=== PATIENT | female | born 1985 | race Caucasian/White ===

== ENCOUNTER 2021-04-28 21:13 | Emergency (ER) | payer OTHER ==
[2021-04-28 22:24] LABS: Absolute Lymphocytes (CBC) 2.4 K/uL (0.7-4.9); Basophils % 1.1 % (0-1.3); Hematocrit 28.6 % (36.0-45.0); Lymphocytes % 33.2 % (15.3-44.8); MPV 8.3 fL (7.6-11.3)
[2021-04-28 22:39] LABS: ALT/SGPT 20 U/L (12-78); AST/SGOT 17 U/L (15-37); Albumin 4.1 g/dL (3.4-5.0); Alkaline Phosphatase 72 U/L (45-117); BUN Blood Urea Nitrogen 24 mg/dL (7-18); Bicarbonate 30 mmol/L (21-32); Bilirubin Direct < 0.1 mg/dL (0-0.2); Bilirubin Total 0.1 mg/dL (0.2-1.0); Glucose Level 89 mg/dL (74-106); Lipase 98 U/L (73-393); NT PRO-BNP 145 pg/mL (<125); Potassium 3.6 mmol/L (3.5-5.1); Protein, Total 8.1 g/dL (6.4-8.2); Sodium Level 136 mmol/L (136-145)
[2021-04-28] MEDS ORDERED: FUROSEMIDE 40 MG/4 ML VIAL ONE (22:42)
[2021-04-28 23:26] LABS: Blood Morphology Comment NOTED (NOT SEEN); Platelet Estimate ADEQ; White Blood Cell Scan OK (OK)
[2021-04-28 23:27] LABS: Hypochromasia 1+; Polychromasia 1+
--- NOTE | 2021-04-29 01:22 | ER ---
Nurse's Notes [facility] Name: Divina Collazo Age: 35 yrs Sex: Female : 1985 Arrival Date: 04/28/2021 Time: 21:17 Bed 26 Private MD: Diagnosis: Constipation, unspecified;Unspecified cirrhosis of liver;Edema, unspecified Presentation: 04/28 21:35 Chief complaint: Patient states: abd pain/ generalized swelling. Coronavirus screen: df1 Vaccine status: Patient reports receiving the 1st dose of the Covid vaccine. The client denies any previous COVID testing. Ebola Screen: Patient negative for fever greater than or equal to 101.5 degrees Fahrenheit, and additional compatible Ebola Virus Disease symptoms Patient denies exposure to infectious person. Patient denies travel to an Ebola-affected area in the 21 days before illness onset. Initial Sepsis Screen: Does the patient meet any 2 criteria? No. Patient's initial sepsis screen is negative. Does the patient have a suspected source of infection? No. Patient's initial sepsis screen is negative. Risk Assessment: Do you want to hurt yourself or someone else? Patient reports no desire to harm self or others. Onset of symptoms was April 27, 2021. 21:35 Method Of Arrival: Ambulatory df1 21:35 Acuity: GABBY 3 df1 21:43 Note Pt states swelling in abd and BLE since yesterday. Dx with Cirrhosis last Mar df2019. Recently out of assisted and not being treated for this issue. 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 - Social history:: Smoking status: Patient reports the use of cigarette tobacco products, smokes one pack cigarettes per day. Patient uses alcohol, quit last march. street drugs, marijuana, on suboxone since Mar 2021. In recovery of alcohol, marijuana.. - Family history:: not pertinent. - Code Status:: Full code. - Hospitalizations: : No recent hospitalization is reported. Screenin:10 Abuse screen: Denies threats or abuse. Nutritional screening: No deficits noted. cc4 Tuberculosis screening: No symptoms or risk factors identified. Fall Risk None identified. Assessment: 22:10 General: Appears uncomfortable, Behavior is calm, cooperative. Pain: Complains of pain cc4 in abdomen Pain currently is 7 out of 10 on a pain scale. Neuro: No deficits noted. Level of Consciousness is awake, alert, obeys commands, Oriented to person, place, time, situation. 22:10 Respiratory: No deficits noted. Airway is patent Breath sounds are clear bilaterally. cc4 GI: Abdomen is distended, Firm \\T\\ tender. Bowel sounds present X 4 quads. Reports "normal" BM's x 2 yesterday. GI: Reports new onset of abdominal swelling \\T\\ discomfort since yesterday; ascites noted. : No signs and/or symptoms were reported regarding the genitourinary system. EENT: No signs and/or symptoms were reported regarding the EENT system. Derm: No deficits noted. No signs and/or symptoms reported regarding the dermatologic system. Reports Patient reports urinating with no difficulty. Musculoskeletal: Reports Swelling of BLE x 6 months that dissipates when elevating legs; new onset of ascites since yesterday. 22:10 GI: Firm \\T\\ tender; ascites noted. cc4 22:10 General: Reports presently taking suboxone; reports being released from assisted 4 days ago.cc4 22:17 Reassessment: Lasix 40 mg given slow IVP. cc4 22:20 General: PCXR completed per rad. tech.. cc4 23:[address]essment: Returned from CT via stretcher; voices no complaints; up \\T\\ ambulatory to cc4 BR; reports voiding x 3 with no difficulty; reports feeling better and "less tight" across abdomen. 04/29 00:15 Reassessment: Patient appears in no apparent distress at this time. Ambulatory to BR cc4 with no difficulty; reports voiding. Vital Signs: 04/28 21:35 BP 110 / 72; Pulse 94; Resp 18; Temp 98.2; Pulse Ox 100% on R/A; Weight 49.9 kg; Height df1 5 ft. 5 in. (165.10 cm); Pain 8/10; 23:45 BP 90 / 57; Pulse 88; Resp 18; Pulse Ox 99% on R/A; cc4 04/29 01:00 BP 100 / 62; Pulse 70; Resp 18; Pulse Ox 100% on R/A; cc4 02:05 BP 104 / 64; Pulse 91; Resp 20; Temp 98.4(O); Pulse Ox 100% on R/A; cc4 04/28 21:35 Body Mass Index 18.30 (49.90 kg, 165.10 cm) df1 ED Course: 04/28 21:17 Patient arrived in ED. wm 21:37 Triage completed. df1 21:58 Patient has correct armband on for positive identification. Placed in gown. Bed in low wg position. Call light in reach. Side rails up X2. Adult w/ patient. dam attendant on. Pulse ox on. NIBP on. 21:58 Labs ordered per protocol. Drawn by ED staff. cc4 21:58 Inserted saline lock: 20 gauge in right forearm, using aseptic technique. Blood wg collected. 22:00 Agustin Torres MD is Attending Physician. rn 22:15 María Childs, MATILDA is Primary Nurse. cc4 22:16 Basic Metabolic Panel Sent. cc4 22:23 XRAY Chest (1 view) In Process Unspecified. EDMS 22:23 Basic Metabolic Panel Sent. cc4 22:23 XRAY Chest (1 view) Sent. cc4 22:23 BNP Sent. cc4 22:23 Basic Metabolic Panel Sent. cc4 22:23 CBC with Diff Sent. cc4 22:23 Hepatic Function Sent. cc4 22:23 Lipase Sent. cc4 22:52 CT Abd/Pelvis - IV Contrast Only Sent. cc4 23:40 CT Abd/Pelvis - IV Contrast Only In Process Unspecified. EDMS 23:40 CT of abdomen completed per automotive tire technician. cc4 04/29 02:05 PCXR \\T\\ CT of abd completed. cc4 02:05 No provider procedures requiring assistance completed. cc4 02:05 IV discontinued, intact, bleeding controlled, No redness/swelling at site. Pressure cc4 dressing applied. Administered Medications: 02:23 Discontinued: NS 0.9% 500 ml IV at bolus once cc4 04/28 22:17 Drug: Lasix (furosemide) 40 mg Route: IVP; Site: right forearm; cc4 04/29 01:30 Drug: NS 0.9% 500 ml Route: IV; Rate: bolus; Site: right forearm; cc4 02:05 Follow up: IV Intake: 500ml cc4 01:30 Drug: Magnesium Citrate Liquid 300 ml Route: PO; cc4 02:05 Follow up: Urine output 1200 ml; Response: No adverse reaction cc4 Intake: 02:05 IV: 500ml; Total: 500ml. cc4 Output: 02:05 Urine: 1200ml; Total: 1200ml. cc4 Outcome: 01:21 Discharge ordered by . rn 02:05 Discharged to home with significant other. cc4 02:05 Condition: improved 02:05 Discharge instructions given to patient, Instructed on discharge instructions, follow up and referral plans. Demonstrated understanding of instructions, follow-up care. 02:26 Patient left the ED. cc4 Signatures: Dispatcher [employer] EDMS Agustin Torres MD MD rn Marsh, Wendy wm Gamba, Liam, RN wg Cooper, Christie, RN RN cc4 Elise Lozano df1 Corrections: (The following items were deleted from the chart) 00:02 04/28 22:45 BP 90 / 57; Pulse 88bpm; Resp 18bpm; Pulse Ox 99% RA; cc4 cc4
--- NOTE | 2021-04-29 01:22 | EDPHYS ---
Physician Documentation [facility] Name: Divina Collazo Age: 35 yrs Sex: Female : 1985 Arrival Date: 04/28/2021 Time: 21:17 Bed 26 Private MD: ED Physician Agustin Torres HPI: 04/28 23:57 This 35 yrs old Female presents to ER via Ambulatory with complaints of rn Abdominal Swelling, Cirrhosis of the liver. 23:57 Patient reports abdominal swelling and swelling of legs, has cirrhosis of the liver, rn diagnosed 1 year ago, states fluid slowly building up. Denies fever. Denies abdominal pain. No vomiting. No blood in stool. Not currently taking any diuretic. Told to follow-up with GI and she has not.. Onset: The symptoms/episode began/occurred at an unknown time. Severity of symptoms: At their worst the symptoms were moderate in the emergency department the symptoms are unchanged. The patient has experienced a previous episode. The patient has not recently seen a physician. Reports just got out of prison and is seeking care now.. 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 - Social history:: Smoking status: Patient reports the use of cigarette tobacco products, smokes one pack cigarettes per day. Patient uses alcohol, quit last march. street drugs, marijuana, on suboxone since Mar 2021. In recovery of alcohol, marijuana.. - Family history:: not pertinent. - Code Status:: Full code. - Hospitalizations: : No recent hospitalization is reported. ROS: 23:57 Constitutional: Negative for fever, chills, and weight loss, Eyes: Negative for injury, rn pain, redness, and discharge, ENT: Negative for injury, pain, and discharge, Neck: Negative for injury, pain, and swelling, Cardiovascular: Positive for edema bilateral lower extremities. Denies chest pain Respiratory: Negative for shortness of breath, cough, wheezing, and pleuritic chest pain, Abdomen/GI: Negative for abdominal pain/nausea/vomiting/diarrhea. Positive for abdominal swelling : Negative for injury, bleeding, discharge, and swelling, MS/Extremity: 1+ pitting edema bilateral lower extremities with equal circumference Skin: Negative for injury, rash, and discoloration, Neuro: Negative for headache, weakness, numbness, tingling, and seizure. Exam: 23:58 Constitutional: Thin female with protuberant abdomen and in no acute distress rn Head/Face: Normocephalic, atraumatic. Eyes: Periorbital areas with no swelling, redness, or edema. ENT: No stridor Cardiovascular: Regular rate and rhythm. No pulse deficits. Respiratory: Speaking full sentences, unlabored. No increased work of breathing, no retractions or nasal flaring. Abdomen/GI: Soft, positive fluid wave, no peritoneal signs, no masses Skin: Warm, dry with normal turgor. Normal color with no rashes, no lesions, and no evidence of cellulitis. MS/ Extremity: Pulses equal, no cyanosis. Neurovascular intact. Full, normal range of motion. Equal circumference. 1+ pitting edema bilateral lower extremities Neuro: Awake and alert, GCS 15 Vital Signs: 21:35 BP 110 / 72; Pulse 94; Resp 18; Temp 98.2; Pulse Ox 100% on R/A; Weight 49.9 kg; Height df1 5 ft. 5 in. (165.10 cm); Pain 8/10; 23:45 BP 90 / 57; Pulse 88; Resp 18; Pulse Ox 99% on R/A; cc4 04/29 01:00 BP 100 / 62; Pulse 70; Resp 18; Pulse Ox 100% on R/A; cc4 02:05 BP 104 / 64; Pulse 91; Resp 20; Temp 98.4(O); Pulse Ox 100% on R/A; cc4 04/28 21:35 Body Mass Index 18.30 (49.90 kg, 165.10 cm) df1 MDM: 04/28 22:00 Patient medically screened. rn 04/29 01:19 Differential Diagnosis constipation, ascites, cirrhosis, edema. Data reviewed: vital rn signs, nurses notes, lab test result(s), radiologic studies, CT scan, and as a result, I will discharge patient. Counseling: I had a detailed discussion with the patient and/or guardian regarding: the historical points, exam findings, and any diagnostic results supporting the discharge/admit diagnosis, lab results, radiology results, the need for outpatient follow up, to return to the emergency department if symptoms worsen or persist or if there are any questions or concerns that arise at home. Response to treatment: the patient's symptoms have mildly improved after treatment, and as a result, I will discharge patient. Special discussion: Based on the patient's Hx, exam, and Dx evaluation, there is no indication for emergent surgery or inpatient Tx. It is understood by the patient/guardian that if the Sx's persist or worsen they need to return immediately for re-evaluation. I discussed with the patient/guardian in detail that at this point there is no indication for admission to the hospital. It is understood, however, that if the symptoms persist or worsen the patient needs to return immediately for re-evaluation. ED course: CT does not show any ascites. Most of her fluid is on the lower extremities. CT does show marked constipation that could explain abdominal distention without any tenderness. Patient states has gone to the bathroom a few times here now and abdomen seems decompressed. Sleeping comfortably without complaints. Will DC home to continue hydration and laxatives. Return precautions given and understood. 04/28 22:11 Order name: Basic Metabolic Panel rn 04/28 22: Order name: CBC with Diff; Complete Time: 23:52 rn 04/28 22: Order name: Hepatic Function; Complete Time: 23:52 rn 04/28 22:11 Order name: Lipase; Complete Time: 23:52 rn 04/28 22:11 Order name: BNP; Complete Time: 23:52 rn 04/28 22:11 Order name: Basic Metabolic Panel; Complete Time: 23:52 EDMS 04/28 22:11 Order name: IV Saline Lock; Complete Time: 22:23 rn 04/28 22:11 Order name: Labs collected and sent; Complete Time: 22:23 rn 04/28 22: Order name: CT Abd/Pelvis - IV Contrast Only rn 04/28 22:11 Order name: XRAY Chest (1 view) rn 04/28 22:27 Order name: CBC Smear Scan; Complete Time: 23:52 EDMS Administered Medications: 02:23 Discontinued: NS 0.9% 500 ml IV at bolus once cc4 04/28 22:17 Drug: Lasix (furosemide) 40 mg Route: IVP; Site: right forearm; cc4 04/29 01:30 Drug: NS 0.9% 500 ml Route: IV; Rate: bolus; Site: right forearm; cc4 02:05 Follow up: IV Intake: 500ml cc4 01:30 Drug: Magnesium Citrate Liquid 300 ml Route: PO; cc4 02:05 Follow up: Urine output 1200 ml; Response: No adverse reaction cc4 Disposition Summary: 04/29/21 01:21 Discharge Ordered Location: Home rn Problem: new rn Symptoms: have improved rn Condition: Stable rn Diagnosis - Constipation, unspecified rn - Unspecified cirrhosis of liver rn - Edema, unspecified rn Followup: rn - With: Private Physician - When: As needed - Reason: Recheck today's complaints, Re-evaluation by your physician Discharge Instructions: - Discharge Summary Sheet rn - Cirrhosis rn - Constipation, Adult rn - Peripheral Edema rn Forms: - Medication Reconciliation Form rn - Thank You Letter rn - Antibiotic technology development intern - Prescription Opioid Use rn Signatures: Dispatcher [employer] EDAgustin Best MD MD rn Cooper, Christie, RN RN cc4 Elise Lozano df1
[2021-04-29] MEDS ORDERED: NA CHLORIDE 0.9% 500 ML ONE (01:58)
[2021-04-29] MEDS ORDERED: MAGNESIUM CITRATE 300 ML BOT ONE (01:58)
[2021-04-29 02:46] VITALS: O2SAT 100
[2021-04-29 02:47] VITALS: BP 104/64; TEMP 98.4
--- NOTE | 2021-04-29 07:57 | RAD REPORT ---
EXAM DESCRIPTION: RAD - Chest Single View - 04/28/2021 10:23 pm CLINICAL HISTORY: cirrhosis COMPARISON: No comparisons FINDINGS: Lines: None. Lungs: No evidence of edema or pneumonia. Pleural: No significant pleural effusions or pneumothorax. Cardiac: The heart size is within normal limits. Bones: No acute fractures. Scoliosis. Other: IMPRESSION: No acute cardiopulmonary disease.
--- NOTE | 2021-04-29 16:53 | RAD REPORT ---
EXAM DESCRIPTION: CT - Abdomen Pelvis W Contrast - 04/29/2021 6:42 am CLINICAL HISTORY: Abd swelling, cirrhosis COMPARISON: None. TECHNIQUE: CT ABDOMEN PELVIS WITH IV CONTRAST on 04/28/2021 10:11 PM CDT This exam was performed according to our departmental dose-optimization program, which includes autom ated exposure control, adjustment of the mA and/or kV according to patient size and/or use of iterati ve reconstruction technique. FINDINGS: Lower lungs are clear. Abdomen: The liver is normal in appearance. There is no biliary dilatation. Gallbladder is normal in appearance. The pancreas and spleen are normal in appearance. The adrenal glands and kidneys are unre markable. Abdominal aorta is normal in course and caliber without aneurysm. There is no free air. There is no r etroperitoneal adenopathy. Pelvis: There is large amount of stool throughout the colon. Urinary bladder is unremarkable. There i s no free fluid. Uterus is normal in size. Appendix is normal. Skeleton: There are no acute osseous findings. No suspicious bony lesions. IMPRESSION: Constipation. Electronically signed by: Сергей Staples MD 04/28/2021 11:58 PM CDT Due to temporary technical issues with the PACS/Fluency reporting system, reports are being signed by the in house radiologists without review as a courtesy to insure prompt reporting. The interpreting radiologist is fully responsible for the content of the report.
== END 2021-04-29 02:26 | disposition home or self-care (01) ==
LOC: ER 21:13
DX: K59.00 Constipation, unspecified (principal); K74.60 Unspecified cirrhosis of liver; I10 Essential (primary) hypertension; E11.9 Type 2 diabetes mellitus without complications; F17.210 Nicotine dependence, cigarettes, uncomplicated
CPT/HCPCS: 85025; 80048; 36415; 80076; 83690; 83880; 74177; 71045; 96374; 99284; Q9967; J1940; J7040

== ENCOUNTER 2021-10-26 21:02 | Emergency (ER) | payer OTHER ==
--- OUTSIDE RECORDS SUMMARY | 2021-10-26 21:12 | XMS REPORT | Continuity of Care Document ---
:[address] [facility] t Address [address] [place] [address] Care Team Providers Name Role Phone Pcp, Does Not Have A Primary Care Physician Yuri HOPKINS Attending Clinician Unavailable Sandeep PITT, Yuri Attending Clinician Sameera Eisenberg DO Attending Clinician Sameera EISENBERG Attending Clinician Unavailable James PAC, S Attending Clinician DC, S Attending Clinician Unavailable Doctor Unassigned, Name Attending Clinician Unavailable Trevon RUBY Attending Clinician Singer BURKS Attending Clinician Attending Clinician Unavailable BAYLEE COTTON Attending Clinician Unavailable Zeus RUBY Attending Clinician Andrés Sherwood MD Attending Clinician Andrés SHERWOOD Attending Clinician Unavailable Luis Galindo Attending Clinician Luis PAIZ Attending Clinician Unavailable Bhanu CHUN Attending Clinician Unavailable BAYLEE COTTON Admitting Clinician Unavailable Luis PAIZ Admitting Clinician Unavailable Payers Payer Name Policy Type Policy Number Effective Date Expiration Date Benigno sena [facility] [id number] 2020 00:00:00 Problems Condition Condition Condition Status Onset Resolution Last Treating Co mments Source Name Details Category Date Date Treatment Clinician Date ABD PAIN Diagnosis Active 2020-09-13 M emoria 09-13 13:06:00 l ABD PAIN 00:00: Rehan n 00 Active 09/13/2020 [facility] [place] CIRRHOSIS Diagnosis Active 2020-09-14 Memoria 09-13 15:28:00 l 00:00: [place] CIRRHOSIS 00 Active 09/13/2020 [facility] [place] FOOT PAIN Diagnosis Active 2020-01-27 Memoria 01-26 17:42:00 l FOOT 00:00: [place] PAIN 00 Active 01/27/2020 [facility] [place] UNSPECIFIE Diagnosis Active 2020-09-14 Memoria D 15:28:00 l CIRRHOSIS [place] OF LIVER UNSPECIFIE D CIRRHOSIS OF LIVER Active [facility] No known No known Disease Unive rs active active ity of problems problems [facility] History of Past Illness Condition Condition Condition Status Onset Resolution Last Treating Co mments Source Name Details Category Date Date Treatment Clinician Date Contusion Problem 2020-01-29 2020-01-29 Memoria of left 01-26 22:22:21 22:22:21 l foot, 17:00: [place] initial Contusion 00 encounter of left foot, initial encounter 01/27/2020 01/29/2020 [facility] Allergies, Adverse Reactions, Alerts Allergy Allergy Status Severity Reaction(s) Onset Inactive Treating Comm ents Source Name Type Date Date Clinician Propoxyp Propensi Active Hives Univer s hene ty to 8-06 ity of N-Acetam adverse 00:00: [place] inophen reaction 00 Medical s Branch PROPOXYP DRUG Active Hives Univers HENE 8-06 ity of N-ACETAM 00:00: [place] INOPHEN 00 Medical Branch Darvocet Darvocet Active Memori a -N 100 -N 100 l [place] Social History Social Habit Start Date Stop Date Quantity Comments Source Exposure to Yes [facility] SARS-CoV-2 (event) Medica l Branch Social History 2020-09-14 2020-09-14 [facility] 03:06:05 03:06:05 Sex Ass[birth year] At [birth year] [facility] 00:00:00 00:00:00 Medical Branch Smoking Status Start Date Stop Date Source Unknown if ever smoked [facility] Medications Ordered Filled Start Stop Current Ordering Indication Dosage Frequency Signature Comments Components Source Medication Medication Date Date Medication? Clinician (SIG) Name Name naproxen 2020- No 500mg 500 mg, Univ ers (NAPROSYN) 03-18 Oral, ity of tablet 500 08:30: 07:45 ONCE, 1 [place] as mg 00 :00 dose, [facility] 03/18/21 at Branch 0330, Routine naproxen 2020- No 500mg 500 mg, Univ ers (NAPROSYN) 03-18 Oral, ity of tablet 500 08:30: 07:45 ONCE, 1 [place] as mg 00 :00 dose, [facility] 03/18/21 at Branch 0330, Routine ketorolac 2020- No 15mg 15 mg, Unive rs (TORADOL) 03-13 Slow IV ity of injection 21:32: 21:44 Push, [place] 15 mg 00 :00 ONCE, 1 Medical dose, Sat [place] 03/13/21 at 1645, AUSTEN
Fa culty member approving Restricted medication : MAGUIJONN LAMAELIJAH ketorolac 2020- No 15mg 15 mg, Unive rs (TORADOL) 03-13 Slow IV ity of injection 21:32: 21:44 Push, [place] 15 mg 00 :00 ONCE, 1 Medical dose, Sat Branch 03/13/21 at 1645, AUSTEN
Fa culty member approving Restricted medication : MAGUISANDY LAMA ibuprofen Yes [id number] 600mg Take 1 U nivers 600 mg 8-28 tablet by ity of tablet 00:00: mouth [place] 00 every 6 Medical (six) Branch hours as needed for Pain (scale 4-6). ibuprofen Yes [id number] 600mg Take 1 U nivers 600 mg 8-28 tablet by ity of tablet 00:00: mouth [place] 00 every 6 Medical (six) Branch hours as needed for Pain (scale 4-6). ibuprofen 2020-0 Yes [id number] 600mg Take 1 U nivers 600 mg 8-28 tablet by ity of tablet 00:00: mouth [place] 00 every 6 Medical (six) Branch hours as needed for Pain (scale 4-6). ibuprofen 2020-0 Yes [id number] 600mg Take 1 U nivers 600 mg 8-28 tablet by ity of tablet 00:00: mouth [place] 00 every 6 Medical (six) Branch hours as needed for Pain (scale 4-6). ibuprofen Yes [id number] 600mg Take 1 U nivers 600 mg 8-28 tablet by ity of tablet 00:00: mouth [place] 00 every 6 Medical (six) Branch hours as needed for Pain (scale 4-6). ibuprofen Yes [id number] 600mg Take 1 U nivers 600 mg 8-28 tablet by ity of tablet 00:00: mouth [place] 00 every 6 Medical (six) Branch hours as needed for Pain (scale 4-6). ibuprofen Yes [id number] 600mg Take 1 U nivers 600 mg 8-28 tablet by ity of tablet 00:00: mouth [place] 00 every 6 Medical (six) Branch hours as needed for Pain (scale 4-6). iopamidol 2020- No [id number] 100mL 100 mL, Univers (ISOVUE 5- 05-07 Intravenou ity o f 370-500 mL) 09:48: 10:00 s, ONCE, 1 [place] injection 00 :00 dose, Fri Medic al 100 mL 11/20/20 at Branch 0500, Routine iopamidol 2020- No [id number] 100mL 100 mL, Univers (ISOVUE 5-07 05-07 Intravenou ity o f 370-500 mL) 09:48: 10:00 s, ONCE, 1 [place] injection 00 :00 dose, Fri Medic al 100 mL 11/20/20 at Branch 0500, Routine ferrous Yes Acute on 325mg Take 1 Uni vers sulfate 5-07 chronic tablet by ity of (IRON) 325 00:00: anemia mouth 3 [place] mg (65 mg 00 (three) Medical iron) times Branch tablet daily with meals. ferrous Yes [id number] 325mg Take 1 Un frida sulfate 5-07 tablet by ity of (IRON) 325 00:00: mouth [place] mg (65 mg 00 (three) Medical iron) times Branch tablet daily with meals. ferrous 2020-0 Yes [id number] 325mg Take 1 Un frida sulfate 5-07 tablet by ity of (IRON) 325 00:00: mouth [place] mg (65 mg 00 (three) Medical iron) times Branch tablet daily with meals. ferrous Yes [id number] 325mg Take 1 Un frida sulfate 5-07 tablet by ity of (IRON) 325 00:00: mouth [place] mg (65 mg 00 (three) Medical iron) times Branch tablet daily with meals. ferrous Yes [id number] 325mg Take 1 Un frida sulfate 5-07 tablet by ity of (IRON) 325 00:00: mouth [place] mg (65 mg 00 (three) Medical iron) times Branch tablet daily with meals. ferrous Yes [id number] 325mg Take 1 Un frida sulfate 5-07 tablet by ity of (IRON) 325 00:00: mouth [place] mg (65 mg 00 (three) Medical iron) times Branch tablet daily with meals. ferrous Yes [id number] 325mg Take 1 Un fr[place] sulfate 5-07 tablet by ity of (IRON) 325 00:00: mouth [place] mg (65 mg 00 (three) Medical iron) times Branch tablet daily with meals. ferrous Yes [id number] 325mg Take 1 Un frida sulfate 5-07 tablet by ity of (IRON) 325 00:00: mouth [place] mg (65 mg 00 (three) Medical iron) times Branch tablet daily with meals. ferrous Yes [id number] 325mg Take 1 Un frida sulfate 5-07 tablet by ity of (IRON) 325 00:00: mouth [place] mg (65 mg 00 (three) Medical iron) times Branch tablet daily with meals. Chlordiazep 0 No 50 mg, 2 Me moria oxide 3-03 cap, l 22:00: Route: PO, Drug form: CAP, Q24H, Dosing Weight 50, kg, Start date: 09/16/20 16:00:00 UX VISUAL DESIGNER, Duration: 24 hr, Stop date: 09/16/20 16:00:00 UX VISUAL DESIGNER, 0 Chlordiazep 0 No 50 mg, 2 Me moria oxide 3-03 cap, l 22:00: Route: PO, Drug form: CAP, Q24H, Dosing Weight 50, kg, Start date: 09/16/20 16:00:00 UX VISUAL DESIGNER, Duration: 24 hr, Stop date: 09/16/20 16:00:00 UX VISUAL DESIGNER, 0 Chlordiazep 2021-0 No 50 mg, 2 Me moria oxide 3-03 cap, l 22:00: Route: PO, [place] 00 Drug form: CAP, Q24H, Dosing Weight 50, kg, Start date: 09/16/20 16:00:00 UX VISUAL DESIGNER, Duration: 24 hr, Stop date: 09/16/20 16:00:00 UX VISUAL DESIGNER, 0 Chlordiazep 2021-0 No 50 mg, 2 Me moria oxide 3-03 cap, l 03:00: Route: PO, [place] 00 Drug form: CAP, Q12H, Dosing Weight 50, kg, Start date: 09/15/20 21:00:00 UX VISUAL DESIGNER, Duration: 24 hr, Stop date: 09/16/20 9:00:00 UX VISUAL DESIGNER, 0 Chlordiazep 2021-0 No 50 mg, 2 Me moria oxide 3-03 cap, l 03:00: Route: PO, [place] 00 Drug form: CAP, Q12H, Dosing Weight 50, kg, Start date: 09/15/20 21:00:00 UX VISUAL DESIGNER, Duration: 24 hr, Stop date: 09/16/20 9:00:00 UX VISUAL DESIGNER, 0 Chlordiazep 2021-0 No 50 mg, 2 Me moria oxide 3-03 cap, l 03:00: Route: PO, [place] 00 Drug form: CAP, Q12H, Dosing Weight 50, kg, Start date: 09/15/20 21:00:00 UX VISUAL DESIGNER, Duration: 24 hr, Stop date: 09/16/20 9:00:00 UX VISUAL DESIGNER, 0 remove 2020- No Notes: Memoria patch 3-02 Remove old l 15:00: patch [place] before applicatio n of new patch. WASTE: F/P - P Waste Black; E - P Waste Black remove No Notes: Memoria patch 3-02 Remove old l 15:00: patch [place] 00 before applicatio n of new patch. WASTE: F/P - P Waste Black; E - P Waste Black remove 2020- No Notes: Memoria patch 3-02 Remove old l 15:00: patch [place] 00 before applicatio n of new patch. WASTE: F/P - P Waste Black; E - P Waste Black Chlordiazep No 50 mg, 2 Me moria oxide 3-01 cap, l 22:00: Route: PO, [place] 00 Drug form: CAP, Q8H, Dosing Weight 50, kg, Start date: 09/14/20 16:00:00 UX VISUAL DESIGNER, Duration: 24 hr, Stop date: 09/15/20 8:00:00 UX VISUAL DESIGNER, 0 Chlordiazep 0 No 50 mg, 2 Me moria oxide 3-01 cap, l 22:00: Route: PO, Drug form: CAP, Q8H, Dosing Weight 50, kg, Start date: 09/14/20 16:00:00 UX VISUAL DESIGNER, Duration: 24 hr, Stop date: 09/15/20 8:00:00 UX VISUAL DESIGNER, 0 Chlordiazep 0 No 50 mg, 2 Me moria oxide 3-01 cap, l 22:00: Route: PO, Drug form: CAP, Q8H, Dosing Weight 50, kg, Start date: 09/14/20 16:00:00 UX VISUAL DESIGNER, Duration: 24 hr, Stop date: 09/15/20 8:00:00 UX VISUAL DESIGNER, 0 Folic Acid No Notes: Memor ia 3- (Same as: l 15:00: Folvite) multivitami No 1 tab, Theo makayla n 3- Route: PO, l 15:00: Dosing Weight 50, kg, Daily, Start date: 09/14/20 9:00:00 UX VISUAL DESIGNER, Duration: 5 day, Stop date: 09/18/20 9:00:00 UX VISUAL DESIGNER Thiamine No Notes: Memoria 3- (Same As: l 15:00: Vitamin B1) multivitami No Notes: Theo makayla n with 3- (Same l minerals 15:00: as:Thera-M Her berkowitz 00 , Theragran- M) WASTE: F/P - Black; E - Municipal Trash Bin Give with food. Folic Acid No Notes: Memor ia 3- (Same as: l 15:00: Folvite) multivitami No 1 tab, Theo makayla n 3-01 Route: PO, l 15:00: Dosing [place] Weight 50, kg, Daily, Start date: 09/14/20 9:00:00 UX VISUAL DESIGNER, Duration: 5 day, Stop date: 09/18/20 9:00:00 UX VISUAL DESIGNER Thiamine No Notes: Memoria 3-01 (Same As: l 15:00: Vitamin [place] 00 B1) multivitami No Notes: Theo makayla n with 3- (Same l minerals 15:00: as:Thera-Christopher Dudley berkowitz 00 , Theragran- M) WASTE: F/P - Black; E - Municipal Trash Bin Give with food. Folic Acid No Notes: Memor ia 3- (Same as: l 15:00: Folvite) multivitami No 1 tab, Theo makayla n 3- Route: PO, l 15:00: Dosing [place] 00 Weight 50, kg, Daily, Start date: 09/14/20 9:00:00 UX VISUAL DESIGNER, Duration: 5 day, Stop date: 09/18/20 9:00:00 UX VISUAL DESIGNER Thiamine No Notes: Memoria 3- (Same As: l 15:00: Vitamin [place] 00 B1) multivitami No Notes: Theo makayla n with 3- (Same l minerals 15:00: as:Thera-Christopher Dudley berkowitz 00 , Theragran- M) WASTE: F/P - Black; E - Municipal Trash Bin Give with food. Nicotine No Notes: Memoria 3- (Same as: l 14:27: Habitrol) "Remove old patch before applicatio n of new patch" WASTE: F/P - P Waste Black; E - P Waste Black Nicotine No Notes: Memoria 3- (Same as: l 14:27: Habitrol) "Remove old patch before applicatio n of new patch" WASTE: F/P - P Waste Black; E - P Waste Black Nicotine No Notes: Memoria 3- (Same as: l 14:27: Habitrol) "Remove old patch before applicatio n of new patch" WASTE: F/P - P Waste Black; E - P Waste Black Potassium No Notes: Memori a Chloride 3-01 (Same as: l 1.33 MEQ/ML 11:00: Potassium [place] Oral 00 Chloride) Solution Potassium No Notes: Memori a Chloride 3-01 (Same as: l 1.33 MEQ/ML 11:00: Potassium [place] Oral 00 Chloride) Solution Potassium No Notes: Memori a Chloride 3-01 (Same as: l 1.33 MEQ/ML 11:00: Potassium H [place] Oral 00 Chloride) Solution influenza No Notes: Memori a virus 3-01 (Same as: l vaccine, 02:50: Fluzone Rehan n inactivated 16 Quadrivale nt, Fluarix Quadrivale nt) For patients 6 - 35 months of age (0.5 mL IM) For 3 years of age and older (0.5 mL IM) Shake well before use influenza No Notes: Memori a virus 3-01 (Same as: l vaccine, 02:50: Fluzone Rehan n inactivated 16 Quadrivale nt, Fluarix Quadrivale nt) For patients 6 - 35 months of age (0.5 mL IM) For 3 years of age and older (0.5 mL IM) Shake well before use influenza No Notes: Memori a virus 3-01 (Same as: l vaccine, 02:50: Fluzone Rehan n inactivated 16 Quadrivale nt, Fluarix Quadrivale nt) For patients 6 - 35 months of age (0.5 mL IM) For 3 years of age and older (0.5 mL IM) Shake well before use Chlordiazep No 50 mg, 2 Me moria oxide 3-01 cap, l 00:00: Route: PO, Drug form: CAP, Q6H, Dosing Weight 50, kg, Start date: 09/13/20 18:00:00 UX VISUAL DESIGNER, Duration: 24 hr, Stop date: 09/14/20 12:00:00 UX VISUAL DESIGNER, 0 Chlordiazep No 50 mg, 2 Me moria oxide 3-01 cap, l 00:00: Route: PO, Drug form: CAP, Q6H, Dosing Weight 50, kg, Start date: 09/13/20 18:00:00 UX VISUAL DESIGNER, Duration: 24 hr, Stop date: 09/14/20 12:00:00 UX VISUAL DESIGNER, 0 Chlordiazep No 50 mg, 2 Me moria oxide 3 cap, l 00:00: Route: PO, Drug form: CAP, Q6H, Dosing Weight 50, kg, Start date: 09/13/20 18:00:00 UX VISUAL DESIGNER, Duration: 24 hr, Stop date: 09/14/20 12:00:00 UX VISUAL DESIGNER, 0 cefepime No Notes: Memoria 09-13 (Same As: l 22:00: Maxipime) MEDICATION WASTE Product Size: 1000 mg Product Wasted: ___ mg cefepime No Notes: Memoria 09-13 (Same As: l 22:00: Maxipime) MEDICATION WASTE Product Size: 1000 mg Product Wasted: ___ mg cefepime No Notes: Memoria 09-13 (Same As: l 22:00: Maxipime) MEDICATION WASTE Product Size: 1000 mg Product Wasted: ___ mg Lorazepam No Notes: Memori a - (Same as: l 21:44: Ativan) Lorazepam No Notes: Memori a 2- (Same as: l 21:44: Ativan) Lorazepam No Notes: Memori a 2- (Same as: l 21:44: Ativan) Lactated No 1,000 mL, Theo makayla Ringers IV 09-13 Rate: 125 l 1,000 mL 21:32: ml/hr, Infuse over: 8 hr, Route: IV, Dosing Weight 50 kg, Total Volume: 1,000, Start date: 09/13/20 15:32:00 UX VISUAL DESIGNER, 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, Stop date: 10/13/20 15:31:00 CDT, 1.53, m2, 0 Ondansetron No Notes: Theo makayla - (Same as: l 21:32: Zofran) MEDICATION WASTE Product Size: 4 mg Product Wasted: ___ mg Hydromorpho No Notes: Theo makayla ne 2-28 Same as: l 21:32: Dilaudid [place] 00 Lactated No 1,000 mL, Theo makayla Ringers IV 09-13 Rate: 125 l 1,000 mL 21:32: ml/hr, [place] 00 Infuse over: 8 hr, Route: IV, Dosing Weight 50 kg, Total Volume: 1,000, Start date: 09/13/20 15:32:00 UX VISUAL DESIGNER, 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, Stop date: 10/13/20 15:31:00 CDT, 1.53, m2, 0 Ondansetron No Notes: Theo makayla 2-28 (Same as: l 21:32: Zofran) MEDICATION WASTE Product Size: 4 mg Product Wasted: ___ mg Hydromorpho No Notes: Theo makayla ne 2-28 Same as: l 21:32: Dilaudid [place] Lactated No 1,000 mL, Theo makayla Ringers IV 09-13 Rate: 125 l 1,000 mL 21:32: ml/hr, [place] 00 Infuse over: 8 hr, Route: IV, Dosing Weight 50 kg, Total Volume: 1,000, Start date: 09/13/20 15:32:00 UX VISUAL DESIGNER, 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, Stop date: 10/13/20 15:31:00 CDT, 1.53, m2, 0 Ondansetron No Notes: Theo makayla 2-28 (Same as: l 21:32: Zofran) [place] 00 MEDICATION WASTE Product Size: 4 mg Product Wasted: ___ mg Hydromorpho No Notes: Theo makayla ne 2-28 Same as: l 21:32: Dilaudid [place] Ceftriaxone No Notes: Theo makayla 2-28 (Same As: l 21:18: Rocephin). Use with 100 mL NS and infuse over 30 min MEDICATION WASTE Product Size: 1000 mg Product Wasted: ___ mg Ceftriaxone No Notes: Theo makayla 2-28 (Same As: l 21:18: Rocephin). [place] 00 Use with 100 mL NS and infuse over 30 min MEDICATION WASTE Product Size: 1000 mg Product Wasted: ___ mg Ceftriaxone No Notes: Theo makayla 2-28 (Same As: l 21:18: Rocephin). [place] 00 Use with 100 mL NS and infuse over 30 min MEDICATION WASTE Product Size: 1000 mg Product Wasted: ___ mg Saline No Notes: Memoria Flush 0.9% 2-28 (Same as: l 18:46: BD [place] 00 Posiflush) Sodium No 1,000 mL, Memori a Chloride 2-28 1000 l 0.9% 18:46: ml/hr, [place] (Bolus) IV 00 Infuse Over: 1 hr, Route: IV, 1,000, Drug form: INJ, ONCE, Priority: STAT, Dosing Weight 50 kg, Start date: 09/13/20 12:46:00 UX VISUAL DESIGNER, Stop date: 09/13/20 12:46:00 UX VISUAL DESIGNER, 0 Morphine No Notes: Memoria 2-28 (Same l 18:46: as:MORPhin [place] 00 e Sulfate) Ondansetron No Notes: Theo makayla 2-28 (Same as: l 18:46: Zofran) [place] 00 MEDICATION WASTE Product Size: 4 mg Product Wasted: ___ mg Saline No Notes: Memoria Flush 0.9% 2-28 (Same as: l 18:46: BD [place] 00 Posiflush) Sodium No 1,000 mL, Memori a Chloride 2-28 1000 l 0.9% 18:46: ml/hr, [place] (Bolus) IV 00 Infuse Over: 1 hr, Route: IV, 1,000, Drug form: INJ, ONCE, Priority: STAT, Dosing Weight 50 kg, Start date: 09/13/20 12:46:00 UX VISUAL DESIGNER, Stop date: 09/13/20 12:46:00 UX VISUAL DESIGNER, 0 Morphine No Notes: Memoria 2-28 (Same l 18:46: as:MORPhin [place] 00 e Sulfate) Ondansetron No Notes: Theo makayla 2-28 (Same as: l 18:46: Zofran) [place] MEDICATION WASTE Product Size: 4 mg Product Wasted: ___ mg Saline No Notes: Memoria Flush 0.9% 2-28 (Same as: l 18:46: BD [place] 00 Posiflush) Sodium No 1,000 mL, Memori a Chloride 2-28 1000 l 0.9% 18:46: ml/hr, [place] (Bolus) IV 00 Infuse Over: 1 hr, Route: IV, 1,000, Drug form: INJ, ONCE, Priority: STAT, Dosing Weight 50 kg, Start date: 09/13/20 12:46:00 UX VISUAL DESIGNER, Stop date: 09/13/20 12:46:00 UX VISUAL DESIGNER, 0 Morphine No Notes: Memoria 2-28 (Same l 18:46: as:MORPhin [place] 00 e Sulfate) Ondansetron No Notes: Theo makayla 2-28 (Same as: l 18:46: Zofran) [place] MEDICATION WASTE Product Size: 4 mg Product Wasted: ___ mg ondansetron 2019-07 2020- No 4mg 4 mg, [facility] [place] (ZOFRAN-ODT 07-22 Oral, ity of ) 23:22: 23:22 ONCE, 1 [place] disintegrat 00 :00 dose, Fri Med ical ing tablet 05/22/20 at [facility] 4 mg 1730, [place]EN ondansetron 2019-07 Yes Opioid 4mg Take 1 Un frida 4 mg 1-06 withdrawal tablet by ity of disintegrat 00:00: mouth [place] ing tablet 00 every 8 Medica l (eight) Branch hours as needed for Nausea and Vomiting (N/V). ondansetron 2019-07 Yes [id number] 4mg Take 1 Univers 4 mg 1-06 tablet by ity of disintegrat 00:00: mouth [place] ing tablet 00 every 8 Medica l (eight) Branch hours as needed for Nausea and Vomiting (N/V). ondansetron 2019-07 Yes [id number] 4mg Take 1 Univers 4 mg 1-06 tablet by ity of disintegrat 00:00: mouth [place] ing tablet 00 every 8 Medica l (eight) Branch hours as needed for Nausea and Vomiting (N/V). ondansetron 2019-07 Yes [id number] 4mg Take 1 Univers 4 mg 1-06 tablet by ity of disintegrat 00:00: mouth [place] ing tablet 00 every 8 Medica l (eight) Branch hours as needed for Nausea and Vomiting (N/V). ondansetron 2019-07 Yes [id number] 4mg Take 1 Univers 4 mg 1-06 tablet by ity of disintegrat 00:00: mouth [place] ing tablet 00 every 8 Medica l (eight) Branch hours as needed for Nausea and Vomiting (N/V). ondansetron 2019-07 Yes [id number] 4mg Take 1 Univers 4 mg 1-06 tablet by ity of disintegrat 00:00: mouth [place] ing tablet 00 every 8 Medica l (eight) Branch hours as needed for Nausea and Vomiting (N/V). ondansetron 2019-07 Yes [id number] 4mg Take 1 Univers 4 mg 1-06 tablet by ity of disintegrat 00:00: mouth [place] ing tablet 00 every 8 Medica l (eight) Branch hours as needed for Nausea and Vomiting (N/V). ondansetron 2019-07 Yes [id number] 4mg Take 1 Univers 4 mg 1-06 tablet by ity of disintegrat 00:00: mouth [place] ing tablet 00 every 8 Medica l (eight) Branch hours as needed for Nausea and Vomiting (N/V). ondansetron 2019-07 Yes [id number] 4mg Take 1 Univers 4 mg 1-06 tablet by ity of disintegrat 00:00: mouth [place] ing tablet 00 every 8 Medica l (eight) Branch hours as needed for Nausea and Vomiting (N/V). ondansetron 2019-07 Yes [id number] 4mg Take 1 Univers 4 mg 1-06 tablet by ity of disintegrat 00:00: mouth [place] ing tablet 00 every 8 Medica l (eight) Branch hours as needed for Nausea and Vomiting (N/V). traMADoL 0 2020- No 50mg 50 mg, Univer s (ULTRAM) 916 09-16 Oral, ONCE ity of tablet 50 19:15: 18:30 NOW, 1 [place] mg 00 :00 dose, [facility] 04/01/20 at Branch 1415, Routine Motrin 600 2019-0 Yes 600 mg = 1 M emoria mg oral 7-13 tab, PO, l tablet 23:27: Q6H, X 5 [place] 00 day, # 20 tab, 0 Refill(s) Motrin 600 2020-0 Yes 600 mg = 1 M emoria mg oral 7-13 tab, PO, l tablet 23:27: Q6H, X 5 [place] 00 day, # 20 tab, 0 Refill(s) Motrin 600 2020-0 Yes 600 mg = 1 M emoria mg oral 7-13 tab, PO, l tablet 23:27: Q6H, X 5 [place] 00 day, # 20 tab, 0 Refill(s) Motrin 0 No Notes: Memoria 7-13 (Same as: l 22:22: Motrin) [place] 00 "Do Not Crush" Take with food. Motrin No Notes: Memoria 7-13 (Same as: l 22:22: Motrin) [place] 00 "Do Not Crush" Take with food. Motrin No Notes: Memoria 7-13 (Same as: l 22:22: Motrin) [place] 00 "Do Not Crush" Take with food. cefTRIAXone 2019- No 1000mg 1,000 mg, Univers (ROCEPHIN) 12-20 IV ity of 1,000 mg in 22:45: 22:17 [place], [place] NaCl 0.9% 00 :00 ONCE, 1 Medical (NS) 50 mL dose, Sat [facility] ch MINI-BAG 12/21/19 at 1745, 50 mL
Reas on for Anti-Infec tive: Documented Infection< br>Documen afshin Infection Site: Urine
D uration of Therapy: 7 days potassium 2019- 2020- No 10meq 10 mEq, IV Univers chloride 10 12-20 Piggyback, i ty of mEq in 100 22:15: 22:19 ONCE, 1 [place] as mL RTU 00 :00 dose, [facility] Medical 12/21/19 at Branch 1715, 100 mL KCL 2019- No 40meq 40 mEq, Univers (KLOR-CON 12-20 Oral, ity of M20) tablet 22:15: 21:19 ONCE, 1 [place] 40 mEq 00 :00 dose, Sat Medical 12/21/19 at Branch 1715, [place]EN metoclopram 2019- No 10mg 10 mg, Uni vers srikanth HCl 12-20 Slow IV ity of (REGLAN) 21:45: 20:45 Push, [place] injection 00 :00 ONCE, 1 Medical 10 mg dose, Sat Branch 12/21/19 at 1645, AUSTEN ketorolac 2019- No 30mg 30 mg, Unive rs (TORADOL) 12-20 Slow IV ity of injection 21:45: 20:45 Push, [place] 30 mg 00 :00 ONCE, 1 Medical dose, Sat Branch 12/21/19 at 1645, Routine
media law faculty member approving Restricted medication : SHIRIN PAIZ NaCl 0.9% 2020- No 1000mL at 999 Uni vers (NS) bolus 12-20 mL/hr, ity of infusion 20:45: 22:38 1,000 mL, Joes[place] as 1,000 mL 00 :00 IV Medical Infusion, Branch ONCE, 1 dose, 12/21/19 at 1545, AUSTEN cefdinir 2020- No [id number] 300mg Take 1 U nivers 300 mg 12-20 capsule by ity of capsule 00:00: 04:59 mouth 2 [place] 00 :00 (two) Medical times Branch daily for 10 days. albuterol Yes 2{puff} Inhale 2 U nivers (VENTOLIN) 4-13 Puffs ity of 90 00:00: every 4 [place] mcg/actuati 00 (four) Medica l on inhaler hours as Branc h needed for Wheezing or Shortness of Breath. albuterol Yes 2{puff} Inhale 2 U nivers (VENTOLIN) 4-13 Puffs ity of 90 00:00: every 4 [place] mcg/actuati 00 (four) Medica l on inhaler hours as Branc h needed for Wheezing or Shortness of Breath. albuterol Yes 2{puff} Inhale 2 U nivers (VENTOLIN) 4-13 Puffs ity of 90 00:00: every 4 [place] mcg/actuati 00 (four) Medica l on inhaler hours as Branc h needed for Wheezing or Shortness of Breath. albuterol Yes 2{puff} Inhale 2 U nivers (VENTOLIN) 4-13 Puffs ity of 90 00:00: every 4 [place] mcg/actuati 00 (four) Medica l on inhaler hours as Branc h needed for Wheezing or Shortness of Breath. albuterol Yes 2{puff} Inhale 2 U nivers (VENTOLIN) 4-13 Puffs ity of 90 00:00: every 4 [place] mcg/actuati 00 (four) Medica l on inhaler hours as Branc h needed for Wheezing or Shortness of Breath. albuterol Yes 2{puff} Inhale 2 U nivers (VENTOLIN) 4-13 Puffs ity of 90 00:00: every 4 [place] mcg/actuati 00 (four) Medica l on inhaler hours as Branc h needed for Wheezing or Shortness of Breath. albuterol Yes 2{puff} Inhale 2 U nivers (VENTOLIN) 4-13 Puffs ity of 90 00:00: every 4 [place] mcg/actuati 00 (four) Medica l on inhaler hours as Branc h needed for Wheezing or Shortness of Breath. albuterol Yes 2{puff} Inhale 2 U nivers (VENTOLIN) 4-13 Puffs ity of 90 00:00: every 4 [place] mcg/actuati 00 (four) Medica l on inhaler hours as Branc h needed for Wheezing or Shortness of Breath. albuterol Yes 2{puff} Inhale 2 U nivers (VENTOLIN) 4-13 Puffs ity of 90 00:00: every 4 [place] mcg/actuati 00 (four) Medica l on inhaler hours as Branc h needed for Wheezing or Shortness of Breath. albuterol Yes 2{puff} Inhale 2 U nivers (VENTOLIN) 4-13 Puffs ity of 90 00:00: every 4 [place] mcg/actuati 00 (four) Medica l on inhaler hours as Branc h needed for Wheezing or Shortness of Breath. albuterol Yes 2{puff} Inhale 2 U nivers (VENTOLIN) 4-13 Puffs ity of 90 00:00: every 4 [place] mcg/actuati 00 (four) Medica l on inhaler hours as Branc h needed for Wheezing or Shortness of Breath. albuterol 2015-0 Yes 2{puff} Inhale 2 U nivers (VENTOLIN) 4-13 Puffs ity of 90 00:00: every 4 [place] mcg/actuati 00 (four) Medica l on inhaler hours as Branc h needed for Wheezing or Shortness of Breath. albuterol 2015-0 Yes 2{puff} Inhale 2 U nivers (VENTOLIN) 4-13 Puffs ity of 90 00:00: every 4 [place] mcg/actuati 00 (four) Medica l on inhaler hours as Branc h needed for Wheezing or Shortness of Breath. albuterol 2015-0 Yes 2{puff} Inhale 2 U nivers (VENTOLIN) 4-13 Puffs ity of 90 00:00: every 4 [place] mcg/actuati 00 (four) Medica l on inhaler hours as Branc h needed for Wheezing or Shortness of Breath. naproxen 2016-0 Yes 500mg Take 1 Tab Un frida (NAPROSYN) 1-21 by mouth ity o f 500 mg 00:00: as needed [place] tablet 00 for Pain Medical (scale Branch 1-3) (TO MAX OF BID). cyclobenzap 2016-0 Yes 10mg Take 1 Tab Univers rine 1-21 by mouth ity of (FLEXERIL) 00:00: [place] 10 mg 00 for Muscle Medical tablet Spasms (TO Branch MAX OF TID). naproxen 2016-0 Yes 500mg Take 1 Tab Un frida (NAPROSYN) 1-21 by mouth ity o f 500 mg 00:00: as needed [place] tablet 00 for Pain Medical (scale Branch 1-3) (TO MAX OF BID). cyclobenzap 2016-0 Yes 10mg Take 1 Tab Univers rine 1-21 by mouth ity of (FLEXERIL) 00:00: [place] 10 mg 00 for [facility]cle Medical tablet Spasms (TO Branch MAX OF TID). naproxen 2016-0 Yes 500mg Take 1 Tab Un fr[place] (NAPROSYN) 1-21 by mouth ity o f 500 mg 00:00: as needed [place] tablet 00 for Pain Medical (scale Branch 1-3) (TO MAX OF BID). cyclobenzap 2016-0 Yes 10mg Take 1 Tab Univers rine 1-21 by mouth ity of (FLEXERIL) 00:00: [place] 10 mg 00 for [facility]cle Medical tablet Spasms (TO Branch MAX OF TID). naproxen 2016-0 Yes 500mg Take 1 Tab Un fr[place] (NAPROSYN) 1-21 by mouth ity o f 500 mg 00:00: as needed [place] tablet 00 for Pain Medical (scale Branch 1-3) (TO MAX OF BID). cyclobenzap 2016-0 Yes 10mg Take 1 Tab Univers rine 1-21 by mouth ity of (FLEXERIL) 00:00: [place] 10 mg 00 for Muscle Medical tablet Spasms (TO Branch MAX OF TID). naproxen 2016-0 Yes 500mg Take 1 Tab Un fr[place] (NAPROSYN) 1-21 by mouth ity o f 500 mg 00:00: as needed [place] tablet 00 for Pain Medical (scale Branch 1-3) (TO MAX OF BID). cyclobenzap 2016-0 Yes 10mg Take 1 Tab Univers rine 1-21 by mouth ity of (FLEXERIL) 00:00: [place] 10 mg 00 for Muscle Medical tablet Spasms (TO Branch MAX OF TID). naproxen 2016-0 Yes 500mg Take 1 Tab Un fr[place] (NAPROSYN) 1-21 by mouth ity o f 500 mg 00:00: as needed [place] tablet 00 for Pain Medical (scale Branch 1-3) (TO MAX OF BID). cyclobenzap 2016-0 Yes 10mg Take 1 Tab Univers rine 1-21 by mouth ity of (FLEXERIL) 00:00: [place] 10 mg 00 for Muscle Medical tablet Spasms (TO Branch MAX OF TID). naproxen 2016-0 Yes 500mg Take 1 Tab Un fr[place] (NAPROSYN) 1-21 by mouth ity o f 500 mg 00:00: as needed [place] tablet 00 for Pain Medical (scale Branch 1-3) (TO MAX OF BID). cyclobenzap 2016-0 Yes 10mg Take 1 Tab Univers rine 1-21 by mouth ity of (FLEXERIL) 00:00: [place] 10 mg 00 for Muscle Medical tablet Spasms (TO Branch MAX OF TID). naproxen 2016-0 Yes 500mg Take 1 Tab [place] fr[place] (NAPROSYN) 1-21 by mouth ity o f 500 mg 00:00: as needed [place] tablet 00 for Pain Medical (scale Branch 1-3) (TO MAX OF BID). cyclobenzap 2016-0 Yes 10mg Take 1 Tab Univers rine 1-21 by mouth ity of (FLEXERIL) 00:00: [place] 10 mg 00 for [facility]cle Medical tablet Spasms (TO Branch MAX OF TID). naproxen 2016-0 Yes 500mg Take 1 Tab Un fr[place] (NAPROSYN) 1-21 by mouth ity o f 500 mg 00:00: as needed [place] tablet 00 for Pain Medical (scale Branch 1-3) (TO MAX OF BID). cyclobenzap 2016-0 Yes 10mg Take 1 Tab Univers rine 1-21 by mouth ity of (FLEXERIL) 00:00: [place] 10 mg 00 for Muscle Medical tablet Spasms (TO Branch MAX OF TID). naproxen 2016-0 Yes 500mg Take 1 Tab Un fr[place] (NAPROSYN) 1-21 by mouth ity o f 500 mg 00:00: as needed [place] tablet 00 for Pain Medical (scale Branch 1-3) (TO MAX OF BID). cyclobenzap 2016-0 Yes 10mg Take 1 Tab Univers rine 1-21 by mouth ity of (FLEXERIL) 00:00: [place] 10 mg 00 for Muscle Medical tablet Spasms (TO Branch MAX OF TID). naproxen 2016-0 Yes 500mg Take 1 Tab Un fr[place] (NAPROSYN) 1-21 by mouth ity o f 500 mg 00:00: as needed [place] tablet 00 for Pain Medical (scale Branch 1-3) (TO MAX OF BID). cyclobenzap 2016-0 Yes 10mg Take 1 Tab Univers rine 1-21 by mouth ity of (FLEXERIL) 00:00: as [place] 10 mg 00 for Muscle Medical tablet Spasms (TO Branch MAX OF TID). naproxen 2016-0 Yes 500mg Take 1 Tab Un fr[place] (NAPROSYN) 1-21 by mouth ity o f 500 mg 00:00: as needed [place] tablet 00 for Pain Medical (scale Branch 1-3) (TO MAX OF BID). cyclobenzap 2016-0 Yes 10mg Take 1 Tab Univers rine 1-21 by mouth ity of (FLEXERIL) 00:00: as needed [place] 10 mg 00 for Muscle Medical tablet Spasms (TO Branch MAX OF TID). naproxen 2016-0 Yes 500mg Take 1 Tab Un fr[place] (NAPROSYN) 1-21 by mouth ity o f 500 mg 00:00: as needed [place] tablet 00 for Pain Medical (scale Branch 1-3) (TO MAX OF BID). cyclobenzap 2016-0 Yes 10mg Take 1 Tab Univers rine 1-21 by mouth ity of (FLEXERIL) 00:00: as [place] 10 mg 00 for Muscle Medical tablet Spasms (TO Branch MAX OF TID). naproxen 2016-0 Yes 500mg Take 1 Tab Un fr[place] (NAPROSYN) 1-21 by mouth ity o f 500 mg 00:00: as needed [place] tablet 00 for Pain Medical (scale Branch 1-3) (TO MAX OF BID). cyclobenzap 2016-0 Yes 10mg Take 1 Tab Univers rine 1-21 by mouth ity of (FLEXERIL) 00:00: as [place] 10 mg 00 for Muscle Medical tablet Spasms (TO Branch MAX OF TID). Vital Signs Vital Name Observation Time Observation Value Comments Source Systolic blood 2021-08-27 23:36:00 149 mm[Hg] [facility] Diastolic blood 2021-08-27 23:36:00 90 mm[Hg] [facility] Heart rate 2021-08-27 23:36:00 104 /min General acute hospital Body temperature 2021-08-27 23:36:00 36.94 Yas [facility] Respiratory rate 2021-08-27 23:36:00 18 /min [facility] Body height 2021-08-27 23:36:00 165.1 cm [facility] acute hospital Body weight 2021-08-27 23:36:00 56.7 kg [facility] acute hospital BMI 2021-08-27 23:36:00 20.80 kg/m2 [facility] Oxygen saturation in 2021-08-27 23:36:00 96 /min [facility] Pulse oxim[facility] Systolic blood 2021-04-13 02:04:00 133 mm[Hg] Un[facility]ity [facility] Diastolic blood 2021-04-13 02:04:00 89 mm[Hg] Unive rsity of [facility] Heart rate 2021-04-13 02:04:00 83 /min [facility] Body temperature 2021-04-13 02:04:00 36.78 Yas [facility] Respiratory rate 2021-04-13 02:04:00 18 /min [facility] [place] [facility] Body height 2021-04-13 02:04:00 165.1 cm [facility] Body weight 2021-04-13 02:04:00 45.36 kg [facility] BMI 2021-04-13 02:04:00 16.64 kg/m2 [facility] Oxygen saturation in 2021-04-13 02:04:00 99 /min [facility] Pulse oxim[facility] Systolic blood 2021-03-18 08:33:06 164 mm[Hg] [facility]iver [facility]ity [facility] Diastolic blood 2021-03-18 08:33:06 67 mm[Hg] Unive rsity [facility] Heart rate 2021-03-18 08:33:06 88 /min [facility] Respiratory rate 2021-03-18 08:33:06 20 /min [facility] Oxygen saturation in 2021-03-18 08:33:06 97 /min [facility] Pulse oximetry [facility] Body temperature 2021-03-18 05:37:00 36.06 Yas [facility] [place] [facility] Body height 2021-03-18 05:37:00 165.1 cm [facility] Body weight 2021-03-18 05:37:00 52.164 kg [facility] BMI 2021-03-18 05:37:00 19.14 kg/m2 [facility] Systolic blood 2021-03-13 19:22:00 163 mm[Hg] [facility]iver sity of [facility] [place] [facility] Diastolic blood 2021-03-13 19:22:00 95 mm[Hg] Unive rsity of [facility] [place] [facility] Heart rate 2021-03-13 19:22:00 126 /min [facility] Body temperature 2021-03-13 19:22:00 37.33 Yas [facility] Respiratory rate 2021-03-13 19:22:00 18 /min [facility] Body weight 2021-03-13 19:22:00 45.36 kg [facility] [place] [facility] BMI 2021-03-13 19:22:00 16.64 kg/m2 [facility] Oxygen saturation in 2021-03-13 19:22:00 98 /min [facility] [place] [facility] Pulse oximetry Branch Systolic blood 2020-11-20 10:29:00 129 mm[Hg] [facility] Diastolic blood 2020-11-20 10:29:00 79 mm[Hg] Unive rsity of [facility] [place] [facility] Heart rate 2020-11-20 10:29:00 63 /min [facility] Respiratory rate 2020-11-20 10:29:00 13 /min [facility] Oxygen saturation in 2020-11-20 10:29:00 99 /min [facility] [place] [facility] Pulse oximetry Branch Systolic blood 2020-11-20 10:29:00 129 mm[Hg] Univer sity of [facility] [place] [facility] Diastolic blood 2020-11-20 10:29:00 79 mm[Hg] Unive rsity of [facility] Heart rate 2020-11-20 10:29:00 63 /min [facility] [place] [facility] Respiratory rate 2020-11-20 10:29:00 13 /min [facility] [place] [facility] Oxygen saturation in 2020-11-20 10:29:00 99 /min [facility] [place] [facility] Pulse oximetry Branch Body temperature 2020-11-20 08:36:00 37 Yas [facility] [place] [facility] Body weight 2020-11-20 08:36:00 45.36 kg [facility] BMI 2020-11-20 08:36:00 16.64 kg/m2 [facility] Body temperature 2020-11-20 08:36:00 37 Yas [facility] Body weight 2020-11-20 08:36:00 45.36 kg [facility] [place] [facility] BMI 2020-11-20 08:36:00 16.64 kg/m2 [facility] Systolic blood 2020-11-20 10:29:00 129 mm[Hg] Univer sity of [facility] [place] [facility] Diastolic blood 2020-11-20 10:29:00 79 mm[Hg] Unive rsity of [facility] [place] [facility] Heart rate 2020-11-20 10:29:00 63 /min [facility] [place] [facility] Respiratory rate 2020-11-20 10:29:00 13 /min Univ ersity of [facility] Oxygen saturation in 2020-11-20 10:29:00 99 /min [facility] [place] [facility] Pulse oximetry Branch Systolic blood 2020-11-20 10:29:00 129 mm[Hg] Univer [facility]ity [facility] [place] [facility] Diastolic blood 2020-11-20 10:29:00 79 mm[Hg] Unive rsity of [facility] Heart rate 2020-11-20 10:29:00 63 /min [facility] [place] [facility] Respiratory rate 2020-11-20 10:29:00 13 /min Univ ersity of [facility] Oxygen saturation in 2020-11-20 10:29:00 99 /min [facility] [place] [facility] Pulse oximetry Branch Body temperature 2020-11-20 08:36:00 37 Yas [facility] Body weight 2020-11-20 08:36:00 45.36 kg [facility] BMI 2020-11-20 08:36:00 16.64 kg/m2 [facility] Body temperature 2020-11-20 08:36:00 37 Yas [facility] Body weight 2020-11-20 08:36:00 45.36 kg [facility] BMI 2020-11-20 08:36:00 16.64 kg/m2 [facility] Systolic blood 2020-05-22 23:23:00 143 mm[Hg] Univer [facility]ity [facility] Diastolic blood 2020-05-22 23:23:00 93 mm[Hg] Unive rsity of [facility] Heart rate 2020-05-22 23:23:00 95 /min [facility] [place] [facility] Body temperature 2020-05-22 23:23:00 36.67 Yas [facility] Respiratory rate 2020-05-22 23:23:00 18 /min [facility] Oxygen saturation in 2020-05-22 23:23:00 99 /min [facility] Arterial blood by [place] [facility] Pulse oximetry Branch Body height 2020-05-22 23:20:31 165.1 cm [facility] Body weight 2020-05-22 23:20:31 63.504 kg [facility] BMI 2020-05-22 23:20:31 23.30 kg/m2 [facility] Systolic blood 2020-04-07 02:38:00 139 mm[Hg] [facility] [place] [facility] Diastolic blood 2020-04-07 02:38:00 83 mm[Hg] Unive rsity [facility] Heart rate 2020-04-07 02:38:00 69 /min [facility] [place] [facility] Body temperature 2020-04-07 02:38:00 36.72 Yas [facility] Respiratory rate 2020-04-07 02:38:00 16 /min [facility] Body height 2020-04-07 02:38:00 165.1 cm [facility] Body weight 2020-04-07 02:38:00 52.164 kg [facility] [place] [facility] BMI 2020-04-07 02:38:00 19.14 kg/m2 [facility] [place] [facility] Oxygen saturation in 2020-04-07 02:38:00 100 /min [facility] [place] [facility] Pulse oximetry Branch Systolic blood 2020-04-01 17:24:53 153 mm[Hg] Univer [facility]ity [facility] [place] [facility] Diastolic blood 2020-04-01 17:24:53 105 mm[Hg] Unive rsity of [facility] Heart rate 2020-04-01 17:24:53 98 /min [facility] [place] [facility] Body temperature 2020-04-01 17:24:53 37.28 Yas [facility] [place] [facility] Respiratory rate 2020-04-01 17:24:53 17 /min [facility] [place] [facility] Body height 2020-04-01 17:22:00 165.1 cm [facility] [place] [facility] Body weight 2020-04-01 17:22:00 52.164 kg [facility] [place] [facility] BMI 2020-04-01 17:22:00 19.14 kg/m2 [facility] Oxygen saturation in 2020-04-01 17:22:00 100 /min [facility] Pulse oxim[facility] Body temperature 2019-12-21 21:19:45 37.72 Yas [facility] [place] [facility] [place] Systolic blood 2019-12-21 21:00:00 125 mm[Hg] [facility] [place] [facility] [place] Diastolic blood 2019-12-21 21:00:00 74 mm[Hg] [facility]ity [facility] [place] [facility] [place] Heart rate 2019-12-21 21:00:00 91 /min [facility] [place] [facility] Respiratory rate 2019-12-21 21:00:00 19 /min [facility] ersity of [facility] Oxygen saturation in 2019-12-21 21:00:00 99 /min [facility] Pulse oximetry Branch Body height 2019-12-21 19:18:00 165.1 cm [facility] [place] [facility] Body weight 2019-12-21 19:18:00 49.896 kg [facility] BMI 2019-12-21 19:18:00 18.30 kg/m2 [facility] Systolic (mm Hg) 2020-09-15 00:09:00 [facility] [place] Diastolic (mm Hg) 2020-09-15 00:09:00 [facility] [place] Respitory Rate 2020-09-15 00:09:00 [facility] [place] Heart Rate 2020-09-15 00:09:00 [facility] [place] Respitory Rate 2020-09-14 17:56:00 [facility] [place] Heart Rate 2020-09-14 17:56:00 [facility] [place] Systolic (mm Hg) 2020-09-14 17:56:00 Theo [facility] [place] Diastolic (mm Hg) 2020-09-14 17:56:00 [facility] [place] Temperature Oral (F) 2020-09-14 14:00:00 98.4 F [facility] [place] Heart Rate 2020-09-14 14:00:00 [facility] [place] Respitory Rate 2020-09-14 14:00:00 [facility] [place] Systolic (mm Hg) 2020-09-14 14:00:00 Theo [facility] [place] Diastolic (mm Hg) 2020-09-14 14:00:00 [facility] [place] Temperature Oral (F) 2020-09-14 09:40:00 98.3 F [facility] [place] Respitory Rate 2020-09-14 09:40:00 [facility] [place] Heart Rate 2020-09-14 09:40:00 [facility] [place] Systolic (mm Hg) 2020-09-14 09:40:00 [facility] [place] Diastolic (mm Hg) 2020-09-14 09:40:00 [facility] [place] Temperature Oral (F) 2020-09-14 05:30:00 98.6 F [facility] [place] Heart Rate 2020-09-14 05:30:00 [facility] [place] Respitory Rate 2020-09-14 05:30:00 [facility] [place] Systolic (mm Hg) 2020-09-14 05:30:00 Theo [facility] [place] Diastolic (mm Hg) 2020-09-14 05:30:00 [facility] [place] Height 2020-09-14 02:59:00 165.1 cm [facility] [place] Weight 2020-09-14 02:59:00 [facility] [place] BMI Calculated 2020-09-14 02:59:00 [facility] [place] Respitory Rate 2020-09-14 01:40:00 [facility] [place] Temperature Oral (F) 2020-09-14 01:40:00 98.2 F [facility] [place] Heart Rate 2020-09-14 01:40:00 [facility] [place] Systolic (mm Hg) 2020-09-14 01:40:00 Theo [facility] [place] Diastolic (mm Hg) 2020-09-14 01:40:00 [facility] [place] Height 2020-09-13 18:45:00 167.64 cm [facility] [place] BMI Calculated 2020-09-13 18:45:00 [facility] [place] Weight 2020-09-13 18:45:00 [facility] [place] Temperature Oral (F) 2020-01-27 23:51:00 98.8 F [facility] [place] Heart Rate 2020-01-27 23:51:00 [facility] [place] Respitory Rate 2020-01-27 23:51:00 [facility] [place] Systolic (mm Hg) 2020-01-27 23:51:00 Theo [facility] [place] Diastolic (mm Hg) 2020-01-27 23:51:00 [facility] [place] Height 2020-01-27 22:21:00 165.1 cm [facility] [place] BMI Calculated 2020-01-27 22:21:00 [facility] [place] Weight 2020-01-27 22:21:00 [facility] [place] Systolic (mm Hg) 2020-01-27 22:21:00 Theo [facility] [place] Diastolic (mm Hg) 2020-01-27 22:21:00 [facility] [place] Heart Rate 2020-01-27 22:21:00 [facility] [place] Respitory Rate 2020-01-27 22:21:00 [facility] [place] Temperature Oral (F) 2020-01-27 22:21:00 98.8 F [facility] [place] Procedures Procedure Date / Time Performing Clinician Source Performed RAPID STREP SCREEN FOR 2021-08-28 00:25:00 Jeni Hopkins [facility] Medical Branch COVID-19 (ID NOW RAPID 2021-08-28 00:25:00 Jeni Hopkins [facility] TESTING) Medical Branch NOTICE OF PRIVACY 2021-08-27 23:30:31 Doctor Unassigned, [facility] PRACTICES Hannah [facility] CONSENT/REFUSAL FOR 2021-08-27 23:30:05 Doctor Unasselaine, [facility] DIAGNOSIS AND TREATMENT [facility] [place] URINALYSIS 2021-03-18 07:16:00 Jan Jurado [facility] XR RIBS 3 VW RIGHT 2021-03-18 07:03:17 Lela Dc [facility] LIPASE 2021-03-18 05:49:00 Jan Jurado [facility] COMP. METABOLIC PANEL 2021-03-18 05:49:00 Jan Jurado [facility] ([id number]) [facility] CBC WITH DIFF 2021-03-18 05:49:00 Jan Jurado [facility] EMERGENCY SERVICES 2021-03-18 05:01:00 Doctor Maria Esther, [facility] AGREEMENTS AND [facility] [place] AUTHORIZATIONS XR RIBS 3 VW LEFT 2021-03-13 22:51:32 Trevon [facility] XR SHOULDER 2+ VW LEFT 2021-03-13 22:51:32 Trevon [facility] CT HEAD WO CONTRAST 2021-03-13 22:30:20 Trevon [facility] TROPONIN I 2021-03-13 21:40:00 Trevon [facility] COMP. METABOLIC PANEL 2021-03-13 21:40:00 [facility] ([id number] CBC WITH DIFF 2021-03-13 21:40:00 Trevon [facility] XR CHEST 1 VW 2021-03-13 20:07:42 [facility] POCT TEST 2021-03-13 19:28:00 [facility] NOTICE OF PRIVACY 2021-03-13 19:22:19 Doctor Maria Esther, [facility] PRACTICES [facility] [place] CONSENT/REFUSAL FOR 2021-03-13 19:18:31 Doctor Maria Esther, [facility] DIAGNOSIS AND TREATMENT Hannah [facility] CT ANGIOGRAM 2020-11-20 09:48:33 Singer [facility] ABDOMEN/PELVIS Medical Branch CT ANGIOGRAM 2020-11-20 09:48:33 Singer [facility] ABDOMEN/PELVIS Medical Branch POCT TEST 2020-11-20 09:27:00 Morris Leon [facility] POCT TEST 2020-11-20 09:27:00 Morris Leon [facility] BILI UNCONJUGATED/BILI 2020-11-20 08:54:00 Morris Leon [facility] CONJUG [facility] [place] COMP. METABOLIC PANEL 2020-11-20 08:54:00 Morris Leon [facility] ([id number]) Medical Branch CBC WITH DIFF 2020-11-20 08:54:00 Morris Leon o f [facility] PROTHROMBIN TIME / INR 2020-11-20 08:54:00 Morris [facility] BILI UNCONJUGATED/BILI 2020-11-20 08:54:00 Morris Leon [facility] CONJUG [facility] [place] COMP. METABOLIC PANEL 2020-11-20 08:54:00 Morris Leon [facility] ([id number]) Medical Branch CBC WITH DIFF 2020-11-20 08:54:00 Morris Leon o f [facility] PROTHROMBIN TIME / INR 2020-11-20 08:54:00 Morris Leon [facility] POCT GLUCOSE (AUTOMATED) 2020-11-20 08:36:00 Doctor Unasselaine, [facility] [place] POCT GLUCOSE (AUTOMATED) 2020-11-20 08:36:00 Doctor Unassigned, [facility] [place] CONSENT/REFUSAL FOR 2020-04-07 02:26:47 Doctor Unasselaine, [facility] DIAGNOSIS AND TREATMENT [facility] CONSENT/REFUSAL FOR 2020-04-01 17:13:40 Doctor Maria Esther [facility] DIAGNOSIS AND TREATMENT [facility] [place] HEAD WO CONTRAST 2019-12-21 20:38:21 Shirin Paiz [facility] XR CHEST 1 VW COVID 2019-12-21 20:15:00 Shirin Paiz [facility] COVID-19 (ID NOW RAPID 2019-12-21 20:12:00 [facility] POCT TEST 2019-12-21 20:09:00 Shirin Paiz [facility] CBC WITH DIFFERENTIAL 2019-12-21 20:06:00 [facility] 2019-12-21 20:05:00 [facility] MAGNESIUM 2019-12-21 20:05:00 Shirin Paiz [facility] acute hospital TROPONIN I 2019-12-21 20:05:00 Shirin Paiz [facility] acute hospital COMP. METABOLIC PANEL 2019-12-21 20:05:00 [id number] URINALYSIS 2019-12-21 20:05:00 Shirin Paiz [facility] acute hospital LACTIC ACID WHOLE BLOOD 2019-12-21 20:05:00 Shirin Paiz [facility] EKG-12 LEAD 2019-12-21 19:53:02 Shirin Paiz [facility] acute hospital NOTICE OF PRIVACY 2019-12-21 19:12:49 Doctor Unassigned, [facility] PRACTICES Hannah [facility] CONSENT/REFUSAL FOR 2019-12-21 19:12:33 Doctor Unassigned, [facility] DIAGNOSIS AND TREATMENT [facility] Plan of Care Planned Activity Planned Date Details Comments Source Future Scheduled 2021-03-17 INFLUENZA VACCINE Univer sity of Test 00:00:00 (Season Ended) [facility] [code = INFLUENZA Branch VACCINE (Season Ended)] Future Scheduled 2007 Screening for University of Test 00:00:00 malignant neoplasm [place] [facility] of cervix Branch (procedure) [code = 263622350] Future Scheduled 2005 DTaP,Tdap,and Td Univers ity of Test 00:00:00 Vaccines (1 - [facility] Tdap) [code = Branch DTaP,Tdap,and Td Vaccines (1 - Tdap)] Future Scheduled 2004 Hepatitis C University of Test 00:00:00 screening [facility] (procedure) [code Branch = 989817710] Future Scheduled 2002 SARS-CoV-2 University of Test 00:00:00 (COVID-19) Vaccine [facility] (1) [code = Branch SARS-CoV-2 (COVID-19) Vaccine (1)] Future Scheduled 1998 Depression University of Test 00:00:00 screening [facility] (procedure) [code Branch = 701185211] Future Scheduled 1987 VARICELLA VACCINES Unive rsity of Test 00:00:00 (1 of 2 - 2-dose [place] [facility] childhood series) Branch [code = VARICELLA VACCINES (1 of 2 - 2-dose childhood series)] Future Scheduled CT ANGIOGRAM University of Test ABDOMEN/PELVIS [facility] [code = 07455] Branch Future Scheduled IRON PANEL [code = Unive rsity of Test 2365] [facility] Future Scheduled IRON PANEL [code = ONCE for 1 Unive rsity of Test 2365] [facility] 11/20/2020 until 11/20/2020 Encounters Start End Encounter Admission Attending Care Care Encounter Source Date/Time Date/Time Type Type Clinicians Facility Department ID 2021-08-27 2021-08-27 [facility] [id number] Univers 17:38:00 18:54:00 JENI vieira [facility] 2021-08-27 2021-08-27 [facility] [id number] Univers 17:38:00 18:54:00 Jeni BILLY 350.1.13.10 ity of [place] 4.2.7.2.686 [facility] [id number] [address] 2021-04-12 2021-04-12 [facility] [id number] Univers 21:10:00 21:25:00 Adele Billy 350.1.13.10 ity of [place] 4.2.7.2.686 [facility] [id number] [address] 2021-04-12 2021-04-12 Emergency [facility] E[facility] [id number] Univers 21:10:00 21:10:00 ADELE vieira [facility] 2021-03-18 2021-03-18 Emergency [facility] [id number] Univers 00:48:00 03:36:00 Lela Billy [id number] i ty of [place] 4.2.7.2.686 [facility] [id number] [address] 2021-03-18 2021-03-18 Emergency X DC, [facility] ERT [id number] Univers 00:48:00 00:48:00 LELA ity of [facility] 2021-03-18 2021-03-18 Orders Doctor DRE [id number] Univers 00:00:00 00:00:00 Only Unassigned, HENRIK 350.1.13.10 ity of [facility] 4.2.7.2.686 [facility] [id number] [place] [address] Branch 2021-03-13 2021-03-13 [facility] [id number] Univers 14:41:00 21:11:00 Sandy Billy 350.1.13.10 i ty of [place] 4.2.7.2.686 [facility] [id number] [address] 2021-03-13 2021-03-13 Emergency X [facility] ERT [id number] Univers 14:17:00 14:17:00 ity [facility] 2020-11-20 2020-11-20 Emergency [facility] [id number] Univers 05:24:00 05:32:00 Morris Billy 350.1.13.10 i ty of [place] 4.2.7.2.686 [facility] [id number] [address] 2020-11-20 2020-11-20 Emergency X [facility] ERT [id number] Univers 03:34:00 03:34:00 MORRIS vieira [facility] 2020-09-13 2020-09-15 Inpatient [facility] [id number] Memoria 18:41:14 00:52:00 bhanu [place] 01 l [facility] 2020-09-13 2020-09-14 Inpatient E YURY [facility] MED [id number] [facility] 15:07:00 18:52:00 , 2020-05-22 2020-05-22 Emergency Bonnie Schulz [facility] 1.2.840. [id number] Univers 17:02:00 17:28:00 Morris Leon 350.1.13.10 ity of [place] 4.2.7.2.686 [facility] [id number] [address] 2020-05-22 2020-05-22 Emergency X , [facility] ERT [id number] Univers 17:02:00 17:02:00 MORRIS itbruno [facility] 2020-04-06 2020-04-06 Emergency [facility] [id number] Univers 21:43:00 22:22:00 Debra Billy 350.1.13.10 i ty of [place] 4.2.7.2.686 [facility] [id number] [address] 2020-04-06 2020-04-06 Emergency [facility] ERT [id number] Univers 21:43:00 21:43:00 [facility] 2020-04-01 2020-04-01 Emergency [facility] [id number] Univers 12:26:00 13:49:00 Debra Billy 350.1.13.10 i ty of [place] 4.2.7.2.686 [facility] [id number] [address] 2020-04-01 2020-04-01 Emergency X [facility] ERT [id number] Univers 12:14:00 12:14:00 ity [facility] 2020-01-27 2020-01-27 Emergency [facility] [id number] Memoria 21:52:37 23:57:00 bhanu Vides 00 l [facility] 2019-12-21 2019-12-21 Emergency [facility] 1.2.840.114 [id number] Univers 14:21:26 17:40:00 Shirin Billy 350.1.13.10 ity [facility] 4.2.7.[address] [place] [id number] 2019-12-21 2019-12-21 Emergency [facility] [id number] Univers 14:21:26 17:40:00 SHIRIN ity [facility] 2019-12-21 2019-12-21 Orders Doctor ERICKSON 1.2.840.114 [id number] Univers 00:00:00 00:00:00 Only Unassigned, HENRIK 350.1.13.10 ity of [facility] 4.2.7.2.686 Joesph as [id number] [place] [address] Branch 2019-07-01 2019-07-01 Emergency X ADIEL [facility] ERT [id number] Univers 19:23:22 20:10:00 ROBERTO ity [facility] Results Test Description Test Time Test Comments Results Result Comments Source Urinalysis 2021-03-18 07:32:57 Test Item Value Reference Range Interpretation Comme nts APPEARANCE (test code = Hazy Clear A 0936681577) COLOR (test code = 1073683141) Straw Yellow A PH (test code = 2597183357) 4.8-8.0 SP GRAVITY (test code = 1.003-1.030 L 8588822703) GLU U QUAL (test code = Normal Normal 2219222247) BLOOD (test code = 0904434462) 1+ Negative A KETONES (test code = 5770408500) Negative Negative PROTEIN (test code = 2887-8) Negative Negative UROBILIN (test code = 0314184715) Normal Normal BILIRUBIN (test code = Negative Negative 7310843649) NITRITE (test code = 6793696860) Negative Negative LEUK NIMESH (test code = 250/uL Negative A 8868078996) RBC/HPF (test code = 5197402930) See_Comment [Automated message] The system which ge nerated this result transmit afshin reference range: 0 - 3 HP F. The reference range was not used to interpret th is result as normal/abnormal . WBC/HPF (test code = 0344885089) See_Comment [Automated message] The system which ge nerated this result transmit afshin reference range: 0 - 5 HP F. The reference range was not used to interpret th is result as normal/abnormal . BACTERIA (test code = 8258166958) Few Negative A SQ EPITH (test code = 1158990243) HPF Lab Interpretation (test code = Abnormal 56440-3) [facility]57 Test Item Value Reference Range Interpretation Comments APPEARANCE (test code = Hazy Clear A 9412111189) COLOR (test code = Straw Yellow A 1704808337) PH (test code = 4.8-8.0 4028279031) SP GRAVITY (test code = 1.003-1.030 L 0089902966) GLU U QUAL (test code = Normal Normal 7617425098) BLOOD (test code = 1+ Negative A 6397949913) KETONES (test code = Negative Negative 2899848848) PROTEIN (test code = Negative Negative 2887-8) UROBILIN (test code = Normal Normal 0655981700) BILIRUBIN (test code = Negative Negative 7586877165) NITRITE (test code = Negative Negative 6520799362) LEUK NIMESH (test code = 250/uL Negative A 9688405894) RBC/HPF (test code = See_Comment [Autom ated message] 5118608231) The system [employer] generated this result transmitted ref erence range: 0 - 3 HP F. The reference range was not used to int erpret this result as normal/abnormal . WBC/HPF (test code = See_Comment [Autom ated message] 4162230384) The system [employer] generated this result transmitted ref erence range: 0 - 5 HP F. The reference range was not used to int erpret this result as normal/abnormal . BACTERIA (test code = Few Negative A 8883338867) SQ EPITH (test code = HPF 6727078840) Lab Interpretation (test Abnormal code = 98991-3) [facility] with Afxweusathbj1126-76-26 06:30:04 Test Item Value Reference Range Interpretation Comments WBC (test code = See_Comment [Automated 6161-2) message] The sy stem which generated this result transmitted reference range : 4.30 - 11.10 10*3/?L. The reference range was not used to interpret this result as normal/abnormal . RBC (test code = See_Comment [Automated 889-8) message] The sy stem which generated this result transmitted reference range : 3.93 - 5.25 10*6/?L. The reference range was not used to interpret this result as normal/abnormal . HGB (test code = 8.9 g/dL 11.6-15.0 L 718-7) HCT (test code = 31.1 % 35.7-45.2 L 4544-3) MCV (test code = 64.5 fL 80.6-95.5 L 787-2) MCH (test code = 18.5 pg 25.9-32.8 L 785-6) MCHC (test code = 28.6 g/dL 31.6-35.1 L 786-4) RDW-SD (test code = 52.1 fL 39.0-49.9 H 69577-7) RDW-CV (test code = 23.9 % 12.0-15.5 H 788-0) PLT (test code = See_Comment [Automated 777-3) message] The sy stem which generated this result transmitted reference range : 166 - 358 10*3/ ?L. The reference r yvonne was not used to interpret this result as normal/abnormal . MPV (test code = 9.6 fL 9.5-12.9 16913-1) NRBC/100 WBC (test See_Comment [Automat ed code = 0558343431) message] The system which generated this result transmitted reference range : 0.0 - 10.0 /100 WBCs. The refer ence range was not u sed to interpret th is result as normal/abnormal . NRBC x10^3 (test code <0.01 See_Comment [Auto mated = 3998504615) message] The s ystem which generated this result transmitted reference range : 10*3/?L. The reference range was not used to interpret this result as normal/abnormal . GRAN MAT (NEUT) % 63.0 % (test code = 770-8) IMM GRAN % (test code 0.30 % = 3142083139) LYMPH % (test code = 25.8 % 736-9) MONO % (test code = 8.0 % 5905-5) EOS % (test code = 1.9 % 713-8) BASO % (test code = 1.0 % 706-2) GRAN MAT x10^3(ANC) 3.63 10*3/uL 1.88-7.09 (test code = 8661614522) IMM GRAN x10^3 (test <0.03 0.00-0.06 code = 3330730400) LYMPH x10^3 (test code 1.49 10*3/uL 1.32-3.29 = 731-0) MONO x10^3 (test code 0.46 10*3/uL 0.33-0.92 = 742-7) EOS x10^3 (test code = 0.11 10*3/uL 0.03-0.39 711-2) BASO x10^3 (test code 0.06 10*3/uL 0.01-0.07 = 704-7) Lab Interpretation Abnormal (test code = 61614-0) [facility] with Auwkjnpsusun2868-97-18 06:30:04 Test Item Value Reference Range Interpretation Comments WBC (test code = See_Comment [Automated 6690-2) message] The sy stem which generated this result transmitted reference range : 4.30 - 11.10 10*3/?L. The reference range was not used to interpret this result as normal/abnormal . RBC (test code = See_Comment [Automated 789-8) message] The sy stem which generated this result transmitted reference range : 3.93 - 5.25 10*6/?L. The reference range was not used to interpret this result as normal/abnormal . HGB (test code = 8.9 g/dL 11.6-15.0 L 718-7) HCT (test code = 31.1 % 35.7-45.2 L 4544-3) MCV (test code = 64.5 fL 80.6-95.5 L 787-2) MCH (test code = 18.5 pg 25.9-32.8 L 785-6) MCHC (test code = 28.6 g/dL 31.6-35.1 L 786-4) RDW-SD (test code = 52.1 fL 39.0-49.9 H 88942-3) RDW-CV (test code = 23.9 % 12.0-15.5 H 788-0) PLT (test code = See_Comment [Automated 777-3) message] The sy stem which generated this result transmitted reference range : 166 - 358 10*3/ ?L. The reference r yvonne was not used to interpret this result as normal/abnormal . MPV (test code = 9.6 fL 9.5-12.9 31178-6) NRBC/100 WBC (test See_Comment [Automat ed code = 0085547527) message] The system which generated this result transmitted reference range : 0.0 - 10.0 /100 WBCs. The refer ence range was not u sed to interpret th is result as normal/abnormal . NRBC x10^3 (test code <0.01 See_Comment [Auto mated = 5557585742) message] The s ystem which generated this result transmitted reference range : 10*3/?L. The reference range was not used to interpret this result as normal/abnormal . GRAN MAT (NEUT) % 63.0 % (test code = 770-8) IMM GRAN % (test code 0.30 % = 1312855398) LYMPH % (test code = 25.8 % 736-9) MONO % (test code = 8.0 % 5905-5) EOS % (test code = 1.9 % 713-8) BASO % (test code = 1.0 % 706-2) GRAN MAT x10^3(ANC) 3.63 10*3/uL 1.88-7.09 (test code = 0931113904) IMM GRAN x10^3 (test <0.03 0.00-0.06 code = 4320315520) LYMPH x10^3 (test code 1.49 10*3/uL 1.32-3.29 = 731-0) MONO x10^3 (test code 0.46 10*3/uL 0.33-0.92 = 742-7) EOS x10^3 (test code = 0.11 10*3/uL 0.03-0.39 711-2) BASO x10^3 (test code 0.06 10*3/uL 0.01-0.07 = 704-7) Lab Interpretation Abnormal (test code = 98934-4) [facility] Byzml1191-92-56 06:16:00 Test Item Value Reference Range Interpretation Comments NA (test code = 135 mmol/L 135-145 2457814014) K (test code = 3.7 mmol/L 3.5-5.0 6184390643) CL (test code = 99 mmol/L 98-108 2016270929) CO2 TOTAL (test code = 25 mmol/L 23-31 2295052133) AGAP (test code = 2-16 7685570735) BUN (test code = 8 mg/dL 7-23 2990602533) GLUCOSE (test code = 128 mg/dL 70-110 H 3984073761) CREATININE (test code = 0.70 mg/dL 0.50-1.04 6890866741) TOTAL BILI (test code = 0.7 mg/dL 0.1-1.5 7991230840) CALCIUM (test code = 10.0 mg/dL 8.6-10.6 0089553994) T PROTEIN (test code = 9.0 g/dL 6.3-8.2 H 9975755169) ALBUMIN (test code = 5.1 g/dL 3.5-5.0 H 7672540860) ALK PHOS (test code = 62 U/L 34-122 5144197359) ALTv (test code = 13 U/L 5-35 2-6) AST(SGOT) (test code = 33 U/L 13-40 7504741178) eGFR (test code = mL/min/1.73m2 1173563365) SONIA (test code = SONIA) Association of Glomerular Filtration Rate (GFR) and Staging of Kidney Disease* + --+ --+ ------+| GFR (mL/min/1.73 m2) ?| With Kidney Damage ?| ?Without Kidney Damage+ --------+ --------+ +| ?>90 ?| ?Stage one ?| ? Normal ?+ ---+ ---+ -------+| ?60-89 ?| ?Stage two ?| ? Decreased GFR ? + --+ --+ ------+| ?30-59 ?| ?Stage three ?| ? Stage three ? + --+ --+ ------+| ?15-29 ?| ?Stage four ? | ? Stage four ?+ ---+ ---+ -------+| ?<15 (or dialysis) ? ?| ?Stage five ? | ? Stage five ?+ ---+ ---+ -------+ *Each stage assumes the associated GFR level has been in effect for at least three months. ?Stages 1 to 5, with or without kidney disease, indicate chronic kidney disease. Notes: Determination of stages one and two (with eGFR >59mL/min/1.73 m2) requires estimation of kidney damage for at least three months as defined by structural or functional abnormalities of the kidney, manifested by either:Pathological abnormalities or Markers of kidney damage (including abnormalities in the composition of the blood or urine or abnormalities in imaging tests). Lab Interpretation Abnormal (test code = 14134-2) [facility] [id number] 06:16:00 Test Item Value Reference Range Interpretation Comments NA (test code = 135 mmol/L 135-145 8067116272) K (test code = 3.7 mmol/L 3.5-5.0 5481508280) CL (test code = 99 mmol/L 98-108 0124356276) CO2 TOTAL (test code = 25 mmol/L 23-31 1688855498) AGAP (test code = 2-16 8175103615) BUN (test code = 8 mg/dL 7-23 7097823536) GLUCOSE (test code = 128 mg/dL 70-110 H 6165442765) CREATININE (test code = 0.70 mg/dL 0.50-1.04 8133671210) TOTAL BILI (test code = 0.7 mg/dL 0.1-1.0 9011967294) CALCIUM (test code = 10.0 mg/dL 8.6-10.6 6576677712) T PROTEIN (test code = 9.0 g/dL 6.3-8.2 H 4727015093) ALBUMIN (test code = 5.1 g/dL 3.5-5.0 H 3692900601) ALK PHOS (test code = 62 U/L 34-122 8579135160) ALTv (test code = 13 U/L 5-35 2-6) AST(SGOT) (test code = 33 U/L 13-40 9406593329) eGFR (test code = mL/min/1.73m2 0056955274) SONIA (test code = SONIA) Association of Glomerular Filtration Rate (GFR) and Staging of Kidney Disease* + --+ --+ ------+| GFR (mL/min/1.73 m2) ?| With Kidney Damage ?| ?Without Kidney Damage+ --------+ --------+ +| ?>90 ?| ?Stage one ?| ? Normal ?+ ---+ ---+ -------+| ?60-89 ?| ?Stage two ?| ? Decreased GFR ? + --+ --+ ------+| ?30-59 ?| ?Stage three ?| ? Stage three ? + --+ --+ ------+| ?15-29 ?| ?Stage four ? | ? Stage four ?+ ---+ ---+ -------+| ?<15 (or dialysis) ? ?| ?Stage five ? | ? Stage five ?+ ---+ ---+ -------+ *Each stage assumes the associated GFR level has been in effect for at least three months. ?Stages 1 to 5, with or without kidney disease, indicate chronic kidney disease. Notes: Determination of stages one and two (with eGFR >59mL/min/1.73 m2) requires estimation of kidney damage for at least three months as defined by structural or functional abnormalities of the kidney, manifested by either:Pathological abnormalities or Markers of kidney damage (including abnormalities in the composition of the blood or urine or abnormalities in imaging tests). Lab Interpretation Abnormal (test code = 41155-0) [facility], [id number] 06:15:40 Test Item Value Reference Range Interpretation Comments LIPASE (test code = 0807511765) 73 U/L 0-220 Lab Interpretation (test code = Normal 36222-2) [facility], [id number] 06:15:40 Test Item Value Reference Range Interpretation Comments LIPASE (test code = 1496051664) 73 U/L 0-220 Lab Interpretation (test code = Normal 89363-5) [facility] CenterXR RIBS 3 VW [id number] 00:10:59 Impression: 1. ?Radiographically unremarkable ?left rib series. RL: 2822 AFC: [id number] EXAMINATION: ?Rib series 03/13/2021 7:10 PM Ordering physician: SANDY DREW CLINICAL HISTORY: ? chest pain ? COMPARISON EXAM(S): ?None Technique: AP and oblique images of the left-sided ribs. Findings: Images of the left-sided ribs show no evidence of acute displaced ribfracture. No pneumothorax is noted. ?The visualized hemithorax isunremarkable. [facility], Radiant Results Inft User - 03/13/2021 7:12 PM CDT EXAMINATION: Rib series03/13/2021 7:10 PMOrdering physician: SANDY DREW CLINICAL HISTORY: chest pain COMPARISON EXAM(S): NoneTechnique:AP and oblique images of the left-sided ribs.Findings:Images of the left-sided ribs show no evidence of acute displaced ribfracture. No pneumothorax is noted. The visualized hemithorax isunremarkable.IMPRESSIONImpression:1. Radiographically unremarkable left rib series.RL: 2822AFC: [id number] signed by Mervin Kumari MD at 03/13/2021 7:10 PMUnTitus Regional Medical CenterXR RIBS 3 VW [id number] 00:10:59Impression: 1. ?Radiographically unremarkable ?left rib series. RL: 2822 AFC: 38886 EXAMINATION: ?Rib series 03/13/2021 7:10 PM Ordering physician: SANDY DREW CLINICAL HISTORY: ? chest pain ? COMPARISON EXAM(S): ?None Technique: AP and oblique images of the left-sided ribs. Findings: Images of the left-sided ribs show no evidence of acute displaced ribfracture. No pneumothorax is noted. ?The visualized hemithorax isunremarkable. [facility], Radiant Results Inft User - 03/13/2021 7:12 PM CDT EXAMINATION: Rib series03/13/2021 7:10 PMOrdering physician: SANDY DREW CLINICAL HISTORY: chest pain COMPARISON EXAM(S): NoneTechnique:AP and oblique images of the left-sided ribs.Findings:Images of the left-sided ribs show no evidence of acute displaced ribfracture. No pneumothorax is noted. The visualized hemithorax isunremarkable.IMPRESSIONImpression:1. Radiographically unremarkable left rib series.RL: 2822AFC: [id number] signed by Mervin Kumari MD at 03/13/2021 7:10 PMUnTitus Regional Medical CenterXR SHOULDER 2+ VW [id number] 00:10:08Impression: 1. ?Radiographically unremarkable left shoulder. RL: 2822 AFC: [id number] EXAMINATION: ?SHOULDER left COMPLETE MIN 3 VIEWS 03/13/2021 7:09 PM Ordering physician: SANDY DREW CLINICAL HISTORY: ?shoulder pain COMPARISON EXAM(S): ?None Technique: Internal, external rotation, and trans- scapular Y views of the leftshoulder. Findings: No acute fractures, subluxations, bony masses, or radiographic soft tissueabnormality. ?The visualizedportions of the left hemithorax areunremarkable. [facility], Radiant Results Inft - 03/13/2021 7:11 PM CDT EXAMINATION: SHOULDER left COMPLETE MIN 3 VIEWS03/13/2021 7:09 PMOrdering physician: SANDY DREW CLINICAL HISTORY: shoulder painCOMPARISON EXAM(S): NoneTechnique:Internal, external rotation, and trans-scapular Y views of the leftshoulder.Findings:No acute fractures, subluxations, bony masses, or radiographic soft tissueabnormality. The visualized portions of the left hemithorax areunremarkable.IMPRESSIONImpression:1. Radiographically unremarkable left shoulder. RL: 2822AFC: [id number] signed by Mervin Kumari MD at 03/13/2021 7:10 PMUnTitus Regional Medical CenterXR SHOULDER 2+ VW [id number] 00:10:08Impression: 1. ?Radiographically unremarkable left shoulder. RL: 2822 AFC: [id number] EXAMINATION: ?SHOULDER left COMPLETE MIN 3 VIEWS 03/13/2021 7:09 PM Ordering physician: SANDY DREW CLINICAL HISTORY: ?shoulder pain COMPARISON EXAM(S): ?None Technique: Internal, external rotation, and trans- scapular Y views of the leftshoulder. Findings: No acute fractures, subluxations, bony masses, or radiographic soft tissueabnormality. ?The visualizedportions of the left hemithorax areunremarkable. [facility], Radiant Results Inft User - 03/13/2021 7:11 PM CDT EXAMINATION: SHOULDER left COMPLETE MIN 3 VIEWS03/13/2021 7:09 PMOrdering physician: SANDY DREW CLINICAL HISTORY: shoulder painCOMPARISON EXAM(S): NoneTechnique:Internal, external rotation, and trans-scapular Y views of the leftshoulder.Findings:No acute fractures, subluxations, bony masses, or radiographic soft tissueabnormality. The visualized portions of the left hemithorax areunremarkable.IMPRESSIONImpression:1. Radiographically unremarkable left shoulder. RL: 2822AFC: [id number] signed by Mervin Kumari MD at 03/13/2021 7:10 PMUnTitus Regional Medical CenterCT HEAD WO [id number] 22:41:[address] headCT HEAD WO CONTRAST HISTORY: Female 35 years Head trauma, coagulopathy (Age 19-64y) COMPARISON: CT head dated 12/21/2019 TECHNIQUE: Routine CT head without contrast FINDINGS: The ventricles and cerebral sulci are normal in caliber and configuration.No hydrocephalus, midline shift or pathological extra-axial fluidcollection is present. The basal cisterns are unremarkable. No acute intracranial hemorrhage or mass effect is present. The everett-whitematter differentiation is preserved. No parenchymal attenuation abnormalityis present. The calvarium and skull base are unremarkable. The mastoi d air cells andvisualized paranasal air sinuses are clear. [facility], Radiant Results Inft User - 03/13/2021 5:[address] HEAD WO CONTRASTHISTORY: Female 35 years Head trauma, coagulopathy (Age 19-64y) COMPARISON: CT head dated 12/21/2019TECHNIQUE: Routine CT head without contrastFINDINGS:The ventricles and cerebral sulci are normal in caliber and configuration.No hydrocephalus, midline shift or pathological extra- axial fluidcollection is present. The basal cisterns are unremarkable.No acute intracranial hemorrhage or mass effect is present. The everett-whitematter differentiation is preserved. No parenchymal attenuation abnormalityis present.The calvarium and skull base are unremarkable. The mastoid air cells andvisualized paranasal air sinuses are clear.IMPRESSIONNormal CT headUnTitus Regional Medical CenterCT HEAD WO [id number] 22:41:[address] headCT HEAD WO CONTRAST HISTORY: Female 35 years Head trauma, coagulopathy (Age 19-64y) COMPARISON: CT head dated 12/21/[address] head without contrast FINDINGS: The ventricles and cerebral sulci are normal in caliber and configuration.No hydrocephalus, midline shift or pathological extra-axial fluidcollection is present. The basal cisterns are unremarkable. No acute intracranial hemorrhage or mass effect is present. The everett-whitematter differentiation is preserved. No parenchymal attenuation abnormalityis present. The calvarium and skull base are unremarkable. The mastoid air cells andvisualized paranasal air sinuses are clear. [facility], Radiant Results Inft User - 03/13/2021 5:[address] HEAD WO CONTRASTHISTORY: Female 35 years Head trauma, coagulopathy (Age 19-64y) COMPARISON: CT head dated 12/21/2019TECHNIQUE: Routine CT head without contrastFINDINGS:The ventricles and cerebral sulci are normal in caliber and configuration.No hydrocephalus, midline shift or pathological extra-axial fluidcollection is present. The basal cisterns are unremarkable.No acute intracranial hemorrhage or mass effect is present. The everett-whitematter differentiation is preserved. No parenchymal attenuation abnormalityis present.The calvarium and skull base are unremarkable. The mastoid air cells andvisualized paranasal air sinuses are clear.IMPRESSIONNormal CT headUnT[facility] CenterTROPONIN [id number] 22:16:22 Test Item Value Reference Interpretation Comments Range TROPONIN I (test 0.002 ng/mL See_Comment [Automated code = 7799583399) message] The system which generated this result transmitted reference range : <=0.034. The reference range was not used to interpret this result as normal/abnormal . SONIA (test code = Reference (Normal) SONIA) Range (defined by the 99th percentile reference limit): <= 0.034 ng/mL Note: Cardiac troponin begins to rise 3-4 hours after the onset of ischemia. Repeat in 4-6 hours if the sample was drawn within 3-4 hours of the onset of the symptom and found normal. Diagnosis of myocardial injury is made with acute changes in cTn concentrations with at least one serial sample above the 99th percentile upper reference limit (URL), taken together with the patient's clinical presentation. Biotin has been reported to cause a negative bias, interpret results relative to patient's use of biotin. Lab Interpretation Normal (test code = 74415-8) [facility] [id number] 22:16:22 Test Item Value Reference Range Interpretation Comments TROPONIN I (test code = 0.002 ng/mL See_Comment [Au tomated 4120175431) message] The sy stem which generated this result transmitted reference range : <=0.034. The reference range was not used to interpret this result as normal/abnormal . SONIA (test code = SONIA) Lab Interpretation Normal (test code = 16051-0) [facility]. METABOLIC PANEL ([id number])2021-03-13 22:05:22 Test Item Value Reference Range Interpretation Comments NA (test code = 136 mmol/L 135-145 1188770082) K (test code = 3.7 mmol/L 3.5-5.0 7020752006) CL (test code = 99 mmol/L 98-108 0540983696) CO2 TOTAL (test code = 27 mmol/L 23-31 8954624382) AGAP (test code = 2-16 8028920815) BUN (test code = 12 mg/dL 7-23 0201946860) GLUCOSE (test code = 115 mg/dL 70-110 H 2148115787) CREATININE (test code = 0.76 mg/dL 0.50-1.04 4407955686) TOTAL BILI (test code = 1.2 mg/dL 0.1-1.1 H 6699439005) CALCIUM (test code = 10.2 mg/dL 8.6-10.6 2583782104) T PROTEIN (test code = 9.4 g/dL 6.3-8.2 H 1945343655) ALBUMIN (test code = 5.1 g/dL 3.5-5.0 H 2809731679) ALK PHOS (test code = 82 U/L 34-122 4421489416) ALTv (test code = 14 U/L 5-35 1742-6) AST(SGOT) (test code = 31 U/L 13-40 0887310893) eGFR (test code = mL/min/1.73m2 5278645222) SONIA (test code = SONIA) Association of Glomerular Filtration Rate (GFR) and Staging of Kidney Disease* + --+ --+ ------+| GFR (mL/min/1.73 m2) ?| With Kidney Damage ?| ?Without Kidney Damage+ --------+ --------+ +| ?>90 ?| ?Stage one ?| ? Normal ?+ ---+ ---+ -------+| ?60-89 ?| ?Stage two ?| ? Decreased GFR ? + --+ --+ ------+| ?30-59 ?| ?Stage three ?| ? Stage three ? + --+ --+ ------+| ?15-29 ?| ?Stage four ? | ? Stage four ?+ ---+ ---+ -------+| ?<15 (or dialysis) ? ?| ?Stage five ? | ? Stage five ?+ ---+ ---+ -------+ *Each stage assumes the associated GFR level has been in effect for at least three months. ?Stages 1 to 5, with or without kidney disease, indicate chronic kidney disease. Notes: Determination of stages one and two (with eGFR >59mL/min/1.73 m2) requires estimation of kidney damage for at least three months as defined by structural or functional abnormalities of the kidney, manifested by either:Pathological abnormalities or Markers of kidney damage (including abnormalities in the composition of the blood or urine or abnormalities in imaging tests). Lab Interpretation Abnormal (test code = 93589-8) [facility]. METABOLIC PANEL ([id number])2021-03-13 22:05:22 Test Item Value Reference Range Interpretation Comments NA (test code = 9824424009) 136 mmol/L 135-145 K (test code = 0921096651) 3.7 mmol/L 3.5-5.0 CL (test code = 3694295757) 99 mmol/L 98-108 CO2 TOTAL (test code = 2809741454) 27 mmol/L 23-31 AGAP (test code = 1443259026) 2-16 BUN (test code = 0846239112) 12 mg/dL 7-23 GLUCOSE (test code = 2758575516) 115 mg/dL 70-110 H CREATININE (test code = 0.76 mg/dL 0.50-1.04 3146369072) TOTAL BILI (test code = 1.2 mg/dL 0.1-1.1 H 6657504127) CALCIUM (test code = 5204594935) 10.2 mg/dL 8.6-10.6 T PROTEIN (test code = 3838569631) 9.4 g/dL 6.3-8.2 H ALBUMIN (test code = 1016771527) 5.1 g/dL 3.5-5.0 H ALK PHOS (test code = 2437293606) 82 U/L 34-122 ALTv (test code = 1742-6) 14 U/L 5-35 AST(SGOT) (test code = 2967093664) 31 U/L 13-40 eGFR (test code = 3887744065) mL/min/1.73m2 SONIA (test code = SONIA) Lab Interpretation (test code = Abnormal 85212-4) [facility] WITH [id number] 21:59:25 Test Item Value Reference Range Interpretation Comments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 09:48:0057[facility]annCHEM OLNSG2011-35-14 09:48:000.4[facility] HermannCHEM RBGQI7914-40-64 09:48:55544Ujycqfwr HermannCHEM ZYPXC9304-15-35 09:48:002.2[facility] HermannCHEM BBRMH9210-87-21 09:48:003.4[facility] BiywbqjPSFYPTYEWT6358-45-65 09:48:0056.4 [facility] JsakfjxQOTPEAGLES9022-69-81 09:48:0032.0[facility] HermannHEMATOLOGY 2020-09-14 09:48:007.6[facility] ErphkwoGNEPAULNDV5069-73-87 09:48:003.2[facility] OmrxyuiTXFJAUKECF7763-47-88 09:48:000.8[facility] FkqcpwmICSCSTYIMH5533-90-72 09:48:002.3[facility] EfxxhcyOAZJOYEWSS6948-26-46 09:48:001.3[facility] [place] FSZLURJGKM7948-49-45 09:48:000.3[facility] NyigwafPLJLTDTXGE2106-08-27 09:48:000.1 [facility] NcqkautVFREXLFDCN0260-69-20 09:48:003+ *NA*(09/14/20 3:48 AM)[facility] IsukszoVVGPMFQGLD6562-81-84 09:48:004.1[facility] KaisqyxLJSOYJNOMB8360-75-34 09:48:003.58[facility] PbiffyiRFIQRITNLN5107-22-81 09:48:007.1[facility] [place] IXMRDTHRKJ8106-88-74 09:48:0022.5[facility] BighxtmFFVNBNSOCT5572-23-75 09:48:00 62.8[facility] EekngwtBICTOYKUBS0113-78-02 09:48:00 Test Item Value Reference Range Interpretation Comments MCH (test code = MCH) 19.8 pg 27.0-31.0 [facility] NtnidriUTEDJYEOJI5402-69-49 09:48:0031.5[facility] HermannHEMATOLOGY 2020-09-14 09:48:0023.2[facility] MxcevyxKPBSPWMVVQ9708-85-63 09:48:71920Hjaksuln CtnbuixLJMDEDQMAO0080-73-68 09:48:008.4[facility] HermannANEMIA JLQBI9195-10-19 22:56:0012[facility] HermannANEMIA XUCFD7703-41-07 22:56:97129Nzqrorzs [place] ANEMIA CDIMT2130-05-91 22:56:004[facility] HermannCHEM QGNAM2178-87-68 22:56:001.2 [facility] UetvkpkEJZROSPCLO7803-64-42 22:56:00Not Detected (09/13/20 4:56 PM) [facility]annANEMIA YBVCL2180-47-50 22:56:0012[facility] HermannANEMIA STUDY 2020-09-13 22:56:59613Jegcqhmd HermannANEMIA ZMYPB7118-95-85 22:56:004[facility]annCHEM VAXGD0066-51-57 22:56:001.2[facility] GqleggcUVBAQQCTWZ8521-81-20 22:56:00Not Detected (09/13/20 4:56 PM)[facility] HermannANEMIA FMITD4114-77-10 22:56:0012[facility] HermannANEMIA XWRIU9017-39-67 22:56:60886Dixppchn [place] ANEMIA EEAUT9979-87-92 22:56:004[facility] HermannCHEM ZNRNV7249-58-78 22:56:001.2 [facility] YwhylaqXYDDHRLRRO3863-31-20 22:56:00Not Detected (09/13/20 4:56 PM) [facility] RZOQD6874-15-21 20:59:00Amber *ABN*(09/13/20 2:59 PM) [facility] VNJQO1105-04-05 20:59:00Marked *ABN*(09/13/20 2:59 PM) [facility] VIHBZ3101-44-44 20:59:00 Test Item Value Reference Range Interpretation Comments UA Spec Grav (test code = UA Spec 1.027 1 Grav) [facility] LGXXG0330-88-99 20:59:00 Test Item Value Reference Range Interpretation Comments UA pH (test code = UA pH) 5.0 1 5.0-8.0 [facility] SDZIM1958-11-18 20:59:00Negative *NA*(09/13/20 2:59 PM) [facility] JPMNL6401-02-37 20:59:00Negative (09/13/20 2:59 PM) [facility] DXLHS8736-95-08 20:59:002.0[facility] BMOEM5669-76-41 20:59:00Positive *ABN*(09/13/20 2:59 PM)[facility] AGJQL1648-28-37 20:59:00Moderate *ABN*(09/13/20 2:59 PM)[facility] HWWAF1563-14-79 20:59:86741Nhxeccfm HermannURINE AND AIOXB5507-90-01 20:59:0018 [facility] CENQY9254-83-52 20:59:0049[facility] AND QLZLS1219-71-00 20:59:00Amber *ABN*(09/13/20 2:59 PM)[facility] SHKND9280-28-79 20:59:00Marked *ABN*(09/13/20 2:59 PM)[facility] HEKPZ3247-74-10 20:59:00 Test Item Value Reference Range Interpretation Comments UA Spec Grav (test code = UA Spec 1.027 1 Grav) [facility] VVKKX7001-68-43 20:59:00 Test Item Value Reference Range Interpretation Comments UA pH (test code = UA pH) 5.0 1 5.0-8.0 [facility] EZWNB6914-61-94 20:59:00Negative *NA*(09/13/20 2:59 PM) [facility] LHXPR1695-74-80 20:59:00Negative (09/13/20 2:59 PM) [facility] ZBKAW0870-58-89 20:59:002.0[facility] UEAXD7211-48-12 20:59:00Positive *ABN*(09/13/20 2:59 PM)[facility] BCNDO9540-28-50 20:59:00Moderate *ABN*(09/13/20 2:59 PM)[facility] BWABQ2300-24-23 20:59:72380Vqjczxxp HermannURINE AND ZBSWV4836-28-60 20:59:0018 [facility] QVTCE4423-07-36 20:59:0049[facility] PSNEZ6185-92-41 20:59:00Amber *ABN*(09/13/20 2:59 PM)[facility] AKJFR5813-25-87 20:59:00Marked *ABN*(09/13/20 2:59 PM)[facility] HRKHL7733-33-71 20:59:00 Test Item Value Reference Range Interpretation Comments UA Spec Grav (test code = UA Spec 1.027 1 Grav) [facility] IGPPL4665-29-90 20:59:00 Test Item Value Reference Range Interpretation Comments UA pH (test code = UA pH) 5.0 1 5.0-8.0 [facility] VFTVW6865-45-45 20:59:00Negative *NA*(09/13/20 2:59 PM) [facility] BBZMW7217-01-99 20:59:00Negative (09/13/20 2:59 PM) [facility] JUJGM6145-86-40 20:59:002.0[facility] LHHZK6687-54-67 20:59:00Positive *ABN*(09/13/20 2:59 PM)[facility] HXQPK3928-58-14 20:59:00Moderate *ABN*(09/13/20 2:59 PM)[facility] RWCAS0414-13-10 20:59:27028Rktpjtua HermannURINE AND MXZVJ4099-76-20 20:59:0018 [facility] JZOWG6706-59-59 20:59:0049[facility] HermannCHEM PANEL 2020-09-13 19:51:0091[facility] HermannCHEM TPRNO2444-95-81 19:51:0014[facility] HermannCHEM FAFHD9878-62-54 19:51:000.68[facility] HermannCHEM BCLQC3914-06-80 19:51:50211Qijbmicm HermannCHEM VMGPF7344-55-27 19:51:004.1[facility]annCHEM QSYVC5492-79-37 19:51:0095[facility]annCHEM METSK1620-25-01 19:51:0032 [facility]annCHEM GQIDC8254-44-04 19:51:008.7[facility] HermannCHEM PANEL 2020-09-13 19:51:007.4[facility] HermannCHEM IDCGB8696-01-24 19:51:003.2[facility]annCHEM HTYGE1559-52-39 19:51:0037[facility]annCHEM FXPNF4212-39-29 19:51:0048[facility]annCHEM DJYAA7482-16-99 19:51:0072[facility]annCHEM XCDEY0318-25-51 19:51:000.4[facility] HermannCHEM ALXEA4183-58-77 19:51:007.1 [facility]annCHEM BKUEE1003-13-96 19:51:00 Test Item Value Reference Range Interpretation Comments B/C Ratio (test code = B/C Ratio) 21 1 6-25 [facility]annCHEM SSOVF0783-84-41 19:51:004.2[facility] HermannCHEM PANEL 2020-09-13 19:51:00 Test Item Value Reference Range Interpretation Comments A/G Ratio (test code = A/G Ratio) 0.8 1 0.7-1.6 [facility]annCHEM LRIQF2145-69-68 19:51:62223Daheigoo HermannCHEM PANEL 2020-09-13 19:51:816072Pcbsxcte HermannCHEM ZAEDD0895-39-61 19:51:0024.0[facility]annCHEM IBUBZ1540-23-41 19:51:002.6[facility] SjekmxdSDGLOZXGBKMNS9444-70-32 19:51:00Negative *NA*(2/28/21 1:51 PM)[facility] AqyalidGIOSWASQDW4162-54-34 19:51:007.5[facility] OtnlfurHWZZVZIDOM5351-21-27 19:51:004.01[facility] [place] VCOMHQRBMG6805-16-30 19:51:007.8[facility] WzpcrvfBEJHOLAXET6744-53-31 19:51:00 24.9[facility] CpktreuUYBHGQFHYZ0718-68-98 19:51:0062.2[facility] HermannHEMATOLOGY 2020-09-13 19:51:00 Test Item Value Reference Range Interpretation Comments MCH (test code = MCH) 19.6 pg 27.0-31.0 [facility] GnoxfhkUOWDORMEBC2776-99-34 19:51:0031.5[facility] HermannHEMATOLOGY 2020-09-13 19:51:0022.6[facility] LfkuqnwSITLGDEOFI6534-64-86 19:51:21920Qsxuvupk FimzmyrVIOCKNPLVX2719-82-07 19:51:008.1[facility] OonwlolICIPYEUGZI9485-50-80 19:51:00See Note (09/13/20 1:51 PM)[facility] BbfcizqDHKGIMAUWH1252-13-43 19:51:00 Normal (09/13/20 1:51 PM)[facility] WrgssimKNWMACYRAK6589-89-23 19:51:0075.9 [facility] LsmgpxdMYJFVXGCTT4860-35-00 19:51:0013.6[facility] HermannHEMATOLOGY 2020-09-13 19:51:007.4[facility] IoldrxcXSEJRHUOCI1060-86-20 19:51:002.6[facility] CxlwaicIBVJZPDOUP6085-53-30 19:51:000.5[facility] BornjyaDOCVKFUYOK0430-43-92 19:51:005.7[facility] KbpnbntUHWJRIELCF7701-29-88 19:51:001.0[facility] [place] ZMMTRNLJFZ9526-78-33 19:51:000.6[facility] LgaelwtFFBAVYWCLI4730-36-24 19:51:000.2 [facility] WonprvoZUBGWNAQVO1216-55-24 19:51:002+ *ABN*(09/13/20 1:51 PM)[facility] DiomsrwBLKIANZLNF9320-04-45 19:51:002+ *ABN*(09/13/20 1:51 PM)[facility] [place] IEPHZTRBPQ6849-07-36 19:51:001+ (09/13/20 1:51 PM)[facility] HermannCHEM PANEL 2020-09-13 19:51:0091[facility] HermannCHEM WOMYO4391-31-38 19:51:0014[facility] HermannCHEM CYTYF7291-49-74 19:51:000.68[facility] HermannCHEM CJELF4588-07-07 19:51:68206Apfryhtf HermannCHEM HGVFI8155-14-74 19:51:004.1[facility] HermannCHEM RLXNZ9433-12-69 19:51:0095[facility]annCHEM YPMWC0922-65-41 19:51:0032 [facility]annCHEM ZQAJG5998-34-48 19:51:008.7[facility] HermannCHEM PANEL 2020-09-13 19:51:007.4[facility] HermannCHEM MVRLX6865-96-99 19:51:003.2[facility] HermannCHEM CODMC1087-96-24 19:51:0037[facility]annCHEM QXQTT2538-50-11 19:51:0048[facility]annCHEM EWXBK0627-54-03 19:51:0072[facility] HermannCHEM SDWOM8811-55-00 19:51:000.4[facility] HermannCHEM NEZYU1040-09-34 19:51:007.1 [facility]annCHEM CQUWH6849-80-64 19:51:00 Test Item Value Reference Range Interpretation Comments B/C Ratio (test code = B/C Ratio) 21 1 6-25 [facility]annCHEM UVSCW8830-12-62 19:51:004.2[facility] HermannCHEM PANEL 2020-09-13 19:51:00 Test Item Value Reference Range Interpretation Comments A/G Ratio (test code = A/G Ratio) 0.8 1 0.7-1.6 [facility]annCHEM OPTXQ8386-40-53 19:51:60590Uzmuhomb HermannCHEM PANEL 2020-09-13 19:51:789203Mzoikqjq HermannCHEM QWJZX4329-75-35 19:51:0024.0[facility] HermannCHEM TUMZF3010-84-60 19:51:002.6[facility] DamphhaNBPDOHYKYOQJG1230-42-40 19:51:00Negative *NA*(09/13/20 1:51 PM)[facility] IidrgelNFIJCYQHEJ7105-06-73 19:51:007.5[facility] WruavioPNWZGDIMUL9480-35-48 19:51:004.01[facility] [place] WVHJKQPEDI1889-62-29 19:51:007.8[facility] EdxbvonBYKQGNXGCL2070-25-49 19:51:00 24.9[facility] FfkunsnXTBNMDCQNZ4923-74-34 19:51:0062.2[facility] HermannHEMATOLOGY 2020-09-13 19:51:00 Test Item Value Reference Range Interpretation Comments MCH (test code = MCH) 19.6 pg 27.0-31.0 [facility] ZetycuiYXXBSLODOF0390-69-37 19:51:0031.5[facility] HermannHEMATOLOGY 2020-09-13 19:51:0022.6[facility] RvmwpivGPPBRPIBJO5727-22-98 19:51:39537Jmqxjlxo ClzdvbyWSBSJLCISM1762-67-92 19:51:008.1[facility] VfsjzjuPYKGLMATWN6775-02-45 19:51:00See Note (09/13/20 1:51 PM)[facility] TczyzrrOCTUSGGKBR2317-08-73 19:51:00 Normal (09/13/20 1:51 PM)[facility] LbgrpkpDTDJYCCPMP2755-36-97 19:51:0075.9 [facility] QjakhnsJPGEBZDVYI6338-59-52 19:51:0013.6[facility] HermannHEMATOLOGY 2020-09-13 19:51:007.4[facility] OkugitqIOHDTVEVKA9909-88-50 19:51:002.emorial SwvimsuKBSCNFSYNB6916-91-49 19:51:000.5[facility] WyjqcrwYGBLOTSLXQ8826-56-48 19:51:005.7[facility] XxmthupIDTZNROFSL3722-07-77 19:51:001.0[facility] [place] CAQOAPNEUU6849-32-65 19:51:000.6[facility] TmctquiRVYIZWYWVN7252-80-10 19:51:000.2 [facility] TbzbdxoVVDUPAJUZO9749-75-95 19:51:002+ *ABN*(09/13/20 1:51 PM)[facility] CyuiujtCKLBMWANUX1916-82-98 19:51:002+ *ABN*(09/13/20 1:51 PM)[facility] [place] LMXAGJPECP7399-03-33 19:51:001+ (09/13/20 1:51 PM)[facility] HermannHEMATOLOGY 2020-09-13 19:51:0062.2[facility] GxwvorvOLORWCREZN6189-77-57 19:51:00 Test Item Value Reference Range Interpretation Comments MCH (test code = MCH) 19.6 pg 27.0-31.0 [facility] LesneczXETQAXYTBC6614-01-24 19:51:0031.5[facility] HermannHEMATOLOGY 2020-09-13 19:51:0022.6[facility] KhklwgdVMZWFXAWLF8168-96-82 19:51:71587Pcjmwytk DimdfkxPIPKXXZUXZ8101-01-72 19:51:008.1[facility] RrfimhqBTKWAQEDOT4381-48-32 19:51:00See Note (09/13/20 1:51 PM)[facility] RrkrzmuHTHOVBJUMJ1402-91-07 19:51:00 Normal (09/13/20 1:51 PM)[facility] MwjlvgwEYFVRDUYUF5600-97-60 19:51:0075.9 [facility] BvhlxriVTUOGIMZJL2943-13-69 19:51:0013.6[facility] HermannHEMATOLOGY 2020-09-13 19:51:007.4[facility] SihicggBGGCFPWBZJ9625-80-06 19:51:002.6[facility] YpinoqqCYUYHRQSFW5451-78-99 19:51:000.5[facility] ElpnrliABKBACFPLC3686-85-73 19:51:005.7[facility] LrwqhbiBLNOFZAJNU5462-36-84 19:51:001.0[facility] [place] ACUPWRCXXG0428-85-07 19:51:000.6[facility] IgjrpfbFTRABNINKC5658-78-66 19:51:000.2 [facility] JaflkbzSWZLLODWIK0484-77-24 19:51:002+ *ABN*(09/13/20 1:51 PM)[facility] CcracimNSCIKXFDQL5754-75-11 19:51:002+ *ABN*(09/13/20 1:51 PM)[facility] [place] KLXTJBYWYT4328-98-38 19:51:001+ (09/13/20 1:51 PM)[facility] HermannCHEM PANEL 2020-09-13 19:51:0091[facility] HermannCHEM SVCVW2766-76-30 19:51:0014[facility] HermannCHEM JPXHF0541-35-90 19:51:000.68[facility]CHE[facility] IGNKM9460-31-42 19:51:37656Jthwciwf HermannCHEM HSBMR9960-27-91 19:51:004.1[facility] YYBAL4073-50-36 19:51:0095[facility] XANPT6258-43-25 19:51:0032 [facility] VGUTV2992-03-90 19:51:008.7[facility]annCHE[facility] PANEL 2020-09-13 19:51:007.4[facility] THUVX5817-45-55 19:51:003.2[facility] LVVDS5656-28-08 19:51:0037[facility]CHE[facility] DUTUU4784-45-58 19:51:0048[facility]annCHE[facility] WBENO5278-66-64 19:51:0072[facility] RFXMW1335-19-28 19:51:000.4[facility] ZBRVH3601-18-88 19:51:007.1 [facility] UKUAJ6713-11-41 19:51:00 Test Item Value Reference Range Interpretation Comments B/C Ratio (test code = B/C Ratio) 21 1 6-25 [facility] [id number] 19:51:004.2[facility] PANEL 2020-09-13 19:51:00 Test Item Value Reference Range Interpretation Comments A/G Ratio (test code = A/G Ratio) 0.8 1 0.7-1.6 [facility] [id number] 19:51:80538Myfnvtgr HermannCHEM PANEL 2020-09-13 19:51:408139Kmvoikvw HermannCHEM SHMMX0086-42-18 19:51:0024.0[facility]CHE[facility] NJTRI5790-73-95 19:51:002.6[facility] CpapgvcUONFNITBJLFPT5814-06-03 19:51:00Negative *NA*(09/13/20 1:51 PM)[facility] FossmvtHFNSNVMZEL4854-73-22 19:51:007.5[facility] JlixzguXRJSCXNEXM2298-15-07 19:51:004.01[facility] WISGFOLVSG1784-94-71 19:51:007.8[facility] ZgwewgbBUYPNAYRJH7186-02-32 19:51:00 24.9[facility] IrvqocbHDEEBSJSCM4785-28-89 21:09:00 Test Item Value Reference Range Interpretation Comments APPEARANCE (test code = Hazy Clear A 5621818997) COLOR (test code = Yellow Yellow 2821346946) PH (test code = 4.8-8.0 0719058170) SP GRAVITY (test code = 1.003-1.030 5584610812) GLU U QUAL (test code = Normal Normal 0279772882) BLOOD (test code = Negative Negative 5942570741) KETONES (test code = Negative Negative 5432280551) PROTEIN (test code = Negative Negative 2887-8) UROBILIN (test code = Normal Normal 1339791139) BILIRUBIN (test code = Negative Negative 5675185845) NITRITE (test code = Positive Negative A 9292132514) LEUK NIMESH (test code = 250/uL Negative A 7585517975) RBC/HPF (test code = See_Comment H [Autom ated message] 6508271123) The system [employer] generated this result transmitted ref erence range: 0 - 3 HP F. The reference range was not used to int erpret this result as normal/abnormal . WBC/HPF (test code = See_Comment H [Autom ated message] 9075179684) The system [employer] generated this result transmitted ref erence range: 0 - 5 HP F. The reference range was not used to int erpret this result as normal/abnormal . BACTERIA (test code = Many Negative A 3232942550) MUCOUS (test code = Marked Negative LPF A 2413288847) SQ EPITH (test code = HPF 5880296099) Lab Interpretation (test Abnormal code = 12372-8) [facility] [id number] 21:04:11 No acute intrathoracic abnormality, specifically no detectable radiographicfindings to suggest COVID-19 pneumonia. Disclaimer: Generally, the findings on chest imaging in COVID-19 are notspecific, and overlap with other infections, including influenza, H1N1,SARS and MERS.According to the Centers forDisease Control (CDC) and recent statement ofthe [employer], viral testing remains the only specificmethod of diagnosis. Confirmation with the viral test is required, even ifradiologic findings are suggestive of COVID-[address] Preliminary Report Dictated by Resident: Gina Gonzáles MD., have reviewed this study and agree with the abovereport.PROCEDURE: CHEST, SINGLE VIEW CLINICAL INDICATION: sob, tachypnea COMPARISON: Chest x-ray dated 02/19/2018. FINDINGS: Lungs: The lungs are hyperinflated but clear No pleural effusion or pneumothorax is seen. The heart is normal in size. No acute bony abnormality. Moderate dextroscoliosis is seen. [facility], Radiant Results Inft User - 12/21/2019 4:05 PM CDTPROCEDURE: CHEST, SINGLE VIEW CLINICAL INDICATION: sob, tachypnea COMPARISON: Chest x-ray dated 02/19/2018.FINDINGS:Lungs: The lungs are hyperinflated but clearNo pleural effusion or pneumothorax is seen. The heart is normal in size.No acute bony abnormality. Moderate dextroscoliosis is seen.IMPRESSIONNo acute intrathoracic abnormality, specifically no detectable radiographicfindings to suggest COVID-19 pneumonia.Disclaimer: Generally, the findings on chest imaging in COVID-19 are notspecific, and overlap with other infections, including influenza, H1N1,SARS and MERS.According to the Centers for Disease Control (CDC) and recent statement ofthe [employer], viral testing remains the only specificmethod of diagnosis. Confirmation with the viral test is required, even ifradiologic findings are suggestive of COVID-[address]Preliminary Report Dictated by Resident: Jud Zuluaga, Gina Morales MD., have reviewed this study and agree with the abovereport.[facility]COMP[facility] ([id number])2019-12-21 20:58:00 Test Item Value Reference Range Interpretation Comments NA (test code = 135 mmol/L 135-145 5303138154) K (test code = 2.9 mmol/L 3.5-5 LL 7226860633) CL (test code = 97 mmol/L 98-108 L 5650581536) CO2 TOTAL (test code = 27 mmol/L 23-31 6882455489) AGAP (test code = 2-16 1185822407) BUN (test code = 7 mg/dL 7-23 8929692041) GLUCOSE (test code = 97 mg/dL 70-110 5278018754) CREATININE (test code = 0.68 mg/dL 0.5-1.04 4341026639) TOTAL BILI (test code = 0.8 mg/dL 0.1-1.6 5007048893) CALCIUM (test code = 9.7 mg/dL 8.6-10.6 2012755968) T PROTEIN (test code = 8.5 g/dL 6.3-8.2 H 9736006737) ALBUMIN (test code = 4.9 g/dL 3.5-5 8068389395) ALK PHOS (test code = 67 U/L 34-122 3513345566) ALTv (test code = 13 U/L 5-35 1742-6) AST(SGOT) (test code = 27 U/L 13-40 0146386838) eGFR Calculation mL/min/1.73m2 (Non-) (test code = 2266469284) eGFR Calculation mL/min/1.73m2 () (test code = 2715422207) SONIA (test code = SONIA) Association of Glomerular Filtration Rate (GFR) and Staging of Kidney Disease* + --+ --+ ------+| GFR (mL/min/1.73 m2) ?| With Kidney Damage ?| ?Without Kidney Damage+ --------+ --------+ +| ?>90 ?| ?Stage one ?| ? Normal ?+ ---+ ---+ -------+| ?60-89 ?| ?Stage two ?| ? Decreased GFR ? + --+ --+ ------+| ?30-59 ?| ?Stage three ?| ? Stage three ? + --+ --+ ------+| ?15-29 ?| ?Stage four ? | ? Stage four ?+ ---+ ---+ -------+| ?<15 (or dialysis) ? ?| ?Stage five ? | ? Stage five ?+ ---+ ---+ -------+ *Each stage assumes the associated GFR level has been in effect for at least three months. ?Stages 1 to 5, with or without kidney disease, indicate chronic kidney disease. Notes: Determination of stages one and two (with eGFR >59mL/min/1.73 m2) requires estimation of kidney damage for at least three months as defined by structural or functional abnormalities of the kidney, manifested by either:Pathological abnormalities or Markers of kidney damage (including abnormalities in the composition of the blood or urine or abnormalities in imaging tests). 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 It is used under Emergency Use Authorization (EUA) by FDA. The limit of detection (LOD) of the assay is 125 Genome Equivalents/mL. A positive result is indicative of the presence of SARS-CoV-2 RNA. ?Clinical correlation with patient history and other diagnostic information is necessary to determine patient infection status. A negative (Not Detected) result does not preclude SARS-CoV-2 infection. In patients with clinical symptoms and other tests that are consistent with SARS-CoV-2 infection, negative results should be treated as presumptive negative and a new specimen should be tested with alternative PCR molecular test. Invalid: Please collect a new specimen for repeat patient testing if clinically indicated. Lab Interpretation Normal (test code = 33118-1) [facility]TR[facility] [id number] 20:52:00 Test Item Value Reference Range Interpretation Comments TROPONIN I (test <0.012 See_Comment [Automated code = 5396511584) message] The system which generated this result transmitted reference range : <=0.034 ng/mL. The reference range was not used to interpr et this result as normal/abnormal . SONIA (test code = Equal or Less than SONIA) 0.034 ng/ml---Normal ?Note: Cardiac troponin begins to rise 3-4 hours after the onset of ischemia. Repeat in 4-6 hours if the sample was drawn within 3-4 hours of the onset of the symptom and found normal. Between 0.035 and 0.120 ng/mL--- Borderline. Questionable myocardial injury or necrosis ? ?Note: Serial measurement may be necessary to confirm or exclude the diagnosis of myocardial injury or necrosis; Clinical correlation (symptoms, EKGs, imaging studies, and others) required; Repeat in 4-6 hours if clinically indicated. ? Equal or Higher than 0.121 ng/mL---Abnormal. Myocardial Injury or Necrosis Likely ? Biotin has been reported to cause a negative bias, interpret results relative to patient's use of biotin. ? Lab Interpretation Normal (test code = 62563-8) [facility] CenterCT [facility] WO [id number] 20:49:05 No acute intracranial findings. Preliminary Report Dictated by Resident: Jud Carballo I, Arely Machuca MD., have reviewed this study and agree with the abovereport.CT HEAD WO CONTRAST HISTORY: fell hit head + loc COMPARISON: None. TECHNIQUE: Noncontrast CT scan of the headwith coronal and sagittalreformats was performed. FINDINGS: The ventricles and cerebral sulci are normal in caliber and configuration.No hydrocephalus, midline shift or pathological extra-axial fluidcollection is present. The basal cisterns are unremarkable. There is no acute intracranial hemorrhage or significant mass effect. Noparenchymal attenuation abnormality. The everett-white matter differentiationis preserved. The mastoid air cells and paranasal air sinuses are clear. The calvariumand central skull base are unremarkable. [facility], Radiant Results Inft User - 12/21/2019 3:50 PM CDTCT HEAD WO CONTRASTHISTORY: fell hit head + loc COMPARISON: None.TECHNIQUE: Noncontrast CT scan of the head with tom nal and sagittalreformats was performed.FINDINGS:The ventricles and cerebral sulci are normal in caliber and configuration.No hydrocephalus, midline shift or pathological extra-axial fluidcollection ispresent. The basal cisterns are unremarkable.There is no acute intracranial hemorrhage or significant mass effect. Noparenchymal attenuation abnormality. The everett-white matter differentiationis preserved.The mastoid air cells and paranasal air sinuses are clear. The calvariumand central skull base areunremarkable.IMPRESSIONNo acute intracranial findings.Preliminary Report Dictated by Resident: Jud Zuluaga, Arely Machuca MD., have reviewed this study and agree with the abovereport.[facility]IUM2020-[facility] 20:41:00 Test Item Value Reference Range Interpretation Comments MAGNESIUM (test code = 3887987195) 1.7 mg/dL 1.7-2.4 Lab Interpretation (test code = Normal 78270-2) [facility] WITH [id number] 20:41:00 Test Item Value Reference Range Interpretation Comments WBC (test code = See_Comment [Automated 6990-2) message] The sy stem which generated this result transmitted reference range : 4.30 - 11.10 10*3/?L. The reference range was not used to interpret this result as normal/abnormal . RBC (test code = See_Comment [Automated 429-8) message] The sy stem which generated this result transmitted reference range : 3.93 - 5.25 10*6/?L. The reference range was not used to interpret this result as normal/abnormal . HGB (test code = 8.0 g/dL 11.6-15 L 718-7) HCT (test code = 28.1 % 35.7-45.2 L 4544-3) MCV (test code = 61.0 fL 80.6-95.5 L 787-2) MCH (test code = 17.4 pg 25.9-32.8 L 785-6) MCHC (test code = 28.5 g/dL 31.6-35.1 L 786-4) RDW-SD (test code = 44.2 fL 39-49.9 06323-3) RDW-CV (test code = 21.4 % 12-15.5 H 788-0) PLT (test code = See_Comment [Automated 777-3) message] The sy stem which generated this result transmitted reference range : 166 - 358 10*3/ ?L. The reference r yvonne was not used to interpret this result as normal/abnormal . MPV (test code = 9.8 fL 9.5-12.9 79532-3) NRBC/100 WBC (test See_Comment [Automat ed code = 6792181941) message] The system which generated this result transmitted reference range : 0.0 - 10.0 /100 WBCs. The refer ence range was not u sed to interpret th is result as normal/abnormal . NRBC x10^3 (test code <0.01 See_Comment [Auto mated = [id number]) message] The s ystem which generated this result transmitted reference range : 10*3/?L. The reference range was not used to interpret this result as normal/abnormal . GRAN MAT (NEUT) % 83.6 % (test code = 770-8) IMM GRAN % (test code 0.70 % = 7222921594) LYMPH % (test code = 9.1 % 736-9) MONO % (test code = 5.9 % 5905-5) EOS % (test code = 0.3 % 713-8) BASO % (test code = 0.4 % 706-2) GRAN MAT x10^3(ANC) 7.88 10*3/uL 1.88-7.09 H (test code = 1964278430) IMM GRAN x10^3 (test 0.07 10*3/uL 0-0.06 H code = 0483122207) LYMPH x10^3 (test code 0.86 10*3/uL 1.32-3.29 L = 731-0) MONO x10^3 (test code 0.56 10*3/uL 0.33-0.92 = 742-7) EOS x10^3 (test code = 0.03 10*3/uL 0.03-0.39 711-2) BASO x10^3 (test code 0.04 10*3/uL 0.01-0.07 = 704-7) Lab Interpretation Abnormal (test code = 31277-7) [facility] CenterLIPASE2020-06-06 20:40:00 Test Item Value Reference Range Interpretation Comments LIPASE (test code = 7521019094) 65 U/L 0-220 Lab Interpretation (test code = Normal 30671-5) [facility] CenterLactic Acid Whole [id number] 20:11:00 Test Item Value Reference Range Interpretation Comments LACTIC ACID (test code = 3.04 mmol/L 0.3-2.6 3719704363) [facility] CenterPOCT [id number] 20:09:00 Test Item Value Reference Range Interpretation Comments POCT PREG (test code = 1605) negative POCT PREG LOT # (test code = 3575) [id number] POCT PREG TEST DATE (test 02/14/2020 code = 3576) Lab Interpretation (test code = Normal 15038-0) [facility]
--- NOTE | 2021-10-26 22:27 | ER ---
Nurse's Notes [facility] Name: Divina Collazo Age: 36 yrs Sex: Female : 1985 Arrival Date: 10/26/2021 Time: 21:05 Bed Waiting Private MD: Diagnosis: ED Course: 10/26 21:05 Patient arrived in ED. ja2 22:26 Patient's name was called from ER lobby. No response. Unable to locate patient. Will bb disposition as left without being seen by a provider. Administered Medications: No medications were administered Outcome: 22:26 Patient left the ED. bb Signatures: Pratima Siegel RN RN bb Melina Chaparro
== END 2021-10-26 22:26 | disposition left against medical advice (07) ==
LOC: ER 21:02
DX: Z02.9 Encounter for administrative examinations, unspecified (principal)

== ENCOUNTER 2022-01-31 21:49 | Inpatient (IN) | payer OTHER ==
[2022-01-31] MEDS ORDERED: NA CHLORIDE 0.9% 1,000 ML ONE (22:20)
[2022-02-01 00:48] LABS: Hematocrit 31.7 % (36.0-45.0); Lymphocytes % 24.2 % (15.3-44.8); MCV 88.3 fL (80-100); MPV 7.9 fL (7.6-11.3); RBC Red Blood Cell Count 3.59 M/uL (3.86-4.86)
[2022-02-01 01:21] LABS: Albumin 1.9 g/dL (3.4-5.0); Bilirubin Total 2.1 mg/dL (0.2-1.0); Protein, Total 6.8 g/dL (6.4-8.2)
[2022-02-01 01:26] LABS: Potassium 2.7 mmol/L (3.5-5.1)
[2022-02-01] MEDS ORDERED: KCL 20 MEQ/100 mL IVPB 100 ML IV ONE (01:45)
[2022-02-01] MEDS ORDERED: NA CHLORIDE 0.9% 100 ML ONE (01:51)
[2022-02-01 02:01] LABS: Anisocytosis 1+; Blood Morphology Comment NOTED (NOT SEEN); Platelet Estimate ADEQ; Polychromasia 1+; White Blood Cell Scan OK (OK)
[2022-02-01 02:02] LABS: Urine Blood Negative (Negative); Urine Glucose Negative (Negative); Urine Protein 1+ (Negative); Urine pH 6.5 (5.0-7.0)
[2022-02-01] MEDS ORDERED: CEFTRIAXONE 1000 MG/VIAL ONE (02:31)
[2022-02-01 02:32] LABS: Urine Bacteria Loaded /HPF (<20); Urine Mucus 2+ /HPF (None Seen)
[2022-02-01] MEDS ORDERED: NA CHLORIDE 0.9% 50 ML ONE (02:32)
[2022-02-01 02:33] LABS: Urine RBC <5 /HPF (None Seen)
--- NOTE | 2022-02-01 02:34 | ER ---
Nurse's Notes [facility] Name: Divina Collazo Age: 36 yrs Sex: Female : 1985 Arrival Date: 01/31/2022 Time: 21:51 Bed 3 Private MD: Diagnosis: UTI/ Urinary tract infection, site not specified;Hypokalemia Presentation: 01/31 22:01 Chief complaint: Discharged from [facility] today, was inpatient for 12 days for alcohol and hb opiate detox, c/o generalized weakness, numbness in legs, and pain all over. Coronavirus screen: At this time, the client does not indicate any symptoms associated with coronavirus-19. Ebola Screen: No symptoms or risks identified at this time. Initial Sepsis Screen: Does the patient meet any 2 criteria? No. Patient's initial sepsis screen is negative. Does the patient have a suspected source of infection? No. Patient's initial sepsis screen is negative. Risk Assessment: Do you want to hurt yourself or someone else? Patient reports no desire to harm self or others. Onset of symptoms was January 31, 2022. 22:01 Method Of Arrival: Wheelchair hb 22:01 Acuity: GABBY 2 hb Triage Assessment: 22:15 General: Appears slender, unkempt, Behavior is calm, cooperative, appropriate for age. tw5 Pain: Complains of pain in "everywhere." Pain currently is 6 out of 10 on a pain scale. 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 - Social history:: Smoking status: Patient reports the use of cigarette tobacco products, smokes two packs cigarettes per day. - Family history:: not pertinent. - Hospitalizations: : Patient was recently seen at. Screenin:17 Abuse screen: Denies threats or abuse. Denies injuries from another. Nutritional tw5 screening: No deficits noted. Tuberculosis screening: No symptoms or risk factors identified. Fall Risk None identified. Assessment: 22:21 General: Reports "I cannot feel my legs, I cannot walk I have no balance. Neuro: Level tw5 of Consciousness is awake, alert, obeys commands, Oriented to person, place, time, situation. Respiratory: Airway is patent Trachea midline Respiratory effort is even, unlabored. : Reports incontinence. Vital Signs: 22:01 BP 88 / 67; Pulse 100; Resp 16; Temp 97.9; Pulse Ox 100% on R/A; Pain 8/10; hb 22:21 BP 112 / 87; Pulse 91; Resp 18; Pulse Ox 100% on R/A; tw5 23:00 BP 109 / 72; Pulse 85; Resp 15; Pulse Ox 100% on R/A; as6 02/01 01:55 BP 127 / 88; Pulse 77; Resp 18; Pulse Ox 100% on R/A; tw5 02:45 BP 101 / 68; Pulse 96; Resp 18 S; Pulse Ox 98% on R/A; as6 ED Course: 01/31 21:51 Patient arrived in ED. bp1 21:59 Agustin Torres MD is Attending Physician. rn 22:05 Triage completed. hb 22:05 Arm band placed on. hb 22:06 Joseph Talavera, RN is Primary Nurse. as6 22:17 Placed in gown. Bed in low position. Call light in reach. Side rails up X 1. Client tw5 placed on continuous cardiac and pulse oximetry monitoring. NIBP monitoring applied. Door closed. Noise minimized. Moved to private room. Warm blanket given. Verbal reassurance given. 22:17 No provider procedures requiring assistance completed. tw5 22:23 Initial lab(s) drawn, by ED staff, sent to lab. Inserted saline lock: 22 gauge in left tw5 wrist, using aseptic technique. Blood collected. inserted by Suly. 22:25 called lab for blood draw. tw5 22:56 XRAY Chest (1 view) In Process Unspecified. EDMS 02/01 00:00 Accessed Powerglide midline 18g 8cm using hospital protocol with good blood return and bb flushes easily pt tolerated well Right upper arm. 00:00 Lab(s) recollected, by me, sent to lab. First set of blood cultures drawn by me. bb 00:15 Second set of blood cultures drawn by me. bb 01:07 CBC with Diff Sent. tw5 01:07 CMP Sent. tw5 01:07 Lipase Sent. tw5 01:34 Blood Culture Adult (2) Sent. 01:55 Urine collected: straight cath specimen, cloudy, Amount Returned: 200mL. 01:55 Urine Microscopic Only Sent. 02:28 Scott Torres MD is Hospitalizing Provider. rn 04:14 Patient admitted, IV remains in place. Administered Medications: 01/31 22:27 Drug: NS 0.9% 1000 ml Route: IV; Rate: 1 bolus; Site: left wrist; tw02/01 04:01 Follow up: Response: No adverse reaction; IV Status: Completed infusion; IV Intake: aa9 1000ml 01:47 Drug: Potassium Chloride 20 mEq Route: IV; Rate: calculated rate; Site: right upper arm; 04:01 Follow up: IV Status: Completed infusion aa 04:01 Drug: Rocephin (cefTRIAXone) 1 grams Route: IV; Rate: calculated rate; Site: right aa9 upper arm; 04:10 Follow up: Response: No adverse reaction; IV Status: Completed infusion; IV Intake: [id number] Medication: 04:14 VIS not applicable for this client. Intake: 04:01 IV: 1000ml; Total: 1000ml. aa9 04:10 IV: 50ml; Total: 1050ml. Outcome: 02:33 Decision to Hospitalize by Provider. rn 04:02 Admitted to Med/surg tw 04:13 Admitted to Med/surg accompanied by nurse, with chart, [facility] 04:13 Condition: stable 04:13 Instructed on the need for admit. 04:14 Patient left the ED. Signatures: Dispatcher [employer] EDMS Pratima Siegel RN RN bb Nieto, Roman, MD MD rn Baxter, Heather, RN RN hb Paniauga, Brittany bp1 Wood, Tiffany Joseph Talavera RN RN as6 Laura Harden RN RN aa9 Corrections: (The following items were deleted from the chart) 01:15 00:00 Accessed Powerglide midline 18g 8cm using hospital protocol with good blood bb return and flushes easily pt tolerated well bb 01:56 01:46 SARS-COV-2 RT PCR+MOL.LAB.BRZ drawn and sent. EDMS
--- NOTE | 2022-02-01 02:34 | EDPHYS ---
Physician Documentation [facility] Name: Divina Collazo Age: 36 yrs Sex: Female : 1985 Arrival Date: 01/31/2022 Time: 21:51 Bed 3 Private MD: ED Physician Agustin Torres HPI: 01/31 22:32 This 36 yrs old Female presents to ER via Wheelchair with complaints of Pain All Over, rn Numbness. 22:32 Pt reports 12 day admission at detox facility for opiates and ETOH. Reports just rn discharged today, came in tonight for "pain all over", and generalized weakness and muscle aches. Reports has cirrhosis of liver. No fever. No chills. No vomiting or diarrhea. Reports supposed to be taking abx for UTI but has not had them filled. Also reports tingling to both legs for atleast 4 months, multiple ER visits and hospitalizations without etiology for tingling in legs. No weakness. No bowel or bladder problems. . Onset: The symptoms/episode began/occurred at an unknown time. Severity of symptoms: At their worst the symptoms were mild in the emergency department the symptoms are unchanged. The patient has experienced similar episodes in the past. The patient has been recently seen by a physician:. 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 - Social history:: Smoking status: Patient reports the use of cigarette tobacco products, smokes two packs cigarettes per day. - Family history:: not pertinent. - Hospitalizations: : Patient was recently seen at. ROS: 22:32 Constitutional: Negative for fever, chills, and weight loss, Eyes: Negative for injury, rn pain, redness, and discharge, Neck: Negative for injury, pain, and swelling, Cardiovascular: Negative for chest pain, palpitations, and edema, Respiratory: Negative for shortness of breath, cough, wheezing, and pleuritic chest pain, Abdomen/GI: Negative for abdominal pain, nausea, vomiting, diarrhea, and constipation, Back: Negative for injury and pain, MS/Extremity: Negative for injury and deformity, Skin: Negative for injury, rash, and discoloration, Neuro: Negative for seizure Exam: 22:32 Constitutional: Thin female, disheveled. Head/Face: Normocephalic, atraumatic. Eyes: rn Pupils equal round and reactive to light, extra-ocular motions intact. Periorbital areas with no swelling, redness, or edema. Cardiovascular: Regular rate and rhythm. No pulse deficits. Respiratory: No increased work of breathing, no retractions or nasal flaring. Abdomen/GI: Soft, non-distended, mild right sided abd tenderness Skin: Warm, dry MS/ Extremity: Pulses equal, no cyanosis. Neurovascular intact. Full, normal range of motion. Equal circumference. Neuro: Awake and alert, GCS 15 22:51 ECG was reviewed by the Attending Physician. rn Vital Signs: 22:01 BP 88 / 67; Pulse 100; Resp 16; Temp 97.9; Pulse Ox 100% on R/A; Pain 8/10; hb 22:21 BP 112 / 87; Pulse 91; Resp 18; Pulse Ox 100% on R/A; tw5 23:00 BP 109 / 72; Pulse 85; Resp 15; Pulse Ox 100% on R/A; as6 02/01 01:55 BP 127 / 88; Pulse 77; Resp 18; Pulse Ox 100% on R/A; tw5 02:45 BP 101 / 68; Pulse 96; Resp 18 S; Pulse Ox 98% on R/A; as6 MDM: 01/31 21:59 Patient medically screened. rn 02/01 02:26 Differential Diagnosis sepsis, UTI, bacteremia, untreated UTI, dehydration, metabolic rn derangement. Data reviewed: vital signs, nurses notes, lab test result(s), and as a result, I will admit patient. Counseling: I had a detailed discussion with the patient and/or guardian regarding: the historical points, exam findings, and any diagnostic results supporting the discharge/admit diagnosis, lab results, the need for further work-up and treatment in the hospital. Response to treatment: the patient's symptoms have mildly improved after treatment, and as a result, I will admit patient. Admission orders: after a detailed discussion of the patient's condition and case, the admit orders are written by me. ED course: Pt with UTI, prescribed abx 1 week ago and still hasn't had them filled, initial BP low, improved with fluids, normal lactate. Will admit to hospitalist service for IV abx and further care. . 01/31 22:09 Order name: CBC with Diff; Complete Time: 02:05 rn 01/31 22:09 Order name: CMP; Complete Time: 04:32 rn 01/31 22:09 Order name: Lipase; Complete Time: 04:32 rn 01/31 22:09 Order name: Urine Microscopic Only; Complete Time: 02:34 rn 01/31 22:09 Order name: SARS-COV-2 RT PCR (Document "Date of Onset" if Symptomatic); Complete Time: rn 03:07 01/31 22:10 Order name: Blood Culture Adult (2) rn 01/31 22:10 Order name: Urine Culture rn 01/31 22:10 Order name: Lactate; Complete Time: 00:49 rn 02/01 00:52 Order name: CBC Smear Scan; Complete Time: 02:05 EDMS 02/01 02:02 Order name: Urine Dipstick-Ancillary; Complete Time: 02:05 EDMS 02/01 02:10 Order name: Urine --Ancillary (enter results); Complete Time: 02:30 wm 02/01 03:06 Order name: Magnesium la 02/01 03:06 Order name: Phosphorus la 02/01 03:07 Order name: PT-INR; Complete Time: 04:32 la1 01/31 22:09 Order name: IV Saline Lock; Complete Time: 22:24 rn 01/31 22:09 Order name: Labs collected and sent; Complete Time: 22:24 rn 01/31 22:09 Order name: Urine Dipstick-Ancillary (obtain specimen); Complete Time: 01:55 rn 01/31 22:09 Order name: XRAY Chest (1 view) rn 01/31 22:09 Order name: EKG; Complete Time: 22:10 rn 01/31 22:09 Order name: EKG - Nurse/Tech; Complete Time: 01:07 rn 02/01 03:35 Order name: Phosphorus; Complete Time: 04:32 EDMS 02/01 03:35 Order name: Magnesium; Complete Time: 04:32 EDMS EC/18 22:51 Rate is 86 beats/min. Rhythm is regular. QRS Wilsey is Normal. CA interval is normal. QRS rn interval is normal. QT interval is normal. No Q waves. T waves are Normal. No ST changes noted. Clinical impression: NSR w/ Non-specific ST/T Changes. Interpreted by me. Reviewed by me. Administered Medications: 22:27 Drug: NS 0.9% 1000 ml Route: IV; Rate: 1 bolus; Site: left wrist; tw5 02/01 04:01 Follow up: Response: No adverse reaction; IV Status: Completed infusion; IV Intake: aa9 1000ml 01:47 Drug: Potassium Chloride 20 mEq Route: IV; Rate: calculated rate; Site: right upper arm;tw5 04:01 Follow up: IV Status: Completed infusion aa9 04:01 Drug: Rocephin (cefTRIAXone) 1 grams Route: IV; Rate: calculated rate; Site: right aa9 upper arm; 04:10 Follow up: Response: No adverse reaction; IV Status: Completed infusion; IV Intake: [id number] Disposition Summary: 02/01/22 02:33 Hospitalization Ordered Hospitalization Status: Observation rn Provider: Scott Torres rn Location: Telemetry/MedSurg (observation) rn Condition: Stable rn Problem: new rn Symptoms: have improved rn Bed/Room Type: Standard rn Room Assignment: 229(02/01/22 03:11) mw Diagnosis - UTI/ Urinary tract infection, site not specified rn - Hypokalemia rn Forms: - Medication Reconciliation Form rn - SBAR form rn Signatures: Dispatcher [employer] [facility] Kenia Kendrick RN RN mw Nieto, Roman, MD MD rn Attema, Lee, GLOVE PRINTER-C GLOVE PRINTER-[facility] [place]1 Carol Rhoades RN RN hb Wood, Tiffany tw5 Laura Harden RN RN aa9 Corrections: (The following items were deleted from the chart) 01:56 01/31 22:10 SARS-COV-2 RT PCR+MOL.LAB.BRZ ordered. [facility] 02/01 03:11 02:33 rn kesha
[2022-02-01 03:20] LABS: Protime INR 1.73
--- NOTE | 2022-02-01 03:29 | P.HP ---
Certification for Inpatient Patient admitted to: Observation With expected LOS: <2 Midnights Patient will require the following post-hospital care: None Practitioner: I am a practitioner with admitting privileges, knowledge of patient current condition, hospital course, and medical plan of care. Services: Services provided to patient in accordance with Admission requirements found in Title 42 Section 412.3 of the Code of Federal Regulations <Basil Sesay - Last Filed: 02/01/22 03:24> Patient History Date of Service: 02/01/22 Reason for admission: UTI, hypokalemia, weakness History of Present Illness: 36-year-old female with history of cirrhosis of the liver secondary to alcohol abuse, hypertension, history of opioid abuse presented to the emergency department for weakness. She was discharged from [facility] on 01/21/2022 with a prescription for Omnicef for UTI and has been at a drug alcohol recovery facility since her discharge. She was discharged from the drug alcohol facility yesterday around 4 PM, she felt extremely weak as if she cannot stand up and therefore presented to the emergency department for evaluation during her stay in the emergency department she was found to have significant hypokalemia as well as persistent urinary tract infection as she had not taken her antibiotics. Her initial blood pressure was low around 88 systolic although improved after IV fluids initial lactate was negative only met 1 out of 4 SIRS criteria with heart rate of 100. She is complaining of paresthesias of the lower extremities which she reports been going on for many months, reports up to 6 separate hospital visits for similar complaints without formal diagnosis. Will admit for further evaluation and management of UTI, weakness, hypokalemia. I have also added magnesium, phosphorus, INR levels. - Past Medical/Surgical History -: Cirrhosis of the liver -: Diet-controlled diabetes -: Hypertension -: history of alcohol/opioid abuse -: Psychosocial/ Personal History: Patient lives at home with her and children - Family History Sister Notes: Depression - Social History Smoking Status: Current every day smoker Counseled patient to stop smoking for: less than 10 minutes Smoking therapy provided: Yes Alcohol use: No CD- Drugs: No Caffeine use: Yes Place of Residence: Home <Basil Sesay - Last Filed: 02/01/22 03:24> Date of Service: 02/01/22 <Scott Torres - Last Filed: 02/01/22 17:18> Review of Systems 10-point ROS is otherwise unremarkable General: Weakness, Malaise <Basil Sesay - Last Filed: 02/01/22 03:24> Physical Examination - Physical Exam General: Alert, In no apparent distress, Oriented x3 HEENT: Atraumatic, PERRLA, Mucous membr. moist/pink, EOMI, Sclerae nonicteric Neck: Supple, 2+ carotid pulse no bruit, No LAD, Without JVD or thyroid abnormality Respiratory: Clear to auscultation bilaterally, Normal air movement Cardiovascular: Regular rate/rhythm, Normal S1 S2 Capillary refill: <2 Seconds Gastrointestinal: Normal bowel sounds, No tenderness Musculoskeletal: No tenderness Integumentary: No rashes Neurological: Normal gait, Normal speech, Normal strength at 5/5 x4 extr, Normal tone, Sensation intact (Reports paresthesias bilateral lower extremities), Normal affect, Other (Patient mildly tremulous) - Studies Laboratory Data (last 24 hrs) 02/01/22 03:06: Phosphorus Cancelled, Magnesium Cancelled 02/01/22 00:00: PT 19.3 H, INR 1.73 01/31/22 23:59: Sodium 138, Potassium 2.7 L*, BUN 3 L, Creatinine 0.47 L, Glucose 112 H, Total Bilirubin 2.1 H, AST 66 H, ALT 23, Alkaline Phosphatase 208 H, Lipase 31 L 01/31/22 23:59: WBC 4.1 L, Hgb 10.8 L, Hct 31.7 L, Plt Count 180 <Basil Sesay - Last Filed: 02/01/22 03:24> - Studies Laboratory Data (last 24 hrs) 02/01/22 03:06: Phosphorus Cancelled, Magnesium Cancelled 02/01/22 00:00: PT 19.3 H, INR 1.73 01/31/22 23:59: Sodium 138, Potassium 2.7 L*, BUN 3 L, Creatinine 0.47 L, Glucose 112 H, Phosphorus 2.2 L, Magnesium 1.8, Total Bilirubin 2.1 H, AST 66 H, ALT 23, Alkaline Phosphatase 208 H, Lipase 31 L 01/31/22 23:59: WBC 4.1 L, Hgb 10.8 L, Hct 31.7 L, Plt Count 180 <Scott Torres Last Filed: 02/01/22 17:18> Assessment and Plan - Plan Assessment: UTI Hypokalemia Weakness Alcoholic cirrhosis of the liver History of alcohol/opioid abuse Tobacco abuse Plan: UTI: Urine culture obtained does not appear to be septic at this time will provide with Rocephin daily. Hypokalemia: Have sent off for magnesium/phosphorus levels as well potassium was replaced in the ER, protocol in place. Weakness: Possibilities electrolyte imbalances, medical debility. PT consult in place, patient reports she has been walking with a walker. Alcoholic cirrhosis of the liver: Labs have improved from previous, patient denies alcohol intake for the last 12 days. Continue to monitor diet labs daily, have sent off for an INR level. History of alcohol/opioid abuse: Counseled on need for continued cessation. Tobacco abuse: Counseled on need for cessation smokes 2 packs/day will provide with NicoDerm patch. DVT PPX: Lovenox Code status: Full Discharge Plan: Home Plan to discharge in: 24 Hours - Advance Directives Does patient have a Living Will: No Does patient have a Durable POA for Healthcare: No - Code Status/Comfort Care Code Status Assessed: Yes (Full code) Critical Care: No Time Spent Managing Pts Care (In Minutes): 70 <Basil Sesay - Last Filed: 02/01/22 03:24> - Plan Plan of care reviewed and agree as noted above. Patient's symptoms likely secondary to UTI, loaded bacteria in urine. Continue rocephin, f/u urine culture given incomplete antibiotic regimen PT consulted - pt reports debility / generalized weakness reports h/o opioid use disorder, has been receiving suboxone 2mg BID, did not get any on discharge from facility, has appointment with suboxone clinic coming up no suboxone available in hospital, will give low dose methadone x1 today to gloria id withdrawal <Scott Torres - Last Filed: 02/01/22 17:18>
[2022-02-01 03:35] LABS: Magnesium 1.8 mg/dL (1.8-2.4); Phosphorus 2.2 mg/dL (2.5-4.9)
[2022-02-01 04:44] VITALS: BMI 16.4
[2022-02-01] MEDS ORDERED: ONDANSETRON 4 MG/2 ML VIAL IV PRN (05:51)
[2022-02-01] MEDS ORDERED: NA CHLORIDE 0.9% 1,000 ML IV SCH (05:51)
--- NOTE | 2022-02-01 08:14 | EKG ---
Test Date: 2022-01-31 Test Time: 22:44:32 [place] Pipe Covering: MEASUREMENT RESULTS: Intervals: Rate: 86 [place]: 120 QRSD: 96 QT: 398 QTc: 476 [place]: P: 79 [place]: 120 QRS: 67 T: 74 INTERPRETIVE STATEMENTS: Normal sinus rhythm Possible Left atrial enlargement Left ventricular hypertrophy with repolarization abnormality Abnormal ECG Compared to ECG 10/28/2021 16:40:46 Left ventricular hypertrophy now present Early repolarization now present Sinus tachycardia no longer present ST (T wave) deviation no longer present Prolonged QT interval no longer present Electronically Signed On 02-01-22 08:12:25 CDT by Brody Yeung
[2022-02-01] MEDS: CEFTRIAXONE 1,000 MG in NA CHLORIDE 0.9% 50 ML IVPB SCH (09:22)
[2022-02-01] MEDS: NICOTINE 21 MG/PAT TD SCH (09:22)
[2022-02-01] MEDS: ENOXAPARIN 40 MG/0.4 ML SQ SCH (09:23)
[2022-02-01] MEDS: ENSURE ENLIVE 237 ML CAN PO SCH ×2 (14:08→20:18)
--- NOTE | 2022-02-01 15:46 | RAD REPORT ---
EXAM DESCRIPTION: RAD - Chest Single View - 01/31/2022 10:54 pm CLINICAL HISTORY: 36 years Female cirrhosis, hypotension TECHNIQUE: One view of the chest. COMPARISON: No prior exams provided for comparison. FINDINGS: There is S-shaped thoracolumbar scoliosis. The lungs are clear without focal consolidation, effusion, or pneumothorax. The cardiomediastinal syed houette and central pulmonary vasculature are normal. IMPRESSION: No acute cardiopulmonary abnormalities. Electronically signed by: Marissa Ortiz MD 01/31/2022 11:13 PM CDT Due to temporary technical issues with the PACS/Fluency reporting system, reports are being signed by the in house radiologists without review as a courtesy to insure prompt reporting. The interpreting radiologist is fully responsible for the content of the report.
[2022-02-01] MEDS ORDERED: METHADONE HCL 10 MG TAB PO ONE (16:00)
[2022-02-02 05:14] LABS: Albumin 1.6 g/dL (3.4-5.0); Magnesium 1.9 mg/dL (1.8-2.4); Phosphorus 2.1 mg/dL (2.5-4.9); Potassium 3.1 mmol/L (3.5-5.1); Protein, Total 5.7 g/dL (6.4-8.2)
[2022-02-02 05:15] LABS: Absolute Lymphocytes (CBC) 1.1 K/uL (0.7-4.9); Hematocrit 27.8 % (36.0-45.0); Lymphocytes % 37.7 % (15.3-44.8); MCV 88.5 fL (80-100); MPV 7.7 fL (7.6-11.3); RBC Red Blood Cell Count 3.14 M/uL (3.86-4.86)
[2022-02-02 05:35] LABS: Anisocytosis 1+; Blood Morphology Comment NOTED (NOT SEEN); Platelet Estimate ADEQ; White Blood Cell Scan OK (OK)
[2022-02-02] MEDS ORDERED: POTASSIUM CL SA 10 MEQ TAB PO ONE (09:00)
[2022-02-02] MEDS ORDERED: POTASSIUM PHOS IN 0.9 % NACL 15 MMOL/250 ML BAG IV ONE (09:00)
[2022-02-02] MEDS: ENSURE ENLIVE 237 ML CAN PO SCH ×3 (09:13→20:24)
[2022-02-02] MEDS: CEFTRIAXONE 1,000 MG in NA CHLORIDE 0.9% 50 ML IVPB SCH (09:14)
[2022-02-02] MEDS: ENOXAPARIN 40 MG/0.4 ML SQ SCH (09:15)
[2022-02-02] MEDS: NICOTINE 21 MG/PAT TD SCH (09:15)
[2022-02-02] MEDS: FOLIC ACID 1 MG TABLET PO SCH (09:15)
[2022-02-02] MEDS: THIAMINE HCL 100 MG TABLET PO SCH (09:15)
[2022-02-02 11:57] VITALS: O2SAT 98
--- NOTE | 2022-02-02 12:16 | P.CNS ---
Date of Consult: 02/02/22 Chief Complaint: UTI, hypokalemia, weakness History of Present Illness: The patient is a 36-year-old female with a past medical history of polysubstance abuse, alcoholic cirrhosis, hypertension, and protein caloric malnutrition who presented to the emergency department secondary to weakness. She was discharged from [facility] on 01/21/2022 with a prescription for Omnicef for a UTI however did not oyster picker her prescription. Urine culture at our facility growing gram-negative rods, blood culture shows no growth. Patient has noted leukopenia, and anemia. Also has elevated totally bilirubin, AST elevation, and low albumin. She has been empirically placed on Rocephin. She has a midline that was placed on the of this month. Allergies propoxyphene [From Darvocet-N] Allergy (Verified 02/01/22 05:35) Nausea/Vomiting Home Medications: ARIPiprazole [Abilify Mycite] 10 mg PO BEDTIME 02/01/22 Folic Acid 1 mg PO DAILY 02/01/22 Furosemide [Lasix*] 20 mg PO DAILY 02/01/22 Lactulose 30 ml PO TID 02/01/22 Mvit-Mins/Folic Acid/Soy Isofl [One-A-Day Menopause Formula Tb] 1 tab PO DAILY 02/01/22 Spironolactone [Aldactone*] 25 mg PO DAILY 02/01/22 Thiamine HCl 100 mg PO DAILY 02/01/22 Trazodone [Desyrel*] 50 mg PO BEDTIME 02/01/22 - Past Medical/Surgical History Diabetic: No -: Cirrhosis of the liver -: Diet-controlled diabetes -: Hypertension -: history of alcohol/opioid abuse -: Psychosocial/ Personal History: Patient lives at home with her and children - Family History Sister Notes: Depression - Social History Smoking Status: Current every day smoker Alcohol use: No CD- Drugs: No Caffeine use: Yes Place of Residence: Homeless Review of Systems 10-point ROS is otherwise unremarkable Physical Examination Temp Pulse Resp BP Pulse Ox 98.2 F 84 16 98/65 100 02/02/22 12:00 02/02/22 12:00 02/02/22 12:00 02/02/22 12:00 02/02/22 12:00 General: Oriented x3 HEENT: Atraumatic, Scleral icterus Respiratory: Clear to auscultation bilaterally, Normal air movement Capillary refill: <2 Seconds Gastrointestinal: Normal bowel sounds, No ascites, No tenderness, No masses Integumentary: No rashes, No breakdown, No significant lesion Conclusions/Impression: Antibiotics: Rocephin: 02/01current Assessment/plan Urinary tract infection Urine culture obtained on 02/01 preliminary results growing gram-negative rods, waiting speciation/susceptibility. Recommend continuing Rocephin at this time, patient has midline placed. Secondary to patient's history of polysubstance abuse, recommend pulling all lines prior to discharge. Alcoholic cirrhosis Continue electrolyte supplementation Leukopenia Continue to monitor Plan of care discussed with Dr. Garner Thank you for consultation
[2022-02-02] MEDS: METHADONE HCL 10 MG TAB PO SCH (14:05)
--- NOTE | 2022-02-02 18:36 | P.PN ---
Date of Service: 02/02/22 Subjective: Feeling better, appetite improving, ambulating better Very fatigued, chronic pain ROS: 10 point ROS as noted above, otherwise negative Physical exam GEN: Alert, oriented, NAD, mild jaundice HEENT: Normal conjunctiva, sclera mild icterus CV: Regular rate and rhythm, no edema Pulm: Nonlabored respirations on room air ABD: Soft, nontender, nondistended Neuro: Normal speech, normal affect, bilateral lower extremity paresthesias Problem List UTI Hypokalemia Weakness Alcoholic cirrhosis of the liver History of alcohol/opioid abuse Tobacco abuse f/u urine culture reportedly had +blood culture, but I do not see result monitor and f/u blood culture methadone 10mg daily for now. patient states has f/u appointment for suboxone; was taking suboxone up until admission seems to be improving overall lfts stable VTE: lovenox code: full Dispo: home, anticipate tomorrow
[2022-02-03 05:08] LABS: Absolute Lymphocytes (CBC) 1.2 K/uL (0.7-4.9); Hematocrit 27.4 % (36.0-45.0); Lymphocytes % 36.2 % (15.3-44.8); MCV 89.2 fL (80-100); MPV 7.6 fL (7.6-11.3); RBC Red Blood Cell Count 3.07 M/uL (3.86-4.86)
[2022-02-03 05:24] LABS: ALT/SGPT 18 U/L (12-78); AST/SGOT 53 U/L (15-37); Albumin 1.4 g/dL (3.4-5.0); Alkaline Phosphatase 159 U/L (45-117); Bicarbonate 28 mmol/L (21-32); Bilirubin Total 1.9 mg/dL (0.2-1.0); Glomerular Filtration Rate 144 ml/min (=/>90); Glucose Level 98 mg/dL (74-106); Magnesium 1.9 mg/dL (1.8-2.4); Phosphorus 2.2 mg/dL (2.5-4.9); Potassium 3.5 mmol/L (3.5-5.1); Protein, Total 5.4 g/dL (6.4-8.2); Sodium Level 137 mmol/L (136-145)
[2022-02-03 05:25] LABS: BUN Blood Urea Nitrogen < 3 mg/dL (7-18)
[2022-02-03] MEDS ORDERED: POTASSIUM CL SA 10 MEQ TAB PO ONE (08:04)
[2022-02-03] MEDS: ENSURE ENLIVE 237 ML CAN PO SCH (09:00)
[2022-02-03] MEDS: FOLIC ACID 1 MG TABLET PO SCH (09:11)
[2022-02-03] MEDS: NICOTINE 21 MG/PAT TD SCH (09:12)
[2022-02-03] MEDS: METHADONE HCL 10 MG TAB PO SCH (09:12)
[2022-02-03] MEDS: CEFTRIAXONE 1,000 MG in NA CHLORIDE 0.9% 50 ML IVPB SCH (09:18)
[2022-02-03] MEDS: ENOXAPARIN 40 MG/0.4 ML SQ SCH (09:18)
[2022-02-03] MEDS: THIAMINE HCL 100 MG TABLET PO SCH (09:18)
--- NOTE | 2022-02-03 11:23 | P.PN ---
Subjective Date of Service: 02/03/22 Chief Complaint: UTI, hypokalemia, weakness Patient seen and examined at bedside, no acute events for past 24 hours. Review of Systems 10-point ROS is otherwise unremarkable Physical Examination - Vital Signs Temperature: 98.1 F Blood Pressure: 103/61 Pulse: 83 Respirations: 16 Pulse Ox (%): 98 - Studies 02/01/22 01:57 Clean Catch Urine Rocky Count - Final >100,000 CFU/ML. 02/01/22 01:57 Clean Catch Urine - Final Escherichia Coli Esbl Gram Neg S[place]iman Microbiology Data (last 24 hrs): 02/01/22 01:57 Clean Catch Urine Rocky Count - Final >100,000 CFU/ML. 02/01/22 01:57 Clean Catch Urine - Final Escherichia Coli Esbl Gram Neg Suleiman Assessment And Plan - Plan Physical Exam: General: Oriented x3 HEENT: Atraumatic, Scleral icterus Respiratory: Clear to auscultation bilaterally, Normal air movement Capillary refill: <2 Seconds Gastrointestinal: Normal bowel sounds, No ascites, No tenderness, No masses Integumentary: No rashes, No breakdown, No significant lesion Conclusions/Impression: Antibiotics: Bactrim: 02/03current Rocephin: Assessment/plan Urinary tract infection Urine culture obtained on 02/01 grew ESBL producing E. coli sensitive to Bactrim. Recommend continuing this for total of 10 days. Secondary to patient's history of polysubstance abuse, recommend pulling all lines prior to discharge. Alcoholic cirrhosis Continue electrolyte supplementation Leukopenia Continue to monitor Plan of care discussed with Dr. Garner Thank you for consultation
[2022-02-03 11:57] VITALS: BP 110/66; TEMP 97.5
--- OUTSIDE RECORDS SUMMARY | 2022-02-03 13:39 | XMS REPORT | Continuity of Care Document ---
:1985 Author Organization [facility] t Address [address] [place] [address] Care Team Providers Name Role Phone Pcp, Does Not Have A Primary Care Physician Christopher Hernandez Attending Clinician Unavailable VASQUEZ Attending Clinician Unavailable Vasquez STAPLES Attending Clinician Doctor Unassigned, Name Attending Clinician Unavailable Bhanu TOWNSEND Attending Clinician Unavailable Sameera Shin Attending Clinician Unavailable Physician, Primary or Family Attending Clinician Unavailkobe Fitzpatrick Attending Clinician Unavailable Gary STAPLES Attending Clinician MANA ESPARZA Attending Clinician Unavailable Tonny ECHEVARRIA Attending Clinician SCOTT Attending Clinician Unavailable Jessica RUBY F Attending Clinician Scott STAPLES Attending Clinician Everardo STAPLES Attending Clinician Yuri Hernandez MD Attending Clinician Yuri HOPKINS Attending Clinician Unavailable Evaristo PITT G Attending Clinician Sameera Eisenberg DO Attending Clinician Sameera EISENBERG Attending Clinician Unavailable James MARIE S Attending Clinician Benigno RAMIREZ Attending Clinician Unavailable Trevon RUBY Attending Clinician Singer BURKS Attending Clinician Attending Clinician Unavailable BAYLEE COTTON Attending Clinician Unavailable Zeus RUBY Attending Clinician Andrés Sherwood MD Attending Clinician Andrés SHERWOOD Attending Clinician Unavailable Luis LOPEZ Attending Clinician Unavailable Bhanu CHUN Attending Clinician Unavailable VASQUEZ Admitting Clinician Unavailable Sameera Shin Admitting Clinician Unavailable Physician, Primary or Family Admitting Clinician Unavailkobe CARDENAS Admitting Clinician Unavailable EVERARDO Admitting Clinician Unavailable Evreardo STAPLES Admitting Clinician Yuri Hernandez MD Admitting Clinician BAYLEE COTTON Admitting Clinician Unavailable Luis LOPEZ Admitting Clinician Unavailable Payers Payer Name Policy Type Policy Number Effective Date Expiration Date S nathen [facility] COMMUNITY PLAN [id number] 2020 STAR 00:00:00 [facility] STAR [id number] 2021 00:00:00 [facility] COMMUNITY PLAN [id number] 2020 STAR 00:00:00 Problems Condition Condition Condition Status Onset Resolution Last Treating Co mments Source Name Details Category Date Date Treatment Clinician Date Alcohol Alcohol Disease Active Overview: Univ ers induced induced 4-17 Formattin ity o f fatty fatty 00:00: g of this [place] liver liver 00 note Medical might be Branch different from the original. 10/29/21: LIVER: The liver measures 20.2 cm in length. The liver appears diffusely echogenic and echodense with coarsened echogenic ity related to severehep atic steatosis . No focal hepatic lesion. Main portal vein measures 1.6cm with diminishe d flow velocity measuring 12.0 cm/s. Otherwise no evidenceo f portal vein thrombosi s. Acute Acute Disease Active Univers pseudo-obs pseudo-obs 4-17 it y of truction truction 00:00: [place] of colon of colon 00 Medica l Branch Alcohol Alcohol Disease Active Univers abuse abuse 4-17 ity of 00:00: [place] [facility] Branch Elevated Elevated Disease Active Unive rs liver liver 4-17 ity of function function 00:00: [place] tests tests 00 [facility] Branch Hyponatrem Hyponatrem Disease Active 2021- U nivers ia ia 4-17 ity of 00:00: [place] [facility] Dietary Dietary Disease Active Univers folate folate 4-17 [place] of deficiency deficiency [place] anemia anemia 00 [facility] Microcytic Microcytic Disease Active 2021- U nivers hypochromi hypochromi 4-17 it y of c anemia c anemia 00:00: [place] [facility] Elevated Elevated Disease Active Unive rs INR INR 4-17 ity of 00:00: [place] [facility] Thrombocyt Thrombocyt Disease Active U nivers openia openia 4-17 [place] of concurrent concurrent 00:[place] with and with and 00 Medica l due to due to Branch alcoholism alcoholism Polysubsta Polysubsta Disease Active U nivers nce abuse nce abuse 4-17 ity of 00:00: [place] [facility] Generalize Generalize Disease Active 2021-0 U nivers d d 4-16 ity of continuous continuous 00:00[place] abdominal abdominal 00 Medi george pain pain Branch Abdominal Abdominal Disease Active Uni vers distension distension 4-15 it y of 00:00: [place] [facility] ABD PAIN Diagnosis Active 2020-09-13 M emoria 2-28 13:06:00 l ABD PAIN 00:00: Rehan n 00 Active 09/13/2020 [facility] [place] CIRRHOSIS Diagnosis Active 2020-09-14 Memoria 2-28 15:28:00 l 00:00: [place] CIRRHOSIS 00 Active 09/13/2020 [facility] [place] FOOT PAIN Diagnosis Active 2020-01-27 Memoria 7 17:42:00 l FOOT 00:00: [place] PAIN 00 Active 01/27/2020 [facility] No known No known Disease Unive rs active active ity of problems problems [facility] UNSPECIFIE Diagnosis Active 2020-09-14 Memoria D 15:28:00 l CIRRHOSIS [place] OF LIVER UNSPECIFIE D CIRRHOSIS OF LIVER Active [facility] [place] History of Past Illness Condition Condition Condition Status Onset Resolution Last Treating Co mments Source Name Details Category Date Date Treatment Clinician Date Contusion Problem 2020-01-29 2020-01-29 Mem[place] of left 01-26 22:22:21 22:22:21 l foot, 17:00: [place] initial Contusion 00 encounter of left foot, initial encounter 01/27/2020 01/29/2020 [facility] Allergies, Adverse Reactions, Alerts Allergy Allergy Status Severity Reaction(s) Onset Inactive Treating Comm ents Source Name Type Date Date Clinician Unable DA Active U [facility] to 01-21 Assess 00:00: 00 propoxyp DA Active U Unknown [facility] hene 01-21 00:00: 00 acetamin DA Active U Unknown [facility] ophen 01-21 00:00: 00 No Known DA Active U [facility] Allergie 12-29 Clear s 00:00: Joshi 00 [facility] Propoxyp Propensi Active Hives Univer s hene ty to 8-06 ity of N-Acetam adverse 00:00: [place] inophen reaction 00 Medical s Branch PROPOXYP DRUG Active Hives Univers HENE 8-06 ity of N-ACETAM 00:00: [place] INOPHEN 00 Medical Branch Darvocet Darvocet Active Memori a -N 100 -N 100 l [place] Social History Social Habit Start Date Stop Date Quantity Comments Source Exposure to 2022-01-11 2022-01-21 Unable to assess Univers ity of SARS-CoV-2 00:00:00 12:00:00 [facility] (event) Branch Tobacco use and 2021-10-31 2021-10-31 Never used Universit y of exposure 00:00:00 00:00:00 [facility] Social History 2020-09-14 2020-09-14 Marisa grace 03:06:05 03:06:05 Sex Ass[birth year] At [birth year] [facility] 00:00:00 00:00:00 Smoking Status Start Date Stop Date Source Tobacco smoking consumption [facility] ealt unknown Current every day smoker 2021-10-31 00:00:00 [facility] [place] [facility] Medications Ordered Filled Start Stop Current Ordering Indication Dosage Frequency Signature Comments Components Source Medication Medication Date Date Medication? Clinician (SIG) Name Name iopamidol 2021- No [id number] 50mL 50 mL, Univers (ISOVUE 01-21 Intravenou ity o f 370-500 mL) 19:16: 19:30 s, ONCE, 1 [place] injection 00 :00 dose, On Medica l 50 mL Mon01/21/22 Branch at 1430, Routine cefTRIAXone 2021- No 1000mg 1,000 mg, Univers (ROCEPHIN) 01-21 IV ity of 1,000 mg in 19:15: 20:20 Piggyback, [place] NaCl 0.9% 00 :00 ONCE, 1 Medical (NS) 50 mL dose, On Branc h MINI-BAG Mon01/21/22 at 1415, Administer over 30 Minutes, 50 mL
R akil for Anti-Infec tive: Documented Infection< br>Documen afshin Infection Site: Urine<br&g t;Duration of Therapy: Other (see Comments) ondansetron 2021- No 4mg 4 mg, Slow Univers (ZOFRAN 01-21 IV Push, ity of (PF)) 18:30: 17:52 ONCE, 1 [place] injection 4 00 :00 dose, On Medi george mg Mon01/21/22 Branch at 1330, [place] cefdinir 2021- Yes [id number] 300mg Take 1 Un frida 300 mg 7-08 capsule by ity of capsule 00:00: mouth 2 [place] 00 (two) Medical times Branch daily. ondansetron 2021-0 Yes [id number] 4mg Take 1 Univers 4 mg 7-08 tablet by ity of disintegrat 00:00: mouth [place] ing tablet 00 every 4 Medica l (four) Branch hours as needed for Nausea and Vomiting (N/V). foLIC acid 2021-0 Yes [id number] 1mg Take 1 Univers 1 mg tablet 4-21 tablet by ity of 00:00: mouth [place] 00 daily. Medical Branch thiamine 2021-0 Yes [id number] 100mg Take 1 U nivers 100 mg 4-21 tablet by ity of tablet 00:00: mouth [place] 00 daily. Medical Branch foLIC acid 2021-0 Yes [id number] 1mg Take 1 Univers 1 mg tablet 4-21 tablet by ity of 00:00: mouth [place] 00 daily. Medical Branch thiamine 2021-0 Yes [id number] 100mg Take 1 U nivers 100 mg 4-21 tablet by ity of tablet 00:00: mouth [place] 00 daily. Medical Branch foLIC acid 2021-0 Yes [id number] 1mg Take 1 Univers 1 mg tablet 4-21 tablet by ity of 00:00: mouth [place] 00 daily. Medical Branch thiamine 2021-0 Yes [id number] 100mg Take 1 U nivers 100 mg 4-21 tablet by ity of tablet 00:00: mouth [place] 00 daily. Medical Branch foLIC acid 2021-0 Yes [id number] 1mg Take 1 Univers 1 mg tablet 4-21 tablet by ity of 00:00: mouth [place] 00 daily. Medical Branch thiamine 2021-0 Yes [id number] 100mg Take 1 U nivers 100 mg 4-21 tablet by ity of tablet 00:00: mouth [place] 00 daily. Medical Branch enoxaparin Yes 40mg 40 mg, Unive rs (LOVENOX) 4-20 Subcutaneo ity of injection 22:00: us, DAILY [place] 40 mg 00 AT 1700, Medical First dose Branch on Mon11/03/21 at 1700, Until Discontinu ed, Routine nicotine 0 Yes 1{patch 1 Patch, Un frida (NICODERM) 4-20 } Topical, ity o f 21 mg/24 hr 13:30: Administer [place] patch 1 00 over 24 Medical Patch Hours, Branch Q24H, First dose on Mon11/03/21 at 0830, Until Discontinu ed, Routine phosphorus 2021-0 2021- No 250mg 1 tablet U nivers (K PHOS 11-03 04-20 (250 mg), ity of NEUTRAL) 13:00: 12:58 Oral, [place] tablet 1 00 :00 ONCE, 1 Medical tablet dose, On Branch Mon11/03/21 at 0800, Routine magnesium 2021-0 2021- No 2g 2 g, IV Univ ers sulfate in 11-03 04-20 Piggyback, it y of water 2 13:00: 13:59 Administer [place] gram/50 mL 00 :00 over 60 Medica l (4 %) Minutes, Branch infusion 2 ONCE, 1 g dose, On Mon11/03/21 at 0800, Routine KCL No 40meq 40 mEq, Univers (KLOR-CON 11-03 Oral, ity of M20) tablet 13:00: 12:58 ONCE, 1 [place] 40 mEq 00 :00 dose, On Medical Wed Branch 11/03/21 at 0800, Routine nicotine 2021- No 1{patch 1 Patch, U nivers (NICODERM) 11-03 } Topical, ity of 14 mg/24 hr 02:15: 12:17 Administer [place] patch 1 00 :52 over 24 Medical Patch Hours, Branch ONCE, 1 dose, On Mon11/02/21 at 2115, Routine varenicline Yes [id number] Take one Univers (CHANTIX 4-20 0.5mg tab ity of STARTING 00:00: by mouth [facility] BOX) 00 once daily Med ical 0.5 mg for 3 Branch (11)- 1 mg days, then (42) tablet one 0.5mg tab twice daily for 4 days, then one 1mg tab twice daily. varenicline Yes [id number] 1mg Take 1 Univers (CHANTIX 4-20 tablet by ity of CONTINUING 00:00: mouth 2 [place] [facility] BOX) 00 (two) Medical 1 mg tablet times Branch daily. varenicline Yes [id number] Take one Univers (CHANTIX 4-20 0.5mg tab ity of STARTING 00:00: by mouth [facility] BOX) 00 once daily Med ical 0.5 mg for 3 Branch (11)- 1 mg days, then (42) tablet one 0.5mg tab twice daily for 4 days, then one 1mg tab twice daily. varenicline Yes [id number] 1mg Take 1 Univers (CHANTIX 4-20 tablet by ity of CONTINUING 00:00: mouth 2 [place] MONTH BOX) 00 (two) Medical 1 mg tablet times Branch daily. varenicline Yes [id number] Take one Univers (CHANTIX 4-20 0.5mg tab ity of STARTING 00:00: by mouth [facility] BOX) 00 once daily Med ical 0.5 mg for 3 Branch (11)- 1 mg days, then (42) tablet one 0.5mg tab twice daily for 4 days, then one 1mg tab twice daily. varenicline Yes [id number] 1mg Take 1 Univers (CHANTIX 4-20 tablet by ity of CONTINUING 00:00: mouth 2 [place] [facility] BOX) 00 (two) Medical 1 mg tablet times Branch daily. varenicline Yes [id number] Take one Univers (CHANTIX 4-20 0.5mg tab ity of STARTING 00:00: by mouth [facility]) 00 once daily Med ical 0.5 mg for 3 Branch (11)- 1 mg days, then (42) tablet one 0.5mg tab twice daily for 4 days, then one 1mg tab twice daily. varenicline Yes [id number] 1mg Take 1 Univers (CHANTIX 4-20 tablet by ity of CONTINUING 00:00: mouth 2 [place] BOX) 00 (two) Medical 1 mg tablet times Branch daily. phosphorus 2021- No 250mg 1 tablet U nivers (K PHOS 11-03-19 (250 mg), ity of NEUTRAL) 00:00: 23:30 Oral, [place] tablet 1 00 :00 ONCE, 1 Medical tablet dose, On Branch Mon11/02/21 at 1900, Routine lactated 2021- No 1000mL at 100 [facility] ers ringers IV 11-02 04-20 mL/hr, ity of infusion 13:15: 13:58 1,000 mL, [place] 1,000 mL 00 :05 Intravenou Medic al s, Branch CONTINUOUS , Starting on Mon11/02/21 at 0815, Until Mon11/03/21 at 0858, Routine Sliding Yes Subcutaneo [facility] ers Scale - us, TID ity of Insulin - 13:00: MEALS+HS, [place] Lispro 00 First dose Medical (HumaLOG) + on Mon Branch Fsbg 11/02/21 at Testing 0800, Until Discontinu ed, Routine glucagon Yes 1mg 1 mg, Univers (GLUCAGEN 11-02 Intramuscu ity of DIAGNOSTIC 12:10: lar, PRN, [place] KIT) 25 Starting Medical injection 1 on Mon Branch mg 11/02/21 at 0710, Until Discontinu ed, AUST[place], Blood Glucose < or = 70 mg/dL and patient is unable to swallow or has mental changes. dextrose 0 Yes 250mL 250 mL, IV Un frida 10% (D10W) 11-02 Infusion, ity of bolus 12:10: PRN - SEE [place] infusion 25 INSTRUCTIO Medic al 250 mL NS, Branch glucose < 70, Starting on 11/02/21 at 0710
De xtrose 10% 250 mL bag contains:& nbsp;10 gm = 100 mL 20 gm = 200 mL 25 gm = 250 mL (whole bag) The maximum rate at which dextrose can be infused without producing glycosuria is 0.5 g/kg/hour. &nbs p;BUD: If wrapper is open bag is good for 30 days at room temperatur e. <b r> NaCl 0.9% 2021- No 1000mL at 150 Uni vers (NS) IV 11-01 04-18 mL/hr, IV ity of infusion 14:45: 13:43 Infusion, [place] 1,000 mL 00 :00 ONCE, 1 Medical dose, On Branch 11/01/21 at 0945, Routine NaCl 0.9% 2021- No 1000mL at 150 Uni vers (NS) IV 10-31 04-18 mL/hr, IV ity of infusion 23:15: 02:47 Infusion, [place] 1,000 mL 00 :00 ONCE, 1 Medical dose, On Branch 10/31/21 at 1815, Routine acetaminoph 2021-0 Yes 650mg 650 mg, Un frida en 10-31 Oral, ity of (TYLENOL) 22:23: Q6HPRN, [place] tablet 650 34 Starting Medic al mg on Sun Branch 10/31/21 at 1723, Until Discontinu ed, Routine, Pain (scale 1-3), Pain (scale 4-6) NaCl 0.9% 2021- No 1000mL at 150 Uni vers (NS) IV 10-31-17 mL/hr, IV ity of infusion 20:30: 19:35 Infusion, [place] 1,000 mL 00 :00 ONCE, 1 Medical dose, On Branch [place] 10/31/21 at 1530, Routine thiamine 2021-0 Yes 100mg 100 mg, Unive rs (VITAMIN 4-17 Oral, ity of B1) tablet 14:00: DAILY, [place] 100 mg 00 First dose Medical on [facility] 10/31/21 at 0900, Until Discontinu ed, Routine polyethylen 2021-0 Yes 17g 17 g, Unive rs e glycol -17 Oral, BID, ity o f 3350 powder 13:00: First dose [place] 17 g 00 on [facility] 10/31/21 at Branch 0800, Until Discontinu ed, Routine phytonadion 0 202- No 5mg 5 mg, Univ ers e (vitamin -31 10-17 Oral, ity of K1) 04:45: 06:26 ONCE, 1 [place] (MEPHYTON) 00 :00 dose, On Medic al tablet 5 mg [facility] 10/30/21 at 2345, Routine oxazepam 0 Yes 15mg 15 mg, Univers (SERAX) -17 Oral, ity of capsule 15 03:46: Q4HPRN, [place] mg 25 Starting Medical on [facility] 10/30/21 at 2246, Until Discontinu ed, Routine, Only while awake for DBP equal to or greater than 100, HR equal to or greater than 100. sennosides- 0 Yes 1{tbl} 1 tablet, Univers docusate -17 Oral, BID, ity o f sodium 03:45: First dose [place] (SENOKOT-S) 00 on [facility] Medica l 8.6-50 mg 10/30/21 at Bran ch per tablet 2245, 1 tablet Until Discontinu ed, Routine multivitami 2021-0 Yes 1{tbl} 1 tablet, Univers n tablet 1 10-31 Oral, ity of tablet 03:45: DAILY, [place] 00 First dose Medical on [facility] 10/30/21 at 2245, Until Discontinu ed, Routine foLIC acid 2021-0 Yes 1mg 1 mg, Univer s (FOLATE) -17 Oral, ity of tablet 1 mg 03:45: DAILY, [place] 00 First dose Medical on [facility] Branch 10/30/21 at 2245, Until Discontinu ed, Routine ondansetron Yes 4mg 4 mg, Slow Univers (ZOFRAN 17 IV Push, ity of (PF)) 03:40: Q6HPRN, [place] injection 4 01 Starting Medi george mg on Sat Branch 10/30/21 at 2240, Until Discontinu ed, Routine, Nausea and Vomiting (N/V) potassium 2021- No 20meq 20 mEq, IV Univers chloride 20 10-30 Piggyback, i ty of mEq/100 mL 13:00: 18:12 Q2H, 2 [place] (KCL) 20 00 :00 doses, Medical mEq/100 mL First dose Bra nch RTU IVPB 20 on [facility] mEq 10/30/21 at 0800, Last dose on 10/30/21 at 1000, 100 mL glycerin/mi No 225mL 225 mL, U nivers neral oil 10-30 Rectal, ity of (AGLO 11:15: 11:30 ONCE, 1 [place] ENEMA) 00 :00 dose, On Medical (COMPOUNDED [facility] ) Enem 225 10/30/21 at mL 0615, Routine oxazepam 2021- No 15mg [Order 1 Univ ers (SERAX) 10-30 Start] ity of capsule 15 10:15: 10:14 Name: [place] mg 00 :00 oxazepam Medical (SERAX) Branch capsule 15 mg Signed Summary: 15 mg, Oral, Q6H TAPER, 4 doses, First dose on 10/30/21 at 0515, Last dose on 10/30/21 at 2315, Routine [Order 1 End] [Order 2 Start] Name: oxazepam (SERAX) capsule 15 mg Signed Summary: 15 mg, Oral, Q8H TAPER, 3 doses, First dose on 10/31/21 at 0715, Last dose on 10/31/21 at 2315, Routine [Order 2 End] [Order 3 Start] Name: oxazepam (SERAX) capsule 15 mg Signed Summary: 15 mg, Oral, Q12H TAPER, 2 doses, First dose on Mon11/01/21 at 1115, Last dose on Mon11/01/21 at 2315, Routine [Order 3 End] oxazepam Yes 15mg 15 mg, Univers (SERAX) 416 Oral, ity of capsule 15 10:06: Q4HPRN, [place] mg 54 Starting Medical on Mon Branch 10/30/21 at 0506, Until Discontinu ed, Routine, Only while awake for DBP equal to or greater than 100, HR equal to or greater than 100. sodium 2021- No 30mmol 30 mmol, Univ ers phosphate 10-3016 IV ity of 30 mmol in 04:44: 09:52 Piggyback, [place] NaCl 0.9% 00 :00 ONCE, 1 Medical (NS) 250 mL dose, On Bran piggyback Mon10/29/21 at 2345, Administer over 4 Hours, 250 mL lactulose Yes 15mL 15 mL, Univer s (CEPHULAC) 16 Oral, TID, ity of solution 15 04:00: First dose [place] mL 00 (after Medical last Branch modificati on) on Mon10/29/21 at 2300, Until Discontinu ed, Routine enoxaparin Yes 40mg 40 mg, Unive rs (LOVENOX) 10-29 Subcutaneo ity of injection 22:00: [place], DAILY, [place] 40 mg 00 First dose Medical on Mon Branch 10/29/21 at 1700, Until Discontinu ed, Routine ketorolac No 30mg 30 mg, Unive rs (TORADOL) 10-29 Intramuscu ity of injection 18:51: 19:58 lar, ONCE, [place] 30 mg 00 :00 1 dose, On Medical Mon10/29/21 at 1400, [place] glycerin/mi 2021- No 225mL 225 mL, U nivers neral oil 10-29 Rectal, ity of (AGLO 18:13: 21:31 ONCE, 1 [place] ENEMA) 00 :00 dose, On Medical (COMPOUNDED Mon Branch ) Enem 225 10/29/21 at mL 1315, Routine bisacodyL No 10mg 10 mg, Unive rs (DULCOLAX) 10-29 Rectal, ity o f suppository 15:09: 15:46 ONCE, 1 [place] 10 mg 00 :00 dose, On Medical Fri Branch 10/29/21 at 1015, Routine foLIC acid Yes 1mg IV Univers (FOLATE) 1 10-29 Piggyback, ity of mg in NaCl 14:00: DAILY, [place] 0.9% (NS) 00 First dose Medi george piggyback on Mon Branch 10/29/21 at 0900, Until Discontinu ed, 50 mL thiamine No 100mg IV Univers (VITAMIN 10-29 Piggyback, ity of B1) 100 mg 14:00: 00:00 DAILY, 1 [place] in NaCl 00 :00 dose, Medical 0.9% (NS) First dose Bran ch piggyback on Mon10/29/21 at 0900, 50 mL potassium No 20meq 20 mEq, IV Univers chloride 20 10-29 Piggyback, i ty of mEq/100 mL 13:42: 15:46 ONCE, 1 [place] (KCL) 20 00 :00 dose, On Medical mEq/100 mL [facility] Branch RTU IVPB 10/29/21 at mEq 0845, 100 mL nicotine Yes 1{patch 1 Patch, Un frida (NICODERM) 10-29 } Topical, ity o f 21 mg/24 hr 10:15: Administer [place] patch 1 00 over 24 Medical Patch Hours, Branch Q24H, First dose on Mon10/29/21 at 0515, Until Discontinu ed, Routine hydrOXYzine No 10mg 10 mg, Uni vers (ATARAX) 10-29 Oral, ity of tablet 10 10:15: 09:30 ONCE, 1 [place] mg 00 :00 dose, On Medical Fri Branch 10/29/21 at 0515, Routine potassium No 20meq 20 mEq, IV Univers chloride 20 10-2915 Piggyback, i ty of mEq/100 mL 09:00: 12:59 Q2H, 2 [place] (KCL) 20 00 :00 doses, Medical mEq/100 mL First dose Bra [facility] RTU IVPB 20 on Mon mEq 10/29/21 at 0400, Last dose on 10/29/21 at 0600, 100 mL ketorolac No 10mg 10 mg, Unive rs (TORADOL) 10-29-15 Oral, ity of tablet 10 08:45: 08:56 ONCE, 1 [place] mg 00 :00 dose, On Medical Fri Branch 10/29/21 at 0345, Routine NaCl 0.9% Yes 1000mL at 150 Univ ers (NS) IV 4-15 mL/hr, IV ity of infusion 08:30: Infusion, [place] 1,000 mL 00 CONTINUOUS Medic al , Starting Branch on Mon10/29/21 at 0330, Until Discontinu ed, Routine magnesium No 4g 4 g, IV [facility] ers sulfate in 10-29 04-16 Piggyback, it y of water 4 08:00: 00:00 ONCE, 1 [place] gram/50 mL 00 :00 dose, On Medic al (8 %) IV Fri Branch Piggyback 4 10/29/21 at g 0300, Routine lactated 2021- No 1000mL at 150 Univ ers ringers IV 10-29 04-15 mL/hr, ity of infusion 07:15: 07:04 1,000 mL, [place] 1,000 mL 00 :50 IV Medical Infusion, Branch CONTINUOUS , Starting on Mon10/29/21 at 0215, Until Mon10/29/21 at 0204, Routine naproxen 2020- No 500mg 500 mg, [facility] ers (NAPROSYN) 03-18 Oral, ity of tablet 500 08:30: 07:45 ONCE, 1 [place] mg 00 :00 dose, [facility] Medical 03/18/21 at Branch 0330, Routine naproxen 2020- No 500mg 500 mg, Univ ers (NAPROSYN) 03-18 Oral, ity of tablet 500 08:30: 07:45 ONCE, 1 [place] mg 00 :00 dose, [facility] Medical 03/18/21 at Branch 0330, Routine ketorolac 2020- No 15mg 15 mg, Unive rs (TORADOL) 03-13 Slow IV ity of injection 21:32: 21:44 Push, [place] 15 mg 00 :00 ONCE, 1 Medical dose, Sat Branch 03/13/21 at 1645, AUSTEN
Fa culty member approving Restricted medication : SANDY DREW ketorolac No 15mg 15 mg, Unive rs (TORADOL) 03-13 Slow IV ity of injection 21:32: 21:44 Push, [place] 15 mg 00 :00 ONCE, 1 Medical dose, Sat Branch 03/13/21 at 1645, AUSTEN
Fa culty member approving Restricted medication : SANDY DREW ibuprofen Yes [id number] 600mg Take 1 U nivers 600 mg 8-28 tablet by ity of tablet 00:00: mouth [place] 00 every 6 Medical (six) Branch hours as needed for Pain (scale 4-6). ibuprofen Yes [id number] 600mg Take 1 U nivers 600 mg 8-28 tablet by ity of tablet 00:00: mouth [place] 00 every 6 Medical (six) Branch hours as needed for Pain (scale 4-6). ibuprofen Yes [id number] 600mg Take 1 U nivers 600 mg 8-28 tablet by ity of tablet 00:00: mouth [place] 00 every 6 Medical (six) Branch hours as needed for Pain (scale 4-6). ibuprofen Yes [id number] 600mg Take 1 U nivers 600 mg 8-28 tablet by ity of tablet 00:00: mouth [place] 00 every 6 Medical (six) Branch hours as needed for Pain (scale 4-6). ibuprofen 0 Yes [id number] 600mg Take 1 U nivers 600 mg 8-28 tablet by ity of tablet 00:00: mouth [place] 00 every 6 Medical (six) Branch hours as needed for Pain (scale 4-6). ibuprofen 0 Yes [id number] 600mg Take 1 U nivers 600 mg 8-28 tablet by ity of tablet 00:00: mouth [place] 00 every 6 Medical (six) Branch hours as needed for Pain (scale 4-6). ibuprofen Yes [id number] 600mg Take 1 U nivers 600 mg 8-28 tablet by ity of tablet 00:00: mouth [place] 00 every 6 Medical (six) Branch hours as needed for Pain (scale 4-6). ibuprofen 2021- No [id number] 600mg Take 1 Univers 600 mg 8-28 04-15 tablet by ity of tablet 00:00: 00:00 mouth [place] 00 :00 every 6 Medical (six) Branch hours as needed for Pain (scale 4-6). iopamidol 2020- No [id number] 100mL 100 mL, Univers (ISOVUE 11-20 05-07 Intravenou ity o f 370-500 mL) 09:48: 10:00 s, ONCE, 1 [place] injection 00 :00 dose, Fri Medic al 100 mL 11/20/20 at Branch 0500, Routine iopamidol 2020- No [id number] 100mL 100 mL, Univers (ISOVUE 5- 05-07 Intravenou ity o f 370-500 mL) 09:48: 10:00 s, ONCE, 1 [place] injection 00 :00 dose, Fri Medic al 100 mL 11/20/20 at Branch 0500, Routine ferrous Yes [id number] 325mg Take 1 Un [place] sulfate 5-07 tablet by ity of (IRON) 325 00:00: mouth 3 [place] mg (65 mg 00 (three) Medical iron) times Branch tablet daily with meals. ferrous Yes [id number] 325mg Take 1 Un [place] sulfate 5-07 tablet by ity of (IRON) 325 00:00: mouth [place] mg (65 mg 00 (three) Medical iron) times Branch tablet daily with meals. ferrous Yes [id number] 325mg Take 1 Un [place] sulfate 5-07 tablet by ity of (IRON) 325 00:00: mouth [place] mg (65 mg 00 (three) Medical iron) times Branch tablet daily with meals. ferrous 0 Yes [id number] 325mg Take 1 Un [place] sulfate 5-07 tablet by ity of (IRON) 325 00:00: mouth [place] mg (65 mg 00 (three) Medical iron) times Branch tablet daily with meals. ferrous Yes [id number] 325mg Take 1 Un [place] sulfate 5-07 tablet by ity of (IRON) 325 00:00: mouth [place] mg (65 mg 00 (three) Medical iron) times Branch tablet daily with meals. ferrous Yes [id number] 325mg Take 1 Un [place] sulfate 5-07 tablet by ity of (IRON) 325 00:00: mouth [place] mg (65 mg 00 (three) Medical iron) times Branch tablet daily with meals. ferrous Yes [id number] 325mg Take 1 Un [place] sulfate 5-07 tablet by ity of (IRON) 325 00:00: mouth [place] mg (65 mg 00 (three) Medical iron) times Branch tablet daily with meals. ferrous Yes [id number] 325mg Take 1 Un [place] sulfate 5-07 tablet by ity of (IRON) 325 00:00: mouth [place] mg (65 mg 00 (three) Medical iron) times Branch tablet daily with meals. ferrous Yes [id number] 325mg Take 1 Un [place] sulfate 5-07 tablet by ity of (IRON) 325 00:00: mouth [place] mg (65 mg 00 (three) Medical iron) times Branch tablet daily with meals. ferrous Yes [id number] 325mg Take 1 Un [place] sulfate 5-07 tablet by ity of (IRON) 325 00:00: mouth [place] mg (65 mg 00 (three) Medical iron) times Branch tablet daily with meals. ferrous Yes Acute on 325mg Take 1 Uni vers sulfate 5-07 chronic tablet by ity of (IRON) 325 00:00: anemia [place] 3 [place] mg (65 mg 00 (three) Medical iron) times Branch tablet daily with meals. ferrous 202- No [id number] 325mg Take 1 U nivers sulfate 5-07 04-20 tablet by ity of (IRON) 325 00:00: 00:00 mouth 3 [place] mg (65 mg 00 :00 (three) Medical iron) times Branch tablet daily with meals. Chlordiazep No 50 mg, 2 Me moria oxide 3-03 cap, l 22:00: Route: PO, [place] 00 Drug form: CAP, Q24H, Dosing Weight 50, kg, Start date: 09/16/20 16:00:00 GPS NAVIGATION INSTALLER, Duration: 24 hr, Stop date: 09/16/20 16:00:00 GPS NAVIGATION INSTALLER, 0 Chlordiazep 2021-0 No 50 mg, 2 Me moria oxide 3-03 cap, l 22:00: Route: PO, Drug form: CAP, Q24H, Dosing Weight 50, kg, Start date: 09/16/20 16:00:00 GPS NAVIGATION INSTALLER, Duration: 24 hr, Stop date: 09/16/20 16:00:00 GPS NAVIGATION INSTALLER, 0 Chlordiazep 2021-0 No 50 mg, 2 Me moria oxide 3-03 cap, l 22:00: Route: PO, Drug form: CAP, Q24H, Dosing Weight 50, kg, Start date: 09/16/20 16:00:00 GPS NAVIGATION INSTALLER, Duration: 24 hr, Stop date: 09/16/20 16:00:00 GPS NAVIGATION INSTALLER, 0 Chlordiazep 2021-0 No 50 mg, 2 Me moria oxide 3-03 cap, l 03:00: Route: PO, Drug form: CAP, Q12H, Dosing Weight 50, kg, Start date: 09/15/20 21:00:00 GPS NAVIGATION INSTALLER, Duration: 24 hr, Stop date: 09/16/20 9:00:00 GPS NAVIGATION INSTALLER, 0 Chlordiazep 2021-0 No 50 mg, 2 Me moria oxide 3-03 cap, l 03:00: Route: PO, Drug form: CAP, Q12H, Dosing Weight 50, kg, Start date: 09/15/20 21:00:00 GPS NAVIGATION INSTALLER, Duration: 24 hr, Stop date: 09/16/20 9:00:00 GPS NAVIGATION INSTALLER, 0 Chlordiazep 2021-0 No 50 mg, 2 Me moria oxide 3-03 cap, l 03:00: Route: PO, Drug form: CAP, Q12H, Dosing Weight 50, kg, Start date: 09/15/20 21:00:00 GPS NAVIGATION INSTALLER, Duration: 24 hr, Stop date: 09/16/20 9:00:00 GPS NAVIGATION INSTALLER, 0 remove 2020-0 No Notes: [facility] patch 3-02 Remove old l 15:00: patch before applicatio n of new patch. WASTE: F/P - P Waste Black; E - P Waste Black remove 2020-0 No Notes: [facility] patch 3-02 Remove old l 15:00: patch before applicatio n of new patch. WASTE: F/P - P Waste Black; E - P Waste Black remove No Notes: [facility] patch 3- Remove old l 15:00: patch [place] 00 before applicatio n of new patch. WASTE: F/P - P Waste Black; E - P Waste Black Chlordiazep No 50 mg, 2 Me moria oxide 3-01 cap, l 22:00: Route: PO, [place] 00 Drug form: CAP, Q8H, Dosing Weight 50, kg, Start date: 09/14/20 16:00:00 GPS NAVIGATION INSTALLER, Duration: 24 hr, Stop date: 09/15/20 8:00:00 GPS NAVIGATION INSTALLER, 0 Chlordiazep No 50 mg, 2 Me moria oxide 3- cap, l 22:00: Route: PO, [place] 00 Drug form: CAP, Q8H, Dosing Weight 50, kg, Start date: 09/14/20 16:00:00 GPS NAVIGATION INSTALLER, Duration: 24 hr, Stop date: 09/15/20 8:00:00 GPS NAVIGATION INSTALLER, 0 Chlordiazep No 50 mg, 2 Me moria oxide 3- cap, l 22:00: Route: PO, Drug form: CAP, Q8H, Dosing Weight 50, kg, Start date: 09/14/20 16:00:00 GPS NAVIGATION INSTALLER, Duration: 24 hr, Stop date: 09/15/20 8:00:00 GPS NAVIGATION INSTALLER, 0 Folic Acid No Notes: Memor ia - (Same as: l 15:00: Folvite) multivitami No 1 tab, Theo makayla n 09-14 Route: PO, l 15:00: Dosing Weight 50, kg, Daily, Start date: 09/14/20 9:00:00 GPS NAVIGATION INSTALLER, Duration: 5 day, Stop date: 09/18/20 9:00:00 GPS NAVIGATION INSTALLER Thiamine No Notes: Memoria 3- (Same As: l 15:00: Vitamin B1) multivitami No Notes: Theo makayla n with 3 (Same l minerals 15:00: as:Thera-M Her berkowitz 00 , Theragran- M) WASTE: F/P - Black; E - Municipal Trash Bin Give with food. Folic Acid No Notes: Memor ia 3-01 (Same as: l 15:00: Folvite) [place] 00 multivitami No 1 tab, Theo makayla n 3- Route: PO, l 15:00: Dosing [place] 00 Weight 50, kg, Daily, Start date: 09/14/20 9:00:00 GPS NAVIGATION INSTALLER, Duration: 5 day, Stop date: 09/18/20 9:00:00 GPS NAVIGATION INSTALLER Thiamine No Notes: Memoria 3-01 (Same As: l 15:00: Vitamin [place] 00 B1) multivitami No Notes: Theo makayla n with 3- (Same l minerals 15:00: as:Speedy berkowitz 00 , Theragran- M) WASTE: F/P - Black; E - Municipal Trash Bin Give with food. Folic Acid No Notes: Memor ia 3-01 (Same as: l 15:00: Folvite) [place] 00 multivitami No 1 tab, Theo makayla n 3- Route: PO, l 15:00: Dosing [place] Weight 50, kg, Daily, Start date: 09/14/20 9:00:00 GPS NAVIGATION INSTALLER, Duration: 5 day, Stop date: 09/18/20 9:00:00 GPS NAVIGATION INSTALLER Thiamine No Notes: Memoria 3- (Same As: [...] Solution influenza No Notes: Memori a virus 3- (Same as: l vaccine, 02:50: Fluzone Rehan n inactivated 16 Quadrivale nt, Fluarix Quadrivale nt) For patients 6 - 35 months of age (0.5 mL IM) For 3 years of age and older (0.5 mL IM) Shake well before use influenza No Notes: Memori a virus 3- (Same as: l vaccine, 02:50: Fluzone Rehan n inactivated 16 Quadrivale nt, Fluarix Quadrivale nt) For patients 6 - 35 months of age (0.5 mL IM) For 3 years of age and older (0.5 mL IM) Shake well before use influenza No Notes: Memori a virus - (Same as: l vaccine, 02:50: Fluzone Rehan n inactivated 16 Quadrivale nt, Fluarix Quadrivale nt) For patients 6 - 35 months of age (0.5 mL IM) For 3 years of age and older (0.5 mL IM) Shake well before use Chlordiazep No 50 mg, 2 Me moria oxide 09-14 cap, l 00:00: Route: PO, Drug form: CAP, Q6H, Dosing Weight 50, kg, Start date: 09/13/20 18:00:00 GPS NAVIGATION INSTALLER, Duration: 24 hr, Stop date: 09/14/20 12:00:00 GPS NAVIGATION INSTALLER, 0 Chlordiazep 2020-0 No 50 mg, 2 Me moria oxide 3-01 cap, l 00:00: Route: PO, [place] 00 Drug form: CAP, Q6H, Dosing Weight 50, kg, Start date: 09/13/20 18:00:00 GPS NAVIGATION INSTALLER, Duration: 24 hr, Stop date: 09/14/20 12:00:00 GPS NAVIGATION INSTALLER, 0 Chlordiazep 2020-0 No 50 mg, 2 Me moria oxide 3-01 cap, l 00:00: Route: PO, Drug form: CAP, Q6H, Dosing Weight 50, kg, Start date: 09/13/20 18:00:00 GPS NAVIGATION INSTALLER, Duration: 24 hr, Stop date: 09/14/20 12:00:00 GPS NAVIGATION INSTALLER, 0 cefepime 2020- No Notes: Memoria 2-28 (Same As: l 22:00: Maxipime) MEDICATION WASTE Product Size: 1000 mg Product Wasted: ___ mg cefepime 2020- No Notes: Memoria 2-28 (Same As: l 22:00: Maxipime) MEDICATION WASTE Product Size: 1000 mg Product Wasted: ___ mg cefepime 2020-0 No Notes: Memoria 2-28 (Same As: l 22:00: Maxipime) MEDICATION WASTE Product Size: 1000 mg Product Wasted: ___ mg Lorazepam 2020- No Notes: Memori a 2-28 (Same as: l 21:44: Ativan) Lorazepam 2020-0 No Notes: Memori a 2-28 (Same as: l 21:44: Ativan) Lorazepam 2020-0 No Notes: Memori a 2-28 (Same as: l 21:44: Ativan) Lactated 2020- No 1,000 mL, Theo makayla Ringers IV 09-13 Rate: 125 l 1,000 mL 21:32: ml/hr, Infuse over: 8 hr, Route: IV, Dosing Weight 50 kg, Total Volume: 1,000, Start date: 09/13/20 15:32:00 GPS NAVIGATION INSTALLER, 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, Stop date: 10/13/20 15:31:00 CDT, 1.53, m2, 0 Ondansetron No Notes: Theo makayla 2-28 (Same as: l 21:32: Zofran) [place] 00 MEDICATION WASTE Product Size: 4 mg Product Wasted: ___ mg Hydromorpho No Notes: Theo makayla ne 2-28 Same as: l 21:32: Dilaudid [place] 00 Lactated No 1,000 mL, Theo makayla Ringers IV 09-13 Rate: 125 l 1,000 mL 21:32: ml/hr, [place] 00 Infuse over: 8 hr, Route: IV, Dosing Weight 50 kg, Total Volume: 1,000, Start date: 09/13/20 15:32:00 GPS NAVIGATION INSTALLER, 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, Stop date: 10/13/20 15:31:00 CDT, 1.53, m2, 0 Ondansetron No Notes: Theo makayla 2-28 (Same as: l 21:32: Zofran) [place] 00 MEDICATION WASTE Product Size: 4 mg Product Wasted: ___ mg Hydromorpho No Notes: Theo makayla ne 2-28 Same as: l 21:32: Dilaudid [place] 00 Lactated No 1,000 mL, Theo makayla Ringers IV 09-13 Rate: 125 l 1,000 mL 21:32: ml/hr, [place] 00 Infuse over: 8 hr, Route: IV, Dosing Weight 50 kg, Total Volume: 1,000, Start date: 09/13/20 15:32:00 GPS NAVIGATION INSTALLER, 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, Stop date: 10/13/20 15:31:00 CDT, 1.53, m2, 0 Ondansetron No Notes: Theo makayla 2-28 (Same as: l 21:32: Zofran) [place] 00 MEDICATION WASTE Product Size: 4 mg Product Wasted: ___ mg Hydromorpho No Notes: Theo makayla ne 2-28 Same as: l 21:32: Dilaudid [place] 00 Ceftriaxone No Notes: Theo makayla 2-28 (Same [...] 0.9% 2-28 (Same as: l 18:46: BD [place] 00 Posiflush) Sodium No 1,000 mL, Memori a Chloride 2-28 1000 l 0.9% 18:46: ml/hr, [place] (Bolus) IV 00 Infuse Over: 1 hr, Route: IV, 1,000, Drug form: INJ, ONCE, Priority: STAT, Dosing Weight 50 kg, Start date: 09/13/20 12:46:00 GPS NAVIGATION INSTALLER, Stop date: 09/13/20 12:46:00 GPS NAVIGATION INSTALLER, 0 Morphine No Notes: Memoria 2-28 (Same l 18:46: as:MORPhin [place] 00 e Sulfate) Ondansetron No Notes: Theo makayla 2-28 (Same as: l 18:46: Zofran) [place] 00 MEDICATION WASTE Product Size: 4 mg Product Wasted: ___ mg Saline No Notes: Memoria Flush 0.9% 2-28 (Same as: l 18:46: BD [place] 00 Posiflush) Sodium No 1,000 mL, Memori a Chloride 2-28 1000 l 0.9% 18:46: ml/hr, [place] (Bolus) IV 00 Infuse Over: 1 hr, Route: IV, 1,000, Drug form: INJ, ONCE, Priority: STAT, Dosing Weight 50 kg, Start date: 09/13/20 12:46:00 GPS NAVIGATION INSTALLER, Stop date: 09/13/20 12:46:00 GPS NAVIGATION INSTALLER, 0 Morphine No Notes: Memoria 2-28 (Same l 18:46: as:MORPhin [place] 00 e Sulfate) Ondansetron No Notes: Theo makayla 2-28 (Same as: l 18:46: Zofran) [place] 00 MEDICATION WASTE Product Size: 4 mg Product Wasted: ___ mg Saline No Notes: Memoria Flush 0.9% 2-28 (Same as: l 18:46: BD [place] 00 Posiflush) Sodium No 1,000 mL, Memori a Chloride 2-28 1000 l 0.9% 18:46: ml/hr, [place] (Bolus) IV 00 Infuse Over: 1 hr, Route: IV, 1,000, Drug form: INJ, ONCE, Priority: STAT, Dosing Weight 50 kg, Start date: 09/13/20 12:46:00 GPS NAVIGATION INSTALLER, Stop date: 09/13/20 12:46:00 GPS NAVIGATION INSTALLER, 0 Morphine No Notes: Memoria 2-28 (Same l 18:46: as:MORPhin [place] 00 e Sulfate) Ondansetron No Notes: Theo makayla 2-28 (Same as: l 18:46: Zofran) [place] 00 MEDICATION WASTE Product Size: 4 mg Product Wasted: ___ mg ondansetron 2019-07- No 4mg 4 mg, [facility] ers (ZOFRAN-ODT 07-22 11- Oral, ity of ) 23:22: 23:22 ONCE, 1 [place] disintegrat 00 :00 dose, Fri Med ical ing tablet 05/22/20 at [facility] 4 mg 1730, [place] ondansetron 2019-07 Yes [id number] 4mg Take 1 Univers 4 mg 1-06 tablet by ity of disintegrat 00:00: mouth [place] ing tablet 00 every 8 Medica l (eight) Branch hours as needed for Nausea and Vomiting (N/V). ondansetron 2019-07 Yes [id number] 4mg Take 1 Univers 4 mg 1-06 tablet by ity of disintegrat 00:00: mouth [place] ing tablet 00 every 8 Medica l (eight) Branch hours as needed for Nausea and Vomiting (N/V). ondansetron 2020- Yes [id number] 4mg Take 1 Univers 4 mg 1-06 tablet by ity of disintegrat 00:00: mouth [place] ing tablet 00 every 8 Medica l (eight) Branch hours as needed for Nausea and Vomiting (N/V). ondansetron 2019- Yes [id number] 4mg Take 1 Univers 4 mg 1-06 tablet by ity of disintegrat 00:00: mouth [place] ing tablet 00 every 8 Medica l (eight) Branch hours as needed for Nausea and Vomiting (N/V). ondansetron 2019- Yes [id number] 4mg Take 1 Univers 4 mg 1-06 tablet by ity of disintegrat 00:00: mouth [place] ing tablet 00 every 8 Medica l (eight) Branch hours as needed for Nausea and Vomiting (N/V). ondansetron 2019- Yes [id number] 4mg Take 1 Univers 4 mg 1-06 tablet by ity of disintegrat 00:00: mouth [place] ing tablet 00 every 8 Medica l (eight) Branch hours as needed for Nausea and Vomiting (N/V). ondansetron 2019- Yes [id number] 4mg Take 1 Univers 4 mg 1-06 tablet by ity of disintegrat 00:00: mouth [place] ing tablet 00 every 8 Medica l (eight) Branch hours as needed for Nausea and Vomiting (N/V). ondansetron 2019- Yes [id number] 4mg Take 1 Univers 4 mg 1-06 tablet by ity of disintegrat 00:00: mouth [place] ing tablet 00 every 8 Medica l (eight) Branch hours as needed for Nausea and Vomiting (N/V). ondansetron 2019- Yes [id number] 4mg Take 1 Univers 4 mg 1-06 tablet by ity of disintegrat 00:00: mouth [place] ing tablet 00 every 8 Medica l (eight) Branch hours as needed for Nausea and Vomiting (N/V). ondansetron 2019- Yes [id number] 4mg Take 1 Univers 4 mg 1-06 tablet by ity of disintegrat 00:00: mouth [place] ing tablet 00 every 8 Medica l (eight) Branch hours as needed for Nausea and Vomiting (N/V). ondansetron 2019-07 Yes [id number] 4mg Take 1 Univers 4 mg 1-06 tablet by ity of disintegrat 00:00: mouth [place] ing tablet 00 every 8 Medica l (eight) Branch hours as needed for Nausea and Vomiting (N/V). ondansetron 2019-07 Yes Opioid 4mg Take 1 Un frida 4 mg 1-06 withdrawal tablet by ity of disintegrat 00:00: mouth [place] ing tablet 00 every 8 Medica l (eight) Branch hours as needed for Nausea and Vomiting (N/V). ondansetron 2019-07- No [id number] 4mg Take 1 Univers 4 mg 1-06 04-20 tablet by ity of disintegrat 00:00: 00:00 [place] tablet 00 :00 every 8 Medica l (eight) Branch hours as needed for Nausea and Vomiting (N/V). traMADoL 2019- No 50mg 50 mg, Univer s (ULTRAM) 04-01 Oral, ONCE ity of tablet 50 19:15: 18:30 NOW, 1 [place] mg 00 :00 dose, [facility] Medical 04/01/20 at Branch 1415, Routine Motrin 600 2019-0 Yes 600 mg = 1 M emoria mg oral 7-13 tab, PO, l tablet 23:27: Q6H, X 5 [place] 00 day, # 20 tab, 0 Refill(s) Motrin 600 2020-0 Yes 600 mg = 1 M emoria mg oral 7-13 tab, PO, l tablet 23:27: Q6H, X 5 [place] 00 day, # 20 tab, 0 Refill(s) Motrin 600 2020-0 Yes 600 mg = 1 M emoria mg oral 7-13 tab, PO, l tablet 23:27: Q6H, X 5 [place] 00 day, # 20 tab, 0 Refill(s) Motrin 2020-0 No Notes: Memoria 7-13 (Same as: l 22:22: Motrin) [place] 00 "Do Not Crush" Take with food. Motrin 2020-0 No Notes: Memoria 7-13 (Same as: l 22:22: Motrin) [place] 00 "Do Not Crush" Take with food. Motrin 2020-0 No Notes: Memoria 7-13 (Same as: l 22:22: Motrin) [place] 00 "Do Not Crush" Take with food. cefTRIAXone 2019- No 1000mg 1,000 mg, Univers (ROCEPHIN) 12-20 IV ity of 1,000 mg in 22:45: 22:17 Piggyback, [place] NaCl 0.9% 00 :00 ONCE, 1 Medical (NS) 50 mL dose, Sat [facility] ch MINI-BAG 12/21/19 at 1745, 50 mL
Reas on for Anti-Infec tive: Documented Infection< br>Documen afshin Infection Site: Urine
D uration of Therapy: 7 days potassium 2019- No 10meq 10 mEq, IV Univers chloride 10 12-20 Piggyback, i ty of mEq in 100 22:15: 22:19 ONCE, 1 [place] as mL RTU 00 :00 dose, Sat Medical 12/21/19 at Branch 1715, 100 mL KCL No 40meq 40 mEq, Univers (KLOR-CON 12-20 Oral, ity of M20) tablet 22:15: 21:19 ONCE, 1 [place] 40 mEq 00 :00 dose, Sat Medical 12/21/19 at Branch 1715, [place] metoclopram No 10mg 10 mg, Uni vers srikanth HCl 12-20 Slow IV ity of (REGLAN) 21:45: 20:45 Push, [place] injection 00 :00 ONCE, 1 Medical 10 mg dose, Sat Branch 12/21/19 at 1645, [place] ketorolac No 30mg 30 mg, Unive rs (TORADOL) 12-20 Slow IV ity of injection 21:45: 20:45 Push, [place] 30 mg 00 :00 ONCE, 1 Medical dose, Sat Branch 12/21/19 at 1645, Routine
education faculty member approving Restricted medication : SHIRIN LOPEZ F NaCl 0.9% 2020- No 1000mL at 999 Uni vers (NS) bolus 12-20 mL/hr, ity of infusion 20:45: 22:38 1,000 mL, [place] as 1,000 mL 00 :00 IV Medical Infusion, Branch ONCE, 1 dose, 12/21/19 at 1545, [place] cefdinir 2020-0 2020- No [id number] 300mg Take 1 U nivers 300 mg [...] for Wheezing or Shortness of Breath. albuterol 0 Yes 2{puff} Inhale 2 U nivers (VENTOLIN) 4-13 Puffs ity of 90 00:00: every 4 [place] mcg/actuati 00 (four) Medica l on inhaler hours as Branc h needed for Wheezing or Shortness of Breath. albuterol 2015- Yes 2{puff} Inhale 2 U nivers (VENTOLIN) 4-13 Puffs ity of 90 00:00: every 4 [place] mcg/actuati 00 (four) Medica l on inhaler hours as Branc h needed for Wheezing or Shortness of Breath. albuterol 0 Yes 2{puff} Inhale 2 U nivers (VENTOLIN) 4-13 Puffs ity of 90 00:00: every 4 [place] mcg/actuati 00 (four) Medica l on inhaler hours as Branc h needed for Wheezing or Shortness of Breath. albuterol 0 Yes 2{puff} Inhale 2 U nivers (VENTOLIN) 4-13 Puffs ity of 90 00:00: every 4 [place] mcg/actuati 00 (four) Medica l on inhaler hours as Branc h needed for Wheezing or Shortness of Breath. albuterol 0 Yes 2{puff} Inhale 2 U nivers (VENTOLIN) [...] for Wheezing or Shortness of Breath. naproxen 2015-0 Yes 500mg Take 1 Tab Un frida (NAPROSYN) 1-21 by mouth ity o f 500 mg 00:00: as needed [place] tablet 00 for Pain Medical (scale Branch 1-3) (TO MAX OF BID). cyclobenzap 2015-0 Yes 10mg Take 1 Tab Univers rine [...] Branch 1-3) (TO MAX OF BID). cyclobenzap Yes 10mg Take 1 Tab Univers rine 1-21 by mouth ity of (FLEXERIL) 00:00: as needed [place] 10 mg 00 for Muscle Medical tablet Spasms (TO Branch MAX OF TID). naproxen Yes 500mg Take 1 Tab Un fr[place] (NAPROSYN) 1-21 by mouth ity o f 500 mg 00:00: as needed [place] tablet 00 for Pain Medical (scale Branch 1-3) (TO MAX OF BID). cyclobenzap Yes 10mg Take 1 Tab Univers rine 1-21 by mouth ity of (FLEXERIL) 00:00: as needed [place] 10 mg 00 for Muscle Medical tablet Spasms (TO Branch MAX OF TID). naproxen 2021- No 500mg Take 1 Tab U nivers (NAPROSYN) 1-21 04-20 by mouth ity of 500 mg 00:00: 00:00 as needed [place] tablet 00 :00 for Pain Medical (scale Branch 1-3) (TO MAX OF BID). cyclobenzap 2021- No 10mg Take 1 Tab Univers rine 1-21 04-20 by mouth ity of (FLEXERIL) 00:00: 00:00 as needed [place] 10 mg 00 :00 for Muscle Medical tablet Spasms (TO Branch MAX OF TID). Vital Signs Vital Name Observation Time Observation Value Comments Source Systolic blood 2022-01-21 20:00:00 105 mm[Hg] Univer sity of pressure [facility] Diastolic blood 2022-01-21 20:00:00 79 mm[Hg] [facility]-21 20:00:00 116 /[facility] Respiratory rate 2022-01-21 20:00:00 16 /min [facility] Oxygen saturation in 2022-01-21 20:00:00 96 /min [facility] Arterial blood by [facility] Pulse oximetry Branch Body temperature 2022-01-21 17:11:22 37.44 Yas [facility] Body weight 2022-01-21 17:05:00 43.999 kg [facility] [place] [facility] BMI 2022-01-21 17:05:00 16.14 kg/m2 [facility] [place] [facility] Systolic blood 2021-11-03 16:35:00 112 mm[Hg] Univer sity of pressure [place] [facility] Diastolic blood 2021-11-03 16:35:00 71 mm[Hg] Unive rsity of pressure [place] [facility] Heart rate 2021-11-03 16:35:00 94 /min [facility] [place] [facility] Body temperature 2021-11-03 16:35:00 36.28 Yas [facility] [place] [facility] Respiratory rate 2021-11-03 16:35:00 16 /min [facility] [place] [facility] Oxygen saturation in 2021-11-03 16:35:00 98 /min University of Arterial blood by [facility] Pulse oximetry Branch Body height 2021-10-31 05:53:00 165.1 cm [facility] [place] [facility] Body weight 2021-10-31 05:50:00 56.473 kg [facility] [place] [facility] BMI 2021-10-31 05:50:00 20.72 kg/m2 [facility] [place] [facility] Heart rate 2021-10-30 21:00:00 116 /min [facility] [place] [facility] Respiratory rate 2021-10-30 21:00:00 21 /min [facility] [place] [facility] Oxygen saturation in 2021-10-30 21:00:00 91 /min University of Arterial blood by [facility] Pulse oximetry Branch Systolic blood 2021-10-30 20:00:00 122 mm[Hg] Univer sity of pressure [place] [facility] Diastolic blood 2021-10-30 20:00:00 68 mm[Hg] Unive rsity of pressure [place] [facility] Body temperature 2021-10-30 17:00:00 35.67 Yas [facility] [place] [facility] Body weight 2021-10-29 05:41:00 56.5 kg [facility] [place] [facility] BMI 2021-10-29 05:41:00 20.73 kg/m2 [facility] [place] [facility] Systolic blood 2021-08-27 23:36:00 149 mm[Hg] Univer sity of pressure [facility] Diastolic blood 2021-08-27 23:36:00 90 mm[Hg] Unive rsity of pressure [place] [facility] Heart rate 2021-08-27 23:36:00 104 /min [facility] [place] [facility] Body temperature 2021-08-27 23:36:00 36.94 Yas [facility] [place] [facility] Respiratory rate 2021-08-27 23:36:00 18 /min [facility] [place] [facility] Body height 2021-08-27 23:36:00 165.1 cm [facility] [place] [facility] Body weight 2021-08-27 23:36:00 56.7 kg [facility] [place] [facility] BMI 2021-08-27 23:36:00 20.80 kg/m2 [facility] [place] [facility] Oxygen saturation in 2021-08-27 23:36:00 96 /min University of Arterial blood by [place] [employer] [facility] Pulse oximetry Branch Systolic blood 2021-04-13 02:04:00 133 mm[Hg] Univer sity of pressure [facility] Diastolic blood 2021-04-13 02:04:00 89 mm[Hg] Unive rsity of pressure [place] [facility] Heart rate 2021-04-13 02:04:00 83 /min [facility] [place] [facility] Body temperature 2021-04-13 02:04:00 36.78 Yas [facility] Respiratory rate 2021-04-13 02:04:00 18 /min [facility] [place] [facility] Body height 2021-04-13 02:04:00 165.1 cm [facility] [place] [facility] Body weight 2021-04-13 02:04:00 45.36 kg [facility] [place] [facility] BMI 2021-04-13 02:04:00 16.64 kg/m2 [facility] [place] [facility] Oxygen saturation in 2021-04-13 02:04:00 99 /min University of Arterial blood by [employer] [facility]orge Pulse oximetry Branch Systolic blood 2021-03-18 08:33:06 164 mm[Hg] Univer sity of pressure [place] [facility] Diastolic blood 2021-03-18 08:33:06 67 mm[Hg] Unive rsity of pressure [place] [facility] Heart rate 2021-03-18 08:33:06 88 /min [facility] [place] [facility] Respiratory rate 2021-03-18 08:33:06 20 /min [facility] [place] [facility] Oxygen saturation in 2021-03-18 08:33:06 97 /min University of Arterial blood by [facility] Pulse oximetry [facility] Body temperature 2021-03-18 05:37:00 36.06 Yas [facility] Body height 2021-03-18 05:37:00 165.1 cm [facility] Body weight 2021-03-18 05:37:00 52.164 kg [facility] BMI 2021-03-18 05:37:00 19.14 kg/m2 [facility] Systolic blood 2021-03-13 19:22:00 163 mm[Hg] [facility] Diastolic blood 2021-03-13 19:22:00 95 mm[Hg] [facility] [facility] Heart rate 2021-03-13 19:22:00 126 /min [facility] Body temperature 2021-03-13 19:22:00 37.33 Yas [facility] Respiratory rate 2021-03-13 19:22:00 18 /min [facility] Body weight 2021-03-13 19:22:00 45.36 kg [facility] BMI 2021-03-13 19:22:00 16.64 kg/m2 [facility] Oxygen saturation in 2021-03-13 19:22:00 98 /min [facility] of Arterial blood by [facility] Pulse oximetry Branch Systolic blood 2020-11-20 10:29:00 129 mm[Hg] Univer sity of [facility] Diastolic blood 2020-11-20 10:29:00 79 mm[Hg] Unive rsity of [facility] Heart rate 2020-11-20 10:29:00 63 /min [facility] Respiratory rate 2020-11-20 10:29:00 13 /min [facility] Oxygen saturation in 2020-11-20 10:29:00 99 /min [facility] Arterial blood by [facility] Pulse oximetry Branch Systolic blood 2020-11-20 10:29:00 129 mm[Hg] Univer [facility]ity [facility] Diastolic blood 2020-11-20 10:29:00 79 mm[Hg] Unive rsity of [facility] Heart rate 2020-11-20 10:29:00 63 /min [facility] Respiratory rate 2020-11-20 10:29:00 13 /min [facility] Oxygen saturation in 2020-11-20 10:29:00 99 /min [facility] Arterial blood by [employer] Pulse oximetry Branch Body temperature 2020-11-20 08:36:00 37 Yas [facility] Body weight 2020-11-20 08:36:00 45.36 kg [facility] BMI 2020-11-20 08:36:00 16.64 kg/m2 [facility] Body temperature 2020-11-20 08:36:00 37 Yas [facility] Body weight 2020-11-20 08:36:00 45.36 kg [facility] BMI 2020-11-20 08:36:00 16.64 kg/m2 [facility] Systolic blood 2020-11-20 10:29:00 129 mm[Hg] Un[facility]ity of [facility] Diastolic blood 2020-11-20 10:29:00 79 mm[Hg] Unive rsity of [facility] Heart rate 2020-11-20 10:29:00 63 /min [facility] Respiratory rate 2020-11-20 10:29:00 13 /min [facility] Oxygen saturation in 2020-11-20 10:29:00 99 /min [facility]terial blood by [employer] Pulse oximetry Branch Systolic blood 2020-11-20 10:29:00 129 mm[Hg] Univer [facility]ity of [facility] Diastolic blood 2020-11-20 10:29:00 79 mm[Hg] Unive rsity of [facility] Heart rate 2020-11-20 10:29:00 63 /min [facility] Respiratory rate 2020-11-20 10:29:00 13 /min [facility] Oxygen saturation in 2020-11-20 10:29:00 99 /min [facility]ial blood by [facility] Pulse oximetry Branch Body temperature 2020-11-20 08:36:00 37 Yas [facility] Body weight 2020-11-20 08:36:00 45.36 kg [facility] BMI 2020-11-20 08:36:00 16.64 kg/m2 [facility] Body temperature 2020-11-20 08:36:00 37 Yas [facility] Body weight 2020-11-20 08:36:00 45.36 kg [facility] BMI 2020-11-20 08:36:00 16.64 kg/m2 [facility] Systolic blood 2020-05-22 23:23:00 143 mm[Hg] Un[facility]ity of [facility] Diastolic blood 2020-05-22 23:23:00 93 mm[Hg] [facility]ity of [facility] [place] Heart rate 2020-05-22 23:23:00 95 /min [facility] [place] [facility] [place] Body temperature 2020-05-22 23:23:00 36.67 Yas [facility] Respiratory rate 2020-05-22 23:23:00 18 /min [facility] Oxygen saturation in 2020-05-22 23:23:00 99 /min [facility] Arterial blood by [facility] Pulse oximetry Branch Body height 2020-05-22 23:20:31 165.1 cm [facility] [place] Body weight 2020-05-22 23:20:31 63.504 kg [facility] BMI 2020-05-22 23:20:31 23.30 kg/m2 [facility] Systolic blood 2020-04-07 02:38:00 139 mm[Hg] Un[facility] of [facility] Diastolic blood 2020-04-07 02:38:00 83 mm[Hg] Unive rsity of [facility] Heart rate 2020-04-07 02:38:00 69 /min [facility] Body temperature 2020-04-07 02:38:00 36.72 Yas [facility] Respiratory rate 2020-04-07 02:38:00 16 /min [facility] Body height 2020-04-07 02:38:00 165.1 cm [facility] Body weight 2020-04-07 02:38:00 52.164 kg [facility] BMI 2020-04-07 02:38:00 19.14 kg/m2 [facility] Oxygen saturation in 2020-04-07 02:38:00 100 /min [facility] Arterial blood by [facility] Pulse oximetry Branch Systolic blood 2020-04-01 17:24:53 153 mm[Hg] Univer [facility]ity of [facility] Diastolic blood 2020-04-01 17:24:53 105 mm[Hg] Unive rsity of [facility] Heart rate 2020-04-01 17:24:53 98 /min [facility] Body temperature 2020-04-01 17:24:53 37.28 Yas [facility] Respiratory rate 2020-04-01 17:24:53 17 /min [facility] Body height 2020-04-01 17:22:00 165.1 cm [facility] Body weight 2020-04-01 17:22:00 52.164 kg [facility] BMI 2020-04-01 17:22:00 19.14 kg/m2 [facility] Oxygen saturation in 2020-04-01 17:22:00 100 /min [facility] Arterial blood by [facility] Pulse oximetry Branch Body temperature 2019-12-21 21:19:45 37.72 Yas [facility] Systolic blood 2019-12-21 21:00:00 125 mm[Hg] Univer [facility]ity of [facility] Diastolic blood 2019-12-21 21:00:00 74 mm[Hg] Unive rsity of [facility] Heart rate 2019-12-21 21:00:00 91 /min [facility] Respiratory rate 2019-12-21 21:00:00 19 /min [facility] Oxygen saturation in 2019-12-21 21:00:00 99 /min [facility]ial blood by [facility] Pulse oximetry Branch Body height 2019-12-21 19:18:00 165.1 cm [facility] Body weight 2019-12-21 19:18:00 49.896 kg [facility] BMI 2019-12-21 19:18:00 18.30 kg/m2 [facility] Systolic (mm Hg) 2020-09-15 00:09:00 Theo [facility] [place] Diastolic (mm Hg) 2020-09-15 00:09:00 Mem [facility] [place] Respitory Rate 2020-09-15 00:09:00 [facility] [place] Heart Rate 2020-09-15 00:09:00 [facility] [place] Respitory Rate 2020-09-14 17:56:00 [facility] [place] Heart Rate 2020-09-14 17:56:00 [facility] [place] Systolic (mm Hg) 2020-09-14 17:56:00 Theo [facility] [place] Diastolic (mm Hg) 2020-09-14 17:56:00 [facility] [place] Temperature Oral (F) 2020-09-14 14:00:00 98.4 F [facility] [place] Heart Rate 2020-09-14 14:00:00 [facility] [place] Respitory Rate 2020-09-14 14:00:00 [facility] [place] Systolic (mm Hg) 2020-09-14 14:00:00 Theo rial [place] Diastolic (mm Hg) 2020-09-14 14:00:00 [facility] [place] Temperature Oral (F) 2020-09-14 09:40:00 98.3 F [facility] [place] Respitory Rate 2020-09-14 09:40:00 [facility] [place] Heart Rate 2020-09-14 09:40:00 [facility] [place] Systolic (mm Hg) 2020-09-14 09:40:00 Theo [facility] [place] Diastolic (mm Hg) 2020-09-14 09:40:00 [facility] [place] Temperature Oral (F) 2020-09-14 05:30:00 98.6 F [facility] [place] Heart Rate 2020-09-14 05:30:00 [facility] [place] Respitory Rate 2020-09-14 05:30:00 [facility] [place] Systolic (mm Hg) 2020-09-14 05:30:00 Theo [facility] [place] Diastolic (mm Hg) 2020-09-14 05:30:00 [facility] [place] Height 2020-09-14 02:59:00 165.1 cm [facility] [place] Weight 2020-09-14 02:59:00 [facility] [place] BMI Calculated 2020-09-14 02:59:00 [facility] [place] Respitory Rate 2020-09-14 01:40:00 [facility] [place] Temperature Oral (F) 2020-09-14 01:40:00 98.2 F [facility] [place] Heart Rate 2020-09-14 01:40:00 [facility] [place] Systolic (mm Hg) 2020-09-14 01:40:00 Theo [facility] [place] Diastolic (mm Hg) 2020-09-14 01:40:00 [facility] [place] Height 2020-09-13 18:45:00 167.64 cm [facility] [place] BMI Calculated 2020-09-13 18:45:00 [facility] [place] Weight 2020-09-13 18:45:00 [facility] [place] Temperature Oral (F) 2020-01-27 23:51:00 98.8 F [facility] [place] Heart Rate 2020-01-27 23:51:00 [facility] [place] Respitory Rate 2020-01-27 23:51:00 [facility] [place] Systolic (mm Hg) 2020-01-27 23:51:00 Theo [facility] [place] Diastolic (mm Hg) 2020-01-27 23:51:00 [facility] [place] Height 2020-01-27 22:21:00 165.1 cm [facility] [place] BMI Calculated 2020-01-27 22:21:00 [facility] [place] Weight 2020-01-27 22:21:00 [facility] [place] Systolic (mm Hg) 2020-01-27 22:21:00 Theo rial [place] Diastolic (mm Hg) 2020-01-27 22:21:00 [facility] [place] Heart Rate 2020-01-27 22:21:00 [facility] [place] Respitory Rate 2020-01-27 22:21:00 [facility] [place] Temperature Oral (F) 2020-01-27 22:21:00 98.8 F [facility] [place] Procedures Procedure Date / Time Performing Clinician Source Performed CT ABDOMEN PELVIS W 2022-01-21 19:20:34 Jenn Ovalle [facility] CONTRAST Medical Branch COMP. METABOLIC PANEL 2022-01-21 18:51:00 Jenn Ovalle [facility] ([id number]) Medical Branch URINALYSIS 2022-01-21 17:53:00 Jenn Ovalle [facility] URINE DRUG (IMMUNOASSAY) 2022-01-21 17:53:00 Jenn Ovalle [facility] nch SCREEN W/O REFLEX AC PANEL 21 + LACTIC ACID 2022-01-21 17:38:00 [facility] 2022-01-21 17:37:00 Jenn Ovalle [facility] ETHANOL 2022-01-21 17:37:00 Jenn Ovalle [facility] CBC WITH DIFF 2022-01-21 17:37:00 Jenn Ovalle [facility] PROTHROMBIN TIME / INR 2022-01-21 17:37:00 Jenn Ovalle [facility] ACTIVATED PARTIAL 2022-01-21 17:37:00 Jenn Ovalle [facility] THRMPLAS HEATHER [facility] COVID-19 (ID NOW RAPID 2022-01-21 17:36:00 Jenn Ovalle [facility] TESTING) [facility] CONSENT/REFUSAL FOR 2022-01-21 17:00:38 Doctor Unassigned, [facility] DIAGNOSIS AND TREATMENT [place] [facility] POCT GLUCOSE (AUTOMATED) 2021-11-03 12:27:00 Stevie Hutchison [facility] PHOSPHORUS 2021-11-03 08:24:00 Guerda Leal [facility] MAGNESIUM 2021-11-03 08:24:00 Elvis [facility] BASIC METABOLIC PANEL 2021-11-03 08:24:00 Guerda Leal [facility] (NA, K, CL, CO2, GLUCOSE, Medica l Branch BUN, CREATININE, CA) POCT GLUCOSE (AUTOMATED) 2021-11-03 01:25:00 Stevie Hutchison [facility] POCT GLUCOSE (AUTOMATED) 2021-11-02 21:49:00 Scott Stevie [facility] POCT GLUCOSE (AUTOMATED) 2021-11-02 17:27:00 Stevie Hutchison [facility] POCT GLUCOSE (AUTOMATED) 2021-11-02 14:10:00 Scott Stevie [facility] XR KUB 2021-11-02 12:54:00 Elvis [facility] PHOSPHORUS 2021-11-02 08:28:00 Elvis [facility] MAGNESIUM 2021-11-02 08:28:00 Elvis [facility] BASIC METABOLIC PANEL 2021-11-02 08:28:00 Elvis [facility] (NA, K, CL, CO2, GLUCOSE, Medica l Branch BUN, CREATININE, CA) CBC WITH DIFF 2021-11-02 08:28:00 Elvis [facility] CBC WITH DIFF 2021-11-01 21:17:00 Elvis [facility] XR KUB 2021-11-01 14:32:00 Elvis [facility] LACTIC ACID WHOLE BLOOD 2021-11-01 14:01:00 [facility] HEPATIC FUNCTION PANEL 2021-11-01 11:21:00 Elvis [facility] ([id number]) (ALB,T.PRO,BILI [facility] T,BU/BC,ALT,AST,ALK PHOS) BASIC METABOLIC PANEL 2021-11-01 11:21:00 Elvis [facility] (NA, K, CL, CO2, GLUCOSE, Medica l Branch BUN, CREATININE, CA) PROTHROMBIN TIME / INR 2021-11-01 11:21:00 Guerda Leal [facility] XR KUB 2021-10-31 17:19:00 Elvis [facility] OSMOLALITY URINE 2021-10-31 16:53:00 Elvis [facility] URINALYSIS 2021-10-31 16:53:00 Elvis [facility] SODIUM, URINE RANDOM 2021-10-31 16:53:00 Elvis [facility] XR KUB 2021-10-31 14:40:00 Elvis [facility] XR KUB 2021-10-31 09:32:00 [facility] RBC 2021-10-31 07:17:00 Naomie [facility] PREPARE PACKED RBC 2021-10-31 07:10:15 [facility] 2021-10-31 06:11[facility] 2021-10-31 06:11:00 [facility] OSMOLALITY, SERUM OR 2021-10-31 06:11:00 [facility] BASIC METABOLIC PANEL 2021-10-31 06:11:00 [facility] (NA, K, CL, CO2, GLUCOSE, Luis Medica l Branch BUN, CREATININE, CA) DIFF CONSULT 2021-10-31 06:11:00 [facility] INTERPRETATION [facility] CBC WITH DIFF 2021-10-31 06:11:00 [facility] PROTHROMBIN TIME / INR 2021-10-31 06:11:00 [facility] RETICULOCYTES AUTOMATED 2021-10-31 06:11:00 [facility] AB[facility]H CONFIRMATION (LAB 2021-10-31 01:49:00 Shirin Lopez [facility] ONLY) Medical [place] HAPTOGLOBIN, SERUM 2021-10-31 01:41:00 [facility] HEPATIC FUNCTION PANEL 2021-10-31 01:41:00 Forrest Amaya [facility] ([id number]) (ALB,T.PRO,BILI Medical Branch T,BU/BC,ALT,AST,ALK PHOS) BASIC METABOLIC PANEL 2021-10-31 01:41:00 Forrest Amaya [facility] (NA, K, CL, CO2, GLUCOSE, Medica l Branch BUN, CREATININE, CA) ETHANOL 2021-10-31 01:41:00 [facility] LACTIC ACID WHOLE BLOOD 2021-10-31 01:40:00 Forrest Amaya [facility] HB ABO GROUPING 2021-10-31 01:24:00 Shirin Lopez [facility] CONSENT/REFUSAL FOR 2021-10-30 23:05:21 Doctor Unassigned, [facility] DIAGNOSIS AND TREATMENT [place] Medical Branch CBC WITHOUT DIFF 2021-10-30 12:38:00 Gopal [facility] PHOSPHORUS 2021-10-30 08:45:00 Gopal [facility] MAGNESIUM 2021-10-30 08:45:00 Sharda [facility] HEPATIC FUNCTION PANEL 2021-10-30 08:45:00 [id number] (ALB,T.PRO,BILI [facility] T,BU/BC,ALT,AST,ALK PHOS) BASIC METABOLIC PANEL 2021-10-30 08:45:00 [facility] (NA, K, CL, CO2, GLUCOSE, Medica l Branch BUN, CREATININE, CA) CBC WITH DIFF 2021-10-30 08:45:00 Sharda [facility] MAGNESIUM 2021-10-30 03:11:00 Gopal [facility] BASIC METABOLIC PANEL 2021-10-30 03:11:00 Herron, [facility] (NA, K, CL, CO2, GLUCOSE, Medica l Branch BUN, CREATININE, CA) LACTIC ACID WHOLE BLOOD 2021-10-30 03:11:00 Gopal [facility] XR KUB 2021-10-29 15:52:09 Sharda [facility] POCT GLUCOSE (AUTOMATED) 2021-10-29 13:28:00 Shankar Hernandez [facility] COVID-19 (ID NOW RAPID 2021-10-29 10:34:00 Callum Esteban [facility] TESTING) Medical Branch LAB ONLY COVID 2021-10-29 10:34:00 Ram[facility]rez [facility] LACTIC ACID WHOLE BLOOD 2021-10-29 10:33:00 Callum Esteban [facility] CT ABDOMEN PELVIS WO 2021-10-29 09:56:05 Callum Esteban [facility] US ABDOMEN LIMITED WITH 2021-10-29 09:25:00 Callum Esteban [facility] DOPPLER [facility] CT ABDOMEN PELVIS W 2021-10-29 08:00:34 Migue Joy [facility] URINE DRUG (IMMUNOASSAY) 2021-10-29 07:24:00 Callum Esteban [facility] SCREEN OSMOLALITY URINE 2021-10-29 07:24:00 [facility] SODI[facility] URINE RANDOM 2021-10-29 07:24:00 [facility] LACTIC ACID WHOLE BLOOD 2021-10-29 06:47:00 Carlito Callum [facility] XR ABDOMEN 1 VW 2021-10-29 06:10:00 Carlito [facility] XR CHEST 1 VW 2021-10-29 06:10:00 Carlito [facility] PHOSPHORUS 2021-10-29 05:47:00 Carlito [facility] LIPASE 2021-10-29 05:47:00 Carlito [facility] MAGNESIUM 2021-10-29 05:47:00 Carlito [facility] FERRITIN SERUM 2021-10-29 05:47:00 Carlito [facility] VITAMIN B12, LEVEL 2021-10-29 05:47:00 Rani Theodore [facility] FOLATE 2021-10-29 05:47:00 Rani [facility] TEST, SERUM 2021-10-29 05:47:00 [facility] PANEL 2021-10-29 05:47:00 Callum Esteban [facility] ([id number]) (ALB,T.PRO,BILI Medical Branch T,BU/BC,ALT,AST,ALK PHOS) BASIC METABOLIC PANEL 2021-10-29 05:47:00 Carlito [facility] (NA, K, CL, CO2, GLUCOSE, Medica l Branch BUN, CREATININE, CA) IRON PANEL 2021-10-29 05:47:00 Carlito [facility] ETHANOL 2021-10-29 05:47:00 aCrlito [facility] CBC WITH DIFF 2021-10-29 05:47:00 Carlito [facility] GLYCOSYLATED HEMOGLOBIN 2021-10-29 05:47:00 Carlito [facility] (A1C) [facility] PROTHROMBIN TIME / INR 2021-10-29 05:47:00 Carlito Callum [facility] ACTIVATED PARTIAL 2021-10-29 05:47:00 Carlito [facility] THRMPLAS HEATHER [facility] HEPATITIS B SURFACE 2021-10-29 05:47:00 Carlito [facility] ANTIBODY [facility] HEPATITIS B SURFACE 2021-10-29 05:47:00 Carlito [facility] ANTIGEN [facility] HCV ANTIBODY 2021-10-29 05:47:00 Carlito [facility] HEPATITIS B CORE ANTIBODY 2021-10-29 05:47:00 Callum Esteban [facility] IGM [facility] HAV ANTIBODY (IGG AND 2021-10-29 05:47:00 Carlito [facility] IGM) Medical Branch HIV 1/2 AG-AB WITH REFLEX 2021-10-29 05:47:00 Callum Esteban [facility] HOSPITAL ADMISSION 2021-10-29 05:01:00 Doctor Maria Esther, [facility] [place] RAPID STREP SCREEN FOR 2021-08-28 00:25:00 Jeni Hopkins [facility] GROUP A Medical Branch COVID-19 (ID NOW RAPID 2021-08-28 00:25:00 Jeni Hopkins [facility] TESTING) Medical Branch NOTICE OF PRIVACY 2021-08-27 23:30:31 Doctor Unassigned, [facility] PRACTICES [place] Medical Branch CONSENT/REFUSAL FOR 2021-08-27 23:30:05 Doctor Maria Esther, [facility] DIAGNOSIS AND TREATMENT [place] [facility] [place] URINALYSIS 2021-03-18 07:16:00 Jan Jurado [facility] XR RIBS 3 VW RIGHT 2021-03-18 07:03:17 Lela Ramirez [facility] Medical Branch LIPASE 2021-03-18 05:49:00 Jan Jurado [facility] COMP. METABOLIC PANEL 2021-03-18 05:49:00 Jan Jurado [facility] ([id number]) [facility] CBC WITH DIFF 2021-03-18 05:49:00 Jan Jurado [facility] EMERGENCY SERVICES 2021-03-18 05:01:00 Doctor Maria Esther [facility] AGREEMENTS AND [place] [facility] AUTHORIZATIONS XR RIBS 3 VW LEFT 2021-03-13 22:51:[address] [facility] XR SHOULDER 2+ VW LEFT 2021-03-13 22:51:32 Trevon [facility] CT HEAD WO CONTRAST 2021-03-13 22:30:[address] [facility] TROPONIN I 2021-03-13 21:40:00 Trevon [facility] COMP. METABOLIC PANEL 2021-03-13 21:40:[address] [facility] ([id number]) [facility] CBC WITH DIFF 2021-03-13 21:40:00 Trevon [facility] XR CHEST 1 VW 2021-03-13 20:07:42 Vasquez Jenn [facility] POCT TEST 2021-03-13 19:28:00 Jenn Ovalle [facility] NOTICE OF PRIVACY 2021-03-13 19:22:19 Doctor Maria Esther [facility] [place] [facility] [place] CONSENT/REFUSAL FOR 2021-03-13 19:18:31 Doctor Maria Esther [facility] DIAGNOSIS AND TREATMENT [place] [facility] CT ANGIOGRAM 2020-11-20 09:48:33 Morris Frank [facility] ABDOMEN/PELVIS Medical Branch CT ANGIOGRAM 2020-11-20 09:48:33 Morris Frank [facility] ABDOMEN/PELVIS Medical Branch POCT TEST 2020-11-20 09:27:00 Morris Frank [facility] POCT TEST 2020-11-20 09:27:00 Morris Frank [facility] BILI UNCONJUGATED/BILI 2020-11-20 08:54:00 Morris [facility] COMP. METABOLIC PANEL 2020-11-20 08:54:00 Morris Frank [facility] ([id number]) Medical Branch CBC WITH DIFF 2020-11-20 08:54:00 Singer [facility] PROTHROMBIN TIME / INR 2020-11-20 08:54:00 Morris Frank [facility] BILI UNCONJUGATED/BILI 2020-11-20 08:54:00 Morris Frank [facility] CONJUG [facility] COMP. METABOLIC PANEL 2020-11-20 08:54:00 Morris Frank [facility] ([id number]) Medical Branch CBC WITH DIFF 2020-11-20 08:54:00 Singer [facility] PROTHROMBIN TIME / INR 2020-11-20 08:54:00 Morris Frank [facility] POCT GLUCOSE (AUTOMATED) 2020-11-20 08:36:00 Doctor Tatyanassigned [facility] [place] POCT GLUCOSE (AUTOMATED) 2020-11-20 08:36:00 Doctor Maria Esther, [facility] [place] CONSENT/REFUSAL FOR 2020-04-07 02:26:47 Doctor Maria Esther [facility] DIAGNOSIS AND TREATMENT [place] [facility] [place] CONSENT/REFUSAL FOR 2020-04-01 17:13:40 Doctor Maria Esther [facility] DIAGNOSIS AND TREATMENT [place] [facility] [place] CT HEAD WO CONTRAST 2019-12-21 20:38:21 Shirin Lopez [facility] XR CHEST 1 VW COVID 2019-12-21 20:15:00 Shirin Lopez [facility] COVID-19 (ID NOW RAPID 2019-12-21 20:12:00 Shirin Lopez [facility] TESTING) [facility] POCT TEST 2019-12-21 20:09:00 Shirin Lopez [facility] CBC WITH DIFFERENTIAL 2019-12-21 20:06:00 [facility] LIP[facility] 2019-12-21 20:05:00 Shirin Lopez [facility] MAGNESIUM 2019-12-21 20:05:00 Shirin Lopez [facility] TROPONIN I 2019-12-21 20:05:00 Shirin Lopez [facility] COMP. METABOLIC PANEL 2019-12-21 20:05:00 Shirin Lopez [facility] ([id number]) [facility] URINALYSIS 2019-12-21 20:05:00 Shirin Lopez [facility] LACTIC ACID WHOLE BLOOD 2019-12-21 20:05:00 Shirin Lopez [facility] EKG-12 LEAD 2019-12-21 19:53:02 Shirin Lopez [facility] NOTICE OF PRIVACY 2019-12-21 19:12:49 Doctor Unassigned, [facility] PRACTICES [place] [facility] CONSENT/REFUSAL FOR 2019-12-21 19:12:33 Doctor Unassigned, [facility] DIAGNOSIS AND TREATMENT [place] [facility] [place] Plan of Care Planned Activity Planned Date Details Comments Source Future Scheduled 2021-03-17 INFLUENZA VACCINE Univer sity of Test 00:00:00 (Season Ended) [facility] [code = INFLUENZA Branch VACCINE (Season Ended)] Future Scheduled 2007 Screening for University of Test 00:00:00 malignant neoplasm [place] [facility] ical of cervix Branch (procedure) [code = 819385359] Future Scheduled 2005 DTaP,Tdap,and Td Univers ity of Test 00:00:00 Vaccines (1 - [facility] Tdap) [code = Branch DTaP,Tdap,and Td Vaccines (1 - Tdap)] Future Scheduled 2004 Hepatitis C University of Test 00:00:00 screening [place] [facility] (procedure) [code Branch = 391068084] Future Scheduled 2002 SARS-CoV-2 University of Test 00:00:00 (COVID-19) Vaccine [place] [facility] (1) [code = Branch SARS-CoV-2 (COVID-19) Vaccine (1)] Future Scheduled 1998 Depression University of Test 00:00:00 screening [place] [facility] (procedure) [code Branch = 748155313] Future Scheduled 1987 VARICELLA VACCINES Unive rsity of Test 00:00:00 (1 of 2 - 2-dose [place] [facility] childhood series) Branch [code = VARICELLA VACCINES (1 of 2 - 2-dose childhood series)] Future Scheduled CT ANGIOGRAM University of Test ABDOMEN/PELVIS [facility] [code = 02895] Branch Future Scheduled IRON PANEL [code = Unive rsity of Test 2365] [facility] Future Scheduled IRON PANEL [code = ONCE for 1 Unive rsity of Test 2365] Occurrences [facility] Branch 11/20/2020 until 11/20/2020 Encounters Start End Encounter Admission Attending Care Care Encounter Source Date/Time Date/Time Type Type Clinicians Facility Department ID 2021-11-19 Outpatient [facility] [id number] [place] 09:02:08 [id number] [facility] 2022-01-21 2022-01-21 Emergency [facility] [id number] [facility] 20:17:00 20:17:00 54 2022-01-21 2022-01-21 Emergency Emergency Stewart Hernandezd [facility] JM [id number] [facility] 20:17:00 20:17:00 54 2022-01-21 2022-01-21 Emergency X VASQUEZ [facility] ERT [id number] Univers 12:08:00 15:31:00 JENN vieira [facility] 2022-01-21 2022-01-21 Emergency Vasquez [facility] [id number] Univers 12:08:00 15:31:00 Jenn BILLY 350.1.13.10 i Leo 4.2.7.2.686 [facility] [id number] [facility] 084 Branch 2022-01-21 2022-01-21 Orders Doctor DRE [id number] [facility] 00:00:00 00:00:00 Only Unassigned, HENRIK 350.1.13.10 ity of [place] [facility] 4.2.7.2.686 [facility] [id number] [facility] 009 Branch 2022-01-07 2022-01-08 Emergency [facility]END [facility] [id number] [place] 19:58:00 10:30:00 Health 2021-12-29 2022-01-05 Inpatient EM Aleida, HCABM INTE.02 [id number] - [facility] 16:01:00 16:58:00 Farhad [id number] [facility] 2021-12-29 2022-01-05 Inpatient EM Aleida, HCABM INTE.02 [id number] [facility] 16:01:00 16:58:00 Farhad 61 [facility] 2022-01-03 2022-01-03 Outpatient Physician, LESLIEMN MLAB [id number] [facility] 19:26:00 19:26:00 No 45 [facility] 2021-12-30 2021-12-30 Outpatient WILLIAM DesaiFitzpatrickALMA LABO [id number] [facility] 09:23:00 09:23:00 Alexis Moore [facility] 2021-12-10 2021-12-10 Telephone CARLOS Vega [facility] [id number] [place] 00:00:00 00:00:00 Loree GARDNER 350.1.13.58 H [facility] 9.2.7.2.686 MEDICAL [id number] [place] [address] 3 2021-11-13 2021-12-08 Inpatient E FELIX ESPARZA MED [address] 12:28:00 19:36:00 HALINA 2021-11-04 2021-11-04 Transition LUKAS [place] 1.2.840.114 [id number] Univers 00:00:00 00:00:00 of Care Nazanin DE [place] 350.1.13.10 [place] [id number] [facility] 403 Branch 2021-10-30 2021-11-03 Inpatient X [facility] [id number] Univers 18:08:00 18:33:00 STEVIE ity of [facility] 2021-10-30 2021-11-03 [facility] Shirin Lopez 1.2.8 40.114 [id number] Univers 18:08:00 18:33:00 Encounter Scott Stevie HENRIK 350.1.13.10 ity of [facility] 4.2.7.2.686 [place] [id number] [facility] 099 Branch 2021-10-30 2021-11-03 Inpatient X [facility] [id number] Univers 18:08:00 18:33:00 STEVIE ity of [facility] 2021-10-29 2021-10-30 [facility] MILADYS Hernandez 1.2.840.114 [id number] Univers 00:16:00 16:45:00 Encounter Shankar Welch HENRIK 350.1.13.10 ity of [facility] 4.2.7.2.686 Joesph as [id number] [facility] 086 Branch 2021-10-29 2021-10-29 Orders Doctor DRE 1.2.840.114 [id number] Univers 00:00:00 00:00:00 Only Unassigned, HENRIK 350.1.13.10 ity of [place] [facility] 4.2.7.2.686 Joesph as [id number] [facility] 009 Branch 2021-08-27 2021-08-27 Emergency X [facility] ERT [id number] Univers 17:38:00 18:54:00 JENI ity of [facility] 2021-08-27 2021-08-27 Emergency [facility] [id number] Univers 17:38:00 18:54:00 Jeni Yuri WENCESLAO 350.1.13.10 ity of [place]2.[place] [id number] [facility] 084 Branch 2021-04-12 2021-04-12 Emergency [facility] 1.2.840.114 [id number] Univers 21:10:00 21:25:00 Adele Billy 350.1.13.10 ity of [place] 4.2.7.2.686 [facility] [id number] [address] 2021-04-12 2021-04-12 Emergency [facility] [id number] Univers 21:10:00 21:10:00 ADELE ity [facility] 2021-03-18 2021-03-18 Emergency [facility] 1.2.351.894 [id number] Univers 00:48:00 03:36:00 Lela Billy 350.1.13.10 i ty of [place] 4.2.7.2.686 [facility] [id number] [address] 2021-03-18 2021-03-18 Emergency X [facility]RT [id number] Univers 00:48:00 00:48:00 [facility] 2021-03-18 2021-03-18 Orders Doctor DRE 1.2.840.114 [id number] Univers 00:00:00 00:00:00 Only Unassigned, HENRIK 350.1.13.10 ity of [place] [facility] 4.2.7.2.686 Joesph [id number] [place] [address] Branch 2021-03-13 2021-03-13 Emergency [facility] 1.2.840.114 [id number] Univers 14:41:00 21:11:00 Sandy Billy 350.1.13.10 i ty of [place] 4.2.7.2.686 [facility] [id number] [address] 2021-03-13 2021-03-13 Emergency X [facility] ERT [id number] Univers 14:17:00 14:17:00 ity [facility] 2020-11-20 2020-11-20 Emergency [facility] [id number] Univers 05:24:00 05:32:00 Morris Billy 350.1.13.10 i ty of [place] 4.2.7.2.686 [facility] [id number] [address] 2020-11-20 2020-11-20 Emergency Edson [facility] [id number] Univers 03:34:00 03:34:00 MORRIS vieira [facility] 2020-09-13 2020-09-15 Inpatient [facility] [id number] Memoria 18:41:14 00:52:00 r [place] 01 l [facility] 2020-09-13 2020-09-14 Inpatient E YURY [facility] MED 7501 [facility] 15:07:00 18:52:00 , ARJUN 2020-05-22 2020-05-22 Emergency Zeus Bonnie [facility] 1.2.840. 114 [id number] Univers 17:02:00 17:28:00 Ever Franksergio Billy 350.1.13.10 ity [facility] 4.2.7.2.686 [facility] [id number] [address] 2020-05-22 2020-05-22 Emergency Edson [facility] [id number] Univers 17:02:00 17:02:00 MORRIS vieira [facility] 2020-04-06 2020-04-06 [facility] [id number] Univers 21:43:00 22:22:00 Debra Billy 350.1.13.10 i ty of [place] 4.2.7.2.686 [facility] [id number] [address] 2020-04-06 2020-04-06 Emergency X [facility] [id number] Univers 21:43:00 21:43:00 DEBRA stellabruno [facility] 2020-04-01 2020-04-01 [facility] [id number] [id number] Univers 12:26:00 13:49:00 Debra Billy 350.1.13.10 i ty of [place] 4.2.7.2.686 [facility] [id number] [address] 2020-04-01 2020-04-01 Emergency X [facility] ERT [id number] Univers 12:14:00 12:14:00 ity of [place] [facility] 2020-01-27 2020-01-27 Emergency [facility] [id number] Memoria 21:52:37 23:57:00 r [place] 00 l [facility] 2019-12-21 2019-12-21 [facility] 1.2.840.114 [id number] Univers 14:21:26 17:40:00 Shirin Smith Minetto 350.1.13.10 ity [facility] 4.2.7.2.686 [facility] [id number] [place] [id number] Branch 2019-12-21 2019-12-21 Emergency [facility] [id number] Univers 14:21:26 17:40:00 [facility] 2019-12-21 2019-12-21 Orders Doctor DRE 1.2.840.114 [id number] Univers 00:00:00 00:00:00 Only Unassigned, HENRIK 350.1.13.10 ity of [facility] 4.2.7.2.686 [facility] [id number] [place] [address] Branch 2019-07-01 2019-07-01 Emergency X [facility] ERT [id number] Univers 19:23:22 20:10:00 ROBERTO [facility] Results Test Description Test Time Test Comments Results Result Comments Source COMP. METABOLIC PANEL (57578) 2022-01-21 19:51:03 Test Item Value Reference Range Interpretation Comme nts NA (test code = 7040778670) 142 mmol/L 135-145 K (test code = 2993524720) 3.5 mmol/L 3.5-5.0 CL (test code = 8371054789) 102 mmol/L 98-108 CO2 TOTAL (test code = 2048179608) 30 mmol/L 23-31 AGAP (test code = 0521293170) 2-16 BUN (test code = 3077103573) <2 7-23 L GLUCOSE (test code = 8201836374) 129 mg/dL 70-110 H CREATININE (test code = 0.38 mg/dL 0.50-1.04 L 3652727633) TOTAL BILI (test code = 2.1 mg/dL 0.1-1.1 H 0947982317) CALCIUM (test code = 1103015512) 7.7 mg/dL 8.6-10.6 L T PROTEIN (test code = 8699574291) 6.4 g/dL 6.3-8.2 ALBUMIN (test code = 2412337191) 2.5 g/dL 3.5-5.0 L ALK PHOS (test code = 4546868963) 249 U/L 34-122 H ALTv (test code = 1742-6) 26 U/L 5-35 AST(SGOT) (test code = 6304632689) 139 U/L 13-40 H eGFR (test code = 8408800289) mL/min/1.73m2 SONIA (test code = SONIA) Association of Glomerular Filtration Rate (GFR) and Staging of Kidney Disease* + +-------- + ------+| GFR (mL/min/1.73 m2) ?| With Kidney Damage ?| ?Without Kidney Damage+ +-- + +| ?>90 ?| ?Stage one ?| ? Normal ?+ +------- + -------+| ?60-89 ?| ?Stage two ?| ? Decreased GFR ? + +-------- + ------+| ?30-59 ?| ?Stage three ?| ? Stage three ? + +-------- + ------+| ?15-29 ?| ?Stage four ? | ? Stage four ?+ +------- + -------+| ?<15 (or dialysis) ? ?| ?Stage five ? | ? Stage five ?+ +------- + -------+ *Each stage assumes the associated GFR [...] or abnormalities in imaging tests). Lab Interpretation (test code = Abnormal 22358-7) [facility] 19:12:43 Test Item Value Reference Range Interpretation Comments ALCOHOL (test code = 361 mg/dL 3765319172) SONIA (test code = SONIA) <10 Ngadfzhb17-502 Toxic>100 Depression of HUMAN RESOURCES BENEFITS COORDINATOR>400 Fatalities Reported [facility] 18:51:43 Test Item Value Reference Range Interpretation Comments LIPASE (test code = 6236352052) 15 U/L 0-220 Lab Interpretation (test code = Normal 51134-7) [facility] WITH [id number] 18:35:16 Test Item Value Reference Range Interpretation Comments [...] as normal/abnormal . HGB (test code = 12.0 g/dL 11.6-15.0 718-7) HCT (test code = 35.6 % 35.7-45.2 L 4544-3) MCV (test code = 86.6 fL 80.6-95.5 787-2) MCH (test code = 29.2 pg 25.9-32.8 785-6) MCHC (test code = 33.7 g/dL 31.6-35.1 786-4) RDW-SD (test code = 54.8 fL 39.0-49.9 H 60723-4) RDW-CV (test code = 17.4 % 12.0-15.5 H 788-0) PLT (test code = See_Comment L [Automated 777-3) message] The sy stem which generated this result transmitted reference range : 166 - 358 10*3/ ?L. The reference r yvonne was not used to interpret this result as normal/abnormal . MPV (test code = 10.1 fL 9.5-12.9 78153-6) IPF % (test code = 2.2 % 1.3-7.7 Platelet count 8995029665) measured by fluorescence method. NRBC/100 WBC (test See_Comment [Automat ed code = 4410891420) message] The system which generated this result transmitted reference range : 0.0 - 10.0 /100 WBCs. The refer ence range was not u sed to interpret th is result as normal/abnormal . NRBC x10^3 (test code <0.01 See_Comment [Auto mated = 8597793305) message] The s ystem which generated this result transmitted reference range : 10*3/?L. The reference range was not used to interpret this result as normal/abnormal . GRAN MAT (NEUT) % 65.9 % (test code = 770-8) IMM GRAN % (test code 0.40 % = 2842673263) LYMPH % (test code = 26.7 % 736-9) MONO % (test code = 6.0 % 5905-5) EOS % (test code = 0.5 % 713-8) BASO % (test code = 0.5 % 706-2) GRAN MAT x10^3(ANC) 3.65 10*3/uL 1.88-7.09 (test code = 1432979247) IMM GRAN x10^3 (test <0.03 0.00-0.06 code = 4171750916) LYMPH x10^3 (test code 1.48 10*3/uL 1.32-3.29 = 731-0) MONO x10^3 (test code 0.33 10*3/uL 0.33-0.92 = 742-7) EOS x10^3 (test code = 0.03 10*3/uL 0.03-0.39 711-2) BASO x10^3 (test code 0.03 10*3/uL 0.01-0.07 = 704-7) Lab Interpretation Abnormal (test code = 23412-4) [facility] THRMPLAS [id number] 18:08:08 Test Item Value Reference Range Interpretation Comments APTT Patient (test See_Comment H [Automat ed code = 3173-2) message] The system which generated this result transmitted reference range : 23 - 38 Seconds . The reference range was not used to interpr et this result as normal/abnormal . SONIA (test code = SONIA) The [facility] patient population mean normal value for aPTT is 30 seconds. Lab Interpretation Abnormal (test code = 07802-6) [facility] TIME / [id number] 18:05:26 Test Item Value Reference Range Interpretation Comments PROTIME PATIENT (test See_Comment H [Auto mated message] code = 5964-2) The system wh ich generated this result transmitted ref erence range: 12.0 - 1 4.7 Seconds. The reference range was not used to int erpret this result as normal/abnormal . INR (test code = 6301-6) Nor mal INR <1.1; Warfarin Therap eutic range 2.0 to 3. 0 or 2.5 to 3.5, dep ending upon the indica tions. Lab Interpretation (test Abnormal code = 45155-4) [facility] PANEL 21 + LACTIC [id number] 17:48:44 Test Item Value Reference Range Interpretation Comments PH (test code = 7.32-7.42 H 6158406158) PCO2 FCO (test code = See_Comment [Auto mated 4575948662) message] The sy stem which generated this result transmitted reference range : 41 - 51 mmHg. The reference range was not used to interpret this result as normal/abnormal . PO2 FCO (test code = See_Comment [Autom ated 9287161567) message] The sy stem which generated this result transmitted reference range : 25 - 40 mmHg. The reference range was not used to interpret this result as normal/abnormal . HCO3 FCO (test code = See_Comment H [Auto mated 6888860600) message] The sy stem which generated this result transmitted reference range : 24 - 28 mEq/L. The reference range was not used to interpret this result as normal/abnormal . AC VBE(BEAKER) (test mEq/L code = 6263161879) THB FCO (test code = 14.1 g/dL 12.0-16.0 6324107587) %O2HB FCO (test code = 60.4 % 52.0-63.0 3069249604) %COHB FCO (test code = 5.0 % 0.0-1.5 H 1548907921) %METHB FCO (test code = 0.3 % 0.4-1.5 L 6863681108) VOL%O2 FCO (test code = 11.9 % 6.0-12.0 5033876048) NA (test code = 139 mmol/L 135-145 2746039572) K+ (test code = 3.0 mmol/L 3.5-5.0 L 7261866949) AC CA IONZ (test code = 4.40 mg/dL 4.50-5.30 L 9035758384) GLUCOSE (test code = 151 mg/dL 70-110 H 8951504167) LACTIC ACID (test code 4.82 mmol/L 0.50-2.20 H = 6712506784) Lab Interpretation Abnormal (test code = 86136-5) [facility] METABOLIC [id number] 08:24:00 Test Item Value Reference Range Interpretation Comments SODIUM (test code = 137 mmol/L 136-145 N NA) POTASSIUM (test code 3.5 mmol/L 3.5-5.1 N = K) CHLORIDE (test code 106.0 mmol/L 98-107 N = CL) CARBON DIOXIDE (test 27.0 mmol/L 21-32 N code = CO2) ANION GAP (test code 7.5 10-20 L = GAP) GLUCOSE (test code = 83 mg/dL 74-106 N GLU) BLOOD UREA NITROGEN < 5 mg/dL 7-18 L (test code = BUN) GLOMERULAR > 60 mL/min See_Comment Estimated GFR b y FILTRATION RATE using Modifi ed MDRD (test code = GFR) formula.Ch ronic kidney disease is defined as eith er kidney damageor GFR <60 mL/min/1.73 m2 for >3 months. [Automated mess age] The system [employer] generated this result transmitted ref erence range: >=60. Th e reference range was not used to int erpret this result as normal/abnormal . CREATININE (test 0.40 mg/dL 0.55-1.02 L Note craig ge in code = CREAT) reference rang e due to change in reagent. BUN/CREATININE RATIO 14.3 10-20 N (test code = BUN/CREA) CALCIUM (test code = 8.2 mg/dL 8.5-10.1 L CA) [id number] 08:24:00 Test Item Value Reference Range Interpretation Comments MAGNESIUM (test code = MAG) 1.8 mg/dL 1.8-2.4 N UR OSMOLALITY [id number] 12:16:00 Test Item Value Reference Range Interpretation Comments UR OSMOLALITY RANDOM (test code = 420 mOsm/kg 48-962 N OSMOU) OSMOLALITY [id number] 12:16:00 Test Item Value Reference Range Interpretation Comments OSMOLALITY SERUM (test code = 271 mOsm/kg 275-295 L OSMO) 1355BASIC METABOLIC [id number] 06:15:00 Test Item Value Reference Range Interpretation Comments SODIUM (test code = 135 mmol/L 136-145 L NA) POTASSIUM (test code 3.8 mmol/L 3.5-5.1 N = K) CHLORIDE (test code 104.0 mmol/L 98-107 N = CL) CARBON DIOXIDE (test 28.0 mmol/L 21-32 N code = CO2) ANION GAP (test code 6.8 10-20 L = GAP) GLUCOSE (test code = 98 mg/dL 74-106 N GLU) BLOOD UREA NITROGEN < 5 mg/dL 7-18 L (test code = BUN) GLOMERULAR > 60 mL/min See_Comment Estimated GFR b y FILTRATION RATE using Modifi ed MDRD (test code = GFR) formula.Ch ronic kidney disease is defined as eith er kidney damageor GFR <60 mL/min/1.73 m2 for >3 months. [Automated mess age] The system [employer] generated this result transmitted ref erence range: >=60. Th e reference range was not used to int erpret this result as normal/abnormal . CREATININE (test 0.40 mg/dL 0.55-1.02 L Note craig ge in code = CREAT) reference rang e due to change in reagent. BUN/CREATININE RATIO 12.8 10-20 N (test code = BUN/CREA) CALCIUM (test code = 7.7 mg/dL 8.5-10.1 L CA) [id number] 06:15:00 Test Item Value Reference Range Interpretation Comments PHOSPHORUS (test code = PHOS) 3.6 mg/dL 2.5-4.9 N [id number] 06:15:00 Test Item Value Reference Range Interpretation Comments MAGNESIUM (test code = MAG) 1.7 mg/dL 1.8-2.4 L OSMOLALITY [id number] 19:46:00 Test Item Value Reference Range Interpretation Comments OSMOLALITY SERUM (test code = 271 MOS/KG 275-295 L OSMO) [id number] OSMOLALITY [id number] 19:40:00 Test Item Value Reference Range Interpretation Comments UR OSMOLALITY RANDOM (test code = 420 MOS/KG 300-1000 N OSMOU) [id number] 14:56:00 Test Item Value Reference Range Interpretation Comments UR NA,RANDOM (test code = SUN) 72 mmol/L 20-110 N UR OSMOLALITY [id number] 14:56:00 Test Item Value Reference Range Interpretation Comments UR OSMOLALITY RANDOM (test code = mOsm/kg 48-962 OSMOU) BASIC METABOLIC [id number] 05:32:00 Test Item Value Reference Range Interpretation Comments SODIUM (test code = 129 mmol/L 136-145 L NA) POTASSIUM (test code 4.2 mmol/L 3.5-5.1 N = K) CHLORIDE (test code 100.0 mmol/L 98-107 N = CL) CARBON DIOXIDE (test 26.0 mmol/L 21-32 N code = CO2) ANION GAP (test code 7.2 10-20 L = GAP) GLUCOSE (test code = 92 mg/dL 74-106 N GLU) BLOOD UREA NITROGEN < 5 mg/dL 7-18 L (test code = BUN) GLOMERULAR > 60 mL/min See_Comment Estimated GFR b y FILTRATION RATE using Modifi ed MDRD (test code = GFR) formula.Ch ronic kidney disease is defined as eith er kidney damageor GFR <60 mL/min/1.73 m2 for >3 months. [Automated mess age] The system [facility] [employer] generated this result transmitted ref erence range: >=60. Th e reference range was not used to int erpret this result as normal/abnormal . CREATININE (test 0.30 mg/dL 0.55-1.02 L Note craig ge in code = CREAT) reference rang e due to change in reagent. BUN/CREATININE RATIO 15.6 10-20 N (test code = BUN/CREA) CALCIUM (test code = 7.4 mg/dL 8.5-10.1 L CA) [id number] 05:32:00 Test Item Value Reference Range Interpretation Comments PHOSPHORUS (test code = PHOS) 2.4 mg/dL 2.5-4.9 L [id number] 05:32:00 Test Item Value Reference Range Interpretation Comments MAGNESIUM (test code = MAG) 1.6 mg/dL 1.8-2.4 L BASIC METABOLIC [id number] 06:14:00 Test Item Value Reference Range Interpretation Comments SODIUM (test code = 128 mmol/L 136-145 L NA) POTASSIUM (test code 4.6 mmol/L 3.5-5.1 N = K) CHLORIDE (test code = 99.0 mmol/L 98-107 N CL) CARBON DIOXIDE (test 25.0 mmol/L 21-32 N code = CO2) ANION GAP (test code 8.6 10-20 L = GAP) GLUCOSE (test code = 83 mg/dL 74-106 N GLU) BLOOD UREA NITROGEN < 5 mg/dL 7-18 L (test code = BUN) GLOMERULAR FILTRATION > 60 mL/min See_Comment Estima afshin GFR by RATE (test code = using Amy fied MDRD GFR) formula.Chronic kidney disease is defined as eith er kidney damageor GFR <60 mL/min/1.73 m2 for >3 months. [Automated mess age] The system [employer] generated this result transmitted ref erence range: >=60. Th e reference range was not used to int erpret this result as normal/abnormal . CREATININE (test code 0.40 mg/dL 0.55-1.02 L Note change in = CREAT) reference range due to change in reagent. BUN/CREATININE RATIO 12.8 10-20 N (test code = BUN/CREA) CALCIUM (test code = 6.9 mg/dL 8.5-10.1 L CA) [id number] 06:14:00 Test Item Value Reference Range Interpretation Comments MAGNESIUM (test code = MAG) 1.3 mg/dL 1.8-2.4 L COMPREHENSIVE METABOLIC [id number] 05:04:00 Test Item Value Reference Range Interpretation Comments SODIUM (test code = 130 mmol/L 136-145 L NA) POTASSIUM (test code 2.5 mmol/L 3.5-5.1 LL Results called to = K) [id number] by JAYSON JANG 12/31/21 0504Cr itical results verifie d and read back by Kelly brady? Y FOR ALL ICU PATIENT EXCLUDI NG HOLD PLEASE CALL [phone] CHLORIDE (test code = 99.0 mmol/L 98-107 N CL) CARBON DIOXIDE (test 26.0 mmol/L 21-32 N code = CO2) ANION GAP (test code 7.5 10-20 L = GAP) GLUCOSE (test code = 98 mg/dL 74-106 N GLU) BLOOD UREA NITROGEN 5 mg/dL 7-18 L (test code = BUN) GLOMERULAR FILTRATION > 60 mL/min See_Comment Estima afshin GFR by RATE (test code = using Amy fied MDRD GFR) formula.Chronic kidney disease is defined as eith er kidney damageor GFR <60 mL/min/1.73 m2 for >3 months. [Automated mess age] The system [employer] generated this result transmitted ref erence range: >=60. Th e reference range was not used to int erpret this result as normal/abnormal . CREATININE (test code 0.80 mg/dL 0.55-1.02 N Note change in = CREAT) reference range due to change in reagent. BUN/CREATININE RATIO 6.2 10-20 L (test code = BUN/CREA) TOTAL PROTEIN (test 5.0 gram/dL 6.4-8.2 L code = PROT) ALBUMIN (test code = 1.6 g/dL 3.4-5.0 L ALB) GLOBULIN (test code = 3.4 gram/dL 2.7-4.2 N GLOB) ALBUMIN/GLOBULIN 0.5 0.75-1.50 L RATIO (test code = A/G) CALCIUM (test code = 7.4 mg/dL 8.5-10.1 L CA) BILIRUBIN TOTAL (test 2.40 mg/dL 0.0-1.0 H code = BILT) SGOT/AST (test code = 46 IUnit/L 15-37 H AST) SGPT/ALT (test code = 12 IUnit/L 12-78 N ALT) ALKALINE PHOSPHATASE 124 IUnit/L 45-117 H Note change in TOTAL (test code = reference range due ALKP) to change in reagent. FE W/TOTAL IRON BINDING CAP.2021-12-31 05:04:00 Test Item Value Reference Range Interpretation Comments SERUM IRON (test code = IRON) 67 ug/dL 50-175 N TOTAL IRON BINDING CAPACITY (test 129 mcg/dL 250-450 L code = TIBC) IRON SATURATION (test code = 51.94 % 13-45 H FESAT) VITAMIN [id number] 05:04:00 Test Item Value Reference Range Interpretation Comments VITAMIN B12 (test code = VITB12) 3896 pg/mL 193-986 H TSH REFLEX TO [id number] 05:04:00 Test Item Value Reference Range Interpretation Comments TSH REFLEX TO FT4 (test code = 1.3 0.4-5.5 N TSHREFLEX) [id number] 05:04:00 Test Item Value Reference Range Interpretation Comments FERRITIN (test code = MARIANNE) 272 ng/mL 8-388 N LACTIC [id number] 04:50:00 Test Item Value Reference Range Interpretation Comments LACTIC ACID (test 2.9 mmol/L 0.4-1.9 HH Results ca lled to code = LACT) [id number] by JAYSON PérezGP 12/31/21 0450Cr itical results verifie d and read back by Kelly rsnathan? Y FOR ALL ICU PATIENT EXCLUDING HOLD PLEASE CALL [phone] CBC W/AUTO [id number] 04:18:00 Test Item Value Reference Range Interpretation Comments WHITE BLOOD CELL (test code = 5.8 K/mm3 4.5-12.5 N WBC) RED BLOOD CELL (test code = 3.55 mill/mm3 3.7-5.2 L RBC) HEMOGLOBIN (test code = HGB) 10.3 gram/dL 11.5-15.5 L HEMATOCRIT (test code = HCT) 31.9 % 36.0-46.0 L MEAN CELL VOLUME (test code = 89.9 fL 80-98 N MCV) MEAN CELL HGB (test code = MCH) 29.0 picogram 27.0-33.0 N MEAN CELL HGB CONCETRATION 32.3 gram/dL 33.0-36.0 L (test code = MCHC) RED CELL DISTRIBUTION WIDTH 16.4 % 11.6-16.2 H (test code = RDW) RED CELL DISTRIBUTION WIDTH SD 53.6 fL 37.0-51.0 H (test code = RDW-SD) PLATELET COUNT (test code = 139 K/mm3 150-450 L PLT) MEAN PLATELET VOLUME (test code 10.1 fL 6.7-11.0 N = MPV) NEUTROPHIL % (test code = NT%) 66.7 % 39.0-69.0 N IMMATURE GRANULOCYTE % (test 0.7 % 0.0-5.0 N code = IG%) LYMPHOCYTE % (test code = LY%) 20.1 % 25.0-55.0 L MONOCYTE % (test code = MO%) 9.7 % 0.0-10.0 N EOSINOPHIL % (test code = EO%) 1.9 % 0.0-5.0 N BASOPHIL % (test code = BA%) 0.9 % 0.0-1.0 N NUCLEATED RBC % (test code = 0.0 % 0-0 N NRBC%) NEUTROPHIL # (test code = NT#) 3.84 K/mm3 1.8-7.7 N IMMATURE GRANULOCYTE # (test 0.04 x10 3/uL 0-0.03 H code = IG#) LYMPHOCYTE # (test code = LY#) 1.16 K/mm3 1.0-5.0 N MONOCYTE # (test code = MO#) 0.56 K/mm3 0-0.8 N EOSINOPHIL # (test code = EO#) 0.11 K/mm3 0.0-0.5 N BASOPHIL # (test code = BA#) 0.05 K/mm3 0.0-0.2 N NUCLEATED RBC # (test code = 0.00 K/mm3 0.0-0.1 N NRBC#) MANUAL DIFF REQUIRED (test code NO = MDIFF) [id number] 21:11:00 Test Item Value Reference Range Interpretation Comments SODIUM (test code = NA) 130 mmol/L 136-145 L BASIC METABOLIC [id number] 14:49:00 Test Item Value Reference Range Interpretation Comments SODIUM (test code = 129 mmol/L 136-145 L RESULT V ERIFIED BY NA) REPEAT ANALYSIS POTASSIUM (test code 2.5 mmol/L 3.5-5.1 LL Results called to = K) [id number] by 11ED [id number] 12/30/21 1447Cr itical results verifie d and read back by Kelly rse? Y FOR ALL ICU PATIENT EXCLUDI NG HOLD PLEASE CALL [phone] CHLORIDE (test code 100.0 mmol/L 98-107 N = CL) CARBON DIOXIDE (test 24.0 mmol/L 21-32 N code = CO2) ANION GAP (test code 7.5 10-20 L = GAP) GLUCOSE (test code = 100 mg/dL 74-106 N GLU) BLOOD UREA NITROGEN 6 mg/dL 7-18 L (test code = BUN) GLOMERULAR 57 mL/min See_Comment Estimated GFR b y FILTRATION RATE using Modifi ed MDRD (test code = GFR) formula. ronic kidney disease is defined as eith er kidney damageor GFR <60 mL/min/1.73 m2 for >3 months. [Automated mess age] The system [employer] generated this result transmitted ref erence range: >=60. Th e reference range was not used to int erpret this result as normal/abnormal . CREATININE (test 1.10 mg/dL 0.55-1.02 H Note craig ge in code = CREAT) reference rang e due to change in reagent. BUN/CREATININE RATIO 5.7 10-20 L (test code = BUN/CREA) CALCIUM (test code = 7.4 mg/dL 8.5-10.1 L CA) COMPREHENSIVE METABOLIC [id number] 08:42:00 Test Item Value Reference Range Interpretation Comments SODIUM (test code = 137 mmol/L 136-145 RESULT V ERIFIED BY NA) REPEAT ANALYSIS POTASSIUM (test code 2.2 mmol/L 3.5-5.1 LL Results called to = K) [id number] by [id number] 12/30/21 0839Critical re sults verified and re ad back by Nurse? JASMIN Gan BY REPEAT ANALYSIS FOR ALL ICU PATIENT EXCLUDI NG HOLD PLEASE CALL * [phone] CHLORIDE (test code = 107.0 mmol/L 98-107 N CL) CARBON DIOXIDE (test 23.0 mmol/L 21-32 N code = CO2) ANION GAP (test code 9.2 10-20 L = GAP) GLUCOSE (test code = 106 mg/dL 74-106 N GLU) BLOOD UREA NITROGEN 10 mg/dL 7-18 N (test code = BUN) GLOMERULAR FILTRATION 47 mL/min See_Comment Estima afshin GFR by RATE (test code = using Amy fied MDRD GFR) formula.Chronic kidney disease is defined as eith er kidney damageor GFR <60 mL/min/1.73 m2 for >3 months. [Automated mess age] The system [employer] generated this result transmit afshin reference range : >=60. The refer ence range was not u sed to interpret th is result as normal/abnormal . CREATININE (test code 1.30 mg/dL 0.55-1.02 H Note change in = CREAT) reference range due to change in reagent. BUN/CREATININE RATIO 7.8 10-20 L (test code = BUN/CREA) TOTAL PROTEIN (test 5.3 gram/dL 6.4-8.2 L code = PROT) ALBUMIN (test code = 1.6 g/dL 3.4-5.0 L ALB) GLOBULIN (test code = 3.7 gram/dL 2.7-4.2 N GLOB) ALBUMIN/GLOBULIN 0.4 0.75-1.50 L RATIO (test code = A/G) CALCIUM (test code = 7.2 mg/dL 8.5-10.1 L CA) BILIRUBIN TOTAL (test 2.70 mg/dL 0.0-1.0 H code = BILT) SGOT/AST (test code = 48 IUnit/L 15-37 H AST) SGPT/ALT (test code = 12 IUnit/L 12-78 N ALT) ALKALINE PHOSPHATASE 118 IUnit/L 45-117 H Note change in TOTAL (test code = reference range due ALKP) to change in reagent. [id number] 08:42:00 Test Item Value Reference Range Interpretation Comments PHOSPHORUS (test code = PHOS) 3.0 mg/dL 2.5-4.9 N [id number] 08:42:00 Test Item Value Reference Range Interpretation Comments MAGNESIUM (test code = MAG) 1.8 mg/dL 1.8-2.4 N CBC W/AUTO [id number] 03:29:00 Test Item Value Reference Range Interpretation Comments WHITE BLOOD CELL (test code = 10.1 K/mm3 4.5-12.5 N WBC) RED BLOOD CELL (test code = 3.54 mill/mm3 3.7-5.2 L RBC) HEMOGLOBIN (test code = HGB) 10.6 gram/dL 11.5-15.5 L HEMATOCRIT (test code = HCT) 31.6 % 36.0-46.0 L MEAN CELL VOLUME (test code = 89.3 fL 80-98 N MCV) MEAN CELL HGB (test code = MCH) 29.9 picogram 27.0-33.0 N MEAN CELL HGB CONCETRATION 33.5 gram/dL 33.0-36.0 N (test code = MCHC) RED CELL DISTRIBUTION WIDTH 16.3 % 11.6-16.2 H (test code = RDW) RED CELL DISTRIBUTION WIDTH SD 53.3 fL 37.0-51.0 H (test code = RDW-SD) PLATELET COUNT (test code = 122 K/mm3 150-450 L PLT) MEAN PLATELET VOLUME (test code 10.0 fL 6.7-11.0 N = MPV) NEUTROPHIL % (test code = NT%) 81.8 % 39.0-69.0 H IMMATURE GRANULOCYTE % (test 0.6 % 0.0-5.0 N code = IG%) LYMPHOCYTE % (test code = LY%) 9.5 % 25.0-55.0 L MONOCYTE % (test code = MO%) 7.5 % 0.0-10.0 N EOSINOPHIL % (test code = EO%) 0.4 % 0.0-5.0 N BASOPHIL % (test code = BA%) 0.2 % 0.0-1.0 N NUCLEATED RBC % (test code = 0.0 % 0-0 N NRBC%) NEUTROPHIL # (test code = NT#) 8.26 K/mm3 1.8-7.7 H IMMATURE GRANULOCYTE # (test 0.06 x10 3/uL 0-0.03 H code = IG#) LYMPHOCYTE # (test code = LY#) 0.96 K/mm3 1.0-5.0 L MONOCYTE # (test code = MO#) 0.76 K/mm3 0-0.8 N EOSINOPHIL # (test code = EO#) 0.04 K/mm3 0.0-0.5 N BASOPHIL # (test code = BA#) 0.02 K/mm3 0.0-0.2 N NUCLEATED RBC # (test code = 0.00 K/mm3 0.0-0.1 N NRBC#) LACTIC [id number] 21:59:00 Test Item Value Reference Range Interpretation Comments LACTIC ACID (test 4.2 mmol/L 0.4-1.9 HH Results ca lled to code = LACT) [id number] by [employer] [place] B.LT 12/29/212158Cr itical results verifie d and read back by Nu rse? Y FOR ALL ICU PATIENT EXCLUDING HOLD PLEASE CALL [phone] BASIC METABOLIC [id number] 21:59:00 Test Item Value Reference Range Interpretation Comments SODIUM (test code = 129 mmol/L 136-145 L NA) POTASSIUM (test code 2.3 mmol/L 3.5-5.1 LL Results called to = K) [id number] by V.LA B.LT 12/29/212158Cr itical results verifie d and read back by Nu rse? Y FOR ALL ICU PATIENT EXCLUDI NG HOLD PLEASE CALL [phone] CHLORIDE (test code = 96.0 mmol/L 98-107 L CL) CARBON DIOXIDE (test 24.0 mmol/L 21-32 N code = CO2) ANION GAP (test code 11.3 10-20 N = GAP) GLUCOSE (test code = 132 mg/dL 74-106 H GLU) BLOOD UREA NITROGEN 13 mg/dL 7-18 N (test code = BUN) GLOMERULAR FILTRATION 25 mL/min See_Comment Estima afshin GFR by RATE (test code = using Amy fied MDRD GFR) formula.Chronic kidney disease is defined as eith er kidney damageor GFR <60 mL/min/1.73 m2 for >3 months. [Automated mess age] The system [employer] generated this result transmitted ref erence range: >=60. Th e reference range was not used to int erpret this result as normal/abnormal . CREATININE (test code 2.20 mg/dL 0.55-1.02 H Note change in = CREAT) reference range due to change in reagent. BUN/CREATININE RATIO 5.9 10-20 L (test code = BUN/CREA) CALCIUM (test code = 6.9 mg/dL 8.5-10.1 L CA) HEPATIC FUNCTION [id number] 21:59:00 Test Item Value Reference Range Interpretation Comments TOTAL PROTEIN (test 5.2 gram/dL 6.4-8.2 L code = PROT) ALBUMIN (test code = 1.7 g/dL 3.4-5.0 L ALB) GLOBULIN (test code = 3.5 gram/dL 2.7-4.2 N GLOB) ALBUMIN/GLOBULIN RATIO 0.5 0.75-1.50 L (test code = A/G) BILIRUBIN TOTAL (test 3.10 mg/dL 0.0-1.0 H code = BILT) BILIRUBIN DIRECT (test 2.60 mg/dL 0.0-0.20 H code = BILD) SGOT/AST (test code = 57 IUnit/L 15-37 H AST) SGPT/ALT (test code = 13 IUnit/L 12-78 N ALT) ALKALINE PHOSPHATASE 119 IUnit/L 45-117 H Note change in TOTAL (test code = reference range due ALKP) to change in reagent. [id number] 21:50:00 Test Item Value Reference Range Interpretation Comments AMMONIA (test code = AMM) 55 umol/L 11-32 H - US ABDOMEN [id number] 18:33:00 [facility] ([facility]Name: PAMELA OBRIEN : 1985 Sex: F Name: PAMELA OBRIEN [facility] : 1985 Age/S: 36 / F [address] [facility] Unit #: [id number] Loc: [place] [address] Phys: Alexis Fitzpatrick DO Acct: [id number] Dis Date: Status: ADM IN PHONE #: [phone] Exam Date: 12/29/2021 1806 FAX #: [phone] Reason: CIRRHOSIS, EVALUATE FOR ASCITES, ORGANOMEGALY EXAMS: CPT CODE: [id number] US ABDOMEN COMPLETE 06542 REASON FOR EXAM: CIRRHOSIS, EVALUATE FOR ASCITES, ORGANOMEGALY EXAM ORDER DATE: 12/29/2021 4:10 PM Attending MJulio C: Alexis Fitzpatrick DO PROCEDURE: - US ABDOMEN COMPLETE Technique: Grayscale and color Doppler images of the abdomen. Comparison study: None FINDINGS: Aorta and IVC: Patent and grossly normal in caliber. Liver: Size: 16.5 cm craniocaudally Parenchyma and contour: Smooth contour. Increased echogenicity. Cysts and/or masses: None. Intrahepatic bile ducts: No intrahepatic biliary ductal dilation Common bile duct: 3.2 mm in diameter. No echogenic filling defects in visualized duct. Gallbladder: Stones/sludge: No intraluminal stones or sludge. Wall: 1.9 mm in thickness. No discontinuity. No polyps. No pericholecystic fluid. No hyperemia. Sonographic Whitmore's sign: Negative Portal vein: Portal vein caliber is within normal limits. Portal vein ispatent with hepatopetal flow. Pancreas: Incompletely visualized. However the visualized portions are grossly within normal limits. Right kidney: parenchyma echogenicity: Normal echogenicity size: 11 x 4.6 x 5.8 cm stones: none cysts/masses: none hydronephrosis: none PAGE 1 Signed Report (CONTINUED) Name: PAMELA OBRIEN [facility] : 1985Age/S: 36 / F [address] [facility] Unit #: [id number] Loc: [place] [address] Phys: Alexis Fitzpatrick DO Acct: [id number] Dis Date: Status: ADM IN PHONE#: [phone] Exam Date: 12/29/2021 180 FAX #: [phone] Reason:CIRRHOSIS, EVALUATE FOR ASCITES, ORGANOMEGALY EXAMS: CPT CODE: [id number] US ABDOMEN COMPLETE 01483 <Continued> Left kidney: parenchyma echogenicity: Normal echogenicity size:11 x 4.9 x 4.6 cm stones: none cysts/masses: none hydronephrosis: none Spleen: size: 9.2 cm cysts/masses: Parenchyma is sonographically unremarkable. Ascites/pleural effusions: None IMPRESSION: Hepatomegalywith hepatic steatosis. No ascites. Location: [facility] at 1833 Reported and signed by: London Madrid M.D. CC: Alexis Fitzpatrick DO Technologist: Celsa Cage Trnscb Date/Time: 12/29/2021 (1832) [id number] Orig Print D/T: S: 12/29/2021 (1835) Probe: PAGE 2Signed ReportPROTHROMBIN [id number] 18:00:00 Test Item Value Reference Range Interpretation Comments PROTHROMBIN TIME 21.1 seconds 9.0-14.0 H PATIENT (test code = PTP) INTERNATIONAL NORMAL 1.9 0.8-1.2 H The the rapeutic range RATIO (test code = for oral INR) anticoagulant t herapy formost indicat ions is an internati onal normalized rati o (INR)of between 2.0 and 3.0. The recommended therapeutic INR range for various cli nical situations is l isted below: Clinical Situat ion INR range Pulmonary embol ism treatment (2.0-3.0)Venou s thrombosis treatmentVenous thrombosis prophylaxis (hi gh risk surgery)Prevent ion of systemic emboli sm from: A cute myocardial infa rction Valvula r heart disease Atrial fibrilla tion Mechanical pros thetic heart valves (2.5-3.5) IS PATIENT ON ANTICOAGULANTS? NURINALYSIS [id number] 17:45:00 Test Item Value Reference Range Interpretation Comments UA COLOR (test code = YELLOW YELLOW COLU) UA APPEARANCE (test Cloudy CLEAR A IS THE S AMPLE code = APPU) FROM ER OR L&D? ER IF THE ANSWER I S NO,PLEASE DOCUMENT TWO RN SIGNATURES HERE - by [id number] 12/29/21 1744 UA GLUCOSE DIPSTICK NEGATIVE mg/dL NEGATIVE (test code = DGLUU) UA BILIRUBIN DIPSTICK NEGATIVE mg/dL NEGATIVE (test code = BILU) UA KETONE DIPSTICK NEGATIVE mg/dL NEGATIVE (test code = KETU) UA SPECIFIC GRAVITY 1.004 1.001-1.035 (test code = SGU) UA BLOOD DIPSTICK 0.06 mg/dL (1+) NEGATIVE A (test code = FLEX) mg/dL UA PH DIPSTICK (test 7.5 5.0-8.0 code = LANETTE) UA PROTEIN DIPSTICK 20 (Trace) mg/dL NEGATIVE A (test code = PROU) UA UROBILINIOGEN Normal mg/dL NEGATIVE DIPSTICK (test code = URO) UA NITRITE DIPSTICK POSITIVE NEGATIVE A (test code = JAMSHID) UA LEUKOCYTE ESTERASE 250 Codey/uL (2+) NEGATIVE A W REFLEX (test code = Codey/uL LEUUR) UA WBC (test code = 21-50 per HPF 0-5 A WBCU) UA RBC (test code = NONE SEEN #/HPF 0-5 RBCU) UA EPITHELIAL CELLS MOD per HPF FEW (test code = EPIU) UA BACTERIA (test MANY #/HPF NONE A code = BACU) UA HYALINE CAST (test >20 #/LPF 0-5 A code = HYALU) UA MUCUS (test code = MANY #/LPF FEW A MUCU) Urine Source? Clean CatchLACTIC [id number] 15:30:00 Test Item Value Reference Range Interpretation Comments LACTIC ACID (test 5.9 mmol/L 0.4-1.9 HH Results ca lled to code = LACT) [id number] by JAYSON PérezLT 12/29/21 1530Cr itical results verifie d and read back by Kelly brady? Y FOR ALL ICU PATIENT EXCLUDING HOLD PLEASE CALL [phone] [id number] 15:18:00 Test Item Value Reference Range Interpretation Comments MAGNESIUM (test code = MAG) 1.0 mg/dL 1.8-2.4 L BASIC METABOLIC [id number] 15:18:00 Test Item Value Reference Range Interpretation Comments SODIUM (test code = 121 mmol/L 136-145 LL Results called to DR THIBODEAUX) JAMEELBABIAKAby V.L AB.LT 12/29/21 1517Cr itical results verifie d and read back by Kelly rse? Y POTASSIUM (test code 1.9 mmol/L 3.5-5.1 LL Results called to = K) AGBABIAKAby V.L AB.LT 12/29/21 1517Cr itical results verifie d and read back by Kelly rse? Y FOR ALL ICU PATIENT EXCLUDI NG HOLD PLEASE CALL [phone] CHLORIDE (test code = 90.0 mmol/L 98-107 L CL) CARBON DIOXIDE (test 23.0 mmol/L 21-32 N code = CO2) ANION GAP (test code 9.9 10-20 L = GAP) GLUCOSE (test code = 107 mg/dL 74-106 H GLU) BLOOD UREA NITROGEN 9 mg/dL 7-18 N (test code = BUN) GLOMERULAR FILTRATION 23 mL/min See_Comment Estima afshin GFR by RATE (test code = using Amy fied MDRD GFR) formula.Chronic kidney disease is defined as eith er kidney damageor GFR <60 mL/min/1.73 m2 for >3 months. [Automated mess age] The system [employer] generated this result transmitted ref erence range: >=60. Th e reference range was not used to int erpret this result as normal/abnormal . CREATININE (test code 2.40 mg/dL 0.55-1.02 H Note change in = CREAT) reference range due to change in reagent. BUN/CREATININE RATIO 3.8 10-20 L (test code = BUN/CREA) CALCIUM (test code = 5.4 mg/dL 8.5-10.1 LL Results called to DR STEFANIE LATIF 12/29/21 1518Cr itical results verifie d and read back by Kelly rsnathan? Y CREATINE KINASE (CK)2021-12-29 15:18:00 Test Item Value Reference Range Interpretation Comments CREATINE KINASE (CK) (test code = 67 IUnit/L 26-208 N CK) [id number] 15:07:00 Test Item Value Reference Range Interpretation Comments PHOSPHORUS (test code = PHOS) 2.5 mg/dL 2.5-4.9 N CBC W/O [id number] 14:26:00 Test Item Value Reference Range Interpretation Comments WHITE BLOOD CELL (test code = 14.8 K/mm3 4.5-12.5 H WBC) RED BLOOD CELL (test code = 3.51 mill/mm3 3.7-5.2 L RBC) HEMOGLOBIN (test code = HGB) 10.5 gram/dL 11.5-15.5 L HEMATOCRIT (test code = HCT) 31.6 % 36.0-46.0 L MEAN CELL VOLUME (test code = 90.0 fL 80-98 N MCV) MEAN CELL HGB (test code = MCH) 29.9 picogram 27.0-33.0 N MEAN CELL HGB CONCETRATION 33.2 gram/dL 33.0-36.0 N (test code = MCHC) RED CELL DISTRIBUTION WIDTH 16.1 % 11.6-16.2 N (test code = RDW) PLATELET COUNT (test code = 138 K/mm3 150-450 L PLT) MEAN PLATELET VOLUME (test code 10.5 fL 6.7-11.0 N = MPV) - CT HEAD/BRAIN W/O [id number] 14:16:00 [facility])Name: PAMELA OBRIEN : 1985 Sex: F Name: PAMELA OBRIEN [facility] : 1985 Age/S: 36 / F [address] [facility] Unit #: [id number] Loc: [place] [address] Phys: Mana Biggs MD Acct: [id number] Dis Date: Status: REG ER PHONE #: [phone] Exam Date: 12/29/2021 1403 FAX #: [phone] Reason: weakness of bilat LE EXAMS: CPT CODE: [id number] CT HEAD/BRAIN W/O CONT 40436 HISTORY: weakness of bilat LE TECHNIQUE: Noncontrast 2.[address] of the head. Examination acquired within [address] dose reduction protocol: Automated exposure control adjustment of mA and/or kV according to patient size or iterative reconstruction dose optimization techniques were used. COMPARISON: None FINDINGS: No lacerations or contusions of the scalp or facial soft tissues. Calvarium and skull base are intact. No acute hemorrhage. No intracranial mass, mass eff ect, or midline shift. No effacement of the sulci or crespo-white matter interface. No cortical atrophy. No signs of white matter small-vessel disease. No hydrocephalus.. No extra-axial fluid collection. Visualized paranasal sinuses are clear. Mastoid air cells and middle ear cavities are clear. Orbital contents are unremarkable. IMPRESSION: Negative CT head. Location: [facility] at 1416 Reported and signed by: Rd Avitia MD CC: Mana Biggs MD Technologist:Annie Beck,RT(R),CT CTDI: DLP: Trnscb Date/Time: 12/29/2021 (1415) t.SDR.[email or web address] Orig Print D/T: S: 12/29/2021 (5230) PAGE 1 Signed Report- XR CHEST 1 [id number] 13:51:00[facility] 1985 Sex: F FAX: Mana Ritter [phone] [place]: B St: REG Name: PAMELA OBRIEN [facility] : 1985 Age/S: 36/F D[facility] Unit #: [id number] Loc: [place], [place] [address] Phys: Mana Biggs MD Acct: [id number] Dis Date: Status: REG ER PHONE #: [phone] Exam Date: 12/29/2021 1344 FAX #: [phone] Reason: weakness EXAMS: CPT CODE: [id number] XR CHEST 1V 78007 REASON FOR EXAM: weakness Exam Order Date: 12/29/2021 1:12 PM Ordering M.Manny: Mana Biggs MD PROCEDURE: - XR CHEST 1 V COMPARISON: None FINDINGS: The lungs are clear. There is no pleural effusion or pneumothorax. Pulmonary vascularity is within nor mal limits. Cardiomediastinal silhouette is normal in size for technique. The mediastinal contours are within normal limits. Levoscoliosis of the spine. The visualized upper abdomen is within normal limits. IMPRESSION: No acute cardiopulmonary process. Severe dextroscoliosis of the thoracic spine. Location: [facility] at 1351 Reported and signed by: Rd Avitia MD CC: Mana Biggs MDTechnologist: LEANNE FAGAN JR RT(R); STUDENT TECHNOLOGIST Trnscrd Date/Time/By: 12/29/2021 (8288) : By: [email or web address] Orig Print D/T: S: 12/29/2021 (4867) PAGE1 Signed ReportPOCT GLUCOSE (AUTOMATED)2021-11-03 12:29:37 Test Item Value Reference Range Interpretation Comments POCT GLU (test code = 7168314280) 189 mg/dL 70-110 H Lab Interpretation (test code = Abnormal 76842-4) [facility] METABOLIC PANEL (NA, K, CL, CO2, GLUCOSE, BUN, CREATININE, CA)2021-11-03 09:21:55 Test Item Value Reference Range Interpretation Comments NA (test code = 128 mmol/L 135-145 L 2619683184) K (test code = 3.1 mmol/L 3.5-5.0 L 3545749712) CL (test code = 99 mmol/L 98-108 7991353827) CO2 TOTAL (test code = 27 mmol/L 23-31 0092308131) AGAP (test code = 2-16 2500814577) BUN (test code = <2 7-23 L 8784620624) GLUCOSE (test code = 108 mg/dL 70-110 4900841120) CREATININE (test code = 0.33 mg/dL 0.50-1.04 L 4719619201) CALCIUM (test code = 7.4 mg/dL 8.6-10.6 L 3274290234) eGFR (test code = mL/min/1.73m2 2788250843) SONIA (test code = SONIA) Association of [...] tests). Lab Interpretation Abnormal (test code = 64840-7) [facility] 09:08:27 Test Item Value Reference Range Interpretation Comments MAGNESIUM (test code = 1565415102) 1.8 mg/dL 1.7-2.4 Lab Interpretation (test code = Normal 33774-3) [facility]2022-[facility]-20 09:08:27 Test Item Value Reference Range Interpretation Comments PHOSPHORUS (test code = 6198104010) 2.2 mg/dL 2.5-5.0 L Lab Interpretation (test code = Abnormal 32396-8) [facility] GLUCOSE (AUTOMATED)2021-11-03 01:27:44 Test Item Value Reference Range Interpretation Comments POCT GLU (test code = 4119658978) 178 mg/dL 70-110 H Lab Interpretation (test code = Abnormal 31009-7) [facility] GLUCOSE (AUTOMATED)2021-11-02 21:50:38 Test Item Value Reference Range Interpretation Comments POCT GLU (test code = 9218042381) 140 mg/dL 70-110 H Lab Interpretation (test code = Abnormal 80188-2) [facility] GLUCOSE (AUTOMATED)2021-11-02 17:41:31 Test Item Value Reference Range Interpretation Comments POCT GLU (test code = 0183529443) 204 mg/dL 70-110 H Lab Interpretation (test code = Abnormal 56402-2) [facility] GLUCOSE (AUTOMATED)2021-11-02 14:10:52 Test Item Value Reference Range Interpretation Comments POCT GLU (test code = 5658092256) 227 mg/dL 70-110 H Lab Interpretation (test code = Abnormal 99024-1) [facility] (NA, K, CL, CO2, GLUCOSE, BUN, CREATININE, CA)2021-11-02 10:06:37 Test Item Value Reference Range Interpretation Comments NA (test code = 129 mmol/L 135-145 L 0729059230) K (test code = 3.3 mmol/L 3.5-5.0 L 7385517431) CL (test code = 99 mmol/L 98-108 6016188465) CO2 TOTAL (test code = 25 mmol/L 23-31 6932396606) AGAP (test code = 2-16 3237354191) BUN (test code = 2 mg/dL 7-23 L 2380032458) GLUCOSE (test code = 61 mg/dL 70-110 L 1392003680) CREATININE (test code = 0.35 mg/dL 0.50-1.04 L 3053478860) CALCIUM (test code = 7.4 mg/dL 8.6-10.6 L 7148209496) eGFR (test code = mL/min/1.73m2 5627364202) SONIA (test code = SONIA) Association of [...] tests). Lab Interpretation Abnormal (test code = 34676-5) [facility] 10:06:37 Test Item Value Reference Range Interpretation Comments MAGNESIUM (test code = 8393107156) 1.9 mg/dL 1.7-2.4 Lab Interpretation (test code = Normal 79317-7) [facility] 10:06:37 Test Item Value Reference Range Interpretation Comments PHOSPHORUS (test code = 3805882962) 2.0 mg/dL 2.5-5.0 L Lab Interpretation (test code = Abnormal 20357-8) [facility] [id number] 09:36:12 Test Item Value Reference Range Interpretation Comments [...] as normal/abnormal . HGB (test code = 8.3 g/dL 11.6-15.0 L 718-7) HCT (test code = 26.1 % 35.7-45.2 L 4544-3) MCV (test code = 95.3 fL 80.6-95.5 787-2) MCH (test code = 30.3 pg 25.9-32.8 785-6) MCHC (test code = 31.8 g/dL 31.6-35.1 786-4) RDW-SD (test code = 91.6 fL 39.0-49.9 H 80117-4) RDW-CV (test code = 28.8 % 12.0-15.5 H 788-0) PLT (test code = See_Comment L [Automated 777-3) message] The sy stem which generated this result transmitted reference range : 166 - 358 10*3/ ?L. The reference r yvonne was not used to interpret this result as normal/abnormal . MPV (test code = 10.3 fL 9.5-12.9 51156-2) NRBC/100 WBC (test See_Comment [Automat ed code = 9737230652) message] The system which generated this result transmitted reference range : 0.0 - 10.0 /100 WBCs. The refer ence range was not u sed to interpret th is result as normal/abnormal . NRBC x10^3 (test code See_Comment [Auto mated = 8904370744) message] The s ystem which generated this result transmitted reference range : 10*3/?L. The reference range was not used to interpret this result as normal/abnormal . GRAN MAT (NEUT) % 69.4 % (test code = 770-8) IMM GRAN % (test code 1.90 % = 7976598536) LYMPH % (test code = 16.3 % 736-9) MONO % (test code = 10.7 % 5905-5) EOS % (test code = 1.0 % 713-8) BASO % (test code = 0.7 % 706-2) GRAN MAT x10^3(ANC) 4.71 10*3/uL 1.88-7.09 (test code = 9375342115) IMM GRAN x10^3 (test 0.13 10*3/uL 0.00-0.06 H code = 4705942958) LYMPH x10^3 (test code 1.11 10*3/uL 1.32-3.29 L = 731-0) MONO x10^3 (test code 0.73 10*3/uL 0.33-0.92 = 742-7) EOS x10^3 (test code = 0.07 10*3/uL 0.03-0.39 711-2) BASO x10^3 (test code 0.05 10*3/uL 0.01-0.07 = 704-7) Lab Interpretation Abnormal (test code = 51516-4) [facility] [id number] 21:25:10 ABSOLUTE LYMPHOCYTOPENIA. NORMOCYTIC, NORMOCHROMIC ANEMIA. THROMBOCYTOPENIA. [facility]ervilleLactic Acid Whole [id number] 14:11:33 Test Item Value Reference Range Interpretation Comments LACTIC ACID (test code = 1.04 mmol/L 0.50-2.20 3288574948) Lab Interpretation (test code = Normal 43382-2) [facility] METABOLIC PANEL (NA, K, CL, CO2, GLUCOSE, BUN, CREATININE, CA)2021-11-01 12:17:25 Test Item Value Reference Range Interpretation Comments NA (test code = 127 mmol/L 135-145 L 6108421086) K (test code = 3.7 mmol/L 3.5-5.0 Slight 1933593908) hemolysis CL (test code = 98 mmol/L 98-108 2581853793) CO2 TOTAL (test code 27 mmol/L 23-31 = 7174507776) AGAP (test code = 2-16 1594638056) BUN (test code = 3 mg/dL 7-23 L Slight 1703046656) hemolysis GLUCOSE (test code = 96 mg/dL 70-110 5898538552) CREATININE (test code 0.33 mg/dL 0.50-1.04 L = 5827774199) CALCIUM (test code = 7.0 mg/dL 8.6-10.6 L 2217081851) eGFR (test code = mL/min/1.73m2 2174411422) SONIA (test code = SONIA) Association of Glomerular Filtration Rate (GFR) and Staging of Kidney Disease* + -----+ --------+ +| GFR (mL/min/1.73 m2) ?| With Kidney Damage ?| ?Without Kidney Damage+ +------- +---- --+| ?>90 ?| ?Stage one ?| ? Normal ?+ ------+ ---------+--------- +| ?60-89 ?| ?Stage two ?| ? Decreased GFR ? + -----+ --------+ +| ?30-59 ?| ?Stage three ?| ? Stage three ? + -----+ --------+ +| ?15-29 ?| ?Stage four ? | ? Stage four ?+ ------+ ---------+--------- +| ?<15 (or dialysis) ? ?| ?Stage five ? | ? Stage five ?+ ------+ ---------+--------- + *Each stage assumes the associated GFR [...] tests). Lab Interpretation Abnormal (test code = 86344-3) [facility]HEPATIC FUNCTION PANEL (91362) (ALB,T.PRO,BILI T,BU/BC,ALT,AST,ALK PHOS)2021-11-01 12:17:25 Test Item Value Reference Range Interpretation Comments TOTAL BILI (test code = 16.5 mg/dL 0.1-1.1 H 0688284727) BILI UNCON (test code = 2.6 mg/dL 0.1-1.1 H 2386767438) BILI CONJ (test code = 3075981942) 11.7 mg/dL 0.0-0.3 H T PROTEIN (test code = 3700099640) 6.0 g/dL 6.3-8.2 L ALBUMIN (test code = 9320209919) 2.5 g/dL 3.5-5.0 L ALK PHOS (test code = 3727640558) 150 U/L 34-122 H ALTv (test code = 1742-6) 36 U/L 5-35 H AST(SGOT) (test code = 6857507910) 155 U/L 13-40 H Lab Interpretation (test code = Abnormal 49707-4) [facility]ervillePROTHROMBIN TIME / [id number] 11:58:21 Test Item Value Reference Range Interpretation Comments PROTIME PATIENT (test See_Comment H [Auto mated message] code = 5964-2) The system [employer] generated this result transmitted ref erence range: 10.1 - 1 2.6 Seconds. The reference range was not used to int erpret this result as normal/abnormal . INR (test code = 6301-6) Nor mal INR <1.1; Warfarin Therap eutic range 2.0 to 3. 0 or 2.5 to 3.5, dep ending upon the indica tions. Lab Interpretation (test Abnormal code = 46002-7) [facility]ervilleHAPTOGLOBIN, [id number] 14:40:08 Test Item Value Reference Range Interpretation Comments HAPTOGLOB (test code = 0616836888) 22 mg/dL 16-200 Lab Interpretation (test code = Normal 57996-9) [facility]ervilleOSMOLALITY, SERUM OR [id number] 10:51:20 Test Item Value Reference Range Interpretation Comments OSMOLALITY (test code = See_Comment L [Au tomated message] 8892-2) The system whic h generated this result transmitted ref erence range: 278 - 30 5 mOsm/kg. The reference range was not used to int erpret this result as normal/abnormal . Lab Interpretation (test Abnormal code = 15374-5) [facility]ervilleRETICULOCYTES [id number] 10:46:03 Test Item Value Reference Range Interpretation Comments RETIC Count Automated 5.59 % 0.51-1.90 H (test code = 3429006359) RETIC Absolute Count See_Comment H [Autom ated message] (test code = 1262368879) The system which generated this result transmitted ref erence range: 0.0230 - 0.0950 10*6/?L. The reference range was not used to int erpret this result as normal/abnormal . IRF % (test code = 32.90 % 2.10-12.60 H 1598209449) RETIC-HE (test code = 39.7 pg 28.1-35.8 H 9147183074) Lab Interpretation (test Abnormal code = 05806-1) [facility]ervillePrepare Packed RBC (in units), 1 Units 2021-10-31 07:10:15 Test Item Value Reference Range Interpretation Comments Cross Match Result Compatible (test code = 4409) ISBT Blood Type Code (test code = 995102) Unit Blood Type (test A Pos code = 4410) Unit Number (test [id number] code = 4411) Blood Expiration Date & Time (test code = 334056) Status Information Issued (test code = 4412) Product Red Blood Cells Identification (test code = 4413) Product Code (test [id number] Performed at [facility] code = 4414) Laboratory Services - [facility] Blood [address] [place] [address]Cbun Free: [phone] A No. [id number] [facility] with Tpnfdnqyqsnl3877-76-46 07:04:47 Test Item Value Reference Range Interpretation Comments WBC (test code = See_Comment [Automated 9290-2) message] The sy stem which generated this [...] as normal/abnormal . HGB (test code = 6.4 g/dL 11.6-15.0 L 718-7) HCT (test code = 20.0 % 35.7-45.2 L 4544-3) MCV (test code = 90.1 fL 80.6-95.5 787-2) MCH (test code = 28.8 pg 25.9-32.8 785-6) MCHC (test code = 32.0 g/dL 31.6-35.1 786-4) RDW-SD (test code = 95.2 fL 39.0-49.9 H 48299-1) RDW-CV (test code = 30.0 % 12.0-15.5 H 788-0) PLT (test code = See_Comment L [Automated 777-3) message] The sy stem which generated this result transmitted reference range : 166 - 358 10*3/ ?L. The reference r yvonne was not used to interpret this result as normal/abnormal . MPV (test code = 10.1 fL 9.5-12.9 93203-2) IPF % (test code = 9.5 % 1.3-7.7 H Platelet count 0644548767) measured by fluorescence method. NRBC/100 WBC (test See_Comment [Automat ed code = 8770121364) message] The system which generated this result transmitted reference range : 0.0 - 10.0 /100 WBCs. The refer ence range was not u sed to interpret th is result as normal/abnormal . NRBC x10^3 (test code See_Comment [Auto mated = 9754053248) message] The s ystem which generated this result transmitted reference range : 10*3/?L. The reference range was not used to interpret this result as normal/abnormal . GRAN MAT (NEUT) % 77.2 % (test code = 770-8) IMM GRAN % (test code 1.00 % = 4614918245) LYMPH % (test code = 11.9 % 736-9) MONO % (test code = 8.5 % 5905-5) EOS % (test code = 1.1 % 713-8) BASO % (test code = 0.3 % 706-2) GRAN MAT x10^3(ANC) 4.81 10*3/uL 1.88-7.09 (test code = 3280027448) IMM GRAN x10^3 (test 0.06 10*3/uL 0.00-0.06 code = 6719674332) LYMPH x10^3 (test code 0.74 10*3/uL 1.32-3.29 L = 731-0) MONO x10^3 (test code 0.53 10*3/uL 0.33-0.92 = 742-7) EOS x10^3 (test code = 0.07 10*3/uL 0.03-0.39 711-2) BASO x10^3 (test code <0.03 0.01-0.07 = 704-7) BASO STIPPLING (test Present A code = 703-9) TARGET CELLS (test 2+ See_Comment A [Automat ed code = 60672-1) message] The system which generated this result transmitted reference range : (none). The reference range was not used to interpret this result as normal/abnormal . GIANT PLATELETS (test Present See_Comment A [Auto mated code = 5908-9) message] The system which generated this result transmitted reference range : (none). The reference range was not used to interpret this result as normal/abnormal . Lab Interpretation Abnormal (test code = 51764-7) [facility] Metabolic Panel (NA, K, CL, CO2, GLUCOSE, BUN, CREATININE, CA)2021-10-31 06:56:25 Test Item Value Reference Range Interpretation Comments NA (test code = 125 mmol/L 135-145 L 3780578103) K (test code = 3.6 mmol/L 3.5-5.0 Slight 5432849417) hemolysis CL (test code = 92 mmol/L 98-108 L 3738809616) CO2 TOTAL (test code 27 mmol/L 23-31 = 2916715219) AGAP (test code = 2-16 8638249329) BUN (test code = 6 mg/dL 7-23 L Slight 8440737333) hemolysis GLUCOSE (test code = 122 mg/dL 70-110 H 7191987183) CREATININE (test code 0.40 mg/dL 0.50-1.04 L = 4495038140) CALCIUM (test code = 7.3 mg/dL 8.6-10.6 L 7831704482) eGFR (test code = mL/min/1.73m2 4837850485) SONIA (test code = SONIA) Association of Glomerular Filtration Rate (GFR) and Staging of Kidney Disease* + -----+ --------+ +| GFR (mL/min/1.73 m2) ?| With Kidney Damage ?| ?Without Kidney Damage+ +------- +---- --+| ?>90 ?| ?Stage one ?| ? Normal ?+ ------+ ---------+--------- +| ?60-89 ?| ?Stage two ?| ? Decreased GFR ? + -----+ --------+ +| ?30-59 ?| ?Stage three ?| ? Stage three ? + -----+ --------+ +| ?15-29 ?| ?Stage four ? | ? Stage four ?+ ------+ ---------+--------- +| ?<15 (or dialysis) ? ?| ?Stage five ? | ? Stage five ?+ ------+ ---------+--------- + *Each stage assumes the associated GFR [...] tests). Lab Interpretation Abnormal (test code = 39390-9) [facility]ervillePhosphorus [id number] 06:56:25 Test Item Value Reference Range Interpretation Comments PHOSPHORUS (test code = 1651815874) 1.3 mg/dL 2.5-5.0 L Lab Interpretation (test code = Abnormal 92908-6) [facility]ervilleMagnesium [id number] 06:56:25 Test Item Value Reference Range Interpretation Comments MAGNESIUM (test code = 8798881667) 2.3 mg/dL 1.7-2.4 Lab Interpretation (test code = Normal 59823-0) [facility]ugervilleProthrombin Time / [id number] 06:36:43 Test Item Value Reference Range Interpretation Comments PROTIME PATIENT (test See_Comment H [Auto mated message] code = 5964-2) The system [employer] generated this result transmitted ref erence range: 10.1 - 1 2.6 Seconds. The reference range was not used to int erpret this result as normal/abnormal . INR (test code = 6301-6) Nor mal INR <1.1; Warfarin Therap eutic range 2.0 to 3. 0 or 2.5 to 3.5, dep ending upon the indica tions. Lab Interpretation (test Abnormal code = 44633-4) [facility]ugervilleETHANOL2022-04-17 03:54:13 Test Item Value Reference Range Interpretation Comments ALCOHOL (test code = <10 mg/dL 2779437531) SONIA (test code = Toxic Greater than or SONIA) equal to 80 mg/dL. NOTE: Whole blood values are approximately 10% to 15% lower than serum and plasma. [facility] P[facility]ugervilleABORH Confirmation (Lab Only)2021-10-31 02:12:40 Test Item Value Reference Range Interpretation Comments ABO & RH (test code A Positive Performe d at [facility] = 20) Laboratory Serv [facility] Blood Bank3 [address] [facility] [address]Plgp Free: [phone] A No. [id number] [facility]ugervilleHEPATIC FUNCTION PANEL (51060) (ALB,T.PRO,BILI T,BU/BC,ALT,AST,ALK PHOS)2021-10-31 02:10:51 Test Item Value Reference Range Interpretation Comments TOTAL BILI (test code = 17.2 mg/dL 0.1-1.1 H 0466937527) BILI UNCON (test code = 2.5 mg/dL 0.1-1.1 H 9333323371) BILI CONJ (test code = 6030430454) 11.9 mg/dL 0.0-0.3 H T PROTEIN (test code = 8821487745) 6.6 g/dL 6.3-8.2 ALBUMIN (test code = 8977224240) 2.9 g/dL 3.5-5.0 L ALK PHOS (test code = 0576420034) 198 U/L 34-122 H ALTv (test code = 1742-6) 42 U/L 5-35 H AST(SGOT) (test code = 7246594919) 226 U/L 13-40 H Lab Interpretation (test code = Abnormal 01966-1) [facility] METABOLIC PANEL (NA, K, CL, CO2, GLUCOSE, BUN, CREATININE, CA)2021-10-31 02:10:50 Test Item Value Reference Range Interpretation Comments NA (test code = 127 mmol/L 135-145 L 2151176954) K (test code = 3.6 mmol/L 3.5-5.0 3152024686) CL (test code = 93 mmol/L 98-108 L 5445649658) CO2 TOTAL (test code = 26 mmol/L 23-31 1578259446) AGAP (test code = 2-16 1667999037) BUN (test code = 6 mg/dL 7-23 L 1044814229) GLUCOSE (test code = 101 mg/dL 70-110 5163349123) CREATININE (test code = 0.36 mg/dL 0.50-1.04 L 9333273303) CALCIUM (test code = 7.5 mg/dL 8.6-10.6 L 9059773032) eGFR (test code = mL/min/1.73m2 1783032631) SONIA (test code = SONIA) Association of [...] tests). Lab Interpretation Abnormal (test code = 74067-3) [facility]ugervilleType and Screen - ONCE [id number] 02:10:36 Test Item Value Reference Range Interpretation Comments ABO & RH (test code A POSITIVE Performe d at [facility] = 20) Laboratory Serv [facility] Blood Bank[address] [place] [address] s [address]Bkiq Free: [phone] A No. [id number] IAT (test code = Negative Performed a t [facility] 1185) [facility] Blood [facility] [place] [address] s [address]Zhkd Free: [phone] A No. [id number] [facility] PflugervilleLactic Acid Whole [id number] 01:51:35 Test Item Value Reference Range Interpretation Comments LACTIC ACID (test code = 2.39 mmol/L 0.50-2.20 H 9692727644) Lab Interpretation (test code = Abnormal 14994-3) [facility] WITHOUT [id number] 13:04:23 Test Item Value Reference Range Interpretation Comments WBC (test code = See_Comment [Automated message] 6690-2) The system [employer] generated this result transmitted ref erence range: 4.30 - 1 1.10 10*3/?L. The reference range was not used to int erpret this result as normal/abnormal . RBC (test code = 789-8) See_Comment L [Au tomated message] The system [employer] generated this result transmitted ref erence range: 3.93 - 5 .25 10*6/?L. The reference range was not used to int erpret this result as normal/abnormal . HGB (test code = 718-7) 7.1 g/dL 11.6-15.0 L HCT (test code = 22.5 % 35.7-45.2 L 4544-3) MCH (test code = 785-6) 28.4 pg 25.9-32.8 MCV (test code = 787-2) 90.0 fL 80.6-95.5 MCHC (test code = 31.6 g/dL 31.6-35.1 786-4) PLT (test code = 777-3) See_Comment L [Au tomated message] The system [employer] generated this result transmitted ref erence range: 166 - 35 8 10*3/?L. The reference range was not used to int erpret this result as normal/abnormal . MPV (test code = 10.2 fL 9.5-12.9 67245-1) RDW-CV (test code = 29.1 % 12.0-15.5 H 788-0) RDW-SD (test code = 93.1 fL 39.0-49.9 H 22414-7) NRBC x10^3 (test code = <0.01 See_Comment [Au tomated message] 3949111447) The system [employer] generated this result transmitted ref erence range: 10*3/?L. The reference range was not used to int erpret this result as normal/abnormal . NRBC/100 WBC (test code See_Comment [Au tomated message] = 7844767823) The system [facility] generated this result transmitted ref erence range: 0.0 - 10 .0 /100 WBCs. The reference range was not used to int erpret this result as normal/abnormal . IPF % (test code = 9.3 % 1.3-7.7 H Platelet count 5110231773) measured by fluorescence me thod. Lab Interpretation Abnormal (test code = 68532-7) [facility] WITH [id number] 09:34:31 Test Item Value Reference Range Interpretation Comments [...] as normal/abnormal . HGB (test code = 6.8 g/dL 11.6-15.0 L 718-7) HCT (test code = 20.6 % 35.7-45.2 L 4544-3) MCV (test code = 86.6 fL 80.6-95.5 787-2) MCH (test code = 28.6 pg 25.9-32.8 785-6) MCHC (test code = 33.0 g/dL 31.6-35.1 786-4) RDW-SD (test code = 86.9 fL 39.0-49.9 H 87146-2) RDW-CV (test code = 28.4 % 12.0-15.5 H 788-0) PLT (test code = See_Comment L [Automated 777-3) message] The sy stem which generated this result transmitted reference range : 166 - 358 10*3/ ?L. The reference r yvonne was not used to interpret this result as normal/abnormal . MPV (test code = 10.2 fL 9.5-12.9 78417-7) IPF % (test code = 6.1 % 1.3-7.7 Platelet count 2705220448) measured by fluorescence method. NRBC/100 WBC (test See_Comment [Automat ed code = 7112304039) message] The system which generated this result transmitted reference range : 0.0 - 10.0 /100 WBCs. The refer ence range was not u sed to interpret th is result as normal/abnormal . NRBC x10^3 (test code See_Comment [Auto mated = 3898946936) message] The s ystem which generated this result transmitted reference range : 10*3/?L. The reference range was not used to interpret this result as normal/abnormal . GRAN MAT (NEUT) % 80.9 % (test code = 770-8) IMM GRAN % (test code 1.00 % = 6178342616) LYMPH % (test code = 9.1 % 736-9) MONO % (test code = 7.8 % 5905-5) EOS % (test code = 0.8 % 713-8) BASO % (test code = 0.4 % 706-2) GRAN MAT x10^3(ANC) 4.07 10*3/uL 1.88-7.09 (test code = 7591591605) IMM GRAN x10^3 (test 0.05 10*3/uL 0.00-0.06 code = 6818550480) LYMPH x10^3 (test code 0.46 10*3/uL 1.32-3.29 L = 731-0) MONO x10^3 (test code 0.39 10*3/uL 0.33-0.92 = 742-7) EOS x10^3 (test code = 0.04 10*3/uL 0.03-0.39 711-2) BASO x10^3 (test code <0.03 0.01-0.07 = 704-7) TARGET CELLS (test 2+ See_Comment A [Automat ed code = 75795-3) message] The system which generated this result transmitted reference range : (none). The reference range was not used to interpret this result as normal/abnormal . Lab Interpretation Abnormal (test code = 46407-5) [facility] METABOLIC PANEL (NA, K, CL, CO2, GLUCOSE, BUN, CREATININE, CA)2021-10-30 09:07:58 Test Item Value Reference Range Interpretation Comments NA (test code = 123 mmol/L 135-145 L 3819194554) K (test code = 3.6 mmol/L 3.5-5.0 2329168623) CL (test code = 88 mmol/L 98-108 L 6312267793) CO2 TOTAL (test code = 29 mmol/L 23-31 9988262850) AGAP (test code = 2-16 2720644157) BUN (test code = 9 mg/dL 7-23 2751639346) GLUCOSE (test code = 84 mg/dL 70-110 6771952430) CREATININE (test code = 0.41 mg/dL 0.50-1.04 L 6169328664) CALCIUM (test code = 7.2 mg/dL 8.6-10.6 L 7862627823) eGFR (test code = mL/min/1.73m2 1786146000) SONIA (test code = SONIA) Association of [...] tests). Lab Interpretation Abnormal (test code = 07902-0) [facility]ervilleMAGNESIUM2022-04-16 09:07:58 Test Item Value Reference Range Interpretation Comments MAGNESIUM (test code = 5240405755) 2.5 mg/dL 1.7-2.4 H Lab Interpretation (test code = Abnormal 41780-3) [facility]ervilleHEPATIC FUNCTION PANEL (75507) (ALB,T.PRO,BILI T,BU/BC,ALT,AST,ALK PHOS)2021-10-30 09:07:58 Test Item Value Reference Range Interpretation Comments TOTAL BILI (test code = 16.0 mg/dL 0.1-1.1 H 9268133938) BILI UNCON (test code = 2.5 mg/dL 0.1-1.1 H 1808783923) BILI CONJ (test code = 6952713054) 11.0 mg/dL 0.0-0.3 H T PROTEIN (test code = 2388872969) 6.3 g/dL 6.3-8.2 ALBUMIN (test code = 3880893936) 2.8 g/dL 3.5-5.0 L ALK PHOS (test code = 6397630115) 189 U/L 34-122 H ALTv (test code = 1742-6) 41 U/L 5-35 H AST(SGOT) (test code = 7811757358) 253 U/L 13-40 H Lab Interpretation (test code = Abnormal 51452-1) [facility]ervillePHOSPHORUS2022-04-16 09:07:58 Test Item Value Reference Range Interpretation Comments PHOSPHORUS (test code = 7777839562) 2.3 mg/dL 2.5-5.0 L Lab Interpretation (test code = Abnormal 46104-5) [facility]ervilleHEPATITIS B CORE ANTIBODY [id number] 08:53:38 Test Item Value Reference Range Interpretation Comments HBCM Negative Semi-Quantitative (test code = 53541-3) SONIA (test code = Biotin has been reported SONIA) to cause a negative bias, interpret results relative to patient's use of biotin. [facility]ugervilleFOLATE2022-04-16 04:53:32 Test Item Value Reference Range Interpretation Comments FOLATE SER (test code = 2706188154) 2.7 ng/mL 3.0-20.0 L Lab Interpretation (test code = Abnormal 58063-1) [facility]ervilleVITAMIN B12, [id number] 04:53:32 Test Item Value Reference Range Interpretation Comments VIT B12 (test code = 941 pg/mL 240-930 H 8184961579) SONIA (test code = SONIA) Biotin has been reported to cause a positive bias, interpret results relative to patient's use of biotin. Lab Interpretation (test Abnormal code = 60698-9) [facility]ervilleBAUN[facility] (NA, K, CL, CO2, GLUCOSE, BUN, CREATININE, CA)2021-10-30 04:03:42 Test Item Value Reference Range Interpretation Comments NA (test code = 121 mmol/L 135-145 L 7166427067) K (test code = 4.0 mmol/L 3.5-5.0 6971398503) CL (test code = 87 mmol/L 98-108 L 4209864968) CO2 TOTAL (test code = 29 mmol/L 23-31 2614741287) AGAP (test code = 2-16 2214878684) BUN (test code = 9 mg/dL 7-23 7744810037) GLUCOSE (test code = 80 mg/dL 70-110 9378451339) CREATININE (test code = 0.46 mg/dL 0.50-1.04 L 9035776017) CALCIUM (test code = 7.1 mg/dL 8.6-10.6 L 8479906435) eGFR (test code = mL/min/1.73m2 1383420475) SONIA (test code = SONIA) Association of [...] tests). Lab Interpretation Abnormal (test code = 46332-8) [facility]ervilleMAGNESIUM2022-04-16 03:59:05 Test Item Value Reference Range Interpretation Comments MAGNESIUM (test code = 9412532553) 2.7 mg/dL 1.7-2.4 H Lab Interpretation (test code = Abnormal 07986-8) [facility]ervilleLactic Acid Whole [id number] 03:15:25 Test Item Value Reference Range Interpretation Comments LACTIC ACID (test code = 2.34 mmol/L 0.50-2.20 H [id number]) Lab Interpretation (test code = Abnormal 30117-8) [facility] (IGG AND IGM)2021-10-30 00:26:38 Test Item Value Reference Range Interpretation Comments HAV Total (test code Positive = [id number]) HAVT Semi-Quantitative (test code = 5545853647) SONIA (test code = SONIA) Indicates past or present infection with HAV or exposure to HAV due to vaccination. [facility] [id number] 23:51:37 Test Item Value Reference Range Interpretation Comments HBsAg Semi-Quantitative (test code = Negative Negative 5195-3) [facility] B SURFACE [id number] 19:39:03 Test Item Value Reference Range Interpretation Comments HBsAB (test code = Negative [id number]) HBsAb mIU/mL Semi-Quantitative (test code = 2322850592) SONIA (test code = Interpretation: SONIA) ?Hepatitis B Surface Antibody ? Negative - Patient is considered to be not immune to infection with HBV. ? ? Positive - Anti-HBs detected at greater than or equal to 12 mIU/mL. ?Patient is considered to be immune to infection with HBV. ? [facility]ervilleHCV [id number] 19:39:03 Test Item Value Reference Range Interpretation Comments HCV Ab (test code = 58810-8) Negative HCV Semi-Quantitative (test code = 73463-2) [facility]FERRITIN [id number] 19:25:56 Test Item Value Reference Range Interpretation Comments FERRITIN (test code = 269.0 ng/mL 6.0-137.0 H 8443342051) SONIA (test code = SONIA) Biotin has been reported to cause a negative bias, interpret results relative to patient's use of biotin. Lab Interpretation (test Abnormal code = 79234-7) [facility]IRON [id number] 19:03:49 Test Item Value Reference Range Interpretation Comments IRON (test code = 7246276639) 132 ug/dL 50-160 TIBC (test code = 1891037008) 196 ug/dL 250-410 L % FE SAT (test code = 6963510171) 67 % 20-50 H Lab Interpretation (test code = Abnormal 55677-0) [facility]ervilleGLYCOSYLATED HEMOGLOBIN (A1C)2021-10-29 15:07:09 Test Item Value Reference Range Interpretation Comments HGB A1C (test code = 4.8 % 4.0-5.7 4548-4) SONIA (test code = SONIA) Reference RangesNormal: <5.7%Prediabetes: 5.7 - 6.4%Diabetes: > 6.5% Lab Interpretation (test Normal code = 04020-6) [facility]POCT GLUCOSE (AUTOMATED)2021-10-29 13:29:07 Test Item Value Reference Range Interpretation Comments POCT GLU (test code = 4771467509) 107 mg/dL 70-110 Lab Interpretation (test code = Normal 51494-2) [facility]LIPASE2022-04-15 11:26:20 Test Item Value Reference Range Interpretation Comments LIPASE (test code = 8329843263) 329 U/L 0-220 H Lab Interpretation (test code = Abnormal 16842-7) [facility]ETHANOL2022-04-15 11:26:20 Test Item Value Reference Range Interpretation Comments ALCOHOL (test code = 164 mg/dL 9129782980) SONIA (test code = Toxic Greater than or SONIA) equal to 80 mg/dL. NOTE: Whole blood values are approximately 10% to 15% lower than serum and plasma. [facility]ervilleLactic Acid Whole [id number] 10:57:10 Test Item Value Reference Range Interpretation Comments LACTIC ACID (test code = 3.96 mmol/L 0.50-2.20 H 0794493468) Lab Interpretation (test code = Abnormal 84589-6) [facility]PREGNANCY TEST, [id number] 10:22:50 Test Item Value Reference Range Interpretation Comments PREG SERUM (test code Negative = 2397346540) SONIA (test code = SONIA) Less than 10 IU/L. ?If low titer or ectopic is suspected, resubmit specimen in 48-72 hours. [facility]HIV 1/2 AG-AB WITH [id number] 08:22:29 Test Item Value Reference Range Interpretation Comments HIV Negative Negative Semi-quantitative (test code = 75697-4) SONIA (test code = Non-reactive for HIV-1 SONIA) antigen and HIV-1/HIV-2 antibodies. ?No laboratory evidence of HIV infection. ?Repeat in 2-4 weeks if acute HIV infection is suspected. [facility] Metabolic Panel (NA, K, CL, CO2, Glucose, BUN, Creatinine, CA)2021-10-29 06:58:24 Test Item Value Reference Range Interpretation Comments NA (test code = 122 mmol/L 135-145 L 9641479788) K (test code = 3.1 mmol/L 3.5-5.0 L 5573402281) CL (test code = 85 mmol/L 98-108 L 9887326711) CO2 TOTAL (test code = 25 mmol/L 23-31 3734622015) AGAP (test code = 2-16 4086825304) BUN (test code = 6 mg/dL 7-23 L 8723436999) GLUCOSE (test code = 110 mg/dL 70-110 1551729464) CREATININE (test code = 0.49 mg/dL 0.50-1.04 L 2232153610) CALCIUM (test code = 7.1 mg/dL 8.6-10.6 L 2419648512) eGFR (test code = mL/min/1.73m2 2976385150) SONIA (test code = SONIA) Association of [...] tests). Lab Interpretation Abnormal (test code = 73450-3) [facility]ervilleMagnesium Cmeer3923-14-64 06:58:24 Test Item Value Reference Range Interpretation Comments MAGNESIUM (test code = 8881219119) 1.5 mg/dL 1.7-2.4 L Lab Interpretation (test code = Abnormal 63055-0) [facility]ervillePhosphorus [id number] 06:58:24 Test Item Value Reference Range Interpretation Comments PHOSPHORUS (test code = 1045092948) 1.1 mg/dL 2.5-5.0 L Lab Interpretation (test code = Abnormal 63373-7) [facility]ervilleHepatic Function Panel (ALB, T.PRO, BILI T, BU/BC, ALT, AST, ALK, PHOS)2021-10-29 06:58:24 Test Item Value Reference Range Interpretation Comments TOTAL BILI (test code = 12.1 mg/dL 0.1-1.1 H 7145511504) BILI UNCON (test code = 2.2 mg/dL 0.1-1.1 H 7129450872) BILI CONJ (test code = 6733523464) 7.5 mg/dL 0.0-0.3 H T PROTEIN (test code = 5390674918) 6.5 g/dL 6.3-8.2 ALBUMIN (test code = 7043140713) 2.9 g/dL 3.5-5.0 L ALK PHOS (test code = 0966247296) 189 U/L 34-122 H ALTv (test code = 1742-6) 40 U/L 5-35 H AST(SGOT) (test code = 7515019329) 279 U/L 13-40 H Lab Interpretation (test code = Abnormal 22738-0) [facility]ervilleLactic Acid Whole Whxwf6195-12-79 06:50:36 Test Item Value Reference Range Interpretation Comments LACTIC ACID (test code = 4.80 mmol/L 0.50-2.20 H 2617763497) Lab Interpretation (test code = Abnormal 46756-7) [facility]ervilleCB with Ekgvxqxaaheu5082-63-47 06:31:20 Test Item Value Reference Range Interpretation Comments [...] as normal/abnormal . HGB (test code = 7.3 g/dL 11.6-15.0 L 718-7) HCT (test code = 23.1 % 35.7-45.2 L 4544-3) MCV (test code = 88.8 fL 80.6-95.5 787-2) MCH (test code = 28.1 pg 25.9-32.8 785-6) MCHC (test code = 31.6 g/dL 31.6-35.1 786-4) RDW-SD (test code = 87.4 fL 39.0-49.9 H 59896-1) RDW-CV (test code = 27.9 % 12.0-15.5 H 788-0) PLT (test code = See_Comment L [Automated 777-3) message] The sy stem which generated this result transmitted reference range : 166 - 358 10*3/ ?L. The reference r yvonne was not used to interpret this result as normal/abnormal . MPV (test code = 9.8 fL 9.5-12.9 11888-9) IPF % (test code = 10.9 % 1.3-7.7 H Platelet count 0457509614) measured by fluorescence method. NRBC/100 WBC (test See_Comment [Automat ed code = 1339295398) message] The system which generated this result transmitted reference range : 0.0 - 10.0 /100 WBCs. The refer ence range was not u sed to interpret th is result as normal/abnormal . NRBC x10^3 (test code See_Comment [Auto mated = 9465504823) message] The s ystem which generated this result transmitted reference range : 10*3/?L. The reference range was not used to interpret this result as normal/abnormal . GRAN MAT (NEUT) % 77.0 % (test code = 770-8) IMM GRAN % (test code 0.90 % = 3319326503) LYMPH % (test code = 14.6 % 736-9) MONO % (test code = 6.9 % 5905-5) EOS % (test code = 0.2 % 713-8) BASO % (test code = 0.4 % 706-2) GRAN MAT x10^3(ANC) 6.60 10*3/uL 1.88-7.09 (test code = 5693927900) IMM GRAN x10^3 (test 0.08 10*3/uL 0.00-0.06 H code = 7175713135) LYMPH x10^3 (test 1.25 10*3/uL 1.32-3.29 L code = 731-0) MONO x10^3 (test code 0.59 10*3/uL 0.33-0.92 = 742-7) EOS x10^3 (test code <0.03 0.03-0.39 L = 711-2) BASO x10^3 (test code 0.03 10*3/uL 0.01-0.07 = 704-7) SIDEROTIC GRAN (test Suggestive of A code = 7795-8) Lab Interpretation Abnormal (test code = 56989-9) [facility]ervilleaPTT2022-04-15 06:06:16 Test Item Value Reference Range Interpretation Comments APTT Patient (test code See_Comment H [Au tomated message] = 3173-2) The system [employer] generated this result transmitted ref erence range: 26 - 36 Seconds. The reference range was not used to int erpret this result as normal/abnormal . Lab Interpretation (test Abnormal code = 57092-6) [facility] P[facility]ugervilleProthrombin Time / [id number] 06:06:16 Test Item Value Reference Range Interpretation Comments PROTIME PATIENT (test See_Comment H [Auto mated message] code = 5964-2) The system [employer] generated this result transmitted ref erence range: 10.1 - 1 2.6 Seconds. The reference range was not used to int erpret this result as normal/abnormal . INR (test code = 6301-6) Nor mal INR <1.1; Warfarin Therap eutic range 2.0 to 3. 0 or 2.5 to 3.5, dep ending upon the indica tions. Lab Interpretation (test Abnormal code = 51162-3) [facility]ervilleUrinalysis2021-09-02 07:32:57 Test Item Value Reference Range Interpretation Comments APPEARANCE (test code = Hazy Clear A 9945104673) COLOR (test code = Straw Yellow A 2388431672) PH (test code = 4.8-8.0 1538009516) SP GRAVITY (test code = 1.003-1.030 L 6374698739) GLU U QUAL (test code = Normal Normal 9879135591) BLOOD (test code = 1+ Negative A 3649950701) KETONES (test code = Negative Negative 8005982531) PROTEIN (test code = Negative Negative 2887-8) UROBILIN (test code = Normal Normal 1276307603) BILIRUBIN (test code = Negative Negative 0502980774) NITRITE (test code = Negative Negative 0767521082) LEUK NIMESH (test code = 250/uL Negative A 4900048938) RBC/HPF (test code = See_Comment [Autom ated message] 6884002344) The system [employer] generated this result transmitted ref erence range: 0 - 3 HP F. The reference range was not used to int erpret this result as normal/abnormal . WBC/HPF (test code = See_Comment [Autom ated message] 5702202557) The system [employer] generated this result transmitted ref erence range: 0 - 5 HP F. The reference range was not used to int erpret this result as normal/abnormal . BACTERIA (test code = Few Negative A 7204166988) SQ EPITH (test code = HPF 4261811933) Lab Interpretation (test Abnormal code = 33171-8) [facility]ervilleUrinalysis2021-09-02 07:32:57 Test Item Value Reference Range Interpretation Comments APPEARANCE (test code = Hazy Clear A 0282059016) COLOR (test code = Straw Yellow A 2139739793) PH (test code = 4.8-8.0 3306398168) SP GRAVITY (test code = 1.003-1.030 L 7099726167) GLU U QUAL (test code = Normal Normal 4386699185) BLOOD (test code = 1+ Negative A 7971124047) KETONES (test code = Negative Negative 4960303589) PROTEIN (test code = Negative Negative 2887-8) UROBILIN (test code = Normal Normal 2122708158) BILIRUBIN (test code = Negative Negative 5441399210) NITRITE (test code = Negative Negative 7239602906) LEUK NIMESH (test code = 250/uL Negative A 0504684144) RBC/HPF (test code = See_Comment [Autom ated message] 2231979143) The system [employer] generated this result transmitted ref erence range: 0 - 3 HP F. The reference range was not used to int erpret this result as normal/abnormal . WBC/HPF (test code = See_Comment [Autom ated message] 9564634334) The system [employer] generated this result transmitted ref erence range: 0 - 5 HP F. The reference range was not used to int erpret this result as normal/abnormal . BACTERIA (test code = Few Negative A 7193512194) SQ EPITH (test code = HPF 9216176049) Lab Interpretation (test Abnormal code = 87950-7) [facility]ervilleCBC with Ejwqwnetknuc8051-20-12 06:30:04 Test Item Value Reference Range Interpretation [...] (test code = 52.1 fL 39.0-49.9 H 39951-8) RDW-CV (test code = 23.9 % 12.0-15.5 H 788-0) PLT (test code = See_Comment [Automated 777-3) message] The sy stem which generated this result transmitted reference range : 166 - 358 10*3/ ?L. The reference r yvonne was not used to interpret this result as normal/abnormal . MPV (test code = 9.6 fL 9.5-12.9 90985-4) NRBC/100 WBC (test See_Comment [Automat ed code = 2784077350) message] The system which generated this result transmitted reference range : 0.0 - 10.0 /100 WBCs. The refer ence range was not u sed to interpret th is result as normal/abnormal . NRBC x10^3 (test code <0.01 See_Comment [Auto mated = 8719635041) message] The s ystem which generated this result transmitted reference range : 10*3/?L. The reference range was not used to interpret this result as normal/abnormal . GRAN MAT (NEUT) % 63.0 % (test code = 770-8) IMM GRAN % (test code 0.30 % = 2573701182) LYMPH % (test code = 25.8 % 736-9) MONO % (test code = 8.0 % 5905-5) EOS % (test code = 1.9 % 713-8) BASO % (test code = 1.0 % 706-2) GRAN MAT x10^3(ANC) 3.63 10*3/uL 1.88-7.09 (test code = 0204007512) IMM GRAN x10^3 (test <0.03 0.00-0.06 code = 8575235654) LYMPH x10^3 (test code 1.49 10*3/uL 1.32-3.29 = 731-0) MONO x10^3 (test code 0.46 10*3/uL 0.33-0.92 = 742-7) EOS x10^3 (test code = 0.11 10*3/uL 0.03-0.39 711-2) BASO x10^3 (test code 0.06 10*3/uL 0.01-0.07 = 704-7) Lab Interpretation Abnormal (test code = 05706-1) [facility] with Lprxvuyornla8842-70-54 06:30:04 Test Item Value Reference Range Interpretation Comments WBC (test code = See_Comment [Automated 8490-2) message] The sy stem which generated this result transmitted reference range : 4.30 - 11.10 10*3/?L. The reference range was not used to interpret this result as normal/abnormal . RBC (test code = See_Comment [Automated 329-8) message] The sy stem which generated this [...] (test code = 52.1 fL 39.0-49.9 H 55746-1) RDW-CV (test code = 23.9 % 12.0-15.5 H 788-0) PLT (test code = See_Comment [Automated 777-3) message] The sy stem which generated this result transmitted reference range : 166 - 358 10*3/ ?L. The reference r yvonne was not used to interpret this result as normal/abnormal . MPV (test code = 9.6 fL 9.5-12.9 71453-6) NRBC/100 WBC (test See_Comment [Automat ed code = 2469185271) message] The system which generated this result transmitted reference range : 0.0 - 10.0 /100 WBCs. The refer ence range was not u sed to interpret th is result as normal/abnormal . NRBC x10^3 (test code <0.01 See_Comment [Auto mated = 1111822089) message] The s ystem which generated this result transmitted reference range : 10*3/?L. The reference range was not used to interpret this result as normal/abnormal . GRAN MAT (NEUT) % 63.0 % (test code = 770-8) IMM GRAN % (test code 0.30 % = 9241520836) LYMPH % (test code = 25.8 % 736-9) MONO % (test code = 8.0 % 5905-5) EOS % (test code = 1.9 % 713-8) BASO % (test code = 1.0 % 706-2) GRAN MAT x10^3(ANC) 3.63 10*3/uL 1.88-7.09 (test code = 2158585894) IMM GRAN x10^3 (test <0.03 0.00-0.06 code = 2441710842) LYMPH x10^3 (test code 1.49 10*3/uL 1.32-3.29 = 731-0) MONO x10^3 (test code 0.46 10*3/uL 0.33-0.92 = 742-7) EOS x10^3 (test code = 0.11 10*3/uL 0.03-0.39 711-2) BASO x10^3 (test code 0.06 10*3/uL 0.01-0.07 = 704-7) Lab Interpretation Abnormal (test code = 44378-8) [facility]ervilleComplete Metabolic Pnzqf9590-52-12 06:16:00 Test Item Value Reference Range Interpretation Comments NA (test code = 135 mmol/L 135-145 3013434307) K (test code = 3.7 mmol/L 3.5-5.0 2589012945) CL (test code = 99 mmol/L 98-108 8835182667) CO2 TOTAL (test code = 25 mmol/L 23-31 3497484674) AGAP (test code = 2-16 1204042574) BUN (test code = 8 mg/dL 7-23 5822030635) GLUCOSE (test code = 128 mg/dL 70-110 H 5135146502) CREATININE (test code = 0.70 mg/dL 0.50-1.04 2811267552) TOTAL BILI (test code = 0.7 mg/dL 0.1-1.9 0064598644) CALCIUM (test code = 10.0 mg/dL 8.6-10.6 9092719028) T PROTEIN (test code = 9.0 g/dL 6.3-8.2 H 7664601197) ALBUMIN (test code = 5.1 g/dL 3.5-5.0 H 6057563051) ALK PHOS (test code = 62 U/L 34-122 8468964751) ALTv (test code = 13 U/L 5-35 1742-6) AST(SGOT) (test code = 33 U/L 13-40 0841935402) eGFR (test code = mL/min/1.73m2 8228079613) SONIA (test code = SONIA) Association of [...] tests). Lab Interpretation Abnormal (test code = 47506-6) [facility]Complete Metabolic Ixygu5684-46-12 06:16:00 Test Item Value Reference Range Interpretation Comments NA (test code = 135 mmol/L 135-145 1973688389) K (test code = 3.7 mmol/L 3.5-5.0 3745939997) CL (test code = 99 mmol/L 98-108 3308918825) CO2 TOTAL (test code = 25 mmol/L 23-31 3361303473) AGAP (test code = 2-16 7046749054) BUN (test code = 8 mg/dL 7-23 2607073449) GLUCOSE (test code = 128 mg/dL 70-110 H 8130456189) CREATININE (test code = 0.70 mg/dL 0.50-1.04 8541887311) TOTAL BILI (test code = 0.7 mg/dL 0.1-1.1 3568343002) CALCIUM (test code = 10.0 mg/dL 8.6-10.6 8901919151) T PROTEIN (test code = 9.0 g/dL 6.3-8.2 H 4314359799) ALBUMIN (test code = 5.1 g/dL 3.5-5.0 H 2638675760) ALK PHOS (test code = 62 U/L 34-122 1575869551) ALTv (test code = 13 U/L 5-35 1742-6) AST(SGOT) (test code = 33 U/L 13-40 2494175418) eGFR (test code = mL/min/1.73m2 7415152824) SONIA (test code = SONIA) Association of [...] tests). Lab Interpretation Abnormal (test code = 33874-9) [facility], Unorz3878-98-74 06:15:40 Test Item Value Reference Range Interpretation Comments LIPASE (test code = 9743525297) 73 U/L 0-220 Lab Interpretation (test code = Normal 80151-0) [facility], Wsyqh5790-01-44 06:15:40 Test Item Value Reference Range Interpretation Comments LIPASE (test code = 2787774688) 73 U/L 0-220 Lab Interpretation (test code = Normal 64250-9) [facility]ervilleXR RIBS 3 VW [id number] 00:10:59 Impression: 1. ?Radiographically unremarkable ?left rib series. RL: 2822 AFC: 33887 EXAMINATION: ?Rib series 03/13/2021 7:10 PM Ordering [...] isunremarkable.IMPRESSIONImpression:1. Radiographically unremarkable left rib series.RL: 2822AFC: [id number] signed by Mervin Kumrai MD at 03/13/2021 7:10 PMUnAspire [facility]al Health HospitalXR RIBS 3 VW ESES4825-60-86 00:10:59Impression: 1. ?Radiographically unremarkable ?left rib series. RL: 2822 AFC: [id number] EXAMINATION: ?Rib series 03/13/2021 7:10 PM Ordering [...] isunremarkable.IMPRESSIONImpression:1. Radiographically unremarkable left rib series.RL: 2822AFC: 57792Lohcerermtkomi signed by Mervin Kumari MD at 03/13/2021 7:10 PMUnAspire Behavioral Health HospitalXR SHOULDER 2+ VW [id number] 00:10:08Impression: 1. ?Radiographically unremarkable left shoulder. RL: 2822 AFC: 87857 EXAMINATION: ?SHOULDER left COMPLETE MIN 3 VIEWS 03/13/2021 7:09 PM Ordering physician: SANDY DREW CLINICAL HISTORY: ?shoulder pain COMPARISON EXAM(S): ?None Technique: Internal, external rotation, and trans- scapular Y views of the leftshoulder. Findings: No acute fractures, subluxations, bony masses, or radiographic soft tissueabnormality. ?The visualizedportions of the left hemithorax areunremarkable. [facility], Radiant Results Inft User - 03/13/2021 7:11 PM CDT EXAMINATION: SHOULDER left COMPLETE MIN 3 VIEWS03/13/2021 7:09 PMOrdering physician: SANDY DREW CLINICAL HISTORY: shoulder painCOMPARISON EXAM(S): NoneTechnique:Internal, external rotation, and trans-scapular Y views of the leftshoulder.Findings:No acute fractures, subluxations, bony masses, or radiographic soft tissueabnormality. The visualized portions of the left hemithorax areunremarkable.IMPRESSIONImpression:1. Radiographically unremarkable left shoulder. RL: 2822AFC: [id number] signed by Mervin Kumari MD at 03/13/2021 7:10 PMUnAspire Behavioral Health HospitalXR SHOULDER 2+ VW [id number] 00:10:08Impression: 1. ?Radiographically unremarkable left shoulder. RL: 2822 AFC: 42220 EXAMINATION: ?SHOULDER left COMPLETE MIN 3 VIEWS [...] areunremarkable.IMPRESSIONImpression:1. Radiographically unremarkable left shoulder. RL: 2822AFC: 58487Kojlaqlfaeiwiz signed by Mervin Kumari MD at 03/13/2021 7:10 PMUnAspire Behavioral Health HospitalCT HEAD WO PFXQBJHA4344-05-55 22:41:[address] headCT HEAD WO CONTRAST [...] andvisualized paranasal air sinuses are clear.IMPRESSIONNormal CT headUnAspire Behavioral Health HospitalCT HEAD WO MKPWCNFK6071-41-07 22:41:[address] headCT HEAD WO CONTRAST [...] andvisualized paranasal air sinuses are clear.IMPRESSIONNormal CT headUnTexas [facility] [id number] 22:16:22 Test Item Value Reference Interpretation Comments Range TROPONIN I (test 0.002 ng/mL See_Comment [Automated code = 5781616793) message] The system which generated this result [...] biotin. Lab Interpretation Normal (test code = 99614-7) [facility] [id number] 22:16:22 Test Item Value Reference Range Interpretation Comments TROPONIN I (test code = 0.002 ng/mL See_Comment [Au tomated 7562979375) message] The sy stem which generated this result transmitted reference range : <=0.034. The reference range was not used to interpret this result as normal/abnormal . SONIA (test code = SONIA) Lab Interpretation Normal (test code = 88185-9) [facility]. METABOLIC PANEL (55736)2021-03-13 22:05:22 Test Item Value Reference Range Interpretation Comments NA (test code = 136 mmol/L 135-145 4465788901) K (test code = 3.7 mmol/L 3.5-5.0 9334990061) CL (test code = 99 mmol/L 98-108 3606547784) CO2 TOTAL (test code = 27 mmol/L 23-31 1521022881) AGAP (test code = 2-16 3242400961) BUN (test code = 12 mg/dL 7-23 4642839322) GLUCOSE (test code = 115 mg/dL 70-110 H 6855649642) CREATININE (test code = 0.76 mg/dL 0.50-1.04 4641727175) TOTAL BILI (test code = 1.2 mg/dL 0.1-1.1 H 0722173312) CALCIUM (test code = 10.2 mg/dL 8.6-10.6 7226749712) T PROTEIN (test code = 9.4 g/dL 6.3-8.2 H 0755834870) ALBUMIN (test code = 5.1 g/dL 3.5-5.0 H 4390092490) ALK PHOS (test code = 82 U/L 34-122 9658219746) ALTv (test code = 14 U/L 5-35 2-6) AST(SGOT) (test code = 31 U/L 13-40 5522465923) eGFR (test code = mL/min/1.73m2 8224320374) SONIA (test code = SONIA) Association of [...] tests). Lab Interpretation Abnormal (test code = 95581-5) [facility]. METABOLIC PANEL (86984)2021-03-13 22:05:22 Test Item Value Reference Range Interpretation Comments NA (test code = 4208707592) 136 mmol/L 135-145 K (test code = 2999151288) 3.7 mmol/L 3.5-5.0 CL (test code = 2728403724) 99 mmol/L 98-108 CO2 TOTAL (test code = 8193679746) 27 mmol/L 23-31 AGAP (test code = 4828296467) 2-16 BUN (test code = 7234368632) 12 mg/dL 7-23 GLUCOSE (test code = 3377723566) 115 mg/dL 70-110 H CREATININE (test code = 0.76 mg/dL 0.50-1.04 8702345312) TOTAL BILI (test code = 1.2 mg/dL 0.1-1.1 H 8021162431) CALCIUM (test code = 0200128848) 10.2 mg/dL 8.6-10.6 T PROTEIN (test code = 2593837645) 9.4 g/dL 6.3-8.2 H ALBUMIN (test code = 2077687259) 5.1 g/dL 3.5-5.0 H ALK PHOS (test code = 0558016885) 82 U/L 34-122 ALTv (test code = 1742-6) 14 U/L 5-35 AST(SGOT) (test code = 4524566534) 31 U/L 13-40 eGFR (test code = 6681640088) mL/min/1.73m2 SONIA (test code = SONIA) Lab Interpretation (test code = Abnormal 44089-6) [facility] WITH [id number] 21:59:25 Test Item Value Reference Range Interpretation Comments WBC (test code = See_Comment [Automated 6490-2) message] The sy stem which generated this [...] (test code = 50.4 fL 39.0-49.9 H 31157-5) RDW-CV (test code = 22.5 % 12.0-15.5 H 788-0) PLT (test code = See_Comment [Automated 777-3) message] The sy stem which generated this result transmitted reference range : 166 - 358 10*3/ ?L. The reference r yvonne was not used to interpret this result as normal/abnormal . MPV (test code = 9.2 fL 9.5-12.9 L 01209-3) NRBC/100 WBC (test See_Comment [Automat ed code = 6378650916) message] The system which generated this result transmitted reference range : 0.0 - 10.0 /100 WBCs. The refer ence range was not u sed to interpret th is result as normal/abnormal . NRBC x10^3 (test code <0.01 See_Comment [Auto mated = 1789540002) message] The s ystem which generated this result transmitted reference range : 10*3/?L. The reference range was not used to interpret this result as normal/abnormal . GRAN MAT (NEUT) % 75.1 % (test code = 770-8) IMM GRAN % (test code 0.30 % = [id number]) LYMPH % (test code = 16.3 % 736-9) MONO % (test code = 7.6 % 5905-5) EOS % (test code = 0.1 % 713-8) BASO % (test code = 0.6 % 706-2) GRAN MAT x10^3(ANC) 7.18 10*3/uL 1.88-7.09 H (test code = [id number]) IMM GRAN x10^3 (test 0.03 10*3/uL 0.00-0.06 code = [id number]) LYMPH x10^3 (test code 1.56 10*3/uL 1.32-3.29 = 731-0) MONO x10^3 (test code 0.73 10*3/uL 0.33-0.92 = 742-7) EOS x10^3 (test code = <0.03 0.03-0.39 L 711-2) BASO x10^3 (test code 0.06 10*3/uL 0.01-0.07 = 704-7) Lab Interpretation Abnormal (test code = 29799-0) [facility] WITH [id number] 21:59:25 Test Item Value Reference Range Interpretation [...] (test code = 50.4 fL 39.0-49.9 H 20377-6) RDW-CV (test code = 22.5 % 12.0-15.5 H 788-0) PLT (test code = See_Comment [Automated 777-3) message] The sy stem which generated this result transmitted reference range : 166 - 358 10*3/ ?L. The reference r yvonne was not used to interpret this result as normal/abnormal . MPV (test code = 9.2 fL 9.5-12.9 L 91476-3) NRBC/100 WBC (test See_Comment [Automat ed code = 4926740679) message] The system which generated this result transmitted reference range : 0.0 - 10.0 /100 WBCs. The refer ence range was not u sed to interpret th is result as normal/abnormal . NRBC x10^3 (test code <0.01 See_Comment [Auto mated = 0307742335) message] The s ystem which generated this result transmitted reference range : 10*3/?L. The reference range was not used to interpret this result as normal/abnormal . GRAN MAT (NEUT) % 75.1 % (test code = 770-8) IMM GRAN % (test code 0.30 % = 7494792712) LYMPH % (test code = 16.3 % 736-9) MONO % (test code = 7.6 % 5905-5) EOS % (test code = 0.1 % 713-8) BASO % (test code = 0.6 % 706-2) GRAN MAT x10^3(ANC) 7.18 10*3/uL 1.88-7.09 H (test code = 0518737765) IMM GRAN x10^3 (test 0.03 10*3/uL 0.00-0.06 code = 4559654405) LYMPH x10^3 (test code 1.56 10*3/uL 1.32-3.29 = 731-0) MONO x10^3 (test code 0.73 10*3/uL 0.33-0.92 = 742-7) EOS x10^3 (test code = <0.03 0.03-0.39 L 711-2) BASO x10^3 (test code 0.06 10*3/uL 0.01-0.07 = 704-7) Lab Interpretation Abnormal (test code = 52991-2) [facility] [id number] 20:47:58 No acute intrathoracic abnormality. Preliminary Report [...] reviewed this study and agree with theabove report.[facility] [id number] 20:47:58 No acute intrathoracic abnormality. Preliminary Report [...] acute intrathoracic abnormality.Preliminary Report Dictated by Resident: Veronica Ellington, Ortega Luther MD., have reviewed this study and agree with theabove report.[facility] [id number] 19:28:00 Test Item Value Reference Range Interpretation Comments POCT PREG (test code = 1605) negative On board controls acceptable with present C Line (test code = 3574) POCT PREG LOT # (test code = 3575) [id number] POCT PREG TEST DATE (test code = 3576) Lab Interpretation (test code = Normal 38841-9) [facility] [id number] 19:28:00 Test Item Value Reference Range Interpretation Comments POCT PREG (test code = 1605) negative On board controls acceptable with present C Line (test code = 3574) POCT PREG LOT # (test code = 3575) [id number] POCT PREG TEST DATE (test code = 3576) Lab Interpretation (test code = Normal 75155-6) [facility]. METABOLIC PANEL ([id number])2020-11-20 09:27:15 Test Item Value Reference Range Interpretation Comments NA (test code = 135 mmol/L 135-145 5921464186) K (test code = 4.0 mmol/L 3.5-5.0 5793986065) CL (test code = 99 mmol/L 98-108 9309749974) CO2 TOTAL (test code 29 mmol/L 23-31 = 5746120640) AGAP (test code = 7 2-16 4617009411) BUN (test code = 9 mg/dL 7-23 7760348596) GLUCOSE (test code = 97 mg/dL 70-110 6395727624) CREATININE (test code 0.53 mg/dL 0.50-1.04 = 5300114710) TOTAL BILI (test code 0.4 mg/dL 0.1-1.1 = 1215501633) CALCIUM (test code = 9.1 mg/dL 8.6-10.6 6406561732) T PROTEIN (test code 7.0 g/dL 6.3-8.2 = 9097813090) ALBUMIN (test code = 4.0 g/dL 3.5-5.0 4245874162) ALK PHOS (test code = 52 U/L 34-122 0496176708) ALTv (test code = 13 U/L 5-35 1742-6) AST(SGOT) (test code 27 U/L 13-40 = 7605811814) eGFR (test code = 132.0 mL/min/1.73m2 5235077907) SONIA (test code = OSNIA) Association of Glomerular Filtration Rate (GFR) and [...] or urine or abnormalities in imaging tests). [facility]. METABOLIC PANEL ([id number])2020-11-20 09:27:15 Test Item Value Reference Range Interpretation Comments NA (test code = 135 mmol/L 135-145 9353052956) K (test code = 4.0 mmol/L 3.5-5.0 7830635743) CL (test code = 99 mmol/L 98-108 5523135382) CO2 TOTAL (test code 29 mmol/L 23-31 = 4870607642) AGAP (test code = 2-16 1308493171) BUN (test code = 9 mg/dL 7-23 9710299918) GLUCOSE (test code = 97 mg/dL 70-110 9717980046) CREATININE (test code 0.53 mg/dL 0.50-1.04 = 6115388318) TOTAL BILI (test code 0.4 mg/dL 0.1-1.1 = 6402667766) CALCIUM (test code = 9.1 mg/dL 8.6-10.6 8144696009) T PROTEIN (test code 7.0 g/dL 6.3-8.2 = 6914006540) ALBUMIN (test code = 4.0 g/dL 3.5-5.0 3165196439) ALK PHOS (test code = 52 U/L 34-122 8615265428) ALTv (test code = 13 U/L 5-35 2-6) AST(SGOT) (test code 27 U/L 13-40 = 6340611654) eGFR (test code = mL/min/1.73m2 5098676081) SONIA (test code = SONIA) Association of [...] or urine or abnormalities in imaging tests). [facility] [id number] 09:27:00 Test Item Value Reference Range Interpretation Comments POCT PREG (test code = 1605) negative On board controls acceptable with C present Line (test code = 3574) Lab Interpretation (test code = Normal 16014-1) [facility] [id number] 09:27:00 Test Item Value Reference Range Interpretation Comments POCT PREG (test code = 1605) negative On board controls acceptable with C present Line (test code = 3574) Lab Interpretation (test code = Normal 28623-9) [facility] UNCONJUGATED/BILI [id number] 09:26:34 Test Item Value Reference Range Interpretation Comments BILI CONJ (test code = 2550679092) 0.0 mg/dL 0.0-0.3 BILI UNCON (test code = 1773390735) 0.2 mg/dL 0.1-1.1 Lab Interpretation (test code = Normal 59078-8) [facility] UNCONJUGATED/BILI [id number] 09:26:34 Test Item Value Reference Range Interpretation Comments BILI CONJ (test code = 9764151747) 0.0 mg/dL 0.0-0.3 BILI UNCON (test code = 2559705976) 0.2 mg/dL 0.1-1.1 Lab Interpretation (test code = Normal 23548-0) [facility] / [id number] 09:18:33 Test Item Value Reference Range Interpretation Comments PROTIME PATIENT (test 12.4 See_Comment [Auto mated message] code = 5964-2) The system [employer] generated this result transmitted ref erence range: 12.0 - 1 4.7 Seconds. The re ference range was not u sed to interpret this result as normal/abnor mal. INR (test code = 6301-6) 1.0 Nor mal INR <1.1; Warfarin Therap eutic range 2.0 to 3. 0 or 2.5 to 3.5, dep ending upon the indica tions. Lab Interpretation (test Normal code = 84125-5) [facility] / [id number] 09:18:33 Test Item Value Reference Range Interpretation Comments PROTIME PATIENT (test See_Comment [Auto mated message] code = 5964-2) The system [employer] generated this result transmitted ref erence range: 12.0 - 1 4.7 Seconds. The re ference range was not u sed to interpret this result as normal/abnor mal. INR (test code = 6301-6) Nor mal INR <1.1; Warfarin Therap eutic range 2.0 to 3. 0 or 2.5 to 3.5, dep ending upon the indica tions. Lab Interpretation (test Normal code = 15184-3) [facility] WITH [id number] 09:03:56 Test Item Value Reference Range Interpretation [...] (test code = 51.1 fL 39.0-49.9 H 97535-6) RDW-CV (test code = 22.0 % 12.0-15.5 H 788-0) PLT (test code = 268 See_Comment [Automated 777-3) message] The sy stem which generated this result transmitted reference range : 166 - 358 10*3/ ?L. The reference r yvnone was not used to interpret this result as normal/abnormal . MPV (test code = 9.4 fL 9.5-12.9 L 22855-7) NRBC/100 WBC (test 0.0 See_Comment [Automat ed code = 8344297226) message] The system which generated this result transmitted reference range : 0.0 - 10.0 /100 WBCs. The refer ence range was not u sed to interpret th is result as normal/abnormal . NRBC x10^3 (test code <0.01 See_Comment [Auto mated = 9270465746) message] The s ystem which generated this result transmitted reference range : 10*3/?L. The reference range was not used to interpret this result as normal/abnormal . GRAN MAT (NEUT) % 65.0 % (test code = 770-8) IMM GRAN % (test code 0.30 % = 5711647381) LYMPH % (test code = 25.5 % 736-9) MONO % (test code = 7.4 % 5905-5) EOS % (test code = 0.9 % 713-8) BASO % (test code = 0.9 % 706-2) GRAN MAT x10^3(ANC) 4.47 10*3/uL 1.88-7.09 (test code = 4237937518) IMM GRAN x10^3 (test <0.03 0.00-0.06 code = 1202854787) LYMPH x10^3 (test code 1.75 10*3/uL 1.32-3.29 = 731-0) MONO x10^3 (test code 0.51 10*3/uL 0.33-0.92 = 742-7) EOS x10^3 (test code = 0.06 10*3/uL 0.03-0.39 711-2) BASO x10^3 (test code 0.06 10*3/uL 0.01-0.07 = 704-7) Lab Interpretation Abnormal (test code = 86285-7) [facility] WITH [id number] 09:03:56 Test Item Value Reference Range Interpretation Comments WBC (test code = See_Comment [Automated 0690-2) message] The sy stem which generated this result transmitted reference range : 4.30 - 11.10 10*3/?L. The reference range was not used to interpret this result as normal/abnormal . RBC (test code = See_Comment L [Automated 289-8) message] The sy stem which generated this [...] (test code = 51.1 fL 39.0-49.9 H 17785-1) RDW-CV (test code = 22.0 % 12.0-15.5 H 788-0) PLT (test code = See_Comment [Automated 777-3) message] The sy stem which generated this result transmitted reference range : 166 - 358 10*3/ ?L. The reference r yvonne was not used to interpret this result as normal/abnormal . MPV (test code = 9.4 fL 9.5-12.9 L 36964-3) NRBC/100 WBC (test See_Comment [Automat ed code = 0674764563) message] The system which generated this result transmitted reference range : 0.0 - 10.0 /100 WBCs. The refer ence range was not u sed to interpret th is result as normal/abnormal . NRBC x10^3 (test code <0.01 See_Comment [Auto mated = 6635622205) message] The s ystem which generated this result transmitted reference range : 10*3/?L. The reference range was not used to interpret this result as normal/abnormal . GRAN MAT (NEUT) % 65.0 % (test code = 770-8) IMM GRAN % (test code 0.30 % = 0347385296) LYMPH % (test code = 25.5 % 736-9) MONO % (test code = 7.4 % 5905-5) EOS % (test code = 0.9 % 713-8) BASO % (test code = 0.9 % 706-2) GRAN MAT x10^3(ANC) 4.47 10*3/uL 1.88-7.09 (test code = 2911155053) IMM GRAN x10^3 (test <0.03 0.00-0.06 code = 7897092464) LYMPH x10^3 (test code 1.75 10*3/uL 1.32-3.29 = 731-0) MONO x10^3 (test code 0.51 10*3/uL 0.33-0.92 = 742-7) EOS x10^3 (test code = 0.06 10*3/uL 0.03-0.39 711-2) BASO x10^3 (test code 0.06 10*3/uL 0.01-0.07 = 704-7) Lab Interpretation Abnormal (test code = 43561-9) [facility] GLUCOSE (AUTOMATED)2020-11-20 08:38:55 Test Item Value Reference Range Interpretation Comments POCT GLU (test code = 4372954848) 104 mg/dL 70-110 Lab Interpretation (test code = Normal 39080-6) [facility] GLUCOSE (AUTOMATED)2020-11-20 08:38:55 Test Item Value Reference Range Interpretation Comments POCT GLU (test code = 8445652948) 104 mg/dL 70-110 Lab Interpretation (test code = Normal 23825-4) [facility] [id number] 21:41:0011[facility] UURAO1857-11-98 21:41:38876Ryfyjamc HermannANEMIA VVXOM5532-63-51 21:41:004[facility]annANEMIA ZIMAS5868-69-17 21:41:0011[facility]AN[facility]IA GBMSK8633-63-22 21:41:72381Ytcokdtg HermannANEMIA IMZLA5871-94-56 21:41:004 [facility] ZFYGG2579-90-22 21:41:0011[facility]AN[facility]IA STUDY 2020-09-14 21:41:86472Kuvqquqr HermannANEMIA KGTSA9032-51-49 21:41:004[facility]annCHEM HPUGT8540-83-34 09:48:79158Qdllyfzg HermannCHEM VNNHD1378-55-70 09:48:0074[facility]annCHEM WZPWL4418-18-23 09:48:0010[facility]annCHE[facility] GPJWL5283-85-93 09:48:000.49[facility]annCHE[facility] SBVGL3491-60-41 09:48:61937 [facility] VMVLP8895-43-63 09:48:003.0[facility]annCHEM PANEL 2020-09-14 09:48:0099[facility]annCHEM NCSVH6714-38-26 09:48:0033[facility]annCHE[facility] UVGDZ4521-35-45 09:48:007.0[facility]annCHE[facility] BUMYE2220-15-64 09:48:008.4[facility]annCHE[facility] CPVRW5672-58-27 09:48:00 Test Item Value Reference Range Interpretation Comments B/C Ratio (test code = B/C Ratio) 20 1 6-25 [facility]ann[facility] LFKYD5205-41-75 09:48:005.8[facility]annCHEM PANEL 2020-09-14 09:48:002.4[facility]annCHE[facility] DXRJU0655-68-32 09:48:003.4[facility]annCHE[facility] KVMMC1061-36-70 09:48:00 Test Item Value Reference Range Interpretation Comments A/G Ratio (test code = A/G Ratio) 0.7 1 0.7-1.6 [facility]ann[facility] TNXJD7861-53-35 09:48:0027[facility]annCHEM PANEL 2020-09-14 09:48:0036[facility]annCHE[facility] WSCVV3943-15-94 09:48:0057[facility]annCHE[facility] MKAWX4154-63-85 09:48:000.4[facility]annCHEM POVJS9572-01-22 09:48:73066Npczhrfb HermannCHEM UAKWI7033-15-02 09:48:002.2[facility]annCHEM FVVAO6356-69-76 09:48:003.4[facility] BbfkwvoTJNTVYJTTL0734-30-29 09:48:0056.4 [facility] NidvhawXTUCKTZTUW8035-65-01 09:48:0032.0[facility]annHEMATOLOGY 2020-09-14 09:48:007.6[facility] RqdyozhNKMNQIENRA8884-83-36 09:48:003.2[facility] EgdubygTIJRRTBGVX9795-40-95 09:48:000.8[facility] PqeugofDCXSENJQQH1476-65-24 09:48:002.3[facility] GtpyewaTRGQRTZLXD9378-61-39 09:48:001.3[facility] [place] LYJUMDZCDI9480-38-55 09:48:000.3[facility] ZsxzkcxMQWMIGSEPI8563-63-62 09:48:000.1 [facility] WrfyqtdVTEPCFTCFQ6451-59-88 09:48:003+ *NA*(09/14/20 3:48 AM)[facility] UpbewggARPWIXJOMN9241-07-93 09:48:004.1[facility] UbcqiorXFKVBUFZZB0843-19-70 09:48:003.58[facility] VadpwkcIAWBZAJNXO0530-27-62 09:48:007.1[facility] PWFFWBGSHJ3259-31-05 09:48:0022.5[facility] SrigmknHPKKZGSDCH6640-97-85 09:48:00 62.8[facility] UuircktCFPUBUIBZT0847-36-44 09:48:00 Test Item Value Reference Range Interpretation Comments MCH (test code = MCH) 19.8 pg 27.0-31.0 [facility] YbcqckfVBCJIQJAGJ3131-79-43 09:48:0031.5[facility]annHEMATOLOGY 2020-09-14 09:48:0023.2[facility] HyjyfjaUASYTBMMJJ2128-82-11 09:48:40297Dqvvivop EftjjduEWQDQYDDBC0347-85-33 09:48:008.4[facility]annCHEM YAJTW4672-51-06 09:48:11664Cfdwqzuq HermannCHEM MKNZI5116-47-52 09:48:0074[facility]annCHEM EBAEN2525-85-85 09:48:0010[facility]annCHEM CLOOB5047-85-09 09:48:000.49 [facility]annCHE[facility] TMRWQ8819-94-51 09:48:21556Eqgkhtsb HermannCHEM PANEL 2020-09-14 09:48:003.0[facility]annCHEM MYDXF9186-22-70 09:48:0099[facility]annCHEM IZQAO3721-27-56 09:48:0033[facility]annCHEM DOBCV5979-70-04 09:48:007.0[facility]annCHEM GORRL0145-28-57 09:48:008.4[facility]annCHEM TAQHR0278-89-23 09:48:00 Test Item Value Reference Range Interpretation Comments B/C Ratio (test code = B/C Ratio) 20 1 6-25 [facility]annCHE[facility] FIZCA9081-23-63 09:48:005.8[facility]annCHEM PANEL 2020-09-14 09:48:002.4[facility]annCHEM LPTAU9484-97-63 09:48:003.4[facility]annCHEM SCOPC2340-74-69 09:48:00 Test Item Value Reference Range Interpretation Comments A/G Ratio (test code = A/G Ratio) 0.7 1 0.7-1.6 [facility]ann[facility] OPRMS4009-83-33 09:48:0027[facility]annCHEM PANEL 2020-09-14 09:48:0036[facility]annCHEM BAFEE1274-29-58 09:48:0057[facility]annCHEM UMFKX3566-11-40 09:48:000.4[facility]annCHEM FYWZS5998-57-58 09:48:77007Lxmiywxl HermannCHEM DCFLC8615-60-21 09:48:002.2[facility]annCHEM WBWKR6950-93-93 09:48:003.4[facility] JrimyncAEWUNIAETS4596-85-43 09:48:0056.4 [facility] ErgiexgPXKTHUEHBH6905-94-46 09:48:0032.0[facility]annHEMATOLOGY 2020-09-14 09:48:007.6[facility] MqljsawOEDJEFXXKP7611-90-66 09:48:003.2[facility] ScejdcqVDEPXBJIWS1807-77-22 09:48:000.8[facility] SsjoklzMDBYGLRLYP2422-64-32 09:48:002.3[facility] XokpnvuHCFTBILUJM5701-81-34 09:48:001.3[facility] OITJUAVHJD3476-92-93 09:48:000.3[facility] MfzhyheSMMLKLOOIL8491-54-59 09:48:000.1 [facility] SupnwxuOFKEKBLTKW5130-87-99 09:48:003+ *NA*(09/14/20 3:48 AM)[facility] HzixkuuWLNMVTAMSZ0308-99-53 09:48:004.1[facility] UbbwwjxOZGLYCVIKP9317-56-35 09:48:003.58[facility] LvkebdhXKNHUDFDDH1892-25-07 09:48:007.1[facility] [place] RQMAYFHXSL1141-54-72 09:48:0022.5[facility] TefqvhgZLZROCZHHQ0262-89-39 09:48:00 62.8[facility] BhopjiyRWQHJTCCWP0687-79-91 09:48:00 Test Item Value Reference Range Interpretation Comments MCH (test code = MCH) 19.8 pg 27.0-31.0 [facility] HbmldquXFQCSSAFGC3362-58-63 09:48:0031.5[facility]annHEMATOLOGY 2020-09-14 09:48:0023.2[facility] DaghnhqOHGXXGPLKZ0650-02-89 09:48:19279Ckvmmfjs GvhnzeuXZIVMBRBGB4277-48-43 09:48:008.4[facility]annCHEM UJNMX1445-25-85 09:48:68765Dzrvvybj [facility]annCHE[facility] RKFJY6277-73-32 09:48:0074[facility]annCHEM KBHKN9588-17-85 09:48:0010[facility]annCHEM OPQZP2043-88-90 09:48:000.49 [facility]annCHE[facility] RMAWF8497-48-17 09:48:71059Gwrbgqzw HermannCHEM PANEL 2020-09-14 09:48:003.0[facility]annCHEM GLSSU5063-42-64 09:48:0099[facility]annCHEM KIVPM2458-13-05 09:48:0033[facility]annCHEM SXJIC2073-57-60 09:48:007.0[facility]annCHEM GDGDE9766-47-47 09:48:008.4[facility]annCHEM BLFOB5895-54-17 09:48:00 Test Item Value Reference Range Interpretation Comments B/C Ratio (test code = B/C Ratio) 20 1 6-25 [facility]annCHE[facility] AKGMQ1184-66-13 09:48:005.8[facility]annCHEM PANEL 2020-09-14 09:48:002.4[facility]annCHEM KBWUZ3365-56-55 09:48:003.4[facility]annCHEM QSSPQ7107-05-47 09:48:00 Test Item Value Reference Range Interpretation Comments A/G Ratio (test code = A/G Ratio) 0.7 1 0.7-1.6 [facility]annCHE[facility] ETOXL0500-04-60 09:48:0027[facility]annCHEM PANEL 2020-09-14 09:48:0036[facility]annCHEM WUISE8232-76-70 09:48:0057[facility]annCHEM IGCSW3355-62-52 09:48:000.4[facility]annCHEM HBFET7737-08-09 09:48:31407Xulbzazj HermannCHEM GJTEG0775-63-27 09:48:002.2[facility]annCHEM IZQSV9696-25-89 09:48:003.4[facility] LzhrnkdFQXSMXQYYP5791-97-39 09:48:0056.4 [facility] PnjiipeNOASFTIPSZ6252-38-66 09:48:0032.0[facility] HermannHEMATOLOGY 2020-09-14 09:48:007.6[facility] BioebpjIBWTKFCJIA1707-51-44 09:48:003.2[facility] AwwmckjTOXPUBMPGV2981-28-21 09:48:000.8[facility] PyogqfqWMSZCLAZOC4834-44-37 09:48:002.3[facility] NmnzdotYBWFINQSEX7041-13-03 09:48:001.3[facility] [place] KRHVXJYNOE6174-91-15 09:48:000.3[facility] PfsumfmWXBRMYKGSR3398-57-18 09:48:000.1 [facility] BdhedxrJRQRKOXIBD0473-14-05 09:48:003+ *NA*(09/14/20 3:48 AM)[facility] KvwomliDLKAYMOUQX0977-87-41 09:48:004.1[facility] JddakrkFKHFSXIIIC4042-13-77 09:48:003.58[facility] ExvxhnlXBHKYCECYR1208-35-72 09:48:007.1[facility] [place] NZPULBUBOV6188-21-37 09:48:0022.5[facility] HntzdgaTSHEHLDBMK8169-78-86 09:48:00 62.8[facility] CevndjbUKXTMZYISQ4784-61-06 09:48:00 Test Item Value Reference Range Interpretation Comments MCH (test code = MCH) 19.8 pg 27.0-31.0 [facility] ZltxpfbGVBQKHSEYJ3556-99-00 09:48:0031.5[facility]annHEMATOLOGY 2020-09-14 09:48:0023.2[facility] WvjtqgySYZGZPEQKW9396-08-22 09:48:17494Brqojbcz BmkgxvoZPEBAPPBIY6309-90-85 09:48:008.4[facility]annANEMIA KHIPS2415-52-97 22:56:0012[facility]annANEMIA TVVAM0518-16-31 22:56:98413Brflrmim [place] ANEMIA XWAAE9404-16-61 22:56:004[facility]annCHEM NQJAR8841-59-60 22:56:001.2 [facility] HqaqyotIAEEUKDJVE8635-15-86 22:56:00Not Detected (09/13/20 4:56 PM) [facility] IQVUJ9277-28-26 22:56:0012[facility]annANEMIA STUDY 2020-09-13 22:56:38422Liyjagiz HermannANEMIA UEEPZ0357-70-85 22:56:004[facility]annCHEM XVNBU6878-17-80 22:56:001.2[facility] MnoyhznVFIYPNCMQN8180-65-84 22:56:00Not Detected (09/13/20 4:56 PM)[facility]annANEMIA AEXTX6069-97-15 22:56:0012[facility]annANEMIA ZOAPR9736-59-94 22:56:04693Fahqpcva [place] ANEMIA QVLKK7032-04-14 22:56:004[facility] HermannCHEM UACAZ9581-19-44 22:56:001.2 [facility] TtsycatROWOIOZTLP7027-84-53 22:56:00Not Detected (09/13/20 4:56 PM) [facility] ZDMSO5562-49-16 20:59:00Amber *ABN*(09/13/20 2:59 PM) [facility] OPALV2790-68-37 20:59:00Marked *ABN*(09/13/20 2:59 PM) [facility] SMYRO1703-02-00 20:59:00 Test Item Value Reference Range Interpretation Comments UA Spec Grav (test code = UA Spec 1.027 1 Grav) [facility] IETKM1209-12-24 20:59:00 Test Item Value Reference Range Interpretation Comments UA pH (test code = UA pH) 5.0 1 5.0-8.0 [facility] CYRUV9427-09-90 20:59:00Negative *NA*(09/13/20 2:59 PM) [facility] DYEQZ0087-02-61 20:59:00Negative (09/13/20 2:59 PM) [facility] TWPUR7206-97-12 20:59:002.0[facility] VKYYI0236-25-16 20:59:00Positive *ABN*(09/13/20 2:59 PM)[facility] FIUDZ0027-21-61 20:59:00Moderate *ABN*(09/13/20 2:59 PM)[facility] OZESX5120-79-95 20:59:73422Dpsifdmn [facility]UR[facility] AND WHHAD0312-77-74 20:59:0018 [facility] LUIDB5167-06-17 20:59:0049[facility] CVZOT3370-65-31 20:59:00Amber *ABN*(09/13/20 2:59 PM)[facility] SOEPU4621-47-15 20:59:00Marked *ABN*(09/13/20 2:59 PM)[facility] [id number] 20:59:00 Test Item Value Reference Range Interpretation Comments UA Spec Grav (test code = UA Spec 1.027 1 Grav) [facility] [id number] 20:59:00 Test Item Value Reference Range Interpretation Comments UA pH (test code = UA pH) 5.0 1 5.0-8.0 [facility] [id number] 20:59:00Negative *NA*(09/13/20 2:59 PM) [facility] ZKMNL3463-05-26 20:59:00Negative (09/13/20 2:59 PM) [facility] [id number] 20:59:002.0[facility] [id number] 20:59:00Positive *ABN*(09/13/20 2:59 PM)[facility] [id number] 20:59:00Moderate *ABN*(09/13/20 2:59 PM)[facility] [id number] 20:59:50450Fgqhjlwn [facility]UR[facility] AND WFCYH4361-73-23 20:59:0018 [facility] [id number] 20:59:0049[facility] [id number] 20:59:0049[facility] [id number] 20:59:00 Teresa *ABN*(09/13/20 2:59 PM)[facility] [id number] 20:59:00 Marked *ABN*(09/13/20 2:59 PM)[facility] [id number] 20:59:00 Test Item Value Reference Range Interpretation Comments UA Spec Grav (test code = UA Spec 1.027 1 Grav) [facility] [id number] 20:59:00 Test Item Value Reference Range Interpretation Comments UA pH (test code = UA pH) 5.0 1 5.0-8.0 [facility] [id number] 20:59:00Negative *NA*(09/13/20 2:59 PM) [facility] [id number] 20:59:00Negative (09/13/20 2:59 PM) [facility] [id number] 20:59:002.0[facility] [id number] 20:59:00Positive *ABN*(09/13/20 2:59 PM)[facility] [id number] 20:59:00Moderate *ABN*(09/13/20 2:59 PM)[facility] KRRWK0314-15-23 20:59:51875Hstyhrzl [facility]annUR[facility] AND [id number] 20:59:0018 [facility]CHE[facility] [id number] 19:51:0091[facility]annCHEM PANEL 2020-09-13 19:51:0014[facility]annCHE[facility] OVFDN1993-15-54 19:51:000.68[facility]CHE[facility] QOJFL9219-28-30 19:51:30427Vhqjaazx HermannCHEM MQDPC1994-13-17 19:51:004.1[facility] LHGIB1524-19-06 19:51:0095[facility] [id number] 19:51:0032[facility]annCHE[facility] LRIJW0997-32-31 19:51:008.7 [facility] [id number] 19:51:007.4[facility]annCHEM PANEL 2020-09-13 19:51:003.2[facility]annCHE[facility] WNQGZ3603-39-01 19:51:0037[facility]annCHE[facility] [id number] 19:51:0048[facility]CHE[facility] ZBLML0174-81-43 19:51:0072[facility]annCHE[facility] JOIBO7673-99-86 19:51:000.4[facility]CHE[facility] DPQUR7483-19-96 19:51:007.1[facility]annCHE[facility] ASIEQ9083-18-43 19:51:00 Test Item Value Reference Range Interpretation Comments B/C Ratio (test code = B/C Ratio) 21 01-08 [facility] [id number] 19:51:004.2[facility]annCHE[facility] PANEL 2020-09-13 19:51:00 Test Item Value Reference Range Interpretation Comments A/G Ratio (test code = A/G Ratio) 0.8 1 0.7-1.6 [facility] [id number] 19:51:61849Ycigdxzz HermannCHEM PANEL 2020-09-13 19:51:410433Iyhuzoco HermannCHEM [id number] 19:51:0024.0[facility]annCHE[facility] RGAWQ8693-40-94 19:51:002.6[facility] HrvqqdkPVZJWDPHSLIDG3079-03-63 19:51:00Negative *NA*(09/13/20 1:51 PM)[facility] SuwybrhEBQGSEUGIP1851-59-18 19:51:007.5[facility] TksilzwZWSPUDPMCZ0518-70-43 19:51:004.01[facility] [place] ALALCXDGCH2296-07-56 19:51:007.8[facility] LpgvisvMWZVUOBEJM0884-37-95 19:51:00 24.9[facility] YznxlypYLDWZPYBCD9937-59-67 19:51:0062.2[facility]annHEMATOLOGY 2020-09-13 19:51:00 Test Item Value Reference Range Interpretation Comments MCH (test code = MCH) 19.6 pg 27.0-31.0 [facility] LmqdewvWCMZTEYUTV6764-56-01 19:51:0031.5[facility]annHEMATOLOGY 2020-09-13 19:51:0022.6[facility] JewbdtyIHZPULFSWM5532-73-98 19:51:89835Nbydjght KddjeahQRCWILJEDW7011-07-24 19:51:008.1[facility] EozduknHYGAHUXKFU2172-54-47 19:51:00See Note (09/13/20 1:51 PM)[facility] OtyznryESIXUCZMOL9243-27-31 19:51:00 Normal (09/13/20 1:51 PM)[facility] TishgchABLYLNCBSL3896-66-05 19:51:0075.9 [facility] KpuskqgYYNEBIYKKJ0290-08-60 19:51:0013.6[facility] HermannHEMATOLOGY 2020-09-13 19:51:007.4[facility] JksxtftFPRATJNGHC9757-00-21 19:51:002.6[facility] PoulgjeCYYQWVBTWT0911-43-66 19:51:000.5[facility] VersflcYZUEIVFVLB5833-30-08 19:51:005.7[facility] IfkvzmbWSOOSAKIXI2805-85-30 19:51:001.0[facility] BCBWVIRMOZ1978-32-23 19:51:000.6[facility] XwkadubVNNQUVCWHK4177-88-72 19:51:000.2 [facility] ZlbvmboJGPXYKJRTM0650-72-94 19:51:002+ *ABN*(09/13/20 1:51 PM)[facility] NhraysjKRWIXFBAFX1277-92-36 19:51:002+ *ABN*(09/13/20 1:51 PM)[facility] RRWBSFJXZG1579-38-40 19:51:001+ (09/13/20 1:51 PM)[facility]annCHEM PANEL 2020-09-13 19:51:0091[facility] HermannCHEM RAJBD7059-23-62 19:51:0014[facility]annCHEM NMVGR9918-07-47 19:51:000.68[facility] HermannCHEM CSSRU3552-80-41 19:51:54277Gofqcskc HermannCHEM QPRKC1631-90-94 19:51:004.1[facility]annCHEM XPYNN9388-61-84 19:51:0095[facility]annCHEM EKXMA8933-44-56 19:51:0032 [facility]annCHE[facility] PATWJ9813-65-57 19:51:008.7[facility]annCHEM PANEL 2020-09-13 19:51:007.4[facility]annCHEM JZRFK1126-26-35 19:51:003.2[facility]annCHEM OSNJO6866-47-24 19:51:0037[facility]annCHEM CQXIL6548-40-49 19:51:0048[facility]annCHEM GOIES0284-20-60 19:51:0072[facility]annCHEM EBNPH7751-03-87 19:51:000.4[facility]annCHEM ZPRVC4069-43-36 19:51:007.1 [facility]annCHEM EQDOA2579-19-33 19:51:00 Test Item Value Reference Range Interpretation Comments B/C Ratio (test code = B/C Ratio) 21 1 6-25 [facility]annCHEM NNYGX3654-46-49 19:51:004.2[facility]annCHEM PANEL 2020-09-13 19:51:00 Test Item Value Reference Range Interpretation Comments A/G Ratio (test code = A/G Ratio) 0.8 1 0.7-1.6 [facility]annCHE[facility] IAKJU8230-72-47 19:51:92224Iqzpmfax HermannCHEM PANEL 2020-09-13 19:51:350578Zfoenbps [facility]annCHEM OXLFB8043-54-31 19:51:0024.0[facility]annCHEM BZDHM8470-56-13 19:51:002.6[facility] QndeulnQJNRLCDIJDJWV5661-85-36 19:51:00Negative *NA*(09/13/20 1:51 PM)[facility] UaznuihWDIVYFYURD9636-36-48 19:51:007.5[facility] KhfhyerIGQDLCFLGY2809-13-19 19:51:004.01[facility] GGCZQQNGUY4072-98-48 19:51:007.8[facility] EfzvcszLPCEFNPNOM2190-19-71 19:51:00 24.9[facility] DxtdycfTPTTJEUNGR6139-44-98 19:51:0062.2[facility]annHEMATOLOGY 2020-09-13 19:51:00 Test Item Value Reference Range Interpretation Comments MCH (test code = MCH) 19.6 pg 27.0-31.0 [facility] IgclyceTAZCKZECNY8342-80-51 19:51:0031.5[facility]annHEMATOLOGY 2020-09-13 19:51:0022.6[facility] YjfegwsDEPPZZPDRT9816-00-58 19:51:81433Ctgwkhbh DrsrnijBBCNXABEJL7089-59-32 19:51:008.1[facility] DqxieftFXOQRPKJWJ7623-07-84 19:51:00See Note (09/13/20 1:51 PM)[facility] YkzxkguJZLWSCGMDV6207-13-09 19:51:00 Normal (09/13/20 1:51 PM)[facility] GhcqmggWPEKZYWVKV3682-91-22 19:51:0075.9 [facility] KtsaiygQWRMEZUXMG5458-21-39 19:51:0013.6[facility]annHEMATOLOGY 2020-09-13 19:51:007.4[facility] DqhlgeqZWZNBXCPXT1781-81-94 19:51:002.6[facility] DtxiffxRYYJIJMUPU7723-91-30 19:51:000.5[facility] WcqgmndNYABLBEMML1284-56-43 19:51:005.7[facility] BkppulpWWYQICETTI6138-98-14 19:51:001.0[facility] [place] RMQRUOSOET7264-12-09 19:51:000.6[facility] SwosisjHHFVTGNPOG3462-68-74 19:51:000.2 [facility] JjfxtptWXHLZQHFZF1853-27-05 19:51:002+ *ABN*(09/13/20 1:51 PM)[facility] AodbligUNYIGANOEI6054-77-29 19:51:002+ *ABN*(09/13/20 1:51 PM)[facility] SPZUTAKZJG8079-55-82 19:51:001+ (09/13/20 1:51 PM)[facility]annCHEM PANEL 2020-09-13 19:51:0091[facility] HermannCHEM BKKWV6458-41-63 19:51:0014[facility] HermannCHEM KFXHL3728-62-09 19:51:000.68[facility]annCHEM RSYWO0836-27-74 19:51:99911Pplwhddr HermannCHEM HEHRZ3715-44-15 19:51:004.1[facility]annCHEM SLNKK0300-62-16 19:51:0095[facility]annCHEM FKMQR4393-55-25 19:51:0032 [facility]annCHE[facility] XYFMA2018-89-41 19:51:008.7[facility]annCHEM PANEL 2020-09-13 19:51:007.4[facility] HermannCHEM BWUTZ4926-79-24 19:51:003.2[facility]annCHEM LVVIS5796-15-62 19:51:0037[facility]annCHEM RWNAP2319-62-76 19:51:0048[facility]annCHEM GCPUW5455-43-86 19:51:0072[facility]annCHEM RRFVW7524-48-20 19:51:000.4[facility] HermannCHEM HQHRK4595-84-47 19:51:007.1 [facility]annCHEM LXONP0212-09-17 19:51:00 Test Item Value Reference Range Interpretation Comments B/C Ratio (test code = B/C Ratio) 21 1 6-25 [facility]annCHEM VVFMZ7779-43-89 19:51:004.2[facility] HermannCHEM PANEL 2020-09-13 19:51:00 Test Item Value Reference Range Interpretation Comments A/G Ratio (test code = A/G Ratio) 0.8 1 0.7-1.6 [facility]annCHEM KJCHW7050-41-48 19:51:51283Lnrvynto HermannCHEM PANEL 2020-09-13 19:51:355560Skibiyot HermannCHEM VSZFT4359-65-63 19:51:0024.0[facility] HermannCHEM WAREI5072-25-98 19:51:002.6[facility] FxfgchcOURCGNKQARZIL8538-33-61 19:51:00Negative *NA*(09/13/20 1:51 PM)[facility] AlkmsapHBVCAJGWFJ4985-76-38 19:51:007.5[facility] ItknyjtZAUTYKBQWP6671-76-20 19:51:004.01[facility] [place] EAIMMGZGRR3644-03-85 19:51:007.8[facility] MwgpxrlBIBCJSJPWE8148-64-89 19:51:00 24.9[facility] UlpzrneKGKWCXFDYL5381-32-42 19:51:0062.2[facility] HermannHEMATOLOGY 2020-09-13 19:51:00 Test Item Value Reference Range Interpretation Comments MCH (test code = MCH) 19.6 pg 27.0-31.0 [facility] JxivumcGMRTIJVPFP0673-92-79 19:51:0031.5[facility] HermannHEMATOLOGY 2020-09-13 19:51:0022.6[facility] ZasmxubYWSPLJKQTM1330-55-31 19:51:06047Bvqunkux UaxygbePRCMJOSFBC5966-87-09 19:51:008.1[facility] ZeolafiUPEGRIPCQF4503-58-69 19:51:00See Note (09/13/20 1:51 PM)[facility] NgdirocCKODXUUNGM6757-04-39 19:51:00 Normal (09/13/20 1:51 PM)[facility] WfmmkwjSSHWFRRVFA5312-99-72 19:51:0075.9 [facility] LoaslwtIHIAMCSRSE6316-90-57 19:51:0013.6[facility] HermannHEMATOLOGY 2020-09-13 19:51:007.4[facility] CcdkwumMWSUYHFGIG2632-91-01 19:51:002.6[facility] CnpbzukXSSVNUXVMS6904-90-04 19:51:000.5[facility] OhomajqCREZJXAEGC1361-07-70 19:51:005.7[facility] QzusndgGCFQFTIHKH0097-04-18 19:51:001.0[facility] GMJEERINYZ0165-86-49 19:51:000.6[facility] TpxlneyGGEBQHJBJC1342-11-74 19:51:000.2 [facility] KlbivwqVQHAIFQJRT4919-59-12 19:51:002+ *ABN*(09/13/20 1:51 PM)[facility] MuhrubbQBKFDUSHRK5543-73-44 19:51:002+ *ABN*(09/13/20 1:51 PM)[facility] EUJAAWHLQQ5828-15-75 19:51:001+ (09/13/20 1:51 PM)[facility] HermannURINALYSIS 2019-12-21 21:09:00 Test Item Value Reference Range Interpretation Comments APPEARANCE (test code = Hazy Clear A 1313822505) COLOR (test code = Yellow Yellow 2222883854) PH (test code = 4.8-8.0 7543901659) SP GRAVITY (test code = 1.003-1.030 5842654441) GLU U QUAL (test code = Normal Normal 5011317332) BLOOD (test code = Negative Negative 3090554658) KETONES (test code = Negative Negative 4658418745) PROTEIN (test code = Negative Negative 2887-8) UROBILIN (test code = Normal Normal 6545692028) BILIRUBIN (test code = Negative Negative 1370477159) NITRITE (test code = Positive Negative A 1527478582) LEUK NIMESH (test code = 250/uL Negative A 9202944982) RBC/HPF (test code = See_Comment H [Autom ated message] 4768589428) The system [employer] generated this result transmitted ref erence range: 0 - 3 HP F. The reference range was not used to int erpret this result as normal/abnormal . WBC/HPF (test code = See_Comment H [Autom ated message] 6386592082) The system [employer] generated this result transmitted ref erence range: 0 - 5 HP F. The reference range was not used to int erpret this result as normal/abnormal . BACTERIA (test code = Many Negative A 2973398421) MUCOUS (test code = Marked Negative LPF A 8260364380) SQ EPITH (test code = HPF 4010965635) Lab Interpretation (test Abnormal code = 49652-4) [facility] VW KZKMT1215-79-92 21:04:11 No acute intrathoracic abnormality, specifically no detectable radiographicfindings to suggest COVID-19 pneumonia. Disclaimer: Generally, the findings on chest imaging in COVID-19 are notspecific, and overlap with other infections, including influenza, H1N1,SARS and MERS.According to the Centers forDisease Control (CDC) and recent statement ofthe [employer], viral testing remains the [...] Disease Control (CDC) and recent statement ofthe [employer], viral testing remains the only specificmethod of diagnosis. Confirmation with the viral test is required, even ifradiologic findings are suggestive of COVID-[address]Preliminary Report Dictated by Resident: Jud Zuluaga, Gina Morales MD., have reviewed this study and agree with the abovereport.[facility]. METABOLIC PANEL (66702)2019-12-21 20:58:00 Test Item Value Reference Range Interpretation Comments NA (test code = 135 mmol/L 135-145 8412099968) K (test code = 2.9 mmol/L 3.5-5 LL 7089433388) CL (test code = 97 mmol/L 98-108 L 7028397519) CO2 TOTAL (test code = 27 mmol/L 23-31 9135459862) AGAP (test code = 2-16 8220167198) BUN (test code = 7 mg/dL 7-23 6863338461) GLUCOSE (test code = 97 mg/dL 70-110 1963428688) CREATININE (test code = 0.68 mg/dL 0.5-1.04 2106734418) TOTAL BILI (test code = 0.8 mg/dL 0.1-1.2 1915757328) CALCIUM (test code = 9.7 mg/dL 8.6-10.6 8078018256) T PROTEIN (test code = 8.5 g/dL 6.3-8.2 H 0205616795) ALBUMIN (test code = 4.9 g/dL 3.5-5 7525139568) ALK PHOS (test code = 67 U/L 34-122 3767193674) ALTv (test code = 13 U/L 5-35 1742-6) AST(SGOT) (test code = 27 U/L 13-40 7707407227) eGFR Calculation mL/min/1.73m2 (Non-) (test code = 9614653003) eGFR Calculation mL/min/1.73m2 () (test code = 9114277660) SONIA (test code = SONIA) Association of [...] tests). Lab Interpretation Abnormal (test code = 34938-1) [facility] (ID NOW RAPID TESTING)2019-12-21 20:55:00 Test Item Value Reference Range Interpretation Comments SARS-CoV-2 Rapid ID NOW Not Detected Not Detected (test code = 66207-4) SONIA (test code = SONIA) ID NOW COVID-19 Assay is an isothermal nucleic acid amplification test intended for the qualitative detection of nucleic acid from SARS-CoV-2 viral RNA in nasopharyngeal ([employer] AND [employer]ODUCTION SUPERVISOR) specimens. It is used under Emergency Use [...] indicated. Lab Interpretation Normal (test code = 90330-7) [facility]ervilleONURMiranda [id number] 20:52:00 Test Item Value Reference Range Interpretation Comments TROPONIN I (test <0.012 See_Comment [Automated code = 1886358230) message] The system which generated this result [...] ? Lab Interpretation Normal (test code = 97206-9) [facility] HEAD WO CMNSCUQE7320-10-45 20:49:05 No acute intracranial findings. Preliminary Report Dictated by Resident: Arely Gonzáles MD., have reviewed this study and [...] acute intracranial findings.Preliminary Report Dictated by Resident: Arely Lawrence MD., have reviewed this study and agree with the abovereport.[facility]NESIUM2020-06-06 20:41:00 Test Item Value Reference Range Interpretation Comments MAGNESIUM (test code = 8859204391) 1.7 mg/dL 1.7-2.4 Lab Interpretation (test code = Normal 68242-1) [facility]CBC WITH [id number] 20:41:00 Test Item Value Reference Range Interpretation [...] RDW-SD (test code = 44.2 fL 39-49.9 43038-0) RDW-CV (test code = 21.4 % 12-15.5 H 788-0) PLT (test code = See_Comment [Automated 777-3) message] The sy stem which generated this result transmitted reference range : 166 - 358 10*3/ ?L. The reference r yvonne was not used to interpret this result as normal/abnormal . MPV (test code = 9.8 fL 9.5-12.9 31664-1) NRBC/100 WBC (test See_Comment [Automat ed code = 8379434399) message] The system which generated this result transmitted reference range : 0.0 - 10.0 /100 WBCs. The refer ence range was not u sed to interpret th is result as normal/abnormal . NRBC x10^3 (test code <0.01 See_Comment [Auto mated = 9267091095) message] The s ystem which generated this result transmitted reference range : 10*3/?L. The reference range was not used to interpret this result as normal/abnormal . GRAN MAT (NEUT) % 83.6 % (test code = 770-8) IMM GRAN % (test code 0.70 % = 3149025158) LYMPH % (test code = 9.1 % 736-9) MONO % (test code = 5.9 % 5905-5) EOS % (test code = 0.3 % 713-8) BASO % (test code = 0.4 % 706-2) GRAN MAT x10^3(ANC) 7.88 10*3/uL 1.88-7.09 H (test code = 8708363932) IMM GRAN x10^3 (test 0.07 10*3/uL 0-0.06 H code = 3588326954) LYMPH x10^3 (test code 0.86 10*3/uL 1.32-3.29 L = 731-0) MONO x10^3 (test code 0.56 10*3/uL 0.33-0.92 = 742-7) EOS x10^3 (test code = 0.03 10*3/uL 0.03-0.39 711-2) BASO x10^3 (test code 0.04 10*3/uL 0.01-0.07 = 704-7) Lab Interpretation Abnormal (test code = 57062-1) [facility]IPASE2020-06-06 20:40:00 Test Item Value Reference Range Interpretation Comments LIPASE (test code = 6794297865) 65 U/L 0-220 Lab Interpretation (test code = Normal 21132-0) [facility]ervilleLactic Acid Whole [id number] 20:11:00 Test Item Value Reference Range Interpretation Comments LACTIC ACID (test code = 3.04 mmol/L 0.3-2.6 0436905988) [facility]ervillePOCT [id number] 20:09:00 Test Item Value Reference Range Interpretation Comments POCT PREG (test code = 1605) negative POCT PREG LOT # (test code = 3575) [id number] POCT PREG TEST DATE (test 02/14/2020 code = 3576) Lab Interpretation (test code = Normal 66613-5) [facility]
[2022-02-03] MEDS ORDERED: SMZ./TMP. 800/160 MG TABLET PO SCH (21:00)
--- NOTE | 2022-02-11 20:30 | P.DS ---
Admission Date: 02/01/22 Discharge Date: 02/03/22 Disposition: ROUTINE DISCHARGE Discharge Condition: GOOD Reason for Admission: UTI, hypokalemia, weakness Brief History of Present Illness: 36-year-old female with history of cirrhosis of the liver secondary to alcohol abuse, hypertension, history of opioid abuse presented to the emergency department for weakness. She was discharged from [facility] on 01/21/2022 with a prescription for Omnicef for UTI and has been at a drug alcohol recovery facility since her discharge. She was discharged from the drug alcohol facility yesterday around 4 PM, she felt extremely weak as if she cannot stand up and therefore presented to the emergency department for evaluation during her stay in the emergency department she was found to have significant hypokalemia as well as persistent urinary tract infection as she had not taken her antibiotics. Her initial blood pressure was low around 88 systolic although improved after IV fluids initial lactate was negative only met 1 out of 4 SIRS criteria with heart rate of 100. She is complaining of paresthesias of the lower extremities which she reports been going on for many months, reports up to 6 separate hospital visits for similar complaints without formal diagnosis. Will admit for further evaluation and management of UTI, weakness, hypokalemia. I have also added magnesium, phosphorus, INR levels. Hospital Course: Problem List UTI Hypokalemia Weakness Alcoholic cirrhosis of the liver History of alcohol/opioid abuse Tobacco abuse Patient was found to have UTI. Urine culture grew ESBL e.coli. Blood cultures remained negative. Her symptoms improved. appetite improved and was feeling better. Remained afebrile and without leukocytosis. Infectious Disease was consulted and recommended 10 day course of Bactrim. accounting advisory services manager set up appointment with her PCP next week. Recommend repeat UA/urine culture Patient stable for discharge home. She states she plans to check herself back into a substance dependence rehab. Physical exam GEN: Alert, oriented, NAD HEENT: Normal conjunctiva, sclera mild icterus CV: Regular rate and rhythm, no edema Pulm: Nonlabored respirations on room air ABD: Soft, nontender, nondistended Neuro: Normal speech, normal affect, bilateral lower extremity paresthesias Vital Signs/Physical Exam: Temp Pulse Resp BP Pulse Ox 97.5 F 83 16 110/66 97 02/03/22 11:56 02/03/22 11:56 02/03/22 11:56 02/03/22 11:56 02/03/22 11:56 Laboratory Data at Discharge: WBC 3.2 K/uL (4.3-10.9) L 02/03/22 04:45 Hgb 9.2 g/dL (12.0-15.0) L 02/03/22 04:45 Hct 27.4 % (36.0-45.0) L 02/03/22 04:45 Plt Count 160 K/uL (152-406) 02/03/22 04:45 PT 19.3 SECONDS (9.5-12.5) H 02/01/22 00:00 INR 1.73 02/01/22 00:00 Sodium 137 mmol/L (136-145) 02/03/22 04:45 Potassium Cancelled 02/03/22 09:00 BUN < 3 mg/dL (7-18) L 02/03/22 04:45 Creatinine 0.28 mg/dL (0.55-1.3) L 02/03/22 04:45 Glucose 98 mg/dL (74-106) 02/03/22 04:45 Phosphorus 2.2 mg/dL (2.5-4.9) L 02/03/22 04:45 Magnesium 1.9 mg/dL (1.8-2.4) 02/03/22 04:45 Total Bilirubin 1.9 mg/dL (0.2-1.0) H 02/03/22 04:45 AST 53 U/L (15-37) H 02/03/22 04:45 ALT 18 U/L (12-78) 02/03/22 04:45 Alkaline Phosphatase 159 U/L (45-117) H 02/03/22 04:45 Lipase 31 U/L (73-393) L 01/31/22 23:59 Home Medications: ARIPiprazole [Abilify Mycite] 10 mg PO BEDTIME 02/01/22 Folic Acid 1 mg PO DAILY 02/01/22 Furosemide [Lasix*] 20 mg PO DAILY 02/01/22 Lactulose 30 ml PO TID 02/01/22 Mvit-Mins/Folic Acid/Soy Isofl [One-A-Day Menopause Formula Tb] 1 tab PO DAILY 02/01/22 Spironolactone [Aldactone*] 25 mg PO DAILY 02/01/22 Thiamine HCl 100 mg PO DAILY 02/01/22 Trazodone [Desyrel*] 50 mg PO BEDTIME 02/01/22 Smz./Tmp. [Bactrim Ds 800 MG/160 MG*] 1 tab PO BID 10 Days #20 tab 02/03/22 New Medications: Smz./Tmp. [Bactrim Ds 800 MG/160 MG*] 1 tab PO BID 10 Days #20 tab Followup: NONE,NONE [Primary Care Provider] - Time spent managing pt's care (in minutes): 45
== END 2022-02-03 14:33 | disposition home or self-care (01) | DRG 690 ==
LOC: ER 21:49 → ERHOLD 02-01 03:16 → 2ND 02-01 03:21 → OBSVTOIN 02-01 15:54
PROVIDERS: ADMIT Hospitalist; ATTEND Hospitalist
DX: N39.0 Urinary tract infection, site not specified (principal); E46 Unspecified protein-calorie malnutrition; Z68.1 Body mass index [BMI] 19.9 or less, adult; E87.6 Hypokalemia; R53.1 Weakness; B96.20 Unspecified Escherichia coli [E. coli] as the cause of diseases classified elsewhere; K70.30 Alcoholic cirrhosis of liver without ascites; F17.210 Nicotine dependence, cigarettes, uncomplicated; F10.21 Alcohol dependence, in remission; F11.11 Opioid abuse, in remission; Z20.822 Contact with and (suspected) exposure to COVID-19
CPT/HCPCS: 36415; 71045; 80053; 81003; 81015; 81025; 83605; 83690; 83735; 84100; 84132; 85025; 85610; 87040; 87077; 87086; 87088; 87186; 93005; 96361; 96365; 96366; 96375; 97116; 97161; 99285; G0378; J1650; J3480; J7030; U0003

== ENCOUNTER 2022-02-11 08:51 | Emergency (ER) | payer OTHER ==
[2022-02-11 10:06] LABS: Absolute Lymphocytes (CBC) 1.4 K/uL (0.7-4.9); Hematocrit 34.5 % (36.0-45.0); Lymphocytes % 16.9 % (15.3-44.8); MCV 92.5 fL (80-100); RBC Red Blood Cell Count 3.72 M/uL (3.86-4.86)
[2022-02-11 10:23] LABS: ALT/SGPT 39 U/L (12-78); AST/SGOT 142 U/L (15-37); Alkaline Phosphatase 206 U/L (45-117); Bicarbonate 27 mmol/L (21-32); Bilirubin Total 2.2 mg/dL (0.2-1.0); Glomerular Filtration Rate 124 ml/min (=/>90); Glucose Level 146 mg/dL (74-106); Lipase 18 U/L (73-393); Magnesium 2.1 mg/dL (1.8-2.4); Phosphorus 2.3 mg/dL (2.5-4.9); Protein, Total 7.2 g/dL (6.4-8.2); Sodium Level 134 mmol/L (136-145)
[2022-02-11 10:25] LABS: BUN Blood Urea Nitrogen < 3 mg/dL (7-18)
[2022-02-11 10:40] LABS: Protime INR 1.66
[2022-02-11 11:55] LABS: Urine Blood Trace-lysed (Negative); Urine Glucose Trace (Negative); Urine Protein 2+ (Negative); Urine Specific Gravity >=1.030 (1.005-1.030)
[2022-02-11] MEDS ORDERED: POTASSIUM 25 MEQ EFFERV TAB ONE (12:13)
[2022-02-11 12:22] LABS: Urine Bacteria Loaded /HPF (<20); Urine RBC 21-50 /HPF (None Seen)
[2022-02-11 12:23] LABS: Urine Trichomonas Present /HPF (None Seen)
[2022-02-11] MEDS ORDERED: NA CHLORIDE 0.9% 1,000 ML ONE (13:03)
[2022-02-11] MEDS ORDERED: CEFTRIAXONE 1000 MG/VIAL ONE (13:03)
[2022-02-11] MEDS ORDERED: NA CHLORIDE 0.9% 250 ML ONE (13:03)
--- NOTE | 2022-02-11 13:04 | ER ---
Nurse's Notes [facility] Name: Divina Collazo Age: 36 yrs Sex: Female : 1985 Arrival Date: 02/11/2022 Time: 08:53 Bed 12 Private MD: Omid Frank Diagnosis: UTI/ Urinary tract infection, site not specified;Alcoholic cirrhosis of liver with ascites Presentation: 02/11 09:28 Chief complaint: Patient states: i was admitted a couple weeks ago for UTI and i wasn;t iw able to get my antibiotics til last night and now i'm throwing up and my feet are very swollen and my abdomen is distended, has hx of cirrhosis , last paracentesis was 4 months ago , swelling started 3 days ago. Coronavirus screen: At this time, the client does not indicate any symptoms associated with coronavirus-19. Ebola Screen: Patient negative for fever greater than or equal to 101.5 degrees Fahrenheit, and additional compatible Ebola Virus Disease symptoms Patient denies exposure to infectious person. Patient denies travel to an Ebola-affected area in the 21 days before illness onset. No symptoms or risks identified at this time. Initial Sepsis Screen: Does the patient meet any 2 criteria? No. Patient's initial sepsis screen is negative. Does the patient have a suspected source of infection? No. Patient's initial sepsis screen is negative. Risk Assessment: Do you want to hurt yourself or someone else? Patient reports no desire to harm self or others. Onset of symptoms was February 08, 2022. 09:28 Method Of Arrival: Ambulatory iw 09:28 Acuity: GABBY 3 iw Historical: - Allergies: 09:30 Darvocet-N 100; iw - Home Meds: 09:30 lisinopril 20 mg Oral tab 1 tab once daily [Active]; Suboxone [Active]; Lactulose Oral iw [Active]; Zoloft Oral [Active]; - PMHx: 09:30 cirrhosis of liver; diabetes mellitus; Enlarged Heart; Hypertensive disorder; iw - PSHx: 09:30 section; iw - Immunization history:: Adult Immunizations Client reports receiving the 2nd dose of the Covid vaccine. - Social history:: Smoking status: Patient reports the use of cigarette tobacco products, Patient uses alcohol, relapsed last night, normally drinks 10 mixed drinks per day . Screenin:11 Abuse screen: Denies threats or abuse. Nutritional screening: No deficits noted. bm7 Tuberculosis screening: No symptoms or risk factors identified. Fall Risk None identified. Assessment: 12:11 Reassessment: Patient and/or family updated on plan of care and expected duration. Pain bm7 level reassessed. Patient is alert, oriented x 3, equal unlabored respirations, skin warm/dry/pink. Vital Signs: 09:28 BP 115 / 79; Pulse 103; Resp 18; Temp 98.4; Pulse Ox 100% on R/A; Weight 45.22 kg; iw Height 5 ft. 5 in. (165.10 cm); 12:11 BP 108 / 65; Pulse 86; Resp 16; Pulse Ox 100% on R/A; Pain 2/10; bm7 13:08 BP 117 / 67; Pulse 78; Resp 16; Pulse Ox 100% on R/A; bm7 14:01 BP 112 / 75; Pulse 76; Resp 16; Pulse Ox 99% on R/A; Pain 2/10; bm7 09:28 Body Mass Index 16.59 (45.22 kg, 165.10 cm) iw ED Course: 08:53 Patient arrived in ED. mr 08:53 Omid Frank MD is Private Physician. mr 09:30 Triage completed. iw 09:32 Oneyda Vergraa FNP is [facility]. jh7 09:32 Arm band placed on. iw 09:33 Marbin Corea MD is Attending Physician. jh7 11:47 Mindy Eric, MATILDA is Primary Nurse. bm7 11:58 Assisted to bathroom. bm7 11:58 Urine collected: clean catch specimen, cloudy. bm7 12:11 No apparent distress. Resting quietly. Awaiting lab results. bm7 12:11 Patient has correct armband on for positive identification. Placed in gown. Bed in low bm7 position. Call light in reach. Side rails up X 1. Client placed on continuous cardiac and pulse oximetry monitoring. NIBP monitoring applied. Warm blanket given. 13:02 Gio Roe MD is Hospitalizing Provider. jh7 14:01 No provider procedures requiring assistance completed. IV discontinued, intact, bm7 bleeding controlled, No redness/swelling at site. Pressure dressing applied. Administered Medications: 12:07 Drug: Potassium Effervescent Tablet 50 mEq Route: PO; bm7 13:07 Follow up: Response: No adverse reaction bm7 13:07 Drug: Rocephin (cefTRIAXone) 1 grams Route: IV; Rate: 1 calculated rate; Site: right bm7 antecubital; 14:03 Follow up: IV Status: Completed infusion bm7 13:07 Drug: NS 0.9% 1000 ml Route: IV; Rate: 1 bolus; Site: right antecubital; bm7 14:02 Follow up: IV Status: Completed infusion; IV Intake: 1000ml bm7 13:24 Drug: Flagyl (metroNIDAZOLE) 500 mg Route: PO; bm7 14:02 Follow up: Response: No adverse reaction bm7 13:24 Drug: Zofran (Ondansetron) 4 mg Route: IVP; Site: right antecubital; bm7 14:02 Follow up: Response: No adverse reaction bm7 Medication: 12:11 VIS not applicable for this client. bm7 Intake: 14:02 IV: 1000ml; Total: 1000ml. bm7 Outcome: 13:03 Decision to Hospitalize by Provider. [facility] 13:49 Discharge ordered by MD. 7 14:01 Discharged to home ambulatory. bm7 14:01 Condition: improved 14:01 Discharge instructions given to patient, Instructed on discharge instructions, Demonstrated understanding of instructions, follow-up care. 14:03 Patient left the ED. 7 Signatures: Emily Arellano Briana Conti, RN MATILDA iw Mindy Eric RN MATILDA 7 Oneyda Vergara, MONKEY KEEPER MONKEY KEEPER [facility] Corrections: (The following items were deleted from the chart) 09:32 09:30 Home Meds: Elavil; [facility] 09:32 09:30 Home Meds: hydroxyzine HCl 25 mg Oral tab 1 tab 3 times per day; [facility]
--- NOTE | 2022-02-11 13:04 | EDPHYS ---
Physician Documentation [facility] Name: Divina Collazo Age: 36 yrs Sex: Female : 1985 Arrival Date: 02/11/2022 Time: 08:53 Bed 12 Private MD: Omid Frank ED Physician Marbin Corea HPI: 02/11 09:35 This 36 yrs old Female presents to ER via Ambulatory with complaints of Feet Swelling, jh7 Abdominal Swelling. 09:35 The patient presents with abdominal distention that is diffuse. Onset: The jh7 symptoms/episode began/occurred 3 day(s) ago. Patient presents to the ER complaining of bilateral ankle swelling and abdominal swelling worsening over the past 3 days. States that she was admitted 2 weeks ago and was diagnosed with a UTI. She reports that she was unable to potato picker her antibiotics until last night. Denies any urinary symptoms at this time. Reports that she just got a letter from her PCP clearing her to start rehab for alcohol abuse. Reports that she relapsed last night and drank 1 twisted tea. Denies any fever.. Historical: - Allergies: 09:30 Darvocet-N 100; iw - Home Meds: 09:30 lisinopril 20 mg Oral tab 1 tab once daily [Active]; Suboxone [Active]; Lactulose Oral iw [Active]; Zoloft Oral [Active]; - PMHx: 09:30 cirrhosis of liver; diabetes mellitus; Enlarged Heart; Hypertensive disorder; iw - PSHx: 09:30 section; iw - Immunization history:: Adult Immunizations Client reports receiving the 2nd dose of the Covid vaccine. - Social history:: Smoking status: Patient reports the use of cigarette tobacco products, Patient uses alcohol, relapsed last night, normally drinks 10 mixed drinks per day . ROS: 09:35 Constitutional: Negative for fever, chills, and weight loss, ENT: Negative for injury, jh7 pain, and discharge, Neck: Negative for injury, pain, and swelling, Respiratory: Negative for shortness of breath, cough, wheezing, and pleuritic chest pain, Back: Negative for injury and pain. 09:35 Neuro: Negative for headache, weakness, numbness, tingling, and seizure. 09:35 Cardiovascular: Positive for edema, Negative for chest pain, orthopnea, palpitations. 09:35 Abdomen/GI: Positive for abdominal distension, Negative for abdominal pain, nausea, vomiting, and diarrhea, black/tarry stool, rectal bleeding. 09:35 Skin: Positive for jaundice. 09:35 All other systems are negative. Exam: 09:35 Constitutional: This is a well developed, well nourished patient who is awake, alert, jh7 and in no acute distress. ENT: Nares patent. No nasal discharge, no septal abnormalities noted. Tympanic membranes are normal and external auditory canals are clear. Oropharynx with no redness, swelling, or masses, exudates, or evidence of obstruction, uvula midline. Mucous membranes moist. Cardiovascular: Regular rate and rhythm with a normal S1 and S2. No gallops, murmurs, or rubs. Normal PMI, no JVD. No pulse deficits. Respiratory: Lungs have equal breath sounds bilaterally, clear to auscultation and percussion. No rales, rhonchi or wheezes noted. No increased work of breathing, no retractions or nasal flaring. Back: No spinal tenderness. No costovertebral tenderness. Full range of motion. Neuro: Awake and alert, GCS 15, oriented to person, place, time, and situation. Motor strength 5/5 in all extremities. Sensory grossly intact. Normal gait. 09:35 Cardiovascular: Edema: ankle edema, that is moderate. 09:35 Abdomen/GI: Inspection: distension, that is severe, in the abdomen diffusely, Palpation: nontender, in the abdomen diffusely. 09:35 Skin: Appearance: Color: jaundiced. Vital Signs: 09:28 BP 115 / 79; Pulse 103; Resp 18; Temp 98.4; Pulse Ox 100% on R/A; Weight 45.22 kg; iw Height 5 ft. 5 in. (165.10 cm); 12:11 BP 108 / 65; Pulse 86; Resp 16; Pulse Ox 100% on R/A; Pain 2/10; bm7 13:08 BP 117 / 67; Pulse 78; Resp 16; Pulse Ox 100% on R/A; bm7 14:01 BP 112 / 75; Pulse 76; Resp 16; Pulse Ox 99% on R/A; Pain 2/10; bm7 09:28 Body Mass Index 16.59 (45.22 kg, 165.10 cm) iw MDM: 09:33 Patient medically screened. jh7 13:10 Differential diagnosis: Hepatitis, Pyelonephritis, urinary tract infection. Data [facility] reviewed: vital signs, nurses notes, lab test result(s), radiologic studies, plain films. Data interpreted: Pulse oximetry: is 100 %. Interpretation: normal. Counseling: I had a detailed discussion with the patient and/or guardian regarding: the historical points, exam findings, and any diagnostic results supporting the discharge/admit diagnosis, the need for further work-up and treatment in the hospital. ED course: Patient was admitted under inpatient status to Dr. Roe. Informed the patient of need for admission and answered all questions.. 13:50 ED course: Consulted with Dr. Bateman. He assessed the patient in the ER and reviewed [facility] the patient's lab work. He stated that the patient was stable for discharge. She should continue her antibiotics that she received last night for the UTI. She needs to follow-up with her PCP for management of her cirrhosis. If her symptoms worsen, or she develops any new concerning symptoms, she may return to the ER for further care.. 02/11 09:42 Order name: CBC with Diff; Complete Time: 11:01 [facility] 02/11 09:42 Order name: CMP; Complete Time: 10:30 [facility] 02/11 09:42 Order name: Lipase; Complete Time: 10:30 [facility] 02/11 09:42 Order name: Urine Microscopic Only; Complete Time: 12:28 [facility] 02/11 09:42 Order name: Magnesium; Complete Time: 10:30 [facility] 02/11 09:42 Order name: Phosphorus; Complete Time: 10:30 [facility] 02/11 09:42 Order name: PT-INR; Complete Time: 10:41 [facility] 02/11 09:42 Order name: ETOH Level; Complete Time: 10:30 [facility] 02/11 11:56 Order name: Urine Dipstick-Ancillary; Complete Time: 12:15 [facility] 02/11 11:57 Order name: Urine --Ancillary (enter results); Complete Time: 12:33 02/11 12:26 Order name: Urine Culture [facility] 02/11 09:42 Order name: IV Saline Lock; Complete Time: 11:57 [facility] 02/11 09:42 Order name: Labs collected and sent; Complete Time: 11:57 [facility] 02/11 09:42 Order name: Urine Dipstick-Ancillary (obtain specimen); Complete Time: 11:58 [facility] Administered Medications: 12:07 Drug: Potassium Effervescent Tablet 50 mEq Route: PO; [facility] 13:07 Follow up: Response: No adverse reaction [facility] 13:07 Drug: Rocephin (cefTRIAXone) 1 grams Route: IV; Rate: 1 calculated rate; Site: right bm7 antecubital; 14:03 Follow up: IV Status: Completed infusion [facility] 13:07 Drug: NS 0.9% 1000 ml Route: IV; Rate: 1 bolus; Site: right antecubital; 7 14:02 Follow up: IV Status: Completed infusion; IV Intake: 1000ml [facility] 13:24 Drug: Flagyl (metroNIDAZOLE) 500 mg Route: PO; [facility] 14:02 Follow up: Response: No adverse reaction [facility] 13:24 Drug: Zofran (Ondansetron) 4 mg Route: IVP; Site: right antecubital; [facility] 14:02 Follow up: Response: No adverse reaction [facility] Disposition Summary: 02/11/22 13:49 Discharge Ordered Location: Home(02/11/22 13:49) [facility] Problem: an ongoing problem(02/11/22 13:49) [facility] Symptoms: are unchanged(02/11/22 13:49) [facility] Condition: Stable(02/11/22 13:49) [facility] Diagnosis - UTI/ Urinary tract infection, site not specified(02/11/22 13:49) [facility] - Alcoholic cirrhosis of liver with ascites(02/11/22 13:49) [facility] Followup: [facility] - With: Private Physician - When: 2 - 3 days - Reason: Continuance of care Discharge Instructions: - Discharge Summary Sheet [facility] - Cirrhosis [facility] - Paracentesis [facility] - Urinary Tract Infection, Adult [facility] Forms: - Medication Reconciliation Form [facility] - Thank You Letter [facility] - Antibiotic Education [facility] Signatures: Dispatcher [employer] Briana Kelley RN RN iw Mindy Eric RN RN 7 Oneyda Vergara, CARTON MAKING MACHINE OPERATOR CARTON MAKING MACHINE OPERATOR [facility] Corrections: (The following items were deleted from the chart) 09:32 09:30 Home Meds: Elavil; [facility] 09:32 09:30 Home Meds: hydroxyzine HCl 25 mg Oral tab 1 tab 3 times per day; iw iw 13:49 13:03 Inpatient Admission [place] [id number] 13:49 13:03 Gio Roe [place] [address] 13:49 13:03 Telemetry/MedSurg (Inpatient) [place] [address] 13:49 13:03 Stable [place] [id number] 13:49 13:03 [place] [id number] 13:49 13:03 are unchanged [place] [address] 13:49 13:03 Standard [place] [id number] 13:49 13:03 [place] [id number] 13:49 13:03 Alcoholic cirrhosis of liver with ascites [place] [address] 13:49 13:03 Alcohol abuse [place] [address] 13:49 13:03 UTI/ Urinary tract infection, site not specified [place] [id number]
[2022-02-11] MEDS ORDERED: ONDANSETRON 4 MG/2 ML VIAL ONE (13:29)
[2022-02-11] MEDS ORDERED: metroNIDAZOLE 500 MG TABLET ONE (13:29)
[2022-02-11 14:09] VITALS: TEMP 98.4
[2022-02-11 14:15] VITALS: BP 112/75; O2SAT 99
== END 2022-02-11 14:03 | disposition home or self-care (01) ==
LOC: ER 08:51
DX: K70.31 Alcoholic cirrhosis of liver with ascites (principal); N39.0 Urinary tract infection, site not specified; I10 Essential (primary) hypertension; E11.9 Type 2 diabetes mellitus without complications; F17.210 Nicotine dependence, cigarettes, uncomplicated; Z88.5 Allergy status to narcotic agent
CPT/HCPCS: 87088; 85025; 87086; 36415; 80320; 83735; 81025; 84100; 85610; 83690; 80053; J7050; J7030; J2405; 81003; 81015; 87077; 87186; 96365; 96375; 99283

== ENCOUNTER 2022-02-24 22:05 | Inpatient (IN) | payer OTHER ==
--- OUTSIDE RECORDS SUMMARY | 2022-02-24 22:13 | XMS REPORT | Continuity of Care Document ---
:1985 Author Organization [facility] t Address [address] [place] [address] Care Team Providers Name Role Phone Pcp, Patient Does Not Have A Primary Care Physician [phone] Molly Deleon MD Attending Clinician Carlitos Hernandez Attending Clinician Unavailable HEBER TOWNSEND Attending Clinician Unavailable Farhad Shin Attending Clinician Unavailable Physician, No Primary or Family Attending Clinician Unavaila Alexis Hoff Attending Clinician Unavailable Loree Vega MD Attending Clinician HALNIA ESPARZA Attending Clinician Unavailable Morris Leon DO Attending Clinician ARJUN COTTON Attending Clinician Unavailable Farhad Shin Admitting Clinician Unavailable Physician, No Primary or Family Admitting Clinician Unavaila NUBIA Bledsoe Admitting Clinician Unavailable ARJUN COTTON Admitting Clinician Unavailable Payers Payer Name Policy Type Policy Number Effective Date Expiration Date Benigno sena [facility], [facility] [id number] 2020 PLAN STAR 00:00:00 [facility], [facility] [id number] 2020 PLAN STAR 00:00:00 [facility] [id number] Universit y of JAILBRAZORIA 00:00:00 [facility] [id number] [address] [address]Wtrejm Problems Condition Condition Condition Status Onset Resolution Last Treating Co mments Source Name Details Category Date Date Treatment Clinician Date Alcohol Alcohol Disease Active Overview: Univ ers induced induced -17 Formattin ity o f fatty fatty 00:00: g of this [place] liver liver 00 note Medical might be [...] 4-17 it y of truction truction 00:00: [place] of colon of colon 00 [facility] Alcohol Alcohol Disease Active Univers abuse abuse 4-17 ity of 00:00: [facility] Elevated Elevated Disease Active Unive rs liver liver 4-17 ity of function function 00:00: [place] tests tests [facility] Hyponatrem Hyponatrem Disease Active U nivers ia ia 4-17 ity of 00:00: [place] [facility] Dietary Dietary Disease Active Univers folate folate 4-17 [place] of deficiency [place] anemia [facility] Microcytic Microcytic Disease Active U nivers hypochromi hypochromi 4-17 it y of c anemia c anemia 00:00: [place] [facility] Elevated Elevated Disease Active Unive rs INR INR 4-17 ity of 00:00: [place] 00 Medical Branch Thrombocyt Thrombocyt Disease Active U autumn openia openia 4-17 [place] of concurrent [place] and with and 00 Medica l due to due to Branch alcoholism alcoholism Polysubsta Polysubsta Disease Recurre Univers nce abuse nce abuse nce 4-17 ity of 00:00: [place] 00 Medical Branch Generalize Generalize Disease Active U nivers d d 4-16 [place]y of continuous continuous [place] abdominal abdominal 00 Medi george pain pain Branch ABD PAIN ABD PAIN Diagnosis Active 2020-09-13 Memoria Active 09-13 13:06:00 l 09/13/2020 00:00: Rehan shields [facility] [place] CIRRHOSIS CIRRHOSIS Diagnosis Active 2020-09-14 Memoria Active 09-13 15:28:00 l 09/13/2020 00:00: Rehan shields [facility] 00 [place] FOOT PAIN FOOT PAIN Diagnosis Active 2020-01-27 Memoria Active 01-26 17:42:00 l 01/27/2020 00:00: Rehan n [facility] 00 [place] UNSPECIFIE Diagnosis Active 2020-09-14 Memoria D UNSPECIFIE 15:28:00 l CIRRHOSIS D [place] OF LIVER CIRRHOSIS OF LIVER Active [facility] History of Past Illness Condition Condition Condition Status Onset Resolution Last Treating Co mments Source Name Details Category Date Date Treatment Clinician Date Contusion Contusion Problem 2020-01-29 2020-01-29 Memoria of left of left 01-26 22:22:21 22:22:21 l foot, foot, 17:00: [place] initial initial 00 encounter encounter 01/27/2020 01/29/[address] [facility] Allergies, Adverse Reactions, Alerts Allergy Allergy Status Severity Reaction(s) Onset Inactive Treating Comm ents Source Name Type Date Date Clinician Unable DA Active U [facility] to 01-21 Assess 00:00: 00 propoxyp DA Active U Unknown [facility] hene 01-21 00:00: 00 acetamin DA Active U Unknown [facility] ophen 01-21 00:00: 00 No Known DA Active U [facility] Allergie 6-15 Clear s 00:00: Joshi 00 [facility] Propoxyp Propensi Active Hives Univer s hene ty to 8-06 ity of N-Acetam adverse 00:00: [place] inophen reaction 00 Medical s Branch Darvocet Darvocet Active Anujori a -N 100 -N 100 l [place] Social History Social Habit Start Date Stop Date Quantity Comments Source History of Smokes tobacco University of tobacco use daily [facility] Exposure to 2022-01-29 2022-02-08 Not sure University SARS-CoV-2 00:00:00 15:20:00 [facility] (event) Branch Tobacco use and 2022-02-08 2022-02-08 Smokeless tobacco Un iversity of exposure 00:00:00 00:00:00 non-user [facility] Social History 2020-09-14 2020-09-14 [facility] 03:06:05 03:06:05 Sex Assigned At [birth year] [facility] 00:00:00 00:00:00 Smoking Status Start Date Stop Date Source Tobacco smoking consumption [facility] ealt unknown Smokes tobacco daily 2022-02-08 00:00:00 [facility] ity of [facility] Medications Ordered Filled Start Stop Current Ordering Indication Dosage Frequency Signature Comments Components Source Medication Medication Date Date Medication? Clinician (SIG) Name Name omeprazole Yes 40mg Take 40 mg U nivers 40 mg 7-26 by mouth ity of capsule 15:44: in the [place] 12 morning. Medical Branch midodrine 5 Yes 5mg Take 5 mg U nivers mg tablet 7-26 by mouth ity of 15:44: in the [place] 12 morning Medical and 5 mg Branch at noon and 5 mg in the evening. lactulose Yes 15mL Take 15 mL Un frida 10 gram/15 7-26 by mouth ity o f mL solution 15:44: [place]. [place] ARIPiprazol Yes 10mg Take 10 mg Univers e (ABILIFY) 7-26 by mouth ity of 10 mg 15:44: in the [place] [facility] 12 morning. Medical Branch traZODone Yes 50mg Take 50 mg Un frida 50 mg 7-26 by mouth ity of tablet 15:44: at [place] [address] bedtime. Medical Branch sulfamethox 2021-0 Yes 1{tbl} Take 1 Un frida azole-trime 7-26 tablet by ity of thoprim 15:44: mouth in [place] 800-160 mg 12 the Medical per tablet morning Branch and 1 tablet in the evening. buprenorphi 2021-[address] 8 mg Univers ne-naloxone 7-26 under the ity of 8-2 mg 15:44: tongue. [place] sublingual Medical film Branch omeprazole 2021-0 Yes 40mg Take 40 mg U nivers 40 mg 7-26 by mouth ity of capsule 15:44: in the [place] [address] morning. Medical Branch midodrine 5 2021-0 Yes 5mg Take 5 mg U nivers mg tablet 7-26 by mouth ity of 15:44: in the [place] [address] morning Medical and 5 mg Branch at noon and 5 mg in the evening. lactulose 2021-0 Yes 15mL Take 15 mL Un frida 10 gram/15 7-26 by mouth ity o f mL solution 15:44: in the [facility] 12 morning. Medical Branch ARIPiprazol 2021-0 Yes 10mg Take 10 mg Univers e (ABILIFY) 7-26 by mouth ity of 10 mg 15:44: in the [place] [address] morning. Medical Branch traZODone 2021-0 Yes 50mg Take 50 mg Un frida 50 mg 7-26 by mouth ity of tablet 15:44: at [place] [address] bedtime. Medical Branch sulfamethox 2021-0 Yes 1{tbl} Take 1 Un frida azole-trime 7-26 tablet by ity of thoprim 15:44: mouth in [place] 800-160 mg 12 the Medical per tablet morning Branch and 1 tablet in the evening. buprenorphi 2021-[address] 8 mg Univers ne-naloxone 7-26 under the ity of 8-2 mg 15:44: tongue. [place] sublingual Medical film Branch omeprazole 2021-0 Yes 40mg Take 40 mg U nivers 40 mg 7-26 by mouth ity of capsule 15:44: in the [place] [address] morning. Medical Branch midodrine 5 2021-0 Yes 5mg Take 5 mg U nivers mg tablet 7-26 by mouth ity of 15:44: in the [place] [address] morning Medical and 5 mg Branch at noon and 5 mg in the evening. lactulose Yes 15mL Take 15 mL Un frida 10 gram/15 7-26 by mouth ity o f mL solution 15:44: [facility]. Medical Branch ARIPiprazol Yes 10mg Take 10 mg Univers e (ABILIFY) 7-26 by mouth ity of 10 mg 15:44: in the [facility] [place] [facility] 12 morning. Medical Branch traZODone 0 Yes 50mg Take 50 mg Un frida 50 mg 7-26 by mouth ity of tablet 15:44: at [place] 12 bedtime. Medical Branch sulfamethox Yes 1{tbl} Take 1 Un frida azole-trime 7-26 tablet by ity of thoprim 15:44: mouth in [place] 800-160 mg 12 the Medical per tablet morning Branch and 1 tablet in the evening. buprenorphi Yes 8mg Place 8 mg Univers ne-naloxone 7-26 under the ity of 8-2 mg 15:44: tongue. [place] sublingual 12 Medical film Branch SERTraline 0 Yes [id number] 50mg Take 1 U nivers (ZOLOFT) 50 7-26 tablet by ity of mg tablet 00:00: [place] 00 the Medical morning. Branch SERTraline Yes [id number] 50mg Take 1 U nivers (ZOLOFT) 50 7-26 tablet by ity of mg tablet 00:00: [place] 00 the Medical morning. Branch SERTraline Yes [id number] 50mg Take 1 U nivers (ZOLOFT) 50 7-26 tablet by ity of mg tablet 00:00: [place] 00 the Medical morning. Branch cefdinir 0 2021- No [id number] 300mg Take 1 U nivers 300 mg 01-21 capsule by ity of capsule 00:00: 00:00 mouth 2 [place] 00 :00 (two) Medical times Branch daily. ondansetron 2021- No [id number] 4mg Take 1 Univers 4 mg 01-21 tablet by ity of disintegrat 00:00: 00:00 [place] tablet 00 :00 every 4 Medica l (four) Branch hours as needed for Nausea and Vomiting (N/V). foLIC acid Yes [id number] 1mg Take 1 Univers 1 mg tablet 4-21 tablet by ity of 00:00: mouth [place] 00 daily. Medical Branch foLIC acid Yes [id number] 1mg Take 1 Univers 1 mg tablet 4-21 tablet by ity of 00:00: mouth [place] 00 [facility]. [facility] foLIC acid Yes [id number] 1mg Take 1 Univers 1 mg tablet 4-21 tablet by ity of 00:00: mouth [place] 00 daily. [facility] thiamine 2021- No [id number] 100mg Take 1 Univers 100 mg -03 02- tablet by ity of tablet 00:00: 00:00 mouth [place] 00 :00 daily. [facility] varenicline 2021- No [id number] Take one Univers (CHANTIX 11-03 0.5mg tab ity o f STARTING 00:00: 00:00 [place] MON[place] BOX) 00 :00 once daily Med ical 0.5 mg for 3 Branch (11)- 1 mg days, then (42) tablet one 0.5mg tab twice daily for 4 days, then one 1mg tab twice daily. varenicline 2021- No [id number] 1mg Take 1 Univers (CHANTIX 11-03 tablet by ity o f CONTINUING 00:00: 00:00 mouth 2 [place] MONTH BOX) 00 :00 (two) Medical 1 mg tablet times Branch daily. iopamidol 2020- No [id number] 100mL 100 mL, Univers (ISOVUE 11-20-07 Intravenou ity o f 370-500 mL) 09:48: [...] Weight 50, kg, Start date: 09/16/20 16:00:00 [employer], Duration: 24 hr, Stop date: 09/16/20 16:00:00 [employer], 0 Chlordiazep 2021-0 No 50 mg, 2 Me moria oxide 3-03 cap, l 22:00: Route: PO, Drug form: CAP, Q24H, Dosing Weight 50, kg, Start date: 09/16/20 16:00:00 [employer], Duration: 24 hr, Stop date: 09/16/20 16:00:00 [employer], 0 Chlordiazep 2021-0 No 50 mg, 2 Me moria oxide 3-03 cap, l 22:00: Route: PO, Drug form: CAP, Q24H, Dosing Weight 50, kg, Start date: 09/16/20 16:00:00 [employer], Duration: 24 hr, Stop date: 09/16/20 16:00:00 [employer], 0 Chlordiazep 2021-0 No 50 mg, 2 Me moria oxide 3-03 cap, l 03:00: Route: PO, Drug form: CAP, Q12H, Dosing Weight 50, kg, Start date: 09/15/20 21:00:00 [employer], Duration: 24 hr, Stop date: 09/16/20 9:00:00 [employer], 0 Chlordiazep 2021-0 No 50 mg, 2 Me moria oxide 3-03 cap, l 03:00: Route: PO, Drug form: CAP, Q12H, Dosing Weight 50, kg, Start date: 09/15/20 21:00:00 [employer], Duration: 24 hr, Stop date: 09/16/20 9:00:00 [employer], 0 Chlordiazep 2021-0 No 50 mg, 2 Me moria oxide 3-03 cap, l 03:00: Route: PO, Drug form: CAP, Q12H, Dosing Weight 50, kg, Start date: 09/15/20 21:00:00 [employer], Duration: 24 hr, Stop date: 09/16/20 9:00:00 [employer], 0 remove 2021-0 No Notes: Memoria patch 3-02 Remove old l 15:00: patch [place] 00 before applicatio n of new patch. WASTE: F/P - P Waste Black; E - P Waste Black remove No Notes: Memoria patch 3-02 Remove old l 15:00: patch [place] 00 before applicatio n of new patch. [...] Weight 50, kg, Start date: 09/14/20 16:00:00 [employer], Duration: 24 hr, Stop date: 09/15/20 8:00:00 [employer], 0 Chlordiazep No 50 mg, 2 Me moria oxide 3- cap, l 22:00: Route: PO, Drug form: CAP, Q8H, Dosing Weight 50, kg, Start date: 09/14/20 16:00:00 [employer], Duration: 24 hr, Stop date: 09/15/20 8:00:00 [employer], 0 Chlordiazep No 50 mg, 2 Me moria oxide 3- cap, l 22:00: Route: PO, Drug form: CAP, Q8H, Dosing Weight 50, kg, Start date: 09/14/20 16:00:00 [employer], Duration: 24 hr, Stop date: 09/15/20 8:00:00 [employer], 0 Folic Acid No Notes: Memor ia 3- (Same as: l 15:00: Folvite) multivitami No 1 tab, Theo makayla n 3- Route: PO, l 15:00: Dosing Weight 50, kg, Daily, Start date: 09/14/20 9:00:00 [employer], Duration: 5 day, Stop date: 09/18/20 9:00:00 [employer] Thiamine 0 No Notes: Memoria 3-01 (Same As: l 15:00: Vitamin [place] 00 B1) multivitami No Notes: Theo makayla n with 3- (Same l minerals 15:00: as:Thera-M berkowtiz 00 , Theragran- M) WASTE: F/P - Black; E - Municipal Trash Bin Give with food. Folic Acid No Notes: Memor ia 3- (Same as: l 15:00: Folvite) [place] multivitami No 1 tab, Theo makayla n 3- Route: PO, l 15:00: Dosing [place] Weight 50, kg, Daily, Start date: 09/14/20 9:00:00 [employer], Duration: 5 day, Stop date: 09/18/20 9:00:00 [employer] Thiamine No Notes: Memoria 3- (Same As: l 15:00: Vitamin [place] 00 B1) multivitami No Notes: Theo makayla n with 3- (Same l minerals 15:00: as:Thera-Christopher Dudley berkowitz , Theragran- ) WASTE: F/P - Black; E - Municipal Trash Bin Give with food. Folic Acid No Notes: Memor ia 3- (Same as: l 15:00: Folvite) [place] 00 multivitami No 1 tab, Theo makayla n 3- Route: PO, l 15:00: Dosing [place] 00 Weight 50, kg, Daily, Start date: 09/14/20 9:00:00 [employer], Duration: 5 day, Stop date: 09/18/20 9:00:00 [employer] Thiamine No Notes: Memoria 3- (Same As: l 15:00: Vitamin [place] 00 B1) multivitami No Notes: Theo makayla n with 3- (Same l minerals 15:00: as:Thera-M berkowitz 00 , Theragran- M) WASTE: F/P - Black; E - Municipal Trash Bin Give with food. Nicotine No Notes: Memoria 3-01 (Same as: l 14:27: Habitrol) [place] 00 "Remove old patch before applicatio n of new patch" WASTE: F/P - P Waste Black; E - P Waste Black Nicotine No Notes: Memoria 3-01 (Same as: l 14:27: Habitrol) [place] 00 "Remove old patch before applicatio n of new patch" WASTE: F/P - P Waste Black; E - P Waste Black Nicotine No Notes: Memoria 3-01 (Same as: l 14:27: Habitrol) [place] 00 "Remove old patch before applicatio n of [...] oxide 3-01 cap, l 00:00: Route: PO, [place] 00 Drug form: CAP, Q6H, Dosing Weight 50, kg, Start date: 09/13/20 18:00:00 [employer], Duration: 24 hr, Stop date: 09/14/20 12:00:00 [employer], 0 Chlordiazep 2020-0 No 50 mg, 2 Me moria oxide 3-01 cap, l 00:00: Route: PO, Drug form: CAP, Q6H, Dosing Weight 50, kg, Start date: 09/13/20 18:00:00 [employer], Duration: 24 hr, Stop date: 09/14/20 12:00:00 [employer], 0 Chlordiazep 2020-0 No 50 mg, 2 Me moria oxide 3-01 cap, l 00:00: Route: PO, Drug form: CAP, Q6H, Dosing Weight 50, kg, Start date: 09/13/20 18:00:00 [employer], Duration: 24 hr, Stop date: 09/14/20 12:00:00 [employer], 0 cefepime 2020-0 No Notes: Memoria - (Same As: l 22:00: Maxipime) MEDICATION WASTE Product Size: 1000 mg Product Wasted: ___ mg cefepime 2020-0 No Notes: Memoria - (Same As: l 22:00: Maxipime) 00 MEDICATION WASTE Product Size: 1000 mg Product Wasted: ___ mg cefepime 2020-0 No Notes: Memoria - (Same As: l 22:00: Maxipime) 00 MEDICATION WASTE Product Size: 1000 mg Product Wasted: ___ mg Lorazepam 2020-0 No Notes: Memori a 2-28 (Same as: l 21:44: Ativan) Lorazepam 2020-0 No Notes: Memori a 2-28 (Same as: l 21:44: Ativan) Lorazepam 2020-0 No Notes: Memori a 2-28 (Same as: l 21:44: Ativan) Lactated No 1,000 mL, Theo makayla Ringers IV 09-13 Rate: 125 l 1,000 mL 21:32: ml/hr, [place] 00 Infuse over: 8 hr, Route: IV, Dosing Weight 50 kg, Total Volume: 1,000, Start date: 09/13/20 15:32:00 [employer], 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, Stop date: 10/13/20 15:31:00 CDT, 1.53, m2, 0 Ondansetron No Notes: Theo makayla 2-28 (Same as: l 21:32: Zofran) [place] MEDICATION WASTE Product Size: 4 mg Product Wasted: ___ mg Hydromorpho No Notes: Theo makayla ne 2-28 Same as: l 21:32: Dilaudid [place] 00 Lactated No 1,000 mL, Theo makayla Ringers IV - Rate: 125 l 1,000 mL 21:32: ml/hr, [place] 00 Infuse over: 8 hr, Route: IV, Dosing Weight 50 kg, Total Volume: 1,000, Start date: 09/13/20 15:32:00 [employer], 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, Stop date: 10/13/20 15:31:00 CDT, 1.53, m2, 0 Ondansetron No Notes: Theo makayla 2-28 (Same as: l 21:32: Zofran) [place] MEDICATION WASTE Product Size: 4 mg Product Wasted: ___ mg Hydromorpho No Notes: Theo makayla ne 2-28 Same as: l 21:32: Dilaudid [place] 00 Lactated No 1,000 mL, Theo makayla Ringers IV - Rate: 125 l 1,000 mL 21:32: ml/hr, [place] 00 Infuse over: 8 hr, Route: IV, Dosing Weight 50 kg, Total Volume: 1,000, Start date: 09/13/20 15:32:00 [employer], 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, Stop date: 10/13/20 15:31:00 CDT, 1.53, m2, 0 Ondansetron No Notes: Theo makayla 2-28 (Same as: l 21:32: Zofran) MEDICATION WASTE Product Size: 4 mg Product Wasted: ___ mg Hydromorpho No Notes: Theo makayal ne 2- Same as: l 21:32: Dilaudid [place] 00 Ceftriaxone No Notes: Theo makayla 2-28 [...] Sodium No 1,000 mL, Memori a Chloride - 1000 l 0.9% 18:46: ml/hr, [place] (Bolus) IV 00 Infuse Over: 1 hr, Route: IV, 1,000, Drug form: INJ, ONCE, Priority: STAT, Dosing Weight 50 kg, Start date: 09/13/20 12:46:00 [employer], Stop date: 09/13/20 12:46:00 [employer], 0 Morphine No Notes: Memoria 2-28 (Same l 18:46: as:MORPhin [place] 00 e Sulfate) Ondansetron No Notes: Theo makayla 2-28 (Same as: l 18:46: Zofran) MEDICATION WASTE Product Size: 4 mg Product Wasted: ___ mg Saline No Notes: Memoria Flush 0.9% 2-28 (Same as: l 18:46: BD [place] 00 Posiflush) Sodium No 1,000 mL, Memori a Chloride 2-28 1000 l 0.9% 18:46: ml/hr, [place] (Bolus) IV 00 Infuse Over: 1 hr, Route: IV, 1,000, Drug form: INJ, ONCE, Priority: STAT, Dosing Weight 50 kg, Start date: 09/13/20 12:46:00 [employer], Stop date: 09/13/20 12:46:00 [employer], 0 Morphine No Notes: Memoria 2-28 (Same l 18:46: as:MORPhin [place] 00 e Sulfate) Ondansetron No Notes: Theo makayla 2-28 (Same as: l 18:46: Zofran) [place] 00 MEDICATION WASTE Product Size: 4 mg Product Wasted: ___ mg Saline No Notes: Memoria Flush 0.9% 2-28 (Same as: l 18:46: BD [place] 00 Posiflush) Sodium No 1,000 mL, Memori a Chloride 2-28 1000 l 0.9% 18:46: ml/hr, [place] (Bolus) IV 00 Infuse Over: 1 hr, Route: IV, 1,000, Drug form: INJ, ONCE, Priority: STAT, Dosing Weight 50 kg, Start date: 09/13/20 12:46:00 [employer], Stop date: 09/13/20 12:46:00 [employer], 0 Morphine No Notes: Memoria 2-28 (Same l 18:46: as:MORPhin [place] 00 e Sulfate) Ondansetron No Notes: Theo makayla 2-28 (Same as: l 18:46: Zofran) [place] 00 MEDICATION WASTE Product Size: 4 mg Product Wasted: ___ mg ondansetron 2019-07 Yes Opioid 4mg Take 1 Un frida 4 mg 1-06 withdrawal tablet by ity of disintegrat 00:00: mouth [place] ing tablet 00 every 8 Medica l (eight) Branch hours as needed for Nausea and Vomiting (N/V). Motrin 600 Yes 600 mg = 1 M emoria mg oral 7-13 tab, PO, l tablet 23:27: Q6H, X 5 [place] 00 day, # 20 tab, 0 Refill(s) Motrin 600 Yes 600 mg = 1 M emoria mg oral 7-13 tab, PO, l tablet 23:27: Q6H, X 5 [place] 00 day, # 20 tab, 0 Refill(s) Motrin 600 Yes 600 mg = 1 M emoria mg oral 7-13 tab, PO, l tablet 23:27: Q6H, X 5 [place] 00 day, # 20 tab, 0 Refill(s) Motrin No Notes: Memoria 7-13 (Same as: l 22:22: Motrin) [place] 00 "Do Not Crush" Take with food. Motrin No Notes: Memoria 7-13 (Same as: l 22:22: Motrin) [place] 00 "Do Not Crush" Take with food. Motrin No Notes: Memoria 7-13 (Same as: l 22:22: Motrin) [place] 00 "Do Not Crush" Take with food. albuterol Yes 2{puff} Inhale 2 U nivers (VENTOLIN) 4-13 Puffs ity of 90 00:00: every 4 [place] mcg/actuati 00 (four) Medica l on inhaler hours as Branc h needed for Wheezing or Shortness of Breath. albuterol 2021- No 2{puff} Inhale 2 Univers (VENTOLIN) 4-13 07-26 Puffs ity of 90 00:00: 00:00 every 4 [place] mcg/actuati 00 :00 (four) Medica l on inhaler hours as Branc h needed for Wheezing or Shortness of Breath. naproxen Yes 500mg Take 1 Tab Un [...] tablet Spasms (TO Branch MAX OF TID). Immunizations Ordered Filled Immunization Date Status Comments Sourc e Immunization Name Name SARS-COV-2 COVID-19 2021-06-04 Completed Unive rsity of PFIZER VACCINE 00:00:00 [facility] SARS-COV-2 COVID-19 2021-06-04 Completed Unive rsity of PFIZER VACCINE 00:00:00 [facility] SARS-COV-2 COVID-19 2021-06-04 Completed Unive rsity of PFIZER VACCINE 00:00:00 [facility] SARS-COV-2 COVID-19 2021-04-30 Completed Unive rsity of PFIZER VACCINE 00:00:00 [facility] SARS-COV-2 COVID-19 2021-04-30 Completed Unive rsity of PFIZER VACCINE 00:00:00 [facility] SARS-COV-2 COVID-19 2021-04-30 Completed Unive rsity of PFIZER VACCINE 00:00:00 [facility] Vital Signs Vital Name Observation Time Observation Value Comments Source Systolic blood 2022-02-08 20:45:00 114 mm[Hg] Univer sity of pressure [facility] Diastolic blood 2022-02-08 20:45:00 71 mm[Hg] Unive rsity of pressure [facility] Heart rate 2022-02-08 20:45:00 115 /min [facility] Body temperature 2022-02-08 20:45:00 37.22 [facility] 2022-02-08 20:45:[address] [facility] Body weight 2022-02-08 20:45:[address] [facility] BMI 2022-02-08 20:45:00 16.46 kg/m2 [facility] Oxygen saturation in 2022-02-08 20:45:00 97 /min [facility] Arterial blood by [facility] Pulse oximetry Branch Systolic blood 2020-11-20 10:29:00 129 mm[Hg] Univer sity of pressure [facility] Diastolic blood 2020-11-20 10:29:00 79 mm[Hg] Unive rsity of pressure [facility] Heart rate 2020-11-20 10:29:00 63 /min [facility] Respiratory rate 2020-11-20 10:29:00 13 /min [facility] Oxygen saturation in 2020-11-20 10:29:00 99 /min [facility] Arterial blood by [facility] Pulse oximetry Branch BMI 2020-11-20 08:36:00 16.64 kg/m2 [facility] Body temperature 2020-11-20 08:36:00 37 Yas [facility] Body weight 2020-11-20 08:36:[address] [facility] Systolic (mm Hg) 2020-09-15 00:09:00 Theo rial [place] Diastolic (mm Hg) 2020-09-15 00:09:00 Mem orial [place] Respitory Rate 2020-09-15 00:09:00 Memori al [place] Heart Rate 2020-09-15 00:09:00 Memorial [place] Respitory Rate 2020-09-14 17:56:00 Memori al [place] Heart Rate 2020-09-14 17:56:00 Memorial [place] Systolic (mm Hg) 2020-09-14 17:56:00 Theo rial [place] Diastolic (mm Hg) 2020-09-14 17:56:00 Mem orial [place] Temperature Oral (F) 2020-09-14 14:00:00 98.4 F Memorial [place] Heart Rate 2020-09-14 14:00:00 Memorial [place] Respitory Rate 2020-09-14 14:00:00 [facility] Systolic (mm Hg) 2020-09-14 14:00:00 [facility] Diastolic (mm Hg) 2020-09-14 14:00:00 [facility] Temperature Oral (F) 2020-09-14 09:40:00 98.3 F [facility] Respitory Rate 2020-09-14 09:40:00 [facility] Heart Rate 2020-09-14 09:40:00 [facility] Systolic (mm Hg) 2020-09-14 09:40:00 [facility] Diastolic (mm Hg) 2020-09-14 09:40:00 [facility] Temperature Oral (F) 2020-09-14 05:30:00 98.6 F [facility] Heart Rate 2020-09-14 05:30:00 [facility] Respitory Rate 2020-09-14 05:30:00 [facility] Systolic (mm Hg) 2020-09-14 05:30:00 [facility] Diastolic (mm Hg) 2020-09-14 05:30:00 [facility] Height 2020-09-14 02:59:00 165.1 cm [facility] Weight 2020-09-14 02:59:00 [facility] BMI Calculated 2020-09-14 02:59:00 [facility] Respitory Rate 2020-09-14 01:40:00 [facility] Temperature Oral (F) 2020-09-14 01:40:00 98.2 F [facility] Heart Rate 2020-09-14 01:40:00 [facility] Systolic (mm Hg) 2020-09-14 01:40:00 [facility] Diastolic (mm Hg) 2020-09-14 01:40:00 [facility] Height 2020-09-13 18:45:00 167.64 cm [facility] BMI Calculated 2020-09-13 18:45:00 [facility] Weight 2020-09-13 18:45:00 [facility] Temperature Oral (F) 2020-01-27 23:51:00 98.8 F [facility] Heart Rate 2020-01-27 23:51:00 [facility] Respitory Rate 2020-01-27 23:51:00 [facility] Systolic (mm Hg) 2020-01-27 23:51:00 [facility] Diastolic (mm Hg) 2020-01-27 23:51:00 [facility] Height 2020-01-27 22:21:00 165.1 cm [facility] BMI Calculated 2020-01-27 22:21:00 [facility] Weight 2020-01-27 22:21:00 [facility] Systolic (mm Hg) 2020-01-27 22:21:00 [facility] Diastolic (mm Hg) 2020-01-27 22:21:00 [facility] Heart Rate 2020-01-27 22:21:00 [facility] Respitory Rate 2020-01-27 22:21:00 [facility] Temperature Oral (F) 2020-01-27 22:21:00 98.8 F [facility] Procedures Procedure Date / Time Performing Clinician Source Performed CT ANGIOGRAM 2020-11-20 09:48:33 Morris Leon [place] f [place] ABDOMEN/PELVIS Medical Branch POCT TEST 2020-11-20 09:27:00 Morris Leon [facility] BILI UNCONJUGATED/BILI 2020-11-20 08:54:00 Morris Leon [facility] COMP. METABOLIC PANEL 2020-11-20 08:54:00 Morris Leon [facility] ([id number]) Medical Branch CBC WITH DIFF 2020-11-20 08:54:00 Morris Leon [place] [facility] PROTHROMBIN TIME / INR 2020-11-20 08:54:00 Morris Leon [facility] POCT GLUCOSE 2020-11-20 08:36:00 Doctor Unassigned, No [facility] (AUTOMATED) Name Medical Branch Plan of Care Planned Activity Planned Date Details Comments Source Future Scheduled 2021-03-17 INFLUENZA VACCINE Univer sity of Test 00:00:00 (Season Ended) [facility] [code = INFLUENZA Branch VACCINE (Season Ended)] Future Scheduled 2007 Screening for University of Test 00:00:00 malignant neoplasm [place] [facility] ical of cervix Branch (procedure) [code = 451893850] Future Scheduled 2005 DTaP,Tdap,and Td Univers ity of Test 00:00:00 Vaccines (1 - [place] [facility] Tdap) [code = Branch DTaP,Tdap,and Td Vaccines (1 - Tdap)] Future Scheduled 2004 Hepatitis C University of Test 00:00:00 screening [place] [facility] (procedure) [code Branch = 756936665] Future Scheduled 2002 SARS-CoV-2 University of Test 00:00:00 (COVID-19) Vaccine [place] [facility] ical (1) [code = Branch SARS-CoV-2 (COVID-19) Vaccine (1)] Future Scheduled 1998 Depression University of Test 00:00:00 screening [place] [facility] (procedure) [code Branch = 503810361] Future Scheduled 1987 VARICELLA VACCINES Unive rsity of Test 00:00:00 (1 of 2 - 2-dose [place] [facility] childhood series) Branch [code = VARICELLA VACCINES (1 of 2 - 2-dose childhood series)] Future Scheduled CT ANGIOGRAM [facility] ABDOMEN/PELVIS [facility] [code = 49242] Branch Future Scheduled IRON PANEL [code = Unive rsity of Test 2365] [facility] Branch Future Scheduled IRON PANEL [code = ONCE for 1 Unive rsity of Test 2365] Occurrences [facility] Branch 11/20/2020 until 11/20/2020 Encounters Start End Encounter Admission Attending Care Care Encounter Source Date/Time Date/Time Type Type Clinicians Facility Department ID 2021-11-19 Outpatient [facility] [id number] [place] 09:02:08 [id number] [facility] 2022-02-15 2022-02-15 Letter [facility] [id number] Univers 00:00:00 00:00:00 (Out) Formerly [facility], [facility] [id number] [facility] [id number] Joesph as TOYA?BLEA [id number] [address] MEDICAL OFFICE [facility] 2022-02-15 2022-02-15 Telephone [facility] [id number] Univers 00:00:00 00:00:00 Formerly [facility], [facility] [id number] ity of [place] 4.2.7.2.686 Joesph as TOYA?BLEA [id number] [address] MEDICAL OFFICE [facility] 2022-02-08 2022-02-08 Office [facility] [id number] Univers 15:30:00 16:30:39 Visit [facility], [facility] [id number] ity of [place] [id number] Joesph as TOYA?BLEA [id number] [address] MEDICAL OFFICE [facility] 2022-01-21 2022-01-21 Emergency Emergency David, Carlitos [facility] JM [id number] [facility] 20:17:00 20:17:00 54 2022-01-21 2022-01-21 Emergency [facility] [id number] [facility] 20:17:00 20:17:00 54 2022-01-07 2022-01-08 Emergency [facility] [id number] [place] 19:58:00 10:30:00 Health 2021-12-29 2022-01-05 Inpatient EM LESLIE ShinBM INTE.02 [id number] [facility] 16:01:00 16:58:00 Farhad [address] [facility] 2021-12-29 2022-01-05 Inpatient EM LESLIE ShinBM INTE.02 [id number] [facility] 16:01:00 16:58:00 Farhad 61 [facility] 2022-01-03 2022-01-03 Outpatient Physician, HCAMN MLAB [id number] [facility] 19:26:00 19:26:00 No 45 [facility] 2021-12-30 2021-12-30 Outpatient WILLIAM Fitzpatrick, LESLIECL LABO [id number] [facility] 09:23:00 09:23:[address] 2021-12-10 2021-12-10 [facility] [id number] [place] 00:00:00 00:00:00 [facility] 350.1.13.58 H [facility] [id number] MEDICAL [id number] [address] 3 2021-11-13 2021-12-08 Inpatient E FELIX ESPARZA MED 7500 MHNW 12:28:00 19:36:00 HALINA 2020-09-13 2020-09-15 Inpatient [facility] access hospital [id number] [facility] 18:41:14 00:52:[address] 2020-09-13 2020-09-14 Inpatient E YURY BL MED 7501 MHBL 15:07:00 18:52:00 , 2020-01-27 2020-01-27 Emergency Critical access hospital [id number] [facility] 21:52:37 23:57:[address] Results Test Description Test Time Test Comments Results Result Comments Source BASIC METABOLIC PANEL 2022-01-05 08:24:00 Test Item Value Reference Range Interpretation Comme nts SODIUM (test code = NA) 137 mmol/L 136-145 N POTASSIUM (test code = K) 3.5 mmol/L 3.5-5.1 N CHLORIDE (test code = CL) 106.0 mmol/L 98-107 N CARBON DIOXIDE (test code = 27.0 mmol/L 21-32 N CO2) ANION GAP (test code = GAP) 7.5 10-20 L GLUCOSE (test code = GLU) 83 mg/dL 74-106 N BLOOD UREA NITROGEN (test < 5 mg/dL 7-18 L code = BUN) GLOMERULAR FILTRATION RATE > 60 mL/min See_Comment E stimated GFR by using (test code = GFR) Modified M DRD formula.Chronic kidney disease is defined as either kidney d amageor GFR <60 mL/min/1.73 m2 for >3 months. [Automa afshin message] The system NextSpace generated this result tra nsmitted reference range : >=60. The reference range was not used to interpret th is result as normal/abnormal . CREATININE (test code = 0.40 mg/dL 0.55-1.02 L No te change in reference CREAT) range due to ch yvonne in reagent. BUN/CREATININE RATIO (test 14.3 10-20 N code = BUN/CREA) CALCIUM (test code = CA) 8.2 mg/dL 8.5-10.1 L [id number] 08:24:00 Test Item Value Reference Range Interpretation Comments MAGNESIUM (test code = MAG) 1.8 mg/dL 1.8-2.4 N UR OSMOLALITY [id number] 12:16:00 Test Item Value Reference Range Interpretation Comments UR OSMOLALITY RANDOM (test code = 420 mOsm/kg 48-962 N OSMOU) OSMOLALITY [id number] 12:16:00 Test Item Value Reference Range Interpretation Comments OSMOLALITY SERUM (test code = 271 mOsm/kg 275-295 L OSMO) 1355BASIC METABOLIC [id number] 06:15:00 Test Item Value Reference Range Interpretation [...] >3 months. [Automated mess age] The system NextSpace generated this result transmitted ref erence range: >=60. Th e reference range was not used to int erpret this result as normal/abnormal . CREATININE (test 0.40 mg/dL 0.55-1.02 L Note craig ge in code = CREAT) reference rang e due to change in reagent. BUN/CREATININE RATIO 12.8 10-20 N (test code = BUN/CREA) CALCIUM (test code = 7.7 mg/dL 8.5-10.1 L CA) [id number] 06:15:00 Test Item Value Reference Range Interpretation Comments PHOSPHORUS (test code = PHOS) 3.6 mg/dL 2.5-4.9 N [id number] 06:15:00 Test Item Value Reference Range Interpretation Comments MAGNESIUM (test code = MAG) 1.7 mg/dL 1.8-2.4 L OSMOLALITY [id number] 19:46:00 Test Item Value Reference Range Interpretation Comments OSMOLALITY SERUM (test code = 271 MOS/KG 275-295 L OSMO) [id number] OSMOLALITY [id number] 19:40:00 Test Item Value Reference Range Interpretation Comments UR OSMOLALITY RANDOM (test code = 420 MOS/KG 300-1000 N OSMOU) [id number] NA,[id number] 14:56:00 Test Item Value Reference Range Interpretation Comments UR NA,RANDOM (test code = SUN) 72 mmol/L 20-110 N UR OSMOLALITY [id number] 14:56:00 Test Item Value Reference Range Interpretation Comments UR OSMOLALITY RANDOM (test code = mOsm/kg 48-962 OSMOU) BASIC METABOLIC [id number] 05:32:00 Test Item Value Reference Range Interpretation [...] ed MDRD (test code = GFR) formula. ron kidney disease is defined as eith er kidney damageor GFR <60 mL/min/1.73 m2 for >3 months. [Automated mess age] The system NextSpace generated this result transmitted ref erence range: >=60. Th e reference range was not used to int erpret this result as normal/abnormal . CREATININE (test 0.30 mg/dL 0.55-1.02 L Note craig ge in code = CREAT) reference rang e due to change in reagent. BUN/CREATININE RATIO 15.6 10-20 N (test code = BUN/CREA) CALCIUM (test code = 7.4 mg/dL 8.5-10.1 L CA) [id number] 05:32:00 Test Item Value Reference Range Interpretation Comments PHOSPHORUS (test code = PHOS) 2.4 mg/dL 2.5-4.9 L [id number] 05:32:00 Test Item Value Reference Range Interpretation Comments MAGNESIUM (test code = MAG) 1.6 mg/dL 1.8-2.4 L BASIC METABOLIC [id number] 06:14:00 Test Item Value Reference Range Interpretation [...] >3 months. [Automated mess age] The system NextSpace generated this result transmitted ref erence range: >=60. Th e reference range was not used to int erpret this result as normal/abnormal . CREATININE (test code 0.40 mg/dL 0.55-1.02 L Note change in = CREAT) reference range due to change in reagent. BUN/CREATININE RATIO 12.8 10-20 N (test code = BUN/CREA) CALCIUM (test code = 6.9 mg/dL 8.5-10.1 L CA) [id number] 06:14:00 Test Item Value Reference Range Interpretation Comments MAGNESIUM (test code = MAG) 1.3 mg/dL 1.8-2.4 L COMPREHENSIVE METABOLIC [id number] 05:04:00 Test Item Value Reference Range Interpretation Comments SODIUM (test code = 130 mmol/L 136-145 L NA) POTASSIUM (test code 2.5 mmol/L 3.5-5.1 LL Results called to = K) [id number] by JAYSON PérezGP 12/31/21 0504Cr itical results verifie d and read back by Kelly brady? Y FOR ALL ICU PATIENT EXCLUDI NG HOLD PLEASE CALL [phone] CHLORIDE (test code = 99.0 mmol/L 98-107 [...] >3 months. [Automated mess age] The system NextSpace generated this result transmitted ref erence range: [...] = 51.94 % 13-45 H FESAT) VITAMIN [id number] 05:04:00 Test Item Value Reference Range Interpretation Comments VITAMIN B12 (test code = VITB12) 3896 pg/mL 193-986 H TSH REFLEX TO [id number] 05:04:00 Test Item Value Reference Range Interpretation Comments TSH REFLEX TO FT4 (test code = 1.3 0.4-5.5 N TSHREFLEX) [id number] 05:04:00 Test Item Value Reference Range Interpretation Comments FERRITIN (test code = MARIANNE) 272 ng/mL 8-388 N LACTIC [id number] 04:50:00 Test Item Value Reference Range Interpretation Comments LACTIC ACID (test 2.9 mmol/L 0.4-1.9 HH Results ca lled to code = LACT) [id number] by JAYSON PérezGP 12/31/21 0450Cr itical results verifie d and read back by Nu rse? Y FOR ALL ICU PATIENT EXCLUDING HOLD PLEASE CALL [phone] CBC W/AUTO [id number] 04:18:00 Test Item Value Reference Range Interpretation [...] DIFF REQUIRED (test code NO = MDIFF) [id number] 21:11:00 Test Item Value Reference Range Interpretation Comments SODIUM (test code = NA) 130 mmol/L 136-145 L BASIC METABOLIC [id number] 14:49:00 Test Item Value Reference Range Interpretation Comments SODIUM (test code = 129 mmol/L 136-145 L RESULT V ERIFIED BY NA) REPEAT ANALYSIS POTASSIUM (test code 2.5 mmol/L 3.5-5.1 LL Results called to = K) [id number] by 11ED Q5539 12/30/21 1447Cr itical results verifie d and read back by Kelly brady? Y FOR ALL ICU PATIENT EXCLUDI NG HOLD PLEASE CALL [phone] CHLORIDE (test code 100.0 mmol/L 98-107 N [...] Modifi ed MDRD (test code = GFR) formula.[facility] kidney disease is defined as eith er kidney damageor GFR <60 mL/min/1.73 m2 for >3 months. [Automated mess age] The system NextSpace generated this result transmitted ref erence range: [...] 7.4 mg/dL 8.5-10.1 L CA) COMPREHENSIVE METABOLIC [id number] 08:42:00 Test Item Value Reference Range Interpretation Comments SODIUM (test code = 137 mmol/L 136-145 RESULT V ERIFIED BY NA) REPEAT ANALYSIS POTASSIUM (test code 2.2 mmol/L 3.5-5.1 LL Results called to = K) [id number] by 2QUZ 5695 12/30/21 0839Critical re sults verified and re ad back by Nurse? YRESULT VERIFIE D BY REPEAT ANALYSIS FOR ALL ICU PATIENT EXCLUDI NG HOLD PLEASE CALL * [phone] CHLORIDE (test code = 107.0 mmol/L 98-107 [...] >3 months. [Automated mess age] The system NextSpace generated this result transmit afshin reference range [...] range due ALKP) to change in reagent. [id number] 08:42:00 Test Item Value Reference Range Interpretation Comments PHOSPHORUS (test code = PHOS) 3.0 mg/dL 2.5-4.9 N [id number] 08:42:00 Test Item Value Reference Range Interpretation Comments MAGNESIUM (test code = MAG) 1.8 mg/dL 1.8-2.4 N CBC W/AUTO [id number] 03:29:00 Test Item Value Reference Range Interpretation [...] = 0.00 K/mm3 0.0-0.1 N NRBC#) LACTIC [id number] 21:59:00 Test Item Value Reference Range Interpretation Comments LACTIC ACID (test 4.2 mmol/L 0.4-1.9 HH Results ca lled to code = LACT) [id number] by VDominiqueLA B. 12/29/212158Cr itical results verifie d and read back by Nu rse? Y FOR ALL ICU PATIENT EXCLUDING HOLD PLEASE CALL [phone] BASIC METABOLIC [id number] 21:59:00 Test Item Value Reference Range Interpretation Comments SODIUM (test code = 129 mmol/L 136-145 L NA) POTASSIUM (test code 2.3 mmol/L 3.5-5.1 LL Results called to = K) [id number] by V.LA B. 12/29/212158Cr itical results verifie d and read back by Nu rse? Y FOR ALL ICU PATIENT EXCLUDI NG HOLD PLEASE CALL [phone] CHLORIDE (test code = 96.0 mmol/L 98-107 [...] >3 months. [Automated mess age] The system NextSpace generated this result transmitted ref erence range: >=60. Th e reference range was not used to int erpret this result as normal/abnormal . CREATININE (test code 2.20 mg/dL 0.55-1.02 H Note change in = CREAT) reference range due to change in reagent. BUN/CREATININE RATIO 5.9 10-20 L (test code = BUN/CREA) CALCIUM (test code = 6.9 mg/dL 8.5-10.1 L CA) HEPATIC FUNCTION [id number] 21:59:00 Test Item Value Reference Range Interpretation [...] range due ALKP) to change in reagent. [id number] 21:50:00 Test Item Value Reference Range Interpretation Comments AMMONIA (test code = AMM) 55 umol/L 11-32 H - US ABDOMEN [id number] 18:33:00 [facility]Name: PAMELA OBRIEN : 1985 Sex: F Name: PAMELA OBRIEN [facility] : 1985 Age/S: 36 / F [address] [facility] Unit #: [id number] Loc: [place] [address] Phys: Alexis Fitzpatrick DO Acct: [id number] Dis Date: Status: ADM IN PHONE #: [phone] Exam Date: 12/29/2021 180 FAX #: [phone] Reason: CIRRHOSIS, EVALUATE FOR ASCITES, ORGANOMEGALY EXAMS: CPT CODE: [id number] US ABDOMEN COMPLETE 60253 REASON FOR EXAM: CIRRHOSIS, EVALUATE FOR ASCITES, ORGANOMEGALY EXAM ORDER DATE: 12/29/2021 4:10 PM Attending MJulio C: Alexis Fitzpatrick DO PROCEDURE: - US ABDOMEN COMPLETE Technique: Grayscale and color Doppler images of the abdomen. Comparison study: None FINDINGS: Aorta and IVC: Patent and grossly normal in caliber. Liver: Size : 16.5 cm craniocaudally Parenchyma and contour: Smooth [...] Negative Portal vein: Portal vein caliber is withinnormal limits. Portal vein is patent with hepatopetal flow. Pancreas: Incompletely visualized. However the visualized portions are grossly within normal limits. Right kidney: parenchyma echogenicity: Normal echogenicity size: 11 x 4.6 x 5.8 cm stones: none cysts/masses: none hydronephrosis: none PAGE 1 Signed Report (CONTINUED) [facility] 1985 Age/S: 36 / F [address] [facility] Unit #: [id number] Loc: [place] [address] Phys: Alexis Fitzpatrick DO Acct: [id number] Dis Date: Status: ADM IN PHONE #: [phone] Exam Date: 12/29/20211805 FAX #: [phone] Reason: CIRRHOSIS, EVALUATE FOR ASCITES, ORGANOMEGALY EXAMS: CPT CODE: [id number] US ABDOMEN COMPLETE 04339 &l t;Continued> Left kidney: parenchyma echogenicity: Normal echogenicity size: 11 x 4.9 x 4.6 cm stones: none cysts/masses: none hydronephrosis: none Spleen: size: 9.2 cm cysts/masses: Parenchyma is sonographically unremarkable. Ascites/pleural effusions: None IMPRESSION: Hepatomegaly with hepatic st eatosis. No ascites. Location: at 1833 Reported and signed by: London Madrid M.D. CC: Alexis Fitzpatrick DO Technologist: Celsa Cage Trnscb Date/Time: 12/29/2021 (1832) [id number] Orig Print D/T: S: 12/29/2021 (1835) Probe: PAGE 2 Signed Re portPROTHROMBIN [id number] 18:00:00 Test Item Value Reference Range Interpretation [...] ion INR range Pulmonary embol ism treatment (2.0-3.0)Venous thrombosis treatmentVenous thrombosis prophylaxis (hi gh risk surgery)Prevent ion of systemic emboli sm from: Acute myocardial infa rction Valvular heart disease Atrial fibrillation Mechanical pros thetic heart valves (2.5-3.5) IS PATIENT ON ANTICOAGULANTS? NURINALYSIS [id number] 17:45:00 Test Item Value Reference Range Interpretation Comments UA COLOR (test code = YELLOW YELLOW COLU) UA APPEARANCE (test Cloudy CLEAR A IS THE S AMPLE code = APPU) FROM ER OR L&D? ER IF THE ANSWER I S NO,PLEASE DOCUMENT TWO RN SIGNATURES HERE - by [id number] 12/29/21 1744 UA GLUCOSE DIPSTICK NEGATIVE mg/dL [...] FEW A MUCU) Urine Source? Clean CatchLACTIC [id number] 15:30:00 Test Item Value Reference Range Interpretation Comments LACTIC ACID (test 5.9 mmol/L 0.4-1.9 HH Results ca lled to code = LACT) [id number] by JAYSON PérezLT 12/29/21 1530Cr itical results verifie d and read back by Nu rse? Y FOR ALL ICU PATIENT EXCLUDING HOLD PLEASE CALL [phone] [id number] 15:18:00 Test Item Value Reference Range Interpretation Comments MAGNESIUM (test code = MAG) 1.0 mg/dL 1.8-2.4 L BASIC METABOLIC [id number] 15:18:00 Test Item Value Reference Range Interpretation Comments SODIUM (test code = 121 mmol/L 136-145 LL Results called to DR THIBODEAUX) AGMERCEDESKAby V.L AB.LT 12/29/21 1517Cr itical results verifie d and read back by Nu rse? Y POTASSIUM (test code 1.9 mmol/L 3.5-5.1 LL Results called to DR = K) AGBABIAKAby V.L AB.LT 12/29/21 1517Cr itical results verifie d and read back by Nu rse? Y FOR ALL ICU PATIENT EXCLUDI NG HOLD PLEASE CALL [phone] CHLORIDE (test code = 90.0 mmol/L 98-107 [...] >3 months. [Automated mess age] The system NextSpace generated this result transmitted ref erence range: [...] 8.5-10.1 LL Results called to DR STEFANIE MATIASLT 12/29/21 1518Cr itical results verifie d and read back by Kelly rsnathan? Y CREATINE KINASE (CK)2021-12-29 15:18:00 Test Item Value Reference Range Interpretation Comments CREATINE KINASE (CK) (test code = 67 IUnit/L 26-208 N CK) [id number] 15:07:00 Test Item Value Reference Range Interpretation Comments PHOSPHORUS (test code = PHOS) 2.5 mg/dL 2.5-4.9 N CBC W/O [id number] 14:26:00 Test Item Value Reference Range Interpretation [...] N = MPV) - CT HEAD/BRAIN W/O [id number] 14:16:00 [facility]Name: PAMELA OBRIEN : 1985 Sex: F Name: PAMELA OBRIEN [facility] : 1985 Age/S: 36 / F [address] [facility] Unit #: [id number] Loc: [place] [address] Phys: Mnaa Biggs MD Acct: [id number] Dis Date: Status: REG ER PHONE #: [phone] Exam Date: 12/29/2021 1403 FAX #: [phone] Reason: weakness of bilat LE EXAMS: CPT CODE: [id number] CT HEAD/BRAIN W/O CONT 30273 HISTORY: weakness of bilat LE TECHNIQUE: Noncontrast 2.[address] of the head. Examination acquired within [address] dose reduction protocol: Automated exposure control adjustment of mA and/or kV according to patient size or iterative reconstruction dose optimization techniques were used. COMPARISON: None FINDINGS: No lacerationsor contusions of the scalp or facial soft tissues. Calvarium and skull base are intact. No acute hemorrhage. No intracranial mass, mass effect, or midline shift. No effacement of the sulci or crespo-white matter interface. No cortical atrophy. No signs of white matter small-vessel disease. No hydrocepha brannon.. No extra-axial fluid collection. Visualized paranasal sinuses are clear. Mastoid air cells andmiddle ear cavities are clear. Orbital contents are unremarkable. IMPRESSION: Negative CT head. Location: [facility] at 1416 Reported and signed by:Rd Avitia MD CC: Mana Biggs MD Technologist:Annie Beck,RT(R),CT CTDI: DLP: Trnscb Date/Time: 12/29/2021 (1415) [email or web address] Orig Print D/T: S: 12/29/2021 (3335) PAGE 1 Signed Report- XR CHEST 1 [id number] 13:51:00 [facility] 1985 Sex: F FAX: Mana Ritter [phone] [place]: St: REG Name: PAMELA OBRIEN [facility] : 1985 Age/S: 36/F [address] [facility] Unit #: [id number] Loc: [place] [address] Phys: Mana Biggs MD Acct: [id number] Dis Date: Status: REG ER PHONE #: [phone] Exam Date: 12/29/2021 1344 FAX #: [phone] Reason: weakness EXAMS: CPT CODE: [id number] XR CHEST 1 V 90850 REASON FOR EXAM: weakness Exam Order Date: 12/29/2021 1:12 PM Ordering M.Manny: Mana Biggs MD PROCEDURE: - XR CHEST 1 V COMPARISON: None FINDINGS: The lungs are clear. There is no pleural effusion or pneumothorax. Pulmonary vascularity is within normal limits. Cardiomediastinal silhouette is normal in size for technique. The mediastinal contours are within normal limits. Levoscoliosis of the spine. The visualized upper abdomen is within normal limits. IMPRESSION: No acute cardiopulmonary process. Severe dextroscoliosis of the thoracic spine. Location: [facility] at 1351 Reported and signed by: Rd Avitia MD CC: Mana Biggs MD Technologist: LEANNE FAGAN JR RT(R); STUDENT TECHNOLOGIST Trnscrd Date/Time/By: 12/29/2021 (9612) : By: [email or web address] Orig Print D/T: S: 12/29/2021 (3522) PAGE 1 Signed ReportCOMP. METABOLIC PANEL (79811)2020-11-20 09:27:15 Test Item Value Reference Range Interpretation Comments NA (test code = 135 mmol/L 135-145 8953096778) K (test code = 4.0 mmol/L 3.5-5.0 2033553469) CL (test code = 99 mmol/L 98-108 8369386420) CO2 TOTAL (test code 29 mmol/L 23-31 = 9239781094) AGAP (test code = 7 2-16 7905765780) BUN (test code = 9 mg/dL 7-23 0520876671) GLUCOSE (test code = 97 mg/dL 70-110 9322203055) CREATININE (test code 0.53 mg/dL 0.50-1.04 = 0244438916) TOTAL BILI (test code 0.4 mg/dL 0.1-1.1 = 0650852616) CALCIUM (test code = 9.1 mg/dL 8.6-10.6 3738596201) T PROTEIN (test code 7.0 g/dL 6.3-8.2 = 2771191213) ALBUMIN (test code = 4.0 g/dL 3.5-5.0 3133466631) ALK PHOS (test code = 52 U/L 34-122 8290672164) ALTv (test code = 13 U/L 5-35 1742-6) AST(SGOT) (test code 27 U/L 13-40 = 9684001927) eGFR (test code = 132.0 mL/min/1.73m2 2134224591) SONIA (test code = SONIA) Association of [...] or urine or abnormalities in imaging tests). [facility] DHHU8679-67-05 09:27:00 Test Item Value Reference Range Interpretation Comments POCT PREG (test code = 1605) negative On board controls acceptable with C present Line (test code = 3574) Lab Interpretation (test code = Normal 57775-6) [facility] CenterBILI UNCONJUGATED/BILI ATXRUX6193-30-83 09:26:34 Test Item Value Reference Range Interpretation Comments BILI CONJ (test code = 2370594748) 0.0 mg/dL 0.0-0.3 BILI UNCON (test code = 8959028251) 0.2 mg/dL 0.1-1.1 Lab Interpretation (test code = Normal 15664-0) [facility] CenterPROTHROMBIN TIME / [id number] 09:18:33 Test Item Value Reference Range Interpretation [...] tions. Lab Interpretation (test Normal code = 34759-8) [facility] WITH JFRM7799-17-85 09:03:56 Test Item Value Reference Range Interpretation Comments WBC (test code = 6.87 See_Comment [Automated 8384-2) message] The sy stem which generated this result transmitted reference range : 4.30 - 11.10 10*3/?L. The reference range was not used to interpret this result as normal/abnormal . RBC (test code = 3.81 See_Comment L [Automated 439-8) message] The sy stem which generated this [...] (test code = 51.1 fL 39.0-49.9 H 72415-5) RDW-CV (test code = 22.0 % 12.0-15.5 H 788-0) PLT (test code = 268 See_Comment [Automated 587-3) message] The sy stem which generated this result transmitted reference range : 166 - 358 10*3/ ?L. The reference r yvonne was not used to interpret this result as normal/abnormal . MPV (test code = 9.4 fL 9.5-12.9 L 22989-9) NRBC/100 WBC (test 0.0 See_Comment [Automat ed code = 3435750642) message] The system which generated this result transmitted reference range : 0.0 - 10.0 /100 WBCs. The refer ence range was not u sed to interpret th is result as normal/abnormal . NRBC x10^3 (test code <0.01 See_Comment [Auto mated = 2943130246) message] The s ystem which generated this result transmitted reference range : 10*3/?L. The reference range was not used to interpret this result as normal/abnormal . GRAN MAT (NEUT) % 65.0 % (test code = 770-8) IMM GRAN % (test code 0.30 % = 8604280486) LYMPH % (test code = 25.5 % 736-9) MONO % (test code = 7.4 % 5905-5) EOS % (test code = 0.9 % 713-8) BASO % (test code = 0.9 % 706-2) GRAN MAT x10^3(ANC) 4.47 10*3/uL 1.88-7.09 (test code = 1899641011) IMM GRAN x10^3 (test <0.03 0.00-0.06 code = 8159191509) LYMPH x10^3 (test code 1.75 10*3/uL 1.32-3.29 = 731-0) MONO x10^3 (test code 0.51 10*3/uL 0.33-0.92 = 742-7) EOS x10^3 (test code = 0.06 10*3/uL 0.03-0.39 711-2) BASO x10^3 (test code 0.06 10*3/uL 0.01-0.07 = 704-7) Lab Interpretation Abnormal (test code = 27313-2) [facility] GLUCOSE (AUTOMATED)2020-11-20 08:38:55 Test Item Value Reference Range Interpretation Comments POCT GLU (test code = 3161283580) 104 mg/dL 70-110 Lab Interpretation (test code = Normal 49072-0) [facility] CenterANEMIA WIMPD1356-25-60 21:41:0011[facility]annANEMIA QIYTI4012-67-18 21:41:02652Fmetezhw HermannANEMIA RUXJT3880-16-74 21:41:004[facility]annANEMIA LIKES1048-95-22 21:41:0011[facility]annANEMIA HOTZE2207-38-31 21:41:73757Kltwkalg HermannANEMIA RWJZU7266-96-97 21:41:004 [facility]ANEMIA WQIEP8739-40-10 21:41:0011[facility]annANEMIA STUDY 2020-09-14 21:41:36126Mgskmjhv HermannANEMIA GPOOD1092-68-96 21:41:004[facility]annCHEM UMXXY4393-50-83 09:48:23831Hzraplkl HermannCHEM AXHPW6031-20-31 09:48:0074[facility]annCHEM BGICT2006-22-30 09:48:0010[facility] HermannCHEM VAQQY2590-32-78 09:48:000.49[facility]annCHEM SVGCG4975-77-17 09:48:30203 [facility]annCHEM JKMMP3086-81-35 09:48:003.0[facility]annCHEM PANEL 2020-09-14 09:48:0099[facility]annCHEM CZPUS0678-55-07 09:48:0033[facility]annCHEM AYLQI8621-16-67 09:48:007.0[facility]annCHEM KZRNU5446-45-18 09:48:008.4[facility]annCHEM LRBQW9995-91-37 09:48:00 Test Item Value Reference Range Interpretation Comments B/C Ratio (test code = B/C Ratio) 20 1 6-25 [facility]annCHEM GRVSO1754-55-13 09:48:005.8[facility]annCHEM PANEL 2020-09-14 09:48:002.4[facility]annCHEM LUQFR2127-25-17 09:48:003.4[facility]annCHEM WDQXB4389-82-96 09:48:00 Test Item Value Reference Range Interpretation Comments A/G Ratio (test code = A/G Ratio) 0.7 1 0.7-1.6 [facility]annCHE[facility] LPLDG6678-45-78 09:48:0027[facility]annCHEM PANEL 2020-09-14 09:48:0036[facility]annCHEM YHTEE5660-10-14 09:48:0057[facility]annCHEM IFQBL2266-33-59 09:48:000.4[facility]annCHEM QKWLP7373-67-95 09:48:70996Bwbitfji HermannCHEM XKWNF6165-92-66 09:48:002.2[facility]annCHEM NPQMC4820-31-74 09:48:003.4[facility] UiwshvzXVPEDXZJGH7658-19-04 09:48:0056.4 [facility] NdfisagHQDZBBZCES1340-51-88 09:48:0032.0[facility] HermannHEMATOLOGY 2020-09-14 09:48:007.6[facility] VumppfvFVQFAWPYOG5763-37-60 09:48:003.2[facility] BsonaorEWMLGDFBIN3677-59-62 09:48:000.8[facility] PckflmiKVTHZWTNAC5512-20-71 09:48:002.3[facility] QpgaxfuYUSGHJNBRY0099-59-79 09:48:001.3[facility] TSHDLLNHLO3810-64-44 09:48:000.3[facility] KoxukyeKKLVORJHXJ9730-99-36 09:48:000.1 [facility] KbnvhogAOZKEXRLXF9270-55-77 09:48:003+ *NA*(09/14/20 3:48 AM)[facility] QtixehtAMKAQUBTOX1724-73-55 09:48:004.1[facility] RjuthatZYAJLPRVOB2461-58-37 09:48:003.58[facility] LwpzmzxVEUMYMDXFO3951-24-94 09:48:007.1[facility] NGDDZGMZNH5428-45-61 09:48:0022.5[facility] RvgpuzlKLTSLGHXYI1015-72-40 09:48:00 62.8[facility] ZyozbtuOQFNPZSLNH6346-68-10 09:48:00 Test Item Value Reference Range Interpretation Comments MCH (test code = MCH) 19.8 pg 27.0-31.0 [facility] HnzawezPOVWRTOFID7139-62-07 09:48:0031.5[facility] HermannHEMATOLOGY 2020-09-14 09:48:0023.2[facility] BvzdiiyNJVNXWUVTT9211-16-61 09:48:96207Stjjcakd JixaheoNHAHSWZTNZ1873-80-68 09:48:008.4[facility] HermannCHEM SSDRR9526-92-14 09:48:04571Hdbtqcwm HermannCHEM DDHEL3506-71-19 09:48:0074[facility]annCHEM JKVZH0566-88-60 09:48:0010[facility]annCHEM QANBB5492-18-18 09:48:000.49 [facility]annCHEM IPLKU8614-68-59 09:48:81610Gwjhukik HermannCHEM PANEL 2020-09-14 09:48:003.0[facility] HermannCHEM LGFHX8593-49-73 09:48:0099[facility]annCHEM SNQSX8984-64-73 09:48:0033[facility] HermannCHEM FSHKI9327-09-80 09:48:007.0[facility]annCHEM YHHEJ1035-52-37 09:48:008.4[facility] HermannCHEM PHPOS2573-37-58 09:48:00 Test Item Value Reference Range Interpretation Comments B/C Ratio (test code = B/C Ratio) 20 1 6-25 [facility]annCHEM WVCJX3794-83-21 09:48:005.8[facility] HermannCHEM PANEL 2020-09-14 09:48:002.4[facility]annCHEM ZXOSC3866-39-78 09:48:003.4[facility]annCHEM QZGSU3995-85-54 09:48:00 Test Item Value Reference Range Interpretation Comments A/G Ratio (test code = A/G Ratio) 0.7 1 0.7-1.6 [facility]annCHEM FRXGU8420-21-93 09:48:0027[facility] HermannCHEM PANEL 2020-09-14 09:48:0036[facility] HermannCHEM FAGIP3048-04-36 09:48:0057[facility]annCHEM LCZWE3463-24-06 09:48:000.4[facility]annCHEM RZNKV3238-19-95 09:48:72763Wwdzvqbf HermannCHEM CUCFU1207-73-98 09:48:002.2[facility]annCHEM PARJI2827-00-36 09:48:003.4[facility] EmzvnxbEYAMKKZCBH7179-01-93 09:48:0056.4 [facility] NnhhdxfRTSLRABQVB8620-20-51 09:48:0032.0[facility] HermannHEMATOLOGY 2020-09-14 09:48:007.6[facility] DdysrqbUYULFHJYXH3007-39-37 09:48:003.2[facility] BhehjyyGKQGVANGWN8739-85-62 09:48:000.8[facility] EhjnurxAWUQFFTUET6714-29-70 09:48:002.3[facility] GokdyzoWZJIISHPBI4938-14-23 09:48:001.3[facility] FCPDLOOYEO0953-54-05 09:48:000.3[facility] PzzdoygCGXCWFCWLN9931-33-44 09:48:000.1 [facility] XnlzwgzJJLYUHHDAV5873-23-59 09:48:003+ *NA*(09/14/20 3:48 AM)[facility] PsbyimzNMVLQOVHAY3532-09-07 09:48:004.1[facility] SxfzcroTUAEBMFQPE2612-45-21 09:48:003.58[facility] FskxdrxFPJYQNUDAL8113-60-56 09:48:007.1[facility] ZYHRMMEIFU8352-27-01 09:48:0022.5[facility] SdlkovzBXJLSKFANK4531-16-45 09:48:00 62.8[facility] AepakqbBRYCWKYGGZ3260-61-93 09:48:00 Test Item Value Reference Range Interpretation Comments MCH (test code = MCH) 19.8 pg 27.0-31.0 [facility] OandrqlXYIYJVQRGF5189-42-04 09:48:0031.5[facility] HermannHEMATOLOGY 2020-09-14 09:48:0023.2[facility] PhemnlvALSQMTLPXO7135-49-57 09:48:38906Bsmowiwl YqvjsowNYIGABWSDE9250-04-50 09:48:008.4[facility] HermannCHEM ERLWP2804-76-08 09:48:38853Sqdxmhvb HermannCHEM CNLKO9842-69-27 09:48:0074[facility]annCHEM LPHRY7983-56-61 09:48:0010[facility]annCHEM JXSDE3285-43-76 09:48:000.49 [facility]annCHEM HZTJD0018-55-26 09:48:15062Hhfksbho HermannCHEM PANEL 2020-09-14 09:48:003.0[facility] HermannCHEM GBJOX5634-40-83 09:48:0099[facility]annCHEM AWJLC3005-06-16 09:48:0033[facility] HermannCHEM KLKNS3377-26-57 09:48:007.0[facility] HermannCHEM QTPCH5580-53-67 09:48:008.4[facility] HermannCHEM FZSVC9190-82-01 09:48:00 Test Item Value Reference Range Interpretation Comments B/C Ratio (test code = B/C Ratio) 20 1 6-25 [facility]annCHEM ZELWR3001-35-82 09:48:005.8[facility] HermannCHEM PANEL 2020-09-14 09:48:002.4[facility] HermannCHEM FYQMF6912-29-75 09:48:003.4[facility] HermannCHEM DVGFE7211-22-47 09:48:00 Test Item Value Reference Range Interpretation Comments A/G Ratio (test code = A/G Ratio) 0.7 1 0.7-1.6 [facility]annCHEM CPTJT8587-29-91 09:48:0027[facility] HermannCHEM PANEL 2020-09-14 09:48:0036[facility] HermannCHEM RXLZA9113-71-29 09:48:0057[facility]annCHEM SBUFF3272-18-26 09:48:000.4[facility] HermannCHEM EPSSM9866-68-99 09:48:88073Efggmtmz HermannCHEM HQCDK1098-17-16 09:48:002.2[facility] HermannCHEM ZXSIE8838-64-44 09:48:003.4[facility] PeewtusYNWHYFLAYT5700-37-97 09:48:0056.4 [facility] TwudqqrHEQVTJWJRO6365-23-95 09:48:0032.0[facility] HermannHEMATOLOGY 2020-09-14 09:48:007.6[facility] AfiuxtoWBPLWJXQWZ3786-66-08 09:48:003.2[facility] HyyxdjnEVZNRSVGVN1264-43-94 09:48:000.8[facility] ClxpzjuHUZTBHXTMX4094-36-35 09:48:002.3[facility] FzyovlmUUEDCNDRFE6537-56-23 09:48:001.3[facility] ENCGHAQWET5937-88-15 09:48:000.3[facility] VqubuwlHZWKSXNRHG2018-00-94 09:48:000.1 [facility] KkmprhkWFVHILOTMA8614-05-31 09:48:003+ *NA*(09/14/20 3:48 AM)[facility] IeinekmYEUPNGSPGQ2167-71-13 09:48:004.1[facility] UmogkbyKYLJVOBTGU9466-79-51 09:48:003.58[facility] SuhxuidTKHOLEBNII9262-84-85 09:48:007.1[facility] JAVSXZWCEG4372-28-57 09:48:0022.5[facility] BbtunhfCONBHRBULS7255-54-65 09:48:00 62.8[facility] QdbwxqhIJFMWLSDUY3001-99-99 09:48:00 Test Item Value Reference Range Interpretation Comments MCH (test code = MCH) 19.8 pg 27.0-31.0 [facility] NqajmghXINSVOQQPX1681-06-88 09:48:0031.5[facility] HermannHEMATOLOGY 2020-09-14 09:48:0023.2[facility] QhzcwwvKHCSKVLSEK8091-35-57 09:48:02507Havexlwr DxfdyauZLQCAFUTYG1737-42-22 09:48:008.4[facility] HermannANEMIA YEHTT8034-75-83 22:56:0012[facility] HermannANEMIA DQXRR6574-53-91 22:56:65583Rqyrtpsq [place] ANEMIA RZRGV0548-01-60 22:56:004[facility] HermannCHEM TQDGS7375-12-21 22:56:001.2 [facility] OyacwrqEMJOLUFLPO8135-72-30 22:56:00Not Detected (09/13/20 4:56 PM) [facility]annANEMIA TXNDM9393-95-19 22:56:0012[facility]annANEMIA STUDY 2020-09-13 22:56:21877Gwthedrn HermannANEMIA ZVAUV8359-70-55 22:56:004[facility] HermannCHEM MERDX0508-96-31 22:56:001.2[facility] WaxfivhEQMPQDTPTK6415-22-02 22:56:00Not Detected (09/13/20 4:56 PM)[facility]annANEMIA JDIUY6474-14-55 22:56:0012[facility]annANEMIA FKUQT3334-41-23 22:56:29534Iuqziqzq [place] ANEMIA WTOMI8666-80-92 22:56:004[facility] HermannCHEM IDMUF5386-46-53 22:56:001.2 [facility] WnxwaswLUJBLYQCFY5878-01-21 22:56:00Not Detected (09/13/20 4:56 PM) [facility] UZCFK7651-96-89 20:59:00Amber *ABN*(09/13/20 2:59 PM) [facility] DIWNG3146-67-54 20:59:00Marked *ABN*(09/13/20 2:59 PM) [facility] XGPZK9061-96-85 20:59:00 Test Item Value Reference Range Interpretation Comments UA Spec Grav (test code = UA Spec 1.027 1 Grav) [facility] JBWHH6998-95-01 20:59:00 Test Item Value Reference Range Interpretation Comments UA pH (test code = UA pH) 5.0 1 5.0-8.0 [facility] RRGOQ3802-64-98 20:59:00Negative *NA*(09/13/20 2:59 PM) [facility] VSXON8360-20-79 20:59:00Negative (09/13/20 2:59 PM) [facility] ODQXC9682-55-24 20:59:002.0[facility] DMUHO4821-67-26 20:59:00Positive *ABN*(09/13/20 2:59 PM)[facility] AIIVO0462-57-52 20:59:00Moderate *ABN*(09/13/20 2:59 PM)[facility] IHOMS8958-00-69 20:59:83519Xjtkssfb [facility]annURINE AND RQNLQ9792-75-72 20:59:0018 [facility] NVMPC9767-83-49 20:59:0049[facility] WMFRH2260-15-07 20:59:00Amber *ABN*(09/13/20 2:59 PM)[facility] UMYCZ1046-65-69 20:59:00Marked *ABN*(09/13/20 2:59 PM)[facility] ZLPES6540-47-70 20:59:00 Test Item Value Reference Range Interpretation Comments UA Spec Grav (test code = UA Spec 1.027 1 Grav) [facility] ABEBT2835-69-56 20:59:00 Test Item Value Reference Range Interpretation Comments UA pH (test code = UA pH) 5.0 1 5.0-8.0 [facility] QRSCA6863-08-40 20:59:00Negative *NA*(09/13/20 2:59 PM) [facility] OJVMY9549-83-99 20:59:00Negative (09/13/20 2:59 PM) [facility] SDLIO3043-95-35 20:59:002.0[facility] SNVOC4797-81-29 20:59:00Positive *ABN*(09/13/20 2:59 PM)[facility] JLQOG6402-96-84 20:59:00Moderate *ABN*(09/13/20 2:59 PM)[facility] ODDAH7315-17-47 20:59:71518Ywplsbkn [facility]UR[facility] AND OIKYC6633-00-00 20:59:0018 [facility] NZSMV0902-61-15 20:59:0049[facility] SUEWO1643-44-22 20:59:0049[facility] TGGLY2506-45-14 20:59:00 Teresa *ABN*(09/13/20 2:59 PM)[facility] ACDMX0926-00-41 20:59:00 Marked *ABN*(09/13/20 2:59 PM)[facility] IDRRY5646-37-02 20:59:00 Test Item Value Reference Range Interpretation Comments UA Spec Grav (test code = UA Spec 1.027 1 Grav) [facility] IMCDZ0863-61-07 20:59:00 Test Item Value Reference Range Interpretation Comments UA pH (test code = UA pH) 5.0 1 5.0-8.0 [facility] QGSTK3762-30-12 20:59:00Negative *NA*(09/13/20 2:59 PM) [facility] ISFSD6933-95-57 20:59:00Negative (09/13/20 2:59 PM) [facility] EIRTG0620-02-90 20:59:002.0[facility] PIJZG0810-16-02 20:59:00Positive *ABN*(09/13/20 2:59 PM)[facility] UDOAQ7478-61-15 20:59:00Moderate *ABN*(09/13/20 2:59 PM)[facility] ZJVKU5093-16-19 20:59:47285Ffqingoz [facility]annUR[facility] AND TDOQJ9268-31-81 20:59:0018 [facility]annCHEM HXFGZ8704-18-35 19:51:0091[facility] HermannCHEM PANEL 2020-09-13 19:51:0014[facility]annCHEM STPFW3571-50-26 19:51:000.68[facility]annCHEM LUNHF4213-86-85 19:51:08982Pnwddmxd HermannCHEM DRFYI4153-20-66 19:51:004.1[facility]annCHEM CPDXR5942-70-75 19:51:0095[facility]annCHEM AQSEG6588-60-67 19:51:0032[facility]annCHEM SLCFD0995-21-54 19:51:008.7 [facility]annCHE[facility] QAPES0402-25-75 19:51:007.4[facility]annCHEM PANEL 2020-09-13 19:51:003.2[facility]annCHEM KNDNL6869-11-27 19:51:0037[facility]annCHEM JTMXE1428-36-72 19:51:0048[facility]annCHEM HBKAW5863-07-14 19:51:0072[facility]annCHEM OVJFJ3806-12-18 19:51:000.4[facility]annCHEM JSCOC0394-03-11 19:51:007.1[facility]annCHEM IJASL4379-19-41 19:51:00 Test Item Value Reference Range Interpretation Comments B/C Ratio (test code = B/C Ratio) 21 01-08 [facility]annCHE[facility] KVWUB0571-67-18 19:51:004.2[facility] HermannCHEM PANEL 2020-09-13 19:51:00 Test Item Value Reference Range Interpretation Comments A/G Ratio (test code = A/G Ratio) 0.8 1 0.7-1.6 [facility]annCHEM YRYRI4185-39-53 19:51:55966Rryzhapv HermannCHEM PANEL 2020-09-13 19:51:108065Fzspqvai HermannCHEM WQZUP0333-22-63 19:51:0024.0[facility]annCHEM CERTQ0087-80-89 19:51:002.6[facility] DvtpuwwUQACUNITWONIU1904-00-29 19:51:00Negative *NA*(09/13/20 1:51 PM)[facility] InwxzecZJWJONIXET4722-45-88 19:51:007.5[facility] UmlgzpxYLMFMXCGYR3634-10-65 19:51:004.01[facility] EEYHPEJSHB7264-59-30 19:51:007.8[facility] HuwupbjRVTQHNXDTL9504-74-66 19:51:00 24.9[facility] BvuhfqhUQTNFEIRHI7084-59-33 19:51:0062.2[facility] HermannHEMATOLOGY 2020-09-13 19:51:00 Test Item Value Reference Range Interpretation Comments MCH (test code = MCH) 19.6 pg 27.0-31.0 [facility] FmsxpdjTFPUBADFVN8235-07-81 19:51:0031.5[facility]annHEMATOLOGY 2020-09-13 19:51:0022.6[facility] RtwlsvnJXKBVQJRCV9917-05-21 19:51:23199Lrvzgwnv ScjvnnoXEIIHGZFYR8491-75-67 19:51:008.1[facility] XfhjupxJSOIFGIXNJ9470-15-82 19:51:00See Note (09/13/20 1:51 PM)[facility] RicigyhJEDJADHKMQ7828-70-25 19:51:00 Normal (09/13/20 1:51 PM)[facility] FolwztjQOXUAYGSJN7467-18-14 19:51:0075.9 [facility] XaoimfjPSPCZQDTHE4216-49-15 19:51:0013.6[facility] HermannHEMATOLOGY 2020-09-13 19:51:007.4[facility] PiyonmzZVVEFCRFBL3882-73-64 19:51:002.6[facility] LhbzzqvBVRQTGUJCF1495-06-36 19:51:000.5[facility] JvzyegbEBXSLVTRPC2468-21-51 19:51:005.7[facility] RkxfgcrWDOOKOBYWJ5100-94-62 19:51:001.0[facility] TWQAOCZIHK9880-92-34 19:51:000.6[facility] GqafwbjEIQABGYEBK1937-05-97 19:51:000.2 [facility] ZhugrkyYDZBFQBGPP8354-79-41 19:51:002+ *ABN*(09/13/20 1:51 PM)[facility] XufcjtxYAOUVHHFXR7347-21-55 19:51:002+ *ABN*(09/13/20 1:51 PM)[facility] LAGLLAIDTG4649-49-61 19:51:001+ (09/13/20 1:51 PM)[facility] HermannCHEM PANEL 2020-09-13 19:51:0091[facility] HermannCHEM WVHEE1753-93-51 19:51:0014[facility]annCHEM PXCZN2831-34-11 19:51:000.68[facility] HermannCHEM KTGMG7302-48-03 19:51:01295Whjitqfx HermannCHEM IBKFY6670-69-80 19:51:004.1[facility] HermannCHEM MOWNK3684-91-53 19:51:0095[facility]annCHEM CBBGZ2629-87-27 19:51:0032 [facility]annCHEM UMTAF8199-62-10 19:51:008.7[facility] HermannCHEM PANEL 2020-09-13 19:51:007.4[facility] HermannCHEM YULND5875-77-29 19:51:003.2[facility] HermannCHEM JHIPY5129-02-84 19:51:0037[facility]annCHEM TCICG9266-27-22 19:51:0048[facility]annCHEM AUFRB7044-77-63 19:51:0072[facility]annCHEM XAFWK7065-70-95 19:51:000.4[facility] HermannCHEM USXVX3264-86-88 19:51:007.1 [facility]annCHEM TKRMR3168-26-58 19:51:00 Test Item Value Reference Range Interpretation Comments B/C Ratio (test code = B/C Ratio) 21 1 6-25 [facility]annCHE[facility] YXEPD3625-48-42 19:51:004.2[facility] HermannCHEM PANEL 2020-09-13 19:51:00 Test Item Value Reference Range Interpretation Comments A/G Ratio (test code = A/G Ratio) 0.8 1 0.7-1.6 [facility] QYQMO8858-52-16 19:51:56288Vxpjmxom HermannCHEM PANEL 2020-09-13 19:51:991439Dbuonuxl HermannCHEM GTUWS5152-93-07 19:51:0024.0[facility] OPSZV1153-76-55 19:51:002.6[facility] ZtdknhmXSJIELTQMLOCX8140-01-13 19:51:00Negative *NA*(09/13/20 1:51 PM)[facility] IjpwhjtBCGGNABXFJ4873-41-30 19:51:007.5[facility] NtfexnsOXZIOLDTJS2470-04-45 19:51:004.01[facility] LXMMWIMFRJ9083-87-11 19:51:007.8[facility] XxbfmjhMPMRETCLFV1800-00-58 19:51:00 24.9[facility] KxzfaryPDAPBMBGYP2839-62-40 19:51:0062.2[facility]annHEMATOLOGY 2020-09-13 19:51:00 Test Item Value Reference Range Interpretation Comments MCH (test code = MCH) 19.6 pg 27.0-31.0 [facility] ZeiwfwuDEPPNDNTGP9637-50-60 19:51:0031.5[facility]annHEMATOLOGY 2020-09-13 19:51:0022.6[facility] CmrtsahGWYNYBGDFP4930-39-17 19:51:29134Qpazrdgl WdqikqeQMEXCXYAQK7401-50-76 19:51:008.1[facility] LlfberfKLLVNYTAHB8073-35-45 19:51:00See Note (09/13/20 1:51 PM)[facility] MfhffxsXEAXRRRGAL6960-25-11 19:51:00 Normal (09/13/20 1:51 PM)[facility] SbznrebOTFUQYCYFT7093-70-32 19:51:0075.9 [facility] UplzuqpRQITCQPCGG6086-62-95 19:51:0013.6[facility]annHEMATOLOGY 2020-09-13 19:51:007.4[facility] YgfeshuRXKQFUHBOS3105-95-03 19:51:002.6[facility] JmjaqwxFQMVUZKQEN4477-19-61 19:51:000.5[facility] QncztgeRYFRDFJXRO8482-06-85 19:51:005.7[facility] UamjywmUBELWDYPCI2108-52-34 19:51:001.0[facility] DMCTSGWEYS3461-38-62 19:51:000.6[facility] HgdqqsbMCXKJMUAWA7329-53-93 19:51:000.2 [facility] HehamlcEABWIBXZPB4833-38-75 19:51:002+ *ABN*(09/13/20 1:51 PM)[facility] DnsspauDNWZOXCJND6041-57-95 19:51:002+ *ABN*(09/13/20 1:51 PM)[facility] FXSKKQRVTM0759-27-81 19:51:001+ (09/13/20 1:51 PM)[facility] PANEL 2020-09-13 19:51:0091[facility] XGUFF0078-11-92 19:51:0014[facility]CHE[facility] RHKUD0388-92-09 19:51:000.68[facility] HLKNW4360-92-05 19:51:87855Sgbtztiw HermannCHEM BRMHI5854-88-34 19:51:004.1[facility] UMVIM6870-08-47 19:51:0095[facility] YMMIK7924-07-36 19:51:0032 [facility] HMDWL6485-64-00 19:51:008.7[facility]annCHE[facility] PANEL 2020-09-13 19:51:007.4[facility]CHE[facility] LVQMI5458-78-04 19:51:003.2[facility] TICGS4161-34-02 19:51:0037[facility]CHE[facility] OQLOY6913-93-00 19:51:0048[facility] KUYUD2766-43-91 19:51:0072[facility] SBCPQ1240-77-94 19:51:000.4[facility]CHE[facility] QDAKE1352-60-66 19:51:007.1 [facility] WYBNR6136-69-13 19:51:00 Test Item Value Reference Range Interpretation Comments B/C Ratio (test code = B/C Ratio) 21 1 6-25 [facility] ZYRYZ4907-47-52 19:51:004.2[facility]CHE[facility] PANEL 2020-09-13 19:51:00 Test Item Value Reference Range Interpretation Comments A/G Ratio (test code = A/G Ratio) 0.8 1 0.7-1.6 [facility] NUVVL6566-89-78 19:51:56527Twhivxyt HermannCHEM PANEL 2020-09-13 19:51:980456Ocikxchz [facility]annCHEM MTQWV7855-07-13 19:51:0024.0[facility]CHE[facility] XZUDF1865-95-93 19:51:002.6[facility] ZxqsxjwOBJYRDDZZWNBX6305-21-87 19:51:00Negative *NA*(09/13/20 1:51 PM)[facility] GxgzqknYYVEMGNIND2312-24-88 19:51:007.5[facility] FjsheceFKULYPUIAC9877-04-27 19:51:004.01[facility] YTAFXVYSZT6069-28-44 19:51:007.8[facility] SimxstlTQKTINJMBO4195-18-90 19:51:00 24.9[facility] FyzakesWFPYVPUUOJ8539-12-80 19:51:0062.2[facility]annHEMATOLOGY 2020-09-13 19:51:00 Test Item Value Reference Range Interpretation Comments MCH (test code = MCH) 19.6 pg 27.0-31.0 [facility] MrojxmeOYLWTVIFZH5511-15-32 19:51:0031.5[facility]annHEMATOLOGY 2020-09-13 19:51:0022.6[facility] PojicsyYJKQPLLHYD7060-41-44 19:51:81945Lxqmpfqg KylwamxQOWGSNVSCS9941-60-22 19:51:008.1[facility] LbnmrewEAGMQFKVXX4922-79-57 19:51:00See Note (09/13/20 1:51 PM)[facility] QdkzppfFRBDFAIBJD0863-77-28 19:51:00 Normal (09/13/20 1:51 PM)[facility] OigrdzhPUVPIVXQCF8040-53-13 19:51:0075.9 [facility] TepqsmrNEZDNCXUJT4980-33-95 19:51:0013.6[facility]annHEMATOLOGY 2020-09-13 19:51:007.4[facility] OwqwyxgJJTVETDHYY7124-99-48 19:51:002.6[facility] DrrobmoKQQZLWQYLA5850-21-05 19:51:000.5[facility] GyobhfzRNLHGNOCPO0100-77-77 19:51:005.7[facility] NoeildgBYZZHRPPKM7059-65-20 19:51:001.0[facility] MLAYDACXHY3556-89-96 19:51:000.6[facility] NktescbDYGUEBVPLD3236-22-48 19:51:000.2 [facility] UwdmhwdRYPCRPWFNE3191-91-67 19:51:002+ *ABN*(09/13/20 1:51 PM)[facility] PglnksyMVMJPNUXWC1922-69-35 19:51:002+ *ABN*(09/13/20 1:51 PM)[facility] XBVJTCRWXP9517-32-29 19:51:001+ (09/13/20 1:51 PM)[facility]
[2022-02-24 23:26] LABS: Hematocrit 32.6 % (36.0-45.0); Lymphocytes % 9.8 % (15.3-44.8); MCV 91.6 fL (80-100); MPV 8.5 fL (7.6-11.3); RBC Red Blood Cell Count 3.56 M/uL (3.86-4.86)
[2022-02-24 23:33] LABS: Protime INR 2.32
[2022-02-24 23:42] LABS: BUN Blood Urea Nitrogen 7 mg/dL (7-18); Bicarbonate 31 mmol/L (21-32); Glomerular Filtration Rate 122 ml/min (=/>90); Glucose Level 143 mg/dL (74-106); Lipase 32 U/L (73-393); Potassium 3.9 mmol/L (3.5-5.1); Sodium Level 130 mmol/L (136-145)
[2022-02-24 23:49] LABS: Platelet Estimate ADEQ; White Blood Cell Scan OK (OK)
[2022-02-24 23:50] LABS: Anisocytosis 1+; Blood Morphology Comment NOTED (NOT SEEN); Burr Cells 1+; Hypochromasia 1+; Ovalocytes 2+; Target Cells 2+
[2022-02-25] MEDS ORDERED: NA CHLORIDE 0.9% 1,000 ML ONE (00:23)
--- NOTE | 2022-02-25 00:27 | ER ---
Nurse's Notes [facility] Name: Divina Collazo Age: 36 yrs Sex: Female : 1985 Arrival Date: 02/24/2022 Time: 22:08 Bed 17 Private MD: Diagnosis: Encounter for paracentesis 2nd to alcoholic cirrhosis;Moderate protein-calorie malnutrition Presentation: 02/24 22:13 Chief complaint: Patient states: abdominal pain and swelling gradually worsening began kl 5 days ago Pt has liver cirrhosis has not been taking lactulose. Coronavirus screen: Vaccine status: Patient reports receiving the 2nd dose of the covid vaccine. Ebola Screen: Patient negative for fever greater than or equal to 101.5 degrees Fahrenheit, and additional compatible Ebola Virus Disease symptoms. Initial Sepsis Screen: Does the patient meet any 2 criteria? No. Patient's initial sepsis screen is negative. Does the patient have a suspected source of infection? No. Patient's initial sepsis screen is negative. Risk Assessment: Do you want to hurt yourself or someone else? Patient reports no desire to harm self or others. Onset of symptoms was February 19, 2022. 22:13 Method Of Arrival: Wheelchair 22:13 Acuity: GABBY 3 kl Triage Assessment: 22:17 General: Appears distressed, uncomfortable, unkempt, Behavior is cooperative, anxious. Pain: Complains of pain in abdomen Pain currently is 9 out of 10 on a pain scale. GI: Reports lower abdominal pain, upper abdominal pain, vomiting, reports vomiting x 2 days. 22:22 GI: Abdomen is distended, noted to have ascites. PERLITE GRINDER: 02/25 07:52 LMP N/A - Irregular menses jg9 Historical: - Allergies: 02/24 22:16 Darvocet-N 100; kl - Home Meds: 22:16 Elavil [Active]; hydroxyzine HCl 25 mg Oral tab 1 tab 3 times per day [Active]; kl lisinopril 20 mg Oral tab 1 tab once daily [Active]; Lactulose Oral [Active]; metformin 500 mg Oral tab 1 tab 2 times per day [Active]; Suboxone [Active]; Zoloft Oral [Active]; - PMHx: 22:16 cirrhosis of liver; diabetes mellitus; Enlarged Heart; Hypertensive disorder; kl - PSHx: 22:16 section; - Immunization history:: Adult Immunizations not up to date. - Social history:: Smoking status: Patient reports the use of cigarette tobacco products, smokes two packs cigarettes per day. Screenin:13 Abuse screen: Denies threats or abuse. Denies injuries from another. Nutritional lg3 screening: No deficits noted. Tuberculosis screening: No symptoms or risk factors identified. Fall Risk None identified. Assessment: 23:13 General: Appears in no apparent distress. uncomfortable, Behavior is calm, cooperative. lg3 General: Appears unkempt. Pain: Complains of pain in abdomen. Neuro: No deficits noted. Level of Consciousness is awake, alert, obeys commands, Oriented to person, place, time, situation. Cardiovascular: No deficits noted. Denies chest pain, shortness of breath, Capillary refill < 3 seconds Clubbing of nail beds is absent Patient's skin is warm and dry. Respiratory: No deficits noted. Airway is patent Trachea midline Respiratory effort is even, unlabored, Respiratory pattern is regular, symmetrical. GI: Abdomen is round distended, Bowel sounds present X 4 quads. Abdomen is tender to palpation X 4 quads. Reports lower abdominal pain, upper abdominal pain, bloating, cramping, nausea, vomiting. : No deficits noted. No signs and/or symptoms were reported regarding the genitourinary system. EENT: No deficits noted. No signs and/or symptoms were reported regarding the EENT system. Derm: No deficits noted. Skin is intact, is healthy with good turgor, Skin is dry, Skin temperature is warm. Musculoskeletal: No deficits noted. No signs and/or symptoms reported regarding the musculoskeletal system. Circulation, motion, and sensation intact. Range of motion: intact in all extremities. Vital Signs: 22:13 BP 127 / 89; Pulse 117; Resp 20; Temp 97.8; Pulse Ox 98% ; Weight 44 kg (R); Height 5 kl ft. 5 in. (165.10 cm); Pain 9/10; 0812 00:19 BP 119 / 79; Pulse 112; Resp 22; Pulse Ox 95% on R/A; ja4 02/24 22:13 Body Mass Index 16.14 (44.00 kg, 165.10 cm) ED Course: 02/24 22:08 Patient arrived in ED. bp1 22:16 Triage completed. kl 22:21 Lety Schaeffer FNP-C is [facility]. snw 22:21 Jeaneth Beck MD is Attending Physician. snw 22:22 Ashwini Rogers, RN is Primary Nurse. lg3 22:57 XRAY Chest (1 view) In Process Unspecified. EDMS 23:13 Patient has correct armband on for positive identification. Bed in low position. Call lg3 light in reach. Side rails up X 1. Client placed on continuous cardiac and pulse oximetry monitoring. NIBP monitoring applied. environmental monitoring technician on. Door closed. Noise minimized. Warm blanket given. 23:13 Inserted saline lock: 20 gauge in right antecubital area, using aseptic technique. lg3 Blood collected. 0812 00:24 Chary Grimes MD is Hospitalizing Provider. snw 07:30 Arm band placed on right wrist. jg9 07:52 No provider procedures requiring assistance completed. jg9 07:52 Patient admitted, IV remains in place. jg9 Administered Medications: 00:18 Drug: NS 0.9% 1000 ml Route: IV; Rate: 75 ml/hr; Site: right antecubital; ja4 07:30 Follow up: IV Status: IV converted to saline lock; night nurse reports patient fluids jg9 were shut off due to her spo2 dropping Medication: 07:52 VIS not applicable for this client. jg9 Intake: Outcome: 00:26 Decision to Hospitalize by Provider. snw 00:53 Admitted to ER Hold. Please see [facility] for further documentation. ja4 07:52 Condition: stable jg9 18:34 Patient left the ED. jg9 Signatures: Dispatcher [employer] EDMS Sherrill Handy, RN RN Lety Baker FNP-C SAS ARCHITECT-Csnw Ashwini Rogers, RN RN lg3 Mindy Chu Jennifer, RN RN jg9 Garth Flynn, MATILDA RN ja4
--- NOTE | 2022-02-25 00:27 | EDPHYS ---
Physician Documentation [facility] Name: Divina Collazo Age: 36 yrs Sex: Female : 1985 Arrival Date: 02/24/2022 Time: 22:08 Bed 17 Private MD: ED Physician Jeaneth Beck HPI: 02/24 22:35 This 36 yrs old Female presents to ER via Wheelchair with complaints of Abdominal Pain, snw Abdominal Swelling. 22:35 The patient presents with abdominal pain that is diffuse, abdominal distention that is snw diffuse. Onset: The symptoms/episode began/occurred gradually. The symptoms do not radiate. Associated signs and symptoms: none. The symptoms are described as achy, constant. Severity of pain: At its worst the pain was moderate in the emergency department the pain is unchanged. The patient has experienced a previous episode, Aug 2021. The patient has been recently seen by a physician: the patient's primary care provider, Dr. Restrepo. BABYSITTER: 02/25 07:52 LMP N/A - Irregular menses jg9 Historical: - Allergies: 02/24 22:16 Darvocet-N 100; kl - Home Meds: 22:16 Elavil [Active]; hydroxyzine HCl 25 mg Oral tab 1 tab 3 times per day [Active]; kl lisinopril 20 mg Oral tab 1 tab once daily [Active]; Lactulose Oral [Active]; metformin 500 mg Oral tab 1 tab 2 times per day [Active]; Suboxone [Active]; Zoloft Oral [Active]; - PMHx: 22:16 cirrhosis of liver; diabetes mellitus; Enlarged Heart; Hypertensive disorder; kl - PSHx: 22:16 section; kl - Immunization history:: Adult Immunizations not up to date. - Social history:: Smoking status: Patient reports the use of cigarette tobacco products, smokes two packs cigarettes per day. ROS: 22:39 Eyes: Negative for injury, pain, redness, and discharge, ENT: Negative for injury, snw pain, and discharge, Neck: Negative for injury, pain, and swelling, Cardiovascular: Negative for chest pain, palpitations, and edema, Respiratory: Negative for shortness of breath, cough, wheezing, and pleuritic chest pain, Back: Negative for injury and pain, : Negative for injury, bleeding, discharge, and swelling, MS/Extremity: Negative for injury and deformity, Skin: Negative for injury, rash, and discoloration, Neuro: Negative for headache, weakness, numbness, tingling, and seizure, Psych: Negative for depression, anxiety, suicide ideation, homicidal ideation, and hallucinations. 22:39 Constitutional: Positive for body aches, fever, malaise. 22:39 Abdomen/GI: Positive for abdominal cramps, abdominal distension. Exam: 22:36 Head/Face: Normocephalic, atraumatic. Eyes: Pupils equal round and reactive to light, snw extra-ocular motions intact. Lids and lashes normal. Conjunctiva and sclera are non-icteric and not injected. Cornea within normal limits. Periorbital areas with no swelling, redness, or edema. ENT: Nares patent. No nasal discharge, no septal abnormalities noted. Tympanic membranes are normal and external auditory canals are clear. Oropharynx with no redness, swelling, or masses, exudates, or evidence of obstruction, uvula midline. Mucous membranes moist. Neck: Trachea midline, no thyromegaly or masses palpated, and no cervical lymphadenopathy. Supple, full range of motion without nuchal rigidity, or vertebral point tenderness. No Meningismus. Chest/axilla: Normal chest wall appearance and motion. Nontender with no deformity. No lesions are appreciated. 22:36 Respiratory: Lungs have equal breath sounds bilaterally, clear to auscultation and percussion. No rales, rhonchi or wheezes noted. No increased work of breathing, no retractions or nasal flaring. 22:36 MS/ Extremity: Pulses equal, no cyanosis. Neurovascular intact. Full, normal range of motion. Neuro: Awake and alert, GCS 15, oriented to person, place, time, and situation. Cranial nerves II-XII grossly intact. Motor strength 5/5 in all extremities. Sensory grossly intact. Cerebellar exam normal. Normal gait. 22:36 Constitutional: The patient appears anxious, frail, listless, much older than stated age, unkempt 22:36 Cardiovascular: Rate: tachycardic, Rhythm: regular, Heart sounds: normal. 22:36 Abdomen/GI: Inspection: distension, that is moderate, in the anterior aspect of general abdomen, gravid appearance, is noted, Bowel sounds: normal, in all quadrants, Palpation: mild abdominal tenderness, moderate abdominal tenderness, in all quadrants. 22:36 Back: scoliosis. 22:36 Skin: Appearance: Color: dusky. Vital Signs: 22:13 BP 127 / 89; Pulse 117; Resp 20; Temp 97.8; Pulse Ox 98% ; Weight 44 kg (R); Height 5 kl ft. 5 in. (165.10 cm); Pain 9/10; 02/25 00:19 BP 119 / 79; Pulse 112; Resp 22; Pulse Ox 95% on R/A; ja4 02/24 22:13 Body Mass Index 16.14 (44.00 kg, 165.10 cm) kl MDM: 02/24 22:55 Patient medically screened. snw 23:27 Data reviewed: vital signs, nurses notes. Data interpreted: Pulse oximetry: on room air snw is 98 %. Interpretation: normal. Counseling: I had a detailed discussion with the patient and/or guardian regarding: the historical points, exam findings, and any diagnostic results supporting the discharge/admit diagnosis, redraw of ammonia requested. 23:28 Awaiting: awaiting CT, pt with decreased pain. snw 02/24 22:34 Order name: Basic Metabolic Panel; Complete Time: 23:52 snw 02/24 22:34 Order name: CBC with Diff; Complete Time: 23:52 snw 02/24 22:34 Order name: AMMONIA; Complete Time: 00:06 snw 02/24 22:34 Order name: ETOH Level; Complete Time: 23:52 snw 02/24 22:34 Order name: Acetaminophen; Complete Time: 23:52 snw 02/24 22:34 Order name: PT-INR; Complete Time: 23:41 snw 02/24 22:34 Order name: Ptt, Activated; Complete Time: 23:41 snw 02/24 22:34 Order name: Salicylate; Complete Time: 23:52 snw 02/24 22:34 Order name: Urine Drug Screen snw 02/24 22:34 Order name: Lipase; Complete Time: 23:52 snw 02/24 23:36 Order name: CBC Smear Scan; Complete Time: 23:52 EDMS 02/25 00:34 Order name: SARS RAPID; Complete Time: 01:33 ds4 02/25 10:32 Order name: ABO/RH no charge; Complete Time: 16:06 EDMS 02/25 10:33 Order name: ABO/RH typing EDMS 02/24 22:34 Order name: XRAY Chest (1 view); Complete Time: 16:06 snw 02/24 22:34 Order name: EKG; Complete Time: 22:37 snw 02/24 22:34 Order name: Cardiac monitoring; Complete Time: 23:12 snw 02/24 22:34 Order name: EKG - Nurse/Tech; Complete Time: 23:00 snw 02/24 22:34 Order name: IV Saline Lock; Complete Time: 23:13 snw 02/24 22:34 Order name: Labs collected and sent; Complete Time: 23:13 snw 02/24 22:34 Order name: O2 Per Protocol; Complete Time: 23:00 snw 02/24 22:34 Order name: O2 Sat Monitoring; Complete Time: 23:00 snw 02/25 01:32 Order name: PARACENTESIS IN [facility] 02/25 01:32 Order name: PARACENTESIS IN [facility] 02/25 01:32 Order name: Paracentesis Proc Guidance [facility] 02/25 01:32 Order name: Paracentesis Proc Guidance [facility] 02/25 12:12 Order name: US; Complete Time: 16:06 [facility] 02/25 14:55 Order name: Protime (+INR); Complete Time: 16:06 [facility] 02/25 15:03 Order name: PTT, Activated Partial Thromb; Complete Time: 16:06 [facility] 02/24 23:53 Order name: VS Recheck; Complete Time: 00:19 snw EC:22 Rate is 107 beats/min. Rhythm is regular. QRS [place] is Normal. Clinical impression: snw Sinus tachycardia. Administered Medications: 02/25 00:18 Drug: NS 0.9% 1000 ml Route: IV; Rate: 75 ml/hr; Site: right antecubital; [facility] 07:30 Follow up: IV Status: IV converted to saline lock; night nurse reports patient fluids jg9 were shut off due to her spo2 dropping Disposition Summary: 02/25/22 00:26 Hospitalization Ordered Hospitalization Status: Observation snw Provider: Chary Grimes snw Condition: Stable snw Problem: an acute exacerbation snw Symptoms: have worsened snw Bed/Room Type: Standard snw Location: Telemetry/MedSurg (observation)(02/25/22 15:46) dw Room Assignment: [facility] [place](02/25/22 15:46) Diagnosis - Encounter for paracentesis 2nd to alcoholic cirrhosis snw - Moderate protein-calorie malnutrition snw Forms: - Medication Reconciliation Form snw - SBAR form snw Signatures: Dispatcher [employer] EDSherrill Russell RN Kenia Del Toro RN RN mw Woody, Diana RN Lety Perez, ATMOSPHERIC TECHNICIAN-C ATMOSPHERIC TECHNICIAN-Csnw Garth Flynn RN RN jaOneyda Adams RN jg9 Corrections: (The following items were deleted from the chart) 00:32 00:26 Telemetry/MedSurg (observation) snw mw 00:32 00:26 snw mw 15:46 00:32 [facility] ER HOLD mw dw 15:46 00:32 ERHOLD- mw dw
[2022-02-25 01:20] LABS: SARS-CoV-2 Antigen Rapid Res Negative (Negative)
--- NOTE | 2022-02-25 01:40 | P.HP ---
Certification for Inpatient Patient admitted to: Observation With expected LOS: <2 Midnights Patient will require the following post-hospital care: None Practitioner: I am a practitioner with admitting privileges, knowledge of patient current condition, hospital course, and medical plan of care. Services: Services provided to patient in accordance with Admission requirements found in Title 42 Section 412.3 of the Code of Federal Regulations <Jocelyn Cochran - Last Filed: 02/25/22 04:07> Patient History Date of Service: 02/25/22 Primary Care Provider: Kaye Reason for admission: Ascites Requiring Paracentesis History of Present Illness: Patient is a 36-year-old female with history of cirrhosis of the liver secondary to alcohol abuse, hypertension, and history of opioid abuse who presented to the ED with complaints of worsening abdominal pain and swelling. Her abdomen is noted to be moderately distended due to ascites. Patient reports that she had a paracentesis at [facility] back in August. She states that she has not been taking her lactulose. She has been in and out of rehab for alcoholism but reports drinking last night. Serum alcohol 225. Other labs significant for platelet 140, PT 26, APTT 51.2, sodium 130, ammonia WNL. Vital signs stable. ED provider wishes to admit patient for observation to have paracentesis via IR in morning. Home medications list reviewed: Yes - Past Medical/Surgical History Diabetic: Yes -: Cirrhosis of the liver -: Type 2 Diabetes, Non-Insulin Dependent -: Hypertension -: Alcohol/opioid abuse -: Psychosocial/ Personal History: Patient lives at home with her and children. - Family History Sister Notes: Depression - Social History Smoking Status: Current every day smoker Alcohol use: Yes CD- Drugs: Yes Caffeine use: Yes Place of Residence: Home <DimasJocelyn - Last Filed: 02/25/22 04:07> Date of Service: 02/25/22 <Chary Grimes - Last Filed: 02/25/22 13:55> Allergies propoxyphene [From Darvocet-N] Allergy (Verified 02/01/22 05:35) Nausea/Vomiting Home Medications: ARIPiprazole [Abilify Mycite] 10 mg PO BEDTIME 02/01/22 Folic Acid 1 mg PO DAILY 02/01/22 Furosemide [Lasix*] 20 mg PO DAILY 02/01/22 Lactulose 30 ml PO TID 02/01/22 Mvit-Mins/Folic Acid/Soy Isofl [One-A-Day Menopause Formula Tb] 1 tab PO DAILY 02/01/22 Spironolactone [Aldactone*] 25 mg PO DAILY 02/01/22 Thiamine HCl 100 mg PO DAILY 02/01/22 Trazodone [Desyrel*] 50 mg PO BEDTIME 02/01/22 Smz./Tmp. [Bactrim Ds 800 MG/160 MG*] 1 tab PO BID 10 Days #20 tab 02/03/22 Review of Systems Cardiovascular: Edema Gastrointestinal: Abdominal Pain, Distention <Jocelyn Cochran - Last Filed: 02/25/22 04:07> Physical Examination - Physical Exam General: Alert, In no apparent distress HEENT: Atraumatic, PERRLA, EOMI, Sclerae nonicteric Neck: Supple, No LAD Respiratory: Clear to auscultation bilaterally, Normal air movement Cardiovascular: Regular rate/rhythm, Normal S1 S2, Edema Gastrointestinal: Distended, Ascites, Tenderness Musculoskeletal: No tenderness Integumentary: No rashes Neurological: Normal speech, Normal strength at 5/5 x4 extr, Normal tone, Normal affect - Studies Laboratory Data (last 24 hrs) 02/24/22 23:10: PT 26.0 H, INR 2.32, APTT 51.2 H 02/24/22 23:10: WBC 10.6 D, Hgb 11.1 L, Hct 32.6 L, Plt Count 140 L D 02/24/22 23:10: Sodium 130 L, Potassium 3.9, BUN 7, Creatinine 0.56, Glucose 143 H, Lipase 32 L <Jocelyn Cochran - Last Filed: 02/25/22 04:07> - Studies Laboratory Data (last 24 hrs) 02/24/22 23:10: PT 26.0 H, INR 2.32, APTT 51.2 H 02/24/22 23:10: WBC 10.6 D, Hgb 11.1 L, Hct 32.6 L, Plt Count 140 L D 02/24/22 23:10: Sodium 130 L, Potassium 3.9, BUN 7, Creatinine 0.56, Glucose 143 H, Lipase 32 L <Chary Grimes - Last Filed: 02/25/22 13:55> Assessment and Plan - Problems (Diagnosis) (1) Alcoholic cirrhosis of liver with ascites Current Visit: Yes Status: Acute (2) Thrombocytopenia Current Visit: Yes Status: Acute (3) Type 2 diabetes mellitus Current Visit: Yes Status: Chronic Qualifiers: Diabetes mellitus retirement insulin use: without retirement use Diabetes mellitus complication status: with hyperglycemia Qualified Code(s): E11.65 - Type 2 diabetes mellitus with hyperglycemia (4) Hypertension Current Visit: Yes Status: Chronic Qualifiers: Hypertension type: primary hypertension Qualified Code(s): I10 - Essential (primary) hypertension - Plan -Patient is admitted for observation -Paracentesis ordered for morning -Fentanyl PRN pain -UDS pending -Tobacco, alcohol, and drug cessation education -Monitor and replete electrolytes per protocol -Reconcile and continue home medications -Lovenox for VTE ppx -Full code Discharge Plan: Home Plan to discharge in: 24 Hours - Advance Directives Does patient have a Living Will: No Does patient have a Durable POA for Healthcare: No - Code Status/Comfort Care Code Status Assessed: Yes (Full) Critical Care: No Time Spent Managing Pts Care (In Minutes): 50 <Jocelyn Cochran - Last Filed: 02/25/22 04:07>
[2022-02-25] MEDS: FENTANYL CITR 100 MCG/2 ML IV PRN ×2 (04:51→09:54)
[2022-02-25] MEDS ORDERED: FENTANYL CITR 100 MCG/2 ML ONE ×2 (04:55→09:48)
[2022-02-25] MEDS ORDERED: ALBUMIN HUM 5% 500 ML IV SCH (09:00)
[2022-02-25] MEDS ORDERED: ALBUMIN HUMAN 25% 100 ML IV ONE ×2 (09:00→13:55)
[2022-02-25] MEDS: ENOXAPARIN 40 MG/0.4 ML SQ SCH (09:00)
[2022-02-25] MEDS ORDERED: ONDANSETRON 4 MG/2 ML VIAL IV ONE (09:31)
[2022-02-25] MEDS ORDERED: ALBUMIN HUMAN 25% 50 ML IV ONE ×2 (09:34→15:47)
--- NOTE | 2022-02-25 10:16 | RAD REPORT ---
CLINICAL HISTORY: ABDOMINAL DISTENTION. COMPARISON: Chest radiograph from January 31, 2022. TECHNIQUE: Single view AP chest radiograph(s). FINDINGS: Opacification in the left lung base with a suspected small left-sided pleural effusion. Guardado spected trace right-sided pleural effusion. Similar appearance of trace diffuse pulmonary interstitia l thickening. Possible faint groundglass opacification in the mid left lung. No pneumothorax. Mild ca rdiomegaly. Similar appearance of the prominent convex to the right curvature of the midthoracic spin e. No free air beneath the diaphragm. IMPRESSION: Opacification in the left lung base with a suspected small left-sided pleural effusion. Suspected trace right-sided pleural effusion. Possible faint groundglass opacification in the mid lef t lung. Electronically signed by: Kathryn Aguilar MD 02/24/2022 11:16 PM CDT Due to temporary technical issues with the PACS/Fluency reporting system, reports are being signed by the in house radiologists without review as a courtesy to insure prompt reporting. The interpreting radiologist is fully responsible for the content of the report.
[2022-02-25] MEDS ORDERED: NA CHLORIDE 0.9% 250 ML ONE (11:46)
--- NOTE | 2022-02-25 12:11 | RAD REPORT ---
EXAM DESCRIPTION: US - Abdomen Exam Limited - 02/25/2022 11:57 am CLINICAL HISTORY: ascites COMPARISON: No comparisons FINDINGS: Limited abdominal sonogram was performed to assess for ascites. There is a singular pocket of ascites in the right lower quadrant which is moderate sized. Elsewhere, fluid volume is quite mil d.
--- NOTE | 2022-02-25 13:32 | EKG ---
Test Date: 2022-02-24 Test Time: 22:52:49 Roadway Engineer: MARY MEASUREMENT RESULTS: Intervals: Rate: 107 WV: 128 QRSD: 84 QT: 370 QTc: 493 [place]: P: 53 WV: 128 QRS: 71 T: 44 INTERPRETIVE STATEMENTS: Sinus tachycardia Possible Anterior infarct, age undetermined Abnormal ECG Compared to ECG 01/31/2022 22:44:32 Myocardial infarct finding now present Sinus rhythm no longer present Left ventricular hypertrophy no longer present Early repolarization no longer present Electronically Signed On 02-25-22 13:31:29 CDT by Chris Valverde
--- NOTE | 2022-02-25 13:58 | P.DS ---
Discharge Date: 02/25/22 Primary Care Provider: Kaye Reason for Admission: Ascites Requiring Paracentesis Brief History of Present Illness: Patient is a 36-year-old female who came to the hospital with abdominal distention from cirrhosis. She is scheduled for a paracentesis. Once this is completed she should be stable for discharge. She needs to follow-up as an outpatient with her windows server support technician. Her INR was supratherapeutic so we had to give her FFP's prior to paracentesis. Once this is completed she should be stable for discharge home. Hospital Course: Patient is clinically doing much better. At this time, she should be stable for discharge home. Vital Signs/Physical Exam: Temp Pulse Resp BP Pulse Ox 97.7 F 117 H 19 123/75 97 02/25/22 12:00 02/25/22 12:00 02/25/22 12:00 02/25/22 12:00 02/25/22 12:00 General: Alert, In no apparent distress, Oriented x3 Laboratory Data at Discharge: WBC 10.6 K/uL (4.3-10.9) D 02/24/22 23:10 Hgb 11.1 g/dL (12.0-15.0) L 02/24/22 23:10 Hct 32.6 % (36.0-45.0) L 02/24/22 23:10 Plt Count 140 K/uL (152-406) L D 02/24/22 23:10 PT 26.0 SECONDS (9.5-12.5) H 02/24/22 23:10 INR 2.32 02/24/22 23:10 APTT 51.2 SECONDS (24.3-36.9) H 02/24/22 23:10 Sodium 130 mmol/L (136-145) L 02/24/22 23:10 Potassium 3.9 mmol/L (3.5-5.1) 02/24/22 23:10 BUN 7 mg/dL (7-18) 02/24/22 23:10 Creatinine 0.56 mg/dL (0.55-1.3) 02/24/22 23:10 Glucose 143 mg/dL (74-106) H 02/24/22 23:10 Lipase 32 U/L (73-393) L 02/24/22 23:10 Home Medications: ARIPiprazole [Abilify Mycite] 10 mg PO BEDTIME 02/01/22 Folic Acid 1 mg PO DAILY 02/01/22 Furosemide [Lasix*] 20 mg PO DAILY 02/01/22 Lactulose 30 ml PO TID 02/01/22 Mvit-Mins/Folic Acid/Soy Isofl [One-A-Day Menopause Formula Tb] 1 tab PO DAILY 02/01/22 Spironolactone [Aldactone*] 25 mg PO DAILY 02/01/22 Thiamine HCl 100 mg PO DAILY 02/01/22 Trazodone [Desyrel*] 50 mg PO BEDTIME 02/01/22 Smz./Tmp. [Bactrim Ds 800 MG/160 MG*] 1 tab PO BID 10 Days #20 tab 02/03/22 Physician Discharge Instructions: -DC IV and DC home -Follow-up with PCP in 1 to 2 weeks -Follow-up with hepatology in 1 to 2 weeks -Please call Dr. Grimes at [phone] if any questions regarding hospital stay -Please call nursing station at [phone] if any nursing or medication questions -Return to the emergency room if symptoms worsen Diet: Low sodium Activity: Fall precautions Followup: Isiah Restrepo MD [Primary Care Provider] - Time spent managing pt's care (in minutes): 35
[2022-02-25] MEDS: LACTULOSE 20 GM/30 ML UCUP PO SCH ×2 (14:00→20:57)
[2022-02-25 14:55] LABS: Protime INR 2.04
[2022-02-25] MEDS ORDERED: LACTULOSE 20 GM/30 ML UCUP ONE (15:47)
--- NOTE | 2022-02-25 18:11 | P.OP ---
Preoperative diagnosis: Ascites Postoperative diagnosis: Ascites Primary procedure: Paracentesis Estimated blood loss: 0 Findings: Yellow peritoneal fluid Operative Technique: Pt was prepped and draped in a sterile fashio. LLQ of the abdomen was given local anesthesia with 1% lidocaine. Patient had paracentesis catheter paced with no complication. 2.5L of fluid removed. Pts fluid sent for further lab evaluation. Will give albumin afterwards. No bleeding noted. Condition: Good
[2022-02-25] MEDS ORDERED: NA CHLORIDE 0.9% 1,000 ML IV SCH (19:00)
[2022-02-25 19:47] LABS: Body Fluid Source PERITONEAL; Color of fluid Yellow (COLORLESS)
[2022-02-25 19:48] LABS: Appearance SLT. TURBID (CLEAR); Body Fluid WBC 1957 /mm^3
[2022-02-25] MEDS: ARIPiprazole 5 MG TAB PO SCH (20:56)
[2022-02-25] MEDS: PROPRANOLOL HCL 10 MG TAB PO SCH (20:56)
[2022-02-25] MEDS: chlordiazePOXIDE HCl 5 MG CAP PO SCH (20:56)
[2022-02-25] MEDS ORDERED: TRAZODONE 50 MG TABLET PO SCH (21:00)
[2022-02-26] MEDS: FOLIC ACID PO SCH (09:00)
[2022-02-26] MEDS: LACTULOSE 20 GM/30 ML UCUP PO SCH ×4 (09:00→21:58)
[2022-02-26] MEDS: PROPRANOLOL HCL 10 MG TAB PO SCH ×2 (09:00→21:58)
[2022-02-26] MEDS: [UNRECOGNIZED DRUG - OTHER] PO SCH (09:00)
[2022-02-26] MEDS: THIAMINE HCL 100 MG TABLET PO SCH (09:00)
[2022-02-26] MEDS: FOLIC ACID 1 MG TABLET PO SCH (09:00)
[2022-02-26] MEDS: FUROSEMIDE 20 MG TABLET PO SCH (09:00)
[2022-02-26] MEDS: chlordiazePOXIDE HCl 5 MG CAP PO SCH ×3 (09:00→21:00)
[2022-02-26] MEDS ORDERED: ALBUMIN HUMAN 25% 50 ML IV SCH (09:00)
[2022-02-26] MEDS: ENOXAPARIN 40 MG/0.4 ML SQ SCH (09:00)
[2022-02-26] MEDS: SPIRONOLACTONE 25 MG TABLET PO SCH (09:00)
[2022-02-26] MEDS ORDERED: DEXTROSE 10%-WATER 250 ML IV ONE (09:30)
[2022-02-26 11:31] LABS: Absolute Lymphocytes (CBC) 1.2 K/uL (0.7-4.9); Hematocrit 25.5 % (36.0-45.0); Lymphocytes % 17.7 % (15.3-44.8); MCV 93.8 fL (80-100); MPV 8.7 fL (7.6-11.3); RBC Red Blood Cell Count 2.72 M/uL (3.86-4.86)
[2022-02-26 11:33] LABS: Protime INR 3.08
[2022-02-26 11:49] LABS: Albumin 1.7 g/dL (3.4-5.0); Potassium 3.2 mmol/L (3.5-5.1); Protein, Total 5.4 g/dL (6.4-8.2)
[2022-02-26 11:53] LABS: Bilirubin Total 8.7 mg/dL (0.2-1.0)
[2022-02-26 12:51] LABS: White Blood Cell Scan OK (OK)
[2022-02-26] MEDS ORDERED: LACTULOSE 20 GM/30 ML UCUP PR ONE (13:00)
[2022-02-26 13:03] LABS: Platelet Estimate ADEQ
[2022-02-26] MEDS ORDERED: NA CHLORIDE 0.9% 250 ML ONE ×2 (13:04→18:22)
[2022-02-26 13:30] LABS: Anisocytosis 2+; Blood Morphology Comment NOTED (NOT SEEN)
[2022-02-26 13:32] LABS: Target Cells 2+
[2022-02-26] MEDS ORDERED: ALBUMIN HUMAN 25% 100 ML IV ONE (15:00)
[2022-02-26] MEDS ORDERED: FUROSEMIDE 20 MG/ 2ML VIAL IV ONE (15:00)
[2022-02-26] MEDS ORDERED: POTASSIUM PHOS 30 MM in NA CHLORIDE 0.9% 500 ML IV ONE (16:00)
[2022-02-26] MEDS: METHYLPREDNISOLONE 125 MG INJ IV SCH (16:26)
--- NOTE | 2022-02-26 16:55 | RAD REPORT ---
EXAM DESCRIPTION: RAD - Chest Single View - 02/26/2022 4:46 pm CLINICAL HISTORY: Device placement Dobhoff tube placement IMPRESSION: The tip of a Dobhoff tube lies within the proximal stomach 2.5 centimeters from the GE j unction. It should be advanced
--- NOTE | 2022-02-26 17:48 | RAD REPORT ---
EXAM DESCRIPTION: RAD - Chest Single View - 02/26/2022 5:41 pm CLINICAL HISTORY: Device placement Dobhoff tube placement IMPRESSION: The tip of a Dobhoff tube lies within the distal gastric body
[2022-02-26 20:08] LABS: Absolute Lymphocytes (CBC) 0.5 K/uL (0.7-4.9); Hematocrit 26.3 % (36.0-45.0); Lymphocytes % 8.9 % (15.3-44.8); MCV 94.3 fL (80-100); MPV 8.8 fL (7.6-11.3); RBC Red Blood Cell Count 2.79 M/uL (3.86-4.86)
[2022-02-26 20:34] LABS: Albumin 2.4 g/dL (3.4-5.0); Protein, Total 6.1 g/dL (6.4-8.2)
[2022-02-26 20:50] LABS: Bilirubin Total 9.9 mg/dL (0.2-1.0)
[2022-02-26] MEDS: ARIPiprazole 5 MG TAB PO SCH (21:00)
[2022-02-27] MEDS: METHYLPREDNISOLONE 125 MG INJ IV SCH ×4 (01:55→22:42)
[2022-02-27 07:15] LABS: Protime INR 2.91
[2022-02-27 07:18] LABS: Absolute Lymphocytes (CBC) 0.5 K/uL (0.7-4.9); Hematocrit 25.2 % (36.0-45.0); Lymphocytes % 14.8 % (15.3-44.8); MCV 93.6 fL (80-100); MPV 8.7 fL (7.6-11.3); RBC Red Blood Cell Count 2.69 M/uL (3.86-4.86)
[2022-02-27 07:40] LABS: ALT/SGPT 22 U/L (12-78); AST/SGOT 91 U/L (15-37); Albumin 2.2 g/dL (3.4-5.0); Alkaline Phosphatase 151 U/L (45-117); BUN Blood Urea Nitrogen 12 mg/dL (7-18); Bicarbonate 33 mmol/L (21-32); Folic Acid, (Folate) 8.3 ng/mL (3.1-17.5); Glomerular Filtration Rate 121 ml/min (=/>90); Glucose Level 143 mg/dL (74-106); Lipase 28 U/L (73-393); Magnesium 2.2 mg/dL (1.8-2.4); NT PRO-BNP 6585 pg/mL (<125); Potassium 3.2 mmol/L (3.5-5.1); Protein, Total 6.1 g/dL (6.4-8.2); Sodium Level 137 mmol/L (136-145)
[2022-02-27 07:45] LABS: Bilirubin Total 10.3 mg/dL (0.2-1.0)
[2022-02-27] MEDS: [UNRECOGNIZED DRUG - OTHER] PO SCH (09:00)
[2022-02-27] MEDS: chlordiazePOXIDE HCl 5 MG CAP PO SCH ×3 (09:00→21:00)
[2022-02-27] MEDS: FOLIC ACID PO SCH (09:00)
[2022-02-27 09:20] LABS: Blood Morphology Comment NOT SEEN (NOT SEEN); Platelet Estimate DECR; White Blood Cell Scan OK (OK)
[2022-02-27] MEDS: PROPRANOLOL HCL 10 MG TAB PO SCH ×2 (11:12→22:43)
[2022-02-27] MEDS: THIAMINE HCL 100 MG TABLET PO SCH (11:12)
[2022-02-27] MEDS: FOLIC ACID 1 MG TABLET PO SCH (11:12)
[2022-02-27] MEDS: SPIRONOLACTONE 25 MG TABLET PO SCH (11:12)
[2022-02-27] MEDS: LACTULOSE 20 GM/30 ML UCUP PO SCH ×3 (11:12→22:42)
[2022-02-27] MEDS: FUROSEMIDE 20 MG TABLET PO SCH (11:12)
[2022-02-27] MEDS ORDERED: FUROSEMIDE 20 MG/ 2ML VIAL IV ONE (17:37)
[2022-02-27] MEDS ORDERED: ALBUMIN HUMAN 25% 50 ML IV ONE (17:37)
--- NOTE | 2022-02-27 17:46 | P.PN ---
Subjective Date of Service: 02/26/22 Patient remains obtunded. Patient still confused. Still lethargic. Started on lactulose per rectum. Also placed on Pap and continue to give lactulose through Dobbhoff tube. Review of Systems is unable to be obtained Physical Examination - Vital Signs Temperature: 97.8 F Blood Pressure: 139/83 Pulse: 75 Respirations: 16 Pulse Ox (%): 89 - Physical Exam General: Alert, In no apparent distress, Confused Respiratory: Clear to auscultation bilaterally, Normal air movement Cardiovascular: Regular rate/rhythm, Normal S1 S2, No murmurs Gastrointestinal: Normal bowel sounds, Soft and benign, No tenderness, No rebound, No guarding, Distended Musculoskeletal: No clubbing, No swelling, No tenderness Integumentary: No rashes Neurological: Sensation intact, Cranial nerves 3-12 intact - Studies Microbiology Data (last 24 hrs): 02/25/22 18:00 Body Fluid - Abdomen Gram Stain - Final Medications List Reviewed: Yes Assessment & Plan - Problems (Diagnosis) (1) Alcoholic cirrhosis of liver with ascites Current Visit: Yes Status: Acute (2) Thrombocytopenia Current Visit: Yes Status: Acute (3) Hypertension Current Visit: Yes Status: Chronic Qualifiers: Hypertension type: primary hypertension Qualified Code(s): I10 - Essential (primary) hypertension (4) Type 2 diabetes mellitus Current Visit: Yes Status: Chronic Qualifiers: Diabetes mellitus halfway insulin use: without watermaster use Diabetes mellitus complication status: with hyperglycemia Qualified Code(s): E11.65 - Type 2 diabetes mellitus with hyperglycemia - Plan Plan: Continue with POC as mentioned below: 1. Continue with FFP's 2. Continue lactulose through Dobbhoff and check ammonia level 3. Repeat LFTs and check INR 4. If LFTs are not improved possible transfer 5. Check HIV 6. Peritoneal fluids labs pending 7. Continue with abx Discharge Plan: Home Plan to discharge in: Greater than 2 days - Advance Directives Does patient have a Living Will: No Does patient have a Durable POA for Healthcare: No - Code Status/Comfort Care Code Status Assessed: Yes Code Status: Full Code Critical Care: No Time Spent Managing PTS Care (In Minutes): 35
--- NOTE | 2022-02-27 17:59 | P.PN ---
Date of Service: 02/27/22 Subjective Patient is more awake and alert today. She is answering some questions. She is mainly saying yes and no. Reviewed peritoneal fluid and white blood cell count elevated so we will start antibiotics. Spoke with GI and they recommended transfer with elevation of liver function testing in significant coagulopathy. Review of Systems is unable to be obtained Physical Examination - Vital Signs Reviewed - Physical Exam General: Alert, In no apparent distress, Confused Respiratory: Clear to auscultation bilaterally, Normal air movement Cardiovascular: Regular rate/rhythm, Normal S1 S2, No murmurs Gastrointestinal: Normal bowel sounds, Soft and benign, No tenderness, No rebound, No guarding, Distended Musculoskeletal: No clubbing, No swelling, No tenderness Integumentary: No rashes Neurological: Sensation intact, Cranial nerves 3-12 intact - Studies Microbiology Data (last 24 hrs): 02/25/22 18:00 Body Fluid - Abdomen Gram Stain - Final Medications List Reviewed: Yes Assessment & Plan - Problems (Diagnosis) (1) Alcoholic cirrhosis of liver with ascites; acute fulminant hepatitis Current Visit: Yes Status: Acute (2) Pancytopenia Current Visit: Yes Status: Acute (3) Peritonitis Current Visit: Yes Status: Acute (4) Type 2 diabetes mellitus in the setting of hypoglycemia Current Visit: Yes Status: Chronic Qualifiers: Diabetes mellitus snf insulin use: without snf use Diabetes mellitus complication status: with hyperglycemia Qualified Code(s): E11.65 - Type 2 diabetes mellitus with hyperglycemia - Plan Plan: Continue with POC as mentioned below: 1. INR stable at 2.9. 2. Continue lactulose through Dobbhoff and check ammonia level; 3. Repeat LFTs and check INR; hepatitis panel and HIV pending 4. Initiating transfer to tertiary care facility 5. Continue with antibiotic therapy 6. Cultures pending 7. Monitor blood sugars closely Discharge Plan: Home Plan to discharge in: Greater than 2 days - Advance Directives Does patient have a Living Will: No Does patient have a Durable POA for Healthcare: No - Code Status/Comfort Care Code Status Assessed: Yes Code Status: Full Code Critical Care: No Time Spent Managing PTS Care (In Minutes): 35
[2022-02-27] MEDS ORDERED: Levofloxacin500mg IV 500 MG/100 ML BAG IV SCH (18:00)
[2022-02-27] MEDS: METRONIDAZOLE 500mg IVPB 500 MG/100 ML BAG IV SCH (18:20)
[2022-02-27 20:36] LABS: Protime INR 3.44
[2022-02-27] MEDS: ARIPiprazole 5 MG TAB PO SCH (21:00)
[2022-02-28] MEDS ORDERED: METHYLPREDNISOLONE 125 MG INJ IV SCH (01:00)
[2022-02-28] MEDS: METRONIDAZOLE 500mg IVPB 500 MG/100 ML BAG IV SCH ×2 (01:15→06:00)
[2022-02-28 03:38] VITALS: BMI 17.8
[2022-02-28 06:31] LABS: Absolute Lymphocytes (CBC) 0.5 K/uL (0.7-4.9); Hematocrit 28.4 % (36.0-45.0); Lymphocytes % 9.6 % (15.3-44.8); MCV 95.6 fL (80-100); MPV 8.5 fL (7.6-11.3); RBC Red Blood Cell Count 2.98 M/uL (3.86-4.86)
[2022-02-28 06:32] LABS: Protime INR 3.57
[2022-02-28 06:51] LABS: Albumin 2.2 g/dL (3.4-5.0); Bilirubin Total 8.7 mg/dL (0.2-1.0); Protein, Total 5.9 g/dL (6.4-8.2)
[2022-02-28 06:55] LABS: Potassium 2.7 mmol/L (3.5-5.1)
[2022-02-28] MEDS: KCL 20 MEQ/100 mL IVPB 20 MEQ/100 ML BAG IV SCH ×3 (07:43→23:28)
[2022-02-28] MEDS ORDERED: NA CHLORIDE 0.9% 250 ML ONE (07:44)
--- NOTE | 2022-02-28 07:53 | P.DS ---
Admission Date: 02/26/22 Discharge Date: 02/28/22 Primary Care Provider: Dr. Restrepo Disposition: TRANSFER TO [facility] Comment: [facility] Discharge Condition: FAIR Reason for Admission: Ascites Requiring Paracentesis Procedures: - 02/25/2022 - Paracentesis Hospital Course: DIAGNOSES: # Acute Alcoholic Hepatitis (Maddrey's Discriminant Function Score 133.6) # Acute Decompensated Liver Failure in Alcoholic Cirrhosis (MELD 29) requiring paracentesis # Acute Toxic Metabolic Encephalopathy secondary to above # Alcohol Use Disorder # Hypokalemia # Pancytopenia secondary to Liver Cirrhosis # Type II Diabetes Mellitus # Hypertension HOSPITAL COURSE: Ms. Divina Collazo is a 36 year old female with a past medical history significant for alcohol use disorder complicated by alcoholic cirrhosis, type II diabetes mellitus, and hypertension who was admitted to the [facility] on 02/25/2022 for abdominal distention. She was initially admitted under observation status with a plan for discharge following paracentesis. Shortly after admission, she became significantly altered and obtunded. Further evaluation would be concerning for acute alcoholic hepatitis and concern for fulminant liver failure. Given that we do not have any Gastroenterology or Hepatology coverage, a transfer to a tertiary care center was initiated. A three-way doc-to-doc was completed between myself, Dr. Marrero ([facility] Hospitalist), and Dr. Hannah ([facility] Hepatology), who have generously accepted her for transfer. They have requested lactulose HI x 1 prior to transfer, which has been ordered. On 02/28/2022, she was seen on morning rounds and deem medically stable for transfer. Prior to transfer, she had been given antibiotics for SBP coverage and methylprednisolone for alcoholic hepatitis. Today, I personally spent 20 minutes on her case, of which greater than 50% of the time was spent in coordination of care as described above. Vital Signs/Physical Exam: Temp Pulse Resp BP Pulse Ox 97.9 F 73 18 159/90 H 95 02/28/22 07:52 02/28/22 07:52 02/28/22 07:52 02/28/22 07:52 02/28/22 07:52 General: In no apparent distress, Delirious, Other (A&O x 0. Shouting incomprehensible phrases in room.) HEENT: Atraumatic, Mucous membr. moist/pink, Scleral icterus Neck: Supple, JVD not distended Respiratory: Clear to auscultation bilaterally, Diminished Cardiovascular: No edema, Regular rate/rhythm, Normal S1 S2, No gallops, No rubs, No murmurs Gastrointestinal: No rebound, Distended, Ascites, Tenderness, Guarding Musculoskeletal: No clubbing Integumentary: No rashes Neurological: Other (altered. Neuro exam limited due to poor patient participation.) Laboratory Data at Discharge: WBC 5.1 K/uL (4.3-10.9) D 02/28/22 06:18 Hgb 9.7 g/dL (12.0-15.0) L 02/28/22 06:18 Hct 28.4 % (36.0-45.0) L 02/28/22 06:18 Plt Count 89 K/uL (152-406) L* 02/28/22 06:18 PT 40.3 SECONDS (9.5-12.5) H 02/28/22 06:18 INR 3.57 02/28/22 06:18 APTT 39.3 SECONDS (24.3-36.9) H 02/27/22 19:58 Sodium 138 mmol/L (136-145) 02/28/22 06:18 Potassium 2.7 mmol/L (3.5-5.1) L* 02/28/22 06:18 BUN 13 mg/dL (7-18) 02/28/22 06:18 Creatinine 0.53 mg/dL (0.55-1.3) L 02/28/22 06:18 Glucose 157 mg/dL (74-106) H 02/28/22 06:18 Magnesium 2.2 mg/dL (1.8-2.4) 02/27/22 06:40 Total Bilirubin 8.7 mg/dL (0.2-1.0) H* 02/28/22 06:18 AST 72 U/L (15-37) H 02/28/22 06:18 ALT 23 U/L (12-78) 02/28/22 06:18 Alkaline Phosphatase 136 U/L (45-117) H 02/28/22 06:18 Lipase 28 U/L (73-393) L 02/27/22 06:40 Home Medications: ARIPiprazole [Abilify Mycite] 10 mg PO BEDTIME 02/01/22 Folic Acid 1 mg PO DAILY 02/01/22 Furosemide [Lasix*] 20 mg PO DAILY 02/01/22 Lactulose 30 ml PO TID 02/01/22 Mvit-Mins/Folic Acid/Soy Isofl [One-A-Day Menopause Formula Tb] 1 tab PO DAILY 02/01/22 Spironolactone [Aldactone*] 25 mg PO DAILY 02/01/22 Thiamine HCl 100 mg PO DAILY 02/01/22 Trazodone [Desyrel*] 50 mg PO BEDTIME 02/01/22 Smz./Tmp. [Bactrim Ds 800 MG/160 MG*] 1 tab PO BID 10 Days #20 tab 02/03/22 Methylpred Na Suc [Solu-Medrol*] 60 mg IV Q12HR vial 02/28/22 Propranolol [Inderal*] 20 mg PO BID tab 02/28/22 Diet: Low sodium Activity: Fall precautions Followup: Isiah Restrepo MD [Primary Care Provider] -
--- NOTE | 2022-02-28 08:32 | RAD REPORT ---
EXAM DESCRIPTION: RAD - Chest Single View - 02/28/2022 5:46 am CLINICAL HISTORY: pneumonia Chest pain. COMPARISON: Chest Single View dated 02/26/2022; Chest Single View dated 02/26/2022; Chest Single View dated 02/24/2022; Chest Single View dated 01/31/2022 FINDINGS: Portable technique limits examination quality. Since 02/26/2022, there has been significant worsening of bilateral pulmonary opacities, more severe on the right. The heart is moderately enlarged. Enteric tube descends into the upper abdomen.Prominen t S-shaped scoliosis of the spine. IMPRESSION: Significant worsening of lung aeration seen since comparative study.
[2022-02-28] MEDS: FOLIC ACID PO SCH (09:00)
[2022-02-28] MEDS: [UNRECOGNIZED DRUG - OTHER] PO SCH (09:00)
[2022-02-28] MEDS ORDERED: LACTULOSE 20 GM/30 ML UCUP PR ONE (09:38)
[2022-02-28] MEDS: THIAMINE HCL 100 MG TABLET PO SCH (10:39)
[2022-02-28] MEDS: chlordiazePOXIDE HCl 5 MG CAP PO SCH ×3 (10:39→21:39)
[2022-02-28] MEDS: PIPER TAZO 3.375 GM in NA CHLORIDE 0.9% 100 ML IV SCH ×2 (10:39→17:00)
[2022-02-28] MEDS: FUROSEMIDE 20 MG TABLET PO SCH (10:39)
[2022-02-28] MEDS: SPIRONOLACTONE 25 MG TABLET PO SCH (10:40)
[2022-02-28] MEDS: LACTULOSE 20 GM/30 ML UCUP PO SCH ×3 (10:40→21:39)
[2022-02-28] MEDS: PROPRANOLOL HCL 10 MG TAB PO SCH ×2 (10:40→21:41)
[2022-02-28] MEDS: FOLIC ACID 1 MG TABLET PO SCH (10:40)
[2022-02-28] MEDS: METHYLPREDNISOLONE 125 MG INJ IV SCH ×2 (10:41→21:38)
[2022-02-28 12:15] LABS: Urine Blood 2+ (Negative); Urine Clarity Clear (Clear); Urine Glucose Negative (Negative); Urine Protein 2+ (Negative)
[2022-02-28 12:20] LABS: Urine Color Dark-Yellow (Yellow)
[2022-02-28 12:37] LABS: Urine Bacteria 20-50 /HPF (<20); Urine Mucus 1+ /HPF (None Seen); Urine RBC 21-50 /HPF (None Seen)
[2022-02-28] MEDS ORDERED: KCL 20 MEQ/100 mL IVPB 20 MEQ/100 ML BAG IV SCH (13:00)
[2022-02-28] MEDS ORDERED: MIDAZOLAM HCL 2 MG/2 ML INJ IV ONE (13:00)
[2022-02-28 13:29] LABS: Urine Bilirubin 3+ (Negative)
[2022-02-28] MEDS: ARIPiprazole 5 MG TAB PO SCH (21:41)
[2022-03-01] MEDS: KCL 20 MEQ/100 mL IVPB 20 MEQ/100 ML BAG IV SCH
[2022-03-01] MEDS ORDERED: POTASSIUM 25 MEQ EFFERV TAB PO ONE (00:29)
[2022-03-01] MEDS: Meropenem 1,000 MG in NA CHLORIDE 0.9% 100 ML IV SCH ×3 (00:49→16:36)
[2022-03-01] MEDS ORDERED: NA CHLORIDE 0.9% 250 ML ONE (01:31)
[2022-03-01 07:06] LABS: Potassium 3.7 mmol/L (3.5-5.1)
[2022-03-01] MEDS: LACTULOSE 20 GM/30 ML UCUP PO SCH ×3 (08:57→21:49)
[2022-03-01] MEDS: FOLIC ACID 1 MG TABLET PO SCH (08:57)
[2022-03-01] MEDS: PROPRANOLOL HCL 10 MG TAB PO SCH ×2 (08:57→21:50)
[2022-03-01] MEDS: chlordiazePOXIDE HCl 5 MG CAP PO SCH ×3 (08:57→21:50)
[2022-03-01] MEDS: METHYLPREDNISOLONE 125 MG INJ IV SCH ×2 (08:57→21:49)
[2022-03-01] MEDS: FUROSEMIDE 20 MG TABLET PO SCH (08:58)
[2022-03-01] MEDS: SPIRONOLACTONE 25 MG TABLET PO SCH (08:58)
[2022-03-01] MEDS: [UNRECOGNIZED DRUG - OTHER] PO SCH (08:58)
[2022-03-01] MEDS: THIAMINE HCL 100 MG TABLET PO SCH (08:58)
[2022-03-01] MEDS: FOLIC ACID PO SCH (08:58)
--- NOTE | 2022-03-01 15:29 | P.PN ---
Subjective Date of Service: 03/01/22 Primary Care Provider: Dr. Restrepo Chief Complaint: Ascites Requiring Paracentesis Subjective: No new changes No acute events overnight. She remains alert and oriented x 0. She has been accepted for transfer to both [facility] (accepting physicians: Dr. Marrero ([facility]) and Dr. Hannah ([facility])) and [facility] (accepting physicians: Dr. Robin ([facility]) and Dr. Tobin ([facility])). Transfer is pending an available IMU bed. Review of Systems is unable to be obtained Physical Examination - Vital Signs Temperature: 97.7 F Blood Pressure: 158/68 Pulse: 68 Respirations: 18 Pulse Ox (%): 96 - Studies Medications List Reviewed: Yes Assessment And Plan - Plan PHYSICAL EXAM: General: In no apparent distress, Delirious, Other (A&O x 0. Shouting incomprehensible phrases in room.) HEENT: Atraumatic, Mucous membr. moist/pink, Scleral icterus Neck: Supple, JVD not distended Respiratory: Clear to auscultation bilaterally, Diminished Cardiovascular: No edema, Regular rate/rhythm, Normal S1 S2, No gallops, No rubs, No murmurs Gastrointestinal: No rebound, Distended, Ascites, Tenderness, Guarding Musculoskeletal: No clubbing Integumentary: No rashes Neurological: Other (altered. Neuro exam limited due to poor patient participation.) ASSESSMENT/PLAN: # Acute Alcoholic Hepatitis (Maddrey's Discriminant Function Score 133.6) # Acute Decompensated Liver Failure in Alcoholic Cirrhosis (MELD 29) requiring paracentesis # Acute Toxic Metabolic Encephalopathy secondary to above # Recent ESBL Urinary Tract Infection (January 2022) # Alcohol Use Disorder # Hypokalemia # Pancytopenia secondary to Liver Cirrhosis # Type II Diabetes Mellitus # Hypertension She has remained hemodynamically stable, but prognosis is poor. - Switched to meropenem given UTI and history of ESBL - Continue methylprednisolone for alcoholic hepatitis - Continue chlordiazepoxide for prevention of alcohol withdrawal syndrome - q4hr neuro checks - She has been accepted for transfer to both [facility] (accepting physicians: Dr. Marrero ([facility]) and Dr. Hannah ([facility])) and [facility] (accepting physicians: Dr. Robin ([facility]) and Dr. Tobin ([facility])). Transfer is pending an available IMU bed. Carrillo Ibanez M.D. Discharge Plan: Transfer Plan to discharge in: Unknown ([facility] or [facility] - based on first available IMU bed)
[2022-03-01] MEDS ORDERED: NA CHLORIDE 0.9% 100 ML ONE (16:38)
[2022-03-01] MEDS ORDERED: Meropenem 1000 MG/VIAL IV ONE (16:41)
[2022-03-01] MEDS: ARIPiprazole 5 MG TAB PO SCH (21:51)
[2022-03-01] MEDS ORDERED: FUROSEMIDE 40 MG/4 ML VIAL IV ONE (23:52)
[2022-03-02] MEDS ORDERED: FUROSEMIDE 40 MG/4 ML VIAL ONE (00:01)
[2022-03-02 00:30] LABS: Hematocrit 30.7 % (36.0-45.0); MCV 98.1 fL (80-100); MPV 9.4 fL (7.6-11.3); RBC Red Blood Cell Count 3.13 M/uL (3.86-4.86)
[2022-03-02 00:39] LABS: Albumin 2.2 g/dL (3.4-5.0); Potassium 3.7 mmol/L (3.5-5.1); Protein, Total 6.2 g/dL (6.4-8.2)
[2022-03-02 00:41] LABS: Bilirubin Total 8.7 mg/dL (0.2-1.0)
[2022-03-02 00:53] LABS: Arterial Blood Carboxyhemoglob 1.7 % (0-1.5); Blood Gas Oxyhemoglobin 96.7 % (94-97); Blood O2 Saturation 99.1 % (92-98.5)
[2022-03-02] MEDS: Meropenem 1,000 MG in NA CHLORIDE 0.9% 100 ML IV SCH ×3 (01:00→17:42)
[2022-03-02 01:01] LABS: Blood Morphology Comment NOT SEEN (NOT SEEN); Platelet Estimate ADEQ; White Blood Cell Scan OK (OK)
[2022-03-02] MEDS: AZITHROMYCIN IV 500 MG in NA CHLORIDE 0.9% 250 ML IVPB SCH ×2 (03:06→07:19)
[2022-03-02] MEDS ORDERED: VANCOMYCIN 1 GM in NA CHLORIDE 0.9% 250 ML IVPB SCH ×2 (04:00→12:00)
[2022-03-02 04:10] LABS: Absolute Lymphocytes (CBC) 0.6 K/uL (0.7-4.9); Hematocrit 30.1 % (36.0-45.0); Lymphocytes % 7.3 % (15.3-44.8); MCV 97.9 fL (80-100); MPV 9.3 fL (7.6-11.3); RBC Red Blood Cell Count 3.07 M/uL (3.86-4.86)
[2022-03-02 04:11] LABS: Protime INR 2.96
[2022-03-02 04:24] LABS: Albumin 2.1 g/dL (3.4-5.0)
[2022-03-02 04:28] LABS: Bilirubin Total 9.1 mg/dL (0.2-1.0); Potassium 2.8 mmol/L (3.5-5.1)
[2022-03-02 04:49] LABS: Blood Morphology Comment NOTED (NOT SEEN); Hypochromasia 1+; Ovalocytes 1+; Platelet Estimate DECR; Target Cells 1+; White Blood Cell Scan OK (OK)
[2022-03-02] MEDS ORDERED: NA CHLORIDE 0.9% 500 ML ONE (05:10)
[2022-03-02] MEDS: KCL 20 MEQ/100 mL IVPB 20 MEQ/100 ML BAG IV SCH ×3 (05:44→10:04)
[2022-03-02] MEDS: [UNRECOGNIZED DRUG - OTHER] PO SCH (07:20)
[2022-03-02] MEDS: FOLIC ACID PO SCH (07:20)
[2022-03-02] MEDS: PROPRANOLOL HCL 10 MG TAB PO SCH (09:00)
[2022-03-02] MEDS: chlordiazePOXIDE HCl 5 MG CAP PO SCH ×2 (09:00→13:49)
[2022-03-02] MEDS: SPIRONOLACTONE 25 MG TABLET PO SCH (09:15)
[2022-03-02] MEDS: THIAMINE HCL 100 MG TABLET PO SCH (09:16)
[2022-03-02] MEDS: METHYLPREDNISOLONE 125 MG INJ IV SCH (09:16)
[2022-03-02] MEDS: FOLIC ACID 1 MG TABLET PO SCH (09:16)
[2022-03-02] MEDS: FUROSEMIDE 20 MG TABLET PO SCH (09:16)
[2022-03-02] MEDS: LACTULOSE 20 GM/30 ML UCUP PO SCH ×2 (09:17→13:49)
[2022-03-02] MEDS ORDERED: PROPRANOLOL HCL 10 MG TAB PO SCH (10:00)
--- NOTE | 2022-03-02 10:35 | RAD REPORT ---
EXAM DESCRIPTION: Chest Single View CLINICAL HISTORY: 6 years Female, desat COMPARISON: Chest radiograph dated February 24, 2022 IMPRESSION: Incompletely evaluated nasogastric tube. Bilateral interstitial opacities, worsened from prior exam highly suggestive of pneumonia. No pleural effusion. No pneumothorax. Cardiomediastinal silhouette is enlarged. No acute osseous abnormality. Electronically signed by: Edwin Dan DO 03/02/2022 12:35 AM CDT Due to temporary technical issues with the PACS/Fluency reporting system, reports are being signed by the in house radiologists without review as a courtesy to insure prompt reporting. The interpreting radiologist is fully responsible for the content of the report.
--- NOTE | 2022-03-02 11:41 | RAD REPORT ---
EXAM DESCRIPTION: CT Angiography Chest With Intravenous Contrast CLINICAL HISTORY: Hypoxia, elevated DD R/O PE TECHNIQUE: Axial computed tomographic angiography images of the chest with intravenous contrast. S agittal and coronal reformatted images were created and reviewed. This CT exam was performed using one or more of the following dose reduction techniques: automated exposure control, adjustment of t he mA and/or kV according to patient size, and/or use of iterative reconstruction technique. MIP reconstructed images were created and reviewed. COMPARISON: Chest CT dated 10/28/2021 FINDINGS: Artifacts: Motion artifact degrades image quality and limits evaluation of segmental and subsegmental vessels. Pulmonary arteries: Prominence of the main pulmonary artery which can be seen in the setting of pul monary arterial hypertension. No central or proximal segmental pulmonary arterial filling defects. Aorta: No acute findings. No thoracic aortic aneurysm. Lungs: Biapical paraseptal emphysema. Extensive multifocal groundglass opacities within the lungs b ilaterally. Mild left basilar consolidation. Pleural space: The small bowel bilateral pleural effusions, left greater than right. No pneumotho rax. Heart: The heart is mildly enlarged. No significant pericardial effusion. No evidence of RV dys function. Mediastinum: Mildly enlarged mediastinal lymph nodes measuring up to 12 mm in short axis. Small h iatal hernia. Bones/joints: Thoracolumbar shaped scoliosis. No acute fracture. No dislocation. Soft tissues: Unremarkable. Lymph nodes: See above. Liver: The liver is enlarged and diffusely low in density compatible with steatosis. Intraperitoneal space: Small amount of free fluid in the upper abdomen. Tubes, lines and devices: Feeding tube in place. The distal visualized portion is seen within the s tomach. IMPRESSION: 1. Motion artifact degrades image quality and limits evaluation of segmental and subse gmental vessels. No central or proximal segmental pulmonary embolic disease. 2. Diffuse multifocal infiltrates. 3. Other findings as above. Electronically signed by: Chidi Cortez MD 03/02/2022 2:59 AM CDT Due to temporary technical issues with the PACS/Fluency reporting system, reports are being signed by the in house radiologists without review as a courtesy to insure prompt reporting. The interpreting radiologist is fully responsible for the content of the report.
[2022-03-02] MEDS ORDERED: KCL 20 MEQ/100 mL IVPB 20 MEQ/100 ML BAG IV ONE (16:00)
--- NOTE | 2022-03-02 17:06 | P.PN ---
Subjective Date of Service: 03/02/22 Primary Care Provider: Dr. Restrepo Chief Complaint: Ascites Requiring Paracentesis Overnight, she became hypoxic and was transferred to the ICU. She was placed on BiPAP and has been weaned down to nasal cannula this morning. CT was concerning for multifocal pneumonia. She remains alert and oriented x 0. A new doc-to-doc was completed with Dr. London Zafar ([facility] ICU). Transfer is pending an available ICU bed. Review of Systems is unable to be obtained Physical Examination - Vital Signs Temperature: 97.2 F Blood Pressure: 132/84 Pulse: 73 Respirations: 27 Pulse Ox (%): 98 - Studies Medications List Reviewed: Yes Assessment And Plan - Plan PHYSICAL EXAM: General: In no apparent distress, Delirious, Other (A&O x 0. Shouting incomprehensible phrases in room.) HEENT: Atraumatic, Mucous membr. moist/pink, Scleral icterus Neck: Supple, JVD not distended Respiratory: SpO2 100 % on 4 L NC. Coarse breaths sounds with rhonchi Cardiovascular: No edema, Regular rate/rhythm, Normal S1 S2, No gallops, No rubs, No murmurs Gastrointestinal: No rebound, Distended, Ascites, Tenderness, Guarding Musculoskeletal: No clubbing Integumentary: No rashes Neurological: Other (altered. Neuro exam limited due to poor patient participation.) ASSESSMENT/PLAN: # Acute Alcoholic Hepatitis (Maddrey's Discriminant Function Score 133.6) # Acute Decompensated Liver Failure in Alcoholic Cirrhosis (MELD 29) requiring paracentesis # Acute Toxic Metabolic Encephalopathy secondary to above # Acute Hypoxic Respiratory Failure secondary to Multifocal Pneumonia # Recent ESBL Urinary Tract Infection (January 2022) # Alcohol Use Disorder # Hypokalemia # Pancytopenia secondary to Liver Cirrhosis # Type II Diabetes Mellitus # Hypertension She has remained hemodynamically stable, but prognosis is poor. - Switched to meropenem given UTI and history of ESBL - Started on vancomycin and azithromycin overnight for multifocal pneumonia - Does not meet sepsis criteria (HR charted at 138 at 11:00 AM) was inaccurate - Continue methylprednisolone for alcoholic hepatitis - Continue chlordiazepoxide for prevention of alcohol withdrawal syndrome - q4hr neuro checks - She has been accepted for transfer to both [facility] (accepting physicians: Dr. Marrero ([facility]) and Dr. Hannah ([facility])) and [facility] (accepting physicians: Dr. Robin ([facility]) and Dr. Tobin ([facility])). Repeat [facility] ICU doc-to-doc completed with Dr. London Zafar today. Carrillo Ibanez M.D. Discharge Plan: Transfer Plan to discharge in: Unknown
[2022-03-02 19:22] LABS: HIV AG/AB 4TH GEN Non-reactive (Non-reactive)
[2022-03-02] MEDS ORDERED: FUROSEMIDE 20 MG/ 2ML VIAL IV ONE (20:30)
[2022-03-02] MEDS ORDERED: FUROSEMIDE 20 MG/ 2ML VIAL ONE (20:36)
[2022-03-02] MEDS ORDERED: RSI MEDICATION KIT IV ONE (20:39)
--- NOTE | 2022-03-02 21:19 | P.DS ---
Admission Date: 02/26/22 Discharge Date: 03/02/22 Primary Care Provider: Dr. Restrepo Reason for Admission: Ascites Requiring Paracentesis Consultations: Pulmonology-Dr. Roe Procedures: CXR 03/01/2022 COMPARISON: Chest radiograph dated February 24, 2022 IMPRESSION: Incompletely evaluated nasogastric tube. Bilateral interstitial opacities, worsened from prior exam highly suggestive of pneumonia. No pleural effusion. No pneumothorax. Cardiomediastinal silhouette is enlarged. No acute osseous abnormality. CTA CHEST FOR PE 03/02/2022 FINDINGS: Artifacts: Motion artifact degrades image quality and limits evaluation of segmental and subsegmental vessels. Pulmonary arteries: Prominence of the main pulmonary artery which can be seen in the setting of pulmonary arterial hypertension. No central or proximal segmental pulmonary arterial filling defects. Aorta: No acute findings. No thoracic aortic aneurysm. Lungs: Biapical paraseptal emphysema. Extensive multifocal groundglass opacities within the lungs bilaterally. Mild left basilar consolidation. Pleural space: The small bowel bilateral pleural effusions, left greater than right. No pneumothorax. Heart: The heart is mildly enlarged. No significant pericardial effusion. No evidence of RV dysfunction. Mediastinum: Mildly enlarged mediastinal lymph nodes measuring up to 12 mm in short axis. Small hiatal hernia. Bones/joints: Thoracolumbar shaped scoliosis. No acute fracture. No dislocation. Soft tissues: Unremarkable. Lymph nodes: See above. Liver: The liver is enlarged and diffusely low in density compatible with steatosis. Intraperitoneal space: Small amount of free fluid in the upper abdomen. Tubes, lines and devices: Feeding tube in place. The distal visualized portion is seen within the stomach. IMPRESSION: 1. Motion artifact degrades image quality and limits evaluation of segmental and subsegmental vessels. No central or proximal segmental pulmonary embolic disease. 2. Diffuse multifocal infiltrates. 3. Other findings as above. ABUS 02/25/22 Limited abdominal sonogram was performed to assess for ascites. There is a singular pocket of ascites in the right lower quadrant which is moderate sized. Elsewhere, fluid volume is quite mild. Paracentesis 02/25/2022 2.5L fluid removed. albumin given ASSESSMENT/PLAN: # Acute Alcoholic Hepatitis (Maddrey's Discriminant Function Score 133.6) # Acute Decompensated Liver Failure in Alcoholic Cirrhosis (MELD 29) requiring paracentesis # Acute Toxic Metabolic Encephalopathy secondary to above # Acute Hypoxic Respiratory Failure secondary to Multifocal Pneumonia # Recent ESBL Urinary Tract Infection (January 2022) # Alcohol Use Disorder # Hypokalemia # Pancytopenia secondary to Liver Cirrhosis # Type II Diabetes Mellitus # Hypertension Brief History of Present Illness: Patient is a 36-year-old female with history of cirrhosis of the liver secondary to alcohol abuse, hypertension, and history of opioid abuse who presented to the ED with complaints of worsening abdominal pain and swelling. Her abdomen is noted to be moderately distended due to ascites. Patient reports that she had a paracentesis at [facility] back in August. She states that she has not been taking her lactulose. She has been in and out of rehab for alcoholism but reports drinking last night. Serum alcohol 225. Other labs significant for platelet 140, PT 26, APTT 51.2, sodium 130, ammonia WNL. Vital signs stable. ED provider wishes to admit patient for observation to have paracentesis via IR in morning. Hospital Course: Patient with history of alcoholic cirrhosis of liver was admitted for planned paracentesis, during hospitalization became increasingly altered. Transfer initiated to tertiary centers on the for fulminant/decompensated liver failure, pending a bed since then. On the night of 03/01/2022 patient developed hypoxia, dyspnea CT was performed rule pulmonary embolism which revealed diffuse multifocal pneumonia. Patient antibiotics were broadened from meropenem which she was initially on for ESBL to Merrem, Vanco and Zithromax. Patient was on about 5 L of oxygen throughout the day today but this evening became dyspneic, tachypneic and hypoxic, her mental status worsened and she became unresponsive. Patient was intubated in the ICU, attending physician reached back out to transfer center and patient was accepted to [facility] ICU for further management at a tertiary center with higher level of care. Discussed case with at length who understood. Very poor prognosis was explained to who verbalized understanding of her condition. <Basil Sesay - Last Filed: 03/02/22 21:19> Admission Date: 02/26/22 Discharge Date: 03/03/22 <Carrillo Ibanez - Last Filed: 03/03/22 21:26> Disposition: TRANSFER TO [facility] Discharge Condition: SERIOUS Vital Signs/Physical Exam: Temp Pulse Resp BP Pulse Ox 97.2 F 99 H 36 H 129/88 99 03/02/22 17:16 08/17/22 20:00 03/02/22 20:00 03/02/22 20:00 03/02/22 20:00 General: Unresponsive HEENT: Atraumatic Neck: Supple Respiratory: Crackles/rales Cardiovascular: No edema, Normal S1 S2 Capillary refill: <2 Seconds Gastrointestinal: Distended Musculoskeletal: No erythema, No tenderness Integumentary: No significant lesion, No tenderness/swelling Neurological: Other (unresponsive) Laboratory Data at Discharge: WBC 8.50 K/uL (4.3-10.9) D 03/02/22 03:51 Hgb 10.1 g/dL (12.0-15.0) L 03/02/22 03:51 Hct 30.1 % (36.0-45.0) L 03/02/22 03:51 Plt Count 98 K/uL (152-406) L* 03/02/22 03:51 PT 33.3 SECONDS (9.5-12.5) H 03/02/22 03:51 INR 2.96 03/02/22 03:51 APTT 39.3 SECONDS (24.3-36.9) H 02/27/22 19:58 Sodium 141 mmol/L (136-145) 03/02/22 03:51 Potassium Cancelled 03/02/22 Unknown BUN 16 mg/dL (7-18) 03/02/22 03:51 Creatinine 0.51 mg/dL (0.55-1.3) L 03/02/22 03:51 Glucose 150 mg/dL (74-106) H 03/02/22 03:51 Magnesium 2.1 mg/dL (1.8-2.4) 03/02/22 03:51 Total Bilirubin 9.1 mg/dL (0.2-1.0) H* 03/02/22 03:51 AST 86 U/L (15-37) H 03/02/22 03:51 ALT 30 U/L (12-78) 03/02/22 03:51 Alkaline Phosphatase 142 U/L (45-117) H 03/02/22 03:51 Lipase 28 U/L (73-393) L 02/27/22 06:40 <Basil Sesay - Last Filed: 03/02/22 21:19> Vital Signs/Physical Exam: Temp Pulse Resp BP Pulse Ox 97.4 F 93 H 26 H 128/95 H 100 03/02/22 20:00 03/02/22 22:15 03/02/22 22:15 03/02/22 22:15 03/02/22 22:15 Laboratory Data at Discharge: WBC Cancelled 03/03/22 05:00 Hgb Cancelled 03/03/22 05:00 Hct Cancelled 03/03/22 05:00 Plt Count Cancelled 03/03/22 05:00 PT 33.3 SECONDS (9.5-12.5) H 03/02/22 03:51 INR 2.96 03/02/22 03:51 APTT 39.3 SECONDS (24.3-36.9) H 02/27/22 19:58 Sodium Cancelled 03/03/22 05:00 Potassium Cancelled 03/03/22 05:00 BUN Cancelled 03/03/22 05:00 Creatinine Cancelled 03/03/22 05:00 Glucose Cancelled 03/03/22 05:00 Magnesium 2.1 mg/dL (1.8-2.4) 03/02/22 03:51 Total Bilirubin Cancelled 03/03/22 05:00 AST Cancelled 03/03/22 05:00 ALT Cancelled 03/03/22 05:00 Alkaline Phosphatase Cancelled 03/03/22 05:00 Lipase 28 U/L (73-393) L 02/27/22 06:40 <Carrillo Ibanez - Last Filed: 03/03/22 21:26> Diet: NPO Activity: Fall precautions Time spent managing pt's care (in minutes): 55 <Basil Sesay - Last Filed: 03/02/22 21:19> Physician Review: Patient Assessed, Agree with Above Assessment and Plan <Carrillo Ibanez - Last Filed: 03/03/22 21:26> Home Medications: ARIPiprazole [Abilify Mycite] 10 mg PO BEDTIME 02/01/22 Folic Acid 1 mg PO DAILY 02/01/22 Furosemide [Lasix*] 20 mg PO DAILY 02/01/22 Lactulose 30 ml PO TID 02/01/22 Mvit-Mins/Folic Acid/Soy Isofl [One-A-Day Menopause Formula Tb] 1 tab PO DAILY 02/01/22 Spironolactone [Aldactone*] 25 mg PO DAILY 02/01/22 Thiamine HCl 100 mg PO DAILY 02/01/22 Trazodone [Desyrel*] 50 mg PO BEDTIME 02/01/22 Smz./Tmp. [Bactrim Ds 800 MG/160 MG*] 1 tab PO BID 10 Days #20 tab 02/03/22 Methylpred Na Suc [Solu-Medrol*] 60 mg IV Q12HR vial 02/28/22 Propranolol [Inderal*] 20 mg PO BID tab 02/28/22 Physician Discharge Instructions: Continue with plan of care at [facility] ICU Followup: Isiah Restrepo MD [Primary Care Provider] -
[2022-03-02] MEDS ORDERED: propofoL 1,000 MG/100 ML VIAL IV SCH (21:30)
[2022-03-02] MEDS ORDERED: propofoL 500 MG/50 ML ML IV PRN (21:32)
[2022-03-02] MEDS ORDERED: propofoL 1,000 MG/100 ML VIAL IV ONE (21:34)
--- NOTE | 2022-03-02 21:44 | RAD REPORT ---
EXAM DESCRIPTION: RAD - Chest Single View - 03/02/2022 9:11 pm CLINICAL HISTORY: ET PLACEMENT COMPARISON: Portable 03/02/2022 TECHNIQUE: AP portable chest image was obtained 03/02/2022 9:11 pm . FINDINGS: Endotracheal tube is in place with the tip 3 cm above lillie. Feeding tube extends below t he diaphragm, off the field of view. Extensive airspace opacification is present in the right lung field and in the upper left lung field. Pattern is not substantially different from comparison. Heart and vasculature are normal. No measurable pleural effusion and no pneumothorax. No acute bony abnormality seen. No acute aortic findings suspected. IMPRESSION: ET tube has been placed in good position 3 cm above the lillie. Extensive bilateral airspace opacification similar to comparison.
[2022-03-02 22:27] LABS: Arterial Blood Carboxyhemoglob 1.6 % (0-1.5); Blood Gas Oxyhemoglobin 87.1 % (94-97); Blood O2 Saturation 89.3 % (92-98.5)
[2022-03-02] MEDS ORDERED: SUCCINYLCHOLINE 20 MG/ML (10 ML) IV ONE (22:29)
[2022-03-02] MEDS ORDERED: ETOMIDATE 20 MG/10 ML VIAL IV ONE (22:29)
[2022-03-02] MEDS ORDERED: NA CHLORIDE 0.9% 1,000 ML ONE (22:46)
[2022-03-02 23:07] VITALS: TEMP 97.4
[2022-03-02 23:46] VITALS: O2SAT 95
[2022-03-03 00:53] LABS: GLUCOSE, PERITONEAL FLUID 82 mg/dL; LD, PERITONEAL FLUID 21 U/L (<63); TOTAL PROTEIN,PERITONEAL FLUID <3.0 g/dL
[2022-03-03] MEDS ORDERED: propofoL 1,000 MG/100 ML VIAL IV SCH (01:00)
[2022-03-03 01:15] VITALS: BP 128/95
== END 2022-03-02 22:30 | disposition short-term general hospital (02) | DRG 441 ==
LOC: ER 22:05 → ERHOLD 02-25 01:38 → 2ND 02-25 16:16 → OBSVTOIN 02-26 18:15 → 3RD-ICU 03-02 01:42
PROVIDERS: ADMIT Hospitalist; ATTEND Hospitalist
PROC: 0W9G3ZX Drainage of Peritoneal Cavity, Percutaneous Approach, Diagnostic (ICD-10-PCS; principal; 2022-02-25)
PROC: 30233K1 Transfusion of Nonautologous Frozen Plasma into Peripheral Vein, Percutaneous Approach (ICD-10-PCS; 2022-02-25)
DX: K72.00 Acute and subacute hepatic failure without coma (principal); G92.8 Other toxic encephalopathy; J18.9 Pneumonia, unspecified organism; J96.01 Acute respiratory failure with hypoxia; B19.9 Unspecified viral hepatitis without hepatic coma; D61.818 Other pancytopenia; N39.0 Urinary tract infection, site not specified; K70.11 Alcoholic hepatitis with ascites; F10.20 Alcohol dependence, uncomplicated; E87.6 Hypokalemia; I10 Essential (primary) hypertension; K70.31 Alcoholic cirrhosis of liver with ascites; E11.65 Type 2 diabetes mellitus with hyperglycemia; Z20.822 Contact with and (suspected) exposure to COVID-19
CPT/HCPCS: 36415; 36430; 71045; 71275; 76705; 80048; 80053; 80074; 80320; 80329; 81001; 82042; 82140; 82607; 82746; 82805; 82945; 82947; 83540; 83605; 83615; 83690; 83735; 83880; 84132; 84157; 84439; 84443; 84484; 85025; 85044; 85379; 85610; 85730; 86900; 86901; 87040; 87070; 87077; 87086; 87088; 87186; 87389; 87811; 89050; 93005; 94002; 94660; 96360; 96361; 99285; J0330; J0456; J1940; J2185; J2250; J2405; J2543; J2704; J2930; J3010; J3370; J3480; J7030; J7040; J7050; P9047; P9059; Q9967; U0003

== ENCOUNTER 2022-03-30 11:23 | Observation (INO) | payer OTHER ==
--- OUTSIDE RECORDS SUMMARY | 2022-03-30 11:39 | XMS REPORT | Continuity of Care Document ---
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 magnesium 2021- Yes [id number] 400mg Take 400 [facility] oxide 420 8- 10-01 mg by ity of mg Tab 00:00: 04:59 mouth 2 [place] 00 :00 (two) Medical times Branch daily for 30 days. spironolact 2021- Yes [id number] 50mg Take 1 [facility] one 50 mg 8- 10- tablet by ity of tablet 00:00: 04:59 mouth in [place] 00 :00 the Medical morning Branch and 1 tablet in the evening. Do all this for 30 days. lactulose 2021- Yes [id number] 15mL Take 15 mL [facility] 10 gram/15 03-16 by mouth ity of mL solution 00:00: 04:59 in the [place] 00 :00 morning Medical and 15 mL Branch in the evening. Do all this for 30 days. magnesium 2021- Yes [id number] 400mg Take 400 [facility] oxide 420 8- 10-01 mg by ity of mg Tab 00:00: 04:59 mouth 2 [place] 00 :00 (two) Medical times Branch daily for 30 days. spironolact 2021- Yes [id number] 50mg Take 1 [facility] one 50 mg -16 05- tablet by ity of tablet 00:00: 04:59 mouth in [place] 00 :00 the Medical morning Branch and 1 tablet in the evening. Do all this for 30 days. lactulose 2021- Yes [id number] 15mL Take 15 mL [facility] 10 gram/15 03-16 by mouth ity of mL solution 00:00: 04:59 in the [place] 00 :00 morning Medical and 15 mL Branch in the evening. Do all this for 30 days. lactulose 2021- No [id number] 15mL Take 15 mL [facility] 10 gram/15 03-16 by mouth ity of mL solution 00:00: 00:00 in the [place] 00 :00 morning Medical and 15 mL Branch in the evening. Do all this for 30 days. magnesium 2021- No [id number] 400mg Take 400 [facility] oxide 420 03-16 mg by ity of mg Tab 00:00: 00:00 mouth 2 [place] 00 :00 (two) Medical times Branch daily for 30 days. spironolact 2021- No [id number] 50mg Take 1 [facility] one 50 mg 03-16 tablet by ity of tablet 00:00: 00:00 mouth in [place] 00 :00 the Medical morning Branch and 1 tablet in the evening. Do all this for 30 days. amoxicillin 2021- Yes [id number] 1{tbl} Take 1 [facility] -clavulanat 03-16 tablet by it y of e [id number] 00:00: 04:59 mouth in [place] mg per 00 :00 the Medical tablet morning Branch and 1 tablet in the evening. Do all this for 3 days. amoxicillin 2021- Yes [id number] 1{tbl} Take 1 [facility] -clavulanat 03-16 tablet by it y of e [id number] 00:00: 04:59 mouth in [place] mg per 00 :00 the Medical tablet morning Branch and 1 tablet in the evening. Do all this for 3 days. KCL Yes 40meq 40 mEq, Univers (KLOR-CON 03-15 Oral, ity of M20) tablet 14:00: DAILY, [place] 40 mEq 00 First dose Medical on [facility] 03/15/22 at 0900, Until Discontinu ed, Routine magnesium 2021- Yes 400mg 400 mg, Uni vers oxide 03-15 Oral, BID, ity of (MAG-OX 13:00: 12:59 8 doses, [place] 400) tablet 00 :00 First dose Me dical 400 mg on [facility] 03/15/22 at 0800, Last dose on Mon03/18/22 at 2000, Routine potassium 2021- No 10meq 10 mEq, IV Univers chloride in 03-15 Piggyback, i ty of water 10 00:00: 02:43 Q1H, 3 [place] mEq/100 mL 00 :47 doses, Medical RTU 10 mEq First dose Bra nch (after last modificati on) on Mon03/14/22 at 1900, Last dose on Mon03/14/22 at 2100, Administer over 60 Minutes, 100 mL magnesium 2021-0 2021- No 2g 2 g, IV Univ ers sulfate in 03-14 Piggyback, it y of water 2 23:00: 03:51 Administer [place] gram/50 mL 00 :27 over 60 Medica l (4 %) Minutes, Branch infusion 2 ONCE, 1 g dose, On [facility] 03/14/22 at 1800, Routine KCL 2021-0 2021- No 20meq 20 mEq, Univers (KLOR-CON 03-14 Oral, ity of M20) tablet 21:00: 21:25 ONCE, 1 [place] 20 mEq 00 :00 dose, On Medical [facility] 03/14/22 at 1600, Routine foLIC acid Yes 1mg 1 mg, Univer s (FOLATE) 03-14 Oral, ity of tablet 1 mg 14:00: DAILY, [place] 00 First dose Medical on [facility] 03/14/22 at 0900, Until Discontinu ed, Routine thiamine Yes 100mg 100 mg, Unive rs (VITAMIN 03-14 Oral, ity of B1) tablet 14:00: DAILY, [place] 100 mg 00 First dose Medical on [facility] 03/14/22 at 0900, Until Discontinu ed, Routine furosemide Yes 40mg 40 mg, Unive rs (LASIX) 03-14 Oral, ity of tablet 40 14:00: DAILY, [place] mg 00 First dose Medical on [facility] 03/14/22 at 0900, Until Discontinu ed, Routine rifAXIMin Yes 550mg 550 mg, Univ ers (XIFAXAN) 03-14 Oral, BID, ity of tablet 550 01:00: First dose [place] mg 00 on [facility] 03/13/22 at Branch 2000, Until Discontinu ed, Routine
Reason for Anti-Infec tive: Empiric Therapy for Suspected Infection< br>Empiric Therapy Site: Abdominal< br>Duratio n of therapy: 5 days lactulose 0 Yes 15mL 15 mL, Univer s (CEPHULAC) 03-14 Oral, TID, ity of solution 15 01:00: First dose [place] mL 00 (after Medical last Branch modificati on) on [place] 03/13/22 at 2000, Until Discontinu ed, Routine ceFEPIme 0 2021- Yes 1000mg 1,000 mg, U nivers (MAXIPIME) 03-14 09-05 IV ity of 1,000 mg in [facility]:00: [facility] [place] NaCl 0.9% 00 :00 Q8H ABX, Medica l (NS) 50 mL 21 doses, Bran ch MINI-BAG First dose on [place] 03/13/22 at 2000, Last dose on [place] 03/20/22 at 1200, Administer over 4 Hours, 50 mL
Reas on for Anti-Infec tive: Empiric Therapy for Suspected Infection< br>Empiric Therapy Site: Respirator y
Durat ion of therapy: 5 days oxazepam Yes 15mg 15 mg, Univers (SERAX) 03-13 Oral, ity of capsule 15 22:32: Q4HPRN, [place] mg 41 Starting Medical on [facility] 03/13/22 at 1732, Until Discontinu ed, Routine, Anxiety, Only while awake for DBP equal to or greater than 100, HR equal to or greater than 100. Sliding Yes Subcutaneo Univ ers Scale 03-13 us, TID ity of Insulin - 17:00: MEALS+HS, [place] Lispro 00 First dose Medical (HumaLOG) + on [facility] 03/13/22 at Testing 1200, Until Discontinu ed, Routine ceFEPIme 2021- No 1000mg 1,000 mg, U nivers (MAXIPIME) 03-13 0828 IV ity of 1,000 mg in 16:00: 18:03 [facility], [place] NaCl 0.9% 00 :00 ONCE, 1 Medical (NS) 50 mL dose, On Branc h MINI-BAG [place] 03/13/22 at 1100, Administer over 30 Minutes, 50 mL
Reas on for Anti-Infec tive: Empiric Therapy for Suspected Infection< br>Empiric Therapy Site: Respirator y
Durat ion of therapy: 72 hours spironolact Yes 50mg 50 mg, Univ ers one 03-13 Oral, BID, ity of (ALDACTONE) 15:15: First dose [place] tablet 50 00 on [place] Medical mg 03/13/22 at Branch 1015, Until Discontinu ed, Routine fluconazole 0 2021- Yes 200mg 200 mg, U nivers (DIFLUCAN) 03-13 0902 Oral, ity of tablet 200 15:15: 13:59 DAILY, 5 [place] mg 00 :00 doses, Medical First dose Branch on [place] 03/13/22 at 1015, Last dose on [place] 03/17/22 at 0900, AUSTEN
Re ason for Anti-Infec tive: Documented Infection< br>Documen afshin Infection Site: Respirator y
Durat ion of Therapy: 7 days glucagon 2021- Yes 1mg 1 mg, Univers (GLUCAGEN 03-13 Intramuscu ity of DIAGNOSTIC 15:06: lar, PRN, [place] KIT) 44 Starting Medical injection 1 on [facility] 03/13/22 at 1006, Until Discontinu ed, AUSTEN, Blood Glucose < or = 70 mg/dL and patient is unable to swallow or has mental changes. dextrose 50 Yes 25mL 25 mL, Univ ers % in water 03-13 Slow IV ity of (D50W) 15:06: Push, PRN, [place] injection 44 Starting Medica l 25 mL on [facility] 03/13/22 at 1006, Until Discontinu ed, AUSTEN, Blood Glucose < or = 70 mg/dL and patient is unable to swallow or has mental status changes. KCL 2021-0 2021- No 40meq 40 mEq, Univers (KLOR-CON 03-13 Oral, ity of M20) tablet 15:00: 17:27 ONCE, 1 [place] 40 mEq 00 :00 dose, On Medical [facility] 03/13/22 at 1000, Routine docusate 0 Yes 100mg 100 mg, Unive rs (COLACE) 03-13 Oral, ity of capsule 100 14:00: DAILY, [place] mg 00 First dose Medical on [facility] 03/13/22 at 0900, Until Discontinu ed, Routine enoxaparin Yes 40mg 40 mg, Unive rs (LOVENOX) 03-13 Subcutaneo ity of injection 14:00: us, DAILY, [place] 40 mg 00 First dose Medical on [facility] 03/13/22 at 0900, Until Discontinu ed, Routine SERTraline Yes 50mg 50 mg, Unive rs (ZOLOFT) 03-13 Oral, ity of tablet 50 14:00: DAILY, [place] mg 00 First dose Medical on [facility] 03/13/22 at 0900, Until Discontinu ed, Routine lactulose No 15mL 15 mL, Unive rs (CEPHULAC) 03-13 Oral, ity of solution 15 14:00: 22:33 DAILY, [place] mL 00 :27 First dose Medical on [facility] 03/13/22 at 0900, Until Discontinu ed, Routine foLIC acid No 1mg 1 mg, Unive rs (FOLATE) 03-13 Oral, ity of tablet 1 mg 14:00: 22:42 DAILY, [place] 00 :06 First dose Medical on [facility] 03/13/22 at 0900, Until Discontinu ed, Routine furosemide No 20mg 20 mg, Univ ers (LASIX) 03-13 Slow IV ity of injection 13:00: 15:05 Push, [place] 20 mg 00 :33 Q12H, Medical First dose Branch on [place] 03/13/22 at 0800, Until Discontinu ed, Routine nicotine Yes 1{patch 1 Patch, Un frida (NICODERM) 03-13 } Topical, ity o f 21 mg/24 hr 12:30: Administer [place] patch 1 00 over 24 Medical Patch Hours, Branch Q24H, First dose on [place] 03/13/22 at 0730, Until Discontinu ed, Routine piperacilli 2021- No 3.375g 3.375 g, Univers n-tazobacta 03-13 IV ity of m (ZOSYN) 12:00: 15:09 Piggyback, [place] 3.375 g in 00 :15 Q8H ABX, 5 Med ical NaCl 0.9% doses, Branch (NS) 50 mL First dose MINI-BAG on [place] 03/13/22 at 0700, Last dose on [facility] 03/14/22 at 1500, Administer over 30 Minutes, 50 mL
Reas on for Anti-Infec tive: Empiric Therapy for Suspected Infection< br>Empiric Therapy Site: Abdominal< br>Duratio n of therapy: 5 days ondansetron Yes 4mg 4 mg, Slow Univers (ZOFRAN 03-13 IV Push, ity of (PF)) 07:18: Q6HPRN, [place] injection 4 46 Starting Medi george mg on [facility] 03/13/22 at 0218, Until Discontinu ed, Routine, Nausea and Vomiting (N/V) acetaminoph Yes 650mg 650 mg, Un frida en 03-13 Oral, ity of (TYLENOL) 07:18: Q6HPRN, [place] tablet 650 08 Starting Medic al mg on [facility] 03/13/22 at 0218, Until Discontinu ed, Routine, Pain (scale 1-3) morpHINE (2 Yes 2mg 2 mg, Slow Univers mg/mL) 03-13 IV Push, ity of injection 2 06:59: Q4HPRN, [place] mg 14 Starting Medical on [facility] 03/13/22 at 0159, Until Discontinu ed, Routine, Pain (scale 7-10) oxyCODONE 2021- No 5mg 5 mg, Univer s immediate 03-13 Oral, ity of release 06:58: 12:25 Q4HPRN, [place] tablet 5 mg 36 :23 Starting Medi george on [facility] 03/13/22 at 0158, Until [place] 03/13/22 at 0725, Routine, Pain (scale 4-6)
Fa culty member approving Restricted medication : OFELIA SALDAÑA KCL 2021- No 40meq 40 mEq, Univers (KLOR-CON 03-13 Oral, ity of M20) tablet 05:15: 05:14 ONCE, 1 [place] 40 mEq 00 :00 dose, On Medical [facility] 03/13/22 at 0015, AUSTEN Vancomycin 2021- No 750mg 750 mg, IV Univers 750 mg in 03-13 Piggyback, ity of NaCl 0.9% 04:30: 06:30 ONCE, 1 [place] (NS) 250 mL 00 :00 dose, On Medi george VIAL-MATE [facility] 03/12/22 at 2330, Administer over 60 Minutes, 250 mL
R akil for Anti-Infec tive: Empiric Therapy for Suspected Infection< br>Empiric Therapy Site: Respirator y
Durat ion of therapy: 72 hours piperacilli 2021-2021- No 3.375g 3.375 g, Univers n-tazobacta 03-13 IV ity of m (ZOSYN) 03:45: 04:37 Piggyback, [place] 3.375 g in 00 :00 ONCE, 1 Medica l NaCl 0.9% dose, On Branch (NS) 50 mL Sat MINI-BAG 03/12/22 at 2245, Administer over 30 Minutes, 50 mL
R akil for Anti-Infec tive: Empiric Therapy for Suspected Infection< br>Empiric Therapy Site: Respirator y
Durat ion of therapy: 72 hours lactulose 2021- No 30mL 30 mL, Unive rs (CEPHULAC) 03-13 Oral, ity of solution 30 03:30: 03:29 ONCE, 1 [place] mL 00 :00 dose, On Medical Sat Branch 03/12/22 at 2230, AUSTEN thiamine 2021-0 2021- Yes 100mg QD Take [facility] tablet 00:[facility]: 23:59 (100 mg Medical 00 :00 total) by Center mouth daily for 90 days. fluconazole 2021-0 2021- No 200mg QD Take [address] (DIFLUCAN) 03-11-02 tablet [facility] 200 MG 00:00: 23:59 (200 mg Medical tablet 00 :00 total) by Center mouth daily for 7 days. ergocalcife 2021-0 Yes [id number] Q7D Take [address] rol 8- capsule [facility] (ERGOCALCIF 00:00: (50,000 Med ical LUIS) 1,250 00 Units Center mcg (50,000 total) by unit) mouth once capsule a week. folic 2021-0 2021- Yes 1{tbl} QD Take [address] [facility] acid-multiv 03-10 tablet by [place] [facility] itamins 00:00: 23:59 mouth Medical (NEPHRO-VIT 00 :[address]) 0.8 mg 90 days. Tab tablet pantoprazol 2021- Yes 40mg QD Take [address] [facility] e -10 05-24 tablet (40 [facility] (PROTONIX) 00:00: 23:59 mg total) M edical 40 MG 00 :00 by mouth Center tablet daily for 60 days. rifAXIMin 0 2021- Yes 550mg Q.5D Take [address] [facility] [address] 550 mg Tab -10 05-24 tablet [facility] 00:00: 23:59 (550 mg Medical 00 :00 total) by Center mouth 2 (two) times daily for 60 days. lactulose 0 2021- Yes 20g Q.5D Take [address] [facility] (CHRONULAC) 03-10- mLs (20 g [place] kes 20 gram/30 00:00: 23:59 total) by M edical mL solution 00 :00 mouth 2 Cente r (two) times daily for 30 days. potassium 2021- Yes 10meq QD Take [address] chloride SA 03-10 tablet (10 [facility] (K-DUR,KLOR 00:00: 23:59 mEq total) Medical -CON-M) 10 00 :00 by mouth Cente r MEQ tablet daily for 30 days. omeprazole 0 Yes 40mg Take 40 mg U nivers 40 mg 7-26 by mouth ity of capsule 15:44: in the [place] 12 morning. Medical Branch midodrine 5 0 Yes 5mg Take 5 mg U nivers mg tablet 7-26 by mouth ity of 15:44: in the [place] 12 morning Medical and 5 mg Branch at noon and 5 mg in the evening. lactulose 0 Yes 15mL Take 15 mL Un frida 10 gram/15 7-26 by mouth ity o f mL solution 15:44: in the [facility] 12 morning. Medical Branch ARIPiprazol 2021-0 Yes 10mg Take 10 mg Univers e (ABILIFY) 7-26 by mouth ity of 10 mg 15:44: in the [facility] 12 morning. Medical Branch traZODone 2021-0 Yes 50mg Take 50 mg Un frida 50 mg 7-26 by mouth ity of tablet 15:44: at [place] [address] bedtime. Medical Branch sulfamethox 2021-0 Yes 1{tbl} Take 1 Un frida azole-trime 7-26 tablet by ity of thoprim 15:44: mouth in [place] 800-160 mg 12 the Medical per tablet morning Branch and 1 tablet in the evening. buprenorphi 2-[address] 8 mg Univers ne-naloxone 7-26 under the ity of 8-2 mg 15:44: tongue. [place] sublingual Medical film Branch omeprazole 2021-0 Yes 40mg Take 40 mg U nivers 40 mg 7-26 by mouth ity of capsule 15:44: in the [place] [address] morning. Medical Branch midodrine 5 2021-0 Yes 5mg Take 5 mg U nivers mg tablet 7-26 by mouth ity of 15:44: in the [place] [address] morning Medical and 5 mg Branch at noon and 5 mg in the evening. lactulose 2021-0 Yes 15mL Take 15 mL Un frida 10 gram/15 7-26 by mouth ity o f mL solution 15:44: in the [facility] 12 morning. Medical Branch ARIPiprazol 2021-0 Yes 10mg Take 10 mg Univers e (ABILIFY) 7-26 by mouth ity of 10 mg 15:44: in the [place] [id number] morning. Medical Branch traZODone 2021-0 Yes 50mg Take 50 mg Un frida 50 mg 7-26 by mouth ity of tablet 15:44: at [place] [address] bedtime. Medical Branch sulfamethox 2021-0 Yes 1{tbl} Take 1 Un frida azole-trime 7-26 tablet by ity of thoprim 15:44: mouth in [place] 800-160 mg 12 the Medical per tablet morning Branch and 1 tablet in the evening. buprenorphi 2021-[address] 8 mg Univers ne-naloxone 7-26 under the ity of 8-2 mg 15:44: tongue. [place] sublingual Medical film Branch omeprazole 2021-0 Yes 40mg Take 40 mg U nivers 40 mg 7-26 by mouth ity of capsule 15:44: in the [place] [address] morning. Medical Branch midodrine 5 2021-0 Yes 5mg Take 5 mg U nivers mg tablet 7-26 by mouth ity of 15:44: in the [place] [address] morning Medical and 5 mg Branch at noon and 5 mg in the evening. lactulose 2021-0 Yes 15mL Take 15 mL Un frida 10 gram/15 7-26 by mouth ity o f mL solution 15:44: in the [facility] 12 morning. Medical Branch ARIPiprazol 2021-0 Yes 10mg Take 10 mg Univers e (ABILIFY) 7-26 by mouth ity of 10 mg 15:44: in the [place] tablet 12 morning. Medical Branch traZODone 2021-0 Yes 50mg Take 50 mg Un frida 50 mg 7-26 by mouth ity of tablet 15:44: at [place] [address] bedtime. Medical Branch sulfamethox 2021-0 Yes 1{tbl} Take 1 Un frida azole-trime 7-26 tablet by ity of thoprim 15:44: mouth in [place] 800-160 mg 12 the Medical per tablet morning Branch and 1 tablet in the evening. buprenorphi 2021-[address] 8 mg Univers ne-naloxone 7-26 under the ity of 8-2 mg 15:44: tongue. [place] sublingual Medical film Branch omeprazole 2021-0 Yes 40mg Take 40 mg U nivers 40 mg 7-26 by mouth ity of capsule 15:44: in the [place] [address] morning. Medical Branch midodrine 5 2021-0 Yes 5mg Take 5 mg U nivers mg tablet 7-26 by mouth ity of 15:44: in the [place] [address] morning Medical and 5 mg Branch at noon and 5 mg in the evening. lactulose 2021-0 Yes 15mL Take 15 mL Un frida 10 gram/15 7-26 by mouth ity o f mL solution 15:44: in the [facility] 12 morning. Medical Branch ARIPiprazol 2021-0 Yes 10mg Take 10 mg Univers e (ABILIFY) 7-26 by mouth ity of 10 mg 15:44: in the [facility] 12 morning. Medical Branch traZODone 2021-0 Yes 50mg Take 50 mg Un frida 50 mg 7-26 by mouth ity of tablet 15:44: at [place] [address] bedtime. Medical Branch sulfamethox 2021-0 Yes 1{tbl} Take 1 Un frida azole-trime 7-26 tablet by ity of thoprim 15:44: mouth in [place] 800-160 mg 12 the Medical per tablet morning Branch and 1 tablet in the evening. buprenorphi [address] 8 mg Univers ne-naloxone 02-08 under the ity of 8-2 mg 15:44: tongue. [place] sublingual 12 Medical film Branch SERTraline 0 Yes [id number] 50mg Take 1 U nivers (ZOLOFT) 50 7-26 tablet by ity of mg tablet 00:00: mouth in [place] 00 the Medical morning. Branch SERTraline 0 Yes [id number] 50mg Take 1 U nivers (ZOLOFT) 50 7-26 tablet by ity of mg tablet 00:00: mouth in [place] 00 the Medical morning. Branch SERTraline 0 Yes [id number] 50mg Take 1 U nivers (ZOLOFT) 50 7-26 tablet by ity of mg tablet 00:00: mouth in [place] 00 the Medical morning. Branch SERTraline 0 Yes [id number] 50mg Take 1 U nivers (ZOLOFT) 50 7-26 tablet by ity of mg tablet 00:00: mouth in [place] 00 the Medical morning. Branch SERTraline 0 Yes [id number] 50mg Take 1 U nivers (ZOLOFT) 50 7-26 tablet by ity of mg tablet 00:00: mouth in [place] 00 the Medical morning. Branch SERTraline 0 Yes [id number] 50mg Take 1 U nivers (ZOLOFT) 50 7-26 tablet by ity of mg tablet 00:00: mouth in [place] 00 the Medical morning. Branch SERTraline 0 Yes [id number] 50mg Take 1 U nivers (ZOLOFT) 50 7-26 tablet by ity of mg tablet 00:00: mouth [place] 00 the Medical morning. Branch SERTraline 0 2021- No [id number] 50mg Take 1 Univers (ZOLOFT) 50 7-26 03-25 tablet by it y of mg tablet 00:00: 00:00 mouth in [place] 00 :00 the Medical morning. Branch cefdinir 2021-0 2021- No [id number] 300mg Take 1 U nivers 300 mg 7-08 07-26 capsule by ity of capsule 00:00: 00:00 mouth 2 [place] 00 :00 (two) Medical times Branch daily. ondansetron 2021- No [id number] 4mg Take 1 Univers 4 mg 01-21- tablet by ity of disintegrat 00:00: 00:00 mouth [place] ing tablet 00 :00 every 4 Medica l (four) Branch hours as needed for Nausea and Vomiting (N/V). chlordiazeP 2021- No Alcohol Take 2 [place] OXIDE 6-25 - dependence capsules [facility] (LIBRIUM) 00:00: 23:59 with by mouth 2 25 mg 00 :00 unspecified (two) capsule alcohol-ind times a uced day for 1 disorder day, THEN 1 capsule 4 times daily for 1 day, THEN 1 capsule 2 (two) times a day for 1 day, THEN 1 capsule at bedtime nightly for 1 day. foLIC acid Yes [id number] 1mg Take 1 Univers 1 mg tablet 4-21 tablet by ity of 00:00: mouth [place] 00 daily. Medical Branch foLIC acid 0 Yes [id number] 1mg Take 1 Univers 1 mg tablet 4-21 tablet by ity of 00:00: mouth [place] 00 daily. Medical Branch foLIC acid 2021-0 Yes [id number] 1mg Take 1 Univers 1 mg tablet 4-21 tablet by ity of 00:00: mouth [place] 00 daily. Medical Branch foLIC acid 0 Yes [id number] 1mg Take 1 Univers 1 mg tablet 4-21 tablet by ity of 00:00: mouth [place] 00 daily. Medical Branch foLIC acid 0 Yes [id number] 1mg Take 1 [facility] 1 mg tablet 4-21 tablet by ity of 00:00: mouth [place] 00 daily. Medical Branch foLIC acid 2021-0 Yes [id number] 1mg Take 1 Univers 1 mg tablet 4-21 tablet by ity of 00:00: mouth [place] 00 daily. Medical Branch foLIC acid 2021-0 Yes [id number] 1mg Take 1 [facility] 1 mg tablet 4-21 tablet by ity of 00:00: mouth [place] 00 daily. Medical Branch foLIC acid 2021- No [id number] 1mg Take 1 [facility] 1 mg tablet 4-21 - tablet by it y of 00:00: 00:00 mouth [place] 00 :00 daily. Medical Branch thiamine 2021- No [id number] 100mg Take 1 [facility] 100 mg 11-04 tablet by ity of tablet 00:00: 00:00 mouth [place] 00 :00 daily. Medical Branch varenicline 2021- No [id number] Take one Univers (CHANTIX 11-03 0.5mg tab ity o f STARTING 00:00: 00:00 by mouth [place] MONTH BOX) 00 :00 once daily Med ical 0.5 mg for 3 Branch (11)- 1 mg days, then (42) tablet one 0.5mg tab twice daily for 4 days, then one 1mg tab twice daily. varenicline 2021- No [id number] 1mg Take 1 [facility] (CHANTIX 11-03 tablet by ity o f CONTINUING 00:00: 00:00 mouth 2 [place] MONTH BOX) 00 :00 (two) Medical 1 mg tablet times Branch daily. iopamidol 2020- No [id number] 100mL 100 mL, Univers (ISOVUE 5-07 05-07 [...] (65 mg 00 (three) Medical iron) times [place] tablet daily with meals. 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, Duration: 24 hr, Stop date: 09/16/20 16:00:00 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, 0 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, Duration: 24 hr, Stop date: 09/16/20 16:00:00 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, 0 Chlordiazep 2020-0 No 50 mg, 2 Me moria oxide 3-03 cap, l 03:00: Route: PO, [place] 00 Drug form: CAP, Q12H, Dosing Weight 50, kg, Start date: 09/15/20 21:00:00 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, Duration: 24 hr, Stop date: 09/16/20 9:00:00 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, 0 Chlordiazep 2020-0 No 50 mg, 2 Me moria oxide 3-03 cap, l 03:00: Route: PO, Drug form: CAP, Q12H, Dosing Weight 50, kg, Start date: 09/15/20 21:00:00 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, Duration: 24 hr, Stop date: 09/16/20 9:00:00 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, 0 remove No Notes: Memoria patch 3-02 Remove old l 15:00: patch before applicatio n of new patch. WASTE: F/P - P Waste Black; E - P Waste Black remove No Notes: [place] patch 3-02 Remove old l 15:00: patch before applicatio n of new patch. WASTE: F/P - P Waste Black; E - P Waste Black Chlordiazep 2020-0 No 50 mg, 2 Me moria oxide 3-01 cap, l 22:00: Route: PO, Drug form: CAP, Q8H, Dosing Weight 50, kg, Start date: 09/14/20 16:00:00 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, Duration: 24 hr, Stop date: 09/15/20 8:00:00 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, 0 Chlordiazep 2020-0 No 50 mg, 2 Me moria oxide 3-01 cap, l 22:00: Route: PO, Drug form: CAP, Q8H, Dosing Weight 50, kg, Start date: 09/14/20 16:00:00 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, Duration: 24 hr, Stop date: 09/15/20 8:00:00 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, 0 Folic Acid 0 No Notes: Memor ia 3-01 (Same as: l 15:00: Folvite) multivitami 2021-0 No 1 tab, Theo makayla n 3-01 Route: PO, l 15:00: Dosing [place] 00 Weight 50, kg, Daily, Start date: 09/14/20 9:00:00 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, Duration: 5 day, Stop date: 09/18/20 9:00:00 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 Thiamine No Notes: Memoria 3-01 (Same As: l 15:00: Vitamin [place] 00 B1) multivitami No Notes: Theo makayla n with 3- (Same l minerals 15:00: as:Thera-M Her berkowitz 00 , Theragran- M) WASTE: F/P - Black; E - Municipal Trash Bin Give with food. Folic Acid No Notes: Memor ia 3- (Same as: l 15:00: Folvite) [place] 00 multivitami No 1 tab, Theo makayla n 3- Route: PO, l 15:00: Dosing [place] 00 Weight 50, kg, Daily, Start date: 09/14/20 9:00:00 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, Duration: 5 day, Stop date: 09/18/20 9:00:00 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 Thiamine No Notes: Memoria 3- (Same As: [...] Memoria 3-01 (Same as: l 14:27: Habitrol) [place] 00 "Remove old patch before applicatio n [...] Weight 50, kg, Start date: 09/13/20 18:00:00 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, Duration: 24 hr, Stop date: 09/14/20 12:00:00 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, 0 Chlordiazep No 50 mg, 2 Me moria oxide 3- cap, l 00:00: Route: PO, [place] 00 Drug form: CAP, Q6H, Dosing Weight 50, kg, Start date: 09/13/20 18:00:00 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, Duration: 24 hr, Stop date: 09/14/20 12:00:00 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, 0 cefepime No Notes: Memoria 09-13 (Same As: l 22:00: Maxipime) MEDICATION WASTE Product Size: 1000 mg Product Wasted: ___ mg cefepime No Notes: Memoria 09-13 (Same As: l 22:00: Maxipime) MEDICATION WASTE Product Size: 1000 mg Product Wasted: ___ mg Lorazepam No Notes: Memori a - (Same as: l 21:44: Ativan) Lorazepam No Notes: Memori a 2-28 (Same as: l 21:44: Ativan) Lactated No 1,000 mL, Theo makayla Ringers IV - Rate: 125 l 1,000 mL 21:32: ml/hr, [place] 00 Infuse over: 8 hr, Route: IV, Dosing Weight 50 kg, Total Volume: 1,000, Start date: 09/13/20 15:32:00 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, 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, Stop date: 10/13/20 15:31:00 CDT, 1.53, m2, 0 Ondansetron No Notes: Theo makayla 2-28 (Same as: l 21:32: Zofran) MEDICATION WASTE Product Size: 4 mg Product Wasted: ___ mg Hydromorpho No Notes: Theo makayla ne 2-28 Same as: l 21:32: Dilaudid Lactated No 1,000 mL, Theo makayla Ringers IV 09-13 Rate: 125 l 1,000 mL 21:32: ml/hr, [place] 00 Infuse over: 8 hr, Route: IV, Dosing Weight 50 kg, Total Volume: 1,000, Start date: 09/13/20 15:32:00 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, 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, Stop date: 10/13/20 15:31:00 CDT, 1.53, m2, 0 Ondansetron No Notes: Theo makayla 2-28 (Same as: l 21:32: Zofran) MEDICATION WASTE Product Size: 4 mg Product Wasted: ___ mg Hydromorpho No Notes: Theo makayla ne 2-28 Same as: l 21:32: Dilaudid Ceftriaxone No Notes: Theo makayla 2-28 (Same [...] 0.9% 2-28 (Same as: l 18:46: BD [place] 00 Posiflush) Sodium No 1,000 mL, Memori a Chloride 2-28 1000 l 0.9% 18:46: ml/hr, [place] (Bolus) IV 00 Infuse Over: 1 hr, Route: IV, 1,000, Drug form: INJ, ONCE, Priority: STAT, Dosing Weight 50 kg, Start date: 09/13/20 12:46:00 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, Stop date: 09/13/20 12:46:00 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, 0 Morphine No Notes: Memoria 2-28 (Same l 18:46: as:MORPhin [place] 00 e Sulfate) Ondansetron No Notes: Theo makayla 2-28 (Same as: l 18:46: Zofran) [place] 00 MEDICATION WASTE Product Size: 4 mg Product Wasted: ___ mg Saline No Notes: Memoria Flush 0.9% 2-28 (Same as: l 18:46: BD [place] 00 Posiflush) Sodium No 1,000 mL, Memori a Chloride 2-28 1000 l 0.9% 18:46: ml/hr, [place] (Bolus) IV 00 Infuse Over: 1 hr, Route: IV, 1,000, Drug form: INJ, ONCE, Priority: STAT, Dosing Weight 50 kg, Start date: 09/13/20 12:46:00 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 Motrin No Notes: Memoria 7-13 (Same as: l 22:22: Motrin) [place] 00 "Do Not Crush" Take with food. albuterol Yes 2{puff} Inhale 2 U nivers (VENTOLIN) 4-13 Puffs ity of 90 00:00: every 4 [place] mcg/actuati 00 (four) Medica l on inhaler hours as Branc h needed for Wheezing or Shortness of Breath. albuterol 2{puff} Inhale 2 Univers (VENTOLIN) 4-13 07-26 [...] Immunizations Ordered Filled Immunization Date Status Comments [facility] e Immunization Name Name Hepatitis B Adult 2022-03-[address] [facility] 00:00:00 [facility] SARS-COV-2 COVID-19 2021-06-04 Completed Unive rsity of PFIZER VACCINE 00:00:00 [facility] SARS-COV-2 COVID-19 2021-06-04 Completed Unive rsity of PFIZER VACCINE 00:00:00 [facility] SARS-COV-2 COVID-19 2021-06-04 Completed Unive rsity of PFIZER VACCINE 00:00:00 [facility] SARS-COV-2 COVID-19 2021-06-04 Completed Unive rsity of PFIZER VACCINE 00:00:00 [facility] SARS-COV-2 COVID-19 2021-06-04 Completed Unive rsity of PFIZER VACCINE 00:00:00 [facility] SARS-COV-2 COVID-19 2021-06-04 Completed Unive rsity of PFIZER VACCINE 00:00:00 [facility] SARS-COV-2 COVID-19 2021-06-04 Completed Unive rsity of PFIZER VACCINE 00:00:00 [facility] SARS-COV-2 COVID-19 2021-06-04 Completed Unive rsity of PFIZER VACCINE 00:00:00 [facility] SARS-COV-2 COVID-19 2021-06-04 Completed Unive rsity of PFIZER VACCINE 00:00:00 [facility] SARS-COV-2 COVID-19 2021-06-04 Completed Unive rsity of PFIZER VACCINE 00:00:00 [facility] SARS-COV-2 COVID-19 2021-04-30 Completed Unive rsity of PFIZER VACCINE 00:00:00 [facility] SARS-COV-2 COVID-19 2021-04-30 Completed Unive rsity of PFIZER VACCINE 00:00:00 [facility] SARS-COV-2 COVID-19 2021-04-30 Completed Unive rsity of PFIZER VACCINE 00:00:00 [facility] SARS-COV-2 COVID-19 2021-04-30 Completed Unive rsity of PFIZER VACCINE 00:00:00 [facility] SARS-COV-2 COVID-19 2021-04-30 Completed Unive rsity of PFIZER VACCINE 00:00:00 [facility] SARS-COV-2 COVID-19 2021-04-30 Completed Unive rsity of PFIZER VACCINE 00:00:00 [facility] SARS-COV-2 COVID-19 2021-04-30 Completed Unive rsity of PFIZER VACCINE 00:00:00 [facility] SARS-COV-2 COVID-19 2021-04-30 Completed Unive rsity of PFIZER VACCINE 00:00:00 [facility] SARS-COV-2 COVID-19 2021-04-30 Completed Unive rsity of PFIZER VACCINE 00:00:00 [facility] SARS-COV-2 COVID-19 2021-04-30 Completed Unive rsity of PFIZER VACCINE 00:00:00 [facility] Vital Signs Vital Name Observation Time Observation Value Comments Source Systolic blood 2022-03-28 103 mm[Hg] [facility] of pressure 18:32:00 [facility] Diastolic blood 2022-03-28 56 mm[Hg] University o f pressure 18:32:00 [facility] Heart rate 2022-03-28 113 /min University of 18:32:00 [facility] Respiratory rate 2022-03-28 16 /min University of 18:32:00 [facility] Oxygen saturation 2022-03-28 99 /min [facility] in Arterial blood 18:32:00 [facility] by Pulse oximetry [place] Body temperature 2022-03-28 36.61 Yas University of 16:40:00 [facility] Body height 2022-03-28 165.1 cm University of 16:40:00 [facility] Body weight 2022-03-28 50.803 kg University of 16:40:00 [facility] BMI 2022-03-28 18.64 kg/m2 University of 16:40:00 [facility] Systolic blood 2022-03-25 128 mm[Hg] University of pressure 15:32:00 [facility] Diastolic blood 2022-03-25 77 mm[Hg] University o f pressure 15:32:00 [facility] Heart rate 2022-03-25 105 /min University of 15:32:00 [facility] Body temperature 2022-03-25 37 Yas University of 15:32:00 [facility] Respiratory rate 2022-03-25 20 /min University of 15:32:00 [facility] Oxygen saturation 2022-03-25 95 /min University in Arterial blood 15:32:00 [facility] by Pulse oximetry Branch BMI 2022-03-22 19.00 kg/m2 [facility] 01:26:00 [facility] Body weight 2022-03-22 51.8 kg [facility] 01:26:00 [facility] Body height 2022-03-21 165.1 cm [facility] 10:12:00 [facility] Systolic blood 2022-03-16 121 mm[Hg] [place] of pressure 16:54:00 [facility] Diastolic blood 2022-03-16 69 mm[Hg] [place] o f pressure 16:54:00 [facility] Heart rate 2022-03-16 97 /min [facility] 16:54:00 [facility] Body temperature 2022-03-16 36.33 Yas [facility] 16:54:00 [facility] Respiratory rate 2022-03-16 18 /min [facility] 16:54:00 [facility] Oxygen saturation 2022-03-16 99 /min [facility] in Arterial blood 16:54:00 [facility] by Pulse oximetry Branch Body weight 2022-03-16 49.986 kg [facility] 08:58:00 [facility] BMI 2022-03-16 18.34 kg/m2 [facility] 08:58:00 [facility] Body height 2022-03-13 165.1 cm [facility] 07:30:00 [facility] HEIGHT 2022-03-11 165.1 cm 17:49:00 WEIGHT 2022-03-11 50.803 kg 17:49:00 HEIGHT 2022-03-11 165.1 cm 17:49:00 WEIGHT 2022-03-11 50.803 kg 17:49:00 HEIGHT 2022-03-11 165.1 cm 17:49:00 WEIGHT 2022-03-11 50.803 kg 17:49:00 WEIGHT 2022-03-11 50.803 kg 06:00:00 WEIGHT 2022-03-10 50.803 kg 06:00:00 WEIGHT 2022-03-09 50.939 kg 10:00:00 WEIGHT 2022-03-08 51.5 kg 03:12:00 WEIGHT 2022-03-07 51.9 kg 05:33:00 WEIGHT 2022-03-04 48 kg 06:00:00 HEIGHT 2022-03-03 165.1 cm 09:00:00 WEIGHT 2022-03-03 46 kg 06:00:00 WEIGHT 2022-03-11 50.803 kg 06:00:00 WEIGHT 2022-03-10 50.803 kg 06:00:00 WEIGHT 2022-03-09 50.939 kg 10:00:00 WEIGHT 2022-03-08 51.5 kg 03:12:00 WEIGHT 2022-03-07 51.9 kg 05:33:00 WEIGHT 2022-03-04 48 kg 06:00:00 HEIGHT 2022-03-03 165.1 cm 09:00:00 WEIGHT 2022-03-03 46 kg 06:00:00 WEIGHT 2022-03-11 50.803 kg 06:00:00 WEIGHT 2022-03-10 50.803 kg 06:00:00 WEIGHT 2022-03-09 50.939 kg 10:00:00 WEIGHT 2022-03-08 51.5 kg 03:12:00 WEIGHT 2022-03-07 51.9 kg 05:33:00 WEIGHT 2022-03-04 48 kg 06:00:00 HEIGHT 2022-03-03 165.1 cm 09:00:00 WEIGHT 2022-03-03 46 kg 06:00:00 Systolic blood 2022-02-08 114 mm[Hg] [facility] pressure 20:45:00 [facility] Diastolic blood 2022-02-08 71 mm[Hg] [facility] pressure 20:45:00 [facility] Heart rate 2022-02-08 115 /min [facility] of 20:45:00 [facility] Body temperature 2022-02-08 37.22 Yas [facility] of 20:45:00 [facility] Body height 2022-02-08 165.1 cm University of 20:45:00 [facility] Body weight 2022-02-08 44.861 kg University of 20:45:00 [facility] BMI 2022-02-08 16.46 kg/m2 University of 20:45:00 [facility] Oxygen saturation 2022-02-08 97 /min [facility] in Arterial blood 20:45:00 [facility] Pulse oximetry [place] Systolic blood 2020-11-20 129 mm[Hg] [facility] pressure 10:29:00 [facility] Diastolic blood 2020-11-20 79 mm[Hg] [facility] o f pressure 10:29:00 [facility] Heart rate 2020-11-20 63 /min University 10:29:00 [facility] Respiratory rate 2020-11-20 13 /min [facility] 10:29:00 [facility] Oxygen saturation 2020-11-20 99 /min [facility] in Arterial blood 10:29:00 [facility] by Pulse oximetry [place] Body temperature 2020-11-20 37 Yas [facility] 08:36:00 [facility] Body weight 2020-11-20 45.36 kg [facility] 08:36:00 [facility] BMI 2020-11-20 16.64 kg/m2 [facility] 08:36:00 [facility] Systolic blood 2022-03-12 130 mm[Hg] [facility] pressure 07:00:00 [facility] Diastolic blood 2022-03-12 89 mm[Hg] [facility] pressure 07:00:00 [facility] Heart rate 2022-03-12 91 /min [facility] 07:00:00 [facility] Body temperature 2022-03-[address] [facility] 07:[facility]:00 [facility] Oxygen saturation 2022-03-12 97 /min [facility] in Arterial blood 07:00:00 [facility] nter by Pulse oximetry Respiratory rate 2022-03-12 18 /min [facility] 06:30:00 [facility] Body height 2022-03-[address] [facility] 17:49:00 [facility] Body weight 2022-03-[address] [facility] 17:49:00 [facility] BMI 2022-03-11 18.64 kg/m2 [facility] 17:49:00 [facility] Systolic blood 2022-01-08 119 mm[Hg] [facility] pressure 07:05:00 Diastolic blood 2022-01-08 79 mm[Hg] [facility] pressure 07:05:00 Heart rate 2022-01-08 101 /min Dany Pérez RN [facility] 07:05:00 Aware. Body temperature 2022-01-08 36.94 Yas [facility] 07:05:00 Respiratory rate 2022-01-08 20 /min [facility] 07:05:00 Oxygen saturation 2022-01-08 95 /min Mati Mel[facility] in Arterial blood 07:05:00 by Pulse oximetry Body height 2022-01-07 165.1 cm [facility] 20:42:00 Body weight 2022-01-07 44.453 kg [facility] 20:42:00 BMI 2022-01-07 16.31 kg/m2 [facility] 20:42:00 Systolic (mm Hg) 2020-09-15 [facility] 00:09:00 Diastolic (mm Hg) 2020-09-15 [facility] 00:09:00 Respitory Rate 2020-09-15 [facility] 00:09:00 Heart Rate 2020-09-15 [facility] 00:09:00 Respitory Rate 2020-09-14 [facility] 17:56:00 Heart Rate 2020-09-14 [facility] 17:56:00 Systolic (mm Hg) 2020-09-14 [facility] 17:56:00 Diastolic (mm Hg) 2020-09-14 [facility] H ermann 17:56:00 Temperature Oral 2020-09-14 98.4 F [facility] rmann (F) 14:00:00 Heart Rate 2020-09-14 [facility] 14:00:00 Respitory Rate 2020-09-14 [facility] 14:00:00 Systolic (mm Hg) 2020-09-14 [facility] 14:00:00 Diastolic (mm Hg) 2020-09-14 [facility] H ermann 14:00:00 Temperature Oral 2020-09-14 98.3 F [facility] rmann (F) 09:40:00 Respitory Rate 2020-09-14 [facility] 09:40:00 Heart Rate 2020-09-14 [facility] 09:40:00 Systolic (mm Hg) 2020-09-14 [facility] 09:40:00 Diastolic (mm Hg) 2020-09-14 [facility] 09:40:00 Temperature Oral 2020-09-14 98.6 F [facility] rmann (F) 05:30:00 Heart Rate 2020-09-14 [facility] 05:30:00 Respitory Rate 2020-09-14 [facility] 05:30:00 Systolic (mm Hg) 2020-09-14 [facility] 05:30:00 Diastolic (mm Hg) 2020-09-14 [facility] 05:30:00 Height 2020-09-14 165.1 cm [facility] 02:59:00 Weight 2020-09-14 [facility] 02:59:00 BMI Calculated 2020-09-14 [facility] 02:59:00 Respitory Rate 2020-09-14 [facility] 01:40:00 Temperature Oral 2020-09-14 98.2 F [facility] (F) 01:40:00 Heart Rate 2020-09-14 [facility] 01:40:00 Systolic (mm Hg) 2020-09-14 [facility] 01:40:00 Diastolic (mm Hg) 2020-09-14 [facility] 01:40:00 Height 2020-09-13 167.64 cm [facility] 18:45:00 BMI Calculated 2020-09-13 [facility] 18:45:00 Weight 2020-09-13 [facility] 18:45:00 Temperature Oral 2020-01-27 98.8 F [facility] (F) 23:51:00 Heart Rate 2020-01-27 [facility] 23:51:00 Respitory Rate 2020-01-27 [facility] 23:51:00 Systolic (mm Hg) 2020-01-27 [facility] 23:51:00 Diastolic (mm Hg) 2020-01-27 [facility] 23:51:00 Height 2020-01-27 165.1 cm [facility] 22:21:00 BMI Calculated 2020-01-27 [facility] 22:21:00 Weight 2020-01-27 [facility] 22:21:00 Systolic (mm Hg) 2020-01-27 [facility] 22:21:00 Diastolic (mm Hg) 2020-01-27 [facility] 22:21:00 Heart Rate 2020-01-27 [facility] 22:21:00 Respitory Rate 2020-01-27 [facility] 22:21:00 Temperature Oral 2020-01-27 98.8 F [facility] (F) 22:21:00 Procedures Procedure Date / Time Performing Clinician Source Performed CONSENT/REFUSAL FOR 2022-03-28 Doctor Unassigned, [facility] DIAGNOSIS AND TREATMENT 16:37:48 [facility] MAGNESIUM 2022-03-25 Geoffrey [facility] xa 11:14:00 [facility] BASIC METABOLIC PANEL (NA, 2022-03-25 Geoffrey [facility] of [place] K, CL, CO2, GLUCOSE, BUN, 11:14:00 [facility] CREATININE, [place]) CBC WITH DIFF [facility]22-03-[facility] BASIC METABOLIC PANEL (NA, 2022-03-[address] [facility] rs[facility] of [place] K, CL, CO2, GLUCOSE, BUN, 14:11:00 [facility] CREATININE, [place]) MAGNESIUM 2022-03-24 [facility] 07:35:00 [facility] BASIC METABOLIC PANEL (NA, 2022-03-24 Geoffrey [facility] [place] K, CL, CO2, GLUCOSE, BUN, 07:35:00 [facility] CREATININE, CA) URINALYSIS 2022-03-24 [facility] 07:24:00 [facility] EXTRA TUBE URINE CULTURE 2022-03-[address] [facility] 07:24:00 [facility] [place] BASIC METABOLIC PANEL (NA, 2022-03-23 Geoffrey [facility] [place] K, CL, CO2, GLUCOSE, BUN, 20:11:00 [facility] CREATININE, CA) MAGNESIUM 2022-03-23 [facility] 10:47:00 [facility] HEPATIC FUNCTION PANEL [facility]22-03-[id number] (ALB,T.PRO,BILI 10:47:00 [facility] T,BU/BC,ALT,AST,ALK PHOS) BASIC METABOLIC PANEL (NA, 2022-03-23 Geoffrey [facility] [place] K, CL, CO2, GLUCOSE, BUN, 10:47:00 [facility] CREATININE, CA) CBC WITH DIFF 2022-03-23 [facility] 10:47:00 [facility] BASIC METABOLIC PANEL (NA, 2022-03-22 Geoffrey [facility] [place] K, CL, CO2, GLUCOSE, BUN, 21:28:[address] [facility] CREATININE, CA) BASIC METABOLIC PANEL (NA, 2022-03-22 [facility] K, CL, CO2, GLUCOSE, BUN, 14:46:00 [facility] CREATININE, CA) BASIC METABOLIC PANEL (NA, 2022-03-22 [facility] K, CL, CO2, GLUCOSE, BUN, 09:56:00 [facility] CREATININE, [place]) CBC WITH DIFF 2022-03-22 [facility] 09:56:00 [facility] PROTHROMBIN TIME / INR 2022-03-22 [facility] 09:56:00 [facility] ACTIVATED PARTIAL THRMPLAS 2022-03-22 [facility] HEATHER 09:56:00 [facility] HEPATIC FUNCTION PANEL 2022-03-22 [facility] ([id number]) (ALB,T.PRO,BILI 06:12:00 Medical Branch T,BU/BC,ALT,AST,ALK PHOS) BASIC METABOLIC PANEL (NA, 2022-03-22 [facility] K, CL, CO2, GLUCOSE, BUN, 06:12:00 [facility] CREATININE, [place]) HB ABO GROUPING 2022-03-21 [facility] 21:15:00 [facility] MISCELLANEOUS SEND OUT TEST 2022-03-21 Esme Edwards [facility] 21:11:00 [facility] VITAMIN K1, LEVEL 2022-03-21 [facility] 21:07:00 [facility] QUANTIFERON-TB ASSAY 2022-03-21 [facility] 21:07:00 [facility] SMOOTH MUSCLE AB,IGG 2022-03-21 [facility] W/REFLEX 21:06:00 [facility] [id number] 2022-03-21 [facility] [place] PHENOTYPE 21:06:00 [facility] VITAMIN E, SERUM OR PLASMA 2022-03-21 [facility] 21:06:00 [facility] VITAMIN A, SERUM OR PLASMA 2022-03-21 [facility] 21:06:00 [facility] CERULOPLASMIN 2022-03-21 [facility] [place] 21:06:00 [facility] TEST, SERUM 2022-03-21 [facility] 21:06:00 [facility] IMMUNOGLOBULIN G A M PANEL 2022-03-21 [facility] 21:06:00 [facility] FREE T4 2022-03-21 [facility] 21:06:00 [facility] ALPHA FETOPROTEIN 2022-03-21 [facility] 21:06:00 [facility] IRON PANEL 2022-03-21 [facility] 21:06:00 [facility] MEASLES IGG 2022-03-21 [facility] 21:06:00 [facility] RUBELLA SCREEN IGG 2022-03-21 [facility] 21:06:00 [facility] TOXOPLASMA IGG ANTIBODY 2022-03-21 [facility] 21:06:00 [facility] EBV NUCLEAR ANTIGEN IGG TEST 2022-03-21 [facility] 21:06:00 [facility] CYTOMEGALOVIRUS ANTIBODY IGG 2022-03-21 [facility] 21:06:00 [facility] VZV ANTIBODY SCREEN 2022-03-21 [facility] 21:06:00 [facility] ANTI-NUCLEAR ANTIBODY SCREEN 2022-03-21 [facility] 21:06:00 [facility] CRYPTOCOCCAL ANTIGEN 2022-03-21 [facility] CSF/SERUM 21:06:00 [facility] HAV ANTIBODY (IGG AND IGM) 2022-03-21 [facility] 21:06:00 [facility] ANTI-NUCLEAR ANTIBODY TITER 2022-03-21 [facility] 21:06:00 [facility] VITAMIN D, 25-OH 2022-03-21 [facility] exas 21:06:00 [facility] HSV 1 AND 2 GLYCOPROTEIN G 2022-03-21 [facility] IGG 21:06:00 [facility] [place] ANTI-SSA(RO) 2022-03-21 Lucila [facility] xa 21:06:00 [facility]. GREEN 2022-03-21 Esme Edwards [facility] 21:06:00 [facility] GALV ONLY - SYPHILIS IGG/IGM 2022-03-21 [facility] 21:06:00 [facility] ANTI-NUCLEAR 2022-03-21 [facility] xa ANTIBODY-PATHOLOGIST 21:06:00 Medical [facility] INTERPRETATION BASIC METABOLIC PANEL (NA, 2022-03-21 [facility] K, CL, CO2, GLUCOSE, BUN, 21:04:00 [facility] CREATININE, CA) URINALYSIS 2022-03-21 [facility] xa 20:07:00 [facility] URINE CULTURE 2022-03-21 [facility] xa 20:07:00 [facility] CREATININE, URINE RANDOM 2022-03-21 [facility] 20:07:00 [facility] TOTAL PROTEIN, URINE RANDOM 2022-03-21 [facility] 20:07:00 [facility] URINE DRUG (LCMSMS) - 2022-03-21 [facility] COMPREHENSIVE DRUG PANEL 20:07:00 [facility] OSMOLALITY URINE [facility]22[facility]03-[facility] SODIUM, URINE RANDOM 2022-03-21 [facility] 20:06[facility]00 [facility] US ARTERIAL IN OR VENOUS OUT 2022-03-21 [facility] ABDOMEN LIMITED DOPPLER 18:59:24 [facility] GAMMA GLUTAMYLTRANSFERASE 2022-03-21 [facility] 15:06:00 [facility] [place] [facility] [facility] FERRITIN SERUM 2022-03-21 [facility] xa 15:06:00 [facility] OSMOLALITY, SERUM OR PLASMA 2022-03-21 [facility] 15:06:00 [facility] TRIIODOTHYRONINE 2022-03-21 [facility] exas 15:06:00 [facility] THYROID STIMULATING HORMONE 2022-03-21 [facility] 15:06:00 [facility] BASIC METABOLIC PANEL (NA, 2022-03-21 [facility] K, CL, CO2, GLUCOSE, BUN, 15:06:00 [facility] [place] CREATININE, CA) LIPID PANEL (06002)(TOTAL 2022-03-21 [facility] CHOLESTEROL, TRIGLYCERIDES, 15:06:00 [facility] HDL) COMP. METABOLIC PANEL 2022-03-21 [facility] ([id number] 10:20:00 [facility] ETHANOL 2022-03-21 Ambika, [facility] exas 10:20:00 [facility] PROTHROMBIN TIME / INR 2022-03-21 Ambika [facility] 10:20:00 [facility] FIBRINOGEN 2022-03-21 [facility] 10:20[facility]00 [facility] ALBUMIN BODY FLUID 2022-03-21 Ambika [facility] [place] 07:45:00 [facility] T.PROTEIN BODY FLUID 2022-03-21 [place], [facility] 07:45:00 [facility] BODY FLUID DIRECT COUNT 2022-03-21 [facility] 07:45:00 [facility] BODY FLUID (BACTEC BOTTLE) 2022-03-21 Sindy Digna [facility] 07:45:00 [facility] AMMONIA, PLASMA 2022-03-21 [facility] 05:11:00 Formerly Named [facility] G6PD SCREENING TEST 2022-03-21 [facility] 05:11:00 [facility] HB ECG ROUTINE & RHYTHM 2022-03-[address] [facility] STRIP 02:20:13 [facility] LIPASE 2022-03-21 Tom [facility] exas 02:12:00 [facility] TROPONIN I 2022-03-21 Tom Hannah [facility] exas 02:12:00 [facility] COMP. METABOLIC PANEL 2022-03-21 Hannah Santos [facility] ([id number]) 02:12:00 [facility] ETHANOL 2022-03-21 Tom [facility] ex 02:12:00 [facility] CBC WITH DIFF 2022-03-21 Tom [facility] ex 02:12:00 [facility] N-TERMINAL PRO-BNP 2022-03-21 Tom [facility] 02:12:00 [facility] COVID-19 (ID NOW RAPID 2022-03-21 Tom Hannah [facility] TESTING) 02:12:00 [facility] LAB ONLY COVID 2022-03-21 Tom [facility] ex INTERPRETATION 02:12:00 [facility] XR CHEST 1 VW 2022-03-21 Tom [facility] ex 01:26:00 [facility] HOSPITAL ADMISSION 2022-03-20 Doctor Unassigned, [facility] 05:01:00 Chilo [facility] POCT GLUCOSE (AUTOMATED) 2022-03-16 [facility] 16:53:00 [facility] POCT GLUCOSE (AUTOMATED) 2022-03-16 [facility]ina[facility] 13:22:00 [facility] LACTATE DEHYDROGENASE 2022-03-16 [facility] 09:17:00 [facility] MAGNESIUM 2022-03-16 [facility] 09:17:00 [facility] BASIC METABOLIC PANEL (NA, 2022-03-16 London Dangelo [facility] K, CL, CO2, GLUCOSE, BUN, 09:17:00 [facility] CREATININE, CA) CBC WITH DIFF 2022-03-16 [facility] xa 09:17:00 [facility] POCT GLUCOSE (AUTOMATED) 2022-03-16 [facility] 01:58:00 [facility] GLUCOSE BODY FLUID 2022-03-15 [facility] 22:25:00 [facility] T.PROTEIN BODY FLUID 2022-03-15 [facility] 22:25:00 [facility] LDH TOTAL BODY FLUID 2022-03-15 [facility] 22:25:00 [facility] BODY FLUID DIRECT COUNT 2022-03-15 London Dangelo [facility] 22:25:00 [facility] BODY FLUID 2022-03-15 Cassius Viera [facility] CULTURE(AEROBIC/ANAEROBIC) 22:25:00 [facility] POCT GLUCOSE (AUTOMATED) 2022-03-15 [facility] 21:38:00 [facility] POCT GLUCOSE (AUTOMATED) 2022-03-15 [facility] 15:56:00 [facility] POCT GLUCOSE (AUTOMATED) 2022-03-15 [facility] 12:57:00 [facility] MAGNESIUM 2022-03-15 [facility] 09:30:00 [facility] COMP. METABOLIC PANEL 2022-03-15 [facility] ([id number][facility] 09:30:00 [facility] CBC WITH DIFF 2022-03-15 [facility] 09:30:00 [facility] POCT GLUCOSE (AUTOMATED) 2022-03-15 [facility] 01:54:00 [facility] POCT GLUCOSE (AUTOMATED) 2022-03-14 [facility] 21:22:00 [facility] POCT GLUCOSE (AUTOMATED) 2022-03-14 [facility] 16:40:00 [facility] POCT GLUCOSE (AUTOMATED) 2022-03-14 [facility] 12:51:00 [facility] MAGNESIUM 2022-03-14 [facility] 08:54:00 [facility] BASIC METABOLIC PANEL (NA, 2022-03-14 [place] Dangelo [facility] K, CL, CO2, GLUCOSE, BUN, 08:54:00 [facility] CREATININE, CA) CBC WITH DIFF 2022-03-14 [facility] xa 08:54:00 [facility] POCT GLUCOSE (AUTOMATED) 2022-03-14 [facility] 01:19:00 [facility] [place] POCT GLUCOSE (AUTOMATED) 2022-03-13 [facility] 21:38:00 [facility] [place] POCT GLUCOSE (AUTOMATED) 2022-03-13 [facility] 18:09:00 [facility] [place] TEST, SERUM 2022-03-13 Robles Hernandez [facility] 04:05:00 [facility] COMP. METABOLIC PANEL 2022-03-13 Robles Hernandez [facility] ([id number]) 04:05:[address] [facility] [address] HEAD WO CONTRAST 2022-03-13 Robles Hernandez [facility] 03:18:54 [facility] XR CHEST 1 VW 2022-03-13 Robles Hernandez [facility] 03:17:50 [facility] BLOOD CULTURE SCREEN 2022-03-13 Robles Hernandez [facility] 02:57:00 [facility] LIPASE 2022-03-13 Mary, Robles Suarez [facility] 02:57:00 [facility] AMMONIA, PLASMA 2022-03-13 Robles Hernandez [facility] 02:57:00 [facility] TROPONIN I 2022-03-13 Robles Hernandez [facility] 02:57:00 [facility] CBC WITH DIFF 2022-03-13 Robles Hernandez [facility] 02:57:00 [facility] PROTHROMBIN TIME / INR 2022-03-[address] [facility] 02:57:00 [facility] N-TERMINAL PRO-BNP 2022-03-13 Robles Hernandez [facility] 02:57:00 [facility] RAPID INFLUENZA A/B 2022-03-13 Robles Hernandez [facility] 02:48:00 [facility] COVID-19 (ID NOW RAPID 2022-03-[address] [facility] TESTING) 02:48:00 [facility] LAB ONLY COVID 2022-03-13 Robles Hernandez [facility] INTERPRETATION 02:48:00 [facility] ED ECG INTERPRETATION 2022-03-12 Carla Quiroz [facility] 08:36:10 [facility] ECG 12-LEAD 2022-03-12 Unknown, Hl7 Doctor [facility] 06:37:07 [facility] ECG 12-LEAD 2022-03-[address] [facility] 06:35:45 [facility] ECG 12-LEAD 2022-03-12 Unknown, [facility] 06:35:45 [facility] CBC W/PLT COUNT & AUTO 2022-03-12 Quiroz, Carla Saizon [facility] DIFFERENTIAL 00:56:00 [facility] COMPREHENSIVE METABOLIC 2022-03-[address] [facility] PANEL 00:56:00 [facility] CBC W/PLT COUNT & AUTO 2022-03-[address] [facility] DIFFERENTIAL 00:56:00 [facility] POCT-GLUCOSE METER 2022-03-11 [place]un[place], [facility] 08:37:00 [facility] XR CHEST 1 VIEW PORTABLE / 2022-03-11 Jen Anne [facility] BEDSIDE 06:59:00 [facility] CBC (HEMOGRAM ONLY) 2022-03-[address] [facility] 04:18:00 [facility] COMPREHENSIVE METABOLIC 2022-03-[address] [facility] PANEL 04:18:00 [facility] PHOSPHORUS 2022-03-[address] [facility] 04:18:00 [facility] MAGNESIUM 2022-03-11 Trevon Espinoza Chao [facility] 04:18:00 [facility] CALCIUM, IONIZED 2022-03-11 Trevon Espinoza Chao [facility] 04:18:00 [facility] FIBRINOGEN 2022-03-[address] [facility] 04:18:00 [facility] LACTIC ACID, ARTERIAL 2022-03-11 Trevon Espinoza Artur [facility] 04:18:00 [facility] PROTHROMBIN TIME/INR 2022-03-[address] [facility] 04:18:00 [facility] EKG-SCANNED 2022-03-11 Provider, Default [facility] 00:00:00 [facility] POCT-GLUCOSE METER 2022-03-10 [place], [facility] 20:53:00 [facility] POCT-GLUCOSE METER 2022-03-10 [place], [facility] 17:11:00 [facility] POCT-GLUCOSE METER 2022-03-10 [place], [facility] 13:17:00 [facility] CBC (HEMOGRAM ONLY) 2022-03-[address] [facility] 06:16:00 [facility] COMPREHENSIVE METABOLIC 2022-03-[address] [facility] PANEL 06:16:00 [facility] PHOSPHORUS 2022-03-10 Alexis Trevon Siddiqui [facility] 06:16:00 [facility] MAGNESIUM 2022-03-[address] [facility] 06:16:00 [facility] CALCIUM, IONIZED 2022-03-10 Espinoza Trevon Siddiqui [facility] 06:16:00 [facility] FIBRINOGEN 2022-03-[address] [facility] 06:16:00 [facility] LACTIC ACID, ARTERIAL 2022-03-[address] [facility] 06:16:00 [facility] PROTHROMBIN TIME/INR 2022-03-[address] [facility] 06:16:00 [facility] POCT-GLUCOSE METER 2022-03-09 [facility] 21:09:00 [facility] HEREDITARY HEMOCHROMATOSIS 2022-03-09 Juan Maki [facility] 15:20:00 [facility] POCT-GLUCOSE METER 2022-03-09 [facility] 11:07:00 [facility] POCT-GLUCOSE METER 2022-03-[facility] 07:30:00 [facility] XR CHEST 1 VIEW PORTABLE / 2022-03-09 Jen Anne [facility] 07:09:00 [facility] SARS-COV2/RT-PCR (HS & REF 2022-03-[address] [facility] LABS) 05:25:00 [facility] CBC (HEMOGRAM ONLY) 2022-03-[address] [facility] 04:37:00 [facility] COMPREHENSIVE METABOLIC 2022-03-[address] [facility] PANEL 04:37:00 [facility] PHOSPHORUS 2022-03-[address] [facility] 04:37:00 [facility] MAGNESIUM 2022-03-[address] [facility] 04:37:00 [facility] CALCIUM, IONIZED 2022-03-[address] [facility] 04:37:00 [facility] FIBRINOGEN 2022-03-[address] [facility] 04:37:00 [facility] LACTIC ACID, ARTERIAL 2022-03-09 Alexis [address]o [facility] 04:37:00 [facility] PROTHROMBIN TIME/INR 2022-03-[address] [facility] 04:37:00 [facility] POCT-GLUCOSE METER 2022-03-08 [place], [facility] 21:07:00 [facility] POCT-GLUCOSE METER 2022-03-08 [place], [facility] 17:09:00 [facility] POCT-GLUCOSE METER 2022-03-08 [place], [facility] 10:58:00 [facility] POTASSIUM 2022-03-[address] [facility] 10:08:00 [facility] PHOSPHORUS 2022-03-[address] [facility] 07:54:00 [facility] POCT-GLUCOSE METER 2022-03-08 [facility] 07:29:00 [facility] POCT-GLUCOSE METER 2022-03-08 [place], [facility] 06:57:00 [facility] BLOOD GAS, ARTERIAL 2022-03-08 Trevon Espinoza Chao [facility] 03:54:00 [facility] CBC (HEMOGRAM ONLY) 2022-03-[address] [facility] 03:53:00 [facility] COMPREHENSIVE METABOLIC 2022-03-[address] [facility] PANEL 03:53:00 [facility] PHOSPHORUS 2022-03-08 Trevon Espinoza Chao [facility] 03:53:00 [facility] MAGNESIUM 2022-03-08 Trevon Espinoza Chao [facility] 03:53:00 [facility] CALCIUM, IONIZED 2022-03-[address] [facility] 03:53:00 [facility] FIBRINOGEN 2022-03-[address] [facility] 03:53:00 [facility] LACTIC ACID, ARTERIAL 2022-03-08 Trevon Espinoza Chao [facility] 03:53:00 [facility] PROTHROMBIN TIME/INR 2022-03-[address] [facility] 03:53:00 [facility] HEPATITIS A ANTIBODY, IGG 2022-03-[address] [facility] 03:53:00 [facility] HEREDITARY HEMOCHROMATOSIS 2022-03-08 Yrn Aleman [facility] 03:53:00 [facility] CMV PCR, QUANTITATIVE 2022-03-[address] [facility] 03:53:00 [facility] OXYGEN SATURATION, MEASURED 2022-03-[address] [facility] 03:48:00 [facility] XR CHEST 1 VIEW PORTABLE / 2022-03-08 Jen Anne [facility] BED[facility] 02:45:00 [facility] POCT-GLUCOSE METER 2022-03-[address] [facility] 22:24:00 [facility] POTASSIUM 2022-03-[address] [facility] 22:18:00 [facility] POTASSIUM 2022-03-[address] [facility] 17:49:00 [facility] MAGNESIUM 2022-03-[address] [facility] 17:49:00 [facility] POCT-GLUCOSE METER 2022-03-[address] [facility] 16:12:00 [facility] POCT-GLUCOSE METER 2022-03-[address] [facility] 09:46:00 [facility] CALCIUM, IONIZED 2022-03-[address] [facility] 04:17:00 [facility] CBC (HEMOGRAM ONLY) 2022-03-[address] [facility] 03:37:00 [facility] COMPREHENSIVE METABOLIC 2022-03-[address] [facility] PANEL 03:37:00 [facility] PHOSPHORUS 2022-03-[address] [facility] 03:37:00 [facility] MAGNESIUM 2022-03-[address] [facility] 03:37:00 [facility] FIBRINOGEN 2022-03-[address] [facility] 03:37:00 [facility] LACTIC ACID, ARTERIAL 2022-03-[address] [facility] 03:37:00 [facility] PROTHROMBIN TIME/INR 2022-03-[address] [facility] 03:37:00 [facility] BLOOD GAS, ARTERIAL 2022-03-[address] Alexis [address]iqu[address] [facility] 03:36:00 [facility] XR CHEST 1 VIEW PORTABLE / 2022-03-07 Jen [facility] 01:25:00 [facility] VANCOMYCIN LEVEL, TROUGH 2022-03-[address] [facility] [facility] 00:13:00 [facility] POCT-GLUCOSE METER 2022-03-06 Saldivar, Moshe Pérez [facility] 16:30:00 [facility] SPIN/CONCENTRATION CHARGE 2022-03-06 Saldivar, Moshe Pérez [facility] 12:24:00 [facility] BRONCHIAL CULTURE + GRAM 2022-03-06 Saldivar, Moshe Pérez [facility] STAIN 12:24:00 [facility] AFB CULTURE + SMEAR 2022-03-06 Saldivar, Moshe BDominique [facility] (NON-SPUTUM) 12:24:00 [facility] FUNGUS CULTURE + SMEAR 2022-03-06 Saldivar, Moshe Pérez [facility] 12:24:00 [facility] BLOOD GAS, ARTERIAL 2022-03-06 Saldivar, Moshe BDominique [facility] 12:23:00 [facility] POCT-GLUCOSE METER 2022-03-06 Saldivar, Moshe AbelDominique [facility] 12:23:00 [facility] BLOOD GAS, ARTERIAL 2022-03-[address] [facility] 04:24:00 [facility] ECG 12-LEAD 2022-03-06 Unknown, [facility] Doctor [facility] 04:18:31 [facility] ECG 12-LEAD 2022-03-06 Unknown, Hl7 Doctor [facility] 04:18:31 [facility] ECG 12-LEAD 2022-03-06 Unknown, Hl7 Doctor [facility] 04:10:50 [facility] CBC (HEMOGRAM ONLY) 2022-03-[address] [facility] 04:05:00 [facility] COMPREHENSIVE METABOLIC 2022-03-[address] [facility] PANEL 04:05:00 [facility] PHOSPHORUS 2022-03-[address] [facility] 04:05:00 [facility] MAGNESIUM 2022-03-[address] [facility] 04:05:00 [facility] CALCIUM, IONIZED 2022-03-06 Trevon Espinoza [facility]ur [facility] 04:05:00 [facility] FIBRINOGEN 2022-03-[address] [facility] 04:05:00 [facility] LACTIC ACID, ARTERIAL 2022-03-[address] Chao [facility] 04:05:00 [facility] PROTHROMBIN TIME/INR 2022-03-[address] [facility] 04:05:00 [facility] OXYGEN SATURATION, MEASURED 2022-03-[address] [facility] 04:05:00 [facility] POCT-GLUCOSE METER 2022-03-[address] [facility] 01:08:00 [facility] XR CHEST 1 VIEW PORTABLE / 2022-03-06 [facility] 00:54:00 [facility] POCT-GLUCOSE METER 2022-03-[address] [facility] 19:57:00 [facility] POCT-GLUCOSE METER 2022-03-[address] [facility] 18:18:00 [facility] BLOOD GAS, ARTERIAL 2022-03-[address] [facility] 15:35:00 [facility] BLOOD GAS, ARTERIAL 2022-03-[address] [facility] 14:42:00 [facility] POCT-GLUCOSE METER 2022-03-05 Moshe [address] [facility] 12:42:00 [facility] MR ABDOMEN WITH & WITHOUT IV 2022-03-[address] [facility] CONTRAST 11:40:00 [facility] XR CHEST 1 VIEW PORTABLE / 2022-03-05 Dat Grajeda [facility] 11:37:00 [facility] POCT-GLUCOSE METER 2022-03-05 Moshe [address]div[address]ique [facility] 05:45:00 [facility] BLOOD GAS, ARTERIAL 2022-03-05 Espinoza [address] [facility] [facility] 04:55:00 [facility] CBC (HEMOGRAM ONLY) 2022-03-[address] [facility] 04:54:00 [facility] COMPREHENSIVE METABOLIC 2022-03-[address] [facility] PANEL 04:54:00 [facility] PHOSPHORUS 2022-03-[address] [facility] 04:54:00 [facility] MAGNESIUM 2022-03-[address] [facility] 04:54:00 [facility] CALCIUM, IONIZED 2022-03-[address] [facility] 04:54:00 [facility] FIBRINOGEN 2022-03-[address] [facility] 04:54:00 [facility] LACTIC ACID, ARTERIAL 2022-03-[address] [facility] 04:54:00 [facility] PROTHROMBIN TIME/INR 2022-03-[address] [facility] 04:54:00 [facility] OXYGEN SATURATION, MEASURED 2022-03-[address] [facility] 04:54:00 [facility] PREPARE CRYOPRECIPITATE 2022-03-[address] [facility] 23:54:00 [facility] POCT-GLUCOSE METER 2022-03-[address] [facility] 23:43:00 [facility] POCT-GLUCOSE METER 2022-03-[address] [facility] 17:55:00 [facility] CORTISOL,60 MIN 2022-03-[address] [facility] 15:48:00 [facility] CORTISOL,30 MIN 2022-03-04 Alexis Trevon [address] [facility] 15:13:00 [facility] POCT-GLUCOSE METER 2022-03-[address] [facility] 15:02:00 [facility] OXYGEN SATURATION, MEASURED 2022-03-04 Alexis Tre[address] [facility] 14:42:00 [facility] INSERT NON-TUNNEL CV CATH 2022-03-04 [address] [facility] 13:14:12 [facility] AMMONIA 2022-03-[address] [facility] 12:26:00 [facility] XR CHEST 1 VIEW PORTABLE / 2022-03-04 Jen Anne [facility] 12:14:00 [facility] ACTH STIMULATION 2022-03-[address] [facility] 12:11:00 [facility] VANCOMYCIN LEVEL, TROUGH 2022-03-[address] [facility] 12:11:00 [facility] CORTISOL,BASELINE 2022-03-[address] [facility] 12:11:00 [facility] T SPOT TB 2022-03-[address] [facility] 10:19:00 [facility] VITAMIN B12 2022-03-[address] [facility] 10:19:00 [facility] MISCELLANEOUS LAB ORDER 2022-03-[address] [facility] 10:19:00 [facility] URINALYSIS W/ REFLEX URINE 2022-03-04 Jeramy Harley [facility] CULTURE 10:16:00 [facility] POCT-GLUCOSE METER 2022-03-[address] [facility] 06:41:00 [facility] CBC (HEMOGRAM ONLY) 2022-03-[address] [facility] 04:10:00 [facility] COMPREHENSIVE METABOLIC 2022-03-[address] [facility] PANEL 04:10:00 [facility] PHOSPHORUS 2022-03-[address] [facility] 04:10:00 [facility] MAGNESIUM 2022-03-[address] [facility] 04:10:00 [facility] CALCIUM, IONIZED 2022-03-[address] [facility] 04:10:00 [facility] BLOOD GAS, VENOUS 2022-03-[address] [facility] 04:10:00 [facility] FIBRINOGEN 2022-03-[address] [facility] 04:10:00 [facility] PERIPHERAL BLOOD SMEAR - 2022-03-[address] [facility] PATHOLOGIST REVIEW 04:10:00 [facility]22-03-[address] [facility] 04:10:00 [facility] (MANUAL DIFFERENTIAL) 2022-03-[address] [facility] 04:10:00 [facility] CORTISOL 2022-03-[address] [facility] 00:55:00 [facility] POCT-GLUCOSE METER 2022-03-04 Saldivar, Moshe B. [facility] 00:43:00 [facility] PHOSPHORUS 2022-03-[address] [facility] 22:06:00 [facility] CALCIUM, IONIZED 2022-03-[address] [facility] 22:06:00 [facility] BASIC METABOLIC PANEL (7) 2022-03-[address] [facility] 22:06:00 [facility] LACTIC ACID, VENOUS 2022-03-[address] [facility] 22:06:00 [facility] CBC (HEMOGRAM ONLY) 2022-03-[address] [facility] 22:06:00 [facility] HC CAROTID DOPPLER GERALDO 2022-03-03 Lele Hannah [facility] 21:30:00 [facility] POCT-GLUCOSE METER 2022-03-[address] [facility] 19:57:00 [facility] POCT-GLUCOSE METER 2022-03-[address] [facility] 18:22:00 [facility] TRANSFUSE CRYOPRECIPITATE 2022-03-[address] [facility] 16:15:00 [facility] ECG 12-LEAD 2022-03-03 Unknown, Hl7 Doctor [facility] 15:06:51 [facility] ECG 12-LEAD 2022-03-03 Unknown, Hl7 Doctor [facility] 15:06:51 [facility] ECHO W CONTRAST & DOPPLER 2022-03-[address] [facility] 13:59:05 [facility] ABORH, MANUAL 2022-03-[address] [facility] 13:54:00 [facility] BLOOD GAS, ARTERIAL 2022-03-03 Brielle, Lele Saldaña [facility] 13:44:00 [facility] POCT-GLUCOSE METER 2022-03-[address] [facility] 13:39:00 [facility] CALCIUM, IONIZED 2022-03-03 Brielle, Lele Saldaña [facility] 13:34:00 [facility] TYPE AND SCREEN, AUTOMATED 2022-03-[address] [facility] 13:32:00 [facility] CBC W/PLT COUNT & AUTO 2022-03-03 Alyson, Amir [facility] DIFFERENTIAL 13:22:00 [facility] URIC ACID 2022-03-03 Jamayral, Lele Saldaña [facility] 13:22:00 [facility] COMPREHENSIVE METABOLIC 2022-03-03 Jamayral, Lele Saldaña [facility] PANEL 13:22:00 [facility] BILIRUBIN, DIRECT 2022-03-03 Jamayral, Le[facility] Saldaña [facility] 13:22:00 [facility] GAMMA GLUTAMYL TRANSFERASE 2022-03-03 Jamayral, Lele Bowen [facility] (GGT) 13:22:00 [facility] MAGNESIUM 2022-03-03 Jamayral, Lele Saldaña [facility] 13:22:00 [facility] PHOSPHORUS 2022-03-03 Jamayral, Lele Saldaña [facility] 13:22:00 [facility] ZINC 2022-03-03 Jamayral, Lele Saldaña [facility] 13:22:00 [facility] Center ALPHA-1 ANTITRYPSIN MUTATION 2022-03-03 Darlynl, Lele Saldaña [facility] ANALYSIS 13:22:00 Medical Center LIPID PANEL 2022-03-03 Darlynl, Lele Saldaña [facility] 13:22:00 Medical Center CBC W/PLT COUNT & AUTO 2022-03-03 [facility] Amir [facility] DIFFERENTIAL 13:22:00 [facility] VITAMIN D, 25-HYDROXY 2022-03-03 Darlynl, Lele Saldaña [facility] 13:21:00 [facility] Center RUBELLA ANTIBODY, IGG 2022-03-03 Darlynl, Lele Saldaña [facility] 13:21:00 [facility] Center VARICELLA ZOSTER ANTIBODY, 2022-03-03 Jamayral, Lele Bowen [facility] IGG 13:21:00 [facility] Center T3 2022-03-03 Darlynl, Lele Saldaña [facility] 13:21:00 [facility] Center RPR 2022-03-03 Darlynl, Lele Saldaña [facility] 13:21:00 [facility] Center ANTI-NUCLEAR ANTIBODY (EMILIANO) 2022-03-03 Darlynl, Lele Saldaña [facility] 13:20:00 [facility] Center RUBEOLA ANTIBODY IGG 2022-03-03 Darlynl, Lele Saldaña [facility] 13:20:00 Medical Center CRYPTOCOCCAL ANTIGEN 2022-03-03 Brielle, Lele [facility] 13:20[facility] IRON, TIBC, % SAT. (WITHOUT 2022-03-03 Brielle, Lele Saldaña [facility] FERRITIN) 13:20:00 [facility] FERRITIN 2022-03-03 Brielle, Lele Saldaña [facility] 13:20:00 [facility] TRANSFERRIN 2022-03-03 Brielle, Lele Saldaña [facility] 13:20:00 [facility] Center ALPHA FETOPROTEIN (AFP), 2022-03-03 Brielle, Lele Saldaña [facility] TUMOR MARKER 13:20:00 [facility] Center CARCINOEMBRYONIC ANTIGEN 2022-03-03 Brielle, Lele Saldaña [facility] (CEA) 13:20:00 [facility] TSH 2022-03-03 Brielle, Lele Saldaña [facility] 13:20:00 [facility] T4 2022-03-03 Brielle, Lele Saldaña [facility] 13:20:00 [facility] Center HEPATITIS B SURFACE ANTIBODY 2022-03-03 Brielle, Lele Saldaña [facility] 13:20:00 [facility] Center HEPATITIS B CORE ANTIBODY, 2022-03-03 Brielle, Lele Saldaña [facility] TOTAL 13:20:00 [facility] Center CYTOMEGALOVIRUS ANTIBODY, 2022-03-03 Brielle, [facility]le [facility] IGG 13:20:00 [facility] EBV ANTIBODY, IGG 2022-03-03 Brielle, [facility] 13:20:00 [facility] HC LAB HIV-1 AG W/HIV-1&2 AB 2022-03-03 Brielle, Lele Saldaña [facility] 13:20:00 [facility] EMILIANO TITER AND PATTERN 2022-03-03 Brielle, Lele Saldaña [facility] 13:20:00 [facility] Center MUMPS ANTIBODY, IGG 2022-03-03 Brielle, Lele Saldaña [facility] 13:19:00 [facility] Center CERULOPLASMIN 2022-03-03 Brielle, Lele Saldaña [facility] 13:19:00 [facility] Center CARBOHYDRATE ANTIGEN 19-9 2022-03-03 Brielle, Lele Saldaña [facility] (CA 19-9) 13:19:00 [facility] ETHANOL 2022-03-[address] [facility] 13:19:00 [facility] ACTIN (SMOOTH MUSCLE) 2022-03-[address] [facility] ANTIBODY, IGG 13:18:00 [facility] MITOCHONDRIA M2 ANTIBODY 2022-03-[address] [facility] (IGG) 13:18:00 [facility] ZJAYG-6-YHHEHJIUOSK\\, SERUM 2022-03-[address] [facility] 13:18:00 [facility] POCT-GLUCOSE METER 2022-03-[address] [facility] 13:11:00 [facility] DRUG SCREEN, URINE, 2022-03-[address] [facility] TRANSPLANT 12:40:00 [facility] SPIN/CONCENTRATION CHARGE 2022-03-03 AlexisTrevon Chaclara [facility] 12:40:00 [facility] AFB CULTURE + SMEAR 2022-03-[address] [facility] (NON-SPUTUM) 12:40:00 [facility] BRONCHIAL CULTURE + GRAM 2022-03-[address] [facility] STAIN 12:40:00 [facility] FUNGUS CULTURE + SMEAR 2022-03-03 AlexisTrevon Chaclara [facility] 12:40:00 [facility] SCREEN, URINE 2022-03-[address] [facility] 12:18:00 [facility] US ABDOMEN COMPLETE 2022-03-[address] [facility] [facility] 11:46:00 [facility] US DOPPLER 2022-03-[address] [facility] 11:46:00 [facility] FIBRINOGEN 2022-03-03 Shamshirselijah, Amir [facility] 10:45:00 [facility] PROTHROMBIN TIME/INR 2022-03-03 Shamshirsaz, Amir [facility] 10:45:00 [facility] APTT 2022-03-[address] [facility] 10:45:00 [facility] BLOOD GAS, VENOUS 2022-03-03 Shamshirsaz, Amir [facility] 07:55:00 [facility] THROMBOELASTOGRAPH (TEG) 2022-03-03 Lakeisha Shields [facility] 07:55:00 [facility] XR CHEST 1 VIEW PORTABLE / 2022-03-03 Cricket Jeramy [facility] BEDSIDE 02:33:00 [facility] XR ABDOMEN / KUB 1 VIEW 2022-03-[address] [facility] 02:30:00 [facility] PROTHROMBIN TIME/INR 2022-03-[address] [facility] 02:21:00 [facility] APTT 2022-03-[address] [facility] 02:21:00 [facility] COMPREHENSIVE METABOLIC 2022-03-[address] [facility] PANEL 02:21:00 [facility] MAGNESIUM 2022-03-[address] [facility] 02:21:00 [facility] LACTIC ACID, VENOUS 2022-03-[address] [facility] 02:21:00 [facility] FIBRINOGEN 2022-03-[address] [facility] 02:21:00 [facility] CBC (HEMOGRAM ONLY) 2022-03-[address] [facility] 02:21:00 [facility] HEMOGLOBIN A1C 2022-03-[address] [facility] 02:21:00 [facility] BLOOD CULTURE 2022-03-[address] [facility] 02:21:00 [facility] BLOOD CULTURE 2022-03-[address] [facility] 02:20:00 [facility] HEPATITIS B SURFACE ANTIGEN 2022-02-[address] [facility] 19:11:00 [facility] HEPATITIS A ANTIBODY, IGM 2022-02-[address] [facility] 19:11:00 [facility] HEPATITIS B CORE ANTIBODY, 2022-02-27 [facility] IGM 19:11:00 [facility] HEPATITIS C ANTIBODY 2022-02-[address] [facility] [facility] 19:11:00 [facility] EXTERNAL PROVIDER RECORDS 2022-02-25 Doctor Unassigned, [facility] 05:01:00 [facility] CONSULT CLINICAL CASE 2022-01-08 Annel Leon [facility] MANAGEMENT (RN/SW) 08:15:17 CONSULT CLINICAL CASE 2022-01-07 Tahir Arana [facility] MANAGEMENT (RN/SW) 22:38:01 CBC/DIFF 2022-01-07 Yamilet Sulema Augusto [facility] 20:26:00 BASIC METABOLIC PANEL 2022-01-07 [facility] 20:26:00 ALCOHOL, MEDICAL USE ONLY 2022-01-07 Sulema Woodard H arris [facility] 20:26:00 CK, TOTAL 2022-01-07 Yamilet Sulema Augusto [facility] 20:26:00 CBC 2022-01-07 Sulema Woodard [facility] 20:26:00 12 LEAD EKG 2022-01-07 Tahir Arana [facility] 16:30:01 CT ANGIOGRAM ABDOMEN/PELVIS 2020-11-20 [facility] 09:48:33 [facility] POCT TEST 2020-11-20 [facility] 09:27:00 [facility] BILI UNCONJUGATED/BILI 2020-11-20 [facility] CONJUG 08:54:00 [facility] COMP. METABOLIC PANEL 2020-11-20 [facility] ([id number]) 08:54:00 [facility] [place] CBC WITH DIFF 2020-11-20 [facility] xas 08:54:00 [facility] PROTHROMBIN TIME / INR 2020-11-20 [facility] 08:54:00 [facility] POCT GLUCOSE (AUTOMATED) 2020-11-20 Doctor Unassigned, [facility] 08:36:00 [place]ilo [facility] Plan of Care Planned Activity Planned Date Details Comments Source Future Scheduled 2022-04-16 IMM Influenza Mati daniela [facility] Test 00:00:00 Seasonal (>/= 19 yrs) [code = IMM Influenza Seasonal (>/= 19 yrs)] Future Scheduled 2022-03-[address] [facility] Test 00:00:00 (#1) [code = [facility] INFLUENZA VACCINE (#1)] Future Scheduled 2021-11-02 COVID-19 VACCINE ([address] [facility] Test 00:00:00 - Booster for [facility] Center Pfizer series) [code = COVID-19 VACCINE (3 - Booster for Pfizer series)] Future Scheduled 2021-07-[address] [facility] Test 00:00:00 SCREENING (12+) Medical Cent er [code = DEPRESSION SCREENING (12+)] Future Scheduled 2021-03-17 INFLUENZA VACCINE Univer sity of Test 00:00:00 (Season Ended) [facility] [code = INFLUENZA Branch VACCINE (Season Ended)] Future Scheduled 2016 [facility] 00:00:00 malignant neoplasm of cervix (procedure) [code = 192069362] Future Scheduled 2016 [facility] 00:00:00 malignant neoplasm of cervix (procedure) [code = 395120328] Future Scheduled [address] [facility] Test 00:00:00 malignant neoplasm Medical C enter of cervix (procedure) [code = 101842654] Future Scheduled 2007 Screening for University [facility] Test 00:00:00 malignant neoplasm [place] [facility] of cervix Branch (procedure) [code = 152836955] Future Scheduled 2005 DTAP/TDAP/TD [facility] Test 00:00:00 VACCINES (1 - Tdap) [facility] [code = DTAP/TDAP/TD VACCINES (1 - Tdap)] Future Scheduled 2005 DTaP,Tdap,and Td Univers ity of Test 00:00:00 Vaccines (1 - Tdap) [facility] dicms [code = Branch DTaP,Tdap,and Td Vaccines (1 - Tdap)] Future Scheduled 2004 Hepatitis C University of Test 00:00:00 screening [place] [facility] (procedure) [code = Branch 458001238] Future Scheduled 2002 SARS-CoV-2 University of Test 00:00:00 (COVID-19) Vaccine [place] [facility] (1) [code = Branch SARS-CoV-2 (COVID-19) Vaccine (1)] Future Scheduled 1998 Depression University [facility] Test 00:00:00 screening [place] [facility] (procedure) [code = Branch 537554952] Future Scheduled 1992 Imm Pneumococcal [facility] Test 00:00:00 0-64 (1 - PCV) [code = Imm Pneumococcal 0-64 (1 - PCV)] Future Scheduled [address] [facility] Test 00:00:00 VACCINE 0-64 YRS (1 Medical Center - PCV) [code = PNEUMOCOCCAL VACCINE 0-64 YRS (1 - PCV)] Future Scheduled 1987 VARICELLA VACCINES Unive rsity of Test 00:00:00 (1 of 2 - 2-dose [place] [facility] childhood series) Branch [code = VARICELLA VACCINES (1 of 2 - 2-dose childhood series)] Future Scheduled 1987-02-22 COVID-19 Vaccine [facility] Test 00:00:00 (#1) [code = COVID-19 Vaccine (#1)] Future Scheduled 1986 Fluoride Varnish [facility] Test 00:00:00 [code = Fluoride Varnish] Future Scheduled CT ANGIOGRAM [facility] ABDOMEN/PELVIS [facility] [code = 25554] Branch Future Scheduled IRON PANEL [code = Unive rsity of Test 2365] [facility] Future Scheduled IRON PANEL [code = ONCE for 1 Unive rsity of Test 2365] Occurrences [facility] Branch 11/20/2020 until 11/20/2020 Encounters Start End Encounter Admission Attending Care Care Encounter Source Date/Time Date/Time Type Type Clinicians Facility Department ID 2021-11-19 Outpatient [facility] [id number] [place] 09:02:08 [id number] [facility] 2022-03-28 2022-03-28 Emergency X DANNI [facility] ERT [id number] Univers 11:42:00 13:51:00 MARINA ity of [facility] 2022-03-28 2022-03-28 [facility] [id number] Univers 11:42:00 13:51:00 Marina BILLY 350.1.13.10 i ty of [place] [id number] [facility] 084 Branch 2022-03-28 2022-03-28 Transition LUKAS [place] [id number] Univers 00:00:00 00:00:00 of Care Nazanin [place] 350.1.13.10 ity of [place] [id number] [facility] 403 Branch 2022-03-20 2022-03-25 Inpatient X GRACE [facility] GM [id number] Univers 18:38:00 18:33:00 ESME ity of [facility] 2022-03-20 2022-03-25 Hospital Hannah Santos 1.2.840. 114 [id number] Univers 18:38:00 18:33:00 Encounter BarbYamile duke HENRIK 350. 1.13.10 ity of [facility] 4.2.7.2.686 [facility] [id number] Medical [facility], Deepali [facility] 2022-03-20 2022-03-20 Telephone DRE Dale [id number] Univers 00:00:00 00:00:00 Molly CHESTER 350.1.13.[address] [facility] 4.2.7.2.686 Joesph as [id number] [facility] 025 Branch 2022-03-17 2022-03-17 Transition LUKAS [place] 1.2.840.114 [id number] Univers 00:00:00 00:00:00 of Care Nazanin [place] 350.1.13.10 [place]y of [place] [id number] [facility] 403 Branch 2022-03-12 2022-03-16 Inpatient X MED[facility] [id number] Univers 21:42:00 15:43:00 ADNAN ity of [facility] 2022-03-12 2022-03-16 Hospital Robles Hernandez [facility] 1.2.840 .114 [id number] Univers 21:42:00 15:43:00 Encounter Sybil Haney 350.1.13.10 ity [facility] [place].2.7.2.[place] [id number] [facility] 081 Branch 2022-03-12 2022-03-12 Outpatient M [facility] [id number] [facility] 00:00:00 23:59:00 Patti 2022-03-11 2022-03-12 Emergency Richie [facility] [id number] [facility] 19:46:00 19:00:00 Carla [facility] 2022-03-11 2022-03-12 Emergency ER RICHIE [facility] Emergency [id number] [facility] 19:46:00 19:00:00 CARLA 2022-03-11 2022-03-11 Outpatient Bhanu DALE, [facility] [id number] Univers 16:00:00 16:00:00 MOLLY vieira [facility] 2022-03-02 2022-03-11 [facility] ElidaAlina [facility] [id number] 23:18:00 15:30:00 Encounter Moshe Saldivar [facility], [facility], [facility] Lior Fiore, Lakeisha Franks 2022-03-02 2022-03-11 Inpatient UR JAYANT [facility] Gastro [id number] [facility] 23:18:00 15:30:00 , YEMI 2022-03-11 2022-03-11 Travel [facility] [id number] [facility] 00:00[facility]00 00:00:00 [facility] 2022-03-10 2022-03-10 Ashish Radford [facility] [id number] [id number] 00:00:00 00:00:00 salvador Lilly Villafuerte [facility] 2022-03-10 2022-03-10 Ashish Cochran [facility] [id number] 00:00:00 00:00:00 salvador [facility] 2022-03-09 2022-03-09 Ashish Cochran [facility] [id number] 00:00:00 00:00:00 salvador [facility] 2022-03-08 2022-03-08 Ashish Nieto [facility] [id number] 00:00:00 00:00:[address] [facility] 2022-03-07 2022-03-07 Ashish Cochran [facility] [id number] 00:00:00 00:00:00 [facility] 2022-03-04 2022-03-04 Documentat Dimas [facility] [id number] 00:00:00 00:00:00 [facility] 2022-03-04 2022-03-04 Documentat Bonilla [facility] [id number] 00:00:00 00:00:00 [facility] 2022-03-04 2022-03-04 Documentat Bonilla [facility] [id number] 00:00:00 00:00:00 [facility] 2022-03-03 2022-03-03 Outpatient [facility] [id number] [facility] 00:00:00 23:59:00 Patti 2022-03-03 2022-03-03 Orders [facility] [id number] 00:00:00 00:00:00 [facility] 2022-03-03 2022-03-03 Documentat Bridgett [facility] [id number] 00:00:00 00:00:00 [facility] 2022-03-03 2022-03-03 Telephone Prabhakar [facility] [id number] 00:00:00 00:00:00 [facility] 2022-03-03 2022-03-03 Abstract Dre Joaquin [facility] [id number] 00:00:00 00:00:00 [facility] 2022-03-02 2022-03-02 Telephone Janes Brody [facility] [id number] 00:00[facility]00 00:00:00 [facility] 2022-02-28 2022-02-28 Lab [facility] [id number] 00:00:00 00:00:00 [facility] 2022-02-25 2022-02-25 Orders Doctor ERICKSON 1.2.840.114 [id number] Univers 00:00:00 00:00:00 Only Unassigned, HENRIK 350.1.13.[address] [facility] 4.2.7.2.686 Joesph as [id number] [address] 2022-02-15 2022-02-15 Letter [facility] 1.2.840.114 [id number] Univers 00:00:00 00:00:00 (Out) [facility] 350.1.13.10 ity of [place] 4.2.7.2.686 Joesph as TOYA?BLEA [id number] [address] MEDICAL OFFICE BUILDING 2022-02-15 2022-02-15 Telephone [facility] [id number] [id number] Univers 00:00:00 00:00:00 [facility] 350.1.13.10 ity of [place] 4.2.7.2.686 Joesph as TOYA?BLEA [id number] [address] MEDICAL OFFICE [facility] 2022-02-08 2022-02-08 Office [facility] 1.2.840.114 [id number] Univers 15:30:00 16:30:39 Visit [facility] 350.1.13.10 ity of [place] 4.2.7.2.686 Joesph as TOYA?BLEA [id number] [address] MEDICAL OFFICE [facility] 2022-01-21 2022-01-21 Emergency [facility] [id number] [facility] 20:17:00 20:17:00 54 2022-01-21 2022-01-21 Emergency Emergency Carlitos Hernandez [facility] JM [id number] [facility] 20:17:00 20:17:00 54 2022-01-07 2022-01-08 Emergency Tahir Arana [facility] [id number] [place] 19:58:00 10:30:00 [facility] 2022-01-07 2022-01-08 Emergency TAHIR ARANA [facility] MED [id number] [facility] 19:58:00 10:30:00 [facility] 2021-12-29 2022-01-05 Inpatient LESLIE Shin INTE.02 [id number] [facility] 16:01:00 16:58:00 Farhad [id number] [facility] 2021-12-29 2022-01-05 Inpatient LESLIE CentenoBM INTE.02 [id number] [facility] 16:01:00 16:58:00 Farhad 61 [facility] 2022-01-03 2022-01-03 Outpatient Physician, LESLIEMN MLAB [id number] [facility] 19:26:00 19:26:00 No 45 [facility] 2021-12-30 2021-12-30 Outpatient WILLIAM Fitzpatrick, HCACL LABO [id number] [facility] 09:23:00 09:23:00 Alexis 25 [facility] 2021-12-10 2021-12-10 Telephone CARLOS Vega [facility] [id number] [id number] MD 00:00:00 00:00:00 [facility] 350.1.13.58 H [facility] 9.2.7.2.686 MEDICAL [id number] [address] 3 2021-11-13 2021-12-08 Inpatient E CLAUDE ESPARZANW MED [id number] [facility]NW 12:28:00 19:36:00 HALINA 2021-04-12 2021-04-12 Emergency X ELGIN, [facility] ERT [id number] Univers 21:10:00 21:25:00 [facility] 2020-09-13 2020-09-15 Inpatient [facility] [id number] Memoria 18:41:14 00:52:00 bhanu Vides [address] [place] [address] 2020-09-13 2020-09-15 Inpatient [facility] [id number] Memoria 18:41:14 00:52:00 bhanu Vides [address] [place] [address] 2020-09-13 2020-09-14 Inpatient E YURY [facility] MED [id number] [facility] 15:07:00 18:52:00 , GURDEEP 2020-09-13 2020-09-14 Outpatient Dhamotharan [facility] [id number] 12:41:14 18:52:00 , [place] 2020-09-13 2020-09-13 Outpatient Dhamotharan [facility] [id number] 12:41:14 12:41:14 , Gurdeep 01 [place] 2020-01-27 2020-01-27 Emergency nullFlavo [facility] [id number] Memoria 21:52:37 23:57:00 r Peewee 00 l [facility] 2020-01-27 2020-01-27 Emergency nullFlavo [facility] [id number] Memoria 21:52:37 23:57:00 r Peewee 00 l [facility] 2020-01-27 2020-01-27 Outpatient Aznaurova-A [facility] [id number] 16:52:37 18:57:00 nderson, 00 Carolyn Results Test Description Test Time Test Comments Results Result Comments Source FUNGUS CULTURE + SMEAR 2022-03-30 01:03:40 Test Item Value Reference Range Interpretation Comme nts CULTURE (BEAKER) (test code = 1095) No fungus isolated in 28 days FUNGUS SMEAR (BEAKER) (test code = 1406) No fungi seen VITAMIN K1, [id number] 21:12:58 Test Item Value Reference Range Interpretation Comments VIT K1 (test code = 25.54 nmol/L 0.22-4.88 H Elevate d vitamin K 9622-2) concentration m ay be associated with increased lipid concentration.I NTERPR ETIVE INFORMATI ON: Vitamin K1, Ser um Vitamin K concentration i s reported as nan omoles per liter (nmol /L). To convert concentration t o nanograms per milliliter (ng/ mL), multiply the re sult by 0.45. This t est was developed a nd its performance characteristics determined by [facility]. I t has not been cleare d or approved by the [place] Food and Drug Administration. This test was perfor med in a CLIA certifie d laboratory and is intended for cl inical purposes.Perfor med By: [address] [id number] Director: Eunice Covington MD, PhD Lab Interpretation Abnormal (test code = 78263-2) [facility]ANTIT[facility]PSIN [id number] 20:35:00 Test Item Value Reference Range Interpretation Comments A1A (test code = 155 mg/dL 90-200 To convert to umol/L, 1825-9) multiply mg/dL by 0.185 A1A PHENO (test M1M1 The patient appears to code = 25095-1) have a maddie l phenotype. All M alleles ( including subtypes M1, M2 , and M3) produce normal serum concentrations of tlibu-0-imqyuvo e inhibitor and are not ass ociated with clinical d isease. Caution in inte rpretation is advised if t he patient has been transf used within the previous 21 days.Performed By: [facility] [address] [place] [address] [id number] Director: Alexis zheng MD, PhD [facility]. Sendout- Hemoglobin A1c #[id number] 2022-03-25 16:18:54 Test Item Value Reference Range Interpretation Comments Miscellaneous Test (test See scanned report code = [id number]) Performing Lab (test code [facility] = [id number]) [facility], SERUM OR [id number] 15:59:09 Test Item Value Reference Range Interpretation Comments ALPHA BATSHEVA (test code = 5 mg/L 5.5-18.0 L This test was 1823-4) developed and i ts performance characteristics determined by [facility]. I t has not been cleare d or approved by the [place] Food and Drug Administration. This test was perfor med in a CLIA certified laboratory and is intended for cl inical purposes. GAMMA BATSHEVA (test code = 1.2 mg/L 0.0-6.0 Perfo rmed By: [facility] 21702-2) [address] [address]Zieqwybify Director: Eunice Covington MD, PhD Lab Interpretation Abnormal (test code = 54125-8) [facility], SERUM OR [id number] 15:59:08 Test Item Value Reference Range Interpretation Comments RET A (test code = <0.06 0.30-1.20 L 2923-1) RET PALM (test code = <0.02 0.00-0.10 76353-9) EDVIN INTER (test code See Note Retin ol greater than = 90403-5) 0.3 mg/L is typ ically associated with adequate liver stores in adults, and is within normal l imits for children. R etinol less than 0.10 mg/L may indicate deplet ed liver stores and elvia re deficiency. Thi s test was developed a nd its performance characteristics determined by [facility]. I t has not been cleare d or approved by the [place] Food and Drug Administration. This test was perfor med in a CLIA certified laboratory and is intended for cl inical purposes.Perfor med By: [facility] [address] [id number] Director: Eunice Covington MD, PhD Lab Interpretation Abnormal (test code = 94603-3) [facility] [id number] 19:26:31 Test Item Value Reference Range Interpretation Comments Nil (test code = IU/mL 73176-5) TB1 minus Nil (test IU/mL code = 51967-3) TB2 minus Nil (test IU/mL code = 7229335058) Mitogen minus Nil IU/mL (test code = 60841-8) QFT Gold Plus Negative Negative Result (test code = 56152-4) SONIA (test code = The QuantiFERON? TB Gold SONIA) Plus (in Tube) assay is intended for use as an aid in diagnosis of TB infection. A qualitative result (i.e., Negative, Positive, or Indeterminate) is based on interpretation of the four values, Nil, TB1 minus Nil, TB2 minus Nil, and Mitogen minus Nil. ?The Nil value represents nonspecific reactivity produced by the patient specimen. ?The TB1 minus Nil value indicates the interferon-gamma response of CD4+ T lymphocytes, specifically stimulated by the TB1 antigens. ?The TB2 minus Nil value indicates interferon-gamma response of both CD4+ and CD8+ T lymphocytes, stimulated by TB2 antigens. ?The Mitogen minus Nil value serves as the positive control, demonstrating the successful responsiveness of the T lymphocytes in patient specimen. A negative result suggests that M. tuberculosis infection is unlikely. ?However, in patients with high suspicion of exposure, a negative test should be repeated on a new sample. A positive result indicates an interferon-gamma response to M. tuberculosis antigens, suggesting infection with M. tuberculosis. Positive results in patients at low-risk for tuberculosis should be interpreted with caution and repeat testing on a new sample is advised. ?If repeat testing is positive, treatment may be indicated. ?Consult Infectious Disease Services for further recommendations. False positive results may occur in patients with prior infection with M. marinum, M. szulgai, or M. kansasii. For an indeterminate result, the likelihood of determining infection with M. tuberculosis cannot be determined. ?If clinically indicated, repeat testing on a new sample is advised. For further information, refer to http://www.cdc.gov/mmwr/pd f/rr/xu9645.pdf and https://doi.org/10.1093/ci d/frj575. [facility]-SSA(RO)2022-03-24 17:49:31 Test Item Value Reference Range Interpretation Comments ANTI-SSA(RO) (test code = Negative Negative 7013365660) SONIA (test code = SONIA) Positive - Antibody detected.Negative - No antibody detected. Lab Interpretation (test Normal code = 19107-5) [facility]-DAMON(SM)2022-03-24 17:49:16 Test Item Value Reference Range Interpretation Comments Anti-Damon (test code = Negative Negative 4260727229) SONIA (test code = SONIA) Positive - Antibody detected.Negative - No antibody detected. Lab Interpretation (test Normal code = 10532-2) [facility]-SSB(LA)2022-03-24 17:49:16 Test Item Value Reference Range Interpretation Comments Anti-SSB(LA) (test code = Negative Negative 1530792385) SONIA (test code = SONIA) Positive - Antibody detected.Negative - No antibody detected. Lab Interpretation (test Normal code = 74760-7) [facility] MUSCLE AB,IGG [id number] 11:32:30 Test Item Value Reference Range Interpretation Comments F-ACTIN (SMOOTH See_Comment If F-Actin (Smooth Muscle) MUSCLE) AB, Antibody, IgG i s negative, IGG(BEAKER) (test the Smooth Muscle Antibody code = 90601-7) titer by IFA is not performed.REFER ENCE INTERVAL: F-Act in (Smooth Muscle) Antibod y, IgG by ?MAGDALENA ?19 Units or less . ...... Negative ?20 - 30 Units .......... Weak Positive-Sugges t repeat ? testing in two to three weeks ? with fresh specimen. ?31 Units or gr eater..... Positive-Sugges tive of ? autoimmune hepa titis type 1 ? or chronic acti ve hepatitis. F-ac tin IgG antibodies have been shown to have increas ed sensitivity for autoimmune hepatitis (AIH) but lower specificity seda n smooth muscle antibodi es (SMA). F-actin IgG ant ibodies can also be seen in SMA-negative di sease controls (non-A IH), especially in p atients with primary biliary cirrhosis and chronic hep atitis C infections. Josue e patients with AIH may be SMA-positive bu t negative for F-actin IgG . Consider testing for SMA by IFA if suspicion for A IH is strong.Performe d By: [employer] [place], [place] [address]Ywyctesavs Director: Alexis zheng MD, PhD [Automated mess age] The system which ge nerated this result transmit afshin reference range : 0 - 19 Units. The refe rence range was not used to interpret this result as normal/abnormal . [facility] CenterMITOCHONDRIAL M2 AB, [id number] 11:32:29 Test Item Value Reference Range Interpretation Comments AMA (test code = See_Comment REFERENCE I NTERVAL: 12637-3) Mitochondrial ( M2) Antibody, IgG ? ?20.0 Uni ts or less ......... Negat sumit ?20.1 - 24.9 Units..... ...... Equivocal ?25.0 Units or greater....... Positive Anti-mitochondr ial antibodies (AMA ) are thought to be present i n 90-95% of patients with p rimary biliary cholang itis (PBC). However, the fr equency of detected antibo dies may be cohort or assay dependent, as lower sensit ivities have been reported. Not all PBC patients are po sitive for AMA; some patie nts may be positive for SP 100 and/or GP210 antibodie s. A negative result does not rule out PBC.Performed B y: [address] [address]Eqbpoahfqb Director: Alexis zheng MD, PhD [Automated mess age] The system which ge nerated this result transmit afshin reference range: 0.0 - 24 .9 Units. The reference range was not used to interpret th is result as normal/abnormal . [facility] CenterANTI-NUCLEAR ANTIBODY-PATHOLOGIST [id number] 23:23:42ANA - Pathologist InterpretationANA HEp-2 IIFA Pathologist Interpretation Report Patient Name: Divina Collazo? ?Antinuclear Antibody (EMILIANO) Test (Anti-Cell Antibodies Test) Indirect I mmunofluorescence Assay on HEp-2 Cells Screening titer: 1:80 (adults, > 18 years old), 1:40 (pediatrics, <= 18 years old)?Result: The antinuclear antibody (EMILIANO) test is positive, demonstrating the AC-4/5-Speckled Pattern with a titer of 1:320. A titer greater than or equal to 1:160 is generally considered to be clinically significant. ? Remarks: The AC-4/5-Speckled Pattern is associated with autoantibodies to numerous antigens, including (but not limited) to SS-A/Ro, SS-B/La, U1RNP, Sm, and RNA polymerase III. For more information (including clinical associations), the International Consensuson EMILIANO Patterns (ICAP) guidelines can be found at www.anapatterns.org.?A diagnosis cannot be based exclusively on EMILIANO detection and/or pattern and thus should be made via the integration of patient history, physical exam findings, and other diagnostic tests as clinically indicated. ? Nimco Valles MD ?03/23/2022 ?6:23 PM 03/23/2022 6:23 PM [facility]Un[facility] ANTI-NUCLEAR ANTIBODY [id number] 23:23:11 Test Item Value Reference Range Interpretation Comments EMILIANO Titer by IFA 1:320 (test code = 6683407981) EMILIANO Pattern (test Speckled code = 5508869264) SONIA (test code = SONIA) Anti-nuclear antibodies are seen in a variety of autoimmune diseases and may also be seen in low titers in otherwise normal individuals without evidence of autoimmune disease. In general, a titer greater than or equal to 1:160 is considered significant. For further information, contact the appropriate Specialist. For additional EMILIANO tests, refer to the Laboratory Test Directory. The specimen will be held for 7 days. [facility] METABOLIC PANEL (NA, K, CL, CO2, GLUCOSE, BUN, CREATININE, CA)2022-03-22 21:51:21 Test Item Value Reference Range Interpretation Comments NA (test code = 126 mmol/L 135-145 L 0550155865) K (test code = 3.4 mmol/L 3.5-5 L Slight 3832639488) hemolysis CL (test code = 97 mmol/L 98-108 L 6626086442) CO2 TOTAL (test code 26 mmol/L 23-31 = 6776359053) AGAP (test code = 2-16 5592775506) BUN (test code = 5 mg/dL 7-23 L Slight 4556983736) hemolysis GLUCOSE (test code = 145 mg/dL 70-110 H 9726837647) CREATININE (test code 0.28 mg/dL 0.5-1.04 L = 1087517281) CALCIUM (test code = 7.4 mg/dL 8.6-10.6 L 8839501790) eGFR (test code = mL/min/1.73m2 2255359849) SONIA (test code = SONIA) Association of [...] tests). Lab Interpretation Abnormal (test code = 70502-1) [facility] CenterANTI-NUCLEAR ANTIBODY [id number] 20:35:32 Test Item Value Reference Range Interpretation Comments EMILIANO (test code = Positive Negative A 3218234878) SONIA (test code = SONIA) Negative: ?No Anti-Nuclear Antibodies detected by IFA. Positive: ?EMILIANO IFA screen performed with a 1:80 dilution in adults and a 1:40 dilution in pediatrics. ?A titer is performed and reported separately when the EMILIANO is "Positive" or when "Cytoplasmic staining is observed." Lab Interpretation (test Abnormal code = 02595-4) [facility] CenterVITAMIN D, [id number] 17:04:22 Test Item Value Reference Range Interpretation Comments VIT D 25OH (test code = 25-80 L 14803-6) SONIA (test code = SONIA) Deficiency: <20 ng/mLInsufficiency: 20-24 ng/mLOptimal: 25-80 ng/mL Lab Interpretation (test Abnormal code = 68472-5) [facility] CenterBASIC METABOLIC PANEL (NA, K, CL, CO2, GLUCOSE, BUN, CREATININE, CA)2022-03-22 15:40:28 Test Item Value Reference Range Interpretation Comments NA (test code = 129 mmol/L 135-145 L 6969172850) K (test code = 3.5 mmol/L 3.5-5 8475251158) CL (test code = 100 mmol/L 98-108 2239368287) CO2 TOTAL (test code = 30 mmol/L 23-31 8937508334) AGAP (test code = 2-16 L 2725397588) BUN (test code = 5 mg/dL 7-23 L 6916725649) GLUCOSE (test code = 120 mg/dL 70-110 H 0036985885) CREATININE (test code = 0.33 mg/dL 0.5-1.04 L 9445834473) CALCIUM (test code = 7.6 mg/dL 8.6-10.6 L 9455170811) eGFR (test code = mL/min/1.73m2 9860679098) SONIA (test code = SONIA) Association of [...] tests). Lab Interpretation Abnormal (test code = 96347-8) [facility] CenterIMMUNOGLOBULIN G A M [id number] 14:56:28 Test Item Value Reference Range Interpretation Comments IgA (test code = 3102664626) 736 mg/dL 70-312 H IgG (test code = 3268208232) 1140 mg/dL 636-1600 IgM (test code = 6439472555) 321 mg/dL 56-352 Lab Interpretation (test code = Abnormal 88430-6) [facility] CenterCERULOPLASMIN2022-09-06 14:55:43 Test Item Value Reference Range Interpretation Comments CERULO (test code = 1501880446) 20 mg/dL 25-63 L Lab Interpretation (test code = Abnormal 33295-8) [facility] CenterMEASLES [id number] 14:22:17 Test Item Value Reference Range Interpretation Comments MEASLES IgG (test Positive Negative code = 9757300983) SONIA (test code = SONIA) Positive - Indicates that the patient was exposed to Measles through infection or vaccination.Negative - Indicates patient could be susceptible to Measles infection.Equivocal - A second sample should be sent. [facility] CenterVZV ANTIBODY [id number] 14:22:17 Test Item Value Reference Range Interpretation Comments VZV IgG antibody Positive Negative (test code = 77991-7) SONIA (test code = SONIA) Positive - Indicates the patient was exposed to VZV through infection or vaccination.Negative - Indicates the patient could be susceptible to VZV infection.Equivocal - A second specimen should be sent for testing. [facility] CenterRUBELLA SCREEN [id number] 14:22:16 Test Item Value Reference Range Interpretation Comments Rubella screen IgG Equivocal Negative (test code = 8721067239) SONIA (test code = SONIA) Positive - Indicates the patient was exposed to Rubella through infection or vaccination.Negative - Indicates the patient could be susceptible to Rubella infection.Equivocal - A second specimen should be sent. [facility] CenterGAL ONLY - SYPHILIS [id number] 14:21:36 Test Item Value Reference Range Interpretation Comments Syphilis IgG/IgM (test Non-reactive Non-reactive code = 45018-3) SONIA (test code = SONIA) Non-reactive - No serologic evidence of T. pallidum infection. Cannot exclude incubating or early syphilis. Submit a second specimen in 2-4 weeks if syphilis is clinically suspected. Equivocal - Further testing to follow. Reactive - Further testing to follow. Lab Interpretation (test Normal code = 64307-0) [facility] CenterHSV 1 AND 2 GLYCOPROTEIN G [id number] 14:20:55 Test Item Value Reference Range Interpretation Comments HSV I IgG (test code Positive Negative = 8321409648) HSV II IgG (test code Negative Negative = 6196515792) SONIA (test code = SONIA) Positive - IgG antibody to HSV 1 and/or HSV 2 detected.Negative - No HSV 1 and/or HSV 2 antibody detected.Equivocal - A second sample should be sent. [facility] CenterTOXOPLASMA IGG [id number] 14:20:39 Test Item Value Reference Range Interpretation Comments TOXO IGG (test code Negative = 5060765836) SONIA (test code = Positive - Indicates SONIA) current or past T. gondii infection.Negative - No serologic evidence of T. gondii infection. Cannot exclude acute T. gondii infection. Equivocal - A second sample should be sent. [facility] CenterCYTOMEGALOVIRUS ANTIBODY [id number] 14:20:39 Test Item Value Reference Range Interpretation Comments CMV IGG (test code = Positive Negative 4851013869) SONIA (test code = Positive - Indicates SONIA) current or past CMV infection.Negative - Indicates no serologic evidence of CMV infection. Cannot exclude acute CMV infection.Equivocal - A second specimen should be sent for repeat testing. [facility] CenterEBV NUCLEAR ANTIGEN IGG [id number] 14:18:57 Test Item Value Reference Range Interpretation Comments EBV Nuclear Antigen IgG Positive Negative A (test code = 3756971786) SONIA (test code = SONIA) Positive - IgG to EBV nuclear antigen detected.Negative - No EBV nuclear antigen IgG detected.Equivocal - A second sample should be sent. Lab Interpretation (test Abnormal code = 74381-2) [facility] CenterCRYPTOCOCCAL ANTIGEN [id number] 12:56:33 Test Item Value Reference Range Interpretation Comments Specimen Tested (test code = Serum 3638091736) Cryptococcal Antigen (test code = Negative Negative 33660-5) [facility] CenterPREGNANCY TEST, [id number] 23:17:42 Test Item Value Reference Range Interpretation Comments PREG SERUM (test code Negative = 4312926318) SONIA (test code = SONIA) Less than 10 IU/L. ?If low titer or ectopic is suspected, resubmit specimen in 48-72 hours. [facility] CenterHAV ANTIBODY (IGG AND IGM)2022-03-21 23:05:24 Test Item Value Reference Range Interpretation Comments HAV Total (test code Positive = 1096548292) HAVT Semi-Quantitative (test code = 5055588177) SONIA (test code = SONIA) Indicates past or present infection with HAV or exposure to HAV due to vaccination. [facility] CenterALPHA [id number] 22:53:06 Test Item Value Reference Range Interpretation Comments AFP (test code = 1.6 ng/mL See_Comment [Automated 8061668544) message] The system which generated this result transmitted reference range : <=7.5. The reference range was not used to interpret this result as normal/abnormal . SONIA (test code = SONIA) Biotin has been reported to cause a negative bias, interpret results relative to patient's use of biotin. Lab Interpretation Normal (test code = 86478-5) [facility] [id number] 22:34:45 Test Item Value Reference Range Interpretation Comments FREE T4 (test code = See_Comment [Autom ated message] 5270995057) The system [employer] generated this result transmitted ref erence range: 0.78 - 2 .20 ng/dL:. The ref erence range was not u sed to interpret this result as normal/abnor mal. Lab Interpretation (test Normal code = 23503-4) [facility] CenterTRIIODOTHYRONINE2022-09-05 22:33:44 Test Item Value Reference Range Interpretation Comments T3 (test code = 8332617317) 76.3 ng/dL 97-170 L Lab Interpretation (test code = Abnormal 69944-3) [facility] CenterIRON [id number] 22:22:25 Test Item Value Reference Range Interpretation Comments IRON (test code = 6316718184) 22 ug/dL 50-160 L TIBC (test code = 2845090725) 129 ug/dL 250-410 L % FE SAT (test code = 9771049624) 17 % 20-50 L Lab Interpretation (test code = Abnormal 97772-8) [facility] CenterType and Screen - Second separate ABO RH required for UNOS guidelines ONCE [id number] 22:12:00 Test Item Value Reference Range Interpretation Comments ABO & RH (test code A POSITIVE Performe d at [facility] = 20) Laboratory Serv [facility] [address] [facility] s [address]Eswr Free: [phone] A No. [id number] IAT (test code = Negative Performed a t [facility] 1185) Laboratory Serv [facility] s [address]Eqhm Free: [phone] A No. [id number] [facility] METABOLIC PANEL (NA, K, CL, CO2, GLUCOSE, BUN, CREATININE, CA)2022-03-21 21:48:18 Test Item Value Reference Range Interpretation Comments NA (test code = 127 mmol/L 135-145 L 8662015148) K (test code = 3.8 mmol/L 3.5-5 6804364144) CL (test code = 98 mmol/L 98-108 5132184674) CO2 TOTAL (test code = 28 mmol/L 23-31 9840537908) AGAP (test code = 2-16 L 0267040360) BUN (test code = 7-23 L 3504285348) GLUCOSE (test code = 132 mg/dL 70-110 H 4340957230) CREATININE (test code = 0.31 mg/dL 0.5-1.04 L 1241602417) CALCIUM (test code = 7.6 mg/dL 8.6-10.6 L 1816779147) eGFR (test code = mL/min/1.73m2 4203755606) SONIA (test code = SONIA) Association of [...] tests). Lab Interpretation Abnormal (test code = 81458-2) [facility] CenterOSMOLALITY, SERUM OR [id number] 19:03:35 Test Item Value Reference Range Interpretation Comments OSMOLALITY (test code = See_Comment L [Au tomated message] 2692-2) The system [employer] generated this result transmitted ref erence range: 278 - 30 5 mOsm/kg. The reference range was not used to int erpret this result as normal/abnormal . Lab Interpretation (test Abnormal code = 27210-7) [facility] CenterFERRITIN [id number] 17:27:53 Test Item Value Reference Range Interpretation Comments FERRITIN (test code = 128.0 ng/mL 6-137 2491944669) SONIA (test code = SONIA) Biotin has been reported to cause a negative bias, interpret results relative to patient's use of biotin. Lab Interpretation (test Normal code = 07328-5) [facility] CenterTHYROID STIMULATING [id number] 17:23:52 Test Item Value Reference Range Interpretation Comments TSH (test code = See_Comment [Automated message] 3933003560) The system [employer] generated this result transmitted ref erence range: 0.45 - 4 .70 mIU/L. The refe rence range was not u sed to interpret this result as normal/abnor mal. Lab Interpretation (test Normal code = 54265-6) [facility] CenterLIPID PANEL (54705)(TOTAL CHOLESTEROL, TRIGLYCERIDES, HDL)2022-03-21 16:49:10 Test Item Value Reference Range Interpretation Comments CHOL (test code = 122 mg/dL 120-200 4612797045) HDL (test code = 22 mg/dL See_Comment L [Automated message] 5060731339) The system [employer]me generated this result transmit afshin reference range : >=50. The refer ence range was not u sed to interpret th is result as normal/abnormal . HDLC RATIO (test code = See_Comment H [Au tomated message] 4314700652) The system [employer]me generated this result transmit afshin reference range : <=4.5. The refe rence range was not u sed to interpret th is result as normal/abnormal . TRIG (test code = 74 mg/dL 30-170 4079342203) LDL CHOL (test code = 85 mg/dL See_Comment [Auto mated message] 55564-2) The system [employer]me generated this result transmit afhsin reference range : <=160. The refe rence range was not u sed to interpret th is result as normal/abnormal . VLDL (test code = 15 mg/dL 5-60 2863335852) Lab Interpretation (test Abnormal code = 69678-6) [facility] CenterGAMMA [id number] 16:49:10 Test Item Value Reference Range Interpretation Comments GGT (test code = 3148603176) 54 U/L 13-40 H Lab Interpretation (test code = Abnormal 41743-3) [facility] CenterBASIC METABOLIC PANEL (NA, K, CL, CO2, GLUCOSE, BUN, CREATININE, CA)2022-03-21 15:38:30 Test Item Value Reference Range Interpretation Comments NA (test code = 127 mmol/L 135-145 L 6482715497) K (test code = 3.9 mmol/L 3.5-5 7825210588) CL (test code = 98 mmol/L 98-108 3046796084) CO2 TOTAL (test code = 31 mmol/L 23-31 8142548795) AGAP (test code = 2-16 L 2402442670) BUN (test code = 7-23 L 3479789759) GLUCOSE (test code = 109 mg/dL 70-110 9702822705) CREATININE (test code = 0.30 mg/dL 0.5-1.04 L 0109929708) CALCIUM (test code = 8.2 mg/dL 8.6-10.6 L 3503531040) eGFR (test code = mL/min/1.73m2 0210977101) SONIA (test code = SONIA) Association of [...] tests). Lab Interpretation Abnormal (test code = 06455-0) [facility]. METABOLIC PANEL (21775)2022-03-21 03:00:01 Test Item Value Reference Range Interpretation Comments NA (test code = 119 mmol/L 135-145 LL 9695728439) K (test code = 3.9 mmol/L 3.5-5 7311544882) CL (test code = 92 mmol/L 98-108 L 5677065445) CO2 TOTAL (test code = 26 mmol/L 23-31 1353385964) AGAP (test code = 2-16 L 5397309756) BUN (test code = 5 mg/dL 7-23 L 7765634494) GLUCOSE (test code = 126 mg/dL 70-110 H 9976038947) CREATININE (test code = 0.29 mg/dL 0.5-1.04 L 0009584367) TOTAL BILI (test code = 4.0 mg/dL 0.1-1.1 H 6302337387) CALCIUM (test code = 8.0 mg/dL 8.6-10.6 L 9402316570) T PROTEIN (test code = 6.4 g/dL 6.3-8.2 5071542384) ALBUMIN (test code = 2.6 g/dL 3.5-5 L 9785755746) ALK PHOS (test code = 129 U/L 34-122 H 5140043971) ALTv (test code = 32 U/L 5-35 1742-6) AST(SGOT) (test code = 51 U/L 13-40 H 9720506279) eGFR (test code = mL/min/1.73m2 9786089671) SONIA (test code = SONIA) Association of [...] tests). Lab Interpretation Abnormal (test code = 85259-2) [facility] CenterCARMEN [id number] 02:48:49 Test Item Value Reference Interpretation Comments Range TROPONIN I (test 0.006 ng/mL See_Comment [Automated code = 4479983490) message] The system which generated this result [...] biotin. Lab Interpretation Normal (test code = 18595-9) [facility] CenterN-TERMINAL [id number] 02:48:49 Test Item Value Reference Range Interpretation Comments NT-proBNP (test code 228 pg/mL See_Comment H [Autom ated = 9441603858) message] The system which generated this result transmitted reference range : <=125. The reference range was not used to interpret this result as normal/abnormal . SONIA (test code = SONIA) Biotin has been reported to cause a negative bias, interpret results relative to patient's use of biotin. Lab Interpretation Abnormal (test code = 67953-5) [facility] CenterETHANOL2022-09-05 02:38:02 ALCOHOL<10mg/dL03/20/2022 9:38 PM CDTUTMB LABORATORY SERVICESToxic Greater than or equal to 80 mg/dL. NOTE: Whole blood values are approximately 10% to 15% lower than serum and plasma.[facility] CenterLIPASE2022-09-05 02:35:06 Test Item Value Reference Range Interpretation Comments LIPASE (test code = 2065129631) 31 U/L 0-220 Lab Interpretation (test code = Normal 09027-5) [facility] CenterCB WITH [id number] 02:27:08 Test Item Value Reference Range Interpretation Comments WBC (test code = See_Comment [Automated 7890-2) message] The sy stem which generated this [...] as normal/abnormal . HGB (test code = 9.5 g/dL 11.6-15 L 718-7) HCT (test code = 27.7 % 35.7-45.2 L 4544-3) MCV (test code = 98.9 fL 80.6-95.5 H 787-2) MCH (test code = 33.9 pg 25.9-32.8 H 785-6) MCHC (test code = 34.3 g/dL 31.6-35.1 786-4) RDW-SD (test code = 65.5 fL 39-49.9 H 79667-5) RDW-CV (test code = 18.2 % 12-15.5 H 788-0) PLT (test code = See_Comment L [Automated 777-3) message] The sy stem which generated this result transmitted reference range : 166 - 358 10*3/ ?L. The reference r yvonne was not used to interpret this result as normal/abnormal . MPV (test code = 10.3 fL 9.5-12.9 83152-9) NRBC/100 WBC (test See_Comment [Automat ed code = 7326685269) message] The system which generated this result transmitted reference range : 0.0 - 10.0 /100 WBCs. The refer ence range was not u sed to interpret th is result as normal/abnormal . NRBC x10^3 (test code See_Comment [Auto mated = [id number]) message] The s ystem which generated this result transmitted reference range : 10*3/?L. The reference range was not used to interpret this result as normal/abnormal . GRAN MAT (NEUT) % 70.3 % (test code = 770-8) IMM GRAN % (test code 0.30 % = 4449806845) LYMPH % (test code = 17.8 % 736-9) MONO % (test code = 9.2 % 5905-5) EOS % (test code = 2.2 % 713-8) BASO % (test code = 0.2 % 706-2) GRAN MAT x10^3(ANC) 4.20 10*3/uL 1.88-7.09 (test code = 0890027647) IMM GRAN x10^3 (test 0-0.06 code = 4540207047) LYMPH x10^3 (test code 1.06 10*3/uL 1.32-3.29 L = 731-0) MONO x10^3 (test code 0.55 10*3/uL 0.33-0.92 = 742-7) EOS x10^3 (test code = 0.13 10*3/uL 0.03-0.39 711-2) BASO x10^3 (test code 0.01-0.07 = 704-7) Lab Interpretation Abnormal (test code = 15195-7) [facility] + [id number] 01:35:09 Test Item Value Reference Range Interpretation Comments Result (test code = 2+ Marybeth albicans A 6463-4) Fungus Smear (test code = No fungi seen 1406) Lab Interpretation (test Abnormal code = 34234-0) [facility] [id number] 01:35:09 Test Item Value Reference Range Interpretation Comments CULTURE (BEAKER) A 2+ Marybeth albicans (test code = 1095) FUNGUS SMEAR No fungi seen (BEAKER) (test code = 1406) FUNGUS CULTURE + [id number] 00:06:37 Test Item Value Reference Range Interpretation Comments CULTURE (BEAKER) A <1+ Same or ganism has (test code = been isolated f rom 1095) culture(s) of t he same body site and collection date . Repeat identification performed only after consultation wi the clinical microb iology laboratory.Refe r to previous cultur e ofCandida albic ans FUNGUS SMEAR No fungi seen (BEAKER) (test code = 1406) POCT GLUCOSE (AUTOMATED)2022-03-16 16:57:08 Test Item Value Reference Range Interpretation Comments POCT GLU (test code = 9114079281) 114 mg/dL 70-110 H Lab Interpretation (test code = Abnormal 95640-8) [facility] GLUCOSE (AUTOMATED)2022-03-16 13:29:50 Test Item Value Reference Range Interpretation Comments POCT GLU (test code = 5218677092) 90 mg/dL 70-110 Lab Interpretation (test code = Normal 74211-9) [facility] GLUCOSE (AUTOMATED)2022-03-16 02:07:22 Test Item Value Reference Range Interpretation Comments POCT GLU (test code = 5601059156) 148 mg/dL 70-110 H Lab Interpretation (test code = Abnormal 92415-8) [facility] GLUCOSE (AUTOMATED)2022-03-15 21:47:06 Test Item Value Reference Range Interpretation Comments POCT GLU (test code = 7085013969) 146 mg/dL 70-110 H Lab Interpretation (test code = Abnormal 44015-1) [facility] GLUCOSE (AUTOMATED)2022-03-15 16:39:40 Test Item Value Reference Range Interpretation Comments POCT GLU (test code = 0385538452) 126 mg/dL 70-110 H Lab Interpretation (test code = Abnormal 83539-7) [facility] GLUCOSE (AUTOMATED)2022-03-15 13:02:21 Test Item Value Reference Range Interpretation Comments POCT GLU (test code = 3901993450) 101 mg/dL 70-110 Lab Interpretation (test code = Normal 77685-7) [facility] GLUCOSE (AUTOMATED)2022-03-15 02:07:01 Test Item Value Reference Range Interpretation Comments POCT GLU (test code = 7052547291) 105 mg/dL 70-110 Lab Interpretation (test code = Normal 54025-2) [facility] GLUCOSE (AUTOMATED)2022-03-14 21:38:03 Test Item Value Reference Range Interpretation Comments POCT GLU (test code = 2389090273) 117 mg/dL 70-110 H Lab Interpretation (test code = Abnormal 32229-6) [facility] GLUCOSE (AUTOMATED)2022-03-14 16:42:29 Test Item Value Reference Range Interpretation Comments POCT GLU (test code = 7175371270) 95 mg/dL 70-110 Lab Interpretation (test code = Normal 18343-5) [facility] GLUCOSE (AUTOMATED)2022-03-14 12:54:32 Test Item Value Reference Range Interpretation Comments POCT GLU (test code = 8970570363) 85 mg/dL 70-110 Lab Interpretation (test code = Normal 54391-7) [facility] GLUCOSE (AUTOMATED)2022-03-14 12:24:08 Test Item Value Reference Range Interpretation Comments POCT GLU (test code = 1906860367) 94 mg/dL 70-110 Lab Interpretation (test code = Normal 92475-3) [facility] GLUCOSE (AUTOMATED)2022-03-14 01:26:20 Test Item Value Reference Range Interpretation Comments POCT GLU (test code = 2063860396) 104 mg/dL 70-110 Lab Interpretation (test code = Normal 08884-6) [facility] GLUCOSE (AUTOMATED)2022-03-13 20:48:41 Test Item Value Reference Range Interpretation Comments POCT GLU (test code = 6024259202) 177 mg/dL 70-110 H Lab Interpretation (test code = Abnormal 54814-4) [facility]. METABOLIC PANEL (14268)2022-03-13 04:28:13 Test Item Value Reference Range Interpretation Comments NA (test code = 133 mmol/L 135-145 L 6506862772) K (test code = 3.0 mmol/L 3.5-5 L 5566262832) CL (test code = 107 mmol/L 98-108 7572479903) CO2 TOTAL (test code = 22 mmol/L 23-31 L 7250115840) AGAP (test code = 2-16 1095544970) BUN (test code = 6 mg/dL 7-23 L 4527582477) GLUCOSE (test code = 110 mg/dL 70-110 8587251901) CREATININE (test code = 0.24 mg/dL 0.5-1.04 L 2560499188) TOTAL BILI (test code = 6.1 mg/dL 0.1-1.1 H 2186977305) CALCIUM (test code = 7.2 mg/dL 8.6-10.6 L 9365989294) T PROTEIN (test code = 5.0 g/dL 6.3-8.2 L 3675651363) ALBUMIN (test code = 2.3 g/dL 3.5-5 L 1793456074) ALK PHOS (test code = 116 U/L 34-122 3344402745) ALTv (test code = 46 U/L 5-35 H 1742-6) AST(SGOT) (test code = 54 U/L 13-40 H 6026047476) eGFR (test code = mL/min/1.73m2 2728220397) SONIA (test code = SONIA) Association of [...] tests). Lab Interpretation Abnormal (test code = 87304-7) [facility] CenterProthrombin Time / [id number] 03:56:33 Test Item Value Reference Range Interpretation Comments PROTIME PATIENT (test See_Comment H [Auto mated message] code = 5964-2) The system [employer] generated this result transmitted ref erence range: 12.0 - 1 4.7 Seconds. The reference range was not used to int erpret this result as normal/abnormal . INR (test code = 6301-6) Nor mal INR <1.1; Warfarin Therap eutic range 2.0 to 3. 0 or 2.5 to 3.5, dep ending upon the indica tions. Lab Interpretation (test Abnormal code = 81831-4) [facility] CenterTROPONIN [id number] 03:48:32 Test Item Value Reference Interpretation Comments Range TROPONIN I (test 0.019 ng/mL See_Comment [Automated code = 7308737171) message] The system which generated this result [...] biotin. Lab Interpretation Normal (test code = 54516-2) [facility] CenterCB WITH [id number] 03:48:12 Test Item Value Reference Range Interpretation Comments WBC (test code = See_Comment [Automated 8590-2) message] The sy stem which generated this result transmitted reference range : 4.30 - 11.10 10*3/?L. The reference range was not used to interpret this result as normal/abnormal . RBC (test code = See_Comment L [Automated 219-8) message] The sy stem which generated this result transmitted reference range : 3.93 - 5.25 10*6/?L. The reference range was not used to interpret this result as normal/abnormal . HGB (test code = 9.7 g/dL 11.6-15 L 718-7) HCT (test code = 29.8 % 35.7-45.2 L 4544-3) MCV (test code = 104.6 fL 80.6-95.5 H 787-2) MCH (test code = 34.0 pg 25.9-32.8 H 785-6) MCHC (test code = 32.6 g/dL 31.6-35.1 786-4) RDW-SD (test code = 88.3 fL 39-49.9 H 23736-7) RDW-CV (test code = 23.2 % 12-15.5 H 788-0) PLT (test code = See_Comment L [Automated 777-3) message] The sy stem which generated this result transmitted reference range : 166 - 358 10*3/ ?L. The reference r yvonne was not used to interpret this result as normal/abnormal . MPV (test code = 11.5 fL 9.5-12.9 13935-4) IPF % (test code = 5.0 % 1.3-7.7 Platelet count 4431825047) measured by fluorescence method. NRBC/100 WBC (test See_Comment [Automat ed code = 9760481010) message] The system which generated this result transmitted reference range : 0.0 - 10.0 /100 WBCs. The refer ence range was not u sed to interpret th is result as normal/abnormal . NRBC x10^3 (test code See_Comment [Auto mated = 8127988582) message] The s ystem which generated this result transmitted reference range : 10*3/?L. The reference range was not used to interpret this result as normal/abnormal . GRAN MAT (NEUT) % 85.3 % (test code = 770-8) IMM GRAN % (test code 0.60 % = 0203799539) LYMPH % (test code = 8.5 % 736-9) MONO % (test code = 5.4 % 5905-5) EOS % (test code = 0.1 % 713-8) BASO % (test code = 0.1 % 706-2) GRAN MAT x10^3(ANC) 9.25 10*3/uL 1.88-7.09 H (test code = 1964063728) IMM GRAN x10^3 (test 0.06 10*3/uL 0-0.06 code = 9209261463) LYMPH x10^3 (test code 0.92 10*3/uL 1.32-3.29 L = 731-0) MONO x10^3 (test code 0.59 10*3/uL 0.33-0.92 = 742-7) EOS x10^3 (test code = 0.03-0.39 L 711-2) BASO x10^3 (test code 0.01-0.07 = 704-7) Lab Interpretation Abnormal (test code = 70604-1) [facility] CenterN-TERMINAL [id number] 03:45:31 Test Item Value Reference Range Interpretation Comments NT-proBNP (test code 1460 pg/mL See_Comment H [Autom ated = 9330359627) message] The system which generated this result transmitted reference range : <=125. The reference range was not used to interpret this result as normal/abnormal . SONIA (test code = SONIA) Biotin has been reported to cause a negative bias, interpret results relative to patient's use of biotin. Lab Interpretation Abnormal (test code = 16061-2) [facility] CenterLIPASE2022-08-28 03:36:13 Test Item Value Reference Range Interpretation Comments LIPASE (test code = 5956563551) 65 U/L 0-220 Lab Interpretation (test code = Normal 25233-5) [facility] CenterAMMONIA, [id number] 03:21:51 Test Item Value Reference Range Interpretation Comments AMMONIA (test code = 2529559884) 43 umol/L 9-33 H Lab Interpretation (test code = Abnormal 37273-6) [facility] CenterECG/EKG [id number] 08:36:10 Test Item Value Reference Range Interpretation Comments SONIA (test code = SONIA) Carla Quiroz MD 03/12/2022 8:38 AMECG/EKG Interpretation Date/Time: 03/12/2022 8:36 AMPerformed by: Carla Quiroz MDAuthorized by: Carla Quiroz MD The ECG was interpreted by ED physician. This ECG was compared with previous ECG(s).The ECG is interpreted as sinus rhythm. Rate is normal rate. Heart rate is 92 BPM.ST segments abnormal. Clinical Impression: abnormal ECGECG reviewed and does not meet STEMI criteria. Lab Interpretation Abnormal (test code = 74823-7) [facility] [id number] 02:32:58 Test Item Value Reference Range Interpretation Comments TOTAL PROTEIN 5.3 gm/dL 6.0-8.3 L (BEAKER) (test code = 770) ALBUMIN (BEAKER) 2.3 g/dL 3.5-5.0 L (test code = 1145) ALKALINE 116 U/L 40-150 PHOSPHATASE (BEAKER) (test code = 346) BILIRUBIN TOTAL 7.6 mg/dL 0.2-1.2 H (BEAKER) (test code = 377) SODIUM (BEAKER) 133 meq/L 136-145 L (test code = 381) POTASSIUM (BEAKER) 3.2 meq/L 3.5-5.1 L (test code = 379) CHLORIDE (BEAKER) 104 meq/L 98-107 (test code = 382) CO2 (BEAKER) (test 21 meq/L 22-29 L code = 355) BLOOD UREA 8 mg/dL 7-21 NITROGEN (BEAKER) (test code = 354) CREATININE 0.37 mg/dL 0.57-1.25 L (BEAKER) (test code = 358) GLUCOSE RANDOM 81 mg/dL 70-105 (BEAKER) (test code = 652) CALCIUM (BEAKER) 7.9 mg/dL 8.4-10.2 L (test code = 697) AST (SGOT) 62 U/L 5-34 H (BEAKER) (test code = 353) ALT (SGPT) 53 U/L 6-55 (BEAKER) (test code = 347) EGFR (BEAKER) 135 Interpretatio n of eGFR (test code = 1092) mL/min/1.[address] age Description sq m Result G1 Norm al or high >=90 G2 Mildly decreased 60-89 G3a Mildl y to moderately 45-5 9 G3b Moderately to s everely 30-44 G4 Severl y decreased 15-29 G5 Kidne y failure <15Reported eGF R is based on the CKD-EPI 2021 equation that d oes not use a race coefficientEsti mated GFR is not as accur ate as Creatinine Ana corrales in predicting glom erular filtration rate . Estimated GFR is not appl icable for dialysis patien ts Oil Fire Specialist ID - BSSpecimen moderately ictericCBC W/PLT COUNT & AUTO [id number] 01:21:22 Test Item Value Reference Range Interpretation Comments WHITE BLOOD CELL COUNT (BEAKER) 6.3 K/ L 3.5-10.5 (test code = 775) RED BLOOD CELL COUNT (BEAKER) 2.40 M/ L 3.93-5.22 L (test code = 761) HEMOGLOBIN (BEAKER) (test code = 8.4 GM/DL 11.2-15.7 L 410) HEMATOCRIT (BEAKER) (test code = 25.4 % 34.1-44.9 L 411) MEAN CORPUSCULAR VOLUME (BEAKER) 105.8 fL 79.4-94.8 H (test code = 753) MEAN CORPUSCULAR HEMOGLOBIN 35.0 pg 25.6-32.2 H (BEAKER) (test code = 751) MEAN CORPUSCULAR HEMOGLOBIN CONC 33.1 GM/DL 32.2-35.5 (BEAKER) (test code = 752) RED CELL DISTRIBUTION WIDTH 24.0 % 11.7-14.4 H (BEAKER) (test code = 412) PLATELET COUNT (BEAKER) (test code 99 K/CU MM 150-450 L = 756) MEAN PLATELET VOLUME (BEAKER) 11.1 fL 9.4-12.3 (test code = 754) NUCLEATED RED BLOOD CELLS (BEAKER) 0 /100 WBC 0-0 (test code = 413) NEUTROPHILS RELATIVE PERCENT 77 % (BEAKER) (test code = 429) LYMPHOCYTES RELATIVE PERCENT 16 % (BEAKER) (test code = 430) MONOCYTES RELATIVE PERCENT 7 % (BEAKER) (test code = 431) EOSINOPHILS RELATIVE PERCENT 1 % (BEAKER) (test code = 432) BASOPHILS RELATIVE PERCENT 0 % (BEAKER) (test code = 437) NEUTROPHILS ABSOLUTE COUNT 4.80 K/ L 1.56-6.13 (BEAKER) (test code = 670) LYMPHOCYTES ABSOLUTE COUNT 0.97 K/ L 1.18-3.74 L (BEAKER) (test code = 414) MONOCYTES ABSOLUTE COUNT (BEAKER) 0.44 K/ L 0.24-0.36 H (test code = 415) EOSINOPHILS ABSOLUTE COUNT 0.03 K/ L 0.04-0.36 L (BEAKER) (test code = 416) BASOPHILS ABSOLUTE COUNT (BEAKER) 0.00 K/ L 0.01-0.08 L (test code = 417) IMMATURE GRANULOCYTES-RELATIVE 0 % 0-1 PERCENT (BEAKER) (test code = 2801) RAD, CHEST, 1 VIEW, NON [id number] 11:18:00Reason for exam:- >intubatedShould this be performed at the bedside?->Yes [facility] : 1985 Sex: FFINAL REPORT INDICATION: intubated COMPARISON: 03/09/2022 TECHNIQUE: Single frontalview of the chest. FINDINGS: Lines, tubes, and devices: None.Lungs and pleura: No focal consolidation. Scattered linear atelectasis is present. No pneumothorax.Heart and mediastinum: Normal heart size.Unremarkable mediastinal contours.Osseous structures: No acute abnormality. Moderate rightward convexity of the thoracic spine. The patient is rotated to the right.Other: None. IMPRESSION: No acute intrathoracic abnormality. Signed: Nely Radford Verified Date/Time: 03/11/2022 11:18:05 Reading Location: [facility] Radiology Reading Room POC-Glucose [id number] 08:49:15 Test Item Value Reference Range Interpretation Comments POC-Glucose Meter (test 110 mg/dL 70-110 : TE STED AT [facility] code = 1538) [address] [facility], [address]: Oil Fire Specialist/Techni shantelle ID = [id number] for MARI NICHOLSON Lab Interpretation (test Normal code = 94531-4) [facility]POCT[facility]SE [id number] 08:49:15 Test Item Value Reference Range Interpretation Comments POC-GLUCOSE METER 110 mg/dL 70-110 : TESTED A T [facility] [address] (BEAKER) (test code = [address] [place], 1538) [address]: Oil Fire Specialist/Techni shantelle ID = [id number] for MARI DELGADO COMPREHENSIVE METABOLIC [id number] 06:43:06 Test Item Value Reference Range Interpretation Comments TOTAL PROTEIN 5.4 gm/dL 6.0-8.3 L (BEAKER) (test code = 770) ALBUMIN (BEAKER) 2.4 g/dL 3.5-5.0 L (test code = 1145) ALKALINE 113 U/L 40-150 PHOSPHATASE (BEAKER) (test code = 346) BILIRUBIN TOTAL 8.2 mg/dL 0.2-1.2 H (BEAKER) (test code = 377) SODIUM (BEAKER) 134 meq/L 136-145 L (test code = 381) POTASSIUM (BEAKER) 3.0 meq/L 3.5-5.1 L (test code = 379) CHLORIDE (BEAKER) 106 meq/L 98-107 (test code = 382) CO2 (BEAKER) (test 22 meq/L 22-29 code = 355) BLOOD UREA 9 mg/dL 7-21 NITROGEN (BEAKER) (test code = 354) CREATININE 0.40 mg/dL 0.57-1.25 L (BEAKER) (test code = 358) GLUCOSE RANDOM 101 mg/dL 70-105 (BEAKER) (test code = 652) CALCIUM (BEAKER) 7.9 mg/dL 8.4-10.2 L (test code = 697) AST (SGOT) 75 U/L 5-34 H (BEAKER) (test code = 353) ALT (SGPT) 65 U/L 6-55 H (BEAKER) (test code = 347) EGFR (BEAKER) 132 Interpretatio n of eGFR (test code = 1092) mL/min/1.[address] age Description sq m Result G1 Maddie l or high >=90 G2 Mildly decreased 60-89 G3a Mildl y to moderately 45-5 9 G3b Moderately to s everely 30-44 G4 Severl y decreased 15-29 G5 Kidney failure <15Reported eGF R is based on the CKD-EPI 2020 equation that d oes not use a race coefficientEsti mated GFR is not as accur ate as Creatinine Ana corrales in predicting glom erular filtration rate . Estimated GFR is not appl icable for dialysis patien ts Oil Fire Specialist ID - DREAD MSpecimen moderately [id number] 06:40:23 Test Item Value Reference Range Interpretation Comments PHOSPHORUS (BEAKER) (test code = 2.1 mg/dL 2.3-4.7 L 604) Oil Fire Specialist ID - DREAD [id number] 06:40:22 Test Item Value Reference Range Interpretation Comments MAGNESIUM (BEAKER) (test code = 1.7 mg/dL 1.6-2.6 627) Oil Fire Specialist ID - DREAD MCBC (HEMOGRAM ONLY)2022-03-11 05:30:29 Test Item Value Reference Range Interpretation Comments WHITE BLOOD CELL COUNT 9.3 K/ L 3.5-10.5 (BEAKER) (test code = 775) RED BLOOD CELL COUNT 2.67 M/ L 3.93-5.22 L (BEAKER) (test code = 761) HEMOGLOBIN (BEAKER) 9.1 GM/DL 11.2-15.7 L (test code = 410) HEMATOCRIT (BEAKER) 28.2 % 34.1-44.9 L (test code = 411) MEAN CORPUSCULAR 105.6 fL 79.4-94.8 H Discordant MCV VOLUME (BEAKER) (test result s compared to code = 753) previous result s; clinical correl ation required. MEAN CORPUSCULAR 34.1 pg 25.6-32.2 H HEMOGLOBIN (BEAKER) (test code = 751) MEAN CORPUSCULAR 32.3 GM/DL 32.2-35.5 HEMOGLOBIN CONC (BEAKER) (test code = 752) RED CELL DISTRIBUTION 23.8 % 11.7-14.4 H WIDTH (BEAKER) (test code = 412) PLATELET COUNT 105 K/CU MM 150-[address] T (BEAKER) (test code = result s compared to 756) previous result s; clinical correl ation required. MEAN PLATELET VOLUME 12.0 fL 9.4-12.3 (BEAKER) (test code = 754) NUCLEATED RED BLOOD 0 /100 WBC 0-0 CELLS (BEAKER) (test code = 413) Lactic Acid, [id number] 05:29:47 Test Item Value Reference Range Interpretation Comments Lactate, Art (test code = 1.1 mmol/L 0.5-2.2 2874) SONIA (test code = SONIA) Oil Fire Specialist ID - DREAD Brennan moderately icteric Lab Interpretation (test Normal code = 62074-3) [facility] HospitalLACTIC ACID, [id number] 05:29:47 Test Item Value Reference Range Interpretation Comments LACTATE BLOOD ARTERIAL (2) 1.1 mmol/L 0.5-2.2 (BEAKER) (test code = 2874) [employer] Specialist ID - DREAD Brennan moderately [id number] 05:28:06 Test Item Value Reference Range Interpretation Comments FIBRINOGEN LEVEL (BEAKER) (test 177 mg/dl 225-434 L code = 658) PROTHROMBIN TIME/[id number] 05:27:39 Test Item Value Reference Range Interpretation Comments PROTIME (BEAKER) 19.4 seconds 11.9-14.2 H (test code = 759) INR (BEAKER) (test 1.75 See_Comment [Automat ed message] code = 370) The system [employer] generated this result transmitted ref erence range: <=5.90. The reference range was not used to int erpret this result as normal/abnormal . RECOMMENDED COUMADIN/WARFARIN INR THERAPY RANGESSTANDARD DOSE: 2.0 - 3.0 Includes: PROPHYLAXIS for venous thrombosis, systemic embolization; TREATMENT for venous thrombosis and/or pulmonary embolus.HIGH RISK: Target INR is 2.5-3.5 for patients with mechanical heart valves.CALCIUM, [id number] 05:20:20 Test Item Value Reference Range Interpretation Comments CALCIUM IONIZED (BEAKER) (test 1.11 mmol/L 1.12-1.27 L code = 698) PH, BLOOD (BEAKER) (test code = 7.48 1810) POCT-GLUCOSE [id number] 21:04:54 Test Item Value Reference Range Interpretation Comments POC-GLUCOSE METER 123 mg/dL 70-110 H : TESTED A T [facility] 6720 (BEAKER) (test code = [place], 1538) [address]: Oil Fire Specialist/Techni shantelle ID = [id number] for AMERICO FINK POCT-GLUCOSE [id number] 17:23:30 Test Item Value Reference Range Interpretation Comments POC-GLUCOSE METER 102 mg/dL 70-110 : TESTED A T [facility] 6720 (BEAKER) (test code = JOSE R [place] [facility], 1538) [address]: Oil Fire Specialist/Techni shantelle ID = [id number] for JASWINDER MARTE POCT-GLUCOSE [id number] 13:29:05 Test Item Value Reference Range Interpretation Comments POC-GLUCOSE METER 82 mg/dL 70-110 : TESTED A T [facility] 6720 (BEAKER) (test code = JOSE R [place] [facility], 1538) [address]: Oil Fire Specialist/Techni shantelle ID = [id number] for JASWINDER RESTREPO COMPREHENSIVE METABOLIC [id number] 07:50:34 Test Item Value Reference Range Interpretation Comments TOTAL PROTEIN 4.9 gm/dL 6.0-8.3 L (BEAKER) (test code = 770) ALBUMIN (BEAKER) 2.2 g/dL 3.5-5.0 L (test code = 1145) ALKALINE 103 U/L 40-150 PHOSPHATASE (BEAKER) (test code = 346) BILIRUBIN TOTAL 7.9 mg/dL 0.2-1.2 H (BEAKER) (test code = 377) SODIUM (BEAKER) 134 meq/L 136-145 L (test code = 381) POTASSIUM (BEAKER) 3.4 meq/L 3.5-5.1 L (test code = 379) CHLORIDE (BEAKER) 105 meq/L 98-107 (test code = 382) CO2 (BEAKER) (test 23 meq/L 22-29 code = 355) BLOOD UREA 10 mg/dL 7-21 NITROGEN (BEAKER) (test code = 354) CREATININE 0.40 mg/dL 0.57-1.25 L (BEAKER) (test code = 358) GLUCOSE RANDOM 82 mg/dL 70-105 (BEAKER) (test code = 652) CALCIUM (BEAKER) 7.7 mg/dL 8.4-10.2 L (test code = 697) AST (SGOT) 82 U/L 5-34 H (BEAKER) (test code = 353) ALT (SGPT) 67 U/L 6-55 H (BEAKER) (test code = 347) EGFR (BEAKER) 132 Interpretatio n of eGFR (test code = 1092) mL/min/1.[address] age Description sq m Result G1 Maddie l or high >=90 G2 Mildly decreased 60-89 G3a Mildl y to moderately 45-5 9 G3b Moderately to s everely 30-44 G4 Severl y decreased 15-29 G5 Kidney failure <15Reported eGF R is based on the CKD-EPI 2020 equation that d oes not use a race coefficientEsti mated GFR is not as accur ate as Creatinine Ana antoni in predicting glom erular filtration rate . Estimated GFR is not appl icable for dialysis patien ts Oil Fire Specialist ID - PIAYA LSpecimen moderately ictericCBC (HEMOGRAM ONLY)2022-03-10 07:37:28 Test Item Value Reference Range Interpretation Comments WHITE BLOOD CELL COUNT 5.7 K/ L 3.5-10.5 (BEAKER) (test code = 775) RED BLOOD CELL COUNT 2.29 M/ L 3.93-5.22 L (BEAKER) (test code = 761) HEMOGLOBIN (BEAKER) 8.1 GM/DL 11.2-15.7 L (test code = 410) HEMATOCRIT (BEAKER) 25.1 % 34.1-44.9 L (test code = 411) MEAN CORPUSCULAR 109.6 fL 79.4-94.8 H discordant results VOLUME (BEAKER) (test compar ed to previous, code = 753) clinical correl ation required. MEAN CORPUSCULAR 35.4 pg 25.6-32.2 H HEMOGLOBIN (BEAKER) (test code = 751) MEAN CORPUSCULAR 32.3 GM/DL 32.2-35.5 HEMOGLOBIN CONC (BEAKER) (test code = 752) RED CELL DISTRIBUTION 25.4 % 11.7-14.4 H WIDTH (BEAKER) (test code = 412) PLATELET COUNT 54 K/CU MM 150-450 L (BEAKER) (test code = 756) MEAN PLATELET VOLUME Unable to report due (BEAKER) (test code = to abn ormal Platelet 754) population distribution. NUCLEATED RED BLOOD 0 /100 WBC 0-0 CELLS (BEAKER) (test code = 413) [id number] 07:32:21 Test Item Value Reference Range Interpretation Comments MAGNESIUM (BEAKER) (test code = 1.7 mg/dL 1.6-2.6 627) [employer] Specialist ID - GEOVANNA [id number] 07:32:21 Test Item Value Reference Range Interpretation Comments PHOSPHORUS (BEAKER) (test code = 2.6 mg/dL 2.3-4.7 604) [employer] Specialist ID - GEOVANNA [id number] 07:17:17 Test Item Value Reference Range Interpretation Comments FIBRINOGEN LEVEL (BEAKER) (test 133 mg/dl 225-434 L code = 658) LACTIC ACID, [id number] 07:15:38 Test Item Value Reference Range Interpretation Comments LACTATE BLOOD ARTERIAL (2) 1.1 mmol/L 0.5-2.2 (BEAKER) (test code = 2874) [employer] Specialist ID - GEOVANNA LSpecimen moderately ictericCALCIUM, [id number] 07:14:48 Test Item Value Reference Range Interpretation Comments CALCIUM IONIZED (BEAKER) (test 0.92 mmol/L 1.12-1.27 L code = 698) PH, BLOOD (BEAKER) (test code = 7.53 1810) PROTHROMBIN [id number] 07:11:53 Test Item Value Reference Range Interpretation Comments PROTIME (BEAKER) 21.0 seconds 11.9-14.2 H (test code = 759) INR (BEAKER) (test 1.94 See_Comment [Automat ed message] code = 370) The system [employer] generated this result transmitted ref erence range: <=5.90. The reference range was not used to int erpret this result as normal/abnormal . RECOMMENDED COUMADIN/WARFARIN INR THERAPY RANGESSTANDARD DOSE: 2.0 - 3.0 Includes: PROPHYLAXIS for venous thrombosis, systemic embolization; TREATMENT for venous thrombosis and/or pulmonary embolus.HIGH RISK: Target INR is 2.5-3.5 for patients with mechanical heart valves.POCT-GLUCOSE [id number] 21:24:08 Test Item Value Reference Range Interpretation Comments POC-GLUCOSE METER 94 mg/dL 70-110 : TESTED A T [facility] 6720 (BEAKER) (test code = JOSE R Drummond [place], 1538) [address]: Oil Fire Specialist/Techni shantelle ID = [id number] for AMERICO MCKENZIE SARS-CoV2/RT-PCR (Asymptomatic ONLY)2022-03-09 14:39:13 Test Item Value Reference Range Interpretation Comments SARS-COV2/RT-PCR Negative Not Detected, (test code = Negative, See 38902-1) external report for linked test SARS-COV-2 [facility] TONY PERFORMING LAB (test code = 85867-4) SONIA (test code = Negative result for this SONIA) test determines that SARS-CoV-2 RNA was not present in the specimen above the Limit of Detection (LOD). However, Negative results do not preclude SARS-CoV-2 infection and should not be used as the sole basis for treatment or patient management decisions. Negative results must be combined with clinical observations, patient history, and epidemiological information. A false negative result may occur if a specimen is improperly collected, transported or handled. A false negative result should be considered if patient's recent exposures or clinical presentation indicate that COVID-19 (SARS-CoV-2) is likely and diagnostic tests for other causes of illness are negative. Re-testing should be considered in cases of suspected false negatives. The limit of detection for this assay is 800 copies/mL. This SARS CoV-2 test is a real-time RT-PCR test intended for the qualitative detection of nucleic acid from SARS-CoV-2 in a nasopharyngeal swab specimen collected from individuals suspected of COVID-19 by their healthcare provider. This test has not been Food and Drug Administration (FDA) cleared or approved. This is a modified version of an approved Emergency Use Authorization (EUA) and is in the process of review by the FDA. Once authorized by the FDA, the issued EUA will be effective until the declaration that circumstances exist justifying the authorization of the emergency use of in vitro diagnostic tests for detection and/or diagnosis of COVID-19 is terminated under Section 564(b)(2) of the Act or the EUA is revoked under Section 564(g) of the Act. Fact Sheet for Healthcare Providers:https://www.[employer]IS.[place]/sites/default/f real/product/documents/F act_Sheet_HC_Providers_L vwn_VGIB-WuP-9.pdf Fact Sheet for Healthcare Patients:https://www.[employer] del.[place]/sites/default/fi les/product/documents/Fa ct_Sheet_Patients_Lyra_S ARS-CoV-2.pdf Performing Laboratory:[facility] [place] [address] [facility])2022-03-09 14:39:13 Test Item Value Reference Range Interpretation Comments SARS-COV2/RT-PCR (test Negative Not Detected, Negative, code = 4552667) See external report for linked test SARS-COV-[address] [facility] TONY (test code = 6829367) Negative result for this test determines that SARS-CoV-2 RNA was not present in the specimen above the Limit of Detection (LOD). However, Negative results do not preclude SARS-CoV-2 infection and should not be used as the sole basis for treatment or patient management decisions. Negative results mustbe combined with clinical observations, patient history, and epidemiological information. A false negative result may occur if a specimen is improperly collected, transported or handled. A false negative result should be considered if patient's recent exposures or clinical presentation indicate that COVID-19 (SARS-CoV-2) is likely and diagnostic tests for other causes of illness are negative. Re-testing should be considered in cases of suspected false negatives.The limit of detection for this assay is 800 copies/mL.This SARS CoV-2 test is a real-time RT-PCR test intended for the qualitative detection of nucleic acid from SARS-CoV-2 in a nasopharyngeal swab specimen collected from individuals suspected of COVID-19 by their healthcare provider.This test has not been Food and Drug Administration (FDA) cleared or approved. This is a modified version of an approved Emergency Use Authorization (EUA) and is in the process of review by the FDA. Once authorized by the FDA, the issued EUA will be effective until the declaration that circumstances exist justifying the authorization of the emergency use of in vitro diagnostic tests for detection and/or diagnosis of COVID-19 is terminated under Section 564(b)(2) of the Act or the EUA is revoked under Section 564(g) of the Act.Fact Sheet for Healthcare Pro viders:https://www.[employer].[place]/sites/default/files/product/documents/Fact_Sheet_H F_Ymacuwdgy_Juna_NTIE-EkY-2.pdfFact Sheet for Healthcare Patients:https://www.[employer].[place]/sites/default/files/product/docum ents/Joou_Hclbn_Xstjewwj_Lmob_EBPK-GiW-8.pdfPerforming Laboratory:[facility], [place] [id number] METER 2022-03-09 11:19:10 Test Item Value Reference Range Interpretation Comments POC-GLUCOSE METER 91 mg/dL 70-110 : TESTED A T [facility] 6720 (BEAKER) (test code = JOSE R Drummond [facility], 1538) [address]: Oil Fire Specialist/Techni shantelle ID = [id number] for Berny Marinelli POCT-GLUCOSE [id number] 07:44:02 Test Item Value Reference Range Interpretation Comments POC-GLUCOSE METER 89 mg/dL 70-110 : TESTED A T [facility] 6720 (BEAKER) (test code = JOSE R Drummond [facility], 1538) [address]: Oil Fire Specialist/Techni shantelle ID = [id number] for Berny Marinelli RAD, CHEST, 1 VIEW, NON [id number] 07:35:00Reason for exam:- >intubatedShould this be performed at the bedside?->Yes [facility] 1985 Sex: FFINAL REPORT INDICATION: intubated COMPARISON: 03/08/2022 TECHNIQUE: Single frontalview of the chest. FINDINGS: Lines, tubes, and devices: None.Lungs and pleura: Scattered linear atelectasis is present. No effusion.Heart and mediastinum: Normal heart size. Unremarkable mediastinal contours.Osseous structures: No acute abnormality. Moderate rightward convexity of the thoracic spine.Other: The patient is rotated to the right IMPRESSION: No acute intrathoracic abnormality. Signed: Nely Radfordeport Verified Date/Time: 03/09/2022 07:35:34 [facility] RadiologyReading [facility] REHENSIVE METABOLIC [id number] 06:24:34 Test Item Value Reference Range Interpretation Comments TOTAL PROTEIN 5.0 gm/dL 6.0-8.3 L (BEAKER) (test code = 770) ALBUMIN (BEAKER) 2.2 g/dL 3.5-5.0 L (test code = 1145) ALKALINE 104 U/L 40-150 PHOSPHATASE (BEAKER) (test code = 346) BILIRUBIN TOTAL 7.4 mg/dL 0.2-1.2 H (BEAKER) (test code = 377) SODIUM (BEAKER) 138 meq/L 136-145 (test code = 381) POTASSIUM (BEAKER) 3.6 meq/L 3.5-5.1 (test code = 379) CHLORIDE (BEAKER) 108 meq/L 98-107 H (test code = 382) CO2 (BEAKER) (test 25 meq/L 22-29 code = 355) BLOOD UREA 12 mg/dL 7-21 NITROGEN (BEAKER) (test code = 354) CREATININE 0.37 mg/dL 0.57-1.25 L (BEAKER) (test code = 358) GLUCOSE RANDOM 87 mg/dL 70-105 (BEAKER) (test code = 652) CALCIUM (BEAKER) 7.9 mg/dL 8.4-10.2 L (test code = 697) AST (SGOT) 94 U/L 5-34 H (BEAKER) (test code = 353) ALT (SGPT) 74 U/L 6-55 H (BEAKER) (test code = 347) EGFR (BEAKER) 135 Interpretatio n of eGFR (test code = 1092) mL/min/1.[address] age Description sq m Result G1 Maddie l or high >=90 G2 Mildly decreased 60-89 G3a Mildl y to moderately 45-5 9 G3b Moderately to s everely 30-44 G4 Severl y decreased 15-29 G5 Kidney failure <15Reported eGF R is based on the CKD-EPI 2020 equation that d oes not use a race coefficientEsti mated GFR is not as accur ate as Creatinine Ana corrales in predicting glom erular filtration rate . Estimated GFR is not appl icable for dialysis patien ts Oil Fire Specialist ID - DREAD MSpecimen moderately [id number] 06:19:17 Test Item Value Reference Range Interpretation Comments MAGNESIUM (BEAKER) (test code = 1.6 mg/dL 1.6-2.6 627) Oil Fire Specialist ID - DREAD [id number] 06:19:17 Test Item Value Reference Range Interpretation Comments PHOSPHORUS (BEAKER) (test code = 2.9 mg/dL 2.3-4.7 604) Oil Fire Specialist ID - DREAD [id number] 05:59:03 Test Item Value Reference Range Interpretation Comments FIBRINOGEN LEVEL (BEAKER) (test 142 mg/dl 225-434 L code = 658) PROTHROMBIN [id number] 05:53:35 Test Item Value Reference Range Interpretation Comments PROTIME (BEAKER) 21.4 seconds 11.9-14.2 H (test code = 759) INR (BEAKER) (test 1.99 See_Comment [Automat ed message] code = 370) The system [employer] generated this result transmitted ref erence range: <=5.90. The reference range was not used to int erpret this result as normal/abnormal . RECOMMENDED COUMADIN/WARFARIN INR THERAPY RANGESSTANDARD DOSE: 2.0 - 3.0 Includes: PROPHYLAXIS for venous thrombosis, systemic embolization; TREATMENT for venous thrombosis and/or pulmonary embolus.HIGH RISK: Target INR is 2.5-3.5 for patients with mechanical heart valves.CALCIUM, [id number] 05:37:21 Test Item Value Reference Range Interpretation Comments CALCIUM IONIZED (BEAKER) (test 1.10 mmol/L 1.12-1.27 L code = 698) PH, BLOOD (BEAKER) (test code = 7.53 0200) CBC (HEMOGRAM ONLY)2022-03-09 05:35:11 Test Item Value Reference Range Interpretation Comments WHITE BLOOD CELL COUNT (BEAKER) 11.3 K/ L 3.5-10.5 H (test code = 775) RED BLOOD CELL COUNT (BEAKER) 2.63 M/ L 3.93-5.22 L (test code = 761) HEMOGLOBIN (BEAKER) (test code = 8.7 GM/DL 11.2-15.7 L 410) HEMATOCRIT (BEAKER) (test code = 27.6 % 34.1-44.9 L 411) MEAN CORPUSCULAR VOLUME (BEAKER) 104.9 fL 79.4-94.8 H (test code = 753) MEAN CORPUSCULAR HEMOGLOBIN 33.1 pg 25.6-32.2 H (BEAKER) (test code = 751) MEAN CORPUSCULAR HEMOGLOBIN CONC 31.5 GM/DL 32.2-35.5 L (BEAKER) (test code = 752) RED CELL DISTRIBUTION WIDTH 25.1 % 11.7-14.4 H (BEAKER) (test code = 412) PLATELET COUNT (BEAKER) (test 102 K/CU MM 150-450 L code = 756) MEAN PLATELET VOLUME (BEAKER) 11.7 fL 9.4-12.3 (test code = 754) NUCLEATED RED BLOOD CELLS 0 /100 WBC 0-0 (BEAKER) (test code = 413) LACTIC ACID, [id number] 05:29:58 Test Item Value Reference Range Interpretation Comments LACTATE BLOOD ARTERIAL (2) 0.9 mmol/L 0.5-2.2 (BEAKER) (test code = 2874) Oil Fire Specialist ID - DREAD MSpecimen moderately ictericPOCT-GLUCOSE [id number] 21:19:06 Test Item Value Reference Range Interpretation Comments POC-GLUCOSE METER 105 mg/dL 70-110 : TESTED A T [facility] 6720 (BEAKER) (test code = [facility] Drummond [facility], 1538) 65[address]: Oil Fire Specialist/Techni shantelle ID = [id number] for SA BESSJEANMARIE POCT-GLUCOSE [id number] 17:21:03 Test Item Value Reference Range Interpretation Comments POC-GLUCOSE METER 131 mg/dL 70-110 H : TESTED A T [facility] 6720 (BEAKER) (test code [facility], = 1538) [address]86: Oil Fire Specialist/Techni shantelle ID = [id number] for MAXIME VÁSQUEZ CMV PCR, [id number] 16:19:26 Test Item Value Reference Range Interpretation Comments CMV VIRAL LOAD - Negative or below See_Comment [Auto mated message] NEGATIVE (HENRY) the linear range The sy stem which (test code = of the assay generated this 2558) (<300 IU/mL) result transmit afshin reference range : <300 - >3,00 0,000 IU/mL. The refe rence range was not u sed to interpret th is result as normal/abnormal . Cytomegalovirus (CMV) infection can cause significant disease in immunosuppressed patients. However,it is common for CMV to manifest as a limited infection which is of no clinical significance in immunosuppressed patients or in healthy individuals.Viral load measurements are helpful to identify clinical CMV infection and to guide the pre-emptive management of antiviral therapy. For treatment of CMV infection due to reactivation in transplant recipients, a threshold between 4,000 and 5,000 copies/mLis suggested. For treatment of primary CMV infection, a lower threshold can be used.CMV infection may also be monitored using weekly serial measurements. Serial measurements of CMV DNA viral load can be evaluated by identifying a 10-fold change, as well as assessing the CMV DNA viral load and the clinical context for each patient.The plasma CMV DNA viral load was detected using quantitative polymerase chain reaction and fluorescent monitoring of a specific hybridized probe. Genetic variation and other factors can affect the accuracy of nucleic acid testing. Therefore, the results should be interpreted in light of clinical data. A negative result may not exclude the presence of CMV disease.This test was developed and its performance characteristics determined by the [facility] Pathol ogy Department, Section of Molecular Pathology. It has not been cleared or approved by the U.S. Foodand Drug Administration (FDA), since FDA approval is not required for clinical use of the test. Validation was done as required by The Clinical Laboratory Improvement Amendments of 1988.MISCELLANEOUS LAB ORDER 2022-03-08 12:38:08 Test Item Value Reference Range Interpretation Comments SCAN RESULT (test code = See scanned report [id number]) See scanned reportPOCT-GLUCOSE [id number] 11:09:15 Test Item Value Reference Range Interpretation Comments POC-GLUCOSE METER 114 mg/dL 70-110 H : TESTED A T [facility] 6720 (HENRY) (test code = JOSE R PAGE [place], 1538) [address]: Oil Fire Specialist/Techni shantelle ID = [id number] for Cait Yeh Bacterial culture + gram [id number] 11:06:52 Test Item Value Reference Range Interpretation Comments Result (test code = 6463-4) See comment Gram Stain Result (test No organisms seen code = 1123) SONIA (test code = SONIA) 4+ Yeast [facility] + [facility]AM [id number] 11:06:52 Test Item Value Reference Range Interpretation Comments CULTURE (BEAKER) (test code See comment = 1095) GRAM STAIN RESULT (BEAKER) <1+ WBCs (test code = 1123) GRAM STAIN RESULT (BEAKER) No organisms seen (test code = 445873) 4+ [id number] 10:31:58 Test Item Value Reference Range Interpretation Comments POTASSIUM (BEAKER) (test code = 3.7 meq/L 3.5-5.1 379) Oil Fire Specialist ID - CHRISTIANO [id number] 08:23:51 Test Item Value Reference Range Interpretation Comments PHOSPHORUS (BEAKER) (test code = 2.2 mg/dL 2.3-4.7 L 604) Oil Fire Specialist ID - GEOVANNA LPOCT-GLUCOSE [id number] 07:40:14 Test Item Value Reference Range Interpretation Comments POC-GLUCOSE METER 93 mg/dL 70-110 : [facility] (BEAKER[facility] (test code = JOSE R Drummond [facility], 1538) [address]: Oil Fire Specialist/Techni shantelle ID = [id number] for Melina Lombardi RAD, CHEST, 1 VIEW, NON [id number] 07:34:00Reason for exam:- >intubatedShould this be performed at the bedside?->Yes [facility] : 1985 Sex: FFINAL REPORT RAD, CHEST, 1 VIEW, NON DEPT INDICATION: intubated COMPARISON: Prior day's exam TECHNIQUE: Portable frontal view of the chest. FINDINGS: Support Lines and Devices: Stable. Lungs and pleura: Blunting of the left costophrenic sulcus, which may represent pleural thickening/scarring or small pleural effusion. Decreased left retrocardiac opacity. No pneumothorax identified. Heart and mediastinum: Stable contours. Stable surgical changes. Additional findings: Moderate rightward convexity of the thoracic spine. IMPRESSION: 1.Blunting of the left costophrenic sulcus, which may represent pleural thickening/scarring or small pleural effusion.2.Left retrocardiac opacity, decreased compared to prior exam, representing singly or in combination airspace disease, atelectasis, or pleural effusion. Signed: Nely Radford [facility] Verified Date/Time: 03/08/2022 07:34:29 Reading Location: [facility] Radiology Reading Room POCT-GLUCOSE [id number] 07:08:26 Test Item Value Reference Range Interpretation Comments POC-GLUCOSE METER 90 mg/dL 70-110 : TESTED A T [facility] 6720 ([facility]) (test code = JOSE R Bhanu [facility], 1538) 119[address]: Oil Fire Specialist/Techni shantelle ID = [id number] for Lorna Hogue HEPATITIS A ANTIBODY, [id number] 05:31:54 Test Item Value Reference Range Interpretation Comments HEPATITIS A IGG ANTIBODY (AKER) Reactive Nonreactive A (test code = 2797) Oil Fire Specialist ID - GEOVANNA [id number] 05:06:50 Test Item Value Reference Range Interpretation Comments FIBRINOGEN LEVEL (BEAKER) (test 139 mg/dl 225-434 L code = 658) [id number] 05:01:34 Test Item Value Reference Range Interpretation Comments PHOSPHORUS (BEAKER) (test code = 0.8 mg/dL 2.3-4.7 LL 604) Oil Fire Specialist ID - GEOVANNA [id number] 04:50:41 Test Item Value Reference Range Interpretation Comments MAGNESIUM (BEAKER) (test code = 1.9 mg/dL 1.6-2.6 627) Oil Fire Specialist ID Kt [place] LCOMPREHENSIVE METABOLIC [id number] 04:50:41 Test Item Value Reference Range Interpretation Comments TOTAL PROTEIN 5.2 gm/dL 6.0-8.3 L (BEAKER) (test code = 770) ALBUMIN (BEAKER) 2.2 g/dL 3.5-5.0 L (test code = 1145) ALKALINE 112 U/L 40-150 PHOSPHATASE (BEAKER) (test code = 346) BILIRUBIN TOTAL 7.5 mg/dL 0.2-1.2 H (BEAKER) (test code = 377) SODIUM (BEAKER) 136 meq/L 136-145 (test code = 381) POTASSIUM (BEAKER) 3.6 meq/L 3.5-5.1 (test code = 379) CHLORIDE (BEAKER) 106 meq/L 98-107 (test code = 382) CO2 (BEAKER) (test 24 meq/L 22-29 code = 355) BLOOD UREA 15 mg/dL 7-21 NITROGEN (BEAKER) (test code = 354) CREATININE 0.40 mg/dL 0.57-1.25 L (BEAKER) (test code = 358) GLUCOSE RANDOM 95 mg/dL 70-105 (BEAKER) (test code = 652) CALCIUM (BEAKER) 8.3 mg/dL 8.4-10.2 L (test code = 697) AST (SGOT) 91 U/L 5-34 H (BEAKER) (test code = 353) ALT (SGPT) 64 U/L 6-55 H (BEAKER) (test code = 347) EGFR (BEAKER) 132 Interpretatio n of eGFR (test code = 1092) mL/min/1.[address] age Description sq m Result G1 Maddie l or high >=90 G2 Mildly decreased 60-89 G3a Mildl y to moderately 45-5 9 G3b Moderately to s everely 30-44 G4 Severl y decreased 15-29 G5 Kidney failure <15Reported eGF R is based on the CKD-EPI 2020 equation that d oes not use a race coefficientEsti mated GFR is not as accur ate as Creatinine Ana antoni in predicting glom erular filtration rate . Estimated GFR is not appl icable for dialysis patien ts Oil Fire Specialist ID - PIAYA RENNYpecimen moderately ictericOXYGEN SATURATION, MEASURED 2022-03-08 04:47:02 Test Item Value Reference Range Interpretation Comments O2 SATURATION (MEASURED) (BEAKER) 91.0 % (test code = 1455) PROTHROMBIN [id number] 04:45:16 Test Item Value Reference Range Interpretation Comments PROTIME (BEAKER) 27.2 seconds 11.9-14.2 H (test code = 759) INR (BEAKER) (test 2.72 See_Comment [Automat ed message] code = 370) The system [employer] generated this result transmitted ref erence range: <=5.90. The reference range was not used to int erpret this result as normal/abnormal . RECOMMENDED COUMADIN/WARFARIN INR THERAPY RANGESSTANDARD DOSE: 2.0 - 3.0 Includes: PROPHYLAXIS for venous thrombosis, systemic embolization; TREATMENT for venous thrombosis and/or pulmonary embolus.HIGH RISK: Target INR is 2.5-3.5 for patients with mechanical heart valves.CBC (HEMOGRAM ONLY)2022-03-08 04:37:05 Test Item Value Reference Range Interpretation Comments WHITE BLOOD CELL COUNT (BEAKER) 12.7 K/ L 3.5-10.5 H (test code = 775) RED BLOOD CELL COUNT (BEAKER) 2.69 M/ L 3.93-5.22 L (test code = 761) HEMOGLOBIN (BEAKER) (test code = 8.8 GM/DL 11.2-15.7 L 410) HEMATOCRIT (BEAKER) (test code = 27.5 % 34.1-44.9 L 411) MEAN CORPUSCULAR VOLUME (BEAKER) 102.2 fL 79.4-94.8 H (test code = 753) MEAN CORPUSCULAR HEMOGLOBIN 32.7 pg 25.6-32.2 H (BEAKER) (test code = 751) MEAN CORPUSCULAR HEMOGLOBIN CONC 32.0 GM/DL 32.2-35.5 L (BEAKER) (test code = 752) RED CELL DISTRIBUTION WIDTH 24.6 % 11.7-14.4 H (BEAKER) (test code = 412) PLATELET COUNT (BEAKER) (test 107 K/CU MM 150-450 L code = 756) MEAN PLATELET VOLUME (BEAKER) 12.1 fL 9.4-12.3 (test code = 754) NUCLEATED RED BLOOD CELLS 0 /100 WBC 0-0 (BEAKER) (test code = 413) LACTIC ACID, [id number] 04:36:49 Test Item Value Reference Range Interpretation Comments LACTATE BLOOD ARTERIAL (2) 1.4 mmol/L 0.5-2.2 (BEAKER) (test code = 2874) Oil Fire Specialist ID - PIAYA RENNYpecimealyson moderately ictericBlood gas, [id number] 04:36:04 Test Item Value Reference Range Interpretation Comments pH, Arterial (test code 7.57 7.35-7.45 H = 2744-1) pCO2, Arterial (test 32 See_Comment L [Autom ated message] code = 2019-8) The system [facility] generated this result transmit afshin reference range : 35 - 45 mm Hg. The reference range was not used to interpret this result as normal/abnormal . pO2, Arterial (test 95 See_Comment H [Automa afshin message] code = 2703-7) The system [facility] generated this result transmit afshin reference range : 80 - 90 mm Hg. The reference range was not used to interpret this result as normal/abnormal . O2 Sat, Arterial (test 98.1 % 96.0-97.0 H code = 2708-6) HCO3, Arterial (test 29 mmol/L 21-29 code = 1960-4) Base Excess, Arterial 6.4 mmol/L -2.0-3.0 H (test code = 1925-7) Patient Temperature 37.0 (test code = 8310-5) FIO2 (test code = 1819) 21 Lab Interpretation Abnormal (test code = 80252-6) [facility], [id number] 04:36:04 Test Item Value Reference Range Interpretation Comments PH ARTERIAL (BEAKER) (test code = 7.57 7.35-7.45 H 383) PCO2 ARTERIAL (BEAKER) (test code 32 mm Hg 35-45 L = 384) PO2 ARTERIAL (BEAKER) (test code = 95 mm Hg 80-90 H 385) O2 SATURATION ARTERIAL (BEAKER) 98.1 % 96.0-97.0 H (test code = 386) HCO3 ARTERIAL (BEAKER) (test code 29 mmol/L 21-29 = 388) BASE EXCESS ARTERIAL (BEAKER) 6.4 mmol/L -2.0-3.0 H (test code = 387) PATIENT TEMPERATURE (BEAKER) (test 37.0 code = 1818) FIO2 (BEAKER) (test code = 1819) 21.0 CALCIUM, [id number] 04:35:09 Test Item Value Reference Range Interpretation Comments CALCIUM IONIZED (BEAKER) (test 1.14 mmol/L 1.12-1.27 code = 698) PH, BLOOD (BEAKER) (test code = 7.57 1810) BLOOD [id number] 04:00:34 Test Item Value Reference Range Interpretation Comments CULTURE (BEAKER) (test No growth in 5 days code = 1095) BLOOD [id number] 04:00:34 Test Item Value Reference Range Interpretation Comments CULTURE (BEAKER) (test No growth in 5 days code = 1095) The specimen volume collected for this blood culture was below the optimum (10 mL per bottle or 20 mL total). Use of lower volumes may adversely affect recovery and/or detection times of some organisms.[id number] 22:55:23 Test Item Value Reference Range Interpretation Comments POTASSIUM (BEAKER) (test code = 3.5 meq/L 3.5-5.1 379) Oil Fire Specialist ID - BSPOCT-GLUCOSE [id number] 22:35:33 Test Item Value Reference Range Interpretation Comments POC-GLUCOSE METER 147 mg/dL 70-110 H : TESTED A T [facility] 6720 (BEAKER) (test code = JOSE R Drummond [facility], 1538) [address]: Oil Fire Specialist/Techni shantelle ID = [id number] for As Lorna medina PERIPHERAL BLOOD SMEAR - PATHOLOGIST [id number] 19:05:26 Test Item Value Reference Interpretation Comments Range RBC MORPHOLOGY See comment Hypochromic, macrocytic (BEAKER) (test anemia with m oderate code = 5696) anisopoikilocyt osis with abundant target cells, occasional cari ptocytes, occasional sphe rocytes, rare to occasio nal acanthocyte/ech inocytes and rare dacroc ytes. Rare schistocyt es present. Increa sed polychromasia. WBC MORPHOLOGY See comment Normal in num ayden. (BEAKER) (test Predominately comprised code = 2847) by granulocytes with unremarkable mo rphology. Lymphocytes wit h occasional reac tive and rare atypical f orms. PLT MORPHOLOGY No Clumping (BEAKER) (test code = 2848) PLT MORPHOLOGY No Satellitosis (BEAKER) (test code = 742358) PLT MORPHOLOGY See comment Decreased wit h normal (BEAKER) (test granular morp hology. code = 976469) Occasional la rge forms. [facility] Lebron Joel MD T-6112 (BEAKER) (electronic (test code = signature) 2847) [id number] 18:29:48 Test Item Value Reference Range Interpretation Comments MAGNESIUM (BEAKER) (test code = 2.0 mg/dL 1.6-2.6 627) Oil Fire Specialist ID - [id number] 18:29:48 Test Item Value Reference Range Interpretation Comments POTASSIUM (BEAKER) (test code = 2.9 meq/L 3.5-5.1 L 379) Oil Fire Specialist ID - BSPOCT-GLUCOSE [id number] 16:24:12 Test Item Value Reference Range Interpretation Comments POC-GLUCOSE METER 255 mg/dL 70-110 H : [facility] (BEAKER) (test code = JOSE R [place], 1538) [address]: Oil Fire Specialist/Techni shantelle ID = [id number] for Sa alberto (contract), Tania draper Drug screen, urine, [id number] 11:05:31 Test Item Value Reference Range Interpretation Comments Scan Result (test code = See scanned report [id number]) SONIA (test code = SONIA) See scanned report [facility] [id number] 11:05:31 Test Item Value Reference Range Interpretation Comments SCAN RESULT (test code = See scanned report [id number]) See scanned reportSPIN/CONCENTRATION [id number] 10:21:14 Test Item Value Reference Range Interpretation Comments Concentration charged (test code = Done 8591) [facility] [id number] 10:21:14 Test Item Value Reference Range Interpretation Comments CONCENTRATION CHARGED (BEAKER) (test Done code = 2657) POCT-GLUCOSE [id number] 09:57:37 Test Item Value Reference Range Interpretation Comments POC-GLUCOSE METER 203 mg/dL 70-110 H : TESTED A T [facility] 6720 (BEAKER) (test code = JOSE R Drummond [place], 1538) [address]: Oil Fire Specialist/Techni shantelle ID = [id number] for Sa alberto (contract), Tania draper CALCIUM, [id number] 06:27:45 Test Item Value Reference Range Interpretation Comments CALCIUM IONIZED (BEAKER) (test 1.12 mmol/L 1.12-1.27 code = 698) PH, BLOOD (BEAKER) (test code = 7.55 1810) BLOOD GAS, [id number] 06:26:46 Test Item Value Reference Range Interpretation Comments PH ARTERIAL (BEAKER) (test code = 7.55 7.35-7.45 H 383) PCO2 ARTERIAL (BEAKER) (test code 32 mm Hg 35-45 L = 384) PO2 ARTERIAL (BEAKER) (test code = 130 mm Hg 80-90 H 385) O2 SATURATION ARTERIAL (BEAKER) 99.0 % 96.0-97.0 H (test code = 386) HCO3 ARTERIAL (BEAKER) (test code 27 mmol/L 21-29 = 388) BASE EXCESS ARTERIAL (BEAKER) 5.0 mmol/L -2.0-3.0 H (test code = 387) PATIENT TEMPERATURE (BEAKER) (test 37.0 code = 1818) FIO2 (BEAKER) (test code = 1819) 40.0 COMPREHENSIVE METABOLIC [id number] 05:21:14 Test Item Value Reference Range Interpretation Comments TOTAL PROTEIN 5.0 gm/dL 6.0-8.3 L (BEAKER) (test code = 770) ALBUMIN (BEAKER) 2.2 g/dL 3.5-5.0 L (test code = 1145) ALKALINE 98 U/L 40-150 PHOSPHATASE (BEAKER) (test code = 346) BILIRUBIN TOTAL 7.5 mg/dL 0.2-1.2 H (BEAKER) (test code = 377) SODIUM (BEAKER) 142 meq/L 136-145 (test code = 381) POTASSIUM (BEAKER) 3.0 meq/L 3.5-5.1 L (test code = 379) CHLORIDE (BEAKER) 111 meq/L 98-107 H (test code = 382) CO2 (BEAKER) (test 25 meq/L 22-29 code = 355) BLOOD UREA 18 mg/dL 7-21 NITROGEN (BEAKER) (test code = 354) CREATININE 0.42 mg/dL 0.57-1.25 L (BEAKER) (test code = 358) GLUCOSE RANDOM 243 mg/dL 70-105 H (BEAKER) (test code = 652) CALCIUM (BEAKER) 7.9 mg/dL 8.4-10.2 L (test code = 697) AST (SGOT) 65 U/L 5-34 H (BEAKER) (test code = 353) ALT (SGPT) 41 U/L 6-55 (BEAKER) (test code = 347) EGFR (BEAKER) 131 Interpretatio n of eGFR (test code = 1092) mL/min/1.[address] age Description sq m Result G1 Maddie l or high >=90 G2 Mildly decreased 60-89 G3a Mildl y to moderately 45-5 9 G3b Moderately to s everely 30-44 G4 Severl y decreased 15-29 G5 Kidney failure <15Reported eGF R is based on the CKD-EPI 2020 equation that d oes not use a race coefficientEsti mated GFR is not as accur ate as Creatinine Ana corrales in predicting glom erular filtration rate . Estimated GFR is not appl icable for dialysis patien ts Oil Fire Specialist ID - PIAYA LSpecimen moderately ictericRAD, CHEST, 1 VIEW, NON DEPT 2022-03-07 04:31:00Reason for exam:->intubatedShould this be performed at the bedside?->YesKEVIN [facility] : 1985 Sex: FFINAL REPORT CLINICAL INDICATION: intubated Comparison: 03/06/2022 The cardiomediastinal contours are stable. The patient has been extubated. There has been near complete resolution ofthe previously seen right upper lobe opacities. Worsening retrocardiac opacity in the left lung may reflect atelectasis. Pneumonitis should be excluded clinically. A small left pleural effusion is suspected. There is no pneumothorax. Remaining support lines are stable. Signed: Jagdeep Salguero MDReport Verified Date/Time: 03/07/2022 04:31:34 [id number] 04:29:31 Test Item Value Reference Range Interpretation Comments MAGNESIUM (BEAKER) (test code = 2.0 mg/dL 1.6-2.6 627) Oil Fire Specialist ID - PIAYA [id number] 04:29:31 Test Item Value Reference Range Interpretation Comments PHOSPHORUS (BEAKER) (test code = 1.8 mg/dL 2.3-4.7 L 604) Oil Fire Specialist ID - PIAYA LCBC (HEMOGRAM ONLY)2022-03-07 04:28:18 Test Item Value Reference Range Interpretation Comments WHITE BLOOD CELL COUNT (BEAKER) 8.5 K/ L 3.5-10.5 (test code = 775) RED BLOOD CELL COUNT (BEAKER) 2.49 M/ L 3.93-5.22 L (test code = 761) HEMOGLOBIN (BEAKER) (test code = 8.1 GM/DL 11.2-15.7 L 410) HEMATOCRIT (BEAKER) (test code = 24.9 % 34.1-44.9 L 411) MEAN CORPUSCULAR VOLUME (BEAKER) 100.0 fL 79.4-94.8 H (test code = 753) MEAN CORPUSCULAR HEMOGLOBIN 32.5 pg 25.6-32.2 H (BEAKER) (test code = 751) MEAN CORPUSCULAR HEMOGLOBIN CONC 32.5 GM/DL 32.2-35.5 (BEAKER) (test code = 752) RED CELL DISTRIBUTION WIDTH 25.1 % 11.7-14.4 H (BEAKER) (test code = 412) PLATELET COUNT (BEAKER) (test code 95 K/CU MM 150-450 L = 756) MEAN PLATELET VOLUME (BEAKER) 11.8 fL 9.4-12.3 (test code = 754) NUCLEATED RED BLOOD CELLS (BEAKER) 0 /100 WBC 0-0 (test code = 413) LACTIC ACID, [id number] 04:18:05 Test Item Value Reference Range Interpretation Comments LACTATE BLOOD ARTERIAL (2) 1.4 mmol/L 0.5-2.2 (BEAKER) (test code = 2874) Oil Fire Specialist ID - GEOVANNA LSpecimen moderately [id number] 04:15:06 Test Item Value Reference Range Interpretation Comments FIBRINOGEN LEVEL (BEAKER) (test 147 mg/dl 225-434 L code = 658) PROTHROMBIN [id number] 04:10:01 Test Item Value Reference Range Interpretation Comments PROTIME (BEAKER) 23.5 seconds 11.9-14.2 H (test code = 759) INR (BEAKER) (test 2.16 See_Comment [Automat ed message] code = 370) The system Cvgram[employer]me generated this result transmitted ref erence range: <=5.90. The reference range was not used to int erpret this result as normal/abnormal . RECOMMENDED COUMADIN/WARFARIN INR THERAPY RANGESSTANDARD DOSE: 2.0 - 3.0 Includes: PROPHYLAXIS for venous thrombosis, systemic embolization; TREATMENT for venous thrombosis and/or pulmonary embolus.HIGH RISK: Target INR is 2.5-3.5 for patients with mechanical heart valves.VANCOMYCIN LEVEL, [id number] 00:47:14 Test Item Value Reference Range Interpretation Comments VANCOMYCIN TROUGH (BEAKER) (test 10.6 ug/mL 10.0-20.0 code = 522) Oil Fire Specialist ID - NAVIDCT-GLUCOSE [id number] 16:41:51 Test Item Value Reference Range Interpretation Comments POC-GLUCOSE METER 154 mg/dL 70-110 H : [facility] (BEAKER) (test code = NATALIEMAGDALENA PAGE [place], 1538) [address]: Oil Fire Specialist/Techni shantelle ID = [id number] for Mando gibson (contract)Kelly POCT-GLUCOSE [id number] 12:35:45 Test Item Value Reference Range Interpretation Comments POC-GLUCOSE METER 174 mg/dL 70-110 H : TESTED Daniela T [facility] 6720 (BEAKER) (test code = JOSE R PAGE [place], 1538) [address]: Oil Fire Specialist/Techni shantelle ID = [id number] for BE CATARINA BEAUMAYRA BLOOD GAS, [id number] 12:30:55 Test Item Value Reference Range Interpretation Comments PH ARTERIAL (BEAKER) (test code = 7.52 7.35-7.45 H 383) PCO2 ARTERIAL (BEAKER) (test code 32 mm Hg 35-45 L = 384) PO2 ARTERIAL (BEAKER) (test code = 103 mm Hg 80-90 H 385) O2 SATURATION ARTERIAL (BEAKER) 98.0 % 96.0-97.0 H (test code = 386) HCO3 ARTERIAL (BEAKER) (test code 25 mmol/L 21-29 = 388) BASE EXCESS ARTERIAL (BEAKER) 2.8 mmol/L -2.0-3.0 (test code = 387) PATIENT TEMPERATURE (BEAKER) (test 38.5 code = 1818) FIO2 (BEAKER) (test code = 1819) 40.0 BRONCHIAL CULTURE + GRAM [id number] 08:46:49 Test Item Value Reference Range Interpretation Comments CULTURE (BEAKER) (test code See comment = 1095) GRAM STAIN RESULT (BEAKER) No WBCs (test code = 1123) GRAM STAIN RESULT (BEAKER) No organisms seen (test code = 10374) <1+ YeastBRONCHIAL CULTURE + GRAM [id number] 08:46:16 Test Item Value Reference Range Interpretation Comments CULTURE (BEAKER) (test code No growth = 1095) GRAM STAIN RESULT (BEAKER) <1+ WBCs (test code = 1123) GRAM STAIN RESULT (BEAKER) No organisms seen (test code = 44153) BLOOD GAS, [id number] 05:26:10 Test Item Value Reference Range Interpretation Comments PH ARTERIAL (BEAKER) (test code = 7.52 7.35-7.45 H 383) PCO2 ARTERIAL (BEAKER) (test code 33 mm Hg 35-45 L = 384) PO2 ARTERIAL (BEAKER) (test code = 182 mm Hg 80-90 H 385) O2 SATURATION ARTERIAL (BEAKER) 99.4 % 96.0-97.0 H (test code = 386) HCO3 ARTERIAL (BEAKER) (test code 27 mmol/L 21-29 = 388) BASE EXCESS ARTERIAL (BEAKER) 3.8 mmol/L -2.0-3.0 H (test code = 387) PATIENT TEMPERATURE (BEAKER) (test 37.0 code = 1818) FIO2 (BEAKER) (test code = 1819) 40.0 OXYGEN SATURATION, [id number] 05:22:52 Test Item Value Reference Range Interpretation Comments O2 SATURATION (MEASURED) (BEAKER) 88.7 % (test code = 1455) [id number] 05:17:50 Test Item Value Reference Range Interpretation Comments PHOSPHORUS (BEAKER) (test code = 1.4 mg/dL 2.3-4.7 LL 604) Oil Fire Specialist ID - PIAYA LCOMPREHENSIVE METABOLIC [id number] 05:11:10 Test Item Value Reference Range Interpretation Comments TOTAL PROTEIN 5.0 gm/dL 6.0-8.3 L (BEAKER) (test code = 770) ALBUMIN (BEAKER) 2.2 g/dL 3.5-5.0 L (test code = 1145) ALKALINE 112 U/L 40-150 PHOSPHATASE (BEAKER) (test code = 346) BILIRUBIN TOTAL 8.2 mg/dL 0.2-1.2 H (BEAKER) (test code = 377) SODIUM (BEAKER) 144 meq/L 136-145 (test code = 381) POTASSIUM (BEAKER) 3.2 meq/L 3.5-5.1 L (test code = 379) CHLORIDE (BEAKER) 114 meq/L 98-107 H (test code = 382) CO2 (BEAKER) (test 25 meq/L 22-29 code = 355) BLOOD UREA 20 mg/dL 7-21 NITROGEN (BEAKER) (test code = 354) CREATININE 0.48 mg/dL 0.57-1.25 L (BEAKER) (test code = 358) GLUCOSE RANDOM 305 mg/dL 70-105 H (BEAKER) (test code = 652) CALCIUM (BEAKER) 8.0 mg/dL 8.4-10.2 L (test code = 697) AST (SGOT) 57 U/L 5-34 H (BEAKER) (test code = 353) ALT (SGPT) 30 U/L 6-55 (BEAKER) (test code = 347) EGFR (BEAKER) 127 Interpretatio n of eGFR (test code = 1092) mL/min/1.[address] age Description sq m Result G1 Maddie l or high >=90 G2 Mildly decreased 60-89 G3a Mildl y to moderately 45-5 9 G3b Moderately to s everely 30-44 G4 Severl y decreased 15-29 G5 Kidney failure <15Reported eGF R is based on the CKD-EPI 2020 equation that d oes not use a race coefficientEsti mated GFR is not as accur ate as Creatinine Ana antoni in predicting glom erular filtration rate . Estimated GFR is not appl icable for dialysis patien ts Oil Fire Specialist ID - GEOVANNA LSpecimen moderately [id number] 05:11:09 Test Item Value Reference Range Interpretation Comments MAGNESIUM (BEAKER) (test code = 2.3 mg/dL 1.6-2.6 627) Oil Fire Specialist ID - GEOVANNA LCALCIUM, [id number] 04:51:39 Test Item Value Reference Range Interpretation Comments CALCIUM IONIZED (BEAKER) (test 1.13 mmol/L 1.12-1.27 code = 698) PH, BLOOD (BEAKER) (test code = 7.50 1810) [id number] 04:33:13 Test Item Value Reference Range Interpretation Comments FIBRINOGEN LEVEL (BEAKER) (test 161 mg/dl 225-434 L code = 658) PROTHROMBIN [id number] 04:32:15 Test Item Value Reference Range Interpretation Comments PROTIME (BEAKER) 21.8 seconds 11.9-14.2 H (test code = 759) INR (BEAKER) (test 2.04 See_Comment [Automat ed message] code = 370) The system [employer]vgram[employer] generated this result transmitted ref erence range: <=5.90. The reference range was not used to int erpret this result as normal/abnormal . RECOMMENDED COUMADIN/WARFARIN INR THERAPY RANGESSTANDARD DOSE: 2.0 - 3.0 Includes: PROPHYLAXIS for venous thrombosis, systemic embolization; TREATMENT for venous thrombosis and/or pulmonary embolus.HIGH RISK: Target INR is 2.5-3.5 for patients with mechanical heart valves.LACTIC ACID, [id number] 04:28:57 Test Item Value Reference Range Interpretation Comments LACTATE BLOOD ARTERIAL (2) 1.4 mmol/L 0.5-2.2 (BEAKER) (test code = 2874) Oil Fire Specialist ID - GEOVANNA LAWSONpecimealyson moderately ictericCBC (HEMOGRAM ONLY)2022-03-06 04:18:50 Test Item Value Reference Range Interpretation Comments WHITE BLOOD CELL COUNT (BEAKER) 5.4 K/ L 3.5-10.5 (test code = 775) RED BLOOD CELL COUNT (BEAKER) 2.35 M/ L 3.93-5.22 L (test code = 761) HEMOGLOBIN (BEAKER) (test code = 7.6 GM/DL 11.2-15.7 L 410) HEMATOCRIT (BEAKER) (test code = 24.0 % 34.1-44.9 L 411) MEAN CORPUSCULAR VOLUME (BEAKER) 102.1 fL 79.4-94.8 H (test code = 753) MEAN CORPUSCULAR HEMOGLOBIN 32.3 pg 25.6-32.2 H (BEAKER) (test code = 751) MEAN CORPUSCULAR HEMOGLOBIN CONC 31.7 GM/DL 32.2-35.5 L (BEAKER) (test code = 752) RED CELL DISTRIBUTION WIDTH 25.2 % 11.7-14.4 H (BEAKER) (test code = 412) PLATELET COUNT (BEAKER) (test code 70 K/CU MM 150-450 L = 756) MEAN PLATELET VOLUME (BEAKER) 11.6 fL 9.4-12.3 (test code = 754) NUCLEATED RED BLOOD CELLS (BEAKER) 1 /100 WBC 0-0 H (test code = 413) RAD, CHEST, 1 VIEW, NON [id number] 03:08:00Reason for exam:- >intubatedShould this be performed at the bedside?->Yes [facility] 1985 Sex: FFINAL REPORT CLINICAL INDICATION: intubated Comparison: 03/05/2022 The patient is rotated to the left. The cardiomediastinal contours are stable. There is persistent but improving opacity in the right upper lobe, possibly improving atelectasis or pneumonitis. Worsening opacities in the mid and lower lungs, left greater than right, may reflect atelectasis but pneumonitis should be excluded clinically. There is no pneumothorax. Support lines are stable. Signed: Jagdeep Salguero MDReport Verified Date/Time: 03/06/2022 03:08:02 POCT-GLUCOSE [id number] 01:21:32 Test Item Value Reference Range Interpretation Comments POC-GLUCOSE METER 283 mg/dL 70-110 H : TESTED A T [facility] 6720 (HENRY) (test code = JOSE R [place], 1538) [address]: Oil Fire Specialist/Techni shantelle ID = [id number] for Mohit Guerra MR, ABDOMEN, [id number] 21:25:00Unlisted Reason for Exam - Click Yes and Enter Reason Below->Yes Unlisted Reason for Exam->CIRRHOSIS/Pre liver transplant EvalLITTLE [facility] OF [facility]ITALName: [facility]O : 1985 Sex: FFINAL REPORT MRI ABDOMEN WITH AND WITHOUT CONTRAST HISTORY: Cirrhosis. Evaluation for tumor prior to transplant. COMPARISON: None. Technique: Multiplanar, multisequence MR imaging of the abdomen was performed before and following the administration of 10 mL Eovist. FINDINGS: There issomewhat heterogeneous enhancement of the liver. There is low T1 and T2 signal throughout the liver consistent with iron overload. There is portal hypertension causing ascites but no significant splenomegaly. Small esophageal varices. There is no biliary ductal dilation. Gallbladder filled with stonesand sludge and mild gallbladder wall edema. Normal enhancement of the spleen, adrenals, kidneys and pancreas. Mesenteric edema present. Mild edema within the bowel wall presumably related to portal hypertension. No pathologic-appearing lymph nodes. A small hiatal hernia is present. IMPRESSION: Cirrhotic liver with portal hypertension causing notably small-volume ascites, small varices and mesenteric edema. No visible hepatic lesions. Signed: Chritsopher Willard MDReport Verified Date/Time: 03/05/2022 21:25:37 POCT-GLUCOSE [id number] 20:09:52 Test Item Value Reference Range Interpretation Comments POC-GLUCOSE METER 228 mg/dL 70-110 H : TESTED A T [facility] 6720 (BEAKER) (test code = [facility]) [address]: Oil Fire Specialist/Techni shantelle ID = [id number] for Mohit Guerra POCT-GLUCOSE [id number] 18:30:46 Test Item Value Reference Range Interpretation Comments POC-GLUCOSE METER 246 mg/dL 70-110 H : TESTED A T [facility] 6720 (BEAKER) (test code = [facility], 153) [address]: Oil Fire Specialist/Techni shantelle ID = [id number] for MATTHEW KENDALL BLOOD GAS, [id number] 15:49:08 Test Item Value Reference Range Interpretation Comments PH ARTERIAL (BEAKER) (test code = 7.51 7.35-7.45 H 383) PCO2 ARTERIAL (BEAKER) (test code 35 mm Hg 35-45 = 384) PO2 ARTERIAL (BEAKER) (test code = 157 mm Hg 80-90 H 385) O2 SATURATION ARTERIAL (BEAKER) 99.2 % 96.0-97.0 H (test code = 386) HCO3 ARTERIAL (BEAKER) (test code 27 mmol/L 21-29 = 388) BASE EXCESS ARTERIAL (BEAKER) 3.4 mmol/L -2.0-3.0 H (test code = 387) PATIENT TEMPERATURE (BEAKER) (test 37.0 code = 1818) FIO2 (BEAKER) (test code = 1819) 50.0 BLOOD GAS, [id number] 14:54:46 Test Item Value Reference Range Interpretation Comments PH ARTERIAL (BEAKER) (test code = 7.51 7.35-7.45 H 383) PCO2 ARTERIAL (BEAKER) (test code 34 mm Hg 35-45 L = 384) PO2 ARTERIAL (BEAKER) (test code = 147 mm Hg 80-90 H 385) O2 SATURATION ARTERIAL (BEAKER) 99.1 % 96.0-97.0 H (test code = 386) HCO3 ARTERIAL (BEAKER) (test code 26 mmol/L 21-29 = 388) BASE EXCESS ARTERIAL (BEAKER) 3.2 mmol/L -2.0-3.0 H (test code = 387) PATIENT TEMPERATURE (BEAKER) (test 37.5 code = 1818) FIO2 (BEAKER) (test code = 1819) 60.0 POCT-GLUCOSE [id number] 12:55:41 Test Item Value Reference Range Interpretation Comments POC-GLUCOSE METER 206 mg/dL 70-110 H : TESTED A T [facility] 6720 (BEAKER) (test code = JOSE R [place], 1538) [address]: Oil Fire Specialist/Techni shantelle ID = [id number] for BE RNABE, MATTHEW RAD, CHEST, 1 VIEW, NON [id number] 12:38:00Reason for exam:->PNAShould this be performed at the bedside?->Yes [facility] : 1985 Sex: FFINAL REPORT TECHNIQUE: Frontal view of the chest. INDICATION: PNA. COMPARISON: 03/04/2022 and 03/03/2022. FINDINGS: LINES/TUBES: Right IJ central venous catheter, endotracheal tube andfeeding tube remain similarly positioned. HEART AND MEDIASTINUM: Cardiomediastinal contour is stable. LUNGS: Development of dense consolidation within portions of the right upper lobe. Otherwise improving airspace opacities within the left upper lobe and right midlung. No pulmonary edema. PLEURA: No pneumothorax. No significant pleural effusion. SOFT TISSUES AND BONES: Unremarkable. IMPRESSION:Interval development of dense consolidation and volume loss within the right upper lobe. Improving left upper lung and right midlung opacities compared to the prior examination. Lines and tubes remain unchanged. Signed: Julianna Starkey [facility] Hospitalort Verified Date/Time: 03/05/2022 12:38:59 [id number] 06:44:03 Test Item Value Reference Range Interpretation Comments PHOSPHORUS (BEAKER) (test code = 1.9 mg/dL 2.3-4.7 L 604) Oil Fire Specialist ID - DREAD MCOMPREHENSIVE METABOLIC [id number] 06:44:03 Test Item Value Reference Range Interpretation Comments TOTAL PROTEIN 5.5 gm/dL 6.0-8.3 L (BEAKER) (test code = 770) ALBUMIN (BEAKER) 2.5 g/dL 3.5-5.0 L (test code = 1145) ALKALINE 120 U/L 40-150 PHOSPHATASE (BEAKER) (test code = 346) BILIRUBIN TOTAL 12.1 mg/dL 0.2-1.2 H (BEAKER) (test code = 377) SODIUM (BEAKER) 139 meq/L 136-145 (test code = 381) POTASSIUM (BEAKER) 4.3 meq/L 3.5-5.1 (test code = 379) CHLORIDE (BEAKER) 109 meq/L 98-107 H (test code = 382) CO2 (BEAKER) (test 24 meq/L 22-29 code = 355) BLOOD UREA 14 mg/dL 7-21 NITROGEN (BEAKER) (test code = 354) CREATININE 0.43 mg/dL 0.57-1.25 L (BEAKER) (test code = 358) GLUCOSE RANDOM 154 mg/dL 70-105 H (BEAKER) (test code = 652) CALCIUM (BEAKER) 8.2 mg/dL 8.4-10.2 L (test code = 697) AST (SGOT) 77 U/L 5-34 H (BEAKER) (test code = 353) ALT (SGPT) 32 U/L 6-55 (BEAKER) (test code = 347) EGFR (BEAKER) 130 Interpretatio n of eGFR (test code = 1092) mL/min/1.[address] age Description sq m Result G1 Maddie l or high >=90 G2 Mildly decreased 60-89 G3a Mildl y to moderately 45-5 9 G3b Moderately to s everely 30-44 G4 Severl y decreased 15-29 G5 Kidney failure <15Reported eGF R is based on the CKD-EPI 2020 equation that d oes not use a race coefficientEsti mated GFR is not as accur ate as Creatinine Ana corrales in predicting glom erular filtration rate . Estimated GFR is not appl icable for dialysis patien ts Oil Fire Specialist ID - DREAD MSpecimen markedly [id number] 06:44:02 Test Item Value Reference Range Interpretation Comments MAGNESIUM (BEAKER) (test code = 2.4 mg/dL 1.6-2.6 627) Oil Fire Specialist ID - DREAD MLACTIC ACID, [id number] 06:23:30 Test Item Value Reference Range Interpretation Comments LACTATE BLOOD ARTERIAL (2) 1.1 mmol/L 0.5-2.2 (BEAKER) (test code = 2874) Oil Fire Specialist ID - DREAD MSpecimen markedly [id number] 06:20:31 Test Item Value Reference Range Interpretation Comments FIBRINOGEN LEVEL (BEAKER) (test 192 mg/dl 225-434 L code = 658) PROTHROMBIN TIME/[id number] 06:20:08 Test Item Value Reference Range Interpretation Comments PROTIME (BEAKER) 24.1 seconds 11.9-14.2 H (test code = 759) INR (BEAKER) (test 2.24 See_Comment [Automat ed message] code = 370) The system [employer] generated this result transmitted ref erence range: <=5.90. The reference range was not used to int erpret this result as normal/abnormal . RECOMMENDED COUMADIN/WARFARIN INR THERAPY RANGESSTANDARD DOSE: 2.0 - 3.0 Includes: PROPHYLAXIS for venous thrombosis, systemic embolization; TREATMENT for venous thrombosis and/or pulmonary embolus.HIGH RISK: Target INR is 2.5-3.5 for patients with mechanical heart valves.CBC (HEMOGRAM ONLY)2022-03-05 06:13:29 Test Item Value Reference Range Interpretation Comments WHITE BLOOD CELL COUNT (BEAKER) 5.6 K/ L 3.5-10.5 (test code = 775) RED BLOOD CELL COUNT (BEAKER) 2.57 M/ L 3.93-5.22 L (test code = 761) HEMOGLOBIN (BEAKER) (test code = 8.3 GM/DL 11.2-15.7 L 410) HEMATOCRIT (BEAKER) (test code = 25.6 % 34.1-44.9 L 411) MEAN CORPUSCULAR VOLUME (BEAKER) 99.6 fL 79.4-94.8 H (test code = 753) MEAN CORPUSCULAR HEMOGLOBIN 32.3 pg 25.6-32.2 H (BEAKER) (test code = 751) MEAN CORPUSCULAR HEMOGLOBIN CONC 32.4 GM/DL 32.2-35.5 (BEAKER) (test code = 752) RED CELL DISTRIBUTION WIDTH 24.5 % 11.7-14.4 H (BEAKER) (test code = 412) PLATELET COUNT (BEAKER) (test code 87 K/CU MM 150-450 L = 756) MEAN PLATELET VOLUME (BEAKER) 11.9 fL 9.4-12.3 (test code = 754) NUCLEATED RED BLOOD CELLS (BEAKER) 0 /100 WBC 0-0 (test code = 413) POCT-GLUCOSE [id number] 05:58:51 Test Item Value Reference Range Interpretation Comments POC-GLUCOSE METER 138 mg/dL 70-110 H : TESTED A T [facility] 6720 (BEAKER) (test code = JOSE R Drummond [place], 1538) [id number]: Oil [employer]ist/Techni shantelle ID = [id number] for Mohit Guerra BLOOD GAS, [id number] 05:22:09 Test Item Value Reference Range Interpretation Comments PH ARTERIAL (BEAKER) (test code = 7.50 7.35-7.45 H 383) PCO2 ARTERIAL (BEAKER) (test code 34 mm Hg 35-45 L = 384) PO2 ARTERIAL (BEAKER) (test code = 96 mm Hg 80-90 H 385) O2 SATURATION ARTERIAL (BEAKER) 97.7 % 96.0-97.0 H (test code = 386) HCO3 ARTERIAL (BEAKER) (test code 26 mmol/L 21-29 = 388) BASE EXCESS ARTERIAL (BEAKER) 2.5 mmol/L -2.0-3.0 (test code = 387) PATIENT TEMPERATURE (BEAKER) (test 37.5 code = 1818) FIO2 (BEAKER) (test code = 1819) 30.0 CALCIUM, [id number] 05:22:09 Test Item Value Reference Range Interpretation Comments CALCIUM IONIZED (BEAKER) (test 1.10 mmol/L 1.12-1.27 L code = 698) PH, BLOOD (BEAKER) (test code = 7.50 1810) OXYGEN SATURATION, [id number] 05:16:58 Test Item Value Reference Range Interpretation Comments O2 SATURATION (MEASURED) (BEAKER) 83.0 % (test code = 1455) POCT-GLUCOSE [id number] 23:56:14 Test Item Value Reference Range Interpretation Comments POC-GLUCOSE METER 151 mg/dL 70-110 H : TESTED A T [facility] 6720 (BEAKER) (test code = JOSE R Drummond [place], 1538) [address]: Oil Fire Specialist/Techni shantelle ID = [id number] for Mohit Guerra Prepare [id number] 23:54:00 Test Item Value Reference Range Interpretation Comments Unit ABO (test code = O Pos 8993820) UNIT NUMBER (test code = [id number] 934-0) Status (test code = 1457358) TX_TIMEINCHART Blood Bank Product (test code CRYOPRECIPITATE = 2263) PRODUCT CODE (test code = S2215H68 933-2) [facility] [id number] 18:09:15 Test Item Value Reference Range Interpretation Comments POC-GLUCOSE METER 112 mg/dL 70-110 H : TESTED A T [facility] 6720 (BEAKER) (test code = JOSE R [place], 1538) [address]: Oil Fire Specialist/Techni shantelle ID = [id number] for Fo Cher Stanley CORTISOL,60 [id number] 16:58:18 Test Item Value Reference Range Interpretation Comments CORTISOL BASELINE NETWORKED 12.6 mcg/dL (BEAKER) (test code = 2307) CORTISOL 30 MINUTE NETWORKED 16.2 mcg/dL (BEAKER) (test code = 2308) CORTISOL, 60 MINUTE (BEAKER) 16.6 ug/dL (test code = 1805) ACTH STIMULATION TEST INTERPRETATION GUIDELINES(Synonyms: Cortrosyn Test, Cosyntropin or Corticotropin Stimulation Test)Adenocorticotropic hormone (ACTH)is a tropic hormone, made in the pituitary gland, which travels trhough the bloodstream and stimulates the cortex of the adrenal glands to release co rtisol. Cortisol is a primary hormone, which aids the body's metabolism of fats, carbohydrates, and protein as well as sodium and potassium regulation.ACTH Stimulation Test: Exogenous administration ofbiologically active ACTH stimulates the secretion of cortisol from the adrenal gland. This test is used to evaluate adrenal function by measuring cortisol levels at baseline and at 30 and 60 minutes after the administration of 250 micrograms of cosyntropin (Cortrosyn). Patients who have received exogenous corticosteroids immediately prior to performing the ACTH Stimulation Test will often have elevated baseline cortisol levels, which may lead to erroneous interpretation of test results. The notable exception is with dexamethasone.Normal Response: An increase in cortisol after stimulation by ACTH isnormal. Post-stimulation cortisol concentration should be greater than 20 mcg/dL or the rate of risefrom baseline cortisol should be greater than or equal to 9 mcg/dL.Patients with sepsis or septic shock: According to a study by Madison et al (REN 2000,283(8):1038-45), the ACTH Stimulation Test provides important prognostic information. This study defined 3 groups of patients with sepsis or septic shock: 1. Good Survival: Low basal cortisol (<or=34 mcg/dL) and high ACTH response (>9mcg/dL) 2.Intermediate Survival: Low basal cortisol (<34 mcg/dL) and low response to ACTH (<or=9 mcg/dL)OR High basal cortisol (>34 mcg/dL) or high ACTH response (>9 mcg/dL) 3. Poor Survival: High basal cortisol (>34 mcg/dL) and low ACTH response (<or=9 mcg/dL).Treatment of patients with relative adrenal dysfunction may be indicated based on test results and the clinical condition of the patient. Additional information, including treatment recommendations, is available in critically ill patients, approved by the Pharmacy, Nutrition, and Therapeutics Committee on 06/25/2004 and available through the Pharmacy Policy and Procedure Section on The Source.Oil Fire Specialist ID - BSCORTISOL,30 [id number] 16:08:22 Test Item Value Reference Range Interpretation Comments CORTISOL BASELINE NETWORKED 12.6 mcg/dL (BEAKER) (test code = 2307) CORTISOL, 30 MINUTE (BEAKER) 16.2 ug/dL (test code = 1804) ACTH STIMULATION TEST INTERPRETATION GUIDELINES(Synonyms: Cortrosyn Test, Cosyntropin or Corticotropin Stimulation Test)Adenocorticotropic hormone (ACTH)is a tropic hormone, made in the pituitary gland, which travels trhough the bloodstream and stimulates the cortex of the adrenal glands to release co rtisol. Cortisol is a primary hormone, which aids the body's metabolism of fats, carbohydrates, and protein as well as sodium and potassium regulation.ACTH Stimulation Test: Exogenous administration ofbiologically active ACTH stimulates the secretion of cortisol from the adrenal gland. This test is used to evaluate adrenal function by measuring cortisol levels at baseline and at 30 and 60 minutes after the administration of 250 micrograms of cosyntropin (Cortrosyn). Patients who have received exogenous corticosteroids immediately prior to performing the ACTH Stimulation Test will often have elevated baseline cortisol levels, which may lead to erroneous interpretation of test results. The notable exception is with dexamethasone.Normal Response: An increase in cortisol after stimulation by ACTH isnormal. Post-stimulation cortisol concentration should be greater than 20 mcg/dL or the rate of risefrom baseline cortisol should be greater than or equal to 9 mcg/dL.Patients with sepsis or septic shock: According to a study by Madison et al (REN 2000,283(8):9636-45), the ACTH Stimulation Test provides important prognostic information. This study defined 3 groups of patients with sepsis or septic shock: 1. Good Survival: Low basal cortisol (<or=34 mcg/dL) and high ACTH response (>9mcg/dL) 2.Intermediate Survival: Low basal cortisol (<34 mcg/dL) and low response to ACTH (<or=9 mcg/dL)OR High basal cortisol (>34 mcg/dL) or high ACTH response (>9 mcg/dL) 3. Poor Survival: High basal cortisol (>34 mcg/dL) and low ACTH response (<or=9 mcg/dL).Treatment of patients with relative adrenal dysfunction may be indicated based on test results and the clinical condition of the patient. Additional information, including treatment recommendations, is available in critically ill patients, approved by the Pharmacy, Nutrition, and Therapeutics Committee on 06/25/2004 and available through the Pharmacy Policy and Procedure Section on The Source.Oil Fire Specialist ID - ADMINPOCT-GLUCOSE METER 2022-03-04 15:14:11 Test Item Value Reference Range Interpretation Comments POC-GLUCOSE METER 109 mg/dL 70-110 : TESTED A T [facility] 6720 [facility] (test code = JOSE R [place], 1538) [address]: Oil Fire Specialist/Techni shantelle ID = [id number] for SANDRINE NUÑEZ OXYGEN SATURATION, [id number] 15:07:58 Test Item Value Reference Range Interpretation Comments O2 SATURATION (MEASURED) (BEAKER) 69.4 % (test code = 1455) CORTISOL,[id number] 13:25:14 Test Item Value Reference Range Interpretation Comments CORTISOL, BASELINE (BEAKER) (test 12.6 ug/dL code = 1803) ACTH STIMULATION TEST INTERPRETATION GUIDELINES(Synonyms: Cortrosyn Test, Cosyntropin or Corticotropin Stimulation Test)Adenocorticotropic hormone (ACTH)is a tropic hormone, made in the pituitary gland, which travels trhough the bloodstream and stimulates the cortex of the adrenal glands to release co rtisol. Cortisol is a primary hormone, which aids the body's metabolism of fats, carbohydrates, and protein as well as sodium and potassium regulation.ACTH Stimulation Test: Exogenous administration ofbiologically active ACTH stimulates the secretion of cortisol from the adrenal gland. This test is used to evaluate adrenal function by measuring cortisol levels at baseline and at 30 and 60 minutes after the administration of 250 micrograms of cosyntropin (Cortrosyn). Patients who have received exogenous corticosteroids immediately prior to performing the ACTH Stimulation Test will often have elevated baseline cortisol levels, which may lead to erroneous interpretation of test results. The notable exception is with dexamethasone.Normal Response: An increase in cortisol after stimulation by ACTH isnormal. Post-stimulation cortisol concentration should be greater than 20 mcg/dL or the rate of risefrom baseline cortisol should be greater than or equal to 9 mcg/dL.Patients with sepsis or septic shock: According to a study by Madison et al (REN 2000,283(8):1038-45), the ACTH Stimulation Test provides important prognostic information. This study defined 3 groups of patients with sepsis or septic shock: 1. Good Survival: Low basal cortisol (<or=34 mcg/dL) and high ACTH response (>9mcg/dL) 2.Intermediate Survival: Low basal cortisol (<34 mcg/dL) and low response to ACTH (<or=9 mcg/dL)OR High basal cortisol (>34 mcg/dL) or high ACTH response (>9 mcg/dL) 3. Poor Survival: High basal cortisol (>34 mcg/dL) and low ACTH response (<or=9 mcg/dL).Treatment of patients with relative adrenal dysfunction may be indicated based on test results and the clinical condition of the patient. Additional information, including treatment recommendations, is available in critically ill patients, approved by the Pharmacy, Nutrition, and Therapeutics Committee on 06/25/2004 and available through the Pharmacy Policy and Procedure Section on The Source.Oil Fire Specialist ID - DREAD MCarotid doppler mcidsrsns4919-47-94 13:08:27Ejection FractionSLEH ECHO HEARTLAB MKCKESSON [facility] HospitalVANCOMYCIN LEVEL, [id number] 13:01:29 Test Item Value Reference Range Interpretation Comments VANCOMYCIN TROUGH (BEAKER) (test 14.8 ug/mL 10.0-20.0 code = 522) Oil Fire Specialist ID - DREAD [id number] 12:58:03 Test Item Value Reference Range Interpretation Comments AMMONIA (BEAKER) (test code = 348) 70 mol/L 18-72 Oil Fire Specialist ID - DREAD White(MANUAL DIFFERENTIAL)2022-03-04 12:57:10 Test Item Value Reference Range Interpretation Comments NEUTROPHILS - REL (DIFF) (BEAKER) 90 % (test code = 1359) LYMPHOCYTES - REL (DIFF) (BEAKER) 2 % (test code = 1360) MONOCYTES - REL (DIFF) (BEAKER) 3 % (test code = 1361) EOSINOPHILS - REL (DIFF) (BEAKER) 3 % (test code = 1362) METAMYELOCYTES-REL (DIFF) (BEAKER) 1 % 0-0 H (test code = 258) BANDS - REL (DIFF) (BEAKER) (test 1 % 0-10 code = 1348) NEUTROPHILS - ABS (DIFF) (BEAKER) 7.11 K/ L 1.80-8.00 (test code = 1365) LYMPHOCYTES - ABS (DIFF) (BEAKER) 0.16 K/ L 1.48-4.50 L (test code = 1366) MONOCYTES - ABS (DIFF) (BEAKER) 0.24 K/ L 0.00-1.30 (test code = 1367) EOSINOPHILS - ABS (DIFF) (BEAKER) 0.24 K/ L 0.00-0.50 (test code = 1368) METAMYELOCTYES - ABS (DIFF) 0.08 K/ L 0.00-0.00 H (BEAKER) (test code = 261) BANDS-ABS (DIFF) (BEAKER) (test 0.1 K/ L 0.0-0.8 code = 1349) TOTAL COUNTED (BEAKER) (test code = 100 1351) BANDS + SEGMENTED NEUTROPHILS 7.19 (BEAKER) (test code = 1352) WBC MORPHOLOGY (BEAKER) (test code Normal = 487) PLT MORPHOLOGY (BEAKER) (test code Normal = 486) TARGET CELLS (BEAKER) (test code = 1+ few 480) RAD, CHEST, 1 VIEW, NON [id number] 12:29:00Reason for exam:- >pneumoniaShould this be performed at the bedside?->Yes [facility] : 1985 Sex: FFINAL REPORT EXAMINATION: RAD, CHEST, 1 VIEW, NON DEPT INDICATION: Pneumonia COMPARISON: Chest radiograph of the prior day FINDINGS: LINES/TUBES: Interval placement of right IJ temporary central venous catheter with tip in the SVC. Additional support lines and tubes unchanged. LUNGS:Stable lung volumes and bilateral diffuse interstitial and airspace opacities. PLEURA:No pleural effu mahnaz or pneumothorax. MEDIASTINUM: The cardiomediastinal silhouette appears unchanged in size and shape. BONES/SOFT TISSUES:No acute osseous injury. ABDOMEN:No free air under the diaphragm. IMPRESSION:Right IJ central venous catheter in expected position. Otherwise, no significant interval change. Sig joshua: Alex Brody MDReport Verified Date/Time: 03/04/2022 12:29:56 ANA TITER AND [id number] 12:05:29 Test Item Value Reference Range Interpretation Comments EMILIANO TITER (BEAKER) (test code = :160 1541) EMILIANO PATTERN (BEAKER) (test code = Homogeneous 1781) ANTI-NUCLEAR ANTIBODY (EMILIANO)2022-03-04 12:05:19 Test Item Value Reference Range Interpretation Comments ANTI-NUCLEAR ANTIBODY (EMILIANO) (BEAKER) Positive Negative A (test code = 418) Test performed by IFA method.SPIN/CONCENTRATION [id number] 11:30:22 Test Item Value Reference Range Interpretation Comments CONCENTRATION CHARGED (BEAKER) (test Done code = 2657) SPIN/CONCENTRATION [id number] 11:30:03 Test Item Value Reference Range Interpretation Comments CONCENTRATION CHARGED (BEAKER) (test Done code = 2657) VITAMIN [id number] 11:25:15 Test Item Value Reference Range Interpretation Comments VITAMIN B12 (BEAKER) (test code = > pg/mL 213-816 H 774) Oil Fire Specialist ID - DREAD MUrinalysis w/Microscopic + Reflex to [id number] 11:11:04 Test Item Value Reference Range Interpretation Comments Color, UA (test code Dark Yellow = 5778-6) Clarity, UA (test Hazy code = 5767-9) Specific Hodges, UA 1.024 1.001-1.035 (test code = 5811-5) pH, UA (test code = 7.0 5.0-8.0 5803-2) Protein, UA (test 10 mg/dL Negative A code = 36534-4) Glucose, UA (test Negative Negative code = 365) Ketones, UA (test 10 mg/dL Negative A code = 2514-8) Bilirubin, UA (test Positive Negative A code = 57609-2) Blood, UA (test code Negative Negative = 56289-1) Nitrite, UA (test Negative Negative code = 5802-4) Leukocytes, UA (test Negative Negative code = 5799-2) Urobilinogen, UA 2.0 mg/dL 0.2-1.0 H (test code = 39727-3) RBC, UA (test code = 1 See_Comment [Autom ated 25772-0) message] The system which generated this result transmit afshin reference range : /HPF. The reference range was not used to interpret this result as normal/abnormal . WBC, UA (test code = 5 See_Comment [Autom ated 5821-4) message] The system which generated this result transmit afshin reference range : /HPF. The reference range was not used to interpret this result as normal/abnormal . Bacteria, UA (test None Seen code = 40339-7) Mucus (test code = Many 8247-9) Squam Epithel, UA <1 See_Comment [Automate d (test code = 68212-0) messag e] The system which generated this result transmit afshin reference range : /HPF. The reference range was not used to interpret this result as normal/abnormal . Crystals, Urine (test None Seen code = 56911-3) Specimen Source (test code = 2795) SONIA (test code = SONIA) Oil Fire Specialist ID - [auto]Oil Fire Specialist ID - tech Lab Interpretation Abnormal (test code = 61848-7) [facility] URINE [id number] 11:11:04 Test Item Value Reference Range Interpretation Comments COLOR (BEAKER) (test code = 470) Dark Yellow CLARITY (BEAKER) (test code = Hazy 469) SPECIFIC GRAVITY UA (BEAKER) 1.024 1.001-1.035 (test code = 468) PH UA (BEAKER) (test code = 467) 7.0 5.0-8.0 PROTEIN UA (BEAKER) (test code = 10 mg/dL Negative A 464) GLUCOSE UA (BEAKER) (test code = Negative Negative 365) KETONES UA (BEAKER) (test code = 10 mg/dL Negative A 371) BILIRUBIN UA (BEAKER) (test code Positive Negative A = 462) BLOOD UA (BEAKER) (test code = Negative Negative 461) NITRITE UA (BEAKER) (test code = Negative Negative 465) LEUKOCYTE ESTERASE UA (BEAKER) Negative Negative (test code = 466) UROBILINOGEN UA (BEAKER) (test 2.0 mg/dL 0.2-1.0 H code = 463) RBC UA (BEAKER) (test code = 519) 1 /HPF WBC UA (BEAKER) (test code = 520) 5 /HPF BACTERIA (BEAKER) (test code = None Seen 517) MUCUS (BEAKER) (test code = 1574) Many SQUAMOUS EPITHELIAL (BEAKER) < /HPF (test code = 516) CRYSTALS, URINE (BEAKER) (test None Seen code = 1521) SOURCE(BEAKER) (test code = 2795) Oil Fire Specialist ID - [auto]Oil Fire Specialist ID - techEBV ANTIBODY, [id number] 10:10:17 Test Item Value Reference Range Interpretation Comments MARQUIS ALVAREZ VIRAL CAPSID Positive Negative, Equivocal A ANTIGEN IGG (BEAKER) (test code = 3412) Marquis Alvarez Viral Capsid Antigen IgG Result Interpretation: </= 0.8 Al Negative 0.9-1.0 Al Equivocal >/= 1.1 Al PositiveEBV ANTIBODY, [id number] 10:10:17 Test Item Value Reference Range Interpretation Comments MARQUIS ALVAREZ VIRAL CAPSID Negative Negative, Equivocal ANTIGEN IGM (BEAKER) (test code = 3416) Marquis Alvarez Viral Capsid Antigen IgM Result Interpretation: </= 0.8 Al Negative 0.9-1.0 Al Equivocal >/= 1.1 Al PositiveRUBELLA ANTIBODY, IGG 2022-03-04 10:10:16 Test Item Value Reference Range Interpretation Comments RUBELLA IGG QUANTITATION (BEAKER) 11.0 IU/mL <8.0 H (test code = 572) Rubella IgG Result Interpretation: </= 7.0 IU/mL Negative - Presumed non- immune 8.0 - 9.9 IU/mL Equivocal >= 10.0 IU/mL Positive - Presumed immune VARICELLA ZOSTER ANTIBODY, [id number] 10:10:16 Test Item Value Reference Range Interpretation Comments VARICELLA ZOSTER IGG (AL) (BEAKER) 4.4 (test code = 3197) VARICELLA ZOSTER RESULT INTERPRETATIONS: <=0.8 Al Nonreactive: Presumed non- immune to VZV 0.9-1.0Al Equivocal >=1.1 Al Reactive: Presumed immune to VZV CYTOMEGALOVIRUS ANTIBODY, [id number] 10:10:16 Test Item Value Reference Range Interpretation Comments CYTOMEGALOVIRUS, IGG (BEAKER) Positive Negative, Equivocal A (test code = 3429) CMV IgG Result Interpretation: </= 0.8 Al Negative 0.9-1.0 Al Equivocal >/=1.1 Al [id number] 09:43:54 Test Item Value Reference Range Interpretation Comments T3 TOTAL (BEAKER) (test code = 0.33 ng/mL 0.60-1.81 L 656) Oil Fire Specialist ID - DSENSONRETICULOCYTE [id number] 09:19:21 Test Item Value Reference Range Interpretation Comments RETICULOCYTE COUNT PCT (BEAKER) (test 6.2 % 0.5-1.7 H code = 575) Oil Fire Specialist ID - 6000POCT-GLUCOSE [id number] 06:53:00 Test Item Value Reference Range Interpretation Comments POC-GLUCOSE METER 98 mg/dL 70-110 : Notified RN/MD: TESTED (BEAKER) (test code = AT [facility] [facility] [place], [address]: Oil Fire Specialist/Techni shantelle ID = [id number] for Emilie lu (contract), Cristobal floyd COMPREHENSIVE METABOLIC [id number] 06:16:07 Test Item Value Reference Range Interpretation Comments TOTAL PROTEIN 4.9 gm/dL 6.0-8.3 L (BEAKER) (test code = 770) ALBUMIN (BEAKER) 2.5 g/dL 3.5-5.0 L (test code = 1145) ALKALINE 100 U/L 40-150 PHOSPHATASE (BEAKER) (test code = 346) BILIRUBIN TOTAL 10.7 mg/dL 0.2-1.2 H (BEAKER) (test code = 377) SODIUM (BEAKER) 145 meq/L 136-145 (test code = 381) POTASSIUM (BEAKER) 3.9 meq/L 3.5-5.1 (test code = 379) CHLORIDE (BEAKER) 113 meq/L 98-107 H (test code = 382) CO2 (BEAKER) (test 27 meq/L 22-29 code = 355) BLOOD UREA 14 mg/dL 7-21 NITROGEN (BEAKER) (test code = 354) CREATININE 0.43 mg/dL 0.57-1.25 L (BEAKER) (test code = 358) GLUCOSE RANDOM 112 mg/dL 70-105 H (BEAKER) (test code = 652) CALCIUM (BEAKER) 7.9 mg/dL 8.4-10.2 L (test code = 697) AST (SGOT) 78 U/L 5-34 H (BEAKER) (test code = 353) ALT (SGPT) 28 U/L 6-55 (BEAKER) (test code = 347) EGFR (BEAKER) 130 Interpretatio n of eGFR (test code = 1092) mL/min/1.[address] age Description sq m Result G1 Maddie l or high >=90 G2 Mildly decreased 60-89 G3a Mildl y to moderately 45-5 9 G3b Moderately to s everely 30-44 G4 Severl y decreased 15-29 G5 Kidney failure <15Reported eGF R is based on the CKD-EPI 202 equation that d oes not use a race coefficientEsti mated GFR is not as accur ate as Creatinine Ana corrales in predicting glom erular filtration rate . Estimated GFR is not appl icable for dialysis patien ts Oil Fire Specialist ID - DREAD MSpecimen moderately [id number] 06:11:59 Test Item Value Reference Range Interpretation Comments PHOSPHORUS (BEAKER) (test code = 2.1 mg/dL 2.3-4.7 L 604) Oil Fire Specialist ID - DREAD [id number] 06:11:58 Test Item Value Reference Range Interpretation Comments MAGNESIUM (BEAKER) (test code = 2.1 mg/dL 1.6-2.6 627) Oil Fire Specialist ID Kt [place] [facility] (HEMOGRAM ONLY)2022-03-04 05:02:41 Test Item Value Reference Range Interpretation Comments WHITE BLOOD CELL COUNT (BEAKER) 7.9 K/ L 3.5-10.5 (test code = 775) RED BLOOD CELL COUNT (BEAKER) 2.38 M/ L 3.93-5.22 L (test code = 761) HEMOGLOBIN (BEAKER) (test code = 7.5 GM/DL 11.2-15.7 L 410) HEMATOCRIT (BEAKER) (test code = 23.3 % 34.1-44.9 L 411) MEAN CORPUSCULAR VOLUME (BEAKER) 97.9 fL 79.4-94.8 H (test code = 753) MEAN CORPUSCULAR HEMOGLOBIN 31.5 pg 25.6-32.2 (BEAKER) (test code = 751) MEAN CORPUSCULAR HEMOGLOBIN CONC 32.2 GM/DL 32.2-35.5 (BEAKER) (test code = 752) RED CELL DISTRIBUTION WIDTH 23.9 % 11.7-14.4 H (BEAKER) (test code = 412) PLATELET COUNT (BEAKER) (test code 79 K/CU MM 150-450 L = 756) MEAN PLATELET VOLUME (BEAKER) 12.3 fL 9.4-12.3 (test code = 754) NUCLEATED RED BLOOD CELLS (BEAKER) 0 /100 WBC 0-0 (test code = 413) [id number] 05:00:33 Test Item Value Reference Range Interpretation Comments FIBRINOGEN LEVEL (BEAKER) (test 162 mg/dl 225-434 L code = 658) BLOOD GAS, [id number] 04:18:46 Test Item Value Reference Range Interpretation Comments PH VENOUS (BEAKER) (test code = 7.50 7.32-7.42 H 701) PCO2 VENOUS (BEAKER) (test code = 34 mm Hg 41-51 L 755) PO2 VENOUS (BEAKER) (test code = 133 mm Hg 25-40 H 702) O2 SATURATION VENOUS (BEAKER) 98.9 % 40.0-70.0 H (test code = 703) HCO3 VENOUS (BEAKER) (test code = 26 mmol/L 21-29 705) BASE EXCESS VENOUS (BEAKER) (test 2.7 mmol/L -2.0-3.0 code = 704) PATIENT TEMPERATURE (BEAKER) (test 37.5 code = 1818) FIO2 (BEAKER) (test code = 1819) 40.0 CALCIUM, [id number] 04:18:45 Test Item Value Reference Range Interpretation Comments CALCIUM IONIZED (BEAKER) (test 1.10 mmol/L 1.12-1.27 L code = 698) PH, BLOOD (BEAKER) (test code = 7.51 1810) [id number] 02:10:38 Test Item Value Reference Range Interpretation Comments CORTISOL, TOTAL (BEAKER) (test 12.7 ug/dL 3.7-19.4 code = 2755) Oil Fire Specialist ID - PIAYA LPOCT-GLUCOSE [id number] 01:05:43 Test Item Value Reference Range Interpretation Comments POC-GLUCOSE METER 105 mg/dL 70-110 : Notified RN/MD: (BEAKER) (test code = TESTED AT [facility] 2294 2052) [facility], [address]: Oil Fire Specialist/Techni shantelle ID = [id number] for Remi gutierrez (contract)Cristobal everett [id number] 22:42:24 Test Item Value Reference Range Interpretation Comments PHOSPHORUS (BEAKER) (test code = 3.6 mg/dL 2.3-4.7 604) Oil Fire Specialist ID - PIAYA LBASIC METABOLIC [id number] 22:42:24 Test Item Value Reference Range Interpretation Comments SODIUM (BEAKER) 147 meq/L 136-145 H (test code = 381) POTASSIUM 3.0 meq/L 3.5-5.1 L (BEAKER) (test code = 379) CHLORIDE (BEAKER) 111 meq/L 98-107 H (test code = 382) CO2 (BEAKER) 29 meq/L 22-29 (test code = 355) BLOOD UREA 16 mg/dL 7-21 NITROGEN (BEAKER) (test code = 354) CREATININE 0.50 mg/dL 0.57-1.25 L (BEAKER) (test code = 358) GLUCOSE RANDOM 115 mg/dL 70-105 H (BEAKER) (test code = 652) CALCIUM (BEAKER) 8.1 mg/dL 8.4-10.2 L (test code = 697) EGFR (BEAKER) 125 Interpretatio n of eGFR (test code = mL/min/1.73 values Stage De scription 1092) sq m Result G1 Maddie l or high >=90 G2 Mildly decreased 60-89 G3a Mildl y to moderately 45-5 9 G3b Moderately to s everely 30-44 G4 Sever ly decreased 15-29 G5 Kidney failure <15Repo rted eGFR is based on the CKD-EPI 2020 equation t hat does not use a race coefficientEsti mated GFR is not as accur ate as Creatinine Ana antoni in predicting glom erular filtration rate . Estimated GFR is not appl icable for dialysis patien ts Oil Fire Specialist ID - GEOVANNA LSpecimen moderately ictericLACTIC ACID, [id number] 22:25:43 Test Item Value Reference Range Interpretation Comments LACTATE BLOOD VENOUS 1.56 mmol/L 0.50-2.20 Specime n slightly (2) (BEAKER) (test hemolyzed code = 5261) Oil Fire Specialist ID - GEOVANNA LSpecimen moderately ictericCBC (HEMOGRAM ONLY)2022-03-03 22:19:17 Test Item Value Reference Range Interpretation Comments WHITE BLOOD CELL COUNT (BEAKER) 9.1 K/ L 3.5-10.5 (test code = 775) RED BLOOD CELL COUNT (BEAKER) 2.39 M/ L 3.93-5.22 L (test code = 761) HEMOGLOBIN (BEAKER) (test code = 7.6 GM/DL 11.2-15.7 L 410) HEMATOCRIT (BEAKER) (test code = 24.1 % 34.1-44.9 L 411) MEAN CORPUSCULAR VOLUME (BEAKER) 100.8 fL 79.4-94.8 H (test code = 753) MEAN CORPUSCULAR HEMOGLOBIN 31.8 pg 25.6-32.2 (BEAKER) (test code = 751) MEAN CORPUSCULAR HEMOGLOBIN CONC 31.5 GM/DL 32.2-35.5 L (BEAKER) (test code = 752) RED CELL DISTRIBUTION WIDTH 23.7 % 11.7-14.4 H (BEAKER) (test code = 412) PLATELET COUNT (BEAKER) (test code 71 K/CU MM 150-450 L = 756) MEAN PLATELET VOLUME (BEAKER) 12.1 fL 9.4-12.3 (test code = 754) NUCLEATED RED BLOOD CELLS (BEAKER) 0 /100 WBC 0-0 (test code = 413) CALCIUM, [id number] 22:14:28 Test Item Value Reference Range Interpretation Comments CALCIUM IONIZED (BEAKER) (test 1.09 mmol/L 1.12-1.27 L code = 698) PH, BLOOD (BEAKER) (test code = 7.43 1810) POCT-GLUCOSE [id number] 20:10:01 Test Item Value Reference Range Interpretation Comments POC-GLUCOSE METER 112 mg/dL 70-110 H : Notified RN/MD: ([facility]) (test code = TESTED AT [facility] 6720 1538) [facility], [address]: Oil Fire Specialist/Techni shantelle ID = [id number] for Remi gutierrez (contract)Cristobal POCT-GLUCOSE [id number] 18:35:29 Test Item Value Reference Range Interpretation Comments POC-GLUCOSE METER 94 mg/dL 70-110 : TESTED A T [place] [address] ([facility]) (test code = [facility] [facility], 1538) [address]: Oil Fire Specialist/Techni shantelle ID = [id number] for SHANNON RESTREPO ECHO W CONTRAST & [id number] 16:56:02Ejection FractionSIDAHO [facility] E[facility] HEARTLAB MKCKESSON [facility] CenterCRYPT[facility]CC[facility] ANTIGEN 2022-03-03 16:05:24 Test Item Value Reference Range Interpretation Comments CRYPTOCOCCAL ANTIGEN, SERUM Negative Negative, Interference (BEAKER) (test code = 1828) [id number] 16:04:51 Test Item Value Reference Range Interpretation Comments RPR SCREEN (BEAKER) (test code = Nonreactive Nonreactive 420) [id number] 15:42:44 Test Item Value Reference Range Interpretation Comments T4 TOTAL (BEAKER) (test code = 895) 3.9 ug/dL 4.9-11.7 L Oil Fire Specialist ID - JEFFERSON [id number] 15:13:31 Test Item Value Reference Range Interpretation Comments FERRITIN (HENRY) (test code = 481.60 ng/mL 5.00-275.00 H 361) Oil Fire Specialist ID - JEFFERSON DU/S, ABDOMINAL, [id number] 15:00:00Reason for exam:->evaluation for cirrhosis; doppler to evaluate for thrombus/budd chiariShould this be performed at the bedside?->Yes [facility] : 1985 Sex: FFINAL REPORT TECHNIQUE: Grayscale ultrasound of the abdomen with color Doppler andspectral Doppler ultrasound of the portal/hepatic vasculature. INDICATION: evaluation for cirrhosis;doppler to evaluate for thrombus /budd chiari. COMPARISON: None. FINDINGS: LIVER: The liver is enlarged 16.2 cm in right hepatic lobe length. Markedly increased liver echogenicity. No focal liver lesions. HEPATIC VASCULATURE: The hepatic arteries are patent with normal flow velocities, resistive indices, and waveforms. The hepatic veins and confluence are patent. The main portal vein measures 1.1 cmin diameter. There is no confidently visualized flow within the portal vein. The hepatic arterial res istive indices range from 0.5-0.6 with a proper hepatic arterial acceleration time of 0.03 seconds. BILIARY:Gallbladder: The gallbladder was not confidently visualized.The common bile duct was not confidently visualized PANCREAS: Incompletely visualized due to overlying bowel gas. The partially visualized pancreatic body and tail are normal. SPLEEN: No splenomegaly. The spleen measures 9.9 cm in length. PERITONEUM: Small-volume upper abdominal ascites. KIDNEYS: Normal in size bilaterally. No hydronephrosis. No sonographically evident solid mass lesion. MIDLINE VASCULATURE: The visualized inferior vena cava is patent. The maximum visualized aortic diameter is 1.8 cm. Splenic artery and vein are patent. IMPRESSION: 1.No confidently visualized portal venous flow. There is questionable flow within the main portal vein on spectral images, and these findings could be due to slow portal venous flow. Further evaluation with either a CT or MR of the abdomen with and without intravenous contrast is recommended for further evaluation. 2.Hepatomegaly with diffuse fatty infiltration of the liver. 3.Small volume upper abdominal ascites Signed: Laisha Newton MDReport Verified Date/Time: 03/03/2022 15:00:50 U/S, DUPLEX, [id number] 15:00:00Reason for exam:->evaluation for cirrhosis; doppler to evaluate for thrombus /budd chiari [facility] : 1985 Sex: FFINAL REPORT TECHNIQUE: Grayscale ultrasound of the abdomen with color Doppler and spectral Doppler ultrasound of the portal/hepatic vasculature. INDICATION: evaluation for cirrhosis; doppler to evaluate for thrombus /budd chiari. COMPARISON: None. FINDINGS: LIVER: The liver is enlarged 16.2 cm in right hepatic lobe length. Markedly increased liver echogenicity. No focal liver lesions. HEPATIC VASCULATURE: The hepatic arteries are patent with normal flow velocities, resistive indices, and waveforms. The hepatic veins and confluence are patent. The main portal vein measures 1.1 cmin diameter. There is no confidently visualized flow within the portal vein. The hepatic arterial res istive indices range from 0.5-0.6 with a proper hepatic arterial acceleration time of 0.03 seconds. BILIARY:Gallbladder: The gallbladder was not confidently visualized.The common bile duct was not confidently visualized PANCREAS: Incompletely visualized due to overlying bowel gas. The partially visualized pancreatic body and tail are normal. SPLEEN: No splenomegaly. The spleen measures 9.9 cm in length. PERITONEUM: Small-volume upper abdominal ascites. KIDNEYS: Normal in size bilaterally. No hydronephrosis. No sonographically evident solid mass lesion. MIDLINE VASCULATURE: The visualized inferior vena cava is patent. The maximum visualized aortic diameter is 1.8 cm. Splenic artery and vein are patent. IMPRESSION: 1.No confidently visualized portal venous flow. There is questionable flow within the main portal vein on spectral images, and these findings could be due to slow portal venous flow. Further evaluation with either a CT or MR of the abdomen with and without intravenous contrast is recommended for further evaluation. 2.Hepatomegaly with diffuse fatty infiltration of the liver. 3.Small volume upper abdominal ascites Signed: Laisha Newton [facility]ITALeport Verified Date/Time: 03/03/2022 15:00:50 HEPATITIS B SURFACE [id number] 14:34:33 Test Item Value Reference Range Interpretation Comments HEPATITIS B SURFACE ANTIBODY < mIU/mL <8.0 (BEAKER) (test code = 647) Oil Fire Specialist ID - GEOVANNA LHEPATITIS B CORE ANTIBODY, [id number] 14:34:18 Test Item Value Reference Range Interpretation Comments HEPATITIS B CORE TOTAL ANTIBODY Nonreactive Nonreactive (BEAKER) (test code = 497) Oil Fire Specialist ID - GEOVANNA LCARCINOEMBRYONIC ANTIGEN (CEA)2022-03-03 14:34:17 Test Item Value Reference Range Interpretation Comments CARCINOEMBRYONIC ANTIGEN (BEAKER) 22.0 ng/mL 0.0-5.0 H (test code = 685) Oil Fire Specialist ID - GEOVANNA LALPHA FETOPROTEIN (AFP), TUMOR [id number] 14:34:17 Test Item Value Reference Range Interpretation Comments ALPHA-FETOPROTEIN (BEAKER) (test 2.0 ng/mL <10.0 code = 1094) Oil Fire Specialist ID - PIDEE LVITAMIN D, [id number] 14:34:06 Test Item Value Reference Range Interpretation Comments VITAMIN D 25-OH (BEAKER) (test code 4.1 ng/mL 6.6-49.9 L = 2764) Effective 04/26/2017: Reference Range ChangeNew: 6.6-49.9 ng/mL Previous: 13.0- 47.8 ng/mLRecommendedVitamin D Target Range: 30.0-40.0 ng/mLOperator ID - GEOVANNA [id number] 14:33:40 Test Item Value Reference Range Interpretation Comments THYROID STIMULATING HORMONE 0.247 uIU/mL 0.350-4.940 L (BEAKER) (test code = 772) Oil Fire Specialist ID - GEOVANNA LHIV-1 ANTIGEN WITH HIV-1/2 [id number] 14:32:21 Test Item Value Reference Range Interpretation Comments HIV-1 ANTIGEN WITH HIV 1\\T\\2 Nonreactive Nonreactive ANTIBODY (2) (BEAKER) (test code = 2586) Oil Fire Specialist ID - GEOVANNA [id number] 14:20:49 Test Item Value Reference Range Interpretation Comments PHOSPHORUS (BEAKER) (test code = 1.4 mg/dL 2.3-4.7 LL 604) Oil Fire Specialist ID - PIDEE HAILEY, TIBC, % SAT. (WITHOUT FERRITIN)2022-03-03 14:20:38 Test Item Value Reference Range Interpretation Comments IRON (BEAKER) (test code = 547) 38.0 ug/dL 40.0-160.0 L TOTAL IRON BINDING CAPACITY 56 ug/dL 250-450 L (BEAKER) (test code = 769) IRON % SATURATION (2) (BEAKER) 68 % 20-55 H (test code = 2590) Oil Fire Specialist ID - PIDEE [id number] 14:20:37 Test Item Value Reference Range Interpretation Comments TRANSFERRIN (BEAKER) (test code = 45 mg/dL 174-382 L 541) Oil Fire Specialist ID - PIDEE LSpecimen moderately [id number] 14:20:15 Test Item Value Reference Range Interpretation Comments ALPHA-1 ANTITRYPSIN 137.60 mg/dL 90.00-200.00 Specimen slightly (BEAKER) (test code = hemoly zed 502) Oil Fire Specialist ID - GEOVANNA [id number] 14:18:19 Test Item Value Reference Range Interpretation Comments ETHANOL (BEAKER) < mg/dL See_Comment [Automated message] The (test code = 400) system whi [employer] generated this result tra nsmitted reference range : <=10. The reference r yvonne was not used to int erpret this result as normal/abnormal . Oil Fire Specialist ID - GEOVANNA LBILIRUBIN, [id number] 14:18:18 Test Item Value Reference Range Interpretation Comments BILIRUBIN DIRECT (BEAKER) (test 5.7 mg/dL 0.1-0.5 H code = 706) Oil Fire Specialist ID - GEOVANNA LGAMMA GLUTAMYL TRANSFERASE (GGT)2022-03-03 14:18:18 Test Item Value Reference Range Interpretation Comments GAMMA GLUTAMYL TRANSFERASE (BEAKER) 86 U/L 9-64 H (test code = 364) Oil Fire Specialist ID - GEOVANNA LSpecimen moderately ictericCOMPREHENSIVE METABOLIC PANEL 2022-03-03 14:18:17 Test Item Value Reference Range Interpretation Comments TOTAL PROTEIN 5.0 gm/dL 6.0-8.3 L (BEAKER) (test code = 770) ALBUMIN (BEAKER) 2.0 g/dL 3.5-5.0 L (test code = 1145) ALKALINE 121 U/L 40-150 PHOSPHATASE (BEAKER) (test code = 346) BILIRUBIN TOTAL 8.9 mg/dL 0.2-1.2 H (BEAKER) (test code = 377) SODIUM (BEAKER) 145 meq/L 136-145 (test code = 381) POTASSIUM (BEAKER) 2.8 meq/L 3.5-5.1 L (test code = 379) CHLORIDE (BEAKER) 110 meq/L 98-107 H (test code = 382) CO2 (BEAKER) (test 28 meq/L 22-29 code = 355) BLOOD UREA 17 mg/dL 7-21 NITROGEN (BEAKER) (test code = 354) CREATININE 0.55 mg/dL 0.57-1.25 L (BEAKER) (test code = 358) GLUCOSE RANDOM 84 mg/dL 70-105 (BEAKER) (test code = 652) CALCIUM (BEAKER) 8.3 mg/dL 8.4-10.2 L (test code = 697) AST (SGOT) 76 U/L 5-34 H (BEAKER) (test code = 353) ALT (SGPT) 27 U/L 6-55 (BEAKER) (test code = 347) EGFR (BEAKER) 123 Interpretatio n of eGFR (test code = 1092) mL/min/1.[address] age Description sq m Result G1 Maddie l or high >=90 G2 Mildly decreased 60-89 G3a Mildl y to moderately 45-5 9 G3b Moderately to s everely 30-44 G4 Severl y decreased 15-29 G5 Kidney failure <15Reported eGF R is based on the CKD-EPI 2020 equation that d oes not use a race coefficientEsti mated GFR is not as accur ate as Creatinine Ana antoni in predicting glom erular filtration rate . Estimated GFR is not appl icable for dialysis patien ts Oil Fire Specialist ID - GEOVANNA LSpecimen moderately ictericLIPID [id number] 14:18:17 Test Item Value Reference Range Interpretation Comments TRIGLYCERIDES (BEAKER) (test code = 80 mg/dL 540) CHOLESTEROL (BEAKER) (test code = 78 mg/dL 631) HDL CHOLESTEROL (BEAKER) (test code 5 mg/dL = 976) LDL CHOLESTEROL CALCULATED (BEAKER) 57 mg/dL (test code = 633) Triglyceride Reference Range: Low Risk <150 Borderline 150-199 High Risk 200-499 Very High Risk >=500Cholesterol Reference Range: Low Risk <200 Borderline 200-239 High Risk >240HDL Cholesterol Reference Range: Low Risk >=60 High Risk <40LDL Cholesterol Reference Range: Optimal <100 Near Optimal 100-129 Borderline 130-159 High 160-189 Very High >=190 Oil Fire Specialist ID - PIDEE LSpecimen moderately [id number] 14:18:16 Test Item Value Reference Range Interpretation Comments MAGNESIUM (BEAKER) (test code = 2.0 mg/dL 1.6-2.6 627) Oil Fire Specialist ID - PIDEE LURIC [id number] 14:18:16 Test Item Value Reference Range Interpretation Comments URIC ACID (BEAKER) (test code = 3.3 mg/dL 2.6-7.2 773) Oil Fire Specialist ID - PIAYA LSpecimen moderately ictericBLOOD GAS, [id number] 14:05:05 Test Item Value Reference Range Interpretation Comments PH ARTERIAL (BEAKER) (test code = 7.55 7.35-7.45 H 383) PCO2 ARTERIAL (BEAKER) (test code 31 mm Hg 35-45 L = 384) PO2 ARTERIAL (BEAKER) (test code = 169 mm Hg 80-90 H 385) O2 SATURATION ARTERIAL (BEAKER) 99.4 % 96.0-97.0 H (test code = 386) HCO3 ARTERIAL (BEAKER) (test code 27 mmol/L 21-29 = 388) BASE EXCESS ARTERIAL (BEAKER) 4.2 mmol/L -2.0-3.0 H (test code = 387) PATIENT TEMPERATURE (BEAKER) (test 36.5 code = 1818) FIO2 (BEAKER) (test code = 1819) 40.0 CBC W/PLT COUNT & AUTO [id number] 13:56:03 Test Item Value Reference Range Interpretation Comments WHITE BLOOD CELL COUNT (BEAKER) 9.1 K/ L 3.5-10.5 (test code = 775) RED BLOOD CELL COUNT (BEAKER) 2.74 M/ L 3.93-5.22 L (test code = 761) HEMOGLOBIN (BEAKER) (test code = 8.7 GM/DL 11.2-15.7 L 410) HEMATOCRIT (BEAKER) (test code = 26.9 % 34.1-44.9 L 411) MEAN CORPUSCULAR VOLUME (BEAKER) 98.2 fL 79.4-94.8 H (test code = 753) MEAN CORPUSCULAR HEMOGLOBIN 31.8 pg 25.6-32.2 (BEAKER) (test code = 751) MEAN CORPUSCULAR HEMOGLOBIN CONC 32.3 GM/DL 32.2-35.5 (BEAKER) (test code = 752) RED CELL DISTRIBUTION WIDTH 23.7 % 11.7-14.4 H (BEAKER) (test code = 412) PLATELET COUNT (BEAKER) (test code 88 K/CU MM 150-450 L = 756) MEAN PLATELET VOLUME (BEAKER) 11.6 fL 9.4-12.3 (test code = 754) NUCLEATED RED BLOOD CELLS (BEAKER) 0 /100 WBC 0-0 (test code = 413) NEUTROPHILS RELATIVE PERCENT 77 % (BEAKER) (test code = 429) LYMPHOCYTES RELATIVE PERCENT 18 % (BEAKER) (test code = 430) MONOCYTES RELATIVE PERCENT 4 % (BEAKER) (test code = 431) EOSINOPHILS RELATIVE PERCENT 1 % (BEAKER) (test code = 432) BASOPHILS RELATIVE PERCENT 0 % (BEAKER) (test code = 437) NEUTROPHILS ABSOLUTE COUNT 7.00 K/ L 1.56-6.13 H (BEAKER) (test code = 670) LYMPHOCYTES ABSOLUTE COUNT 1.68 K/ L 1.18-3.74 (BEAKER) (test code = 414) MONOCYTES ABSOLUTE COUNT (BEAKER) 0.32 K/ L 0.24-0.36 (test code = 415) EOSINOPHILS ABSOLUTE COUNT 0.07 K/ L 0.04-0.36 (BEAKER) (test code = 416) BASOPHILS ABSOLUTE COUNT (BEAKER) 0.00 K/ L 0.01-0.08 L (test code = 417) IMMATURE GRANULOCYTES-RELATIVE 0 % 0-1 PERCENT (BEAKER) (test code = 2801) POCT-GLUCOSE [id number] 13:52:04 Test Item Value Reference Range Interpretation Comments POC-GLUCOSE METER 131 mg/dL 70-110 H : TESTED A T [facility] 6720 (BEAKER) (test code = [facility], 153) [id number]: Oil Fire Specialist/Techni shantelle ID = [id number] for SHANNON MAYER CALCIUM, [id number] 13:47:51 Test Item Value Reference Range Interpretation Comments CALCIUM IONIZED (BEAKER) (test 1.05 mmol/L 1.12-1.27 L code = 698) PH, BLOOD (BEAKER) (test code = 7.44 1810) POCT-GLUCOSE [id number] 13:25:22 Test Item Value Reference Range Interpretation Comments POC-GLUCOSE METER 51 mg/dL 70-110 L : TESTED A T [facility] 6720 (BEAKER) (test code = [facility], 153) [address]: Oil Fire Specialist/Techni shantelle ID = [id number] for SHANNON RESTREPO Screen, [id number] 13:09:21 Test Item Value Reference Range Interpretation Comments Preg Test, Ur (test code = 2112-1) Negative Negative Lab Interpretation (test code = Normal 42424-4) [facility] S[facility]EN, [id number] 13:09:21 Test Item Value Reference Range Interpretation Comments TEST URINE (BEAKER) (test Negative Negative code = 583) [id number] 13:06:45 Test Item Value Reference Range Interpretation Comments PARTIAL THROMBOPLASTIN TIME 36.2 seconds 22.5-36.0 H (BEAKER) (test code = 760) [id number] 11:15:14 Test Item Value Reference Range Interpretation Comments FIBRINOGEN LEVEL (BEAKER) (test code < mg/dl 225-434 LL = 658) PROTHROMBIN [id number] 11:02:07 Test Item Value Reference Range Interpretation Comments PROTIME (BEAKER) 29.6 seconds 11.9-14.2 H (test code = 759) INR (BEAKER) (test 3.03 See_Comment [Automat ed message] code = 370) The system [employer] generated this result transmitted ref erence range: <=5.90. The reference range was not used to int erpret this result as normal/abnormal . RECOMMENDED COUMADIN/WARFARIN INR THERAPY RANGESSTANDARD DOSE: 2.0 - 3.0 Includes: PROPHYLAXIS for venous thrombosis, systemic embolization; TREATMENT for venous thrombosis and/or pulmonary embolus.HIGH RISK: Target INR is 2.5-3.5 for patients with mechanical heart valves.THROMBOELASTOGRAPH (TEG)2022-03-03 10:43:59 Test Item Value Reference Range Interpretation Comments TEG ACTIVATED CLOTTING TIME 6.8 minutes 4.0-7.0 (BEAKER) (test code = 1407) TEG FIBRINOGEN ACTIVITY (BEAKER) 59.9 degrees 61.0-73.0 L (test code = 1408) TEG PLT. AGGREGATION (BEAKER) 47.8 MM 55.0-65.0 L (test code = 1409) TEG FIBRINOLYSIS (BEAKER) (test 0.0 % 0.0-5.0 code = 1410) TGH ACTIVATED CLOTTING TIME 7.2 minutes 4.0-7.0 H (BEAKER) (test code = 1411) TGH FIBRINOGEN ACTIVITY (BEAKER) 60.4 degrees 61.0-73.0 L (test code = 1412) TGH PLT. AGGREGATION (BEAKER) 46.8 MM 55.0-65.0 L (test code = 1413) TGH FIBRINOLYSIS (BEAKER) (test 0.0 % 0.0-5.0 code = 1414) HEMOGLOBIN [id number] 09:44:25 Test Item Value Reference Range Interpretation Comments HEMOGLOBIN A1C < % See_Comment [Automated m essage] ELECTROPHORESIS (BEAKER) The system which (test code = 3811) generated this result transmitted ref erence range: <=5.6%. The reference range was not used to int erpret this result as normal/abnormal . "The A1c is measured using a [facility]-certified method. HbA1c value equal to or greater than 6.5% as thediagnosis cutoff for diabetes. An HbA1c value of 5.7- 6.4% indicates increased risk for diabetes (prediabetes)."Oil Fire Specialist ID - ADMOperator ID - ADMBLOOD GAS, [id number] 08:13:19 Test Item Value Reference Range Interpretation Comments PH VENOUS (BEAKER) (test code = 7.46 7.32-7.42 H 701) PCO2 VENOUS (BEAKER) (test code = 42 mm Hg 41-51 755) PO2 VENOUS (BEAKER) (test code = 30 mm Hg 25-40 702) O2 SATURATION VENOUS (BEAKER) 61.3 % 40.0-70.0 (test code = 703) HCO3 VENOUS (BEAKER) (test code = 29 mmol/L 21-29 705) BASE EXCESS VENOUS (BEAKER) (test 4.5 mmol/L -2.0-3.0 H code = 704) PATIENT TEMPERATURE (BEAKER) (test 36.6 code = 1818) FIO2 (BEAKER) (test code = 1819) 40.0 [id number] 03:56:19 Test Item Value Reference Range Interpretation Comments MAGNESIUM (BEAKER) (test code = 2.0 mg/dL 1.6-2.6 627) Oil Fire Specialist ID - ADMINCOMPREHENSIVE METABOLIC [id number] 03:56:19 Test Item Value Reference Range Interpretation Comments TOTAL PROTEIN 5.1 gm/dL 6.0-8.3 L (BEAKER) (test code = 770) ALBUMIN (BEAKER) 2.1 g/dL 3.5-5.0 L (test code = 1145) ALKALINE 127 U/L 40-150 PHOSPHATASE (BEAKER) (test code = 346) BILIRUBIN TOTAL 10.3 mg/dL 0.2-1.2 H (BEAKER) (test code = 377) SODIUM (BEAKER) 143 meq/L 136-145 (test code = 381) POTASSIUM (BEAKER) 3.4 meq/L 3.5-5.1 L (test code = 379) CHLORIDE (BEAKER) 109 meq/L 98-107 H (test code = 382) CO2 (BEAKER) (test 25 meq/L 22-29 code = 355) BLOOD UREA 18 mg/dL 7-21 NITROGEN (BEAKER) (test code = 354) CREATININE 0.53 mg/dL 0.57-1.25 L (BEAKER) (test code = 358) GLUCOSE RANDOM 103 mg/dL 70-105 (BEAKER) (test code = 652) CALCIUM (BEAKER) 8.2 mg/dL 8.4-10.2 L (test code = 697) AST (SGOT) 79 U/L 5-34 H (BEAKER) (test code = 353) ALT (SGPT) 25 U/L 6-55 (BEAKER) (test code = 347) EGFR (BEAKER) 124 Interpretatio n of eGFR (test code = 1092) mL/min/1.[address] age Description sq m Result G1 Maddie l or high >=90 G2 Mildly decreased 60-89 G3a Mildl y to moderately 45-5 9 G3b Moderately to s everely 30-44 G4 Severl y decreased 15-29 G5 Kidney failure <15Reported eGF R is based on the CKD-EPI 2021 equation that d oes not use a race coefficientEsti mated GFR is not as accur ate as Creatinine Ana antoni in predicting glom erular filtration rate . Estimated GFR is not appl icable for dialysis patien ts Oil Fire Specialist ID - ADMINSpecimen moderately ictericLACTIC ACID, [id number] 03:32:34 Test Item Value Reference Range Interpretation Comments LACTATE BLOOD VENOUS 1.99 mmol/L 0.50-2.20 Specime n slightly (2) (BEAKER) (test hemolyzed code = 7469) Oil Fire Specialist ID - ADMINSpecimen cally ictericRAD, CHEST, 1 VIEW, NON DEPT 2022-03-03 03:25:00Reason for exam:->verify ETT placementShould this be performed at the bedside?->Yes [facility] 1985 Sex: FFINAL REPORT History: verify ETT placement. Comparison: None. Findings: A single view of the chest is submitted. The tip of an endotracheal tube is 2.1 cm above the lillie. A feeding tube tip overlies the left upper quadrant. The cardiomediastinal contours are unremarkable. There is extensive airspace opacity centered on the perihilar, mid and upper lungs, suggestive of pulmonary edema. Multifocal pneumonitis should be excluded clinically. There is no pneumothorax or large pleural effusion. There is dextroscoliosis of the thoracic spine without acute osseous abnormality. Signed: Jagdeep Salguero MDRbridgeport hospital Verified Date/Time: 03/03/2022 03:25:13 RAD, ABDOMEN/KUB, 1 VIEW [id number] 03:15:00Reason for exam:->verify [place] placementShould this be performed at the bedside?->Yes [facility] : 1985 Sex: FFINAL REPORT Supine abdomen 03/03/2022. HISTORY: Dobbhoff tube placement. IMPRESSION: Dobbhoff feeding tube with the tip projecting over the mid to distal stomach. Signed: Christopher Willard Verified Date/Time: 03/03/2022 03:15:16 Electronically signed by: Jess WONG 03/03/2022 03:15 [id number] 03:07:49 Test Item Value Reference Range Interpretation Comments FIBRINOGEN LEVEL (BEAKER) (test 106 mg/dl 225-434 L code = 658) CBC (HEMOGRAM ONLY)2022-03-03 03:03:17 Test Item Value Reference Range Interpretation Comments WHITE BLOOD CELL COUNT (BEAKER) 12.2 K/ L 3.5-10.5 H (test code = 775) RED BLOOD CELL COUNT (BEAKER) 2.79 M/ L 3.93-5.22 L (test code = 761) HEMOGLOBIN (BEAKER) (test code = 8.8 GM/DL 11.2-15.7 L 410) HEMATOCRIT (BEAKER) (test code = 28.0 % 34.1-44.9 L 411) MEAN CORPUSCULAR VOLUME (BEAKER) 100.4 fL 79.4-94.8 H (test code = 753) MEAN CORPUSCULAR HEMOGLOBIN 31.5 pg 25.6-32.2 (BEAKER) (test code = 751) MEAN CORPUSCULAR HEMOGLOBIN CONC 31.4 GM/DL 32.2-35.5 L (BEAKER) (test code = 752) RED CELL DISTRIBUTION WIDTH 23.6 % 11.7-14.4 H (BEAKER) (test code = 412) PLATELET COUNT (BEAKER) (test code 90 K/CU MM 150-450 L = 756) MEAN PLATELET VOLUME (BEAKER) 12.1 fL 9.4-12.3 (test code = 754) NUCLEATED RED BLOOD CELLS (BEAKER) 0 /100 WBC 0-0 (test code = 413) [id number] 03:02:45 Test Item Value Reference Range Interpretation Comments PARTIAL THROMBOPLASTIN TIME 40.9 seconds 22.5-36.0 H (BEAKER) (test code = 760) PROTHROMBIN [id number] 03:02:07 Test Item Value Reference Range Interpretation Comments PROTIME (BEAKER) 29.1 seconds 11.9-14.2 H (test code = 759) INR (BEAKER) (test 2.97 See_Comment [Automat ed message] code = 370) The system [employer] generated this result transmitted ref erence range: <=5.90. The reference range was not used to int erpret this result as normal/abnormal . RECOMMENDED COUMADIN/WARFARIN INR THERAPY RANGESSTANDARD DOSE: 2.0 - 3.0 Includes: PROPHYLAXIS for venous thrombosis, systemic embolization; TREATMENT for venous thrombosis and/or pulmonary embolus.HIGH RISK: Target INR is 2.5-3.5 for patients with mechanical heart valves.Hepatitis A antibody, [id number] 02:22:40 Test Item Value Reference Range Interpretation Comments Hep A IgM (test code = Nonreactive Nonreactive 71347-8) SONIA (test code = SONIA) [employer]ist ID - PIDEE L Lab Interpretation (test Normal code = 27397-3) [facility], [id number] 02:22:40 Test Item Value Reference Range Interpretation Comments HEPATITIS A IGM ANTIBODY (BEAKER) Nonreactive Nonreactive (test code = 498) [employer]ist ID - GEOVANNA LHepatitis C [id number] 02:22:39 Test Item Value Reference Range Interpretation Comments Hepatitis C Ab (test Nonreactive Nonreactive code = 87889-6) SONIA (test code = SONIA) Oil Fire Specialist ID - PIAYA L Lab Interpretation (test Normal code = 13199-1) [facility] [id number] 02:22:39 Test Item Value Reference Range Interpretation Comments HEPATITIS C ANTIBODY (BEAKER) Nonreactive Nonreactive (test code = 367) [employer] Specialist ID - GEOVANNA LHepatitis B surface [id number] 02:22:34 Test Item Value Reference Range Interpretation Comments Hepatitis B surface Nonreactive Nonreactive antigen (test code = 5195-3) SONIA (test code = SONIA) Specimen is considered negative for HBsAg. Lab Interpretation (test Normal code = 66676-3) [facility] antibody, [id number] 02:22:34 Test Item Value Reference Range Interpretation Comments Hep B C IgM (test code = Nonreactive Nonreactive 31856-9) SONIA (test code = SONIA) Oil Fire Specialist ID - GEOVANNA L Lab Interpretation (test Normal code = 99755-9) [facility] SURFACE [id number] 02:22:34 Test Item Value Reference Range Interpretation Comments HEPATITIS B SURFACE ANTIGEN (2) Nonreactive Nonreactive (BEAKER) (test code = 2585) Specimen is considered negative for HBsAg.HEPATITIS B CORE ANTIBODY, IGM 2022-02-28 02:22:34 Test Item Value Reference Range Interpretation Comments HEPATITIS B CORE IGM ANTIBODY Nonreactive Nonreactive (BEAKER) (test code = 645) [employer] Fire Specialist ID - GEOVANNA LEthanol [id number] 10:53:00 Test Item Value Reference Range Interpretation Comments Ethanol (test code 199 mg/dL The pharm acological = ETOH) response to blo od alcohol levels mayvary from individual to i ndividual. The fatal bakari ntrationhas been reported t o be >400mg/dL. Ethanol [id number] 06:15:00 Test Item Value Reference Range Interpretation Comments Ethanol (test code 287 mg/dL The pharm acological = ETOH) response to blo od alcohol levels mayvary from individual to i ndividual. The fatal bakari ntrationhas been reported t o be >400mg/dL. Ethanol [id number] 02:50:00 Test Item Value Reference Range Interpretation Comments Ethanol (test code 324 mg/dL The pharm acological = ETOH) response to blo od alcohol levels mayvary from individual to i ndividual. The fatal bakari ntrationhas been reported t o be >400mg/dL. Urine [id number] 20:45:00 Test Item Value Reference Range Interpretation Comments RBC,Urine (test code = 0-2 /HPF 0-2 URBC.PROGRAM ASSOCIATE) WBC,Urine (test code = 0-5 /HPF 0-5 UWBC.PROGRAM ASSOCIATE) Bacteria,Urine (test Few /HPF None Seen A code = UBACT.PROGRAM ASSOCIATE) Squamous Epithelial 0-5 /HPF 0-5 Cell,Urine (test code = USQEPI.PROGRAM ASSOCIATE) Hyaline Casts,Urine None Seen /HPF None Seen (test code = UHYALC.XX) Reviewed (test code = Manual Micr Reviewed [facility]) UF REFLEXUF REFLEXUA, Urinalysis Rflx Cult/[id number] 20:45:00 Test Item Value Reference Range Interpretation Comments Color,Urine (test code = UCOL) Dark Yellow Yellow A Clarity,Urine (test code = Clear Clear UCLAR) Ph, Urine (test code = UPH) 7.0 5.0-9.0 N Specific Hodges,Urine (test >= 1.030 1.005-1.030 N code = USG) Blood,Urine (test code = UBLD) Negative mg/dL Negative Protein,Urine (test code = Negative mg/dL Negative UPRO) Glucose,Urine (UA) (test code Negative mg/dL Negative = UGLU) Ketones,Urine (test code = Negative mg/dL Negative UKET) Nitrate,Urine (test code = Positive Negative A UNIT) Bilirubin,Urine (test code = Negative mg/dL Negative UBIL) Urobilinogen,Urine (test code 1.0 E.U./dL Normal = UURO) Leukocyte Esterase,Urine (test Small mg/dL Negative A code = ULEU) UF REFLEXUF REFLEXDrug Screen,[id number] 20:45:00 Test Item Value Reference Range Interpretation Comments PCP Phencyclidine Screen,Urine (test Negative Negative code = PCPU) Amphetamine Screen,Urine (test code Negative Negative = AMPU) Methadone Screen,Urine (test code = Negative Negative METHU) Opiate Screen,Urine (test code = Negative Negative UOPIS) Barbituates Screen,Urine (test code Negative Negative = BARBU) Benzodiazepines Screen,Urine (test Positive Negative A code = UBENZS) Cocaine Screen,Urine (test code = Negative Negative UCOCS) Cannabinoid Screen,Urine (test code Negative Negative = UTHCS) Propoxyphene Screen, Urine (test Negative Negative code = UPROP) HCG, Urine Qual (LAB)2022-01-21 20:45:00 Test Item Value Reference Range Interpretation Comments HCG, Urine, Qual (test code = HCGU) Negative Negative Comprehensive Metabolic [id number] 20:45:00 Test Item Value Reference Range Interpretation Comments SODIUM (test code = NA) 138.0 mmol/L 136.0-145.0 N Potassium,K (test code = K) 3.2 mmol/L 3.0-5.1 N Chloride (test code = CL) 102 mmol/L 98-107 N Carbon Dioxide (test code = CO2) 26 mmol/L 20-31 N Anion Gap (test code = GAP) 10 mmol/L 5-15 N Blood Urea Nitrogen (test code = < 5 mg/dL 9-23 L BUN) Creatinine (test code = CREATT) 0.64 mg/dL 0.55-1.02 N Creatinine Clr Calc Pharmacy 85.22 mL/min (test code = CRCLPHA) Estimated GFR ( Nanda > 60 mL/min/1.73m2 (test code = EGFRAA) Estimated GFR (Non Afr Nanda > 60 mL/min/1.73m2 (test code = EGFRNAA) BUN/Creatinine Ratio (test code 8 ratio 10-20 L = BCRATIO) Glucose (test code = GLU) 173 mg/dL 74-106 H Osmolality,Calculated (test code 286.7 = OSMOC) Calcium (test code = CA) 7.8 mg/dL 8.3-10.6 L Bilirubin,Total (test code = 2.3 mg/dL 0.2-1.1 H BILIT) Aspartate Amino Transferase 150 U/L 0-34 H (test code = AST) Alanine Aminotransferase (test 29 U/L 10-49 N code = ALT) Total Protein (test code = TP) 6.7 g/dL 5.7-8.2 N Albumin Level (test code = ALB) 2.6 g/dL 3.2-4.8 L Globulin (test code = GLOB) 4.1 mg/dL 2.3-3.5 H Albumin/Globulin Ratio (test 0.6 ratio 0.8-2.0 L code = AGRATIO) Alkaline Phosphatase (test code 280 U/L 46-116 H = ALP) Ethanol [id number] 20:45:00 Test Item Value Reference Range Interpretation Comments Ethanol (test code 442 mg/dL HH Critical value called to = ETOH) piper back by Malik TODD[] on: 0 01/21/22 at 2221by BNM17.Th e pharmacological response to blood alcoho l levels mayvary from in dividual to individual. The fatal concentrationha s been reported to be >400mg/dL. Complete Blood Count Auto [id number] 20:45:00 Test Item Value Reference Range Interpretation Comments White Blood Count (test code = 7.2 x10 3/uL 4.4-10.5 N WBCT) Red Blood Count (test code = 4.13 x10 6/uL 3.75-5.20 N RBC) Hemoglobin (test code = HGBT) 12.3 g/dL 12.2-14.8 N Hematocrit (test code = HCTT) 37.6 % 36.5-44.4 N Mean Corpuscular Volume (test 91.00 fL 80.00-100.00 N code = MCV) Mean Corpuscular Hemoglobin 29.8 pg 27.0-32.5 N (test code = MCH) Mean Corpuscular HGB Conc 32.70 g/dL 32.00-37.50 N (test code = MCHC) RDW Coefficient of Variation 18.1 % 11.5-14.5 H (test code = RDWCV) Platelet Count (test code = 122.0 x10 3/uL 140.0-440.0 L PLTT) Mean Platelet Volume (test 9.5 fL code = MPV) Immature Granulocytes % (Auto) 0.1 % 0.0-5.0 N (test code = IMMGRAN%) Neutrophils % (Auto) (test 64.7 % 36.0-70.0 N code = NE%) Lymphocytes % (Auto) (test 28.5 % 12.0-44.0 N code = LY%) Monocytes % (Auto) (test code 5.7 % 0.0-11.0 N = MO%) Eosinophils % (Auto) (test 0.4 % 0.0-7.0 N code = EO%) Basophils % (Auto) (test code 0.6 % 0.0-2.0 N = BA%) Immature Granulocytes # (Auto) 0.01 x10 3/uL (test code = IMMGRAN#) Neutrophils # (Auto) (test 4.7 x10 3/uL 1.6-7.4 N code = NE#) Lymphocytes # (Auto) (test 2.05 x10 3/uL 0.50-4.60 N code = LY#) Monocytes # (Auto) (test code 0.41 x10 3/uL 0.00-1.20 N = MO#) Eosinophils # (Auto) (test 0.03 x10 3/uL 0.00-0.74 N code = EO#) Basophils # (Auto) (test code 0.04 x10 3/uL 0.00-0.21 N = BA#) nRBC Abs (test code = NRBCA) 0 nRBC Pct (test code = NRBCP) 0 % Coronavirus PCR, COVID19 [id number] 20:45:00 Test Item Value Reference Range Interpretation Comments Coronavirus PCR, For use under Emergency COVID19 Rapid (test Use Authorization (EUA) code = SARSCOV2) only. Coronavirus PCR, Reference Range: COVID19 Rapid (test Negative code = CPZMHFV09.1) SARS-CoV-2 PCR Result: Negative by RT-PCR (test code = SARS-CoV-2 PCR Result:) COVID-19 Status: [id number] Lead [id number] 16:30:0112 LEAD EKG FOR [facility] Test Date: [id number] Name: DIVINA Chow t: 5520Patient ID: [id number] Room: OTFGender: Education Spec: [id number]: 1985 Requested By: TAHIR Bañuelos Number: [id number] Reading MD: Cherri Matt MeasurementsIntervals [place] Rate: 122 P: 78PR: 118 QRS: 74QRSD: 82 T: 75QT: 337 QTc: 410 Interpretive StatementsSINUS TACHYCARDIA WITH SHORT SC INTERVALNONSPECIFIC T-WAVE ABNORMALITYABNORMAL RHYTHM ECGElectronically Signed On 01-10-2022 16:07:49 CDT by Cherri JonesKindred [facility] METABOLIC [id number] 08:24:00 Test Item Value Reference Range Interpretation [...] >3 months. [Automated mess age] The system Cvgram.me generated this result transmitted ref erence range: >=60. Th e reference range was not used to int erpret this result as normal/abnormal . CREATININE (test 0.40 mg/dL 0.55-1.02 L Note craig ge in code = CREAT) reference rang e due to change in reagent. BUN/CREATININE RATIO 14.3 10-20 N (test code = BUN/CREA) CALCIUM (test code = 8.2 mg/dL 8.5-10.1 L CA) [id number] 08:24:00 Test Item Value Reference Range Interpretation Comments MAGNESIUM (test code = MAG) 1.8 mg/dL 1.8-2.4 N UR OSMOLALITY [id number] 12:16:00 Test Item Value Reference Range Interpretation Comments UR OSMOLALITY RANDOM (test code = 420 mOsm/kg 48-962 N OSMOU) OSMOLALITY [id number] 12:16:00 Test Item Value Reference Range Interpretation Comments OSMOLALITY SERUM (test code = 271 mOsm/kg 275-295 L OSMO) 1355BASIC METABOLIC [id number] 06:15:00 Test Item Value Reference Range Interpretation [...] >3 months. [Automated mess age] The system Cvgram.me generated this result transmitted ref erence range: >=60. Th e reference range was not used to int erpret this result as normal/abnormal . CREATININE (test 0.40 mg/dL 0.55-1.02 L Note craig ge in code = CREAT) reference rang e due to change in reagent. BUN/CREATININE RATIO 12.8 10-20 N (test code = BUN/CREA) CALCIUM (test code = 7.7 mg/dL 8.5-10.1 L CA) [id number] 06:15:00 Test Item Value Reference Range Interpretation Comments PHOSPHORUS (test code = PHOS) 3.6 mg/dL 2.5-4.9 N [id number] 06:15:00 Test Item Value Reference Range Interpretation Comments MAGNESIUM (test code = MAG) 1.7 mg/dL 1.8-2.4 L OSMOLALITY [id number] 19:46:00 Test Item Value Reference Range Interpretation Comments OSMOLALITY SERUM (test code = 271 MOS/KG 275-295 L OSMO) [id number] OSMOLALITY [id number] 19:40:00 Test Item Value Reference Range Interpretation Comments UR OSMOLALITY RANDOM (test code = 420 MOS/KG 300-1000 N OSMOU) [id number] NA,[id number] 14:56:00 Test Item Value Reference Range Interpretation Comments UR NA,RANDOM (test code = SUN) 72 mmol/L 20-110 N UR OSMOLALITY [id number] 14:56:00 Test Item Value Reference Range Interpretation Comments UR OSMOLALITY RANDOM (test code = mOsm/kg 48-962 OSMOU) BASIC METABOLIC [id number] 05:32:00 Test Item Value Reference Range Interpretation [...] >3 months. [Automated mess age] The system Cvgram.me generated this result transmitted ref erence range: >=60. Th e reference range was not used to int erpret this result as normal/abnormal . CREATININE (test 0.30 mg/dL 0.55-1.02 L Note craig ge in code = CREAT) reference rang e due to change in reagent. BUN/CREATININE RATIO 15.6 10-20 N (test code = BUN/CREA) CALCIUM (test code = 7.4 mg/dL 8.5-10.1 L CA) [id number] 05:32:00 Test Item Value Reference Range Interpretation Comments PHOSPHORUS (test code = PHOS) 2.4 mg/dL 2.5-4.9 L [id number] 05:32:00 Test Item Value Reference Range Interpretation Comments MAGNESIUM (test code = MAG) 1.6 mg/dL 1.8-2.4 L BASIC METABOLIC [id number] 06:14:00 Test Item Value Reference Range Interpretation [...] >3 months. [Automated mess age] The system Cvgram.me generated this result transmitted ref erence range: >=60. Th e reference range was not used to int erpret this result as normal/abnormal . CREATININE (test code 0.40 mg/dL 0.55-1.02 L Note change in = CREAT) reference range due to change in reagent. BUN/CREATININE RATIO 12.8 10-20 N (test code = BUN/CREA) CALCIUM (test code = 6.9 mg/dL 8.5-10.1 L CA) [id number] 06:14:00 Test Item Value Reference Range Interpretation Comments MAGNESIUM (test code = MAG) 1.3 mg/dL 1.8-2.4 L COMPREHENSIVE METABOLIC [id number] 05:04:00 Test Item Value Reference Range Interpretation Comments SODIUM (test code = 130 mmol/L 136-145 L NA) POTASSIUM (test code 2.5 mmol/L 3.5-5.1 LL Results called to = K) [id number] by JAYSON PérezGP 12/31/21 0504Cr itical results verifie d and read back by Kelly brady? Y FOR ALL ICU PATIENT EXCLUDI NG HOLD PLEASE CALL [phone] CHLORIDE (test code = 99.0 mmol/L 98-107 [...] >3 months. [Automated mess age] The system Cvgram[employer]me generated this result transmitted ref erence range: [...] = 51.94 % 13-45 H FESAT) VITAMIN [id number] 05:04:00 Test Item Value Reference Range Interpretation Comments VITAMIN B12 (test code = VITB12) 3896 pg/mL 193-986 H TSH REFLEX TO [id number] 05:04:00 Test Item Value Reference Range Interpretation Comments TSH REFLEX TO FT4 (test code = 1.3 0.4-5.5 N TSHREFLEX) [id number] 05:04:00 Test Item Value Reference Range Interpretation Comments FERRITIN (test code = MARIANNE) 272 ng/mL 8-388 N LACTIC [id number] 04:50:00 Test Item Value Reference Range Interpretation Comments LACTIC ACID (test 2.9 mmol/L 0.4-1.9 HH Results ca lled to code = LACT) [id number] by JAYSON PérezGP 12/31/21 0450Cr itical results verifie d and read back by Nu rse? Y FOR ALL ICU PATIENT EXCLUDING HOLD PLEASE CALL [phone] CBC W/AUTO [id number] 04:18:00 Test Item Value Reference Range Interpretation [...] DIFF REQUIRED (test code NO = MDIFF) [id number] 21:11:00 Test Item Value Reference Range Interpretation Comments SODIUM (test code = NA) 130 mmol/L 136-145 L BASIC METABOLIC [id number] 14:49:00 Test Item Value Reference Range Interpretation Comments SODIUM (test code = 129 mmol/L 136-145 L RESULT V ERIFIED BY NA) REPEAT ANALYSIS POTASSIUM (test code 2.5 mmol/L 3.5-5.1 LL Results called to = K) [id number] by 11 Q5539 12/30/21 1447Cr itical results verifie d and read back by Kelly rse? Y FOR ALL ICU PATIENT EXCLUDI NG HOLD PLEASE CALL [phone] CHLORIDE (test code 100.0 mmol/L 98-107 N [...] >3 months. [Automated mess age] The system Cvgram.me generated this result transmitted ref erence range: [...] 7.4 mg/dL 8.5-10.1 L CA) COMPREHENSIVE METABOLIC [id number] 08:42:00 Test Item Value Reference Range Interpretation Comments SODIUM (test code = 137 mmol/L 136-145 RESULT V ERIFIED BY NA) REPEAT ANALYSIS POTASSIUM (test code 2.2 mmol/L 3.5-5.1 LL Results called to = K) [id number] by 2QUZ 5695 12/30/21 0839Critical re sults verified and re ad back by Nurse? YRESULT VERIFIE D BY REPEAT ANALYSIS FOR ALL ICU PATIENT EXCLUDI NG HOLD PLEASE CALL * [phone] CHLORIDE (test code = 107.0 mmol/L 98-107 [...] >3 months. [Automated mess age] The system Cvgram.me generated this result transmit afshin reference range [...] range due ALKP) to change in reagent. [id number] 08:42:00 Test Item Value Reference Range Interpretation Comments PHOSPHORUS (test code = PHOS) 3.0 mg/dL 2.5-4.9 N [id number] 08:42:00 Test Item Value Reference Range Interpretation Comments MAGNESIUM (test code = MAG) 1.8 mg/dL 1.8-2.4 N CBC W/AUTO [id number] 03:29:00 Test Item Value Reference Range Interpretation [...] = 0.00 K/mm3 0.0-0.1 N NRBC#) LACTIC [id number] 21:59:00 Test Item Value Reference Range Interpretation Comments LACTIC ACID (test 4.2 mmol/L 0.4-1.9 HH Results ca lled to code = LACT) [id number] by Vertos MedicalKENJI B.LT 12/29/212158Cr itical results verifie d and read back by Nu rse? Y FOR ALL ICU PATIENT EXCLUDING HOLD PLEASE CALL [phone] BASIC METABOLIC [id number] 21:59:00 Test Item Value Reference Range Interpretation Comments SODIUM (test code = 129 mmol/L 136-145 L NA) POTASSIUM (test code 2.3 mmol/L 3.5-5.1 LL Results called to = K) [id number] by Vertos MedicalKENJI B. 12/29/212158Cr itical results verifie d and read back by Nu rse? Y FOR ALL ICU PATIENT EXCLUDI NG HOLD PLEASE CALL [phone] CHLORIDE (test code = 96.0 mmol/L 98-107 [...] >3 months. [Automated mess age] The system Cvgram.me generated this result transmitted ref erence range: >=60. Th e reference range was not used to int erpret this result as normal/abnormal . CREATININE (test code 2.20 mg/dL 0.55-1.02 H Note change in = CREAT) reference range due to change in reagent. BUN/CREATININE RATIO 5.9 10-20 L (test code = BUN/CREA) CALCIUM (test code = 6.9 mg/dL 8.5-10.1 L CA) HEPATIC FUNCTION [id number] 21:59:00 Test Item Value Reference Range Interpretation [...] range due ALKP) to change in reagent. [id number] 21:50:00 Test Item Value Reference Range Interpretation Comments AMMONIA (test code = AMM) 55 umol/L 11-32 H - US ABDOMEN [id number] 18:33:00 [facility]Name: DIVINA OBRIEN : 1985 Sex: F Name: DIVINA OBRIEN [facility] : 1985 Age/S: 36 / F [address] Unit #: [id number] Loc: [place] [address] Phys: Alexis Fitzpatrick DO Acct: [id number] Dis Date: Status: ADM IN PHONE #: [phone] Exam Date: 12/29/20211805 FAX #: [phone] Reason: CIRRHOSIS, EVALUATE FOR ASCITES, ORGANOMEGALY EXAMS: CPT CODE: [id number] US ABDOMEN COMPLETE 24342 REASON FOR EXAM: CIRRHOSIS, EVALUATE FOR ASCITES, ORGANOMEGALY EXAM ORDER DATE: 12/29/2021 4:10 PM Attending Emely: Alexis Fitzpatrick DO PROCEDURE: - US ABDOMEN [...] defects in visualized duct. Gallbladder: Stones/sludge: No in traluminal stones or sludge. Wall: 1.9 mm in thickness. No discontinuity. No polyps. No pericholecystic fluid. No hyperemia. Sonographic Whitmore's sign: Negative Portal vein: Portal vein caliber is within normal limits. Portal vein is patent with hepatopetal flow. Pancreas: Incompletely visualized. However the visualized portions are grossly within normal limits. Right kidney: parenchyma echogenicity:Normal echogenicity size: 11 x 4.6 x 5.8 cm stones: none cysts/masses: none hydronephrosis: none PAGE 1 Signed Report (CONTINUED) Name: DIVINA OBRIEN [facility] : 1985 Age/S: 36 / F [address] Unit #: [id number] Loc: [place] [address] Phys: Alexis Fitzpatrick DO Acct: [id number] Dis Date: Status: ADM IN PHONE #: [phone] Exam Date: 12/29/2021 180 FAX #: [phone] Reason: CIRRHOSIS, EVALUATE FOR ASCITES, ORGANOMEGALY EXAMS: CPT CODE: [id number] US ABDOMEN COMPLETE 65375 (Continued) Left kidney: parenchyma echogenicity: Normal echogenicity size: 11 x 4.9 x 4.6 cm stones: none cysts/masses: none hydronephrosis: none Spleen: size: 9.2 cm cysts/masses: Parenchyma is sonographically unremarkable. Ascites/pleural effusions: None IMPRESSION: Hepatomegaly with hepatic steatosis. No ascites. Location: at 1833 Reported and signed by: London Madrid M.D. CC: Alexis Fitzpatrick DO Technologist: Celsa Cage Trnscb Date/Time: 12/29/2021 (1832) [id number] Orig Print D/T: S: 12/29/2021 (1835) Probe: PAGE 2 Signed ReportPROTHROMBIN TIME 2021-12-29 18:00:00 Test Item Value Reference Range Interpretation [...] valves (2.5-3.5) IS PATIENT ON ANTICOAGULANTS? NURINALYSIS [id number] 17:45:00 Test Item Value Reference Range Interpretation Comments UA COLOR (test code = YELLOW YELLOW COLU) UA APPEARANCE (test Cloudy CLEAR A IS THE S AMPLE code = APPU) FROM ER OR L&D? ER IF THE ANSWER I S NO,PLEASE DOCUMENT TWO RN SIGNATURES HERE - by [id number] 12/29/21 1744 UA GLUCOSE DIPSTICK NEGATIVE mg/dL [...] FEW A MUCU) Urine Source? Clean CatchLACTIC [id number] 15:30:00 Test Item Value Reference Range Interpretation Comments LACTIC ACID (test 5.9 mmol/L 0.4-1.9 HH Results ca lled to code = LACT) [id number] by JAYSON BOYD 12/29/21 1530Cr itical results verifie d and read back by Nu rse? Y FOR ALL ICU PATIENT EXCLUDING HOLD PLEASE CALL [phone] [id number] 15:18:00 Test Item Value Reference Range Interpretation Comments MAGNESIUM (test code = MAG) 1.0 mg/dL 1.8-2.4 L BASIC METABOLIC [id number] 15:18:00 Test Item Value Reference Range Interpretation Comments SODIUM (test code = 121 mmol/L 136-145 LL Results called to DR THIBODEAUX) AGBABIAKAby V.L AB.LT 12/29/21 1517Cr itical results verifie d and read back by Nu rse? Y POTASSIUM (test code 1.9 mmol/L 3.5-5.1 LL Results called to = K) AGBABIAKAby V.L AB.LT 12/29/21 1517Cr itical results verifie d and read back by Nu rse? Y FOR ALL ICU PATIENT EXCLUDI NG HOLD PLEASE CALL [phone] CHLORIDE (test code = 90.0 mmol/L 98-107 L CL) CARBON DIOXIDE (test 23.0 mmol/L 21-32 N code = CO2) ANION GAP (test code 9.9 10-20 L = GAP) GLUCOSE (test code = 107 mg/dL 74-106 H GLU) BLOOD UREA NITROGEN 9 mg/dL 7-18 N (test code = BUN) GLOMERULAR FILTRATION 23 mL/min See_Comment Estima afshin GFR by RATE (test code = using May fied MDRD GFR) formula.Chronic kidney disease is defined as eith er kidney damageor GFR <60 mL/min/1.73 m2 for >3 months. [Automated mess age] The system Cvgram.me generated this result transmitted ref erence range: [...] 8.5-10.1 LL Results called to DR STEFANIE ZAVALA.LT 12/29/21 1518Cr itical results verifie d and read back by Nu rse? Y CREATINE KINASE (CK)2021-12-29 15:18:00 Test Item Value Reference Range Interpretation Comments CREATINE KINASE (CK) (test code = 67 IUnit/L 26-208 N CK) [id number] 15:07:00 Test Item Value Reference Range Interpretation Comments PHOSPHORUS (test code = PHOS) 2.5 mg/dL 2.5-4.9 N CBC W/O [id number] 14:26:00 Test Item Value Reference Range Interpretation [...] N = MPV) - CT HEAD/BRAIN W/O [id number] 14:16:00 [facility]Name: DIVINA OBRIEN : 1985 Sex: F Name: DIVINA OBRIEN [facility] : 1985 Age/S: 36 / F [address] [facility] Unit #: [id number] Loc: [place] [address] Phys: Mana Biggs MD Acct: [id number] Dis Date: Status: REG ER PHONE #: [phone] Exam Date: 12/29/2021 1403 FAX #: [phone] Reason: weakness of bilat LE EXAMS: CPT CODE: [id number] CT HEAD/BRAIN W/O CONT 37234 HISTORY: weakness of bilat LE TECHNIQUE: Noncontrast [...] signs of white matter small-vessel disease. No hydrocephal us.. No extra-axial fluid collection. Visualized paranasal sinuses are clear. Mastoid air cells andmiddle ear cavities are clear. Orbital contents are unremarkable. IMPRESSION: Negative CT head. Location: [facility] at 1416 Reported and signed by: Rd Avitia MD CC: Mana Biggs MD Technologist:Annie Beck,RT(R),CT CTDI: DLP: Trnscb Date/Time: 12/29/2021 (858) TonyR.RR31 Orig Print D/T: S: 12/29/2021 (3894) PAGE 1 Signed Report- XR CHEST 1 [id number] 13:51:00 [facility])Name: DIVINA OBRIEN : 1985 Sex: F FAX: Mana Ritter [phone] [place]: B St: REG Name: DIVINA OBRIEN [facility] : 1985 Age/S:36/F [address] [facility] Unit #: [id number] Loc: [place] [address] Phys: Mana Biggs MD Acct: [id number] Dis Date: Status: REG ER PHONE #: [phone] Exam Date: 12/29/2021 8357 FAX #: [phone] Reason: weakness EXAMS: CPT CODE: [id number] XR CHEST 1 V 42846 REASON FOR EXAM: weaknessExam Order Date: 12/29/2021 1:12 PM Ordering MJulio C: Mana Biggs MD PROCEDURE: - XR CHEST 1 V COMPARISON: None FINDINGS: The lungs are clear. There is no pleural effusion or pneumothorax. Pulmonary vascularity is within normal limits. Cardiomediastinal silhouette is normal in size for technique. The mediastinal contours are within normal limits. Levoscoliosis of the spine. The visualized upper abdomen is within normal limits. IMPRESSION: No acute cardiopulmonary process. Severe dextroscoliosisof the thoracic spine. Location: [facility] at 1351 Reported and signed by: Rd Avitia MD CC: Mana Biggs MD Technologist: JERAMY FAGAN JR RT(R); STUDENT TECHNOLOGIST Trnscrd Date/Time/By: 12/29/2021 (0482) : By: [email or web address] Orig Print D/T: S: 12/29/2021 (3702) PAGE 1 Signed ReportCOMP. METABOLIC PANEL ([id number])2020-11-20 09:27:15 Test Item Value Reference Range Interpretation Comments NA (test code = 135 mmol/L 135-145 5862260474) K (test code = 4.0 mmol/L 3.5-5.0 8437041216) CL (test code = 99 mmol/L 98-108 3041157717) CO2 TOTAL (test code 29 mmol/L 23-31 = 2195608482) AGAP (test code = 7 2-16 6797022184) BUN (test code = 9 mg/dL 7-23 6809250710) GLUCOSE (test code = 97 mg/dL 70-110 1093020232) CREATININE (test code 0.53 mg/dL 0.50-1.04 = 2590129060) TOTAL BILI (test code 0.4 mg/dL 0.1-1.1 = 7462564670) CALCIUM (test code = 9.1 mg/dL 8.6-10.6 7777197154) T PROTEIN (test code 7.0 g/dL 6.3-8.2 = 9716066103) ALBUMIN (test code = 4.0 g/dL 3.5-5.0 3051321817) ALK PHOS (test code = 52 U/L 34-122 2307463098) ALTv (test code = 13 U/L 5-35 1742-6) AST(SGOT) (test code 27 U/L 13-40 = 0989991176) eGFR (test code = 132.0 mL/min/1.73m2 8029531914) SONIA (test code = SONIA) Association of [...] or urine or abnormalities in imaging tests). [id number] 09:27:00 Test Item Value Reference Range Interpretation Comments POCT PREG (test code = 1605) negative On board controls acceptable with C present Line (test code = 3574) Lab Interpretation (test code = Normal 08296-4) [facility] UNCONJUGATED/BILI [id number] 09:26:34 Test Item Value Reference Range Interpretation Comments BILI CONJ (test code = 7304551751) 0.0 mg/dL 0.0-0.3 BILI UNCON (test code = 0852582097) 0.2 mg/dL 0.1-1.1 Lab Interpretation (test code = Normal 44426-9) [facility] Center[facility] / [id number] 09:18:33 Test Item Value Reference Range Interpretation Comments PROTIME PATIENT (test 12.4 See_Comment [Auto mated message] code = 5964-2) The system [employer] generated this result transmitted ref erence range: 12.0 - 1 4.7 Seconds. The re ference range was not u sed to interpret this result as normal/abnor mal. INR (test code = 6301-6) 1.0 Nor mal INR <1.1; Warfarin Therap eutic range 2.0 to 3. 0 or 2.5 to 3.5, dep ending upon the indica tions. Lab Interpretation (test Normal code = 12508-3) [facility] WITH [id number] 09:03:56 Test Item Value Reference Range Interpretation [...] (test code = 51.1 fL 39.0-49.9 H 12391-0) RDW-CV (test code = 22.0 % 12.0-15.5 H 788-0) PLT (test code = 268 See_Comment [Automated 777-3) message] The sy stem which generated this result transmitted reference range : 166 - 358 10*3/ ?L. The reference r yvonne was not used to interpret this result as normal/abnormal . MPV (test code = 9.4 fL 9.5-12.9 L 25202-3) NRBC/100 WBC (test 0.0 See_Comment [Automat ed code = 6831611727) message] The system which generated this result transmitted reference range : 0.0 - 10.0 /100 WBCs. The refer ence range was not u sed to interpret th is result as normal/abnormal . NRBC x10^3 (test code <0.01 See_Comment [Auto mated = 9212728178) message] The s ystem which generated this result transmitted reference range : 10*3/?L. The reference range was not used to interpret this result as normal/abnormal . GRAN MAT (NEUT) % 65.0 % (test code = 770-8) IMM GRAN % (test code 0.30 % = 8340204051) LYMPH % (test code = 25.5 % 736-9) MONO % (test code = 7.4 % 5905-5) EOS % (test code = 0.9 % 713-8) BASO % (test code = 0.9 % 706-2) GRAN MAT x10^3(ANC) 4.47 10*3/uL 1.88-7.09 (test code = 8416016609) IMM GRAN x10^3 (test <0.03 0.00-0.06 code = 7669346186) LYMPH x10^3 (test code 1.75 10*3/uL 1.32-3.29 = 731-0) MONO x10^3 (test code 0.51 10*3/uL 0.33-0.92 = 742-7) EOS x10^3 (test code = 0.06 10*3/uL 0.03-0.39 711-2) BASO x10^3 (test code 0.06 10*3/uL 0.01-0.07 = 704-7) Lab Interpretation Abnormal (test code = 79934-0) [facility] Center[facility] ([facility]ATED)2020-11-20 08:38:55 Test Item Value Reference Range Interpretation Comments POCT GLU (test code = 0253355387) 104 mg/dL 70-110 Lab Interpretation (test code = Normal 21138-8) [facility] CenterANEMIA [id number] 21:41:00 Test Item Value Reference Range Interpretation Comments Iron (test code = Iron) 11 [facility]2021-03-01 21:41:00 Test Item Value Reference Range Interpretation Comments TIBC (test code = TIBC) 285 [facility]2021-03-01 21:41:00 Test Item Value Reference Range Interpretation Comments % Satur Fe (test code = % Satur Fe) 4 [facility]2021-03-01 21:41:00 Test Item Value Reference Range Interpretation Comments Iron (test code = Iron) 11 [facility]2021-03-01 21:41:00 Test Item Value Reference Range Interpretation Comments TIBC (test code = TIBC) 285 [facility]2021-03-01 21:41:00 Test Item Value Reference Range Interpretation Comments % Satur Fe (test code = % Satur Fe) 4 [facility]2021-03-01 09:48:00 Test Item Value Reference Range Interpretation Comments Lipase Lvl (test code = Lipase Lvl) 679 73-393 [place] 485121-03-01 09:48:00 Test Item Value Reference Range Interpretation Comments Glucose Lvl (test code = Glucose Lvl) 74 70-99 [place] 485121-03-01 09:48:00 Test Item Value Reference Range Interpretation Comments BUN (test code = BUN) 10 7-22 [place] 485121-03-01 09:48:00 Test Item Value Reference Range Interpretation Comments Creatinine Lvl (test code = Creatinine 0.49 0.50-1.40 Lvl) [facility]2021-03-01 09:48:00 Test Item Value Reference Range Interpretation Comments Sodium Lvl (test code = Sodium Lvl) 136 135-145 [facility]2021-03-01 09:48:00 Test Item Value Reference Range Interpretation Comments Potassium Lvl (test code = Potassium 3.0 3.5-5.1 Lvl) [place] 485121-03-01 09:48:00 Test Item Value Reference Range Interpretation Comments Chloride Lvl (test code = Chloride Lvl) 99 95-109 [place] 485121-03-01 09:48:00 Test Item Value Reference Range Interpretation Comments CO2 (test code = CO2) 33 24-32 [place] 485121-03-01 09:48:00 Test Item Value Reference Range Interpretation Comments AGAP (test code = AGAP) 7.0 10.0-20.0 [place] 485121-03-01 09:48:00 Test Item Value Reference Range Interpretation Comments Calcium Lvl (test code = Calcium Lvl) 8.4 8.5-10.5 [place] 485121-03-01 09:48:00 Test Item Value Reference Range Interpretation Comments B/C Ratio (test code = B/C Ratio) 20 1 6-25 [place] 485121-03-01 09:48:00 Test Item Value Reference Range Interpretation Comments Total Protein (test code = Total 5.8 6.4-8.4 Protein) [place] 485121-03-01 09:48:00 Test Item Value Reference Range Interpretation Comments Albumin Lvl (test code = Albumin Lvl) 2.4 3.5-5.0 [place] 485121-03-01 09:48:00 Test Item Value Reference Range Interpretation Comments Globulin (test code = Globulin) 3.4 2.7-4.2 [place] 485121-03-01 09:48:00 Test Item Value Reference Range Interpretation Comments A/G Ratio (test code = A/G Ratio) 0.7 1 0.7-1.6 [place] [address]-03-01 09:48:00 Test Item Value Reference Range Interpretation Comments ALT (test code = ALT) 27 See_Comment [Auto mated message] The system which ge nerated this result transmit afshin reference range : <=65. The reference range was not used to interpr et this result as maddie l/abnormal. [place] 485121-03-01 09:48:00 Test Item Value Reference Range Interpretation Comments AST (test code = AST) 36 See_Comment [Auto mated message] The system which ge nerated this result transmit afshin reference range : <=37. The reference range was not used to interpr et this result as maddie l/abnormal. [place] 485121-03-01 09:48:00 Test Item Value Reference Range Interpretation Comments Alk Phos (test code = Alk Phos) 57 39-136 [place] 485121-03-01 09:48:00 Test Item Value Reference Range Interpretation Comments Bili Total (test code = Bili Total) 0.4 0.2-1.3 [place] 485121-03-01 09:48:00 Test Item Value Reference Range Interpretation Comments eGFR (test code = eGFR) 127 [place] 485121-03-01 09:48:00 Test Item Value Reference Range Interpretation Comments Magnesium Lvl (test code = Magnesium 2.2 1.8-2.4 Lvl) [facility]2021-03-01 09:48:00 Test Item Value Reference Range Interpretation Comments Phosphorus (test code = Phosphorus) 3.4 2.5-4.5 [place] 228191-03-01 09:48:00 Test Item Value Reference Range Interpretation Comments Segs (test code = Segs) 56.4 45.0-75.0 [place] 228191-03-01 09:48:00 Test Item Value Reference Range Interpretation Comments Lymphocytes (test code = Lymphocytes) 32.0 20.0-40.0 [place] [address]-03-01 09:48:00 Test Item Value Reference Range Interpretation Comments Monocytes (test code = Monocytes) 7.6 2.0-12.0 [place] 228191-03-01 09:48:00 Test Item Value Reference Range Interpretation Comments Eosinophils (test code = 3.2 See_Comment [A utomated message] The Eosinophils) system which ge nerated this result tra nsmitted reference range : <=4.0. The reference r yvonne was not used to int erpret this result as normal/abnormal . [place] 228191-03-01 09:48:00 Test Item Value Reference Range Interpretation Comments Basophils (test code = 0.8 See_Comment [Aut omated message] The Basophils) system which ge nerated this result tra nsmitted reference range : <=1.0. The reference r yvonne was not used to int erpret this result as normal/abnormal . [place] 228191-03-01 09:48:00 Test Item Value Reference Range Interpretation Comments Neutrophils # (test code = Neutrophils 2.3 1.5-8.1 #) [place] 228191-03-01 09:48:00 Test Item Value Reference Range Interpretation Comments Lymphocytes # (test code = Lymphocytes 1.3 1.0-5.5 #) [place] 228191-03-01 09:48:00 Test Item Value Reference Range Interpretation Comments Monocytes # (test code 0.3 See_Comment [Aut omated message] The = Monocytes #) system which generated this result tra nsmitted reference range : <=0.8. The reference r yvonne was not used to int erpret this result as normal/abnormal . [facility]CaimhncXNXBRYIHRQ1037-90-10 09:48:00 Test Item Value Reference Range Interpretation Comments Eosinophils # (test code 0.1 See_Comment [A utomated message] The = Eosinophils #) system whic h generated this result tra nsmitted reference range : <=0.5. The reference r yvonne was not used to int erpret this result as normal/abnormal . [facility] CenterDmbinptPSDDJKTDFI3453-08-02 09:48:00 Test Item Value Reference Range Interpretation Comments Microcyte (test code = 3+ *NA*(09/14/20 3:48 Microcyte) AM) [place] 228191-03-01 09:48:00 Test Item Value Reference Range Interpretation Comments WBC (test code = WBC) 4.1 3.7-10.4 [place] 228191-03-01 09:48:00 Test Item Value Reference Range Interpretation Comments RBC (test code = RBC) 3.58 4.20-5.40 [place] 228191-03-01 09:48:00 Test Item Value Reference Range Interpretation Comments Hgb (test code = Hgb) 7.1 12.0-16.0 [place] 228191-03-01 09:48:00 Test Item Value Reference Range Interpretation Comments Hct (test code = Hct) 22.5 36.0-48.0 [place] 228191-03-01 09:48:00 Test Item Value Reference Range Interpretation Comments MCV (test code = MCV) 62.8 80.0-98.0 [facility] CenterYimzfvaZXCLQLNSSG4003-37-75 09:48:00 Test Item Value Reference Range Interpretation Comments MCH (test code = MCH) 19.8 pg 27.0-31.0 [place] 228191-03-01 09:48:00 Test Item Value Reference Range Interpretation Comments MCHC (test code = MCHC) 31.5 32.0-36.0 [facility] CenterJevfoglHPUXWYHBMR4250-05-72 09:48:00 Test Item Value Reference Range Interpretation Comments RDW (test code = RDW) 23.2 11.5-14.5 [place] 228191-03-01 09:48:00 Test Item Value Reference Range Interpretation Comments Platelet (test code = Platelet) 239 133-450 [facility]87 09:48:00 Test Item Value Reference Range Interpretation Comments MPV (test code = MPV) 8.4 7.4-10.4 [facility]2021-03-01 09:48:00 Test Item Value Reference Range Interpretation Comments Lipase Lvl (test code = Lipase Lvl) 679 73-393 [facility]2021-03-01 09:48:00 Test Item Value Reference Range Interpretation Comments Glucose Lvl (test code = Glucose Lvl) 74 70-99 [facility]2021-03-01 09:48:00 Test Item Value Reference Range Interpretation Comments BUN (test code = BUN) 10 7-22 [place] 485121-03-01 09:48:00 Test Item Value Reference Range Interpretation Comments Creatinine Lvl (test code = Creatinine 0.49 0.50-1.40 Lvl) [facility]2021-03-01 09:48:00 Test Item Value Reference Range Interpretation Comments Sodium Lvl (test code = Sodium Lvl) 136 135-145 [facility]2021-03-01 09:48:00 Test Item Value Reference Range Interpretation Comments Potassium Lvl (test code = Potassium 3.0 3.5-5.1 Lvl) [facility]2021-03-01 09:48:00 Test Item Value Reference Range Interpretation Comments Chloride Lvl (test code = Chloride Lvl) 99 95-109 [facility]2021-03-01 09:48:00 Test Item Value Reference Range Interpretation Comments CO2 (test code = CO2) 33 24-32 [facility]2021-03-01 09:48:00 Test Item Value Reference Range Interpretation Comments AGAP (test code = AGAP) 7.0 10.0-20.0 [place] 485121-03-01 09:48:00 Test Item Value Reference Range Interpretation Comments Calcium Lvl (test code = Calcium Lvl) 8.4 8.5-10.5 [facility]2021-03-01 09:48:00 Test Item Value Reference Range Interpretation Comments B/C Ratio (test code = B/C Ratio) 20 1 6-25 [place] 485121-03-01 09:48:00 Test Item Value Reference Range Interpretation Comments Total Protein (test code = Total 5.8 6.4-8.4 Protein) [place] 485121-03-01 09:48:00 Test Item Value Reference Range Interpretation Comments Albumin Lvl (test code = Albumin Lvl) 2.4 3.5-5.0 [place] 485121-03-01 09:48:00 Test Item Value Reference Range Interpretation Comments Globulin (test code = Globulin) 3.4 2.7-4.2 [place] 485121-03-01 09:48:00 Test Item Value Reference Range Interpretation Comments A/G Ratio (test code = A/G Ratio) 0.7 1 0.7-1.6 [place] [address]-03-01 09:48:00 Test Item Value Reference Range Interpretation Comments ALT (test code = ALT) 27 See_Comment [Auto mated message] The system which ge nerated this result transmit afshin reference range : <=65. The reference range was not used to interpr et this result as maddie l/abnormal. [place] 485121-03-01 09:48:00 Test Item Value Reference Range Interpretation Comments AST (test code = AST) 36 See_Comment [Auto mated message] The system which ge nerated this result transmit afshin reference range : <=37. The reference range was not used to interpr et this result as maddie l/abnormal. [place] 485121-03-01 09:48:00 Test Item Value Reference Range Interpretation Comments Alk Phos (test code = Alk Phos) 57 39-136 [place] 485121-03-01 09:48:00 Test Item Value Reference Range Interpretation Comments Bili Total (test code = Bili Total) 0.4 0.2-1.3 [place] 485121-03-01 09:48:00 Test Item Value Reference Range Interpretation Comments eGFR (test code = eGFR) 127 [place] 485121-03-01 09:48:00 Test Item Value Reference Range Interpretation Comments Magnesium Lvl (test code = Magnesium 2.2 1.8-2.4 Lvl) [place] 485121-03-01 09:48:00 Test Item Value Reference Range Interpretation Comments Phosphorus (test code = Phosphorus) 3.4 2.5-4.5 [place] 228191-03-01 09:48:00 Test Item Value Reference Range Interpretation Comments Segs (test code = Segs) 56.4 45.0-75.0 [place] 228191-03-01 09:48:00 Test Item Value Reference Range Interpretation Comments Lymphocytes (test code = Lymphocytes) 32.0 20.0-40.0 [place] 228191-03-01 09:48:00 Test Item Value Reference Range Interpretation Comments Monocytes (test code = Monocytes) 7.6 2.0-12.0 [place] [address]-03-01 09:48:00 Test Item Value Reference Range Interpretation Comments Eosinophils (test code = 3.2 See_Comment [A utomated message] The Eosinophils) system which ge nerated this result tra nsmitted reference range : <=4.0. The reference r yvonne was not used to int erpret this result as normal/abnormal . [place] 228191-03-01 09:48:00 Test Item Value Reference Range Interpretation Comments Basophils (test code = 0.8 See_Comment [Aut omated message] The Basophils) system which ge nerated this result tra nsmitted reference range : <=1.0. The reference r yvonne was not used to int erpret this result as normal/abnormal . [place] 228191-03-01 09:48:00 Test Item Value Reference Range Interpretation Comments Neutrophils # (test code = Neutrophils 2.3 1.5-8.1 #) [place] 228191-03-01 09:48:00 Test Item Value Reference Range Interpretation Comments Lymphocytes # (test code = Lymphocytes 1.3 1.0-5.5 #) [place] 228191-03-01 09:48:00 Test Item Value Reference Range Interpretation Comments Monocytes # (test code 0.3 See_Comment [Aut omated message] The = Monocytes #) system which generated this result tra nsmitted reference range : <=0.8. The reference r yvonne was not used to int erpret this result as normal/abnormal . [place] 228191-03-01 09:48:00 Test Item Value Reference Range Interpretation Comments Eosinophils # (test code 0.1 See_Comment [A utomated message] The = Eosinophils #) system whic h generated this result tra nsmitted reference range : <=0.5. The reference r yvonne was not used to int erpret this result as normal/abnormal . [facility] CenterLcrrboeUJLLYDZKDZ8374-04-51 09:48:00 Test Item Value Reference Range Interpretation Comments Microcyte (test code = 3+ *NA*(09/14/20 3:48 Microcyte) AM) [facility] CenterZbvvsblJSCUSDNAMN8352-19-70 09:48:00 Test Item Value Reference Range Interpretation Comments WBC (test code = WBC) 4.1 3.7-10.4 [facility] CenterWikmeooKTJHVABVBL9451-38-43 09:48:00 Test Item Value Reference Range Interpretation Comments RBC (test code = RBC) 3.58 4.20-5.40 [facility] CenterUlrazqcUQYHZCVPEP2369-89-78 09:48:00 Test Item Value Reference Range Interpretation Comments Hgb (test code = Hgb) 7.1 12.0-16.0 [facility] CenterThlacqxTJAHFSUBXS5924-06-68 09:48:00 Test Item Value Reference Range Interpretation Comments Hct (test code = Hct) 22.5 36.0-48.0 [facility] CenterFfecvxwMNDCEVTWRF3483-62-17 09:48:00 Test Item Value Reference Range Interpretation Comments MCV (test code = MCV) 62.8 80.0-98.0 [facility] CenterJsqolvtDMEAEDALSN8814-71-90 09:48:00 Test Item Value Reference Range Interpretation Comments MCH (test code = MCH) 19.8 pg 27.0-31.0 [facility] CenterUeubiyxCTQCTZHYIC2012-49-76 09:48:00 Test Item Value Reference Range Interpretation Comments MCHC (test code = MCHC) 31.5 32.0-36.0 [facility] CenterOrsttneBCKDATMXJL3803-19-72 09:48:00 Test Item Value Reference Range Interpretation Comments RDW (test code = RDW) 23.2 11.5-14.5 [facility] CenterXoefgpjLUWHAYCXMU0559-43-00 09:48:00 Test Item Value Reference Range Interpretation Comments Platelet (test code = Platelet) 239 133-450 [facility] CenterZufolthLOZMLOOLEM8338-01-32 09:48:00 Test Item Value Reference Range Interpretation Comments MPV (test code = MPV) 8.4 7.4-10.4 [facility]2021-02-28 22:56:00 Test Item Value Reference Range Interpretation Comments Iron (test code = Iron) 12 [facility]2021-02-28 22:56:00 Test Item Value Reference Range Interpretation Comments TIBC (test code = TIBC) 311 [facility]2021-02-28 22:56:00 Test Item Value Reference Range Interpretation Comments % Satur Fe (test code = % Satur Fe) 4 [facility]2021-02-28 22:56:00 Test Item Value Reference Range Interpretation Comments Lactic Acid Lvl (test code = Lactic 1.2 0.5-2.2 Acid Lvl) [facility]ND[facility]SSFG1668-01-87 22:56:00 Test Item Value Reference Range Interpretation Comments Coronavirus (COVID-19) Not Detected (09/13/20 OLLIE (test code = 4:56 PM) Coronavirus (COVID-19) OLLIE) [facility]2021-02-28 22:56:00 Test Item Value Reference Range Interpretation Comments Iron (test code = Iron) 12 [facility]2021-02-28 22:56:00 Test Item Value Reference Range Interpretation Comments TIBC (test code = TIBC) 311 [facility]2021-02-28 22:56:00 Test Item Value Reference Range Interpretation Comments % Satur Fe (test code = % Satur Fe) 4 [facility]2021-02-28 22:56:00 Test Item Value Reference Range Interpretation Comments Lactic Acid Lvl (test code = Lactic 1.2 0.5-2.2 Acid Lvl) [facility]iscoHyjahyjCMXJHNKZPL3603-87-78 22:56:00 Test Item Value Reference Range Interpretation Comments Coronavirus (COVID-19) Not Detected (09/13/20 OLLIE (test code = 4:56 PM) Coronavirus (COVID-19) OLLIE) [facility] AND [id number] 20:59:00 Test Item Value Reference Range Interpretation Comments UA Bacteria (test code = UA Many /HPF Bacteria) [facility] AND [id number] 20:59:00 Test Item Value Reference Range Interpretation Comments UA Mucus (test code = UA Mucus) Many /LPF [facility] AND [id number] 20:59:00 Test Item Value Reference Range Interpretation Comments UA Hyal Cast (test 49 See_Comment [Automat ed message] The code = UA Hyal Cast) system which generated this result transmit afshin reference range : <=2. The reference range was not used to interpr et this result as maddie l/abnormal. [facility] AllianceCulture: [id number] 20:59:00 Test Item Value Reference Range Interpretation Comments Culture: Urine >100,000 CFU/mL Gram (test code = Negative Rods Culture: Urine) Identification And Sensitivity Pending [facility] AND [id number] 20:59:00 Test Item Value Reference Range Interpretation Comments UA Color (test code = Teresa *ABN*(09/13/20 UA Color) 2:59 PM) [facility] AND [id number] 20:59:00 Test Item Value Reference Range Interpretation Comments UA Turbidity (test code Marked *ABN*(09/13/20 = UA Turbidity) 2:59 PM) [facility] AND [id number] 20:59:00 Test Item Value Reference Range Interpretation Comments UA Spec Grav (test code = UA Spec 1.027 1 Grav) [facility] AND [id number] 20:59:00 Test Item Value Reference Range Interpretation Comments UA pH (test code = UA pH) 5.0 1 5.0-8.0 [facility] AND [id number] 20:59:00 Test Item Value Reference Range Interpretation Comments UA Protein (test code = UA Protein) 30 mg/dL [facility] AND [id number] 20:59:00 Test Item Value Reference Range Interpretation Comments UA Glucose (test code = UA Negative mg/dL Glucose) [facility] AND [id number] 20:59:00 Test Item Value Reference Range Interpretation Comments UA Ketones (test code = UA Negative mg/dL Ketones) [facility] AND [id number] 20:59:00 Test Item Value Reference Range Interpretation Comments UA Bili (test code = Negative *NA*(09/13/20 UA Bili) 2:59 PM) [facility] AND [id number] 20:59:00 Test Item Value Reference Range Interpretation Comments UA Blood (test code = Negative (09/13/20 2:59 [facility]A Blood) PM) [facility] [id number] 20:59:00 Test Item Value Reference Range Interpretation Comments UA Urobilinogen (test code = UA 2.0 0.1-1.0 Urobilinogen) [facility] [id number] 20:59:00 Test Item Value Reference Range Interpretation Comments UA Nitrite (test code Positive *ABN*(09/13/20 = UA Nitrite) 2:59 PM) [facility] [id number] 20:59:00 Test Item Value Reference Range Interpretation Comments UA Leuk Est (test Moderate *ABN*(09/13/20 code = UA Leuk Est) 2:59 PM) [facility] [id number] 20:59:00 Test Item Value Reference Range Interpretation Comments UA Sq Epi (test code = UA Sq Epi) Few /LPF [facility] AND [id number] 20:59:00 Test Item Value Reference Range Interpretation Comments UA WBC (test code = 157 See_Comment [Automa afshin message] The UA WBC) system which ge nerated this result transmit afshin reference range : <=5. The reference range was not used to interpr et this result as maddie l/abnormal. [facility] AND [id number] 20:59:00 Test Item Value Reference Range Interpretation Comments UA RBC (test code = 18 See_Comment [Automa afshin message] The UA RBC) system which ge nerated this result transmit afshin reference range : <=2. The reference range was not used to interpr et this result as maddie l/abnormal. [facility] [id number] 20:59:00 Test Item Value Reference Range Interpretation Comments UA Color (test code = Teresa *ABN*(09/13/20 UA Color) 2:59 PM) [facility]INE AND [id number] 20:59:00 Test Item Value Reference Range Interpretation Comments UA Turbidity (test code Marked *ABN*(09/13/20 = UA Turbidity) 2:59 PM) [facility] [id number] 20:59:00 Test Item Value Reference Range Interpretation Comments UA Spec Grav (test code = UA Spec 1.027 1 Grav) [facility] AND [id number] 20:59:00 Test Item Value Reference Range Interpretation Comments UA pH (test code = UA pH) 5.0 1 5.0-8.0 [facility] AND [id number] 20:59:00 Test Item Value Reference Range Interpretation Comments UA Protein (test code = UA Protein) 30 mg/dL [facility] AND [id number] 20:59:00 Test Item Value Reference Range Interpretation Comments UA Glucose (test code = UA Negative mg/dL Glucose) [facility] AND [id number] 20:59:00 Test Item Value Reference Range Interpretation Comments UA Ketones (test code = UA Negative mg/dL Ketones) [facility] AND [id number] 20:59:00 Test Item Value Reference Range Interpretation Comments UA Bili (test code = Negative *NA*(09/13/20 UA Bili) 2:59 PM) [facility] AND [id number] 20:59:00 Test Item Value Reference Range Interpretation Comments UA Blood (test code = Negative (09/13/20 2:59 UA Blood) PM) [facility] AND [id number] 20:59:00 Test Item Value Reference Range Interpretation Comments UA Urobilinogen (test code = UA 2.0 0.1-1.0 Urobilinogen) [facility] AND [id number] 20:59:00 Test Item Value Reference Range Interpretation Comments UA Nitrite (test code Positive *ABN*(09/13/20 = UA Nitrite) 2:59 PM) [facility] AND [id number] 20:59:00 Test Item Value Reference Range Interpretation Comments UA Leuk Est (test Moderate *ABN*(09/13/20 code = UA Leuk Est) 2:59 PM) [facility] AND [id number] 20:59:00 Test Item Value Reference Range Interpretation Comments UA Sq Epi (test code = UA Sq Epi) Few /LPF [facility] AND [id number] 20:59:00 Test Item Value Reference Range Interpretation Comments UA WBC (test code = 157 See_Comment [Automa afshin message] The UA WBC) system which ge nerated this result transmit afshin reference range : <=5. The reference range was not used to interpr et this result as maddie l/abnormal. [facility] AND [id number] 20:59:00 Test Item Value Reference Range Interpretation Comments UA RBC (test code = 18 See_Comment [Automa afshin message] The UA RBC) system which ge nerated this result transmit afshin reference range : <=2. The reference range was not used to interpr et this result as maddie l/abnormal. [facility] AND [id number] 20:59:00 Test Item Value Reference Range Interpretation Comments UA Bacteria (test code = UA Many /HPF Bacteria) [facility] AND [id number] 20:59:00 Test Item Value Reference Range Interpretation Comments UA Mucus (test code = UA Mucus) Many /LPF [facility] AND [id number] 20:59:00 Test Item Value Reference Range Interpretation Comments UA Hyal Cast (test 49 See_Comment [Automat ed message] The code = UA Hyal Cast) system which generated this result transmit afshin reference range : <=2. The reference range was not used to interpr et this result as maddie l/abnormal. [facility]: [id number] 20:59:00 Test Item Value Reference Range Interpretation Comments Culture: Urine >100,000 CFU/mL Gram (test code = Negative Rods Culture: Urine) Identification And Sensitivity Pending [facility]2021-02-28 19:51:00 Test Item Value Reference Range Interpretation Comments Glucose Lvl (test code = Glucose Lvl) 91 70-99 [facility]2021-02-28 19:51:00 Test Item Value Reference Range Interpretation Comments BUN (test code = BUN) 14 7-22 [facility]2021-02-28 19:51:00 Test Item Value Reference Range Interpretation Comments Creatinine Lvl (test code = Creatinine 0.68 0.50-1.40 Lvl) [facility]2021-02-28 19:51:00 Test Item Value Reference Range Interpretation Comments Sodium Lvl (test code = Sodium Lvl) 130 135-145 [facility]2021-02-28 19:51:00 Test Item Value Reference Range Interpretation Comments Potassium Lvl (test code = Potassium 4.1 3.5-5.1 Lvl) [facility]2021-02-28 19:51:00 Test Item Value Reference Range Interpretation Comments Chloride Lvl (test code = Chloride Lvl) 95 95-109 [place] 485121-02-28 19:51:00 Test Item Value Reference Range Interpretation Comments CO2 (test code = CO2) 32 24-32 [place] 485121-02-28 19:51:00 Test Item Value Reference Range Interpretation Comments Calcium Lvl (test code = Calcium Lvl) 8.7 8.5-10.5 [place] 485121-02-28 19:51:00 Test Item Value Reference Range Interpretation Comments Total Protein (test code = Total 7.4 6.4-8.4 Protein) [place] 485121-02-28 19:51:00 Test Item Value Reference Range Interpretation Comments Albumin Lvl (test code = Albumin Lvl) 3.2 3.5-5.0 [facility]2021-02-28 19:51:00 Test Item Value Reference Range Interpretation Comments ALT (test code = ALT) 37 See_Comment [Auto mated message] The system which ge nerated this result transmit afshin reference range : <=65. The reference range was not used to interpr et this result as maddie l/abnormal. [facility]2021-02-28 19:51:00 Test Item Value Reference Range Interpretation Comments AST (test code = AST) 48 See_Comment [Auto mated message] The system which ge nerated this result transmit afshin reference range : <=37. The reference range was not used to interpr et this result as maddie l/abnormal. [facility]2021-02-28 19:51:00 Test Item Value Reference Range Interpretation Comments Alk Phos (test code = Alk Phos) 72 39-136 [place] 485121-02-28 19:51:00 Test Item Value Reference Range Interpretation Comments Bili Total (test code = Bili Total) 0.4 0.2-1.3 [place] 485121-02-28 19:51:00 Test Item Value Reference Range Interpretation Comments AGAP (test code = AGAP) 7.1 10.0-20.0 [place] 485121-02-28 19:51:00 Test Item Value Reference Range Interpretation Comments B/C Ratio (test code = B/C Ratio) 21 1 6-25 [facility] [id number] 19:51:00 Test Item Value Reference Range Interpretation Comments Globulin (test code = Globulin) 4.2 2.7-4.2 [place] 485121-02-28 19:51:00 Test Item Value Reference Range Interpretation Comments A/G Ratio (test code = A/G Ratio) 0.8 1 0.7-1.6 [place] 485121-02-28 19:51:00 Test Item Value Reference Range Interpretation Comments eGFR (test code = eGFR) 114 [place] 485121-02-28 19:51:00 Test Item Value Reference Range Interpretation Comments Lipase Lvl (test code = Lipase Lvl) 4020 73-393 [place] 485121-02-28 19:51:00 Test Item Value Reference Range Interpretation Comments Ammonia (test code = Ammonia) 24.0 [place] 485121-02-28 19:51:00 Test Item Value Reference Range Interpretation Comments Lactic Acid Lvl (test code = Lactic 2.6 0.5-2.2 Acid Lvl) [place] 386011-02-28 19:51:00 Test Item Value Reference Range Interpretation Comments S Preg (test code = S Negative *NA*(09/13/20 Preg) 1:51 PM) [place] 228191-02-28 19:51:00 Test Item Value Reference Range Interpretation Comments WBC (test code = WBC) 7.5 3.7-10.4 [place] 228191-02-28 19:51:00 Test Item Value Reference Range Interpretation Comments RBC (test code = RBC) 4.01 4.20-5.40 [place] 228191-02-28 19:51:00 Test Item Value Reference Range Interpretation Comments Hgb (test code = Hgb) 7.8 12.0-16.0 [place] [address]-02-28 19:51:00 Test Item Value Reference Range Interpretation Comments Hct (test code = Hct) 24.9 36.0-48.0 [place] 228191-02-28 19:51:00 Test Item Value Reference Range Interpretation Comments MCV (test code = MCV) 62.2 80.0-98.0 [place] 228191-02-28 19:51:00 Test Item Value Reference Range Interpretation Comments MCH (test code = MCH) 19.6 pg 27.0-31.0 [facility] [id number] 19:51:00 Test Item Value Reference Range Interpretation Comments MCHC (test code = MCHC) 31.5 32.0-36.0 [place] 228191-02-28 19:51:00 Test Item Value Reference Range Interpretation Comments RDW (test code = RDW) 22.6 11.5-14.5 [place] 228191-02-28 19:51:00 Test Item Value Reference Range Interpretation Comments Platelet (test code = Platelet) 277 133-450 [place] 228191-02-28 19:51:00 Test Item Value Reference Range Interpretation Comments MPV (test code = MPV) 8.1 7.4-10.4 [place] 228191-02-28 19:51:00 Test Item Value Reference Range Interpretation Comments RBC Morph (test code = See Note (09/13/20 1:51 RBC Morph) PM) [facility] CenterXbjxrylMQDLGFGPFM9161-15-86 19:51:00 Test Item Value Reference Range Interpretation Comments Plt Morph (test code = Normal (09/13/20 1:51 Plt Morph) PM) [facility] CenterHgtapvzICRJDSEEQV4936-37-20 19:51:00 Test Item Value Reference Range Interpretation Comments Segs (test code = Segs) 75.9 45.0-75.0 [facility] CenterXwetjijJHRNCKDDRB6466-94-69 19:51:00 Test Item Value Reference Range Interpretation Comments Lymphocytes (test code = Lymphocytes) 13.6 20.0-40.0 [facility] CenterOyfqrixGGJTCVVICT8003-97-05 19:51:00 Test Item Value Reference Range Interpretation Comments Monocytes (test code = Monocytes) 7.4 2.0-12.0 [place] 228191-02-28 19:51:00 Test Item Value Reference Range Interpretation Comments Eosinophils (test code = 2.6 See_Comment [A utomated message] The Eosinophils) system which ge nerated this result tra nsmitted reference range : <=4.0. The reference r yvonne was not used to int erpret this result as normal/abnormal . [facility] CenterHqipdicEGTEADNKKE1069-63-04 19:51:00 Test Item Value Reference Range Interpretation Comments Basophils (test code = 0.5 See_Comment [Aut omated message] The Basophils) system which ge nerated this result tra nsmitted reference range : <=1.0. The reference r yvonne was not used to int erpret this result as normal/abnormal . [facility] CenterQwifimcYTSUUSHDNE3359-68-51 19:51:00 Test Item Value Reference Range Interpretation Comments Neutrophils # (test code = Neutrophils 5.7 1.5-8.1 #) [place] 228191-02-28 19:51:00 Test Item Value Reference Range Interpretation Comments Lymphocytes # (test code = Lymphocytes 1.0 1.0-5.5 #) [place] 228191-02-28 19:51:00 Test Item Value Reference Range Interpretation Comments Monocytes # (test code 0.6 See_Comment [Aut omated message] The = Monocytes #) system which generated this result tra nsmitted reference range : <=0.8. The reference r yvonne was not used to int erpret this result as normal/abnormal . [facility] CenterHjtgmwbRUQVQJQWTS0241-01-59 19:51:00 Test Item Value Reference Range Interpretation Comments Eosinophils # (test code 0.2 See_Comment [A utomated message] The = Eosinophils #) system whic h generated this result tra nsmitted reference range : <=0.5. The reference r yvonne was not used to int erpret this result as normal/abnormal . [facility] CenterRpsnhrxAHJYPGPGQM4973-26-08 19:51:00 Test Item Value Reference Range Interpretation Comments Anisocyte (test code = 2+ *ABN*(09/13/20 Anisocyte) 1:51 PM) [place] 228191-02-28 19:51:00 Test Item Value Reference Range Interpretation Comments Microcyte (test code = 2+ *ABN*(09/13/20 Microcyte) 1:51 PM) [place] [address]-02-28 19:51:00 Test Item Value Reference Range Interpretation Comments Hypochrom (test code = 1+ (09/13/20 1:51 PM) Hypochrom) [facility]2021-02-28 19:51:00 Test Item Value Reference Range Interpretation Comments Glucose Lvl (test code = Glucose Lvl) 91 70-99 [place] 485121-02-28 19:51:00 Test Item Value Reference Range Interpretation Comments BUN (test code = BUN) 14 7-22 [place] 485121-02-28 19:51:00 Test Item Value Reference Range Interpretation Comments Creatinine Lvl (test code = Creatinine 0.68 0.50-1.40 Lvl) [place] 485121-02-28 19:51:00 Test Item Value Reference Range Interpretation Comments Sodium Lvl (test code = Sodium Lvl) 130 135-145 [place] 485121-02-28 19:51:00 Test Item Value Reference Range Interpretation Comments Potassium Lvl (test code = Potassium 4.1 3.5-5.1 Lvl) [place] 485121-02-28 19:51:00 Test Item Value Reference Range Interpretation Comments Chloride Lvl (test code = Chloride Lvl) 95 95-109 [place] 485121-02-28 19:51:00 Test Item Value Reference Range Interpretation Comments CO2 (test code = CO2) 32 24-32 [place] 485121-02-28 19:51:00 Test Item Value Reference Range Interpretation Comments Calcium Lvl (test code = Calcium Lvl) 8.7 8.5-10.5 [facility]2021-02-28 19:51:00 Test Item Value Reference Range Interpretation Comments Total Protein (test code = Total 7.4 6.4-8.4 Protein) [facility]2021-02-28 19:51:00 Test Item Value Reference Range Interpretation Comments Albumin Lvl (test code = Albumin Lvl) 3.2 3.5-5.0 [place] 485121-02-28 19:51:00 Test Item Value Reference Range Interpretation Comments ALT (test code = ALT) 37 See_Comment [Auto mated message] The system which ge nerated this result transmit afshin reference range : <=65. The reference range was not used to interpr et this result as maddie l/abnormal. [place] 485121-02-28 19:51:00 Test Item Value Reference Range Interpretation Comments AST (test code = AST) 48 See_Comment [Auto mated message] The system which ge nerated this result transmit afshin reference range : <=37. The reference range was not used to interpr et this result as maddie l/abnormal. [address]02-28 19:51:00 Test Item Value Reference Range Interpretation Comments Alk Phos (test code = Alk Phos) 72 39-136 [place] 485121-02-28 19:51:00 Test Item Value Reference Range Interpretation Comments Bili Total (test code = Bili Total) 0.4 0.2-1.3 [facility]2021-02-28 19:51:00 Test Item Value Reference Range Interpretation Comments AGAP (test code = AGAP) 7.1 10.0-20.0 [facility]2021-02-28 19:51:00 Test Item Value Reference Range Interpretation Comments B/C Ratio (test code = B/C Ratio) 21 1 6-25 [place] 485121-02-28 19:51:00 Test Item Value Reference Range Interpretation Comments Globulin (test code = Globulin) 4.2 2.7-4.2 [facility]2021-02-28 19:51:00 Test Item Value Reference Range Interpretation Comments A/G Ratio (test code = A/G Ratio) 0.8 1 0.7-1.6 [place] 485121-02-28 19:51:00 Test Item Value Reference Range Interpretation Comments eGFR (test code = eGFR) 114 [facility]2021-02-28 19:51:00 Test Item Value Reference Range Interpretation Comments Lipase Lvl (test code = Lipase Lvl) 4020 73393 [facility]2021-02-28 19:51:00 Test Item Value Reference Range Interpretation Comments Ammonia (test code = Ammonia) 24.0 [facility]2021-02-28 19:51:00 Test Item Value Reference Range Interpretation Comments Lactic Acid Lvl (test code = Lactic 2.6 0.5-2.2 Acid Lvl) [facility]JdguexhMTRHFAUXNBHPD0098-88-83 19:51:00 Test Item Value Reference Range Interpretation Comments S Preg (test code = S Negative *NA*(09/13/20 Preg) 1:51 PM) [facility] CenterFqxddgsHZAWRODHGJ1824-90-02 19:51:00 Test Item Value Reference Range Interpretation Comments WBC (test code = WBC) 7.5 3.7-10.4 [facility] CenterXxzvahzHGRPAYVMVH4650-59-27 19:51:00 Test Item Value Reference Range Interpretation Comments RBC (test code = RBC) 4.01 4.20-5.40 [facility] CenterUdgpipkXIPUUCIPAC3961-30-23 19:51:00 Test Item Value Reference Range Interpretation Comments Hgb (test code = Hgb) 7.8 12.0-16.0 [place] 228191-02-28 19:51:00 Test Item Value Reference Range Interpretation Comments Hct (test code = Hct) 24.9 36.0-48.0 [facility] CenterBvlmrspEAUOBBSRTU3937-51-39 19:51:00 Test Item Value Reference Range Interpretation Comments MCV (test code = MCV) 62.2 80.0-98.0 [facility] CenterOdgfslwLEBBZQEZLF6122-18-97 19:51:00 Test Item Value Reference Range Interpretation Comments MCH (test code = MCH) 19.6 pg 27.0-31.0 [facility] CenterWokytylYJASKSOATC3954-54-24 19:51:00 Test Item Value Reference Range Interpretation Comments MCHC (test code = MCHC) 31.5 32.0-36.0 [facility] CenterLlpstdoRMSLELIHAP0151-66-16 19:51:00 Test Item Value Reference Range Interpretation Comments RDW (test code = RDW) 22.6 11.5-14.5 [facility] CenterSljpmxvSBSPNCNXWV2380-40-39 19:51:00 Test Item Value Reference Range Interpretation Comments Platelet (test code = Platelet) 277 133-450 [facility] CenterOusakqsYAHFKCOXRK8480-50-21 19:51:00 Test Item Value Reference Range Interpretation Comments MPV (test code = MPV) 8.1 7.4-10.4 [facility] CenterEjvgowpXFUCVLIONG9288-27-00 19:51:00 Test Item Value Reference Range Interpretation Comments RBC Morph (test code = See Note (09/13/20 1:51 RBC Morph) PM) [facility] CenterMpdiheqEHEEXKCONH5907-81-64 19:51:00 Test Item Value Reference Range Interpretation Comments Plt Morph (test code = Normal (09/13/20 1:51 Plt Morph) PM) [facility] CenterYtgqzskXNFXINLTFM4077-25-30 19:51:00 Test Item Value Reference Range Interpretation Comments Segs (test code = Segs) 75.9 45.0-75.0 [facility] CenterQtptckuPBVGBMKPNJ1934-32-57 19:51:00 Test Item Value Reference Range Interpretation Comments Lymphocytes (test code = Lymphocytes) 13.6 20.0-40.0 [facility] CenterZiycsteTQIPOVMBPE7789-12-46 19:51:00 Test Item Value Reference Range Interpretation Comments Monocytes (test code = Monocytes) 7.4 2.0-12.0 [facility] CenterOedqodxJCZYHJUAQF7776-82-06 19:51:00 Test Item Value Reference Range Interpretation Comments Eosinophils (test code = 2.6 See_Comment [A utomated message] The Eosinophils) system which ge nerated this result tra nsmitted reference range : <=4.0. The reference r yvonne was not used to int erpret this result as normal/abnormal . [facility] CenterDxwrgssKJQZQVGFBB8734-71-03 19:51:00 Test Item Value Reference Range Interpretation Comments Basophils (test code = 0.5 See_Comment [Aut omated message] The Basophils) system which ge nerated this result tra nsmitted reference range : <=1.0. The reference r yvonne was not used to int erpret this result as normal/abnormal . [facility] CenterJclluzgOFDPGLJVAA7490-30-74 19:51:00 Test Item Value Reference Range Interpretation Comments Neutrophils # (test code = Neutrophils 5.7 1.5-8.1 #) [facility] CenterRkklcpoEMWJRWFLKN6496-18-88 19:51:00 Test Item Value Reference Range Interpretation Comments Lymphocytes # (test code = Lymphocytes 1.0 1.0-5.5 #) [facility] CenterFskjoyzVJVIJXVGGF6130-66-06 19:51:00 Test Item Value Reference Range Interpretation Comments Monocytes # (test code 0.6 See_Comment [Aut omated message] The = Monocytes #) system which generated this result tra nsmitted reference range : <=0.8. The reference r yvonne was not used to int erpret this result as normal/abnormal . [facility] CenterAakmldjURQGKHTLYX3581-14-32 19:51:00 Test Item Value Reference Range Interpretation Comments Eosinophils # (test code 0.2 See_Comment [A utomated message] The = Eosinophils #) system whic h generated this result tra nsmitted reference range : <=0.5. The reference r yvonne was not used to int erpret this result as normal/abnormal . [facility] CenterClxuzmeWBYOZXCHAP8861-88-19 19:51:00 Test Item Value Reference Range Interpretation Comments Anisocyte (test code = 2+ *ABN*(09/13/20 Anisocyte) 1:51 PM) [facility] CenterOvenddoDCUOBBGTBO7755-76-59 19:51:00 Test Item Value Reference Range Interpretation Comments Microcyte (test code = 2+ *ABN*(09/13/20 Microcyte) 1:51 PM) [facility] CenterFdbgcdnGSYGRQLMAP1787-46-23 19:51:00 Test Item Value Reference Range Interpretation Comments Hypochrom (test code = 1+ (09/13/20 1:51 PM) Hypochrom) [facility]
--- NOTE | 2022-03-30 14:03 | RAD REPORT ---
EXAM DESCRIPTION: CTAbdomen Pelvis Wo Contrast - 03/30/2022 1:40 pm CLINICAL HISTORY: abd pain, cirrhosis, recent paracentesis COMPARISON: Abdomen Pelvis W Contrast dated 04/28/2021; Chest For Pe Angio dated 03/02/2022 TECHNIQUE: CT of the abdomen and pelvis was performed. All CT scans are performed using dose optimization technique as appropriate and may include automated exposure control or mA/KV adjustment according to patient size. FINDINGS: Lower chest: Mild to moderate hiatal hernia. Small left pleural effusion. Liver: Hepatic steatosis. Biliary: Cholelithiasis. Stomach: No significant focal abnormality. Duodenum: No significant focal abnormality. Pancreas: No significant abnormality. Spleen: No significant abnormality. Adrenal: No suspicious lesions. Kidney/ureter: No hydronephrosis. No renal calculi. Retroperitoneum: No retroperitoneal adenopathy. Vascular: No aneurysm. Bowel: Colonic wall thickening and small bowel wall thickening is noted.. Peritoneum: Large volume of ascites. The ascites has filled units are consistent with simple fluid. R eportedly, the patient had a recent paracentesis and pain afterwards. This does not have the appearan ce of hemoperitoneum. Bladder: Grossly unremarkable. Reproductive: No adnexal masses. Bones: No acute fracture. Other: Body wall edema. IMPRESSION: 1. Cirrhosis with evidence of portal hypertension including large volume of ascites. 2. Diffuse small bowel and colonic wall thickening is probably a manifestation of portal hypertension including portal colopathy.
[2022-03-30 14:06] LABS: SARS-CoV-2 Antigen Rapid Res Negative (Negative)
[2022-03-30 14:11] LABS: Absolute Lymphocytes (CBC) 2.1 K/uL (0.7-4.9); Hematocrit 29.9 % (36.0-45.0); MCV 100.3 fL (80-100); RBC Red Blood Cell Count 2.98 M/uL (3.86-4.86)
[2022-03-30 14:14] LABS: Protime INR 1.73
--- NOTE | 2022-03-30 14:45 | RAD REPORT ---
EXAM DESCRIPTION: RAD - Chest Single View - 03/30/2022 2:37 pm CLINICAL HISTORY: DYSPNEA COMPARISON: Chest Single View dated 03/02/2022; Chest Single View dated 03/02/2022; Chest Single View dated 02/28/2022; Chest Single View dated 2Chest Single View dated 03/02/2022; Chest Single Vie w dated 03/02/2022; Chest Single View dated 02/28/2022; Chest Single View dated 02/26/2022; Abdomen Pe lvis Wo Contrast dated 03/30/2022 FINDINGS: Lines: None. Lungs: No evidence of edema or pneumonia. Improved aeration of the lungs compared with prior. Pleural: No significant pleural effusions or pneumothorax. Cardiac: The heart size is within normal limits. Mediastinum: Within normal limits. Bones: No acute fractures. Scoliosis. Other: None IMPRESSION: No acute cardiopulmonary disease.
[2022-03-30 15:23] LABS: Albumin 2.2 g/dL (3.4-5.0); Bilirubin Total 1.8 mg/dL (0.2-1.0); Protein, Total 6.3 g/dL (6.4-8.2)
[2022-03-30 15:26] LABS: Potassium 3.7 mmol/L (3.5-5.1)
--- NOTE | 2022-03-30 15:42 | ER ---
Nurse's Notes [facility] Name: Divina Collazo Age: 36 yrs Sex: Female : 1985 Arrival Date: 03/30/2022 Time: 11:25 Bed 14 Private MD: Diagnosis: Alcoholic cirrhosis of liver with ascites;Dyspnea, unspecified Presentation: 03/30 12:35 Chief complaint: Patient states: Hx of cirrhosis; GERALDO feet swelling/Legs and ABD vg1 swelling; stated was drained last week and 5L was taken off; stated SOB and difficulty breathing. Also stated pressure wound to buttocks. Coronavirus screen: Vaccine status: Patient reports receiving the 2nd dose of the covid vaccine. Client denies travel out of the [place] in the last 14 days. Ebola Screen: Patient denies exposure to infectious person. Patient denies travel to an Ebola-affected area in the 21 days before illness onset. Initial Sepsis Screen: Does the patient meet any 2 criteria? RR > 20 per min. HR > 90 bpm. Yes Does the patient have a suspected source of infection? No. Patient's initial sepsis screen is negative. Risk Assessment: Do you want to hurt yourself or someone else? Patient reports no desire to harm self or others. Onset of symptoms was March 28, 2022. 12:35 Method Of Arrival: Wheelchair vg1 12:35 Acuity: GABBY 2 vg1 Triage Assessment: 12:38 General: Appears uncomfortable, ill, emaciated, Behavior is cooperative, crying. Pain: vg1 Complains of pain in abdomen, right foot, left foot, right leg and left leg Pain currently is 10 out of 10 on a pain scale. Pain began 2-3 days ago. Respiratory: Reports shortness of breath Airway is patent Respiratory effort is even, labored, Respiratory pattern is tachypnea. GI: Abdomen is round distended. 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 - Social history:: Smoking status: Patient reports the use of cigarette tobacco products, smokes one-half pack cigarettes per day. - Family history:: not pertinent. - Hospitalizations: : No recent hospitalization is reported. Screenin:00 Abuse screen: Denies threats or abuse. Denies injuries from another. Nutritional ko1 screening: No deficits noted. Tuberculosis screening: No symptoms or risk factors identified. Fall Risk IV access (20 points). Assessment: 12:45 General: Appears ill, unkempt, malnourished. Neuro: No deficits noted. Cardiovascular: ko1 No deficits noted. Respiratory: No deficits noted. GI: No deficits noted. : No deficits noted. EENT: No deficits noted. Derm: Decubitus located on sacrum. Musculoskeletal: No deficits noted. 12:45 Derm: Decubitus Patient states she had a wound vac on her coccyx up until 3 days ago. ko1 19:56 General: Appears in no apparent distress. comfortable, unkempt, malnourished, Behavior lg3 is calm, cooperative. Pain: Complains of pain in buttocks and left leg and right leg and abdomen. Neuro: No deficits noted. Tavares Agitation-Sedation Scale (RASS): 0 - Alert and Calm Level of Consciousness is awake, alert, obeys commands, Oriented to person, place, time, situation. Cardiovascular: No deficits noted. Denies chest pain, shortness of breath, Capillary refill < 3 seconds Clubbing of nail beds is absent JVD is absent Patient's skin is warm and dry. Respiratory: No deficits noted. Airway is patent Trachea midline Respiratory effort is even, unlabored, Respiratory pattern is regular, symmetrical, Breath sounds are clear bilaterally. GI: Abdomen is round distended, noted to have ascites, Bowel sounds present X 4 quads. Abdomen is tender to palpation X 4 quads. : No deficits noted. No signs and/or symptoms were reported regarding the genitourinary system. EENT: No deficits noted. No signs and/or symptoms were reported regarding the EENT system. Derm: Skin is intact, Skin is dry, Skin is normal, Skin temperature is warm Wound noted buttocks Decubitus located on sacrum. Musculoskeletal: Circulation, motion, and sensation intact. Range of motion: intact in all extremities, Reports generalized weakness. Vital Signs: 12:35 BP 91 / 50; Pulse 107; Resp 26; Temp 97.6(O); Pulse Ox 97% on R/A; Weight 50.8 kg; vg1 Height 5 ft. 5 in. (165.10 cm); Pain 10/10; 13:30 BP 100 / 61; Pulse 98; Resp 18; Pulse Ox 98% ; ko1 18:24 BP 116 / 68; Pulse 102; Resp 16; Pulse Ox 100% ; ko1 19:56 BP 123 / 77; Pulse 101; Resp 17 S; Pulse Ox 99% on R/A; lg3 12:35 Body Mass Index 18.64 (50.80 kg, 165.10 cm) vg1 ED Course: 11:25 Patient arrived in ED. rg4 12:35 Arm band placed on. vg1 12:38 Triage completed. vg1 13:15 Agustin Torres MD is Attending Physician. rn 13:16 Indira Parks, MATILDA is Primary Nurse. ko1 13:42 CT Abd/Pelvis - Without Contrast In Process Unspecified. EDMS 13:50 SARS RAPID Sent. ko1 13:59 SARS RAPID Sent. ko1 13:59 PT-INR Sent. ko1 13:59 BNP Sent. ko1 13:59 CBC with Diff Sent. ko1 13:59 CMP Sent. ko1 13:59 Lipase Sent. ko1 14:00 Patient has correct armband on for positive identification. Bed in low position. Call ko1 light in reach. Side rails up X 1. 14:39 XRAY Chest (1 view) In Process Unspecified. EDMS 15:40 Prince George MD is Hospitalizing Provider. rn 19:59 No provider procedures requiring assistance completed. Patient admitted, IV remains in lg3 place. intact, No redness/swelling at site. 03/31 14:50 Attending Physician role handed off by Agustin Torres MD [facility] 14:50 Marbin Corea MD is Attending Physician. shawn 16:07 assisted with placement of paracentesis to left lower abd. Pt is tolerating procedure jh6 well and has been able to remove 3500 during procedure. After removal for cath Dr Anmol placed a figure 8 stitch to puncture wound and pt stated that she feels much better. Administered Medications: 15:20 Drug: Albumin 25 grams Volume: 100 ml; Route: IVPB; Site: right antecubital; jh6 Medication: 03/30 18:24 VIS not applicable for this client. ko1 Outcome: 15:40 Decision to Hospitalize by Provider. rn 19:59 Admitted to ER Hold. Please see [facility] for further documentation. lg3 19:59 Condition: stable 19:59 Instructed on the need for admit, Demonstrated understanding of instructions. 03/31 20:00 Patient left the ED. ha1 Signatures: Dispatcher [employer] EDMS Marbin Corea MD MD cha Nieto, Roman, MD MD rn Garcia, Rubi rg4 Ashwini Rogers RN RN lg3 Magalis Win RN RN shirin1 Oneyda Dotson RN RN jh6 Nicolle Birmingham RN RN ha1 Indira Parks RN RN ko1 Corrections: (The following items were deleted from the chart) 03/30 12:40 12:35 BP 91 / 50; Pulse 107bpm; Resp 22bpm; Pulse Ox 97% RA; Temp 97.6F Oral; 50.8 kg; vg1 Height 5 ft. 5 in.; BMI: 18.6; Pain 10/10; vg1
--- NOTE | 2022-03-30 15:42 | EDPHYS ---
Physician Documentation [facility] Name: Divina Collazo Age: 36 yrs Sex: Female : 1985 Arrival Date: 03/30/2022 Time: 11:25 Bed 14 Private MD: Marbin Clifford HPI: 03/30 15:01 This 36 yrs old Female presents to ER via Wheelchair with complaints of Abdominal rn Swelling, Feet Swelling. 15:01 The patient presents with abdominal pain abdominal distention that is diffuse. Onset: rn The symptoms/episode began/occurred at an unknown time. The symptoms do not radiate. Associated signs and symptoms: Pertinent negatives: blood in stools, diarrhea, dysuria, fever. The symptoms are described as achy, crampy. Modifying factors: The symptoms are alleviated by nothing, the symptoms are aggravated by movement, touching the area. Severity of pain: At its worst the pain was moderate in the emergency department the pain is unchanged. The patient has experienced similar episodes in the past. The patient has been recently seen by a physician:. Reports paracentesis 5 days ago, has cirrhosis, increased abd distension and fluid, causing sob because of swelling. No fever. No chest pain. . 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 - Social history:: Smoking status: Patient reports the use of cigarette tobacco products, smokes one-half pack cigarettes per day. - Family history:: not pertinent. - Hospitalizations: : No recent hospitalization is reported. ROS: 15:01 Constitutional: Negative for fever, chills, and weight loss, Eyes: Negative for injury, rn pain, redness, and discharge, Cardiovascular: Negative for chest pain, palpitations, and edema, Respiratory: + sob, neg for cough Abdomen/GI: + abd distension and pain Back: Negative for injury and pain, MS/Extremity: Negative for injury and deformity, Skin: Negative for injury, rash, and discoloration, Neuro: Negative for headache, weakness, numbness, tingling, and seizure. Exam: 15:01 Constitutional: Thin female with large abdomen Head/Face: Normocephalic, atraumatic. ornamenter: Tachycardic, regular Respiratory: + mild tachypnea Abdomen/GI: + tense abdomen with fluid wave, no peritoneal signs Skin: Warm, dry MS/ Extremity: Pulses equal, no cyanosis. Neuro: Awake and alert, GCS 15 Vital Signs: 12:35 BP 91 / 50; Pulse 107; Resp 26; Temp 97.6(O); Pulse Ox 97% on R/A; Weight 50.8 kg; vg1 Height 5 ft. 5 in. (165.10 cm); Pain 10/10; 13:30 BP 100 / 61; Pulse 98; Resp 18; Pulse Ox 98% ; ko1 18:24 BP 116 / 68; Pulse 102; Resp 16; Pulse Ox 100% ; ko1 19:56 BP 123 / 77; Pulse 101; Resp 17 S; Pulse Ox 99% on R/A; lg3 12:35 Body Mass Index 18.64 (50.80 kg, 165.10 cm) vg1 Procedures: 03/31 14:50 Paracentesis: The risks and benefits of the procedure were discussed with the patient shawn or guardian in detail, aseptic technique was employed throughout the procedure, the catheter was placed in the left lower quadrant, the fluid was serous, the patient tolerated the procedure well, the patient did not experience any apparent complications. 16:06 Performed PUNCTURE WOUND FOR PARACENTESIS, 6.0 X 1 FIGURE 8 TO CLOSE. [facility] 16:31 Paracentesis: appoximately 4 liters of fluid was removed. shawn MDM: 03/30 13:15 Patient medically screened. rn 15:01 Differential diagnosis: bowel obstruction, non-specific abd pain, cirrhosis, ascites. rn Data reviewed: vital signs, nurses notes, lab test result(s), radiologic studies, CT scan, and as a result, I will admit patient. Counseling: I had a detailed discussion with the patient and/or guardian regarding: the historical points, exam findings, and any diagnostic results supporting the discharge/admit diagnosis, lab results, radiology results, the need for further work-up and treatment in the hospital. Response to treatment: There is no appreciated change of the patient's symptoms at this time, and as a result, I will admit patient. Admission orders: after a detailed discussion of the patient's condition and case, the admit orders are written by me. 03/30 13:24 Order name: CBC with Diff; Complete Time: 14:59 rn 03/30 13:24 Order name: CMP; Complete Time: 15:41 rn 03/30 13:24 Order name: Lipase; Complete Time: 15:41 rn 03/30 13:24 Order name: BNP; Complete Time: 15:41 03/30 13:25 Order name: PT-INR; Complete Time: 14:59 rn 03/30 13:25 Order name: SARS RAPID; Complete Time: 14:59 03/30 13:24 Order name: IV Saline Lock; Complete Time: 13:50 rn 03/30 13:24 Order name: CT Abd/Pelvis - Without Contrast; Complete Time: 14:59 rn 03/30 13:24 Order name: XRAY Chest (1 view); Complete Time: 14:59 03/30 20:32 Order name: Urine Dipstick-Ancillary; Complete Time: 14:50 EDSC 03/30 20:32 Order name: Urine --Ancillary (enter results) ds4 03/31 08:25 Order name: Comprehensive Metabolic Panel; Complete Time: 14:50 [facility] 03/31 17:32 Order name: Diet 2 Gm Sodium; Complete Time: 17:32 6 03/30 13:24 Order name: Labs collected and sent; Complete Time: 16:17 rn 03/30 13:24 Order name: Urine Dipstick-Ancillary (obtain specimen); Complete Time: 20:32 rn 03/30 13:24 Order name: Urine Test (obtain specimen); Complete Time: 20:32 rn Administered Medications: 03/31 15:20 Drug: Albumin 25 grams Volume: 100 ml; Route: IVPB; Site: right antecubital; [facility] Disposition Summary: 03/30/22 15:40 Hospitalization Ordered Hospitalization Status: Inpatient Admission rn Provider: Prince Ariel rn Condition: Stable rn Problem: an ongoing problem rn Symptoms: are unchanged rn Bed/Room Type: Standard rn Location: [facility] ER HOLD(03/31/22 18:19) Room Assignment: ERHOLD-(03/31/22 18:19) ss Diagnosis - Alcoholic cirrhosis of liver with ascites rn - Dyspnea, unspecified rn Forms: - Medication Reconciliation Form rn - SBAR form rn Signatures: Dispatcher [employer] EDMarbin Kearns MD MD cha Nieto, Roman, MD MD rn Smirch, Shelby RN RN ss Stephanie Win RN RN Ronit Meyer Victoria, RN RN vg1 Oneyda Dotson RN RN jh6 Corrections: (The following items were deleted from the chart) 03/30 19:18 15:40 Telemetry/MedSurg (Inpatient) rn cg 19:18 15:40 rn cg 03/31 13:04 03/30 19:18 [facility] ER HOLD [facility] [place] 03/31 13:04 03/30 19:18 ERHOLD- [facility] [place] [place] 03/31 16:09 13:04 414 eb 18:19 13:04 Telemetry/MedSurg (Inpatient) ss 18:19 16:09 eb ss
--- NOTE | 2022-03-30 15:59 | P.HP ---
Certification for Inpatient Patient admitted to: Observation With expected LOS: <2 Midnights Practitioner: I am a practitioner with admitting privileges, knowledge of patient current condition, hospital course, and medical plan of care. Services: Services provided to patient in accordance with Admission requirements found in Title 42 Section 412.3 of the Code of Federal Regulations Patient History Date of Service: 03/30/22 Reason for admission: abdominal pain History of Present Illness: Patient is a 36 year old female with decompensated alcoholic cirrhosis manifested by ascites. She presents [facility] ER complaining of progressively worsening abdominal distention for the past 4 days. She has also noticed that her feet were getting swollen. This has affected her breathing to a small degree. She would some mild shortness of breath and inability to walk and leaning over. Patient states that she was seen 2 weeks ago [address] [facility] in [place] on for a large-volume paracentesis. This was her first paracentesis since she developed ascites. They removed 5 L. She still has the gauze present. Patient is currently being worked up for liver transplant at [facility] in [place]. She states she has #25 on the line. She is struggling with alcohol cessation. Last drink was 4 days ago. Allergies propoxyphene [From Darvocet-N] Allergy (Verified 02/01/22 05:35) Nausea/Vomiting Home Medications: ARIPiprazole [Abilify Mycite] 10 mg PO BEDTIME 02/01/22 Folic Acid 1 mg PO DAILY 02/01/22 Furosemide [Lasix*] 20 mg PO DAILY 02/01/22 Lactulose 30 ml PO TID 02/01/22 Mvit-Mins/Folic Acid/Soy Isofl [One-A-Day Menopause Formula Tb] 1 tab PO DAILY 02/01/22 Spironolactone [Aldactone*] 25 mg PO DAILY 02/01/22 Thiamine HCl 100 mg PO DAILY 02/01/22 Trazodone [Desyrel*] 50 mg PO BEDTIME 02/01/22 Smz./Tmp. [Bactrim Ds 800 MG/160 MG*] 1 tab PO BID 10 Days #20 tab 02/03/22 Methylpred Na Suc [Solu-Medrol*] 60 mg IV Q12HR vial 02/28/22 Propranolol [Inderal*] 20 mg PO BID tab 02/28/22 - Past Medical/Surgical History Diabetic: Yes -: Cirrhosis of the liver -: Type 2 Diabetes, Non-Insulin Dependent -: Hypertension -: Alcohol/opioid abuse -: Psychosocial/ Personal History: Patient lives at home with her and children. - Family History Sister Notes: Depression - Social History Alcohol use: Yes CD- Drugs: Yes Caffeine use: Yes Physical Examination - Physical Exam General: Mild distress, Other (Uncomfortable) HEENT: Atraumatic, Normocephalic, Sclerae nonicteric Respiratory: Clear to auscultation bilaterally, Normal air movement Cardiovascular: Regular rate/rhythm, Normal S1 S2, Other (2+ pitting edema in both legs), Edema Gastrointestinal: Distended, Ascites, Tenderness Neurological: Normal speech, Sensation intact, Normal affect - Studies Laboratory Data (last 24 hrs) 03/30/22 13:55: PT 19.3 H, INR 1.73 03/30/22 13:55: Sodium 128 L, Potassium 3.7, BUN 9, Creatinine 0.54 L, Glucose 150 H, Total Bilirubin 1.8 H, AST 61 H, ALT 30, Alkaline Phosphatase 181 H, Lipase 55 L 03/30/22 13:55: WBC 8.80, Hgb 10.1 L, Hct 29.9 L, Plt Count 289 Assessment and Plan - Problems (Diagnosis) (1) Alcoholic cirrhosis of liver with ascites Current Visit: No Status: Acute (2) Hypertension Current Visit: No Status: Chronic Qualifiers: Hypertension type: primary hypertension Qualified Code(s): I10 - Essential (primary) hypertension (3) Type 2 diabetes mellitus Current Visit: No Status: Chronic Qualifiers: Diabetes mellitus assisted insulin use: without assisted use Diabetes mellitus complication status: with hyperglycemia Qualified Code(s): E11.65 - Type 2 diabetes mellitus with hyperglycemia - Plan Assessment Patient is a 36-year-old female with known history of decompensated alcoholic cirrhosis manifested by ascites. She is presenting with progressively worsening abdominal distention. She has massive ascites on physical exam along with bilateral lower extremity edema. Alcoholic cirrhosis, decompensated Ascites Hypertension Type 2 diabetes mellitus Plan: Will admit under observation Patient will be started on IV Lasix 40 mg every 12 hours I have put an order for a large-volume paracentesis by radiology Hold off chemo prophylaxis anticipation to do procedure above Her INR is 1.73 Reconcile home medications and resume as appropriate Counseling provided for alcohol cessation - Advance Directives Does patient have a Living Will: No Does patient have a Durable POA for Healthcare: No
[2022-03-30] MEDS: FUROSEMIDE 40 MG/4 ML VIAL IV SCH (17:00)
[2022-03-30] MEDS ORDERED: FUROSEMIDE 40 MG/4 ML VIAL ONE (18:40)
[2022-03-30 20:32] LABS: Urine Blood Trace-intact (Negative); Urine Glucose Negative (Negative); Urine Protein Negative (Negative); Urine pH 6.5 (5.0-7.0)
[2022-03-30] MEDS: MORPHINE 2 MG/ML SYR IV PRN (22:42)
[2022-03-30] MEDS ORDERED: MORPHINE 2 MG/ML SYR ONE (22:49)
[2022-03-31 08:22] LABS: Bilirubin Total 2.1 mg/dL (0.2-1.0); Potassium 3.6 mmol/L (3.5-5.1); Protein, Total 5.8 g/dL (6.4-8.2)
[2022-03-31] MEDS: FUROSEMIDE 40 MG/4 ML VIAL IV SCH (09:00)
[2022-03-31] MEDS: MORPHINE 2 MG/ML SYR IV PRN (10:12)
[2022-03-31] MEDS ORDERED: MORPHINE 2 MG/ML SYR ONE (10:23)
[2022-03-31] MEDS ORDERED: FUROSEMIDE 40 MG/4 ML VIAL ONE (10:24)
[2022-03-31] MEDS ORDERED: ALBUMIN HUMAN 25% 100 ML IV ONE (15:26)
--- NOTE | 2022-03-31 16:13 | P.DS ---
Admission Date: 03/30/22 Discharge Date: 03/31/22 Disposition: ROUTINE DISCHARGE Discharge Condition: GOOD Reason for Admission: abdominal pain - Problems (1) Alcoholic cirrhosis of liver with ascites Current Visit: No Status: Acute (2) Hypertension Current Visit: No Status: Chronic Qualifiers: Hypertension type: primary hypertension Qualified Code(s): I10 - Essential (primary) hypertension (3) Type 2 diabetes mellitus Current Visit: No Status: Chronic Qualifiers: Diabetes mellitus superintendent terminal insulin use: without superintendent terminal use Diabetes mellitus complication status: with hyperglycemia Qualified Code(s): E11.65 - Type 2 diabetes mellitus with hyperglycemia Brief History of Present Illness: Patient is a 36 year old female with decompensated alcoholic cirrhosis manifested by ascites. She presents [facility] ER complaining of progressively worsening abdominal distention for the past 4 days. She has also noticed that her feet were getting swollen. This has affected her breathing to a small degree. She would some mild shortness of breath and inability to walk and leaning over. Patient states that she was seen 2 weeks ago at [facility] in [place] on for a large-volume paracentesis. This was her first paracentesis since she developed ascites. They removed 5 L. She still has the gauze present. Patient is currently being worked up for liver transplant at [facility] in [place]. She states she has #25 on the line. She is struggling with alcohol cessation. Last drink was 4 days ago. Hospital Course: Patient was admitted overnight. She was placed on IV Lasix [address] Corea from ER assisted the medicine team with therapeutic paracentesis. She had roughly 4 L of fluid removed. She also received albumin infusion after her procedure. She tolerated the procedure well and is feeling much better. She is hemodynamically stable. She is going to be discharged on spironolactone and Lasix. Scripts have been sent electronically to her pharmacy. I appreciate assistance from ER with paracentesis. Vital Signs/Physical Exam: Temp Pulse Resp BP Pulse Ox 98.1 F 105 H 16 113/90 99 03/31/22 08:00 03/31/22 09:00 03/31/22 08:00 03/31/22 09:00 03/31/22 08:00 General: Alert, In no apparent distress, Cooperative, Other (Frail) HEENT: Atraumatic, Normocephalic Respiratory: Clear to auscultation bilaterally, Normal air movement Cardiovascular: Normal pulses, Regular rate/rhythm, Normal S1 S2, Other (Bilateral lower extremity edema) Gastrointestinal: Other (Ascites), Ascites, Tenderness Musculoskeletal: No clubbing Laboratory Data at Discharge: WBC 8.80 K/uL (4.3-10.9) 03/30/22 13:55 Hgb 10.1 g/dL (12.0-15.0) L 03/30/22 13:55 Hct 29.9 % (36.0-45.0) L 03/30/22 13:55 Plt Count 289 K/uL (152-406) 03/30/22 13:55 PT 19.3 SECONDS (9.5-12.5) H 03/30/22 13:55 INR 1.73 03/30/22 13:55 Sodium 131 mmol/L (136-145) L 03/31/22 07:50 Potassium 3.6 mmol/L (3.5-5.1) 03/31/22 07:50 BUN 8 mg/dL (7-18) 03/31/22 07:50 Creatinine 0.43 mg/dL (0.55-1.3) L 03/31/22 07:50 Glucose 137 mg/dL (74-106) H 03/31/22 07:50 Total Bilirubin 2.1 mg/dL (0.2-1.0) H 03/31/22 07:50 AST 64 U/L (15-37) H 03/31/22 07:50 ALT 27 U/L (12-78) 03/31/22 07:50 Alkaline Phosphatase 180 U/L (45-117) H 03/31/22 07:50 Lipase 55 U/L (73-393) L 03/30/22 13:55 Home Medications: RX: ARIPiprazole [Abilify Mycite] 10 mg PO BEDTIME 02/01/22 RX: Folic Acid 1 mg PO DAILY 02/01/22 RX: Lactulose 30 ml PO TID 02/01/22 RX: Mvit-Mins/Folic Acid/Soy Isofl [One-A-Day Menopause Formula Tb] 1 tab PO DAILY 02/01/22 RX: Thiamine HCl 100 mg PO DAILY 02/01/22 RX: Trazodone [Desyrel*] 50 mg PO BEDTIME 02/01/22 RX: Smz./Tmp. [Bactrim Ds 800 MG/160 MG*] 1 tab PO BID 10 Days #20 tab 02/03/22 RX: Propranolol [Inderal*] 20 mg PO BID tab 02/28/22 RX: Furosemide [Lasix*] 20 mg PO DAILY #30 tab 03/31/22 RX: Spironolactone [Aldactone*] 50 mg PO DAILY #30 tab 03/31/22 New Medications: RX: Spironolactone [Aldactone*] 50 mg PO DAILY #30 tab RX: Furosemide [Lasix*] 20 mg PO DAILY #30 tab Followup: NONE,NONE [Primary Care Provider] -
[2022-03-31 16:18] VITALS: TEMP 97.6
[2022-04-02 03:17] VITALS: BP 123/77; O2SAT 99
== END 2022-03-31 19:40 | disposition home or self-care (01) ==
LOC: ER 11:23 → ERHOLD 15:49
PROVIDERS: ADMIT Internal Medicine; ATTEND Internal Medicine
DX: K70.31 Alcoholic cirrhosis of liver with ascites (principal); F10.20 Alcohol dependence, uncomplicated; I10 Essential (primary) hypertension; E11.65 Type 2 diabetes mellitus with hyperglycemia; F11.10 Opioid abuse, uncomplicated; Z71.41 Alcohol abuse counseling and surveillance of alcoholic; Z88.8 Allergy status to other drugs, medicaments and biological substances
CPT/HCPCS: 36415; 71045; 74176; 80053; 81003; 83690; 83880; 85025; 85610; 87811; 96374; 99285; G0378; J1940; J2270; P9047

== ENCOUNTER 2022-04-03 10:56 | Emergency (ER) | payer OTHER ==
--- OUTSIDE RECORDS SUMMARY | 2022-04-03 11:14 | XMS REPORT | Continuity of Care Document ---
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 doses, [place] 400) tablet 00 :00 First dose Me dical [address] [facility] 03/15/22 at 0800, Last dose on Mon03/18/22 [...] Administer over 60 Minutes, 100 mL magnesium 2021- No 2g 2 g, IV Univ ers sulfate in 03-14 Piggyback, it y of water 2 23:00: 03:51 Administer [place] gram/50 mL 00 :27 over 60 Medica l (4 %) Minutes, Branch infusion 2 ONCE, 1 g dose, On [facility] 03/14/22 at 1800, Routine KCL 2021-0 2021- No 20meq 20 mEq, Univers (KLOR-CON 03-14 Oral, ity of M20) tablet 21:00: 21:25 ONCE, 1 [place] 20 mEq 00 :00 dose, On Medical [facility] 03/14/22 at 1600, Routine foLIC acid Yes 1mg 1 mg, Univer s (FOLATE) 03-14 Oral, ity of tablet 1 mg 14:00: DAILY, [place] 00 First dose Medical on [facility] 03/14/22 at 0900, Until Discontinu ed, Routine thiamine Yes 100mg 100 mg, Unive rs (VITAMIN 03-14 Oral, ity of B1) tablet 14:00: DAILY, [place] 100 mg 00 First dose Medical on [facility] 03/14/22 at 0900, Until Discontinu ed, Routine furosemide Yes 40mg 40 mg, Unive rs (LASIX) 03-14 Oral, ity of tablet 40 14:00: DAILY, [place] mg 00 First dose Medical on [facility] 03/14/22 at 0900, Until Discontinu ed, Routine rifAXIMin 0 Yes 550mg 550 mg, Univ ers (XIFAXAN) 03-14 Oral, BID, ity of tablet 550 01:00: First dose [place] mg 00 on [facility] 03/13/22 at Branch 2000, Until Discontinu ed, Routine
Reason for Anti-Infec tive: Empiric Therapy for Suspected Infection< br>Empiric Therapy Site: Abdominal< br>Duratio n of therapy: 5 days lactulose 2021-0 Yes 15mL 15 mL, Univer s (CEPHULAC) 03-14 Oral, TID, ity of solution 15 01:00: First dose [place] mL 00 (after Medical last Branch modificati on) on [employer] 03/13/22 at 2000, Until Discontinu ed, Routine ceFEPIme 2021- Yes 1000mg 1,000 mg, U nivers (MAXIPIME) 03-14 09-05 IV ity of 1,000 mg in 01:00: 00:59 [place], [place] NaCl 0.9% 00 :00 Q8H ABX, Medica l (NS) 50 mL 21 doses, Bran ch MINI-BAG First dose on 03/13/22 at 2000, Last dose on 03/20/22 at 1200, Administer over 4 Hours, 50 mL
Reas on for Anti-Infec tive: Empiric Therapy for Suspected Infection< br>Empiric Therapy Site: Respirator y
Durat ion of therapy: 5 days oxazepam Yes 15mg 15 mg, Univers (SERAX) 03-13 Oral, ity of capsule 15 22:32: Q4HPRN, [place] mg 41 Starting Medical on [employer] Branch 03/13/22 at 1732, Until Discontinu ed, Routine, Anxiety, Only while awake for DBP equal to or greater than 100, HR equal to or greater than 100. Sliding Yes Subcutaneo Univ ers Scale 03-13 us, TID ity of Insulin - 17:00: MEALS+HS, [place] Lispro 00 First dose Medical (HumaLOG) + on [employer] Branch [facility] 03/13/22 at Testing 1200, Until Discontinu ed, Routine ceFEPIme 2021- No 1000mg 1,000 mg, U nivers (MAXIPIME) 03-13 0828 IV ity of 1,000 mg in 16:00: 18:03 [place], [place] NaCl 0.9% 00 :00 ONCE, 1 Medical (NS) 50 mL dose, On Branc h MINI-BAG [employer] 03/13/22 at 1100, Administer over 30 Minutes, 50 mL
Reas on for Anti-Infec tive: Empiric Therapy for Suspected Infection< br>Empiric Therapy Site: Respirator y
Durat ion of therapy: 72 hours spironolact Yes 50mg 50 mg, Univ ers one 03-13 Oral, BID, ity of (ALDACTONE) 15:15: First dose [place] tablet 50 00 on [employer] Medical mg 03/13/22 at Branch 1015, Until Discontinu ed, Routine fluconazole 2021- Yes 200mg 200 mg, U nivers (DIFLUCAN) 03-1302 Oral, ity of tablet 200 15:15: 13:59 DAILY, 5 [place] mg 00 :00 doses, Medical First dose Branch on [employer] 03/13/22 at 1015, Last dose on [facility] 03/17/22 at 0900, AUSTEN
Re ason for Anti-Infec tive: Documented Infection< br>Documen afshin Infection Site: Respirator y
Durat ion of Therapy: 7 days glucagon Yes 1mg 1 mg, Univers (GLUCAGEN 03-13 Intramuscu ity of DIAGNOSTIC 15:06: [place], PRN, [place] KIT) 44 Starting Medical injection 1 on [facility] 03/13/22 at 1006, Until Discontinu ed, [place]USTEN, Blood Glucose < or = 70 mg/dL and patient is unable to swallow or has mental changes. dextrose 50 Yes 25mL 25 mL, Univ ers % in water 03-13 Slow IV ity of (D50W) 15:06: Push, PRN, [place] injection 44 Starting Medica l 25 mL on [facility] 03/13/22 at 1006, Until Discontinu ed, AUSTEN, Blood Glucose < or = 70 mg/dL and patient is unable to swallow or has mental status changes. KCL 2021- No 40meq 40 mEq, Univers (KLOR-CON 03-13 Oral, ity of M20) tablet 15:00: 17:27 ONCE, 1 [place] 40 mEq 00 :00 dose, On Medical [facility] 03/13/22 at 1000, Routine docusate Yes 100mg 100 mg, Unive rs (COLACE) 03-13 Oral, ity of capsule 100 14:00: DAILY, [place] mg 00 First dose Medical on [facility] 03/13/22 at 0900, Until Discontinu ed, Routine enoxaparin Yes 40mg 40 mg, Unive rs (LOVENOX) 03-13 Subcutaneo ity of injection 14:00: us, DAILY, [place] 40 mg 00 First dose Medical on [facility] 03/13/22 at 0900, Until Discontinu ed, Routine SERTraline Yes 50mg 50 mg, Unive rs (ZOLOFT) 03-13 Oral, ity of tablet 50 14:00: DAILY, [place] mg 00 First dose Medical on [facility] 03/13/22 at 0900, Until Discontinu ed, Routine lactulose 2021- No 15mL 15 mL, Unive rs (CEPHULAC) 03-13 Oral, ity of solution 15 14:00: 22:33 DAILY, [place] mL 00 :27 First dose Medical on [facility] 03/13/22 at 0900, Until Discontinu ed, Routine foLIC acid 2021- No 1mg 1 mg, Unive rs (FOLATE) 03-13 Oral, ity of tablet 1 mg 14:00: 22:42 DAILY, [place] 00 :06 First dose Medical on [facility] 03/13/22 at 0900, Until Discontinu ed, Routine furosemide No 20mg 20 mg, Univ ers (LASIX) 03-13 Slow IV ity of injection 13:00: 15:05 Push, [place] 20 mg 00 :33 Q12H, Medical First dose Branch on [employer] 03/13/22 at 0800, Until Discontinu ed, Routine nicotine Yes 1{patch 1 Patch, Un frida (NICODERM) 03-13 } Topical, ity o f 21 mg/24 hr 12:30: Administer [place] patch 1 00 over 24 Medical Patch Hours, Branch Q24H, First dose on [employer] 03/13/22 at 0730, Until Discontinu ed, Routine piperacilli 2021- No 3.375g 3.375 g, Univers n-tazobacta 03-13 IV ity of m (ZOSYN) 12:00: 15:09 [place]back, [place] 3.375 g in 00 :15 Q8H ABX, 5 Med ical NaCl 0.9% doses, Branch (NS) 50 mL First dose MINI-BAG on [employer] 03/13/22 at 0700, Last dose on [facility] 03/14/22 at 1500, Administer over 30 Minutes, 50 mL
Reas on for Anti-Infec tive: Empiric Therapy for Suspected Infection< br>Empiric Therapy Site: Abdominal< br>Duratio n of therapy: 5 days ondansetron Yes 4mg 4 mg, Slow Univers (ZOFRAN 03-13 IV Push, ity of (PF)) 07:18: Q6HPRN, [place] injection 4 46 Starting Medi george mg on [facility] 03/13/22 at 0218, Until Discontinu ed, Routine, Nausea and Vomiting (N/V) acetaminoph Yes 650mg 650 mg, Un frida en 03-13 Oral, ity of (TYLENOL) 07:18: Q6HPRN, [place] tablet 650 08 Starting Medic al mg on [facility] 03/13/22 at 0218, Until Discontinu ed, Routine, Pain (scale 1-3) morpHINE (2 Yes 2mg 2 mg, Slow Univers mg/mL) 03-13 IV Push, ity of injection 2 06:59: Q4HPRN, [place] mg 14 Starting Medical on [facility] 03/13/22 at 0159, Until Discontinu ed, Routine, Pain (scale 7-10) oxyCODONE 2021- No 5mg 5 mg, Univer s immediate 03-13 Oral, ity of release 06:58: 12:25 Q4HPRN, [place] tablet 5 mg 36 :23 Starting Medi george on [facility] 03/13/22 at 0158, Until [employer] 03/13/22 at 0725, Routine, Pain (scale 4-6)
Fa culty member approving Restricted medication : OFELIA SALDAÑA KCL 2021- No 40meq 40 mEq, Univers (KLOR-CON 03-13 Oral, ity of M20) tablet 05:15: 05:14 ONCE, 1 [place] 40 mEq 00 :00 dose, On Medical [facility] 03/13/22 at 0015, [place]EN Vancomycin 2021- No 750mg 750 mg, IV Univers 750 mg in 03-13 Piggyback, ity of NaCl 0.9% 04:30: 06:30 ONCE, 1 [place] (NS) 250 mL 00 :00 dose, On Medi george VIAL-MATE [facility] 03/12/22 at 2330, Administer over 60 Minutes, 250 mL
R akil for Anti-Infec tive: Empiric Therapy for Suspected Infection< br>Empiric Therapy Site: Respirator y
Durat ion of therapy: 72 hours piperacilli 2021- No 3.375g 3.375 g, Univers [...] Sat Branch 03/12/22 at 2230, [place] thiamine 2021-2021- Yes 100mg QD Take [facility] tablet 00:[facility]: 23:59 (100 mg Medical 00 :00 total) by Center mouth daily for 90 days. thiamine 2021- Yes 100mg QD Take 1 [facility] MG 03-1124 tablet [facility] tablet 00:00: 23:59 (100 mg Medical 00 :00 total) by Center mouth daily for 90 days. thiamine 2021- Yes 100mg QD Take 1 [facility] MG 03-1124 tablet [facility] tablet 00:00: 23:59 (100 mg Medical 00 :00 total) by Center mouth daily for 90 days. fluconazole 2021- No 200mg QD Take [address] (DIFLUCAN) 03-11 tablet [facility] 200 MG 00:00: 23:59 (200 mg Medical tablet 00 :00 total) by Center mouth daily for 7 days. fluconazole 2021- No 200mg QD Take [address] (DIFLUCAN) 03-11 tablet [facility] 200 MG 00:00: 23:59 (200 mg Medical tablet 00 :00 total) by Center mouth daily for 7 days. fluconazole 2021- No 200mg QD Take [address] (DIFLUCAN) 03-11 tablet [facility] 200 MG 00:00: 23:59 (200 mg Medical tablet 00 :00 total) by Center mouth daily for 7 days. ergocalcife 0 Yes [id number] Q7D Take [address] rol 8-25 capsule [facility] (ERGOCALCIF 00:00: (50,000 Med ical LUIS) 1,250 00 Units Center mcg (50,000 total) by unit) mouth once capsule a week. ergocalcife 0 Yes [id number] Q7D Take [address] rol 8-25 capsule [facility] (ERGOCALCIF 00:00: (50,000 Med ical LUIS) 1,250 00 Units Center mcg (50,000 total) by unit) mouth once capsule a week. ergocalcife 0 Yes [id number] Q7D Take [address] rol 8-25 capsule [facility] (ERGOCALCIF 00:00: (50,000 Med ical LUIS) 1,250 00 Units Center mcg (50,000 total) by unit) mouth once capsule a week. folic 2021- Yes 1{tbl} QD Take [address] [facility] [address] acid-multiv 8-10 06- tablet by [facility] [facility] 00:00: 23:59 mouth Medical (NEPHRO-VIT 00 :[address]) 0.8 mg 90 days. Tab tablet folic 2021- Yes 1{tbl} QD Take [address] acid-multiv 8-25 - tablet by [facility] 00:00: 23:59 mouth Medical (NEPHRO-VIT 00 :[address] E) 0.8 mg 90 days. Tab tablet folic 2021- Yes 1{tbl} QD Take [address] acid-multiv 8-25 - tablet by [facility] [facility] 00:00: 23:59 mouth Medical (NEPHRO-VIT 00 :[address] [facility]) 0.8 mg 90 days. Tab tablet pantoprazol 2021- Yes 40mg QD Take [address] [facility] [address] e 8-25 10-24 tablet (40 [facility] (PROTONIX) 00:00: 23:59 mg total) M edical 40 MG 00 :00 by mouth Center tablet daily for 60 days. rifAXIMin 2021-2021- Yes 550mg Q.5D Take [address] 550 mg Tab 8-25 10-24 tablet [facility] 00:00: 23:59 (550 mg Medical 00 :00 total) by Center mouth 2 (two) times daily for 60 days. pantoprazol 2021- Yes 40mg QD Take [address] [facility] [facility] e 8-25 10-24 tablet (40 [facility] (PROTONIX) 00:00: 23:59 mg total) M edical 40 MG 00 :00 by mouth Center tablet daily for 60 days. rifAXIMin 2021- Yes 550mg Q.5D Take [address] 550 mg Tab 8-25 10-24 tablet [facility] 00:00: 23:59 (550 mg Medical 00 :00 total) by Center mouth 2 (two) times daily for 60 days. pantoprazol 2021- Yes 40mg QD Take [address] [facility] [facility] e 8-25 10-24 tablet (40 [facility] (PROTONIX) 00:00: 23:59 mg total) M edical 40 MG 00 :00 by mouth Center tablet daily for 60 days. rifAXIMin 2021- Yes 550mg Q.5D Take [address] 550 mg Tab 8-25 10-24 tablet [facility] 00:00: 23:59 (550 mg Medical 00 :00 total) by Center mouth 2 (two) times daily for 60 days. lactulose 2021- Yes 20g Q.5D Take [address] [facility] [address] (CHRONULAC) 8-25 09-24 mLs (20 g [facility] 20 gram/30 00:00: 23:59 total) by M edical mL solution 00 :00 mouth 2 Cente r (two) times daily for 30 days. potassium 2021-2021- Yes 10meq QD Take [address] [facility] [address] chloride SA 8- 09-24 tablet (10 [facility] (K-DUR,KLOR 00:00: 23:59 mEq total) Medical -CON-M) 10 00 :00 by mouth Cente r MEQ tablet daily for 30 days. lactulose 2021-0 202- Yes 20g Q.5D Take [address] (CHRONULAC) 03-10-24 mLs (20 g [facility] 20 gram/30 00:00: 23:59 total) by M edical mL solution 00 :00 mouth 2 Cente r (two) times daily for 30 days. potassium 2021-0 2021- Yes 10meq QD Take [address] [facility] chloride SA 03-10-24 tablet (10 [facility] (K-DUR,KLOR 00:00: 23:59 mEq total) Medical -CON-) 10 00 :00 by mouth Cente r MEQ tablet daily for 30 days. lactulose 2021-0 2021- Yes 20g Q.5D Take [address] (CHRONULAC) 03-1024 mLs (20 g [place] [facility] 20 gram/30 00:00: 23:59 total) by M edical mL solution 00 :00 mouth 2 Cente r (two) times daily for 30 days. potassium 2021-0 2021- Yes 10meq QD Take [address] chloride SA 03-1024 tablet (10 [facility] (K-DUR,KLOR 00:00: 23:59 mEq total) [facility]-) 10 00 :00 by mouth Cente r MEQ tablet daily for 30 days. omeprazole 0 Yes 40mg Take 40 mg U nivers 40 mg 7-26 by mouth ity of capsule 15:44: in the [place] 12 morning. Medical Branch midodrine 5 2021-0 Yes 5mg Take 5 mg U nivers mg tablet 7-26 by mouth ity of 15:44: in the [place] 12 morning Medical and 5 mg Branch at noon and 5 mg in the evening. lactulose 2021-0 Yes 15mL Take 15 mL Un frida 10 gram/15 7-26 by mouth ity o f mL solution 15:44: in the [facility] 12 morning. Medical Branch ARIPiprazol 2021-0 Yes 10mg Take 10 mg Univers e (ABILIFY) 7-26 by mouth ity of 10 mg 15:44: in the [facility] 12 morning. Medical Branch traZODone 2021-0 Yes 50mg Take 50 mg Un frida 50 mg 7-26 by mouth ity of tablet 15:44: at [place] [address] bedtime. Medical Branch sulfamethox 2021-0 Yes 1{tbl} Take 1 Un frida azole-trime 7-26 tablet by ity of thoprim 15:44: mouth in [place] 800-160 mg 12 the Medical per tablet morning Branch and 1 tablet in the evening. buprenorphi 2021-[address] 8 mg Univers ne-naloxone 7-26 under the ity of 8-2 mg 15:44: tongue. [place] sublingual Medical film Branch omeprazole 0 Yes 40mg Take 40 mg U nivers 40 mg 7-26 by mouth ity of capsule 15:44: in the [place] [address] morning. Medical Branch midodrine 5 0 Yes 5mg Take 5 mg U nivers mg tablet 7-26 by mouth ity of 15:44: in the [place] [address] morning Medical and 5 mg Branch at noon and 5 mg in the evening. lactulose 0 Yes 15mL Take 15 mL Un frida 10 gram/15 7-26 by mouth ity o f mL solution 15:44: in the [facility] 12 morning. Medical Branch ARIPiprazol 0 Yes 10mg Take 10 mg Univers e (ABILIFY) 7-26 by mouth ity of 10 mg 15:44: in the [place] [address] morning. Medical Branch traZODone 0 Yes 50mg Take 50 mg Un frida 50 mg 7-26 by mouth ity of tablet 15:44: at [place] [address] bedtime. Medical Branch sulfamethox 2021-0 Yes 1{tbl} Take 1 Un frida azole-trime 7-26 tablet by ity of thoprim 15:44: mouth in [place] 800-160 mg 12 the Medical per tablet morning Branch and 1 tablet in the evening. buprenorphi 2021-[address] 8 mg Univers ne-naloxone 7-26 under the ity of 8-2 mg 15:44: tongue. [place] sublingual Medical film Branch omeprazole 2021-0 Yes 40mg Take 40 mg U nivers 40 mg 7-26 by mouth ity of capsule 15:44: in the [place] [address] morning. Medical Branch midodrine 5 2021-0 Yes 5mg Take 5 mg U nivers mg tablet 7-26 by mouth ity of 15:44: in the [place] [address] morning Medical and 5 mg Branch at noon and 5 mg in the evening. lactulose 0 Yes 15mL Take 15 mL Un frida 10 gram/15 7-26 by mouth ity o f mL solution 15:44: in the [facility] 12 morning. Medical Branch ARIPiprazol 0 Yes 10mg Take 10 mg Univers e (ABILIFY) 7-26 by mouth ity of 10 mg 15:44: in the [place] tablet 12 morning. Medical Branch traZODone 0 Yes 50mg Take 50 mg Un frida 50 mg 7-26 by mouth ity of tablet 15:44: at [place] [address] bedtime. Medical Branch sulfamethox 0 Yes 1{tbl} Take 1 Un frida azole-trime 7-26 tablet by ity of thoprim 15:44: mouth in [place] 800-160 mg 12 the Medical per tablet morning Branch and 1 tablet in the evening. buprenorphi [address] 8 mg Univers ne-naloxone 7-26 under the ity of 8-2 mg 15:44: tongue. [place] sublingual 12 Medical film Branch omeprazole 0 Yes 40mg Take 40 mg U nivers 40 mg 7-26 by mouth ity of capsule 15:44: in the [place] [address] morning. Medical Branch midodrine 5 0 Yes 5mg Take 5 mg U nivers mg tablet 7-26 by mouth ity of 15:44: in the [place] [address] morning Medical and 5 mg Branch at noon and 5 mg in the evening. lactulose 0 Yes 15mL Take 15 mL Un frida 10 gram/15 7-26 by mouth ity o f mL solution 15:44: in the [facility] 12 morning. Medical Branch ARIPiprazol 2021-0 Yes 10mg Take 10 mg Univers e (ABILIFY) 7-26 by mouth ity of 10 mg 15:44: in the [place] tablet 12 morning. Medical Branch traZODone 2021-0 Yes 50mg Take 50 mg Un frida 50 mg 7-26 by mouth ity of tablet 15:44: at [place] [address] bedtime. Medical Branch sulfamethox 2021-0 Yes 1{tbl} Take 1 Un frida azole-trime 7-26 tablet by ity of thoprim 15:44: mouth in [place] 800-160 mg 12 the Medical per tablet morning Branch and 1 tablet in the evening. buprenorphi [address] 8 mg Univers ne-naloxone 7-26 under the ity of 8-2 mg 15:44: tongue. [place] sublingual 12 Medical film Branch SERTraline 0 Yes [id number] 50mg Take 1 U nivers (ZOLOFT) 50 7-26 tablet by ity of mg tablet 00:00: [place] 00 the Medical morning. Branch SERTraline 0 Yes [id number] 50mg Take 1 U nivers (ZOLOFT) 50 7-26 tablet by ity of mg tablet 00:00: mouth [place] 00 the Medical morning. Branch SERTraline 0 Yes [id number] 50mg Take 1 U nivers (ZOLOFT) 50 7-26 tablet by ity of mg tablet 00:00: mouth in [place] 00 the Medical morning. Branch SERTraline 0 Yes [id number] 50mg Take 1 U nivers (ZOLOFT) 50 7-26 tablet by ity of mg tablet 00:00: mouth in [place] 00 the Medical morning. Branch SERTraline 0 Yes [id number] 50mg Take 1 U nivers (ZOLOFT) 50 7-26 tablet by ity of mg tablet 00:00: mouth [place] 00 the Medical morning. Branch SERTraline 0 Yes [id number] 50mg Take 1 U nivers (ZOLOFT) 50 7-26 tablet by ity of mg tablet 00:00: mouth [place] 00 the Medical morning. Branch SERTraline 0 Yes [id number] 50mg Take 1 U nivers (ZOLOFT) 50 7-26 tablet by ity of mg tablet 00:00: mouth [place] 00 the Medical morning. Branch SERTraline 0 2021- No [id number] 50mg Take 1 Univers (ZOLOFT) 50 7-26 09-09 tablet by it y of mg tablet 00:00: 00:00 mouth in [place] 00 :00 the Medical morning. Branch cefdinir 2021-0 2021- No [id number] 300mg Take 1 U nivers 300 mg 01-21 capsule by ity of capsule 00:00: 00:00 mouth 2 [place] 00 :00 (two) Medical times Branch daily. ondansetron 2021- No [id number] 4mg Take 1 Univers 4 mg 01-21 tablet by ity of disintegrat 00:00: 00:00 mouth [place] tablet 00 :00 every 4 Medica l (four) Branch hours as needed for Nausea and Vomiting (N/V). chlordiazeP 2021- No Alcohol Take 2 [place] OXIDE -25 - dependence capsules [facility] (LIBRIUM) 00:00: 23:59 with by mouth 2 25 mg 00 :00 unspecified (two) capsule alcohol-ind times a uced day for 1 disorder day, THEN 1 capsule 4 times daily for 1 day, THEN 1 capsule 2 (two) times a day for 1 day, THEN 1 capsule at bedtime nightly for 1 day. chlordiazeP 2021- No Alcohol Take 2 [place] OXIDE 01-08- dependence capsules [facility] (LIBRIUM) 00:00: 23:59 with by mouth 2 25 mg 00 :00 unspecified (two) capsule alcohol-ind times a uced day for 1 disorder day, THEN 1 capsule 4 times daily for 1 day, THEN 1 capsule 2 (two) times a day for 1 day, THEN 1 capsule at bedtime nightly for 1 day. foLIC acid Yes [id number] 1mg Take 1 Univers 1 mg tablet 4-21 tablet by ity of 00:00: mouth [place] 00 daily. Medical Branch foLIC acid Yes [id number] 1mg Take 1 [facility] 1 mg tablet 4-21 tablet by ity of 00:00: mouth [place] 00 daily. Medical Branch foLIC acid 0 Yes [id number] 1mg Take 1 [facility] 1 mg tablet 4-21 tablet by ity of 00:00: mouth [place] 00 daily. Medical Branch foLIC acid Yes [id number] 1mg Take 1 [facility] 1 mg tablet 4-21 tablet by ity of 00:00: mouth [place] 00 daily. Medical Branch foLIC acid Yes [id number] 1mg Take 1 Univers 1 mg tablet 4-21 tablet by ity of 00:00: mouth [place] 00 daily. Medical Branch foLIC acid Yes [id number] 1mg Take 1 Univers 1 mg tablet -21 tablet by ity of 00:00: mouth [place] 00 daily. [facility] Branch foLIC acid Yes [id number] 1mg Take 1 Univers 1 mg tablet -21 tablet by ity of 00:00: mouth [place] 00 daily. [facility] Branch foLIC acid 2021- No [id number] 1mg Take 1 Univers 1 mg tablet 11-04 tablet by it y of 00:00: 00:00 mouth [place] 00 :00 daily. [facility] Branch thiamine 2021- No [id number] 100mg Take 1 Univers 100 mg 11-04 tablet by ity of tablet 00:00: 00:00 mouth [place] 00 :00 daily. [facility] Branch varenicline 2021- No [id number] Take one Univers (CHANTIX 11-03 0.5mg tab ity o f STARTING 00:00: 00:00 by mouth [place] MONTH BOX) 00 :00 once daily Med ical 0.5 mg for 3 Branch (11)- 1 mg days, then (42) tablet one 0.5mg tab twice daily for 4 days, then one 1mg tab twice daily. varenicline No [id number] 1mg Take 1 Univers (CHANTIX 11-03 tablet by ity o f CONTINUING 00:00: 00:00 mouth 2 [place] MONTH BOX) 00 :00 (two) Medical 1 mg tablet times Branch daily. iopamidol 2020- No [id number] 100mL 100 mL, Univers (ISOVUE 11-20 05-07 Intravenou ity o f 370-500 mL) 09:48: 10:00 s, ONCE, 1 [place] injection 00 :00 dose, Fri Medic al 100 mL 11/20/20 at Branch 0500, Routine ferrous Yes Acute on 325mg Take 1 Uni vers sulfate 11-20 chronic tablet by ity of (IRON) 325 00:00: anemia mouth 3 [place] mg (65 mg 00 (three) Medical iron) times Branch tablet daily with meals. 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 TECHNICIAN, 0 Chlordiazep 2021-0 No 50 mg, 2 Me moria oxide 3-03 cap, l 03:00: Route: PO, Drug form: CAP, Q12H, Dosing Weight 50, kg, Start date: 09/15/20 21:00:00 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 WASTE: F/P - P Waste Black; E - P Waste Black remove 2020-0 No Notes: Memoria patch 3-02 Remove old l 15:00: patch [place] 00 before applicatio n of new patch. 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 REFRIGERATION TECHNICIAN, Duration: 24 hr, Stop date: 09/15/20 8:00:00 HVAC REFRIGERATION TECHNICIAN, 0 Folic Acid No Notes: Memor ia 3-01 (Same as: l 15:00: Folvite) multivitami No 1 tab, Theo makayla n 3- Route: PO, l 15:00: Dosing Weight 50, kg, Daily, Start date: 09/14/20 9:00:00 HVAC REFRIGERATION TECHNICIAN, Duration: 5 day, Stop date: 09/18/20 9:00:00 HVAC REFRIGERATION TECHNICIAN Thiamine No Notes: Memoria 3- (Same As: l 15:00: Vitamin B1) multivitami No Notes: Theo makayla n with 3- (Same l minerals 15:00: as:Thera-M Her berkowitz 00 , Theragran- M) WASTE: F/P - Black; E - Municipal Trash Bin Give with food. Folic Acid No Notes: Memor ia 3-01 (Same as: l 15:00: Folvite) multivitami No 1 tab, Theo makayla n 3-01 Route: PO, l 15:00: Dosing Weight 50, kg, Daily, Start date: 09/14/20 9:00:00 HVAC REFRIGERATION TECHNICIAN, Duration: 5 day, Stop date: 09/18/20 9:00:00 HVAC REFRIGERATION TECHNICIAN Thiamine No Notes: Memoria 3-01 (Same As: l 15:00: Vitamin B1) multivitami No Notes: Theo makayla n with 3-01 (Same l minerals 15:00: as:Thera-M Her berkowitz 00 , Theragran- M) WASTE: F/P - Black; E - Municipal Trash Bin Give with food. 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, 0 Chlordiazep No 50 mg, 2 Me moria oxide 3-01 cap, l 00:00: Route: PO, [place] 00 Drug form: CAP, Q6H, Dosing Weight 50, kg, Start date: 09/13/20 18:00:00 HVAC REFRIGERATION TECHNICIAN, Duration: 24 hr, Stop date: 09/14/20 12:00:00 HVAC REFRIGERATION TECHNICIAN, 0 cefepime No Notes: Memoria 2-28 (Same As: l 22:00: Maxipime) MEDICATION WASTE Product Size: 1000 mg Product Wasted: ___ mg cefepime No Notes: Memoria - (Same As: l 22:00: Maxipime) MEDICATION WASTE Product Size: 1000 mg Product Wasted: ___ mg Lorazepam No Notes: Memori a - (Same as: l 21:44: Ativan) Lorazepam No Notes: Memori a - (Same as: l 21:44: Ativan) Lactated No 1,000 mL, Theo makayla Ringers IV 09-13 Rate: 125 l 1,000 mL 21:32: ml/hr, [place] 00 Infuse over: 8 hr, Route: IV, Dosing Weight 50 kg, Total Volume: 1,000, Start date: 09/13/20 15:32:00 HVAC REFRIGERATION TECHNICIAN, 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, Stop date: 10/13/20 15:31:00 CDT, 1.53, m2, 0 Ondansetron No Notes: Theo makayla - (Same as: l 21:32: Zofran) [place] 00 MEDICATION WASTE Product Size: 4 mg Product Wasted: ___ mg Hydromorpho No Notes: Theo makayla ne 09-13 Same as: l 21:32: Dilaudid Lactated No 1,000 mL, Theo makayla Ringers IV 09-13 Rate: 125 l 1,000 mL 21:32: ml/hr, [place] 00 Infuse over: 8 hr, Route: IV, Dosing Weight 50 kg, Total Volume: 1,000, Start date: 09/13/20 15:32:00 HVAC REFRIGERATION TECHNICIAN, 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, Stop date: 10/13/20 15:31:00 CDT, 1.53, m2, 0 Ondansetron No Notes: Theo makayla 2-28 (Same as: l 21:32: Zofran) [place] MEDICATION WASTE Product Size: 4 mg Product Wasted: ___ mg Hydromorpho No Notes: Theo makayla ne 2-28 Same as: l 21:32: Dilaudid [place] 00 Ceftriaxone No Notes: Theo makayla 2-28 (Same As: l 21:18: Rocephin). [place] 00 Use with 100 mL NS and infuse over 30 min MEDICATION WASTE Product Size: 1000 mg Product Wasted: ___ mg Ceftriaxone No Notes: Theo makayla 2-28 (Same As: l 21:18: Rocephin). [place] Use with 100 mL NS and infuse over 30 min MEDICATION WASTE Product Size: 1000 mg Product Wasted: ___ mg Saline No Notes: Memoria Flush 0.9% 2-28 (Same as: l 18:46: BD [place] 00 Posiflush) Sodium No 1,000 mL, Memori a Chloride 2-28 1000 l 0.9% 18:46: ml/hr, [place] (Bolus) IV 00 Infuse Over: 1 hr, Route: IV, 1,000, Drug form: INJ, ONCE, Priority: STAT, Dosing Weight 50 kg, Start date: 09/13/20 12:46:00 HVAC REFRIGERATION TECHNICIAN, Stop date: 09/13/20 12:46:00 HVAC REFRIGERATION TECHNICIAN, 0 Morphine No Notes: Memoria 2-28 (Same l 18:46: as:MORPhin [place] 00 e Sulfate) Ondansetron No Notes: Theo makayla 2-28 (Same as: l 18:46: Zofran) [place] 00 MEDICATION WASTE Product Size: 4 mg Product Wasted: ___ mg Saline No Notes: Memoria Flush 0.9% 2-28 (Same as: l 18:46: BD [place] 00 Posiflush) Sodium No 1,000 mL, Memori a Chloride 2-28 1000 l 0.9% 18:46: ml/hr, [place] (Bolus) IV 00 Infuse Over: 1 hr, Route: IV, 1,000, Drug form: INJ, ONCE, Priority: STAT, Dosing Weight 50 kg, Start date: 09/13/20 12:46:00 HVAC REFRIGERATION TECHNICIAN, Stop date: 09/13/20 12:46:00 HVAC REFRIGERATION TECHNICIAN, 0 Morphine No Notes: Memoria 2-28 (Same l 18:46: as:MORPhin [place] 00 e Sulfate) Ondansetron No Notes: Theo makayla 2- (Same as: l 18:46: Zofran) [place] 00 MEDICATION WASTE Product Size: 4 mg [...] Memoria 7-13 (Same as: l 22:22: Motrin) [place] 00 "Do Not Crush" Take with food. Motrin No Notes: Memoria 7-13 (Same as: l 22:22: Motrin) [place] 00 "Do Not Crush" Take with food. albuterol Yes 2{puff} Inhale 2 U nivers (VENTOLIN) 4-13 Puffs ity of 90 00:00: every 4 [place] mcg/actuati 00 (four) Medica l on inhaler hours as Branc h needed for Wheezing or Shortness of Breath. albuterol No 2{puff} Inhale 2 Univers (VENTOLIN) 4-13 [...] Immunizations Ordered Filled Immunization Date Status Comments [facility] Immunization Name Name Hepatitis B Adult 2022-03-[address] [facility] 00:00:00 [facility] Hepatitis B Adult 2022-03-[address] [facility] 00:00:00 [facility] Hepatitis B Adult 2022-03-[address] [facility] 00:00:00 [facility] SARS-COV-2 COVID-19 2021-06-04 Completed [facility] PFIZER VACCINE 00:00:00 [facility] SARS-COV-2 COVID-19 2021-06-04 Completed [facility]ive rs[facility] of PFIZER VACCINE 00:00:00 [facility] SARS-COV-2 COVID-19 2021-06-04 Completed [facility]ive rs[facility] of PFIZER VACCINE 00:00:00 [facility] SARS-COV-2 COVID-19 2021-06-04 Completed [facility]ive rs[facility] of PFIZER VACCINE 00:00:00 [facility] SARS-COV-2 COVID-19 2021-06-04 Completed [facility]ive rsity of PFIZER VACCINE 00:00:00 [facility] SARS-COV-2 COVID-19 2021-06-04 Completed [facility]ive rsity of PFIZER VACCINE 00:00:00 [facility] SARS-COV-2 COVID-19 2021-06-04 Completed [facility]ive rs[facility] of PFIZER VACCINE 00:00:00 [facility] SARS-COV-2 COVID-19 2021-06-04 Completed [facility]ive rsity of PFIZER VACCINE 00:00:00 [facility] SARS-COV-2 COVID-19 2021-06-04 Completed [facility]ive rsity of PFIZER VACCINE 00:00:00 [facility] SARS-COV-2 COVID-19 2021-06-04 Completed [facility]ive rsity of PFIZER VACCINE 00:00:00 [place] [facility] SARS-COV-2 COVID-19 2021-04-30 Completed [facility]ive rsity of PFIZER VACCINE 00:00:00 [facility] SARS-COV-2 COVID-19 2021-04-30 Completed [facility]ive rsity of PFIZER VACCINE 00:00:00 [facility] SARS-COV-2 COVID-19 2021-04-30 Completed [facility]ive rsity of PFIZER VACCINE 00:00:00 [facility] SARS-COV-2 COVID-19 2021-04-30 Completed [facility]ive rsity of PFIZER VACCINE 00:00:00 [facility] SARS-COV-2 COVID-19 2021-04-30 Completed [facility]ive rsity of PFIZER VACCINE 00:00:00 [facility] SARS-COV-2 COVID-19 2021-04-30 Completed Unive rsity of PFIZER VACCINE 00:00:00 [facility] SARS-COV-2 COVID-19 2021-04-30 Completed Unive rsity of PFIZER VACCINE 00:00:00 [facility] SARS-COV-2 COVID-19 2021-04-30 Completed Unive rsity of PFIZER VACCINE 00:00:00 [facility] SARS-COV-2 COVID-19 2021-04-30 Completed Unive rsity of PFIZER VACCINE 00:00:00 [facility] SARS-COV-2 COVID-19 2021-04-30 Completed Unive rsity of PFIZER VACCINE 00:00:00 [facility] Vital Signs Vital Name Observation Time Observation Value Comments Source Systolic blood 2022-03-28 103 mm[Hg] [facility] pressure 18:32:00 [facility] Diastolic blood 2022-03-28 56 mm[Hg] [place] o f pressure 18:32:00 [facility] Heart rate 2022-03-28 113 /min [facility] 18:32:00 [facility] Respiratory rate 2022-03-28 16 /min [facility] 18:32:00 [facility] Oxygen saturation 2022-03-28 99 /min [facility] Arterial blood 18:32:00 [facility] by Pulse oximetry [place] Body temperature 2022-03-28 36.61 Yas [facility] 16:40:00 [facility] Body height 2022-03-28 165.1 cm [facility] 16:40:00 [facility] Body weight 2022-03-28 50.803 kg University of 16:40:00 [facility] BMI 2022-03-28 18.64 kg/m2 University of 16:40:00 [facility] Systolic blood 2022-03-25 128 mm[Hg] [facility] pressure 15:32:00 [facility] Diastolic blood 2022-03-25 77 mm[Hg] University o f pressure 15:32:00 [facility] Heart rate 2022-03-25 105 /min University of 15:32:00 [facility] Body temperature 2022-03-25 37 Yas [facility] of 15:32:00 [facility] Respiratory rate 2022-03-25 20 /min University of 15:32:00 [facility] Oxygen saturation 2022-03-25 95 /min University of in Arterial blood 15:32:00 [place] [facility] by Pulse oximetry Branch Body weight 2022-03-22 51.8 kg University of 01:26:00 [facility] BMI 2022-03-22 19.00 kg/m2 University of 01:26:00 [facility] Body height 2022-03-21 165.1 cm University of 10:12:00 [facility] Systolic blood 2022-03-16 121 mm[Hg] [facility] pressure 16:54:00 [facility] Diastolic blood 2022-03-16 69 mm[Hg] University o f pressure 16:54:00 [facility] Heart rate 2022-03-16 97 /min University of 16:54:00 [facility] Body temperature 2022-03-16 36.33 Yas [facility] of 16:54:00 [facility] Respiratory rate 2022-03-16 18 /min University of 16:54:00 [facility] Oxygen saturation 2022-03-16 99 /min [facility] of in Arterial blood 16:54:00 [place] [facility] by Pulse oximetry Branch Body weight 2022-03-16 49.986 kg University of 08:58:00 [facility] BMI 2022-03-16 18.34 kg/m2 University of 08:58:00 [facility] Body height 2022-03-13 165.1 cm University of 07:30:00 [facility] HEIGHT 2022-03-11 165.1 cm 17:49:00 WEIGHT 2022-03-11 [...] 2022-02-08 114 mm[Hg] [facility] pressure 20:45:00 [facility] Diastolic blood 2022-02-08 71 mm[Hg] University o f pressure 20:45:00 [facility] Heart rate 2022-02-08 115 /min University 20:45:00 [facility] Body temperature 2022-02-08 37.22 Yas University 20:45:00 [facility] Body height 2022-02-08 165.1 cm University 20:45:00 [facility] Body weight 2022-02-08 44.861 kg University 20:45:00 [facility] BMI 2022-02-08 16.46 kg/m2 University 20:45:00 [facility] Oxygen saturation 2022-02-08 97 /min [facility] in Arterial blood 20:45:00 [facility] by Pulse oximetry [place] Systolic blood 2020-11-20 129 mm[Hg] [facility] pressure 10:29:00 [facility] Diastolic blood 2020-11-20 79 mm[Hg] [place] o f pressure 10:29:00 [facility] Heart rate 2020-11-20 63 /min University 10:29:00 [facility] Respiratory rate 2020-11-20 13 /min [facility] 10:29:00 [facility] Oxygen saturation 2020-11-20 99 /min [facility] in Arterial blood 10:29:00 [facility] by Pulse oximetry Branch Body temperature 2020-11-20 37 Yas [facility] 08:36:00 [facility] Body weight 2020-11-20 45.36 kg [facility] 08:36:00 [facility] BMI 2020-11-20 16.64 kg/m2 [facility] 08:36:00 [facility] Systolic blood 2022-03-12 130 mm[Hg] [facility] pressure 07:00:00 [facility] Diastolic blood 2022-03-12 89 mm[Hg] [facility] pressure 07:00:00 [facility] Heart rate 2022-03-12 91 /min [facility] 07:00:00 [facility] Body temperature 2022-03-[address] [facility] 07:[facility]:00 [facility] Oxygen saturation 2022-03-12 97 /[facility] in Arterial blood 07:00:00 [facility] nter by Pulse oximetry Respiratory rate 2022-03-12 18 /min [facility] 06:30:00 [facility] Body height 2022-03-[address] [facility] 17:49:00 [facility] Body weight 2022-03-[address] [facility] 17:49:00 [facility] BMI 2022-03-11 18.64 kg/m2 [facility] 17:49:00 [facility] [place] Systolic blood 2022-01-08 119 mm[Hg] [facility] pressure 07:05:00 Diastolic blood 2022-01-08 79 mm[Hg] [facility] h pressure 07:05:00 Heart rate 2022-01-08 101 /min Dany Pérez RN [facility] 07:05:00 Aware. Body temperature 2022-01-08 36.94 Yas [facility] 07:05:00 Respiratory rate 2022-01-08 20 /min [facility] 07:05:00 Oxygen saturation 2022-01-08 95 /min [facility] Ar[facility] 07:05:00 by Pulse oximetry Body height 2022-01-07 165.1 cm [facility] 20:42:00 Body weight 2022-01-07 44.453 kg [facility] 20:42:00 BMI 2022-01-07 16.31 kg/m2 [facility] 20:42:00 Systolic (mm Hg) 2020-09-15 [facility] rmann 00:09:00 Diastolic (mm Hg) 2020-09-15 [facility] ermann 00:09:00 Respitory Rate 2020-09-15 [facility] 00[facility]09[facility] Respitory Rate 2020-09-14 [facility] 17:56:00 Heart Rate 2020-09-14 [facility] 17:56:00 Systolic (mm Hg) 2020-09-14 [facility] rmann 17:56:00 Diastolic (mm Hg) 2020-09-14 [facility] ermann 17:56:00 Temperature Oral 2020-09-14 98.4 F [facility] rmann (F) 14:00:00 Heart Rate 2020-09-14 [facility] 14:00:00 Respitory Rate 2020-09-14 [facility] 14:00:00 Systolic (mm Hg) 2020-09-14 [facility] rmann 14:00:00 Diastolic (mm Hg) 2020-09-14 [facility] ermann 14:00:00 Temperature Oral 2020-09-14 98.3 F [facility] rmann (F) 09:40:00 Respitory Rate 2020-09-14 [facility] 09:40:00 Heart Rate 2020-09-14 [facility] 09:40:00 Systolic (mm Hg) 2020-09-14 [facility] 09:40:00 Diastolic (mm Hg) 2020-09-14 [facility] 09:40:00 Temperature Oral 2020-09-14 98.6 F [facility] (F) 05:30:00 Heart Rate 2020-09-14 [facility] [...] Rehan n 22:21:00 Systolic (mm Hg) 2020-01-27 Marisa Jennings rmann 22:21:00 Diastolic (mm Hg) 2020-01-27 Marisa Montero ermann 22:21:00 Heart Rate 2020-01-27 Marisa Van n 22:21:00 Respitory Rate 2020-01-27 Marisa Major eriac 22:21:00 Temperature Oral 2020-01-27 98.8 F Marisa Jennings rmann (F) 22:21:00 Procedures Procedure Date / Time Performing Clinician Source Performed CONSENT/REFUSAL FOR 2022-03-28 Doctor Unassigned, [facility] DIAGNOSIS AND TREATMENT 16:37:48 [facility] MAGNESIUM 2022-03-25 [facility] 11:14:00 [facility] BASIC METABOLIC PANEL (NA, 2022-03-25 [facility] K, CL, CO2, GLUCOSE, BUN, 11:14:00 [facility] CREATININE, CA) CBC WITH DIFF 2022-03-25 [facility] 11:14:00 [facility] BASIC METABOLIC PANEL (NA, 2022-03-24 Davida Wood [facility] K, CL, CO2, GLUCOSE, BUN, 14:11:00 [facility] CREATININE, CA) MAGNESIUM 2022-03-24 [facility] 07:35:00 [facility] BASIC METABOLIC PANEL (NA, 2022-03-24 [facility] K, CL, CO2, GLUCOSE, BUN, 07:35:00 [facility] CREATININE, CA) URINALYSIS 2022-03-24 [facility] 07:24:00 [facility] EXTRA TUBE URINE CULTURE 2022-03-24 [facility] 07:24:00 [facility] BASIC METABOLIC PANEL (NA, 2022-03-23 [facility] K, CL, CO2, GLUCOSE, BUN, 20:11:00 [facility] CREATININE, CA) MAGNESIUM 2022-03-23 [facility] 10:47:00 [facility] HEPATIC FUNCTION PANEL 2022-03-23 [facility] ([id number]) (ALB,T.PRO,BILI 10:47:00 [facility] T,BU/BC,ALT,AST,ALK PHOS) BASIC METABOLIC PANEL (NA, 2022-03-23 [facility] K, CL, CO2, GLUCOSE, BUN, 10:47:00 [facility] CREATININE, CA) CBC WITH DIFF 2022-03-23 [facility] xas 10:47:00 [facility] BASIC METABOLIC PANEL (NA, 2022-03-22 [facility] K, CL, CO2, GLUCOSE, BUN, 21:28:00 [facility] CREATININE, CA) BASIC METABOLIC PANEL (NA, 2022-03-22 [facility] K, CL, CO2, GLUCOSE, BUN, 14:46:00 Medica l Branch CREATININE, CA) BASIC METABOLIC PANEL (NA, 2022-03-22 [facility] K, CL, CO2, GLUCOSE, BUN, 09:56:00 [facility]ica l [facility] CREATININE, CA) CBC WITH DIFF 2022-03-22 [facility] 09:56:00 [facility] PROTHROMBIN TIME / INR 2022-03-22 [facility] 09:56:00 [facility] ACTIVATED PARTIAL THRMPLAS 2022-03-22 [facility] HEATHER 09:56:00 [facility] HEPATIC FUNCTION PANEL 2022-03-22 [facility] ([id number]) (ALB,T.PRO,BILI 06:12:00 [facility] T,BU/BC,ALT,AST,ALK PHOS) BASIC METABOLIC PANEL (NA, 2022-03-22 [facility] K, CL, CO2, GLUCOSE, BUN, 06:12:00 [facility]ica [facility] CREATININE, CA) HB ABO GROUPING 2022-03-21 [facility] xa 21:15:00 [facility] MISCELLANEOUS SEND OUT TEST 2022-03-[address] [facility] 21:11:00 [facility] VITAMIN K1, LEVEL 2022-03-21 [facility] 21:07:00 [facility] QUANTIFERON-TB ASSAY 2022-03-21 [facility] 21:07:00 [facility] SMOOTH MUSCLE AB,IGG 2022-03-21 [facility] W/REFLEX 21:06:00 [facility] [id number] 2022-03-21 [facility] [place] PHENOTYPE 21:06:00 [facility] VITAMIN E, SERUM OR PLASMA 2022-03-21 [facility] 21:06:00 [facility] VITAMIN A, SERUM OR PLASMA 2022-03-21 [facility] 21:06:00 [facility] CERULOPLASMIN 2022-03-21 [facility] 21:06:00 [facility] TEST, SERUM 2022-03-21 [facility] 21:06:00 [facility] IMMUNOGLOBULIN G A M PANEL 2022-03-21 [facility] 21:06:00 [facility] FREE T4 2022-03-21 [facility] 21:06:00 [facility] ALPHA FETOPROTEIN 2022-03-21 [facility] 21:06:00 [facility] IRON PANEL 2022-03-21 [facility]as 21:06:00 [facility] MEASLES IGG 2022-03-21 [facility] 21:06:00 [facility] RUBELLA SCREEN IGG 2022-03-21 [facility] 21:06:00 [facility] TOXOPLASMA IGG ANTIBODY 2022-03-21 [facility] 21:06:00 [facility] EBV NUCLEAR ANTIGEN IGG TEST 2022-03-21 [facility] 21:06:00 [facility] CYTOMEGALOVIRUS ANTIBODY IGG 2022-03-21 [facility] 21:06:00 [facility] VZV ANTIBODY SCREEN 2022-03-21 [facility] [place] 21:06:00 [facility] ANTI-NUCLEAR ANTIBODY SCREEN 2022-03-21 [facility] 21:06:00 [facility] CRYPTOCOCCAL ANTIGEN 2022-03-21 [facility] CSF/SERUM 21:06:00 [facility] HAV ANTIBODY (IGG AND IGM) 2022-03-21 [facility] 21:06:00 [facility] ANTI-NUCLEAR ANTIBODY TITER 2022-03-21 [facility] 21:06:00 [facility] VITAMIN D, 25-OH 2022-03-21 [facility] exas 21:06:00 [facility] HSV 1 AND 2 GLYCOPROTEIN G 2022-03-21 [facility] IGG 21:06:00 [facility] ANTI-SSA(RO) 2022-03-21 [facility] 21:06[facility]00 [facility] EXTRA TUBE LT. GREEN 2022-03-21 [facility] 21:06:00 [facility] GALV ONLY - SYPHILIS IGG/IGM 2022-03-21 [facility] 21:06:00 [facility] ANTI-NUCLEAR 2022-03-21 [facility] ANTIBODY-PATHOLOGIST 21:06:00 [facility] INTERPRETATION BASIC METABOLIC PANEL (NA, 2022-03-21 [facility] K, CL, CO2, GLUCOSE, BUN, 21:04:00 [facility] CREATININE, CA) URINALYSIS 2022-03-21 [facility] 20:07:00 [facility] URINE CULTURE 2022-03-21 [facility] 20:07:00 [facility] CREATININE, URINE RANDOM 2022-03-21 [facility] 20:07:00 [facility] TOTAL PROTEIN, URINE RANDOM 2022-03-21 [facility] 20:07:00 [facility] URINE DRUG (LCMSMS) - 2022-03-21 [facility] COMPREHENSIVE DRUG PANEL 20:07:00 [facility] OSMOLALITY URINE 2022-03-21 Gema Apple [facility] 20:06:00 [facility] SODIUM, URINE RANDOM 2022-03-21 [facility] 20:06:00 [facility] US ARTERIAL IN OR VENOUS OUT 2022-03-21 [facility] ABDOMEN LIMITED DOPPLER 18:59:24 [facility] GAMMA GLUTAMYLTRANSFERASE 2022-03-21 [facility] 15:06:00 [facility] FERRITIN SERUM 2022-03-21 [facility] 15:06:00 [facility] OSMOLALITY, SERUM OR PLASMA 2022-03-21 [facility] 15:06:00 [facility] TRIIODOTHYRONINE 2022-03-21 [facility] 15:06:00 [facility] THYROID STIMULATING HORMONE 2022-03-21 [facility] 15:06:00 [facility] BASIC METABOLIC PANEL (NA, 2022-03-21 [facility] K, CL, CO2, GLUCOSE, BUN, 15:06:00 Medica l Branch CREATININE, [place]) LIPID PANEL ([id number])(TOTAL 2022-03-21 [facility] CHOLESTEROL, TRIGLYCERIDES, 15:06:00 [facility] HDL) COMP. METABOLIC PANEL 2022-03-21 [id number] 10:20:00 [facility] ETHANOL 2022-03-21 [facility] 10:20:00 [facility] PROTHROMBIN TIME / INR 2022-03-[facility] 10:20[facility]00 [facility] FIBRINOGEN 2022-03-21 [facility] 10:20:00 [facility] ALBUMIN BODY FLUID 2022-03-21 [facility] [place] 07:45:00 [facility] T.PROTEIN BODY FLUID 2022-03-21 [facility] 07:45:00 [facility] BODY FLUID DIRECT COUNT [facility]22[facility]03-[facility] 07:[facility]00 [facility] BODY FLUID (BACTEC BOTTLE) 2022-03-21 Digna Callahan [facility] 07:45:00 [facility] AMMONIA, PLASMA 2022-03-21 Yamile Vivar [facility] 05:11:00 Wendi [facility] G6PD SCREENING TEST 2022-03-21 [facility] 05:11:00 [facility] HB ECG ROUTINE & RHYTHM 2022-03-[address] [facility] STRIP 02:20:13 [facility] LIPASE 2022-03-21 Tom [facility] exas 02:12:00 [facility] TROPONIN I 2022-03-21 Tom [facility] ex 02:12:00 [facility] COMP. METABOLIC PANEL 2022-03-[address] [facility] ([id number]) 02:12:00 [facility] ETHANOL 2022-03-21 Tom [facility] exas 02:12:00 [facility] CBC WITH DIFF 2022-03-[address] [facility] 02:12:00 [facility] N-TERMINAL PRO-BNP 2022-03-21 Tom [facility] 02:12:00 [facility] COVID-19 (ID NOW RAPID 2022-03-21 Tom [facility] TESTING) 02:12:00 [facility] LAB ONLY COVID 2022-03-[address] [facility] INTERPRETATION 02:12:00 [facility] XR CHEST 1 VW 2022-03-[address] [facility] 01:26:00 [facility] HOSPITAL ADMISSION 2022-03-20 Doctor Unassigned, [facility] 05:01:00 [place] [facility] POCT GLUCOSE (AUTOMATED) 2022-03-16 [facility] 16:53:00 [facility] POCT GLUCOSE (AUTOMATED) 2022-03-16 [facility] 13:22:00 [facility] LACTATE DEHYDROGENASE 2022-03-16 [place] Dangelo [facility] 09:17:00 [facility] MAGNESIUM 2022-03-16 [place] Dangelo [facility] xas 09:17:00 [facility] BASIC METABOLIC PANEL (NA, 2022-03-16 [place] Dangelo [facility] K, CL, CO2, GLUCOSE, BUN, 09:17:00 [facility] CREATININE, CA) CBC WITH DIFF 2022-03-16 [place] Dangelo [facility] xas 09:17:00 [facility] POCT GLUCOSE (AUTOMATED) 2022-03-16 [facility] 01:58:00 [facility] GLUCOSE BODY FLUID 2022-03-15 [facility] 22:25:00 [facility] T.PROTEIN BODY FLUID 2022-03-15 [facility] 22:25:00 [facility] LDH TOTAL BODY FLUID 2022-03-15 [facility] 22:25:00 [facility] BODY FLUID DIRECT COUNT 2022-03-15 [place] Dangelo [facility] 22:25:00 [facility] BODY FLUID 2022-03-15 [facility] CULTURE(AEROBIC/ANAEROBIC) 22:25:00 [facility] POCT GLUCOSE (AUTOMATED) 2022-03-15 [facility] 21:38:00 [facility] POCT GLUCOSE (AUTOMATED) 2022-03-15 [facility] 15:56:00 [facility] POCT GLUCOSE (AUTOMATED) 2022-03-15 [facility] 12:57:00 [facility] MAGNESIUM 2022-03-15 Ant[facility] xas 09:30:00 [facility] COMP. METABOLIC PANEL 2022-03-15 [facility] ([id number]) 09:30:00 [facility] CBC WITH DIFF 2022-03-15 [place] Dangelo [facility] xas 09:30:00 [facility] POCT GLUCOSE (AUTOMATED) 2022-03-15 [facility] 01:54:00 [facility] POCT GLUCOSE (AUTOMATED) 2022-03-14 [facility] 21:22:00 [facility] POCT GLUCOSE (AUTOMATED) 2022-03-14 [facility] 16:40:00 [facility] POCT GLUCOSE (AUTOMATED) 2022-03-14 [facility] 12:51:00 [facility] MAGNESIUM 2022-03-14 [place] Dangelo [facility] xas 08:54:00 [facility] BASIC METABOLIC PANEL (NA, 2022-03-14 [place] Dangelo [facility] K, CL, CO2, GLUCOSE, BUN, 08:54:00 [facility] CREATININE, CA) CBC WITH DIFF 2022-03-14 [place] Dangelo [facility] xas 08:54:00 [facility] POCT GLUCOSE (AUTOMATED) 2022-03-14 [facility] 01:19:00 [facility] POCT GLUCOSE (AUTOMATED) 2022-03-13 [facility] 21:38:00 [facility] POCT GLUCOSE (AUTOMATED) 2022-03-13 Daw[facility] 18:09:00 [facility] TEST, SERUM 2022-03-13 Robles Hernandez [facility] 04:05:00 [facility] COMP. METABOLIC PANEL 2022-03-13 Robles Hernandez [facility] ([id number]) 04:05:[address] [facility] [address] HEAD WO CONTRAST 2022-03-13 Robles Hernandez [facility] 03:18:54 [facility] XR CHEST 1 VW 2022-03-13 Robles Hernandez [facility] 03:17:50 [facility] BLOOD CULTURE SCREEN 2022-03-13 Robles Hernandez [facility] 02:57:00 [facility] LIPASE 2022-03-13 Robles Hernandez [facility] 02:57:00 [facility] AMMONIA, PLASMA 2022-03-13 Robles Hernandez [facility] 02:57:00 [facility] TROPONIN I 2022-03-13 Robles Hernandez [facility] 02:57:00 [facility] CBC WITH DIFF 2022-03-13 Robles Hernandez [facility] 02:57:00 [facility] PROTHROMBIN TIME / INR 2022-03-13 [facility] 02:57:00 [facility] N-TERMINAL PRO-BNP 2022-03-13 Robles Hernandez [facility] 02:57:00 [facility] RAPID INFLUENZA A/B 2022-03-13 Robles Hernandez [facility] 02:48:00 [facility] COVID-19 (ID NOW RAPID 2022-03-13 [facility] TESTING) 02:48:00 [facility] LAB ONLY COVID 2022-03-13 Robles Hernandez [facility] INTERPRETATION 02:48:00 [facility] ED ECG INTERPRETATION 2022-03-12 Tanisha Quiroz [facility] 08:36:10 [facility] ECG 12-LEAD 2022-03-12 Unknown, Hl7 Doctor [facility] 06:37:07 [facility] ECG 12-LEAD 2022-03-12 Unknown, Hl7 Doctor [facility] 06:37:07 [facility] ECG 12-LEAD 2022-03-[address] [facility] 06:35:45 [facility] ECG 12-LEAD 2022-03-12 Unknown, Hl7 Doctor [facility] 06:35:45 [facility] ECG 12-LEAD 2022-03-12 Unknown, Hl7 Doctor [facility] 06:35:45 [facility] CBC W/PLT COUNT & AUTO 2022-03-[address] [facility] DIFFERENTIAL 00:56:00 [facility] COMPREHENSIVE METABOLIC 2022-03-[address] [facility] PANEL 00:56:00 [facility] CBC W/PLT COUNT & AUTO 2022-03-[address] [facility] DIFFERENTIAL 00:56:00 [facility] POCT-GLUCOSE METER 2022-03-[address] [facility] 08:37:00 [facility] XR CHEST 1 VIEW PORTABLE / 2022-03-11 Jen Anne [facility] B[facility] 06:59:00 [facility] CBC (HEMOGRAM ONLY) 2022-03-[address] [facility] 04:18:00 [facility] COMPREHENSIVE METABOLIC 2022-03-[address] [facility] PANEL 04:18:00 [facility] PHOSPHORUS 2022-03-[address] [facility] 04:18:00 [facility] MAGNESIUM 2022-03-[address] [facility] 04:18:00 [facility] CALCIUM, IONIZED 2022-03-11 Trevon Espinoza Artur [facility] 04:18:00 [facility] FIBRINOGEN 2022-03-[address] [facility] 04:18:00 [facility] LACTIC ACID, ARTERIAL 2022-03-[address] [facility] 04:18:00 [facility] PROTHROMBIN TIME/INR 2022-03-[address] [facility] 04:18:00 [facility] EKG-SCANNED 2022-03-11 Provider, Ozzie [facility] 00:00:00 [facility] POCT-GLUCOSE METER 2022-03-10 Civunigunta, [facility] 20:53:00 [facility] POCT-GLUCOSE METER 2022-03-10 Civunigunta, [facility] 17:11:00 [facility] POCT-GLUCOSE METER 2022-03-10 Civunigunta, [facility] 13:17:00 [facility] CBC (HEMOGRAM ONLY) 2022-03-[address] [facility] 06:16:00 [facility] COMPREHENSIVE METABOLIC 2022-03-[address] [facility] PANEL 06:16:00 [facility] PHOSPHORUS 2022-03-[address] [facility] 06:16:00 [facility] MAGNESIUM 2022-03-10 Trevon Espinoza Artur [facility] 06:16:00 [facility] CALCIUM, IONIZED 2022-03-[address] [facility] 06:16:00 [facility] FIBRINOGEN 2022-03-[address] [facility] 06:16:00 [facility] LACTIC ACID, ARTERIAL 2022-03-[address] [facility] 06:16:00 [facility] PROTHROMBIN TIME/INR 2022-03-[address] [facility] 06:16:00 [facility] POCT-GLUCOSE METER 2022-03-09 [facility] 21:09:00 [facility] HEREDITARY HEMOCHROMATOSIS 2022-03-09 Juan Maki [facility] 15:20:00 [facility] POCT-GLUCOSE METER 2022-03-09 [place], [facility] 11:07:00 [facility] POCT-GLUCOSE METER 2022-03-09 Civunigunta, [facility] 07:30:00 [facility] XR CHEST 1 VIEW PORTABLE / 2022-03-09 [facility] 07:09:00 [facility] SARS-COV2/RT-PCR (SLHS & REF 2022-03-[address] [facility] LABS) 05:25:00 [facility] CBC (HEMOGRAM ONLY) 2022-03-[address] [facility] 04:37:00 [facility] COMPREHENSIVE METABOLIC 2022-03-[address] [facility] PANEL 04:37:00 [facility] PHOSPHORUS 2022-03-[address] [facility] 04:37:00 [facility] MAGNESIUM 2022-03-[address] [facility] 04:37:00 [facility] CALCIUM, IONIZED 2022-03-[address] [facility] 04:37:00 [facility] FIBRINOGEN 2022-03-[address] [facility] 04:37:00 [facility] LACTIC ACID, ARTERIAL 2022-03-[address] [facility] 04:37:00 [facility] PROTHROMBIN TIME/INR 2022-03-[address] [facility] 04:37:00 [facility] POCT-GLUCOSE METER 2022-03-08 [facility] 21:07:00 [facility] POCT-GLUCOSE METER 2022-03-08 [place], [facility] 17:09:00 [facility] POCT-GLUCOSE METER 2022-03-08 [place], [facility] 10:58:00 [facility] POTASSIUM 2022-03-[address] [facility] 10:08:00 [facility] PHOSPHORUS 2022-03-[address] [facility] 07:54:00 [facility] POCT-GLUCOSE METER 2022-03-08 Civ[place]un[place], [facility] 07:29:00 [facility] POCT-GLUCOSE METER 2022-03-08 Civunigunta, [facility] 06:57:00 [facility] BLOOD GAS, ARTERIAL 2022-03-[address] [facility] 03:54:00 [facility] CBC (HEMOGRAM ONLY) 2022-03-[address] [facility] 03:53:00 [facility] COMPREHENSIVE METABOLIC 2022-03-[address] [facility] PANEL 03:53:00 [facility] PHOSPHORUS 2022-03-[address] Chao [facility] 03:53:00 [facility] MAGNESIUM 2022-03-08 [address] Chao [facility] 03:53:00 [facility] CALCIUM, IONIZED 2022-03-[address] [facility] 03:53:00 [facility] FIBRINOGEN 2022-03-[address] [facility] 03:53:00 [facility] LACTIC ACID, ARTERIAL 2022-03-08 Espinoza Trevon Siddiqui [facility] 03:53:00 [facility] PROTHROMBIN TIME/INR 2022-03-[address] [facility] 03:53:00 [facility] HEPATITIS A ANTIBODY, IGG 2022-03-[address] [facility] 03:53:00 [facility] HEREDITARY HEMOCHROMATOSIS 2022-03-08 Yrn Aleman [facility] 03:53:00 [facility] CMV PCR, QUANTITATIVE 2022-03-[address] [facility] 03:53:00 [facility] OXYGEN SATURATION, MEASURED 2022-03-[address] [facility] 03:48:00 [facility] XR CHEST 1 VIEW PORTABLE / 2022-03-08 eJn Anne [facility] 02:45:00 [facility] POCT-GLUCOSE METER 2022-03-[address] [facility] 22:24:00 [facility] POTASSIUM 2022-03-[address] [facility] 22:18:00 [facility] POTASSIUM 2022-03-[address] [facility] 17:49:00 [facility] MAGNESIUM 2022-03-[address] [facility] 17:49:00 [facility] POCT-GLUCOSE METER 2022-03-[address] [facility] 16[facility]12[facility] POCT-GLUCOSE METER 2022-03-[address] [facility] 09:46:00 [facility] CALCIUM, IONIZED 2022-03-[address] [facility] 04:17:00 [facility] CBC (HEMOGRAM ONLY) 2022-03-[address] [facility] 03:37:00 [facility] COMPREHENSIVE METABOLIC 2022-03-[address] [facility] PANEL 03:37:00 [facility] PHOSPHORUS 2022-03-07 Berta Espinozanany Artur [facility] 03:37:00 [facility] MAGNESIUM 2022-03-[address] [facility] 03:37:00 [facility] FIBRINOGEN 2022-03-[address] [facility] 03:37:00 [facility] LACTIC ACID, ARTERIAL 2022-03-[address] [facility] 03:37:00 [facility] PROTHROMBIN TIME/INR 2022-03-[address] [facility] 03:37:00 [facility] BLOOD GAS, ARTERIAL 2022-03-[address] [facility] 03:36:00 [facility] XR CHEST 1 VIEW PORTABLE / 2022-03-07 Jen Anne [facility] 01:25:00 [facility] VANCOMYCIN LEVEL, TROUGH 2022-03-[address] [facility] 00:13:00 [facility] POCT-GLUCOSE METER 2022-03-[address] [facility] 16:30:00 [facility] BRONCHIAL CULTURE + GRAM 2022-03-[address] [facility] STAIN 12:24:00 [facility] AFB CULTURE + SMEAR 2022-03-[address] [facility] (NON-SPUTUM) 12:24:00 [facility] FUNGUS CULTURE + SMEAR 2022-03-[address] [facility] 12:24:00 [facility] SPIN/CONCENTRATION CHARGE 2022-03-[address] [facility] 12:24:00 [facility] BLOOD GAS, ARTERIAL 2022-03-[address] [facility] 12:23:00 [facility] POCT-GLUCOSE METER 2022-03-[address] [facility] 12:23:00 [facility] BLOOD GAS, ARTERIAL 2022-03-06 Trevon Espinoza Artur [facility] 04:24:00 [facility] ECG 12-LEAD 2022-03-06 Unknown, Hl7 Doctor [facility] 04:18:31 [facility] ECG 12-LEAD 2022-03-06 Unknown, Hl7 Doctor [facility] 04:18:31 [facility] ECG 12-LEAD 2022-03-06 Unknown, Hl7 Doctor [facility] 04:18:31 [facility] ECG 12-LEAD 2022-03-06 Unknown, Hl7 Doctor [facility] 04:10:50 [facility] ECG 12-LEAD 2022-03-06 Unknown, Hl7 Doctor [facility] 04:10:50 [facility] CBC (HEMOGRAM ONLY) 2022-03-[address] [facility] 04:05:00 [facility] COMPREHENSIVE METABOLIC 2022-03-[address] [facility] PANEL 04:05:00 [facility] PHOSPHORUS 2022-03-[address] [facility] 04:05:00 [facility] MAGNESIUM 2022-03-[address] [facility] 04:05:00 [facility] CALCIUM, IONIZED 2022-03-[address] [facility] 04:05:00 [facility] FIBRINOGEN 2022-03-[address] [facility] 04:05:00 [facility] LACTIC ACID, ARTERIAL 2022-03-[address] [facility] 04:05:00 [facility] PROTHROMBIN TIME/INR 2022-03-[address] [facility] 04:05:00 [facility] OXYGEN SATURATION, MEASURED 2022-03-[address] [facility] 04:05:00 [facility] POCT-GLUCOSE METER 2022-03-[address] [facility] 01:08:00 [facility] XR CHEST 1 VIEW PORTABLE / 2022-03-06 Jen Anne [facility] 00:54:00 [facility] POCT-GLUCOSE METER 2022-03-[address] [facility] 19:57:00 [facility] POCT-GLUCOSE METER 2022-03-[address] [facility] 18:18:00 [facility] BLOOD GAS, ARTERIAL 2022-03-[address] [facility] 15:35:00 [facility] BLOOD GAS, ARTERIAL 2022-03-[address] [facility] 14:42:00 [facility] POCT-GLUCOSE METER 2022-03-[address] [facility] 12:42:00 [facility] MR ABDOMEN WITH & WITHOUT IV 2022-03-[address] [facility] CONTRAST 11:40:00 [facility] XR CHEST 1 VIEW PORTABLE / 2022-03-05 Dat Grajeda [facility] 11:37:00 [facility] POCT-GLUCOSE METER 2022-03-[address] [facility] 05:45:00 [facility] BLOOD GAS, ARTERIAL 2022-03-[address] [facility] 04:55:00 [facility] CBC (HEMOGRAM ONLY) 2022-03-[address] [facility] 04:54:00 [facility] COMPREHENSIVE METABOLIC 2022-03-[address] [facility] PANEL 04:54:00 [facility] PHOSPHORUS 2022-03-[address] [facility] 04:54:00 [facility] MAGNESIUM 2022-03-[address] [facility] 04:54:00 [facility] CALCIUM, IONIZED 2022-03-[address] [facility] 04:54:00 [facility] FIBRINOGEN 2022-03-[address] [facility] 04:54:00 [facility] LACTIC ACID, ARTERIAL 2022-03-[address] [facility] 04:54:00 [facility] PROTHROMBIN TIME/INR 2022-03-[address] [facility] 04:54:00 [facility] OXYGEN SATURATION, MEASURED 2022-03-[address] [facility] 04:54:00 [facility] PREPARE CRYOPRECIPITATE 2022-03-[address] [facility] 23:54:00 [facility] POCT-GLUCOSE METER 2022-03-[address] [facility] 23:43:00 [facility] POCT-GLUCOSE METER 2022-03-[address] [facility] 17:55:00 [facility] CORTISOL,60 MIN 2022-03-[address] [facility] 15:48:00 [facility] CORTISOL,30 MIN 2022-03-04 Alexis Trevon [address]iddiqui [facility] 15:13:00 [facility] POCT-GLUCOSE METER 2022-03-[address] [facility] 15:02:00 [facility] OXYGEN SATURATION, MEASURED 2022-03-[address] [facility] 14:42:00 [facility] US GUIDE, VASCULAR ACCESS 2022-03-04 [address] [facility] 13:14:12 [facility] AMMONIA 2022-03-[address] [facility] 12:26:00 [facility] XR CHEST 1 VIEW PORTABLE / 2022-03-04 Jen Anne [facility] 12:14:00 [facility] ACTH STIMULATION 2022-03-[address] [facility] 12:11:00 [facility] VANCOMYCIN LEVEL, TROUGH 2022-03-[address] [facility] 12:11:00 [facility] CORTISOL,BASELINE 2022-03-[address] [facility] 12:11:00 [facility] MISCELLANEOUS LAB ORDER 2022-03-[address] [facility] 10:19:00 [facility] T SPOT TB 2022-03-[address] [facility] 10:19:00 [facility] VITAMIN B12 2022-03-[address] [facility] 10:19:00 [facility] URINALYSIS W/ REFLEX URINE 2022-03-04 [facility] 10:16:00 [facility] POCT-GLUCOSE METER 2022-03-[address] [facility] 06:41:00 [facility] CBC (HEMOGRAM ONLY) 2022-03-04 Jer[facility]ley [facility] 04:10:00 [facility] COMPREHENSIVE METABOLIC 2022-03-[address] [facility] PANEL 04:10:00 [facility] PHOSPHORUS 2022-03-[address]ao [facility] 04:10:00 [facility] MAGNESIUM 2022-03-04 [address]ao [facility] 04:10:00 [facility] CALCIUM, IONIZED 2022-03-[address] Esp[address] [facility] 04:10:00 [facility] BLOOD GAS, VENOUS 2022-03-[address] [facility] 04:10:00 [facility] FIBRINOGEN 2022-03-[address] [facility] 04:10:00 [facility] PERIPHERAL BLOOD SMEAR - 2022-03-[address] [facility] PATHOLOGIST REVIEW 04:10:00 [facility] RETICULOCYTE COUNT 2022-03-[address] [facility] 04:10:00 [facility] (MANUAL DIFFERENTIAL) 2022-03-[address] [facility] 04:10:00 [facility] CORTISOL 2022-03-[address] [facility] 00:55:00 [facility] POCT-GLUCOSE METER 2022-03-04 [address] [facility] 00:43:00 [facility] PHOSPHORUS 2022-03-[address] [facility] 22:06:00 [facility] CALCIUM, IONIZED 2022-03-[address] [facility] 22:06:00 [facility] BASIC METABOLIC PANEL (7) 2022-03-[address] [facility] 22:06:00 [facility] LACTIC ACID, VENOUS 2022-03-[address] [facility] 22:06:00 [facility] CBC (HEMOGRAM ONLY) 2022-03-[address] [facility] 22:06:00 [facility] HC CAROTID DOPPLER GERALDO 2022-03-03 Lele Hannah [facility] 21:30:00 [facility] POCT-GLUCOSE METER 2022-03-03 Moshe [address]div[address]ique [facility] 19:57:00 [facility] POCT-GLUCOSE METER 2022-03-03 [address] [facility] 18:22:00 [facility] TRANSFUSE CRYOPRECIPITATE 2022-03-[address] [facility] 16:15:00 [facility] ECG 12-LEAD 2022-03-03 Unknown, Hl7 Doctor [facility] 15:06:51 [facility] ECG 12-LEAD 2022-03-03 Unknown, Hl7 Doctor [facility] 15:06:51 [facility] ECG 12-LEAD 2022-03-03 Unknown, Hl7 Doctor [facility] 15:06:51 [facility] ECHO W CONTRAST & DOPPLER 2022-03-03 Brielle, Lele Saldaña [facility] 13:59:05 [facility] ABORH, MANUAL 2022-03-[address] [facility] 13:54:00 [facility] BLOOD GAS, ARTERIAL 2022-03-03 Brielle, Lele Saldaña [facility] 13:44:00 [facility] POCT-GLUCOSE METER 2022-03-[address] [facility] 13:39:00 [facility] CALCIUM, IONIZED 2022-03-03 Brielle, Lele Saldaña [facility] 13:34:00 [facility] TYPE AND SCREEN, AUTOMATED 2022-03-[address] [facility] 13:32:00 [facility] CBC W/PLT COUNT & AUTO 2022-03-[address] [facility] DIFFERENTIAL 13:22:00 [facility] URIC ACID 2022-03-03 Brielle, Lele Saldaña [facility] 13:22:00 [facility] COMPREHENSIVE METABOLIC 2022-03-03 Brielle, Lele Saldaña [facility] PANEL 13:22:00 [facility] BILIRUBIN, DIRECT 2022-03-03 Brielle, Le[facility] Saldaña [facility] 13:22:00 [facility] [facility] GAMMA GLUTAMYL TRANSFERASE 2022-03-[address] [facility] (GGT) 13:22:00 [facility] MAGNESIUM 2022-03-03 Brielle, Lele Saldaña [facility] 13:22:00 [facility] PHOSPHORUS 2022-03-03 Brielle, Lele Saldaña [facility] 13:22:00 [facility] ZINC 2022-03-03 Brielle, Lele Saldaña [facility] 13:22:00 [facility] ALPHA-1 ANTITRYPSIN MUTATION 2022-03-03 Brielle, Lele Saldaña [facility] ANALYSIS 13:22:00 [facility] LIPID PANEL 2022-03-03 Brielle, Lele Saldaña [facility] 13:22:00 [facility] Center CBC W/PLT COUNT & AUTO 2022-03-03 Lakeisha Shields [facility] DIFFERENTIAL 13:22:00 [facility] VITAMIN D, 25-HYDROXY 2022-03-03 Brielle, Lele Saldaña [facility] 13:21:00 [facility] Center RUBELLA ANTIBODY, IGG 2022-03-03 Brielle, Lele Saldaña [facility] 13:21:00 [facility] VARICELLA ZOSTER ANTIBODY, 2022-03-03 Brielle, Lele Bowen [facility] IGG 13:21:00 [facility] T3 2022-03-03 Brielle, Lele Saldaña [facility] 13:21:00 [facility] RPR 2022-03-03 Brielle, Lele Saldaña [facility] 13:21:00 [facility] Center ANTI-NUCLEAR ANTIBODY (EMILIANO) 2022-03-03 Brielle, Lele Saldaña [facility] 13:20:00 [facility] Center RUBEOLA ANTIBODY IGG 2022-03-03 Brielle, Lele Saldaña [facility] 13:20:00 [facility] CRYPTOCOCCAL ANTIGEN 2022-03-03 Brielle, Lele Saldaña [facility] 13:20:00 [facility] IRON, TIBC, % SAT. (WITHOUT 2022-03-03 Brielle, Lele Saldaña [facility] FERRITIN) 13:20:00 [facility] FERRITIN 2022-03-03 Brielle, Lele Saldaña [facility] 13:20:00 [facility] TRANSFERRIN 2022-03-03 Brielle, Lele Saldaña [facility] 13:20:00 [facility] ALPHA FETOPROTEIN (AFP), 2022-03-03 Brielle, Lele Saldaña [facility] TUMOR MARKER 13:20:00 [facility] CARCINOEMBRYONIC ANTIGEN 2022-03-03 Brielle, Lele Saldaña [facility] (CEA) 13:20:00 [facility] TSH 2022-03-03 Brielle, Lele Saldaña [facility] 13:20:00 [facility] T4 2022-03-03 Brielle, Lele Saldaña [facility] 13:20:00 [facility] Center HEPATITIS B SURFACE ANTIBODY 2022-03-03 Brielle, Lele Saldaña [facility] 13:20:00 [facility] HEPATITIS B CORE ANTIBODY, 2022-03-03 Brielle, [facility] Bowen [facility] TOTAL 13:20:00 [facility] Center CYTOMEGALOVIRUS ANTIBODY, 2022-03-03 Brielle, Leel Saldaña [facility] IGG 13:20:00 [facility] Center EBV ANTIBODY, IGM 2022-03-03 Brielle, Lele [facility] 13:20:00 [facility] Center HC LAB HIV-1 AG W/HIV-1&2 AB 2022-03-03 Brielle, Lele Saldaña [facility] 13:20:00 [facility] EMILIANO TITER AND PATTERN 2022-03-03 Brielle, Lele Saldaña [facility] 13:20:00 [facility] MUMPS ANTIBODY, IGG 2022-03-03 Brielle, Lele Saldaña [facility] 13:19:00 [facility] CERULOPLASMIN 2022-03-03 Brielle, Lele Saldaña [facility] 13:19:00 [facility] CARBOHYDRATE ANTIGEN 19-9 2022-03-03 Brielle, Lele Saldaña [facility] (CA 19-9) 13:19:00 [facility] ETHANOL 2022-03-[address] [facility] 13:19:00 [facility] ACTIN (SMOOTH MUSCLE) 2022-03-03 Lele Hannah [facility] ANTIBODY, IGG 13:18:00 [facility] MITOCHONDRIA M2 ANTIBODY 2022-03-03 Brielle, Lele Saldaña [facility] (IGG) 13:18:00 [facility] MXNED-3-VSWNLSLSWVA\\, SERUM 2022-03-[address] [facility] 13:18:00 [facility] POCT-GLUCOSE METER 2022-03-[address] [facility] 13:11:00 [facility] AFB CULTURE + SMEAR 2022-03-[address] [facility] (NON-SPUTUM) 12:40:00 [facility] BRONCHIAL CULTURE + GRAM 2022-03-[address] [facility] STAIN 12:40:00 [facility] FUNGUS CULTURE + SMEAR 2022-03-03 [facility] 12:40:00 [facility] DRUG SCREEN, URINE, 2022-03-[address] [facility] TRANSPLANT 12:40:00 [facility] SPIN/CONCENTRATION CHARGE 2022-03-03 Trevon [address] [facility] 12:40:00 [facility] SCREEN, URINE 2022-03-[address] [facility] 12:18:00 [facility] US ABDOMEN COMPLETE 2022-03-[address] [facility] 11:46:00 [facility] US DOPPLER 2022-03-[address] [facility] 11:46:00 [facility] FIBRINOGEN 2022-03-03 Shamshirselijah, Amir [facility] 10:45:00 [facility] PROTHROMBIN TIME/INR 2022-03-03 Shamshirsaz, Amir [facility] 10:45:00 [facility] APTT 2022-03-[address] [facility] 10:45:00 [facility] BLOOD GAS, VENOUS 2022-03-03 Shamshirsaz, Amir [facility] 07:55:00 [facility] THROMBOELASTOGRAPH (TEG) 2022-03-03 [facility] 07:55:00 [facility] XR CHEST 1 VIEW PORTABLE / 2022-03-03 Jeramy Harley [facility] BEDSIDE 02:33:00 [facility] XR ABDOMEN / KUB 1 VIEW 2022-03-[address] [facility] 02:30:00 [facility] BLOOD CULTURE 2022-03-[address] [facility] 02:21:00 [facility] PROTHROMBIN TIME/INR 2022-03-[address] [facility] 02:21:00 [facility] APTT 2022-03-[address] [facility] 02:21:00 [facility] COMPREHENSIVE METABOLIC 2022-03-[address] [facility] PANEL 02:21:00 [facility] MAGNESIUM 2022-03-03 Harley, Jeramy [facility] 02:21:00 [facility] Center LACTIC ACID, VENOUS 2022-03-[address] [facility] 02:21:00 Medical Center FIBRINOGEN 2022-03-[address] [facility] 02:21:00 [facility] CBC (HEMOGRAM ONLY) 2022-03-[address] [facility] 02:21:00 [facility] Center HEMOGLOBIN A1C 2022-03-[address] [facility] 02:21:00 [facility] Center BLOOD CULTURE 2022-03-[address] [facility] 02:20:00 [facility] Center HEPATITIS B SURFACE ANTIGEN 2022-02-[address] [facility] 19:11:00 [facility] Center HEPATITIS A ANTIBODY, IGM 2022-02-[address] [facility] 19:11:00 [facility] Center HEPATITIS B CORE ANTIBODY, 2022-02-[address] [facility] IGM 19:11:00 [facility] Center HEPATITIS C ANTIBODY 2022-02-[address] [facility] 19:11:00 [facility] Center EXTERNAL PROVIDER RECORDS 2022-02-25 Doctor Unassigned, [facility] 05:01:00 [facility] CONSULT CLINICAL CASE 2022-01-08 Annel Leon daniela lt MANAGEMENT (RN/SW) 08:15:17 CONSULT CLINICAL CASE 2022-01-07 Heber Arana daniela lt MANAGEMENT (RN/SW) 22:38:01 CBC/DIFF 2022-01-07 Sulema Woodard [facility] 20:26:00 BASIC METABOLIC PANEL 2022-01-07 Sulema Woodard [facility] 20:26:00 ALCOHOL, MEDICAL USE ONLY 2022-01-07 [facility] 20:26:00 CK, TOTAL 2022-01-07 Sulema Woodard [facility] 20:26:00 CBC 2022-01-07 Sulema Woodard [facility] 20:26:00 12 LEAD EKG 2022-01-07 Heber Arana [facility] 16:30:01 CT ANGIOGRAM ABDOMEN/PELVIS 2020-11-20 [facility] 09:48:33 Medical Branch POCT TEST 2020-11-20 [facility] [place] 09:27:00 Medical Branch BILI UNCONJUGATED/BILI 2020-11-20 [facility] CONJUG 08:54:00 Medical Branch COMP. METABOLIC PANEL 2020-11-20 [facility] ([id number]) 08:54:00 Medical Branch CBC WITH DIFF 2020-11-20 [facility] xas 08:54:00 Medical Branch PROTHROMBIN TIME / INR 2020-11-20 [facility] 08:54:00 [facility] Branch POCT GLUCOSE (AUTOMATED) 2020-11-20 Doctor Unassigned, [facility] 08:36:00 [facility] Plan of Care Planned Activity Planned Date Details Comments Source Future Scheduled 2022-04-16 IMM Influenza [facility] 00:00:00 Seasonal (>/= 19 yrs) [code = IMM Influenza Seasonal (>/= 19 yrs)] Future Scheduled 2022-04-16 [facility]MM Influenza [facility] 00:00:00 Seasonal (>/= 19 yrs) [code = IMM Influenza Seasonal (>/= 19 yrs)] Future Scheduled 2022-03-[address] [facility] Test 00:00:00 (#1) [code = Medical Center INFLUENZA VACCINE (#1)] Future Scheduled 2022-03-[address] [facility] Test 00:00:00 (#1) [code = Medical Center INFLUENZA VACCINE (#1)] Future Scheduled 2022-03-[address] [facility] Test 00:00:00 (#1) [code = Medical Center INFLUENZA VACCINE (#1)] Future Scheduled 2021-11-02 COVID-19 VACCINE ([address] [facility] Test 00:00:00 - Booster for Medical Center Pfizer series) [code = COVID-19 VACCINE (3 - Booster for Pfizer series)] Future Scheduled 2021-11-02 COVID-19 VACCINE ([address] [facility] Test 00:00:00 - Booster for Medical Center Pfizer series) [code = COVID-19 VACCINE (3 - Booster for Pfizer series)] Future Scheduled 2021-11-02 COVID-19 VACCINE ([address] [facility] Test 00:00:00 - Booster for Medical Center Pfizer series) [code = COVID-19 VACCINE (3 - Booster for Pfizer series)] Future Scheduled 2021-07-[address] [facility] Test 00:00:00 SCREENING (12+) Medical Cent er [code = DEPRESSION SCREENING (12+)] Future Scheduled 2021-07-[address] [facility] Test 00:00:00 SCREENING (12+) Medical Cent er [code = DEPRESSION SCREENING (12+)] Future Scheduled 2021-07-[address] [facility] Test 00:00:00 SCREENING (12+) Medical Cent er [code = DEPRESSION SCREENING (12+)] Future Scheduled 2021-03-17 INFLUENZA VACCINE Univer sity of Test 00:00:00 (Season Ended) [facility] [code = INFLUENZA Branch VACCINE (Season Ended)] Future Scheduled 2016 Screening for [facility] 00:00:00 malignant neoplasm of cervix (procedure) [code = 679259296] Future Scheduled 2016 [facility] 00:00:00 malignant neoplasm of cervix (procedure) [code = 359724298] Future Scheduled 2016 [facility] 00:00:00 malignant neoplasm of cervix (procedure) [code = 941412423] Future Scheduled 2016 [facility] 00:00:00 malignant neoplasm of cervix (procedure) [code = 433538074] Future Scheduled [address] [facility] Test 00:00:00 malignant neoplasm Medical C enter of cervix (procedure) [code = 108700986] Future Scheduled [address] [facility] Test 00:00:00 malignant neoplasm Medical C enter of cervix (procedure) [code = 275166304] Future Scheduled [address] [facility] Test 00:00:00 malignant neoplasm Medical C enter of cervix (procedure) [code = 604136853] Future Scheduled 2007 Screening for [facility] Test 00:00:00 malignant neoplasm [place] [facility] of cervix Branch (procedure) [code = 426160643] Future Scheduled 2005 DTAP/TDAP/TD [facility] Test 00:00:00 VACCINES (1 - Tdap) Medical Center [code = DTAP/TDAP/TD VACCINES (1 - Tdap)] Future Scheduled 2005 DTAP/TDAP/TD [facility] Test 00:00:00 VACCINES (1 - Tdap) Medical Center [code = DTAP/TDAP/TD VACCINES (1 - Tdap)] Future Scheduled 2005 DTAP/TDAP/TD [facility] Test 00:00:00 VACCINES (1 - Tdap) Medical Center [code = DTAP/TDAP/TD VACCINES (1 - Tdap)] Future Scheduled 2005 DTaP,Tdap,and Td Univers ity of Test 00:00:00 Vaccines (1 - Tdap) [place] [facility]ical [code = Branch DTaP,Tdap,and Td Vaccines (1 - Tdap)] Future Scheduled 2004 Hepatitis C University [facility] Test 00:00:00 screening [place] [facility] (procedure) [code = Branch [id number]] Future Scheduled 2002 SARS-CoV-2 University [facility] Test 00:00:00 (COVID-19) Vaccine [place] [facility] (1) [code = Branch SARS-CoV-2 (COVID-19) Vaccine (1)] Future Scheduled 1998 Depression [facility] Test 00:00:00 screening [place] [facility] (procedure) [code = Branch [id number]] Future Scheduled [address] [facility] Test 00:00:00 VACCINE 0-64 YRS (1 Medical Center - PCV) [code = PNEUMOCOCCAL VACCINE 0-64 YRS (1 - PCV)] Future Scheduled [address] [facility] Test 00:00:00 VACCINE 0-64 YRS (1 Medical Center - PCV) [code = PNEUMOCOCCAL VACCINE 0-64 YRS (1 - PCV)] Future Scheduled [address] [facility] Test 00:00:00 VACCINE 0-64 YRS (1 Medical Center - PCV) [code = PNEUMOCOCCAL VACCINE 0-64 YRS (1 - PCV)] Future Scheduled 1992 Imm Pneumococcal [facility] Test 00:00:00 0-64 (1 - PCV) [code = Imm Pneumococcal 0-64 (1 - PCV)] Future Scheduled 1992 Imm Pneumococcal [facility] Test 00:00:00 0-64 (1 - PCV) [code = Imm Pneumococcal 0-64 (1 - PCV)] Future Scheduled 1987 VARICELLA VACCINES Unive rsity of Test 00:00:00 (1 of 2 - 2-dose [place] [facility] childhood series) Branch [code = VARICELLA VACCINES (1 of 2 - 2-dose childhood series)] Future Scheduled 1987-02-22 COVID-19 Vaccine [facility] Test 00:00:00 (#1) [code = COVID-19 Vaccine (#1)] Future Scheduled 1987-02-22 COVID-19 Vaccine [facility] Test 00:00:00 (#1) [code = COVID-19 Vaccine (#1)] Future Scheduled 1986 Fluoride Varnish [facility] Test 00:00:00 [code = Fluoride Varnish] Future Scheduled 1986 Fluoride Varnish [facility] Test 00:00:00 [code = Fluoride Varnish] Future Scheduled CT ANGIOGRAM [facility] ABDOMEN/PELVIS [facility] [code = 75429] Branch Future Scheduled IRON PANEL [code = Unive rsity of Test 2365] [facility] Branch Future Scheduled IRON PANEL [code = ONCE for 1 Unive rsity of Test 2365] Occurrences [facility] starting Branch 11/20/2020 until 11/20/2020 Encounters Start End Encounter Admission Attending Care Care Encounter Source Date/Time Date/Time Type Type Clinicians Facility Department ID 2022-04-01 Outpatient [facility] [id number] [place] 09:58:42 [id number] [facility] 2021-11-19 Outpatient [facility] [id number] [place] 09:02:08 [id number] [facility] 2022-03-28 2022-03-28 Emergency X JADA [facility] ERT [id number] Univers 11:42:00 13:51:00 KORI vieira of [facility] 2022-03-28 2022-03-28 Emergency Jada [facility] [id number] Univers 11:42:00 13:51:00 Kori BILLY [id number] i ty [facility] [id number] [facility] [phone] [place] [address] Branch 2022-03-28 2022-03-28 Transition LUKAS [place] [id number] Univers 00:00:00 00:00:00 of Care Nazanin [place] [id number] [id number] [id number] [facility] 403 Branch 2022-03-20 2022-03-25 Inpatient X GRACE [facility] GM [id number] Univers 18:38:00 18:33:00 ESME ity of [facility] 2022-03-20 2022-03-25 Hospital Hannah Santos 1.2.840. [id number] Univers 18:38:00 18:33:00 Encounter Cb Yamile Wendidaniela [place] 350. 1.13.10 ity of [facility] [place] 4.2.7.2.686 [place] Esme Edwards [id number] Medical McgeeDeepali cummins B meenu 2022-03-20 2022-03-20 Telephone GABRIEL Dale [id number] [facility] 00:00:00 00:00:00 Oleg [place] [id number] ity of [facility] 4.2.7.2.686 Joesph as [phone] [facility] 025 Branch 2022-03-17 2022-03-17 Transition LUKAS [place] 1.2.840.114 [id number] Univers 00:00:00 00:00:00 of Care Nazanin [place] 350.1.13.10 [place] [id number] [facility] 403 Branch 2022-03-12 2022-03-16 Inpatient X DAWIT NVJOSÉ MIGUEL GM [id number] Univers 21:42:00 15:43:00 KARONNAN ity [facility] 2022-03-12 2022-03-16 Hospital Robles Hernandez [facility] 1.2.840 .114 [id number] Univers 21:42:00 15:43:00 Encounter Sybil Haney 350.1.13.10 ity of [place] [id number] [facility] 081 Branch 2022-03-12 2022-03-12 Outpatient [facility] [id number] [facility] 00:00:00 23:59:00 Colleg e of Medicin e 2022-03-11 2022-03-12 Emergency ER QUIROZ, [facility] Emergency [id number] SLE 19:46:00 19:00:00 TANISHA 2022-03-11 2022-03-12 Emergency Richie, [facility] [id number] 19:46:00 19:00:00 [facility] 2022-03-11 2022-03-12 Emergency ER Richie, [facility] [id number] 19:46:00 19:00:00 [facility] 2022-03-11 2022-03-11 Outpatient Bhanu DALE [facility] [id number] [facility] 16:00:00 16:00:00 OLEG bruno [facility] 2022-03-02 2022-03-11 Inpatient UR CIVUNARACELINTA [facility] Gastro [id number] SLE 23:18:00 15:30:00 , YEMI 2022-03-02 2022-03-11 [facility] In [facility] [id number] 23:18:00 15:30:00 Encounter Moshe Saldivar, [facility], [facility], Liordelano Quiroganta, Yemi Shamvivianairsaz, Amir Abdollah 2022-03-02 2022-03-11 [facility] In [facility] [id number] 23:18:00 15:30:00 Encounter Moshe Saldivar, [facility], [facility], Lior Civunaracelinta, Yemi Shamshirsaz, Amir Abdollah 2022-03-11 2022-03-11 Travel [facility] [id number] [facility] 00:00:00 00:00:00 [facility] 2022-03-11 2022-03-11 Travel [facility] [id number] [facility] 00:00:00 00:00:00 [facility] 2022-03-10 2022-03-10 Documentat Prabhakar, [facility] [id number] 00:00:00 00:00:00 [facility] 2022-03-10 2022-03-10 Documentat Dimas, [facility] [id number] 00:00:00 00:00:00 [facility] 2022-03-10 2022-03-10 Documentat Prabhakar, [facility] [id number] 00:00:00 00:00:00 [facility] 2022-03-10 2022-03-10 Documentat Dimas, [facility] [id number] 00:00:00 00:00:00 [facility] 2022-03-09 2022-03-09 Documentgallo Dimas [facility] [id number] 00:00:00 00:00:00 [facility] 2022-03-09 2022-03-09 Documentat Dimas [facility] [id number] 00:00:00 00:00:00 [facility] 2022-03-08 2022-03-08 Documentat Nieto, [facility] [id number] 00:00:00 00:00:00 [facility] 2022-03-08 2022-03-08 Documentat Nieto [facility] [id number] [id number] 00:00:00 00:00:00 [facility] 2022-03-07 2022-03-07 Documentat Dimas [facility] [id number] 00:00:00 00:00:00 [facility] 2022-03-07 2022-03-07 Documentat Dimas [facility] [id number] 00:00:00 00:00:00 [facility] 2022-03-042022-03-04 Documentgallo Cochran [facility] [id number] 00:00:00 00:00:00 [facility] 2022-03-04 2022-03-04 Ashish Crystal [facility] [id number] 00:00:00 00:00:00 [facility] 2022-03-04 2022-03-04 Documentgallo Crystal [facility] [id number] 00:00:00 00:00:00 [facility] 2022-03-04 2022-03-04 Ashish Crystal [facility] [id number] 00:00:00 00:00:00 [facility] 2022-03-04 2022-03-04 Ashish Cochran [facility] [id number] 00:00:00 00:00:00 [facility] 2022-03-04 2022-03-04 Ashish Crystal [facility] [id number] 00:00:00 00:00:00 [facility] 2022-03-03 2022-03-03 Outpatient [facility] [id number] [facility] 00:00:00 23:59:00 Latisha Medicin e 2022-03-03 2022-03-03 Orders [facility] [id number] 00:00:00 00:00:00 [facility] 2022-03-03 2022-03-03 Documentgallo Urias [facility] [id number] 00:00:00 00:00:00 [facility] 2022-03-03 2022-03-03 Mynor Radford [facility] [id number] 00:00:00 00:00:00 [facility] 2022-03-03 2022-03-03 Abstract Gabriel Joaquin [facility] [id number] 00:00:00 00:00:00 [facility] 2022-03-03 2022-03-03 Orders [facility] [id number] 00:00:00 00:00:00 [facility] 2022-03-03 2022-03-03 Documentat Bridgett [facility] [id number] 00:00:00 00:00:00 ion Kimberly Bowen [facility] 2022-03-03 2022-03-03 Telephone Prabhakar [facility] [id number] 00:00:00 00:00:00 Lilly Villafuerte [facility] 2022-03-03 2022-03-03 Abstract Gabriel Joaquin [facility] [id number] 00:00:00 00:00:00 [facility] 2022-03-02 2022-03-02 [id number] 00:00:00 00:00:00 [facility] 2022-03-02 2022-03-02 Telephone Abhay Brodytomy [facility] [id number] 00:00:00 00:00:00 [facility] 2022-02-28 2022-02-28 Lab [facility] [id number] 00:00:00 00:00:00 [facility] 2022-02-28 2022-02-28 Lab [facility] [id number] 00:00:00 00:00:00 [facility] 2022-02-25 2022-02-25 Orders Doctor ERICKSON [id number] [id number] Univers 00:00:00 00:00:00 Only Unassigned, HENRIK 350.1.13.10 ity of [place] [facility] 4.2.7.2.686 Joesph as [id number] [place] [address] Branch 2022-02-15 2022-02-15 Letter EULOGIO Dale 1.2.840.114 [id number] Univers 00:00:00 00:00:00 (Out) Counts include 234 beds at the [facility] 350.1.13.10 [facility] 4.2.7.2.686 Joesph as TOYA?BLEA [phone] [address] OFFICE [facility] 2022-02-15 2022-02-15 [facility]phone [facility] [id number] [employer] 00:00:00 00:00:00 Counts include 234 beds at the [facility] [id number] ity of [place] [id number] Joesph as TOYA?BLEA [phone] [address] OFFICE [facility] 2022-02-08 2022-02-08 Office [facility] [id number] [employer] 15:30:00 16:30:39 Visit Counts include 234 beds at the [facility] [id number] ity of [place] [id number] Joesph as TOYA?BLEA [phone] [address] 2022-01-21 2022-01-21 Emergency [facility] [id number] 56 [facility] 20:17:00 20:17:00 55 2022-01-21 2022-01-21 Emergency Emergency David, Carlitos [facility] JM [id number] [facility] 20:17:00 20:17:00 54 2022-01-07 2022-01-08 Emergency Heber Arana [facility] [id number] [place] 19:58:00 10:30:00 [facility] 2022-01-07 2022-01-08 Emergency Heber Arana [facility] [id number] [place] 19:58:00 10:30:00 [facility] 2021-12-29 2022-01-05 Inpatient EM José Miguelbrianna, KASH INTE.02 [id number] [facility] 16:01:00 16:58:00 Farhad 38467 [facility] 2021-12-29 2022-01-05 Inpatient EM José MiguelbriannaKASH INTE.02 [id number] [facility] 16:01:00 16:58:00 Farhad 61 [facility] 2022-01-03 2022-01-03 Outpatient Physician, LESLIEAZ MLAB [id number] [facility] 19:26:00 19:26:00 No 45 [facility] 2021-12-30 2021-12-30 [facility] [id number] [facility] 09:23:00 09:23:00 Alexis Mcdermott [facility] 2021-12-10 2021-12-[address] [facility] [id number] [place] 00:00:00 [id number] [facility] [id number] MEDICAL [id number] PLAZA 2 3 2021-11-13 2021-12-08 Inpatient E FELIX ESPARZA MED [address] 12:28:00 19:36:00 HALINA 2021-04-12 2021-04-12 Emergency X ELGIN, [facility] ERT [id number] [facility] 21:10:00 21:25:00 [facility] 2020-09-13 2020-09-15 [facility]patient [facility] [id number] [facility] 18:41:14 00:52:00 r [facility] 2020-09-13 2020-09-15 [facility]patient [facility] [id number] [place] 18:41:14 00:52:00 r [facility] 2020-09-13 2020-09-14 Inpatient E YURY [facility]BL MED 7501 [facility]BL 15:07:00 18:52:00 , 2020-09-13 2020-09-14 Outpatient Dhamotharan [facility] [id number] 12:41:14 18:52:00 , [place] 2020-09-13 2020-09-13 Outpatient Dhamotharan [facility]PL [facility]PL [id number] 12:41:14 12:41:14 , [place] 2020-01-27 2020-01-27 [facility] [id number] [facility] 21:52:37 23:57:00 r [facility] 2020-01-27 2020-01-27 Emergency [facility] [id number] [facility] 21:52:37 23:57:00 r Peewee 00 l [facility] 2020-01-27 2020-01-27 Outpatient Aznaurova-A MHPL MHPL [id number] 16:52:37 18:57:00 Cm irwin Results Test Description Test Time Test Comments Results Result Comments Source FUNGUS CULTURE + SMEAR 2022-03-30 01:03:40 Test Item Value Reference Range Interpretation Comme nts CULTURE (BEAKER) (test code = 1095) No fungus isolated in 28 days FUNGUS SMEAR (BEAKER) (test code = 1406) No fungi seen VITAMIN K1, [id number] 21:12:58 Test Item Value Reference Range Interpretation [...] nd its performance characteristics determined by [facility]. I t has not been cleare d or approved by the [place] Food and Drug Administration. This test was perfor med in a CLIA certifie d laboratory and is intended for cl inical purposes.Perfor med By: [address] [place] [address] [id number] Director: Eunice Covington MD, PhD Lab Interpretation Abnormal (test code = 54862-2) [facility]AL[facility]-ANTITRYPSIN [id number] 20:35:00 Test Item Value Reference Range Interpretation Comments A1A (test code = 155 mg/dL 90-200 To convert to umol/L, 1825-9) multiply mg/dL by 0.185 A1A PHENO (test M1M1 The patient appears to code = 10577-9) have a modesto l phenotype. All M alleles ( including subtypes M1, M2 , and M3) produce normal serum concentrations of szhkv-5-nooapea e inhibitor and are not ass ociated with clinical d isease. Caution in inte rpretation is advised if t he patient has been transf used within the previous 21 days.Performed By: [address] [place] [address] [id number] Director: Alexis zheng MD, PhD [facility]. Sendout- Hemoglobin A1c #[id number] 2022-03-25 16:18:54 Test Item Value Reference Range Interpretation Comments Miscellaneous Test (test See scanned report code = 9612805232) Performing Lab (test code ARUP = 1300038909) [facility] E, SERUM OR [id number] 15:59:09 Test Item Value Reference Range Interpretation Comments ALPHA BATSHEVA (test code = 5 mg/L 5.5-18.0 L This test was 1823-4) developed and i ts performance characteristics determined by [facility]. I t has not been cleare d or approved by the [place] Food and Drug Administration. This test was perfor med in a CLIA certified laboratory and is intended for cl inical purposes. GAMMA BATSHEVA (test code = 1.2 mg/L 0.0-6.0 Perfo rmed By: SHANICE 71156-7) [address] [address]Nglhzywpdq Director: Eunice Covington MD, PhD Lab Interpretation Abnormal (test code = 85271-3) [facility] HospitalVIT[facility] A, SERUM OR [id number] 15:59:08 Test Item Value Reference Range Interpretation Comments RET A (test code = <0.06 0.30-1.20 L 2923-1) RET PALM (test code = <0.02 0.00-0.10 43908-4) EDVIN INTER (test code See Note Retin ol greater than = 91702-4) 0.3 mg/L is typ ically associated with adequate liver stores in adults, and is within normal l imits for children. R etinol less than 0.10 mg/L may indicate deplet ed liver stores and elvia re deficiency. Thi s test was developed a nd its performance characteristics determined by [facility]. I t has not been cleare d or approved by the US Food and Drug Administration. This test was perfor med in a CLIA certified laboratory and is intended for cl inical purposes.Perfor med By: [facility] [address] [address]Vikwmpkpkj Director: Eunice Covington MD, PhD Lab Interpretation Abnormal (test code = 37816-9) [facility] HospitalQUANTIFERON-TB [id number] 19:26:31 Test Item Value Reference Range Interpretation Comments Nil (test code = IU/mL 63889-5) TB1 minus Nil (test IU/mL code = 99471-5) TB2 minus Nil (test IU/mL code = 0966154196) Mitogen minus Nil IU/mL (test code = 14339-9) QFT Gold Plus Negative Negative Result (test code = 60006-2) SONIA (test code = The QuantiFERON? TB [...] advised. For further information, refer to http://www.cdc.gov/mmwr/pd f/rr/cs2347.pdf and https://doi.org/10.1093/ci d/qyq141. [facility] HospitalANTI-SSA(RO)2022-03-24 17:49:31 Test Item Value Reference Range Interpretation Comments ANTI-SSA(RO) (test code = Negative Negative 9233795336) SONIA (test code = SONIA) Positive - Antibody detected.Negative - No antibody detected. Lab Interpretation (test Normal code = 49820-5) [facility] HospitalANTI-DAMON(SM)2022-03-24 17:49:16 Test Item Value Reference Range Interpretation Comments Anti-Damon (test code = Negative Negative 7510414469) SONIA (test code = SONIA) Positive - Antibody detected.Negative - No antibody detected. Lab Interpretation (test Normal code = 33670-0) [facility] HospitalANTI-SSB(LA)2022-03-24 17:49:16 Test Item Value Reference Range Interpretation Comments Anti-SSB(LA) (test code = Negative Negative 0468332835) SONIA (test code = SONIA) Positive - Antibody detected.Negative - No antibody detected. Lab Interpretation (test Normal code = 79500-1) [facility] MUSCLE AB,IGG [id number] 11:32:30 Test Item Value Reference Range Interpretation Comments F-ACTIN (SMOOTH See_Comment If F-Actin (Smooth Muscle) MUSCLE) AB, Antibody, IgG i s negative, IGG(BEAKER) (test the Smooth Muscle Antibody code = 59224-2) titer by IFA is not performed.REFER ENCE [...] for A IH is strong.Performe d By: [address] [facility], [place] [address]Byuwwylstq Director: Alexis zheng MD, PhD [Automated mess age] The system which ge nerated this result transmit afshin reference range : 0 - 19 Units. The refe rence range was not used to interpret this result as normal/abnormal . [facility] HospitalMITOCHONDRIAL M2 AB, [id number] 11:32:29 Test Item Value Reference Range Interpretation Comments AMA (test code = See_Comment REFERENCE I NTERVAL: 63013-1) Mitochondrial ( M2) Antibody, IgG ? ?20.0 [...] does not rule out PBC.Performed B y: [address] [facility], [place] [address]Lxcdywxzjl Director: Alexis zheng MD, PhD [Automated mess age] The system which ge nerated this result transmit afshin reference range: 0.0 - 24 .9 Units. The reference range was not used to interpret th is result as normal/abnormal . [facility] HospitalANTI-NUCLEAR ANTIBODY-PATHOLOGIST [id number] 23:23:42ANA - Pathologist InterpretationANA HEp-2 IIFA Pathologist Interpretation Report Patient Name: Pamela Collazo? ?Antinuclear Antibody (EMILIANO) Test (Anti-Cell Antibodies [...] MD ?03/23/2022 ?6:23 PM 03/23/2022 6:[address] [address] [place] [place] ANTI-NUCLEAR ANTIBODY [id number] 23:23:11 Test Item Value Reference Range Interpretation Comments EMILIANO Titer by IFA 1:320 (test code = 6016270884) EMILIANO Pattern (test Speckled code = 4550918741) SONIA (test code = SONIA) Anti-nuclear antibodies [...] specimen will be held for 7 days. [facility] (NA, K, CL, CO2, GLUCOSE, BUN, CREATININE, CA)2022-03-22 21:51:21 Test Item Value Reference Range Interpretation Comments NA (test code = 126 mmol/L 135-145 L 0757764424) K (test code = 3.4 mmol/L 3.5-5 L Slight 0793496864) hemolysis CL (test code = 97 mmol/L 98-108 L 6074569940) CO2 TOTAL (test code 26 mmol/L 23-31 = 5038879046) AGAP (test code = 2-16 9511348263) BUN (test code = 5 mg/dL 7-23 L Slight 4470742916) hemolysis GLUCOSE (test code = 145 mg/dL 70-110 H 2923401580) CREATININE (test code 0.28 mg/dL 0.5-1.04 L = 9341424115) CALCIUM (test code = 7.4 mg/dL 8.6-10.6 L 1706289557) eGFR (test code = mL/min/1.73m2 9500664894) SONIA (test code = SONIA) Association of [...] tests). Lab Interpretation Abnormal (test code = 82090-8) [facility] HospitalANTI-NUCLEAR ANTIBODY [id number] 20:35:32 Test Item Value Reference Range Interpretation Comments EMILIANO (test code = Positive Negative A 8502750606) SONIA (test code = SONIA) Negative: ?No Anti-Nuclear Antibodies detected by IFA. Positive: ?EMILIANO IFA screen performed with a 1:80 dilution in adults and a 1:40 dilution in pediatrics. ?A titer is performed and reported separately when the EMILIANO is "Positive" or when "Cytoplasmic staining is observed." Lab Interpretation (test Abnormal code = 49557-7) [facility] HospitalVITAMIN D, [id number] 17:04:22 Test Item Value Reference Range Interpretation Comments VIT D 25OH (test code = 25-80 L 32974-2) SONIA (test code = SONIA) Deficiency: <20 ng/mLInsufficiency: 20-24 ng/mLOptimal: 25-80 ng/mL Lab Interpretation (test Abnormal code = 89735-7) [facility] HospitalBASIC METABOLIC PANEL (NA, K, CL, CO2, GLUCOSE, BUN, CREATININE, CA)2022-03-22 15:40:28 Test Item Value Reference Range Interpretation Comments NA (test code = 129 mmol/L 135-145 L 5976237400) K (test code = 3.5 mmol/L 3.5-5 7412658983) CL (test code = 100 mmol/L 98-108 1138391540) CO2 TOTAL (test code = 30 mmol/L 23-31 3272469045) AGAP (test code = 2-16 L 7552899492) BUN (test code = 5 mg/dL 7-23 L 8866451114) GLUCOSE (test code = 120 mg/dL 70-110 H 9451906971) CREATININE (test code = 0.33 mg/dL 0.5-1.04 L 5026007558) CALCIUM (test code = 7.6 mg/dL 8.6-10.6 L 0430571928) eGFR (test code = mL/min/1.73m2 4313116696) SONIA (test code = SONIA) Association of [...] tests). Lab Interpretation Abnormal (test code = 30727-9) [facility] HospitalIMMUNOGLOBULIN G A M [id number] 14:56:28 Test Item Value Reference Range Interpretation Comments IgA (test code = 5359921007) 736 mg/dL 70-312 H IgG (test code = 2431569548) 1140 mg/dL 636-1600 IgM (test code = 7694016639) 321 mg/dL 56-352 Lab Interpretation (test code = Abnormal 42351-3) [facility] HospitalCERULOPLASMIN2022-09-06 14:55:43 Test Item Value Reference Range Interpretation Comments CERULO (test code = 4275466493) 20 mg/dL 25-63 L Lab Interpretation (test code = Abnormal 81894-3) [facility] HospitalMEASLES [id number] 14:22:17 Test Item Value Reference Range Interpretation Comments MEASLES IgG (test Positive Negative code = 5747459486) SONIA (test code = SONIA) Positive - Indicates that the patient was exposed to Measles through infection or vaccination.Negative - Indicates patient could be susceptible to Measles infection.Equivocal - A second sample should be sent. [facility] HospitalVZV ANTIBODY [id number] 14:22:17 Test Item Value Reference Range Interpretation Comments VZV IgG antibody Positive Negative (test code = 76969-8) SONIA (test code = SONIA) Positive - Indicates the patient was exposed to VZV through infection or vaccination.Negative - Indicates the patient could be susceptible to VZV infection.Equivocal - A second specimen should be sent for testing. [facility] HospitalRUBELLA SCREEN [id number] 14:22:16 Test Item Value Reference Range Interpretation Comments Rubella screen IgG Equivocal Negative (test code = 8493429106) SONIA (test code = SONIA) Positive - Indicates the patient was exposed to Rubella through infection or vaccination.Negative - Indicates the patient could be susceptible to Rubella infection.Equivocal - A second specimen should be sent. [facility] HospitalGALV ONLY - SYPHILIS [id number] 14:21:36 Test Item Value Reference Range Interpretation Comments Syphilis IgG/IgM (test Non-reactive Non-reactive code = 09321-6) SONIA (test code = SONIA) Non-reactive - No serologic evidence of T. pallidum infection. Cannot exclude incubating or early syphilis. Submit a second specimen in 2-4 weeks if syphilis is clinically suspected. Equivocal - Further testing to follow. Reactive - Further testing to follow. Lab Interpretation (test Normal code = 75150-8) [facility] HospitalHSV 1 AND 2 GLYCOPROTEIN G [id number] 14:20:55 Test Item Value Reference Range Interpretation Comments HSV I IgG (test code Positive Negative = 7877392125) HSV II IgG (test code Negative Negative = 8486937789) SONIA (test code = SONIA) Positive - IgG antibody to HSV 1 and/or HSV 2 detected.Negative - No HSV 1 and/or HSV 2 antibody detected.Equivocal - A second sample should be sent. [facility] HospitalTOXOPLASMA IGG [id number] 14:20:39 Test Item Value Reference Range Interpretation Comments TOXO IGG (test code Negative = 4119588241) SONIA (test code = Positive - Indicates SONIA) current or past T. gondii infection.Negative - No serologic evidence of T. gondii infection. Cannot exclude acute T. gondii infection. Equivocal - A second sample should be sent. [facility] HospitalCYTOMEGALOVIRUS ANTIBODY [id number] 14:20:39 Test Item Value Reference Range Interpretation Comments CMV IGG (test code = Positive Negative 1199324406) SONIA (test code = Positive - Indicates SONIA) current or past CMV infection.Negative - Indicates no serologic evidence of CMV infection. Cannot exclude acute CMV infection.Equivocal - A second specimen should be sent for repeat testing. [facility] HospitalEBV NUCLEAR ANTIGEN IGG [id number] 14:18:57 Test Item Value Reference Range Interpretation Comments EBV Nuclear Antigen IgG Positive Negative A (test code = 4929134816) SONIA (test code = SONIA) Positive - IgG to EBV nuclear antigen detected.Negative - No EBV nuclear antigen IgG detected.Equivocal - A second sample should be sent. Lab Interpretation (test Abnormal code = 09552-4) [facility] HospitalCRYPTOCOCCAL ANTIGEN [id number] 12:56:33 Test Item Value Reference Range Interpretation Comments Specimen Tested (test code = Serum 5074688035) Cryptococcal Antigen (test code = Negative Negative 22652-5) [facility] HospitalPREGNANCY TEST, [id number] 23:17:42 Test Item Value Reference Range Interpretation Comments PREG SERUM (test code Negative = 6856149624) SONIA (test code = SONIA) Less than 10 IU/L. ?If low titer or ectopic is suspected, resubmit specimen in 48-72 hours. [facility] HospitalHAV ANTIBODY (IGG AND IGM)2022-03-21 23:05:24 Test Item Value Reference Range Interpretation Comments HAV Total (test code Positive = 6226471258) HAVT Semi-Quantitative (test code = 5005358405) SONIA (test code = SONIA) Indicates past or present infection with HAV or exposure to HAV due to vaccination. [facility] HospitalALPHA [id number] 22:53:06 Test Item Value Reference Range Interpretation Comments AFP (test code = 1.6 ng/mL See_Comment [Automated 9382931871) message] The system which generated this result transmitted reference range : <=7.5. The reference range was not used to interpret this result as normal/abnormal . SONIA (test code = SONIA) Biotin has been reported to cause a negative bias, interpret results relative to patient's use of biotin. Lab Interpretation Normal (test code = 15053-0) [facility] HospitalFREE [id number] 22:34:45 Test Item Value Reference Range Interpretation Comments FREE T4 (test code = See_Comment [Autom ated message] 0650021974) The system Truli generated this result transmitted ref erence range: 0.78 - 2 .20 ng/dL:. The ref erence range was not u sed to interpret this result as normal/abnor mal. Lab Interpretation (test Normal code = 97187-1) [facility] HospitalTRIIODOTHYRONINE2022-09-05 22:33:44 Test Item Value Reference Range Interpretation Comments T3 (test code = 0795376318) 76.3 ng/dL 97-170 L Lab Interpretation (test code = Abnormal 10926-8) [facility] HospitalIRON [id number] 22:22:25 Test Item Value Reference Range Interpretation Comments IRON (test code = 5043598620) 22 ug/dL 50-160 L TIBC (test code = 6651330703) 129 ug/dL 250-410 L % FE SAT (test code = 2209908476) 17 % 20-50 L Lab Interpretation (test code = Abnormal 45369-7) [facility] HospitalType and Screen - Second separate ABO RH required for UNOS guidelines ONCE [id number] 22:12:00 Test Item Value Reference Range Interpretation Comments ABO & RH (test code A POSITIVE Performe d at [facility] = 20) Laboratory Serv [facility] [address] [facility] s [address]Hgxb Free: [phone] A No. [id number] IAT (test code = Negative Performed a t [facility] 1185) Laboratory Serv [facility] [address] [facility] s [address]Stnr Free: [phone] A No. [id number] [facility] HospitalBASIC METABOLIC PANEL (NA, K, CL, CO2, GLUCOSE, BUN, CREATININE, CA)2022-03-21 21:48:18 Test Item Value Reference Range Interpretation Comments NA (test code = 127 mmol/L 135-145 L 5059448371) K (test code = 3.8 mmol/L 3.5-5 3131107429) CL (test code = 98 mmol/L 98-108 6369412349) CO2 TOTAL (test code = 28 mmol/L 23-31 2675693458) AGAP (test code = 2-16 L 3662070950) BUN (test code = 7-23 L 9873381065) GLUCOSE (test code = 132 mg/dL 70-110 H 0603421512) CREATININE (test code = 0.31 mg/dL 0.5-1.04 L 5206830735) CALCIUM (test code = 7.6 mg/dL 8.6-10.6 L 4554872131) eGFR (test code = mL/min/1.73m2 5680673324) SONIA (test code = SONIA) Association of [...] tests). Lab Interpretation Abnormal (test code = 23314-8) [facility] BranchOSMOLALITY, SERUM OR [id number] 19:03:35 Test Item Value Reference Range Interpretation Comments OSMOLALITY (test code = See_Comment L [Au tomated message] 2692-2) The system Truli generated this result transmitted ref erence range: 278 - 30 5 mOsm/kg. The reference range was not used to int erpret this result as normal/abnormal . Lab Interpretation (test Abnormal code = 81781-7) [facility] HospitalFERRITIN [id number] 17:27:53 Test Item Value Reference Range Interpretation Comments FERRITIN (test code = 128.0 ng/mL 6-137 9452237268) SONIA (test code = SONIA) Biotin has been reported to cause a negative bias, interpret results relative to patient's use of biotin. Lab Interpretation (test Normal code = 03525-4) [facility] HospitalTHYROID STIMULATING [id number] 17:23:52 Test Item Value Reference Range Interpretation Comments TSH (test code = See_Comment [Automated message] 3015091238) The system Truli generated this result transmitted ref erence range: 0.45 - 4 .70 mIU/L. The refe rence range was not u sed to interpret this result as normal/abnor mal. Lab Interpretation (test Normal code = 03028-4) [facility] HospitalLIPID PANEL (63180)(TOTAL CHOLESTEROL, TRIGLYCERIDES, HDL)2022-03-21 16:49:10 Test Item Value Reference Range Interpretation Comments CHOL (test code = 122 mg/dL 120-200 1050264702) HDL (test code = 22 mg/dL See_Comment L [Automated message] 0939037769) The system Truli generated this result transmit afshin reference range : >=50. The refer ence range was not u sed to interpret th is result as normal/abnormal . HDLC RATIO (test code = See_Comment H [Au tomated message] 6648926792) The system Truli generated this result transmit afshin reference range : <=4.5. The refe rence range was not u sed to interpret th is result as normal/abnormal . TRIG (test code = 74 mg/dL 30-170 4414319440) LDL CHOL (test code = 85 mg/dL See_Comment [Auto mated message] 24857-8) The system Truli generated this result transmit afshin reference range : <=160. The refe rence range was not u sed to interpret th is result as normal/abnormal . VLDL (test code = 15 mg/dL 5-60 8071521279) Lab Interpretation (test Abnormal code = 45316-7) [facility] HospitalGAMMA [id number] 16:49:10 Test Item Value Reference Range Interpretation Comments GGT (test code = 1702242858) 54 U/L 13-40 H Lab Interpretation (test code = Abnormal 22981-3) [facility] METABOLIC PANEL (NA, K, CL, CO2, GLUCOSE, BUN, CREATININE, CA)2022-03-21 15:38:30 Test Item Value Reference Range Interpretation Comments NA (test code = 127 mmol/L 135-145 L 4819795572) K (test code = 3.9 mmol/L 3.5-5 4054102032) CL (test code = 98 mmol/L 98-108 7175683930) CO2 TOTAL (test code = 31 mmol/L 23-31 3372508680) AGAP (test code = 2-16 L 3584662370) BUN (test code = 7-23 L 7604536289) GLUCOSE (test code = 109 mg/dL 70-110 5606628048) CREATININE (test code = 0.30 mg/dL 0.5-1.04 L 0308931458) CALCIUM (test code = 8.2 mg/dL 8.6-10.6 L 7182968521) eGFR (test code = mL/min/1.73m2 4115882434) SONIA (test code = SONIA) Association of [...] tests). Lab Interpretation Abnormal (test code = 60296-1) [facility]. METABOLIC PANEL (25569)2022-03-21 03:00:01 Test Item Value Reference Range Interpretation Comments NA (test code = 119 mmol/L 135-145 LL 1112017610) K (test code = 3.9 mmol/L 3.5-5 8233384258) CL (test code = 92 mmol/L 98-108 L 8384322394) CO2 TOTAL (test code = 26 mmol/L 23-31 9471504562) AGAP (test code = 2-16 L 4229336735) BUN (test code = 5 mg/dL 7-23 L 8502008814) GLUCOSE (test code = 126 mg/dL 70-110 H 6018433336) CREATININE (test code = 0.29 mg/dL 0.5-1.04 L 3578824701) TOTAL BILI (test code = 4.0 mg/dL 0.1-1.1 H 2142167130) CALCIUM (test code = 8.0 mg/dL 8.6-10.6 L 3093566152) T PROTEIN (test code = 6.4 g/dL 6.3-8.2 9106169715) ALBUMIN (test code = 2.6 g/dL 3.5-5 L 4735897739) ALK PHOS (test code = 129 U/L 34-122 H 4700617455) ALTv (test code = 32 U/L 5-35 1742-6) AST(SGOT) (test code = 51 U/L 13-40 H 1122085492) eGFR (test code = mL/min/1.73m2 2669975641) SONIA (test code = SONIA) Association of [...] tests). Lab Interpretation Abnormal (test code = 10607-3) [facility] HospitalCARMEN [id number] 02:48:49 Test Item Value Reference Interpretation Comments Range TROPONIN I (test 0.006 ng/mL See_Comment [Automated code = 8031428284) message] The system which generated this result [...] biotin. Lab Interpretation Normal (test code = 69489-7) [facility] HospitalN-TERMINAL [id number] 02:48:49 Test Item Value Reference Range Interpretation Comments NT-proBNP (test code 228 pg/mL See_Comment H [Autom ated = 8950832060) message] The system which generated this result transmitted reference range : <=125. The reference range was not used to interpret this result as normal/abnormal . SONIA (test code = SONIA) Biotin has been reported to cause a negative bias, interpret results relative to patient's use of biotin. Lab Interpretation Abnormal (test code = 57614-1) [facility]OL[facility] 02:38:02 ALCOHOL<10mg/dL03/20/2022 9:38 PM CDTUTMB LABORATORY SERVICESToxic Greater than or equal to 80 mg/dL. NOTE: Whole blood values are approximately 10% to 15% lower than serum and plasma.[facility] 02:35:06 Test Item Value Reference Range Interpretation Comments LIPASE (test code = 6049322007) 31 U/L 0-220 Lab Interpretation (test code = Normal 37985-3) [facility] HospitalCB WITH [id number] 02:27:08 Test Item Value Reference Range Interpretation Comments WBC (test code = See_Comment [Automated 9526-2) message] The sy stem which generated this result transmitted reference range : 4.30 - 11.10 10*3/?L. The reference range was not used to interpret this result as normal/abnormal . RBC (test code = See_Comment L [Automated 109-8) message] The sy stem which generated this [...] (test code = 65.5 fL 39-49.9 H 44366-0) RDW-CV (test code = 18.2 % 12-15.5 H 788-0) PLT (test code = See_Comment L [Automated 777-3) message] The sy stem which generated this result transmitted reference range : 166 - 358 10*3/ ?L. The reference r yvonne was not used to interpret this result as normal/abnormal . MPV (test code = 10.3 fL 9.5-12.9 19089-2) NRBC/100 WBC (test See_Comment [Automat ed code = 9418861857) message] The system which generated this result transmitted reference range : 0.0 - 10.0 /100 WBCs. The refer ence range was not u sed to interpret th is result as normal/abnormal . NRBC x10^3 (test code See_Comment [Auto mated = 2789459516) message] The s ystem which generated this result transmitted reference range : 10*3/?L. The reference range was not used to interpret this result as normal/abnormal . GRAN MAT (NEUT) % 70.3 % (test code = 770-8) IMM GRAN % (test code 0.30 % = 5229545587) LYMPH % (test code = 17.8 % 736-9) MONO % (test code = 9.2 % 5905-5) EOS % (test code = 2.2 % 713-8) BASO % (test code = 0.2 % 706-2) GRAN MAT x10^3(ANC) 4.20 10*3/uL 1.88-7.09 (test code = 0608359084) IMM GRAN x10^3 (test 0-0.06 code = 2555001262) LYMPH x10^3 (test code 1.06 10*3/uL 1.32-3.29 L = 731-0) MONO x10^3 (test code 0.55 10*3/uL 0.33-0.92 = 742-7) EOS x10^3 (test code = 0.13 10*3/uL 0.03-0.39 711-2) BASO x10^3 (test code 0.01-0.07 = 704-7) Lab Interpretation Abnormal (test code = 01837-0) [facility] HospitalFungus culture + [id number] 01:35:09 Test Item Value Reference Range Interpretation Comments Result (test code = 2+ Marybeth albicans A 6463-4) Fungus Smear (test code = No fungi seen 1406) Lab Interpretation (test Abnormal code = 92975-8) [facility] + [id number] 01:35:09 Test Item Value Reference Range Interpretation Comments Result (test code = 2+ Marybeth albicans A 6463-4) Fungus Smear (test code = No fungi seen 1406) Lab Interpretation (test Abnormal code = 27149-7) [facility] + [id number] 01:35:09 Test Item Value Reference Range Interpretation Comments Result (test code = 2+ Marybeth albicans A 6463-4) Fungus Smear (test code = No fungi seen 1406) Lab Interpretation (test Abnormal code = 85170-9) [facility] + [id number] 01:35:09 Test Item Value Reference Range Interpretation Comments CULTURE (BEAKER) A 2+ Marybeth albicans (test code = 1095) FUNGUS SMEAR No fungi seen (BEAKER) (test code = 1406) FUNGUS CULTURE + [id number] 00:06:37 Test Item Value Reference Range Interpretation Comments CULTURE (BEAKER) A <1+ Same or ganism has (test code = been isolated f rom 1095) culture(s) of t he same body site and collection date . Repeat identification performed only after consultation wi th the clinical microb iology laboratory.Refe r to previous cultur e ofCandida albic ans FUNGUS SMEAR No fungi seen (BEAKER) (test code = 1406) POCT GLUCOSE (AUTOMATED)2022-03-16 16:57:08 Test Item Value Reference Range Interpretation Comments POCT GLU (test code = 4853328512) 114 mg/dL 70-110 H Lab Interpretation (test code = Abnormal 56637-9) [facility])2022-03-16 13:29:50 Test Item Value Reference Range Interpretation Comments POCT GLU (test code = 9010231216) 90 mg/dL 70-110 Lab Interpretation (test code = Normal 19180-1) [facility]POKY [facility]SE ([facility]ATED)2022-03-16 02:07:22 Test Item Value Reference Range Interpretation Comments POCT GLU (test code = 9234233237) 148 mg/dL 70-110 H Lab Interpretation (test code = Abnormal 08217-0) [facility]PO[facility])2022-03-15 21:47:06 Test Item Value Reference Range Interpretation Comments POCT GLU (test code = 7179424696) 146 mg/dL 70-110 H Lab Interpretation (test code = Abnormal 58518-2) [facility] GLUCOSE (AUTOMATED)2022-03-15 16:39:40 Test Item Value Reference Range Interpretation Comments POCT GLU (test code = 0330143917) 126 mg/dL 70-110 H Lab Interpretation (test code = Abnormal 46051-5) [facility]PO[facility])2022-03-15 13:02:21 Test Item Value Reference Range Interpretation Comments POCT GLU (test code = 9502221082) 101 mg/dL 70-110 Lab Interpretation (test code = Normal 36787-0) [facility] GLUCOSE (AUTOMATED)2022-03-15 02:07:01 Test Item Value Reference Range Interpretation Comments POCT GLU (test code = 4463900979) 105 mg/dL 70-110 Lab Interpretation (test code = Normal 87744-9) [facility] 21:38:03 Test Item Value Reference Range Interpretation Comments POCT GLU (test code = 9333414944) 117 mg/dL 70-110 H Lab Interpretation (test code = Abnormal 82926-1) [facility]2022-03-14 16:42:29 Test Item Value Reference Range Interpretation Comments POCT GLU (test code = 0921798614) 95 mg/dL 70-110 Lab Interpretation (test code = Normal 83210-6) [facility] GLUCOSE (AUTOMATED)2022-03-14 12:54:32 Test Item Value Reference Range Interpretation Comments POCT GLU (test code = 6979248056) 85 mg/dL 70-110 Lab Interpretation (test code = Normal 25043-4) [facility] GLUCOSE (AUTOMATED)2022-03-14 12:24:08 Test Item Value Reference Range Interpretation Comments POCT GLU (test code = 4530826914) 94 mg/dL 70-110 Lab Interpretation (test code = Normal 81927-8) [facility] GLUCOSE (AUTOMATED)2022-03-14 01:26:20 Test Item Value Reference Range Interpretation Comments POCT GLU (test code = 8974692035) 104 mg/dL 70-110 Lab Interpretation (test code = Normal 83074-5) [facility] GLUCOSE (AUTOMATED)2022-03-13 20:48:41 Test Item Value Reference Range Interpretation Comments POCT GLU (test code = 4980188268) 177 mg/dL 70-110 H Lab Interpretation (test code = Abnormal 10913-6) [facility]. METABOLIC PANEL (42558)2022-03-13 04:28:13 Test Item Value Reference Range Interpretation Comments NA (test code = 133 mmol/L 135-145 L 2668633096) K (test code = 3.0 mmol/L 3.5-5 L 7547214148) CL (test code = 107 mmol/L 98-108 0599305423) CO2 TOTAL (test code = 22 mmol/L 23-31 L 2317636733) AGAP (test code = 2-16 1392491057) BUN (test code = 6 mg/dL 7-23 L 3447117492) GLUCOSE (test code = 110 mg/dL 70-110 5113497258) CREATININE (test code = 0.24 mg/dL 0.5-1.04 L 4503503152) TOTAL BILI (test code = 6.1 mg/dL 0.1-1.1 H 5298836544) CALCIUM (test code = 7.2 mg/dL 8.6-10.6 L 5466653642) T PROTEIN (test code = 5.0 g/dL 6.3-8.2 L 4715004197) ALBUMIN (test code = 2.3 g/dL 3.5-5 L 4625112906) ALK PHOS (test code = 116 U/L 34-122 3607595659) ALTv (test code = 46 U/L 5-35 H 2-6) AST(SGOT) (test code = 54 U/L 13-40 H 7566650138) eGFR (test code = mL/min/1.73m2 5116593154) SONIA (test code = SONIA) Association of [...] tests). Lab Interpretation Abnormal (test code = 02613-5) [facility] HospitalProthrombin Time / [id number] 03:56:33 Test Item Value Reference Range Interpretation Comments PROTIME PATIENT (test See_Comment H [Auto mated message] code = 5964-2) The system [employer] generated this result transmitted ref erence range: 12.0 - 1 4.7 Seconds. The reference range was not used to int erpret this result as normal/abnormal . INR (test code = 6301-6) Nor mal INR <1.1; Warfarin Therap eutic range 2.0 to 3. 0 or 2.5 to 3.5, dep ending upon the indica tions. Lab Interpretation (test Abnormal code = 84389-1) [facility] HospitalTROPONIN [id number] 03:48:32 Test Item Value Reference Interpretation Comments Range TROPONIN I (test 0.019 ng/mL See_Comment [Automated code = 9016239268) message] The system which generated this result [...] biotin. Lab Interpretation Normal (test code = 59187-7) [facility] WITH [id number] 03:48:12 Test Item Value Reference Range Interpretation Comments WBC (test code = See_Comment [Automated 3410-2) message] The sy stem which generated this result transmitted reference range : 4.30 - 11.10 10*3/?L. The reference range was not used to interpret this result as normal/abnormal . RBC (test code = See_Comment L [Automated 369-8) message] The sy stem which generated this [...] (test code = 88.3 fL 39-49.9 H 42234-8) RDW-CV (test code = 23.2 % 12-15.5 H 788-0) PLT (test code = See_Comment L [Automated 777-3) message] The sy stem which generated this result transmitted reference range : 166 - 358 10*3/ ?L. The reference r yvonne was not used to interpret this result as normal/abnormal . MPV (test code = 11.5 fL 9.5-12.9 38256-8) IPF % (test code = 5.0 % 1.3-7.7 Platelet count 3356142672) measured by fluorescence method. NRBC/100 WBC (test See_Comment [Automat ed code = 2697221345) message] The system which generated this result transmitted reference range : 0.0 - 10.0 /100 WBCs. The refer ence range was not u sed to interpret th is result as normal/abnormal . NRBC x10^3 (test code See_Comment [Auto mated = 5488164472) message] The s ystem which generated this result transmitted reference range : 10*3/?L. The reference range was not used to interpret this result as normal/abnormal . GRAN MAT (NEUT) % 85.3 % (test code = 770-8) IMM GRAN % (test code 0.60 % = 6384765239) LYMPH % (test code = 8.5 % 736-9) MONO % (test code = 5.4 % 5905-5) EOS % (test code = 0.1 % 713-8) BASO % (test code = 0.1 % 706-2) GRAN MAT x10^3(ANC) 9.25 10*3/uL 1.88-7.09 H (test code = 1222390293) IMM GRAN x10^3 (test 0.06 10*3/uL 0-0.06 code = 3868497896) LYMPH x10^3 (test code 0.92 10*3/uL 1.32-3.29 L = 731-0) MONO x10^3 (test code 0.59 10*3/uL 0.33-0.92 = 742-7) EOS x10^3 (test code = 0.03-0.39 L 711-2) BASO x10^3 (test code 0.01-0.07 = 704-7) Lab Interpretation Abnormal (test code = 69522-6) [facility] HospitalN-TERMINAL [id number] 03:45:31 Test Item Value Reference Range Interpretation Comments NT-proBNP (test code 1460 pg/mL See_Comment H [Autom ated = 5379244213) message] The system which generated this result transmitted reference range : <=125. The reference range was not used to interpret this result as normal/abnormal . SONIA (test code = SONIA) Biotin has been reported to cause a negative bias, interpret results relative to patient's use of biotin. Lab Interpretation Abnormal (test code = 69454-3) [facility]2022[facility] 03:36:13 Test Item Value Reference Range Interpretation Comments LIPASE (test code = 7183048309) 65 U/L 0-220 Lab Interpretation (test code = Normal 72631-3) [facility] HospitalAMMONIA, [id number] 03:21:51 Test Item Value Reference Range Interpretation Comments AMMONIA (test code = 3837084102) 43 umol/L 9-33 H Lab Interpretation (test code = Abnormal 98242-5) [facility] HospitalECG/EKG Mnpeiiycxjqvnl5074-09-64 08:36:10 Test Item Value Reference Range Interpretation Comments SONIA (test code = SONIA) Tanisha Quiroz MD 03/12/2022 8:38 AMECG/EKG Interpretation Date/Time: 03/12/2022 8:36 AMPerformed by: Tanisha Quiroz MDAuthorized by: Tanisha Quiroz MD The ECG was interpreted by ED physician. This ECG was compared with previous ECG(s).The ECG is interpreted as sinus rhythm. Rate is normal rate. Heart rate is 92 BPM.ST segments abnormal. Clinical Impression: abnormal ECGECG reviewed and does not meet STEMI criteria. Lab Interpretation Abnormal (test code = 88941-8) [facility]EC[facility]KG Shqnkuitelafgf5851-78-20 08:36:10 Test Item Value Reference Range Interpretation Comments SONIA (test code = SONIA) Tanisha Quiroz MD 03/12/2022 8:38 AMECG/EKG Interpretation Date/Time: 03/12/2022 8:36 AMPerformed by: Tanisha Quiroz MDAuthorized by: Tanisha Quiroz MD The ECG was interpreted by ED physician. This ECG was compared with previous ECG(s).The ECG is interpreted as sinus rhythm. Rate is normal rate. Heart rate is 92 BPM.ST segments abnormal. Clinical Impression: abnormal ECGECG reviewed and does not meet STEMI criteria. Lab Interpretation Abnormal (test code = 20306-4) [facility] CenterECG[facility]EKG Xkzgplisshfmhs1956-07-04 08:36:10 Test Item Value Reference Range Interpretation Comments SONIA (test code = SONIA) Tanisha Quiroz MD 03/12/2022 8:38 AMECG/EKG Interpretation Date/Time: 03/12/2022 8:36 AMPerformed by: Tanisha Quiroz MDAuthorized by: Tanisha Quiroz MD The ECG was interpreted by ED physician. This ECG was compared with previous ECG(s).The ECG is interpreted as sinus rhythm. Rate is normal rate. Heart rate is 92 BPM.ST segments abnormal. Clinical Impression: abnormal ECGECG reviewed and does not meet STEMI criteria. Lab Interpretation Abnormal (test code = 89637-6) [facility] CenterCOMPREHENSIVE METABOLIC [id number] 02:32:58 Test Item Value Reference Range Interpretation [...] St age Description sq m Result G1 [place] l or high >=90 G2 Mildly decreased 60-89 G3a Mild ly to moderately 45-5 9 G3b Moderately to [...] not appl icable for dialysis patien ts Sound Person ID - BSSpecimen moderately ictericCBC W/PLT COUNT & AUTO [id number] 01:21:22 Test Item Value Reference Range Interpretation [...] = 2801) RAD, CHEST, 1 VIEW, NON [id number] 11:18:00Reason for exam:- >intubatedShould this be performed at the bedside?->Yes [facility] COLLAZO : 1985 Sex: FFINAL REPORT INDICATION: [...] None. IMPRESSION: No acute intrathoracic abnormality. Signed: Livan Radford Verified Date/Time: 03/11/2022 11:18:05 Reading Location: [facility] Radiology Reading Room POC-Glucose [id number] 08:49:15 Test Item Value Reference Range Interpretation Comments POC-Glucose Meter (test 110 mg/dL 70-110 : TE STED AT [facility] code = 1538) [address] [place] [address], [facility] [facility]: Sound Person/Techni shantelle ID = [id number] for BHARAT, MARI Lab Interpretation (test Normal code = 72921-1) [facility] CenterPO-Glucose [id number] 08:49:15 Test Item Value Reference Range Interpretation Comments POC-Glucose Meter (test 110 mg/dL 70-110 : TE STED AT [facility] code = 1538) [address] [place] [address], [facility] [place] [facility]: Sound Person/Techni shantelle ID = [id number] for BHARAT, MARI Lab Interpretation (test Normal code = 52915-1) [facility] CenterPOC-Glucose tjibi2029-83-27 08:49:15 Test Item Value Reference Range Interpretation Comments POC-Glucose Meter (test 110 mg/dL 70-110 : TE STED AT [facility] code = 1538) [address] [place] [address], 770 30: Sound Person/Techni shantelle ID = [id number] for MARI NICHOLSON Lab Interpretation (test Normal code = 76226-6) [facility] CenterPOCT-GLUCOSE [id number] 08:49:15 Test Item Value Reference Range Interpretation Comments POC-GLUCOSE METER 110 mg/dL 70-110 : TESTED A T [facility] [address] (BEAKER) (test code = [address] [place], 1538) [address]: Sound Person/Techni shantelle ID = [id number] for MARI DELGADO COMPREHENSIVE METABOLIC [id number] 06:43:06 Test Item Value Reference Range Interpretation [...] St age Description sq m Result G1 [place] l or high >=90 G2 Mildly decreased [...] not appl icable for dialysis patien ts Sound Person ID - DREAD MSpecimen moderately bpoxkzqFRJBQANBJS8137-80-86 06:40:23 Test Item Value Reference Range Interpretation Comments PHOSPHORUS (BEAKER) (test code = 2.1 mg/dL 2.3-4.7 L 604) Sound Person ID - DREAD [id number] 06:40:22 Test Item Value Reference Range Interpretation Comments MAGNESIUM (BEAKER) (test code = 1.7 mg/dL 1.6-2.6 627) Sound Person ID - DREAD MCBC (HEMOGRAM ONLY)2022-03-11 05:30:29 [...] (BEAKER) (test code = 413) Lactic Acid, [id number] 05:29:47 Test Item Value Reference Range Interpretation Comments Lactate, Art (test code = 1.1 mmol/L 0.5-2.2 2874) SONIA (test code = SONIA) Sound Person ID - DREAD Zhaoecimen moderately icteric Lab Interpretation (test Normal code = 35460-5) [facility] CenterLactic Acid, [id number] 05:29:47 Test Item Value Reference Range Interpretation Comments Lactate, Art (test code = 1.1 mmol/L 0.5-2.2 2874) SONIA (test code = SONIA) Sound Person ID - DREAD MSpecimen moderately icteric Lab Interpretation (test Normal code = 51211-3) [facility] CenterLactic Acid, Ehhukvbc4050-38-50 05:29:47 Test Item Value Reference Range Interpretation Comments Lactate, Art (test code = 1.1 mmol/L 0.5-2.2 2874) SONIA (test code = SONIA) Sound Person ID - DREAD MSpecimen moderately icteric Lab Interpretation (test Normal code = 52076-1) [facility] CenterLACTIC ACID, [id number] 05:29:47 Test Item Value Reference Range Interpretation Comments LACTATE BLOOD ARTERIAL (2) 1.1 mmol/L 0.5-2.2 (BEAKER) (test code = 2874) Sound Person ID - DREAD Zhaoecimen moderately giyhjedNSWXPRSKWJ6782-76-04 05:28:06 Test Item Value Reference Range Interpretation Comments FIBRINOGEN LEVEL (BEAKER) (test 177 mg/dl 225-434 L code = 658) PROTHROMBIN TIME/[id number] 05:27:39 Test Item Value Reference Range Interpretation Comments PROTIME (BEAKER) 19.4 seconds 11.9-14.2 H (test code = 759) INR (BEAKER) (test 1.75 See_Comment [Automat ed message] code = 370) The system [employer] generated this result transmitted ref erence range: <=5.90. The reference range was not used to int erpret this result as normal/abnormal . RECOMMENDED COUMADIN/WARFARIN INR THERAPY RANGESSTANDARD DOSE: 2.0 - 3.0 Includes: PROPHYLAXIS for venous thrombosis, systemic embolization; TREATMENT for venous thrombosis and/or pulmonary embolus.HIGH RISK: Target INR is 2.5-3.5 for patients with mechanical heart valves.CALCIUM, [id number] 05:20:20 Test Item Value Reference Range Interpretation Comments CALCIUM IONIZED (BEAKER) (test 1.11 mmol/L 1.12-1.27 L code = 698) PH, BLOOD (BEAKER) (test code = 7.48 1810) POCT-GLUCOSE [id number] 21:04:54 Test Item Value Reference Range Interpretation Comments POC-GLUCOSE METER 123 mg/dL 70-110 H : TESTED A T [facility] 6720 (BEAKER) (test code = [facility], 1538) [address]: Sound Person/Techni shantelle ID = [id number] for JIM KELLYAMERICO FERNÁNDEZ POCT-GLUCOSE [id number] 17:23:30 Test Item Value Reference Range Interpretation Comments POC-GLUCOSE METER 102 mg/dL 70-110 : TESTED A T [facility] 6720 (BEAKER) (test code = [facility], 1538) [address]: Sound Person/Techni shantelle ID = [id number] for JASWINDER MARTE POCT-GLUCOSE [id number] 13:29:05 Test Item Value Reference Range Interpretation Comments POC-GLUCOSE METER 82 mg/dL 70-110 : TESTED A T [facility] 6720 (BEAKER) (test code = [facility], 1538) [address]: Sound Person/Techni shantelle ID = [id number] for JASWINDER RESTREPO COMPREHENSIVE METABOLIC [id number] 07:50:34 Test Item Value Reference Range Interpretation [...] St age Description sq m Result G1 [place] l or high >=90 G2 Mildly decreased [...] not appl icable for dialysis patien ts Sound Person ID - PIAYA LSpecimen moderately ictericCBC (HEMOGRAM [...] 0-0 CELLS (BEAKER) (test code = 413) [id number] 07:32:21 Test Item Value Reference Range Interpretation Comments MAGNESIUM (BEAKER) (test code = 1.7 mg/dL 1.6-2.6 627) Sound Person ID - GEOVANNA ALQPVFXDPEA7067-08-96 07:32:21 Test Item Value Reference Range Interpretation Comments PHOSPHORUS (BEAKER) (test code = 2.6 mg/dL 2.3-4.7 604) Sound Person ID - GEOVANNA GRSUSQCOUKT7433-07-36 07:17:17 Test Item Value Reference Range Interpretation Comments FIBRINOGEN LEVEL (BEAKER) (test 133 mg/dl 225-434 L code = 658) LACTIC ACID, [id number] 07:15:38 Test Item Value Reference Range Interpretation Comments LACTATE BLOOD ARTERIAL (2) 1.1 mmol/L 0.5-2.2 (BEAKER) (test code = 2874) Sound Person ID - PIDEE LSpecimen moderately ictericCALCIUM, [id number] 07:14:48 Test Item Value Reference Range Interpretation Comments CALCIUM IONIZED (BEAKER) (test 0.92 mmol/L 1.12-1.27 L code = 698) PH, BLOOD (BEAKER) (test code = 7.53 1810) PROTHROMBIN TIME/[id number] 07:11:53 Test Item Value Reference Range Interpretation Comments PROTIME (BEAKER) 21.0 seconds 11.9-14.2 H (test code = 759) INR (BEAKER) (test 1.94 See_Comment [Automat ed message] code = 370) The system [employer] generated this result transmitted ref erence range: <=5.90. The reference range was not used to int erpret this result as normal/abnormal . RECOMMENDED COUMADIN/WARFARIN INR THERAPY RANGESSTANDARD DOSE: 2.0 - 3.0 Includes: PROPHYLAXIS for venous thrombosis, systemic embolization; TREATMENT for venous thrombosis and/or pulmonary embolus.HIGH RISK: Target INR is 2.5-3.5 for patients with mechanical heart valves.POCT-GLUCOSE [id number] 21:24:08 Test Item Value Reference Range Interpretation Comments POC-GLUCOSE METER 94 mg/dL 70-110 : TESTED A T [facility] 67[address] (BETIARA) (test code = [address] [place], 1538) [address]: Sound Person/Techni shantelle ID = [id number] for AMERICO MCKENZIE SARS-CoV2/RT-PCR (Asymptomatic ONLY)2022-03-09 14:39:13 Test Item Value Reference Range Interpretation Comments SARS-COV2/RT-PCR Negative Not Detected, (test code = Negative, See 92539-5) external report for linked test SARS-COV-2 [facility] TONY PERFORMING LAB (test code = 14887-2) SONIA (test code = Negative result for [...] of the Act. Fact Sheet for Healthcare Providers:https://www.[employer]/sites/default/f real/product/documents/F act_Sheet_HC_Providers_L ano_ZYTT-SnQ-9.pdf Fact Sheet for Healthcare Patients:https://www.[employer]/sites/default/fi les/product/documents/Fa ct_Sheet_Patients_Lyra_S ARS-CoV-2.pdf Performing Laboratory:[facility] [place] [address] [facility]ARS[facility] (Asymptomatic ONLY)2022-03-09 14:39:13 Test Item Value Reference Range Interpretation Comments SARS-COV2/RT-PCR Negative Not Detected, (test code = Negative, See 53245-3) external report for linked test SARS-COV-2 [facility] PERFORMING LAB (test code = 53476-8) SONIA (test code = Negative result for [...] of the Act. Fact Sheet for Healthcare Providers:https://www.[employer]/sites/default/f real/product/documents/F act_Sheet_HC_Providers_L jip_CFYZ-IuO-2.pdf Fact Sheet for Healthcare Patients:https://www.[employer]/sites/default/fi les/product/documents/Fa ct_Sheet_Patients_Lyra_S ARS-CoV-2.pdf Performing Laboratory:[facility], [place] [address] [place], [place] [address]ARS-CoV2/RT-PCR (Asymptomatic ONLY)2022-03-09 14:39:13 Test Item Value Reference Range Interpretation Comments SARS-COV2/RT-PCR Negative Not Detected, (test code = Negative, See 46096-6) external report for linked test SARS-COV-2 [facility] PERFORMING LAB (test code = 72187-0) SONIA (test code = Negative result for [...] of the Act. Fact Sheet for Healthcare Providers:https://www.[employer]/sites/default/f real/product/documents/F act_Sheet_HC_Providers_L xju_RUWX-BhE-7.pdf Fact Sheet for Healthcare Patients:https://www.[employer]/sites/default/fi les/product/documents/Fa ct_Sheet_Patients_Lyra_S ARS-CoV-2.pdf Performing Laboratory:[facility] [place] [address] [facility] CenterARS[facility]OV2[facility] ([facility])2022-03-09 14:39:13 Test Item Value Reference Range Interpretation Comments SARS-COV2/RT-PCR (test Negative Not Detected, Negative, code = 7704920) See external report for linked test SARS-COV-2 PERFORMING LAB [facility] TONY (test code = 2063108) Negative result for this test determines that [...] justifying the authorization of the emergency use ofin vitro diagnostic tests for detection and/or diagnosis of COVID-19 is terminated under Section 564(b)(2) of the Act or the EUA is revoked under Section 564(g) of the Act.Fact Sheet for Healthcare Prov iders:https://www.[employer]/sites/default/files/product/documents/Fact_Sheet_HC _Gsgfynxfz_Nkxg_NARD-HiJ-7.pdfFact Sheet for Healthcare Patients:https://www.[employer]/sites/default/files/product/docume nts/Giwg_Aujdj_Ceblmdrx_Izms_LLNR-JkG-0.pdfPerforming Laboratory:[facility], [place] [address]KMJE-SRFDLOV METER 2022-03-09 11:19:10 Test Item Value Reference Range Interpretation Comments POC-GLUCOSE METER 91 mg/dL 70-110 : TESTED A T [facility] 6720 (HENRY) (test code = JOSE R Drummond [facility], 1538) [address]: Sound Person/Techni shantelle ID = [id number] for Berny Marinelli POCT-GLUCOSE [id number] 07:44:02 Test Item Value Reference Range Interpretation Comments POC-GLUCOSE METER 89 mg/dL 70-110 : TESTED A T [facility] 6720 (BEAKER) (test code = JOSE R [place] [place], 1538) [address]: Sound Person/Techni shantelle ID = [id number] for Berny Marinelli RAD, CHEST, 1 VIEW, NON [id number] 07:35:00Reason for exam:- >intubatedShould this be performed at the bedside?->Yes [facility] : 1985 Sex: FFINAL REPORT INDICATION: intubated COMPARISON: 03/08/2022 TECHNIQUE: Single frontalview of the chest. FINDINGS: Lines, tubes, and devices: None.Lungs and pleura: Scattered linear atelectasis is present. No effusion.Heart and mediastinum: Normal heart size. Unremarkable mediastinal contours.Osseous structures: No acute abnormality. Moderate rightward convexity of the thoracic spine.Other: The patient is rotated to the right IMPRESSION: No acute intrathoracic abnormality. Signed: Livan Radford [facility] Verified Date/Time: 03/09/2022 07:35:34 Reading Location[facility] RadiologyReading Room REHENSIVE METABOLIC [id number] 06:24:34 Test Item Value Reference Range Interpretation [...] St age Description sq m Result G1 [place] l or high >=90 G2 Mildly decreased [...] not appl icable for dialysis patien ts Sound Person ID - DREAD MSpecimen moderately [id number] 06:19:17 Test Item Value Reference Range Interpretation Comments MAGNESIUM (BEAKER) (test code = 1.6 mg/dL 1.6-2.6 627) Sound Person SHERMAN [place] [id number] 06:19:17 Test Item Value Reference Range Interpretation Comments PHOSPHORUS (BEAKER) (test code = 2.9 mg/dL 2.3-4.7 604) Sound Person SHERMAN - DREAD [id number] 05:59:03 Test Item Value Reference Range Interpretation Comments FIBRINOGEN LEVEL (BEAKER) (test 142 mg/dl 225-434 L code = 658) PROTHROMBIN TIME/[id number] 05:53:35 Test Item Value Reference Range Interpretation Comments PROTIME (BEAKER) 21.4 seconds 11.9-14.2 H (test code = 759) INR (BEAKER) (test 1.99 See_Comment [Automat ed message] code = 370) The system Truli generated this result transmitted ref erence range: <=5.90. The reference range was not used to int erpret this result as normal/abnormal . RECOMMENDED COUMADIN/WARFARIN INR THERAPY RANGESSTANDARD DOSE: 2.0 - 3.0 Includes: PROPHYLAXIS for venous thrombosis, systemic embolization; TREATMENT for venous thrombosis and/or pulmonary embolus.HIGH RISK: Target INR is 2.5-3.5 for patients with mechanical heart valves.CALCIUM, [id number] 05:37:21 Test Item Value Reference Range Interpretation Comments CALCIUM IONIZED (BEAKER) (test 1.10 mmol/L 1.12-1.27 L code = 698) PH, BLOOD (BEAKER) (test code = 7.53 1810) CBC (HEMOGRAM ONLY)2022-03-09 05:35:11 Test Item Value [...] CELL DISTRIBUTION WIDTH 25.1 % 11.7-14.4 H ([facility]) (test code = 412) PLATELET COUNT ([facility]) (test 102 K/CU MM 150-450 L code = 756) MEAN PLATELET VOLUME ([facility]) 11.7 fL 9.4-12.3 (test code = 754) NUCLEATED RED BLOOD CELLS 0 /100 WBC 0-0 ([facility]) (test code = 413) LACTIC ACID, [id number] 05:29:58 Test Item Value Reference Range Interpretation Comments LACTATE BLOOD ARTERIAL (2) 0.9 mmol/L 0.5-2.2 ([facility]) (test code = 2874) Sound Person ID - DREAD MSpecimen moderately ictericPOCT-GLUCOSE [id number] 21:19:06 Test Item Value Reference Range Interpretation Comments POC-GLUCOSE METER 105 mg/dL 70-110 : TESTED A T [facility] 6720 ([facility]) (test code = [facility] Bhanu [facility], 1538) [address]: Sound Person/Techni shantelle ID = [id number] for SA BESSJEANMARIE POCT-GLUCOSE [id number] 17:21:03 Test Item Value Reference Range Interpretation Comments POC-GLUCOSE METER 131 mg/dL 70-110 H : TESTED A T [facility] 6720 ([facility]) (test code [facility], = 1538) [address]15[address]: Sound Person/Techni shantelle ID = [id number] for MAXIME VÁSQUEZ CMV PCR, [id number] 16:19:26 Test Item Value Reference Range Interpretation Comments CMV VIRAL LOAD - Negative or below See_Comment [Auto mated message] NEGATIVE ([facility]) the linear range The sy stem which [...] and its performance characteristics determined by the [facility] Pathol ogy Department, Section of [...] RESULT (test code = See scanned report [id number]) See scanned reportPOCT-GLUCOSE [id number] 11:09:15 Test Item Value Reference Range Interpretation Comments POC-GLUCOSE METER 114 mg/dL 70-110 H : TESTED Daniela Villafuerte [facility] 6720 (BEAKER) (test code = JOSE R Bhanu [facility], 1538) [address]: Sound Person/Techni shantelle ID = [id number] for Cait Yeh Bacterial culture + gram [id number] 11:06:52 Test Item Value Reference Range Interpretation Comments Result (test code = 6463-4) See comment Gram Stain Result (test No organisms seen code = 1123) SONIA (test code = SONIA) 4+ Yeast [facility] [id number] 11:06:52 Test Item Value Reference Range Interpretation Comments Result (test code = 6463-4) See comment Gram Stain Result (test No organisms seen code = 1123) SONIA (test code = SONIA) 4+ Yeast [facility] + gram [id number] 11:06:52 Test Item Value Reference Range Interpretation Comments Result (test code = 6463-4) See comment Gram Stain Result (test No organisms seen code = 1123) SONIA (test code = SONIA) 4+ Yeast [facility] CenterBRONCH[facility] C[facility] + GRAM [id number] 11:06:52 Test Item Value Reference Range Interpretation Comments CULTURE (BEAKER) (test code See comment = 1095) GRAM STAIN RESULT (BEAKER) <1+ WBCs (test code = 1123) GRAM STAIN RESULT (BEAKER) No organisms seen (test code = 939435) 4+ [id number] 10:31:58 Test Item Value Reference Range Interpretation Comments POTASSIUM (BEAKER) (test code = 3.7 meq/L 3.5-5.1 379) Sound Person ID - CHRISTIANO [id number] 08:23:51 Test Item Value Reference Range Interpretation Comments PHOSPHORUS (BEAKER) (test code = 2.2 mg/dL 2.3-4.7 L 604) Sound Person ID - GEOVANNA LPOCT-GLUCOSE [id number] 07:40:14 Test Item Value Reference Range Interpretation Comments POC-GLUCOSE METER 93 mg/dL 70-110 : TESTED A T [facility] 6720 (BEAKER) (test code = [address] [place], 1538) [address]: Sound Person/Techni shantelle ID = [id number] for Melina Lombardi, CHEST, 1 VIEW, NON [id number] 07:34:00Reason for exam:- >intubatedShould this be performed at the bedside?->Yes [facility] : 1985 Sex: FFINAL REPORT RAD, [...] airspace disease, atelectasis, or pleural effusion. Signed: Livan Radford Verified Date/Time: 03/08/2022 07:34:29 Reading Location: [facility] Radiology Reading Room POCT-GLUCOSE [id number] 07:08:26 Test Item Value Reference Range Interpretation Comments POC-GLUCOSE METER 90 mg/dL 70-110 : TESTED A T [facility] 6720 (BEAKER) (test code = JOSE R [address] [facility], 1538) [address]: Sound Person/Techni shantelle ID = [id number] for Lorna Hogue HEPATITIS A ANTIBODY, [id number] 05:31:54 Test Item Value Reference Range Interpretation Comments HEPATITIS A IGG ANTIBODY (BEAKER) Reactive Nonreactive A (test code = 2797) Sound Person ID - GEOVANNA [id number] 05:06:50 Test Item Value Reference Range Interpretation Comments FIBRINOGEN LEVEL (BEAKER) (test 139 mg/dl 225-434 L code = 658) [id number] 05:01:34 Test Item Value Reference Range Interpretation Comments PHOSPHORUS (BEAKER) (test code = 0.8 mg/dL 2.3-4.7 LL 604) Sound Person ID - GEOVANNA [id number] 04:50:41 Test Item Value Reference Range Interpretation Comments MAGNESIUM (BEAKER) (test code = 1.9 mg/dL 1.6-2.6 627) Sound Person ID - PIDEE LCOMPREHENSIVE METABOLIC [id number] 04:50:41 Test Item Value Reference Range Interpretation [...] St age Description sq m Result G1 [place] l or high >=90 G2 Mildly decreased [...] not appl icable for dialysis patien ts Sound Person SHERMAN [place] LSpecimen moderately ictericOXYGEN SATURATION, MEASURED 2022-03-08 04:47:02 Test Item Value Reference Range Interpretation Comments O2 SATURATION (MEASURED) (BEAKER) 91.0 % (test code = 1455) PROTHROMBIN TIME/[id number] 04:45:16 Test Item Value Reference Range Interpretation Comments PROTIME (BEAKER) 27.2 seconds 11.9-14.2 H (test code = 759) INR (BEAKER) (test 2.72 See_Comment [Automat ed message] code = 370) The system Truli generated this result transmitted ref erence range: [...] (BEAKER) (test code = 413) LACTIC ACID, [id number] 04:36:49 Test Item Value Reference Range Interpretation Comments LACTATE BLOOD ARTERIAL (2) 1.4 mmol/L 0.5-2.2 (BEAKER) (test code = 2874) Sound Person ID - GEOVANNA LAWSONpecimealyson moderately ictericBlood gas, [id number] 04:36:04 Test Item Value Reference Range Interpretation Comments pH, Arterial (test code 7.57 7.35-7.45 H = 2744-1) pCO2, Arterial (test 32 See_Comment L [Autom ated message] code = 2019-02) The system Fann[employer] generated this result transmit afshin reference range : 35 - 45 mm Hg. The reference range was not used to interpret this result as normal/abnormal . pO2, Arterial (test 95 See_Comment H [Automa afshin message] code = 2703-7) The system [employer] generated this result transmit afshin reference range [...] 21 Lab Interpretation Abnormal (test code = 51516-1) [facility] CenterBlood [facility], [id number] 04:36:04 Test Item Value Reference Range Interpretation Comments pH, Arterial (test code 7.57 7.35-7.45 H = 2744-1) pCO2, Arterial (test 32 See_Comment L [Autom ated message] code = 2019-02) The system [employer] generated this result transmit afshin reference range : 35 - 45 mm Hg. The reference range was not used to interpret this result as normal/abnormal . pO2, Arterial (test 95 See_Comment H [Automa afshin message] code = 2703-7) The system [facility] generated this result transmit afshin reference range [...] 21 Lab Interpretation Abnormal (test code = 67553-7) [facility] CenterBlood gas, [id number] 04:36:04 Test Item Value Reference Range Interpretation Comments pH, Arterial (test code 7.57 7.35-7.45 H = 2744-1) pCO2, Arterial (test 32 See_Comment L [Autom ated message] code = 2019-8) The system [employer] generated this result transmit afshin reference range : 35 - 45 mm Hg. The reference range was not used to interpret this result as normal/abnormal . pO2, Arterial (test 95 See_Comment H [Automa afshin message] code = 2703-7) The system [employer] generated this result transmit afshin reference range [...] 21 Lab Interpretation Abnormal (test code = 14220-6) [facility] CenterBLOOD GAS, [id number] 04:36:04 Test Item Value Reference Range Interpretation [...] (BEAKER) (test code = 1819) 21.0 CALCIUM, [id number] 04:35:09 Test Item Value Reference Range Interpretation Comments CALCIUM IONIZED (BEAKER) (test 1.14 mmol/L 1.12-1.27 code = 698) PH, BLOOD (BEAKER) (test code = 7.57 1810) BLOOD [id number] 04:00:34 Test Item Value Reference Range Interpretation Comments CULTURE (BEAKER) (test No growth in 5 days code = 1095) BLOOD [id number] 04:00:34 Test Item Value Reference Range Interpretation Comments CULTURE (BEAKER) (test No growth in 5 days code = 1095) The specimen volume collected for this blood culture was below the optimum (10 mL per bottle or 20 mL total). Use of lower volumes may adversely affect recovery and/or detection times of some organisms.[id number] 22:55:23 Test Item Value Reference Range Interpretation Comments POTASSIUM (BEAKER) (test code = 3.5 meq/L 3.5-5.1 379) Sound Person ID - BSPOCT-GLUCOSE [id number] 22:35:33 Test Item Value Reference Range Interpretation Comments POC-GLUCOSE METER 147 mg/dL 70-110 H : TESTED A T [facility] 6720 (BEAKER) (test code = [address]SE [place], 1538) [address]: Sound Person/Techni shantelle ID = [id number] for As Loran medina PERIPHERAL BLOOD SMEAR - PATHOLOGIST [id number] 19:05:26 Test Item Value Reference Interpretation Comments Range RBC MORPHOLOGY See comment Hypochromic, macrocytic (BEAKER) (test anemia with m oderate code = 2846) anisopoikilocyt osis with abundant target cells, occasional [...] MORPHOLOGY No Satellitosis (BEAKER) (test code = 046039) PLT MORPHOLOGY See comment Decreased wit h normal (BEAKER) (test granular morp hology. code = 252022) Occasional la rge forms. [facility] Lebron Joel MD T-6112 (BEAKER) (electronic (test code = signature) 2849) [id number] 18:29:48 Test Item Value Reference Range Interpretation Comments MAGNESIUM (BEAKER) (test code = 2.0 mg/dL 1.6-2.6 627) Sound Person ID - [id number] 18:29:48 Test Item Value Reference Range Interpretation Comments POTASSIUM (BEAKER) (test code = 2.9 meq/L 3.5-5.1 L 379) Sound Person ID - BSPOCT-GLUCOSE [id number] 16:24:12 Test Item Value Reference Range Interpretation Comments POC-GLUCOSE METER 255 mg/dL 70-110 H : TESTED A T [facility] 6720 (BEAKER) (test code = [address], 1538) [address]: Sound Person/Techni shantelle ID = [id number] for Sa alberto (contract), Tania draper Drug screen, urine, [id number] 11:05:31 Test Item Value Reference Range Interpretation Comments Scan Result (test code = See scanned report [id number]) SONIA (test code = SONIA) See scanned report [facility] CenterDrug screen, urine, [id number] 11:05:31 Test Item Value Reference Range Interpretation Comments Scan Result (test code = See scanned report [id number]) SONIA (test code = SONIA) See scanned report [facility] CenterDrug [facility], urine, [id number] 11:05:31 Test Item Value Reference Range Interpretation Comments Scan Result (test code = See scanned report [id number]) SONIA (test code = SONIA) See scanned report [facility] CenterDRUG SCREEN, URINE, [id number] 11:05:31 Test Item Value Reference Range Interpretation Comments SCAN RESULT (test code = See scanned report [id number]) See scanned reportSPIN/CONCENTRATION [id number] 10:21:14 Test Item Value Reference Range Interpretation Comments Concentration charged (test code = Done 2657) [facility] CenterPIN/CONCENTRATION [id number] 10:21:14 Test Item Value Reference Range Interpretation Comments Concentration charged (test code = Done 2657) [facility] CenterPIN/CONCENTRATION [id number] 10:21:14 Test Item Value Reference Range Interpretation Comments Concentration charged (test code = Done 2657) [facility] CenterPIN[facility]CONCENTRATION [id number] 10:21:14 Test Item Value Reference Range Interpretation Comments CONCENTRATION CHARGED (BEAKER) (test Done code = 2657) POCT-GLUCOSE [id number] 09:57:37 Test Item Value Reference Range Interpretation Comments POC-GLUCOSE METER 203 mg/dL 70-110 H : TESTED A T [facility] 6720 (BEAKER) (test code = [address], 1538) [address]: Sound Person/Techni shantelle ID = [id number] for Sa asherevettealyson (contract)Tania CALCIUM, [id number] 06:27:45 Test Item Value Reference Range Interpretation Comments CALCIUM IONIZED (BEAKER) (test 1.12 mmol/L 1.12-1.27 code = 698) PH, BLOOD (BEAKER) (test code = 7.55 1810) BLOOD GAS, [id number] 06:26:46 Test Item Value Reference Range Interpretation [...] (test code = 1819) 40.0 COMPREHENSIVE METABOLIC [id number] 05:21:14 Test Item Value Reference Range Interpretation [...] St age Description sq m Result G1 [place] l or high >=90 G2 Mildly decreased [...] not appl icable for dialysis patien ts Sound Person ID - PIAYA LSpecimen moderately ictericRAD, CHEST, 1 VIEW, NON DEPT 2022-03-07 04:31:00Reason for exam:->intubatedShould this be performed at the bedside?->Yes[facility] : 1985 Sex: FFINAL REPORT CLINICAL [...] Remaining support lines are stable. Signed: Jagdeep Salgueroeport Verified Date/Time: 03/07/2022 04:31:34 [id number] 04:29:31 Test Item Value Reference Range Interpretation Comments MAGNESIUM (BEAKER) (test code = 2.0 mg/dL 1.6-2.6 627) Sound Person ID - PIAYA [id number] 04:29:31 Test Item Value Reference Range Interpretation Comments PHOSPHORUS (BEAKER) (test code = 1.8 mg/dL 2.3-4.7 L 604) Sound Person ID - PIAYA LCBC (HEMOGRAM ONLY)2022-03-07 04:28:18 [...] 0-0 (test code = 413) LACTIC ACID, [id number] 04:18:05 Test Item Value Reference Range Interpretation Comments LACTATE BLOOD ARTERIAL (2) 1.4 mmol/L 0.5-2.2 (BEAKER) (test code = 2874) Sound Person ID - PIAYA LSpecimen moderately [id number] 04:15:06 Test Item Value Reference Range Interpretation Comments FIBRINOGEN LEVEL (BEAKER) (test 147 mg/dl 225-434 L code = 658) PROTHROMBIN TIME/[id number] 04:10:01 Test Item Value Reference Range Interpretation Comments PROTIME (BEAKER) 23.5 seconds 11.9-14.2 H (test code = 759) INR (BEAKER) (test 2.16 See_Comment [Automat ed message] code = 370) The system Truli generated this result transmitted ref erence range: <=5.90. The reference range was not used to int erpret this result as normal/abnormal . RECOMMENDED COUMADIN/WARFARIN INR THERAPY RANGESSTANDARD DOSE: 2.0 - 3.0 Includes: PROPHYLAXIS for venous thrombosis, systemic embolization; TREATMENT for venous thrombosis and/or pulmonary embolus.HIGH RISK: Target INR is 2.5-3.5 for patients with mechanical heart valves.VANCOMYCIN LEVEL, [id number] 00:47:14 Test Item Value Reference Range Interpretation Comments VANCOMYCIN TROUGH (BEAKER) (test 10.6 ug/mL 10.0-20.0 code = 522) Sound Person ID - MITCHPOCT-GLUCOSE [id number] 16:41:51 Test Item Value Reference Range Interpretation Comments POC-GLUCOSE METER 154 mg/dL 70-110 H : TESTED A T [facility] 6720 (BEAKER) (test code = [facility], 1538) [address]: Sound Person/Techni shantelle ID = [id number] for Mando gibson (contract)Kelly POCT-GLUCOSE [id number] 12:35:45 Test Item Value Reference Range Interpretation Comments POC-GLUCOSE METER 174 mg/dL 70-110 H : TESTED A T [facility] 6720 (BEAKER) (test code = [facility] [place] Soccer Manager [facility], 1538) [address]: Sound Person/Techni shantelle ID = [id number] for SHANNON MAYER BLOOD GAS, [id number] 12:30:55 Test Item Value Reference Range Interpretation [...] = 1819) 40.0 BRONCHIAL CULTURE + GRAM [id number] 08:46:49 Test Item Value Reference Range Interpretation Comments CULTURE (BEAKER) (test code See comment = 1095) GRAM STAIN RESULT (BEAKER) No WBCs (test code = 1123) GRAM STAIN RESULT (BEAKER) No organisms seen (test code = 67370) <1+ YeastBRONCHIAL CULTURE + GRAM [id number] 08:46:16 Test Item Value Reference Range Interpretation Comments CULTURE (BEAKER) (test code No growth = 1095) GRAM STAIN RESULT (BEAKER) <1+ WBCs (test code = 1123) GRAM STAIN RESULT (BEAKER) No organisms seen (test code = 18759) BLOOD GAS, [id number] 05:26:10 Test Item Value Reference Range Interpretation [...] (test code = 1819) 40.0 OXYGEN SATURATION, [id number] 05:22:52 Test Item Value Reference Range Interpretation Comments O2 SATURATION (MEASURED) (BEAKER) 88.7 % (test code = 1455) [id number] 05:17:50 Test Item Value Reference Range Interpretation Comments PHOSPHORUS (BEAKER) (test code = 1.4 mg/dL 2.3-4.7 LL 604) Sound Person ID - PIAYA LCOMPREHENSIVE METABOLIC [id number] 05:11:10 Test Item Value Reference Range Interpretation [...] St age Description sq m Result G1 [place] l or high >=90 G2 Mildly decreased [...] not appl icable for dialysis patien ts Sound Person ID - GEOVANNA LSpecimen moderately [id number] 05:11:09 Test Item Value Reference Range Interpretation Comments MAGNESIUM (BEAKER) (test code = 2.3 mg/dL 1.6-2.6 627) Sound Person ID Kt [place] LCALCIUM, [id number] 04:51:39 Test Item Value Reference Range Interpretation Comments CALCIUM IONIZED (BEAKER) (test 1.13 mmol/L 1.12-1.27 code = 698) PH, BLOOD (BEAKER) (test code = 7.50 1810) [id number] 04:33:13 Test Item Value Reference Range Interpretation Comments FIBRINOGEN LEVEL (BEAKER) (test 161 mg/dl 225-434 L code = 658) PROTHROMBIN TIME/[id number] 04:32:15 Test Item Value Reference Range Interpretation Comments PROTIME (BEAKER) 21.8 seconds 11.9-14.2 H (test code = 759) INR (BEAKER) (test 2.04 See_Comment [Automat ed message] code = 370) The system Truli generated this result transmitted ref erence range: <=5.90. The reference range was not used to int erpret this result as normal/abnormal . RECOMMENDED COUMADIN/WARFARIN INR THERAPY RANGESSTANDARD DOSE: 2.0 - 3.0 Includes: PROPHYLAXIS for venous thrombosis, systemic embolization; TREATMENT for venous thrombosis and/or pulmonary embolus.HIGH RISK: Target INR is 2.5-3.5 for patients with mechanical heart valves.LACTIC ACID, [id number] 04:28:57 Test Item Value Reference Range Interpretation Comments LACTATE BLOOD ARTERIAL (2) 1.4 mmol/L 0.5-2.2 (BEAKER) (test code = 2874) Sound Person ID - PIAYA LSpecimen moderately ictericCBC (HEMOGRAM ONLY)2022-03-06 04:18:50 Test Item [...] = 413) RAD, CHEST, 1 VIEW, NON [id number] 03:08:00Reason for exam:- >intubatedShould this be performed at the bedside?->Yes [facility] : 1985 Sex: FFINAL REPORT CLINICAL [...] Salguero MDReport Verified Date/Time: 03/06/2022 03:08:02 POCT-GLUCOSE [id number] 01:21:32 Test Item Value Reference Range Interpretation Comments POC-GLUCOSE METER 283 mg/dL 70-110 H : TESTED A T [facility] 6720 (BEAKER) (test code = [address] [place], 1538) [address]: Sound Person/Techni shantelle ID = [id number] for Mohit Guerra MR, ABDOMEN, [id number] 21:25:00Unlisted Reason for Exam - Click Yes and Enter Reason Below->Yes Unlisted Reason for Exam->CIRRHOSIS/Pre liver transplant EvalCHI MOUNTAIN VIEW CAMPUSName: PAMELA COLLAZO : 1985 Sex: FFINAL REPORT MRI [...] mesenteric edema. No visible hepatic lesions. Signed: Christopher Willardeport Verified Date/Time: 03/05/2022 21:25:37 POCT-GLUCOSE [id number] 20:09:52 Test Item Value Reference Range Interpretation Comments POC-GLUCOSE METER 228 mg/dL 70-110 H : TESTED A T [facility] 6720 (HENRY) (test code = [address] [place], 1538) [address]: Sound Person/Techni shantelle ID = [id number] for Mohit Guerra POCT-GLUCOSE [id number] 18:30:46 Test Item Value Reference Range Interpretation Comments POC-GLUCOSE METER 246 mg/dL 70-110 H : TESTED A T [facility] 6720 (BEAKER) (test code = [place], 1538) [address]: Sound Person/Techni shantelle ID = [id number] for MATTHEW KENDALL BLOOD GAS, [id number] 15:49:08 Test Item Value Reference Range Interpretation [...] (test code = 1819) 50.0 BLOOD GAS, [id number] 14:54:46 Test Item Value Reference Range Interpretation [...] (BEAKER) (test code = 1819) 60.0 POCT-GLUCOSE [id number] 12:55:41 Test Item Value Reference Range Interpretation Comments POC-GLUCOSE METER 206 mg/dL 70-110 H : TESTED A T [facility] 6720 (HENRY) (test code = [address], 1538) [address]: Sound Person/Techni shantelle ID = [id number] for MATTHEW KENDALL RAD, CHEST, 1 VIEW, NON [id number] 12:38:00Reason for exam:->PNAShould this be performed at the bedside?->Yes [facility] 1985 Sex: FFINAL REPORT TECHNIQUE: [...] examination. Lines and tubes remain unchanged. Signed: Natanael Starkey MDReport Verified Date/Time: 03/05/2022 12:38:59 [id number] 06:44:03 Test Item Value Reference Range Interpretation Comments PHOSPHORUS (HENRY) (test code = 1.9 mg/dL 2.3-4.7 L 604) Sound Person [place]MAN [place] MCOMPREHENSIVE METABOLIC [id number] 06:44:03 Test Item Value Reference Range Interpretation [...] not appl icable for dialysis patien ts Sound Person [place] MSpecimen markedly [id number] 06:44:02 Test Item Value Reference Range Interpretation Comments MAGNESIUM (BEAKER) (test code = 2.4 mg/dL 1.6-2.6 627) Sound Person ID - DREAD MLACTIC ACID, [id number] 06:23:30 Test Item Value Reference Range Interpretation Comments LACTATE BLOOD ARTERIAL (2) 1.1 mmol/L 0.5-2.2 (BEAKER) (test code = 2874) Sound Person ID - DREAD MSpecimen markedly [id number] 06:20:31 Test Item Value Reference Range Interpretation Comments FIBRINOGEN LEVEL (BEAKER) (test 192 mg/dl 225-434 L code = 658) PROTHROMBIN TIME/[id number] 06:20:08 Test Item Value Reference Range Interpretation Comments PROTIME (BEAKER) 24.1 seconds 11.9-14.2 H (test code = 759) INR (BEAKER) (test 2.24 See_Comment [Automat ed message] code = 370) The system Truli generated this result transmitted ref erence range: [...] WBC 0-0 (test code = 413) POCT-GLUCOSE [id number] 05:58:51 Test Item Value Reference Range Interpretation Comments POC-GLUCOSE METER 138 mg/dL 70-110 H : TESTED A T [facility] 6720 (BEAKER) (test code = JOSE R Bhanu [place], 1538) [address]: Sound Person/Techni shantelle ID = [id number] for Mohit Guerra BLOOD GAS, [id number] 05:22:09 Test Item Value Reference Range Interpretation [...] (BEAKER) (test code = 1819) 30.0 CALCIUM, [id number] 05:22:09 Test Item Value Reference Range Interpretation Comments CALCIUM IONIZED (BEAKER) (test 1.10 mmol/L 1.12-1.27 L code = 698) PH, BLOOD (BEAKER) (test code = 7.50 1810) OXYGEN SATURATION, [id number] 05:16:58 Test Item Value Reference Range Interpretation Comments O2 SATURATION (MEASURED) (BEAKER) 83.0 % (test code = 1455) POCT-GLUCOSE [id number] 23:56:14 Test Item Value Reference Range Interpretation Comments POC-GLUCOSE METER 151 mg/dL 70-110 H : TESTED A T [facility] 6720 (BEAKER) (test code = [facility] [place], 1538) [address]: Sound Person/Techni shantelle ID = [id number] for Gottlieb idary, Zohal Prepare [id number] 23:54:00 Test Item Value Reference Range Interpretation Comments Unit ABO (test code = O Pos 6716252) UNIT NUMBER (test code = [id number] 934-0) Status (test code = 7810223) [place]_TIMEINCHART Blood Bank Product (test code CRYOPRECIPITATE = 2263) PRODUCT CODE (test code = S5868S01 933-2) [facility] [id number] 23:54:00 Test Item Value Reference Range Interpretation Comments Unit ABO (test code = O Pos 4856924) UNIT NUMBER (test code = [id number] 934-0) Status (test code = 6769577) [place]_TIMEBRIDGTON HOSPITALT Blood Bank Product (test code CRYOPRECIPITATE = 2263) PRODUCT CODE (test code = N9151X87 933-2) [facility] Center[facility] [id number] 23:54:00 Test Item Value Reference Range Interpretation Comments Unit ABO (test code = O Pos 3903416) UNIT NUMBER (test code = [id number] 934-0) Status (test code = 6999998) [place]_TIMEINCSUMMIT [facility]ENTERT Blood Bank Product (test code CRYOPRECIPITATE = 2263) PRODUCT CODE (test code = Q0798Z93 933-2) [facility] CenterPOCT-GLUCOSE [id number] 18:09:15 Test Item Value Reference Range Interpretation Comments POC-GLUCOSE METER 112 mg/dL 70-110 H : TESTED A T [facility] 6720 (BEAKER) (test code = [facility] [place], 1538) [address]: Sound Person/Techni shantelle ID = [id number] for Fo rman Srivastava, Cher CORTISOL,60 [id number] 16:58:18 Test Item Value Reference Range Interpretation [...] Pharmacy Policy and Procedure Section on The Source.Sound Person ID - BSCORTISOL,30 [id number] 16:08:22 Test Item Value Reference Range Interpretation [...] Pharmacy Policy and Procedure Section on The Source.Sound Person ID - ADMINPOCT-GLUCOSE METER 2022-03-04 15:14:11 Test Item Value Reference Range Interpretation Comments POC-GLUCOSE METER 109 mg/dL 70-110 : TESTED A T [facility] 67[facility] (BEAKER) (test code = NATALIEMAGDALENA Drummond [facility], 1538) [address]: Sound Person/Techni shantelle ID = [id number] for SANDRINE NUÑEZ OXYGEN SATURATION, [id number] 15:07:58 Test Item Value Reference Range Interpretation Comments O2 SATURATION (MEASURED) (BEAKER) 69.4 % (test code = 1455) CORTISOL,[id number] 13:25:14 Test Item Value Reference Range Interpretation [...] a study by Madison et al (REN 2000,283(8):8729-45), the ACTH Stimulation Test provides important prognostic [...] Pharmacy Policy and Procedure Section on The Source.Sound Person ID - DREAD MCarotid doppler [id number] 13:08:27Ejection FractionSLEH ECHO HEARTLAB MKCKESSON [facility] CenterCarotid doppler [id number] 13:08:27Ejection FractionSLEH ECHO HEARTLAB MKCKESSON [facility] Hospital[facility]ot[facility] doppler [id number] 13:08:27Ejection FractionSLEH ECHO HEARTLAB MKCKESSON [facility] HospitalVANCOMYCIN LEVEL, [id number] 13:01:29 Test Item Value Reference Range Interpretation Comments VANCOMYCIN TROUGH (BEAKER) (test 14.8 ug/mL 10.0-20.0 code = 522) Sound Person ID - DREAD [id number] 12:58:03 Test Item Value Reference Range Interpretation Comments AMMONIA (BEAKER) (test code = 348) 70 mol/L 18-72 Sound Person ID - DREAD M(MANUAL DIFFERENTIAL)2022-03-04 12:57:10 Test Item Value Reference Range [...] few 480) RAD, CHEST, 1 VIEW, NON [id number] 12:29:00Reason for exam:- >pneumoniaShould this be performed at the bedside?->Yes [facility] : 1985 Sex: FFINAL REPORT EXAMINATION: [...] Otherwise, no significant interval change. Sig joshua: Chloe Brody MDReport Verified Date/Time: 03/04/2022 12:29:56 ANA TITER AND [id number] 12:05:29 Test Item Value Reference Range Interpretation Comments EMILIANO TITER (BEAKER) (test code = :160 1541) EMILIANO PATTERN (BEAKER) (test code = Homogeneous 1781) ANTI-NUCLEAR ANTIBODY (EMILIANO)2022-03-04 12:05:19 Test Item Value Reference Range Interpretation Comments ANTI-NUCLEAR ANTIBODY (EMILIANO) (BEAKER) Positive Negative A (test code = 418) Test performed by IFA method.SPIN/CONCENTRATION [id number] 11:30:22 Test Item Value Reference Range Interpretation Comments CONCENTRATION CHARGED (BEAKER) (test Done code = 2657) SPIN/CONCENTRATION [id number] 11:30:03 Test Item Value Reference Range Interpretation Comments CONCENTRATION CHARGED (BEAKER) (test Done code = 2657) VITAMIN [id number] 11:25:15 Test Item Value Reference Range Interpretation Comments VITAMIN B12 (BEAKER) (test code = > pg/mL 213-816 H 774) Sound Person ID - DREAD MUrinalysis w/Microscopic + Reflex to [id number] 11:11:04 Test Item Value Reference Range Interpretation Comments Color, UA (test code Dark Yellow = 5778-6) Clarity, UA (test Hazy code = 5767-9) Specific [place], UA 1.024 1.001-1.035 (test code = 5811-5) pH, UA (test code = 7.0 5.0-8.0 5803-2) Protein, UA (test 10 mg/dL Negative A code = 05966-7) Glucose, UA (test Negative Negative code = 365) Ketones, UA (test 10 mg/dL Negative A code = 2514-8) Bilirubin, UA (test Positive Negative A code = 00938-8) Blood, UA (test code Negative Negative = 97818-5) Nitrite, UA (test Negative Negative code = 5802-4) Leukocytes, UA (test Negative Negative code = 5799-2) Urobilinogen, UA 2.0 mg/dL 0.2-1.0 H (test code = 84690-7) RBC, UA (test code = 1 See_Comment [Autom ated 81490-9) message] The system which generated this result [...] Bacteria, UA (test None Seen code = 88418-9) Mucus (test code = Many 8247-9) Squam Epithel, UA <1 See_Comment [Automate d (test code = 74842-9) messag e] The system which generated this result transmit afshin reference range : /HPF. The reference range was not used to interpret this result as normal/abnormal . Crystals, Urine (test None Seen code = 72762-9) Specimen Source (test code = 2795) SONIA (test code = SONIA) Sound Person ID - [auto]Sound Person ID - tech Lab Interpretation Abnormal (test code = 68585-6) [facility] CenterUrinalysis w/Microscopic + Reflex to Culture 2022-03-04 11:11:04 Test Item Value Reference Range Interpretation Comments Color, UA (test code Dark Yellow = 5778-6) Clarity, UA (test Hazy code = 5767-9) Specific [place], UA 1.024 1.001-1.035 (test code = 5811-5) pH, UA (test code = 7.0 5.0-8.0 5803-2) Protein, UA (test 10 mg/dL Negative A code = 40254-9) Glucose, UA (test Negative Negative code = 365) Ketones, UA (test 10 mg/dL Negative A code = 2514-8) Bilirubin, UA (test Positive Negative A code = 55155-7) Blood, UA (test code Negative Negative = 32162-9) Nitrite, UA (test Negative Negative code = 5802-4) Leukocytes, UA (test Negative Negative code = 5799-2) Urobilinogen, UA 2.0 mg/dL 0.2-1.0 H (test code = 12725-6) RBC, UA (test code = 1 See_Comment [Autom ated 78957-3) message] The system which generated this result [...] Bacteria, UA (test None Seen code = 91619-9) Mucus (test code = Many 8247-9) Squam Epithel, UA <1 See_Comment [Automate d (test code = 91529-2) messag e] The system which generated this result transmit afshin reference range : /HPF. The reference range was not used to interpret this result as normal/abnormal . Crystals, Urine (test None Seen code = 00991-3) Specimen Source (test code = 2795) SONIA (test code = SONIA) Sound Person ID - [auto]Sound Person ID - tech Lab Interpretation Abnormal (test code = 92867-2) [facility] Center[facility]/Microscopic + Reflex to Culture 2022-03-04 11:11:04 Test Item Value Reference Range Interpretation Comments Color, UA (test code Dark Yellow = 5778-6) Clarity, UA (test Hazy code = 5767-9) Specific [place], UA 1.024 1.001-1.035 (test code = 5811-5) pH, UA (test code = 7.0 5.0-8.0 5803-2) Protein, UA (test 10 mg/dL Negative A code = 48247-9) Glucose, UA (test Negative Negative code = 365) Ketones, UA (test 10 mg/dL Negative A code = 2514-8) Bilirubin, UA (test Positive Negative A code = 49582-3) Blood, UA (test code Negative Negative = 53325-1) Nitrite, UA (test Negative Negative code = 5802-4) Leukocytes, UA (test Negative Negative code = 5799-2) Urobilinogen, UA 2.0 mg/dL 0.2-1.0 H (test code = 42166-6) RBC, UA (test code = 1 See_Comment [Autom ated 17160-7) message] The system which generated this result [...] Bacteria, UA (test None Seen code = 15647-2) Mucus (test code = Many 8247-9) Squam Epithel, UA <1 See_Comment [Automate d (test code = 22868-6) messag e] The system which generated this result transmit afshin reference range : /HPF. The reference range was not used to interpret this result as normal/abnormal . Crystals, Urine (test None Seen code = 97009-5) Specimen Source (test code = 2795) SONIA (test code = SONIA) Sound Person ID - [auto]Sound Person ID - tech Lab Interpretation Abnormal (test code = 69159-1) [facility] CenterURINALYSIS W/ REFLEX URINE [id number] 11:11:04 Test Item Value Reference Range Interpretation [...] = 1521) SOURCE(BEAKER) (test code = 2795) Sound Person ID - [auto]Sound Person ID - techEBV ANTIBODY, [id number] 10:10:17 Test Item Value Reference Range Interpretation Comments MARQUIS ALVAREZ VIRAL CAPSID Positive Negative, Equivocal A ANTIGEN IGG (BEAKER) (test code = 3415) Marquis Alvarez Viral Capsid Antigen IgG Result Interpretation: </= 0.8 Al Negative 0.9-1.0 Al Equivocal >/= 1.1 Al PositiveEBV ANTIBODY, [id number] 10:10:17 Test Item Value Reference Range Interpretation Comments MARQUIS ALVAREZ VIRAL CAPSID Negative Negative, Equivocal ANTIGEN IGM (BEAKER) (test code = 3418) Marquis Alvarez Viral Capsid Antigen IgM Result [...] Positive - Presumed immune VARICELLA ZOSTER ANTIBODY, [id number] 10:10:16 Test Item Value Reference Range Interpretation Comments VARICELLA ZOSTER IGG (AL) (BEAKER) 4.4 (test code = 3197) VARICELLA ZOSTER RESULT INTERPRETATIONS: <=0.8 Al Nonreactive: Presumed non- immune to VZV 0.9-1.0Al Equivocal >=1.1 Al Reactive: Presumed immune to VZV CYTOMEGALOVIRUS ANTIBODY, [id number] 10:10:16 Test Item Value Reference Range Interpretation Comments CYTOMEGALOVIRUS, IGG (BEAKER) Positive Negative, Equivocal A (test code = 3429) CMV IgG Result Interpretation: </= 0.8 Al Negative 0.9-1.0 Al Equivocal >/=1.1 Al [id number] 09:43:54 Test Item Value Reference Range Interpretation Comments T3 TOTAL (BEAKER) (test code = 0.33 ng/mL 0.60-1.81 L 656) Sound Person ID - DSENSONRETICULOCYTE [id number] 09:19:21 Test Item Value Reference Range Interpretation Comments RETICULOCYTE COUNT PCT (BEAKER) (test 6.2 % 0.5-1.7 H code = 575) Sound Person ID - 6000POCT-GLUCOSE [id number] 06:53:00 Test Item Value Reference Range Interpretation Comments POC-GLUCOSE METER 98 mg/dL 70-110 : Notified RN/MD: TESTED (BEAKER) (test code = AT [facility] [address] 7838) [facility], [address]: Sound Person/Techni shantelle ID = [id number] for Emilie lu (contract), Jain everett COMPREHENSIVE METABOLIC [id number] 06:16:07 Test Item Value Reference Range Interpretation [...] St age Description sq m Result G1 [place] l or high >=90 G2 Mildly decreased [...] not appl icable for dialysis patien ts Sound Person ID - DREAD MSpecimen moderately cupnryhDTWPRGPJKT1717-11-72 06:11:59 Test Item Value Reference Range Interpretation Comments PHOSPHORUS (BEAKER) (test code = 2.1 mg/dL 2.3-4.7 L 604) Sound Person SHERMAN [place] [id number] 06:11:58 Test Item Value Reference Range Interpretation Comments MAGNESIUM (BEAKER) (test code = 2.1 mg/dL 1.6-2.6 627) Sound Person SHERMAN - DREAD [facility] [place]22-[place]-04 05:02:41 Test Item Value Reference [...] /100 WBC 0-0 (test code = 413) [id number] 05:00:33 Test Item Value Reference Range Interpretation Comments FIBRINOGEN LEVEL (BEAKER) (test 162 mg/dl 225-434 L code = 658) BLOOD GAS, [id number] 04:18:46 Test Item Value Reference Range Interpretation [...] (BEAKER) (test code = 1819) 40.0 CALCIUM, [id number] 04:18:45 Test Item Value Reference Range Interpretation Comments CALCIUM IONIZED (BEAKER) (test 1.10 mmol/L 1.12-1.27 L code = 698) PH, BLOOD (BEAKER) (test code = 7.51 1810) [id number] 02:10:38 Test Item Value Reference Range Interpretation Comments CORTISOL, TOTAL (BEAKER) (test 12.7 ug/dL 3.7-19.4 code = 2755) Sound Person ID - GEOVANNA LPOCT-GLUCOSE [id number] 01:05:43 Test Item Value Reference Range Interpretation Comments POC-GLUCOSE METER 105 mg/dL 70-110 : Notified RN/MD: (BEAKER) (test code = TESTED AT [facility] 6507 7411) [facility], [address]: Sound Person/Techni shantelle ID = [id number] for Remi gutierrez (contract), Jain everett [id number] 22:42:24 Test Item Value Reference Range Interpretation Comments PHOSPHORUS (BEAKER) (test code = 3.6 mg/dL 2.3-4.7 604) Sound Person ID - GEOVANNA LBASIC METABOLIC [id number] 22:42:24 Test Item Value Reference Range Interpretation [...] De scription 1092) sq m Result G1 [place] l or high >=90 G2 Mildly decreased [...] not appl icable for dialysis patien ts Sound Person ID - GEOVANNA LSpecimen moderately ictericLACTIC ACID, [id number] 22:25:43 Test Item Value Reference Range Interpretation Comments LACTATE BLOOD VENOUS 1.56 mmol/L 0.50-2.20 Specime n slightly (2) (BEAKER) (test hemolyzed code = 0647) Sound Person ID - GEOVANNA LSpecimen moderately ictericCBC (HEMOGRAM [...] code = 754) NUCLEATED RED BLOOD CELLS (AKER) 0 /100 WBC 0-0 (test code = 413) CALCIUM, [id number] 22:14:28 Test Item Value Reference Range Interpretation Comments CALCIUM IONIZED (BEAKER) (test 1.09 mmol/L 1.12-1.27 L code = 698) PH, BLOOD (BEAKER) (test code = 7.43 1810) POCT-GLUCOSE [id number] 20:10:01 Test Item Value Reference Range Interpretation Comments POC-GLUCOSE METER 112 mg/dL 70-110 H : Notified RN/MD: ([facility]) (test code = TESTED AT [facility] 6720 1538) [place] [facility], [address]: Sound Person/Techni shantelle ID = [id number] for Remi gutierrez (contract)Cristobal POCT-GLUCOSE [id number] 18:35:29 Test Item Value Reference Range Interpretation Comments POC-GLUCOSE METER 94 mg/dL 70-110 : TESTED A T [facility] 67 ([facility]) (test code = NATALIEMAGDALENA Drummond [facility], 1538) [address]: Sound Person/Techni shantelle ID = [id number] for RESTREPO SHANNON ECHO W CONTRAST & [id number] 16:56:02Ejection FractionSLEH ECHO HEARTLAB MKCKESSON [facility] & DOPPLER 2022-03-03 16:56:02Ejection FractionSLEH ECHO HEARTLAB MKCKESSON [facility] & [id number] 16:56:02Ejection FractionSLE ECHO HEARTLAB MKCKA.[facility] CRYPTOCOCCAL [id number] 16:05:24 Test Item Value Reference Range Interpretation Comments CRYPTOCOCCAL ANTIGEN, SERUM Negative Negative, Interference (BEAKER) (test code = 1828) [id number] 16:04:51 Test Item Value Reference Range Interpretation Comments RPR SCREEN ([facility]) (test code = Nonreactive Nonreactive 420) [id number] 15:42:44 Test Item Value Reference Range Interpretation Comments T4 TOTAL ([facility]) (test code = 895) 3.9 ug/dL 4.9-11.7 L Sound Person ID - JEFFERSON [id number] 15:13:31 Test Item Value Reference Range Interpretation Comments FERRITIN (HENRY) (test code = 481.60 ng/mL 5.00-275.00 H 361) Sound Person ID - JEFFERSON DU/S, ABDOMINAL, [id number] 15:00:00Reason for exam:->evaluation for cirrhosis; doppler to evaluate for thrombus/budd chiariShould this be performed at the bedside?->Yes [facility] : 1985 Sex: FFINAL REPORT TECHNIQUE: [...] patent. The main portal vein measures 1.1 cm in diameter. There is no confidently visualized flow within the portal vein. The hepatic arterial resi stive indices range from 0.5-0.6 with a proper [...] venous flow. There is questionable flow within themain portal vein on spectral images, and these findings could be due to slow portal venous flow. Further evaluation with either a CT or MR of the abdomen with and without intravenous contrast is recommended for further evaluation. 2.Hepatomegaly with diffuse fatty infiltration of the liver. 3.Small volume upper abdominal ascites Signed: Alfonso Newton MDReport Verified Date/Time: 03/03/2022 15:00:50 U/S, DUPLEX, [id number] 15:00:00Reason for exam:->evaluation for cirrhosis; doppler to evaluate for thrombus /budd chiari [facility] : 1985 Sex: FFINAL REPORT TECHNIQUE: [...] patent. The main portal vein measures 1.1 cm in diameter. There is no confidently visualized flow within the portal vein. The hepatic arterial resi stive indices range from 0.5-0.6 with a proper [...] venous flow. There is questionable flow within themain portal vein on spectral images, and these findings could be due to slow portal venous flow. Further evaluation with either a CT or MR of the abdomen with and without intravenous contrast is recommended for further evaluation. 2.Hepatomegaly with diffuse fatty infiltration of the liver. 3.Small volume upper abdominal ascites Signed: Alfonso Newton [facility] Verified Date/Time: 03/03/2022 15:00:50 HEPATITIS B SURFACE [id number] 14:34:33 Test Item Value Reference Range Interpretation Comments HEPATITIS B SURFACE ANTIBODY < mIU/mL <8.0 (BEAKER) (test code = 647) Sound Person ID - GEOVANNA LHEPATITIS B CORE ANTIBODY, [id number] 14:34:18 Test Item Value Reference Range Interpretation Comments HEPATITIS B CORE TOTAL ANTIBODY Nonreactive Nonreactive (BEAKER) (test code = 497) Sound Person ID - GEOVANNA LCARCINOEMBRYONIC ANTIGEN (CEA)2022-03-03 14:34:17 Test Item Value Reference Range Interpretation Comments CARCINOEMBRYONIC ANTIGEN (BEAKER) 22.0 ng/mL 0.0-5.0 H (test code = 685) Sound Person ID - GEOVANNA LALPHA FETOPROTEIN (AFP), TUMOR [id number] 14:34:17 Test Item Value Reference Range Interpretation Comments ALPHA-FETOPROTEIN (BEAKER) (test 2.0 ng/mL <10.0 code = 1094) Sound Person ID - PIDEE LVITAMIN D, [id number] 14:34:06 Test Item Value Reference Range Interpretation Comments VITAMIN D 25-OH (BEAKER) (test code 4.1 ng/mL 6.6-49.9 L = 2764) Effective 04/26/2017: Reference Range ChangeNew: 6.6-49.9 ng/mL Previous: 13.0- 47.8 ng/mLRecommendedVitamin D Target Range: 30.0-40.0 ng/mLOperator ID - GEOVANNA [id number] 14:33:40 Test Item Value Reference Range Interpretation Comments THYROID STIMULATING HORMONE 0.247 uIU/mL 0.350-4.940 L (BEAKER) (test code = 772) Sound Person ID - GEOVANNA LHIV-1 ANTIGEN WITH HIV-1/2 [id number] 14:32:21 Test Item Value Reference Range Interpretation Comments HIV-1 ANTIGEN WITH HIV 1\\T\\2 Nonreactive Nonreactive ANTIBODY (2) (BEAKER) (test code = 2586) Sound Person ID - GEOVANNA [id number] 14:20:49 Test Item Value Reference Range Interpretation Comments PHOSPHORUS (BEAKER) (test code = 1.4 mg/dL 2.3-4.7 LL 604) Sound Person ID - PIDEE HAILEY, TIBC, % SAT. (WITHOUT FERRITIN)2022-03-03 14:20:38 Test Item Value Reference Range Interpretation Comments IRON (BEAKER) (test code = 547) 38.0 ug/dL 40.0-160.0 L TOTAL IRON BINDING CAPACITY 56 ug/dL 250-450 L (BEAKER) (test code = 769) IRON % SATURATION (2) (BEAKER) 68 % 20-55 H (test code = 2590) Sound Person ID - PIDEE [id number] 14:20:37 Test Item Value Reference Range Interpretation Comments TRANSFERRIN (BEAKER) (test code = 45 mg/dL 174-382 L 541) Sound Person ID - PIDEE LSpecimen moderately peszrdsLRCEE-5-[id number] 14:20:15 Test Item Value Reference Range Interpretation Comments ALPHA-1 ANTITRYPSIN 137.60 mg/dL 90.00-200.00 Specimen slightly (BEAKER) (test code = hemoly zed 502) Sound Person ID - GEOVANNA [id number] 14:18:19 Test Item Value Reference Range Interpretation Comments ETHANOL (BEAKER) < mg/dL See_Comment [Automated message] The (test code = 400) system [email or web address] digital generated this result tra nsmitted reference range : <=10. The reference r yvonne was not used to int erpret this result as normal/abnormal . Sound Person ID - GEOVANNA LBILIRUBIN, [id number] 14:18:18 Test Item Value Reference Range Interpretation Comments BILIRUBIN DIRECT (BEAKER) (test 5.7 mg/dL 0.1-0.5 H code = 706) Sound Person ID - GEOVANNA LGAMMA GLUTAMYL TRANSFERASE (GGT)2022-03-03 14:18:18 Test Item Value Reference Range Interpretation Comments GAMMA GLUTAMYL TRANSFERASE (BEAKER) 86 U/L 9-64 H (test code = 364) Sound Person ID - GEOVANNA LSpecimen moderately ictericCOMPREHENSIVE METABOLIC [...] St age Description sq m Result G1 [place] l or high >=90 G2 Mildly decreased [...] not appl icable for dialysis patien ts Sound Person ID - DELORISDEE LSpecimen moderately ictericLIPID [id number] 14:18:17 Test Item Value Reference Range Interpretation Comments TRIGLYCERIDES (BEAKER) (test code = 80 mg/dL 540) CHOLESTEROL (BEAKER) (test code = 78 mg/dL 631) HDL CHOLESTEROL (BEAKER) (test code 5 mg/dL = 976) LDL CHOLESTEROL CALCULATED (BEAKER) 57 mg/dL (test code = 633) Triglyceride Reference Range: Low Risk <150 Borderline 150-199 High Risk 200- 499 Very High Risk >=500Cholesterol Reference Range: Low Risk <200 Borderline 200-239 High Risk >240HDL Cholesterol Reference Range: Low Risk >=60 High Risk <40LDL Cholesterol Reference Range: Optimal <100 Near Optimal 100-129 Borderline 130-159 High 160-189 Very High >=190 Sound Person ID - GEOVANNA LSpecimen moderately [id number] 14:18:16 Test Item Value Reference Range Interpretation Comments MAGNESIUM (BEAKER) (test code = 2.0 mg/dL 1.6-2.6 627) Sound Person ID - DELORISDEE LURIC [id number] 14:18:16 Test Item Value Reference Range Interpretation Comments URIC ACID (BEAKER) (test code = 3.3 mg/dL 2.6-7.2 773) Sound Person ID - PIAYA LSpecimen moderately ictericBLOOD GAS, [id number] 14:05:05 Test Item Value Reference Range Interpretation [...] 1819) 40.0 CBC W/PLT COUNT & AUTO [id number] 13:56:03 Test Item Value Reference Range Interpretation [...] PERCENT (BEAKER) (test code = 2801) POCT-GLUCOSE [id number] 13:52:04 Test Item Value Reference Range Interpretation Comments POC-GLUCOSE METER 131 mg/dL 70-110 H : TESTED A T [facility] 6720 (BEAKER) (test code = [facility], 153) [address]1982: Sound Person/Techni shantelle ID = [id number] for SHANNON MAYER CALCIUM, [id number] 13:47:51 Test Item Value Reference Range Interpretation Comments CALCIUM IONIZED (BEAKER) (test 1.05 mmol/L 1.12-1.27 L code = 698) PH, BLOOD (BEAKER) (test code = 7.44 1810) POCT-GLUCOSE [id number] 13:25:22 Test Item Value Reference Range Interpretation Comments POC-GLUCOSE METER 51 mg/dL 70-110 L : TESTED A T [facility] 6720 (BEAKER) (test code = [facility], 153) 13220: Sound Person/Techni shantelle ID = [id number] for SHANNON RESTREPO Screen, [id number] 13:09:21 Test Item Value Reference Range Interpretation Comments Preg Test, Ur (test code = 2-1) Negative Negative Lab Interpretation (test code = Normal 47597-1) [facility] [id number] 13:09:21 Test Item Value Reference Range Interpretation Comments Preg Test, Ur (test code = 2112-1) Negative Negative Lab Interpretation (test code = Normal 48364-1) [facility], [id number] 13:09:21 Test Item Value Reference Range Interpretation Comments Preg Test, Ur (test code = 2-1) Negative Negative Lab Interpretation (test code = Normal 16457-9) [facility]Y SCREEN, [id number] 13:09:21 Test Item Value Reference Range Interpretation Comments TEST URINE (BEAKER) (test Negative Negative code = 583) [id number] 13:06:45 Test Item Value Reference Range Interpretation Comments PARTIAL THROMBOPLASTIN TIME 36.2 seconds 22.5-36.0 H (BEAKER) (test code = 760) [id number] 11:15:14 Test Item Value Reference Range Interpretation Comments FIBRINOGEN LEVEL (BEAKER) (test code < mg/dl 225-434 LL = 658) PROTHROMBIN TIME/[id number] 11:02:07 Test Item Value Reference Range Interpretation Comments PROTIME (BEAKER) 29.6 seconds 11.9-14.2 H (test code = 759) INR (BEAKER) (test 3.03 See_Comment [Automat ed message] code = 370) The system Truli generated this result transmitted ref erence range: [...] 0.0 % 0.0-5.0 code = 1414) HEMOGLOBIN [id number] 09:44:25 Test Item Value Reference Range Interpretation Comments HEMOGLOBIN A1C < % See_Comment [Automated m essage] ELECTROPHORESIS (BEAKER) The system which (test code = 3811) generated this result transmitted ref erence range: <=5.6%. The reference range was not used to int erpret this result as normal/abnormal . "The A1c is measured using a NGSP-certified method. HbA1c value equal to or greater than 6.5% as thediagnosis cutoff for diabetes. An HbA1c value of 5.7- 6.4% indicates increased risk for diabetes (prediabetes)."Sound Person ID - ADMOperator ID - ADMBLOOD GAS, [id number] 08:13:19 Test Item Value Reference Range Interpretation [...] FIO2 (BEAKER) (test code = 1819) 40.0 [id number] 03:56:19 Test Item Value Reference Range Interpretation Comments MAGNESIUM (BEAKER) (test code = 2.0 mg/dL 1.6-2.6 627) Sound Person ID - ADMINCOMPREHENSIVE METABOLIC [id number] 03:56:19 Test Item Value Reference Range Interpretation [...] St age Description sq m Result G1 [place] l or high >=90 G2 Mildly decreased [...] not appl icable for dialysis patien ts Sound Person ID - ADMINSpecimen moderately ictericLACTIC ACID, [id number] 03:32:34 Test Item Value Reference Range Interpretation Comments LACTATE BLOOD VENOUS 1.99 mmol/L 0.50-2.20 Specime n slightly (2) (BEAKER) (test hemolyzed code = 2872) Sound Person ID - ADMINSpecimen moderately ictericRAD, CHEST, 1 VIEW, NON DEPT 2022-03-03 03:25:00Reason for exam:->verify ETT placementShould this be performed at the bedside?->Yes [facility] : 1985 Sex: FFINAL REPORT History: [...] without acute osseous abnormality. Signed: Jagdeep Salguero MDReport Verified Date/Time: 03/03/2022 03:25:13 RAD, ABDOMEN/KUB, 1 VIEW [id number] 03:15:00Reason for exam:->verify [place] placementShould this be performed at the bedside?->Yes [facility] 1985 Sex: FFINAL REPORT Supine abdomen 03/03/2022. HISTORY: Dobbhoff tube placement. IMPRESSION: Dobbhoff feeding tube with the tip projecting over the mid to distal stomach. Signed: Christopher Willard Verified Date/Time: 03/03/2022 03:15:16 Electronically signed by: Jess WONG 03/03/2022 03:15 [id number] 03:07:49 Test Item Value Reference Range Interpretation [...] /100 WBC 0-0 (test code = 413) [id number] 03:02:45 Test Item Value Reference Range Interpretation Comments PARTIAL THROMBOPLASTIN TIME 40.9 seconds 22.5-36.0 H (BEAKER) (test code = 760) PROTHROMBIN TIME/[id number] 03:02:07 Test Item Value Reference Range Interpretation Comments PROTIME (BEAKER) 29.1 seconds 11.9-14.2 H (test code = 759) INR (BEAKER) (test 2.97 See_Comment [Automat ed message] code = 370) The system Truli generated this result transmitted ref erence range: <=5.90. The reference range was not used to int erpret this result as normal/abnormal . RECOMMENDED COUMADIN/WARFARIN INR THERAPY RANGESSTANDARD DOSE: 2.0 - 3.0 Includes: PROPHYLAXIS for venous thrombosis, systemic embolization; TREATMENT for venous thrombosis and/or pulmonary embolus.HIGH RISK: Target INR is 2.5-3.5 for patients with mechanical heart valves.Hepatitis A antibody, [id number] 02:22:40 Test Item Value Reference Range Interpretation Comments Hep A IgM (test code = Nonreactive Nonreactive 39380-4) SONIA (test code = SONIA) Sound Person ID - PIAYA L Lab Interpretation (test Normal code = 75643-2) [facility], [id number] 02:22:40 Test Item Value Reference Range Interpretation Comments Hep A IgM (test code = Nonreactive Nonreactive 45564-8) SONIA (test code = SONIA) Sound Person ID - PIAYA L Lab Interpretation (test Normal code = 29878-5) [facility] Center[facility] antibody, [id number] 02:22:40 Test Item Value Reference Range Interpretation Comments Hep A IgM (test code = Nonreactive Nonreactive 77930-7) SONIA (test code = SONIA) Sound Person ID - PIAYA L Lab Interpretation (test Normal code = 09372-8) [facility], [id number] 02:22:40 Test Item Value Reference Range Interpretation Comments HEPATITIS A IGM ANTIBODY (BEAKER) Nonreactive Nonreactive (test code = 498) Sound Person ID - PIAYA LHepatitis C [id number] 02:22:39 Test Item Value Reference Range Interpretation Comments Hepatitis C Ab (test Nonreactive Nonreactive code = 39532-1) SONIA (test code = SONIA) Sound Person ID - PIAYA L Lab Interpretation (test Normal code = 24208-8) [facility] C [id number] 02:22:39 Test Item Value Reference Range Interpretation Comments Hepatitis C Ab (test Nonreactive Nonreactive code = 60137-2) SONIA (test code = SONIA) Sound Person ID - PIAYA L Lab Interpretation (test Normal code = 61873-1) [facility] C [id number] 02:22:39 Test Item Value Reference Range Interpretation Comments Hepatitis C Ab (test Nonreactive Nonreactive code = 96298-2) SONIA (test code = SONIA) Sound Person ID - PIAYA L Lab Interpretation (test Normal code = 78294-1) [facility] C [id number] 02:22:39 Test Item Value Reference Range Interpretation Comments HEPATITIS C ANTIBODY (BEAKER) Nonreactive Nonreactive (test code = 367) Sound Person ID - PIAYA LHepatitis B surface [id number] 02:22:34 Test Item Value Reference Range Interpretation Comments Hepatitis B surface Nonreactive Nonreactive antigen (test code = 5195-3) SONIA (test code = SONIA) Specimen is considered negative for HBsAg. Lab Interpretation (test Normal code = 40591-7) [facility] B core antibody, [id number] 02:22:34 Test Item Value Reference Range Interpretation Comments Hep B C IgM (test code = Nonreactive Nonreactive 18017-0) SONIA (test code = SONIA) Sound Person ID - PIAYA L Lab Interpretation (test Normal code = 56781-9) [facility] surface [id number] 02:22:34 Test Item Value Reference Range Interpretation Comments Hepatitis B surface Nonreactive Nonreactive antigen (test code = 5195-3) SONIA (test code = SONIA) Specimen is considered negative for HBsAg. Lab Interpretation (test Normal code = 83017-7) [facility] B core antibody, [id number] 02:22:34 Test Item Value Reference Range Interpretation Comments Hep B C IgM (test code = Nonreactive Nonreactive 84296-6) SONIA (test code = SONIA) Sound Person ID - GEOVANNA Lucas Lab Interpretation (test Normal code = 13724-6) [facility] [id number] 02:22:34 Test Item Value Reference Range Interpretation Comments Hepatitis B surface Nonreactive Nonreactive antigen (test code = 5195-3) SONIA (test code = SONIA) Specimen is considered negative for HBsAg. Lab Interpretation (test Normal code = 43451-1) [facility] B core antibody, [id number] 02:22:34 Test Item Value Reference Range Interpretation Comments Hep B C IgM (test code = Nonreactive Nonreactive 61064-4) SONIA (test code = SONIA) Sound Person ID - GEOVANNA Lucas Lab Interpretation (test Normal code = 36935-0) [facility] SURFACE [id number] 02:22:34 Test Item Value Reference Range Interpretation Comments HEPATITIS B SURFACE ANTIGEN (2) Nonreactive Nonreactive (BEAKER) (test code = 2585) Specimen is considered negative for HBsAg.HEPATITIS B CORE ANTIBODY, IGM 2022-02-28 02:22:34 Test Item Value Reference Range Interpretation Comments HEPATITIS B CORE IGM ANTIBODY Nonreactive Nonreactive (BEAKER) (test code = 645) Sound Person ID - GEOVANNA LEthanol [id number] 10:53:00 Test Item Value Reference Range Interpretation Comments Ethanol (test code 199 mg/dL The pharm acological = ETOH) response to blo od alcohol levels mayvary from individual to i ndividual. The fatal bakari ntrationhas been reported t o be >400mg/dL. Ethanol [id number] 06:15:00 Test Item Value Reference Range Interpretation Comments Ethanol (test code 287 mg/dL The pharm acological = ETOH) response to blo od alcohol levels mayvary from individual to i ndividual. The fatal bakari ntrationhas been reported t o be >400mg/dL. Ethanol [id number] 02:50:00 Test Item Value Reference Range Interpretation Comments Ethanol (test code 324 mg/dL The pharm acological = ETOH) response to blo od alcohol levels mayvary from individual to i ndividual. The fatal bakari ntrationhas been reported t o be >400mg/dL. Urine [id number] 20:45:00 Test Item Value Reference Range Interpretation Comments RBC,Urine (test code = 0-2 /HPF 0-2 URBC.SURGICAL SUPPLIES STERILIZER) WBC,Urine (test code = 0-5 /HPF 0-5 UWBC.SURGICAL SUPPLIES STERILIZER) Bacteria,Urine (test Few /HPF None Seen A code = UBACT.SURGICAL SUPPLIES STERILIZER) Squamous Epithelial 0-5 /HPF 0-5 Cell,Urine (test code = USQEPI.SURGICAL SUPPLIES STERILIZER) Hyaline Casts,Urine None Seen /HPF None Seen (test code = UHYALC.XX) Reviewed (test code = Manual Micr Reviewed [facility]) UF REFLEXUF REFLEXUA, Urinalysis Rflx Cult/[id number] 20:45:00 Test Item Value Reference Range Interpretation Comments Color,Urine (test code = UCOL) Dark Yellow Yellow A Clarity,Urine (test code = Clear Clear UCLAR) Ph, Urine (test code = UPH) 7.0 5.0-9.0 N Specific [place],Urine (test >= 1.030 1.005-1.030 N code = [...] A code = ULEU) UF REFLEXUF REFLEXDrug Screen,[id number] 20:45:00 Test Item Value Reference Range Interpretation [...] code = HCGU) Negative Negative Comprehensive Metabolic [id number] 20:45:00 Test Item Value Reference Range Interpretation [...] 280 U/L 46-116 H = ALP) Ethanol [id number] 20:45:00 Test Item Value Reference Range Interpretation Comments Ethanol (test code 442 mg/dL HH Critical value called to = ETOH) andread back by Malik TODD[] on: 0 01/21/22 at 2221by BNM17.Th e pharmacological response to blood alcoho l levels mayvary from in dividual to individual. The fatal concentrationha s been reported to be >400mg/dL. Complete Blood Count Auto [id number] 20:45:00 Test Item Value Reference Range Interpretation [...] = NRBCP) 0 % Coronavirus PCR, COVID19 [id number] 20:45:00 Test Item Value Reference Range Interpretation Comments Coronavirus PCR, For use under Emergency COVID19 Rapid (test Use Authorization (EUA) code = SARSCOV2) only. Coronavirus PCR, Reference Range: COVID19 Rapid (test Negative code = CFZACIW88.1) SARS-CoV-2 PCR Result: Negative by RT-PCR (test code = SARS-CoV-2 PCR Result:) COVID-19 Status: Xarlxxdzomvi83 Lead [id number] 16:30:0112 LEAD EKG FOR [facility] Test Date: [id number] Name: PAMELA MANNLISA Department: 5520Patient ID: [id number] Room: OTFGender: F Superintendent Track: [id number]: 1985 Requested By: HEBER Bañuelos Number: [id number] Reading MD: Cherri Matt MeasurementsIntervals [place] Rate: 122 P: 78PR: 118 QRS: 74QRSD: 82 T: 75QT: 337 QTc: 410 Interpretive StatementsSINUS TACHYCARDIA WITH SHORT VA INTERVALNONSPECIFIC T-WAVE ABNORMALITYABNORMAL RHYTHM ECGElectronically Signed On 01-10-2022 16:07:49 CDT by CherriMyMichigan Medical Center GladwinPosiGen Solar SolutionsSaint Elizabeth EdgewoodClash Media Advertising Zbmhpq21 Lead EKG 2022-01-07 16:30:0112 LEAD EKG FOR [facility] Test Date: [id number] Name: PAMELA OBRIEN Department: 5520Patient ID: [id number] Room: OTFGender: F Superintendent Track: [id number]: 1985 Requested By: HEBER Bañuelos Number: [id number] Reading MD: Cherri Matt MeasurementsIntervals [place] Rate: 122 P: 78PR: 118 QRS: 74QRSD: 82 T: 75QT: 337 QTc: 410 Interpretive StatementsSINUS TACHYCARDIA WITH SHORTPR INTERVALNONSPECIFIC T-WAVE ABNORMALITYABNORMAL RHYTHM ECGElectronically Signed On 01-10-2022 16:07:49 CDT by Cherri [facility] Adult Care UnitPosiGen Solar SolutionsSaint Elizabeth EdgewoodClash Media Advertising [facility] HealthBASIC METABOLIC [id number] 08:24:00 Test Item Value Reference Range Interpretation [...] >3 months. [Automated mess age] The system Truli generated this result transmitted ref erence range: >=60. Th e reference range was not used to int erpret this result as normal/abnormal . CREATININE (test 0.40 mg/dL 0.55-1.02 L Note craig ge in code = CREAT) reference rang e due to change in reagent. BUN/CREATININE RATIO 14.3 10-20 N (test code = BUN/CREA) CALCIUM (test code = 8.2 mg/dL 8.5-10.1 L CA) [id number] 08:24:00 Test Item Value Reference Range Interpretation Comments MAGNESIUM (test code = MAG) 1.8 mg/dL 1.8-2.4 N UR OSMOLALITY [id number] 12:16:00 Test Item Value Reference Range Interpretation Comments UR OSMOLALITY RANDOM (test code = 420 mOsm/kg 48-962 N OSMOU) OSMOLALITY [id number] 12:16:00 Test Item Value Reference Range Interpretation Comments OSMOLALITY SERUM (test code = 271 mOsm/kg 275-295 L OSMO) 1355BASIC METABOLIC [id number] 06:15:00 Test Item Value Reference Range Interpretation [...] >3 months. [Automated mess age] The system Truli generated this result transmitted ref erence range: >=60. Th e reference range was not used to int erpret this result as normal/abnormal . CREATININE (test 0.40 mg/dL 0.55-1.02 L Note craig ge in code = CREAT) reference rang e due to change in reagent. BUN/CREATININE RATIO 12.8 10-20 N (test code = BUN/CREA) CALCIUM (test code = 7.7 mg/dL 8.5-10.1 L CA) [id number] 06:15:00 Test Item Value Reference Range Interpretation Comments PHOSPHORUS (test code = PHOS) 3.6 mg/dL 2.5-4.9 N [id number] 06:15:00 Test Item Value Reference Range Interpretation Comments MAGNESIUM (test code = MAG) 1.7 mg/dL 1.8-2.4 L OSMOLALITY [id number] 19:46:00 Test Item Value Reference Range Interpretation Comments OSMOLALITY SERUM (test code = 271 MOS/KG 275-295 L OSMO) [id number] OSMOLALITY [id number] 19:40:00 Test Item Value Reference Range Interpretation Comments UR OSMOLALITY RANDOM (test code = 420 MOS/KG 300-1000 N OSMOU) [id number] NA,[id number] 14:56:00 Test Item Value Reference Range Interpretation Comments UR NA,RANDOM (test code = SUN) 72 mmol/L 20-110 N UR OSMOLALITY [id number] 14:56:00 Test Item Value Reference Range Interpretation Comments UR OSMOLALITY RANDOM (test code = mOsm/kg 48-962 OSMOU) BASIC METABOLIC [id number] 05:32:00 Test Item Value Reference Range Interpretation [...] >3 months. [Automated mess age] The system Truli generated this result transmitted ref erence range: >=60. Th e reference range was not used to int erpret this result as normal/abnormal . CREATININE (test 0.30 mg/dL 0.55-1.02 L Note craig ge in code = CREAT) reference rang e due to change in reagent. BUN/CREATININE RATIO 15.6 10-20 N (test code = BUN/CREA) CALCIUM (test code = 7.4 mg/dL 8.5-10.1 L CA) [id number] 05:32:00 Test Item Value Reference Range Interpretation Comments PHOSPHORUS (test code = PHOS) 2.4 mg/dL 2.5-4.9 L [id number] 05:32:00 Test Item Value Reference Range Interpretation Comments MAGNESIUM (test code = MAG) 1.6 mg/dL 1.8-2.4 L BASIC METABOLIC [id number] 06:14:00 Test Item Value Reference Range Interpretation [...] >3 months. [Automated mess age] The system Truli generated this result transmitted ref erence range: >=60. Th e reference range was not used to int erpret this result as normal/abnormal . CREATININE (test code 0.40 mg/dL 0.55-1.02 L Note change in = CREAT) reference range due to change in reagent. BUN/CREATININE RATIO 12.8 10-20 N (test code = BUN/CREA) CALCIUM (test code = 6.9 mg/dL 8.5-10.1 L CA) [id number] 06:14:00 Test Item Value Reference Range Interpretation Comments MAGNESIUM (test code = MAG) 1.3 mg/dL 1.8-2.4 L COMPREHENSIVE METABOLIC [id number] 05:04:00 Test Item Value Reference Range Interpretation Comments SODIUM (test code = 130 mmol/L 136-145 L NA) POTASSIUM (test code 2.5 mmol/L 3.5-5.1 LL Results called to = K) [id number] by JAYSON PérezGP 12/31/21 0504Cr itical results verifie d and read back by Kelly rsnathan? Y FOR ALL ICU PATIENT EXCLUDI NG HOLD PLEASE CALL [phone] CHLORIDE (test code = 99.0 mmol/L 98-107 [...] >3 months. [Automated mess age] The system Truli generated this result transmitted ref erence range: [...] = 51.94 % 13-45 H FESAT) VITAMIN [id number] 05:04:00 Test Item Value Reference Range Interpretation Comments VITAMIN B12 (test code = VITB12) 3896 pg/mL 193-986 H TSH REFLEX TO [id number] 05:04:00 Test Item Value Reference Range Interpretation Comments TSH REFLEX TO FT4 (test code = 1.3 0.4-5.5 N TSHREFLEX) [id number] 05:04:00 Test Item Value Reference Range Interpretation Comments FERRITIN (test code = MARIANNE) 272 ng/mL 8-388 N LACTIC [id number] 04:50:00 Test Item Value Reference Range Interpretation Comments LACTIC ACID (test 2.9 mmol/L 0.4-1.9 HH Results ca lled to code = LACT) [id number] by JAYSON PérezGP 12/31/21 0450Cr itical results verifie d and read back by Kelly brady? Y FOR ALL ICU PATIENT EXCLUDING HOLD PLEASE CALL [phone] CBC W/AUTO [id number] 04:18:00 Test Item Value Reference Range Interpretation [...] DIFF REQUIRED (test code NO = MDIFF) [id number] 21:11:00 Test Item Value Reference Range Interpretation Comments SODIUM (test code = NA) 130 mmol/L 136-145 L BASIC METABOLIC [id number] 14:49:00 Test Item Value Reference Range Interpretation Comments SODIUM (test code = 129 mmol/L 136-145 L RESULT V ERIFIED BY NA) REPEAT ANALYSIS POTASSIUM (test code 2.5 mmol/L 3.5-5.1 LL Results called to = K) [id number] by 11ED Q5539 12/30/21 1447Cr itical results verifie d and read back by Kelly rse? Y FOR ALL ICU PATIENT EXCLUDI NG HOLD PLEASE CALL [phone] CHLORIDE (test code 100.0 mmol/L 98-107 N [...] >3 months. [Automated mess age] The system Truli generated this result transmitted ref erence range: [...] 7.4 mg/dL 8.5-10.1 L CA) COMPREHENSIVE METABOLIC [id number] 08:42:00 Test Item Value Reference Range Interpretation Comments SODIUM (test code = 137 mmol/L 136-145 RESULT V ERIFIED BY NA) REPEAT ANALYSIS POTASSIUM (test code 2.2 mmol/L 3.5-5.1 LL Results called to = K) [id number] by 2QUZ 5695 12/30/21 0839Critical re sults verified and re ad back by Nurse? JASMIN WILLINGHAM D BY REPEAT ANALYSIS FOR ALL ICU PATIENT EXCLUDI NG HOLD PLEASE CALL * [phone] CHLORIDE (test code = 107.0 mmol/L 98-107 [...] >3 months. [Automated mess age] The system Truli generated this result transmit afshin reference range [...] range due ALKP) to change in reagent. [id number] 08:42:00 Test Item Value Reference Range Interpretation Comments PHOSPHORUS (test code = PHOS) 3.0 mg/dL 2.5-4.9 N [id number] 08:42:00 Test Item Value Reference Range Interpretation Comments MAGNESIUM (test code = MAG) 1.8 mg/dL 1.8-2.4 N CBC W/AUTO [id number] 03:29:00 Test Item Value Reference Range Interpretation [...] = 0.00 K/mm3 0.0-0.1 N NRBC#) LACTIC [id number] 21:59:00 Test Item Value Reference Range Interpretation Comments LACTIC ACID (test 4.2 mmol/L 0.4-1.9 HH Results ca lled to code = LACT) [id number] by JAYSON BOYD 12/29/21 2159Cr itical results verifie d and read back by Kelly rsnathan? Y FOR ALL ICU PATIENT EXCLUDING HOLD PLEASE CALL [phone] BASIC METABOLIC [id number] 21:59:00 Test Item Value Reference Range Interpretation Comments SODIUM (test code = 129 mmol/L 136-145 L NA) POTASSIUM (test code 2.3 mmol/L 3.5-5.1 LL Results called to = K) [id number] by JAYSON PérezLT 12/29/21 2159Cr itical results verifie d and read back by Kelly rsnathan? Y FOR ALL ICU PATIENT EXCLUDI NG HOLD PLEASE CALL [phone] CHLORIDE (test code = 96.0 mmol/L 98-107 [...] >3 months. [Automated mess age] The system Truli generated this result transmitted ref erence range: >=60. Th e reference range was not used to int erpret this result as normal/abnormal . CREATININE (test code 2.20 mg/dL 0.55-1.02 H Note change in = CREAT) reference range due to change in reagent. BUN/CREATININE RATIO 5.9 10-20 L (test code = BUN/CREA) CALCIUM (test code = 6.9 mg/dL 8.5-10.1 L CA) HEPATIC FUNCTION [id number] 21:59:00 Test Item Value Reference Range Interpretation [...] range due ALKP) to change in reagent. [id number] 21:50:00 Test Item Value Reference Range Interpretation Comments AMMONIA (test code = AMM) 55 umol/L 11-32 H - US ABDOMEN [id number] 18:33:00 [facility] 1985 Sex: F Name: PAMELA OBRIEN [facility] : 1985 Age/S: 36 / F [address] [facility] Unit #: [id number] Loc: [place] [address] Phys: Alexis Fitzpatrick DO Acct: [id number] Dis Date: Status: ADM IN PHONE #: [phone] Exam Date: 12/29/2021 1806 FAX #: [phone] Reason: CIRRHOSIS, EVALUATE FOR ASCITES, ORGANOMEGALY EXAMS: CPT CODE: [id number] US ABDOMEN COMPLETE [id number] REASON FOR EXAM: CIRRHOSIS, EVALUATE FOR ASCITES, ORGANOMEGALY EXAM ORDER DATE: 12/29/2021 4:10 PM Attending Emely: Alexis Fitzpatrick DO PROCEDURE: - US ABDOMEN COMPLETE Technique: Grayscale and color Doppler images of the abdomen. Comparison study: None FINDINGS: Aorta and IVC: Patent and grossly normal in caliber. Liver: S ize: 16.5 cm craniocaudally Parenchyma and contour: Smooth contour. Increased echogenicity. Cysts and/or masses: None. Intrahepatic bile ducts: No intrahepatic biliary ductal dilation Common bile duct:3.2 mm in diameter. No echogenic filling defects in visualized duct. Gallbladder: Stones/sludge: No i ntraluminal stones or sludge. Wall: 1.9 mm in [...] 1 Signed Report (CONTINUED) Name: PAMELA OBRIEN [facility] : 1985 Age/S: 36 / F [address] Unit #: [id number] Loc: [place] [address] Phys: Alexis Fitzpatrick DO Acct: [id number] Dis Date: Status: ADM IN PHONE #: [phone] Exam Date: 12/29/2021 180 FAX #: [phone] Reason: CIRRHOSIS, EVALUATE FOR ASCITES, ORGANOMEGALY EXAMS: CPT CODE: [id number] US ABDOMEN COMPLETE 78154 (Continued) Left kidney: parenchyma echogenicity: Normal echogenicity size: 11 x 4.9 x 4.6 cm stones: none cysts/masses: none hydronephrosis: none Spleen: size: 9.2 cm cysts/masses: Parenchyma is sonographically unremarkable. Ascites/pleural effusions: None IMPRESSION: Hepatomegaly with hepatic steatosis. No ascites. Location: at 1833 Reported and signed by: London Madrid M.D. CC: Alexis Fitzpatrick DO Technologist: Celsa Cage Trnscb Date/Time: 12/29/2021 (183) [email or web address] Orig Print D/T: S: 12/29/2021 (1836) Probe: PAGE 2 Signed ReportPROTHROMBIN TIME 2021-12-29 [...] valves (2.5-3.5) IS PATIENT ON ANTICOAGULANTS? NURINALYSIS [id number] 17:45:00 Test Item Value Reference Range Interpretation Comments UA COLOR (test code = YELLOW YELLOW COLU) UA APPEARANCE (test Cloudy CLEAR A IS THE S AMPLE code = APPU) FROM ER OR L&D? ER IF THE ANSWER I S NO,PLEASE DOCUMENT TWO RN SIGNATURES HERE - by [id number] 12/29/21 1724 UA GLUCOSE DIPSTICK NEGATIVE mg/dL NEGATIVE (test [...] FEW A MUCU) Urine Source? Clean CatchLACTIC [id number] 15:30:00 Test Item Value Reference Range Interpretation Comments LACTIC ACID (test 5.9 mmol/L 0.4-1.9 HH Results ca lled to code = LACT) [id number] by JAYSON Pérez 12/29/21 1530Cr itical results verifie d and read back by Kelly rse? Y FOR ALL ICU PATIENT EXCLUDING HOLD PLEASE CALL [phone] [id number] 15:18:00 Test Item Value Reference Range Interpretation Comments MAGNESIUM (test code = MAG) 1.0 mg/dL 1.8-2.4 L BASIC METABOLIC [id number] 15:18:00 Test Item Value Reference Range Interpretation [...] ICU PATIENT EXCLUDI NG HOLD PLEASE CALL [phone] CHLORIDE (test code = 90.0 mmol/L 98-107 [...] >3 months. [Automated mess age] The system Truli generated this result transmitted ref erence range: >=60. Th e reference range was not used to int erpret this result as normal/abnormal . CREATININE (test code 2.40 mg/dL 0.55-1.02 H Note change in = CREAT) reference range due to change in reagent. BUN/CREATININE RATIO 3.8 10-20 L (test code = BUN/CREA) CALCIUM (test code = 5.4 mg/dL 8.5-10.1 LL Results called to DR ELLIOTT) AGMARIBELLBIAKAby V.L AB.LT 12/29/21 1518Cr itical results verifie d and read back by Nu rse? Y CREATINE KINASE (CK)2021-12-29 15:18:00 Test Item Value Reference Range Interpretation Comments CREATINE KINASE (CK) (test code = 67 IUnit/L 26-208 N CK) [id number] 15:07:00 Test Item Value Reference Range Interpretation Comments PHOSPHORUS (test code = PHOS) 2.5 mg/dL 2.5-4.9 N CBC W/O [id number] 14:26:00 Test Item Value Reference Range Interpretation [...] N = MPV) - CT HEAD/BRAIN W/O [id number] 14:16:00 [facility])Name: JOHNATHANLISA PAMELA : 1985 Sex: F Name: PAMELA OBRIEN [facility] : 1985 Age/S: 36 / F [address] Unit #: [id number] Loc: [place] [address] Phys: Mana Biggs MD Acct: [id number] Dis Date: Status: ALONDRA JIN #: [phone] Exam Date: 12/29/2021 1403 FAX #: [phone] Reason: weakness of bilat LE EXAMS: CPT CODE: [id number] CT HEAD/BRAIN W/O CONT 08137 HISTORY: weakness of bilat LE TECHNIQUE: Noncon trast 2.[address] of the head. [...] are unremarkable. IMPRESSION: Negative CT head. Location: [facility] at 1416 Reported and signed by:Rd Avitia MD CC: Mana Biggs MD Technologist:Annie BeckRT(R),CT CTDI: DLP: Trnscb Date/Time: 12/29/2021 (1416) [email or web address] Orig Print D/T: S: 12/29/2021 (9371) PAGE 1 Signed Report- XR CHEST 1 [id number] 13:51:00 [facility])Name: PAMELA OBRIEN : 1985 Sex: F FAX: Mana Ritter [phone] [place]: St: REG Name: PAMELA OBRIEN [facility] : 1985 Age/S: 36/F [address] [facility] Unit #: [id number] Loc: V.[place] [address] Phys: Mana Biggs MD Acct: [id number] Dis Date: Status: REG ER PHONE #: [phone] Exam Date: 12/29/2021 1344 FAX #: [phone] Reason: weakness EXAMS: CPT CODE: [id number] XR CHEST 1 V 67722 REASON FOR EXAM: weakness Exam Order Date: 12/29/2021 1:12 PM Ordering M.DDominique: Mana Biggs MD PROCEDURE: - XR CHEST [...] Severe dextroscoliosis of the thoracic spine. Location: [facility] at 1351 Reported and signed by: Rd Avitia MD CC: Mana Biggs MD Technologist: JERAMY FAGAN JR RT(R); STUDENT TECHNOLOGIST Trnscrd Date/Time/By: 12/29/2021 (8689) : By: [email or web address] Orig Print D/T: S: 12/29/2021 (9569) PAGE 1 Signed ReportCOMP. METABOLIC PANEL (58902)2020-11-20 09:27:15 Test Item Value Reference Range Interpretation Comments NA (test code = 135 mmol/L 135-145 5468580596) K (test code = 4.0 mmol/L 3.5-5.0 0826579998) CL (test code = 99 mmol/L 98-108 3180136865) CO2 TOTAL (test code 29 mmol/L 23-31 = 2654199460) AGAP (test code = 7 2-16 9725864051) BUN (test code = 9 mg/dL 7-23 2656708002) GLUCOSE (test code = 97 mg/dL 70-110 2177565571) CREATININE (test code 0.53 mg/dL 0.50-1.04 = 8220312978) TOTAL BILI (test code 0.4 mg/dL 0.1-1.1 = 2793452850) CALCIUM (test code = 9.1 mg/dL 8.6-10.6 7487122831) T PROTEIN (test code 7.0 g/dL 6.3-8.2 = 1379937373) ALBUMIN (test code = 4.0 g/dL 3.5-5.0 3024568088) ALK PHOS (test code = 52 U/L 34-122 7665707350) ALTv (test code = 13 U/L 5-35 1742-6) AST(SGOT) (test code 27 U/L 13-40 = 0096840189) eGFR (test code = 132.0 mL/min/1.73m2 4656887957) SONIA (test code = SONIA) Association of [...] or urine or abnormalities in imaging tests). [facility] [id number] 09:27:00 Test Item Value Reference Range Interpretation Comments POCT PREG (test code = 1605) negative On board controls acceptable with C present Line (test code = 3574) Lab Interpretation (test code = Normal 25920-9) [facility] HospitalBILI UNCONJUGATED/BILI [id number] 09:26:34 Test Item Value Reference Range Interpretation Comments BILI CONJ (test code = 5485464770) 0.0 mg/dL 0.0-0.3 BILI UNCON (test code = 0259140968) 0.2 mg/dL 0.1-1.1 Lab Interpretation (test code = Normal 29413-6) [facility] HospitalPROTHROMBIN [facility] / [id number] 09:18:33 Test Item Value Reference Range Interpretation [...] tions. Lab Interpretation (test Normal code = 75643-3) [facility] HospitalCBC WITH [id number] 09:03:56 Test Item Value Reference Range Interpretation Comments WBC (test code = 6.87 See_Comment [Automated 2690-2) message] The sy stem which generated this [...] (test code = 51.1 fL 39.0-49.9 H 23534-8) RDW-CV (test code = 22.0 % 12.0-15.5 H 788-0) PLT (test code = 268 See_Comment [Automated 777-3) message] The sy stem which generated this result transmitted reference range : 166 - 358 10*3/ ?L. The reference r yvonne was not used to interpret this result as normal/abnormal . MPV (test code = 9.4 fL 9.5-12.9 L 07032-8) NRBC/100 WBC (test 0.0 See_Comment [Automat ed code = 6830299048) message] The system which generated this result transmitted reference range : 0.0 - 10.0 /100 WBCs. The refer ence range was not u sed to interpret th is result as normal/abnormal . NRBC x10^3 (test code <0.01 See_Comment [Auto mated = 5731110149) message] The s ystem which generated this result transmitted reference range : 10*3/?L. The reference range was not used to interpret this result as normal/abnormal . GRAN MAT (NEUT) % 65.0 % (test code = 770-8) IMM GRAN % (test code 0.30 % = 9599688038) LYMPH % (test code = 25.5 % 736-9) MONO % (test code = 7.4 % 5905-5) EOS % (test code = 0.9 % 713-8) BASO % (test code = 0.9 % 706-2) GRAN MAT x10^3(ANC) 4.47 10*3/uL 1.88-7.09 (test code = 1495022992) IMM GRAN x10^3 (test <0.03 0.00-0.06 code = 3996824136) LYMPH x10^3 (test code 1.75 10*3/uL 1.32-3.29 = 731-0) MONO x10^3 (test code 0.51 10*3/uL 0.33-0.92 = 742-7) EOS x10^3 (test code = 0.06 10*3/uL 0.03-0.39 711-2) BASO x10^3 (test code 0.06 10*3/uL 0.01-0.07 = 704-7) Lab Interpretation Abnormal (test code = 63715-4) [facility] HospitalPOKY GLUCOSE (AUTOMATED)2020-11-20 08:38:55 Test Item Value Reference Range Interpretation Comments POCT GLU (test code = 1051918048) 104 mg/dL 70-110 Lab Interpretation (test code = Normal 83454-1) [facility] [id number] 21:41:00 Test Item Value Reference Range Interpretation Comments Iron (test code = Iron) 11 [facility] [id number] 21:41:00 Test Item Value Reference Range Interpretation Comments TIBC (test code = TIBC) 285 [facility] [id number] 21:41:00 Test Item Value Reference Range Interpretation Comments % Satur Fe (test code = % Satur Fe) 4 [facility] [id number] 21:41:00 Test Item Value Reference Range Interpretation Comments Iron (test code = Iron) 11 [facility] [id number] 21:41:00 Test Item Value Reference Range Interpretation Comments TIBC (test code = TIBC) 285 [facility] [id number] 21:41:00 Test Item Value Reference Range Interpretation Comments % Satur Fe (test code = % Satur Fe) 4 [facility] [id number] 09:48:00 Test Item Value Reference Range Interpretation Comments Lipase Lvl (test code = Lipase Lvl) 679 73393 [facility]2021-03-01 09:48:00 Test Item Value Reference Range Interpretation Comments Glucose Lvl (test code = Glucose Lvl) 74 70-99 [facility]2021-03-01 09:48:00 Test Item Value Reference Range Interpretation Comments BUN (test code = BUN) 02-04 [facility]2021-03-01 09:48:00 Test Item Value Reference Range Interpretation Comments Creatinine Lvl (test code = Creatinine 0.49 0.50-1.40 Lvl) [facility]2021-03-01 09:48:00 Test Item Value Reference Range Interpretation Comments Sodium Lvl (test code = Sodium Lvl) 136 135-145 [facility]2021-03-01 09:48:00 Test Item Value Reference Range Interpretation Comments Potassium Lvl (test code = Potassium 3.0 3.5-5.1 Lvl) [facility]2021-03-01 09:48:00 Test Item Value Reference Range Interpretation Comments Lipase Lvl (test code = Lipase Lvl) 679 73 [facility]2021-03-01 09:48:00 Test Item Value Reference Range Interpretation Comments Glucose Lvl (test code = Glucose Lvl) 74 70- [facility]2021-03-01 09:48:00 Test Item Value Reference Range Interpretation Comments BUN (test code = BUN) 02-04 [facility]2021-03-01 09:48:00 Test Item Value Reference Range Interpretation Comments Creatinine Lvl (test code = Creatinine 0.49 0.50-1.40 Lvl) [facility]2021-03-01 09:48:00 Test Item Value Reference Range Interpretation Comments Sodium Lvl (test code = Sodium Lvl) 136 135-145 [facility]2021-03-01 09:48:00 Test Item Value Reference Range Interpretation Comments Potassium Lvl (test code = Potassium 3.0 3.5-5.1 Lvl) [facility]2021-03-01 09:48:00 Test Item Value Reference Range Interpretation Comments Chloride Lvl (test code = Chloride Lvl) 99 95-109 [facility]2021-03-01 09:48:00 Test Item Value Reference Range Interpretation Comments CO2 (test code = CO2) 33 24-32 [place] 198461-03-01 09:48:00 Test Item Value Reference Range Interpretation Comments AGAP (test code = AGAP) 7.0 10.0-20.0 [place] 1984[address]-03-01 09:48:00 Test Item Value Reference Range Interpretation Comments Calcium Lvl (test code = Calcium Lvl) 8.4 8.5-10.5 [place] [address]-03-01 09:48:00 Test Item Value Reference Range Interpretation Comments B/C Ratio (test code = B/C Ratio) 20 1 6-25 [place] [address]-03-01 09:48:00 Test Item Value Reference Range Interpretation Comments Total Protein (test code = Total 5.8 6.4-8.4 Protein) [place] [address]-03-01 09:48:00 Test Item Value Reference Range Interpretation Comments Albumin Lvl (test code = Albumin Lvl) 2.4 3.5-5.0 [place] [address]-03-01 09:48:00 Test Item Value Reference Range Interpretation Comments Globulin (test code = Globulin) 3.4 2.7-4.2 [place] [address]-03-01 09:48:00 Test Item Value Reference Range Interpretation Comments A/G Ratio (test code = A/G Ratio) 0.7 1 0.7-1.6 [place] [address]-03-01 09:48:00 Test Item Value Reference Range Interpretation Comments ALT (test code = ALT) 27 See_Comment [Auto mated message] The system which ge nerated this result transmit afshin reference range : <=65. The reference range was not used to interpr et this result as modesto l/abnormal. [facility] [id number] 09:48:00 Test Item Value Reference Range Interpretation Comments AST (test code = AST) 36 See_Comment [Auto mated message] The system which ge nerated this result transmit afshin reference range : <=37. The reference range was not used to interpr et this result as modesto l/abnormal. [facility] [id number] 09:48:00 Test Item Value Reference Range Interpretation Comments Alk Phos (test code = Alk Phos) 57 39-136 [place] [address]-03-01 09:48:00 Test Item Value Reference Range Interpretation Comments Bili Total (test code = Bili Total) 0.4 0.2-1.3 [place] [address]-03-01 09:48:00 Test Item Value Reference Range Interpretation Comments eGFR (test code = eGFR) 127 [place] [address]-03-01 09:48:00 Test Item Value Reference Range Interpretation Comments Magnesium Lvl (test code = Magnesium 2.2 1.8-2.4 Lvl) [place] [address]-03-01 09:48:00 Test Item Value Reference Range Interpretation Comments Phosphorus (test code = Phosphorus) 3.4 2.5-4.5 [place] [address]-03-01 09:48:00 Test Item Value Reference Range Interpretation Comments Chloride Lvl (test code = Chloride Lvl) 99 95-109 [place] 454231-03-01 09:48:00 Test Item Value Reference Range Interpretation Comments Segs (test code = Segs) 56.4 45.0-75.0 [place] 454231-03-01 09:48:00 Test Item Value Reference Range Interpretation Comments Lymphocytes (test code = Lymphocytes) 32.0 20.0-40.0 [place] 454231-03-01 09:48:00 Test Item Value Reference Range Interpretation Comments Monocytes (test code = Monocytes) 7.6 2.0-12.0 [place] 454231-03-01 09:48:00 Test Item Value Reference Range Interpretation Comments Eosinophils (test code = 3.2 See_Comment [A utomated message] The Eosinophils) system which nerated this result tra nsmitted reference range : <=4.0. The reference r yvonne was not used to int erpret this result as normal/abnormal . [place] 454231-03-01 09:48:00 Test Item Value Reference Range Interpretation Comments Basophils (test code = 0.8 See_Comment [Aut omated message] The Basophils) system which ge nerated this result tra nsmitted reference range : <=1.0. The reference r yvonne was not used to int erpret this result as normal/abnormal . [place] 454231-03-01 09:48:00 Test Item Value Reference Range Interpretation Comments Neutrophils # (test code = Neutrophils 2.3 1.5-8.1 #) [id number] 09:48:00 Test Item Value Reference Range Interpretation Comments Lymphocytes # (test code = Lymphocytes 1.3 1.0-5.5 #) [facility] HospitalBxrhphuNJEOCJORMZ8685-52-41 09:48:00 Test Item Value Reference Range Interpretation Comments Monocytes # (test code 0.3 See_Comment [Aut omated message] The = Monocytes #) system which generated this result tra nsmitted reference range : <=0.8. The reference r yvonne was not used to int erpret this result as normal/abnormal . [place] 454231-03-01 09:48:00 Test Item Value Reference Range Interpretation Comments Eosinophils # (test code 0.1 See_Comment [A utomated message] The = Eosinophils #) system whic h generated this result tra nsmitted reference range : <=0.5. The reference r yvonne was not used to int erpret this result as normal/abnormal . [facility] HospitalWixmrymPFERTBCBUU3047-55-54 09:48:00 Test Item Value Reference Range Interpretation Comments Microcyte (test code = 3+ *NA*(09/14/20 3:48 Microcyte) AM) [place] 454231-03-01 09:48:00 Test Item Value Reference Range Interpretation Comments WBC (test code = WBC) 4.1 3.7-10.4 [place] 454231-03-01 09:48:00 Test Item Value Reference Range Interpretation Comments RBC (test code = RBC) 3.58 4.20-5.40 [place] 454231-03-01 09:48:00 Test Item Value Reference Range Interpretation Comments Hgb (test code = Hgb) 7.1 12.0-16.0 [place] [address]-03-01 09:48:00 Test Item Value Reference Range Interpretation Comments Hct (test code = Hct) 22.5 36.0-48.0 [place] 454231-03-01 09:48:00 Test Item Value Reference Range Interpretation Comments MCV (test code = MCV) 62.8 80.0-98.0 [place] 454231-03-01 09:48:00 Test Item Value Reference Range Interpretation Comments MCH (test code = MCH) 19.8 pg 27.0-31.0 [facility] HospitalPewdxbvCVFSANBFLR9118-38-18 09:48:00 Test Item Value Reference Range Interpretation Comments MCHC (test code = MCHC) 31.5 32.0-36.0 [facility] HospitalYhhbffwGHMOBJATYN7712-18-69 09:48:00 Test Item Value Reference Range Interpretation Comments RDW (test code = RDW) 23.2 11.5-14.5 [place] 454231-03-01 09:48:00 Test Item Value Reference Range Interpretation Comments Platelet (test code = Platelet) 239 133-450 [facility] HospitalZrlyoumAIZALSSNUB5403-00-59 09:48:00 Test Item Value Reference Range Interpretation Comments MPV (test code = MPV) 8.4 7.4-10.4 [facility]2021-03-01 09:48:00 Test Item Value Reference Range Interpretation Comments CO2 (test code = CO2) 33 24-32 [facility]2021-03-01 09:48:00 Test Item Value Reference Range Interpretation Comments AGAP (test code = AGAP) 7.0 10.0-20.0 [facility]2021-03-01 09:48:00 Test Item Value Reference Range Interpretation Comments Calcium Lvl (test code = Calcium Lvl) 8.4 8.5-10.5 [facility]2021-03-01 09:48:00 Test Item Value Reference Range Interpretation Comments B/C Ratio (test code = B/C Ratio) 20 1 6-25 [facility]2021-03-01 09:48:00 Test Item Value Reference Range Interpretation Comments Total Protein (test code = Total 5.8 6.4-8.4 Protein) [facility]2021-03-01 09:48:00 Test Item Value Reference Range Interpretation Comments Albumin Lvl (test code = Albumin Lvl) 2.4 3.5-5.0 [facility]2021-03-01 09:48:00 Test Item Value Reference Range Interpretation Comments Globulin (test code = Globulin) 3.4 2.7-4.2 [facility]2021-03-01 09:48:00 Test Item Value Reference Range Interpretation Comments A/G Ratio (test code = A/G Ratio) 0.7 1 0.7-1.6 [facility] [id number] 09:48:00 Test Item Value Reference Range Interpretation Comments ALT (test code = ALT) 27 See_Comment [Auto mated message] The system which ge nerated this result transmit afshin reference range : <=65. The reference range was not used to interpr et this result as modesto l/abnormal. [facility] [id number] 09:48:00 Test Item Value Reference Range Interpretation Comments AST (test code = AST) 36 See_Comment [Auto mated message] The system which ge nerated this result transmit afshin reference range : <=37. The reference range was not used to interpr et this result as modesto l/abnormal. [facility] [id number] 09:48:00 Test Item Value Reference Range Interpretation Comments Alk Phos (test code = Alk Phos) 57 39-136 [facility] [id number] 09:48:00 Test Item Value Reference Range Interpretation Comments Bili Total (test code = Bili Total) 0.4 0.2-1.3 [facility] [id number] 09:48:00 Test Item Value Reference Range Interpretation Comments eGFR (test code = eGFR) 127 [facility] SCBWH0848-70-96 09:48:00 Test Item Value Reference Range Interpretation Comments Magnesium Lvl (test code = Magnesium 2.2 1.8-2.4 Lvl) [facility] IKXWC6455-43-08 09:48:00 Test Item Value Reference Range Interpretation Comments Phosphorus (test code = Phosphorus) 3.4 2.5-4.5 [facility] HospitalMifoaqtUSTMAUAKIM3947-52-27 09:48:00 Test Item Value Reference Range Interpretation Comments Segs (test code = Segs) 56.4 45.0-75.0 [facility] HospitalJhgkdliJXJCMVUZJF3736-05-17 09:48:00 Test Item Value Reference Range Interpretation Comments Lymphocytes (test code = Lymphocytes) 32.0 20.0-40.0 [facility] HospitalVlzyajnUSPZNHYFTL1588-60-27 09:48:00 Test Item Value Reference Range Interpretation Comments Monocytes (test code = Monocytes) 7.6 2.0-12.0 [place] 454231-03-01 09:48:00 Test Item Value Reference Range Interpretation Comments Eosinophils (test code = 3.2 See_Comment [A utomated message] The Eosinophils) system which ge nerated this result tra nsmitted reference range : <=4.0. The reference r yvonne was not used to int erpret this result as normal/abnormal . [facility] HospitalFndjdeyWOGKBZYJXJ4754-71-38 09:48:00 Test Item Value Reference Range Interpretation Comments Basophils (test code = 0.8 See_Comment [Aut omated message] The Basophils) system which ge nerated this result tra nsmitted reference range : <=1.0. The reference r yvonne was not used to int erpret this result as normal/abnormal . [place] 454231-03-01 09:48:00 Test Item Value Reference Range Interpretation Comments Neutrophils # (test code = Neutrophils 2.3 1.5-8.1 #) [place] 454231-03-01 09:48:00 Test Item Value Reference Range Interpretation Comments Lymphocytes # (test code = Lymphocytes 1.3 1.0-5.5 #) [facility] HospitalTujcifoVDHVWVNMJY4784-17-53 09:48:00 Test Item Value Reference Range Interpretation Comments Monocytes # (test code 0.3 See_Comment [Aut omated message] The = Monocytes #) system which generated this result tra nsmitted reference range : <=0.8. The reference r yvonne was not used to int erpret this result as normal/abnormal . [facility] HospitalObhwxyeKAXWKZVDOC3881-41-81 09:48:00 Test Item Value Reference Range Interpretation Comments Eosinophils # (test code 0.1 See_Comment [A utomated message] The = Eosinophils #) system whic h generated this result tra nsmitted reference range : <=0.5. The reference r yvonne was not used to int erpret this result as normal/abnormal . [facility] HospitalGguylvbPNZXUTPUWV5801-25-06 09:48:00 Test Item Value Reference Range Interpretation Comments Microcyte (test code = 3+ *NA*(09/14/20 3:48 Microcyte) AM) [facility] HospitalVdmajboULAGQVTZFG4408-15-75 09:48:00 Test Item Value Reference Range Interpretation Comments WBC (test code = WBC) 4.1 3.7-10.4 [place] 454231-03-01 09:48:00 Test Item Value Reference Range Interpretation Comments RBC (test code = RBC) 3.58 4.20-5.40 [place] 454231-03-01 09:48:00 Test Item Value Reference Range Interpretation Comments Hgb (test code = Hgb) 7.1 12.0-16.0 [place] 454231-03-01 09:48:00 Test Item Value Reference Range Interpretation Comments Hct (test code = Hct) 22.5 36.0-48.0 [facility] HospitalWdqmcloUVDAOCUHLP9808-81-21 09:48:00 Test Item Value Reference Range Interpretation Comments MCV (test code = MCV) 62.8 80.0-98.0 [place] 454231-03-01 09:48:00 Test Item Value Reference Range Interpretation Comments MCH (test code = MCH) 19.8 pg 27.0-31.0 [place] 454231-03-01 09:48:00 Test Item Value Reference Range Interpretation Comments MCHC (test code = MCHC) 31.5 32.0-36.0 [place] 454231-03-01 09:48:00 Test Item Value Reference Range Interpretation Comments RDW (test code = RDW) 23.2 11.5-14.5 [id number] 09:48:00 Test Item Value Reference Range Interpretation Comments Platelet (test code = Platelet) 239 133-450 [facility] HospitalVupglogFTVCMPVXHY0771-67-63 09:48:00 Test Item Value Reference Range Interpretation Comments MPV (test code = MPV) 8.4 7.4-10.4 [facility]2021-02-28 22:56:00 Test Item Value Reference Range Interpretation Comments Iron (test code = Iron) 12 [facility]2021-02-28 22:56:00 Test Item Value Reference Range Interpretation Comments TIBC (test code = TIBC) 311 [facility]2021-02-28 22:56:00 Test Item Value Reference Range Interpretation Comments % Satur Fe (test code = % Satur Fe) 4 [facility]2021-02-28 22:56:00 Test Item Value Reference Range Interpretation Comments Lactic Acid Lvl (test code = Lactic 1.2 0.5-2.2 Acid Lvl) [facility] 22:56:00 Test Item Value Reference Range Interpretation Comments Coronavirus (COVID-19) Not Detected (09/13/20 OLLIE (test code = 4:56 PM) Coronavirus (COVID-19) OLLIE) [facility]2021-02-28 22:56:00 Test Item Value Reference Range Interpretation Comments Iron (test code = Iron) 12 [facility] [id number] 22:56:00 Test Item Value Reference Range Interpretation Comments TIBC (test code = TIBC) 311 [facility]2021-02-28 22:56:00 Test Item Value Reference Range Interpretation Comments % Satur Fe (test code = % Satur Fe) 4 [facility]2021-02-28 22:56:00 Test Item Value Reference Range Interpretation Comments Lactic Acid Lvl (test code = Lactic 1.2 0.5-2.2 Acid Lvl) [facility]OjmxkniUEMLVTHUTK1493-61-00 22:56:00 Test Item Value Reference Range Interpretation Comments Coronavirus (COVID-19) Not Detected (09/13/20 OLLIE (test code = 4:56 PM) Coronavirus (COVID-19) OLLIE) [facility] AND [id number] 20:59:00 Test Item Value Reference Range Interpretation Comments UA Bacteria (test code = UA Many /HPF Bacteria) [facility] AND [id number] 20:59:00 Test Item Value Reference Range Interpretation Comments UA Mucus (test code = UA Mucus) Many /LPF [facility] AND [id number] 20:59:00 Test Item Value Reference Range Interpretation Comments UA Hyal Cast (test 49 See_Comment [Automat ed message] The code = UA Hyal Cast) system which generated this result transmit afshin reference range : <=2. The reference range was not used to interpr et this result as modesto l/abnormal. [facility] Northwest[facility]: [id number] 20:59:00 Test Item Value Reference Range Interpretation Comments Culture: Urine >100,000 CFU/mL Gram (test code = Negative Rods Culture: Urine) Identification And Sensitivity Pending [facility] AND [id number] 20:59:00 Test Item Value Reference Range Interpretation Comments UA Color (test code = Teresa *ABN*(09/13/20 UA Color) 2:59 PM) [facility] AND [id number] 20:59:00 Test Item Value Reference Range Interpretation Comments UA Turbidity (test code Marked *ABN*(09/13/20 = UA Turbidity) 2:59 PM) [facility] AND [id number] 20:59:00 Test Item Value Reference Range Interpretation Comments UA Spec Grav (test code = UA Spec 1.027 1 Grav) [facility] AND [id number] 20:59:00 Test Item Value Reference Range Interpretation Comments UA pH (test code = UA pH) 5.0 1 5.0-8.0 [facility] AND [id number] 20:59:00 Test Item Value Reference Range Interpretation Comments UA Protein (test code = UA Protein) 30 mg/dL [facility] AND [id number] 20:59:00 Test Item Value Reference Range Interpretation Comments UA Glucose (test code = UA Negative mg/dL Glucose) [facility] AND [id number] 20:59:00 Test Item Value Reference Range Interpretation Comments UA Ketones (test code = UA Negative mg/dL Ketones) [facility] AND [id number] 20:59:00 Test Item Value Reference Range Interpretation Comments UA Bili (test code = Negative *NA*(09/13/20 UA Bili) 2:59 PM) [facility] AND [id number] 20:59:00 Test Item Value Reference Range Interpretation Comments UA Blood (test code = Negative (09/13/20 2:59 UA Blood) PM) [facility] AND [id number] 20:59:00 Test Item Value Reference Range Interpretation Comments UA Urobilinogen (test code = UA 2.0 0.1-1.0 Urobilinogen) [facility] AND [id number] 20:59:00 Test Item Value Reference Range Interpretation Comments UA Nitrite (test code Positive *ABN*(09/13/20 = UA Nitrite) 2:59 PM) [facility] AND [id number] 20:59:00 Test Item Value Reference Range Interpretation Comments UA Leuk Est (test Moderate *ABN*(09/13/20 code = UA Leuk Est) 2:59 PM) [facility] AND [id number] 20:59:00 Test Item Value Reference Range Interpretation Comments UA Sq Epi (test code = UA Sq Epi) Few /LPF [facility] AND [id number] 20:59:00 Test Item Value Reference Range Interpretation Comments UA WBC (test code = 157 See_Comment [Automa afshin message] The UA WBC) system which ge nerated this result transmit afshin reference range : <=5. The reference range was not used to interpr et this result as modesto l/abnormal. [facility] AND [id number] 20:59:00 Test Item Value Reference Range Interpretation Comments UA RBC (test code = 18 See_Comment [Automa afshin message] The UA RBC) system which ge nerated this result transmit afshin reference range : <=2. The reference range was not used to interpr et this result as modesto l/abnormal. [facility] AND [id number] 20:59:00 Test Item Value Reference Range Interpretation Comments UA Color (test code = Teresa *ABN*(09/13/20 UA Color) 2:59 PM) [facility] AND [id number] 20:59:00 Test Item Value Reference Range Interpretation Comments UA Turbidity (test code Marked *ABN*(09/13/20 = UA Turbidity) 2:59 PM) [facility] AND [id number] 20:59:00 Test Item Value Reference Range Interpretation Comments UA Spec Grav (test code = UA Spec 1.027 1 Grav) [facility] AND [id number] 20:59:00 Test Item Value Reference Range Interpretation Comments UA pH (test code = UA pH) 5.0 1 5.0-8.0 [facility] AND [id number] 20:59:00 Test Item Value Reference Range Interpretation Comments UA Protein (test code = UA Protein) 30 mg/dL [facility] AND [id number] 20:59:00 Test Item Value Reference Range Interpretation Comments UA Glucose (test code = UA Negative mg/dL Glucose) [facility] AND [id number] 20:59:00 Test Item Value Reference Range Interpretation Comments UA Ketones (test code = UA Negative mg/dL Ketones) [facility] AND [id number] 20:59:00 Test Item Value Reference Range Interpretation Comments UA Bili (test code = Negative *NA*(09/13/20 UA Bili) 2:59 PM) [facility] [id number] 20:59:00 Test Item Value Reference Range Interpretation Comments UA Blood (test code = Negative (09/13/20 2:59 UA Blood) PM) [facility] [id number] 20:59:00 Test Item Value Reference Range Interpretation Comments UA Urobilinogen (test code = UA 2.0 0.1-1.0 Urobilinogen) [facility] [id number] 20:59:00 Test Item Value Reference Range Interpretation Comments UA Nitrite (test code Positive *ABN*(09/13/20 = UA Nitrite) 2:59 PM) [facility] AND [id number] 20:59:00 Test Item Value Reference Range Interpretation Comments UA Leuk Est (test Moderate *ABN*(09/13/20 code = UA Leuk Est) 2:59 PM) [facility] AND [id number] 20:59:00 Test Item Value Reference Range Interpretation Comments UA Sq Epi (test code = UA Sq Epi) Few /LPF [facility] AND [id number] 20:59:00 Test Item Value Reference Range Interpretation Comments UA WBC (test code = 157 See_Comment [Automa afshin message] The UA WBC) system which ge nerated this result transmit afshin reference range : <=5. The reference range was not used to interpr et this result as modesto l/abnormal. [facility] [id number] 20:59:00 Test Item Value Reference Range Interpretation Comments UA RBC (test code = 18 See_Comment [Automa afshin message] The UA RBC) system which ge nerated this result transmit afshin reference range : <=2. The reference range was not used to interpr et this result as modesto l/abnormal. [facility] [id number] 20:59:00 Test Item Value Reference Range Interpretation Comments UA Bacteria (test code = UA Many /HPF Bacteria) [facility] [id number] 20:59:00 Test Item Value Reference Range Interpretation Comments UA Mucus (test code = UA Mucus) Many /LPF [facility] [id number] 20:59:00 Test Item Value Reference Range Interpretation Comments UA Hyal Cast (test 49 See_Comment [Automat ed message] The code = UA Hyal Cast) system which generated this result transmit afshin reference range : <=2. The reference range was not used to interpr et this result as modesto l/abnormal. [facility] Northwest[facility]: [id number] 20:59:00 Test Item Value Reference Range Interpretation Comments Culture: Urine >100,000 CFU/mL Gram (test code = Negative Rods Culture: Urine) Identification And Sensitivity Pending [facility] NorthwestFutureAdvisor [id number] 19:51:00 Test Item Value Reference Range Interpretation Comments Glucose Lvl (test code = Glucose Lvl) 91 70-99 [facility]2021-02-28 19:51:00 Test Item Value Reference Range Interpretation Comments BUN (test code = BUN) 14 7-22 [facility]2021-02-28 19:51:00 Test Item Value Reference Range Interpretation Comments Creatinine Lvl (test code = Creatinine 0.68 0.50-1.40 Lvl) [facility] NorthwestFuture[facility] [id number] 19:51:00 Test Item Value Reference Range Interpretation Comments Sodium Lvl (test code = Sodium Lvl) 130 135-145 [facility] NorthwestFuture[facility] [id number] 19:51:00 Test Item Value Reference Range Interpretation Comments Potassium Lvl (test code = Potassium 4.1 3.5-5.1 Lvl) [facility]2021-02-28 19:51:00 Test Item Value Reference Range Interpretation Comments Chloride Lvl (test code = Chloride Lvl) 95 95-109 [facility]2021-02-28 19:51:00 Test Item Value Reference Range Interpretation Comments CO2 (test code = CO2) 32 24-32 [facility]2021-02-28 19:51:00 Test Item Value Reference Range Interpretation Comments Calcium Lvl (test code = Calcium Lvl) 8.7 8.5-10.5 [facility]2021-02-28 19:51:00 Test Item Value Reference Range Interpretation Comments Total Protein (test code = Total 7.4 6.4-8.4 Protein) [place] [address]-02-28 19:51:00 Test Item Value Reference Range Interpretation Comments Albumin Lvl (test code = Albumin Lvl) 3.2 3.5-5.0 [place] [address]-02-28 19:51:00 Test Item Value Reference Range Interpretation Comments ALT (test code = ALT) 37 See_Comment [Auto mated message] The system which ge nerated this result transmit afshin reference range : <=65. The reference range was not used to interpr et this result as modesto l/abnormal. [place] [address]-02-28 19:51:00 Test Item Value Reference Range Interpretation Comments AST (test code = AST) 48 See_Comment [Auto mated message] The system which ge nerated this result transmit afshin reference range : <=37. The reference range was not used to interpr et this result as modesto l/abnormal. [facility] NorthwestFutureAdvisor [id number] 19:51:00 Test Item Value Reference Range Interpretation Comments Alk Phos (test code = Alk Phos) 72 39-136 [facility] NorthwestFuture[facility] [id number] 19:51:00 Test Item Value Reference Range Interpretation Comments Bili Total (test code = Bili Total) 0.4 0.2-1.3 [facility]Future[facility] [id number] 19:51:00 Test Item Value Reference Range Interpretation Comments AGAP (test code = AGAP) 7.1 10.0-20.0 [facility] NorthwestFuture[facility] [id number] 19:51:00 Test Item Value Reference Range Interpretation Comments B/C Ratio (test code = B/C Ratio) 21 1 6-25 [facility] NorthwestFuture[facility] [id number] 19:51:00 Test Item Value Reference Range Interpretation Comments Globulin (test code = Globulin) 4.2 2.7-4.2 [facility] NorthwestFutureAd[facility] [id number] 19:51:00 Test Item Value Reference Range Interpretation Comments A/G Ratio (test code = A/G Ratio) 0.8 1 0.7-1.6 [place] [address]-02-28 19:51:00 Test Item Value Reference Range Interpretation Comments eGFR (test code = eGFR) 114 [facility] HospitalBall[facility] Systems [id number] 19:51:00 Test Item Value Reference Range Interpretation Comments Lipase Lvl (test code = Lipase Lvl) 4027 88-393 [facility] [id number] 19:51:00 Test Item Value Reference Range Interpretation Comments Ammonia (test code = Ammonia) 24.0 [facility] [id number] 19:51:00 Test Item Value Reference Range Interpretation Comments Lactic Acid Lvl (test code = Lactic 2.6 0.5-2.2 Acid Lvl) [id number] 19:51:00 Test Item Value Reference Range Interpretation Comments S Preg (test code = S Negative *NA*(09/13/20 Preg) 1:51 PM) [facility] Ho[id number] 19:51:00 Test Item Value Reference Range Interpretation Comments WBC (test code = WBC) 7.5 3.7-10.4 [facility] HospitalTesisyaHZXBQKDPTM4890-12-92 19:51:00 Test Item Value Reference Range Interpretation Comments RBC (test code = RBC) 4.01 4.20-5.40 [facility] HospitalHgxlneyHNYNGSDKYW0717-43-18 19:51:00 Test Item Value Reference Range Interpretation Comments Hgb (test code = Hgb) 7.8 12.0-16.0 [facility] [id number] 19:51:00 Test Item Value Reference Range Interpretation Comments Hct (test code = Hct) 24.9 36.0-48.0 [facility] Hospit[id number] 19:51:00 Test Item Value Reference Range Interpretation Comments MCV (test code = MCV) 62.2 80.0-98.0 [place] 454231-02-28 19:51:00 Test Item Value Reference Range Interpretation Comments MCH (test code = MCH) 19.6 pg 27.0-31.0 [facility] Hospit[id number] 19:51:00 Test Item Value Reference Range Interpretation Comments MCHC (test code = MCHC) 31.5 32.0-36.0 [facility] HospitalGpphnwlWVMWTWBSLF0487-16-30 19:51:00 Test Item Value Reference Range Interpretation Comments RDW (test code = RDW) 22.6 11.5-14.5 [place] 454231-02-28 19:51:00 Test Item Value Reference Range Interpretation Comments Platelet (test code = Platelet) 277 133-450 [place] 454231-02-28 19:51:00 Test Item Value Reference Range Interpretation Comments MPV (test code = MPV) 8.1 7.4-10.4 [place] 454231-02-28 19:51:00 Test Item Value Reference Range Interpretation Comments RBC Morph (test code = See Note (09/13/20 1:51 RBC Morph) PM) [facility] HospitalWdcwqezZTPXDGMRYI6545-82-29 19:51:00 Test Item Value Reference Range Interpretation Comments Plt Morph (test code = Normal (09/13/20 1:51 Plt Morph) PM) [place] 454231-02-28 19:51:00 Test Item Value Reference Range Interpretation Comments Segs (test code = Segs) 75.9 45.0-75.0 [place] 454231-02-28 19:51:00 Test Item Value Reference Range Interpretation Comments Lymphocytes (test code = Lymphocytes) 13.6 20.0-40.0 [facility] HospitalNlsquxzYWGEZNMJMR0749-82-01 19:51:00 Test Item Value Reference Range Interpretation Comments Monocytes (test code = Monocytes) 7.4 2.0-12.0 [facility] HospitalAnwugooVHQFQWHIHF1456-86-64 19:51:00 Test Item Value Reference Range Interpretation Comments Eosinophils (test code = 2.6 See_Comment [A utomated message] The Eosinophils) system which ge nerated this result tra nsmitted reference range : <=4.0. The reference r yvonne was not used to int erpret this result as normal/abnormal . [facility] HospitalOwayrhtUEFXUPITKK7189-23-34 19:51:00 Test Item Value Reference Range Interpretation Comments Basophils (test code = 0.5 See_Comment [Aut omated message] The Basophils) system which ge nerated this result tra nsmitted reference range : <=1.0. The reference r yvonne was not used to int erpret this result as normal/abnormal . [facility] HospitalIjerqibOZTWRFOVCJ5924-04-27 19:51:00 Test Item Value Reference Range Interpretation Comments Neutrophils # (test code = Neutrophils 5.7 1.5-8.1 #) [facility] HospitalPmkylgnALWZZGRVNG4038-66-84 19:51:00 Test Item Value Reference Range Interpretation Comments Lymphocytes # (test code = Lymphocytes 1.0 1.0-5.5 #) [place] 454231-02-28 19:51:00 Test Item Value Reference Range Interpretation Comments Monocytes # (test code 0.6 See_Comment [Aut omated message] The = Monocytes #) system which generated this result tra nsmitted reference range : <=0.8. The reference r yvonne was not used to int erpret this result as normal/abnormal . [place] 454231-02-28 19:51:00 Test Item Value Reference Range Interpretation Comments Eosinophils # (test code 0.2 See_Comment [A utomated message] The = Eosinophils #) system whic h generated this result tra nsmitted reference range : <=0.5. The reference r yvonne was not used to int erpret this result as normal/abnormal . [place] 454231-02-28 19:51:00 Test Item Value Reference Range Interpretation Comments Anisocyte (test code = 2+ *ABN*(09/13/20 Anisocyte) 1:51 PM) [place] 454231-02-28 19:51:00 Test Item Value Reference Range Interpretation Comments Microcyte (test code = 2+ *ABN*(09/13/20 Microcyte) 1:51 PM) [address]02-28 19:51:00 Test Item Value Reference Range Interpretation Comments Hypochrom (test code = 1+ (09/13/20 1:51 PM) Hypochrom) [facility]2021-02-28 19:51:00 Test Item Value Reference Range Interpretation Comments Glucose Lvl (test code = Glucose Lvl) 91 70-99 [place] [address]-02-28 19:51:00 Test Item Value Reference Range Interpretation Comments BUN (test code = BUN) 14 7-22 [facility]Future[facility] [id number] 19:51:00 Test Item Value Reference Range Interpretation Comments Creatinine Lvl (test code = Creatinine 0.68 0.50-1.40 Lvl) [facility]2021-02-28 19:51:00 Test Item Value Reference Range Interpretation Comments Sodium Lvl (test code = Sodium Lvl) 130 135-145 [place] 1984[address]-02-28 19:51:00 Test Item Value Reference Range Interpretation Comments Potassium Lvl (test code = Potassium 4.1 3.5-5.1 Lvl) [facility]ResponseTekKRIST[facility] [id number] 19:51:00 Test Item Value Reference Range Interpretation Comments Chloride Lvl (test code = Chloride Lvl) 95 95-109 [place] 1984[address]-02-28 19:51:00 Test Item Value Reference Range Interpretation Comments CO2 (test code = CO2) 32 24-32 [place] [address]-02-28 19:51:00 Test Item Value Reference Range Interpretation Comments Calcium Lvl (test code = Calcium Lvl) 8.7 8.5-10.5 [place] [address]-02-28 19:51:00 Test Item Value Reference Range Interpretation Comments Total Protein (test code = Total 7.4 6.4-8.4 Protein) [place] [address]-02-28 19:51:00 Test Item Value Reference Range Interpretation Comments Albumin Lvl (test code = Albumin Lvl) 3.2 3.5-5.0 [place] [address]-02-28 19:51:00 Test Item Value Reference Range Interpretation Comments ALT (test code = ALT) 37 See_Comment [Auto mated message] The system which ge nerated this result transmit afshin reference range : <=65. The reference range was not used to interpr et this result as modesto l/abnormal. [facility]Future[facility] [id number] 19:51:00 Test Item Value Reference Range Interpretation Comments AST (test code = AST) 48 See_Comment [Auto mated message] The system which ge nerated this result transmit afshin reference range : <=37. The reference range was not used to interpr et this result as modesto l/abnormal. [facility]Future[facility] [id number] 19:51:00 Test Item Value Reference Range Interpretation Comments Alk Phos (test code = Alk Phos) 72 39-136 [facility]Future[facility] [id number] 19:51:00 Test Item Value Reference Range Interpretation Comments Bili Total (test code = Bili Total) 0.4 0.2-1.3 [place] [address]-02-28 19:51:00 Test Item Value Reference Range Interpretation Comments AGAP (test code = AGAP) 7.1 10.0-20.0 [facility]Future[facility] [id number] 19:51:00 Test Item Value Reference Range Interpretation Comments B/C Ratio (test code = B/C Ratio) 21 1 6-25 [place] [address]-02-28 19:51:00 Test Item Value Reference Range Interpretation Comments Globulin (test code = Globulin) 4.2 2.7-4.2 [place] [address]-02-28 19:51:00 Test Item Value Reference Range Interpretation Comments A/G Ratio (test code = A/G Ratio) 0.8 1 0.7-1.6 [place] [address]-02-28 19:51:00 Test Item Value Reference Range Interpretation Comments eGFR (test code = eGFR) 114 [place] [address]-02-28 19:51:00 Test Item Value Reference Range Interpretation Comments Lipase Lvl (test code = Lipase Lvl) 4020 05-393 [place] [address]-02-28 19:51:00 Test Item Value Reference Range Interpretation Comments Ammonia (test code = Ammonia) 24.0 [place] [address]-02-28 19:51:00 Test Item Value Reference Range Interpretation Comments Lactic Acid Lvl (test code = Lactic 2.6 0.5-2.2 Acid Lvl) [place] [id number] 19:51:00 Test Item Value Reference Range Interpretation Comments S Preg (test code = S Negative *NA*(09/13/20 Preg) 1:51 PM) [place] 454231-02-28 19:51:00 Test Item Value Reference Range Interpretation Comments WBC (test code = WBC) 7.5 3.7-10.4 [place] 454231-02-28 19:51:00 Test Item Value Reference Range Interpretation Comments RBC (test code = RBC) 4.01 4.20-5.40 [place] 454231-02-28 19:51:00 Test Item Value Reference Range Interpretation Comments Hgb (test code = Hgb) 7.8 12.0-16.0 [place] 454231-02-28 19:51:00 Test Item Value Reference Range Interpretation Comments Hct (test code = Hct) 24.9 36.0-48.0 [place] 454231-02-28 19:51:00 Test Item Value Reference Range Interpretation Comments MCV (test code = MCV) 62.2 80.0-98.0 [facility] HospitalBcjhlxqPVNSEERGBF9317-68-46 19:51:00 Test Item Value Reference Range Interpretation Comments MCH (test code = MCH) 19.6 pg 27.0-31.0 [facility] HospitalWspbjuhKTMPUVOZOR1853-35-84 19:51:00 Test Item Value Reference Range Interpretation Comments MCHC (test code = MCHC) 31.5 32.0-36.0 [facility] HospitalMxpvogwNDCTWALARN7390-41-01 19:51:00 Test Item Value Reference Range Interpretation Comments RDW (test code = RDW) 22.6 11.5-14.5 [place] 454231-02-28 19:51:00 Test Item Value Reference Range Interpretation Comments Platelet (test code = Platelet) 277 133-450 [facility] HospitalAenybhbZEISAYPECP5052-31-10 19:51:00 Test Item Value Reference Range Interpretation Comments MPV (test code = MPV) 8.1 7.4-10.4 [facility] HospitalQoxxahlRVXGABFOPW2929-26-00 19:51:00 Test Item Value Reference Range Interpretation Comments RBC Morph (test code = See Note (09/13/20 1:51 RBC Morph) PM) [facility] HospitalPaqjaqxRKGAHEOTGX2049-14-89 19:51:00 Test Item Value Reference Range Interpretation Comments Plt Morph (test code = Normal (09/13/20 1:51 Plt Morph) PM) [id number] 19:51:00 Test Item Value Reference Range Interpretation Comments Segs (test code = Segs) 75.9 45.0-75.0 [id number] 19:51:00 Test Item Value Reference Range Interpretation Comments Lymphocytes (test code = Lymphocytes) 13.6 20.0-40.0 [place] [id number] 19:51:00 Test Item Value Reference Range Interpretation Comments Monocytes (test code = Monocytes) 7.4 2.0-12.0 [facility] H[id number] 19:51:00 Test Item Value Reference Range Interpretation Comments Eosinophils (test code = 2.6 See_Comment [A utomated message] The Eosinophils) system which ge nerated this result tra nsmitted reference range : <=4.0. The reference r yvonne was not used to int erpret this result as normal/abnormal . [facility] H[id number] 19:51:00 Test Item Value Reference Range Interpretation Comments Basophils (test code = 0.5 See_Comment [Aut omated message] The Basophils) system which ge nerated this result tra nsmitted reference range : <=1.0. The reference r yvonne was not used to int erpret this result as normal/abnormal . [facility] H[id number] 19:51:00 Test Item Value Reference Range Interpretation Comments Neutrophils # (test code = Neutrophils 5.7 1.5-8.1 #) [facility] [id number] 19:51:00 Test Item Value Reference Range Interpretation Comments Lymphocytes # (test code = Lymphocytes 1.0 1.0-5.5 #) [facility] H[id number] 19:51:00 Test Item Value Reference Range Interpretation Comments Monocytes # (test code 0.6 See_Comment [Aut omated message] The = Monocytes #) system which generated this result tra nsmitted reference range : <=0.8. The reference r yvonne was not used to int erpret this result as normal/abnormal . [facility] H[id number] 19:51:00 Test Item Value Reference Range Interpretation Comments Eosinophils # (test code 0.2 See_Comment [A utomated message] The = Eosinophils #) system whic h generated this result tra nsmitted reference range : <=0.5. The reference r yvonne was not used to int erpret this result as normal/abnormal . [facility] H[id number] 19:51:00 Test Item Value Reference Range Interpretation Comments Anisocyte (test code = 2+ *ABN*(09/13/20 Anisocyte) 1:51 PM) [facility] H[id number] 19:51:00 Test Item Value Reference Range Interpretation Comments Microcyte (test code = 2+ *ABN*(09/13/20 Microcyte) 1:51 PM) [facility] H[id number] 19:51:00 Test Item Value Reference Range Interpretation Comments Hypochrom (test code = 1+ (09/13/20 1:51 PM) Hypochrom) [facility]
[2022-04-03] MEDS ORDERED: LACTULOSE 20 GM/30 ML UCUP ONE (11:25)
[2022-04-03] MEDS ORDERED: FUROSEMIDE 40 MG/4 ML VIAL ONE (11:25)
[2022-04-03 11:49] LABS: Absolute Lymphocytes (CBC) 1.7 K/uL (0.7-4.9); Hematocrit 26.8 % (36.0-45.0); Lymphocytes % 24.1 % (15.3-44.8); MCV 100.8 fL (80-100); MPV 7.2 fL (7.6-11.3); RBC Red Blood Cell Count 2.66 M/uL (3.86-4.86)
[2022-04-03 12:05] LABS: Albumin 2.3 g/dL (3.4-5.0); Bilirubin Total 2.2 mg/dL (0.2-1.0); Potassium 3.7 mmol/L (3.5-5.1); Protein, Total 5.9 g/dL (6.4-8.2)
[2022-04-03 12:43] LABS: Urine Blood Negative (Negative); Urine Glucose Negative (Negative); Urine Protein Negative (Negative); Urine Specific Gravity 1.015 (1.005-1.030); Urine pH 6.5 (5.0-7.0)
[2022-04-03 12:53] LABS: Urine Bacteria <20 /HPF (<20); Urine Mucus 2+ /HPF (None Seen); Urine RBC <5 /HPF (None Seen)
[2022-04-03 13:47] LABS: Urine Specific Gravity/Preg 1.015 (1.005-1.030)
--- NOTE | 2022-04-03 13:50 | ER ---
Nurse's Notes [facility] Name: Divina Collazo Age: 36 yrs Sex: Female : 1985 Arrival Date: 04/03/2022 Time: 10:59 Bed 17 Private MD: Diagnosis: Pedal Edema;Liver Cirrhosis Presentation: 04/03 11:02 Chief complaint: EMS states: "patient called ems becausee of the pain in the right side em6 pressure ulcer. she also states pain in her abdomen where they drained fluid on 03/30/22. hx of liver cirrhosis end stage. bilateral pitting edema on the extremities.". Coronavirus screen: At this time, the client does not indicate any symptoms associated with coronavirus-19. Ebola Screen: Patient negative for fever greater than or equal to 101.5 degrees Fahrenheit, and additional compatible Ebola Virus Disease symptoms. Initial Sepsis Screen: Does the patient meet any 2 criteria? HR > 90 bpm. No. Patient's initial sepsis screen is negative. Does the patient have a suspected source of infection? Yes: Skin breakdown/wound. Risk Assessment: Do you want to hurt yourself or someone else? Patient reports no desire to harm self or others. 11:02 Method Of Arrival: EMS: [facility] em6 11:02 Acuity: GABBY 3 em6 15:27 Onset of symptoms was March 30, 2022. em6 Triage Assessment: 11:07 General: Appears uncomfortable, Behavior is restless. Pain: Complains of pain in right em6 lower quadrant Pain does not radiate. Pain currently is 10 out of 10 on a pain scale. Quality of pain is described as sharp. 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 - Social history:: Smoking status: unknown. Screenin:06 Abuse screen: Denies threats or abuse. Nutritional screening: No deficits noted. em6 Tuberculosis screening: No symptoms or risk factors identified. 11:44 Fall Risk IV access (20 points). Ambulatory Aid- None/Bed Rest/Nurse Assist (0 pts). em6 Gait- Weak (10 pts.). Total Lange Fall Scale indicates Low Risk Score (25-44 pts). Fall prevention measures have been instituted. Side Rails Up X 2 Placed close to Nursing Station Frequent Obs/Assesments occuring As available Patient and Family Educated on Fall Prevention Program and strategies. Assessment: 11:09 General: Appears uncomfortable, Behavior is cooperative, restless. Pain: Complains of em6 pain in right lower quadrant Pain does not radiate. Pain currently is 10 out of 10 on a pain scale. Quality of pain is described as sharp. Neuro: Tavares Agitation-Sedation Scale (RASS): 0 - Alert and Calm Level of Consciousness is awake, alert, obeys commands, Oriented to person, place, time, situation. Cardiovascular: Heart tones present Patient's skin is warm and dry. Respiratory: Airway is patent Respiratory effort is even, unlabored, Respiratory pattern is regular, symmetrical, Breath sounds are clear bilaterally. GI: Abdomen is distended, noted to have ascites, Abd is rigid X 4 quads. : No signs and/or symptoms were reported regarding the genitourinary system. EENT: No signs and/or symptoms were reported regarding the EENT system. Derm: Wound noted right gluteus jesika wound noted, redness noted. no drainage noted on the right upper sacral. Derm: Musculoskeletal: Swelling present in right leg and left leg. 12:10 Reassessment: Patient appears in no apparent distress at this time. No changes from em6 previously documented assessment. Patient and/or family updated on plan of care and expected duration. Pain level reassessed. Patient is alert, oriented x 3, equal unlabored respirations, skin warm/dry/pink. 13:10 Reassessment: Patient appears in no apparent distress at this time. Patient and/or em6 family updated on plan of care and expected duration. Pain level reassessed. Patient is alert, oriented x 3, equal unlabored respirations, skin warm/dry/pink. Patient states symptoms have improved. GI: Abdomen is abdomen appears less distended. 14:03 Reassessment: provider notified of high heart rate. . em6 14:16 Reassessment: Reassessment: provider states to monitor patient heart rate. pending em6 discharge . 15:22 Reassessment: Patient appears in no apparent distress at this time. No changes from em6 previously documented assessment. Patient and/or family updated on plan of care and expected duration. Pain level reassessed. Patient is alert, oriented x 3, equal unlabored respirations, skin warm/dry/pink. awaiting HR to decrease. per md order . 16:20 Reassessment: Patient appears in no apparent distress at this time. No changes from em6 previously documented assessment. Patient and/or family updated on plan of care and expected duration. Pain level reassessed. Patient is alert, oriented x 3, equal unlabored respirations, skin warm/dry/pink. 17:17 Reassessment: Patient appears in no apparent distress at this time. No changes from em6 previously documented assessment. Patient and/or family updated on plan of care and expected duration. Pain level reassessed. Patient is alert, oriented x 3, equal unlabored respirations, skin warm/dry/pink. Vital Signs: 11:02 BP 103 / 67; Pulse 106; Resp 20; Temp 98.3; Pulse Ox 100% ; Weight 50.8 kg; Height 5 em6 ft. 5 in. (165.10 cm); Pain 10/10; 12:00 BP 123 / 81; Pulse 108; Resp 20; Pulse Ox 100% on R/A; em6 13:00 BP 137 / 90; Pulse 124; Resp 20; Pulse Ox 94% on R/A; em6 13:45 BP 124 / 77; Pulse 114; Resp 18; Pulse Ox 99% on R/A; em6 14:17 Pulse 125; em6 15:15 BP 127 / 72; Pulse 120; Resp 18; Pulse Ox 98% on R/A; em6 16:15 BP 143 / 67; Pulse 124; Resp 18; Pulse Ox 100% ; em6 17:00 BP 118 / 62; Pulse 110; Resp 18; Pulse Ox 99% on R/A; em6 11:02 Body Mass Index 18.64 (50.80 kg, 165.10 cm) em6 ED Course: 10:59 Patient arrived in ED. eb 11:02 Mihir Winkler DO is Attending Physician. ms3 11:06 Triage completed. em6 11:08 Arm band placed on right wrist. em6 11:09 Patient has correct armband on for positive identification. Bed in low position. Call em6 light in reach. Side rails up X2. Pulse ox on. NIBP on. Warm blanket given. 11:44 Juanjo Schaefer, RN is Primary Nurse. jd3 11:44 Inserted saline lock: 22 gauge in left antecubital area, using aseptic technique. Blood jd3 collected. 12:44 Urine Microscopic Only Sent. em6 13:48 Pedro Beck DO is Referral Physician. ms3 17:31 No provider procedures requiring assistance completed. IV discontinued, intact, em6 bleeding controlled, No redness/swelling at site. Pressure dressing applied. Administered Medications: 11:35 Drug: Lactulose 20 grams Volume: 30 ml; Route: PO; em6 12:30 Follow up: Response: No adverse reaction em6 11:46 Drug: Lasix (furosemide) 40 mg Route: IVP; Site: left antecubital; em6 12:30 Follow up: Response: No adverse reaction em6 15:21 Drug: Albumin 25 grams Volume: 100 ml; Route: IVPB; Site: left antecubital; em6 16:30 Follow up: IV Status: Completed infusion; IV Intake: 100ml em6 Medication: 15:27 VIS not applicable for this client. em6 Intake: 16:30 IV: 100ml; Total: 100ml. em6 Outcome: 13:50 Discharge ordered by MD. ms3 17:31 Discharged to home via wheelchair. em6 17:31 Condition: stable 17:31 Discharge instructions given to patient, Instructed on discharge instructions, follow up and referral plans. Demonstrated understanding of instructions, follow-up care. 17:32 Patient left the ED. em6 Signatures: Juanjo Schaefer, MATILDA RN Ronit Baldwin Mihir Winkler DO DO ms3 Kathleen Sánchez RN RN em6 Corrections: (The following items were deleted from the chart) 14:17 14:16 Reassessment: em6 em6
--- NOTE | 2022-04-03 13:50 | EDPHYS ---
Physician Documentation [facility] Name: Divina Collazo Age: 36 yrs Sex: Female : 1985 Arrival Date: 04/03/2022 Time: 10:59 Bed 17 Private MD: ED Physician Mihir Winkler HPI: 04/03 11:11 This 36 yrs old Female presents to ER via EMS with complaints of leg edema and pain. ms3 11:11 36-year-old female with past medical history of liver cirrhosis, hypertension, ms3 diabetes, scoliosis presents via [facility] for leg pain that began last night. Patient states she was discharged from the hospital on March 31. Patient states her leg pain began overnight as she did not have her lactulose and fluid pills. Patient states her sister had to leave and had her medications. Patient states she currently has access to her medications and has not taken them today. Patient states she is having severe lower extremity pain. Patient denies alleviating or inciting factors.. 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 - Social history:: Smoking status: unknown. ROS: 11:11 Constitutional: Negative for fever, and chills. Neck: Negative for injury, pain, and ms3 swelling, Cardiovascular: Negative for chest pain, and palpitations. Respiratory: Negative for shortness of breath, cough, wheezing, and pleuritic chest pain, Abdomen/GI: Negative for abdominal pain, nausea, vomiting, diarrhea, and constipation. 11:11 MS/extremity: Positive for swelling. 11:11 All other systems are negative. Exam: 11:11 Constitutional: This is a well developed, well nourished patient who is awake, alert, ms3 and in no acute distress. Head/Face: Normocephalic, atraumatic. Neck: Trachea midline, no cervical lymphadenopathy. Supple, full range of motion without nuchal rigidity, or vertebral point tenderness. No Meningismus. Chest/axilla: Normal chest wall appearance and motion. Nontender with no deformity. Cardiovascular: Regular rate and rhythm with a normal S1 and S2. No gallops, murmurs, or rubs. Normal PMI, no JVD. No pulse deficits. Respiratory: Lungs have equal breath sounds bilaterally, clear to auscultation and percussion. No rales, rhonchi or wheezes noted. No increased work of breathing, no retractions or nasal flaring. 11:11 Skin: Warm, dry with normal turgor. Normal color with no rashes, no lesions, and no evidence of cellulitis. MS/ Extremity: Pulses equal, no cyanosis. Neurovascular intact. Full, normal range of motion. Psych: Awake, alert, with orientation to person, place and time. Behavior, mood, and affect are within normal limits. 11:11 Abdomen/GI: Inspection: distension, that is moderate, in the abdomen diffusely, Bowel sounds: normal, Palpation: nontender, in all quadrants. Vital Signs: 11:02 BP 103 / 67; Pulse 106; Resp 20; Temp 98.3; Pulse Ox 100% ; Weight 50.8 kg; Height 5 em6 ft. 5 in. (165.10 cm); Pain 10/10; 12:00 BP 123 / 81; Pulse 108; Resp 20; Pulse Ox 100% on R/A; em6 13:00 BP 137 / 90; Pulse 124; Resp 20; Pulse Ox 94% on R/A; em6 13:45 BP 124 / 77; Pulse 114; Resp 18; Pulse Ox 99% on R/A; em6 14:17 Pulse 125; em6 15:15 BP 127 / 72; Pulse 120; Resp 18; Pulse Ox 98% on R/A; em6 16:15 BP 143 / 67; Pulse 124; Resp 18; Pulse Ox 100% ; em6 17:00 BP 118 / 62; Pulse 110; Resp 18; Pulse Ox 99% on R/A; em6 11:02 Body Mass Index 18.64 (50.80 kg, 165.10 cm) em6 MDM: 11:09 Patient medically screened. ms3 11:11 Differential diagnosis: Edema vs Diabetic peripheral neuropathy vs msk pain. ms3 16:55 Data reviewed: vital signs, nurses notes, lab test result(s), and as a result, I will ms3 discharge patient. Counseling: I had a detailed discussion with the patient and/or guardian regarding: the historical points, exam findings, and any diagnostic results supporting the discharge/admit diagnosis, lab results, the need for outpatient follow up, to return to the emergency department if symptoms worsen or persist or if there are any questions or concerns that arise at home. Special discussion: I discussed with the patient/guardian in detail that at this point there is no indication for admission to the hospital. It is understood, however, that if the symptoms persist or worsen the patient needs to return immediately for re-evaluation. ED course: Discussed labs with patient. Patient states she has access to her medications at this time. Discussed strict return precautions to include worsening symptoms, or any other concerns with patient. Patient to follow-up with Dr. Beck in 1 to 2 days. Patient understands and agrees with plan. On reevaluation patient is improved, in no apparent distress, nontoxic appearing.. 04/03 11:05 Order name: CBC with Diff; Complete Time: 13:45 ms3 04/03 11:05 Order name: CMP; Complete Time: 13:45 ms3 04/03 12:39 Order name: Urine Microscopic Only; Complete Time: 13:45 iw 04/03 12:44 Order name: Urine Dipstick-Ancillary; Complete Time: 13:45 EDMS 04/03 12:45 Order name: Urine --Ancillary (enter results); Complete Time: 14:58 eb 04/03 11:05 Order name: Urine Dipstick-Ancillary (obtain specimen); Complete Time: 14:56 ms3 Administered Medications: 11:35 Drug: Lactulose 20 grams Volume: 30 ml; Route: PO; em6 12:30 Follow up: Response: No adverse reaction em6 11:46 Drug: Lasix (furosemide) 40 mg Route: IVP; Site: left antecubital; em6 12:30 Follow up: Response: No adverse reaction em6 15:21 Drug: Albumin 25 grams Volume: 100 ml; Route: IVPB; Site: left antecubital; em6 16:30 Follow up: IV Status: Completed infusion; IV Intake: 100ml em6 Disposition Summary: 04/03/22 13:50 Discharge Ordered Location: Home ms3 Condition: Stable ms3 Diagnosis - Pedal Edema ms3 - Liver Cirrhosis ms3 Followup: ms3 - With: Pedro Beck DO - When: 2 - 3 days - Reason: Re-evaluation by your physician Discharge Instructions: - Discharge Summary Sheet ms3 - Edema ms3 - Alcoholic Liver Disease, [id number] ms3 Forms: - Medication Reconciliation Form ms3 - Thank You Letter ms3 - Antibiotic Education ms3 - Prescription Opioid Use ms3 Signatures: Dispatcher [employer] EDMihir Currie DO DO ms3 Kathleen Sánchez, RN RN em6
[2022-04-03] MEDS ORDERED: ALBUMIN HUMAN 25% 50 ML IV ONE ×2 (15:22→16:26)
[2022-04-05 03:35] VITALS: TEMP 98.3
[2022-04-05 04:45] VITALS: BP 127/72; O2SAT 98
== END 2022-04-03 17:32 | disposition home or self-care (01) ==
LOC: ER 10:56
DX: R60.9 Edema, unspecified (principal); K74.60 Unspecified cirrhosis of liver; E11.9 Type 2 diabetes mellitus without complications; I10 Essential (primary) hypertension
CPT/HCPCS: 96365; 85025; 36415; 81025; 80053; 96375; 99284; J1940; P9047 ×2; 81003; 81015

== ENCOUNTER 2022-04-05 13:53 | Emergency (ER) | payer OTHER ==
--- OUTSIDE RECORDS SUMMARY | 2022-04-05 14:12 | XMS REPORT | Continuity of Care Document ---
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 [facility] 03/14/22 at 0900, Until Discontinu ed, Routine rifAXIMin Yes 550mg 550 mg, Univ ers (XIFAXAN) 03-14 Oral, BID, ity of tablet 550 01:00: First dose [place] mg 00 on [facility] 03/13/22 at Branch 2000, Until Discontinu ed, Routine
Reason for Anti-Infec tive: Empiric Therapy for Suspected Infection< br>Empiric Therapy Site: Abdominal< br>Duratio n of therapy: 5 days lactulose 0 Yes 15mL 15 mL, Univer s (CEPHULAC) 03-14 Oral, TID, ity of solution 15 01:00: First dose [place] mL 00 (after Medical last Branch modificati on) on [place] 03/13/22 at 2000, Until Discontinu ed, Routine ceFEPIme 2021- Yes 1000mg 1,000 mg, U nivers (MAXIPIME) 03-14 0905 IV ity of 1,000 mg in 01:00: 00:59 [place], [place] NaCl 0.9% 00 :00 Q8H ABX, Medica l (NS) 50 mL 21 doses, Bran ch MINI-BAG First dose on [place] 03/13/22 at 2000, Last dose on [place] 03/20/22 at 1200, Administer over 4 Hours, 50 mL
Reas on for Anti-Infec tive: Empiric Therapy for Suspected Infection< br>Empiric Therapy Site: Respirator y
Durat ion of therapy: 5 days oxazepam Yes 15mg 15 mg, Univers (SERAX) 03-13 Oral, ity of capsule 15 22:32: Q4HPRN, [place] mg 41 Starting Medical on [facility] 03/13/22 at 1732, Until Discontinu ed, Routine, Anxiety, Only while awake for DBP equal to or greater than 100, HR equal to or greater than 100. Sliding Yes Subcutaneo Univ ers Scale 03-13 us, TID ity of Insulin - 17:00: MEALS+HS, [place] Lispro 00 First dose Medical (HumaLOG) + on [facility] 03/13/22 at Testing 1200, Until Discontinu ed, Routine ceFEPIme 2021- No 1000mg 1,000 mg, U nivers (MAXIPIME) 03-13 IV ity of 1,000 mg in 16:00: 18:03 [place], [place] NaCl 0.9% 00 :00 ONCE, 1 Medical (NS) 50 mL dose, On Bran h MINI-BAG [place] 03/13/22 at 1100, Administer over 30 Minutes, 50 mL
Reas on for Anti-Infec tive: Empiric Therapy for Suspected Infection< br>Empiric Therapy Site: Respirator y
Durat ion of therapy: 72 hours spironolact Yes 50mg 50 mg, Univ ers one 03-13 Oral, BID, ity of (ALDACTONE) 15:15: First dose [place] tablet 50 00 on [place] Medical mg 03/13/22 at Branch 1015, Until Discontinu ed, Routine fluconazole 2021- Yes 200mg 200 mg, U nivers (DIFLUCAN) 03-13 0902 Oral, ity of tablet 200 15:15: 13:59 DAILY, 5 [place] mg 00 :00 doses, Medical First dose Branch on [place] 03/13/22 at 1015, Last dose on [place] 03/17/22 at 0900, AUSTEN
Re ason for Anti-Infec tive: Documented Infection< br>Documen afshin Infection Site: Respirator y
Durat ion of Therapy: 7 days glucagon Yes 1mg 1 mg, Univers (GLUCAGEN 03-13 Intramuscu ity of DIAGNOSTIC 15:06: [place], PRN, [place] KIT) 44 Starting Medical injection 1 on [facility] mg 03/13/22 at 1006, Until Discontinu ed, [place]EN, Blood Glucose < or = 70 mg/dL and patient is unable to swallow or has mental changes. dextrose 50 Yes 25mL 25 mL, Univ ers % in water 03-13 Slow IV ity of (D50W) 15:06: Push, PRN, [place] injection 44 Starting Medica l 25 mL on [facility] 03/13/22 at 1006, Until Discontinu ed, [place]EN, Blood Glucose < or = 70 mg/dL and patient is unable to swallow or has mental status changes. KCL 2021- No 40meq 40 mEq, Univers (KLOR-CON 03-13 Oral, ity of M20) tablet 15:00: 17:27 ONCE, 1 [place] 40 mEq 00 :00 dose, On Medical [facility] 03/13/22 at 1000, Routine docusate Yes 100mg 100 mg, Unive rs (COLACE) 03-13 Oral, ity of capsule 100 14:00: DAILY, [place] mg 00 First dose Medical on [facility] 03/13/22 at 0900, Until Discontinu ed, Routine enoxaparin Yes 40mg 40 mg, Unive rs (LOVENOX) 03-13 Subcutaneo ity of injection 14:00: us, DAILY, [place] 40 mg 00 First dose Medical on [facility] 03/13/22 at 0900, Until Discontinu ed, Routine SERTraline Yes 50mg 50 mg, Unive rs (ZOLOFT) 03-13 Oral, ity of tablet 50 14:00: DAILY, [place] mg 00 First dose Medical on [facility] 03/13/22 at 0900, Until Discontinu ed, Routine lactulose No 15mL 15 mL, Unive rs (CEPHULAC) 03-13 Oral, ity of solution 15 14:00: 22:33 DAILY, [place] mL 00 :27 First dose Medical on [facility] 03/13/22 at 0900, Until Discontinu ed, Routine foLIC acid No 1mg 1 mg, Unive rs (FOLATE) 03-13 Oral, ity of tablet 1 mg 14:00: 22:42 DAILY, [place] 00 :06 First dose Medical on [facility] 03/13/22 at 0900, Until Discontinu ed, Routine furosemide No 20mg 20 mg, Univ ers (LASIX) 03-13 Slow IV ity of injection 13:00: 15:05 Push, [place] 20 mg 00 :33 Q12H, Medical First dose Branch on [place] 03/13/22 at 0800, Until Discontinu ed, Routine nicotine Yes 1{patch 1 Patch, Un frida (NICODERM) 03-13 } Topical, ity o f 21 mg/24 hr 12:30: Administer [place] patch 1 00 over 24 Medical Patch Hours, Branch Q24H, First dose on [place] 03/13/22 at 0730, Until Discontinu ed, Routine piperacilli 2021- No 3.375g 3.375 g, Univers n-tazobacta 03-13 IV ity of m (ZOSYN) 12:00: 15:09 Piggyback, [place] 3.375 g in 00 :15 Q8H ABX, 5 Med ical NaCl 0.9% doses, Branch (NS) 50 mL First dose MINI-BAG on [place] 03/13/22 at 0700, Last dose on [facility] 03/14/22 at 1500, Administer over 30 Minutes, 50 mL
Reas on for Anti-Infec tive: Empiric Therapy for Suspected Infection< br>Empiric Therapy Site: Abdominal< br>Duratio n of therapy: 5 days ondansetron Yes 4mg 4 mg, Slow Univers (ZOFRAN 03-13 IV Push, ity of (PF)) 07:18: Q6HPRN, [place] injection 4 46 Starting Medi george mg on [facility] 03/13/22 at 0218, Until Discontinu ed, Routine, Nausea and Vomiting (N/V) acetaminoph Yes 650mg 650 mg, Un frida en 03-13 Oral, ity of (TYLENOL) 07:18: Q6HPRN, [place] tablet 650 08 Starting Medic al mg on [facility] 03/13/22 at 0218, Until Discontinu ed, Routine, Pain (scale 1-3) morpHINE (2 Yes 2mg 2 mg, Slow Univers mg/mL) 03-13 IV Push, ity of injection 2 06:59: Q4HPRN, [place] mg 14 Starting Medical on [facility] 03/13/22 at 0159, Until Discontinu ed, Routine, Pain (scale 7-10) oxyCODONE 2021- No 5mg 5 mg, Univer s immediate 03-13 Oral, ity of release 06:58: 12:25 Q4HPRN, [place] tablet 5 mg 36 :23 Starting Medi george on [facility] 03/13/22 at 0158, Until [place] 03/13/22 at 0725, Routine, Pain (scale 4-6)
Fa culty member approving Restricted medication : OFELIA SALDAÑA KCL 2021- No 40meq 40 mEq, Univers (KLOR-CON 03-13 Oral, ity of M20) tablet 05:15: 05:14 ONCE, 1 [place] 40 mEq 00 :00 dose, On Medical [facility] 03/13/22 at 0015, AUSTEN Vancomycin 2021- No 750mg 750 mg, IV Univers 750 mg in 03-13 Piggyback, ity of NaCl 0.9% 04:30: 06:30 ONCE, 1 [place] (NS) 250 mL 00 :00 dose, On Medi george VIAL-MATE Sat Branch 03/12/22 at 2330, Administer over 60 Minutes, [...] Take 1 [facility] 8-11 06-24 [facility] tablet 00:00: 23:59 (100 mg Medical 00 :00 total) by Center mouth daily for 90 days. thiamine 2021-0 2021- Yes 100mg QD Take 1 [facility] MG 8-26 11-24 tablet [facility] tablet 00:00: 23:59 (100 mg Medical 00 :00 total) by Center mouth daily for 90 days. thiamine 2021-0 2021- Yes 100mg QD Take 1 [facility] MG 8-26 11-24 tablet [facility] tablet 00:00: 23:59 (100 mg Medical 00 :00 total) by Center mouth daily for 90 days. thiamine 2021-0 2021- Yes 100mg QD Take 1 [facility] MG 8- 11-24 tablet [facility] tablet 00:00: 23:59 (100 mg Medical 00 :00 total) by Center mouth daily for 90 days. fluconazole 2021-0 2022- No 200mg QD Take [address] (DIFLUCAN) 03-11 tablet [facility] 200 MG 00:00: 23:59 (200 mg Medical tablet 00 :00 total) by Center mouth daily for 7 days. fluconazole 2021-0 2022- No 200mg QD Take [address] (DIFLUCAN) 03-11 tablet [facility] 200 MG 00:00: 23:59 (200 mg Medical tablet 00 :00 total) by Center mouth daily for 7 days. fluconazole 2021-0 2022- No 200mg QD Take [address] (DIFLUCAN) 03-11 tablet [facility] 200 MG 00:00: 23:59 (200 mg Medical tablet 00 :00 total) by Center mouth daily for 7 days. fluconazole 2021-0 2022- No 200mg QD Take [address] (DIFLUCAN) 03-11 tablet [facility] 200 MG 00:00: 23:59 (200 mg Medical tablet 00 :00 total) by Center mouth daily for 7 days. ergocalcife 2022-0 Yes [id number] Q7D Take [address] rol 8-25 capsule [facility] (ERGOCALCIF 00:00: (50,000 Med ical LUIS) 1,250 00 Units Center mcg (50,000 total) by unit) mouth once capsule a week. ergocalcife 2022-0 Yes [id number] Q7D Take [address] rol 8-25 capsule [facility] (ERGOCALCIF 00:00: (50,000 Med ical LUIS) 1,250 00 Units Center mcg (50,000 total) by unit) mouth once capsule a week. ergocalcife 2022-0 Yes [id number] Q7D Take [address] rol 8-25 capsule [facility] (ERGOCALCIF 00:00: (50,000 Med ical LUIS) 1,250 00 Units Center mcg (50,000 total) by unit) mouth once capsule a week. ergocalcife 2022-0 Yes [id number] Q7D Take [address] rol 8-25 capsule [facility] (ERGOCALCIF 00:00: (50,000 Med ical LUIS) 1,250 00 Units Center mcg (50,000 total) by unit) mouth once capsule a week. folic 2021- Yes 1{tbl} QD Take [address] [facility] [facility] acid-multiv 8-25 11-23 tablet by Rosa schwartzs itamins 00:00: 23:59 mouth Medical (NEPHRO-VIT 00 :[address]) 0.8 mg 90 days. Tab tablet folic 2021- Yes 1{tbl} QD Take [address] acid-multiv 8-25 11-23 tablet by [place] itamins 00:00: 23:59 mouth Medical (NEPHRO-VIT 00 :[address] [facility]) 0.8 mg 90 days. Tab tablet folic 2021- Yes 1{tbl} QD Take [address] acid-multiv 8-25 11-23 tablet by [place] itamins 00:00: 23:59 mouth Medical (NEPHRO-VIT 00 :[address] E) 0.8 mg 90 days. Tab tablet folic 2021- Yes 1{tbl} QD Take [address] acid-multiv 8-25 11-23 tablet by [place] itamins 00:00: 23:59 [...] (two) times daily for 60 days. pantoprazol 2021-2021- Yes 40mg QD Take [address] [facility] [facility] [...] 20g Q.5D Take [address] [facility] (CHRONULAC) 8- 09-24 mLs (20 g Rosa kes 20 gram/30 00:00: 23:59 total) by M edical mL solution 00 :00 mouth 2 Cente r (two) times daily for 30 days. potassium 2021- Yes 10meq QD Take [address] [facility] chloride SA 8-10 04-24 tablet (10 [facility] (K-DUR,KLOR 00:00: 23:59 mEq total) Medical -CON-M) 10 00 :00 by mouth Cente r MEQ tablet daily for 30 days. lactulose 2021- Yes 20g Q.5D Take [address] (CHRONULAC) 8-25 09-24 mLs (20 g Rosa kes 20 gram/30 00:00: 23:59 total) by M edical mL solution 00 :00 mouth 2 Cente r (two) times daily for 30 days. potassium 2021- Yes 10meq QD Take [address] chloride SA 8-25 09- tablet (10 [facility] (K-DUR,KLOR 00:00: 23:59 mEq total) Medical -CON-M) 10 00 :00 by mouth Cente r MEQ tablet daily for 30 days. lactulose 2021-0 2022- Yes 20g Q.5D Take [address] [...] MEQ tablet daily for 30 days. omeprazole 2021-0 Yes 40mg Take 40 mg U nivers 40 mg 7-26 by mouth ity of capsule 15:44: in the [place] [address] morning. Medical Branch midodrine 5 2021-0 Yes 5mg Take 5 mg U nivers mg tablet 7-26 by mouth ity of 15:44: in the [place] 12 morning Medical and 5 mg Branch at noon and 5 mg in the evening. lactulose 2021-0 Yes 15mL Take 15 mL Un frida 10 gram/15 7-26 by mouth ity o f mL solution 15:44: in the [facility] 12 morning. Medical Branch ARIPiprazol 2021-0 Yes 10mg Take 10 mg Univers e (ABILIFY) 7-26 by mouth ity of 10 mg 15:44: in the [facility] 12 morning. Medical Branch traZODone 0 Yes 50mg Take 50 mg Un frida 50 mg 7-26 by mouth ity of tablet 15:44: at [place] [address] bedtime. Medical Branch sulfamethox 0 Yes 1{tbl} Take 1 Un frida azole-trime 7-26 tablet by ity of thoprim 15:44: mouth in [place] 800-160 mg 12 the Medical per tablet morning Branch and 1 tablet in the evening. buprenorphi 2021-[address] 8 mg Univers ne-naloxone 7-26 under the ity of 8-2 mg 15:44: tongue. [place] sublingual Medical film Branch omeprazole 0 Yes 40mg Take 40 mg U nivers 40 mg 7-26 by mouth ity of capsule 15:44: in the [place] [address] morning. Medical Branch midodrine 5 2021-0 Yes 5mg Take 5 mg U nivers mg tablet 7-26 by mouth ity of 15:44: in the [place] [address] morning Medical and 5 mg Branch at noon and 5 mg in the evening. lactulose 0 Yes 15mL Take 15 mL Un frida 10 gram/15 7-26 by mouth ity o f mL solution 15:44: in the [facility] 12 morning. Medical Branch ARIPiprazol 2021-0 Yes 10mg Take 10 mg Univers e (ABILIFY) 7-26 by mouth ity of 10 mg 15:44: in the [facility] 12 morning. Medical Branch traZODone 2021-0 Yes 50mg Take 50 mg Un frida 50 mg 7-26 by mouth ity of tablet 15:44: at [place] [address] bedtime. Medical Branch sulfamethox 0 Yes 1{tbl} Take 1 Un frida azole-trime 7-26 tablet by ity of thoprim 15:44: mouth in [place] 800-160 mg 12 the Medical per tablet morning Branch and 1 tablet in the evening. buprenorphi 2021-[address] 8 mg Univers ne-naloxone 7-26 under the ity of 8-2 mg 15:44: tongue. [place] sublingual Medical film Branch omeprazole 2021-0 Yes 40mg Take 40 mg U nivers 40 mg 7-26 by mouth ity of capsule 15:44: in the [place] [address] morning. Medical Branch midodrine 5 2021-0 Yes 5mg Take 5 mg U nivers mg tablet 7-26 by mouth ity of 15:44: in the [place] [address] morning Medical and 5 mg Branch at noon and 5 mg in the evening. lactulose 2021-0 Yes 15mL Take 15 mL Un frida 10 gram/15 7-26 by mouth ity o f mL solution 15:44: in the [facility] 12 morning. Medical Branch ARIPiprazol 2021-0 Yes 10mg Take 10 mg Univers e (ABILIFY) 7-26 by mouth ity of 10 mg 15:44: in the [place] [address] morning. Medical Branch traZODone 2021-0 Yes 50mg Take 50 mg Un frida 50 mg 7-26 by mouth ity of tablet 15:44: at [place] [address] bedtime. Medical Branch sulfamethox 2021-0 Yes 1{tbl} Take 1 Un frida azole-trime 7-26 tablet by ity of thoprim 15:44: mouth in [place] 800-160 mg 12 the Medical per tablet morning Branch and 1 tablet in the evening. buprenorphi [address] 8 mg Univers ne-naloxone 7-26 under the ity of 8-2 mg 15:44: tongue. [place] sublingual Medical film Branch omeprazole 2021-0 Yes 40mg Take 40 mg U nivers 40 mg 7-26 by mouth ity of capsule 15:44: in the [place] [address] morning. Medical Branch midodrine 5 2021-0 Yes 5mg Take 5 mg U nivers mg tablet 7-26 by mouth ity of 15:44: in the [place] [address] morning Medical and 5 mg Branch at noon and 5 mg in the evening. lactulose 2021-0 Yes 15mL Take 15 mL Un frida 10 gram/15 7-26 by mouth ity o f mL solution 15:44: in the [facility] 12 morning. Medical Branch ARIPiprazol 2021-0 Yes 10mg Take 10 mg Univers e (ABILIFY) 7-26 by mouth ity of 10 mg 15:44: in the [facility] 12 morning. Medical Branch traZODone 2021-0 Yes 50mg Take 50 mg Un frida 50 mg 7-26 by mouth ity of tablet 15:44: at [place] 12 bedtime. Medical Branch sulfamethox 0 Yes 1{tbl} Take 1 Un frida azole-trime 7-26 tablet by ity of thoprim 15:44: mouth in [place] 800-160 mg 12 the Medical per tablet morning Branch and 1 tablet in the evening. buprenorphi [address] 8 mg Univers ne-naloxone 7-26 under the ity of 8-2 mg 15:44: tongue. [place] sublingual 12 Medical film Branch SERTraline 0 Yes [id number] 50mg Take 1 U nivers (ZOLOFT) 50 7-26 tablet by ity of mg tablet 00:00: mouth [place] 00 the Medical morning. Branch SERTraline 0 Yes [id number] 50mg Take 1 U nivers (ZOLOFT) 50 7-26 tablet by ity of mg tablet 00:00: mouth [place] 00 the Medical morning. Branch SERTraline 0 Yes [id number] 50mg Take 1 U nivers (ZOLOFT) 50 7-26 tablet by ity of mg tablet 00:00: mouth [place] 00 the Medical morning. Branch SERTraline 0 Yes [id number] 50mg Take 1 U nivers (ZOLOFT) 50 7-26 tablet by ity of mg tablet 00:00: mouth in [place] 00 the Medical morning. Branch SERTraline 0 Yes [id number] 50mg Take 1 U nivers (ZOLOFT) 50 7-26 tablet by ity of mg tablet 00:00: mouth [place] 00 the Medical morning. Branch SERTraline 0 Yes [id number] 50mg Take 1 U nivers (ZOLOFT) 50 7-26 tablet by ity of mg tablet 00:00: mouth [place] 00 the Medical morning. Branch SERTraline 0 Yes [id number] 50mg Take 1 U nivers (ZOLOFT) 50 7-26 tablet by ity of mg tablet 00:00: mouth [place] 00 the Medical morning. Branch SERTraline 0 2021- No [id number] 50mg Take 1 Univers (ZOLOFT) 50 7-26 09-09 tablet by it y of mg tablet 00:00: 00:00 mouth in [place] 00 :00 the Medical morning. Branch cefdinir 2021- No [id number] 300mg Take 1 U nivers 300 mg 01-21 capsule by ity of capsule 00:00: 00:00 mouth 2 [place] 00 :00 (two) Medical times Branch daily. ondansetron [id number] 4mg Take 1 Univers 4 mg 01-21 tablet by ity of disintegrat 00:00: 00:00 mouth [place] ing tablet 00 :00 every 4 Medica l (four) Branch hours as needed for Nausea and Vomiting (N/V). chlordiazeP 2021- No Alcohol Take 2 [place] OXIDE 6-25 -29 dependence capsules [facility] (LIBRIUM) 00:00: 23:59 [...] No Alcohol Take 2 [place] OXIDE -25 -29 dependence capsules [facility] (LIBRIUM) 00:00: 23:59 [...] nightly for 1 day. foLIC acid Yes [id number] 1mg Take 1 Univers 1 mg tablet 4-21 tablet by ity of 00:00: mouth daily. Medical Branch foLIC acid Yes [id number] 1mg Take 1 Univers 1 mg tablet 4-21 tablet by ity of 00:00: mouth [place] 00 daily. Medical [place] foLIC acid Yes [id number] 1mg Take 1 Univers 1 mg tablet 4-21 tablet by ity of 00:00: mouth [place] 00 daily. [facility] foLIC acid Yes [id number] 1mg Take 1 Univers 1 mg tablet 4-21 tablet by ity of 00:00: mouth [place] 00 daily. [facility] foLIC acid Yes [id number] 1mg Take 1 Univers 1 mg tablet 4-21 tablet by ity of 00:00: mouth [place] 00 daily. [facility] foLIC acid Yes [id number] 1mg Take 1 Univers 1 mg tablet 4-21 tablet by ity of 00:00: mouth [place] 00 daily. [facility] foLIC acid Yes [id number] 1mg Take 1 Univers 1 mg tablet 4-21 tablet by ity of 00:00: mouth [place] 00 daily. [facility] foLIC acid 2021- No [id number] 1mg Take 1 Univers 1 mg tablet 4-21 - tablet by it y of 00:00: 00:00 mouth [place] 00 :00 daily. [facility] Branch thiamine 2021- No [id number] 100mg Take 1 Univers 100 mg -03 02- tablet by ity of tablet 00:00: 00:00 mouth [place] 00 :00 daily. [facility] Branch varenicline 2021- No [id number] Take one Univers (CHANTIX -02 02- 0.5mg tab ity o f STARTING 00:00: 00:00 by [place] MONTH BOX) 00 :00 once daily Med ical 0.5 mg for 3 Branch (11)- 1 mg days, then (42) tablet one 0.5mg tab twice daily for 4 days, then one 1mg tab twice daily. varenicline 2021- No [id number] 1mg Take 1 Univers (CHANTIX 4-20 - tablet by ity o f CONTINUING 00:00: 00:00 mouth 2 [place] MONTH BOX) 00 :00 (two) Medical 1 mg tablet times Branch daily. iopamidol 2020- No [id number] 100mL 100 mL, Univers (ISOVUE 5-07 05-07 Intravenou ity o f 370-500 mL) 09:48: 10:00 s, ONCE, 1 [place] injection 00 :00 dose, Fri Medic al 100 mL 11/20/20 at Branch 0500, Routine ferrous 2020- Yes Acute on 325mg Take 1 Uni vers sulfate 5-07 chronic tablet by ity of (IRON) 325 00:00: anemia mouth 3 [place] mg (65 mg 00 (three) Medical iron) times [place] tablet daily with meals. Chlordiazep 0 No 50 mg, 2 Me moria oxide 3-03 cap, l 22:00: Route: PO, Drug form: CAP, Q24H, Dosing Weight 50, kg, Start date: 09/16/20 16:00:00 ROOM SERVICE [facility]LLH[facility], Duration: 24 hr, Stop date: 09/16/20 16:00:00 ROOM SERVICE [facility]LL[facility], 0 Chlordiazep 2020-0 No 50 mg, 2 Me moria oxide 3-03 cap, l 22:00: Route: PO, Drug form: CAP, Q24H, Dosing Weight 50, kg, Start date: 09/16/20 16:00:00 ROOM SERVICE [facility], Duration: 24 hr, Stop date: 09/16/20 16:00:00 ROOM SERVICE [facility], 0 Chlordiazep 2020-0 No 50 mg, 2 Me moria oxide 3-03 cap, l 03:00: Route: PO, Drug form: CAP, Q12H, Dosing Weight 50, kg, Start date: 09/15/20 21:00:00 ROOM SERVICE [facility], Duration: 24 hr, Stop date: 09/16/20 9:00:00 ROOM SERVICE [facility], 0 Chlordiazep 2020-0 No 50 mg, 2 Me moria oxide 3-03 cap, l 03:00: Route: PO, Drug form: CAP, Q12H, Dosing Weight 50, kg, Start date: 09/15/20 21:00:00 ROOM SERVICE [facility], Duration: 24 hr, Stop date: 09/16/20 9:00:00 ROOM SERVICE [facility], 0 remove 2020-0 No Notes: Memoria patch 3-02 Remove old l 15:00: patch before applicatio n of new patch. WASTE: F/P - P Waste Black; E - P Waste Black remove No Notes: Memoria patch 3- Remove old l 15:00: patch before applicatio n of new patch. WASTE: F/P - P Waste Black; E - P Waste Black Chlordiazep No 50 mg, 2 Me moria oxide 3- cap, l 22:00: Route: PO, [place] 00 Drug form: CAP, Q8H, Dosing Weight 50, kg, Start date: 09/14/20 16:00:00 ROOM SERVICE [facility]LLHOP, Duration: 24 hr, Stop date: 09/15/20 8:00:00 ROOM SERVICE [facility]LLH[facility], 0 Chlordiazep No 50 mg, 2 Me moria oxide - cap, l 22:00: Route: PO, Drug form: CAP, Q8H, Dosing Weight 50, kg, Start date: 09/14/20 16:00:00 ROOM SERVICE [facility]LLH[facility], Duration: 24 hr, Stop date: 09/15/20 8:00:00 ROOM SERVICE [facility]LLH[facility], 0 Folic Acid No Notes: Memor ia 3- (Same as: l 15:00: Folvite) multivitami No 1 tab, Theo makayla n 3- Route: PO, l 15:00: Dosing Weight 50, kg, Daily, Start date: 09/14/20 9:00:00 ROOM SERVICE [facility]LLH[facility], Duration: 5 day, Stop date: 09/18/20 9:00:00 ROOM SERVICE [facility]LL[facility] Thiamine No Notes: Memoria 3- (Same As: l 15:00: Vitamin B1) multivitami No Notes: Theo makayla n with 3- (Same l minerals 15:00: as:Thera-M Her [place] 00 , Theragran- M) WASTE: F/P - Black; E - Municipal Trash Bin Give with food. Folic Acid No Notes: Memor ia 3-01 (Same as: l 15:00: Folvite) [place] 00 multivitami No 1 tab, Theo makayla n 3- Route: PO, l 15:00: Dosing Weight 50, kg, Daily, Start date: 09/14/20 9:00:00 ROOM SERVICE [facility]LLHOP, Duration: 5 day, Stop date: 09/18/20 9:00:00 ROOM SERVICE [facility]LLH[facility] Thiamine No Notes: Memoria 3- (Same As: l 15:00: Vitamin [place] B1) multivitami No Notes: Thoe makayla n with 3- (Same l minerals 15:00: as:Thera-M [place] 00 , Theragran- M) WASTE: F/P - Black; E - Municipal Trash Bin Give with food. Nicotine No Notes: Memoria 3- (Same as: l 14:27: Habitrol) [place] 00 "Remove old patch before applicatio n of new patch" WASTE: F/P - P Waste Black; E - P Waste Black Nicotine No Notes: Memoria 3- (Same as: l 14:27: Habitrol) [place] 00 [...] oxide 3 cap, l 00:00: Route: PO, [place] Drug form: CAP, Q6H, Dosing Weight 50, kg, Start date: 09/13/20 18:00:00 ROOM SERVICE [facility]LLH[facility], Duration: 24 hr, Stop date: 09/14/20 12:00:00 ROOM SERVICE [facility]LLH[facility], 0 Chlordiazep No 50 mg, 2 Me moria oxide 3-01 cap, l 00:00: Route: PO, Drug form: CAP, Q6H, Dosing Weight 50, kg, Start date: 09/13/20 18:00:00 ROOM SERVICE [facility]LLH[facility], Duration: 24 hr, Stop date: 09/14/20 12:00:00 ROOM SERVICE [facility]LL[facility], 0 cefepime No Notes: Memoria - (Same As: [...] Total Volume: 1,000, Start date: 09/13/20 15:32:00 ROOM SERVICE [facility]LLHOP, 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, Stop date: 10/13/20 15:31:00 [...] Total Volume: 1,000, Start date: 09/13/20 15:32:00 ROOM SERVICE [facility]LL[facility], 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, Stop date: 10/13/20 15:31:00 CDT, 1.53, m2, 0 Ondansetron No Notes: Theo makayla 2-28 (Same as: l 21:32: Zofran) [place] 00 MEDICATION WASTE Product Size: 4 mg Product Wasted: ___ mg Hydromorpho No Notes: Theo makayla ne - Same as: l 21:32: Dilaudid [place] 00 Ceftriaxone No Notes: Theo makayla 2-28 (Same As: l 21:18: Rocephin). [place] 00 Use with 100 mL NS and infuse over 30 min MEDICATION WASTE Product Size: 1000 mg Product Wasted: ___ mg Ceftriaxone No Notes: Theo makayla 2-28 (Same As: l 21:18: Rocephin). [place] 00 Use with 100 mL NS and infuse over 30 min MEDICATION WASTE Product Size: 1000 mg Product Wasted: ___ mg Saline No Notes: Memoria Flush 0.9% 09-13 (Same as: l 18:46: BD Peewee 00 Posiflush) Sodium No 1,000 mL, Memori a Chloride -28 1000 l 0.9% 18:46: ml/hr, [place] (Bolus) IV 00 Infuse Over: 1 hr, Route: IV, 1,000, Drug form: INJ, ONCE, Priority: STAT, Dosing Weight 50 kg, Start date: 09/13/20 12:46:00 ROOM SERVICE BELLHOP, Stop date: 09/13/20 12:46:00 ROOM SERVICE BELLHOP, 0 Morphine No Notes: Memoria 2-28 (Same l 18:46: as:MORPhin Peewee 00 e Sulfate) Ondansetron No Notes: Theo makayla 2-28 (Same as: l 18:46: Zofran) Peewee 00 MEDICATION WASTE Product Size: 4 mg Product Wasted: ___ mg Saline No Notes: Memoria Flush 0.9% 28 (Same as: l 18:46: BD Peewee 00 Posiflush) Sodium No 1,000 mL, Memori a Chloride - 1000 l 0.9% 18:46: ml/hr, [place] (Bolus) IV 00 Infuse Over: 1 hr, Route: IV, 1,000, Drug form: INJ, ONCE, Priority: STAT, Dosing Weight 50 kg, Start date: 09/13/20 12:46:00 ROOM SERVICE BELLHOP, Stop date: 09/13/20 12:46:00 ROOM SERVICE BELLHOP, 0 Morphine No Notes: Memoria 2- (Same l 18:46: as:MORPhin e Sulfate) Ondansetron No Notes: Theo makayla - (Same as: l 18:46: Zofran) MEDICATION WASTE Product Size: 4 mg Product Wasted: ___ mg ondansetron 2019-07 Yes Opioid 4mg Take 1 Un frida 4 mg 1-06 withdrawal tablet by ity of disintegrat 00:00: mouth [place] ing tablet 00 every 8 Medica l (eight) Branch hours as needed for Nausea and Vomiting (N/V). Motrin 600 0 Yes 600 mg = 1 M emoria [...] Memoria 7-13 (Same as: l 22:22: Motrin) "Do Not Crush" Take with food. Motrin [...] Immunizations Ordered Filled Immunization Date Status Comments [facility] e Immunization Name Name Hepatitis B Adult 2022-03-[address] [facility] 00:00:00 [facility] Hepatitis B Adult 2022-03-[address] [facility] 00[facility]00:00 [facility] Hepatitis B Adult 2022-03-[address] [facility] 00:00:00 [facility] Hepatitis B Adult 2022-03-[address] [facility] 00:00:00 [facility] SARS-COV-2 COVID-19 2021-06-04 Completed Unive rsity of PFIZER VACCINE 00:00:00 [facility] SARS-COV-2 COVID-19 2021-06-04 Completed Unive rsity of PFIZER VACCINE 00:00:00 [facility] SARS-COV-2 COVID-19 2021-06-04 Completed Unive rsity of PFIZER VACCINE 00:00:00 [facility] SARS-COV-2 COVID-19 2021-06-04 Completed Unive rsity of PFIZER VACCINE 00:00:00 [facility] SARS-COV-2 COVID-19 2021-06-04 Completed Unive rsity of PFIZER VACCINE 00:00:00 [facility] SARS-COV-2 COVID-19 2021-06-04 Completed Unive rsity of PFIZER VACCINE 00:00:00 [facility] SARS-COV-2 COVID-19 2021-06-04 Completed Unive rsity of PFIZER VACCINE 00:00:00 [facility] SARS-COV-2 COVID-19 2021-06-04 Completed Unive rsity of PFIZER VACCINE 00:00:00 [facility] SARS-COV-2 COVID-19 2021-06-04 Completed Unive rsity of PFIZER VACCINE 00:00:00 [facility] SARS-COV-2 COVID-19 2021-06-04 Completed Unive rsity of PFIZER VACCINE 00:00:00 [facility] SARS-COV-2 COVID-19 2021-06-04 Completed Unive rsity of PFIZER VACCINE 00:00:00 [facility] SARS-COV-2 COVID-19 2021-04-30 Completed Unive rsity of PFIZER VACCINE 00:00:00 [facility] SARS-COV-2 COVID-19 2021-04-30 Completed Unive rsity of PFIZER VACCINE 00:00:00 [facility] SARS-COV-2 COVID-19 2021-04-30 Completed Unive rsity of PFIZER VACCINE 00:00:00 [facility] SARS-COV-2 COVID-19 2021-04-30 Completed Unive rsity of PFIZER VACCINE 00:00:00 [facility] SARS-COV-2 COVID-19 2021-04-30 Completed Unive rsity of PFIZER VACCINE 00:00:00 [facility] SARS-COV-2 COVID-19 2021-04-30 Completed Unive rsity of PFIZER VACCINE 00:00:00 [facility] SARS-COV-2 COVID-19 2021-04-30 Completed Unive rsity of PFIZER VACCINE 00:00:00 [facility] SARS-COV-2 COVID-19 2021-04-30 Completed Unive rsity of PFIZER VACCINE 00:00:00 [facility] SARS-COV-2 COVID-19 2021-04-30 Completed Unive rsity of PFIZER VACCINE 00:00:00 [facility] SARS-COV-2 COVID-19 2021-04-30 Completed Unive rsity of PFIZER VACCINE 00:00:00 [facility] SARS-COV-2 COVID-19 2021-04-30 Completed Unive rsity of PFIZER VACCINE 00:00:00 [facility] Vital Signs Vital Name Observation Time Observation Value Comments Source Heart rate 2022-04-05 110 /min University 05:15:00 [facility] [place] Oxygen saturation 2022-04-05 100 /min [place] of in Arterial blood 05:15:00 [facility] by Pulse oximetry [place] Systolic blood 2022-04-05 105 mm[Hg] University of pressure 05:00:00 [facility] [place] Diastolic blood 2022-04-05 61 mm[Hg] University o f pressure 05:00:00 [facility] [place] Respiratory rate 2022-04-05 20 /min [facility] 05:00:00 [facility] [place] Body temperature 2022-04-05 37.56 Yas [place] of 02:13:00 [facility] [place] Body height 2022-04-05 165.1 cm [facility] 02:13:00 [facility] [place] Body weight 2022-04-05 48.988 kg [place] of 02:13:00 [facility] [place] BMI 2022-04-05 17.97 kg/m2 University of 02:13:00 [facility] [place] Systolic blood 2022-03-28 103 mm[Hg] University of pressure 18:32:00 [facility] [place] Diastolic blood 2022-03-28 56 mm[Hg] University o f pressure 18:32:00 [facility] [place] Heart rate 2022-03-28 113 /min University of 18:32:00 [facility] [place] Respiratory rate 2022-03-28 16 /min University of 18:32:00 [facility] [place] Oxygen saturation 2022-03-28 99 /min [facility] in Arterial blood 18:32:00 [facility] by Pulse oximetry [place] Body temperature 2022-03-28 36.61 Yas University of 16:40:00 [facility] [place] Body height 2022-03-28 165.1 cm University of 16:40:00 [facility] [place] Body weight 2022-03-28 50.803 kg University of 16:40:00 [facility] [place] BMI 2022-03-28 18.64 kg/m2 University of 16:40:00 [facility] [place] Systolic blood 2022-03-25 128 mm[Hg] University of pressure 15:32:00 [facility] [place] Diastolic blood 2022-03-25 77 mm[Hg] University o f pressure 15:32:00 [facility] [place] Heart rate 2022-03-25 105 /min University of 15:32:00 [facility] [place] Body temperature 2022-03-25 37 Yas University of 15:32:00 [facility] [place] Respiratory rate 2022-03-25 20 /min University of 15:32:00 [facility] [place] Oxygen saturation 2022-03-25 95 /min University of in Arterial blood 15:32:00 [facility] george by Pulse oximetry Branch Body weight 2022-03-22 51.8 kg University of 01:26:00 [facility] [place] BMI 2022-03-22 19.00 kg/m2 University of 01:26:00 [facility] [place] Body height 2022-03-21 165.1 cm [facility] 10:12:00 [facility] [place] Systolic blood 2022-03-16 121 mm[Hg] University of pressure 16:54:00 [facility] [place] Diastolic blood 2022-03-16 69 mm[Hg] University o f pressure 16:54:00 [facility] [place] Heart rate 2022-03-16 97 /min University of 16:54:00 [facility] [place] Body temperature 2022-03-16 36.33 Yas University of 16:54:00 [facility] [place] Respiratory rate 2022-03-16 18 /min University of 16:54:00 [facility] [place] Oxygen saturation 2022-03-16 99 /min University of in Arterial blood 16:54:00 [facility] by Pulse oximetry Branch Body weight 2022-03-16 49.986 kg University of 08:58:00 [facility] [place] BMI 2022-03-16 18.34 kg/m2 University of 08:58:00 [facility] [place] Body height 2022-03-13 165.1 cm University of 07:30:00 [facility] [place] HEIGHT 2022-03-11 165.1 cm 17:49:00 WEIGHT 2022-03-11 [...] 2022-02-08 114 mm[Hg] University of pressure 20:45:00 [facility] [place] Diastolic blood 2022-02-08 71 mm[Hg] University o f pressure 20:45:00 [facility] [place] Heart rate 2022-02-08 115 /min [facility] 20:45:00 [facility] [place] Body temperature 2022-02-08 37.22 Yas [facility] 20:45:00 [facility] [place] Body height 2022-02-08 165.1 cm University 20:45:00 [facility] [place] Body weight 2022-02-08 44.861 kg University 20:45:00 [facility] [place] BMI 2022-02-08 16.46 kg/m2 University 20:45:00 [facility] [place] Oxygen saturation 2022-02-08 97 /min [facility] in Arterial blood 20:45:00 [facility] by Pulse oximetry Branch Systolic blood 2020-11-20 129 mm[Hg] University of pressure 10:29:00 [facility] [place] Diastolic blood 2020-11-20 79 mm[Hg] University o f pressure 10:29:00 [facility] [place] Heart rate 2020-11-20 63 /min University 10:29:00 [facility] [place] Respiratory rate 2020-11-20 13 /min University of 10:29:00 [facility] [place] Oxygen saturation 2020-11-20 99 /min [facility] in Arterial blood 10:29:00 [facility] by Pulse oximetry Branch Body temperature 2020-11-20 37 Yas [facility] 08:36:00 [facility] [place] Body weight 2020-11-20 45.36 kg [facility] 08:36:00 [facility] [place] BMI 2020-11-20 16.64 kg/m2 [facility] 08:36:00 [facility] [place] Systolic blood 2022-03-12 130 mm[Hg] [facility] pressure 07:00:00 [facility] Diastolic blood 2022-03-12 89 mm[Hg] [facility] pressure 07:00:00 [facility] Heart rate 2022-03-12 91 /min [facility] 07:00:00 [facility] Body temperature 2022-03-[address] [facility] 07:[facility]:00 [facility] Oxygen saturation 2022-03-12 97 /min [facility] in Arterial blood 07:00:00 [facility] by Pulse oximetry Respiratory rate 2022-03-12 18 /min [facility] 06:30:00 [facility] Body height 2022-03-[address] [facility] 17:49:00 [facility] Body weight 2022-03-[address] [facility] 17:49:00 [facility] BMI 2022-03-11 18.64 kg/m2 [facility] 17:49:00 [facility] Systolic blood 2022-01-08 119 mm[Hg] [facility] pressure 07:05:00 Diastolic blood 2022-01-08 79 mm[Hg] [facility] h pressure 07:05:00 Heart rate 2022-01-08 101 /min Dany Pérez RN [facility] 07:05:00 Aware. Body temperature 2022-01-[address] [facility] 07:05:00 Respiratory rate 2022-01-08 20 /min [facility] 07:05:00 Oxygen saturation 2022-01-08 95 /min [facility] lth in Arterial blood 07:05:00 by Pulse oximetry Body height 2022-01-07 165.1 cm [facility] 20:42:00 Body weight 2022-01-07 44.453 kg [facility] 20:42:00 BMI 2022-01-07 16.31 kg/m2 [facility] 20:42:00 Systolic (mm Hg) 2020-09-15 [facility] rmann 00:09:00 Diastolic (mm Hg) 2020-09-15 [facility] ermann 00:09:00 Respitory Rate 2020-09-15 [facility] 00:09:00 Heart Rate 2020-09-15 [facility] Rehan n 00:09:00 Respitory Rate 2020-09-14 [facility] Herm erica 17:56:00 Heart Rate 2020-09-14 [facility] Rehan n 17:56:00 Systolic (mm Hg) 2020-09-14 [facility] rmann 17:56:00 Diastolic (mm Hg) 2020-09-14 [facility] ermann 17:56:00 Temperature Oral 2020-09-14 98.4 F [facility] rmann (F) 14:00:00 Heart Rate 2020-09-14 [facility] Rehan n 14:00:00 Respitory Rate 2020-09-14 [facility] 14:00:00 Systolic (mm Hg) 2020-09-14 [facility] rmann 14:00:00 Diastolic (mm Hg) 2020-09-14 [facility] ermann 14:00:00 Temperature Oral 2020-09-14 98.3 F [facility] rmann (F) 09:40:00 Respitory Rate 2020-09-14 [facility] 09:40:00 Heart Rate 2020-09-14 [facility] Rehan n 09:40:00 Systolic (mm Hg) 2020-09-14 [facility] rmann 09:40:00 Diastolic (mm Hg) 2020-09-14 [facility] ermann 09:40:00 Temperature Oral 2020-09-14 98.6 F [...] erica 22:21:00 Temperature Oral 2020-01-27 98.8 F [facility] Dick ma (F) 22:21:00 Procedures Procedure Date / Time Performing Clinician Source Performed XR CHEST 1 VW 2022-04-05 Latisha Ramirez [facility] 03:53:06 Medical Branch COMP. METABOLIC PANEL 2022-04-05 Latisha Ramirez [facility] ([id number]) 03:26:00 Medical Branch CBC WITH DIFF 2022-04-05 Ramirez [facility] 03:26:00 [facility] N-TERMINAL PRO-BNP 2022-04-05 Ramirez, [facility] 03:26:00 [facility] CONSENT/REFUSAL FOR 2022-03-28 Doctor Unassigned, [facility] DIAGNOSIS AND TREATMENT 16:37:48 [place] [facility] MAGNESIUM 2022-03-25 [facility] 11:14:00 [facility] BASIC METABOLIC PANEL (NA, 2022-03-25 Geoffrey [facility] K, CL, CO2, GLUCOSE, BUN, 11:14:00 [facility] CREATININE, [place]) CBC WITH DIFF 2022-03-25 [facility] 11:14:00 [facility] BASIC METABOLIC PANEL (NA, 2022-03-24 [facility] [place] K, CL, CO2, GLUCOSE, BUN, 14:11:00 [facility] CREATININE, [place]) MAGNESIUM 2022-03-24 [facility] 07:35:00 [facility] BASIC METABOLIC PANEL (NA, 2022-03-24 Geoffrey [facility] [place] K, CL, CO2, GLUCOSE, BUN, 07:35:00 [facility] CREATININE, [place]) URINALYSIS 2022-03-24 [facility] 07:24:00 [facility] EXTRA TUBE URINE CULTURE 2022-03-24 Esme Edwards [facility] 07:24:00 [facility] BASIC METABOLIC PANEL (NA, 2022-03-23 Geoffrey [facility], CL, CO2, GLUCOSE, BUN, 20:11:00 [facility] CREATININE, [place]) MAGNESIUM 2022-03-23 [facility] xa 10:47:00 [facility] HEPATIC FUNCTION PANEL 2022-03-23 [facility] ([id number]) (ALB,T.PRO,BILI 10:47:00 [facility] T,BU/BC,ALT,AST,ALK PHOS) BASIC METABOLIC PANEL (NA, 2022-03-23 [facility] [place] K, CL, CO2, GLUCOSE, BUN, 10:47:00 [facility] CREATININE, [place]) CBC WITH DIFF 2022-03-23 [facility] xa 10:47:00 [facility] BASIC METABOLIC PANEL (NA, 2022-03-22 [facility] [place] K, CL, CO2, GLUCOSE, BUN, 21:28:00 [facility] CREATININE, [place]) BASIC METABOLIC PANEL (NA, 2022-03-22 [facility] [place] K, CL, CO2, GLUCOSE, BUN, 14:46:00 Medica l Branch CREATININE, [place]) BASIC METABOLIC PANEL (NA, 2022-03-22 [facility] [place] K, CL, CO2, GLUCOSE, BUN, 09:56:00 Medica Branch CREATININE, [place]) CBC WITH DIFF 2022-03-22 [facility] 09:56:00 [facility] PROTHROMBIN TIME / INR 2022-03-22 [facility] 09:56:00 [facility] ACTIVATED PARTIAL THRMPLAS 2022-03-22 [facility] [place] HEATHER 09:56:00 [facility] HEPATIC FUNCTION PANEL 2022-03-22 [facility] ([id number]) (ALB,T.PRO,BILI 06:12:00 Medical Branch T,BU/BC,ALT,AST,ALK PHOS) BASIC METABOLIC PANEL (NA, 2022-03-22 [facility] [place] K, CL, CO2, GLUCOSE, BUN, 06:12:00 Medica l Branch CREATININE, [place]) HB ABO GROUPING 2022-03-21 [facility] xa 21:15:00 [facility] MISCELLANEOUS SEND OUT TEST 2022-03-21 Esme Edwards [facility] 21:11:00 [facility] VITAMIN K1, LEVEL 2022-03-21 [facility] 21:07:00 [facility] QUANTIFERON-TB ASSAY 2022-03-21 [facility] 21:07:00 [facility] SMOOTH MUSCLE AB,IGG 2022-03-21 [facility] W/REFLEX 21:06:00 [facility] [id number] 2022-03-21 [facility] [place] PHENOTYPE 21:06:00 [facility] VITAMIN E, SERUM OR PLASMA 2022-03-21 [facility] 21:06:00 [facility] VITAMIN A, SERUM OR PLASMA 2022-03-21 [facility] 21:06:00 [facility] CERULOPLASMIN 2022-03-21 [facility] [place]as 21:06:00 [facility] TEST, SERUM 2022-03-21 [facility] 21:06:00 [facility] IMMUNOGLOBULIN G A M PANEL 2022-03-21 [facility] 21:06:00 [facility] FREE T4 2022-03-21 [facility] [place] 21:06:00 [facility] ALPHA FETOPROTEIN 2022-03-21 [facility] 21:06:00 [facility] IRON PANEL 2022-03-21 [facility] [place] 21:06:00 [facility] MEASLES IGG 2022-03-21 [facility] [place] 21:06:00 [facility] RUBELLA SCREEN IGG 2022-03-21 [facility] 21:06:00 [facility] TOXOPLASMA IGG ANTIBODY 2022-03-21 [facility] 21:06:00 [facility] EBV NUCLEAR ANTIGEN IGG TEST 2022-03-21 [facility] 21:06:00 [facility] CYTOMEGALOVIRUS ANTIBODY IGG 2022-03-21 [facility] 21:06:00 [facility] VZV ANTIBODY SCREEN 2022-03-21 [facility] [place] 21:06:00 [facility] ANTI-NUCLEAR ANTIBODY SCREEN 2022-03-21 [facility] 21:06:00 [facility] CRYPTOCOCCAL ANTIGEN 2022-03-21 [facility] CSF/SERUM 21:06:00 [facility] HAV ANTIBODY (IGG AND IGM) 2022-03-21 [facility] 21:06:00 [facility] ANTI-NUCLEAR ANTIBODY TITER 2022-03-21 [facility] 21:06:00 [facility] VITAMIN D, 25-OH 2022-03-21 [facility] exas 21:06:00 [facility] HSV 1 AND 2 GLYCOPROTEIN G 2022-03-21 [facility] IGG 21:06:00 [facility] ANTI-SSA(RO) 2022-03-21 [facility] 21:[facility]00 [facility] EXTRA TUBE LT. GREEN 2022-03-21 [facility] 21:06:00 [facility] GALV ONLY - SYPHILIS IGG/IGM 2022-03-21 [facility] 21:06:00 [facility] ANTI-NUCLEAR 2022-03-21 [facility] xa ANTIBODY-PATHOLOGIST 21:06:00 [facility] INTERPRETATION BASIC METABOLIC PANEL (NA, 2022-03-21 [facility] K, CL, CO2, GLUCOSE, BUN, 21:04:00 Medica l Branch CREATININE, [place]) URINALYSIS 2022-03-21 [facility] [place] 20:07:00 [facility] URINE CULTURE 2022-03-21 [facility] xa 20:07:00 [facility] CREATININE, URINE RANDOM 2022-03-21 [facility] 20:07:00 [facility] TOTAL PROTEIN, URINE RANDOM 2022-03-21 [facility] 20:07:00 [facility] URINE DRUG (LCMSMS) - 2022-03-[facility] 20:07:00 [facility] OSMOLALITY URINE 2022-03-21 Ambika [facility] 20:06:00 [facility] SODIUM, URINE RANDOM 2022-03-21 Ambika [facility] 20:06:00 [facility] US ARTERIAL IN OR VENOUS OUT 2022-03-21 [facility] ABDOMEN LIMITED DOPPLER 18:59:24 [facility] GAMMA GLUTAMYLTRANSFERASE 2022-03-21 [facility] 15:06:00 [facility] FERRITIN SERUM 2022-03-21 [facility] [place]as 15:06:00 [facility] OSMOLALITY, SERUM OR PLASMA 2022-03-21 [facility] 15:06:00 [facility] TRIIODOTHYRONINE 2022-03-21 [facility] [place] 15:06:00 [facility] THYROID STIMULATING HORMONE 2022-03-21 [facility] 15:06:00 [facility] BASIC METABOLIC PANEL (NA, 2022-03-21 [facility] K, CL, CO2, GLUCOSE, BUN, 15:06:[address] [facility] CREATININE[place]) LIPID PANEL ([id number])(TOTAL 2022-03-21 [facility] CHOLESTEROL, TRIGLYCERIDES, 15:06:00 [facility] HDL) COMP. METABOLIC PANEL 2022-03-21 Ambika [facility] ([id number]) 10:20:00 [facility] ETHANOL 2022-03-21 Ambika [facility] [place]as 10:20:00 [facility] PROTHROMBIN TIME / INR 2022-03-21 Ambika [facility] 10:20:00 [facility] FIBRINOGEN 2022-03-21 Ambika [facility] [place] 10:20:00 [facility] ALBUMIN BODY FLUID 2022-03-21 Ambika [facility] 07:45:00 [facility] T.PROTEIN BODY FLUID 2022-03-21 Ambika [facility] 07:45:00 [facility] BODY FLUID DIRECT COUNT 2022-03-21 Ambika [facility] 07:45:00 Medical Branch BODY FLUID (BACTEC BOTTLE) 2022-03-21 CallahanDigna huitron [facility] 07:45:00 [facility] AMMONIA, PLASMA 2022-03-21 Yamile Vivar [facility] 05:11:00 Wendi [facility] G6PD SCREENING TEST 2022-03-21 Nina [facility] [place] 05:11:00 [facility] HB ECG ROUTINE & RHYTHM 2022-03-21 Tom [facility] STRIP 02:20:13 [facility] LIPASE 2022-03-21 Tom [facility] exas 02:12:00 [facility] TROPONIN I 2022-03-21 Tom [facility] 02:12:00 [facility] COMP. METABOLIC PANEL 2022-03-[address] [facility] ([id number]) 02:12:00 [facility] ETHANOL 2022-03-21 Tom [facility] ex 02:12:00 [facility] CBC WITH DIFF 2022-03-21 Tom [facility] 02:12:00 [facility] N-TERMINAL PRO-BNP 2022-03-21 Tom [facility] 02:12:00 [facility] COVID-19 (ID NOW RAPID 2022-03-21 Tom [facility] TESTING) 02:12:00 [facility] LAB ONLY COVID 2022-03-21 Tom [facility] INTERPRETATION 02:12:00 [facility] XR CHEST 1 VW 2022-03-21 [facility] 01:26:00 [facility] HOSPITAL ADMISSION 2022-03-20 Doctor Unassigned, [facility] 05:01:00 [place] [facility] POCT GLUCOSE (AUTOMATED) 2022-03-16 [facility] 16:53:00 [facility] POCT GLUCOSE (AUTOMATED) 2022-03-16 Sybil Haney [facility] 13:22:00 [facility] LACTATE DEHYDROGENASE 2022-03-16 [facility] 09:17:00 [facility] MAGNESIUM 2022-03-16 [facility] [place] 09:17:00 Medical Branch BASIC METABOLIC PANEL (NA, 2022-03-16 [place] Dangelo [facility] K, CL, CO2, GLUCOSE, BUN, 09:17:[address] [facility] CREATININE, [place]) CBC WITH DIFF 2022-03-16 [place] Dangelo [facility] [place] 09:17:00 [facility] [place] POCT GLUCOSE (AUTOMATED) 2022-03-16 [facility] 01:58:00 [facility] GLUCOSE BODY FLUID 2022-03-15 [facility] 22:25:00 [facility] T.PROTEIN BODY FLUID 2022-03-15 [facility] 22:25:00 [facility] LDH TOTAL BODY FLUID 2022-03-15 [facility] 22:25:00 [facility] BODY FLUID DIRECT COUNT 2022-03-15 [place] Dangelo [facility] 22:25:00 [facility] BODY FLUID [facility]22[facility]03-[facility](AEROBIC/ANAEROBIC) 22:25:00 [facility] POCT GLUCOSE (AUTOMATED) 2022-03-15 [facility] 21:38[facility]00 [facility] POCT GLUCOSE (AUTOMATED) 2022-03-15 [facility] 15:56:00 [facility] POCT GLUCOSE (AUTOMATED) 2022-03-15 [facility] 12:57:00 [facility] MAGNESIUM 2022-03-15 [facility] 09:30:00 [facility] COMP. METABOLIC PANEL 2022-03-15 [facility] ([id number]) 09:30:00 [facility] [place] CBC WITH DIFF 2022-03-15 [facility] 09:30:00 [facility] POCT GLUCOSE (AUTOMATED) 2022-03-15 [facility] 01:54:00 [facility] POCT GLUCOSE (AUTOMATED) 2022-03-14 [facility] 21:22:00 [facility] POCT GLUCOSE (AUTOMATED) 2022-03-14 [facility] 16:40:00 [facility] POCT GLUCOSE (AUTOMATED) 2022-03-14 [facility] 12:51:00 [facility] MAGNESIUM 2022-03-14 [facility] 08:54:00 [facility] [place] BASIC METABOLIC PANEL (NA, 2022-03-14 [place] Dangelo [facility] K, CL, CO2, GLUCOSE, BUN, 08:54:00 [facility] CREATININE, CA) CBC WITH DIFF 2022-03-14 [facility] 08:54:00 [facility] POCT GLUCOSE (AUTOMATED) 2022-03-14 [facility] 01:19:00 [facility] POCT GLUCOSE (AUTOMATED) 2022-03-13 [facility] 21:38:00 [facility] POCT GLUCOSE (AUTOMATED) 2022-03-13 [facility] 18:09:00 [facility] TEST, SERUM 2022-03-13 Robles Hernandez [facility] 04:05:00 [facility] COMP. METABOLIC PANEL 2022-03-13 Robles Hernandez [facility] ([id number]) 04:05:00 [facility] CT HEAD WO CONTRAST 2022-03-13 Robles Hernandez [facility] 03:18:54 [facility] XR CHEST 1 VW 2022-03-13 Robles Hernandez [facility] 03:17:50 [facility] BLOOD CULTURE SCREEN 2022-03-13 Robles Hernandez [facility] 02:57:00 [facility] LIPASE 2022-03-13 Robles Hernandez [facility] 02:57:00 [facility] AMMONIA, PLASMA 2022-03-13 Robles Hernandez [facility] 02:57:00 [facility] TROPONIN I 2022-03-13 Robles Hernandez [facility] 02:57:00 [facility] CBC WITH DIFF 2022-03-13 Robles Hernandez [facility] 02:57:00 [facility] PROTHROMBIN TIME / INR 2022-03-13 Robles Hernandez [facility] 02:57:00 [facility] N-TERMINAL PRO-BNP 2022-03-13 Robles Hernandez [facility] 02:57:00 [facility] RAPID INFLUENZA A/B 2022-03-13 Robles Hernandez [facility] 02:48:00 [facility] COVID-19 (ID NOW RAPID 2022-03-13 Robles Hernandez [facility] TESTING) 02:48:00 Medical [facility] LAB ONLY COVID 2022-03-13 Robles Hernandez [facility] INTERPRETATION 02:48:00 [facility] ED ECG INTERPRETATION 2022-03-12 Tanisha Quiroz [facility] 08:36:10 [facility] ECG 12-LEAD 2022-03-12 Unknown, Hl7 Doctor [facility] 06:37:07 [facility] ECG 12-LEAD 2022-03-12 Unknown, [facility]l7 Doctor [facility] 06:37:07 [facility] ECG 12-LEAD 2022-03-[address] [facility] 06:35:45 [facility] ECG 12-LEAD 2022-03-12 Unknown, Hl[facility] Doctor [facility] 06:35:45 [facility] ECG 12-LEAD 2022-03-12 Unknown, Hl7 Doctor [facility] 06:35:45 [facility] CBC W/PLT COUNT & AUTO 2022-03-[address] [facility] DIFFERENTIAL 00:56:00 [facility] COMPREHENSIVE METABOLIC 2022-03-[address] [facility] PANEL 00:56:00 [facility] CBC W/PLT COUNT & AUTO 2022-03-[address] [facility] DIFFERENTIAL 00:56:00 [facility] POCT-GLUCOSE METER 2022-03-[address] [facility] 08:37:00 [facility] XR CHEST 1 VIEW PORTABLE / 2022-03-11 Jen Anne [facility] BED[facility]IDE 06:59:00 [facility] CBC (HEMOGRAM ONLY) 2022-03-[address] [facility] 04:18:00 [facility] COMPREHENSIVE METABOLIC 2022-03-[address] [facility] PANEL 04:18:00 [facility] PHOSPHORUS 2022-03-[address] [facility] 04:18:00 [facility] MAGNESIUM 2022-03-[address] [facility] 04:18:00 [facility] CALCIUM, IONIZED 2022-03-11 Trevon Espinoza Artur [facility] 04:18:00 [facility] FIBRINOGEN 2022-03-[address] [facility] 04:18:00 [facility] LACTIC ACID, ARTERIAL 2022-03-11 Trevon Espinoza Artur [facility] 04:18:00 [facility] PROTHROMBIN TIME/INR 2022-03-[address] [facility] 04:18:00 [facility] EKG-SCANNED 2022-03-11 Provider, Default [facility] 00:00:00 [facility] POCT-GLUCOSE METER 2022-03-10 Civunigunta, [facility] 20:53:00 [facility] POCT-GLUCOSE METER 2022-03-10 Civun[place]un[place], [facility] 17:11:00 [facility] POCT-GLUCOSE METER 2022-03-10 Civunigunta, [facility] 13:17:00 [facility] CBC (HEMOGRAM ONLY) 2022-03-[address] [facility] 06:16:00 [facility] COMPREHENSIVE METABOLIC 2022-03-[address] [facility] PANEL 06:16:00 [facility] PHOSPHORUS 2022-03-[address] [facility] 06:16:00 [facility] MAGNESIUM 2022-03-[address] [facility] 06:16:00 [facility] CALCIUM, IONIZED 2022-03-[address] [facility] 06:16:00 [facility] FIBRINOGEN 2022-03-[address] [facility] 06:16:00 [facility] LACTIC ACID, ARTERIAL 2022-03-10 Trevon Espinoza Artur [facility] 06:16:00 [facility] PROTHROMBIN TIME/INR 2022-03-[address] [facility] 06:16:00 [facility] POCT-GLUCOSE METER 2022-03-09 Civunigunta, [facility] 21:09:00 [facility] HEREDITARY HEMOCHROMATOSIS 2022-03-09 Juan Maki [facility] 15:20:00 [facility] POCT-GLUCOSE METER 2022-03-09 [place], [facility] 11:07:00 [facility] POCT-GLUCOSE METER 2022-03-09 Civ[place]un[place], [facility] 07:30:00 [facility] XR CHEST 1 VIEW PORTABLE / 2022-03-09 [facility]mid [facility] 07:09:00 [facility] SARS-COV2/RT-PCR ([facility] & REF 2022-03-[address] [facility] LABS) 05:25:00 [facility] CBC (HEMOGRAM ONLY) 2022-03-[address] [facility] 04:37:00 [facility] COMPREHENSIVE METABOLIC 2022-03-[address] [facility] PANEL 04:37:00 [facility] PHOSPHORUS 2022-03-[address] [facility] 04:37:00 [facility] MAGNESIUM 2022-03-[address] [facility] 04:37:00 [facility] CALCIUM, IONIZED 2022-03-[address] [facility] 04:37:00 [facility] FIBRINOGEN 2022-03-[address] [facility] 04:37:00 [facility] LACTIC ACID, ARTERIAL 2022-03-[address] [facility] 04:37:00 [facility] PROTHROMBIN TIME/INR 2022-03-[address] [facility] 04:37:00 [facility] POCT-GLUCOSE METER 2022-03-08 [facility] 21:07:00 [facility] POCT-GLUCOSE METER 2022-03-08 Civunbarba, [facility] 17:09:00 [facility] POCT-GLUCOSE METER 2022-03-08 [place], [facility] 10:58:00 [facility] POTASSIUM 2022-03-[address] [facility] 10:08:00 [facility] PHOSPHORUS 2022-03-[address] [facility] 07:54:00 [facility] POCT-GLUCOSE METER 2022-03-08 Civun[place]un[place], [facility] 07:29:00 [facility] POCT-GLUCOSE METER 2022-03-[address] [facility] 06:57:00 [facility] BLOOD GAS, ARTERIAL 2022-03-[address] [facility] 03:54:00 [facility] CBC (HEMOGRAM ONLY) 2022-03-[address] [facility] 03:53:00 [facility] COMPREHENSIVE METABOLIC 2022-03-[address] [facility] PANEL 03:53:00 [facility] PHOSPHORUS 2022-03-[address] [facility] 03:53:00 [facility] MAGNESIUM 2022-03-08 Trevon Espinoza Chao [facility] 03:53:00 [facility] CALCIUM, IONIZED 2022-03-08 Alexis Tervon Siddiqui [facility] 03:53:00 [facility] FIBRINOGEN 2022-03-[address] [facility] 03:53:00 [facility] LACTIC ACID, ARTERIAL 2022-03-[address] [facility] 03:53:00 [facility] PROTHROMBIN TIME/INR 2022-03-[address] [facility] 03:53:00 [facility] HEPATITIS A ANTIBODY, IGG 2022-03-[address] [facility] 03:53:00 [facility] HEREDITARY HEMOCHROMATOSIS 2022-03-08 Yrn Aleman [facility] 03:53:00 [facility] CMV PCR, QUANTITATIVE 2022-03-[address] [facility] 03:53:00 [facility] OXYGEN SATURATION, MEASURED 2022-03-[address] [facility] 03:48:00 [facility] XR CHEST 1 VIEW PORTABLE / 2022-03-08 Jen Anne [facility] 02:45:00 [facility] POCT-GLUCOSE METER 2022-03-[address] [facility] 22:24:00 [facility] POTASSIUM 2022-03-[address] [facility] 22:18:00 [facility] POTASSIUM 2022-03-[address] [facility] 17:49:00 [facility] MAGNESIUM 2022-03-[address] [facility] 17:49:00 [facility] POCT-GLUCOSE METER 2022-03-[address] [facility] POCT-GLUCOSE METER 2022-03-[address] [facility] 09:46:00 [facility] CALCIUM, IONIZED 2022-03-[address] [facility] 04:17:00 [facility] CBC (HEMOGRAM ONLY) 2022-03-[address] [facility] 03:37:00 [facility] COMPREHENSIVE METABOLIC 2022-03-[address] [facility] PANEL 03:37:00 [facility] PHOSPHORUS 2022-03-[address] [facility] 03:37:00 [facility] MAGNESIUM 2022-03-[address] [facility] 03:37:00 [facility] FIBRINOGEN 2022-03-[address] [facility] 03:37:00 [facility] LACTIC ACID, ARTERIAL 2022-03-[address] [facility] 03:37:00 [facility] PROTHROMBIN TIME/INR 2022-03-[address] [facility] 03:37:00 [facility] BLOOD GAS, ARTERIAL 2022-03-[address] [facility] 03:36:00 [facility] XR CHEST 1 VIEW PORTABLE / 2022-03-07 Jen Anne [facility] 01:25:00 [facility] VANCOMYCIN LEVEL, TROUGH 2022-03-[address] [facility] 00:13:00 [facility] POCT-GLUCOSE METER 2022-03-[address] [facility] 16:30:00 [facility] BRONCHIAL CULTURE + GRAM 2022-03-[address] [facility] STAIN 12:24:00 [facility] AFB CULTURE + SMEAR 2022-03-[address] [facility] (NON-SPUTUM) 12:24:00 [facility] FUNGUS CULTURE + SMEAR 2022-03-[address] [facility] 12:24:00 [facility] SPIN/CONCENTRATION CHARGE 2022-03-[address] [facility] 12:24:00 [facility] BLOOD GAS, ARTERIAL 2022-03-[address] [facility] 12:23:00 [facility] POCT-GLUCOSE METER 2022-03-[address] [facility] 12:23:00 [facility] BLOOD GAS, ARTERIAL 2022-03-[address] [facility] 04:24:00 [facility] ECG 12-LEAD 2022-03-06 Unknown, Hl7 Doctor [facility] 04:18:31 Medical Center ECG 12-LEAD 2022-03-06 Unknown, Hl7 Doctor [facility] 04:18:31 [facility] ECG 12-LEAD 2022-03-06 Unknown, Hl7 Doctor [facility] 04:18:31 [facility] ECG 12-LEAD 2022-03-06 Unknown, Hl7 Doctor [facility] 04:10:50 [facility] ECG 12-LEAD 2022-03-06 Unknown, Hl7 Doctor [facility] 04:10:50 [facility] CBC (HEMOGRAM ONLY) 2022-03-[address] [facility] 04:05:00 [facility] COMPREHENSIVE METABOLIC 2022-03-[address] [facility] PANEL 04:05:00 [facility] PHOSPHORUS 2022-03-[address] [facility] 04:05:00 [facility] MAGNESIUM 2022-03-[address] [facility] 04:05:00 [facility] CALCIUM, IONIZED 2022-03-[address] [facility] 04:05:00 [facility] FIBRINOGEN 2022-03-[address] [facility] 04:05:00 [facility] LACTIC ACID, ARTERIAL 2022-03-[address] [facility] 04:05:00 [facility] PROTHROMBIN TIME/INR 2022-03-[address] [facility] 04:05:00 [facility] OXYGEN SATURATION, MEASURED 2022-03-[address] [facility] 04:05:00 [facility] POCT-GLUCOSE METER 2022-03-[address] [facility] 01:08:00 [facility] XR CHEST 1 VIEW PORTABLE / 2022-03-06 Jen Anne [facility] 00:54:00 [facility] POCT-GLUCOSE METER 2022-03-[address] [facility] 19:57:00 [facility] POCT-GLUCOSE METER 2022-03-[address] [facility] 18:18:00 [facility] BLOOD GAS, ARTERIAL 2022-03-[address] [facility] 15:35:00 [facility] BLOOD GAS, ARTERIAL 2022-03-[address] [facility] 14:42:00 [facility] POCT-GLUCOSE METER 2022-03-[address] [facility] 12:42:00 [facility] MR ABDOMEN WITH & WITHOUT IV 2022-03-[address] [facility] CONTRAST 11:40:00 [facility] XR CHEST 1 VIEW PORTABLE / 2022-03-05 Dat Grajeda [facility] 11:37:00 [facility] POCT-GLUCOSE METER 2022-03-[address] [facility] 05:45:00 [facility] BLOOD GAS, ARTERIAL 2022-03-[address] [facility] 04:55:00 [facility] CBC (HEMOGRAM ONLY) 2022-03-[address] [facility] 04:54:00 [facility] COMPREHENSIVE METABOLIC 2022-03-[address] [facility] PANEL 04:54:00 [facility] PHOSPHORUS 2022-03-[address] [facility] 04:54:00 [facility] MAGNESIUM 2022-03-[address] [facility] 04:54:00 [facility] CALCIUM, IONIZED 2022-03-[address] [facility] 04:54:00 [facility] FIBRINOGEN 2022-03-[address] [facility] 04:54:00 [facility] LACTIC ACID, ARTERIAL 2022-03-[address] [facility] 04:54:00 [facility] PROTHROMBIN TIME/INR 2022-03-[address] [facility] 04:54:00 [facility] OXYGEN SATURATION, MEASURED 2022-03-[address] [facility] 04:54:00 [facility] PREPARE CRYOPRECIPITATE 2022-03-[address] [facility] 23:54:00 [facility] POCT-GLUCOSE METER 2022-03-[address] [facility] 23:43:00 [facility] POCT-GLUCOSE METER 2022-03-[address] [facility] 17:55:00 [facility] CORTISOL,60 MIN 2022-03-[address] [facility] 15:48:00 [facility] CORTISOL,30 MIN 2022-03-[address] [facility] 15:13:00 [facility] POCT-GLUCOSE METER 2022-03-[address] [facility] 15:02:00 [facility] OXYGEN SATURATION, MEASURED 2022-03-[address] [facility] 14:42:00 [facility] US GUIDE, VASCULAR ACCESS 2022-03-04 Tre[address] [facility] 13:14:12 [facility] AMMONIA 2022-03-[address] [facility] 12:26:00 [facility] XR CHEST 1 VIEW PORTABLE / 2022-03-04 Jen Anne [facility] 12:14:00 [facility] ACTH STIMULATION 2022-03-[address] [facility] 12:11:00 [facility] VANCOMYCIN LEVEL, TROUGH 2022-03-[address] [facility] 12:11:00 [facility] CORTISOL,BASELINE 2022-03-[address] [facility] 12:11:00 [facility] MISCELLANEOUS LAB ORDER 2022-03-[address] [facility] 10:19:00 [facility] T SPOT TB 2022-03-[address] [facility] 10:19:00 [facility] VITAMIN B12 2022-03-[address] [facility] 10:19:00 [facility] URINALYSIS W/ REFLEX URINE 2022-03-04 Jeramy Harley [facility] CULTURE 10:16:00 [facility] POCT-GLUCOSE METER 2022-03-[address] [facility] 06:41:00 [facility] CBC (HEMOGRAM ONLY) 2022-03-[address] [facility] 04:10:00 [facility] COMPREHENSIVE METABOLIC 2022-03-[address] [facility] PANEL 04:10:00 [facility] PHOSPHORUS 2022-03-04 [address]za Chao [facility] 04:10:00 [facility] MAGNESIUM 2022-03-[address] [facility] 04:10:00 [facility] CALCIUM, IONIZED 2022-03-04 Tre[address] Espinoza Chao [facility] 04:10:00 [facility] BLOOD GAS, VENOUS 2022-03-[address] [facility] 04:10:00 [facility] FIBRINOGEN 2022-03-[address] [facility] 04:10:00 [facility] PERIPHERAL BLOOD SMEAR - 2022-03-04 Trevon Espinoza Chao [facility] PATHOLOGIST REVIEW 04:10:[address] [facility] RETICULOCYTE COUNT 2022-03-04 Alexis [address]o [facility] 04:10:00 [facility] (MANUAL DIFFERENTIAL) 2022-03-[address] [facility] 04:10:00 [facility] CORTISOL 2022-03-[address] [facility] 00:55:00 [facility] POCT-GLUCOSE METER 2022-03-[address] [facility] 00:43:00 [facility] PHOSPHORUS 2022-03-[address] [facility] 22:06:00 [facility] CALCIUM, IONIZED 2022-03-[address] [facility] 22:06:00 [facility] BASIC METABOLIC PANEL (7) 2022-03-[address] [facility] 22:06:00 [facility] LACTIC ACID, VENOUS 2022-03-[address] [facility] 22:06:00 [facility] CBC (HEMOGRAM ONLY) 2022-03-[address] [facility] 22:06:00 [facility] HC CAROTID DOPPLER GERALDO 2022-03-03 Lele Hannah [facility] 21:30:00 [facility] POCT-GLUCOSE METER 2022-03-[address] [facility] 19:57:00 [facility] POCT-GLUCOSE METER 2022-03-03 Moshe Saldivar AbelDominique [facility] 18:22:00 [facility] TRANSFUSE CRYOPRECIPITATE 2022-03-[address] [facility] 16:15:00 [facility] ECG 12-LEAD 2022-03-03 Unknown, Hl7 Doctor [facility] 15:06:51 [facility] ECG 12-LEAD 2022-03-03 Unknown, Hl7 Doctor [facility] 15:06:51 [facility] ECG 12-LEAD 2022-03-03 Unknown, Hl7 Doctor [facility] 15:06:51 [facility] ECHO W CONTRAST & DOPPLER 2022-03-[address] [facility] 13:59:05 [facility] ABORH, MANUAL 2022-03-[address] [facility] 13:54:00 [facility] BLOOD GAS, ARTERIAL 2022-03-[address] [facility] 13:44:00 [facility] POCT-GLUCOSE METER 2022-03-[address] [facility] 13:39:00 [facility] CALCIUM, IONIZED 2022-03-03 Brielle, Lele Saldaña [facility] 13:34:00 [facility] TYPE AND SCREEN, AUTOMATED 2022-03-[address] [facility] 13:32:00 [facility] CBC W/PLT COUNT & AUTO 2022-03-[address] [facility] DIFFERENTIAL 13:22:00 [facility] URIC ACID 2022-03-[address] [facility] 13:22:00 [facility] COMPREHENSIVE METABOLIC 2022-03-[address] [facility] PANEL 13:22:00 [facility] BILIRUBIN, DIRECT 2022-03-[address] [facility] 13:22:00 [facility] GAMMA GLUTAMYL TRANSFERASE 2022-03-[address] [facility] (GGT) 13:22:00 [facility] MAGNESIUM 2022-03-[address] [facility] 13:22:00 [facility] PHOSPHORUS 2022-03-03 Brielle, Lele Saldaña [facility] 13:22:00 [facility] ZINC 2022-03-03 Brielle, Lele Saldaña [facility] 13:22:00 [facility] ALPHA-1 ANTITRYPSIN MUTATION 2022-03-03 Brielle, Lele Saldaña [facility] ANALYSIS 13:22:00 [facility] LIPID PANEL 2022-03-03 Brielle, Lele Saldaña [facility] 13:22:00 [facility] CBC W/PLT COUNT & AUTO 2022-03-03 Shamshirsaz, Amir [facility] DIFFERENTIAL 13:22:00 [facility] VITAMIN D, 25-HYDROXY 2022-03-03 Brielle, Lele [facility] 13:21:00 [facility] RUBELLA ANTIBODY, IGG 2022-03-03 Brielle, Lele [facility] 13:21:00 [facility] VARICELLA ZOSTER ANTIBODY, 2022-03-03 Brielle, Lele Bowen [facility] IGG 13:21:00 [facility] T3 2022-03-03 Brielle, Lele Saldaña [facility] 13:21:00 [facility] RPR 2022-03-03 Darlynl, Lele Saldaña [facility] 13:21:00 [facility] ANTI-NUCLEAR ANTIBODY (EMILIANO) 2022-03-03 [facility] 13:20:00 [facility] [facility] RUBEOLA ANTIBODY IGG 2022-03-03 [facility] 13:20:00 [facility] CRYPTOCOCCAL ANTIGEN 2022-03-03 [facility] 13:20:00 [facility] IRON, TIBC, % SAT. (WITHOUT 2022-03-03 Jalal, Lele Saldaña [facility] FERRITIN) 13:20:00 [facility] FERRITIN 2022-03-03 Brielle, Lele Saldaña [facility] 13:20:00 [facility] TRANSFERRIN 2022-03-03 Brielle, Lele Saldaña [facility] 13:20:00 [facility] ALPHA FETOPROTEIN (AFP), 2022-03-03 Brielle, Lele [facility] TUMOR MARKER 13:20:00 [facility] CARCINOEMBRYONIC ANTIGEN 2022-03-03 Brielle, Lele Saldaña [facility] (CEA) 13:20:00 [facility] TSH 2022-03-03 Brielle, Lele Saldaña [facility] 13:20:00 [facility] T4 2022-03-03 Brielle, Lele Saldaña [facility] 13:20:00 [facility] HEPATITIS B SURFACE ANTIBODY 2022-03-03 Brielle, Lele Saldaña [facility] 13:20:00 [facility] HEPATITIS B CORE ANTIBODY, 2022-03-03 Brielle, [facility]le [facility]en [facility] TOTAL 13:20:00 [facility] CYTOMEGALOVIRUS ANTIBODY, 2022-03-03 Brielle, Lele Salda[facility] IGG 13:20:00 [facility] EBV ANTIBODY, IGM 2022-03-03 Brielle, [facility]le [facility] 13:20:00 [facility] HC LAB HIV-1 AG W/HIV-1&2 AB 2022-03-03 Brielle, Lele Saldaña [facility] 13:20:00 [facility] EMILIANO TITER AND PATTERN 2022-03-03 Brielle, Lele Saldaña [facility] 13:20:00 [facility] MUMPS ANTIBODY, IGG 2022-03-03 Brielle, [facility] Salda[facility] 13:19:00 [facility] CERULOPLASMIN 2022-03-03 Brielle, Lele Saldaña [facility] 13:19:00 [facility] CARBOHYDRATE ANTIGEN 19-9 2022-03-03 Brielle, Lele Saldaña [facility] (CA 19-9) 13:19:00 [facility] ETHANOL 2022-03-03 Brielle, Lele Saldaña [facility] 13:19:00 [facility] ACTIN (SMOOTH MUSCLE) 2022-03-03 Brielle, Lele Saldaña [facility] ANTIBODY, IGG 13:18:00 [facility] MITOCHONDRIA M2 ANTIBODY 2022-03-03 Brielle, Lele Saldaña [facility] (IGG) 13:18:00 [facility] NGQUK-0-QYTXOMEPRFI\\, SERUM 2022-03-03 Brielle, Lele Saldaña [facility] 13:18:00 [facility] POCT-GLUCOSE METER 2022-03-[address] [facility] 13:11:00 Medical Center AFB CULTURE + SMEAR 2022-03-[address] [facility] (NON-SPUTUM) 12:40:00 [facility] BRONCHIAL CULTURE + GRAM 2022-03-[address] [facility] STAIN 12:40:00 [facility] FUNGUS CULTURE + SMEAR 2022-03-03 [facility] 12:40:00 [facility] DRUG SCREEN, URINE, 2022-03-[address] [facility] TRANSPLANT 12:40:00 [facility] SPIN/CONCENTRATION CHARGE 2022-03-03 Trevon [facility] [facility] 12:40:00 [facility] SCREEN, URINE 2022-03-[address] [facility] 12:18:00 [facility] US ABDOMEN COMPLETE 2022-03-[address] [facility] 11:46:00 [facility] US DOPPLER 2022-03-[address] [facility] 11:46:00 [facility] FIBRINOGEN 2022-03-03 Shamshirselijah, Amir [facility] 10:45:00 [facility] PROTHROMBIN TIME/INR 2022-03-03 Shamshirsaz, Amir [facility] 10:45:00 [facility] APTT 2022-03-[address] [facility] 10:45:00 [facility] BLOOD GAS, VENOUS 2022-03-03 Shamshirsaz, Amir [facility] 07:55:00 [facility] THROMBOELASTOGRAPH (TEG) 2022-03-03 Shamshirselijah, [facility]ir [facility] 07:55:00 [facility] XR CHEST 1 VIEW PORTABLE / 2022-03-03 Jeramy Harley [facility] BEDSIDE 02:33:00 [facility] XR ABDOMEN / KUB 1 VIEW 2022-03-[address] [facility] 02:30:00 [facility] BLOOD CULTURE 2022-03-[address] [facility] 02:21:00 [facility] PROTHROMBIN TIME/INR 2022-03-[address] [facility] 02:21:00 [facility] APTT 2022-03-[address] [facility] 02:21:00 [facility] COMPREHENSIVE METABOLIC 2022-03-[address] [facility] PANEL 02:21:00 [facility] MAGNESIUM 2022-03-[address] [facility] 02:21:00 [facility] LACTIC ACID, VENOUS 2022-03-[address] [facility] 02:21:00 [facility] FIBRINOGEN 2022-03-[address] [facility] 02:21:00 [facility] CBC (HEMOGRAM ONLY) 2022-03-[address] [facility] 02:21:00 [facility] HEMOGLOBIN A1C 2022-03-[address] [facility] 02:21:00 [facility] BLOOD CULTURE 2022-03-[address] [facility] 02:20:00 [facility] HEPATITIS B SURFACE ANTIGEN 2022-02-[address] [facility] 19:11:00 [facility] HEPATITIS A ANTIBODY, IGM 2022-02-[address] [facility] 19:11:00 [facility] HEPATITIS B CORE ANTIBODY, 2022-02-[address] [facility] IGM 19:11:00 [facility] HEPATITIS C ANTIBODY 2022-02-[address] [facility] 19:11:00 [facility] EXTERNAL PROVIDER RECORDS 2022-02-25 Doctor Unassigned, [facility] 05:01:00 [place] [facility] CONSULT CLINICAL CASE 2022-01-08 Annel Leon lt MANAGEMENT (RN/SW) 08:15:17 CONSULT CLINICAL CASE 2022-01-07 Heber Arana daniela lt MANAGEMENT (RN/SW) 22:38:01 CBC/DIFF 2022-01-[address] [facility] 20:26:00 BASIC METABOLIC PANEL 2022-01-07 Sulema Woodard Harri s [facility] 20:26:00 ALCOHOL, MEDICAL USE ONLY 2022-01-07 Sulema Woodard arris [facility] 20:26:00 CK, TOTAL 2022-01-07 Sulema Woodard [facility] 20:26:00 CBC 2022-01-07 Sule[address] Wood[address] [facility] 20:26:00 12 LEAD EKG 2022-01-07 Heber Arana [facility] 16:30:01 CT ANGIOGRAM ABDOMEN/PELVIS 2020-11-20 [facility] 09:48:33 Medical Branch POCT TEST 2020-11-[address] [facility] [place] 09:27:00 Medical Branch BILI UNCONJUGATED/BILI 2020-11-20 [facility] CONJUG 08:54:00 Medical Branch COMP. METABOLIC PANEL 2020-11-20 [place] [facility] ([id number]) 08:54:00 Medical Branch CBC WITH DIFF 2020-11-20 [facility] xas 08:54:00 [facility] PROTHROMBIN TIME / INR 2020-11-20 [facility] 08:54:00 [facility] POCT GLUCOSE (AUTOMATED) 2020-11-20 Doctor Unassigned, [facility] 08:36:00 [place] [facility] Plan of Care Planned Activity Planned Date Details Comments Source Future Scheduled 2022-04-16 IMM Influenza [facility] Test 00:00:00 Seasonal (>/= 19 yrs) [code = IMM Influenza Seasonal (>/= 19 yrs)] Future Scheduled 2022-04-[address] [facility] Test 00:00:00 Seasonal (>/= 19 yrs) [code = IMM Influenza Seasonal (>/= 19 yrs)] Future Scheduled 2022-04-[address] [facility] Test 00:00:00 Seasonal (>/= 19 yrs) [...] [facility] 00:00[facility]00 - Booster for [facility] Pfizer series) [code = COVID-19 VACCINE (3 - Booster for Pfizer series)] Future Scheduled 2021-11-02 COVID-19 VACCINE ([address] [facility] Test 00:00:00 - Booster for Medical Center Pfizer series) [code = COVID-19 VACCINE (3 - Booster for Pfizer series)] Future Scheduled 2021-11-02 COVID-19 VACCINE ([address] [facility] Test 00:00:00 - Booster for [facility] Pfizer series) [code = COVID-19 VACCINE (3 - Booster for Pfizer series)] Future Scheduled 2021-11-02 COVID-19 VACCINE ([address] [facility] Test 00:00:00 - Booster for [facility] Pfizer series) [code = [...] Univer sity of Test 00:00:00 (Season Ended) [place] [facility] [code = INFLUENZA Branch VACCINE (Season Ended)] Future Scheduled 2016 [facility] 00:00:00 malignant neoplasm of cervix (procedure) [code = 972701395] Future Scheduled 2016 [facility] 00:00:00 malignant neoplasm of cervix (procedure) [code = 958336523] Future Scheduled 2016 [facility] 00:00:00 malignant neoplasm of cervix (procedure) [code = 694967757] Future Scheduled 2016 [facility] 00:00:00 malignant neoplasm of cervix (procedure) [code = 301105753] Future Scheduled 2016 [facility] 00:00:00 malignant neoplasm of cervix (procedure) [code = 068135581] Future Scheduled 2016 [facility] 00:00:00 malignant neoplasm of cervix (procedure) [code = 166023239] Future Scheduled [address] [facility] Test 00:00:00 malignant neoplasm Medical C enter of cervix (procedure) [code = 528240883] Future Scheduled [address] [facility] Test 00:00:00 malignant neoplasm Medical C enter of cervix (procedure) [code = 272720887] Future Scheduled [address] [facility] Test 00:00:00 malignant neoplasm Medical C enter of cervix (procedure) [code = 923082502] Future Scheduled [address] [facility] Test 00:00:00 malignant neoplasm Medical C enter of cervix (procedure) [code = 492904213] Future Scheduled 2007 Screening for [facility] Test 00:00:00 malignant neoplasm [facility] ica of cervix Branch (procedure) [code = 746542746] Future Scheduled 2005 DTAP/TDAP/TD [facility] of Test 00:00:00 Vaccines (1 - Tdap) [place] [facility] dical [code = Branch DTaP,Tdap,and Td Vaccines (1 - Tdap)] Future Scheduled 2004 Hepatitis C University [facility] Test 00:00:00 screening [place] [facility] (procedure) [code = Branch 907223585] Future Scheduled 2002 SARS-CoV-2 University [facility] Test 00:00:00 (COVID-19) Vaccine [place] [facility] (1) [code = Branch SARS-CoV-2 (COVID-19) Vaccine (1)] Future Scheduled 1998 Depression University [facility] Test 00:00:00 screening [place] [facility] (procedure) [code = Branch 624600709] Future Scheduled [address] [facility] [...] childhood series)] Future Scheduled 1987-02-22 COVID-19 Vaccine [facility] Test 00:00:00 (#1) [code = COVID-19 Vaccine (#1)] Future Scheduled 1987-02-22 COVID-19 Vaccine [facility] Test 00:00:00 (#1) [code = COVID-19 Vaccine (#1)] Future Scheduled 1987-02-22 COVID-19 Vaccine [facility] 00:00:00 (#1) [code = COVID-19 Vaccine (#1)] Future Scheduled 1986 Fluoride Varnish [facility] Test 00:00:00 [code = Fluoride Varnish] Future Scheduled 1986 Fluoride Varnish [facility] Test 00:00:00 [code = Fluoride Varnish] Future Scheduled 1986 Fluoride Varnish [facility] Test 00:00:00 [code = Fluoride Varnish] Future Scheduled CT ANG[facility]GRAM [facility] ABDOMEN/PELVIS [facility] [code = 66718] [place] Future Scheduled IRON PANEL [code = Unive rsity of Test 2365] [facility] Future Scheduled IRON PANEL [code = ONCE for 1 Unive rsity of Test 2365] Occurrences [facility] 11/20/2020 until 11/20/2020 Encounters Start End Encounter Admission Attending Care Care Encounter Source Date/Time Date/Time Type Type Clinicians Facility Department ID 2022-04-01 Outpatient [facility] [id number] [place] 09:58:42 [id number] [facility] 2021-11-19 Outpatient [facility] [id number] [place] 09:02:08 [id number] [facility] 2022-04-04 2022-04-05 Emergency X JAMES [facility] ERT [id number] Univers 21:16:00 00:42:00 LATISHA [facility] 2022-04-04 2022-04-05 Emergency James [facility] [id number] Univers 21:16:00 00:42:00 Latisha BILLY [id number] i [facility] [id number] [facility] [id number] [facility] 084 Branch 2022-03-28 2022-03-28 Emergency X JADA [facility] ERT [id number] Univers 11:42:00 13:51:00 KORI vieira of [facility] 2022-03-28 2022-03-28 [facility] [id number] Univers 11:42:00 13:51:00 Kori BILLY 350.1.13.10 i ty [place] [id number] [facility] 084 Branch 2022-03-28 2022-03-28 Transition LUKAS [place] [id number] Univers 00:00:00 00:00:00 of Care Nazanin [place] [id number] [id number] [id number] [facility] 403 Branch 2022-03-20 2022-03-25 Inpatient X GRACE [facility] [id number] Univers 18:38:00 18:33:[address] [facility] 2022-03-20 2022-03-25 [facility] Hannah Santos 1.2.840. 114 [id number] Univers 18:38:00 18:33:00 Encounter Yamile Vivar 350. 1.13.10 ity of [facility] 4.2.7.2.686 Esme Sidhu [id number] Medical [facility], Deepali 093 B shalini 2022-03-20 2022-03-20 Telephone GABRIEL Dale [id number] Univers 00:00:00 00:00:00 Oleg CHESTER [id number] ity of [facility] 4.2.7.2.686 Joesph as [id number] [facility] 025 Branch 2022-03-17 2022-03-17 Transition LUKAS [place] 1.2.840.114 [id number] Univers 00:00:00 00:00:00 of Care Nazanin [place] 350.1.13.10 [place] [id number] [facility] 403 Branch 2022-03-12 2022-03-16 Inpatient X DAWIT [facility] [id number] Univers 21:42:00 15:43:[address] [facility] 2022-03-12 2022-03-16 Hospital Robles Hernandez [facility] 1.2.840 .114 [id number] Univers 21:42:00 15:43:00 Encounter Sybil Haney 350.1.13.10 ity [facility] [id number] [facility] [id number] [address] 2022-03-12 2022-03-12 Outpatient [facility] [id number] [facility] 00:00:00 23:59:00 Latisha Medicin e 2022-03-11 2022-03-12 Emergency ER QUIROZ, [facility] Emergency [id number] SLE 19:46:00 19:00:00 TANISHA 2022-03-11 2022-03-12 Emergency Quiroz, [facility] [id number] 19:46:00 19:00:00 [facility] 2022-03-11 2022-03-12 Emergency ER Quiroz, [facility] [id number] 19:46:00 19:00:00 [facility] 2022-03-11 2022-03-11 Outpatient Flako DALE [facility] [id number] Univers 16:00:00 16:00:00 [facility] 2022-03-02 2022-03-11 Inpatient UR JAYANT [facility] Gastro [id number] SLE 23:18:00 15:30:00 , YEMI 2022-03-02 2022-03-11 Hospital ElidaCritical Access HospitalCatPhu brown In [facility] [id number] 23:18:00 15:30:00 Encounter Moshe Saldivar, Jared [facility] Lior Fiore, Lakeisha Franks 2022-03-02 2022-03-11 Hospital [facility] [place] [facility] [id number] 23:18:00 15:30:00 Encounter Moshe Saldivar [facility], [facility] Lior Fiore, Yemi Shields, Lakeisha Sanchez 2022-03-11 2022-03-[address] [facility] [id number] [facility] 00:00:00 00:00:00 [facility] 2022-03-11 2022-03-[address] [facility] [id number] [facility] 00:[facility] 00:00:00 [facility] 2022-03-10 2022-03-10 Documentat Prabhakar [facility] [id number] 00:00:00 00:00:00 [facility] 2022-03-10 2022-03-10 [facility] [id number] 00:00:00 00:00:00 [facility] 2022-03-10 2022-03-10 Documentat Prabhakar [facility] [id number] 00:00:00 00:00:00 [facility] 2022-03-10 2022-03-10 Documentgallo Cochran [facility] [id number] 00:00:00 00:00:00 [facility] 2022-03-09 2022-03-09 Documentat Dimas [facility] [id number] 00:00:00 00:00:00 [facility] 2022-03-09 2022-03-09 Documentat Dimas [facility] [id number] 00:00:00 00:00:00 [facility] 2022-03-08 2022-03-08 Documentat Emilia [facility] [id number] 00:00:00 00:00:00 [facility] 2022-03-08 2022-03-08 Documentat Nieto [facility] [id number] 00:00:00 00:00:00 [facility] 2022-03-07 2022-03-07 Ashish Cochran [facility] [id number] 00:00:00 00:00:00 [facility] 2022-03-07 2022-03-07 Ashish Cochran [facility] [id number] 00:00:00 00:00:00 [facility] 2022-03-04 2022-03-04 Ashish Cochran [facility] [id number] 00:00:00 00:00:00 [facility] 2022-03-04 2022-03-04 Ashish Crystal [facility] [id number] 00:00:00 00:00:00 [facility] 2022-03-04 2022-03-04 Ashish Crystal [facility] [id number] 00:00:00 00:00:00 [facility] 2022-03-04 2022-03-04 Ashish Crystal [facility] [id number] 00:00:00 00:00:00 [facility] 2022-03-04 2022-03-04 Ashish Cochran [facility] [id number] 00:00:00 00:00:00 [facility] 2022-03-04 2022-03-04 Ashish Crystal [facility] [id number] 00:00:00 00:00:00 [facility] 2022-03-03 2022-03-03 Outpatient [facility] [id number] [facility] 00:00:00 23:59:00 Patti 2022-03-03 2022-03-03 Orders [facility] [id number] 00:00:00 00:00:00 [facility] 2022-03-03 2022-03-03 Documentat [facility] R[facility] [id number] 00:00:00 00:00:00 [facility] 2022-03-03 2022-03-03 Telephone [facility] [id number] 00:00:00 00:00:00 [facility] 2022-03-03 2022-03-03 Abstract Gabriel Joaquin [facility] [id number] 00:00:00 00:00:00 [facility] 2022-03-03 2022-03-03 Orders [facility] [id number] 00:00:00 00:00:00 [facility] 2022-03-03 2022-03-03 Documentgallo UriasHIGHLAND RIDGE [facility] [id number] 00:00:00 00:00:00 [facility] 2022-03-03 2022-03-03 Telephone [facility] [id number] 00:00:00 00:00:00 [facility] 2022-03-03 2022-03-03 Gabriel Lloyd [facility] [id number] 00:00:00 00:00:00 [facility] 2022-03-02 2022-03-02 Telephone Janes Brody [facility] [id number] 00:00:00 00:00:00 [facility] 2022-03-02 2022-03-02 Telephone Abhay Brodytomy [facility] [id number] 00:00:00 00:00:[address] [facility] 2022-02-28 2022-02-28 Lab [facility] [id number] 00:00[facility]00 00:00[facility]00 [facility] 2022-02-28 2022-02-28 Lab [facility] [id number] 00:00:00 00:00:00 [facility] 2022-02-25 2022-02-25 Orders Doctor GABRIEL 1.2.840.114 [id number] Univers 00:00:00 00:00:00 Only Unassigned, HENRIK 350.1.13.10 ity of [place] [facility] 4.2.7.2.686 Joesph as [id number] [address] 2022-02-15 2022-02-15 Letter [facility] 1.2.840.114 [id number] Univers 00:00:00 00:00:00 (Out) [facility] 350.1.13.10 [facility] 4.2.7.2.686 Joesph as TOYA?BLEA [id number] [address] MEDICAL OFFICE [facility] 2022-02-15 2022-02-15 Telephone [facility] [id number] Univers 00:00:00 00:00:00 [facility] 350.1.13.10 [facility] 4.2.7.2.686 Joesph as TOYA?BLEA [id number] [address] MEDICAL OFFICE [facility] 2022-02-08 2022-02-08 Office [facility] 1.2.840.114 [id number] Univers 15:30:00 16:30:39 Visit [facility] 350.1.13.10 [facility] 4.2.7.2.686 Joesph as TOYA?BLEA [id number] [address] MEDICAL OFFICE [facility] 2022-01-21 2022-01-21 Emergency [facility] [id number] [facility] 20:17:00 20:17:00 54 2022-01-21 2022-01-21 Emergency Emergency Carlitos Hernandez [facility] JM [id number] [facility] 20:17:00 20:17:00 54 2022-01-07 2022-01-08 Emergency Heber Arana [facility] [id number] Mati 19:58:00 10:30:[address] [facility] 2022-01-07 2022-01-08 Emergency Heber Arana [facility] [id number] Mati 19:58:00 10:30:00 Health 2021-12-29 2022-01-05 Inpatient EM Aleida HCAB[facility] INTE.02 [id number] [facility] 16:01:00 16:58:00 Farhad [id number] [facility] 2021-12-29 2022-01-05 Inpatient EM Aleida HCAB[facility] INTE.02 [id number] [facility] 16:01:00 16:58:00 Farhad 61 [facility] 2022-01-03 2022-01-03 Outpatient Physician, HCAMN MLAB [id number] [facility] 19:26:00 19:26:00 No 45 [facility] 2021-12-30 2021-12-30 Outpatient WILLIAM Fitzpatrick, LESLIECL LABO [id number] [facility] 09:23:00 09:23:[address] [place] [address] 2021-12-10 2021-12-10 Telephone CARLOS Vega [facility] [id number] [place] 00:00:00 00:00:00 [facility] 350.1.13.58 [facility] [id number] MEDICAL [id number] [place] [address] 3 2021-11-13 2021-12-08 Inpatient E FELIX ESPARZA MED [id number] 12:28:00 19:36:00 HALINA 2021-04-12 2021-04-12 Emergency X ELGIN, [facility] ERT [id number] Univers 21:10:00 21:25:[address] [facility] 2020-09-13 2020-09-15 [facility]patient [facility] [id number] Memoria 18:41:14 00:52:[address] [facility] 2020-09-13 2020-09-15 Inpatient [facility] [id number] Memoria 18:41:14 00:52:[address] [facility] 2020-09-13 2020-09-14 Inpatient E YURY BUSH MED [id number] MHBL 15:07:00 18:52:00 , GURDEEP 2020-09-13 2020-09-14 Outpatient [facility] [id number] 12:41:14 18:52:00 , [place] 2020-09-13 2020-09-13 Outpatient [facility] [id number] 12:41:14 12:41:14 , [place] 2020-01-27 2020-01-27 [facility] [id number] Memoria 21:52:37 23:57:00 r [place] 00 l [facility] 2020-01-27 2020-01-27 [facility] [id number] Memoria 21:52:37 23:57:00 r [place] 00 l [facility] 2020-01-27 2020-01-27 Outpatient Janis-A [facility] [id number] 16:52:37 18:57:00 nderson, 00 Carolyn Results Test Description Test Time Test Comments Results Result Comments Source N-TERMINAL PRO-BNP 2022-04-05 04:05:15 Test Item Value Reference Range Interpretation Comme nts NT-proBNP (test code = 388 pg/mL See_Comment H [Aut omated message] The 2936455447) system which ge nerated this result tra nsmitted reference range : <=125. The reference r yvonne was not used to int erpret this result as modesto l/abnormal. SONIA (test code = SONIA) Biotin has been reported to cause a negative bias, interpret results relative to patient's use of biotin. Lab Interpretation (test Abnormal code = 80041-7) [facility]. METABOLIC PANEL (32534)2022-04-05 03:58:45 Test Item Value Reference Range Interpretation Comments NA (test code = 128 mmol/L 135-145 L 3858147028) K (test code = 2.9 mmol/L 3.5-5 LL 2018745414) CL (test code = 92 mmol/L 98-108 L 6380596544) CO2 TOTAL (test code = 27 mmol/L 23-31 5883453469) AGAP (test code = 2-16 0914699325) BUN (test code = 5 mg/dL 7-23 L 2026989520) GLUCOSE (test code = 126 mg/dL 70-110 H 9865627662) CREATININE (test code = 0.47 mg/dL 0.5-1.04 L 8144239440) TOTAL BILI (test code = 3.1 mg/dL 0.1-1.1 H 1597688463) CALCIUM (test code = 8.2 mg/dL 8.6-10.6 L 2187545690) T PROTEIN (test code = 6.2 g/dL 6.3-8.2 L 4520405909) ALBUMIN (test code = 3.2 g/dL 3.5-5 L 0260733740) ALK PHOS (test code = 155 U/L 34-122 H 8170138336) ALTv (test code = 26 U/L 5-35 1742-6) AST(SGOT) (test code = 84 U/L 13-40 H 3416840324) eGFR (test code = mL/min/1.73m2 6948084888) SONIA (test code = SONIA) Association of [...] tests). Lab Interpretation Abnormal (test code = 99910-6) [facility] WITH [id number] 03:44:21 Test Item Value Reference Range Interpretation Comments [...] as normal/abnormal . HGB (test code = 9.3 g/dL 11.6-15 L 718-7) HCT (test code = 26.8 % 35.7-45.2 L 4544-3) MCV (test code = 96.8 fL 80.6-95.5 H 787-2) MCH (test code = 33.6 pg 25.9-32.8 H 785-6) MCHC (test code = 34.7 g/dL 31.6-35.1 786-4) RDW-SD (test code = 59.7 fL 39-49.9 H 94008-3) RDW-CV (test code = 16.7 % 12-15.5 H 788-0) PLT (test code = See_Comment L [Automated 777-3) message] The sy stem which generated this result transmitted reference range : 166 - 358 10*3/ ?L. The reference r yvonne was not used to interpret this result as normal/abnormal . MPV (test code = 9.6 fL 9.5-12.9 02755-2) IPF % (test code = 2.5 % 1.3-7.7 Platelet count 7134613510) measured by fluorescence method. NRBC/100 WBC (test See_Comment [Automat ed code = 2770452698) message] The system which generated this result transmitted reference range : 0.0 - 10.0 /100 WBCs. The refer ence range was not u sed to interpret th is result as normal/abnormal . NRBC x10^3 (test code See_Comment [Auto mated = 5242449292) message] The s ystem which generated this result transmitted reference range : 10*3/?L. The reference range was not used to interpret this result as normal/abnormal . GRAN MAT (NEUT) % 70.7 % (test code = 770-8) IMM GRAN % (test code 0.40 % = 1311701854) LYMPH % (test code = 19.0 % 736-9) MONO % (test code = 8.9 % 5905-5) EOS % (test code = 0.1 % 713-8) BASO % (test code = 0.9 % 706-2) GRAN MAT x10^3(ANC) 4.91 10*3/uL 1.88-7.09 (test code = 2597914703) IMM GRAN x10^3 (test 0.03 10*3/uL 0-0.06 code = 0616722194) LYMPH x10^3 (test code 1.32 10*3/uL 1.32-3.29 = 731-0) MONO x10^3 (test code 0.62 10*3/uL 0.33-0.92 = 742-7) EOS x10^3 (test code = 0.03-0.39 L 711-2) BASO x10^3 (test code 0.06 10*3/uL 0.01-0.07 = 704-7) Lab Interpretation Abnormal (test code = 25828-1) [facility] [id number] 01:03:40 Test Item Value Reference Range Interpretation Comments CULTURE (BEAKER) (test No fungus isolated in code = 1095) 28 days FUNGUS SMEAR (BEAKER) No fungi seen (test code = 1406) VITAMIN K1, [id number] 21:12:58 Test Item Value Reference Range Interpretation [...] nd its performance characteristics determined by [facility]. I t has not been cleare d or approved by the [place] Food and Drug Administration. This test was perfor med in a CLIA certifie d laboratory and is intended for cl inical purposes.Perfor med By: [facility] [address] [place] [id number] Director: Eunice Covington MD, PhD Lab Interpretation Abnormal (test code = 50286-4) [facility]AL[facility]-ANTITRYPSIN [id number] 20:35:00 Test Item Value Reference Range Interpretation Comments A1A (test code = 155 mg/dL 90-200 To convert to umol/L, 1825-9) multiply mg/dL by 0.185 A1A PHENO (test M1M1 The patient appears to code = 42708-1) have a modesto l phenotype. All M alleles ( including subtypes M1, M2 , and M3) produce normal serum concentrations of uaozv-1-jqndvxp e inhibitor and are not ass ociated with clinical d isease. Caution in inte rpretation is advised if t he patient has been transf used within the previous 21 days.Performed By: [employer] [place] [id number] Director: Alexis zheng MD, PhD [facility]. Sendout- Hemoglobin A1c #[id number] 2022-03-25 16:18:54 Test Item Value Reference Range Interpretation Comments Miscellaneous Test (test See scanned report code = 1271130181) Performing Lab (test code AR = 5200717271) [facility], SERUM OR [id number] 15:59:09 Test Item Value Reference Range Interpretation Comments ALPHA BATSHEVA (test code = 5 mg/L 5.5-18.0 L This test was 1823-4) developed and i ts performance characteristics determined by [facility]. I t has not been cleare d or approved by the [place] Food and Drug Administration. This test was perfor med in a CLIA certified laboratory and is intended for cl inical purposes. GAMMA BATSHEVA (test code = 1.2 mg/L 0.0-6.0 Perfo rmed By: SHANICE 55772-0) [address], [place] [address]Ibvpyyfvnm Director: Eunice Covington MD, PhD Lab Interpretation Abnormal (test code = 36866-5) [facility] A, SERUM OR [id number] 15:59:08 Test Item Value Reference Range Interpretation Comments RET A (test code = <0.06 0.30-1.20 L 2923-1) RET PALM (test code = <0.02 0.00-0.10 32558-6) EDVIN INTER (test code See Note Retin ol greater than = 71595-9) 0.3 mg/L is typ ically associated with [...] intended for cl inical purposes.Perfor med By: SHANICE [address] [place], [place] [address]Rsyxzehjxs Director: Eunice Covington MD, PhD Lab Interpretation Abnormal (test code = 10923-9) [facility] HospitalQUANTIFERON-TB [id number] 19:26:31 Test Item Value Reference Range Interpretation Comments Nil (test code = IU/mL 25117-6) TB1 minus Nil (test IU/mL code = 10890-7) TB2 minus Nil (test IU/mL code = 1466873128) Mitogen minus Nil IU/mL (test code = 86369-6) QFT Gold Plus Negative Negative Result (test code = 37663-0) SONIA (test code = The QuantiFERON? TB [...] advised. For further information, refer to http://www.cdc.gov/mmwr/pd f/rr/dv8504.pdf and https://doi.org/10.1093/ci d/pat183. [facility]-SSA(RO)2022-03-24 17:49:31 Test Item Value Reference Range Interpretation Comments ANTI-SSA(RO) (test code = Negative Negative 0946388445) SONIA (test code = SONIA) Positive - Antibody detected.Negative - No antibody detected. Lab Interpretation (test Normal code = 00077-1) [facility] HospitalANTI-DAMON(SM)2022-03-24 17:49:16 Test Item Value Reference Range Interpretation Comments Anti-Damon (test code = Negative Negative 3839768626) SONIA (test code = SONIA) Positive - Antibody detected.Negative - No antibody detected. Lab Interpretation (test Normal code = 57842-2) [facility]-SSB(LA)2022-03-24 17:49:16 Test Item Value Reference Range Interpretation Comments Anti-SSB(LA) (test code = Negative Negative 0664323281) SONIA (test code = SONIA) Positive - Antibody detected.Negative - No antibody detected. Lab Interpretation (test Normal code = 16402-2) [facility] HospitalSMTH MUSCLE AB,IGG [id number] 11:32:30 Test Item Value Reference Range Interpretation Comments F-ACTIN (SMOOTH See_Comment If F-Actin (Smooth Muscle) MUSCLE) AB, Antibody, IgG i s negative, IGG(BEAKER) (test the Smooth Muscle Antibody code = 53396-3) titer by IFA is not performed.REFER ENCE [...] for A IH is strong.Performe d By: [employer] [place] [address]Ymghvrlans Director: Alexis zheng MD, PhD [Automated mess age] The system which ge nerated this result transmit afshin reference range : 0 - 19 Units. The refe rence range was not used to interpret this result as normal/abnormal . [facility] HospitalMITOCHONDRIAL M2 AB, [id number] 11:32:29 Test Item Value Reference Range Interpretation Comments AMA (test code = See_Comment REFERENCE I NTERVAL: 32437-8) Mitochondrial ( M2) Antibody, IgG ? ?20.0 [...] does not rule out PBC.Performed B y: [employer] [place] [address]Tqbglzdddh Director: Alexis zheng MD, PhD [Automated mess age] The system which ge nerated this result transmit afshin reference range: 0.0 - 24 .9 Units. The reference range was not used to interpret th is result as normal/abnormal . [facility] HospitalANTI-NUCLEAR ANTIBODY-PATHOLOGIST [id number] 23:23:42ANA - Pathologist InterpretationANA HEp-2 IIFA Pathologist [...] MD ?03/23/2022 ?6:23 PM 03/23/2022 6:23 PM [facility] SERVICESUnThe [facility] ANTI-NUCLEAR ANTIBODY [id number] 23:23:11 Test Item Value Reference Range Interpretation Comments EMILIANO Titer by IFA 1:320 (test code = 4273736607) EMILIANO Pattern (test Speckled code = 5730978041) SONIA (test code = SONIA) Anti-nuclear antibodies [...] specimen will be held for 7 days. [facility] (NA, K, CL, CO2, GLUCOSE, BUN, CREATININE, CA)2022-03-22 21:51:21 Test Item Value Reference Range Interpretation Comments NA (test code = 126 mmol/L 135-145 L 2852340598) K (test code = 3.4 mmol/L 3.5-5 L Slight 9307052348) hemolysis CL (test code = 97 mmol/L 98-108 L 5130427521) CO2 TOTAL (test code 26 mmol/L 23-31 = 2243333066) AGAP (test code = 2-16 6202244414) BUN (test code = 5 mg/dL 7-23 L Slight 0534494551) hemolysis GLUCOSE (test code = 145 mg/dL 70-110 H 6283072948) CREATININE (test code 0.28 mg/dL 0.5-1.04 L = 9209183213) CALCIUM (test code = 7.4 mg/dL 8.6-10.6 L 7578544197) eGFR (test code = mL/min/1.73m2 8311163218) SONIA (test code = SONIA) Association of [...] tests). Lab Interpretation Abnormal (test code = 54534-8) [facility] HospitalANTI-NUCLEAR ANTIBODY [id number] 20:35:32 Test Item Value Reference Range Interpretation Comments EMILIANO (test code = Positive Negative A 0790959679) SONIA (test code = SONIA) Negative: ?No Anti-Nuclear Antibodies detected by IFA. Positive: ?EMILIANO IFA screen performed with a 1:80 dilution in adults and a 1:40 dilution in pediatrics. ?A titer is performed and reported separately when the EMILIANO is "Positive" or when "Cytoplasmic staining is observed." Lab Interpretation (test Abnormal code = 89942-4) [facility] HospitalVITAMIN D, [id number] 17:04:22 Test Item Value Reference Range Interpretation Comments VIT D 25OH (test code = 25-80 L 55330-1) SONIA (test code = SONIA) Deficiency: <20 ng/mLInsufficiency: 20-24 ng/mLOptimal: 25-80 ng/mL Lab Interpretation (test Abnormal code = 74234-8) [facility] HospitalBASIC METABOLIC PANEL (NA, K, CL, CO2, GLUCOSE, BUN, CREATININE, CA)2022-03-22 15:40:28 Test Item Value Reference Range Interpretation Comments NA (test code = 129 mmol/L 135-145 L 6249210386) K (test code = 3.5 mmol/L 3.5-5 2689346180) CL (test code = 100 mmol/L 98-108 9993341971) CO2 TOTAL (test code = 30 mmol/L 23-31 3872761767) AGAP (test code = 2-16 L 1182605518) BUN (test code = 5 mg/dL 7-23 L 8959883828) GLUCOSE (test code = 120 mg/dL 70-110 H 3622088044) CREATININE (test code = 0.33 mg/dL 0.5-1.04 L 5731833900) CALCIUM (test code = 7.6 mg/dL 8.6-10.6 L 9443152107) eGFR (test code = mL/min/1.73m2 2121503862) SONIA (test code = SONIA) Association of [...] tests). Lab Interpretation Abnormal (test code = 49826-3) [facility] HospitalIMMUNOGLOBULIN G A M [id number] 14:56:28 Test Item Value Reference Range Interpretation Comments IgA (test code = 4182420902) 736 mg/dL 70-312 H IgG (test code = 1239438489) 1140 mg/dL 636-1600 IgM (test code = 9021958923) 321 mg/dL 56-352 Lab Interpretation (test code = Abnormal 17562-4) [facility] HospitalCERULOPLASMIN2022-09-06 14:55:43 Test Item Value Reference Range Interpretation Comments CERULO (test code = 1531280112) 20 mg/dL 25-63 L Lab Interpretation (test code = Abnormal 30074-2) [facility] HospitalMEASLES [id number] 14:22:17 Test Item Value Reference Range Interpretation Comments MEASLES IgG (test Positive Negative code = 5709909607) SONIA (test code = SONIA) Positive - Indicates that the patient was exposed to Measles through infection or vaccination.Negative - Indicates patient could be susceptible to Measles infection.Equivocal - A second sample should be sent. [facility] HospitalVZV ANTIBODY [id number] 14:22:17 Test Item Value Reference Range Interpretation Comments VZV IgG antibody Positive Negative (test code = 42981-4) SONIA (test code = SONIA) Positive - Indicates the patient was exposed to VZV through infection or vaccination.Negative - Indicates the patient could be susceptible to VZV infection.Equivocal - A second specimen should be sent for testing. [facility] HospitalRUBELLA SCREEN [id number] 14:22:16 Test Item Value Reference Range Interpretation Comments Rubella screen IgG Equivocal Negative (test code = 3830299857) SONIA (test code = SONIA) Positive - Indicates the patient was exposed to Rubella through infection or vaccination.Negative - Indicates the patient could be susceptible to Rubella infection.Equivocal - A second specimen should be sent. [facility] HospitalGALV ONLY - SYPHILIS [id number] 14:21:36 Test Item Value Reference Range Interpretation Comments Syphilis IgG/IgM (test Non-reactive Non-reactive code = 12026-7) SONIA (test code = SONIA) Non-reactive - No serologic evidence of T. pallidum infection. Cannot exclude incubating or early syphilis. Submit a second specimen in 2-4 weeks if syphilis is clinically suspected. Equivocal - Further testing to follow. Reactive - Further testing to follow. Lab Interpretation (test Normal code = 73908-7) [facility] HospitalHSV 1 AND 2 GLYCOPROTEIN G [id number] 14:20:55 Test Item Value Reference Range Interpretation Comments HSV I IgG (test code Positive Negative = 2610793966) HSV II IgG (test code Negative Negative = 0444975868) SONIA (test code = SONIA) Positive - IgG antibody to HSV 1 and/or HSV 2 detected.Negative - No HSV 1 and/or HSV 2 antibody detected.Equivocal - A second sample should be sent. [facility] HospitalTOXOPLASMA IGG [id number] 14:20:39 Test Item Value Reference Range Interpretation Comments TOXO IGG (test code Negative = 3836778326) SONIA (test code = Positive - Indicates SONIA) current or past T. gondii infection.Negative - No serologic evidence of T. gondii infection. Cannot exclude acute T. gondii infection. Equivocal - A second sample should be sent. [facility] HospitalCYTOMEGALOVIRUS ANTIBODY [id number] 14:20:39 Test Item Value Reference Range Interpretation Comments CMV IGG (test code = Positive Negative 7748422669) SONIA (test code = Positive - Indicates SONIA) current or past CMV infection.Negative - Indicates no serologic evidence of CMV infection. Cannot exclude acute CMV infection.Equivocal - A second specimen should be sent for repeat testing. [facility] HospitalEBV NUCLEAR ANTIGEN IGG [id number] 14:18:57 Test Item Value Reference Range Interpretation Comments EBV Nuclear Antigen IgG Positive Negative A (test code = 3667202783) SONIA (test code = SONIA) Positive - IgG to EBV nuclear antigen detected.Negative - No EBV nuclear antigen IgG detected.Equivocal - A second sample should be sent. Lab Interpretation (test Abnormal code = 66219-3) [facility] HospitalCRYPTOCOCCAL ANTIGEN [id number] 12:56:33 Test Item Value Reference Range Interpretation Comments Specimen Tested (test code = Serum 1414963829) Cryptococcal Antigen (test code = Negative Negative 78244-7) [facility] HospitalPREGNANCY TEST, [id number] 23:17:42 Test Item Value Reference Range Interpretation Comments PREG SERUM (test code Negative = 4236402383) SONIA (test code = SONIA) Less than 10 IU/L. ?If low titer or ectopic is suspected, resubmit specimen in 48-72 hours. [facility] HospitalHAV ANTIBODY (IGG AND IGM)2022-03-21 23:05:24 Test Item Value Reference Range Interpretation Comments HAV Total (test code Positive = 3836840310) HAVT Semi-Quantitative (test code = 8556220400) SONIA (test code = SONIA) Indicates past or present infection with HAV or exposure to HAV due to vaccination. [facility] HospitalALPHA [id number] 22:53:06 Test Item Value Reference Range Interpretation Comments AFP (test code = 1.6 ng/mL See_Comment [Automated 2319189213) message] The system which generated this result transmitted reference range : <=7.5. The reference range was not used to interpret this result as normal/abnormal . SONIA (test code = SONIA) Biotin has been reported to cause a negative bias, interpret results relative to patient's use of biotin. Lab Interpretation Normal (test code = 51780-3) [facility] HospitalFREE [id number] 22:34:45 Test Item Value Reference Range Interpretation Comments FREE T4 (test code = See_Comment [Autom ated message] 6189811205) The system [employer] generated this result transmitted ref erence range: 0.78 - 2 .20 ng/dL:. The ref erence range was not u sed to interpret this result as normal/abnor mal. Lab Interpretation (test Normal code = 72837-2) [facility] HospitalTRIIODOTHYRONINE2022-09-05 22:33:44 Test Item Value Reference Range Interpretation Comments T3 (test code = 2136624609) 76.3 ng/dL 97-170 L Lab Interpretation (test code = Abnormal 05568-6) [facility] HospitalIRON [id number] 22:22:25 Test Item Value Reference Range Interpretation Comments IRON (test code = 1614192440) 22 ug/dL 50-160 L TIBC (test code = 3170028669) 129 ug/dL 250-410 L % FE SAT (test code = 8452119522) 17 % 20-50 L Lab Interpretation (test code = Abnormal 40304-5) [facility] HospitalType and Screen - Second separate ABO RH required for UNOS guidelines ONCE [id number] 22:12:00 Test Item Value Reference Range Interpretation Comments ABO & RH (test code A POSITIVE Performe d at [facility] = 20) Laboratory Serv [facility] [address] [facility] [address]Jtsg Free: [phone] A No. [id number] IAT (test code = Negative Performed a t [facility] [place] 1185) Laboratory Serv [facility] [address]Fnqy Free: [phone] A No. [id number] [facility] HospitalBASI METABOLIC PANEL (NA, K, CL, CO2, GLUCOSE, BUN, CREATININE, CA)2022-03-21 21:48:18 Test Item Value Reference Range Interpretation Comments NA (test code = 127 mmol/L 135-145 L 5189245925) K (test code = 3.8 mmol/L 3.5-5 9697642020) CL (test code = 98 mmol/L 98-108 2050869310) CO2 TOTAL (test code = 28 mmol/L 23-31 6198476906) AGAP (test code = 2-16 L 5215621023) BUN (test code = 7-23 L 1220210288) GLUCOSE (test code = 132 mg/dL 70-110 H 2419604352) CREATININE (test code = 0.31 mg/dL 0.5-1.04 L 5509348952) CALCIUM (test code = 7.6 mg/dL 8.6-10.6 L 2525499554) eGFR (test code = mL/min/1.73m2 2012872815) SONIA (test code = SONIA) Association of [...] tests). Lab Interpretation Abnormal (test code = 73491-5) [facility] HospitalOSMOLALITY, SERUM OR [id number] 19:03:35 Test Item Value Reference Range Interpretation Comments OSMOLALITY (test code = See_Comment L [Au tomated message] 2692-2) The system [employer] generated this result transmitted ref erence range: 278 - 30 5 mOsm/kg. The reference range was not used to int erpret this result as normal/abnormal . Lab Interpretation (test Abnormal code = 73564-8) [facility] HospitalFERRITIN [id number] 17:27:53 Test Item Value Reference Range Interpretation Comments FERRITIN (test code = 128.0 ng/mL 6-137 7558234361) SONIA (test code = SONIA) Biotin has been reported to cause a negative bias, interpret results relative to patient's use of biotin. Lab Interpretation (test Normal code = 03069-6) [facility] HospitalTHYROID STIMULATING [id number] 17:23:52 Test Item Value Reference Range Interpretation Comments TSH (test code = See_Comment [Automated message] 9669108044) The system [employer] generated this result transmitted ref erence range: 0.45 - 4 .70 mIU/L. The refe rence range was not u sed to interpret this result as normal/abnor mal. Lab Interpretation (test Normal code = 02996-5) [facility] HospitalLIPID PANEL (65204)(TOTAL CHOLESTEROL, TRIGLYCERIDES, HDL)2022-03-21 16:49:10 Test Item Value Reference Range Interpretation Comments CHOL (test code = 122 mg/dL 120-200 8081813350) HDL (test code = 22 mg/dL See_Comment L [Automated message] 1742891000) The system [employer] generated this result transmit afshin reference range : >=50. The refer ence range was not u sed to interpret th is result as normal/abnormal . HDLC RATIO (test code = See_Comment H [Au tomated message] 3704025810) The system [employer] generated this result transmit afshin reference range : <=4.5. The refe rence range was not u sed to interpret th is result as normal/abnormal . TRIG (test code = 74 mg/dL 30-170 0351340735) LDL CHOL (test code = 85 mg/dL See_Comment [Auto mated message] 95988-6) The system [employer] generated this result transmit afshin reference range : <=160. The refe rence range was not u sed to interpret th is result as normal/abnormal . VLDL (test code = 15 mg/dL 5-60 7968338328) Lab Interpretation (test Abnormal code = 98179-7) [facility] HospitalGAMMA [id number] 16:49:10 Test Item Value Reference Range Interpretation Comments GGT (test code = 4200811970) 54 U/L 13-40 H Lab Interpretation (test code = Abnormal 94256-7) [facility] HospitalBASI METABOLIC PANEL (NA, K, CL, CO2, GLUCOSE, BUN, CREATININE, CA)2022-03-21 15:38:30 Test Item Value Reference Range Interpretation Comments NA (test code = 127 mmol/L 135-145 L 6154437380) K (test code = 3.9 mmol/L 3.5-5 9904556564) CL (test code = 98 mmol/L 98-108 4344669263) CO2 TOTAL (test code = 31 mmol/L 23-31 6588693882) AGAP (test code = 2-16 L 1141778539) BUN (test code = 7-23 L 0756568136) GLUCOSE (test code = 109 mg/dL 70-110 0436208867) CREATININE (test code = 0.30 mg/dL 0.5-1.04 L 2084699494) CALCIUM (test code = 8.2 mg/dL 8.6-10.6 L 7244795115) eGFR (test code = mL/min/1.73m2 5785719471) SONIA (test code = SONIA) Association of [...] tests). Lab Interpretation Abnormal (test code = 25963-6) [facility]. METABOLIC PANEL (11094)2022-03-21 03:00:01 Test Item Value Reference Range Interpretation Comments NA (test code = 119 mmol/L 135-145 LL 6433863829) K (test code = 3.9 mmol/L 3.5-5 2335877527) CL (test code = 92 mmol/L 98-108 L 9947902539) CO2 TOTAL (test code = 26 mmol/L 23-31 1049333695) AGAP (test code = 2-16 L 8021124554) BUN (test code = 5 mg/dL 7-23 L 6203139232) GLUCOSE (test code = 126 mg/dL 70-110 H 9232549633) CREATININE (test code = 0.29 mg/dL 0.5-1.04 L 7042692586) TOTAL BILI (test code = 4.0 mg/dL 0.1-1.1 H [id number]) CALCIUM (test code = 8.0 mg/dL 8.6-10.6 L 5094154689) T PROTEIN (test code = 6.4 g/dL 6.3-8.2 8878431668) ALBUMIN (test code = 2.6 g/dL 3.5-5 L 7813212327) ALK PHOS (test code = 129 U/L 34-122 H 7943493700) ALTv (test code = 32 U/L 5-35 1742-6) AST(SGOT) (test code = 51 U/L 13-40 H 8368465060) eGFR (test code = mL/min/1.73m2 6585400131) SONIA (test code = SONIA) Association of [...] tests). Lab Interpretation Abnormal (test code = 54009-6) [facility] [id number] 02:48:49 Test Item Value Reference Interpretation Comments Range TROPONIN I (test 0.006 ng/mL See_Comment [Automated code = 3290835855) message] The system which generated this result [...] biotin. Lab Interpretation Normal (test code = 56732-8) [facility] [id number]-[id number] 02:48:49 Test Item Value Reference Range Interpretation Comments NT-proBNP (test code 228 pg/mL See_Comment H [Autom ated = 1205209458) message] The system which generated this result transmitted reference range : <=125. The reference range was not used to interpret this result as normal/abnormal . SONIA (test code = SONIA) Biotin has been reported to cause a negative bias, interpret results relative to patient's use of biotin. Lab Interpretation Abnormal (test code = 97212-3) [facility]ETHANOL[facility] 02:38:02 ALCOHOL<10mg/dL03/20/2022 9:38 PM CDTUTMB LABORATORY SERVICESToxic Greater than or equal to 80 mg/dL. NOTE: Whole blood values are approximately 10% to 15% lower than serum and plasma.[facility] 02:35:06 Test Item Value Reference Range Interpretation Comments LIPASE (test code = 4875087368) 31 U/L 0-220 Lab Interpretation (test code = Normal 68886-2) [facility]CB WITH [id number] 02:27:08 Test Item Value Reference Range Interpretation [...] (test code = 65.5 fL 39-49.9 H 71867-9) RDW-CV (test code = 18.2 % 12-15.5 H 788-0) PLT (test code = See_Comment L [Automated 777-3) message] The sy stem which generated this result transmitted reference range : 166 - 358 10*3/ ?L. The reference r yvonne was not used to interpret this result as normal/abnormal . MPV (test code = 10.3 fL 9.5-12.9 92038-2) NRBC/100 WBC (test See_Comment [Automat ed code = 1076370313) message] The system which generated this result transmitted reference range : 0.0 - 10.0 /100 WBCs. The refer ence range was not u sed to interpret th is result as normal/abnormal . NRBC x10^3 (test code See_Comment [Auto mated = 7554468928) message] The s ystem which generated this result transmitted reference range : 10*3/?L. The reference range was not used to interpret this result as normal/abnormal . GRAN MAT (NEUT) % 70.3 % (test code = 770-8) IMM GRAN % (test code 0.30 % = 8147595785) LYMPH % (test code = 17.8 % 736-9) MONO % (test code = 9.2 % 5905-5) EOS % (test code = 2.2 % 713-8) BASO % (test code = 0.2 % 706-2) GRAN MAT x10^3(ANC) 4.20 10*3/uL 1.88-7.09 (test code = 0749554281) IMM GRAN x10^3 (test 0-0.06 code = 5876506358) LYMPH x10^3 (test code 1.06 10*3/uL 1.32-3.29 L = 731-0) MONO x10^3 (test code 0.55 10*3/uL 0.33-0.92 = 742-7) EOS x10^3 (test code = 0.13 10*3/uL 0.03-0.39 711-2) BASO x10^3 (test code 0.01-0.07 = 704-7) Lab Interpretation Abnormal (test code = 03168-4) [facility] + [id number] 01:35:09 Test Item Value Reference Range Interpretation Comments Result (test code = 2+ Marybeth albicans A 6463-4) Fungus Smear (test code = No fungi seen 1406) Lab Interpretation (test Abnormal code = 21154-3) [facility] + [id number] 01:35:09 Test Item Value Reference Range Interpretation Comments Result (test code = 2+ Marybeth albicans A 6463-4) Fungus Smear (test code = No fungi seen 1406) Lab Interpretation (test Abnormal code = 19029-4) [facility] + [id number] 01:35:09 Test Item Value Reference Range Interpretation Comments Result (test code = 2+ Marybeth albicans A 6463-4) Fungus Smear (test code = No fungi seen 1406) Lab Interpretation (test Abnormal code = 36074-7) [facility] + [id number] 01:35:09 Test Item Value Reference Range Interpretation Comments Result (test code = 2+ Marybeth albicans A 6463-4) Fungus Smear (test code = No fungi seen 1406) Lab Interpretation (test Abnormal code = 17597-8) [facility] + [id number] 01:35:09 Test Item Value Reference Range Interpretation Comments CULTURE (BEAKER) A 2+ Marybeth albicans (test code = 1095) FUNGUS SMEAR No fungi seen (BEAKER) (test code = 1406) FUNGUS CULTURE + [id number] 00:06:37 Test Item Value Reference Range Interpretation [...] Interpretation Comments POCT GLU (test code = 6998051748) 114 mg/dL 70-110 H Lab Interpretation (test code = Abnormal 66554-2) [facility] GLUCOSE (AUTOMATED)2022-03-16 13:29:50 Test Item Value Reference Range Interpretation Comments POCT GLU (test code = 6582911078) 90 mg/dL 70-110 Lab Interpretation (test code = Normal 80646-0) [facility] GLUCOSE (AUTOMATED)2022-03-16 02:07:22 Test Item Value Reference Range Interpretation Comments POCT GLU (test code = 4911822563) 148 mg/dL 70-110 H Lab Interpretation (test code = Abnormal 79233-8) [facility] GLUCOSE (AUTOMATED)2022-03-15 21:47:06 Test Item Value Reference Range Interpretation Comments POCT GLU (test code = 4410073171) 146 mg/dL 70-110 H Lab Interpretation (test code = Abnormal 88559-2) [facility] GLUCOSE (AUTOMATED)2022-03-15 16:39:40 Test Item Value Reference Range Interpretation Comments POCT GLU (test code = 1126602904) 126 mg/dL 70-110 H Lab Interpretation (test code = Abnormal 91643-0) [facility] GLUCOSE (AUTOMATED)2022-03-15 13:02:21 Test Item Value Reference Range Interpretation Comments POCT GLU (test code = 4506634944) 101 mg/dL 70-110 Lab Interpretation (test code = Normal 68737-4) [facility] GLUCOSE (AUTOMATED)2022-03-15 02:07:01 Test Item Value Reference Range Interpretation Comments POCT GLU (test code = 8667616069) 105 mg/dL 70-110 Lab Interpretation (test code = Normal 03735-4) [facility] GLUCOSE (AUTOMATED)2022-03-14 21:38:03 Test Item Value Reference Range Interpretation Comments POCT GLU (test code = 4199940707) 117 mg/dL 70-110 H Lab Interpretation (test code = Abnormal 22803-4) [facility] GLUCOSE (AUTOMATED)2022-03-14 16:42:29 Test Item Value Reference Range Interpretation Comments POCT GLU (test code = 6137126110) 95 mg/dL 70-110 Lab Interpretation (test code = Normal 85679-1) [facility] GLUCOSE (AUTOMATED)2022-03-14 12:54:32 Test Item Value Reference Range Interpretation Comments POCT GLU (test code = 9947076809) 85 mg/dL 70-110 Lab Interpretation (test code = Normal 30821-1) [facility] GLUCOSE (AUTOMATED)2022-03-14 12:24:08 Test Item Value Reference Range Interpretation Comments POCT GLU (test code = 2087883508) 94 mg/dL 70-110 Lab Interpretation (test code = Normal 22181-3) [facility] GLUCOSE (AUTOMATED)2022-03-14 01:26:20 Test Item Value Reference Range Interpretation Comments POCT GLU (test code = 1615910803) 104 mg/dL 70-110 Lab Interpretation (test code = Normal 75073-6) [facility] GLUCOSE (AUTOMATED)2022-03-13 20:48:41 Test Item Value Reference Range Interpretation Comments POCT GLU (test code = 0463754751) 177 mg/dL 70-110 H Lab Interpretation (test code = Abnormal 95020-1) [facility]. METABOLIC PANEL (07204)2022-03-13 04:28:13 Test Item Value Reference Range Interpretation Comments NA (test code = 133 mmol/L 135-145 L 1137654439) K (test code = 3.0 mmol/L 3.5-5 L 3469535224) CL (test code = 107 mmol/L 98-108 7492109503) CO2 TOTAL (test code = 22 mmol/L 23-31 L 6541780731) AGAP (test code = 2-16 7745263512) BUN (test code = 6 mg/dL 7-23 L 3527925359) GLUCOSE (test code = 110 mg/dL 70-110 5094044359) CREATININE (test code = 0.24 mg/dL 0.5-1.04 L 0258741163) TOTAL BILI (test code = 6.1 mg/dL 0.1-1.1 H 4129770244) CALCIUM (test code = 7.2 mg/dL 8.6-10.6 L 9143622667) T PROTEIN (test code = 5.0 g/dL 6.3-8.2 L 9393439096) ALBUMIN (test code = 2.3 g/dL 3.5-5 L 3882788326) ALK PHOS (test code = 116 U/L 34-122 7627976005) ALTv (test code = 46 U/L 5-35 H 1742-6) AST(SGOT) (test code = 54 U/L 13-40 H 3174549902) eGFR (test code = mL/min/1.73m2 8648395814) SONIA (test code = SONIA) Association of [...] tests). Lab Interpretation Abnormal (test code = 36401-4) [facility] HospitalProthrombin Time / [id number] 03:56:33 Test Item Value Reference Range Interpretation [...] tions. Lab Interpretation (test Abnormal code = 78305-0) [facility]TR[facility] [id number] 03:48:32 Test Item Value Reference Interpretation Comments Range TROPONIN I (test 0.019 ng/mL See_Comment [Automated code = 5051895004) message] The system which generated this result [...] biotin. Lab Interpretation Normal (test code = 06657-7) [facility] WITH [id number] 03:48:12 Test Item Value Reference Range Interpretation [...] (test code = 88.3 fL 39-49.9 H 33253-3) RDW-CV (test code = 23.2 % 12-15.5 H 788-0) PLT (test code = See_Comment L [Automated 777-3) message] The sy stem which generated this result transmitted reference range : 166 - 358 10*3/ ?L. The reference r yvonne was not used to interpret this result as normal/abnormal . MPV (test code = 11.5 fL 9.5-12.9 61814-2) IPF % (test code = 5.0 % 1.3-7.7 Platelet count 0492694202) measured by fluorescence method. NRBC/100 WBC (test See_Comment [Automat ed code = 2884697712) message] The system which generated this result transmitted reference range : 0.0 - 10.0 /100 WBCs. The refer ence range was not u sed to interpret th is result as normal/abnormal . NRBC x10^3 (test code See_Comment [Auto mated = 1534458332) message] The s ystem which generated this result transmitted reference range : 10*3/?L. The reference range was not used to interpret this result as normal/abnormal . GRAN MAT (NEUT) % 85.3 % (test code = 770-8) IMM GRAN % (test code 0.60 % = 3111061550) LYMPH % (test code = 8.5 % 736-9) MONO % (test code = 5.4 % 5905-5) EOS % (test code = 0.1 % 713-8) BASO % (test code = 0.1 % 706-2) GRAN MAT x10^3(ANC) 9.25 10*3/uL 1.88-7.09 H (test code = 7464751463) IMM GRAN x10^3 (test 0.06 10*3/uL 0-0.06 code = 4910478667) LYMPH x10^3 (test code 0.92 10*3/uL 1.32-3.29 L = 731-0) MONO x10^3 (test code 0.59 10*3/uL 0.33-0.92 = 742-7) EOS x10^3 (test code = 0.03-0.39 L 711-2) BASO x10^3 (test code 0.01-0.07 = 704-7) Lab Interpretation Abnormal (test code = 39113-8) [facility]AL RHE-[id number] 03:45:31 Test Item Value Reference Range Interpretation Comments NT-proBNP (test code 1460 pg/mL See_Comment H [Autom ated = 4862501374) message] The system which generated this result transmitted reference range : <=125. The reference range was not used to interpret this result as normal/abnormal . SONIA (test code = SONIA) Biotin has been reported to cause a negative bias, interpret results relative to patient's use of biotin. Lab Interpretation Abnormal (test code = 38157-2) [facility] 03:36:13 Test Item Value Reference Range Interpretation Comments LIPASE (test code = 4755496149) 65 U/L 0-220 Lab Interpretation (test code = Normal 43168-1) [facility] HospitalAMMONIA, [id number] 03:21:51 Test Item Value Reference Range Interpretation Comments AMMONIA (test code = 3795700032) 43 umol/L 9-33 H Lab Interpretation (test code = Abnormal 88870-6) [facility]ECG[facility]EKG Ejlxueffxqwokj7144-62-92 08:36:10 Test Item Value Reference Range Interpretation [...] criteria. Lab Interpretation Abnormal (test code = 63785-6) [facility]KG Qkgfykrbgvdfxr4101-50-78 08:36:10 Test Item Value Reference Range Interpretation [...] criteria. Lab Interpretation Abnormal (test code = 94642-5) [facility]EC[facility]EKG Bsbblebhhinfnh9762-92-14 08:36:10 Test Item Value Reference Range Interpretation [...] criteria. Lab Interpretation Abnormal (test code = 91662-0) [facility]EC[facility]EKG Yvuztatcxezdgh5613-43-65 08:36:10 Test Item Value Reference Range Interpretation [...] criteria. Lab Interpretation Abnormal (test code = 21947-5) [facility] CenterCOMPREHENSIVE METABOLIC [id number] 02:32:58 Test Item Value Reference Range Interpretation [...] not appl icable for dialysis patien ts Sonar Watchstander ID - BSSpecimen moderately ictericCBC W/PLT COUNT & AUTO [id number] 01:21:22 Test Item Value Reference Range Interpretation [...] = 2801) RAD, CHEST, 1 VIEW, NON [id number] 11:18:00Reason for exam:- >intubatedShould this be performed at the bedside?->Yes [facility] : 1985 Sex: FFINAL REPORT INDICATION: intubated COMPARISON: 03/09/2022 TECHNIQUE: Single frontal view of the chest. FINDINGS: Lines, tubes, and devices: None.Lungs and pleura: No focal consolidation. Scattered linear atelectasis is present. No pneumothorax.Heart and mediastinum: Normal heart size. Unremarkable mediastinal contours.Osseous structures: No acute abnormality. Moderate rightward convexity of the thoracic spine. The patient is rotated to the right.Other: None. IMPRESSION: No acute intrathoracic abnormality. Signed: Livan Radford Verified Date/Time: 03/11/2022 11:18:05 Reading Location: [facility] Radiology Reading Room POC-Glucose [id number] 08:49:15 Test Item Value Reference Range Interpretation Comments POC-Glucose Meter (test 110 mg/dL 70-110 : TE STED AT [facility] code = 1538) [address] [place] [address], [facility] 30: Sonar Watchstander/Techni shantelle ID = [id number] for BHARAT, MARI Lab Interpretation (test Normal code = 58425-8) [facility] CenterPO-Glucose vljuo1979-21-36 08:49:15 Test Item Value Reference Range Interpretation Comments POC-Glucose Meter (test 110 mg/dL 70-110 : TE STED AT [facility] code = 1538) [address] [place] [address], [facility] 30: Sonar Watchstander/Techni shantelle ID = [id number] for BAHRAT, MARI Lab Interpretation (test Normal code = 85094-1) [facility] CenterPOC-Glucose matqa9003-42-81 08:49:15 Test Item Value Reference Range Interpretation Comments POC-Glucose Meter (test 110 mg/dL 70-110 : TE STED AT [facility] code = 1538) [address] [place] [address], 770 30: Sonar Watchstander/Techni shantelle ID = [id number] for MARI NICHOLSON Lab Interpretation (test Normal code = 71143-4) [facility]-Glucose qnmdk7713-68-15 08:49:15 Test Item Value Reference Range Interpretation Comments POC-Glucose Meter (test 110 mg/dL 70-110 : TE STED AT [facility] code = 1538) [address] [facility], 770 30: Sonar Watchstander/Techni shantelle ID = [id number] for MARI NICHOLSON Lab Interpretation (test Normal code = 98236-2) [facility]-GLUCOSE [id number] 08:49:15 Test Item Value Reference Range Interpretation Comments POC-GLUCOSE METER 110 mg/dL 70-110 : TESTED A T [facility] 6720 (BEAKER) (test code = [facility], 1538) [address]: Sonar Watchstander/Techni shantelle ID = [id number] for SA MARI HUNTER COMPREHENSIVE METABOLIC [id number] 06:43:06 Test Item Value Reference Range Interpretation [...] not appl icable for dialysis patien ts Sonar Watchstander ID - DREAD MSpecimen moderately sthvmtkATQYUXSVRT5521-98-92 06:40:23 Test Item Value Reference Range Interpretation Comments PHOSPHORUS (BEAKER) (test code = 2.1 mg/dL 2.3-4.7 L 604) Sonar Watchstander ID - DREAD LNOWAEDDDD5927-68-84 06:40:22 Test Item Value Reference Range Interpretation Comments MAGNESIUM (BEAKER) (test code = 1.7 mg/dL 1.6-2.6 627) Sonar Watchstander ID - DREAD MCBC (HEMOGRAM ONLY)2022-03-11 05:30:29 [...] (BEAKER) (test code = 413) Lactic Acid, Feptqiga2668-82-48 05:29:47 Test Item Value Reference Range Interpretation Comments Lactate, Art (test code = 1.1 mmol/L 0.5-2.2 2874) SONIA (test code = SONIA) Sonar Watchstander ID - DREAD Brennan moderately icteric Lab Interpretation (test Normal code = 17835-6) [facility] CenterL[facility] Acid, Jvnmttvq8718-63-15 05:29:47 Test Item Value Reference Range Interpretation Comments Lactate, Art (test code = 1.1 mmol/L 0.5-2.2 2874) SONIA (test code = SONIA) Sonar Watchstander ID - DREAD Zhaoecimealyson moderately icteric Lab Interpretation (test Normal code = 98525-9) [facility] CenterLactic Acid, Pyjqeonr0997-05-17 05:29:47 Test Item Value Reference Range Interpretation Comments Lactate, Art (test code = 1.1 mmol/L 0.5-2.2 2874) SONIA (test code = SONIA) Sonar Watchstander ID - DREAD Zhaoecimealyson moderately icteric Lab Interpretation (test Normal code = 31225-6) [facility] CenterLactic Acid, Ogpbvlrc7235-80-42 05:29:47 Test Item Value Reference Range Interpretation Comments Lactate, Art (test code = 1.1 mmol/L 0.5-2.2 2874) SONIA (test code = SONIA) Sonar Watchstander ID - DREAD Zhaoecimealyson moderately icteric Lab Interpretation (test Normal code = 98421-6) [facility] CenterLACTIC ACID, [id number] 05:29:47 Test Item Value Reference Range Interpretation Comments LACTATE BLOOD ARTERIAL (2) 1.1 mmol/L 0.5-2.2 (BEAKER) (test code = 2874) Sonar Watchstander ID - DREAD Zhaoecimen moderately gufntxrLSIQILBDTR0566-32-27 05:28:06 Test Item Value Reference Range Interpretation Comments FIBRINOGEN LEVEL (BEAKER) (test 177 mg/dl 225-434 L code = 658) PROTHROMBIN TIME/[id number] 05:27:39 Test Item Value Reference Range Interpretation Comments PROTIME (BEAKER) 19.4 seconds 11.9-14.2 H (test code = 759) INR (BEAKER) (test 1.75 See_Comment [Automat ed message] code = 370) The system [employer] generated this result transmitted ref erence range: <=5.90. The reference range was not used to int erpret this result as normal/abnormal . RECOMMENDED COUMADIN/WARFARIN INR THERAPY RANGESSTANDARD DOSE: 2.0 - 3.0 Includes: PROPHYLAXIS for venous thrombosis, systemic embolization; TREATMENT for venous thrombosis and/or pulmonary embolus.HIGH RISK: Target INR is 2.5-3.5 for patients with mechanical heart valves.CALCIUM, [id number] 05:20:20 Test Item Value Reference Range Interpretation Comments CALCIUM IONIZED (BEAKER) (test 1.11 mmol/L 1.12-1.27 L code = 698) PH, BLOOD (BEAKER) (test code = 7.48 1810) POCT-GLUCOSE [id number] 21:04:54 Test Item Value Reference Range Interpretation Comments POC-GLUCOSE METER 123 mg/dL 70-110 H : TESTED A T [facility] 6720 (BEAKER) (test code = [facility], 1538) [address]: Sonar Watchstander/Techni shantelle ID = [id number] for AMERICO FINK POCT-GLUCOSE [id number] 17:23:30 Test Item Value Reference Range Interpretation Comments POC-GLUCOSE METER 102 mg/dL 70-110 : TESTED A T [facility] 6720 (BEAKER) (test code = [facility], 1538) [address]: Sonar Watchstander/Techni shantelle ID = [id number] for JASWINDER MARTE POCT-GLUCOSE [id number] 13:29:05 Test Item Value Reference Range Interpretation Comments POC-GLUCOSE METER 82 mg/dL 70-110 : TESTED A T [facility] [address] (BEAKER) (test code = [facility] [address], 1538) [address]: Sonar Watchstander/Techni shantelle ID = [id number] for JASWINDER RESTREPO COMPREHENSIVE METABOLIC [id number] 07:50:34 Test Item Value Reference Range Interpretation [...] not appl icable for dialysis patien ts Sonar Watchstander ID Kt [place] LSpecimen moderately ictericCBC (HEMOGRAM ONLY)2022-03-10 07:37:28 Test [...] 0-0 CELLS (BEAKER) (test code = 413) ZWPWFMVTH8946-42-39 07:32:21 Test Item Value Reference Range Interpretation Comments MAGNESIUM (BEAKER) (test code = 1.7 mg/dL 1.6-2.6 627) Sonar Watchstander ID Kt [place] GJWJCIHCIMN9765-12-26 07:32:21 Test Item Value Reference Range Interpretation Comments PHOSPHORUS (BEAKER) (test code = 2.6 mg/dL 2.3-4.7 604) Sonar Watchstander ID Kt [place] FEFCLFNOOFF2359-80-87 07:17:17 Test Item Value Reference Range Interpretation Comments FIBRINOGEN LEVEL (BEAKER) (test 133 mg/dl 225-434 L code = 658) LACTIC ACID, YBIPWNME0926-26-55 07:15:38 Test Item Value Reference Range Interpretation Comments LACTATE BLOOD ARTERIAL (2) 1.1 mmol/L 0.5-2.2 (BEAKER) (test code = 2874) Sonar Watchstander ID - GEOVANNA LSpecimen moderately ictericCALCIUM, [id number] 07:14:48 Test Item Value Reference Range Interpretation Comments CALCIUM IONIZED (BEAKER) (test 0.92 mmol/L 1.12-1.27 L code = 698) PH, BLOOD (BEAKER) (test code = 7.53 1810) PROTHROMBIN TIME/[id number] 07:11:53 Test Item Value Reference Range Interpretation Comments PROTIME (BEAKER) 21.0 seconds 11.9-14.2 H (test code = 759) INR (BEAKER) (test 1.94 See_Comment [Automat ed message] code = 370) The system [employer] generated this result transmitted ref erence range: <=5.90. The reference range was not used to int erpret this result as normal/abnormal . RECOMMENDED COUMADIN/WARFARIN INR THERAPY RANGESSTANDARD DOSE: 2.0 - 3.0 Includes: PROPHYLAXIS for venous thrombosis, systemic embolization; TREATMENT for venous thrombosis and/or pulmonary embolus.HIGH RISK: Target INR is 2.5-3.5 for patients with mechanical heart valves.POCT-GLUCOSE [id number] 21:24:08 Test Item Value Reference Range Interpretation Comments POC-GLUCOSE METER 94 mg/dL 70-110 : TESTED A T [facility] 6720 (BEAKER) (test code = [facility] [address], 1538) [address]: Sonar Watchstander/Techni shantelle ID = [id number] for AMERICO MCKENZIE SARS-CoV2/RT-PCR (Asymptomatic ONLY)2022-03-09 14:39:13 Test Item Value Reference Range Interpretation Comments SARS-COV2/RT-PCR Negative Not Detected, (test code = Negative, See 35812-6) external report for linked test SARS-COV-2 [facility] PERFORM[facility] (test code = 99457-1) SONIA (test code = Negative result for [...] of the Act. Fact Sheet for Healthcare Providers:https://www.[employer]/sites/default/f real/product/documents/F act_Sheet_HC_Providers_L cbo_EYOO-QeN-5.pdf Fact Sheet for Healthcare Patients:https://www.[employer]/sites/default/fi les/product/documents/Fa ct_Sheet_Patients_Lyra_S ARS-CoV-2.pdf Performing Laboratory:[facility] [place] [address] [facility]omatic ONLY[facility]2022-03-09 14:39:13 Test Item Value Reference Range Interpretation Comments SARS-COV2/RT-PCR Negative Not Detected, (test code = Negative, See 22601-4) external report for linked test SARS-COV-2 [facility] (test code = 75986-7) SONIA (test code = Negative result for [...] of the Act. Fact Sheet for Healthcare Providers:https://www.[employer]el.[employer]/sites/default/f real/product/documents/F act_Sheet_HC_Providers_L tls_ARRD-WsJ-3.pdf Fact Sheet for Healthcare Patients:https://www.[employer] del.[employer]/sites/default/fi les/product/documents/Fa ct_Sheet_Patients_Lyra_S ARS-CoV-2.pdf Performing Laboratory:[facility] [place] [address] [facility] (Asymptomatic ONLY)2022-03-09 14:39:13 Test Item Value Reference Range Interpretation Comments SARS-COV2/RT-PCR Negative Not Detected, (test code = Negative, See 10248-5) external report for linked test SARS-COV-2 [facility] (test code = 57726-5) SONIA (test code = Negative result for [...] of the Act. Fact Sheet for Healthcare Providers:https://www.Happy [employer] Pal ideLocalMed.[employer]/sites/default/f real/product/documents/F act_Sheet_HC_Providers_L auf_LTBH-LtD-4.pdf Fact Sheet for Healthcare Patients:https://www.[employer] del.[employer]/sites/default/fi les/product/documents/Fa ct_Sheet_Patients_Lyra_S ARS-CoV-2.pdf Performing Laboratory:[facility] [place] [address] [facility] (Asymptomatic ONLY)2022-03-09 14:39:13 Test Item Value Reference Range Interpretation Comments SARS-COV2/RT-PCR Negative Not Detected, (test code = Negative, See 90105-4) external report for linked test SARS-COV-2 [facility] (test code = 13636-9) SONIA (test code = Negative result for [...] of the Act. Fact Sheet for Healthcare Providers:https://www.[employer].Hazelcast/sites/default/f real/product/documents/F act_Sheet_HC_Providers_L gri_NZGC-DjY-1.pdf Fact Sheet for Healthcare Patients:https://www.SnapSense/sites/default/fi les/product/documents/Fa ct_Sheet_Patients_Lyra_S ARS-CoV-2.pdf Performing Laboratory:[facility] [place] [address] [facility] ([facility] REF LAB[facility])2022-03-09 14:39:13 Test Item Value Reference Range Interpretation Comments SARS-COV2/RT-PCR (test Negative Not Detected, Negative, code = 3453485) See external report for linked test SARS-COV-2 PERFORMING LAB [facility] (test code = 6797199) Negative result for this test determines that [...] of the Act.Fact Sheet for Healthcare Prov iders:https://www.TimZon/sites/default/files/product/documents/Fact_Sheet_HC _Fhmlkjcvc_Qzrz_AFDG-QzX-2.pdfFact Sheet for Healthcare Patients:https://www.[employer]/sites/default/files/product/docume nts/Dagd_Ntabp_Fxodhuyj_Hsbp_TJAT-IgQ-4.pdfPerforming Laboratory:[facility], [place] [address]VHQK-MEJAJFB METER 2022-03-09 11:19:10 Test Item Value Reference Range Interpretation Comments POC-GLUCOSE METER 91 mg/dL 70-110 : TESTED A T [facility] 6720 (BEFlexiroam) (test code = [facility], 1538) 365[address]: Sonar Watchstander/Techni shantelle ID = [id number] for Berny Marinelli POCT-GLUCOSE [id number] 07:44:02 Test Item Value Reference Range Interpretation Comments POC-GLUCOSE METER 89 mg/dL 70-110 : TESTED A T [facility] 6720 (HTP) (test code = [facility], 1538) 21711: Sonar Watchstander/Techni shantelle ID = [id number] for Ngrafaela enBerny Sabrina Gottlieb RAD, CHEST, 1 VIEW, NON [id number] 07:35:00Reason for exam:- >intubatedShould this be performed at the bedside?->Yes [facility] : 1985 Sex: FFINAL REPORT [...] No acute intrathoracic abnormality. Signed: Livan Radford MDReport Verified Date/Time: 03/09/2022 07:35:34 Reading Location[facility] RadiologyReading Room REHENSIVE METABOLIC [id number] 06:24:34 Test Item Value Reference Range Interpretation [...] not appl icable for dialysis patien ts Sonar Watchstander ID - DREAD MSpecimen moderately ypgdqbzJEWFHMNUC1994-97-40 06:19:17 Test Item Value Reference Range Interpretation Comments MAGNESIUM (BEAKER) (test code = 1.6 mg/dL 1.6-2.6 627) Sonar Watchstander ID - DREAD [id number] 06:19:17 Test Item Value Reference Range Interpretation Comments PHOSPHORUS (BEAKER) (test code = 2.9 mg/dL 2.3-4.7 604) Sonar Watchstander ID - DREAD [id number] 05:59:03 Test Item Value Reference Range Interpretation Comments FIBRINOGEN LEVEL (BEAKER) (test 142 mg/dl 225-434 L code = 658) PROTHROMBIN TIME/[id number] 05:53:35 Test Item Value Reference Range Interpretation Comments PROTIME (BEAKER) 21.4 seconds 11.9-14.2 H (test code = 759) INR (BEAKER) (test 1.99 See_Comment [Automat ed message] code = 370) The system [employer] generated this result transmitted ref erence range: <=5.90. The reference range was not used to int erpret this result as normal/abnormal . RECOMMENDED COUMADIN/WARFARIN INR THERAPY RANGESSTANDARD DOSE: 2.0 - 3.0 Includes: PROPHYLAXIS for venous thrombosis, systemic embolization; TREATMENT for venous thrombosis and/or pulmonary embolus.HIGH RISK: Target INR is 2.5-3.5 for patients with mechanical heart valves.CALCIUM, [id number] 05:37:21 Test Item Value Reference Range Interpretation [...] (BEAKER) (test code = 413) LACTIC ACID, [id number] 05:29:58 Test Item Value Reference Range Interpretation Comments LACTATE BLOOD ARTERIAL (2) 0.9 mmol/L 0.5-2.2 (BEAKER) (test code = 2874) Sonar Watchstander ID - DREAD MSpecimen moderately ictericPOCT-GLUCOSE [id number] 21:19:06 Test Item Value Reference Range Interpretation Comments POC-GLUCOSE METER 105 mg/dL 70-110 : TESTED A T [facility] 6720 (BEAKER) (test code = [facility], 1538) 13164: Sonar Watchstander/Techni shantelle ID = [id number] for JEANMARIE BONILLA POCT-GLUCOSE [id number] 17:21:03 Test Item Value Reference Range Interpretation Comments POC-GLUCOSE METER 131 mg/dL 70-110 H : TESTED A T [facility] 6720 (HENRY) (test code [place], = 1538) 498[address]: Sonar Watchstander/Techni shantelle ID = [id number] for MAXIME VÁSQUEZ CMV PCR, [id number] 16:19:26 Test Item Value Reference Range Interpretation [...] and its performance characteristics determined by the [facility] Department, Section of Molecular Pathology. [...] RESULT (test code = See scanned report [id number]) See scanned reportPOCT-GLUCOSE [id number] 11:09:15 Test Item Value Reference Range Interpretation Comments POC-GLUCOSE METER 114 mg/dL 70-110 H : TESTED Daniela T [facility] [address] (BEAKER) (test code = [address] [address] [place], 1538) 28[address]: Sonar Watchstander/Techni shantelle ID = [id number] for Cait Yeh Bacterial culture + gram [id number] 11:06:52 Test Item Value Reference Range Interpretation Comments Result (test code = 6463-4) See comment Gram Stain Result (test No organisms seen code = 1123) SONIA (test code = SONIA) 4+ [facility]ast [facility] [id number] 11:06:52 Test Item Value Reference Range Interpretation Comments Result (test code = 6463-4) See comment Gram Stain Result (test No organisms seen code = 1123) SONIA (test code = SONIA) 4+ Yeast [facility] + gram [id number] 11:06:52 Test Item Value Reference Range Interpretation Comments Result (test code = 6463-4) See comment Gram Stain Result (test No organisms seen code = 1123) SONIA (test code = SONIA) 4+ Yeast [facility] + gram [id number] 11:06:52 Test Item Value Reference Range Interpretation Comments Result (test code = 6463-4) See comment Gram Stain Result (test No organisms seen code = 1123) SONIA (test code = SONIA) 4+ Yeast [facility] HospitalBRONCHIAL CULTURE + GRAM [id number] 11:06:52 Test Item Value Reference Range Interpretation Comments CULTURE (BEAKER) (test code See comment = 1095) GRAM STAIN RESULT (BEAKER) <1+ WBCs (test code = 1123) GRAM STAIN RESULT (BEAKER) No organisms seen (test code = 442715) 4+ [id number] 10:31:58 Test Item Value Reference Range Interpretation Comments POTASSIUM (BEAKER) (test code = 3.7 meq/L 3.5-5.1 379) Sonar Watchstander ID - CHRISTIANO [id number] 08:23:51 Test Item Value Reference Range Interpretation Comments PHOSPHORUS (BEAKER) (test code = 2.2 mg/dL 2.3-4.7 L 604) Sonar Watchstander ID - PIAYA LPOCT-GLUCOSE [id number] 07:40:14 Test Item Value Reference Range Interpretation Comments POC-GLUCOSE METER 93 mg/dL 70-110 : TESTED A Noy [facility] [address] (HENRY) (test code = [address] [place], 1538) 806[address]: Sonar Watchstander/Techni shantelle ID = [id number] for Melina Lombardi RAD, CHEST, 1 VIEW, NON [id number] 07:34:00Reason for exam:- >intubatedShould this be performed at the bedside?->Yes [facility] : 1985 Sex: FFINAL REPORT [...] disease, atelectasis, or pleural effusion. Signed: Livan Radfordday [facility] Verified Date/Time: 03/08/2022 07:34:29 Reading Location: [facility] Reading Room POCT-GLUCOSE [id number] 07:08:26 Test Item Value Reference Range Interpretation Comments POC-GLUCOSE METER 90 mg/dL 70-110 : [facility] ([facility] (test code = [address] [place], 1538) [address]: Sonar Watchstander/Techni shantelle ID = [id number] for Lorna Hogue HEPATITIS A ANTIBODY, [id number] 05:31:54 Test Item Value Reference Range Interpretation Comments HEPATITIS A IGG ANTIBODY (BEAKER) Reactive Nonreactive A (test code = 2797) Sonar Watchstander ID - GEOVANNA [id number] 05:06:50 Test Item Value Reference Range Interpretation Comments FIBRINOGEN LEVEL (BEAKER) (test 139 mg/dl 225-434 L code = 658) [id number] 05:01:34 Test Item Value Reference Range Interpretation Comments PHOSPHORUS (BEAKER) (test code = 0.8 mg/dL 2.3-4.7 LL 604) Sonar Watchstander ID - PIDEE [id number] 04:50:41 Test Item Value Reference Range Interpretation Comments MAGNESIUM (BEAKER) (test code = 1.9 mg/dL 1.6-2.6 627) Sonar Watchstander ID - DELORISDEE LCOMPREHENSIVE METABOLIC [id number] 04:50:41 Test Item Value Reference Range Interpretation [...] not appl icable for dialysis patien ts Sonar Watchstander ID - PIAYA LSpecimen moderately ictericOXYGEN SATURATION, MEASURED 2022-03-08 04:47:02 Test Item Value Reference Range Interpretation Comments O2 SATURATION (MEASURED) (BEAKER) 91.0 % (test code = 1455) PROTHROMBIN TIME/[id number] 04:45:16 Test Item Value Reference Range Interpretation Comments PROTIME (BEAKER) 27.2 seconds 11.9-14.2 H (test code = 759) INR (BEAKER) (test 2.72 See_Comment [Automat ed message] code = 370) The system [employer] generated this result transmitted ref erence range: [...] (BEAKER) (test code = 413) LACTIC ACID, [id number] 04:36:49 Test Item Value Reference Range Interpretation Comments LACTATE BLOOD ARTERIAL (2) 1.4 mmol/L 0.5-2.2 (BEAKER) (test code = 2874) Sonar Watchstander ID - PIAYA LSpecimen moderately ictericBlood gas, [id number] 04:36:04 Test Item Value Reference Range Interpretation Comments pH, Arterial (test code 7.57 7.35-7.45 H = 2744-1) pCO2, Arterial (test 32 See_Comment L [Autom ated message] code = 2018-) The system [facility] generated this result transmit afshin reference range : 35 - 45 mm Hg. The reference range was not used to interpret this result as normal/abnormal . pO2, Arterial (test 95 See_Comment H [Automa afshin message] code = 2703-7) The system [employer] generated this result transmit afshin reference range [...] 21 Lab Interpretation Abnormal (test code = 87785-8) [facility], [id number] 04:36:04 Test Item Value Reference Range Interpretation Comments pH, Arterial (test code 7.57 7.35-7.45 H = 2744-1) pCO2, Arterial (test 32 See_Comment L [Autom ated message] code = 2019-02) The system [employer] generated this result transmit afshin reference range : 35 - 45 mm Hg. The reference range was not used to interpret this result as normal/abnormal . pO2, Arterial (test 95 See_Comment H [Automa afshin message] code = 2703-7) The system [employer] generated this result transmit afshin reference range [...] 21 Lab Interpretation Abnormal (test code = 23060-5) [facility], [id number] 04:36:04 Test Item Value Reference Range Interpretation Comments pH, Arterial (test code 7.57 7.35-7.45 H = 2744-1) pCO2, Arterial (test 32 See_Comment L [Autom ated message] code = 2019-) The system [employer] generated this result transmit afshin reference range : 35 - 45 mm Hg. The reference range was not used to interpret this result as normal/abnormal . pO2, Arterial (test 95 See_Comment H [Automa afshin message] code = 2703-7) The system [employer] generated this result transmit afshin reference range [...] 21 Lab Interpretation Abnormal (test code = 78274-1) [facility], [id number] 04:36:04 Test Item Value Reference Range Interpretation Comments pH, Arterial (test code 7.57 7.35-7.45 H = 2744-1) pCO2, Arterial (test 32 See_Comment L [Autom ated message] code = 2019-8) The system [employer] generated this result transmit afshin reference range : 35 - 45 mm Hg. The reference range was not used to interpret this result as normal/abnormal . pO2, Arterial (test 95 See_Comment H [Automa afshin message] code = 2703-7) The system [employer] generated this result transmit afshin reference range [...] 21 Lab Interpretation Abnormal (test code = 71302-7) [facility] CenterBLOOD GAS, [id number] 04:36:04 Test Item Value Reference Range Interpretation [...] (BEAKER) (test code = 1819) 21.0 CALCIUM, [id number] 04:35:09 Test Item Value Reference Range Interpretation Comments CALCIUM IONIZED (BEAKER) (test 1.14 mmol/L 1.12-1.27 code = 698) PH, BLOOD (BEAKER) (test code = 7.57 1810) BLOOD [id number] 04:00:34 Test Item Value Reference Range Interpretation Comments CULTURE (BEAKER) (test No growth in 5 days code = 1095) BLOOD [id number] 04:00:34 Test Item Value Reference Range Interpretation Comments CULTURE (BEAKER) (test No growth in 5 days code = 1095) The specimen volume collected for this blood culture was below the optimum (10 mL per bottle or 20 mL total). Use of lower volumes may adversely affect recovery and/or detection times of some organisms.[id number] 22:55:23 Test Item Value Reference Range Interpretation Comments POTASSIUM (BEAKER) (test code = 3.5 meq/L 3.5-5.1 379) Sonar Watchstander ID - BSPOCT-GLUCOSE [id number] 22:35:33 Test Item Value Reference Range Interpretation Comments POC-GLUCOSE METER 147 mg/dL 70-110 H : TESTED A T [facility] 6720 (BEAKER) (test code = [address] [place], 1538) 44773: Sonar Watchstander/Techni shantelle ID = [id number] for As Lorna medina PERIPHERAL BLOOD SMEAR - PATHOLOGIST [id number] 19:05:26 Test Item Value Reference Interpretation Comments Range RBC MORPHOLOGY See comment Hypochromic, macrocytic (BEAKER) (test anemia with m oderate code = 1946) anisopoikilocyt osis with abundant target cells, occasional [...] MORPHOLOGY No Satellitosis (BEAKER) (test code = 184614) PLT MORPHOLOGY See comment Decreased wit h normal (BEAKER) (test granular morp hology. code = 079096) Occasional la rge forms. [facility]-PATHOLOGIS Lebron Joel MD T-6112 (BEAKER) (electronic (test code = signature) 2843) [id number] 18:29:48 Test Item Value Reference Range Interpretation Comments MAGNESIUM (BEAKER) (test code = 2.0 mg/dL 1.6-2.6 627) Sonar Watchstander ID - [id number] 18:29:48 Test Item Value Reference Range Interpretation Comments POTASSIUM (BEAKER) (test code = 2.9 meq/L 3.5-5.1 L 379) Sonar Watchstander ID - BSPOCT-GLUCOSE [id number] 16:24:12 Test Item Value Reference Range Interpretation Comments POC-GLUCOSE METER 255 mg/dL 70-110 H : TESTED A T [facility] 6720 (BEAKER) (test code = JOSE R [address] [facility], 1538) 32587: Sonar Watchstander/Techni shantelle ID = [id number] for Sa alberto (contract)Tania Drug screen, urine, [id number] 11:05:31 Test Item Value Reference Range Interpretation Comments Scan Result (test code = See scanned report [id number]) SONIA (test code = SONIA) See scanned report [facility] CenterD[facility], urine, [id number] 11:05:31 Test Item Value Reference Range Interpretation Comments Scan Result (test code = See scanned report [id number]) SONIA (test code = SONIA) See scanned report [facility] CenterD[facility], urine, [id number] 11:05:31 Test Item Value Reference Range Interpretation Comments Scan Result (test code = See scanned report [id number]) SONIA (test code = SONIA) See scanned report [facility] CenterD[facility], urine, [id number] 11:05:31 Test Item Value Reference Range Interpretation Comments Scan Result (test code = See scanned report [id number]) SONIA (test code = SONIA) See scanned report [facility] CenterDRUG SCREEN, URINE, [id number] 11:05:31 Test Item Value Reference Range Interpretation Comments SCAN RESULT (test code = See scanned report [id number]) See scanned reportSPIN/CONCENTRATION [id number] 10:21:14 Test Item Value Reference Range Interpretation Comments Concentration charged (test code = Done 2657) [facility] [id number] 10:21:14 Test Item Value Reference Range Interpretation Comments Concentration charged (test code = Done 2657) [facility] [id number] 10:21:14 Test Item Value Reference Range Interpretation Comments Concentration charged (test code = Done 2657) [facility] [id number] 10:21:14 Test Item Value Reference Range Interpretation Comments Concentration charged (test code = Done 2657) [facility] [id number] 10:21:14 Test Item Value Reference Range Interpretation Comments CONCENTRATION CHARGED (BEAKER) (test Done code = 2657) POCT-GLUCOSE [id number] 09:57:37 Test Item Value Reference Range Interpretation Comments POC-GLUCOSE METER 203 mg/dL 70-110 H : TESTED A T [facility] 6720 (BEAKER) (test code = JOSE R [address] [facility], 1538) 78673: Sonar Watchstander/Techni shantelle ID = [id number] for Sa alberto (contract)Taniaza CALCIUM, [id number] 06:27:45 Test Item Value Reference Range Interpretation Comments CALCIUM IONIZED (BEAKER) (test 1.12 mmol/L 1.12-1.27 code = 698) PH, BLOOD (BEAKER) (test code = 7.55 1810) BLOOD GAS, [id number] 06:26:46 Test Item Value Reference Range Interpretation [...] (test code = 1819) 40.0 COMPREHENSIVE METABOLIC [id number] 05:21:14 Test Item Value Reference Range Interpretation [...] not appl icable for dialysis patien ts Sonar Watchstander ID - PIAYA LSpecimen moderately ictericRAD, CHEST, 1 VIEW, NON DEPT 2022-03-07 04:31:00Reason for exam:->intubatedShould this be performed at the bedside?->[facility] : 1985 Sex: FFINAL REPORT [...] Jagdeep Salguero MDReport Verified Date/Time: 03/07/2022 04:31:34 [id number] 04:29:31 Test Item Value Reference Range Interpretation Comments MAGNESIUM (BEAKER) (test code = 2.0 mg/dL 1.6-2.6 627) Sonar Watchstander ID Kt [place] [id number] 04:29:31 Test Item Value Reference Range Interpretation Comments PHOSPHORUS (BEAKER) (test code = 1.8 mg/dL 2.3-4.7 L 604) Sonar Watchstander ID Kt [place] LCBC (HEMOGRAM ONLY)2022-03-07 04:28:18 Test Item Value [...] 0-0 (test code = 413) LACTIC ACID, [id number] 04:18:05 Test Item Value Reference Range Interpretation Comments LACTATE BLOOD ARTERIAL (2) 1.4 mmol/L 0.5-2.2 (BEAKER) (test code = 2874) Sonar Watchstander ID - GEOVANNA LSpecimen moderately [id number] 04:15:06 Test Item Value Reference Range Interpretation Comments FIBRINOGEN LEVEL (BEAKER) (test 147 mg/dl 225-434 L code = 658) PROTHROMBIN TIME/[id number] 04:10:01 Test Item Value Reference Range Interpretation Comments PROTIME (BEAKER) 23.5 seconds 11.9-14.2 H (test code = 759) INR (BEAKER) (test 2.16 See_Comment [Automat ed message] code = 370) The system [employer] generated this result transmitted ref erence range: <=5.90. The reference range was not used to int erpret this result as normal/abnormal . RECOMMENDED COUMADIN/WARFARIN INR THERAPY RANGESSTANDARD DOSE: 2.0 - 3.0 Includes: PROPHYLAXIS for venous thrombosis, systemic embolization; TREATMENT for venous thrombosis and/or pulmonary embolus.HIGH RISK: Target INR is 2.5-3.5 for patients with mechanical heart valves.VANCOMYCIN LEVEL, [id number] 00:47:14 Test Item Value Reference Range Interpretation Comments VANCOMYCIN TROUGH (BEAKER) (test 10.6 ug/mL 10.0-20.0 code = 522) Sonar Watchstander ID - MITCHPOCT-GLUCOSE [id number] 16:41:51 Test Item Value Reference Range Interpretation Comments POC-GLUCOSE METER 154 mg/dL 70-110 H : TESTED A T [facility] 6720 (BEAKER) (test code = [facility], 1538) 61582: Sonar Watchstander/Techni shantelle ID = [id number] for Mando gibson (contract) Kelly ana cristina POCT-GLUCOSE [id number] 12:35:45 Test Item Value Reference Range Interpretation Comments POC-GLUCOSE METER 174 mg/dL 70-110 H : TESTED A T [facility] 6720 (BEAKER) (test code = [facility], 1538) 80355: Sonar Watchstander/Techni shantelle ID = [id number] for ALBERTO ELMORE SHANNON BLOOD GAS, [id number] 12:30:55 Test Item Value Reference Range Interpretation [...] = 1819) 40.0 BRONCHIAL CULTURE + GRAM [id number] 08:46:49 Test Item Value Reference Range Interpretation Comments CULTURE (BEAKER) (test code See comment = 1095) GRAM STAIN RESULT (BEAKER) No WBCs (test code = 1123) GRAM STAIN RESULT (BEAKER) No organisms seen (test code = 88265) <1+ YeastBRONCHIAL CULTURE + GRAM [id number] 08:46:16 Test Item Value Reference Range Interpretation Comments CULTURE (BEAKER) (test code No growth = 1095) GRAM STAIN RESULT (BEAKER) <1+ WBCs (test code = 1123) GRAM STAIN RESULT (BEAKER) No organisms seen (test code = 70811) BLOOD GAS, [id number] 05:26:10 Test Item Value Reference Range Interpretation [...] (test code = 1819) 40.0 OXYGEN SATURATION, [id number] 05:22:52 Test Item Value Reference Range Interpretation Comments O2 SATURATION (MEASURED) (BEAKER) 88.7 % (test code = 1455) [id number] 05:17:50 Test Item Value Reference Range Interpretation Comments PHOSPHORUS (BEAKER) (test code = 1.4 mg/dL 2.3-4.7 LL 604) Sonar Watchstander ID - PIAYA LCOMPREHENSIVE METABOLIC [id number] 05:11:10 Test Item Value Reference Range Interpretation [...] not appl icable for dialysis patien ts Sonar Watchstander SHERMAN Kt Rodríguez moderately [id number] 05:11:09 Test Item Value Reference Range Interpretation Comments MAGNESIUM (BEAKER) (test code = 2.3 mg/dL 1.6-2.6 627) Sonar Watchstander ID Kt [place] LCALCIUM, [id number] 04:51:39 Test Item Value Reference Range Interpretation Comments CALCIUM IONIZED (BEAKER) (test 1.13 mmol/L 1.12-1.27 code = 698) PH, BLOOD (BEAKER) (test code = 7.50 1810) [id number] 04:33:13 Test Item Value Reference Range Interpretation Comments FIBRINOGEN LEVEL (BEAKER) (test 161 mg/dl 225-434 L code = 658) PROTHROMBIN TIME/[id number] 04:32:15 Test Item Value Reference Range Interpretation Comments PROTIME (BEAKER) 21.8 seconds 11.9-14.2 H (test code = 759) INR (BEAKER) (test 2.04 See_Comment [Automat ed message] code = 370) The system [employer] generated this result transmitted ref erence range: <=5.90. The reference range was not used to int erpret this result as normal/abnormal . RECOMMENDED COUMADIN/WARFARIN INR THERAPY RANGESSTANDARD DOSE: 2.0 - 3.0 Includes: PROPHYLAXIS for venous thrombosis, systemic embolization; TREATMENT for venous thrombosis and/or pulmonary embolus.HIGH RISK: Target INR is 2.5-3.5 for patients with mechanical heart valves.LACTIC ACID, [id number] 04:28:57 Test Item Value Reference Range Interpretation Comments LACTATE BLOOD ARTERIAL (2) 1.4 mmol/L 0.5-2.2 (BEAKER) (test code = 2874) Sonar Watchstander ID - GEOVANNA Rodríguez moderately ictericCBC (HEMOGRAM ONLY)2022-03-06 04:18:50 Test Item [...] = 413) RAD, CHEST, 1 VIEW, NON [id number] 03:08:00Reason for exam:- >intubatedShould this be performed at the bedside?->Yes [facility] : 1985 Sex: FFINAL REPORT [...] Salguero MDReport Verified Date/Time: 03/06/2022 03:08:02 POCT-GLUCOSE [id number] 01:21:32 Test Item Value Reference Range Interpretation Comments POC-GLUCOSE METER 283 mg/dL 70-110 H : TESTED A T [facility] 6720 (BEAKER) (test code = [address] [place], 1538) 165[address]: Sonar Watchstander/Techni shantelle ID = [id number] for Mohit Guerra MR, ABDOMEN, [id number] 21:25:00Unlisted Reason for Exam - Click Yes and Enter Reason Below->Yes Unlisted Reason for Exam->CIRRHOSIS/Pre liver transplant Eval[facility] OCLL[facility]O : 1985 Sex: FFINAL REPORT MRI ABDOMEN [...] Christopher Willardeport Verified Date/Time: 03/05/2022 21:25:37 POCT-GLUCOSE [id number] 20:09:52 Test Item Value Reference Range Interpretation Comments POC-GLUCOSE METER 228 mg/dL 70-110 H : TESTED A T [facility] 6720 (BEAKER) (test code = [facility], 1538) 44279: Sonar Watchstander/Techni shantelle ID = [id number] for Mohit Guerra POCT-GLUCOSE [id number] 18:30:46 Test Item Value Reference Range Interpretation Comments POC-GLUCOSE METER 246 mg/dL 70-110 H : TESTED A T [facility] 6720 (BEAKER) (test code = [facility] [employer] [facility], 1538) [address]: Sonar Watchstander/Techni shantelle ID = [id number] for MATTHEW KENDALL BLOOD GAS, [id number] 15:49:08 Test Item Value Reference Range Interpretation [...] (test code = 1819) 50.0 BLOOD GAS, [id number] 14:54:46 Test Item Value Reference Range Interpretation [...] (BEAKER) (test code = 1819) 60.0 POCT-GLUCOSE [id number] 12:55:41 Test Item Value Reference Range Interpretation Comments POC-GLUCOSE METER 206 mg/dL 70-110 H : TESTED A T [facility] (BEAKER) (test code = JOSE [address], 1538) [address]: Sonar Watchstander/Techni shantelle ID = [id number] for BE RNABE, MATTHEW RAD, CHEST, 1 VIEW, NON [id number] 12:38:00Reason for exam:->PNAShould this be performed at the bedside?->Yes [facility] 1985 Sex: FFINAL REPORT [...] Natanael Starkey MDReport Verified Date/Time: 03/05/2022 12:38:59 [id number] 06:44:03 Test Item Value Reference Range Interpretation Comments PHOSPHORUS (BEAKER) (test code = 1.9 mg/dL 2.3-4.7 L 604) Sonar Watchstander ID - DREAD [facility] [id number] 06:44:03 Test Item Value Reference Range Interpretation [...] not appl icable for dialysis patien ts Sonar Watchstander ID - DREAD MSpecimen markedly [id number] 06:44:02 Test Item Value Reference Range Interpretation Comments MAGNESIUM (BEAKER) (test code = 2.4 mg/dL 1.6-2.6 627) Sonar Watchstander ID - DREAD MLACTIC ACID, [id number] 06:23:30 Test Item Value Reference Range Interpretation Comments LACTATE BLOOD ARTERIAL (2) 1.1 mmol/L 0.5-2.2 (BEAKER) (test code = 2874) Sonar Watchstander ID - DREAD MSpecimen markedly [id number] 06:20:31 Test Item Value Reference Range Interpretation Comments FIBRINOGEN LEVEL (BEAKER) (test 192 mg/dl 225-434 L code = 658) PROTHROMBIN TIME/[id number] 06:20:08 Test Item Value Reference Range Interpretation Comments PROTIME (ALBERTOAKER) 24.1 seconds 11.9-14.2 H (test code = 759) INR (BEAKER) (test 2.24 See_Comment [Automat ed message] code = 370) The system [employer] generated this result transmitted ref erence range: [...] WBC 0-0 (test code = 413) POCT-GLUCOSE [id number] 05:58:51 Test Item Value Reference Range Interpretation Comments POC-GLUCOSE METER 138 mg/dL 70-110 H : TESTED A T [facility] (BEAKER) (test code = JOSE [address], 1538) [address]: Sonar Watchstander/Techni shantelle ID = [id number] for Mohit Guerra BLOOD GAS, [id number] 05:22:09 Test Item Value Reference Range Interpretation [...] (BEAKER) (test code = 1819) 30.0 CALCIUM, [id number] 05:22:09 Test Item Value Reference Range Interpretation Comments CALCIUM IONIZED (BEAKER) (test 1.10 mmol/L 1.12-1.27 L code = 698) PH, BLOOD (BEAKER) (test code = 7.50 1810) OXYGEN SATURATION, [id number] 05:16:58 Test Item Value Reference Range Interpretation Comments O2 SATURATION (MEASURED) (BEAKER) 83.0 % (test code = 1455) POCT-GLUCOSE [id number] 23:56:14 Test Item Value Reference Range Interpretation Comments POC-GLUCOSE METER 151 mg/dL 70-110 H : TESTED A T [facility] (BEAKER) (test code = JOSE [address], 1538) [address]: Sonar Watchstander/Techni shantelle ID = [id number] for Mohit Guerra Prepare [id number] 23:54:00 Test Item Value Reference Range Interpretation Comments Unit ABO (test code = O Pos 1087070) UNIT NUMBER (test code = [id number] 934-0) Status (test code = 4476591) [facility] Product (test code CRYOPRECIPITATE = 2263) PRODUCT CODE (test code = G5579X22 933-2) [facility] qhjadyvxyvgvfgi8314-04-02 23:54:00 Test Item Value Reference Range Interpretation Comments Unit ABO (test code = O Pos 3141545) UNIT NUMBER (test code = [id number] 934-0) Status (test code = 4138440) [facility] Blood Bank Product (test code CRYOPRECIPITATE = 2263) PRODUCT CODE (test code = Z4638H56 933-2) [facility] ztskdnycjtlfuij9415-01-96 23:54:00 Test Item Value Reference Range Interpretation Comments Unit ABO (test code = O Pos 8718475) UNIT NUMBER (test code = [id number] 934-0) Status (test code = 0320389) TX_TIMEINCHART Blood Bank Product (test code CRYOPRECIPITATE = 2263) PRODUCT CODE (test code = K9231T83 933-2) [facility] Center[facility] nhaarexafrxpqhk3095-35-76 23:54:00 Test Item Value Reference Range Interpretation Comments Unit ABO (test code = O Pos 7440632) UNIT NUMBER (test code = [id number] 934-0) Status (test code = 4082716) [place]_TIMEINCHART Blood Bank Product (test code CRYOPRECIPITATE = 2263) PRODUCT CODE (test code = I9760I07 933-2) [facility] CenterPO[facility] [id number] 18:09:15 Test Item Value Reference Range Interpretation Comments POC-GLUCOSE METER 112 mg/dL 70-110 H : TESTED A T [facility] (BEAKER) (test code = JOSE [address], 1538) [address]: Sonar Watchstander/Techni shantelle ID = [id number] for Cher Cuevas CORTISOL,60 [id number] 16:58:18 Test Item Value Reference Range Interpretation [...] (<or=34 mcg/dL) and high ACTH response (>9mcg/dL) 2. Intermediate Survival: Low basal cortisol (<34 mcg/dL) and low response to ACTH (<or=9 mcg/dL) OR High basal cortisol (>34 mcg/dL) or high [...] and Therapeutics Committee on 06/25/2004 and available th rough the Pharmacy Policy and Procedure Section on The Source.Sonar Watchstander ID - BS CORTISOL,30 [id number] 16:08:22 Test Item Value Reference Range Interpretation [...] Pharmacy Policy and Procedure Section on The Source.Sonar Watchstander ID - ADMINPOCT-GLUCOSE METER 2022-03-04 15:14:11 Test Item Value Reference Range Interpretation Comments POC-GLUCOSE METER 109 mg/dL 70-110 : TESTED Daniela Noy [facility] (HENRY) (test code = JOSE [address], 1538) [address]: Sonar Watchstander/Techni shantelle ID = [id number] for SANDRINE NUÑEZ OXYGEN SATURATION, [id number] 15:07:58 Test Item Value Reference Range Interpretation Comments O2 SATURATION (MEASURED) (BEAKER) 69.4 % (test code = 1455) CORTISOL,[id number] 13:25:14 Test Item Value Reference Range Interpretation [...] Pharmacy Policy and Procedure Section on The Source.Sonar Watchstander ID - DREAD MCarotid doppler qmqetveau1195-70-49 13:08:27Ejection FractionSLEH ECHO HEARTLAB MKCKESSON [facility]ANapa [facility] HospitalCarotid doppler smfxkmyde2819-92-46 13:08:27Ejection FractionSLEH ECHO HEARTLAB MKCKESSON CPACHI [facility] HospitalCarotid doppler smkngduez9669-56-26 13:08:27Ejection FractionSLEH ECHO HEARTLAB MKCKNEWYORK-PRESBY[facility] H[facility]ITALON [facility] campusCarotid doppler knwfdatab9393-35-46 13:08:27Ejection FractionSLEH ECHO HEARTLAB MKSANFORD [facility] CENTERON [facility] campusVANCOMYCIN LEVEL, [id number] 13:01:29 Test Item Value Reference Range Interpretation Comments VANCOMYCIN TROUGH (BEAKER) (test 14.8 ug/mL 10.0-20.0 code = 522) Sonar Watchstander ID - DREAD [id number] 12:58:03 Test Item Value Reference Range Interpretation Comments AMMONIA (BEAKER) (test code = 348) 70 mol/L 18-72 Sonar Watchstander ID - DREAD M(MANUAL DIFFERENTIAL)2022-03-04 12:57:10 Test [...] few 480) RAD, CHEST, 1 VIEW, NON [id number] 12:29:00Reason for exam:- >pneumoniaShould this be performed at the bedside?->Yes [facility] : 1985 Sex: FFINAL REPORT [...] Verified Date/Time: 03/04/2022 12:29:56 ANA TITER AND [id number] 12:05:29 Test Item Value Reference Range Interpretation Comments EMILIANO TITER (BEAKER) (test code = :160 1541) EMILIANO PATTERN (BEAKER) (test code = Homogeneous 1781) ANTI-NUCLEAR ANTIBODY (EMILIANO)2022-03-04 12:05:19 Test Item Value Reference Range Interpretation Comments ANTI-NUCLEAR ANTIBODY (EMILIANO) (BEAKER) Positive Negative A (test code = 418) Test performed by IFA method.SPIN/CONCENTRATION [id number] 11:30:22 Test Item Value Reference Range Interpretation Comments CONCENTRATION CHARGED (BEAKER) (test Done code = 2657) SPIN/CONCENTRATION [id number] 11:30:03 Test Item Value Reference Range Interpretation Comments CONCENTRATION CHARGED (BEAKER) (test Done code = 2657) VITAMIN [id number] 11:25:15 Test Item Value Reference Range Interpretation Comments VITAMIN B12 (BEAKER) (test code = > pg/mL 213-816 H 774) Sonar Watchstander ID - DREAD MUrinalysis w/Microscopic + Reflex to [id number] 11:11:04 Test Item Value Reference Range Interpretation Comments Color, UA (test code Dark Yellow = 5778-6) Clarity, UA (test Hazy code = 5767-9) Specific Alexis, UA 1.024 1.001-1.035 (test code = 5811-5) pH, UA (test code = 7.0 5.0-8.0 5803-2) Protein, UA (test 10 mg/dL Negative A code = 70879-2) Glucose, UA (test Negative Negative code = 365) Ketones, UA (test 10 mg/dL Negative A code = 2514-8) Bilirubin, UA (test Positive Negative A code = 51442-2) Blood, UA (test code Negative Negative = 54435-6) Nitrite, UA (test Negative Negative code = 5802-4) Leukocytes, UA (test Negative Negative code = 5799-2) Urobilinogen, UA 2.0 mg/dL 0.2-1.0 H (test code = 56378-1) RBC, UA (test code = 1 See_Comment [Autom ated 93271-1) message] The system which generated this result [...] Bacteria, UA (test None Seen code = 93914-9) Mucus (test code = Many 8247-9) Squam Epithel, UA <1 See_Comment [Automate d (test code = 47543-9) messag e] The system which generated this result transmit afshin reference range : /HPF. The reference range was not used to interpret this result as normal/abnormal . Crystals, Urine (test None Seen code = 97828-4) Specimen Source (test code = 2795) SONIA (test code = SONIA) Sonar Watchstander ID - [auto]Sonar Watchstander ID - tech Lab Interpretation Abnormal (test code = 21234-8) [facility] CenterUrinal[facility] w/Microscopic + Reflex to Culture 2022-03-04 11:11:04 Test Item Value Reference Range Interpretation Comments Color, UA (test code Dark Yellow = 5778-6) Clarity, UA (test Hazy code = 5767-9) Specific Alexis, UA 1.024 1.001-1.035 (test code = 5811-5) pH, UA (test code = 7.0 5.0-8.0 5803-2) Protein, UA (test 10 mg/dL Negative A code = 20005-0) Glucose, UA (test Negative Negative code = 365) Ketones, UA (test 10 mg/dL Negative A code = 2514-8) Bilirubin, UA (test Positive Negative A code = 67051-1) Blood, UA (test code Negative Negative = 32488-3) Nitrite, UA (test Negative Negative code = 5802-4) Leukocytes, UA (test Negative Negative code = 5799-2) Urobilinogen, UA 2.0 mg/dL 0.2-1.0 H (test code = 86628-5) RBC, UA (test code = 1 See_Comment [Autom ated 81723-2) message] The system which generated this result [...] Bacteria, UA (test None Seen code = 76294-9) Mucus (test code = Many 8247-9) Squam Epithel, UA <1 See_Comment [Automate d (test code = 49278-8) messag e] The system which generated this result transmit afshin reference range : /HPF. The reference range was not used to interpret this result as normal/abnormal . Crystals, Urine (test None Seen code = 07111-0) Specimen Source (test code = 2795) SONIA (test code = SONIA) Sonar Watchstander ID - [auto]Sonar Watchstander ID - tech Lab Interpretation Abnormal (test code = 14203-5) [facility]/Microscopic + Reflex to Culture 2022-03-04 11:11:04 Test Item Value Reference Range Interpretation Comments Color, UA (test code Dark Yellow = 5778-6) Clarity, UA (test Hazy code = 5767-9) Specific Alexis, UA 1.024 1.001-1.035 (test code = 5811-5) pH, UA (test code = 7.0 5.0-8.0 5803-2) Protein, UA (test 10 mg/dL Negative A code = 31713-4) Glucose, UA (test Negative Negative code = 365) Ketones, UA (test 10 mg/dL Negative A code = 2514-8) Bilirubin, UA (test Positive Negative A code = 95745-1) Blood, UA (test code Negative Negative = 87911-5) Nitrite, UA (test Negative Negative code = 5802-4) Leukocytes, UA (test Negative Negative code = 5799-2) Urobilinogen, UA 2.0 mg/dL 0.2-1.0 H (test code = 60615-6) RBC, UA (test code = 1 See_Comment [Autom ated 50504-5) message] The system which generated this result [...] Bacteria, UA (test None Seen code = 77147-5) Mucus (test code = Many 8247-9) Squam Epithel, UA <1 See_Comment [Automate d (test code = 92048-0) messag e] The system which generated this result transmit afshin reference range : /HPF. The reference range was not used to interpret this result as normal/abnormal . Crystals, Urine (test None Seen code = 16584-9) Specimen Source (test code = 2795) SONIA (test code = SONIA) Sonar Watchstander ID - [auto]Sonar Watchstander ID - tech Lab Interpretation Abnormal (test code = 20273-4) [facility]opic + Reflex to Culture 2022-03-04 11:11:04 Test Item Value Reference Range Interpretation Comments Color, UA (test code Dark Yellow = 5778-6) Clarity, UA (test Hazy code = 5767-9) Specific Alexis, UA 1.024 1.001-1.035 (test code = 5811-5) pH, UA (test code = 7.0 5.0-8.0 5803-2) Protein, UA (test 10 mg/dL Negative A code = 21285-9) Glucose, UA (test Negative Negative code = 365) Ketones, UA (test 10 mg/dL Negative A code = 2514-8) Bilirubin, UA (test Positive Negative A code = 71486-7) Blood, UA (test code Negative Negative = 96381-6) Nitrite, UA (test Negative Negative code = 5802-4) Leukocytes, UA (test Negative Negative code = 5799-2) Urobilinogen, UA 2.0 mg/dL 0.2-1.0 H (test code = 74514-1) RBC, UA (test code = 1 See_Comment [Autom ated 53468-9) message] The system which generated this result [...] Bacteria, UA (test None Seen code = 82942-5) Mucus (test code = Many 8247-9) Squam Epithel, UA <1 See_Comment [Automate d (test code = 81918-1) messag e] The system which generated this result transmit afshin reference range : /HPF. The reference range was not used to interpret this result as normal/abnormal . Crystals, Urine (test None Seen code = 45973-7) Specimen Source (test code = 2795) SONIA (test code = SONIA) Sonar Watchstander ID - [auto]Sonar Watchstander ID - tech Lab Interpretation Abnormal (test code = 34794-1) [facility] CenterUR[facility] W/ REFLEX URINE [id number] 11:11:04 Test Item Value Reference Range Interpretation [...] = 1521) SOURCE(BEAKER) (test code = 2795) Sonar Watchstander ID - [auto]Sonar Watchstander ID - techEBV ANTIBODY, [id number] 10:10:17 Test Item Value Reference Range Interpretation Comments MARQUIS ALVAREZ VIRAL CAPSID Positive Negative, Equivocal A ANTIGEN IGG (BEAKER) (test code = 3415) Marquis Alvarez Viral Capsid Antigen IgG Result Interpretation: </= 0.8 Al Negative 0.9-1.0 Al Equivocal >/= 1.1 Al PositiveEBV ANTIBODY, [id number] 10:10:17 Test Item Value Reference Range Interpretation [...] Positive - Presumed immune VARICELLA ZOSTER ANTIBODY, [id number] 10:10:16 Test Item Value Reference Range Interpretation Comments VARICELLA ZOSTER IGG (AL) (BEAKER) 4.4 (test code = 3197) VARICELLA ZOSTER RESULT INTERPRETATIONS: <=0.8 Al Nonreactive: Presumed non- immune to VZV 0.9-1.0Al Equivocal >=1.1 Al Reactive: Presumed immune to VZV CYTOMEGALOVIRUS ANTIBODY, [id number] 10:10:16 Test Item Value Reference Range Interpretation Comments CYTOMEGALOVIRUS, IGG (BEAKER) Positive Negative, Equivocal A (test code = 3429) CMV IgG Result Interpretation: </= 0.8 Al Negative 0.9-1.0 Al Equivocal >/=1.1 Al [id number] 09:43:54 Test Item Value Reference Range Interpretation Comments T3 TOTAL (BEAKER) (test code = 0.33 ng/mL 0.60-1.81 L 656) Sonar Watchstander ID - DSENSONRETICULOCYTE [id number] 09:19:21 Test Item Value Reference Range Interpretation Comments RETICULOCYTE COUNT PCT (BEAKER) (test 6.2 % 0.5-1.7 H code = 575) Sonar Watchstander ID - 6000POCT-GLUCOSE [id number] 06:53:00 Test Item Value Reference Range Interpretation Comments POC-GLUCOSE METER 98 mg/dL 70-110 : Notified RN/MD: TESTED (BEAKER) (test code = AT [facility] [facility] 65[facility]) [place], [address]: Sonar Watchstander/Techni shantelle ID = [id number] for Emilie lu (contract), Jain everett COMPREHENSIVE METABOLIC [id number] 06:16:07 Test Item Value Reference Range Interpretation [...] not appl icable for dialysis patien ts Sonar Watchstander SHERMAN - DREAD MSpecimen moderately [id number] 06:11:59 Test Item Value Reference Range Interpretation Comments PHOSPHORUS (BEAKER) (test code = 2.1 mg/dL 2.3-4.7 L 604) Sonar Watchstander ID - DREAD [id number] 06:11:58 Test Item Value Reference Range Interpretation Comments MAGNESIUM (BEAKER) (test code = 2.1 mg/dL 1.6-2.6 627) Sonar Watchstander ID - DREAD MCBC (HEMOGRAM ONLY)2022-03-04 05:02:41 Test Item Value [...] /100 WBC 0-0 (test code = 413) [id number] 05:00:33 Test Item Value Reference Range Interpretation Comments FIBRINOGEN LEVEL (BEAKER) (test 162 mg/dl 225-434 L code = 658) BLOOD GAS, [id number] 04:18:46 Test Item Value Reference Range Interpretation [...] (BEAKER) (test code = 1819) 40.0 CALCIUM, [id number] 04:18:45 Test Item Value Reference Range Interpretation Comments CALCIUM IONIZED (BEAKER) (test 1.10 mmol/L 1.12-1.27 L code = 698) PH, BLOOD (BEAKER) (test code = 7.51 1810) [id number] 02:10:38 Test Item Value Reference Range Interpretation Comments CORTISOL, TOTAL (BEAKER) (test 12.7 ug/dL 3.7-19.4 code = 2755) Sonar Watchstander ID - PIAYA LPOCT-GLUCOSE [id number] 01:05:43 Test Item Value Reference Range Interpretation Comments POC-GLUCOSE METER 105 mg/dL 70-110 : Notified RN/MD: (BEAKER) (test code = TESTED AT [facility] 4766 4515) [facility], [address]: Sonar Watchstander/Techni shantelle ID = [id number] for Remi gutierrez (contract), Cristobal floyd [id number] 22:42:24 Test Item Value Reference Range Interpretation Comments PHOSPHORUS (BEAKER) (test code = 3.6 mg/dL 2.3-4.7 604) Sonar Watchstander ID Kt [place] LBASIC METABOLIC [id number] 22:42:24 Test Item Value Reference Range Interpretation [...] not appl icable for dialysis patien ts Sonar Watchstander ID - GEOVANNA LSpecimen moderately ictericLACTIC ACID, [id number] 22:25:43 Test Item Value Reference Range Interpretation Comments LACTATE BLOOD VENOUS 1.56 mmol/L 0.50-2.20 Specime n slightly (2) (BEAKER) (test hemolyzed code = 9694) Sonar Watchstander ID - GEOVANNA LSpecimen moderately ictericCBC (HEMOGRAM [...] WBC 0-0 (test code = 413) CALCIUM, [id number] 22:14:28 Test Item Value Reference Range Interpretation Comments CALCIUM IONIZED (BEAKER) (test 1.09 mmol/L 1.12-1.27 L code = 698) PH, BLOOD (BEAKER) (test code = 7.43 1810) POCT-GLUCOSE [id number] 20:10:01 Test Item Value Reference Range Interpretation Comments POC-GLUCOSE METER 112 mg/dL 70-110 H : Notified RN/MD: ([facility]) (test code = TESTED AT [facility] 0053 6817) [facility], [address]: Sonar Watchstander/Techni shantelle ID = [id number] for Remi gutierrez (contract)Cristobal POCT-GLUCOSE [id number] 18:35:29 Test Item Value Reference Range Interpretation Comments POC-GLUCOSE METER 94 mg/dL 70-110 : TESTED A T [facility] 2220 (BEAKER) (test code = [address] [place], 1538) [address]: Sonar Watchstander/Techni shantelle ID = [id number] for SHANNON RESTREPO ECHO W CONTRAST & [id number] 16:56:02Ejection FractionSLEH ECHO HEARTLAB MKCKESSON [facility] CONTRAST & DOPPLER 2022-03-03 16:56:02Ejection FractionSLEH ECHO HEARTLAB MKCKESSON [facility] HospitalE[facility]AST & [id number] 16:56:02Ejection FractionSLEH ECHO HEARTLAB MKCKESSON [facility] campusECH W CONTRAST & [id number] 16:56:02Ejection FractionSLE ECHO HEARTLAB MKCKNEWYORK-PRESBYTER[facility] HOSPITALON [facility] campusCRYPTOCOCCAL [id number] 16:05:24 Test Item Value Reference Range Interpretation Comments CRYPTOCOCCAL ANTIGEN, SERUM Negative Negative, Interference (BEAKER) (test code = 1828) [id number] 16:04:51 Test Item Value Reference Range Interpretation Comments RPR SCREEN ([facility]) (test code = Nonreactive Nonreactive 420) [id number] 15:42:44 Test Item Value Reference Range Interpretation Comments T4 TOTAL (BEAKER) (test code = 895) 3.9 ug/dL 4.9-11.7 L Sonar Watchstander ID - JEFFERSON [id number] 15:13:31 Test Item Value Reference Range Interpretation Comments FERRITIN (BEAKER) (test code = 481.60 ng/mL 5.00-275.00 H 361) Sonar Watchstander ID - JEFFERSON DU/S, ABDOMINAL, [id number] 15:00:00Reason for exam:->evaluation for cirrhosis; doppler to evaluate for thrombus/budd chiariShould this be performed at the bedside?->Yes [facility] 1985 Sex: FFINAL [...] MDReport Verified Date/Time: 03/03/2022 15:00:50 U/S, DUPLEX, [id number] 15:00:00Reason for exam:->evaluation for cirrhosis; doppler to evaluate for thrombus /budd chiari [facility] : 1985 [...] 3.Small volume upper abdominal ascites Signed: Alfonso Newtonort Verified Date/Time: 03/03/2022 15:00:50 HEPATITIS B SURFACE [id number] 14:34:33 Test Item Value Reference Range Interpretation Comments HEPATITIS B SURFACE ANTIBODY < mIU/mL <8.0 (BEAKER) (test code = 647) Sonar Watchstander ID - PIDEE LHEPATITIS B CORE ANTIBODY, [id number] 14:34:18 Test Item Value Reference Range Interpretation Comments HEPATITIS B CORE TOTAL ANTIBODY Nonreactive Nonreactive (BEAKER) (test code = 497) Sonar Watchstander ID - PIDEE LCARCINOEMBRYONIC ANTIGEN (CEA)2022-03-03 14:34:17 Test Item Value Reference Range Interpretation Comments CARCINOEMBRYONIC ANTIGEN (BEAKER) 22.0 ng/mL 0.0-5.0 H (test code = 685) Sonar Watchstander ID - PIDEE LALPHA FETOPROTEIN (AFP), TUMOR [id number] 14:34:17 Test Item Value Reference Range Interpretation Comments ALPHA-FETOPROTEIN (BEAKER) (test 2.0 ng/mL <10.0 code = 1094) Sonar Watchstander ID - PIDEE LVITAMIN D, [id number] 14:34:06 Test Item Value Reference Range Interpretation Comments VITAMIN D 25-OH (BEAKER) (test code 4.1 ng/mL 6.6-49.9 L = 2764) Effective 04/26/2017: Reference Range ChangeNew: 6.6-49.9 ng/mL Previous: 13.0- 47.8 ng/mLRecommendedVitamin D Target Range: 30.0-40.0 ng/mLOperator ID - PIDEE [id number] 14:33:40 Test Item Value Reference Range Interpretation Comments THYROID STIMULATING HORMONE 0.247 uIU/mL 0.350-4.940 L (BEAKER) (test code = 772) Sonar Watchstander ID - PIDEE LHIV-1 ANTIGEN WITH HIV-1/2 [id number] 14:32:21 Test Item Value Reference Range Interpretation Comments HIV-1 ANTIGEN WITH HIV 1\\T\\2 Nonreactive Nonreactive ANTIBODY (2) (BEAKER) (test code = 2586) Sonar Watchstander ID - GEOVANNA [id number] 14:20:49 Test Item Value Reference Range Interpretation Comments PHOSPHORUS (BEAKER) (test code = 1.4 mg/dL 2.3-4.7 LL 604) Sonar Watchstander ID - GEOVANNA HAILEY, TIBC, % SAT. (WITHOUT FERRITIN)2022-03-03 14:20:38 Test Item Value Reference Range Interpretation Comments IRON (BEAKER) (test code = 547) 38.0 ug/dL 40.0-160.0 L TOTAL IRON BINDING CAPACITY 56 ug/dL 250-450 L (BEAKER) (test code = 769) IRON % SATURATION (2) (BEAKER) 68 % 20-55 H (test code = 2590) Sonar Watchstander ID - GEOVANNA [id number] 14:20:37 Test Item Value Reference Range Interpretation Comments TRANSFERRIN (BEAKER) (test code = 45 mg/dL 174-382 L 541) Sonar Watchstander ID - GEOVANNA LSpecimen moderately jrplkcgDXYUI-5-[id number] 14:20:15 Test Item Value Reference Range Interpretation Comments ALPHA-1 ANTITRYPSIN 137.60 mg/dL 90.00-200.00 Specimen slightly (BEAKER) (test code = hemoly zed 502) [employer] Watchstander ID - GEOVANNA [id number] 14:18:19 Test Item Value Reference Range Interpretation Comments ETHANOL (BEAKER) < mg/dL See_Comment [Automated message] The (test code = 400) system [facility] generated this result tra nsmitted reference range : <=10. The reference r yvonne was not used to int erpret this result as normal/abnormal . [employer] Watchstander ID - GEOVANNA LBILIRUBIN, [id number] 14:18:18 Test Item Value Reference Range Interpretation Comments BILIRUBIN DIRECT (BEAKER) (test 5.7 mg/dL 0.1-0.5 H code = 706) Sonar Watchstander ID - GEOVANNA LGAMMA GLUTAMYL TRANSFERASE (GGT)2022-03-03 14:18:18 Test Item Value Reference Range Interpretation Comments GAMMA GLUTAMYL TRANSFERASE (BEAKER) 86 U/L 9-64 H (test code = 364) Sonar Watchstander ID - GEOVANNA LSpecimen moderately ictericCOMPREHENSIVE METABOLIC [...] not appl icable for dialysis patien ts Sonar Watchstander ID - GEOVANNA LAWSONpecimen moderately ictericLIPID [id number] 14:18:17 Test Item Value Reference Range Interpretation [...] Borderline 130-159 High 160-189 Very High >=190 Sonar Watchstander ID - GEOVANNA Rodríguez moderately dztwksqXPCVYIUPE0720-63-00 14:18:16 Test Item Value Reference Range Interpretation Comments MAGNESIUM (BEAKER) (test code = 2.0 mg/dL 1.6-2.6 627) Sonar Watchstander ID - GEOVANNA LURIC [id number] 14:18:16 Test Item Value Reference Range Interpretation Comments URIC ACID (BEAKER) (test code = 3.3 mg/dL 2.6-7.2 773) Sonar Watchstander ID - GEOVANNA Vermaimen moderately ictericBLOOD GAS, [id number] 14:05:05 Test Item Value Reference Range Interpretation [...] 1819) 40.0 CBC W/PLT COUNT & AUTO [id number] 13:56:03 Test Item Value Reference Range Interpretation [...] PERCENT (BEAKER) (test code = 2801) POCT-GLUCOSE [id number] 13:52:04 Test Item Value Reference Range Interpretation Comments POC-GLUCOSE METER 131 mg/dL 70-110 H : TESTED A T [facility] 6720 (BEAKER) (test code = [facility], 1538) [address]: Sonar Watchstander/Techni shantelle ID = [id number] for SHANNON MAYER CALCIUM, [id number] 13:47:51 Test Item Value Reference Range Interpretation Comments CALCIUM IONIZED (BEAKER) (test 1.05 mmol/L 1.12-1.27 L code = 698) PH, BLOOD (BEAKER) (test code = 7.44 1810) POCT-GLUCOSE [id number] 13:25:22 Test Item Value Reference Range Interpretation Comments POC-GLUCOSE METER 51 mg/dL 70-110 L : TESTED A T [facility] 6720 (BEAKER) (test code = [facility], 1538) [address]: Sonar Watchstander/Techni shantelle ID = [id number] for SHANNON RESTREPO Screen, [id number] 13:09:21 Test Item Value Reference Range Interpretation Comments Preg Test, Ur (test code = 2112-1) Negative Negative Lab Interpretation (test code = Normal 09422-8) [facility] [id number] 13:09:21 Test Item Value Reference Range Interpretation Comments Preg Test, Ur (test code = 2112-1) Negative Negative Lab Interpretation (test code = Normal 87234-7) [facility], [id number] 13:09:21 Test Item Value Reference Range Interpretation Comments Preg Test, Ur (test code = 2112-1) Negative Negative Lab Interpretation (test code = Normal 53997-0) [facility], [id number] 13:09:21 Test Item Value Reference Range Interpretation Comments Preg Test, Ur (test code = 2112-1) Negative Negative Lab Interpretation (test code = Normal 82216-1) [facility]PREG[facility]Y SCREEN, [id number] 13:09:21 Test Item Value Reference Range Interpretation Comments TEST URINE (BEAKER) (test Negative Negative code = 583) [id number] 13:06:45 Test Item Value Reference Range Interpretation Comments PARTIAL THROMBOPLASTIN TIME 36.2 seconds 22.5-36.0 H (BEAKER) (test code = 760) [id number] 11:15:14 Test Item Value Reference Range Interpretation Comments FIBRINOGEN LEVEL (BEAKER) (test code < mg/dl 225-434 LL = 658) PROTHROMBIN TIME/[id number] 11:02:07 Test Item Value Reference Range Interpretation Comments PROTIME (BEAKER) 29.6 seconds 11.9-14.2 H (test code = 759) INR (BEAKER) (test 3.03 See_Comment [Automat ed message] code = 370) The system [employer] generated this result transmitted ref erence range: [...] 0.0 % 0.0-5.0 code = 1414) HEMOGLOBIN [id number] 09:44:25 Test Item Value Reference Range Interpretation Comments HEMOGLOBIN A1C < % See_Comment [Automated m essage] ELECTROPHORESIS (BEAKER) The system which (test code = 3811) generated this result transmitted ref erence range: <=5.6%. The reference range was not used to int erpret this result as normal/abnormal . "The A1c is measured using a [facility]-certified method. HbA1c value equal to or greater than 6.5% as thediagnosis cutoff for diabetes. An HbA1c value of 5.7- 6.4% indicates increased risk for diabetes (prediabetes)."Sonar Watchstander ID - ADMOperator ID - ADMBLOOD GAS, [id number] 08:13:19 Test Item Value Reference Range Interpretation [...] (test code = 1819) 40.0 COMPREHENSIVE METABOLIC [id number] 03:56:19 Test Item Value Reference Range Interpretation [...] not appl icable for dialysis patien ts Sonar Watchstander ID - ADMINSpecimen moderately vizklskWLOKUMHMK1951-23-18 03:56:19 Test Item Value Reference Range Interpretation Comments MAGNESIUM (BEAKER) (test code = 2.0 mg/dL 1.6-2.6 627) Sonar Watchstander ID - ADMINLACTIC ACID, [id number] 03:32:34 Test Item Value Reference Range Interpretation Comments LACTATE BLOOD VENOUS 1.99 mmol/L 0.50-2.20 Specime n slightly (2) (BEAKER) (test hemolyzed code = 0606) Sonar Watchstander ID - ADMINSpecimen moderately ictericRAD, CHEST, 1 VIEW, NON DEPT 2022-03-03 03:25:00Reason for exam:->verify ETT placementShould this be performed at the bedside?->Yes [facility] : 1985 Sex: FFINAL REPORT [...] spine without acute osseous abnormality. Signed: Jagdeep Slaguero [facility] Verified Date/Time: 03/03/2022 03:25:13 RAD, ABDOMEN/KUB, 1 VIEW [id number] 03:15:00Reason for exam:->verify [place] placementShould this be performed at the bedside?->Yes [facility] COLLAZOMAURO JADE : 1985 Sex: FFINAL REPORT Supine abdomen 03/03/2022. HISTORY: Dobbhoff tube placement. IMPRESSION: Dobbhoff feeding tube with the tip projecting over the mid to distal stomach. Signed: Christopher Willard Verified Date/Time: 03/03/2022 03:15:16 Electronically signed by: Jess WONG 03/03/2022 03:15 [id number] 03:07:49 Test Item Value Reference Range Interpretation [...] /100 WBC 0-0 (test code = 413) [id number] 03:02:45 Test Item Value Reference Range Interpretation Comments PARTIAL THROMBOPLASTIN TIME 40.9 seconds 22.5-36.0 H (BEAKER) (test code = 760) PROTHROMBIN TIME/[id number] 03:02:07 Test Item Value Reference Range Interpretation Comments PROTIME (BEAKER) 29.1 seconds 11.9-14.2 H (test code = 759) INR (BEAKER) (test 2.97 See_Comment [Automat ed message] code = 370) The system [employer] generated this result transmitted ref erence range: <=5.90. The reference range was not used to int erpret this result as normal/abnormal . RECOMMENDED COUMADIN/WARFARIN INR THERAPY RANGESSTANDARD DOSE: 2.0 - 3.0 Includes: PROPHYLAXIS for venous thrombosis, systemic embolization; TREATMENT for venous thrombosis and/or pulmonary embolus.HIGH RISK: Target INR is 2.5-3.5 for patients with mechanical heart valves.Hepatitis A antibody, [id number] 02:22:40 Test Item Value Reference Range Interpretation Comments Hep A IgM (test code = Nonreactive Nonreactive 12489-8) SONIA (test code = SONIA) Sonar Watchstander ID - PIAYA L Lab Interpretation (test Normal code = 46548-3) [facility] antibody, [id number] 02:22:40 Test Item Value Reference Range Interpretation Comments Hep A IgM (test code = Nonreactive Nonreactive 66905-2) SONIA (test code = SONIA) Sonar Watchstander ID - PIAYA L Lab Interpretation (test Normal code = 93582-7) [facility] CenterHep[facility] antibody, [id number] 02:22:40 Test Item Value Reference Range Interpretation Comments Hep A IgM (test code = Nonreactive Nonreactive 39516-1) SONIA (test code = SONIA) Sonar Watchstander ID - PIAYA L Lab Interpretation (test Normal code = 23282-5) [facility] antibody, [id number] 02:22:40 Test Item Value Reference Range Interpretation Comments Hep A IgM (test code = Nonreactive Nonreactive 39542-8) SONIA (test code = SONIA) Sonar Watchstander ID - PIAYA L Lab Interpretation (test Normal code = 35548-7) [facility], [id number] 02:22:40 Test Item Value Reference Range Interpretation Comments HEPATITIS A IGM ANTIBODY (BEAKER) Nonreactive Nonreactive (test code = 498) Sonar Watchstander ID - PIDEE LHepatitis C [id number] 02:22:39 Test Item Value Reference Range Interpretation Comments Hepatitis C Ab (test Nonreactive Nonreactive code = 46976-8) SONIA (test code = SONIA) Sonar Watchstander ID - PIAYA L Lab Interpretation (test Normal code = 18052-9) [facility] C [id number] 02:22:39 Test Item Value Reference Range Interpretation Comments Hepatitis C Ab (test Nonreactive Nonreactive code = 10675-0) SONIA (test code = SONIA) Sonar Watchstander ID - PIAYA L Lab Interpretation (test Normal code = 04658-8) [facility] C [id number] 02:22:39 Test Item Value Reference Range Interpretation Comments Hepatitis C Ab (test Nonreactive Nonreactive code = 14018-4) SONIA (test code = SONIA) Sonar Watchstander ID - PIAYA L Lab Interpretation (test Normal code = 27828-3) [facility] C [id number] 02:22:39 Test Item Value Reference Range Interpretation Comments Hepatitis C Ab (test Nonreactive Nonreactive code = 15571-0) SONIA (test code = SONIA) Sonar Watchstander ID - PIAYA L Lab Interpretation (test Normal code = 27502-0) [facility] C [id number] 02:22:39 Test Item Value Reference Range Interpretation Comments HEPATITIS C ANTIBODY (BEAKER) Nonreactive Nonreactive (test code = 367) Sonar Watchstander ID - GEOVANNA LHepatitis B surface [id number] 02:22:34 Test Item Value Reference Range Interpretation Comments Hepatitis B surface Nonreactive Nonreactive antigen (test code = 5195-3) SONIA (test code = SONIA) Specimen is considered negative for HBsAg. Lab Interpretation (test Normal code = 64799-5) [facility] B core antibody, [id number] 02:22:34 Test Item Value Reference Range Interpretation Comments Hep B C IgM (test code = Nonreactive Nonreactive 41302-4) SONIA (test code = SONIA) Sonar Watchstander ID - PIAYA L Lab Interpretation (test Normal code = 77215-2) [facility] surface [id number] 02:22:34 Test Item Value Reference Range Interpretation Comments Hepatitis B surface Nonreactive Nonreactive antigen (test code = 5195-3) SONIA (test code = SONIA) Specimen is considered negative for HBsAg. Lab Interpretation (test Normal code = 22419-0) [facility], [id number] 02:22:34 Test Item Value Reference Range Interpretation Comments Hep B C IgM (test code = Nonreactive Nonreactive 52565-0) SONIA (test code = SONIA) Sonar Watchstander ID - PIAYA L Lab Interpretation (test Normal code = 69599-7) [facility] surface [id number] 02:22:34 Test Item Value Reference Range Interpretation Comments Hepatitis B surface Nonreactive Nonreactive antigen (test code = 5195-3) SONIA (test code = SONIA) Specimen is considered negative for HBsAg. Lab Interpretation (test Normal code = 23068-5) [facility] B core antibody, [id number] 02:22:34 Test Item Value Reference Range Interpretation Comments Hep B C IgM (test code = Nonreactive Nonreactive 94214-5) SONIA (test code = SONIA) Sonar Watchstander ID - PIAYA L Lab Interpretation (test Normal code = 07202-4) [facility] surface [id number] 02:22:34 Test Item Value Reference Range Interpretation Comments Hepatitis B surface Nonreactive Nonreactive antigen (test code = 5195-3) SONIA (test code = SONIA) Specimen is considered negative for HBsAg. Lab Interpretation (test Normal code = 13574-8) [facility] antibody, [id number] 02:22:34 Test Item Value Reference Range Interpretation Comments Hep B C IgM (test code = Nonreactive Nonreactive 31399-1) SONIA (test code = SONIA) Sonar Watchstander ID - PIAYA L Lab Interpretation (test Normal code = 55816-0) [facility] SURFACE [id number] 02:22:34 Test Item Value Reference Range Interpretation Comments HEPATITIS B SURFACE ANTIGEN (2) Nonreactive Nonreactive (BEAKER) (test code = 2585) Specimen is considered negative for HBsAg.HEPATITIS B CORE ANTIBODY, IGM 2022-02-28 02:22:34 Test Item Value Reference Range Interpretation Comments HEPATITIS B CORE IGM ANTIBODY Nonreactive Nonreactive (BEAKER) (test code = 645) Sonar Watchstander ID - GEOVANNA Ferrarianol [id number] 10:53:00 Test Item Value Reference Range Interpretation Comments Ethanol (test code 199 mg/dL The pharm acological = ETOH) response to blo od alcohol levels mayvary from individual to i ndividual. The fatal bakari ntrationhas been reported t o be >400mg/dL. Ethanol [id number] 06:15:00 Test Item Value Reference Range Interpretation Comments Ethanol (test code 287 mg/dL The pharm acological = ETOH) response to blo od alcohol levels mayvary from individual to i ndividual. The fatal bakari ntrationhas been reported t o be >400mg/dL. Ethanol [id number] 02:50:00 Test Item Value Reference Range Interpretation Comments Ethanol (test code 324 mg/dL The pharm acological = ETOH) response to blo od alcohol levels mayvary from individual to i ndividual. The fatal bakari ntrationhas been reported t o be >400mg/dL. Urine [id number] 20:45:00 Test Item Value Reference Range Interpretation Comments RBC,Urine (test code = 0-2 /HPF 0-2 URBC.[facility]) WBC,Urine (test code = 0-5 /HPF 0-5 UWBC.[facility]) Bacteria,Urine (test Few /HPF None Seen A code = UBACT.[facility]) Squamous Epithelial 0-5 /HPF 0-5 Cell,Urine (test code = USQEPI.[facility]) Hyaline Casts,Urine None Seen /HPF None Seen (test code = UHYALC.XX) Reviewed (test code = Manual Micr Reviewed UDMREV) UF REFLEXUF REFLEXUA, Urinalysis Rflx Cult/[id number] 20:45:00 Test Item Value Reference Range Interpretation Comments Color,Urine (test code = UCOL) Dark Yellow Yellow A Clarity,Urine (test code = Clear Clear UCLAR) Ph, Urine (test code = UPH) 7.0 5.0-9.0 N Specific Alexis,Urine (test >= 1.030 1.005-1.030 N code = [...] A code = ULEU) UF REFLEXUF REFLEXDrug Screen,[id number] 20:45:00 Test Item Value Reference Range Interpretation [...] code = HCGU) Negative Negative Comprehensive Metabolic [id number] 20:45:00 Test Item Value Reference Range Interpretation [...] 280 U/L 46-116 H = ALP) Ethanol [id number] 20:45:00 Test Item Value Reference Range Interpretation Comments Ethanol (test code 442 mg/dL HH Critical value called to = ETOH) andread back by Malik TODD[] on: 0 01/21/22 at 2221by BNM17.Th e pharmacological response to blood alcoho l levels mayvary from in dividual to individual. The fatal concentrationha s been reported to be >400mg/dL. Complete Blood Count Auto [id number] 20:45:00 Test Item Value Reference Range Interpretation [...] = NRBCP) 0 % Coronavirus PCR, COVID19 [id number] 20:45:00 Test Item Value Reference Range Interpretation Comments Coronavirus PCR, For use under Emergency COVID19 Rapid (test Use Authorization (EUA) code = SARSCOV2) only. Coronavirus PCR, Reference Range: COVID19 Rapid (test Negative code = LSBMWNP30.1) SARS-CoV-2 PCR Result: Negative by RT-PCR (test code = SARS-CoV-2 PCR Result:) COVID-19 Status: Uyyzqjmtdbgz01 Lead [id number] 16:30:0112 LEAD EKG FOR [facility] Test Date: 9940-60-55Aer Name: [facility] Department: 5520Patient ID: [id number] [facility] Salesperson: [id number]: 1985 Requested By: HEBER Bañuelos Number: [id number] Reading MD: Cherri Matt MeasurementsIntervals Brooks Rate: 122 P: 78PR: 118 QRS: 74QRSD: 82 T: 75QT: 337 QTc: 410 Interpretive StatementsSINUS TACHYCARDIA WITH SHORT VA INTERVALNONSPECIFIC T-WAVE ABNORMALITYABNORMAL RHYTHM ECGElectronically Signed On 01-10-2022 16:07:49 CDT by TrackIFUniversity [facility]Har[facility] Qsymzo15 Lead EKG 2022-01-07 16:30:0112 LEAD EKG FOR [facility] Test Date: 8168-28-61Bil Name: [facility] Department: 5520Patient ID: [id number] Room: [facility] Home Planning Consultant Salesperson: [id number]: 1985 Requested By: HEBER Bañuelos Number: [id number] Rachel STAPLES: Cherri Matt MeasurementsIntervals Brooks Rate: 122 P: 78PR: 118 QRS: 74QRSD: 82 T: 75QT: 337 QTc: 410 Interpretive StatementsSINUS TACHYCARDIA WITH SHORT VA INTERVALNONSPECIFIC T-WAVE ABNORMALITYABNORMAL RHYTHM ECGElectronically Signed On 01-10-2022 16:07:49 CDT by TrackIFmoberly regional medical centerFollicaMurray-Calloway County HospitalNuiku12 Lead [id number] 16:30:0112 LEAD EKG FOR [facility] Test Date: 1468-20-29Uap Name: [facility] Department: 5520Patient ID: [id number] Room: BT OTFGender: F Home Planning Consultant Salesperson: [id number]: 1985 Requested By: HEBER Bañuelos Number: [id number] Reading MD: Cherri Matt MeasurementsIntervals Brooks Rate: 122 P: 78PR: 118 QRS: 74QRSD: 82 T: 75QT: 337 QTc: 410 Interpretive StatementsSINUS TACHYCARDIA WITH SHORT VA INTERVALNONSPECIFIC T-WAVE ABNORMALITYABNORMAL RHYTHM ECGElectronically Signed On 01-10-2022 16:07:49 CDT by Cherri JonesGeisinger [facility] METABOLIC [id number] 08:24:00 Test Item Value Reference Range Interpretation [...] >3 months. [Automated mess age] The system [employer] generated this result transmitted ref erence range: >=60. Th e reference range was not used to int erpret this result as normal/abnormal . CREATININE (test 0.40 mg/dL 0.55-1.02 L Note craig ge in code = CREAT) reference rang e due to change in reagent. BUN/CREATININE RATIO 14.3 10-20 N (test code = BUN/CREA) CALCIUM (test code = 8.2 mg/dL 8.5-10.1 L CA) [id number] 08:24:00 Test Item Value Reference Range Interpretation Comments MAGNESIUM (test code = MAG) 1.8 mg/dL 1.8-2.4 N UR OSMOLALITY [id number] 12:16:00 Test Item Value Reference Range Interpretation Comments UR OSMOLALITY RANDOM (test code = 420 mOsm/kg 48-962 N OSMOU) OSMOLALITY [id number] 12:16:00 Test Item Value Reference Range Interpretation Comments OSMOLALITY SERUM (test code = 271 mOsm/kg 275-295 L OSMO) 1355BASIC METABOLIC [id number] 06:15:00 Test Item Value Reference Range Interpretation [...] >3 months. [Automated mess age] The system [employer] generated this result transmitted ref erence range: >=60. Th e reference range was not used to int erpret this result as normal/abnormal . CREATININE (test 0.40 mg/dL 0.55-1.02 L Note craig ge in code = CREAT) reference rang e due to change in reagent. BUN/CREATININE RATIO 12.8 10-20 N (test code = BUN/CREA) CALCIUM (test code = 7.7 mg/dL 8.5-10.1 L CA) [id number] 06:15:00 Test Item Value Reference Range Interpretation Comments PHOSPHORUS (test code = PHOS) 3.6 mg/dL 2.5-4.9 N [id number] 06:15:00 Test Item Value Reference Range Interpretation Comments MAGNESIUM (test code = MAG) 1.7 mg/dL 1.8-2.4 L OSMOLALITY [id number] 19:46:00 Test Item Value Reference Range Interpretation Comments OSMOLALITY SERUM (test code = 271 MOS/KG 275-295 L OSMO) [id number] OSMOLALITY [id number] 19:40:00 Test Item Value Reference Range Interpretation Comments UR OSMOLALITY RANDOM (test code = 420 MOS/KG 300-1000 N OSMOU) [id number] NA,[id number] 14:56:00 Test Item Value Reference Range Interpretation Comments UR NA,RANDOM (test code = SUN) 72 mmol/L 20-110 N UR OSMOLALITY [id number] 14:56:00 Test Item Value Reference Range Interpretation Comments UR OSMOLALITY RANDOM (test code = mOsm/kg 48-962 OSMOU) BASIC METABOLIC [id number] 05:32:00 Test Item Value Reference Range Interpretation [...] >3 months. [Automated mess age] The system [employer] generated this result transmitted ref erence range: >=60. Th e reference range was not used to int erpret this result as normal/abnormal . CREATININE (test 0.30 mg/dL 0.55-1.02 L Note craig ge in code = CREAT) reference rang e due to change in reagent. BUN/CREATININE RATIO 15.6 10-20 N (test code = BUN/CREA) CALCIUM (test code = 7.4 mg/dL 8.5-10.1 L CA) [id number] 05:32:00 Test Item Value Reference Range Interpretation Comments PHOSPHORUS (test code = PHOS) 2.4 mg/dL 2.5-4.9 L [id number] 05:32:00 Test Item Value Reference Range Interpretation Comments MAGNESIUM (test code = MAG) 1.6 mg/dL 1.8-2.4 L BASIC METABOLIC [id number] 06:14:00 Test Item Value Reference Range Interpretation [...] >3 months. [Automated mess age] The system [employer] generated this result transmitted ref erence range: >=60. Th e reference range was not used to int erpret this result as normal/abnormal . CREATININE (test code 0.40 mg/dL 0.55-1.02 L Note change in = CREAT) reference range due to change in reagent. BUN/CREATININE RATIO 12.8 10-20 N (test code = BUN/CREA) CALCIUM (test code = 6.9 mg/dL 8.5-10.1 L CA) [id number] 06:14:00 Test Item Value Reference Range Interpretation Comments MAGNESIUM (test code = MAG) 1.3 mg/dL 1.8-2.4 L COMPREHENSIVE METABOLIC [id number] 05:04:00 Test Item Value Reference Range Interpretation Comments SODIUM (test code = 130 mmol/L 136-145 L NA) POTASSIUM (test code 2.5 mmol/L 3.5-5.1 LL Results called to = K) [id number] by JAYSON JANG 12/31/21 0504Cr itical results verifie d and read back by Kelly rsnathan? Y FOR ALL ICU PATIENT EXCLUDI NG HOLD PLEASE CALL [phone] CHLORIDE (test code = 99.0 mmol/L 98-107 [...] >3 months. [Automated mess age] The system [employer] generated this result transmitted ref erence range: [...] = 51.94 % 13-45 H FESAT) VITAMIN [id number] 05:04:00 Test Item Value Reference Range Interpretation Comments VITAMIN B12 (test code = VITB12) 3896 pg/mL 193-986 H TSH REFLEX TO [id number] 05:04:00 Test Item Value Reference Range Interpretation Comments TSH REFLEX TO FT4 (test code = 1.3 0.4-5.5 N TSHREFLEX) [id number] 05:04:00 Test Item Value Reference Range Interpretation Comments FERRITIN (test code = MARIANNE) 272 ng/mL 8-388 N LACTIC [id number] 04:50:00 Test Item Value Reference Range Interpretation Comments LACTIC ACID (test 2.9 mmol/L 0.4-1.9 HH Results ca lled to code = LACT) [id number] by JAYSON PérezGP 12/31/21 0450Cr itical results verifie d and read back by Kelly brady? Y FOR ALL ICU PATIENT EXCLUDING HOLD PLEASE CALL [phone] CBC W/AUTO [id number] 04:18:00 Test Item Value Reference Range Interpretation [...] DIFF REQUIRED (test code NO = MDIFF) [id number] 21:11:00 Test Item Value Reference Range Interpretation Comments SODIUM (test code = NA) 130 mmol/L 136-145 L BASIC METABOLIC [id number] 14:49:00 Test Item Value Reference Range Interpretation Comments SODIUM (test code = 129 mmol/L 136-145 L RESULT V ERIFIED BY NA) REPEAT ANALYSIS POTASSIUM (test code 2.5 mmol/L 3.5-5.1 LL Results called to = K) [id number] by 11ED Q5539 12/30/21 1447Cr itical results verifie d and read back by Nu rse? Y FOR ALL ICU PATIENT EXCLUDI NG HOLD PLEASE CALL [phone] CHLORIDE (test code 100.0 mmol/L 98-107 N [...] >3 months. [Automated mess age] The system [employer] generated this result transmitted ref erence range: [...] 7.4 mg/dL 8.5-10.1 L CA) COMPREHENSIVE METABOLIC [id number] 08:42:00 Test Item Value Reference Range Interpretation Comments SODIUM (test code = 137 mmol/L 136-145 RESULT V ERIFIED BY NA) REPEAT ANALYSIS POTASSIUM (test code 2.2 mmol/L 3.5-5.1 LL Results called to = K) [id number] by 2QUZ 5695 12/30/21 0839Critical re sults verified and re ad back by Nurse? PRECIOUSULT VEREMILY D BY REPEAT ANALYSIS FOR ALL ICU PATIENT EXCLUDI NG HOLD PLEASE CALL * [phone] CHLORIDE (test code = 107.0 mmol/L 98-107 [...] >3 months. [Automated mess age] The system [employer] generated this result transmit afshin reference range [...] range due ALKP) to change in reagent. [id number] 08:42:00 Test Item Value Reference Range Interpretation Comments PHOSPHORUS (test code = PHOS) 3.0 mg/dL 2.5-4.9 N [id number] 08:42:00 Test Item Value Reference Range Interpretation Comments MAGNESIUM (test code = MAG) 1.8 mg/dL 1.8-2.4 N CBC W/AUTO [id number] 03:29:00 Test Item Value Reference Range Interpretation [...] = 0.00 K/mm3 0.0-0.1 N NRBC#) LACTIC [id number] 21:59:00 Test Item Value Reference Range Interpretation Comments LACTIC ACID (test 4.2 mmol/L 0.4-1.9 HH Results ca lled to code = LACT) [id number] by Qonf.LT 12/29/212158Cr itical results verifie d and read back by Nu rse? Y FOR ALL ICU PATIENT EXCLUDING HOLD PLEASE CALL [phone] BASIC METABOLIC [id number] 21:59:00 Test Item Value Reference Range Interpretation Comments SODIUM (test code = 129 mmol/L 136-145 L NA) POTASSIUM (test code 2.3 mmol/L 3.5-5.1 LL Results called to = K) [id number] by Qonf.LT 12/29/212158Cr itical results verifie d and read back by Nu rse? Y FOR ALL ICU PATIENT EXCLUDI NG HOLD PLEASE CALL [phone] CHLORIDE (test code = 96.0 mmol/L 98-107 [...] >3 months. [Automated mess age] The system [employer] generated this result transmitted ref erence range: >=60. Th e reference range was not used to int erpret this result as normal/abnormal . CREATININE (test code 2.20 mg/dL 0.55-1.02 H Note change in = CREAT) reference range due to change in reagent. BUN/CREATININE RATIO 5.9 10-20 L (test code = BUN/CREA) CALCIUM (test code = 6.9 mg/dL 8.5-10.1 L CA) HEPATIC FUNCTION [id number] 21:59:00 Test Item Value Reference Range Interpretation [...] range due ALKP) to change in reagent. [id number] 21:50:00 Test Item Value Reference Range Interpretation Comments AMMONIA (test code = AMM) 55 umol/L 11-32 H - US ABDOMEN [id number] 18:33:00 [facility])Name: PAMELA OBRIEN : 1985 Sex: F Name: PAMELA OBRIEN [facility] : 1985 Age/S: 36 / F [address] [facility] Unit #: [id number] Loc: [place] [address] Phys: Alexis Fitzpatrick DO Acct: [id number] Dis Date: Status: ADM IN PHONE #: [phone] Exam Date: 12/29/2021 180 FAX #: [phone] Reason: CIRRHOSIS, EVALUATE FOR ASCITES, ORGANOMEGALY EXAMS: CPT CODE: [id number] US ABDOMEN COMPLETE 35300 REASON FOR EXAM: CIRRHOSIS, EVALUATE FOR ASCITES, ORGANOMEGALY EXAM ORDER DATE: 12/29/2021 4:10 PM Attending M.DDominique: Alexis Fitzpatrick DO PROCEDURE: - US ABDOMEN [...] defects in visualized duct. Gallbladder: Stones/sludge: No int raluminal stones or sludge. Wall: 1.9 mm in [...] cm stones: none cysts/masses: none hydronephrosis: none PAGE1 Signed Report (CONTINUED) Name: PAMELA OBRIEN [facility] : 1985 Age/S: 36 / F [address] [facility] Unit #: [id number] Loc: [place] [address] Phys: Alexis Fitzpatrick DO Acct: [id number] Dis Date: Status: ADM IN PHONE #: [phone] Exam Date: 12/29/2021 180 FAX #: [phone] Reason: CIRRHOSIS, EVALUATE FOR ASCITES, ORGANOMEGALY EXAMS: CPT CODE: [id number] US ABDOMEN COMPLETE 77757 (Continued) Left kidney: parenchyma echogenicity: Normal echogenicity size: 11 x 4.9 x 4.6 cm stones: none cysts/masses: none hydronephrosis: none Spleen: size: 9.2 cm cysts/masses: Parenchyma is sonographically unremarkable. Ascites/pleural effusions: None IMPRESSION: Hepatomegaly with hepatic steatosis. No ascites. Location: at 1833 Reported and signed by: London Madrid M.D. CC: Alexis Fitzpatrick DO Technologist: Celsa Cage Trnscb Date/Time: 12/29/2021 (1832) [email or web address] Orig Print D/T: S: 12/29/2021 (1835) Probe: [...] valves (2.5-3.5) IS PATIENT ON ANTICOAGULANTS? NURINALYSIS [id number] 17:45:00 Test Item Value Reference Range Interpretation Comments UA COLOR (test code = YELLOW YELLOW COLU) UA APPEARANCE (test Cloudy CLEAR A IS THE S AMPLE code = APPU) FROM ER OR L&D? ER IF THE ANSWER I S NO,PLEASE DOCUMENT TWO RN SIGNATURES HERE - by [id number] 12/29/21 1744 UA GLUCOSE DIPSTICK NEGATIVE mg/dL [...] FEW A MUCU) Urine Source? Clean CatchLACTIC [id number] 15:30:00 Test Item Value Reference Range Interpretation Comments LACTIC ACID (test 5.9 mmol/L 0.4-1.9 HH Results ca lled to code = LACT) [id number] by JAYSON PérezLT 12/29/21 1530Cr itical results verifie d and read back by Nu rse? Y FOR ALL ICU PATIENT EXCLUDING HOLD PLEASE CALL [phone] [id number] 15:18:00 Test Item Value Reference Range Interpretation Comments MAGNESIUM (test code = MAG) 1.0 mg/dL 1.8-2.4 L BASIC METABOLIC [id number] 15:18:00 Test Item Value Reference Range Interpretation [...] ICU PATIENT EXCLUDI NG HOLD PLEASE CALL [phone] CHLORIDE (test code = 90.0 mmol/L 98-107 [...] >3 months. [Automated mess age] The system [employer] generated this result transmitted ref erence range: [...] code = 67 IUnit/L 26-208 N CK) [id number] 15:07:00 Test Item Value Reference Range Interpretation Comments PHOSPHORUS (test code = PHOS) 2.5 mg/dL 2.5-4.9 N CBC W/O [id number] 14:26:00 Test Item Value Reference Range Interpretation [...] N = MPV) - CT HEAD/BRAIN W/O [id number] 14:16:00 [facility] 1985 Sex: F Name: PAMELA OBRIEN [facility] : 1985 Age/S: 36 / F [address] [facility] Unit #: [id number] Loc: [place] [address] Phys: Mana Biggs MD Acct: [id number] Dis Date: Status: REG ERPHONE #: [phone] Exam Date: 12/29/2021 1403 FAX #: [phone] Reason: weakness of bilat LE EXAMS: CPT CODE: [id number] CT HEAD/BRAIN W/O CONT 26857 HISTORY: weakness of bilat LE TECHNIQUE: Noncont rast 2.[address] of the head. Examination acquired within [address] dose reductionprotocol: Automated exposure control adjustment of mA and/or kV according to patient size or iterative reconstruction dose optimization techniques were used. COMPARISON: None FINDINGS: No lacerations or contusions of the scalp or facial soft tissues. Calvarium and skull base are intact. No acute hemorrhage. No intracranial mass, mass effect, or midline shift. No effacement of the sulci or crespo-whitematter interface. No cortical atrophy. No signs of white matter small-vessel disease. No hydrocephalus.. No extra-axial fluid collection. Visualized paranasal sinuses are clear. Mastoid air cells and middle ear cavities are clear. Orbital contents are unremarkable. IMPRESSION: Negative CT head. Location: [facility] at 1416 Reported and signed by: Rd Avitia MD CC: Mana Biggs MD Technologist:Annie Beck,RT(R),CT CTDI: DLP: Trnscb Date/Time: 12/29/2021 (276) [email or web address] Orig Print D/T: S: 12/29/2021 (3954) PAGE 1 Signed Report- XR CHEST 1 [id number] 13:51:00 [facility]Name: PAMELA OBRIEN : 1985 Sex: F FAX: Mana Ritter [phone] [place]: B St: REG Name: PAMELA OBRIEN [facility] : 1985 Age/S: 36/F [address] Unit #: [id number] Loc: [place] [address] Phys: Mana Biggs MD Acct: [id number] Dis Date: Status: REG ER PHONE #: [phone] Exam Date: 12/29/2021 1344 FAX #: [phone] Reason: weakness EXAMS: CPT CODE: [id number] XR CHEST 1 V 19506 REASON FOR EXAM: weakness Exam Order Date: 12/29/2021 1:12 PM Ordering M.D.: Mana Biggs MD PROCEDURE: - XR CHEST [...] Severe dextroscoliosis of the thoracic spine. Location: [facility] at 1351 Reported and signed by: Rd Avitia MD CC: Mana Biggs MD Technologist: JERAMY FAGAN JR RT(R); STUDENT TECHNOLOGIST Trnscrd Date/Time/By: 12/29/2021 (3656) : By: [email or web address] Orig Print D/T: S: 12/29/2021 (0034) PAGE 1 Signed ReportCOMP. METABOLIC PANEL (10647)2020-11-20 09:27:15 Test Item Value Reference Range Interpretation Comments NA (test code = 135 mmol/L 135-145 0900417660) K (test code = 4.0 mmol/L 3.5-5.0 4176834788) CL (test code = 99 mmol/L 98-108 3318627947) CO2 TOTAL (test code 29 mmol/L 23-31 = 1450177725) AGAP (test code = 7 2-16 9817100459) BUN (test code = 9 mg/dL 7-23 8547330024) GLUCOSE (test code = 97 mg/dL 70-110 7945008385) CREATININE (test code 0.53 mg/dL 0.50-1.04 = 7024162312) TOTAL BILI (test code 0.4 mg/dL 0.1-1.1 = 8842902820) CALCIUM (test code = 9.1 mg/dL 8.6-10.6 0625595859) T PROTEIN (test code 7.0 g/dL 6.3-8.2 = 8700678601) ALBUMIN (test code = 4.0 g/dL 3.5-5.0 8607875887) ALK PHOS (test code = 52 U/L 34-122 4036034523) ALTv (test code = 13 U/L 5-35 2-6) AST(SGOT) (test code 27 U/L 13-40 = 2313063682) eGFR (test code = 132.0 mL/min/1.73m2 7832034309) SONIA (test code = SONIA) Association of [...] or urine or abnormalities in imaging tests). [facility] [id number] 09:27:00 Test Item Value Reference Range Interpretation Comments POCT PREG (test code = 1605) negative On board controls acceptable with C present Line (test code = 3574) Lab Interpretation (test code = Normal 80981-9) [facility] [id number] 09:26:34 Test Item Value Reference Range Interpretation Comments BILI CONJ (test code = 9252691250) 0.0 mg/dL 0.0-0.3 BILI UNCON (test code = 1760546988) 0.2 mg/dL 0.1-1.1 Lab Interpretation (test code = Normal 89435-9) [facility] [id number] 09:18:33 Test Item Value Reference Range Interpretation Comments PROTIME PATIENT (test 12.4 See_Comment [Auto mated message] code = 5964-2) The system [employer] generated this result transmitted ref erence range: 12.0 - 1 4.7 Seconds. The re ference range was not u sed to interpret this result as normal/abnor mal. INR (test code = 6301-6) 1.0 Nor mal INR <1.1; Warfarin Therap eutic range 2.0 to 3. 0 or 2.5 to 3.5, dep ending upon the indica tions. Lab Interpretation (test Normal code = 15410-6) [facility] WITH [id number] 09:03:56 Test Item Value Reference Range Interpretation Comments WBC (test code = 6.87 See_Comment [Automated 4990-2) message] The sy stem which generated this result transmitted reference range : 4.30 - 11.10 10*3/?L. The reference range was not used to interpret this result as normal/abnormal . RBC (test code = 3.81 See_Comment L [Automated 279-8) message] The sy stem which generated this [...] (test code = 51.1 fL 39.0-49.9 H 66751-0) RDW-CV (test code = 22.0 % 12.0-15.5 H 788-0) PLT (test code = 268 See_Comment [Automated 777-3) message] The sy stem which generated this result transmitted reference range : 166 - 358 10*3/ ?L. The reference r yvonne was not used to interpret this result as normal/abnormal . MPV (test code = 9.4 fL 9.5-12.9 L 82510-6) NRBC/100 WBC (test 0.0 See_Comment [Automat ed code = 5955989127) message] The system which generated this result transmitted reference range : 0.0 - 10.0 /100 WBCs. The refer ence range was not u sed to interpret th is result as normal/abnormal . NRBC x10^3 (test code <0.01 See_Comment [Auto mated = 4850170868) message] The s ystem which generated this result transmitted reference range : 10*3/?L. The reference range was not used to interpret this result as normal/abnormal . GRAN MAT (NEUT) % 65.0 % (test code = 770-8) IMM GRAN % (test code 0.30 % = 0821366323) LYMPH % (test code = 25.5 % 736-9) MONO % (test code = 7.4 % 5905-5) EOS % (test code = 0.9 % 713-8) BASO % (test code = 0.9 % 706-2) GRAN MAT x10^3(ANC) 4.47 10*3/uL 1.88-7.09 (test code = 1571561970) IMM GRAN x10^3 (test <0.03 0.00-0.06 code = 7850917131) LYMPH x10^3 (test code 1.75 10*3/uL 1.32-3.29 = 731-0) MONO x10^3 (test code 0.51 10*3/uL 0.33-0.92 = 742-7) EOS x10^3 (test code = 0.06 10*3/uL 0.03-0.39 711-2) BASO x10^3 (test code 0.06 10*3/uL 0.01-0.07 = 704-7) Lab Interpretation Abnormal (test code = 82674-3) [facility]2020-11-20 08:38:55 Test Item Value Reference Range Interpretation Comments POCT GLU (test code = 0696320860) 104 mg/dL 70-110 Lab Interpretation (test code = Normal 51559-5) [facility] [id number] 21:41:00 Test Item Value Reference Range Interpretation Comments Iron (test code = Iron) 11 [facility]2021-03-01 21:41:00 Test Item Value Reference Range Interpretation Comments TIBC (test code = TIBC) 285 [facility]2021-03-01 21:41:00 Test Item Value Reference Range Interpretation Comments % Satur Fe (test code = % Satur Fe) 4 [facility]2021-03-01 21:41:00 Test Item Value Reference Range Interpretation Comments Iron (test code = Iron) 11 [facility]2021-03-01 21:41:00 Test Item Value Reference Range Interpretation Comments TIBC (test code = TIBC) 285 [facility]2021-03-01 21:41:00 Test Item Value Reference Range Interpretation Comments % Satur Fe (test code = % Satur Fe) 4 [facility]2021-03-01 09:48:00 Test Item Value Reference Range Interpretation Comments Lipase Lvl (test code = Lipase Lvl) 679 73393 [facility]2021-03-01 09:48:00 Test Item Value Reference Range Interpretation Comments Glucose Lvl (test code = Glucose Lvl) 74 70-99 [facility]2021-03-01 09:48:00 Test Item Value Reference Range Interpretation Comments BUN (test code = BUN) 10 - [facility]2021-03-01 09:48:00 Test Item Value Reference Range Interpretation Comments Creatinine Lvl (test code = Creatinine 0.49 0.50-1.40 Lvl) [facility]2021-03-01 09:48:00 Test Item Value Reference Range Interpretation Comments Sodium Lvl (test code = Sodium Lvl) 136 135-145 [facility]2021-03-01 09:48:00 Test Item Value Reference Range Interpretation Comments Potassium Lvl (test code = Potassium 3.0 3.5-5.1 Lvl) [facility]2021-03-01 09:48:00 Test Item Value Reference Range Interpretation Comments Chloride Lvl (test code = Chloride Lvl) 99 95-109 [facility]2021-03-01 09:48:00 Test Item Value Reference Range Interpretation Comments CO2 (test code = CO2) 33 24-32 [facility]2021-03-01 09:48:00 Test Item Value Reference Range Interpretation Comments AGAP (test code = AGAP) 7.0 10.0-20.0 [facility]2021-03-01 09:48:00 Test Item Value Reference Range Interpretation Comments Calcium Lvl (test code = Calcium Lvl) 8.4 8.5-10.5 [place] 993351-03-01 09:48:00 Test Item Value Reference Range Interpretation Comments B/C Ratio (test code = B/C Ratio) 20 1 6-25 [facility]2021-03-01 09:48:00 Test Item Value Reference Range Interpretation Comments Total Protein (test code = Total 5.8 6.4-8.4 Protein) [facility]2021-03-01 09:48:00 Test Item Value Reference Range Interpretation Comments Albumin Lvl (test code = Albumin Lvl) 2.4 3.5-5.0 [place] 993351-03-01 09:48:00 Test Item Value Reference Range Interpretation Comments Globulin (test code = Globulin) 3.4 2.7-4.2 [place] 993351-03-01 09:48:00 Test Item Value Reference Range Interpretation Comments A/G Ratio (test code = A/G Ratio) 0.7 1 0.7-1.6 [place] 993351-03-01 09:48:00 Test Item Value Reference Range Interpretation Comments ALT (test code = ALT) 27 See_Comment [Auto mated message] The system which ge nerated this result transmit afshin reference range : <=65. The reference range was not used to interpr et this result as modesto l/abnormal. [facility] [id number] 09:48:00 Test Item Value Reference Range Interpretation Comments AST (test code = AST) 36 See_Comment [Auto mated message] The system which ge nerated this result transmit afshin reference range : <=37. The reference range was not used to interpr et this result as modesto l/abnormal. [facility] [id number] 09:48:00 Test Item Value Reference Range Interpretation Comments Alk Phos (test code = Alk Phos) 57 39-136 [facility] [id number] 09:48:00 Test Item Value Reference Range Interpretation Comments Bili Total (test code = Bili Total) 0.4 0.2-1.3 [facility] [id number] 09:48:00 Test Item Value Reference Range Interpretation Comments eGFR (test code = eGFR) 127 [facility] [id number] 09:48:00 Test Item Value Reference Range Interpretation Comments Magnesium Lvl (test code = Magnesium 2.2 1.8-2.4 Lvl) [facility] [id number] 09:48:00 Test Item Value Reference Range Interpretation Comments Phosphorus (test code = Phosphorus) 3.4 2.5-4.5 [facility] Hos[id number] 09:48:00 Test Item Value Reference Range Interpretation Comments Segs (test code = Segs) 56.4 45.0-75.0 [facility] HospitalPjbvezpKFHCPXQQIR4921-77-13 09:48:00 Test Item Value Reference Range Interpretation Comments Lymphocytes (test code = Lymphocytes) 32.0 20.0-40.0 [facility] HospitalSerovyoYSCLSJGZZJ0780-57-16 09:48:00 Test Item Value Reference Range Interpretation Comments Monocytes (test code = Monocytes) 7.6 2.0-12.0 [facility] Hos[id number] 09:48:00 Test Item Value Reference Range Interpretation Comments Eosinophils (test code = 3.2 See_Comment [A utomated message] The Eosinophils) system which ge nerated this result tra nsmitted reference range : <=4.0. The reference r yvonne was not used to int erpret this result as normal/abnormal . [facility] HospitalVfixzorUMUUZDVQNL6401-65-50 09:48:00 Test Item Value Reference Range Interpretation Comments Basophils (test code = 0.8 See_Comment [Aut omated message] The Basophils) system which ge nerated this result tra nsmitted reference range : <=1.0. The reference r yvonne was not used to int erpret this result as normal/abnormal . [facility]AygvwscLHQIYIDRNV7690-15-52 09:48:00 Test Item Value Reference Range Interpretation Comments Neutrophils # (test code = Neutrophils 2.3 1.5-8.1 #) [place] 775961-03-01 09:48:00 Test Item Value Reference Range Interpretation Comments Lymphocytes # (test code = Lymphocytes 1.3 1.0-5.5 #) [place] 775961-03-01 09:48:00 Test Item Value Reference Range Interpretation Comments Monocytes # (test code 0.3 See_Comment [Aut omated message] The = Monocytes #) system which generated this result tra nsmitted reference range : <=0.8. The reference r yvonne was not used to int erpret this result as normal/abnormal . [place] 775961-03-01 09:48:00 Test Item Value Reference Range Interpretation Comments Eosinophils # (test code 0.1 See_Comment [A utomated message] The = Eosinophils #) system whic h generated this result tra nsmitted reference range : <=0.5. The reference r yvonne was not used to int erpret this result as normal/abnormal . [place] 775961-03-01 09:48:00 Test Item Value Reference Range Interpretation Comments Microcyte (test code = 3+ *NA*(09/14/20 3:48 Microcyte) AM) [place] 775961-03-01 09:48:00 Test Item Value Reference Range Interpretation Comments WBC (test code = WBC) 4.1 3.7-10.4 [place] 775961-03-01 09:48:00 Test Item Value Reference Range Interpretation Comments RBC (test code = RBC) 3.58 4.20-5.40 [place] 775961-03-01 09:48:00 Test Item Value Reference Range Interpretation Comments Hgb (test code = Hgb) 7.1 12.0-16.0 [place] 775961-03-01 09:48:00 Test Item Value Reference Range Interpretation Comments Hct (test code = Hct) 22.5 36.0-48.0 [place] 775961-03-01 09:48:00 Test Item Value Reference Range Interpretation Comments MCV (test code = MCV) 62.8 80.0-98.0 [place] 775961-03-01 09:48:00 Test Item Value Reference Range Interpretation Comments MCH (test code = MCH) 19.8 pg 27.0-31.0 [place] 775961-03-01 09:48:00 Test Item Value Reference Range Interpretation Comments MCHC (test code = MCHC) 31.5 32.0-36.0 [place] [address]-03-01 09:48:00 Test Item Value Reference Range Interpretation Comments RDW (test code = RDW) 23.2 11.5-14.5 [place] [address]-03-01 09:48:00 Test Item Value Reference Range Interpretation Comments Platelet (test code = Platelet) 239 133-450 [place] 775961-03-01 09:48:00 Test Item Value Reference Range Interpretation Comments MPV (test code = MPV) 8.4 7.4-10.4 [place] 993351-03-01 09:48:00 Test Item Value Reference Range Interpretation Comments Lipase Lvl (test code = Lipase Lvl) 319 73393 [place] 993351-03-01 09:48:00 Test Item Value Reference Range Interpretation Comments Glucose Lvl (test code = Glucose Lvl) 74 70-99 [place] 993351-03-01 09:48:00 Test Item Value Reference Range Interpretation Comments BUN (test code = BUN) 10 7-22 [place] 993351-03-01 09:48:00 Test Item Value Reference Range Interpretation Comments Creatinine Lvl (test code = Creatinine 0.49 0.50-1.40 Lvl) [place] 993351-03-01 09:48:00 Test Item Value Reference Range Interpretation Comments Sodium Lvl (test code = Sodium Lvl) 136 135-145 [place] 993351-03-01 09:48:00 Test Item Value Reference Range Interpretation Comments Potassium Lvl (test code = Potassium 3.0 3.5-5.1 Lvl) [place] 993351-03-01 09:48:00 Test Item Value Reference Range Interpretation Comments Chloride Lvl (test code = Chloride Lvl) 99 95-109 [place] 993351-03-01 09:48:00 Test Item Value Reference Range Interpretation Comments CO2 (test code = CO2) 33 24-32 [place] [address]-03-01 09:48:00 Test Item Value Reference Range Interpretation Comments AGAP (test code = AGAP) 7.0 10.0-20.0 [place] 993351-03-01 09:48:00 Test Item Value Reference Range Interpretation Comments Calcium Lvl (test code = Calcium Lvl) 8.4 8.5-10.5 [place] [address]-03-01 09:48:00 Test Item Value Reference Range Interpretation Comments B/C Ratio (test code = B/C Ratio) 20 1 6-25 [place] [address]-03-01 09:48:00 Test Item Value Reference Range Interpretation Comments Total Protein (test code = Total 5.8 6.4-8.4 Protein) [place] 993351-03-01 09:48:00 Test Item Value Reference Range Interpretation Comments Albumin Lvl (test code = Albumin Lvl) 2.4 3.5-5.0 [place] [address]-03-01 09:48:00 Test Item Value Reference Range Interpretation Comments Globulin (test code = Globulin) 3.4 2.7-4.2 [place] 993351-03-01 09:48:00 Test Item Value Reference Range Interpretation Comments A/G Ratio (test code = A/G Ratio) 0.7 1 0.7-1.6 [place] [address]-03-01 09:48:00 Test Item Value Reference Range Interpretation Comments ALT (test code = ALT) 27 See_Comment [Auto mated message] The system which ge nerated this result transmit afshin reference range : <=65. The reference range was not used to interpr et this result as modesto l/abnormal. [place] [address]-03-01 09:48:00 Test Item Value Reference Range Interpretation Comments AST (test code = AST) 36 See_Comment [Auto mated message] The system which ge nerated this result transmit afshin reference range : <=37. The reference range was not used to interpr et this result as modesto l/abnormal. [place] 993351-03-01 09:48:00 Test Item Value Reference Range Interpretation Comments Alk Phos (test code = Alk Phos) 57 39-136 [place] 993351-03-01 09:48:00 Test Item Value Reference Range Interpretation Comments Bili Total (test code = Bili Total) 0.4 0.2-1.3 [place] [address]-03-01 09:48:00 Test Item Value Reference Range Interpretation Comments eGFR (test code = eGFR) 127 [place] [address]-03-01 09:48:00 Test Item Value Reference Range Interpretation Comments Magnesium Lvl (test code = Magnesium 2.2 1.8-2.4 Lvl) [place] 993351-03-01 09:48:00 Test Item Value Reference Range Interpretation Comments Phosphorus (test code = Phosphorus) 3.4 2.5-4.5 [place] 775961-03-01 09:48:00 Test Item Value Reference Range Interpretation Comments Segs (test code = Segs) 56.4 45.0-75.0 [place] [address]-03-01 09:48:00 Test Item Value Reference Range Interpretation Comments Lymphocytes (test code = Lymphocytes) 32.0 20.0-40.0 [place] [address]-03-01 09:48:00 Test Item Value Reference Range Interpretation Comments Monocytes (test code = Monocytes) 7.6 2.0-12.0 [place] 775961-03-01 09:48:00 Test Item Value Reference Range Interpretation Comments Eosinophils (test code = 3.2 See_Comment [A utomated message] The Eosinophils) system which ge nerated this result tra nsmitted reference range : <=4.0. The reference r yvonne was not used to int erpret this result as normal/abnormal . [place] [address]-03-01 09:48:00 Test Item Value Reference Range Interpretation Comments Basophils (test code = 0.8 See_Comment [Aut omated message] The Basophils) system which ge nerated this result tra nsmitted reference range : <=1.0. The reference r yvonne was not used to int erpret this result as normal/abnormal . [place] [address]-03-01 09:48:00 Test Item Value Reference Range Interpretation Comments Neutrophils # (test code = Neutrophils 2.3 1.5-8.1 #) [id number] 09:48:00 Test Item Value Reference Range Interpretation Comments Lymphocytes # (test code = Lymphocytes 1.3 1.0-5.5 #) [place] 775961-03-01 09:48:00 Test Item Value Reference Range Interpretation Comments Monocytes # (test code 0.3 See_Comment [Aut omated message] The = Monocytes #) system which generated this result tra nsmitted reference range : <=0.8. The reference r yvonne was not used to int erpret this result as normal/abnormal . [place] 775961-03-01 09:48:00 Test Item Value Reference Range Interpretation Comments Eosinophils # (test code 0.1 See_Comment [A utomated message] The = Eosinophils #) system whic h generated this result tra nsmitted reference range : <=0.5. The reference r yvonne was not used to int erpret this result as normal/abnormal . [facility] Ho[id number] 09:48:00 Test Item Value Reference Range Interpretation Comments Microcyte (test code = 3+ *NA*(09/14/20 3:48 Microcyte) AM) [place] 775961-03-01 09:48:00 Test Item Value Reference Range Interpretation Comments WBC (test code = WBC) 4.1 3.7-10.4 [place] 775961-03-01 09:48:00 Test Item Value Reference Range Interpretation Comments RBC (test code = RBC) 3.58 4.20-5.40 [place] 775961-03-01 09:48:00 Test Item Value Reference Range Interpretation Comments Hgb (test code = Hgb) 7.1 12.0-16.0 [place] [address]-03-01 09:48:00 Test Item Value Reference Range Interpretation Comments Hct (test code = Hct) 22.5 36.0-48.0 [place] 775961-03-01 09:48:00 Test Item Value Reference Range Interpretation Comments MCV (test code = MCV) 62.8 80.0-98.0 [place] [address]-03-01 09:48:00 Test Item Value Reference Range Interpretation Comments MCH (test code = MCH) 19.8 pg 27.0-31.0 [facility] HospitalUbyszrcEGOYXOSLKY8144-44-55 09:48:00 Test Item Value Reference Range Interpretation Comments MCHC (test code = MCHC) 31.5 32.0-36.0 [facility] HospitalZewxydhNNEOAKBJRG9389-27-00 09:48:00 Test Item Value Reference Range Interpretation Comments RDW (test code = RDW) 23.2 11.5-14.5 [facility] HospitalEqzswpqMQCIZODZTF3302-46-89 09:48:00 Test Item Value Reference Range Interpretation Comments Platelet (test code = Platelet) 239 133-450 [facility] HospitalTbdxshqHODARIPVCM1197-52-27 09:48:00 Test Item Value Reference Range Interpretation Comments MPV (test code = MPV) 8.4 7.4-10.4 [facility]2021-02-28 22:56:00 Test Item Value Reference Range Interpretation Comments Iron (test code = Iron) 12 [facility]2021-02-28 22:56:00 Test Item Value Reference Range Interpretation Comments TIBC (test code = TIBC) 311 [facility]2021-02-28 22:56:00 Test Item Value Reference Range Interpretation Comments % Satur Fe (test code = % Satur Fe) 4 [facility]CHE[facility] [id number] 22:56:00 Test Item Value Reference Range Interpretation Comments Lactic Acid Lvl (test code = Lactic 1.2 0.5-2.2 Acid Lvl) [facility] Ho[id number] 22:56:00 Test Item Value Reference Range Interpretation Comments Coronavirus (COVID-19) Not Detected (09/13/20 OLLIE (test code = 4:56 PM) Coronavirus (COVID-19) OLLIE) [facility]2021-02-28 22:56:00 Test Item Value Reference Range Interpretation Comments Iron (test code = Iron) 12 [facility]2021-02-28 22:56:00 Test Item Value Reference Range Interpretation Comments TIBC (test code = TIBC) 311 [facility]2021-02-28 22:56:00 Test Item Value Reference Range Interpretation Comments % Satur Fe (test code = % Satur Fe) 4 [facility]annCHE[facility] [id number] 22:56:00 Test Item Value Reference Range Interpretation Comments Lactic Acid Lvl (test code = Lactic 1.2 0.5-2.2 Acid Lvl) [facility] [id number] 22:56:00 Test Item Value Reference Range Interpretation Comments Coronavirus (COVID-19) Not Detected (09/13/20 OLLIE (test code = 4:56 PM) Coronavirus (COVID-19) OLLIE) [facility] [id number] 20:59:00 Test Item Value Reference Range Interpretation Comments UA Bacteria (test code = UA Many /HPF Bacteria) [facility] [id number] 20:59:00 Test Item Value Reference Range Interpretation Comments UA Mucus (test code = UA Mucus) Many /LPF [facility] [id number] 20:59:00 Test Item Value Reference Range Interpretation Comments UA Hyal Cast (test 49 See_Comment [Automat ed message] The code = UA Hyal Cast) system which generated this result transmit afshin reference range : <=2. The reference range was not used to interpr et this result as modesto l/abnormal. [facility] HospitalCulture: [id number] 20:59:00 Test Item Value Reference Range Interpretation Comments Culture: Urine >100,000 CFU/mL Gram (test code = Negative Rods Culture: Urine) Identification And Sensitivity Pending [facility] [id number] 20:59:00 Test Item Value Reference Range Interpretation Comments UA Color (test code = Teresa *ABN*(09/13/20 UA Color) 2:59 PM) [facility] [id number] 20:59:00 Test Item Value Reference Range Interpretation Comments UA Turbidity (test code Marked *ABN*(09/13/20 = UA Turbidity) 2:59 PM) [facility] [id number] 20:59:00 Test Item Value Reference Range Interpretation Comments UA Spec Grav (test code = UA Spec 1.027 1 Grav) [facility] [id number] 20:59:00 Test Item Value Reference Range Interpretation Comments UA pH (test code = UA pH) 5.0 1 5.0-8.0 [facility] [id number] 20:59:00 Test Item Value Reference Range Interpretation Comments UA Protein (test code = UA Protein) 30 mg/dL [facility] [id number] 20:59:00 Test Item Value Reference Range Interpretation Comments UA Glucose (test code = UA Negative mg/dL Glucose) [facility] [id number] 20:59:00 Test Item Value Reference Range Interpretation Comments UA Ketones (test code = UA Negative mg/dL Ketones) [facility] AND [id number] 20:59:00 Test Item Value Reference Range Interpretation Comments UA Bili (test code = Negative *NA*(09/13/20 UA Bili) 2:59 PM) [facility] AND [id number] 20:59:00 Test Item Value Reference Range Interpretation Comments UA Blood (test code = Negative (09/13/20 2:59 UA Blood) PM) [facility] AND [id number] 20:59:00 Test Item Value Reference Range Interpretation Comments UA Urobilinogen (test code = UA 2.0 0.1-1.0 Urobilinogen) [facility] AND [id number] 20:59:00 Test Item Value Reference Range Interpretation Comments UA Nitrite (test code Positive *ABN*(09/13/20 = UA Nitrite) 2:59 PM) [facility] AND [id number] 20:59:00 Test Item Value Reference Range Interpretation Comments UA Leuk Est (test Moderate *ABN*(09/13/20 code = UA Leuk Est) 2:59 PM) [facility] AND [id number] 20:59:00 Test Item Value Reference Range Interpretation Comments UA Sq Epi (test code = UA Sq Epi) Few /LPF [facility] AND [id number] 20:59:00 Test Item Value Reference Range Interpretation Comments UA WBC (test code = 157 See_Comment [Automa afshin message] The UA WBC) system which ge nerated this result transmit afshin reference range : <=5. The reference range was not used to interpr et this result as modesto l/abnormal. [facility] AND [id number] 20:59:00 Test Item Value Reference Range Interpretation Comments UA RBC (test code = 18 See_Comment [Automa afshin message] The UA RBC) system which ge nerated this result transmit afshin reference range : <=2. The reference range was not used to interpr et this result as modesto l/abnormal. [facility] AND [id number] 20:59:00 Test Item Value Reference Range Interpretation Comments UA Color (test code = Teresa *ABN*(09/13/20 UA Color) 2:59 PM) [facility] [id number] 20:59:00 Test Item Value Reference Range Interpretation Comments UA Turbidity (test code Marked *ABN*(09/13/20 = UA Turbidity) 2:59 PM) [facility] AND [id number] 20:59:00 Test Item Value Reference Range Interpretation Comments UA Spec Grav (test code = UA Spec 1.027 1 Grav) [facility] AND [id number] 20:59:00 Test Item Value Reference Range Interpretation Comments UA pH (test code = UA pH) 5.0 1 5.0-8.0 [facility] [id number] 20:59:00 Test Item Value Reference Range Interpretation Comments UA Protein (test code = UA Protein) 30 mg/dL [facility] AND [id number] 20:59:00 Test Item Value Reference Range Interpretation Comments UA Glucose (test code = UA Negative mg/dL Glucose) [facility] AND [id number] 20:59:00 Test Item Value Reference Range Interpretation Comments UA Ketones (test code = UA Negative mg/dL Ketones) [facility] [id number] 20:59:00 Test Item Value Reference Range Interpretation Comments UA Bili (test code = Negative *NA*(09/13/20 UA Bili) 2:59 PM) [facility] AND [id number] 20:59:00 Test Item Value Reference Range Interpretation Comments UA Blood (test code = Negative (09/13/20 2:59 UA Blood) PM) [facility] AND [id number] 20:59:00 Test Item Value Reference Range Interpretation Comments UA Urobilinogen (test code = UA 2.0 0.1-1.0 Urobilinogen) [facility] AND [id number] 20:59:00 Test Item Value Reference Range Interpretation Comments UA Nitrite (test code Positive *ABN*(09/13/20 = UA Nitrite) 2:59 PM) [facility] [id number] 20:59:00 Test Item Value Reference Range Interpretation Comments UA Leuk Est (test Moderate *ABN*(09/13/20 code = UA Leuk Est) 2:59 PM) [facility] [id number] 20:59:00 Test Item Value Reference Range Interpretation Comments UA Sq Epi (test code = UA Sq Epi) Few /LPF [facility] AND [id number] 20:59:00 Test Item Value Reference Range Interpretation Comments UA WBC (test code = 157 See_Comment [Automa afshin message] The UA WBC) system which ge nerated this result transmit afshin reference range : <=5. The reference range was not used to interpr et this result as modesto l/abnormal. [facility] AND [id number] 20:59:00 Test Item Value Reference Range Interpretation Comments UA RBC (test code = 18 See_Comment [Automa afshin message] The UA RBC) system which ge nerated this result transmit afshin reference range : <=2. The reference range was not used to interpr et this result as modesto l/abnormal. [facility] AND [id number] 20:59:00 Test Item Value Reference Range Interpretation Comments UA Bacteria (test code = UA Many /HPF Bacteria) [facility] [id number] 20:59:00 Test Item Value Reference Range Interpretation Comments UA Mucus (test code = UA Mucus) Many /LPF [facility] AND [id number] 20:59:00 Test Item Value Reference Range Interpretation Comments UA Hyal Cast (test 49 See_Comment [Automat ed message] The code = UA Hyal Cast) system which generated this result transmit afshin reference range : <=2. The reference range was not used to interpr et this result as modesto l/abnormal. [facility]Culture: [id number] 20:59:00 Test Item Value Reference Range Interpretation Comments Culture: Urine >100,000 CFU/mL Gram (test code = Negative Rods Culture: Urine) Identification And Sensitivity Pending [facility] [id number] 19:51:00 Test Item Value Reference Range Interpretation Comments Glucose Lvl (test code = Glucose Lvl) 91 70-99 [place] 993351-02-28 19:51:00 Test Item Value Reference Range Interpretation Comments BUN (test code = BUN) 14 7-22 [place] 993351-02-28 19:51:00 Test Item Value Reference Range Interpretation Comments Creatinine Lvl (test code = Creatinine 0.68 0.50-1.40 Lvl) [place] 993351-02-28 19:51:00 Test Item Value Reference Range Interpretation Comments Sodium Lvl (test code = Sodium Lvl) 130 135-145 [place] 993351-02-28 19:51:00 Test Item Value Reference Range Interpretation Comments Potassium Lvl (test code = Potassium 4.1 3.5-5.1 Lvl) [place] 993351-02-28 19:51:00 Test Item Value Reference Range Interpretation Comments Chloride Lvl (test code = Chloride Lvl) 95 95-109 [place] 993351-02-28 19:51:00 Test Item Value Reference Range Interpretation Comments CO2 (test code = CO2) 32 24-32 [place] 993351-02-28 19:51:00 Test Item Value Reference Range Interpretation Comments Calcium Lvl (test code = Calcium Lvl) 8.7 8.5-10.5 [place] 993351-02-28 19:51:00 Test Item Value Reference Range Interpretation Comments Total Protein (test code = Total 7.4 6.4-8.4 Protein) [place] 993351-02-28 19:51:00 Test Item Value Reference Range Interpretation Comments Albumin Lvl (test code = Albumin Lvl) 3.2 3.5-5.0 [place] 993351-02-28 19:51:00 Test Item Value Reference Range Interpretation Comments ALT (test code = ALT) 37 See_Comment [Auto mated message] The system which ge nerated this result transmit afshin reference range : <=65. The reference range was not used to interpr et this result as modesto l/abnormal. [place] 993351-02-28 19:51:00 Test Item Value Reference Range Interpretation Comments AST (test code = AST) 48 See_Comment [Auto mated message] The system which ge nerated this result transmit afshin reference range : <=37. The reference range was not used to interpr et this result as modesto l/abnormal. [facility]2021-02-28 19:51:00 Test Item Value Reference Range Interpretation Comments Alk Phos (test code = Alk Phos) 72 39-136 [facility]2021-02-28 19:51:00 Test Item Value Reference Range Interpretation Comments Bili Total (test code = Bili Total) 0.4 0.2-1.3 [facility]2021-02-28 19:51:00 Test Item Value Reference Range Interpretation Comments AGAP (test code = AGAP) 7.1 10.0-20.0 [facility]2021-02-28 19:51:00 Test Item Value Reference Range Interpretation Comments B/C Ratio (test code = B/C Ratio) 21 1 6-25 [facility]2021-02-28 19:51:00 Test Item Value Reference Range Interpretation Comments Globulin (test code = Globulin) 4.2 2.7-4.2 [facility]2021-02-28 19:51:00 Test Item Value Reference Range Interpretation Comments A/G Ratio (test code = A/G Ratio) 0.8 1 0.7-1.6 [facility]2021-02-28 19:51:00 Test Item Value Reference Range Interpretation Comments eGFR (test code = eGFR) 114 [facility]2021-02-28 19:51:00 Test Item Value Reference Range Interpretation Comments Lipase Lvl (test code = Lipase Lvl) 4020 73-393 [facility]2021-02-28 19:51:00 Test Item Value Reference Range Interpretation Comments Ammonia (test code = Ammonia) 24.0 [place] 993351-02-28 19:51:00 Test Item Value Reference Range Interpretation Comments Lactic Acid Lvl (test code = Lactic 2.6 0.5-2.2 Acid Lvl) [facility] Ce[id number] 19:51:00 Test Item Value Reference Range Interpretation Comments S Preg (test code = S Negative *NA*(09/13/20 Preg) 1:51 PM) [facility] H[id number] 19:51:00 Test Item Value Reference Range Interpretation Comments WBC (test code = WBC) 7.5 3.7-10.4 [facility] H[id number] 19:51:00 Test Item Value Reference Range Interpretation Comments RBC (test code = RBC) 4.01 4.20-5.40 [facility] [id number] 19:51:00 Test Item Value Reference Range Interpretation Comments Hgb (test code = Hgb) 7.8 12.0-16.0 [facility] H[id number] 19:51:00 Test Item Value Reference Range Interpretation Comments Hct (test code = Hct) 24.9 36.0-48.0 [facility] HospitalAbzazhsNVIKIFHYZV1163-05-61 19:51:00 Test Item Value Reference Range Interpretation Comments MCV (test code = MCV) 62.2 80.0-98.0 [facility] HospitalXldqmapMZEVXVLRZP1472-11-89 19:51:00 Test Item Value Reference Range Interpretation Comments MCH (test code = MCH) 19.6 pg 27.0-31.0 [facility] Hos[id number] 19:51:00 Test Item Value Reference Range Interpretation Comments MCHC (test code = MCHC) 31.5 32.0-36.0 [facility] Hos[id number] 19:51:00 Test Item Value Reference Range Interpretation Comments RDW (test code = RDW) 22.6 11.5-14.5 [facility] [id number] 19:51:00 Test Item Value Reference Range Interpretation Comments Platelet (test code = Platelet) 277 133-450 [facility] Ho[id number] 19:51:00 Test Item Value Reference Range Interpretation Comments MPV (test code = MPV) 8.1 7.4-10.4 [facility] HospitalGwezbufPCNRPICUAM7356-01-15 19:51:00 Test Item Value Reference Range Interpretation Comments RBC Morph (test code = See Note (09/13/20 1:51 RBC Morph) PM) [facility] HospitalGpdciukQGCVSTQHQB8005-06-24 19:51:00 Test Item Value Reference Range Interpretation Comments Plt Morph (test code = Normal (09/13/20 1:51 Plt Morph) PM) [facility] H[id number] 19:51:00 Test Item Value Reference Range Interpretation Comments Segs (test code = Segs) 75.9 45.0-75.0 [place] 775961-02-28 19:51:00 Test Item Value Reference Range Interpretation Comments Lymphocytes (test code = Lymphocytes) 13.6 20.0-40.0 [place] 775961-02-28 19:51:00 Test Item Value Reference Range Interpretation Comments Monocytes (test code = Monocytes) 7.4 2.0-12.0 [place] 775961-02-28 19:51:00 Test Item Value Reference Range Interpretation Comments Eosinophils (test code = 2.6 See_Comment [A utomated message] The Eosinophils) system which ge nerated this result tra nsmitted reference range : <=4.0. The reference r yvonne was not used to int erpret this result as normal/abnormal . [address]02-28 19:51:00 Test Item Value Reference Range Interpretation Comments Basophils (test code = 0.5 See_Comment [Aut omated message] The Basophils) system which ge nerated this result tra nsmitted reference range : <=1.0. The reference r yvonne was not used to int erpret this result as normal/abnormal . [place] 775961-02-28 19:51:00 Test Item Value Reference Range Interpretation Comments Neutrophils # (test code = Neutrophils 5.7 1.5-8.1 #) [place] 775961-02-28 19:51:00 Test Item Value Reference Range Interpretation Comments Lymphocytes # (test code = Lymphocytes 1.0 1.0-5.5 #) [place] 775961-02-28 19:51:00 Test Item Value Reference Range Interpretation Comments Monocytes # (test code 0.6 See_Comment [Aut omated message] The = Monocytes #) system which generated this result tra nsmitted reference range : <=0.8. The reference r yvonne was not used to int erpret this result as normal/abnormal . [place] [address]-02-28 19:51:00 Test Item Value Reference Range Interpretation Comments Eosinophils # (test code 0.2 See_Comment [A utomated message] The = Eosinophils #) system [facility] generated this result tra nsmitted reference range : <=0.5. The reference r yvonne was not used to int erpret this result as normal/abnormal . [facility] Ho[id number] 19:51:00 Test Item Value Reference Range Interpretation Comments Anisocyte (test code = 2+ *ABN*(09/13/20 Anisocyte) 1:51 PM) [place] 775961-02-28 19:51:00 Test Item Value Reference Range Interpretation Comments Microcyte (test code = 2+ *ABN*(09/13/20 Microcyte) 1:51 PM) [place] 775961-02-28 19:51:00 Test Item Value Reference Range Interpretation Comments Hypochrom (test code = 1+ (09/13/20 1:51 PM) Hypochrom) [place] 993351-02-28 19:51:00 Test Item Value Reference Range Interpretation Comments Glucose Lvl (test code = Glucose Lvl) 91 70-99 [place] 993351-02-28 19:51:00 Test Item Value Reference Range Interpretation Comments BUN (test code = BUN) 14 7-22 [place] 993351-02-28 19:51:00 Test Item Value Reference Range Interpretation Comments Creatinine Lvl (test code = Creatinine 0.68 0.50-1.40 Lvl) [facility]2021-02-28 19:51:00 Test Item Value Reference Range Interpretation Comments Sodium Lvl (test code = Sodium Lvl) 130 135-145 [place] 993351-02-28 19:51:00 Test Item Value Reference Range Interpretation Comments Potassium Lvl (test code = Potassium 4.1 3.5-5.1 Lvl) [place] 993351-02-28 19:51:00 Test Item Value Reference Range Interpretation Comments Chloride Lvl (test code = Chloride Lvl) 95 95-109 [place] 993351-02-28 19:51:00 Test Item Value Reference Range Interpretation Comments CO2 (test code = CO2) 32 24-32 [place] 993351-02-28 19:51:00 Test Item Value Reference Range Interpretation Comments Calcium Lvl (test code = Calcium Lvl) 8.7 8.5-10.5 [place] 993351-02-28 19:51:00 Test Item Value Reference Range Interpretation Comments Total Protein (test code = Total 7.4 6.4-8.4 Protein) [place] 993351-02-28 19:51:00 Test Item Value Reference Range Interpretation Comments Albumin Lvl (test code = Albumin Lvl) 3.2 3.5-5.0 [place] 993351-02-28 19:51:00 Test Item Value Reference Range Interpretation Comments ALT (test code = ALT) 37 See_Comment [Auto mated message] The system which ge nerated this result transmit afshin reference range : <=65. The reference range was not used to interpr et this result as modesto l/abnormal. [facility]NDSS[facility] [id number] 19:51:00 Test Item Value Reference Range Interpretation Comments AST (test code = AST) 48 See_Comment [Auto mated message] The system which ge nerated this result transmit afshin reference range : <=37. The reference range was not used to interpr et this result as modesto l/abnormal. [facility] [id number] 19:51:00 Test Item Value Reference Range Interpretation Comments Alk Phos (test code = Alk Phos) 72 39-136 [facility]NDSS[facility] [id number] 19:51:00 Test Item Value Reference Range Interpretation Comments Bili Total (test code = Bili Total) 0.4 0.2-1.3 [facility]NDSS[facility] [id number] 19:51:00 Test Item Value Reference Range Interpretation Comments AGAP (test code = AGAP) 7.1 10.0-20.0 [facility] [id number] 19:51:00 Test Item Value Reference Range Interpretation Comments B/C Ratio (test code = B/C Ratio) 21 1 6-25 [facility] [id number] 19:51:00 Test Item Value Reference Range Interpretation Comments Globulin (test code = Globulin) 4.2 2.7-4.2 [facility]NDSS[facility] [id number] 19:51:00 Test Item Value Reference Range Interpretation Comments A/G Ratio (test code = A/G Ratio) 0.8 1 0.7-1.6 [facility]NDSS[facility] [id number] 19:51:00 Test Item Value Reference Range Interpretation Comments eGFR (test code = eGFR) 114 [id number] 19:51:00 Test Item Value Reference Range Interpretation Comments Lipase Lvl (test code = Lipase Lvl) [phone] [facility]2021-02-28 19:51:00 Test Item Value Reference Range Interpretation Comments Ammonia (test code = Ammonia) 24.0 [facility]2021-02-28 19:51:00 Test Item Value Reference Range Interpretation Comments Lactic Acid Lvl (test code = Lactic 2.6 0.5-2.2 Acid Lvl) [facility]IMK[facility]GSWTFJ0131-14-90 19:51:00 Test Item Value Reference Range Interpretation Comments S Preg (test code = S Negative *NA*(09/13/20 Preg) 1:51 PM) [facility]ld[facility]NAIN[facility]ARJ3349-27-49 19:51:00 Test Item Value Reference Range Interpretation Comments WBC (test code = WBC) 7.5 3.7-10.4 [facility] HospitalQujepriYJPIKTJWSJ7693-34-64 19:51:00 Test Item Value Reference Range Interpretation Comments RBC (test code = RBC) 4.01 4.20-5.40 [facility] HospitalKiiefzwMDCLEPKIXL8731-02-98 19:51:00 Test Item Value Reference Range Interpretation Comments Hgb (test code = Hgb) 7.8 12.0-16.0 [facility] HospitalUpaftsnKOAEVWBNDC1247-61-20 19:51:00 Test Item Value Reference Range Interpretation Comments Hct (test code = Hct) 24.9 36.0-48.0 [facility] HospitalMthweexFQOHONNESZ2600-72-14 19:51:00 Test Item Value Reference Range Interpretation Comments MCV (test code = MCV) 62.2 80.0-98.0 [place] [id number] 19:51:00 Test Item Value Reference Range Interpretation Comments MCH (test code = MCH) 19.6 pg 27.0-31.0 [facility] HospitalWfrtnkvEVBEOFIVUY9212-64-67 19:51:00 Test Item Value Reference Range Interpretation Comments MCHC (test code = MCHC) 31.5 32.0-36.0 [place] [id number] 19:51:00 Test Item Value Reference Range Interpretation Comments RDW (test code = RDW) 22.6 11.5-14.5 [place] [id number] 19:51:00 Test Item Value Reference Range Interpretation Comments Platelet (test code = Platelet) 277 133-450 [facility] HospitalPaolpjuCMDDYPDHPI7845-04-52 19:51:00 Test Item Value Reference Range Interpretation Comments MPV (test code = MPV) 8.1 7.4-10.4 [facility] HospitalOhhvbbwBZYBQVECFB4751-88-87 19:51:00 Test Item Value Reference Range Interpretation Comments RBC Morph (test code = See Note (09/13/20 1:51 RBC Morph) PM) [facility] HospitalVlygqsfZIRIZPXVVB8629-92-00 19:51:00 Test Item Value Reference Range Interpretation Comments Plt Morph (test code = Normal (09/13/20 1:51 Plt Morph) PM) [facility] HospitalUsyulleOBHPKZHVTQ1335-26-06 19:51:00 Test Item Value Reference Range Interpretation Comments Segs (test code = Segs) 75.9 45.0-75.0 [place] [id number] 19:51:00 Test Item Value Reference Range Interpretation Comments Lymphocytes (test code = Lymphocytes) 13.6 20.0-40.0 [facility] HospitalNrbeugdRWFIDYGCYN1267-02-65 19:51:00 Test Item Value Reference Range Interpretation Comments Monocytes (test code = Monocytes) 7.4 2.0-12.0 [facility] HospitalTflnbbeILQADQTFBN6853-16-89 19:51:00 Test Item Value Reference Range Interpretation Comments Eosinophils (test code = 2.6 See_Comment [A utomated message] The Eosinophils) system which ge nerated this result tra nsmitted reference range : <=4.0. The reference r yvonne was not used to int erpret this result as normal/abnormal . [facility] HospitalPwnddphYMVOTXSBGH2250-98-30 19:51:00 Test Item Value Reference Range Interpretation Comments Basophils (test code = 0.5 See_Comment [Aut omated message] The Basophils) system which ge nerated this result tra nsmitted reference range : <=1.0. The reference r yvonne was not used to int erpret this result as normal/abnormal . [facility] HospitalEomqjvxBYTLPAYVGC5719-82-58 19:51:00 Test Item Value Reference Range Interpretation Comments Neutrophils # (test code = Neutrophils 5.7 1.5-8.1 #) [facility] HospitalBqckvywEKXJVOFCIU9512-83-30 19:51:00 Test Item Value Reference Range Interpretation Comments Lymphocytes # (test code = Lymphocytes 1.0 1.0-5.5 #) [facility] Hospit[id number] 19:51:00 Test Item Value Reference Range Interpretation Comments Monocytes # (test code 0.6 See_Comment [Aut omated message] The = Monocytes #) system which generated this result tra nsmitted reference range : <=0.8. The reference r yvonne was not used to int erpret this result as normal/abnormal . [facility] HospitalUigovxkBIRJIXHISU8383-34-05 19:51:00 Test Item Value Reference Range Interpretation Comments Eosinophils # (test code 0.2 See_Comment [A utomated message] The = Eosinophils #) system whic h generated this result tra nsmitted reference range : <=0.5. The reference r yvonne was not used to int erpret this result as normal/abnormal . [facility] HospitalEhrbycbTMQRGSBIYR5189-09-62 19:51:00 Test Item Value Reference Range Interpretation Comments Anisocyte (test code = 2+ *ABN*(09/13/20 Anisocyte) 1:51 PM) [facility] HospitalLtsaixbCXODFDZLVJ6222-69-57 19:51:00 Test Item Value Reference Range Interpretation Comments Microcyte (test code = 2+ *ABN*(09/13/20 Microcyte) 1:51 PM) [place] [id number] 19:51:00 Test Item Value Reference Range Interpretation Comments Hypochrom (test code = 1+ (09/13/20 1:51 PM) Hypochrom) [facility]
--- NOTE | 2022-04-05 16:39 | ER ---
Nurse's Notes [facility] Name: Divina Collazo Age: 36 yrs Sex: Female : 1985 Arrival Date: 04/05/2022 Time: 14:03 Bed External Waiting Private MD: Diagnosis: Assessment: 04/05 14:47 Reassessment: called pt for triage and she states; "I told them to hold on, i dont want jh5 to be triaged - i called my sister!". 16:38 Reassessment: Pt still sitting in wheelchair in ER [address] and states that she ss does not want to be seen as a patient and she is waiting on her ride. ED Course: 14:03 Patient arrived in ED. am2 Administered Medications: No medications were administered Outcome: 16:39 Patient left the ED. ss Signatures: Davida Thomas RN RN ss Divina Salazar amMelina Villafana RN RN [id number]
== END 2022-04-05 16:39 | disposition left against medical advice (07) ==
LOC: ER 13:53
DX: Z02.9 Encounter for administrative examinations, unspecified (principal)

== ENCOUNTER 2022-04-06 11:41 | Inpatient (IN) | payer OTHER ==
--- OUTSIDE RECORDS SUMMARY | 2022-04-06 11:59 | XMS REPORT | Continuity of Care Document ---
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 over 4 Hours, 50 mL
Reas on for Anti-Infec tive: Empiric Therapy for Suspected Infection< br>Empiric Therapy Site: Respirator y
Durat ion of therapy: 5 days oxazepam Yes 15mg 15 mg, Univers (SERAX) 03-13 Oral, ity of capsule 15 22:32: Q4HPRN, [place] 41 Starting Medical on [facility] 03/13/22 at 1732, Until Discontinu ed, Routine, Anxiety, Only while awake for DBP equal to or greater than 100, HR equal to or greater than 100. Sliding Yes Subcutaneo Univ ers Scale 03-13 us, TID ity of Insulin - 17:00: MEALS+HS, [place] Lispro 00 First dose Medical (HumaLOG) + on [facility] 03/13/22 at Testing 1200, Until Discontinu ed, Routine ceFEPIme 2021- No 1000mg 1,000 mg, U nivers (MAXIPIME) 03-13 IV ity of 1,000 mg in 16:00: 18:03 [place], [place] NaCl 0.9% 00 :00 ONCE, 1 Medical (NS) 50 mL dose, On Bran h MINI-BAG [place] 03/13/22 at 1100, Administer over 30 Minutes, 50 mL
Reas on for Anti-Infec tive: Empiric Therapy for Suspected Infection< br>Empiric Therapy Site: Respirator y
Durat ion of therapy: 72 hours spironolact Yes 50mg 50 mg, Univ ers one 03-13 Oral, BID, ity of (ALDACTONE) 15:15: First dose [place] tablet 50 00 on [place] Medical mg 03/13/22 at Branch 1015, Until Discontinu ed, Routine fluconazole 2021- Yes 200mg 200 mg, U nivers (DIFLUCAN) 03-13 0902 Oral, ity of tablet 200 15:15: 13:59 DAILY, 5 [place] mg 00 :00 doses, Medical First dose Branch on [place] 03/13/22 at 1015, Last dose on [place] 03/17/22 at 0900, AUSTEN
Re ason for Anti-Infec tive: Documented Infection< br>Documen afshin Infection Site: Respirator y
Durat ion of Therapy: 7 days glucagon Yes 1mg 1 mg, Univers (GLUCAGEN 03-13 Intramuscu ity of DIAGNOSTIC 15:06: [place], PRN, [place] KIT) 44 Starting Medical injection 1 on [facility] mg 03/13/22 at 1006, Until Discontinu ed, AUSTEN, Blood Glucose < or = 70 mg/dL and patient is unable to swallow or has mental changes. dextrose 50 Yes 25mL 25 mL, Univ ers % in water 03-13 Slow IV ity of (D50W) 15:06: Push, PRN, [place] injection 44 Starting Medica l 25 mL on [facility] 03/13/22 at 1006, Until Discontinu ed, AUSTEN, Blood Glucose < or = 70 mg/dL and patient is unable to swallow or has mental status changes. KCL 2021- No 40meq 40 mEq, Univers (KLOR-CON 03-13 Oral, ity of M20) tablet 15:00: 17:27 ONCE, 1 [place] 40 mEq 00 :00 dose, On Medical [facility] 03/13/22 at 1000, Routine docusate Yes 100mg 100 mg, Unive rs (COLACE) 03-13 Oral, ity of capsule 100 14:00: DAILY, [place] mg 00 First dose Medical on [facility] 03/13/22 at 0900, Until Discontinu ed, Routine enoxaparin Yes 40mg 40 mg, Unive rs (LOVENOX) 03-13 Subcutaneo ity of injection 14:00: [place], DAILY, [place] 40 mg 00 First dose Medical on [facility] 03/13/22 at 0900, Until Discontinu ed, Routine SERTraline Yes 50mg 50 mg, Unive rs (ZOLOFT) 03-13 Oral, ity of tablet 50 14:00: DAILY, [place] mg 00 First dose Medical on [facility] 03/13/22 at 0900, Until Discontinu ed, Routine lactulose No 15mL 15 mL, Unive rs (CEPHULAC) 03-13 Oral, ity of solution 15 14:00: 22:33 DAILY, [place] mL 00 :27 First dose Medical on [facility] 03/13/22 at 0900, Until Discontinu ed, Routine foLIC acid No 1mg 1 mg, Unive rs (FOLATE) 03-13 Oral, ity of tablet 1 mg 14:00: 22:42 DAILY, [place] 00 :06 First dose Medical on [facility] 03/13/22 at 0900, Until Discontinu ed, Routine furosemide No 20mg 20 mg, Univ ers (LASIX) 03-13 Slow IV ity of injection 13:00: 15:05 Push, [place] 20 mg 00 :33 Q12H, Medical First dose Branch on [place] 03/13/22 at 0800, Until Discontinu ed, Routine nicotine Yes 1{patch 1 Patch, Un frida (NICODERM) 03-13 } Topical, ity o f 21 mg/24 hr 12:30: Administer [place] patch 1 00 over 24 Medical Patch Hours, Branch Q24H, First dose on [place] 03/13/22 at 0730, Until Discontinu ed, Routine piperacilli 2021- No 3.375g 3.375 g, Univers n-tazobacta 03-13 IV ity of m (ZOSYN) 12:00: 15:09 [place], [place] 3.375 g in 00 :15 Q8H ABX, 5 Med ical NaCl 0.9% doses, Branch (NS) 50 mL First dose MINI-BAG on [place] 03/13/22 at 0700, Last dose on [facility] 03/14/22 at 1500, Administer over 30 Minutes, 50 mL
Reas on for Anti-Infec tive: Empiric Therapy for Suspected Infection< br>Empiric Therapy Site: Abdominal< br>Duratio n of therapy: 5 days ondansetron Yes 4mg 4 mg, Slow Univers (ZOFRAN 03-13 IV Push, ity of (PF)) 07:18: Q6HPRN, [place] injection 4 46 Starting Medi george mg on [facility] 03/13/22 at 0218, Until Discontinu ed, Routine, Nausea and Vomiting (N/V) acetaminoph Yes 650mg 650 mg, Un frida en 03-13 Oral, ity of (TYLENOL) 07:18: Q6HPRN, [place] tablet 650 08 Starting Medic al mg on [facility] 03/13/22 at 0218, Until Discontinu ed, Routine, Pain (scale 1-3) morpHINE (2 Yes 2mg 2 mg, Slow Univers mg/mL) 03-13 IV Push, ity of injection 2 06:59: Q4HPRN, [place] mg 14 Starting Medical on [facility] 03/13/22 at 0159, Until Discontinu ed, Routine, Pain (scale 7-10) oxyCODONE 2021- No 5mg 5 mg, Univer s immediate 03-13 Oral, ity of release 06:58: 12:25 Q4HPRN, [place] tablet 5 mg 36 :23 Starting Medi george on [facility] 03/13/22 at 0158, Until [place] 03/13/22 at 0725, Routine, Pain (scale 4-6)
Fa culty member approving Restricted medication : OFELIA SALDAÑA KCL 2021- No 40meq 40 mEq, Univers (KLOR-CON 03-13 Oral, ity of M20) tablet 05:15: 05:14 ONCE, 1 [place] 40 mEq 00 :00 dose, On Medical [facility] 03/13/22 at 0015, AUSTEN Vancomycin 2021- [...] Take 1 [facility] 03[facility] tablet 00:00: 23:59 (100 mg [...] daily for 7 days. ergocalcife 0 Yes [id number] Q7D Take [address] [facility] 8-25 capsule [facility] (ERGOCALCIF 00:00: (50,000 Med ical LUIS) 1,250 00 Units Center mcg (50,000 total) by unit) mouth once capsule a week. ergocalcife 2021-0 Yes [id number] Q7D Take [address] [facility] 8-25 capsule [facility] (ERGOCALCIF 00:00: (50,000 Med ical LUIS) 1,250 00 Units Center mcg (50,000 total) by unit) mouth once capsule a week. ergocalcife 2021-0 Yes [id number] Q7D Take [address] [facility] 8-25 capsule [facility] (ERGOCALCIF 00:00: (50,000 Med ical LUIS) 1,250 00 Units Center mcg (50,000 total) by unit) mouth once capsule a week. ergocalcife 2021-0 Yes [id number] Q7D Take [address] [facility] 8-25 capsule [facility] (ERGOCALCIF 00:00: (50,000 Med ical LUIS) 1,250 00 Units Center mcg (50,000 total) by unit) mouth once capsule a week. ergocalcife 2021-0 Yes [id number] Q7D Take [address] [facility] [...] 40mg QD Take [address] [facility] 8-10 05-24 tablet (40 [facility] (PROTONIX) 00:00: 23:59 mg total) M edical 40 MG 00 :00 by mouth Center tablet daily for 60 days. rifAXIMin 2021-2021- Yes 550mg Q.5D Take [address] [facility] 550 mg Tab -10 05-24 tablet [facility] 00:00: 23:59 (550 mg Medical 00 :00 total) by Center mouth 2 (two) times daily for 60 days. lactulose 2021-0 2021- Yes 20g Q.5D Take [address] [facility] (CHRONULAC) 8-10 04-24 mLs (20 g Rosa kes 20 gram/30 [...] MEQ tablet daily for 30 days. lactulose 2021-2021- Yes 20g Q.5D Take [address] (CHRONULAC) 8-10 04-24 mLs (20 g Rosa kes 20 gram/30 [...] MEQ tablet daily for 30 days. lactulose 2021-2021- Yes 20g Q.5D Take [address] (CHRONULAC) 8-10 04-24 mLs (20 g Rosa kes 20 gram/30 [...] 20g Q.5D Take [address] (CHRONULAC) 8-24 mLs (20 g Rosa kes 20 gram/30 00:00: 23:59 total) by M edical mL solution 00 :00 mouth 2 Cente r (two) times daily for 30 days. potassium 2021-2021- Yes 10meq QD Take [address] chloride SA 03-10- tablet (10 [facility] (K-DUR,KLOR 00:00: 23:59 [...] L ukes (K-DUR,KLOR 00:00: 23:59 mEq total) [facility]) 10 00 :00 by mouth Cente r MEQ tablet daily for 30 days. omeprazole 0 Yes 40mg Take 40 mg U nivers 40 mg 7-26 by mouth ity of capsule 15:44: in the [place] 12 morning. Medical Branch midodrine 5 2021-0 Yes 5mg Take 5 mg U nivers mg tablet 7-26 by mouth ity of 15:44: in the [place] 12 morning Medical and 5 mg Branch at noon and 5 mg in the evening. lactulose 0 Yes 15mL Take 15 mL Un frida 10 gram/15 7-26 by mouth ity o f mL solution 15:44: in the [facility] 12 morning. Medical Branch ARIPiprazol 0 Yes 10mg Take 10 mg Univers e (ABILIFY) 7-26 by mouth ity of 10 mg 15:44: in the [place] tablet 12 morning. Medical Branch traZODone 0 Yes 50mg Take 50 mg Un frida 50 mg 7-26 by mouth ity of tablet 15:44: at [place] [address] bedtime. Medical Branch sulfamethox 0 Yes 1{tbl} Take 1 Un frida azole-trime 7-26 tablet by ity of thoprim 15:44: mouth in [place] 800-160 mg 12 the Medical per tablet morning Branch and 1 tablet in the evening. buprenorphi [address] 8 mg Univers ne-naloxone 7-26 under the ity of 8-2 mg 15:44: tongue. [place] sublingual Medical film Branch omeprazole 0 Yes 40mg Take 40 mg U nivers 40 mg 7-26 by mouth ity of capsule 15:44: in the [place] [address] morning. Medical Branch midodrine 5 0 Yes 5mg Take 5 mg U nivers mg tablet 7-26 by mouth ity of 15:44: in the [place] [address] morning Medical and 5 mg Branch at noon and 5 mg in the evening. lactulose 0 Yes 15mL Take 15 mL Un frida 10 gram/15 7-26 by mouth ity o f mL solution 15:44: [facility] Branch ARIPiprazol 0 Yes 10mg Take 10 mg Univers e (ABILIFY) 7-26 by mouth ity of 10 mg 15:44: in the [place] tablet 12 morning. Medical Branch traZODone 0 Yes 50mg Take 50 mg Un frida 50 mg 7-26 by mouth ity of tablet 15:44: at [place] [address] bedtime. Medical Branch sulfamethox 0 Yes 1{tbl} Take 1 Un frida azole-trime 7-26 tablet by ity of thoprim 15:44: mouth in [place] 800-160 mg 12 the Medical per tablet morning Branch and 1 tablet in the evening. buprenorphi 2021-[address] 8 mg Univers ne-naloxone 7-26 under the ity of 8-2 mg 15:44: tongue. [place] sublingual Medical film Branch omeprazole 0 Yes 40mg Take 40 mg U nivers 40 mg 7-26 by mouth ity of capsule 15:44: in the [place] 12 morning. Medical Branch midodrine 5 0 Yes 5mg Take 5 mg U nivers mg tablet 7-26 by mouth ity of 15:44: in the [place] 12 morning Medical and 5 mg Branch at noon and 5 mg in the evening. lactulose 2021-0 Yes 15mL Take 15 mL Un frida 10 gram/15 7-26 by mouth ity o f mL solution 15:44: in [facility] morning. Medical Branch ARIPiprazol 0 Yes 10mg Take 10 mg Univers e (ABILIFY) 7-26 by mouth ity of 10 mg 15:44: in the [place] tablet 12 morning. Medical Branch traZODone 0 Yes 50mg Take 50 mg Un frida 50 mg 7-26 by mouth ity of tablet 15:44: at [place] [address] bedtime. Medical Branch sulfamethox 0 Yes 1{tbl} Take 1 Un frida azole-trime 7-26 tablet by ity of thoprim 15:44: mouth in [place] 800-160 mg 12 the Medical per tablet morning Branch and 1 tablet in the evening. buprenorphi [address] 8 mg Univers ne-naloxone 7-26 under the ity of 8-2 mg 15:44: tongue. [place] sublingual 12 Medical film Branch omeprazole 0 Yes 40mg Take 40 mg U nivers 40 mg 7-26 by mouth ity of capsule 15:44: in the [place] 12 morning. Medical Branch midodrine 5 0 Yes 5mg Take 5 mg U nivers mg tablet 7-26 by mouth ity of 15:44: in the [place] 12 morning Medical and 5 mg Branch at noon and 5 mg in the evening. lactulose 2021-0 Yes 15mL Take 15 mL Un frida 10 gram/15 7-26 by mouth ity o f mL solution 15:44: in the [facility] 12 morning. Medical Branch ARIPiprazol 2021-0 Yes 10mg Take 10 mg Univers e (ABILIFY) 7-26 by mouth ity of 10 mg 15:44: in the [place] tablet 12 morning. Medical Branch traZODone 2022-0 Yes 50mg Take 50 mg Un frida 50 mg 7-26 by mouth ity of tablet 15:44: at [place] 12 bedtime. Medical Branch sulfamethox 0 Yes 1{tbl} Take 1 Un frida azole-trime 7-26 tablet by ity of thoprim 15:44: mouth in [place] 800-160 mg 12 the Medical per tablet morning Branch and 1 tablet in the evening. buprenorphi Yes 8mg Place 8 mg Univers ne-naloxone 7-26 under the ity of 8-2 mg 15:44: tongue. [place] sublingual 12 Medical film Branch SERTraline 0 Yes [id number] 50mg Take 1 U nivers (ZOLOFT) 50 7-26 tablet by ity of mg tablet 00:00: [place] 00 the Medical morning. Branch SERTraline 0 Yes [id number] 50mg Take 1 U nivers (ZOLOFT) 50 7-26 tablet by ity of mg tablet 00:00: mouth [place] 00 the Medical morning. Branch SERTraline 0 Yes [id number] 50mg Take 1 U nivers (ZOLOFT) 50 7-26 tablet by ity of mg tablet 00:00: mouth [place] 00 the Medical morning. Branch SERTraline 0 Yes [id number] 50mg Take 1 U nivers (ZOLOFT) 50 7-26 tablet by ity of mg tablet 00:00: mouth [place] 00 the Medical morning. Branch SERTraline 0 Yes [id number] 50mg Take 1 U nivers (ZOLOFT) 50 7-26 tablet by ity of mg tablet 00:00: mouth [place] 00 the Medical morning. Branch SERTraline 0 Yes [id number] 50mg Take 1 U nivers (ZOLOFT) 50 7-26 tablet by ity of mg tablet 00:00: mouth [place] 00 the Medical morning. Branch SERTraline 0 Yes [id number] 50mg Take 1 U nivers (ZOLOFT) 50 7-26 tablet by ity of mg tablet 00:00: mouth [place] 00 the Medical morning. Branch SERTraline 0 2021- No [id number] 50mg Take 1 Univers (ZOLOFT) 50 7-26 09-09 tablet by it y of mg tablet 00:00: 00:00 mouth in [place] 00 :00 the Medical morning. Branch cefdinir [id number] 300mg Take 1 U nivers 300 mg 01-21 capsule by ity of capsule 00:00: 00:00 mouth 2 [place] 00 :00 (two) Medical times Branch daily. ondansetron [id number] 4mg Take 1 Univers 4 mg 01-21 tablet by ity of disintegrat 00:00: 00:00 [place] tablet 00 :00 every 4 Medica l (four) Branch hours as needed for Nausea and Vomiting (N/V). chlordiazeP 2021- No Alcohol Take 2 [place] OXIDE 6-25 06-29 dependence capsules [facility] (LIBRIUM) 00:00: 23:59 [...] No Alcohol Take 2 [place] OXIDE 6-25 06-29 dependence capsules [facility] (LIBRIUM) 00:00: 23:59 [...] No Alcohol Take 2 [place] OXIDE 6-25 06-29 dependence capsules [facility] (LIBRIUM) 00:00: 23:59 [...] No Alcohol Take 2 [place] OXIDE 6-25 06-29 dependence capsules [facility] (LIBRIUM) 00:00: 23:59 with by mouth 2 25 mg 00 :00 unspecified (two) capsule alcohol-ind times a uced day for 1 disorder day, THEN 1 capsule 4 times daily for 1 day, THEN 1 capsule 2 (two) times a day for 1 day, THEN 1 capsule at bedtime nightly for 1 day. foLIC acid 2021-0 Yes [id number] 1mg Take 1 [facility] 1 mg tablet 4-21 tablet by ity of 00:00: mouth [place] 00 daily. Medical Branch foLIC acid 2021-0 Yes [id number] 1mg Take 1 [facility] 1 mg tablet 4-21 tablet by ity of 00:00: mouth [place] 00 daily. Medical Branch foLIC acid 2021-0 Yes [id number] 1mg Take 1 [facility] 1 mg tablet 4-21 tablet by ity of 00:00: mouth [place] 00 daily. Medical Branch foLIC acid 2021-0 Yes [id number] 1mg Take 1 [facility] 1 mg tablet 4-21 tablet by ity of 00:00: mouth [place] 00 daily. Medical Branch foLIC acid 2021-0 Yes [id number] 1mg Take 1 [facility] 1 mg tablet 4-21 tablet by ity of 00:00: mouth [place] 00 daily. Medical Branch foLIC acid 2021-0 Yes [id number] 1mg Take 1 [facility] 1 mg tablet 4-21 tablet by ity of 00:00: mouth [place] 00 daily. Medical Branch foLIC acid 2021-0 Yes [id number] 1mg Take 1 [facility] 1 mg tablet 4-21 tablet by ity of 00:00: mouth [place] 00 daily. Medical Branch foLIC acid 2021-0 2021- No [id number] 1mg Take 1 [facility] 1 mg tablet 4-21 - tablet by it y of 00:00: 00:00 mouth [place] 00 :00 daily. Medical Branch thiamine 2021-0 2021- No [id number] 100mg Take 1 [facility] 100 mg 4-21 - tablet by ity of tablet 00:00: 00:00 mouth [place] 00 :00 daily. Medical Branch varenicline 2021-0 2021- No [id number] Take one Univers (CHANTIX 4-20 -26 0.5mg tab ity o f STARTING 00:00: 00:00 by [place] MONTH BOX) 00 :00 once daily Med ical 0.5 mg for 3 Branch (11)- 1 mg days, then (42) tablet one 0.5mg tab twice daily for 4 days, then one 1mg tab twice daily. varenicline 2021- No [id number] 1mg Take 1 [facility] (CHANTIX 11-03 tablet by ity o f CONTINUING 00:00: 00:00 mouth 2 [place] MONTH BOX) 00 :00 (two) Medical 1 mg tablet times Branch daily. iopamidol 2020- No [id number] 100mL 100 mL, Univers (ISOVUE 11-20 05-07 [...] Weight 50, kg, Start date: 09/16/20 16:00:00 [employer], Duration: 24 hr, Stop date: 09/16/20 16:00:00 [employer]CH[employer]IC, 0 Chlordiazep 0 No 50 mg, 2 Me moria oxide 3-03 cap, l 22:00: Route: PO, Drug form: CAP, Q24H, Dosing Weight 50, kg, Start date: 09/16/20 16:00:00 [employer]CH[employer], Duration: 24 hr, Stop date: 09/16/20 16:00:00 [employer]CH[employer]IC, 0 Chlordiazep 2020-0 No 50 mg, 2 Me moria oxide 3-03 cap, l 03:00: Route: PO, Drug form: CAP, Q12H, Dosing Weight 50, kg, Start date: 09/15/20 21:00:00 [employer]IC, Duration: 24 hr, Stop date: 09/16/20 9:00:00 [employer]CH[employer]IC, 0 Chlordiazep 2020-0 No 50 mg, 2 Me moria oxide 3-03 cap, l 03:00: Route: PO, [place] 00 Drug form: CAP, Q12H, Dosing Weight 50, kg, Start date: 09/15/20 21:00:00 [employer]CH[employer], Duration: 24 hr, Stop date: 09/16/20 9:00:00 [employer]CH[employer]IC, 0 remove No Notes: Memoria patch 3-02 Remove old l 15:00: patch [place] 00 before applicatio n of new patch. WASTE: F/P - P Waste Black; E - P Waste Black remove No Notes: [place] patch 3- Remove old l 15:00: patch [place] 00 before applicatio n of new patch. WASTE: F/P - P Waste Black; E - P Waste Black Chlordiazep No 50 mg, 2 Me moria oxide 3- cap, l 22:00: Route: PO, [place] 00 Drug form: CAP, Q8H, Dosing Weight 50, kg, Start date: 09/14/20 16:00:00 [employer]BE[employer] S[employer]ING MECH[employer]IC, Duration: 24 hr, Stop date: 09/15/20 8:00:00 [employer]BE[employer] S[employer]ING MECH[employer]IC, 0 Chlordiazep No 50 mg, 2 Me moria oxide 3- cap, l 22:00: Route: PO, Drug form: CAP, Q8H, Dosing Weight 50, kg, Start date: 09/14/20 16:00:00 [employer]CH[employer]IC, Duration: 24 hr, Stop date: 09/15/20 8:00:00 [employer]BE[employer]ING MECH[employer]IC, 0 Folic Acid No Notes: Memor ia 3- (Same as: l 15:00: Folvite) multivitami No 1 tab, Theo makayla n 3- Route: PO, l 15:00: Dosing Weight 50, kg, Daily, Start date: 09/14/20 9:00:00 [employer]BE[employer]CH[employer]IC, Duration: 5 day, Stop date: 09/18/20 9:00:00 [employer]CH[employer]IC Thiamine No Notes: Memoria 3- (Same As: l 15:00: Vitamin B1) multivitami No Notes: Theo makayla n with 3- (Same l minerals 15:00: as:Thera-M Her berkowitz 00 , Theragran- ) WASTE: F/P - Black; E - Municipal Trash Bin Give with food. Folic Acid No Notes: Memor ia 3- (Same as: l 15:00: Folvite) multivitami No 1 tab, Theo makayla n 09-14 Route: PO, l 15:00: Dosing Weight 50, kg, Daily, Start date: 09/14/20 9:00:00 [employer]BE[employer]ING MECHANIC, Duration: 5 day, Stop date: 09/18/20 9:00:00 [employer]CH[employer]IC Thiamine No Notes: Memoria 3- (Same As: l 15:00: Vitamin B1) multivitami No Notes: Theo makayla n with 09-14 (Same l minerals 15:00: as:Speedy berkowitz , Theragran- M) WASTE: F/P - Black; [...] mL IM) Shake well before use influenza 2021-0 No Notes: Memori a virus 3- (Same as: l vaccine, 02:50: Fluzone Rehan n inactivated 16 Quadrivale nt, Fluarix Quadrivale nt) For patients 6 - 35 months of age (0.5 mL IM) For 3 years of age and older (0.5 mL IM) Shake well before use Chlordiazep No 50 mg, 2 Me moria oxide 3-01 cap, l 00:00: Route: PO, [place] 00 Drug form: CAP, Q6H, Dosing Weight 50, kg, Start date: 09/13/20 18:00:00 [employer]BE[employer] SIDING MECHANIC, Duration: 24 hr, Stop date: 09/14/20 12:00:00 [employer]BE[employer] SIDING MECHANIC, 0 Chlordiazep No 50 mg, 2 Me moria oxide 3- cap, l 00:00: Route: PO, [place] 00 Drug form: CAP, Q6H, Dosing Weight 50, kg, Start date: 09/13/20 18:00:00 [employer]BE[employer]CH[employer]IC, Duration: 24 hr, Stop date: 09/14/20 12:00:00 [employer]BE[employer] S[employer]ING MECHANIC, 0 cefepime No Notes: Memoria - (Same [...] Total Volume: 1,000, Start date: 09/13/20 15:32:00 [employer]BE[employer] MECH[employer]IC, 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, Stop date: 10/13/20 15:31:00 CDT, 1.53, m2, 0 Ondansetron No Notes: Theo makayla 2-28 (Same as: l 21:32: Zofran) [place] MEDICATION WASTE Product Size: 4 mg Product Wasted: ___ mg Hydromorpho No Notes: Theo makayla ne 2-28 Same as: l 21:32: Dilaudid [place] Lactated No 1,000 mL, Theo makayla [place] IV 09-13 Rate: 125 l 1,000 mL 21:32: ml/hr, [place] 00 Infuse over: 8 hr, Route: IV, Dosing Weight 50 kg, Total Volume: 1,000, Start date: 09/13/20 15:32:00 [employer]BE[employer]OS SIDING MECHANIC, 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, Stop date: 10/13/20 15:31:00 [...] makayla 2-28 (Same As: l 21:18: Rocephin). [place] 00 Use with 100 mL NS and infuse over 30 min MEDICATION WASTE Product Size: 1000 mg Product Wasted: ___ mg Saline No Notes: Memoria Flush 0.9% 09-13 (Same as: l 18:46: BD [place] Posiflush) Sodium No 1,000 mL, Memori a Chloride -28 1000 l 0.9% 18:46: ml/hr, [place] (Bolus) IV 00 Infuse Over: 1 hr, Route: IV, 1,000, Drug form: INJ, ONCE, Priority: STAT, Dosing Weight 50 kg, Start date: 09/13/20 12:46:00 [employer]BE[employer]ING MECHANIC, Stop date: 09/13/20 12:46:00 [employer]BESTOS SIDING MECHANIC, 0 Morphine No Notes: Memoria 2-28 (Same l 18:46: as:MORPhin [place] 00 e Sulfate) Ondansetron No Notes: Theo makayla 2-28 (Same as: l 18:46: Zofran) [place] MEDICATION WASTE Product Size: 4 mg Product Wasted: ___ mg Saline No Notes: Memoria Flush 0.9% 2-28 (Same as: l 18:46: BD [place] Posiflush) Sodium No 1,000 mL, Memori a Chloride 2-28 1000 l 0.9% 18:46: ml/hr, [place] (Bolus) IV 00 Infuse Over: 1 hr, Route: IV, 1,000, Drug form: INJ, ONCE, Priority: STAT, Dosing Weight 50 kg, Start date: 09/13/20 12:46:00 [employer]BE[employer]OS SIDING MECHANIC, Stop date: 09/13/20 12:46:00 ASBESTOS SIDING MECHANIC, 0 Morphine No Notes: Memoria 2-28 (Same l 18:46: as:MORPhin [place] 00 e Sulfate) Ondansetron No Notes: Theo makayla 2-28 (Same as: l 18:46: Zofran) [place] 00 MEDICATION WASTE Product Size: 4 mg [...] # 20 tab, 0 Refill(s) Motrin 600 0 Yes 600 mg = 1 M emoria mg oral 7-13 tab, PO, l tablet 23:27: Q6H, X 5 [place] day, # 20 tab, 0 Refill(s) Motrin No Notes: Memoria 7-13 (Same as: l 22:22: Motrin) [place] "Do Not Crush" Take with food. Motrin No Notes: Memoria 7-13 (Same as: l 22:22: Motrin) [place] "Do Not Crush" Take with food. albuterol [...] Immunizations Ordered Filled Immunization Date Status Comments [facility] e Immunization Name Name Hepatitis B Adult 2022-03-[address] [facility] IM 00:00:00 [facility] [facility] Hepatitis B Adult 2022-03-[address] [facility] 00:00:00 [facility] Hepatitis B Adult 2022-03-[address] [facility] 00[facility]00:00 [facility] Hepatitis B Adult 2022-03-[address] [facility] 00[facility]00:00 [facility] Hepatitis B Adult 2022-03-[address] [facility] 00:00:00 [facility] SARS-COV-2 COVID-19 2021-06-04 Completed [facility] VACCINE 00:00:00 [facility] SARS-COV-2 COVID-19 2021-06-04 Completed Unive rsity of PFIZER VACCINE 00:00:00 [facility] SARS-COV-2 COVID-19 2021-06-04 Completed [facility]ive rs[facility] of PFIZER VACCINE 00:00:00 [facility] SARS-COV-2 COVID-19 2021-06-04 Completed Unive rs[facility] of PFIZER VACCINE 00:00:00 [facility] SARS-COV-2 COVID-19 2021-06-04 Completed Unive rsity of PFIZER VACCINE 00:00:00 [facility] SARS-COV-2 COVID-19 2021-06-04 Completed Unive rs[facility] of PFIZER VACCINE 00:00:00 [facility] SARS-COV-2 COVID-19 2021-06-04 Completed Unive [facility] of PFIZER VACCINE 00:00:00 [facility] SARS-COV-2 COVID-19 2021-06-04 Completed [facility]ive [facility] of PFIZER VACCINE 00:00:00 [facility] SARS-COV-2 COVID-19 2021-06-04 Completed [facility]ive [facility] of PFIZER VACCINE 00:00:00 [facility] SARS-COV-2 COVID-19 2021-06-04 Completed Unive rs[facility] of PFIZER VACCINE 00:00:00 [facility] SARS-COV-2 COVID-19 2021-06-04 Completed Unive rs[facility] of PFIZER VACCINE 00:00:00 [facility] SARS-COV-2 COVID-19 2021-04-30 Completed Unive rs[facility] of PFIZER VACCINE 00:00:00 [facility] SARS-COV-2 COVID-19 2021-04-30 Completed Unive rsity of PFIZER VACCINE 00:00:00 [facility] SARS-COV-2 COVID-19 2021-04-30 Completed [facility]ive rs[facility] of PFIZER VACCINE 00:00:00 [facility] SARS-COV-2 COVID-19 2021-04-30 Completed Unive [facility] of PFIZER VACCINE 00:00:00 [facility] SARS-COV-2 COVID-19 2021-04-30 Completed Unive rsity of PFIZER VACCINE 00:00:00 [facility] SARS-COV-2 COVID-19 2021-04-30 Completed Unive rsity of PFIZER VACCINE 00:00:00 [facility] SARS-COV-2 COVID-19 2021-04-30 Completed Unive rsity of PFIZER VACCINE 00:00:00 [facility] SARS-COV-2 COVID-19 2021-04-30 Completed Unive rs[facility] of PFIZER VACCINE 00:00:00 [facility] SARS-COV-2 COVID-19 2021-04-30 Completed Unive rs[facility] of PFIZER VACCINE 00:00:00 [facility] SARS-COV-2 COVID-19 2021-04-30 Completed [facility]ive [facility] of PFIZER VACCINE 00:00:00 [facility] SARS-COV-2 COVID-19 2021-04-30 Completed Unive rsity of PFIZER VACCINE 00:00:00 [facility] Vital Signs Vital Name Observation Time Observation Value Comments Source Heart rate 2022-04-05 110 /min University 05:15:00 [facility] Oxygen saturation 2022-04-05 100 /min [facility] in Arterial blood 05:15:00 [facility] by Pulse oximetry Howard Systolic blood 2022-04-05 105 mm[Hg] University of pressure 05:00:00 [facility] Diastolic blood 2022-04-05 61 mm[Hg] University o f pressure 05:00:00 [facility] Respiratory rate 2022-04-05 20 /min University 05:00:00 [facility] Body temperature 2022-04-05 37.56 Yas University of 02:13:00 [facility] Body height 2022-04-05 165.1 cm University of 02:13:00 [facility] Body weight 2022-04-05 48.988 kg University of 02:13:00 [facility] BMI 2022-04-05 17.97 kg/m2 University of 02:13:00 [facility] Systolic blood 2022-03-28 103 mm[Hg] University of pressure 18:32:00 [facility] Diastolic blood 2022-03-28 56 mm[Hg] University o f pressure 18:32:00 [facility] Heart rate 2022-03-28 113 /min University of 18:32:00 [facility] Respiratory rate 2022-03-28 16 /min University of 18:32:00 [facility] Oxygen saturation 2022-03-28 99 /min University of in Arterial blood 18:32:00 [facility] george by Pulse oximetry Branch Body temperature 2022-03-28 36.61 Yas University of 16:40:00 [facility] Body height 2022-03-28 165.1 cm University of 16:40:00 [facility] Body weight 2022-03-28 50.803 kg University of 16:40:00 [facility] BMI 2022-03-28 18.64 kg/m2 University of 16:40:00 [facility] Systolic blood 2022-03-25 128 mm[Hg] University of pressure 15:32:00 [facility] Diastolic blood 2022-03-25 77 mm[Hg] University o f pressure 15:32:00 [facility] Heart rate 2022-03-25 105 /min University of 15:32:00 [facility] Body temperature 2022-03-25 37 Yas University of 15:32:00 [facility] Respiratory rate 2022-03-25 20 /min University of 15:32:00 [facility] Oxygen saturation 2022-03-25 95 /min University of in Arterial blood 15:32:00 [facility] by Pulse oximetry Branch Body weight 2022-03-22 51.8 kg University of 01:26:00 [facility] BMI 2022-03-22 19.00 kg/m2 University of 01:26:00 [facility] Body height 2022-03-21 165.1 cm University of 10:12:00 [facility] Systolic blood 2022-03-16 121 mm[Hg] University of pressure 16:54:00 [facility] Diastolic blood 2022-03-16 69 mm[Hg] University o f pressure 16:54:00 [facility] Heart rate 2022-03-16 97 /min University of 16:54:00 [facility] Body temperature 2022-03-16 36.33 Yas University of 16:54:00 [facility] Respiratory rate 2022-03-16 18 /min University of 16:54:00 [facility] Oxygen saturation 2022-03-16 99 /min University of in Arterial blood 16:54:00 [facility] george by Pulse oximetry Branch Body weight 2022-03-16 49.986 kg University of 08:58:00 [facility] BMI 2022-03-16 18.34 kg/m2 University of 08:58:00 [facility] Body height 2022-03-13 165.1 cm University of 07:30:00 [facility] HEIGHT 2022-03-11 165.1 cm 17:49:00 WEIGHT 2022-03-11 [...] 114 mm[Hg] University of pressure 20:45:00 [facility] Diastolic blood 2022-02-08 71 mm[Hg] University o f pressure 20:45:00 [facility] Heart rate 2022-02-08 115 /min University 20:45:00 [facility] Body temperature 2022-02-08 37.22 Yas University 20:45:00 [facility] Body height 2022-02-08 165.1 cm University 20:45:00 [facility] Body weight 2022-02-08 44.861 kg University 20:45:00 [facility] BMI 2022-02-08 16.46 kg/m2 University 20:45:00 [facility] Oxygen saturation 2022-02-08 97 /min [facility] in Arterial blood 20:45:00 [facility] by Pulse oximetry [facility] Systolic blood 2020-11-20 129 mm[Hg] University of pressure 10:29:00 [facility] Diastolic blood 2020-11-20 79 mm[Hg] University o f pressure 10:29:00 [facility] Heart rate 2020-11-20 63 /min [facility] 10:29:00 [facility] Respiratory rate 2020-11-20 13 /min [facility] 10:29:00 [facility] Oxygen saturation 2020-11-20 99 /min [facility] in Arterial blood 10:29:00 [facility] by Pulse oximetry [place] Body temperature 2020-11-20 37 Yas [facility] 08:36:00 [facility] Body weight 2020-11-20 45.36 kg [facility] 08:36:00 [facility] BMI 2020-11-20 16.64 kg/m2 [facility] 08:36:00 [facility] Systolic blood 2022-03-12 130 mm[Hg] [facility] pressure 07:00:00 [facility] Diastolic blood 2022-03-12 89 mm[Hg] [facility] pressure 07:00:00 [facility] Heart rate 2022-03-12 91 /min [facility] 07:00:00 [facility] Body temperature 2022-03-[address] [facility] 07:[facility]:00 [facility] Oxygen saturation 2022-03-12 97 /min [facility] in Arterial blood 07:00:00 [facility] nter by Pulse oximetry Respiratory rate 2022-03-12 18 /min [facility] 06:30:00 [facility] [place] Body height 2022-03-11 165.[address] [facility] 17:49:00 [facility] Body weight 2022-03-11 50.[address] [facility] 17:49:00 [facility] BMI 2022-03-11 18.64 kg/m2 [facility] 17:49:00 [facility] Systolic blood 2022-01-08 119 mm[Hg] [facility] pressure 07:05:00 Diastolic blood 2022-01-08 79 mm[Hg] [facility] h pressure 07:05:00 Heart rate 2022-01-08 101 /min Dany Pérez RN [facility] 07:05:00 Aware. Body temperature 2022-01-08 36.94 Yas [facility] 07:05:00 Respiratory rate 2022-01-08 20 /min [facility] 07:05:00 Oxygen saturation 2022-01-08 95 /min [facility] lth in Arterial blood 07:05:00 by Pulse oximetry Body height 2022-01-07 165.1 cm [facility] 20:42:00 Body weight 2022-01-07 44.453 kg [facility] 20:42:00 BMI 2022-01-07 16.31 kg/m2 [facility] 20:42:00 Systolic (mm Hg) 2020-09-15 [facility] rmann 00:09:00 Diastolic (mm Hg) 2020-09-15 [facility] ermann 00:09:00 Respitory Rate 2020-09-15 [facility] Herm erica 00:09:00 Heart Rate 2020-09-15 [facility] Rehan n 00:09:00 Respitory Rate 2020-09-14 [facility] erica 17:56:00 Heart Rate 2020-09-14 [facility] Rehan n 17:56:00 Systolic (mm Hg) 2020-09-14 [facility] rmann 17:56:00 Diastolic (mm Hg) 2020-09-14 [facility] ermann 17:56:00 Temperature Oral 2020-09-14 98.4 F [facility] rmann (F) 14:00:00 [facility] Resp[facility] Rate 2020-09-14 [facility] Herm erica 14:00:00 Systolic (mm Hg) 2020-09-14 [facility] 14:00:00 Diastolic (mm Hg) 2020-09-14 [facility] 14:00:00 Temperature Oral 2020-09-14 98.3 F [facility] Dick rmann (F) 09:40:00 Respitory Rate 2020-09-14 [facility] 09:40:00 Heart Rate 2020-09-14 [facility] Rehan n 09:40:00 Systolic (mm Hg) 2020-09-14 [facility] 09:40:00 Diastolic (mm Hg) 2020-09-14 [facility] 09:40:00 Temperature Oral 2020-09-14 98.6 F [facility] Dick rmann (F) 05:30:00 Heart Rate 2020-09-14 [facility] [...] erica 01:40:00 Temperature Oral 2020-09-14 98.2 F [facility] Dick rmann (F) 01:40:00 Heart Rate 2020-09-14 [facility] Rehan n 01:40:00 Systolic (mm Hg) 2020-09-14 [facility] 01:40:00 Diastolic (mm Hg) 2020-09-14 [facility] 01:40:00 Height 2020-09-13 167.64 cm [facility] Rehan n 18:45:00 BMI Calculated 2020-09-13 [facility] 18:45:00 Weight 2020-09-13 [facility] Rehan n 18:45:00 Temperature Oral 2020-01-27 98.8 F [facility] Dick rmann (F) 23:51:00 Heart Rate 2020-01-27 [facility] Rehan n 23:51:00 Respitory Rate 2020-01-27 [facility] 23:51:00 Systolic (mm Hg) 2020-01-27 [facility] 23:51:00 Diastolic (mm Hg) 2020-01-27 [facility] ermann 23:51:00 Height 2020-01-27 165.1 cm Marisa Van n 22:21:00 BMI Calculated 2020-01-27 [facility] 22:21:00 Weight 2020-01-27 Marisa Van n 22:21:00 Systolic (mm Hg) 2020-01-27 [facility] Dick rmann 22:21:00 Diastolic (mm Hg) 2020-01-27 [facility] ermann 22:21:00 Heart Rate 2020-01-27 Marisa Van n 22:21:00 Respitory Rate 2020-01-27 Marisa Major erica 22:21:00 Temperature Oral 2020-01-27 98.8 F [facility] Dick rmann (F) 22:21:00 Procedures Procedure Date / Time Performing Clinician Source Performed XR CHEST 1 VW 2022-04-05 Latisha Ramirez [facility] 03:53:06 [facility] COMP. METABOLIC PANEL 2022-04-05 Latisha Ramirez [facility] ([id number]) 03:26:00 [facility] CBC WITH DIFF 2022-04-05 Latisha Ramirez [facility] 03:26:00 [facility] N-TERMINAL PRO-BNP 2022-04-05 Latisha Ramirez [facility] 03:26:00 [facility] CONSENT/REFUSAL FOR 2022-03-28 Doctor Unassigned, [facility] DIAGNOSIS AND TREATMENT 16:37:48 [facility] MAGNESIUM 2022-03-25 [facility] 11:14:00 [facility] BASIC METABOLIC PANEL (NA, 2022-03-25 [place] [facility] K, CL, CO2, GLUCOSE, BUN, 11:14:00 [facility] CREATININE, CA) CBC WITH DIFF 2022-03-25 [facility] 11:14:00 [facility] BASIC METABOLIC PANEL (NA, 2022-03-24 Nina Davida [facility] K, CL, CO2, GLUCOSE, BUN, 14:11:00 [facility] CREATININE, CA) MAGNESIUM 2022-03-24 [facility] 07:35:00 [facility] BASIC METABOLIC PANEL (NA, 2022-03-24 [facility] [place] K, CL, CO2, GLUCOSE, BUN, 07:35:00 [facility] CREATININE, [place]) URINALYSIS 2022-03-24 [facility] 07:24:00 [facility] EXTRA TUBE URINE CULTURE 2022-03-24 Esme Edwards [facility] 07:24:00 Medical Branch BASIC METABOLIC PANEL (NA, 2022-03-23 [facility] [place] K, CL, CO2, GLUCOSE, BUN, 20:11:00 [facility] CREATININE, CA) MAGNESIUM 2022-03-23 [facility] 10:47:00 [facility] HEPATIC FUNCTION PANEL 2022-03-23 [facility] ([id number]) (ALB,T.PRO,BILI 10:47:00 [facility] T,BU/BC,ALT,AST,ALK PHOS) BASIC METABOLIC PANEL (NA, 2022-03-23 [facility] [place] K, CL, CO2, GLUCOSE, BUN, 10:47:00 [facility] CREATININE, CA) CBC WITH DIFF 2022-03-23 [facility] 10:47:00 [facility] BASIC METABOLIC PANEL (NA, 2022-03-22 [facility] [place] K, CL, CO2, GLUCOSE, BUN, 21:28:00 [facility] CREATININE, CA) BASIC METABOLIC PANEL (NA, 2022-03-22 [facility] [place] K, CL, CO2, GLUCOSE, BUN, 14:46:00 Medica l Branch CREATININE, CA) BASIC METABOLIC PANEL (NA, 2022-03-22 [facility] [place] K, CL, CO2, GLUCOSE, BUN, 09:56:00 Medica Branch CREATININE, CA) CBC WITH DIFF 2022-03-22 [facility] 09:56:00 [facility] PROTHROMBIN TIME / INR 2022-03-22 [facility] 09:56:00 [facility] ACTIVATED PARTIAL THRMPLAS 2022-03-22 [facility] HEATHER 09:56:00 [facility] HEPATIC FUNCTION PANEL 2022-03-22 [facility] ([id number]) (ALB,T.PRO,BILI 06:12:00 [facility] T,BU/BC,ALT,AST,ALK PHOS) BASIC METABOLIC PANEL (NA, 2022-03-22 [facility] K, CL, CO2, GLUCOSE, BUN, 06:12:00 Medica l Branch CREATININE, CA) HB ABO GROUPING 2022-03-21 [facility] xas 21:15:00 [facility] MISCELLANEOUS SEND OUT TEST 2022-03-21 Esme Edwards [facility] 21:11:00 [facility] VITAMIN K1, LEVEL 2022-03-21 [facility] 21:07:00 [facility] QUANTIFERON-TB ASSAY 2022-03-21 [facility] 21:07:00 [facility] SMOOTH MUSCLE AB,IGG 2022-03-21 [facility] W/REFLEX 21:06:00 [facility] [id number] 2022-03-21 [facility] [place] PHENOTYPE 21:06:00 [facility] VITAMIN E, SERUM OR PLASMA 2022-03-21 [facility] 21:06:00 [facility] VITAMIN A, SERUM OR PLASMA 2022-03-21 [facility] 21:06:00 [facility] CERULOPLASMIN 2022-03-21 [facility] xas 21:06:00 [facility] TEST, SERUM 2022-03-21 [facility] 21:06:00 [facility] IMMUNOGLOBULIN G A M PANEL 2022-03-21 [facility] 21:06:00 [facility] FREE T4 2022-03-21 [facility] xas 21:06:00 [facility] ALPHA FETOPROTEIN 2022-03-21 [facility] 21:06:00 [facility] IRON PANEL 2022-03-21 [facility] xa 21:06:00 [facility] MEASLES IGG 2022-03-21 [facility] xa 21:06:00 [facility] RUBELLA SCREEN IGG 2022-03-21 [facility] 21:06:00 [facility] TOXOPLASMA IGG ANTIBODY 2022-03-21 [facility] 21:06:00 [facility] EBV NUCLEAR ANTIGEN IGG TEST 2022-03-21 [facility] 21:06:00 [facility] CYTOMEGALOVIRUS ANTIBODY IGG 2022-03-21 [facility] 21:06:00 [facility] VZV ANTIBODY SCREEN 2022-03-21 [facility] [place] 21:06:00 [facility] ANTI-NUCLEAR ANTIBODY SCREEN 2022-03-21 [facility] 21:06:00 [facility] CRYPTOCOCCAL ANTIGEN 2022-03-21 [facility] CSF/SERUM 21:06:00 [facility] HAV ANTIBODY (IGG AND IGM) 2022-03-21 [facility] 21:06:00 [facility] ANTI-NUCLEAR ANTIBODY TITER 2022-03-21 [facility] 21:06:00 [facility] VITAMIN D, 25-OH 2022-03-21 [facility] exas 21:06:00 [facility] HSV 1 AND 2 GLYCOPROTEIN G 2022-03-21 [facility] IGG 21:06:00 [facility] ANTI-SSA(RO) 2022-03-21 [facility] xa 21:06:00 [facility] EXTRA TUBE LT. GREEN 2022-03-21 [facility] 21:06:00 [facility] GALV ONLY - SYPHILIS IGG/IGM 2022-03-21 [facility] 21:06:00 [facility] ANTI-NUCLEAR 2022-03-21 [facility] xas ANTIBODY-PATHOLOGIST 21:06:00 [facility] INTERPRETATION BASIC METABOLIC PANEL (NA, 2022-03-21 [facility] K, CL, CO2, GLUCOSE, BUN, 21:04:00 [facility] CREATININE, CA) URINALYSIS 2022-03-21 [facility] xa 20:07:00 [facility] URINE CULTURE 2022-03-21 [facility] xa 20:07:00 [facility] CREATININE, URINE RANDOM 2022-03-21 [facility] 20:07:00 [facility] TOTAL PROTEIN, URINE RANDOM 2022-03-21 [facility] 20:07:00 [facility] URINE DRUG (LCMSMS) - 2022-03-21 [facility] COMPREHENSIVE DRUG PANEL 20:07:00 [facility] OSMOLALITY URINE 2022-03-21 [facility] 20:06:00 [facility] SODIUM, URINE RANDOM 2022-03-21 [facility] 20:06:00 [facility] US ARTERIAL IN OR VENOUS OUT 2022-03-21 [facility] ABDOMEN LIMITED DOPPLER 18:59:24 [facility] GAMMA GLUTAMYLTRANSFERASE 2022-03-21 [facility] 15:06:00 [facility] FERRITIN SERUM 2022-03-21 [facility] xa 15:06:00 [facility] OSMOLALITY, SERUM OR PLASMA 2022-03-21 [facility] 15:06:00 [facility] TRIIODOTHYRONINE 2022-03-21 [facility] ex 15:06:00 [facility] THYROID STIMULATING HORMONE 2022-03-21 [facility] 15:06:00 [facility] BASIC METABOLIC PANEL (NA, 2022-03-21 [facility] K, CL, CO2, GLUCOSE, BUN, 15:06:00 [facility] CREATININE, [place]) LIPID PANEL ([id number])(TOTAL 2022-03-21 [facility] CHOLESTEROL, TRIGLYCERIDES, 15:06:00 [facility] HDL) COMP. METABOLIC PANEL 2022-03-21 [facility] ([id number]) 10:20:00 [facility] ETHANOL 2022-03-21 [facility] exas 10:20:00 [facility] PROTHROMBIN TIME / INR 2022-03-21 [facility] 10:20:00 [facility] FIBRINOGEN 2022-03-21 Amb[facility] ex 10:20:00 [facility] ALBUMIN BODY FLUID 2022-03-21 Amb[facility] 07:45:00 [facility] T.PROTEIN BODY FLUID 2022-03-21 Amb[facility] 07:45:00 [facility] BODY FLUID DIRECT COUNT 2022-03-21 Ambika [facility] 07:45:00 [facility] BODY FLUID (BACTEC BOTTLE) [facility]03-[facility] AMMONIA, PLASMA 2022-03-21 [facility] 05:11:00 [facility] G6PD SCREENING TEST 2022-03-21 [facility] 05:11[facility]00 [facility] HB ECG ROUTINE & RHYTHM 2022-03-21 Hannah Santos [facility] STRIP 02:20:13 [facility] LIPASE 2022-03-21 Tom [facility] 02:12:00 [facility] TROPONIN I 2022-03-21 Tom [facility] 02:12:00 [facility] COMP. METABOLIC PANEL 2022-03-21 Hannah Santos [facility] ([id number]) 02:12:00 [facility] ETHANOL 2022-03-21 Tom [facility] ex 02:12:00 [facility] CBC WITH DIFF 2022-03-21 Tom [facility] 02:12:00 [facility] N-TERMINAL PRO-BNP 2022-03-21 Tom [facility] 02:12:00 [facility] COVID-19 (ID NOW RAPID 2022-03-21 Tom Hannah [facility] TESTING) 02:12:00 [facility] LAB ONLY COVID 2022-03-21 Tom [facility] INTERPRETATION 02:12:00 [facility] XR CHEST 1 VW 2022-03-21 Tom [facility] ex 01:26:00 [facility] HOSPITAL ADMISSION 2022-03-20 Doctor Unassigned, [facility] 05:01:[address] [place] [facility] POCT GLUCOSE (AUTOMATED) 2022-03-16 Daw[facility] 16:53:00 [facility] POCT GLUCOSE (AUTOMATED) 2022-03-16 Dawit [facility] 13:22:00 [facility] LACTATE DEHYDROGENASE 2022-03-16 Antolin [facility] 09:17:00 [facility] MAGNESIUM 2022-03-16 Antolin [facility] xas 09:17:00 [facility] BASIC METABOLIC PANEL (NA, 2022-03-16 [place] Dangelo [facility] K, CL, CO2, GLUCOSE, BUN, 09:17:00 [facility] CREATININE, CA) CBC WITH DIFF 2022-03-16 Antolin [facility] xa 09:17:00 [facility] POCT GLUCOSE (AUTOMATED) 2022-03-16 Dawit [facility] 01:58:00 [facility] GLUCOSE BODY FLUID 2022-03-15 Antolin [facility] 22:25:00 [facility] T.PROTEIN BODY FLUID 2022-03-15 Antolin [facility] 22:25:00 [facility] LDH TOTAL BODY FLUID 2022-03-15 Antolin [facility] 22:25:00 [facility] BODY FLUID DIRECT COUNT 2022-03-15 [place] Dangelo [facility] 22:25:00 [facility] BODY FLUID 2022-03-15 Cassius Viera [facility] CULTURE(AEROBIC/ANAEROBIC) 22:25:00 [facility] POCT GLUCOSE (AUTOMATED) 2022-03-15 Dawit [facility] 21:38:00 [facility] POCT GLUCOSE (AUTOMATED) 2022-03-15 [facility] 15:56:00 [facility] POCT GLUCOSE (AUTOMATED) 2022-03-15 [facility] 12:57:00 [facility] MAGNESIUM 2022-03-15 Antolin [facility] xa 09:30:00 [facility] COMP. METABOLIC PANEL 2022-03-15 Antolin [facility] ([id number]) 09:30:00 [facility] CBC WITH DIFF 2022-03-15 Antolin [facility] xa 09:30:00 [facility] POCT GLUCOSE (AUTOMATED) 2022-03-15 [facility] 01:54:00 [facility] POCT GLUCOSE (AUTOMATED) 2022-03-14 [facility] 21:22:00 [facility] POCT GLUCOSE (AUTOMATED) 2022-03-14 [facility] 16:40:00 [facility] POCT GLUCOSE (AUTOMATED) 2022-03-14 [facility] 12:51:00 [facility] MAGNESIUM 2022-03-14 [facility]00 [facility] BASIC METABOLIC PANEL (NA, 2022-03-14 [place] Dangelo [facility] K, CL, CO2, GLUCOSE, BUN, 08:54:00 [facility] CREATININE, CA) CBC WITH DIFF 2022-03-14 Antolin [facility] xas 08:54:00 [facility] POCT GLUCOSE (AUTOMATED) 2022-03-14 [facility] 01:19:00 [facility] POCT GLUCOSE (AUTOMATED) 2022-03-13 [facility] 21:38:00 [facility] POCT GLUCOSE (AUTOMATED) 2022-03-13 [facility] 18:09:00 [facility] TEST, SERUM 2022-03-13 Robles Hernandez [facility] 04:05:00 [facility] COMP. METABOLIC PANEL 2022-03-13 Robles Hernandez [facility] ([id number]) 04:05:00 [facility] CT HEAD WO CONTRAST 2022-03-13 Robles Hernandez [facility] 03:18:54 [facility] XR CHEST 1 VW 2022-03-13 Robles Hernandez [facility] 03:17:50 [facility] BLOOD CULTURE SCREEN 2022-03-13 Robles Hernandez [facility] 02:57:00 [facility] LIPASE 2022-03-13 Robles Hernandez [facility] 02:57:00 [facility] AMMONIA, PLASMA 2022-03-13 Robles Hernandez [facility] 02:57:00 [facility] TROPONIN I 2022-03-13 Robles Hernandez [facility] 02:57:00 [facility] CBC WITH DIFF 2022-03-13 Robles Hernandez [facility] 02:57:00 [facility] PROTHROMBIN TIME / INR 2022-03-13 Robles Hernandez [facility] 02:57:00 [facility] N-TERMINAL PRO-BNP 2022-03-13 Robles Hernandez [facility] 02:57:00 [facility] RAPID INFLUENZA A/B 2022-03-13 Robles Hernandez [facility] 02:48:00 [facility] COVID-19 (ID NOW RAPID 2022-03-13 Robles Hernandez [facility] TESTING) 02:48:00 [facility] LAB ONLY COVID 2022-03-13 Robles Hernandez [facility] INTERPRETATION 02:48:00 [facility] ED ECG INTERPRETATION 2022-03-12 Tanisha Quiroz [facility] 08:36:10 [facility] ECG 12-LEAD 2022-03-12 Unknown, Hl7 Doctor [facility] 06:37:07 [facility] ECG 12-LEAD 2022-03-12 Unknown, Hl7 Doctor [facility] 06:37:07 [facility] ECG 12-LEAD 2022-03-[address] [facility] 06:35:45 [facility] ECG 12-LEAD 2022-03-12 Unknown, Hl7 Doctor [facility] 06:35:45 [facility] ECG 12-LEAD 2022-03-12 Unknown, Hl7 Doctor [facility] 06:35:45 [facility] CBC W/PLT COUNT & AUTO 2022-03-[address] [facility] DIFFERENTIAL 00:56:00 [facility] COMPREHENSIVE METABOLIC 2022-03-[address] [facility] PANEL 00:56:00 [facility] CBC W/PLT COUNT & AUTO 2022-03-[address] [facility] DIFFERENTIAL 00:56:00 [facility] POCT-GLUCOSE METER 2022-03-[address] [facility] 08:37:00 [facility] XR CHEST 1 VIEW PORTABLE / 2022-03-11 Jen Anne [facility] BED[facility]IDE 06:59:00 [facility] CBC (HEMOGRAM ONLY) 2022-03-[address] [facility] 04:18:00 [facility] COMPREHENSIVE METABOLIC 2022-03-[address] [facility] PANEL 04:18:00 [facility] PHOSPHORUS 2022-03-11 Trevon Espinoza Artur [facility] 04:18:00 [facility] MAGNESIUM 2022-03-11 Alexis Vincent Art[address] [facility] 04:18:00 [facility] CALCIUM, IONIZED 2022-03-11 Alexis, Vincnany Rioso [facility] 04:18:00 [facility] FIBRINOGEN 2022-03-[address] [facility] 04:18:00 [facility] LACTIC ACID, ARTERIAL 2022-03-[address] [facility] 04:18:00 [facility] PROTHROMBIN TIME/INR 2022-03-[address] [facility] 04:18:00 [facility] EKG-SCANNED 2022-03-[address] [facility] 00:00:00 [facility] POCT-GLUCOSE METER 2022-03-[address] [facility] [facility] 20:53:00 [facility] POCT-GLUCOSE METER 2022-03-10 [place]un[place], [facility] 17:11:00 [facility] POCT-GLUCOSE METER 2022-03-[address] [facility] 13:17:00 [facility] CBC (HEMOGRAM ONLY) 2022-03-[address] [facility] 06:16:00 [facility] COMPREHENSIVE METABOLIC 2022-03-[address] [facility] PANEL 06:16:00 [facility] PHOSPHORUS 2022-03-10 Trevon Espinoza Artur [facility] 06:16:00 [facility] MAGNESIUM 2022-03-10 Trevon Espinoza Artur [facility] 06:16:00 [facility] CALCIUM, IONIZED 2022-03-[address] [facility] 06:16:00 [facility] FIBRINOGEN 2022-03-[address] [facility] 06:16:00 [facility] LACTIC ACID, ARTERIAL 2022-03-[address] [facility] 06:16:00 [facility] PROTHROMBIN TIME/INR 2022-03-[address] [facility] 06:16:00 [facility] POCT-GLUCOSE METER 2022-03-09 [place]un[place], [facility] 21:09:00 [facility] HEREDITARY HEMOCHROMATOSIS 2022-03-09 Juan Maki [facility] 15:20:00 [facility] POCT-GLUCOSE METER 2022-03-09 [facility] 11:07:00 [facility] POCT-GLUCOSE METER 2022-03-[address] [facility] [facility] 07:30:00 [facility] XR CHEST 1 VIEW PORTABLE / 2022-03-09 Jen Anne [facility] 07:09:00 [facility] SARS-COV2/RT-PCR (HS & REF 2022-03-[address] [facility] LABS) 05:25:00 [facility] CBC (HEMOGRAM ONLY) 2022-03-[address] [facility] 04:37:00 [facility] COMPREHENSIVE METABOLIC 2022-03-[address] [facility] PANEL 04:37:00 [facility] PHOSPHORUS 2022-03-[address] [facility] 04:37:00 [facility] MAGNESIUM 2022-03-[address] [facility] 04:37:00 [facility] CALCIUM, IONIZED 2022-03-[address] [facility] 04:37:00 [facility] FIBRINOGEN 2022-03-[address] [facility] 04:37:00 [facility] LACTIC ACID, ARTERIAL 2022-03-[address] [facility] 04:37:00 [facility] PROTHROMBIN TIME/INR 2022-03-[address] [facility] 04:37:00 [facility] POCT-GLUCOSE METER 2022-03-[address] [facility] [facility] 21:07:00 [facility] POCT-GLUCOSE METER 2022-03-08 [place], [facility] 17:09:00 [facility] POCT-GLUCOSE METER 2022-03-08 [place]un[place], [facility] 10:58:00 [facility] POTASSIUM 2022-03-[address] [facility] 10:08:00 [facility] PHOSPHORUS 2022-03-[address] [facility] 07:54:00 [facility] POCT-GLUCOSE METER 2022-03-08 [facility] 07:29:00 [facility] POCT-GLUCOSE METER 2022-03-[address] [facility] [facility] 06:57:00 [facility] BLOOD GAS, ARTERIAL 2022-03-[address] [facility] 03:54:00 [facility] CBC (HEMOGRAM ONLY) 2022-03-[address] [facility] 03:53:00 [facility] COMPREHENSIVE METABOLIC 2022-03-[address] [facility] PANEL 03:53:00 [facility] PHOSPHORUS 2022-03-[address]ao [facility] 03:53:00 [facility] MAGNESIUM 2022-03-08 Trevon Espinoza Artur [facility] 03:53:00 [facility] CALCIUM, IONIZED 2022-03-08 Trevon Espinoza Chao [facility] 03:53:00 [facility] FIBRINOGEN 2022-03-[address] [facility] 03:53:00 [facility] LACTIC ACID, ARTERIAL 2022-03-08 [address]ao [facility] 03:53:00 [facility] PROTHROMBIN TIME/INR 2022-03-[address] [facility] 03:53:00 [facility] HEPATITIS A ANTIBODY, IGG 2022-03-[address] [facility] 03:53:00 [facility] HEREDITARY HEMOCHROMATOSIS 2022-03-08 Yrn Aleman [facility] 03:53:00 [facility] CMV PCR, QUANTITATIVE 2022-03-[address] [facility] 03:53:00 [facility] OXYGEN SATURATION, MEASURED 2022-03-[address] [facility] 03:48:00 [facility] XR CHEST 1 VIEW PORTABLE / 2022-03-08 Jen Anne [facility] 02:45:00 [facility] POCT-GLUCOSE METER 2022-03-[address] [facility] 22:24:00 [facility] POTASSIUM 2022-03-[address] [facility] 22:18:00 [facility] POTASSIUM 2022-03-[address] [facility] 17:49:00 [facility] MAGNESIUM 2022-03-[address] [facility] 17:49:00 [facility] POCT-GLUCOSE METER 2022-03-[address] [facility] 16:12:00 [facility] POCT-GLUCOSE METER 2022-03-[address] [facility] [facility] 09:46:00 [facility] CALCIUM, IONIZED 2022-03-[address] [facility] 04:17:00 [facility] CBC (HEMOGRAM ONLY) 2022-03-[address] [facility] 03:37:00 [facility] COMPREHENSIVE METABOLIC 2022-03-[address] [facility] PANEL 03:37:00 [facility] PHOSPHORUS 2022-03-[address] [facility] 03:37:00 [facility] MAGNESIUM 2022-03-[address] Chao [facility] 03:37:00 [facility] FIBRINOGEN 2022-03-[address] [facility] 03:37:00 [facility] LACTIC ACID, ARTERIAL 2022-03-[address] [facility] 03:37:00 [facility] PROTHROMBIN TIME/INR 2022-03-[address] [facility] 03:37:00 [facility] BLOOD GAS, ARTERIAL 2022-03-[address] [facility] 03:36:00 [facility] XR CHEST 1 VIEW PORTABLE / 2022-03-07 Jen Anne [facility] 01:25:00 [facility] VANCOMYCIN LEVEL, TROUGH 2022-03-[address] [facility] 00:13:00 [facility] POCT-GLUCOSE METER 2022-03-[address] [facility] 16:30:00 [facility] BRONCHIAL CULTURE + GRAM 2022-03-06 Saldivar, Moshe Pérez [facility] STAIN 12:24:00 [facility] AFB CULTURE + SMEAR 2022-03-06 Saldivar, Moshe Pérez [facility] (NON-SPUTUM) 12:24:00 [facility] FUNGUS CULTURE + SMEAR 2022-03-06 Saldivar, Moshe Pérez [facility] 12:24:00 [facility] SPIN/CONCENTRATION CHARGE 2022-03-06 Saldivar, Moshe Pérez [facility] 12:24:00 [facility] BLOOD GAS, ARTERIAL 2022-03-06 Saldivar, Moshe Pérez [facility] 12:23:00 [facility] POCT-GLUCOSE METER 2022-03-06 Saldivar, Moshe Pérez [facility] 12:23:00 [facility] BLOOD GAS, ARTERIAL 2022-03-[address] [facility] 04:24:00 [facility] ECG 12-LEAD 2022-03-06 Unknown, Hl7 Doctor [facility] 04:18:31 [facility] ECG 12-LEAD 2022-03-06 Unknown, Hl7 Doctor [facility] 04:18:31 [facility] ECG 12-LEAD 2022-03-06 Unknown, Hl7 Doctor [facility] 04:18:31 [facility] ECG 12-LEAD 2022-03-06 Unknown, Hl7 Doctor [facility] 04:10:50 [facility] ECG 12-LEAD 2022-03-06 Unknown, Hl7 Doctor [facility] 04:10:50 [facility] CBC (HEMOGRAM ONLY) 2022-03-[address] [facility] 04:05:00 [facility] COMPREHENSIVE METABOLIC 2022-03-[address] [facility] PANEL 04:05:00 [facility] PHOSPHORUS 2022-03-[address] [facility] 04:05:00 [facility] MAGNESIUM 2022-03-[address] [facility] 04:05:00 [facility] CALCIUM, IONIZED 2022-03-[address] [facility] 04:05:00 [facility] FIBRINOGEN 2022-03-[address] [facility] 04:05:00 [facility] LACTIC ACID, ARTERIAL 2022-03-06 Trevon Espinoza Artur [facility] 04:05:00 [facility] PROTHROMBIN TIME/INR 2022-03-[address] [facility] 04:05:00 [facility] OXYGEN SATURATION, MEASURED 2022-03-06 Alexis Trevon Siddiqui [facility] 04:05:00 [facility] POCT-GLUCOSE METER 2022-03-[address] [facility] 01:08:00 [facility] XR CHEST 1 VIEW PORTABLE / 2022-03-06 [facility] 00:54:00 [facility] POCT-GLUCOSE METER 2022-03-[address] [facility] 19:57:00 [facility] POCT-GLUCOSE METER 2022-03-05 Mos[address]ique [facility] 18:18:00 [facility] BLOOD GAS, ARTERIAL 2022-03-[address] [facility] 15:35:00 [facility] BLOOD GAS, ARTERIAL 2022-03-[address] [facility] 14:42:00 [facility] POCT-GLUCOSE METER 2022-03-[address] [facility] 12:42:00 [facility] MR ABDOMEN WITH & WITHOUT IV 2022-03-[address] [facility] CONTRAST 11:40:00 [facility] XR CHEST 1 VIEW PORTABLE / 2022-03-05 Dat Grajeda [facility] 11:37:00 [facility] POCT-GLUCOSE METER 2022-03-[address] [facility] 05:45:00 [facility] BLOOD GAS, ARTERIAL 2022-03-[address] [facility] 04:55:00 [facility] CBC (HEMOGRAM ONLY) 2022-03-[address] [facility] 04:54:00 [facility] COMPREHENSIVE METABOLIC 2022-03-[address] [facility] PANEL 04:54:00 [facility] PHOSPHORUS 2022-03-[address] [facility] 04:54:00 [facility] MAGNESIUM 2022-03-[address] [facility] 04:54:00 [facility] Center CALCIUM, IONIZED 2022-03-05 [address] [facility] 04:54:00 [facility] FIBRINOGEN 2022-03-[address] [facility] 04:54:00 [facility] LACTIC ACID, ARTERIAL 2022-03-[address] [facility] 04:54:00 [facility] PROTHROMBIN TIME/INR 2022-03-[address] [facility] 04:54:00 [facility] OXYGEN SATURATION, MEASURED 2022-03-05 Trevon Espinoza Chaclara [facility] 04:54:00 [facility] PREPARE CRYOPRECIPITATE 2022-03-[address] [facility] 23:54:00 [facility] POCT-GLUCOSE METER 2022-03-[address] [facility] 23:43:00 [facility] POCT-GLUCOSE METER 2022-03-[address] [facility] 17:55:00 [facility] CORTISOL,60 MIN 2022-03-[address] [facility] 15:48:00 [facility] CORTISOL,30 MIN 2022-03-04 Berta Esp[address]zan[address] Artur [facility] 15:13:00 [facility] POCT-GLUCOSE METER 2022-03-[address] [facility] 15:02:00 [facility] OXYGEN SATURATION, MEASURED 2022-03-[address] [facility] 14:42:00 [facility] US GUIDE, VASCULAR ACCESS 2022-03-04 [address] [facility] 13:14:12 [facility] AMMONIA 2022-03-[address] [facility] 12:26:00 [facility] XR CHEST 1 VIEW PORTABLE / 2022-03-04 Jen Anne [facility] 12:14:00 [facility] ACTH STIMULATION 2022-03-[address] [facility] 12:11:00 [facility] VANCOMYCIN LEVEL, TROUGH 2022-03-[address] [facility] 12:11:00 [facility] CORTISOL,BASELINE 2022-03-[address] [facility] 12:11:00 [facility] MISCELLANEOUS LAB ORDER 2022-03-[address] [facility] 10:19:00 [facility] T SPOT TB 2022-03-[address] [facility] 10:19:00 [facility] VITAMIN B12 2022-03-[address] [facility] 10:19:00 [facility] URINALYSIS W/ REFLEX URINE 2022-03-04 Jeramy Harley [facility] CULTURE 10:16:00 [facility] POCT-GLUCOSE METER 2022-03-[address] [facility] 06:41:00 [facility] CBC (HEMOGRAM ONLY) 2022-03-[address] [facility] 04:10:00 [facility] COMPREHENSIVE METABOLIC 2022-03-[address] [facility] PANEL 04:10:00 [facility] PHOSPHORUS 2022-03-[address] [facility] 04:10:00 [facility] MAGNESIUM 2022-03-[address] [facility] 04:10:00 [facility] CALCIUM, IONIZED 2022-03-[address] [facility] 04:10:00 [facility] BLOOD GAS, VENOUS 2022-03-[address] [facility] 04:10:00 [facility] FIBRINOGEN 2022-03-[address] [facility] 04:10:00 [facility] PERIPHERAL BLOOD SMEAR - 2022-03-[address] [facility] PATHOLOGIST REVIEW 04:10:00 [facility] r RETICULOCYTE COUNT 2022-03-[address] [facility] 04:10:00 [facility] (MANUAL DIFFERENTIAL) 2022-03-[address] [facility] 04:10:00 [facility] CORTISOL 2022-03-[address] [facility] 00:55:00 [facility] POCT-GLUCOSE METER 2022-03-[address] [facility] 00:43:00 [facility] PHOSPHORUS 2022-03-[address] [facility] 22:06:00 [facility] CALCIUM, IONIZED 2022-03-03 Omid, Jen [facility] 22:06:00 [facility] BASIC METABOLIC PANEL (7) 2022-03-[address] [facility] 22:06:00 [facility] LACTIC ACID, VENOUS 2022-03-03 Esme Ash [address]von [facility] 22:06:00 [facility] CBC (HEMOGRAM ONLY) 2022-03-[address] [facility] 22:06:00 [facility] HC CAROTID DOPPLER GERALDO 2022-03-03 Lele Hannah [facility] 21:30:00 [facility] POCT-GLUCOSE METER 2022-03-03 Saldivar, Moshe B. [facility] 19:57:00 [facility] POCT-GLUCOSE METER 2022-03-03 Saldivar, Moshe B. [facility] 18:22:00 [facility] TRANSFUSE CRYOPRECIPITATE 2022-03-[address] [facility] 16:15:00 [facility] ECG 12-LEAD 2022-03-03 Unknown, Hl7 Doctor [facility] 15:06:51 [facility] ECG 12-LEAD 2022-03-03 Unknown, Hl7 Doctor [facility] 15:06:51 [facility] ECG 12-LEAD 2022-03-03 Unknown, Hl7 Doctor [facility] 15:06:51 [facility] ECHO W CONTRAST & DOPPLER 2022-03-[address] [facility] 13:59:05 [facility] ABORH, MANUAL 2022-03-[address] [facility] 13:54:00 [facility] BLOOD GAS, ARTERIAL 2022-03-[address] [facility] 13:44:00 [facility] POCT-GLUCOSE METER 2022-03-03 Saldivar, Moshe Pérez [facility] 13:39:00 [facility] CALCIUM, IONIZED 2022-03-[address] [facility] 13:34:00 [facility] TYPE AND SCREEN, AUTOMATED 2022-03-[address] [facility] 13:32:00 [facility] CBC W/PLT COUNT & AUTO 2022-03-[address] [facility] DIFFERENTIAL 13:22:00 [facility] URIC ACID 2022-03-03 Jamayral, Lele Saldaña [facility] 13:22:00 [facility] Center COMPREHENSIVE METABOLIC 2022-03-03 Jamayral, Lele Saldaña [facility] PANEL 13:22:00 [facility] BILIRUBIN, DIRECT 2022-03-03 Jamayral, Lele Saldaña [facility] 13:22:00 [facility] GAMMA GLUTAMYL TRANSFERASE 2022-03-03 Jamayral, Lele Bowen [facility] (GGT) 13:22:00 [facility] MAGNESIUM 2022-03-03 Jamayral, Lele Saldaña [facility] 13:22:00 [facility] PHOSPHORUS 2022-03-03 Jamayral, Lele Saldaña [facility] 13:22:00 [facility] ZINC 2022-03-03 Jamayral, Lele Saldaña [facility] 13:22:00 [facility] ALPHA-1 ANTITRYPSIN MUTATION 2022-03-03 Darlynl, Lele Saldaña [facility] ANALYSIS 13:22:00 [facility] LIPID PANEL 2022-03-03 Darlynl, Lele Saldaña [facility] 13:22:00 [facility] CBC W/PLT COUNT & AUTO 2022-03-03 Shamshirsaz, Amir [facility] DIFFERENTIAL 13:22:00 [facility] VITAMIN D, 25-HYDROXY 2022-03-03 Darlynl, Lele Saldaña [facility] 13:21:00 [facility] RUBELLA ANTIBODY, IGG 2022-03-03 Darlynl, Lele Saldaña [facility] 13:21:00 [facility] VARICELLA ZOSTER ANTIBODY, 2022-03-03 Brielle, Lele Bowen [facility] IGG 13:21:00 [facility] T3 2022-03-03 Jamayral, Lele Saldaña [facility] 13:21:00 [facility] RPR 2022-03-03 Jamayral, Lele Saldaña [facility] 13:21:00 [facility] ANTI-NUCLEAR ANTIBODY (EMILIANO) 2022-03-03 Jamayral, Lele Saldaña [facility] 13:20:00 [facility] RUBEOLA ANTIBODY IGG 2022-03-03 Darlynl, Lele Saldaña [facility] 13:20:00 [facility] CRYPTOCOCCAL ANTIGEN 2022-03-03 Darlynl, Lele Saldaña [facility] 13:20:00 [facility] IRON, TIBC, % SAT. (WITHOUT 2022-03-03 Brielle, Lele Saldaña [facility] FERRITIN) 13:20:00 [facility] FERRITIN 2022-03-03 Brielle, Lele Saldaña [facility] 13:20:00 [facility] TRANSFERRIN 2022-03-03 Brielle, Lele Saldaña [facility] 13:20:00 [facility] ALPHA FETOPROTEIN (AFP), 2022-03-03 Brielle, Lele Saldaña [facility] TUMOR MARKER 13:20:00 [facility] CARCINOEMBRYONIC ANTIGEN 2022-03-03 Brielle, Lele Saldaña [facility] (CEA) 13:20:00 [facility] TSH 2022-03-03 Brielle, Lele Saldaña [facility] 13:20:00 [facility] T4 2022-03-03 Brielle, Lele Saldaña [facility] 13:20:00 [facility] HEPATITIS B SURFACE ANTIBODY 2022-03-03 Brielle, Lele Saldaña [facility] 13:20:00 [facility] HEPATITIS B CORE ANTIBODY, 2022-03-03 Brielle, Lele Saldaña [facility] TOTAL 13:20:00 [facility] CYTOMEGALOVIRUS ANTIBODY, 2022-03-03 Brielle, [facility] IGG 13:20:00 [facility] EBV ANTIBODY, IGM 2022-03-03 Brielle, [facility] 13:20:00 [facility] HC LAB HIV-1 AG W/HIV-1&2 AB 2022-03-03 Brielle, Lele Saldaña [facility] 13:20:00 [facility] EMILIANO TITER AND PATTERN 2022-03-03 Brielle, Lele Saldaña [facility] 13:20:00 [facility] MUMPS ANTIBODY, IGG 2022-03-03 Brielle, Lele Salda[facility] 13:19:00 [facility] CERULOPLASMIN 2022-03-03 Brielle, Lele Saldaña [facility] 13:19:00 [facility] CARBOHYDRATE ANTIGEN 19-9 2022-03-03 Brielle, Lele Salda[facility] (CA 19-9) 13:19:00 [facility] ETHANOL 2022-03-03 Lele Hannah Piotr [facility] 13:19:00 [facility] ACTIN (SMOOTH MUSCLE) 2022-03-[address] [facility] ANTIBODY, IGG 13:18:00 [facility] MITOCHONDRIA M2 ANTIBODY 2022-03-03 Lele Hannah P[facility]r [facility] (IGG) 13:18:00 [facility] RNKIO-0-KIBSYOFCABJ\\, SERUM 2022-03-[address] [facility] 13:18:00 [facility] POCT-GLUCOSE METER 2022-03-[address] [facility] 13:11:00 [facility] AFB CULTURE + SMEAR 2022-03-03 Alexis Trevon [address]iddiqui [facility] (NON-SPUTUM) 12:40:00 [facility] BRONCHIAL CULTURE + GRAM 2022-03-[address] [facility] STAIN 12:40:00 [facility] FUNGUS CULTURE + SMEAR 2022-03-03 Alexis Trevon [facility]ioso [facility] 12:40:00 [facility] DRUG SCREEN, URINE, 2022-03-03 José Manuel Hannahalthea Saldaña [facility] TRANSPLANT 12:40:00 [facility] SPIN/CONCENTRATION CHARGE 2022-03-[address] [facility] 12:40:00 [facility] SCREEN, URINE 2022-03-03 Trevon Espinoza Chao [facility] 12:18:00 [facility] US ABDOMEN COMPLETE 2022-03-[address] [facility] 11:46:00 [facility] US DOPPLER 2022-03-03 Alexis Trevon Siddiqui [facility] 11:46:00 [facility] FIBRINOGEN 2022-03-03 Shamshirstn, Amir [facility] 10:45:00 [facility] PROTHROMBIN TIME/INR 2022-03-03 Shamshirsaz, Amir [facility] 10:45:00 [facility] APTT 2022-03-[address] [facility] 10:45:00 [facility] BLOOD GAS, VENOUS 2022-03-03 Shamshirsaz, Amir [facility] 07:55:00 [facility] THROMBOELASTOGRAPH (TEG) 2022-03-03 [facility]isha [facility]s [facility] 07:55:00 [facility] XR CHEST 1 VIEW PORTABLE / 2022-03-03 Jeramy Harley [facility] BEDSIDE 02:33:00 [facility] XR ABDOMEN / KUB 1 VIEW 2022-03-[address] [facility] 02:30:00 [facility] BLOOD CULTURE 2022-03-[address] [facility] 02:21:00 [facility] PROTHROMBIN TIME/INR 2022-03-[address] [facility] 02:21:00 [facility] APTT 2022-03-[address] [facility] 02:21:00 [facility] COMPREHENSIVE METABOLIC 2022-03-[address] [facility] PANEL 02:21:00 [facility] MAGNESIUM 2022-03-[address] [facility] 02:21:00 [facility] LACTIC ACID, VENOUS 2022-03-[address] [facility] 02:21:00 [facility] FIBRINOGEN 2022-03-[address] [facility] 02:21:00 [facility] CBC (HEMOGRAM ONLY) 2022-03-[address] [facility] 02:21:00 [facility] HEMOGLOBIN A1C 2022-03-[address] [facility] 02:21:00 [facility] BLOOD CULTURE 2022-03-[address] [facility] 02:20:00 [facility] HEPATITIS B SURFACE ANTIGEN 2022-02-[address] [facility] 19:11:00 [facility] HEPATITIS A ANTIBODY, IGM 2022-02-[address] [facility] 19:11:00 [facility] HEPATITIS B CORE ANTIBODY, 2022-02-[address] [facility] IGM 19:11:00 [facility] HEPATITIS C ANTIBODY 2022-02-[address] [facility] [facility] 19:11:00 [facility] EXTERNAL PROVIDER RECORDS 2022-02-25 Doctor Unassigned, [facility] [place] 05:01:00 [place] [facility] CONSULT CLINICAL CASE 2022-01-08 Annel Leon lt MANAGEMENT (RN/SW) 08:15:17 CONSULT CLINICAL CASE 2022-01-07 Heber Arana lt MANAGEMENT (RN/SW) 22:38:01 CBC/DIFF 2022-01-07 Sulema Woodard [facility] 20:26:00 BASIC METABOLIC PANEL 2022-01-07 Sulema Woodard [facility] 20:26:00 ALCOHOL, MEDICAL USE ONLY 2022-01-07 Sulema Woodard H [facility] 20:26:00 CK, TOTAL 2022-01-07 Sulema Woodard [facility] 20:26:00 CBC 2022-01-07 Sulema Woodard [facility] 20:26:00 12 LEAD EKG 2022-01-07 Heber Arana [facility] 16:30:01 CT ANGIOGRAM ABDOMEN/PELVIS 2020-11-20 [facility] 09:48:33 Medical Branch POCT TEST 2020-11-20 [facility] [place] 09:27:00 Medical Branch BILI UNCONJUGATED/BILI 2020-11-20 [facility] CONJUG 08:54:00 Medical Branch COMP. METABOLIC PANEL 2020-11-20 [facility] ([id number]) 08:54:00 Medical Branch CBC WITH DIFF 2020-11-20 [facility] xas 08:54:00 Medical Branch PROTHROMBIN TIME / INR 2020-11-20 [facility] 08:54:00 Medical Branch POCT GLUCOSE (AUTOMATED) 2020-11-20 Doctor Unassigned, [facility] 08:36:00 [place] [facility] Plan of Care Planned Activity Planned Date Details Comments Source Future Scheduled 2022-04-16 IMM Influenza [facility] Test 00:00:00 Seasonal (>/= 19 yrs) [code = IMM Influenza Seasonal (>/= 19 yrs)] Future Scheduled 2022-04-16 IMM Influenza [facility] 00:00:00 Seasonal (>/= 19 yrs) [code = IMM Influenza Seasonal (>/= 19 yrs)] Future Scheduled 2022-04-16 IMM Influenza [facility] 00:00:00 Seasonal (>/= 19 yrs) [code = IMM Influenza Seasonal (>/= 19 yrs)] Future Scheduled 2022-04-16 IMM Influenza [facility] Test 00:00:00 Seasonal (>/= 19 yrs) [code = IMM Influenza Seasonal (>/= 19 yrs)] Future Scheduled 2022-03-[address] [facility] Test 00:00:00 (#1) [code = [facility] INFLUENZA VACCINE (#1)] Future Scheduled 2022-03-[address] [facility] Test 00:00:00 (#1) [code = [facility] INFLUENZA VACCINE (#1)] Future Scheduled 2022-03-[address] [facility] Test 00:00:00 (#1) [code = [facility] INFLUENZA VACCINE (#1)] Future Scheduled 2022-03-[address] [facility] Test 00:00:00 (#1) [code = [facility] INFLUENZA VACCINE (#1)] Future Scheduled 2022-03-[address] [facility] Test 00:00:00 (#1) [code = [facility] INFLUENZA VACCINE (#1)] Future Scheduled 2021-11-02 COVID-19 VACCINE ([address] [facility] Test 00:00:00 - Booster for [facility] Pfizer series) [code = COVID-19 VACCINE (3 - Booster for Pfizer series)] Future Scheduled 2021-11-02 COVID-19 VACCINE ([address] [facility] Test 00:00:00 - Booster for [facility] Pfizer series) [code = COVID-19 VACCINE (3 - Booster for Pfizer series)] Future Scheduled 2021-11-02 COVID-19 VACCINE ([address] [facility] Test 00:00:00 - Booster for [facility] Pfizer series) [code = COVID-19 VACCINE (3 - Booster for Pfizer series)] Future Scheduled 2021-11-02 COVID-19 VACCINE ([address] [facility] Test 00:00:00 - Booster for [facility] Pfizer series) [code = COVID-19 VACCINE (3 - Booster for Pfizer series)] Future Scheduled 2021-11-02 COVID-19 VACCINE ([address] [facility] Test 00:00:00 - Booster for [facility] Pfizer series) [code = COVID-19 VACCINE [...] Univer sity of Test 00:00:00 (Season Ended) [place] [facility] [code = INFLUENZA Branch VACCINE (Season Ended)] Future Scheduled 2016 [facility] for [facility] 00:00:00 malignant neoplasm of cervix (procedure) [code = 614991413] Future Scheduled 2016 [facility] 00:00:00 malignant neoplasm of cervix (procedure) [code = 496469070] Future Scheduled 2016 [facility] 00:00:00 malignant neoplasm of cervix (procedure) [code = 378390182] Future Scheduled 2016 [facility] 00:00:00 malignant neoplasm of cervix (procedure) [code = 147770481] Future Scheduled 2016 [facility] Test 00:00:00 malignant neoplasm of cervix (procedure) [code = 529441061] Future Scheduled 2016 [facility] 00:00:00 malignant neoplasm of cervix (procedure) [code = 278605747] Future Scheduled 2016 [facility] Test 00:00:00 malignant neoplasm of cervix (procedure) [code = 974482755] Future Scheduled 2016 [facility] Test 00:00:00 malignant neoplasm of cervix (procedure) [code = 452352787] Future Scheduled [address] [facility] Test 00:00:00 malignant neoplasm Medical C enter of cervix (procedure) [code = 610074720] Future Scheduled [address] [facility] Test 00:00:00 malignant neoplasm Medical C enter of cervix (procedure) [code = 831876219] Future Scheduled [address] [facility] Test 00:00:00 malignant neoplasm Medical C enter of cervix (procedure) [code = 294482092] Future Scheduled [address] [facility] Test 00:00:00 malignant neoplasm Medical C enter of cervix (procedure) [code = 752546371] Future Scheduled [address] [facility] Test 00:00:00 malignant neoplasm Medical C enter of cervix (procedure) [code = 648746223] Future Scheduled 2007 Screening for [facility] Test 00:00:00 malignant neoplasm [place] [facility] of cervix Branch (procedure) [code = 015676650] Future Scheduled 2005 DTAP/TDAP/TD [facility] of Test 00:00:00 Vaccines (1 - Tdap) [facility] [code = Branch DTaP,Tdap,and Td Vaccines (1 - Tdap)] Future Scheduled 2004 Hepatitis C University [facility] Test 00:00:00 screening [place] [facility] (procedure) [code = Branch 915325476] Future Scheduled 2002 SARS-CoV-2 University [facility] Test 00:00:00 (COVID-19) Vaccine [place] [facility] (1) [code = Branch SARS-CoV-2 (COVID-19) Vaccine (1)] Future Scheduled 1998 Depression University [facility] Test 00:00:00 screening [place] [facility] (procedure) [code = Branch 284777080] Future Scheduled [address] [...] Fluoride Varnish] Future Scheduled 1986 Fluoride Varnish [facility] Test 00:00:00 [code = Fluoride Varnish] Future Scheduled 1986 Fluoride Varnish [facility] Test 00:00:00 [code = Fluoride Varnish] Future Scheduled 1986 Fluoride Varnish [facility] Test 00:00:00 [code = Fluoride Varnish] Future Scheduled CT ANGIOGRAM [facility] ABDOMEN/PELVIS [facility] [code = 16607] Branch Future Scheduled IRON PANEL [code = Unive rsity of Test 2365] [place] [facility] Future Scheduled IRON PANEL [code = ONCE for 1 Unive rsity of Test 2365] Occurrences [facility] starting Branch 11/20/2020 until 11/20/2020 Encounters Start End Encounter Admission Attending Care Care Encounter Source Date/Time Date/Time Type Type Clinicians Facility Department ID 2022-04-01 Outpatient [facility] [id number] [place] 09:58:42 [id number] [facility] 2021-11-19 Outpatient [facility] [id number] [place] 09:02:08 [id number] [facility] 2022-04-04 2022-04-05 Emergency EULOGIO AUSTIN ERT [id number] Univers 21:16:00 00:42:00 LATISHA vieira of [facility] 2022-04-04 2022-04-05 Megan Ramirez [facility] [id number] Univers 21:16:00 00:42:00 Latisha BILLY 350.1.13.10 i ty of [place] [id number] [place] [address] Branch 2022-03-28 2022-03-28 Emergency X [facility] ERT [id number] Univers 11:42:00 13:51:00 KORI ity [facility] 2022-03-28 2022-03-28 Emergency [facility] [id number] [id number] Univers 11:42:00 13:51:00 Kori BILLY 350.1.13.10 i ty [place] [id number] [address] 2022-03-28 2022-03-28 Transition LUKAS [place] 1.2.840.114 [id number] Univers 00:00:00 00:00:00 of Care Nazanin [place] 350.1.13.10 ity of [place] 4.2.7.2.686 [facility] [id number] [facility] 403 Branch 2022-03-20 2022-03-25 Inpatient [facility] [id number] Univers 18:38:00 18:33:00 ESME itbruno [facility] 2022-03-20 2022-03-25 Hospital Hannah Santos 1.2.840. 114 [id number] Univers 18:38:00 18:33:00 Encounter Yaimle Vivar 350. 1.13.10 ity of [facility] 4.2.7.2.686 Esme Sidhu [id number] Medical Deepali Mcgee 2022-03-20 2022-03-20 Telephone GABRIEL Dale [id number] [id number] Univers 00:00:00 00:00:00 Oleg CHESTER 350.1.13.10 ity of [facility] 4.2.7.2.686 Joesph as [id number] [place] [address] Branch 2022-03-17 2022-03-17 Transition LUKAS [place] 1.2.840.114 [id number] Univers 00:00:00 00:00:00 of Care Nazanin DE [place] 350.1.13.10 [place] [id number] [facility] 403 Branch 2022-03-12 2022-03-16 Inpatient X DAWIT, [facility] [id number] Univers 21:42:00 15:43:00 [facility] 2022-03-12 2022-03-16 [facility] Mary Robles Daniela [facility] 1.2.840 .114 [id number] Univers 21:42:00 15:43:00 Encounter Brodie Haneysean WENCESLAO 350.1.13.10 ity of [place] [id number] [facility] 081 Branch 2022-03-12 2022-03-12 Outpatient [facility] [id number] [facility] 00:00:00 23:59:00 Latisha Medicin e 2022-03-11 2022-03-12 Emergency ER SUMNER, [facility] Emergency [id number] SLE 19:46:00 19:00:00 TANISHA 2022-03-11 2022-03-12 Emergency Quiroz, [facility] [id number] 19:46:00 19:00:00 [facility] 2022-03-11 2022-03-12 Emergency ER Quiroz, [facility] [id number] 19:46:00 19:00:00 [facility] 2022-03-11 2022-03-[address] [facility] [id number] Univers 16:00:00 16:00:00 OLEG [facility] 2022-03-02 2022-03-11 Inpatient UR CIVUNARACELINTA [facility] Gastro [id number] SLE 23:18:00 15:30:00 , YEMI 2022-03-02 2022-03-11 [facility] Phu Remy In [facility] [id number] 23:18:00 15:30:00 Encounter Moshe Saldivar, [facility], [facility], Lior Brooksa, Yemi Shields, Amir Abdollah 2022-03-02 2022-03-11 [facility] ElidaPhu Shel[place] In [facility] [id number] 23:18:00 15:30:00 Encounter Moshe Saldivar, [facility], [facility], Lior Brooksa, Yemi Alyson, Amir Abdolla 2022-03-11 2022-03-11 Travel [facility] [id number] [facility] 00:00[facility]00 00:00:00 [facility] 2022-03-11 2022-03-11 Travel [facility] [id number] [facility] 00:00:00 00:00:00 [facility] 2022-03-10 2022-03-10 [facility] [id number] 00:00:00 00:00:00 [facility] 2022-03-10 2022-03-10 [facility] [id number] 00:00:00 00:00:00 [facility] 2022-03-10 2022-03-10 [facility] [id number] 00:00:00 00:00:00 [facility] 2022-03-10 2022-03-10 [facility] [id number] 00:00:00 00:00:00 [facility] 2022-03-09 2022-03-09 [facility] [id number] 00:00:00 00:00:00 [facility] 2022-03-09 2022-03-09 Birgitgallo Cochran [facility] [id number] 00:00:00 00:00:00 [facility] 2022-03-08 2022-03-08 Ashish Nieto [facility] [id number] 00:00:[facility] 00:00:00 [facility] 2022-03-08 2022-03-08 Documentat Emilia [facility] [id number] 00:00:00 00:00:00 [facility] 2022-03-07 2022-03-07 Ashish Cochran [facility] [id number] 00:00:00 00:00:00 [facility] 2022-03-07 2022-03-07 Ashish Cochran [facility] [id number] 00:00:00 00:00:00 [facility] 2022-03-04 2022-03-04 Ashish Cochran [facility] [id number] 00:00:00 00:00:00 [facility] 2022-03-04 2022-03-04 Ashish Crystal [facility] [id number] 00:00:00 00:00:00 [facility] 2022-03-04 2022-03-04 Ashish Crystal [facility] [id number] 00:00:00 00:00:00 [facility] 2022-03-04 2022-03-04 Ashish Crystal [facility] [id number] 00:00:00 00:00:00 [facility] 2022-03-04 2022-03-04 Ashish Cochran [facility] [id number] 00:00:00 00:00:00 [facility] 2022-03-04 2022-03-04 Ashish Crystal [facility] [id number] 00:00:00 00:00:00 [facility] 2022-03-03 2022-03-03 Outpatient [facility] [id number] [facility] 00:00:00 23:59:00 Patti 2022-03-03 2022-03-03 Orders [facility] [id number] 00:00:00 00:00:00 [facility] 2022-03-03 2022-03-03 [facility] [id number] 00:00:00 00:00:00 [facility] 2022-03-03 2022-03-03 Telephone [facility] [id number] 00:00:00 00:00:00 [facility] 2022-03-03 2022-03-03 Abstract Gabriel Joaquin [facility] [id number] 00:00:00 00:00:00 [facility] 2022-03-03 2022-03-03 Orders [facility] [id number] 00:00:00 00:00:00 [facility] 2022-03-03 2022-03-03 Document Bridgett [facility] [id number] 00:00:00 00:00:00 [facility] 2022-03-03 2022-03-03 Telephone Prabhakar [facility] [id number] 00:00:00 00:00:00 [facility] 2022-03-03 2022-03-03 Abstract Gabriel Joaquin [facility] [id number] 00:00:00 00:00:00 [facility] 2022-03-02 2022-03-02 Telephone Janes Brody [facility] [id number] 00:00:00 00:00:00 [facility] 2022-03-02 2022-03-02 Telephone Janes Brody [facility] [id number] 00:00:00 00:00:00 [facility] 2022-02-28 2022-02-28 Lab [facility] [id number] 00:00:00 00:00:00 [facility] 2022-02-28 2022-02-28 Lab [facility] [id number] 00:00[facility]00 00[facility]00[facility]00 [facility] 2022-02-25 2022-02-25 Orders Doctor GABRIEL 1.2.840.114 [id number] Univers 00:00:00 00:00:00 Only Unassigned, HENRIK 350.1.13.10 [facility] 4.2.7.2.686 Joesph as [id number] [address] 2022-02-15 2022-02-15 Letter [facility] 1.2.840.114 [id number] Univers 00:00:00 00:00:00 (Out) [facility] 350.1.13.10 ity of [place] 4.2.7.2.686 Joesph as TOYA?BLEA [id number] [address] MEDICAL OFFICE [facility] 2022-02-15 2022-02-15 Telephone [facility] [id number] [id number] Univers 00:00:00 00:00:00 [facility] 350.1.13.10 [facility] 4.2.7.2.686 Joesph as TOYA?BLEA [id number] [address] MEDICAL OFFICE [facility] 2022-02-08 2022-02-08 Office [facility] 1.2.840.114 [id number] Univers 15:30:00 16:30:39 Visit [facility] 350.1.13.10 ity of [facility] 4.2.7.2.686 Joesph as TOYA?BLEA [id number] [address] MEDICAL OFFICE [facility] 2022-01-21 2022-01-21 Emergency [facility] [id number] [facility] 20:17:00 20:17:00 54 2022-01-21 2022-01-21 Emergency Emergency Carlitos Hernandez [facility] [id number] [facility] 20:17:00 20:17:00 55 2022-01-07 2022-01-08 Emergency Heber Arana [facility] [id number] [facility]orne 19:58:00 10:30:00 [facility] 2022-01-07 2022-01-08 Emergency Heber Arana [facility] [id number] [facility]orne 19:58:00 10:30:00 [facility] 2021-12-29 2022-01-05 Inpatient EM Aleida, HCABM INTE.02 [id number] [facility] 16:01:00 16:58:00 Farhad [id number] [facility] 2021-12-29 2022-01-05 Inpatient EM Aleida HCABM INTE.02 [id number] [facility] 16:01:00 16:58:00 Farhad 61 [facility] 2022-01-03 2022-01-03 Outpatient Physician, HCAMN MLAB [id number] [facility] 19:26:00 19:26:00 No 45 [facility] 2021-12-30 2021-12-30 Outpatient WILLIAM DesaiFitzpatrick, LESLIECL LABO [id number] [facility] 09:23:00 09:23:00 [facility] 2021-12-10 2021-12-10 Telephone CARLOS Vega [facility] [id number] [place] 00:00:00 00:00:00 [facility] [id number] H [facility] [id number] MEDICAL [id number] [address] 2 3 2021-11-13 2021-12-08 Inpatient E FELIX ESPARZA MED [id number] [facility] 12:28:00 19:36:00 [facility] 2021-04-12 2021-04-12 Emergency X ELGIN, [facility] ERT [id number] [facility] 21:10:00 21:25:00 [facility] 2020-09-13 2020-09-15 Inpatient [facility] [id number] [facility] 18:41:14 00:52:00 r [place] 01 l [facility] 2020-09-13 2020-09-15 [facility] [id number] [facility] 18:41:14 00:52:00 r [place] [facility] 2020-09-13 2020-09-14 Inpatient E YURY MHBL MED [id number] MHBL 15:07:00 18:52:00 , 2020-09-13 2020-09-14 Outpatient Dhamoaran MHPL MHPL [id number] 12:41:14 18:52:00 , [place] 2020-09-13 2020-09-13 Outpatient Dhamoana MHPL MHPL [id number] 12:41:14 12:41:14 , [place] 2020-01-27 2020-01-27 [facility] [id number] Memoria 21:52:37 23:57:00 r [place] 00 [facility] 2020-01-27 2020-01-27 [facility] [id number] Memoria 21:52:37 23:57:00 r [place] 00 [facility] 2020-01-27 2020-01-27 Outpatient Aznaurova-A MHPL MHPL [id number] 16:52:37 18:57:00 [place], 00 Carolyn Results Test Description Test Time Test Comments Results Result Comments Source N-TERMINAL PRO-BNP 2022-04-05 04:05:15 Test Item Value Reference Range Interpretation Comme nts NT-proBNP (test code = 388 pg/mL See_Comment H [Aut omated message] The 9282345728) system which ge nerated this result tra nsmitted reference range : <=125. The reference r yvonne was not used to int erpret this result as modesto l/abnormal. SONIA (test code = SONIA) Biotin has been reported to cause a negative bias, interpret results relative to patient's use of biotin. Lab Interpretation (test Abnormal code = 92518-4) [facility]. METABOLIC PANEL (11895)2022-04-05 03:58:45 Test Item Value Reference Range Interpretation Comments NA (test code = 128 mmol/L 135-145 L 5778300075) K (test code = 2.9 mmol/L 3.5-5 LL 3798812697) CL (test code = 92 mmol/L 98-108 L 8065766926) CO2 TOTAL (test code = 27 mmol/L 23-31 5881270243) AGAP (test code = 2-16 0614587960) BUN (test code = 5 mg/dL 7-23 L 0263817931) GLUCOSE (test code = 126 mg/dL 70-110 H 4423542689) CREATININE (test code = 0.47 mg/dL 0.5-1.04 L 8619421927) TOTAL BILI (test code = 3.1 mg/dL 0.1-1.1 H 5128318472) CALCIUM (test code = 8.2 mg/dL 8.6-10.6 L 5526985116) T PROTEIN (test code = 6.2 g/dL 6.3-8.2 L 7218739351) ALBUMIN (test code = 3.2 g/dL 3.5-5 L 4077359986) ALK PHOS (test code = 155 U/L 34-122 H 2320570996) ALTv (test code = 26 U/L 5-35 1742-6) AST(SGOT) (test code = 84 U/L 13-40 H 1641154855) eGFR (test code = mL/min/1.73m2 9985410125) SONIA (test code = SONIA) Association of [...] tests). Lab Interpretation Abnormal (test code = 91384-7) [facility] WITH [id number] 03:44:21 Test Item Value Reference Range Interpretation [...] (test code = 59.7 fL 39-49.9 H 96778-6) RDW-CV (test code = 16.7 % 12-15.5 H 788-0) PLT (test code = See_Comment L [Automated 777-3) message] The sy stem which generated this result transmitted reference range : 166 - 358 10*3/ ?L. The reference r yvonne was not used to interpret this result as normal/abnormal . MPV (test code = 9.6 fL 9.5-12.9 76368-6) IPF % (test code = 2.5 % 1.3-7.7 Platelet count 1398655852) measured by fluorescence method. NRBC/100 WBC (test See_Comment [Automat ed code = 2575546554) message] The system which generated this result transmitted reference range : 0.0 - 10.0 /100 WBCs. The refer ence range was not u sed to interpret th is result as normal/abnormal . NRBC x10^3 (test code See_Comment [Auto mated = 4557281413) message] The s ystem which generated this result transmitted reference range : 10*3/?L. The reference range was not used to interpret this result as normal/abnormal . GRAN MAT (NEUT) % 70.7 % (test code = 770-8) IMM GRAN % (test code 0.40 % = 2301334625) LYMPH % (test code = 19.0 % 736-9) MONO % (test code = 8.9 % 5905-5) EOS % (test code = 0.1 % 713-8) BASO % (test code = 0.9 % 706-2) GRAN MAT x10^3(ANC) 4.91 10*3/uL 1.88-7.09 (test code = 5992781641) IMM GRAN x10^3 (test 0.03 10*3/uL 0-0.06 code = 2650696010) LYMPH x10^3 (test code 1.32 10*3/uL 1.32-3.29 = 731-0) MONO x10^3 (test code 0.62 10*3/uL 0.33-0.92 = 742-7) EOS x10^3 (test code = 0.03-0.39 L 711-2) BASO x10^3 (test code 0.06 10*3/uL 0.01-0.07 = 704-7) Lab Interpretation Abnormal (test code = 86357-3) [facility] + [id number] 01:03:40 Test Item Value Reference Range Interpretation Comments CULTURE (BEAKER) (test No fungus isolated in code = 1095) 28 days FUNGUS SMEAR (BEAKER) No fungi seen (test code = 1406) VITAMIN K1, [id number] 21:12:58 Test Item Value Reference Range Interpretation [...] intended for cl inical purposes.Perfor med By: SPARQCode[address] [place] [id number] Director: Eunice Covington MD, PhD Lab Interpretation Abnormal (test code = 27867-2) [facility]vineALPHA-1-ANTITRYPSIN [id number] 20:35:00 Test Item Value Reference Range Interpretation Comments A1A (test code = 155 mg/dL 90-200 To convert to umol/L, 1825-9) multiply mg/dL by 0.185 A1A PHENO (test M1M1 The patient appears to code = 61437-4) have a modesto l phenotype. All M alleles ( including subtypes M1, M2 , and M3) produce normal serum concentrations of einjo-0-sbstljz e inhibitor and are not ass ociated with clinical d isease. Caution in inte rpretation is advised if t he patient has been transf used within the previous 21 days.Performed By: SPARQCode[address] [place] [id number] Director: Alexis zheng MD, PhD [facility]. Sendout- Hemoglobin A1c #[id number] 2022-03-25 16:18:54 Test Item Value Reference Range Interpretation Comments Miscellaneous Test (test See scanned report code = 7548123294) Performing Lab (test code AR = 8245501136) [facility]vineVITAMIN E, SERUM OR [id number] 15:59:09 Test Item Value Reference Range Interpretation Comments ALPHA BATSHEVA (test code = 5 mg/L 5.5-18.0 L This test was 1823-4) developed and i ts performance characteristics determined by [facility]. I t has not been cleare d or approved by the [place] Food and Drug Administration. This test was perfor med in a CLIA certified laboratory and is intended for cl inical purposes. GAMMA BATSHEVA (test code = 1.2 mg/L 0.0-6.0 Perfo rmed By: SHANICE 23082-2) [address] [id number] Director: Eunice Covington MD, PhD Lab Interpretation Abnormal (test code = 72665-4) [facility]vineVITAM[facility] A, SERUM OR [id number] 15:59:08 Test Item Value Reference Range Interpretation Comments RET A (test code = <0.06 0.30-1.20 L 2923-1) RET PALM (test code = <0.02 0.00-0.10 69702-4) EDVIN INTER (test code See Note Retin ol greater than = 42574-2) 0.3 mg/L is typ ically associated with adequate liver stores in adults, and is within normal l imits for children. R etinol less than 0.10 mg/L may indicate deplet ed liver stores and elvia re deficiency. Thi s test was developed a nd its performance characteristics determined by [facility]. I t has not been cleare d or approved by the [place] Food and Drug Administration. This test was perfor med in a CLIA certified laboratory and is intended for cl inical purposes.Perfor med By: SHANICE [address] [place], [place] [address]Mltpxgmipg Director: Eunice Covington MD, PhD Lab Interpretation Abnormal (test code = 92283-3) [facility]vineQUANTIFERON-TB [id number] 19:26:31 Test Item Value Reference Range Interpretation Comments Nil (test code = IU/mL 48670-7) TB1 minus Nil (test IU/mL code = 73872-7) TB2 minus Nil (test IU/mL code = 8305164979) Mitogen minus Nil IU/mL (test code = 23968-7) QFT Gold Plus Negative Negative Result (test code = 83939-4) SONIA (test code = The QuantiFERON? TB [...] advised. For further information, refer to http://www.cdc.gov/mmwr/pd f/rr/at7943.pdf and https://doi.org/10.1093/ci d/axl718. [facility]vineANTI-SSA(RO)2022-03-24 17:49:31 Test Item Value Reference Range Interpretation Comments ANTI-SSA(RO) (test code = Negative Negative 7705256927) SONIA (test code = SONIA) Positive - Antibody detected.Negative - No antibody detected. Lab Interpretation (test Normal code = 55990-2) [facility]vineANTI-DAMON(SM)2022-03-24 17:49:16 Test Item Value Reference Range Interpretation Comments Anti-Damon (test code = Negative Negative 0331412614) SONIA (test code = SONIA) Positive - Antibody detected.Negative - No antibody detected. Lab Interpretation (test Normal code = 92494-1) [facility]vineANTI-SSB(LA)2022-03-24 17:49:16 Test Item Value Reference Range Interpretation Comments Anti-SSB(LA) (test code = Negative Negative 9572463556) SONIA (test code = SONIA) Positive - Antibody detected.Negative - No antibody detected. Lab Interpretation (test Normal code = 71449-7) [facility] GrapevineSMOOTH MUSCLE AB,IGG [id number] 11:32:30 Test Item Value Reference Range Interpretation Comments F-ACTIN (SMOOTH See_Comment If F-Actin (Smooth Muscle) MUSCLE) AB, Antibody, IgG i s negative, IGG(BEAKER) (test the Smooth Muscle Antibody code = 65287-3) titer by IFA is not performed.REFER ENCE [...] for A IH is strong.Performe d By: SPARQCode[address] [place] [id number] Director: Alexis zheng MD, PhD [Automated mess age] The system which ge nerated this result transmit afshin reference range : 0 - 19 Units. The refe rence range was not used to interpret this result as normal/abnormal . [facility] GrapevineMITOCHONDRIAL M2 AB, [id number] 11:32:29 Test Item Value Reference Range Interpretation Comments AMA (test code = See_Comment REFERENCE I NTERVAL: 26452-6) Mitochondrial ( M2) Antibody, IgG ? ?20.0 [...] does not rule out PBC.Performed B y: [address] [id number] Director: Alexis zheng MD, PhD [Automated mess age] The system which [employer] nerated this result transmit afshin reference range: 0.0 - 24 .9 Units. The reference range was not used to interpret th is result as normal/abnormal . [facility]vineANTI-NUCLEAR ANTIBODY-PATHOLOGIST [id number] 23:23:42ANA - Pathologist InterpretationANA HEp-2 IIFA Pathologist [...] MD ?03/23/2022 ?6:23 PM 03/23/2022 6:23 PM [facility] ANTI-NUCLEAR ANTIBODY [id number] 23:23:11 Test Item Value Reference Range Interpretation Comments EMILIANO Titer by IFA 1:320 (test code = 2870965395) EMILIANO Pattern (test Speckled code = 7088720023) SONIA (test code = SONIA) Anti-nuclear antibodies [...] specimen will be held for 7 days. [facility]vineBASI METABOLIC PANEL (NA, K, CL, CO2, GLUCOSE, BUN, CREATININE, CA)2022-03-22 21:51:21 Test Item Value Reference Range Interpretation Comments NA (test code = 126 mmol/L 135-145 L 1212732035) K (test code = 3.4 mmol/L 3.5-5 L Slight 1540166453) hemolysis CL (test code = 97 mmol/L 98-108 L 4312840559) CO2 TOTAL (test code 26 mmol/L 23-31 = 5249126861) AGAP (test code = 2-16 9963157901) BUN (test code = 5 mg/dL 7-23 L Slight 3796051291) hemolysis GLUCOSE (test code = 145 mg/dL 70-110 H 2153483102) CREATININE (test code 0.28 mg/dL 0.5-1.04 L = 3851808925) CALCIUM (test code = 7.4 mg/dL 8.6-10.6 L 3686593676) eGFR (test code = mL/min/1.73m2 9767081340) SONIA (test code = SONIA) Association of [...] tests). Lab Interpretation Abnormal (test code = 61782-8) [facility]vineANTI-NUCLEAR ANTIBODY [id number] 20:35:32 Test Item Value Reference Range Interpretation Comments EMILIANO (test code = Positive Negative A 7001083368) SONIA (test code = SONIA) Negative: ?No Anti-Nuclear Antibodies detected by IFA. Positive: ?EMILIANO IFA screen performed with a 1:80 dilution in adults and a 1:40 dilution in pediatrics. ?A titer is performed and reported separately when the EMILIANO is "Positive" or when "Cytoplasmic staining is observed." Lab Interpretation (test Abnormal code = 89999-4) [facility]vineVITAMIN D, [id number] 17:04:22 Test Item Value Reference Range Interpretation Comments VIT D 25OH (test code = 25-80 L 85684-7) SONIA (test code = SONIA) Deficiency: <20 ng/mLInsufficiency: 20-24 ng/mLOptimal: 25-80 ng/mL Lab Interpretation (test Abnormal code = 52851-2) [facility]vineBA[facility] METABOLIC [facility]EL (NA, K, CL, CO2, GLUCOSE, BUN, CREATININE, CA)2022-03-22 15:40:28 Test Item Value Reference Range Interpretation Comments NA (test code = 129 mmol/L 135-145 L 5799661219) K (test code = 3.5 mmol/L 3.5-5 8676379724) CL (test code = 100 mmol/L 98-108 4085755741) CO2 TOTAL (test code = 30 mmol/L 23-31 5825009127) AGAP (test code = 2-16 L 0949679496) BUN (test code = 5 mg/dL 7-23 L 5413574004) GLUCOSE (test code = 120 mg/dL 70-110 H 9426869496) CREATININE (test code = 0.33 mg/dL 0.5-1.04 L 6941029416) CALCIUM (test code = 7.6 mg/dL 8.6-10.6 L 9660746488) eGFR (test code = mL/min/1.73m2 0422573174) SONIA (test code = SONIA) Association of [...] tests). Lab Interpretation Abnormal (test code = 78724-1) [facility] GrapevineIMMUNOGLOBULIN G A M [id number] 14:56:28 Test Item Value Reference Range Interpretation Comments IgA (test code = 8566926719) 736 mg/dL 70-312 H IgG (test code = 5249000858) 1140 mg/dL 636-1600 IgM (test code = 3608942551) 321 mg/dL 56-352 Lab Interpretation (test code = Abnormal 12729-9) [facility] GrapevineCERULOPLASMIN2022-09-06 14:55:43 Test Item Value Reference Range Interpretation Comments CERULO (test code = 4115062331) 20 mg/dL 25-63 L Lab Interpretation (test code = Abnormal 18559-4) [facility] GrapevineMEASLES [id number] 14:22:17 Test Item Value Reference Range Interpretation Comments MEASLES IgG (test Positive Negative code = 5669499892) SONIA (test code = SONIA) Positive - Indicates that the patient was exposed to Measles through infection or vaccination.Negative - Indicates patient could be susceptible to Measles infection.Equivocal - A second sample should be sent. [facility] GrapevineVZV ANTIBODY [id number] 14:22:17 Test Item Value Reference Range Interpretation Comments VZV IgG antibody Positive Negative (test code = 80985-3) SONIA (test code = SONIA) Positive - Indicates the patient was exposed to VZV through infection or vaccination.Negative - Indicates the patient could be susceptible to VZV infection.Equivocal - A second specimen should be sent for testing. [facility] GrapevineRUBELLA SCREEN [id number] 14:22:16 Test Item Value Reference Range Interpretation Comments Rubella screen IgG Equivocal Negative (test code = 3979659710) SONIA (test code = SONIA) Positive - Indicates the patient was exposed to Rubella through infection or vaccination.Negative - Indicates the patient could be susceptible to Rubella infection.Equivocal - A second specimen should be sent. [facility] GrapevineGALV ONLY - SYPHILIS [id number] 14:21:36 Test Item Value Reference Range Interpretation Comments Syphilis IgG/IgM (test Non-reactive Non-reactive code = 46150-0) SONIA (test code = SONIA) Non-reactive - No serologic evidence of T. pallidum infection. Cannot exclude incubating or early syphilis. Submit a second specimen in 2-4 weeks if syphilis is clinically suspected. Equivocal - Further testing to follow. Reactive - Further testing to follow. Lab Interpretation (test Normal code = 09352-1) [facility] GrapevineHSV 1 AND 2 GLYCOPROTEIN G [id number] 14:20:55 Test Item Value Reference Range Interpretation Comments HSV I IgG (test code Positive Negative = 5820509879) HSV II IgG (test code Negative Negative = 3355794686) SONIA (test code = SONIA) Positive - IgG antibody to HSV 1 and/or HSV 2 detected.Negative - No HSV 1 and/or HSV 2 antibody detected.Equivocal - A second sample should be sent. [facility] GrapevineTOXOPLASMA IGG [id number] 14:20:39 Test Item Value Reference Range Interpretation Comments TOXO IGG (test code Negative = 0684212404) SONIA (test code = Positive - Indicates SONIA) current or past T. gondii infection.Negative - No serologic evidence of T. gondii infection. Cannot exclude acute T. gondii infection. Equivocal - A second sample should be sent. [facility] GrapevineCYTOMEGALOVIRUS ANTIBODY [id number] 14:20:39 Test Item Value Reference Range Interpretation Comments CMV IGG (test code = Positive Negative 6055226464) SONIA (test code = Positive - Indicates SONIA) current or past CMV infection.Negative - Indicates no serologic evidence of CMV infection. Cannot exclude acute CMV infection.Equivocal - A second specimen should be sent for repeat testing. [facility] GrapevineEBV NUCLEAR ANTIGEN IGG [id number] 14:18:57 Test Item Value Reference Range Interpretation Comments EBV Nuclear Antigen IgG Positive Negative A (test code = 9911343035) SONIA (test code = SONIA) Positive - IgG to EBV nuclear antigen detected.Negative - No EBV nuclear antigen IgG detected.Equivocal - A second sample should be sent. Lab Interpretation (test Abnormal code = 37060-5) [facility] GrapevineCRYPTOCOCCAL ANTIGEN [id number] 12:56:33 Test Item Value Reference Range Interpretation Comments Specimen Tested (test code = Serum 8230289090) Cryptococcal Antigen (test code = Negative Negative 53590-7) [facility] GrapevinePREGNANCY TEST, [id number] 23:17:42 Test Item Value Reference Range Interpretation Comments PREG SERUM (test code Negative = 8615252674) SONIA (test code = SONIA) Less than 10 IU/L. ?If low titer or ectopic is suspected, resubmit specimen in 48-72 hours. [facility] GrapevineHAV ANTIBODY (IGG AND IGM)2022-03-21 23:05:24 Test Item Value Reference Range Interpretation Comments HAV Total (test code Positive = 2004384944) HAVT Semi-Quantitative (test code = 4113572880) SONIA (test code = SONIA) Indicates past or present infection with HAV or exposure to HAV due to vaccination. [facility] GrapevineALPHA [id number] 22:53:06 Test Item Value Reference Range Interpretation Comments AFP (test code = 1.6 ng/mL See_Comment [Automated 3116726967) message] The system which generated this result transmitted reference range : <=7.5. The reference range was not used to interpret this result as normal/abnormal . SONIA (test code = SONIA) Biotin has been reported to cause a negative bias, interpret results relative to patient's use of biotin. Lab Interpretation Normal (test code = 62554-9) [facility] GrapevineFREE [id number] 22:34:45 Test Item Value Reference Range Interpretation Comments FREE T4 (test code = See_Comment [Autom ated message] 6365552239) The system Verified Person generated this result transmitted ref erence range: 0.78 - 2 .20 ng/dL:. The ref erence range was not u sed to interpret this result as normal/abnor mal. Lab Interpretation (test Normal code = 63776-1) [facility] GrapevineTRIIODOTHYRONINE2022-09-05 22:33:44 Test Item Value Reference Range Interpretation Comments T3 (test code = 1174525559) 76.3 ng/dL 97-170 L Lab Interpretation (test code = Abnormal 80716-3) [facility] GrapevineIRON [id number] 22:22:25 Test Item Value Reference Range Interpretation Comments IRON (test code = 1097915922) 22 ug/dL 50-160 L TIBC (test code = 8577605900) 129 ug/dL 250-410 L % FE SAT (test code = 3142633684) 17 % 20-50 L Lab Interpretation (test code = Abnormal 60544-3) [facility] GrapevineType and Screen - Second separate ABO RH required for UNOS guidelines ONCE [id number] 22:12:00 Test Item Value Reference Range Interpretation Comments ABO & RH (test code A POSITIVE Performe d at [facility] = 20) Laboratory Serv [facility] [place] [address] s [address]Csmj Free: [phone] A No. [id number] IAT (test code = Negative Performed a t [facility] 1185) Laboratory Serv [facility] [address] [place] [address] s [address]Hsgn Free: [phone] A No. [id number] [facility] GrapevineBASI METABOLIC PANEL (NA, K, CL, CO2, GLUCOSE, BUN, CREATININE, CA)2022-03-21 21:48:18 Test Item Value Reference Range Interpretation Comments NA (test code = 127 mmol/L 135-145 L 3372041466) K (test code = 3.8 mmol/L 3.5-5 0487363111) CL (test code = 98 mmol/L 98-108 5975657246) CO2 TOTAL (test code = 28 mmol/L 23-31 4268108678) AGAP (test code = 2-16 L 2007487046) BUN (test code = 7-23 L 4926534017) GLUCOSE (test code = 132 mg/dL 70-110 H 2790549670) CREATININE (test code = 0.31 mg/dL 0.5-1.04 L 4189503313) CALCIUM (test code = 7.6 mg/dL 8.6-10.6 L 3143535064) eGFR (test code = mL/min/1.73m2 2924518172) SONIA (test code = SONIA) Association of [...] tests). Lab Interpretation Abnormal (test code = 32206-8) [facility] GrapevineOSMOLALITY, SERUM OR [id number] 19:03:35 Test Item Value Reference Range Interpretation Comments OSMOLALITY (test code = See_Comment L [Au tomated message] 2692-2) The system Verified Person generated this result transmitted ref erence range: 278 - 30 5 mOsm/kg. The reference range was not used to int erpret this result as normal/abnormal . Lab Interpretation (test Abnormal code = 72921-0) [facility] GrapevineFERRITIN [id number] 17:27:53 Test Item Value Reference Range Interpretation Comments FERRITIN (test code = 128.0 ng/mL 6-137 7603259645) SONIA (test code = SONIA) Biotin has been reported to cause a negative bias, interpret results relative to patient's use of biotin. Lab Interpretation (test Normal code = 21375-5) [facility] GrapevineTHYROID STIMULATING [id number] 17:23:52 Test Item Value Reference Range Interpretation Comments TSH (test code = See_Comment [Automated message] 6171034733) The system Verified Person generated this result transmitted ref erence range: 0.45 - 4 .70 mIU/L. The refe rence range was not u sed to interpret this result as normal/abnor mal. Lab Interpretation (test Normal code = 28668-9) [facility] GrapevineLIPID PANEL (91177)(TOTAL CHOLESTEROL, TRIGLYCERIDES, HDL)2022-03-21 16:49:10 Test Item Value Reference Range Interpretation Comments CHOL (test code = 122 mg/dL 120-200 0875174888) HDL (test code = 22 mg/dL See_Comment L [Automated message] 4568279386) The system Verified Person generated this result transmit afshin reference range : >=50. The refer ence range was not u sed to interpret th is result as normal/abnormal . HDLC RATIO (test code = See_Comment H [Au tomated message] 2350965795) The system Verified Person generated this result transmit afshin reference range : <=4.5. The refe rence range was not u sed to interpret th is result as normal/abnormal . TRIG (test code = 74 mg/dL 30-170 9226249256) LDL CHOL (test code = 85 mg/dL See_Comment [Auto mated message] 85638-3) The system Verified Person generated this result transmit afshin reference range : <=160. The refe rence range was not u sed to interpret th is result as normal/abnormal . VLDL (test code = 15 mg/dL 5-60 3288967563) Lab Interpretation (test Abnormal code = 64457-3) [facility] GrapevineGAMMA [id number] 16:49:10 Test Item Value Reference Range Interpretation Comments GGT (test code = 0722227546) 54 U/L 13-40 H Lab Interpretation (test code = Abnormal 17281-5) [facility]vineBAUOFL [facility] METABOLIC PANEL (NA, K, CL, CO2, GLUCOSE, BUN, CREATININE, CA)2022-03-21 15:38:30 Test Item Value Reference Range Interpretation Comments NA (test code = 127 mmol/L 135-145 L 0693697773) K (test code = 3.9 mmol/L 3.5-5 4092599318) CL (test code = 98 mmol/L 98-108 7401091051) CO2 TOTAL (test code = 31 mmol/L 23-31 8264269514) AGAP (test code = 2-16 L 5290755454) BUN (test code = 7-23 L 9844607803) GLUCOSE (test code = 109 mg/dL 70-110 4344345529) CREATININE (test code = 0.30 mg/dL 0.5-1.04 L 9300291833) CALCIUM (test code = 8.2 mg/dL 8.6-10.6 L 8171548383) eGFR (test code = mL/min/1.73m2 3261238095) SONIA (test code = SONIA) Association of [...] tests). Lab Interpretation Abnormal (test code = 60666-1) [facility]. METABOLIC PANEL (20564)2022-03-21 03:00:01 Test Item Value Reference Range Interpretation Comments NA (test code = 119 mmol/L 135-145 LL 6665535430) K (test code = 3.9 mmol/L 3.5-5 1859798454) CL (test code = 92 mmol/L 98-108 L 3349223937) CO2 TOTAL (test code = 26 mmol/L 23-31 8427660411) AGAP (test code = 2-16 L 0706668189) BUN (test code = 5 mg/dL 7-23 L 4150313550) GLUCOSE (test code = 126 mg/dL 70-110 H 9962783343) CREATININE (test code = 0.29 mg/dL 0.5-1.04 L 0048816960) TOTAL BILI (test code = 4.0 mg/dL 0.1-1.1 H 3175854228) CALCIUM (test code = 8.0 mg/dL 8.6-10.6 L 2871353143) T PROTEIN (test code = 6.4 g/dL 6.3-8.2 2603251939) ALBUMIN (test code = 2.6 g/dL 3.5-5 L 5701290921) ALK PHOS (test code = 129 U/L 34-122 H 3608689367) ALTv (test code = 32 U/L 5-35 1742-6) AST(SGOT) (test code = 51 U/L 13-40 H 6577705145) eGFR (test code = mL/min/1.73m2 0164577052) SONIA (test code = SONIA) Association of [...] tests). Lab Interpretation Abnormal (test code = 63076-7) [facility] [id number] 02:48:49 Test Item Value Reference Interpretation Comments Range TROPONIN I (test 0.006 ng/mL See_Comment [Automated code = 6770347287) message] The system which generated this result [...] biotin. Lab Interpretation Normal (test code = 42197-8) [facility]vineN-TERMINAL [id number]-[id number] 02:48:49 Test Item Value Reference Range Interpretation Comments NT-proBNP (test code 228 pg/mL See_Comment H [Autom ated = 8888716133) message] The system which generated this result transmitted reference range : <=125. The reference range was not used to interpret this result as normal/abnormal . SONIA (test code = SONIA) Biotin has been reported to cause a negative bias, interpret results relative to patient's use of biotin. Lab Interpretation Abnormal (test code = 12853-0) [facility]vineETHANOL2022-09-05 02:38:02 ALCOHOL<10mg/dL03/20/2022 9:38 PM CDTUTMB LABORATORY SERVICESToxic Greater than or equal to 80 mg/dL. NOTE: Whole blood values are approximately 10% to 15% lower than serum and plasma.[facility]vine[facility]IPASE2022-09-05 02:35:06 Test Item Value Reference Range Interpretation Comments LIPASE (test code = 2312592952) 31 U/L 0-220 Lab Interpretation (test code = Normal 81277-4) [facility] WITH [id number] 02:27:08 Test Item Value Reference Range Interpretation [...] (test code = 65.5 fL 39-49.9 H 35324-7) RDW-CV (test code = 18.2 % 12-15.5 H 788-0) PLT (test code = See_Comment L [Automated 777-3) message] The sy stem which generated this result transmitted reference range : 166 - 358 10*3/ ?L. The reference r yvonne was not used to interpret this result as normal/abnormal . MPV (test code = 10.3 fL 9.5-12.9 52157-3) NRBC/100 WBC (test See_Comment [Automat ed code = 3812217379) message] The system which generated this result transmitted reference range : 0.0 - 10.0 /100 WBCs. The refer ence range was not u sed to interpret th is result as normal/abnormal . NRBC x10^3 (test code See_Comment [Auto mated = 9997929027) message] The s ystem which generated this result transmitted reference range : 10*3/?L. The reference range was not used to interpret this result as normal/abnormal . GRAN MAT (NEUT) % 70.3 % (test code = 770-8) IMM GRAN % (test code 0.30 % = 6264319930) LYMPH % (test code = 17.8 % 736-9) MONO % (test code = 9.2 % 5905-5) EOS % (test code = 2.2 % 713-8) BASO % (test code = 0.2 % 706-2) GRAN MAT x10^3(ANC) 4.20 10*3/uL 1.88-7.09 (test code = 9007409117) IMM GRAN x10^3 (test 0-0.06 code = 5272805732) LYMPH x10^3 (test code 1.06 10*3/uL 1.32-3.29 L = 731-0) MONO x10^3 (test code 0.55 10*3/uL 0.33-0.92 = 742-7) EOS x10^3 (test code = 0.13 10*3/uL 0.03-0.39 711-2) BASO x10^3 (test code 0.01-0.07 = 704-7) Lab Interpretation Abnormal (test code = 40615-9) [facility]vine[facility]ung[facility] culture + [id number] 01:35:09 Test Item Value Reference Range Interpretation Comments Result (test code = 2+ Marybeth albicans A 6463-4) Fungus Smear (test code = No fungi seen 1406) Lab Interpretation (test Abnormal code = 07740-3) [facility] + [id number] 01:35:09 Test Item Value Reference Range Interpretation Comments Result (test code = 2+ Marybeth albicans A 6463-4) Fungus Smear (test code = No fungi seen 1406) Lab Interpretation (test Abnormal code = 89244-1) [facility] + [id number] 01:35:09 Test Item Value Reference Range Interpretation Comments Result (test code = 2+ Marybeth albicans A 6463-4) Fungus Smear (test code = No fungi seen 1406) Lab Interpretation (test Abnormal code = 43042-5) [facility] + [id number] 01:35:09 Test Item Value Reference Range Interpretation Comments Result (test code = 2+ Marybeth albicans A 6463-4) Fungus Smear (test code = No fungi seen 1406) Lab Interpretation (test Abnormal code = 34379-4) [facility] + [id number] 01:35:09 Test Item Value Reference Range Interpretation Comments Result (test code = 2+ Marybeth albicans A 6463-4) Fungus Smear (test code = No fungi seen 1406) Lab Interpretation (test Abnormal code = 95971-3) [facility] + [id number] 01:35:09 Test Item Value Reference Range Interpretation Comments CULTURE (BEAKER) A 2+ Marybeth albicans (test code = 1095) FUNGUS SMEAR No fungi seen (BEAKER) (test code = 1406) FUNGUS CULTURE + [id number] 00:06:37 Test Item Value Reference Range Interpretation [...] Interpretation Comments POCT GLU (test code = 9258241050) 114 mg/dL 70-110 H Lab Interpretation (test code = Abnormal 29811-9) [facility] GLUCOSE (AUTOMATED)2022-03-16 13:29:50 Test Item Value Reference Range Interpretation Comments POCT GLU (test code = 7373497137) 90 mg/dL 70-110 Lab Interpretation (test code = Normal 74335-9) [facility] GLUCOSE (AUTOMATED)2022-03-16 02:07:22 Test Item Value Reference Range Interpretation Comments POCT GLU (test code = 8163979505) 148 mg/dL 70-110 H Lab Interpretation (test code = Abnormal 23516-4) [facility] GLUCOSE (AUTOMATED)2022-03-15 21:47:06 Test Item Value Reference Range Interpretation Comments POCT GLU (test code = 4730915175) 146 mg/dL 70-110 H Lab Interpretation (test code = Abnormal 64917-6) [facility] GLUCOSE (AUTOMATED)2022-03-15 16:39:40 Test Item Value Reference Range Interpretation Comments POCT GLU (test code = 4740555337) 126 mg/dL 70-110 H Lab Interpretation (test code = Abnormal 25185-0) [facility] GLUCOSE (AUTOMATED)2022-03-15 13:02:21 Test Item Value Reference Range Interpretation Comments POCT GLU (test code = 7149300801) 101 mg/dL 70-110 Lab Interpretation (test code = Normal 30215-7) [facility] GLUCOSE (AUTOMATED)2022-03-15 02:07:01 Test Item Value Reference Range Interpretation Comments POCT GLU (test code = 2557248359) 105 mg/dL 70-110 Lab Interpretation (test code = Normal 78586-1) [facility] GLUCOSE (AUTOMATED)2022-03-14 21:38:03 Test Item Value Reference Range Interpretation Comments POCT GLU (test code = 4310471340) 117 mg/dL 70-110 H Lab Interpretation (test code = Abnormal 33936-5) [facility] GLUCOSE (AUTOMATED)2022-03-14 16:42:29 Test Item Value Reference Range Interpretation Comments POCT GLU (test code = 9600676512) 95 mg/dL 70-110 Lab Interpretation (test code = Normal 48353-4) [facility] GLUCOSE (AUTOMATED)2022-03-14 12:54:32 Test Item Value Reference Range Interpretation Comments POCT GLU (test code = 1107368499) 85 mg/dL 70-110 Lab Interpretation (test code = Normal 93658-9) [facility] GLUCOSE (AUTOMATED)2022-03-14 12:24:08 Test Item Value Reference Range Interpretation Comments POCT GLU (test code = 3076100108) 94 mg/dL 70-110 Lab Interpretation (test code = Normal 50688-6) [facility] GLUCOSE (AUTOMATED)2022-03-14 01:26:20 Test Item Value Reference Range Interpretation Comments POCT GLU (test code = 9347060859) 104 mg/dL 70-110 Lab Interpretation (test code = Normal 99974-4) [facility] GLUCOSE (AUTOMATED)2022-03-13 20:48:41 Test Item Value Reference Range Interpretation Comments POCT GLU (test code = 9274863617) 177 mg/dL 70-110 H Lab Interpretation (test code = Abnormal 49741-9) [facility]. METABOLIC PANEL (35157)2022-03-13 04:28:13 Test Item Value Reference Range Interpretation Comments NA (test code = 133 mmol/L 135-145 L 4166507271) K (test code = 3.0 mmol/L 3.5-5 L 0684649134) CL (test code = 107 mmol/L 98-108 9622338296) CO2 TOTAL (test code = 22 mmol/L 23-31 L 1482671159) AGAP (test code = 2-16 2913012339) BUN (test code = 6 mg/dL 7-23 L 7014911179) GLUCOSE (test code = 110 mg/dL 70-110 1401848552) CREATININE (test code = 0.24 mg/dL 0.5-1.04 L 5100771367) TOTAL BILI (test code = 6.1 mg/dL 0.1-1.1 H 5031517288) CALCIUM (test code = 7.2 mg/dL 8.6-10.6 L 5515455051) T PROTEIN (test code = 5.0 g/dL 6.3-8.2 L 0461916605) ALBUMIN (test code = 2.3 g/dL 3.5-5 L 3077138019) ALK PHOS (test code = 116 U/L 34-122 9298158452) ALTv (test code = 46 U/L 5-35 H 1742-6) AST(SGOT) (test code = 54 U/L 13-40 H 8760041907) eGFR (test code = mL/min/1.73m2 0017144839) SONIA (test code = SONIA) Association of [...] tests). Lab Interpretation Abnormal (test code = 41378-8) [facility]vineProthrombin Time / [id number] 03:56:33 Test Item Value Reference Range Interpretation Comments PROTIME PATIENT (test See_Comment H [Auto mated message] code = 5964-2) The system [employer] generated this result transmitted ref erence range: 12.0 - 1 4.7 Seconds. The reference range was not used to int erpret this result as normal/abnormal . INR (test code = 6301-6) Nor mal INR <1.1; Warfarin Therap eutic range 2.0 to 3. 0 or 2.5 to 3.5, dep ending upon the indica tions. Lab Interpretation (test Abnormal code = 22523-9) [facility]vineTROPONIN [id number] 03:48:32 Test Item Value Reference Interpretation Comments Range TROPONIN I (test 0.019 ng/mL See_Comment [Automated code = 0141198431) message] The system which generated this result [...] biotin. Lab Interpretation Normal (test code = 99156-8) [facility]vineCB WITH [id number] 03:48:12 Test Item Value Reference Range Interpretation Comments WBC (test code = See_Comment [Automated 0925-2) message] The sy stem which generated this result transmitted reference range : 4.30 - 11.10 10*3/?L. The reference range was not used to interpret this result as normal/abnormal . RBC (test code = See_Comment L [Automated 989-8) message] The sy stem which generated this [...] (test code = 88.3 fL 39-49.9 H 70490-7) RDW-CV (test code = 23.2 % 12-15.5 H 788-0) PLT (test code = See_Comment L [Automated 777-3) message] The sy stem which generated this result transmitted reference range : 166 - 358 10*3/ ?L. The reference r yvonne was not used to interpret this result as normal/abnormal . MPV (test code = 11.5 fL 9.5-12.9 20466-8) IPF % (test code = 5.0 % 1.3-7.7 Platelet count 8837761773) measured by fluorescence method. NRBC/100 WBC (test See_Comment [Automat ed code = 8838186285) message] The system which generated this result transmitted reference range : 0.0 - 10.0 /100 WBCs. The refer ence range was not u sed to interpret th is result as normal/abnormal . NRBC x10^3 (test code See_Comment [Auto mated = 6789048485) message] The s ystem which generated this result transmitted reference range : 10*3/?L. The reference range was not used to interpret this result as normal/abnormal . GRAN MAT (NEUT) % 85.3 % (test code = 770-8) IMM GRAN % (test code 0.60 % = 9955902342) LYMPH % (test code = 8.5 % 736-9) MONO % (test code = 5.4 % 5905-5) EOS % (test code = 0.1 % 713-8) BASO % (test code = 0.1 % 706-2) GRAN MAT x10^3(ANC) 9.25 10*3/uL 1.88-7.09 H (test code = 0096590098) IMM GRAN x10^3 (test 0.06 10*3/uL 0-0.06 code = 7423768065) LYMPH x10^3 (test code 0.92 10*3/uL 1.32-3.29 L = 731-0) MONO x10^3 (test code 0.59 10*3/uL 0.33-0.92 = 742-7) EOS x10^3 (test code = 0.03-0.39 L 711-2) BASO x10^3 (test code 0.01-0.07 = 704-7) Lab Interpretation Abnormal (test code = 06180-1) [facility]vineN-TERMINAL [id number] 03:45:31 Test Item Value Reference Range Interpretation Comments NT-proBNP (test code 1460 pg/mL See_Comment H [Autom ated = 4578639254) message] The system which generated this result transmitted reference range : <=125. The reference range was not used to interpret this result as normal/abnormal . SONIA (test code = SONIA) Biotin has been reported to cause a negative bias, interpret results relative to patient's use of biotin. Lab Interpretation Abnormal (test code = 71418-0) [facility]vineLIPASE2022-08-28 03:36:13 Test Item Value Reference Range Interpretation Comments LIPASE (test code = 8617792569) 65 U/L 0-220 Lab Interpretation (test code = Normal 04898-4) [facility]vineAMMONIA, [id number] 03:21:51 Test Item Value Reference Range Interpretation Comments AMMONIA (test code = 7314664887) 43 umol/L 9-33 H Lab Interpretation (test code = Abnormal 93936-8) [facility]vineECG/EKG Rstfkixpvdqhoa1738-89-99 08:36:10 Test Item Value Reference Range Interpretation [...] criteria. Lab Interpretation Abnormal (test code = 89545-7) [facility]KG Audporldekxwri8646-57-00 08:36:10 Test Item Value Reference Range Interpretation [...] criteria. Lab Interpretation Abnormal (test code = 33518-3) [facility]KG Mgtxqnyyhnkjdt5386-50-53 08:36:10 Test Item Value Reference Range Interpretation [...] criteria. Lab Interpretation Abnormal (test code = 77270-2) [facility]EC[facility]KG Zwymbuukssagts4164-51-79 08:36:10 Test Item Value Reference Range Interpretation [...] criteria. Lab Interpretation Abnormal (test code = 64575-1) [facility]EC[facility]EKG Lyoymfjexikzpk5335-78-42 08:36:10 Test Item Value Reference Range Interpretation Comments SONIA (test code = OSNIA) Tanisha Quiroz MD 03/12/2022 8:38 AMECG/EKG Interpretation [...] criteria. Lab Interpretation Abnormal (test code = 30283-4) [facility] CenterCOMPREHENSIVE METABOLIC [id number] 02:32:58 Test Item Value Reference Range Interpretation [...] not appl icable for dialysis patien ts Multimedia Specialist ID - BSSpecimen moderately ictericCBC W/PLT COUNT & AUTO JQWGIDNVYYWO6597-56-80 01:21:22 Test Item Value Reference Range Interpretation [...] = 2801) RAD, CHEST, 1 VIEW, NON [id number] 11:18:00Reason for exam:- >intubatedShould this be performed at the bedside?->Yes [facility] [place] COLLAZO KALIE : 1985 Sex: FFINAL REPORT INDICATION: intubated [...] Radford Verified Date/Time: 03/11/2022 11:18:05 Reading Location: [facility] Radiology Reading Room POC-Glucose [id number] 08:49:15 Test Item Value Reference Range Interpretation Comments POC-Glucose Meter (test 110 mg/dL 70-110 : TE STED AT [facility] code = 1538) [address] [place] [address], [address]: Multimedia Specialist/Techni shantelle ID = [id number] for BHARAT, MARI Lab Interpretation (test Normal code = 78408-7) [facility] CenterP[facility]Glucose pzfxe3878-12-05 08:49:15 Test Item Value Reference Range Interpretation Comments POC-Glucose Meter (test 110 mg/dL 70-110 : TE STED AT [facility] code = 1538) [address] [place] [address], [address]: Multimedia Specialist/Techni shantelle ID = [id number] for BHARAT, MARI Lab Interpretation (test Normal code = 02494-2) [facility] CenterPOC[facility]Glucose qhxrd8716-28-53 08:49:15 Test Item Value Reference Range Interpretation Comments POC-Glucose Meter (test 110 mg/dL 70-110 : TE STED AT [facility] code = 1538) [address] [place] [address], [address]: Multimedia Specialist/Techni shantelle ID = [id number] for BHARAT, MARI Lab Interpretation (test Normal code = 51697-9) [facility] CenterPOC-Glucose swgqx6388-74-10 08:49:15 Test Item Value Reference Range Interpretation Comments POC-Glucose Meter (test 110 mg/dL 70-110 : TE STED AT [facility] code = 1538) [address] [place] [address], [address]: Multimedia Specialist/Techni shantelle ID = [id number] for BHARAT, MARI Lab Interpretation (test Normal code = 28243-8) [facility] CenterPO-Glucose bkhvo9825-36-30 08:49:15 Test Item Value Reference Range Interpretation Comments POC-Glucose Meter (test 110 mg/dL 70-110 : TE STED AT [facility] code = 1538) [address] [place] [address]: Multimedia Specialist/Techni shantelle ID = [id number] for MARI NICHOLSON Lab Interpretation (test Normal code = 56777-0) [facility] CenterPOCT-GLUCOSE GOIKS1885-59-15 08:49:15 Test Item Value Reference Range Interpretation Comments POC-GLUCOSE METER 110 mg/dL 70-110 : TESTED A T [facility] 6720 (BEAKER) (test code = JOSE R Drummond [facility], 1538) [address]: Multimedia Specialist/Techni shantelle ID = [id number] for MARI DELGADO COMPREHENSIVE METABOLIC [id number] 06:43:06 Test Item Value Reference Range Interpretation [...] not appl icable for dialysis patien ts Multimedia Specialist ID - DREAD MSpecimen moderately xwxurdsDCVCACQLPB9350-32-39 06:40:23 Test Item Value Reference Range Interpretation Comments PHOSPHORUS (BEAKER) (test code = 2.1 mg/dL 2.3-4.7 L 604) Multimedia Specialist ID - DREAD YBPJKKLXUR4709-01-03 06:40:22 Test Item Value Reference Range Interpretation Comments MAGNESIUM (BEAKER) (test code = 1.7 mg/dL 1.6-2.6 627) Multimedia Specialist ID - DREAD MCBC (HEMOGRAM ONLY)2022-03-11 [...] (BEAKER) (test code = 413) Lactic Acid, Xdafpzlx8352-17-90 05:29:47 Test Item Value Reference Range Interpretation Comments Lactate, Art (test code = 1.1 mmol/L 0.5-2.2 2874) SONIA (test code = SONIA) Multimedia Specialist ID - DREAD Zhaoecimen moderately icteric Lab Interpretation (test Normal code = 46829-9) [facility] CenterLactic Acid, Cskgmgei2922-41-07 05:29:47 Test Item Value Reference Range Interpretation Comments Lactate, Art (test code = 1.1 mmol/L 0.5-2.2 2874) SONIA (test code = SONIA) Multimedia Specialist ID - DREAD Zhaoecimen moderately icteric Lab Interpretation (test Normal code = 96302-4) [facility] CenterLactic Acid, Pyrglfaf1385-45-52 05:29:47 Test Item Value Reference Range Interpretation Comments Lactate, Art (test code = 1.1 mmol/L 0.5-2.2 2874) SONIA (test code = SONIA) Multimedia Specialist ID - DREAD Zhaoecimen moderately icteric Lab Interpretation (test Normal code = 72437-8) [facility] CenterLactic Acid, Vsoxxmqm6464-56-30 05:29:47 Test Item Value Reference Range Interpretation Comments Lactate, Art (test code = 1.1 mmol/L 0.5-2.2 2874) SONIA (test code = SONIA) Multimedia Specialist ID - DREAD MSpecimen moderately icteric Lab Interpretation (test Normal code = 65871-0) [facility] CenterLactic Acid, Thzqhvfp3975-21-78 05:29:47 Test Item Value Reference Range Interpretation Comments Lactate, Art (test code = 1.1 mmol/L 0.5-2.2 2874) SONIA (test code = SONIA) Multimedia Specialist ID - DREAD MSpecimen moderately icteric Lab Interpretation (test Normal code = 38625-4) [facility] CenterLACTIC ACID, [id number] 05:29:47 Test Item Value Reference Range Interpretation Comments LACTATE BLOOD ARTERIAL (2) 1.1 mmol/L 0.5-2.2 (BEAKER) (test code = 2874) Multimedia Specialist ID - DREAD Zhaoecimen moderately ymdzzcyTGEHVIFDHW7730-47-55 05:28:06 Test Item Value Reference Range Interpretation Comments FIBRINOGEN LEVEL (BEAKER) (test 177 mg/dl 225-434 L code = 658) PROTHROMBIN TIME/DTL1710-60-98 05:27:39 Test Item Value Reference Range Interpretation Comments PROTIME (BEAKER) 19.4 seconds 11.9-14.2 H (test code = 759) INR (BEAKER) (test 1.75 See_Comment [Automat ed message] code = 370) The system Verified Person generated this result transmitted ref erence range: <=5.90. The reference range was not used to int erpret this result as normal/abnormal . RECOMMENDED COUMADIN/WARFARIN INR THERAPY RANGESSTANDARD DOSE: 2.0 - 3.0 Includes: PROPHYLAXIS for venous thrombosis, systemic embolization; TREATMENT for venous thrombosis and/or pulmonary embolus.HIGH RISK: Target INR is 2.5-3.5 for patients with mechanical heart valves.CALCIUM, [id number] 05:20:20 Test Item Value Reference Range Interpretation Comments CALCIUM IONIZED (BEAKER) (test 1.11 mmol/L 1.12-1.27 L code = 698) PH, BLOOD (BEAKER) (test code = 7.48 1810) POCT-GLUCOSE [id number] 21:04:54 Test Item Value Reference Range Interpretation Comments POC-GLUCOSE METER 123 mg/dL 70-110 H : TESTED A T [facility] 6720 (BEAKER) (test code = JOSE R Drummond [facility], 1538) [address]: Multimedia Specialist/Techni shantelle ID = [id number] for AMERICO FINK POCT-GLUCOSE [id number] 17:23:30 Test Item Value Reference Range Interpretation Comments POC-GLUCOSE METER 102 mg/dL 70-110 : TESTED A T [facility] 6720 (BEAKER) (test code = JOSE R Drummond [facility], 1538) [address]: Multimedia Specialist/Techni shantelle ID = [id number] for JASWINDER MARTE POCT-GLUCOSE [id number] 13:29:05 Test Item Value Reference Range Interpretation Comments POC-GLUCOSE METER 82 mg/dL 70-110 : TESTED A T [facility] 6720 (BEAKER) (test code = [place], 1538) [address]: Multimedia Specialist/Techni shantelle ID = [id number] for JASWINDER RESTREPO COMPREHENSIVE METABOLIC [id number] 07:50:34 Test Item Value Reference Range Interpretation [...] not appl icable for dialysis patien ts Multimedia Specialist ID - GEOVANNA LSpecimen moderately ictericCBC (HEMOGRAM ONLY)2022-03-10 07:37:28 Test [...] 0-0 CELLS (BEAKER) (test code = 413) GDTUDFDFK2716-24-51 07:32:21 Test Item Value Reference Range Interpretation Comments MAGNESIUM (BEAKER) (test code = 1.7 mg/dL 1.6-2.6 627) Multimedia Specialist ID - GEOVANNA EOHRFRPNFDN5283-66-25 07:32:21 Test Item Value Reference Range Interpretation Comments PHOSPHORUS (BEAKER) (test code = 2.6 mg/dL 2.3-4.7 604) Multimedia Specialist ID - GEOVANNA ICBOZIRPVGO2344-78-81 07:17:17 Test Item Value Reference Range Interpretation Comments FIBRINOGEN LEVEL (BEAKER) (test 133 mg/dl 225-434 L code = 658) LACTIC ACID, JTJFPMOS1115-54-52 07:15:38 Test Item Value Reference Range Interpretation Comments LACTATE BLOOD ARTERIAL (2) 1.1 mmol/L 0.5-2.2 (BEAKER) (test code = 2874) Multimedia Specialist ID - GEOVANNA LSpecimen moderately ictericCALCIUM, JZQRBWP9385-44-70 07:14:48 Test Item Value Reference Range Interpretation Comments CALCIUM IONIZED (BEAKER) (test 0.92 mmol/L 1.12-1.27 L code = 698) PH, BLOOD (BEAKER) (test code = 7.53 1810) PROTHROMBIN TIME/OIN5719-08-68 07:11:53 Test Item Value Reference Range Interpretation Comments PROTIME (BEAKER) 21.0 seconds 11.9-14.2 H (test code = 759) INR (BEAKER) (test 1.94 See_Comment [Automat ed message] code = 370) The system Verified Person generated this result transmitted ref erence range: <=5.90. The reference range was not used to int erpret this result as normal/abnormal . RECOMMENDED COUMADIN/WARFARIN INR THERAPY RANGESSTANDARD DOSE: 2.0 - 3.0 Includes: PROPHYLAXIS for venous thrombosis, systemic embolization; TREATMENT for venous thrombosis and/or pulmonary embolus.HIGH RISK: Target INR is 2.5-3.5 for patients with mechanical heart valves.POCT-GLUCOSE [id number] 21:24:08 Test Item Value Reference Range Interpretation Comments POC-GLUCOSE METER 94 mg/dL 70-110 : TESTED A T [facility] 6720 [facility] (test code = [place], 1538) [address]: Multimedia Specialist/Techni shantelle ID = [id number] for AMERICO MCKENZIE SARS-CoV2/RT-PCR (Asymptomatic ONLY)2022-03-09 14:39:13 Test Item Value Reference Range Interpretation Comments SARS-COV2/RT-PCR Negative Not Detected, (test code = Negative, See 05241-0) external report for linked test SARS-COV-[address] [facility] PERFORMING LAB (test code = 75853-7) SONIA (test code = Negative result for [...] of the Act. Fact Sheet for Healthcare Providers:https://www.NeurAxon idel.[employer]/sites/default/f real/product/documents/F act_Sheet_HC_Providers_L jhj_NPAR-QhP-1.pdf Fact Sheet for Healthcare Patients:https://www.richard del.[employer]/sites/default/fi les/product/documents/Fa ct_Sheet_Patients_Lyra_S ARS-CoV-2.pdf Performing Laboratory:[facility] [place] [address] [facility] (Asymptomatic ONLY)2022-03-09 14:39:13 Test Item Value Reference Range Interpretation Comments SARS-COV2/RT-PCR Negative Not Detected, (test code = Negative, See 75839-0) external report for linked test SARS-COV-2 [facility] PERFORMING LAB (test code = 40038-0) SONIA (test code = Negative result for [...] of the Act. Fact Sheet for Healthcare Providers:https://www.Ne[employer]on idel.[employer]/sites/default/f real/product/documents/F act_Sheet_HC_Providers_L yui_DDLW-KlM-4.pdf Fact Sheet for Healthcare Patients:https://www.Coltello Ristorante.[employer]/sites/default/fi les/product/documents/Fa ct_Sheet_Patients_Lyra_S ARS-CoV-2.pdf Performing Laboratory:[facility] [place] [address] [facility] (Asymptomatic ONLY)2022-03-09 14:39:13 Test Item Value Reference Range Interpretation Comments SARS-COV2/RT-PCR Negative Not Detected, (test code = Negative, See 23592-7) external report for linked test SARS-COV-2 [facility] PERFORMING LAB (test code = 12472-7) SONIA (test code = Negative result for [...] of the Act. Fact Sheet for Healthcare Providers:https://www.Enverv.[employer]/sites/default/f real/product/documents/F act_Sheet_HC_Providers_L imo_HOQC-AaF-7.pdf Fact Sheet for Healthcare Patients:https://www.Coltello Ristorante.[employer]/sites/default/fi les/product/documents/Fa ct_Sheet_Patients_Ly_S ARS-CoV-2.pdf Performing Laboratory:[facility] [place] [address] [facility] (Asymptomatic ONLY)2022-03-09 14:39:13 Test Item Value Reference Range Interpretation Comments SARS-COV2/RT-PCR Negative Not Detected, (test code = Negative, See 59000-6) external report for linked test SARS-COV-2 [facility] PERFORMING LAB (test code = 56052-6) SONIA (test code = Negative result for [...] of the Act. Fact Sheet for Healthcare Providers:https://www.Enverv.[employer]/sites/default/f real/product/documents/F act_Sheet_HC_Providers_L rqd_XQPS-NzG-4.pdf Fact Sheet for Healthcare Patients:https://www.Coltello Ristorante.[employer]/sites/default/fi les/product/documents/Fa ct_Sheet_Patients_Ly_S ARS-CoV-2.pdf Performing Laboratory:[facility] [place] [address] [facility] (Asymptomatic ONLY)2022-03-09 14:39:13 Test Item Value Reference Range Interpretation Comments SARS-COV2/RT-PCR Negative Not Detected, (test code = Negative, See 71207-9) external report for linked test SARS-COV-2 [facility] PERFORMING LAB (test code = 90804-8) SONIA (test code = Negative result for [...] of the Act. Fact Sheet for Healthcare Providers:https://www.Enverv.[employer]/sites/default/f real/product/documents/F act_Sheet_HC_Providers_L sxd_SGQH-RdS-7.pdf Fact Sheet for Healthcare Patients:https://www.LensVector/sites/default/fi les/product/documents/Fa ct_Sheet_Patients_Lyra_S ARS-CoV-2.pdf Performing Laboratory:[facility] [place] [address] [facility]OV2/[facility]-PCR ([facility])2022-03-09 14:39:13 Test Item Value Reference Range Interpretation Comments SARS-COV2/RT-PCR (test Negative Not Detected, Negative, code = 0693832) See external report for linked test SARS-COV-[address] [facility] (test code = 5702555) Negative result for this test determines that [...] of the Act.Fact Sheet for Healthcare Prov iders:https://www.ContaAzul/sites/default/files/product/documents/Fact_Sheet_HC _Cdrojqjuu_Gvwp_IMBC-PnD-0.pdfFact Sheet for Healthcare Patients:https://www.[employer]ul/sites/default/files/product/docume nts/Uxly_Ndtnt_Qwvdxbku_Jofo_GEXP-EpV-5.pdfPerforming Laboratory:[place] [id number], [place] [address]CMIS-XDHJLPY METER 2022-03-09 11:19:10 Test Item Value Reference Range Interpretation Comments POC-GLUCOSE METER 91 mg/dL 70-110 : [facility] (test code = [facility], 1538) [address]: Multimedia Specialist/Techni shantelle ID = [id number] for Nguy en, Ho Sabrina Gottlieb POCT-GLUCOSE [id number] 07:44:02 Test Item Value Reference Range Interpretation Comments POC-GLUCOSE METER 89 mg/dL 70-110 : TESTED A T [facility] 6720 ([facility]) (test code = [facility], 1538) 179[address]: Multimedia Specialist/Techni shantelle ID = [id number] for Nguy en, Ho Sabrina Gottlieb RAD, CHEST, 1 VIEW, NON [id number] 07:35:00Reason for exam:- >intubatedShould this be performed at the bedside?->Yes [facility] 1985 Sex: FFINAL REPORT [...] IMPRESSION: No acute intrathoracic abnormality. Signed: [facility] Verified Date/Time: 03/09/2022 07:35:34 Reading [facility]iology[facility] REHENSIVE METABOLIC [id number] 06:24:34 Test Item Value Reference Range Interpretation [...] not appl icable for dialysis patien ts Multimedia Specialist ID - DREAD MSpecimen moderately pnpvhkwAJTQJHDBH5880-28-24 06:19:17 Test Item Value Reference Range Interpretation Comments MAGNESIUM (BEAKER) (test code = 1.6 mg/dL 1.6-2.6 627) Multimedia Specialist ID - DREAD [id number] 06:19:17 Test Item Value Reference Range Interpretation Comments PHOSPHORUS (BEAKER) (test code = 2.9 mg/dL 2.3-4.7 604) Multimedia Specialist ID - DREAD IKTFODSBYQQ0256-40-40 05:59:03 Test Item Value Reference Range Interpretation Comments FIBRINOGEN LEVEL (BEAKER) (test 142 mg/dl 225-434 L code = 658) PROTHROMBIN TIME/[id number] 05:53:35 Test Item Value Reference Range Interpretation Comments PROTIME (BEAKER) 21.4 seconds 11.9-14.2 H (test code = 759) INR (BEAKER) (test 1.99 See_Comment [Automat ed message] code = 370) The system Verified Person generated this result transmitted ref erence range: <=5.90. The reference range was not used to int erpret this result as normal/abnormal . RECOMMENDED COUMADIN/WARFARIN INR THERAPY RANGESSTANDARD DOSE: 2.0 - 3.0 Includes: PROPHYLAXIS for venous thrombosis, systemic embolization; TREATMENT for venous thrombosis and/or pulmonary embolus.HIGH RISK: Target INR is 2.5-3.5 for patients with mechanical heart valves.CALCIUM, [id number] 05:37:21 Test Item Value Reference Range Interpretation [...] (BEAKER) (test code = 413) LACTIC ACID, [id number] 05:29:58 Test Item Value Reference Range Interpretation Comments LACTATE BLOOD ARTERIAL (2) 0.9 mmol/L 0.5-2.2 (BEAKER) (test code = 2874) Multimedia Specialist ID - DREAD MSpecimen moderately ictericPOCT-GLUCOSE [id number] 21:19:06 Test Item Value Reference Range Interpretation Comments POC-GLUCOSE METER 105 mg/dL 70-110 : TESTED A T [facility] 6720 (BEAKER) (test code = JOSE R Drum[place] [facility], 1538) [address]: Multimedia Specialist/Techni shantelle ID = [id number] for JEANMARIE BONILLA POCT-GLUCOSE [id number] 17:21:03 Test Item Value Reference Range Interpretation Comments POC-GLUCOSE METER 131 mg/dL 70-110 H : [facility] (test code KOFI [facility], = 1538) 42983: Multimedia Specialist/Techni shantelle ID = [id number] for LATT AMALIAJF Kt CASTILLOMAXIME CMV PCR, [id number] 16:19:26 Test Item Value Reference Range Interpretation [...] and its performance characteristics determined by the [facility] Pathol ogy Department, Section of Molecular [...] RESULT (test code = See scanned report [id number]) See scanned reportPOCT-GLUCOSE [id number] 11:09:15 Test Item Value Reference Range Interpretation Comments POC-GLUCOSE METER 114 mg/dL 70-110 H : TESTED A T [facility] 6720 (BEAKER) (test code = [place] [address] [place], 1538) [address]: Multimedia Specialist/Techni shantelle ID = [id number] for Cait Yeh Bacterial culture + gram [id number] 11:06:52 Test Item Value Reference Range Interpretation Comments Result (test code = 6463-4) See comment Gram Stain Result (test No organisms seen code = 1123) SONIA (test code = SONIA) 4+ [facility]ast [facility] [id number] 11:06:52 Test Item Value Reference Range Interpretation Comments Result (test code = 6463-4) See comment Gram Stain Result (test No organisms seen code = 1123) SONIA (test code = SONIA) 4+ [facility]ast [facility] [id number] 11:06:52 Test Item Value Reference Range Interpretation Comments Result (test code = 6463-4) See comment Gram Stain Result (test No organisms seen code = 1123) SONIA (test code = SONIA) 4+ [facility]ast [facility] gram [id number] 11:06:52 Test Item Value Reference Range Interpretation Comments Result (test code = 6463-4) See comment Gram Stain Result (test No organisms seen code = 1123) SONIA (test code = SONIA) 4+ Yeast [facility] + gram [id number] 11:06:52 Test Item Value Reference Range Interpretation Comments Result (test code = 6463-4) See comment Gram Stain Result (test No organisms seen code = 1123) SONIA (test code = SONIA) 4+ Yeast [facility] CenterBRON[facility] C[facility] + GRAM [id number] 11:06:52 Test Item Value Reference Range Interpretation Comments CULTURE (BEAKER) (test code See comment = 1095) GRAM STAIN RESULT (BEAKER) <1+ WBCs (test code = 1123) GRAM STAIN RESULT (BEAKER) No organisms seen (test code = 507203) 4+ [id number] 10:31:58 Test Item Value Reference Range Interpretation Comments POTASSIUM (BEAKER) (test code = 3.7 meq/L 3.5-5.1 379) Multimedia Specialist ID - CHRISTIANO [id number] 08:23:51 Test Item Value Reference Range Interpretation Comments PHOSPHORUS (BEAKER) (test code = 2.2 mg/dL 2.3-4.7 L 604) Multimedia Specialist ID - PIAYA LPOCT-GLUCOSE [id number] 07:40:14 Test Item Value Reference Range Interpretation Comments POC-GLUCOSE METER 93 mg/dL 70-110 : [facility] ([facility]ER) (test code = [place] [address] [place], 1538) [address]: Multimedia Specialist/Techni shantelle ID = [id number] for Melina Lombardi RAD, CHEST, 1 VIEW, NON [id number] 07:34:00Reason for exam:- >intubatedShould this be performed at the bedside?->Yes [facility] PAMELA KALIE : 1985 Sex: FFINAL REPORT RAD, CHEST, [...] disease, atelectasis, or pleural effusion. Signed: Livan Radfordeport Verified Date/Time: 03/08/2022 07:34:29 Reading Location: [facility] Radiology Reading Room POCT-GLUCOSE [id number] 07:08:26 Test Item Value Reference Range Interpretation Comments POC-GLUCOSE METER 90 mg/dL 70-110 : TESTED A T [facility] 6720 [facility] (test code = JOSE R Drummond [facility], 1538) [address]: Multimedia Specialist/Techni shantelle ID = [id number] for Lorna Hogue HEPATITIS A ANTIBODY, [id number] 05:31:54 Test Item Value Reference Range Interpretation Comments HEPATITIS A IGG ANTIBODY (BEAKER) Reactive Nonreactive A (test code = 2797) Multimedia Specialist ID - GEOVANNA [id number] 05:06:50 Test Item Value Reference Range Interpretation Comments FIBRINOGEN LEVEL (BEAKER) (test 139 mg/dl 225-434 L code = 658) [id number] 05:01:34 Test Item Value Reference Range Interpretation Comments PHOSPHORUS (BEAKER) (test code = 0.8 mg/dL 2.3-4.7 LL 604) Multimedia Specialist ID - PIDEE [id number] 04:50:41 Test Item Value Reference Range Interpretation Comments MAGNESIUM (BEAKER) (test code = 1.9 mg/dL 1.6-2.6 627) Multimedia Specialist ID - GEOVANNA LCOMPREHENSIVE METABOLIC [id number] 04:50:41 Test Item Value Reference Range Interpretation [...] not appl icable for dialysis patien ts Multimedia Specialist ID - PIAYA LSpecimen moderately ictericOXYGEN SATURATION, MEASURED 2022-03-08 04:47:02 Test Item Value Reference Range Interpretation Comments O2 SATURATION (MEASURED) (BEAKER) 91.0 % (test code = 1455) PROTHROMBIN TIME/[id number] 04:45:16 Test Item Value Reference Range Interpretation Comments PROTIME (BEAKER) 27.2 seconds 11.9-14.2 H (test code = 759) INR (BEAKER) (test 2.72 See_Comment [Automat ed message] code = 370) The system Verified Person generated this result transmitted ref erence range: [...] (BEAKER) (test code = 413) LACTIC ACID, [id number] 04:36:49 Test Item Value Reference Range Interpretation Comments LACTATE BLOOD ARTERIAL (2) 1.4 mmol/L 0.5-2.2 (BEAKER) (test code = 2874) Multimedia Specialist ID - PIAYA LSpecimen moderately ictericBlood gas, [id number] 04:36:04 Test Item Value Reference Range Interpretation Comments pH, Arterial (test code 7.57 7.35-7.45 H = 2744-1) pCO2, Arterial (test 32 See_Comment L [Autom ated message] code = 2019-02) The system [employer] generated this result transmit afshin reference range : 35 - 45 mm Hg. The reference range was not used to interpret this result as normal/abnormal . pO2, Arterial (test 95 See_Comment H [Automa afshin message] code = 2703-7) The system [employer] generated this result transmit afshin reference range [...] 21 Lab Interpretation Abnormal (test code = 87281-2) [facility], [id number] 04:36:04 Test Item Value Reference Range Interpretation Comments pH, Arterial (test code 7.57 7.35-7.45 H = 2744-1) pCO2, Arterial (test 32 See_Comment L [Autom ated message] code = 2019-02) The system [employer] generated this result transmit afshin reference range : 35 - 45 mm Hg. The reference range was not used to interpret this result as normal/abnormal . pO2, Arterial (test 95 See_Comment H [Automa afshin message] code = 2703-7) The system [employer] generated this result transmit afshin reference range [...] 21 Lab Interpretation Abnormal (test code = 56280-5) [facility] Center[facility], [id number] 04:36:04 Test Item Value Reference Range Interpretation Comments pH, Arterial (test code 7.57 7.35-7.45 H = 2744-1) pCO2, Arterial (test 32 See_Comment L [Autom ated message] code = 2019-02) The system [employer] generated this result transmit afshin reference range : 35 - 45 mm Hg. The reference range was not used to interpret this result as normal/abnormal . pO2, Arterial (test 95 See_Comment H [Automa afshin message] code = 2703-7) The system [employer] generated this result transmit afshin reference range [...] 21 Lab Interpretation Abnormal (test code = 75117-5) [facility] gas, [id number] 04:36:04 Test Item Value Reference Range Interpretation Comments pH, Arterial (test code 7.57 7.35-7.45 H = 2744-1) pCO2, Arterial (test 32 See_Comment L [Autom ated message] code = 2019-02) The system [employer] generated this result transmit afshin reference range : 35 - 45 mm Hg. The reference range was not used to interpret this result as normal/abnormal . pO2, Arterial (test 95 See_Comment H [Automa afshin message] code = 2703-7) The system [employer] generated this result transmit afshin reference range [...] 21 Lab Interpretation Abnormal (test code = 01550-5) [facility], [id number] 04:36:04 Test Item Value Reference Range Interpretation Comments pH, Arterial (test code 7.57 7.35-7.45 H = 2744-1) pCO2, Arterial (test 32 See_Comment L [Autom ated message] code = 2019-8) The system [employer] generated this result transmit afshin reference range : 35 - 45 mm Hg. The reference range was not used to interpret this result as normal/abnormal . pO2, Arterial (test 95 See_Comment H [Automa afshin message] code = 2703-7) The system [employer] generated this result transmit afshin reference range [...] 21 Lab Interpretation Abnormal (test code = 40823-9) [facility] CenterBLOOD GAS, [id number] 04:36:04 Test Item Value Reference Range Interpretation [...] (BEAKER) (test code = 1819) 21.0 CALCIUM, [id number] 04:35:09 Test Item Value Reference Range Interpretation Comments CALCIUM IONIZED (BEAKER) (test 1.14 mmol/L 1.12-1.27 code = 698) PH, BLOOD (BEAKER) (test code = 7.57 1810) BLOOD [id number] 04:00:34 Test Item Value Reference Range Interpretation Comments CULTURE (BEAKER) (test No growth in 5 days code = 1095) BLOOD [id number] 04:00:34 Test Item Value Reference Range Interpretation Comments CULTURE (BEAKER) (test No growth in 5 days code = 1095) The specimen volume collected for this blood culture was below the optimum (10 mL per bottle or 20 mL total). Use of lower volumes may adversely affect recovery and/or detection times of some organisms.[id number] 22:55:23 Test Item Value Reference Range Interpretation Comments POTASSIUM (BEAKER) (test code = 3.5 meq/L 3.5-5.1 379) Multimedia Specialist ID - BSPOCT-GLUCOSE [id number] 22:35:33 Test Item Value Reference Range Interpretation Comments POC-GLUCOSE METER 147 mg/dL 70-110 H : TESTED A T [facility] 6720 (BEAKER) (test code = JOSE R Drummond [facility], 1538) [address]: Multimedia Specialist/Techni shantelle ID = [id number] for As Lorna medina PERIPHERAL BLOOD SMEAR - PATHOLOGIST [id number] 19:05:26 Test Item Value Reference Interpretation Comments Range RBC MORPHOLOGY See comment Hypochromic, macrocytic (BEAKER) (test anemia with m oderate code = 0545) anisopoikilocyt osis with abundant target cells, occasional cari ptocytes, occasional sphe rocytes, rare to occasio nal acanthocyte/ech inocytes and rare dacroc ytes. Rare schistocyt es present. Increa sed polychromasia. WBC MORPHOLOGY See comment Normal in num ayden. (BEAKER) (test Predominately comprised code = 3416) by granulocytes with unremarkable mo rphology. Lymphocytes wit h occasional reac tive and rare atypical f orms. PLT MORPHOLOGY No Clumping (BEAKER) (test code = 2848) PLT MORPHOLOGY No Satellitosis (BEAKER) (test code = 941226) PLT MORPHOLOGY See comment Decreased wit h normal (BEAKER) (test granular morp hology. code = 186425) Occasional la rge forms. HS-PATHOLOGIS Lebron Joel MD T-6112 (BEAKER) (electronic (test code = signature) 1170) [id number] 18:29:48 Test Item Value Reference Range Interpretation Comments MAGNESIUM (BEAKER) (test code = 2.0 mg/dL 1.6-2.6 627) Multimedia Specialist ID - [id number] 18:29:48 Test Item Value Reference Range Interpretation Comments POTASSIUM (BEAKER) (test code = 2.9 meq/L 3.5-5.1 L 379) Multimedia Specialist ID - BSPOCT-GLUCOSE [id number] 16:24:12 Test Item Value Reference Range Interpretation Comments POC-GLUCOSE METER 255 mg/dL 70-110 H : TESTED A T [facility] 6720 (BEAKER) (test code = [address] [place], 1538) [address]: Multimedia Specialist/Techni shantelle ID = [id number] for Sa alberto (contract)Tania Drug screen, urine, [id number] 11:05:31 Test Item Value Reference Range Interpretation Comments Scan Result (test code = See scanned report [id number]) SONIA (test code = SONIA) See scanned report [facility] Center[facility], urine, [id number] 11:05:31 Test Item Value Reference Range Interpretation Comments Scan Result (test code = See scanned report [id number]) SONIA (test code = SONIA) See scanned report [facility] CenterD[facility], urine, [id number] 11:05:31 Test Item Value Reference Range Interpretation Comments Scan Result (test code = See scanned report [id number]) SONIA (test code = SONIA) See scanned report [facility] CenterD[facility], urine, [id number] 11:05:31 Test Item Value Reference Range Interpretation Comments Scan Result (test code = See scanned report [id number]) SONIA (test code = SONIA) See scanned report [facility] CenterDrug [facility], urine, [id number] 11:05:31 Test Item Value Reference Range Interpretation Comments Scan Result (test code = See scanned report [id number]) SONIA (test code = SONIA) See scanned report [facility] CenterDRUG SCREEN, URINE, [id number] 11:05:31 Test Item Value Reference Range Interpretation Comments SCAN RESULT (test code = See scanned report [id number]) See scanned reportSPIN/CONCENTRATION [id number] 10:21:14 Test Item Value Reference Range Interpretation Comments Concentration charged (test code = Done 2657) [facility] [id number] 10:21:14 Test Item Value Reference Range Interpretation Comments Concentration charged (test code = Done 2657) [facility] [id number] 10:21:14 Test Item Value Reference Range Interpretation Comments Concentration charged (test code = Done 2657) [facility] [id number] 10:21:14 Test Item Value Reference Range Interpretation Comments Concentration charged (test code = Done 2657) [facility] [id number] 10:21:14 Test Item Value Reference Range Interpretation Comments Concentration charged (test code = Done 7) [facility] [id number] 10:21:14 Test Item Value Reference Range Interpretation Comments CONCENTRATION CHARGED (BEAKER) (test Done code = 2657) POCT-GLUCOSE [id number] 09:57:37 Test Item Value Reference Range Interpretation Comments POC-GLUCOSE METER 203 mg/dL 70-110 H : TESTED A T [facility] 6720 (BEAKER) (test code = JOSE R Drummond [facility], 1538) 285[address]: Multimedia Specialist/Techni shantelle ID = [id number] for Sa alberto (contract) Tania baron CALCIUM, [id number] 06:27:45 Test Item Value Reference Range Interpretation Comments CALCIUM IONIZED (BEAKER) (test 1.12 mmol/L 1.12-1.27 code = 698) PH, BLOOD (BEAKER) (test code = 7.55 1810) BLOOD GAS, [id number] 06:26:46 Test Item Value Reference Range Interpretation [...] (test code = 1819) 40.0 COMPREHENSIVE METABOLIC [id number] 05:21:14 Test Item Value Reference Range Interpretation [...] not appl icable for dialysis patien ts Multimedia Specialist ID - PIAYA LSpecimen moderately ictericRAD, CHEST, 1 VIEW, NON DEPT 2022-03-07 04:31:00Reason for exam:->intubatedShould this be performed at the bedside?->[facility] : 1985 Sex: FFINAL REPORT [...] Jagdeep Salguero MDReport Verified Date/Time: 03/07/2022 04:31:34 [id number] 04:29:31 Test Item Value Reference Range Interpretation Comments MAGNESIUM (BEAKER) (test code = 2.0 mg/dL 1.6-2.6 627) Multimedia Specialist ID Kt [place] [id number] 04:29:31 Test Item Value Reference Range Interpretation Comments PHOSPHORUS (BEAKER) (test code = 1.8 mg/dL 2.3-4.7 L 604) Multimedia Specialist ID Kt [place] LCBC (HEMOGRAM ONLY)2022-03-07 04:28:18 [...] 0-0 (test code = 413) LACTIC ACID, [id number] 04:18:05 Test Item Value Reference Range Interpretation Comments LACTATE BLOOD ARTERIAL (2) 1.4 mmol/L 0.5-2.2 (BEAKER) (test code = 2874) Multimedia Specialist ID - GEOVANNA LSpecimen moderately mudfdudEHITIVOISA5354-73-47 04:15:06 Test Item Value Reference Range Interpretation Comments FIBRINOGEN LEVEL (BEAKER) (test 147 mg/dl 225-434 L code = 658) PROTHROMBIN [id number] 04:10:01 Test Item Value Reference Range Interpretation Comments PROTIME (BEAKER) 23.5 seconds 11.9-14.2 H (test code = 759) INR (BEAKER) (test 2.16 See_Comment [Automat ed message] code = 370) The system Verified Person generated this result transmitted ref erence range: <=5.90. The reference range was not used to int erpret this result as normal/abnormal . RECOMMENDED COUMADIN/WARFARIN INR THERAPY RANGESSTANDARD DOSE: 2.0 - 3.0 Includes: PROPHYLAXIS for venous thrombosis, systemic embolization; TREATMENT for venous thrombosis and/or pulmonary embolus.HIGH RISK: Target INR is 2.5-3.5 for patients with mechanical heart valves.VANCOMYCIN LEVEL, [id number] 00:47:14 Test Item Value Reference Range Interpretation Comments VANCOMYCIN TROUGH (BEAKER) (test 10.6 ug/mL 10.0-20.0 code = 522) Multimedia Specialist ID - MITCHPOCT-GLUCOSE QNFFH9752-88-72 16:41:51 Test Item Value Reference Range Interpretation Comments POC-GLUCOSE METER 154 mg/dL 70-110 H : TESTED A T [facility] 6720 (BEAKER) (test code = [facility], 1538) 42162: Multimedia Specialist/Techni shantelle ID = [id number] for Mando gibson (contract) Kelly ana cristina POCT-GLUCOSE [id number] 12:35:45 Test Item Value Reference Range Interpretation Comments POC-GLUCOSE METER 174 mg/dL 70-110 H : TESTED A T [facility] 6720 (BEAKER) (test code = [facility], 1538) 90187: Multimedia Specialist/Techni shantelle ID = [id number] for ALBERTO ELMORE SHANNON BLOOD GAS, [id number] 12:30:55 Test Item Value Reference Range Interpretation [...] = 1819) 40.0 BRONCHIAL CULTURE + GRAM [id number] 08:46:49 Test Item Value Reference Range Interpretation Comments CULTURE (BEAKER) (test code See comment = 1095) GRAM STAIN RESULT (BEAKER) No WBCs (test code = 1123) GRAM STAIN RESULT (BEAKER) No organisms seen (test code = 85606) <1+ YeastBRONCHIAL CULTURE + GRAM [id number] 08:46:16 Test Item Value Reference Range Interpretation Comments CULTURE (BEAKER) (test code No growth = 1095) GRAM STAIN RESULT (BEAKER) <1+ WBCs (test code = 1123) GRAM STAIN RESULT (BEAKER) No organisms seen (test code = 48246) BLOOD GAS, [id number] 05:26:10 Test Item Value Reference Range Interpretation [...] (test code = 1819) 40.0 OXYGEN SATURATION, [id number] 05:22:52 Test Item Value Reference Range Interpretation Comments O2 SATURATION (MEASURED) (BEAKER) 88.7 % (test code = 1455) [id number] 05:17:50 Test Item Value Reference Range Interpretation Comments PHOSPHORUS (BEAKER) (test code = 1.4 mg/dL 2.3-4.7 LL 604) Multimedia Specialist ID - PIAYA LCOMPREHENSIVE METABOLIC [id number] 05:11:10 Test Item Value Reference Range Interpretation [...] not appl icable for dialysis patien ts Multimedia Specialist SHERMAN Kt Rodríguez moderately [id number] 05:11:09 Test Item Value Reference Range Interpretation Comments MAGNESIUM (BEAKER) (test code = 2.3 mg/dL 1.6-2.6 627) Multimedia Specialist ID Kt [place] LCALCIUM, [id number] 04:51:39 Test Item Value Reference Range Interpretation Comments CALCIUM IONIZED (BEAKER) (test 1.13 mmol/L 1.12-1.27 code = 698) PH, BLOOD (BEAKER) (test code = 7.50 1810) [id number] 04:33:13 Test Item Value Reference Range Interpretation Comments FIBRINOGEN LEVEL (BEAKER) (test 161 mg/dl 225-434 L code = 658) PROTHROMBIN TIME/[id number] 04:32:15 Test Item Value Reference Range Interpretation Comments PROTIME (BEAKER) 21.8 seconds 11.9-14.2 H (test code = 759) INR (BEAKER) (test 2.04 See_Comment [Automat ed message] code = 370) The system Verified Person generated this result transmitted ref erence range: <=5.90. The reference range was not used to int erpret this result as normal/abnormal . RECOMMENDED COUMADIN/WARFARIN INR THERAPY RANGESSTANDARD DOSE: 2.0 - 3.0 Includes: PROPHYLAXIS for venous thrombosis, systemic embolization; TREATMENT for venous thrombosis and/or pulmonary embolus.HIGH RISK: Target INR is 2.5-3.5 for patients with mechanical heart valves.LACTIC ACID, [id number] 04:28:57 Test Item Value Reference Range Interpretation Comments LACTATE BLOOD ARTERIAL (2) 1.4 mmol/L 0.5-2.2 (BEAKER) (test code = 2874) Multimedia Specialist ID - GEOVANNA Rodríguez moderately ictericCBC (HEMOGRAM [...] = 413) RAD, CHEST, 1 VIEW, NON [id number] 03:08:00Reason for exam:- >intubatedShould this be performed at the bedside?->Yes [facility] 1985 Sex: FFINAL REPORT [...] Salguero MDReport Verified Date/Time: 03/06/2022 03:08:02 POCT-GLUCOSE [id number] 01:21:32 Test Item Value Reference Range Interpretation Comments POC-GLUCOSE METER 283 mg/dL 70-110 H : TESTED A T [facility] 6720 (BEAKER) (test code = [facility] [place], 1538) 78[address]: Multimedia Specialist/Techni shantelle ID = [id number] for Mohit Guerra MR, ABDOMEN, [id number] 21:25:00Unlisted Reason for Exam - Click Yes and Enter Reason Below->Yes Unlisted Reason for Exam->CIRRHOSIS/Pre liver transplant EvalAD[facility]A COLLAZO : 1985 Sex: FFINAL REPORT [...] Christopher Willardeport Verified Date/Time: 03/05/2022 21:25:37 POCT-GLUCOSE [id number] 20:09:52 Test Item Value Reference Range Interpretation Comments POC-GLUCOSE METER 228 mg/dL 70-110 H : TESTED A T [facility] 6720 (BEAKER) (test code = [facility], 1538) 29612: Multimedia Specialist/Techni shantelle ID = [id number] for Mohit Guerra POCT-GLUCOSE [id number] 18:30:46 Test Item Value Reference Range Interpretation Comments POC-GLUCOSE METER 246 mg/dL 70-110 H : TESTED A T [facility] 6720 (BEAKER) (test code = [facility] [address] [facility], 1538) 745[address]: Multimedia Specialist/Techni shantelle ID = [id number] for MATTHEW KENDALL BLOOD GAS, [id number] 15:49:08 Test Item Value Reference Range Interpretation [...] (test code = 1819) 50.0 BLOOD GAS, [id number] 14:54:46 Test Item Value Reference Range Interpretation [...] (BEAKER) (test code = 1819) 60.0 POCT-GLUCOSE [id number] 12:55:41 Test Item Value Reference Range Interpretation Comments POC-GLUCOSE METER 206 mg/dL 70-110 H : TESTED A T [facility] 6720 (BEAKER) (test code = [facility] [place], 1538) [address]: Multimedia Specialist/Techni shantelle ID = [id number] for BE RNABE, MATTHEW RAD, CHEST, 1 VIEW, NON [id number] 12:38:00Reason for exam:->PNAShould this be performed at the bedside?->Yes [facility] : 1985 Sex: FFINAL REPORT [...] Natanael Starkey MDReport Verified Date/Time: 03/05/2022 12:38:59 [id number] 06:44:03 Test Item Value Reference Range Interpretation Comments PHOSPHORUS (BEAKER) (test code = 1.9 mg/dL 2.3-4.7 L 604) Multimedia Specialist ID - DREAD [facility] CITYREHENSIVE METABOLIC [id number] 06:44:03 Test Item Value Reference Range Interpretation [...] (test code = 347) EGFR (BEAKER) 130 Interpretati on of eGFR (test code = 1092) mL/min/1.73 [...] not appl icable for dialysis patien ts Multimedia Specialist ID - DREAD MSpecimen markedly gdeyxqcEGYWXJMDI5024-04-04 06:44:02 Test Item Value Reference Range Interpretation Comments MAGNESIUM (BEAKER) (test code = 2.4 mg/dL 1.6-2.6 627) Multimedia Specialist ID - DREAD MLACTIC ACID, [id number] 06:23:30 Test Item Value Reference Range Interpretation Comments LACTATE BLOOD ARTERIAL (2) 1.1 mmol/L 0.5-2.2 (BEAKER) (test code = 2874) Multimedia Specialist ID - DREAD MSpecimen markedly gifogvdNFVEBSUGGD0851-42-62 06:20:31 Test Item Value Reference Range Interpretation Comments FIBRINOGEN LEVEL (BEAKER) (test 192 mg/dl 225-434 L code = 658) PROTHROMBIN [id number] 06:20:08 Test Item Value Reference Range Interpretation Comments PROTIME (BEAKER) 24.1 seconds 11.9-14.2 H (test code = 759) INR (BEAKER) (test 2.24 See_Comment [Automat ed message] code = 370) The system Verified Person generated this result transmitted ref erence range: [...] WBC 0-0 (test code = 413) POCT-GLUCOSE [id number] 05:58:51 Test Item Value Reference Range Interpretation Comments POC-GLUCOSE METER 138 mg/dL 70-110 H : TESTED A T [facility] 6720 (BEAKER) (test code = [facility] [place], 1538) [address]: Multimedia Specialist/Techni shantelle ID = [id number] for Mohit Guerra BLOOD GAS, [id number] 05:22:09 Test Item Value Reference Range Interpretation [...] (BEAKER) (test code = 1819) 30.0 CALCIUM, [id number] 05:22:09 Test Item Value Reference Range Interpretation Comments CALCIUM IONIZED (BEAKER) (test 1.10 mmol/L 1.12-1.27 L code = 698) PH, BLOOD (BEAKER) (test code = 7.50 1810) OXYGEN SATURATION, [id number] 05:16:58 Test Item Value Reference Range Interpretation Comments O2 SATURATION (MEASURED) (BEAKER) 83.0 % (test code = 1455) POCT-GLUCOSE [id number] 23:56:14 Test Item Value Reference Range Interpretation Comments POC-GLUCOSE METER 151 mg/dL 70-110 H : TESTED A T [facility] 6720 (BEAKER) (test code = [facility] [place], 1538) 85[address]: Multimedia Specialist/Techni shantelle ID = [id number] for Mohit Guerra Prepare [id number] 23:54:00 Test Item Value Reference Range Interpretation Comments Unit ABO (test code = O Pos 2453096) UNIT NUMBER (test code = [id number] 934-0) Status (test code = 1552199) [facility] Product (test code CRYOPRECIPITATE = 2263) PRODUCT CODE (test code = D4290H34 933-2) [facility] [id number] 23:54:00 Test Item Value Reference Range Interpretation Comments Unit ABO (test code = O Pos 3173558) UNIT NUMBER (test code = [id number] 934-0) Status (test code = 3695680) [facility]IN[facility]ALT Blood Bank Product (test code CRYOPRECIPITATE = 2263) PRODUCT CODE (test code = L8896Y14 933-2) [facility] CenterPrep[facility] [id number] 23:54:00 Test Item Value Reference Range Interpretation Comments Unit ABO (test code = O Pos 0640908) UNIT NUMBER (test code = [id number] 934-0) Status (test code = 0935103) TX_TIMEINCHART Blood Bank Product (test code CRYOPRECIPITATE = 2263) PRODUCT CODE (test code = K3185K74 933-2) [facility] CenterPrepar [id number] 23:54:00 Test Item Value Reference Range Interpretation Comments Unit ABO (test code = O Pos 1025936) UNIT NUMBER (test code = [id number] 934-0) Status (test code = 1338100) [facility]IN[facility] Blood Bank Product (test code CRYOPRECIPITATE = 2263) PRODUCT CODE (test code = V8484N90 933-2) [facility] CenterPregood [facility] qhaakgaqwbdvipb2771-04-75 23:54:00 Test Item Value Reference Range Interpretation Comments Unit ABO (test code = O Pos 4314348) UNIT NUMBER (test code = [id number] 934-0) Status (test code = 5847914) TX_TIMEINCHART Blood Bank Product (test code CRYOPRECIPITATE = 2263) PRODUCT CODE (test code = E0629O29 933-2) [facility] CenterPOCT-GLUCOSE [id number] 18:09:15 Test Item Value Reference Range Interpretation Comments POC-GLUCOSE METER 112 mg/dL 70-110 H : TESTED A T [facility] 6720 (BEAKER) (test code = [facility] [place], 1538) [address]: Multimedia Specialist/Techni shantelle ID = [id number] for Tommy leleeemohinder CaponeSrivastavaCher banks CORTISOL,60 [id number] 16:58:18 Test Item Value Reference Range Interpretation [...] Pharmacy Policy and Procedure Section on The Source.Multimedia Specialist ID - BSCORTISOL,30 [id number] 16:08:22 Test Item Value Reference Range Interpretation [...] Pharmacy Policy and Procedure Section on The Source.Multimedia Specialist ID - ADMINPOCT-GLUCOSE METER 2022-03-04 15:14:11 Test Item Value Reference Range Interpretation Comments POC-GLUCOSE METER 109 mg/dL 70-110 : TESTED Daniela Villafuerte [facility] 6720 (BEAKER) (test code = [facility] [place], 1538) 30[address]: Multimedia Specialist/Techni shantelle ID = [id number] for SANDRINE NUÑEZ OXYGEN SATURATION, [id number] 15:07:58 Test Item Value Reference Range Interpretation Comments O2 SATURATION (MEASURED) (BEAKER) 69.4 % (test code = 1455) CORTISOL,[id number] 13:25:14 Test Item Value Reference Range Interpretation [...] Pharmacy Policy and Procedure Section on The Source.Multimedia Specialist ID - DREAD MCarotid doppler hyhqdrcur5996-21-22 13:08:27Ejection FractionSLEH ECHO HEARTLAB [facility]Carot[facility] doppler eijvzreut8369-81-26 13:08:27Ejection FractionSLEH ECHO HEARTLAB MKCK[facility]ON [facility] lvonwjlau5742-96-22 13:08:27Ejection FractionSLEH ECHO HEARTLAB MKCKESSON [facility]Car[facility] do[facility] wsowcawdl7571-31-11 13:08:27Ejection FractionSLEH ECHO HEARTLAB MKCKESSON [facility]Car[facility] do[facility] zrnqnaelg8051-10-14 13:08:27Ejection FractionSLEH ECHO HEARTLAB MKAURORA HOSPITALON [facility]ClovisVANCOMYCIN LEVEL, TROUGH 2022-03-04 13:01:29 Test Item Value Reference Range Interpretation Comments VANCOMYCIN TROUGH (BEAKER) (test 14.8 ug/mL 10.0-20.0 code = 522) Multimedia Specialist ID - DREAD ERAMWMDW2945-74-65 12:58:03 Test Item Value Reference Range Interpretation Comments AMMONIA (BEAKER) (test code = 348) 70 mol/L 18-72 Multimedia Specialist ID - DREAD M(MANUAL DIFFERENTIAL)2022-03-04 12:57:10 Test [...] few 480) RAD, CHEST, 1 VIEW, NON [id number] 12:29:00Reason for exam:- >pneumoniaShould this be performed at the bedside?->Yes [facility] 1985 Sex: FFINAL [...] Verified Date/Time: 03/04/2022 12:29:56 ANA TITER AND [id number] 12:05:29 Test Item Value Reference Range Interpretation Comments EMILIANO TITER (BEAKER) (test code = :160 1541) EMILIANO PATTERN (BEAKER) (test code = Homogeneous 1781) ANTI-NUCLEAR ANTIBODY (EMILIANO)2022-03-04 12:05:19 Test Item Value Reference Range Interpretation Comments ANTI-NUCLEAR ANTIBODY (EMILIANO) (BEAKER) Positive Negative A (test code = 418) Test performed by IFA method.SPIN/CONCENTRATION [id number] 11:30:22 Test Item Value Reference Range Interpretation Comments CONCENTRATION CHARGED (BEAKER) (test Done code = 2657) SPIN/CONCENTRATION [id number] 11:30:03 Test Item Value Reference Range Interpretation Comments CONCENTRATION CHARGED (BEAKER) (test Done code = 2657) VITAMIN [id number] 11:25:15 Test Item Value Reference Range Interpretation Comments VITAMIN B12 (BEAKER) (test code = > pg/mL 213-816 H 774) Multimedia Specialist ID - DREAD MUrinalysis w/Microscopic + Reflex to Wcuegeu2571-72-60 11:11:04 Test Item Value Reference Range Interpretation Comments Color, UA (test code Dark Yellow = 5778-6) Clarity, UA (test Hazy code = 5767-9) Specific Tomball, UA 1.024 1.001-1.035 (test code = 5811-5) pH, UA (test code = 7.0 5.0-8.0 5803-2) Protein, UA (test 10 mg/dL Negative A code = 34752-6) Glucose, UA (test Negative Negative code = 365) Ketones, UA (test 10 mg/dL Negative A code = 2514-8) Bilirubin, UA (test Positive Negative A code = 10375-3) Blood, UA (test code Negative Negative = 59545-5) Nitrite, UA (test Negative Negative code = 5802-4) Leukocytes, UA (test Negative Negative code = 5799-2) Urobilinogen, UA 2.0 mg/dL 0.2-1.0 H (test code = 38379-2) RBC, UA (test code = 1 See_Comment [Autom ated 61785-0) message] The system which generated this result [...] Bacteria, UA (test None Seen code = 09722-0) Mucus (test code = Many 8247-9) Squam Epithel, UA <1 See_Comment [Automate d (test code = 91133-4) messag e] The system which generated this result transmit afshin reference range : /HPF. The reference range was not used to interpret this result as normal/abnormal . Crystals, Urine (test None Seen code = 47009-5) Specimen Source (test code = 2795) SONIA (test code = SONIA) Multimedia Specialist ID - [auto]Multimedia Specialist ID - tech Lab Interpretation Abnormal (test code = 28470-5) [facility] CenterUrinalysis w/Microscopic + Reflex to Culture 2022-03-04 11:11:04 Test Item Value Reference Range Interpretation Comments Color, UA (test code Dark Yellow = 5778-6) Clarity, UA (test Hazy code = 5767-9) Specific Tomball, UA 1.024 1.001-1.035 (test code = 5811-5) pH, UA (test code = 7.0 5.0-8.0 5803-2) Protein, UA (test 10 mg/dL Negative A code = 52082-7) Glucose, UA (test Negative Negative code = 365) Ketones, UA (test 10 mg/dL Negative A code = 2514-8) Bilirubin, UA (test Positive Negative A code = 62583-8) Blood, UA (test code Negative Negative = 08440-9) Nitrite, UA (test Negative Negative code = 5802-4) Leukocytes, UA (test Negative Negative code = 5799-2) Urobilinogen, UA 2.0 mg/dL 0.2-1.0 H (test code = 98243-0) RBC, UA (test code = 1 See_Comment [Autom ated 83313-8) message] The system which generated this result [...] Bacteria, UA (test None Seen code = 75223-5) Mucus (test code = Many 8247-9) Squam Epithel, UA <1 See_Comment [Automate d (test code = 70524-8) messag e] The system which generated this result transmit afshin reference range : /HPF. The reference range was not used to interpret this result as normal/abnormal . Crystals, Urine (test None Seen code = 03423-0) Specimen Source (test code = 2795) SONIA (test code = SONIA) Multimedia Specialist ID - [auto]Multimedia Specialist ID - tech Lab Interpretation Abnormal (test code = 84775-1) [facility] CenterUrinal[facility] w/Microscopic + Reflex to Culture 2022-03-04 11:11:04 Test Item Value Reference Range Interpretation Comments Color, UA (test code Dark Yellow = 5778-6) Clarity, UA (test Hazy code = 5767-9) Specific Tomball, UA 1.024 1.001-1.035 (test code = 5811-5) pH, UA (test code = 7.0 5.0-8.0 5803-2) Protein, UA (test 10 mg/dL Negative A code = 88610-3) Glucose, UA (test Negative Negative code = 365) Ketones, UA (test 10 mg/dL Negative A code = 2514-8) Bilirubin, UA (test Positive Negative A code = 54686-2) Blood, UA (test code Negative Negative = 00290-0) Nitrite, UA (test Negative Negative code = 5802-4) Leukocytes, UA (test Negative Negative code = 5799-2) Urobilinogen, UA 2.0 mg/dL 0.2-1.0 H (test code = 61838-7) RBC, UA (test code = 1 See_Comment [Autom ated 37535-2) message] The system which generated this result [...] Bacteria, UA (test None Seen code = 59427-5) Mucus (test code = Many 8247-9) Squam Epithel, UA <1 See_Comment [Automate d (test code = 76781-3) messag e] The system which generated this result transmit afshin reference range : /HPF. The reference range was not used to interpret this result as normal/abnormal . Crystals, Urine (test None Seen code = 53842-9) Specimen Source (test code = 2795) SOINA (test code = SONIA) Multimedia Specialist ID - [auto]Multimedia Specialist ID - tech Lab Interpretation Abnormal (test code = 17055-2) [facility] + Reflex to Culture 2022-03-04 11:11:04 Test Item Value Reference Range Interpretation Comments Color, UA (test code Dark Yellow = 5778-6) Clarity, UA (test Hazy code = 5767-9) Specific Tomball, UA 1.024 1.001-1.035 (test code = 5811-5) pH, UA (test code = 7.0 5.0-8.0 5803-2) Protein, UA (test 10 mg/dL Negative A code = 75795-8) Glucose, UA (test Negative Negative code = 365) Ketones, UA (test 10 mg/dL Negative A code = 2514-8) Bilirubin, UA (test Positive Negative A code = 48514-1) Blood, UA (test code Negative Negative = 99627-5) Nitrite, UA (test Negative Negative code = 5802-4) Leukocytes, UA (test Negative Negative code = 5799-2) Urobilinogen, UA 2.0 mg/dL 0.2-1.0 H (test code = 06125-6) RBC, UA (test code = 1 See_Comment [Autom ated 66867-1) message] The system which generated this result transmit afshni reference range : /HPF. The reference range was not used to interpret this result as normal/abnormal . WBC, UA (test code = 5 See_Comment [Autom ated 5821-4) message] The system which generated this result transmit afshin reference range : /HPF. The reference range was not used to interpret this result as normal/abnormal . Bacteria, UA (test None Seen code = 58178-7) Mucus (test code = Many 8247-9) Squam Epithel, UA <1 See_Comment [Automate d (test code = 67831-2) messag e] The system which generated this result transmit afshin reference range : /HPF. The reference range was not used to interpret this result as normal/abnormal . Crystals, Urine (test None Seen code = 34694-5) Specimen Source (test code = 2795) SONIA (test code = SONIA) Multimedia Specialist ID - [auto]Multimedia Specialist ID - tech Lab Interpretation Abnormal (test code = 98992-6) [facility]/Microscopic + Reflex to Culture 2022-03-04 11:11:04 Test Item Value Reference Range Interpretation Comments Color, UA (test code Dark Yellow = 5778-6) Clarity, UA (test Hazy code = 5767-9) Specific Tom[place], UA 1.024 1.001-1.035 (test code = 5811-5) pH, UA (test code = 7.0 5.0-8.0 5803-2) Protein, UA (test 10 mg/dL Negative A code = 40730-2) Glucose, UA (test Negative Negative code = 365) Ketones, UA (test 10 mg/dL Negative A code = 2514-8) Bilirubin, UA (test Positive Negative A code = 65206-4) Blood, UA (test code Negative Negative = 32771-2) Nitrite, UA (test Negative Negative code = 5802-4) Leukocytes, UA (test Negative Negative code = 5799-2) Urobilinogen, UA 2.0 mg/dL 0.2-1.0 H (test code = 06229-1) RBC, UA (test code = 1 See_Comment [Autom ated 63323-1) message] The system which generated this result [...] Bacteria, UA (test None Seen code = 88418-5) Mucus (test code = Many 8247-9) Squam Epithel, UA <1 See_Comment [Automate d (test code = 83078-5) messag e] The system which generated this result transmit afshin reference range : /HPF. The reference range was not used to interpret this result as normal/abnormal . Crystals, Urine (test None Seen code = 11366-2) Specimen Source (test code = 2795) SONIA (test code = SONIA) Multimedia Specialist ID - [auto]Multimedia Specialist ID - tech Lab Interpretation Abnormal (test code = 98328-3) [facility] CenterUR[facility]IS W/ REFLEX URINE [id number] 11:11:04 Test Item Value Reference Range Interpretation [...] = 1521) SOURCE(BEAKER) (test code = 2795) Multimedia Specialist ID - [auto]Multimedia Specialist ID - techEBV ANTIBODY, [id number] 10:10:17 Test Item Value Reference Range Interpretation Comments MARQUIS ALVAREZ VIRAL CAPSID Positive Negative, Equivocal A ANTIGEN IGG (BEAKER) (test code = 3415) Marquis Alvarez Viral Capsid Antigen IgG Result Interpretation: </= 0.8 Al Negative 0.9-1.0 Al Equivocal >/= 1.1 Al PositiveEBV ANTIBODY, [id number] 10:10:17 Test Item Value Reference Range Interpretation [...] Positive - Presumed immune VARICELLA ZOSTER ANTIBODY, [id number] 10:10:16 Test Item Value Reference Range Interpretation Comments VARICELLA ZOSTER IGG (AL) (BEAKER) 4.4 (test code = 3197) VARICELLA ZOSTER RESULT INTERPRETATIONS: <=0.8 Al Nonreactive: Presumed non- immune to VZV 0.9-1.0Al Equivocal >=1.1 Al Reactive: Presumed immune to VZV CYTOMEGALOVIRUS ANTIBODY, [id number] 10:10:16 Test Item Value Reference Range Interpretation Comments CYTOMEGALOVIRUS, IGG (BEAKER) Positive Negative, Equivocal A (test code = 3429) CMV IgG Result Interpretation: </= 0.8 Al Negative 0.9-1.0 Al Equivocal >/=1.1 Al [id number] 09:43:54 Test Item Value Reference Range Interpretation Comments T3 TOTAL (BEAKER) (test code = 0.33 ng/mL 0.60-1.81 L 656) Multimedia Specialist ID - DSENSONRETICULOCYTE JRHLK0015-59-83 09:19:21 Test Item Value Reference Range Interpretation Comments RETICULOCYTE COUNT PCT (BEAKER) (test 6.2 % 0.5-1.7 H code = 575) Multimedia Specialist ID - 6000POCT-GLUCOSE LVQYP2730-59-60 06:53:00 Test Item Value Reference Range Interpretation Comments POC-GLUCOSE METER 98 mg/dL 70-110 : Notified RN/MD: TESTED (BEAKER) (test code = AT [facility] [address] [facility] 1531) [place], [address]: Multimedia Specialist/Techni shantelle ID = [id number] for Emilie lu (contract), [facility] COMPREHENSIVE METABOLIC [id number] 06:16:07 Test Item Value Reference Range Interpretation [...] not appl icable for dialysis patien ts Multimedia Specialist ID - DREAD MSpecimen moderately [id number] 06:11:59 Test Item Value Reference Range Interpretation Comments PHOSPHORUS (BEAKER) (test code = 2.1 mg/dL 2.3-4.7 L 604) Multimedia Specialist ID - DREAD [id number] 06:11:58 Test Item Value Reference Range Interpretation Comments MAGNESIUM (BEAKER) (test code = 2.1 mg/dL 1.6-2.6 627) Multimedia Specialist ID - DREAD MCBC (HEMOGRAM ONLY)2022-03-04 05:02:41 [...] /100 WBC 0-0 (test code = 413) [id number] 05:00:33 Test Item Value Reference Range Interpretation Comments FIBRINOGEN LEVEL (BEAKER) (test 162 mg/dl 225-434 L code = 658) BLOOD GAS, [id number] 04:18:46 Test Item Value Reference Range Interpretation [...] (BEAKER) (test code = 1819) 40.0 CALCIUM, [id number] 04:18:45 Test Item Value Reference Range Interpretation Comments CALCIUM IONIZED (BEAKER) (test 1.10 mmol/L 1.12-1.27 L code = 698) PH, BLOOD (BEAKER) (test code = 7.51 1810) [id number] 02:10:38 Test Item Value Reference Range Interpretation Comments CORTISOL, TOTAL (BEAKER) (test 12.7 ug/dL 3.7-19.4 code = 2755) Multimedia Specialist ID - GEOVANNA LPOCT-GLUCOSE [id number] 01:05:43 Test Item Value Reference Range Interpretation Comments POC-GLUCOSE METER 105 mg/dL 70-110 : Notified RN/MD: (BEAKER) (test code = TESTED AT [facility] 7811 7499) [facility], [address]: Multimedia Specialist/Techni shantelle ID = [id number] for Remi gutierrez (contract), Cristobal everett [id number] 22:42:24 Test Item Value Reference Range Interpretation Comments PHOSPHORUS (BEAKER) (test code = 3.6 mg/dL 2.3-4.7 604) Multimedia Specialist ID - GEOVANNA LBASIC METABOLIC [id number] 22:42:24 Test Item Value Reference Range Interpretation [...] (test code = 697) EGFR (BEAKER) 125 Interpretati on of eGFR (test code = mL/min/1.73 values [...] not appl icable for dialysis patien ts Multimedia Specialist ID - GEOVANNA LAWSONpecimealyson moderately ictericLACTIC ACID, [id number] 22:25:43 Test Item Value Reference Range Interpretation Comments LACTATE BLOOD VENOUS 1.56 mmol/L 0.50-2.20 Specime n slightly (2) (BEAKER) (test hemolyzed code = 0540) Multimedia Specialist ID - GEOVANNA LAWSONpecimen moderately ictericCBC (HEMOGRAM ONLY)2022-03-03 22:19:17 Test Item [...] WBC 0-0 (test code = 413) CALCIUM, [id number] 22:14:28 Test Item Value Reference Range Interpretation Comments CALCIUM IONIZED (BEAKER) (test 1.09 mmol/L 1.12-1.27 L code = 698) PH, BLOOD (BEAKER) (test code = 7.43 1810) POCT-GLUCOSE [id number] 20:10:01 Test Item Value Reference Range Interpretation Comments POC-GLUCOSE METER 112 mg/dL 70-110 H : Notified RN/MD: (HENRY) (test code = TESTED AT [facility] 6720 1538) [place] [facility], [address]: Multimedia Specialist/Techni shantelle ID = [id number] for Remi gutierrez (contract)Cristobal POCT-GLUCOSE [id number] 18:35:29 Test Item Value Reference Range Interpretation Comments POC-GLUCOSE METER 94 mg/dL 70-110 : TESTED A T [facility] 67 ([facility]) (test code = JOSE R Drummond [facility], 1538) [address]: Multimedia Specialist/Techni shantelle ID = [id number] for SHANNON RESTREPO ECHO W CONTRAST & [id number] 16:56:02Ejection FractionSLEH ECHO HEARTLAB [facility] W CONTRAST & DOPPLER 2022-03-03 16:56:02Ejection FractionSLEH ECHO HEARTLAB [facility] W CONTRAST & [id number] 16:56:02Ejection FractionSLEH [facility] & [id number] 16:56:02Ejection FractionSLEH ECHO [facility]ARTLAB [facility] D[facility] 2022-03-03 16:56:02Ejection FractionSLE ECHO HEARTLAB [facility] HospitalCRYPTOCOCCAL [id number] 16:05:24 Test Item Value Reference Range Interpretation Comments CRYPTOCOCCAL ANTIGEN, SERUM Negative Negative, Interference ([facility]) (test code = 1828) [id number] 16:04:51 Test Item Value Reference Range Interpretation Comments RPR SCREEN ([facility]) (test code = Nonreactive Nonreactive 420) [id number] 15:42:44 Test Item Value Reference Range Interpretation Comments T4 TOTAL ([facility]) (test code = 895) 3.9 ug/dL 4.9-11.7 L Multimedia Specialist ID - JEFFERSON [id number] 15:13:31 Test Item Value Reference Range Interpretation Comments FERRITIN (HENRY) (test code = 481.60 ng/mL 5.00-275.00 H 361) Multimedia Specialist ID - JEFFERSON HILLIARD/S, ABDOMINAL, [id number] 15:00:00Reason for exam:->evaluation for cirrhosis; doppler to evaluate for thrombus/budd chiariShould this be performed at the bedside?->Yes [facility] 1985 Sex: [...] MDReport Verified Date/Time: 03/03/2022 15:00:50 U/S, DUPLEX, [id number] 15:00:00Reason for exam:->evaluation for cirrhosis; doppler to evaluate for thrombus /budd chiari [facility] 1985 Sex: [...] volume upper abdominal ascites Signed: Alfonso Newton [facility]ENTER[facility]ort Verified Date/Time: 03/03/2022 15:00:50 HEPATITIS B SURFACE [id number] 14:34:33 Test Item Value Reference Range Interpretation Comments HEPATITIS B SURFACE ANTIBODY < mIU/mL <8.0 (BEAKER) (test code = 647) Multimedia Specialist ID - PIDEE LHEPATITIS B CORE ANTIBODY, [id number] 14:34:18 Test Item Value Reference Range Interpretation Comments HEPATITIS B CORE TOTAL ANTIBODY Nonreactive Nonreactive (BEAKER) (test code = 497) Multimedia Specialist ID - PIAYA LCARCINOEMBRYONIC ANTIGEN (CEA)2022-03-03 14:34:17 Test Item Value Reference Range Interpretation Comments CARCINOEMBRYONIC ANTIGEN (BEAKER) 22.0 ng/mL 0.0-5.0 H (test code = 685) Multimedia Specialist ID - PIDEE LALPHA FETOPROTEIN (AFP), TUMOR [id number] 14:34:17 Test Item Value Reference Range Interpretation Comments ALPHA-FETOPROTEIN (BEAKER) (test 2.0 ng/mL <10.0 code = 1094) Multimedia Specialist ID - PIAYA LVITAMIN D, [id number] 14:34:06 Test Item Value Reference Range Interpretation Comments VITAMIN D 25-OH (BEAKER) (test code 4.1 ng/mL 6.6-49.9 L = 2764) Effective 04/26/2017: Reference Range ChangeNew: 6.6-49.9 ng/mL Previous: 13.0- 47.8 ng/mLRecommendedVitamin D Target Range: 30.0-40.0 ng/mLOperator ID - GEOVANNA [id number] 14:33:40 Test Item Value Reference Range Interpretation Comments THYROID STIMULATING HORMONE 0.247 uIU/mL 0.350-4.940 L (BEAKER) (test code = 772) Multimedia Specialist ID - GEOVANNA LHIV-1 ANTIGEN WITH HIV-1/2 [id number] 14:32:21 Test Item Value Reference Range Interpretation Comments HIV-1 ANTIGEN WITH HIV 1\\T\\2 Nonreactive Nonreactive ANTIBODY (2) (BEAKER) (test code = 2586) Multimedia Specialist ID - GEOVANNA [id number] 14:20:49 Test Item Value Reference Range Interpretation Comments PHOSPHORUS (BEAKER) (test code = 1.4 mg/dL 2.3-4.7 LL 604) Multimedia Specialist ID - GEOVANNA HAILEY, TIBC, % SAT. (WITHOUT FERRITIN)2022-03-03 14:20:38 Test Item Value Reference Range Interpretation Comments IRON (BEAKER) (test code = 547) 38.0 ug/dL 40.0-160.0 L TOTAL IRON BINDING CAPACITY 56 ug/dL 250-450 L (BEAKER) (test code = 769) IRON % SATURATION (2) (BEAKER) 68 % 20-55 H (test code = 2590) Multimedia Specialist ID - GEOVANNA [id number] 14:20:37 Test Item Value Reference Range Interpretation Comments TRANSFERRIN (BEAKER) (test code = 45 mg/dL 174-382 L 541) Multimedia Specialist ID - GEOVANNA LSpecimen moderately egqraxeCKTWU-8-[id number] 14:20:15 Test Item Value Reference Range Interpretation Comments ALPHA-1 ANTITRYPSIN 137.60 mg/dL 90.00-200.00 Specimen slightly (BEAKER) (test code = hemoly zed 502) Multimedia Specialist ID - GEOVANNA [id number] 14:18:19 Test Item Value Reference Range Interpretation Comments ETHANOL (BEAKER) < mg/dL See_Comment [Automated message] The (test code = 400) system whi [employer] generated this result tra nsmitted reference range : <=10. The reference r yvonne was not used to int erpret this result as normal/abnormal . Multimedia Specialist ID - GEOVANNA LBILIRUBIN, [id number] 14:18:18 Test Item Value Reference Range Interpretation Comments BILIRUBIN DIRECT (BEAKER) (test 5.7 mg/dL 0.1-0.5 H code = 706) Multimedia Specialist ID - GEOVANNA LGAMMA GLUTAMYL TRANSFERASE (GGT)2022-03-03 14:18:18 Test Item Value Reference Range Interpretation Comments GAMMA GLUTAMYL TRANSFERASE (BEAKER) 86 U/L 9-64 H (test code = 364) Multimedia Specialist ID - GEOVANNA LSpecimen moderately ictericCOMPREHENSIVE [...] not appl icable for dialysis patien ts Multimedia Specialist ID - GEOVANNA LAWSONpecimen moderately ictericLIPID [id number] 14:18:17 Test Item Value Reference Range Interpretation [...] Borderline 130-159 High 160-189 Very High >=190 Multimedia Specialist ID - GEOVANNA LSpecimen moderately [id number] 14:18:16 Test Item Value Reference Range Interpretation Comments MAGNESIUM (BEAKER) (test code = 2.0 mg/dL 1.6-2.6 627) Multimedia Specialist ID - GEOVANNA LURIC [id number] 14:18:16 Test Item Value Reference Range Interpretation Comments URIC ACID (BEAKER) (test code = 3.3 mg/dL 2.6-7.2 773) Multimedia Specialist ID - GEOVANNA LSpecimen moderately ictericBLOOD GAS, [id number] 14:05:05 Test Item Value Reference Range Interpretation [...] 1819) 40.0 CBC W/PLT COUNT & AUTO [id number] 13:56:03 Test Item Value Reference Range Interpretation [...] PERCENT (BEAKER) (test code = 2801) POCT-GLUCOSE [id number] 13:52:04 Test Item Value Reference Range Interpretation Comments POC-GLUCOSE METER 131 mg/dL 70-110 H : TESTED A T [facility] 6720 (BEAKER) (test code = [employer] [facility], 153) [address]: Multimedia Specialist/Techni shantelle ID = [id number] for SHANNON MAYER CALCIUM, [id number] 13:47:51 Test Item Value Reference Range Interpretation Comments CALCIUM IONIZED (BEAKER) (test 1.05 mmol/L 1.12-1.27 L code = 698) PH, BLOOD (BEAKER) (test code = 7.44 1810) POCT-GLUCOSE [id number] 13:25:22 Test Item Value Reference Range Interpretation Comments POC-GLUCOSE METER 51 mg/dL 70-110 L : TESTED A T [facility] 6720 (BEAKER) (test code = [employer] [facility], 153) [address]: Multimedia Specialist/Techni shantelle ID = [id number] for SHANNON RESTREPO Screen, [id number] 13:09:21 Test Item Value Reference Range Interpretation Comments Preg Test, Ur (test code = 2112-1) Negative Negative Lab Interpretation (test code = Normal 52909-6) [facility], [id number] 13:09:21 Test Item Value Reference Range Interpretation Comments Preg Test, Ur (test code = 2112-1) Negative Negative Lab Interpretation (test code = Normal 56244-9) [facility], [id number] 13:09:21 Test Item Value Reference Range Interpretation Comments Preg Test, Ur (test code = 2112-1) Negative Negative Lab Interpretation (test code = Normal 88934-2) [facility] CenterP[facility] Screen, [id number] 13:09:21 Test Item Value Reference Range Interpretation Comments Preg Test, Ur (test code = 2112-1) Negative Negative Lab Interpretation (test code = Normal 60592-7) [facility] CenterPre[facility] Screen, [id number] 13:09:21 Test Item Value Reference Range Interpretation Comments Preg Test, Ur (test code = 2112-1) Negative Negative Lab Interpretation (test code = Normal 51274-3) [facility] CenterPRE[facility] SCREEN, [id number] 13:09:21 Test Item Value Reference Range Interpretation Comments TEST URINE (BEAKER) (test Negative Negative code = 583) [id number] 13:06:45 Test Item Value Reference Range Interpretation Comments PARTIAL THROMBOPLASTIN TIME 36.2 seconds 22.5-36.0 H (BEAKER) (test code = 760) [id number] 11:15:14 Test Item Value Reference Range Interpretation Comments FIBRINOGEN LEVEL (BEAKER) (test code < mg/dl 225-434 LL = 658) PROTHROMBIN [id number] 11:02:07 Test Item Value Reference Range Interpretation Comments PROTIME (BEAKER) 29.6 seconds 11.9-14.2 H (test code = 759) INR (BEAKER) (test 3.03 See_Comment [Automat ed message] code = 370) The system Verified Person generated this result transmitted ref erence range: [...] 0.0 % 0.0-5.0 code = 1414) HEMOGLOBIN [id number] 09:44:25 Test Item Value Reference Range Interpretation [...] 5.7- 6.4% indicates increased risk for diabetes (prediabetes)."Multimedia Specialist ID - ADMOperator ID - ADMBLOOD GAS, [id number] 08:13:19 Test Item Value Reference Range Interpretation [...] FIO2 (BEAKER) (test code = 1819) 40.0 [id number] 03:56:19 Test Item Value Reference Range Interpretation Comments MAGNESIUM (BEAKER) (test code = 2.0 mg/dL 1.6-2.6 627) Multimedia Specialist ID - ADMINCOMPREHENSIVE METABOLIC [id number] 03:56:19 Test Item Value Reference Range Interpretation [...] not appl icable for dialysis patien ts Multimedia Specialist ID - ADMINSpecimen moderately ictericLACTIC ACID, [id number] 03:32:34 Test Item Value Reference Range Interpretation Comments LACTATE BLOOD VENOUS 1.99 mmol/L 0.50-2.20 Specime n slightly (2) (BEAKER) (test hemolyzed code = 2872) Multimedia Specialist ID - ADMINSpecimen moderately ictericRAD, CHEST, 1 VIEW, NON DEPT 2022-03-03 03:25:00Reason for exam:->verify ETT placementShould this be performed at the bedside?->Yes [facility] 1985 Sex: FFINAL [...] without acute osseous abnormality. Signed: Jagdeep Salguero Verified Date/Time: 03/03/2022 03:25:13 RAD, ABDOMEN/KUB, 1 VIEW [id number] 03:15:00Reason for exam:->verify [place] placementShould this be performed at the bedside?->Yes [facility] 1985 Sex: FFINAL REPORT Supine abdomen 03/03/2022. HISTORY: Dobbhoff tube placement. IMPRESSION: Dobbhoff feeding tube with the tip projecting over the mid to distal stomach. Signed: Christopher Willard Verified Date/Time: 03/03/2022 03:15:16 Electronically signed by: Jess WONG 03/03/2022 03:15 [id number] 03:07:49 Test Item Value Reference Range Interpretation [...] /100 WBC 0-0 (test code = 413) [id number] 03:02:45 Test Item Value Reference Range Interpretation Comments PARTIAL THROMBOPLASTIN TIME 40.9 seconds 22.5-36.0 H (BEAKER) (test code = 760) PROTHROMBIN [id number] 03:02:07 Test Item Value Reference Range Interpretation Comments PROTIME (BEAKER) 29.1 seconds 11.9-14.2 H (test code = 759) INR (BEAKER) (test 2.97 See_Comment [Automat ed message] code = 370) The system Verified Person generated this result transmitted ref erence range: <=5.90. The reference range was not used to int erpret this result as normal/abnormal . RECOMMENDED COUMADIN/WARFARIN INR THERAPY RANGESSTANDARD DOSE: 2.0 - 3.0 Includes: PROPHYLAXIS for venous thrombosis, systemic embolization; TREATMENT for venous thrombosis and/or pulmonary embolus.HIGH RISK: Target INR is 2.5-3.5 for patients with mechanical heart valves.Hepatitis A antibody, [id number] 02:22:40 Test Item Value Reference Range Interpretation Comments Hep A IgM (test code = Nonreactive Nonreactive 76436-0) SONIA (test code = SONIA) Multimedia Specialist ID - PIAYA L Lab Interpretation (test Normal code = 51515-3) [facility] CenterHepatitis A antibody, [id number] 02:22:40 Test Item Value Reference Range Interpretation Comments Hep A IgM (test code = Nonreactive Nonreactive 52484-5) SONIA (test code = SONIA) Multimedia Specialist ID - PIAYA L Lab Interpretation (test Normal code = 19848-1) [facility] CenterHeuofl [facility] peace hospitaltis A antibody, [id number] 02:22:40 Test Item Value Reference Range Interpretation Comments Hep A IgM (test code = Nonreactive Nonreactive 29886-8) SONIA (test code = SONIA) Multimedia Specialist ID - PIAYA L Lab Interpretation (test Normal code = 31074-7) [facility] CenterHeu[facility] hospitaltis A antibody, [id number] 02:22:40 Test Item Value Reference Range Interpretation Comments Hep A IgM (test code = Nonreactive Nonreactive 26406-2) SONIA (test code = SONIA) Multimedia Specialist ID - PIAYA L Lab Interpretation (test Normal code = 06091-4) [facility], [id number] 02:22:40 Test Item Value Reference Range Interpretation Comments Hep A IgM (test code = Nonreactive Nonreactive 24847-1) SONIA (test code = SONIA) Multimedia Specialist ID - PIAYA L Lab Interpretation (test Normal code = 93638-5) [facility] CenterHEPATITIS A ANTIBODY, [id number] 02:22:40 Test Item Value Reference Range Interpretation Comments HEPATITIS A IGM ANTIBODY (BEAKER) Nonreactive Nonreactive (test code = 498) Multimedia Specialist ID - PIAYA LHepatitis C [id number] 02:22:39 Test Item Value Reference Range Interpretation Comments Hepatitis C Ab (test Nonreactive Nonreactive code = 86274-9) SONIA (test code = SONIA) Multimedia Specialist ID - PIAYA L Lab Interpretation (test Normal code = 49702-9) [facility] CenterHepatitis C [id number] 02:22:39 Test Item Value Reference Range Interpretation Comments Hepatitis C Ab (test Nonreactive Nonreactive code = 05860-6) SONIA (test code = SONIA) Multimedia Specialist ID - PIAYA L Lab Interpretation (test Normal code = 26631-9) [facility] [id number] 02:22:39 Test Item Value Reference Range Interpretation Comments Hepatitis C Ab (test Nonreactive Nonreactive code = 40177-1) SONIA (test code = SONIA) Multimedia Specialist ID - PIAYA L Lab Interpretation (test Normal code = 30751-7) [facility] C [id number] 02:22:39 Test Item Value Reference Range Interpretation Comments Hepatitis C Ab (test Nonreactive Nonreactive code = 71183-3) SONIA (test code = SONIA) Multimedia Specialist ID - PIAYA L Lab Interpretation (test Normal code = 05111-6) [facility] C [id number] 02:22:39 Test Item Value Reference Range Interpretation Comments Hepatitis C Ab (test Nonreactive Nonreactive code = 29137-9) SONIA (test code = SONIA) Multimedia Specialist ID - PIAYA L Lab Interpretation (test Normal code = 48724-3) [facility] C [id number] 02:22:39 Test Item Value Reference Range Interpretation Comments HEPATITIS C ANTIBODY (BEAKER) Nonreactive Nonreactive (test code = 367) Multimedia Specialist ID - DELORISAYA LHepatitis B surface [id number] 02:22:34 Test Item Value Reference Range Interpretation Comments Hepatitis B surface Nonreactive Nonreactive antigen (test code = 5195-3) SONIA (test code = SONIA) Specimen is considered negative for HBsAg. Lab Interpretation (test Normal code = 59916-2) [facility] B core antibody, [id number] 02:22:34 Test Item Value Reference Range Interpretation Comments Hep B C IgM (test code = Nonreactive Nonreactive 71554-0) SONIA (test code = SONIA) Multimedia Specialist ID - PIAYA L Lab Interpretation (test Normal code = 15416-3) [facility] CenterHe[facility] hospitaltis B surface [id number] 02:22:34 Test Item Value Reference Range Interpretation Comments Hepatitis B surface Nonreactive Nonreactive antigen (test code = 5195-3) SONIA (test code = SONIA) Specimen is considered negative for HBsAg. Lab Interpretation (test Normal code = 29948-9) [facility] CenterHeu[facility] hospitaltis B core antibody, [id number] 02:22:34 Test Item Value Reference Range Interpretation Comments Hep B C IgM (test code = Nonreactive Nonreactive 75217-3) SONIA (test code = SONIA) Multimedia Specialist ID - PIAYA L Lab Interpretation (test Normal code = 56130-5) [facility] CenterHep[facility] B surface [id number] 02:22:34 Test Item Value Reference Range Interpretation Comments Hepatitis B surface Nonreactive Nonreactive antigen (test code = 5195-3) SONIA (test code = SONIA) Specimen is considered negative for HBsAg. Lab Interpretation (test Normal code = 75328-5) [facility]He[facility] hospitaltis B core antibody, [id number] 02:22:34 Test Item Value Reference Range Interpretation Comments Hep B C IgM (test code = Nonreactive Nonreactive 46332-7) SONIA (test code = SONIA) Multimedia Specialist ID - PIAYA L Lab Interpretation (test Normal code = 21211-4) [facility] surface [id number] 02:22:34 Test Item Value Reference Range Interpretation Comments Hepatitis B surface Nonreactive Nonreactive antigen (test code = 5195-3) SONIA (test code = SONIA) Specimen is considered negative for HBsAg. Lab Interpretation (test Normal code = 14517-3) [facility] B core antibody, [id number] 02:22:34 Test Item Value Reference Range Interpretation Comments Hep B C IgM (test code = Nonreactive Nonreactive 36539-4) SONIA (test code = SONIA) Multimedia Specialist ID - PIAYA L Lab Interpretation (test Normal code = 68446-3) [facility] surface [id number] 02:22:34 Test Item Value Reference Range Interpretation Comments Hepatitis B surface Nonreactive Nonreactive antigen (test code = 5195-3) SONIA (test code = SONIA) Specimen is considered negative for HBsAg. Lab Interpretation (test Normal code = 05351-9) [facility]He[facility] hospitaltis B core antibody, [id number] 02:22:34 Test Item Value Reference Range Interpretation Comments Hep B C IgM (test code = Nonreactive Nonreactive 67197-7) SONIA (test code = SONIA) Multimedia Specialist ID - PIAYA L Lab Interpretation (test Normal code = 11602-1) [facility] CenterHESE[facility]ITALTIS B SURFACE [id number] 02:22:34 Test Item Value Reference Range Interpretation Comments HEPATITIS B SURFACE ANTIGEN (2) Nonreactive Nonreactive (BEAKER) (test code = 2585) Specimen is considered negative for HBsAg.HEPATITIS B CORE ANTIBODY, IGM 2022-02-28 02:22:34 Test Item Value Reference Range Interpretation Comments HEPATITIS B CORE IGM ANTIBODY Nonreactive Nonreactive (BEAKER) (test code = 645) Multimedia Specialist ID - GEOVANNA Ferrarianol [id number] 10:53:00 Test Item Value Reference Range Interpretation Comments Ethanol (test code 199 mg/dL The pharm acological = ETOH) response to blo od alcohol levels mayvary from individual to i ndividual. The fatal bakari ntrationhas been reported t o be >400mg/dL. Ethanol [id number] 06:15:00 Test Item Value Reference Range Interpretation Comments Ethanol (test code 287 mg/dL The pharm acological = ETOH) response to blo od alcohol levels mayvary from individual to i ndividual. The fatal bakari ntrationhas been reported t o be >400mg/dL. Ethanol [id number] 02:50:00 Test Item Value Reference Range Interpretation Comments Ethanol (test code 324 mg/dL The pharm acological = ETOH) response to blo od alcohol levels mayvary from individual to i ndividual. The fatal bakari ntrationhas been reported t o be >400mg/dL. Urine [id number] 20:45:00 Test Item Value Reference Range Interpretation Comments RBC,Urine (test code = 0-2 /HPF 0-2 URBC.BUSHWALKING GUIDE) WBC,Urine (test code = 0-5 /HPF 0-5 UWBC.BUSHWALKING GUIDE) Bacteria,Urine (test Few /HPF None Seen A code = UBACT.BUSHWALKING GUIDE) Squamous Epithelial 0-5 /HPF 0-5 Cell,Urine (test code = USQEPI.BUSHWALKING GUIDE) Hyaline Casts,Urine None Seen /HPF None Seen (test code = UHYALC.XX) Reviewed (test code = Manual [facility] UF REFLEXUF REFLEXUA, Urinalysis Rflx Cult/[id number] 20:45:00 Test Item Value Reference Range Interpretation Comments Color,Urine (test code = UCOL) Dark Yellow Yellow A Clarity,Urine (test code = Clear Clear UCLAR) Ph, Urine (test code = UPH) 7.0 5.0-9.0 N Specific [place],Urine (test >= 1.030 1.005-1.030 N code = [...] A code = ULEU) UF REFLEXUF REFLEXDrug Screen,[id number] 20:45:00 Test Item Value Reference Range Interpretation [...] code = HCGU) Negative Negative Comprehensive Metabolic [id number] 20:45:00 Test Item Value Reference Range Interpretation [...] 280 U/L 46-116 H = ALP) Ethanol [id number] 20:45:00 Test Item Value Reference Range Interpretation Comments Ethanol (test code 442 mg/dL HH Critical value called to = ETOH) andread back by Malik TODD[] on: 0 01/21/22 at 2221by BNM17.Th e pharmacological response to blood alcoho l levels mayvary from in dividual to individual. The fatal concentrationha s been reported to be >400mg/dL. Complete Blood Count Auto [id number] 20:45:00 Test Item Value Reference Range Interpretation [...] = NRBCP) 0 % Coronavirus PCR, COVID19 [id number] 20:45:00 Test Item Value Reference Range Interpretation Comments Coronavirus PCR, For use under Emergency COVID19 Rapid (test Use Authorization (EUA) code = SARSCOV2) only. Coronavirus PCR, Reference Range: COVID19 Rapid (test Negative code = TIDTTLH03.1) SARS-CoV-2 PCR Result: Negative by RT-PCR (test code = SARS-CoV-2 PCR Result:) COVID-19 Status: Vsutlwjqfqoa36 Lead [id number] 16:30:0112 LEAD EKG FOR [facility] Test Date: 2843-43-78Djc Name: [facility] Department: 5520Patient ID: [id number] Room: OTFGender: F Counsellors: [id number]: 1985 Requested By: HEBER Bañuelos Number: [id number] Reading MD: Cherri Matt MeasurementsIntervals [place] Rate: 122 P: 78PR: 118 QRS: 74QRSD: 82 T: 75QT: 337 QTc: 410 Interpretive StatementsSINUS TACHYCARDIA WITH SHORT GA INTERVALNONSPECIFIC T-WAVE ABNORMALITYABNORMAL RHYTHM ECGElectronically Signed On 01-10-2022 16:07:49 CDT by [facility] hospitalCoferonCardinal Hill Rehabilitation CenterGreatCall12 Lead EKG 2022-01-07 16:30:0112 LEAD EKG FOR [facility] Test Date: 7345-43-80Pgv Name: [facility] Department: 5520Patient ID: [id number] Room: OTender: F Counsellors: [id number]: 1985 Requested By: HEBER Bañuelos Number: [id number] Rachel MD: Cherri Matt MeasurementsIntervals [place] Rate: 122 P: 78PR: 118 QRS: 74QRSD: 82 T: 75QT: 337 QTc: 410 Interpretive StatementsSINUS TACHYCARDIA WITH SHORT GA INTERVALNONSPECIFIC T-WAVE ABNORMALITYABNORMAL RHYTHM ECGElectronically Signed On 01-10-2022 16:07:49 CDT by TictailSelect Specialty HospitalWiFast Mvythw74 Lead [id number] 16:30:0112 LEAD EKG FOR [facility] Test Date: 1131-69-77Goq Name: [facility] Department: 5520Patient ID: [id number] Room: OTFGender: F Counsellors: [id number]: 1985 Requested By: HEBER Bañuelos Number: [id number] Reading MD: Cherri Matt MeasurementsIntervals [place] Rate: 122 P: 78PR: 118 QRS: 74QRSD: 82 T: 75QT: 337 QTc: 410 Interpretive StatementsSINUS TACHYCARDIA WITH SHORT GA INTERVALNONSPECIFIC T-WAVE ABNORMALITYABNORMAL RHYTHM ECGElectronically Signed On 01-10-2022 16:07:49 CDT by Tictailsaint [facility] hospitalCoferonCardinal Hill Rehabilitation CenterWiFast Xiujgn98 Lead EKG 2022-01-07 16:30:0112 LEAD EKG FOR [facility] Test Date: 0836-29-13Fbt Name: PAMELA OBRIEN Department: 5520Patient ID: [id number] Room: OTender: F Counsellors: [id number]: 1985 Requested By: HEBER Bañuelos Number: [id number] Reading MD: Cherri Matt MeasurementsIntervals [place] Rate: 122 P: 78PR: 118 QRS: 74QRSD: 82 T: 75QT: 337 QTc: 410 Interpretive StatementsSINUS TACHYCARDIA WITH SHORTPR INTERVALNONSPECIFIC T-WAVE ABNORMALITYABNORMAL RHYTHM ECGElectronically Signed On 01-10-2022 16:07:49 CDT by Tictailsaint [facility]uke's east hospitalCoferonCardinal Hill Rehabilitation CenterWiFast [facility] CenterBASIC METABOLIC [id number] 08:24:00 Test Item Value Reference Range Interpretation [...] >3 months. [Automated mess age] The system Verified Person generated this result transmitted ref erence range: >=60. Th e reference range was not used to int erpret this result as normal/abnormal . CREATININE (test 0.40 mg/dL 0.55-1.02 L Note craig ge in code = CREAT) reference rang e due to change in reagent. BUN/CREATININE RATIO 14.3 10-20 N (test code = BUN/CREA) CALCIUM (test code = 8.2 mg/dL 8.5-10.1 L CA) [id number] 08:24:00 Test Item Value Reference Range Interpretation Comments MAGNESIUM (test code = MAG) 1.8 mg/dL 1.8-2.4 N UR OSMOLALITY [id number] 12:16:00 Test Item Value Reference Range Interpretation Comments UR OSMOLALITY RANDOM (test code = 420 mOsm/kg 48-962 N OSMOU) OSMOLALITY [id number] 12:16:00 Test Item Value Reference Range Interpretation Comments OSMOLALITY SERUM (test code = 271 mOsm/kg 275-295 L OSMO) 1355BASIC METABOLIC [id number] 06:15:00 Test Item Value Reference Range Interpretation [...] >3 months. [Automated mess age] The system Verified Person generated this result transmitted ref erence range: >=60. Th e reference range was not used to int erpret this result as normal/abnormal . CREATININE (test 0.40 mg/dL 0.55-1.02 L Note craig ge in code = CREAT) reference rang e due to change in reagent. BUN/CREATININE RATIO 12.8 10-20 N (test code = BUN/CREA) CALCIUM (test code = 7.7 mg/dL 8.5-10.1 L CA) [id number] 06:15:00 Test Item Value Reference Range Interpretation Comments PHOSPHORUS (test code = PHOS) 3.6 mg/dL 2.5-4.9 N [id number] 06:15:00 Test Item Value Reference Range Interpretation Comments MAGNESIUM (test code = MAG) 1.7 mg/dL 1.8-2.4 L OSMOLALITY [id number] 19:46:00 Test Item Value Reference Range Interpretation Comments OSMOLALITY SERUM (test code = 271 MOS/KG 275-295 L OSMO) [id number] OSMOLALITY [id number] 19:40:00 Test Item Value Reference Range Interpretation Comments UR OSMOLALITY RANDOM (test code = 420 MOS/KG 300-1000 N OSMOU) [id number] NA,[id number] 14:56:00 Test Item Value Reference Range Interpretation Comments UR NA,RANDOM (test code = SUN) 72 mmol/L 20-110 N UR OSMOLALITY [id number] 14:56:00 Test Item Value Reference Range Interpretation Comments UR OSMOLALITY RANDOM (test code = mOsm/kg 48-962 OSMOU) BASIC METABOLIC [id number] 05:32:00 Test Item Value Reference Range Interpretation [...] >3 months. [Automated mess age] The system Verified Person generated this result transmitted ref erence range: >=60. Th e reference range was not used to int erpret this result as normal/abnormal . CREATININE (test 0.30 mg/dL 0.55-1.02 L Note craig ge in code = CREAT) reference rang e due to change in reagent. BUN/CREATININE RATIO 15.6 10-20 N (test code = BUN/CREA) CALCIUM (test code = 7.4 mg/dL 8.5-10.1 L CA) [id number] 05:32:00 Test Item Value Reference Range Interpretation Comments PHOSPHORUS (test code = PHOS) 2.4 mg/dL 2.5-4.9 L [id number] 05:32:00 Test Item Value Reference Range Interpretation Comments MAGNESIUM (test code = MAG) 1.6 mg/dL 1.8-2.4 L BASIC METABOLIC [id number] 06:14:00 Test Item Value Reference Range Interpretation [...] >3 months. [Automated mess age] The system Verified Person generated this result transmitted ref erence range: >=60. Th e reference range was not used to int erpret this result as normal/abnormal . CREATININE (test code 0.40 mg/dL 0.55-1.02 L Note change in = CREAT) reference range due to change in reagent. BUN/CREATININE RATIO 12.8 10-20 N (test code = BUN/CREA) CALCIUM (test code = 6.9 mg/dL 8.5-10.1 L CA) [id number] 06:14:00 Test Item Value Reference Range Interpretation Comments MAGNESIUM (test code = MAG) 1.3 mg/dL 1.8-2.4 L COMPREHENSIVE METABOLIC [id number] 05:04:00 Test Item Value Reference Range Interpretation Comments SODIUM (test code = 130 mmol/L 136-145 L NA) POTASSIUM (test code 2.5 mmol/L 3.5-5.1 LL Results called to = K) [id number] by JAYSON PérezGP 12/31/21 0504Cr itical results verifie d and read back by Kelly brady? Y FOR ALL ICU PATIENT EXCLUDI NG HOLD PLEASE CALL [phone] CHLORIDE (test code = 99.0 mmol/L 98-107 [...] >3 months. [Automated mess age] The system Verified Person generated this result transmitted ref erence range: [...] = 51.94 % 13-45 H FESAT) VITAMIN [id number] 05:04:00 Test Item Value Reference Range Interpretation Comments VITAMIN B12 (test code = VITB12) 3896 pg/mL 193-986 H TSH REFLEX TO [id number] 05:04:00 Test Item Value Reference Range Interpretation Comments TSH REFLEX TO FT4 (test code = 1.3 0.4-5.5 N TSHREFLEX) [id number] 05:04:00 Test Item Value Reference Range Interpretation Comments FERRITIN (test code = MARIANNE) 272 ng/mL 8-388 N LACTIC [id number] 04:50:00 Test Item Value Reference Range Interpretation Comments LACTIC ACID (test 2.9 mmol/L 0.4-1.9 HH Results ca lled to code = LACT) [id number] by JAYSON JANG 12/31/21 0450Cr itical results verifie d and read back by Kelly rsnathan? Y FOR ALL ICU PATIENT EXCLUDING HOLD PLEASE CALL [phone] CBC W/AUTO [id number] 04:18:00 Test Item Value Reference Range Interpretation [...] DIFF REQUIRED (test code NO = MDIFF) [id number] 21:11:00 Test Item Value Reference Range Interpretation Comments SODIUM (test code = NA) 130 mmol/L 136-145 L BASIC METABOLIC [id number] 14:49:00 Test Item Value Reference Range Interpretation Comments SODIUM (test code = 129 mmol/L 136-145 L RESULT V ERIFIED BY NA) REPEAT ANALYSIS POTASSIUM (test code 2.5 mmol/L 3.5-5.1 LL Results called to = K) [id number] by 11ED Q5539 12/30/21 1447Cr itical results verifie d and read back by Nu rse? Y FOR ALL ICU PATIENT EXCLUDI NG HOLD PLEASE CALL [phone] CHLORIDE (test code 100.0 mmol/L 98-107 N [...] >3 months. [Automated mess age] The system Verified Person generated this result transmitted ref erence range: [...] 7.4 mg/dL 8.5-10.1 L CA) COMPREHENSIVE METABOLIC [id number] 08:42:00 Test Item Value Reference Range Interpretation Comments SODIUM (test code = 137 mmol/L 136-145 RESULT V ERIFIED BY NA) REPEAT ANALYSIS POTASSIUM (test code 2.2 mmol/L 3.5-5.1 LL Results called to = K) [id number] by 2DIMITRIZ 5695 12/30/21 0839Critical re sults verified and re ad back by Nurse? YRESULT VERIFIE D BY REPEAT ANALYSIS FOR ALL ICU PATIENT EXCLUDI NG HOLD PLEASE CALL * [phone] CHLORIDE (test code = 107.0 mmol/L 98-107 [...] >3 months. [Automated mess age] The system Verified Person generated this result transmit afshin reference range [...] range due ALKP) to change in reagent. [id number] 08:42:00 Test Item Value Reference Range Interpretation Comments PHOSPHORUS (test code = PHOS) 3.0 mg/dL 2.5-4.9 N [id number] 08:42:00 Test Item Value Reference Range Interpretation Comments MAGNESIUM (test code = MAG) 1.8 mg/dL 1.8-2.4 N CBC W/AUTO [id number] 03:29:00 Test Item Value Reference Range Interpretation [...] = 0.00 K/mm3 0.0-0.1 N NRBC#) LACTIC [id number] 21:59:00 Test Item Value Reference Range Interpretation Comments LACTIC ACID (test 4.2 mmol/L 0.4-1.9 HH Results ca lled to code = LACT) [id number] by JAYSON BOYD 12/29/21 2159Cr itical results verifie d and read back by Nu rse? Y FOR ALL ICU PATIENT EXCLUDING HOLD PLEASE CALL [phone] BASIC METABOLIC [id number] 21:59:00 Test Item Value Reference Range Interpretation Comments SODIUM (test code = 129 mmol/L 136-145 L NA) POTASSIUM (test code 2.3 mmol/L 3.5-5.1 LL Results called to = K) [id number] by JAYSON Pérez 12/29/21 2159Cr itical results verifie d and read back by Kelly rsnathan? Y FOR ALL ICU PATIENT EXCLUDI NG HOLD PLEASE CALL [phone] CHLORIDE (test code = 96.0 mmol/L 98-107 [...] >3 months. [Automated mess age] The system Verified Person generated this result transmitted ref erence range: >=60. Th e reference range was not used to int erpret this result as normal/abnormal . CREATININE (test code 2.20 mg/dL 0.55-1.02 H Note change in = CREAT) reference range due to change in reagent. BUN/CREATININE RATIO 5.9 10-20 L (test code = BUN/CREA) CALCIUM (test code = 6.9 mg/dL 8.5-10.1 L CA) HEPATIC FUNCTION [id number] 21:59:00 Test Item Value Reference Range Interpretation [...] range due ALKP) to change in reagent. [id number] 21:50:00 Test Item Value Reference Range Interpretation Comments AMMONIA (test code = AMM) 55 umol/L 11-32 H - US ABDOMEN [id number] 18:33:00 [facility])Name: PAMELA OBRIEN : 1985 Sex: F Name: PAMELA OBRIEN [facility] : 1985 Age/S: 36 / F [address] [facility] Unit #: [id number] Loc: [place] [address] Phys: Alexis Fitzpatrick DO Acct: [id number] Dis Date: Status: ADM INPHONE #: [phone] Exam Date: 12/29/2021 1806 FAX #: [phone] Reason: CIRRHOSIS, EVALUATE FORASCITES, ORGANOMEGALY EXAMS: CPT CODE: [id number] US ABDOMEN COMPLETE 01020 REASON FOR EXAM: CIRRHOSIS, EVALUATE FOR ASCITES, [...] PAGE1 Signed Report (CONTINUED) Name: PAMELA OBRIEN [facility] : 1985 Age/S: 36 / F [address] [facility] Unit #: [id number] [place] [address] Phys: Alexis Fitzpatrick DO Acct: [id number] Dis Date: Status: ADM IN PHONE #: [phone] Exam Date: 12/29/2021 1806 FAX #: [phone] Reason: CIRRHOSIS, EVALUATE FOR ASCITES, ORGANOMEGALY EXAMS: CPT CODE: [id number] US ABDOMEN COMPLETE 40611 (Continued) Left kidney: parenchyma echogenicity: Normal echogenicity size: 11 x 4.9 x 4.6 cm stones: none cysts/masses: none hydronephrosis: none Spleen: size: 9.2 cm cysts/masses: Parenchyma is sonographically unremarkable. Ascites/pleural effusions: None IMPRESSION: Hepatomegaly with hepatic steatosis.No ascites. Location: [facility] at 1833 Reported and signed by: London Madrid M.D. CC: Alexis Fitzpatrick DO Technologist: Celsa Cage Trnscb Date/Time: 12/29/2021 (1832) TonyR.[email or web address] Orig Print D/T: S: 12/29/2021 (1836) Probe: [...] valves (2.5-3.5) IS PATIENT ON ANTICOAGULANTS? NURINALYSIS [id number] 17:45:00 Test Item Value Reference Range Interpretation Comments UA COLOR (test code = YELLOW YELLOW COLU) UA APPEARANCE (test Cloudy CLEAR A IS THE S AMPLE code = APPU) FROM ER OR L&D? ER IF THE ANSWER I S NO,PLEASE DOCUMENT TWO RN SIGNATURES HERE - by [id number] 12/29/21 1744 UA GLUCOSE DIPSTICK NEGATIVE mg/dL [...] FEW A MUCU) Urine Source? Clean CatchLACTIC [id number] 15:30:00 Test Item Value Reference Range Interpretation Comments LACTIC ACID (test 5.9 mmol/L 0.4-1.9 HH Results ca lled to code = LACT) [id number] by JAYSON BOYD 12/29/21 1530Cr itical results verifie d and read back by Kelly brady? Y FOR ALL ICU PATIENT EXCLUDING HOLD PLEASE CALL [phone] [id number] 15:18:00 Test Item Value Reference Range Interpretation Comments MAGNESIUM (test code = MAG) 1.0 mg/dL 1.8-2.4 L BASIC METABOLIC [id number] 15:18:00 Test Item Value Reference Range Interpretation Comments SODIUM (test code = 121 mmol/L 136-145 LL Results called to DR THIBODEAUX) AGMERCEDESKAby V.L AB. 12/29/21 1517Cr itical results verifie d and read back by Nu rse? Y POTASSIUM (test code 1.9 mmol/L 3.5-5.1 LL Results called to = K) AGBABIAKAby V.L AB.LT 12/29/21 1517Cr itical results verifie d and read back by Nu rse? Y FOR ALL ICU PATIENT EXCLUDI NG HOLD PLEASE CALL [phone] CHLORIDE (test code = 90.0 mmol/L 98-107 [...] >3 months. [Automated mess age] The system Verified Person generated this result transmitted ref erence range: [...] 8.5-10.1 LL Results called to DR ELLIOTT) CONSTANCEKAby V.L AB. 12/29/21 1518Cr itical results verifie d and read back by Nu rse? Y CREATINE KINASE (CK)2021-12-29 15:18:00 Test Item Value Reference Range Interpretation Comments CREATINE KINASE (CK) (test code = 67 IUnit/L 26-208 N CK) [id number] 15:07:00 Test Item Value Reference Range Interpretation Comments PHOSPHORUS (test code = PHOS) 2.5 mg/dL 2.5-4.9 N CBC W/O [id number] 14:26:00 Test Item Value Reference Range Interpretation [...] N = MPV) - CT HEAD/BRAIN W/O [id number] 14:16:00 [facility])Name: PAMELA OBRIEN : 1985 Sex: F Name: PAMELA OBRIEN [facility] : 1985 Age/S: 36 / F Dore[facility] Dig[facility] Unit #: [id number] Loc: [place] [address] Phys: Mana Biggs MD Acct: [id number] Dis Date: Status: REG ER PHONE #: [phone] Exam Date: 12/29/2021 1403 FAX #: [phone] Reason: weakness of bilat LE EXAMS: CPT CODE: [id number] CT HEAD/BRAIN W/O CONT 51967 HISTORY: weakness of bilat LE TECHNIQUE: Noncontrast [...] are unremarkable. IMPRESSION: Negative CT head. Location: [facility] at 1416 Reported and signed by:Rd Avitia MD CC: Mana Biggs MD Technologist:Annie Beck,RT(R),CT CTDI: DLP: Trnscb Date/Time: 12/29/2021 (1416) t.[email or web address] Orig Print D/T: S: 12/29/2021 (0661) PAGE 1 Signed Report- XR CHEST 1 [id number] 13:51:00 [facility])Name: PAMELA OBRIEN : 1985 Sex: F FAX: Mana Ritter [phone] [place]: St: REG Name: PAMELA OBRIEN [facility] : 1985 Age/S: 36/F [address] [facility] Unit #: [id number] Loc: [place] [address] Phys: Mana Biggs MD Acct: [id number] Dis Date: Status: REG ER PHONE #: [phone] Exam Date: 12/29/2021 1344 FAX #: [phone] Reason: weakness EXAMS: CPT CODE: [id number] XR CHEST 1 V 59533 REASON FOR EXAM: weakness Exam Order Date: [...] Severe dextroscoliosis of the thoracic spine. Location: [facility] at 1351 Reported and signed by: Rd Avitia MD CC: Mana Biggs MD Technologist: JERAMY FAGAN JR RT(R); STUDENT TECHNOLOGIST Trnscrd Date/Time/By: 12/29/2021 (8985) : By: ToluRR31 Orig Print D/T: S: 12/29/2021 (1272) PAGE 1 Signed ReportCOMP. METABOLIC PANEL (82815)2020-11-20 09:27:15 Test Item Value Reference Range Interpretation Comments NA (test code = 135 mmol/L 135-145 6965286384) K (test code = 4.0 mmol/L 3.5-5.0 6872440218) CL (test code = 99 mmol/L 98-108 0381315979) CO2 TOTAL (test code 29 mmol/L 23-31 = 3157018040) AGAP (test code = 7 2-16 7610081557) BUN (test code = 9 mg/dL 7-23 8699077853) GLUCOSE (test code = 97 mg/dL 70-110 1887032252) CREATININE (test code 0.53 mg/dL 0.50-1.04 = 5045865262) TOTAL BILI (test code 0.4 mg/dL 0.1-1.1 = 3820620044) CALCIUM (test code = 9.1 mg/dL 8.6-10.6 0008378800) T PROTEIN (test code 7.0 g/dL 6.3-8.2 = 9719678278) ALBUMIN (test code = 4.0 g/dL 3.5-5.0 6974526564) ALK PHOS (test code = 52 U/L 34-122 5646621120) ALTv (test code = 13 U/L 5-35 1742-6) AST(SGOT) (test code 27 U/L 13-40 = 3356715419) eGFR (test code = 132.0 mL/min/1.73m2 7908260904) SONIA (test code = SONIA) Association of [...] in imaging tests). [facility] [id number] 09:27:00 Test Item Value Reference Range Interpretation Comments POCT PREG (test code = 1605) negative On board controls acceptable with C present Line (test code = 3574) Lab Interpretation (test code = Normal 72657-2) [facility]vineBILI UNCONJUGATED/BILI [id number] 09:26:34 Test Item Value Reference Range Interpretation Comments BILI CONJ (test code = 6269476148) 0.0 mg/dL 0.0-0.3 BILI UNCON (test code = 9627989492) 0.2 mg/dL 0.1-1.1 Lab Interpretation (test code = Normal 01661-0) [facility] GrapevinePROTHROMBIN TIME / [id number] 09:18:33 Test Item Value Reference Range Interpretation [...] tions. Lab Interpretation (test Normal code = 43846-1) [facility] GrapevineCB WITH [id number] 09:03:56 Test Item Value Reference Range Interpretation Comments WBC (test code = 6.87 See_Comment [Automated 5390-2) message] The sy stem which generated this [...] (test code = 51.1 fL 39.0-49.9 H 00218-3) RDW-CV (test code = 22.0 % 12.0-15.5 H 788-0) PLT (test code = 268 See_Comment [Automated 777-3) message] The sy stem which generated this result transmitted reference range : 166 - 358 10*3/ ?L. The reference r yvonne was not used to interpret this result as normal/abnormal . MPV (test code = 9.4 fL 9.5-12.9 L 07400-0) NRBC/100 WBC (test 0.0 See_Comment [Automat ed code = 6070505524) message] The system which generated this result transmitted reference range : 0.0 - 10.0 /100 WBCs. The refer ence range was not u sed to interpret th is result as normal/abnormal . NRBC x10^3 (test code <0.01 See_Comment [Auto mated = 9360652892) message] The s ystem which generated this result transmitted reference range : 10*3/?L. The reference range was not used to interpret this result as normal/abnormal . GRAN MAT (NEUT) % 65.0 % (test code = 770-8) IMM GRAN % (test code 0.30 % = 2921835570) LYMPH % (test code = 25.5 % 736-9) MONO % (test code = 7.4 % 5905-5) EOS % (test code = 0.9 % 713-8) BASO % (test code = 0.9 % 706-2) GRAN MAT x10^3(ANC) 4.47 10*3/uL 1.88-7.09 (test code = 2205102286) IMM GRAN x10^3 (test <0.03 0.00-0.06 code = 0003150813) LYMPH x10^3 (test code 1.75 10*3/uL 1.32-3.29 = 731-0) MONO x10^3 (test code 0.51 10*3/uL 0.33-0.92 = 742-7) EOS x10^3 (test code = 0.06 10*3/uL 0.03-0.39 711-2) BASO x10^3 (test code 0.06 10*3/uL 0.01-0.07 = 704-7) Lab Interpretation Abnormal (test code = 69622-1) [facility]vinePONH GLUCOSE (AUTOMATED)2020-11-20 08:38:55 Test Item Value Reference Range Interpretation Comments POCT GLU (test code = 2250205958) 104 mg/dL 70-110 Lab Interpretation (test code = Normal 29651-7) [facility] [id number] 21:41:00 Test Item Value Reference Range Interpretation Comments Iron (test code = Iron) 11 [facility] [id number] 21:41:00 Test Item Value Reference Range Interpretation Comments TIBC (test code = TIBC) 285 [facility] [id number] 21:41:00 Test Item Value Reference Range Interpretation Comments % Satur Fe (test code = % Satur Fe) 4 [facility] [id number] 21:41:00 Test Item Value Reference Range Interpretation Comments Iron (test code = Iron) 11 [facility] [id number] 21:41:00 Test Item Value Reference Range Interpretation Comments TIBC (test code = TIBC) 285 [facility]2021-03-01 21:41:00 Test Item Value Reference Range Interpretation Comments % Satur Fe (test code = % Satur Fe) 4 [facility]2021-03-01 09:48:00 Test Item Value Reference Range Interpretation Comments Lipase Lvl (test code = Lipase Lvl) 679 73-393 [place] 050791-03-01 09:48:00 Test Item Value Reference Range Interpretation Comments Glucose Lvl (test code = Glucose Lvl) 74 70-99 [place] 050791-03-01 09:48:00 Test Item Value Reference Range Interpretation Comments BUN (test code = BUN) 10 7-22 [place] 050791-03-01 09:48:00 Test Item Value Reference Range Interpretation Comments Creatinine Lvl (test code = Creatinine 0.49 0.50-1.40 Lvl) [place] 050791-03-01 09:48:00 Test Item Value Reference Range Interpretation Comments Sodium Lvl (test code = Sodium Lvl) 136 135-145 [place] 050791-03-01 09:48:00 Test Item Value Reference Range Interpretation Comments Potassium Lvl (test code = Potassium 3.0 3.5-5.1 Lvl) [facility]2021-03-01 09:48:00 Test Item Value Reference Range Interpretation Comments Chloride Lvl (test code = Chloride Lvl) 99 95-109 [facility]2021-03-01 09:48:00 Test Item Value Reference Range Interpretation Comments CO2 (test code = CO2) 33 24-32 [place] 050791-03-01 09:48:00 Test Item Value Reference Range Interpretation Comments AGAP (test code = AGAP) 7.0 10.0-20.0 [place] 050791-03-01 09:48:00 Test Item Value Reference Range Interpretation Comments Calcium Lvl (test code = Calcium Lvl) 8.4 8.5-10.5 [place] 050791-03-01 09:48:00 Test Item Value Reference Range Interpretation Comments B/C Ratio (test code = B/C Ratio) 20 1 6-25 [place] 050791-03-01 09:48:00 Test Item Value Reference Range Interpretation Comments Total Protein (test code = Total 5.8 6.4-8.4 Protein) [place] 050791-03-01 09:48:00 Test Item Value Reference Range Interpretation Comments Albumin Lvl (test code = Albumin Lvl) 2.4 3.5-5.0 [place] 050791-03-01 09:48:00 Test Item Value Reference Range Interpretation Comments Globulin (test code = Globulin) 3.4 2.7-4.2 [place] 050791-03-01 09:48:00 Test Item Value Reference Range Interpretation Comments A/G Ratio (test code = A/G Ratio) 0.7 1 0.7-1.6 [place] 050791-03-01 09:48:00 Test Item Value Reference Range Interpretation Comments ALT (test code = ALT) 27 See_Comment [Auto mated message] The system which ge nerated this result transmit afshin reference range : <=65. The reference range was not used to interpr et this result as modesto l/abnormal. [place] 050791-03-01 09:48:00 Test Item Value Reference Range Interpretation Comments AST (test code = AST) 36 See_Comment [Auto mated message] The system which ge nerated this result transmit afshin reference range : <=37. The reference range was not used to interpr et this result as modesto l/abnormal. [place] 050791-03-01 09:48:00 Test Item Value Reference Range Interpretation Comments Alk Phos (test code = Alk Phos) 57 39-136 [place] 050791-03-01 09:48:00 Test Item Value Reference Range Interpretation Comments Lipase Lvl (test code = Lipase Lvl) 679 73-393 [place] 050791-03-01 09:48:00 Test Item Value Reference Range Interpretation Comments Glucose Lvl (test code = Glucose Lvl) 74 70-99 [place] 050791-03-01 09:48:00 Test Item Value Reference Range Interpretation Comments BUN (test code = BUN) 10 7-22 [place] 050791-03-01 09:48:00 Test Item Value Reference Range Interpretation Comments Creatinine Lvl (test code = Creatinine 0.49 0.50-1.40 Lvl) [place] 050791-03-01 09:48:00 Test Item Value Reference Range Interpretation Comments Sodium Lvl (test code = Sodium Lvl) 136 135-145 [place] 050791-03-01 09:48:00 Test Item Value Reference Range Interpretation Comments Potassium Lvl (test code = Potassium 3.0 3.5-5.1 Lvl) [place] 050791-03-01 09:48:00 Test Item Value Reference Range Interpretation Comments Chloride Lvl (test code = Chloride Lvl) 99 95-109 [place] 050791-03-01 09:48:00 Test Item Value Reference Range Interpretation Comments CO2 (test code = CO2) 33 24-32 [place] 050791-03-01 09:48:00 Test Item Value Reference Range Interpretation Comments AGAP (test code = AGAP) 7.0 10.0-20.0 [place] 050791-03-01 09:48:00 Test Item Value Reference Range Interpretation Comments Calcium Lvl (test code = Calcium Lvl) 8.4 8.5-10.5 [place] 050791-03-01 09:48:00 Test Item Value Reference Range Interpretation Comments B/C Ratio (test code = B/C Ratio) 20 1 6-25 [place] 050791-03-01 09:48:00 Test Item Value Reference Range Interpretation Comments Total Protein (test code = Total 5.8 6.4-8.4 Protein) [place] 050791-03-01 09:48:00 Test Item Value Reference Range Interpretation Comments Albumin Lvl (test code = Albumin Lvl) 2.4 3.5-5.0 [place] 050791-03-01 09:48:00 Test Item Value Reference Range Interpretation Comments Globulin (test code = Globulin) 3.4 2.7-4.2 [place] 050791-03-01 09:48:00 Test Item Value Reference Range Interpretation Comments Bili Total (test code = Bili Total) 0.4 0.2-1.3 [place] 050791-03-01 09:48:00 Test Item Value Reference Range Interpretation Comments A/G Ratio (test code = A/G Ratio) 0.7 1 0.7-1.6 [place] 050791-03-01 09:48:00 Test Item Value Reference Range Interpretation Comments ALT (test code = ALT) 27 See_Comment [Auto mated message] The system which ge nerated this result transmit afshin reference range : <=65. The reference range was not used to interpr et this result as modesto l/abnormal. [place] 050791-03-01 09:48:00 Test Item Value Reference Range Interpretation Comments AST (test code = AST) 36 See_Comment [Auto mated message] The system which ge nerated this result transmit afshin reference range : <=37. The reference range was not used to interpr et this result as modesto l/abnormal. [place] 050791-03-01 09:48:00 Test Item Value Reference Range Interpretation Comments Alk Phos (test code = Alk Phos) 57 39-136 [place] 050791-03-01 09:48:00 Test Item Value Reference Range Interpretation Comments Bili Total (test code = Bili Total) 0.4 0.2-1.3 [place] 27056-03-01 09:48:00 Test Item Value Reference Range Interpretation Comments eGFR (test code = eGFR) 127 [place] 050791-03-01 09:48:00 Test Item Value Reference Range Interpretation Comments Magnesium Lvl (test code = Magnesium 2.2 1.8-2.4 Lvl) [place] 050791-03-01 09:48:00 Test Item Value Reference Range Interpretation Comments Phosphorus (test code = Phosphorus) 3.4 2.5-4.5 [place] 725081-03-01 09:48:00 Test Item Value Reference Range Interpretation Comments Segs (test code = Segs) 56.4 45.0-75.0 [place] 725081-03-01 09:48:00 Test Item Value Reference Range Interpretation Comments Lymphocytes (test code = Lymphocytes) 32.0 20.0-40.0 [place] 56267-03-01 09:48:00 Test Item Value Reference Range Interpretation Comments Monocytes (test code = Monocytes) 7.6 2.0-12.0 [place] 56267-03-01 09:48:00 Test Item Value Reference Range Interpretation Comments Eosinophils (test code = 3.2 See_Comment [A utomated message] The Eosinophils) system which ge nerated this result tra nsmitted reference range : <=4.0. The reference r yvonne was not used to int erpret this result as normal/abnormal . [place] 725081-03-01 09:48:00 Test Item Value Reference Range Interpretation Comments Basophils (test code = 0.8 See_Comment [Aut omated message] The Basophils) system which ge nerated this result tra nsmitted reference range : <=1.0. The reference r yvonne was not used to int erpret this result as normal/abnormal . [place] 725081-03-01 09:48:00 Test Item Value Reference Range Interpretation Comments Neutrophils # (test code = Neutrophils 2.3 1.5-8.1 #) [place] 725081-03-01 09:48:00 Test Item Value Reference Range Interpretation Comments Lymphocytes # (test code = Lymphocytes 1.3 1.0-5.5 #) [place] 725081-03-01 09:48:00 Test Item Value Reference Range Interpretation Comments Monocytes # (test code 0.3 See_Comment [Aut omated message] The = Monocytes #) system which generated this result tra nsmitted reference range : <=0.8. The reference r yvonne was not used to int erpret this result as normal/abnormal . [place] 725081-03-01 09:48:00 Test Item Value Reference Range Interpretation Comments Eosinophils # (test code 0.1 See_Comment [A utomated message] The = Eosinophils #) system whic h generated this result tra nsmitted reference range : <=0.5. The reference r yvonne was not used to int erpret this result as normal/abnormal . [place] 725081-03-01 09:48:00 Test Item Value Reference Range Interpretation Comments Microcyte (test code = 3+ *NA*(09/14/20 3:48 Microcyte) AM) [place] 725081-03-01 09:48:00 Test Item Value Reference Range Interpretation Comments WBC (test code = WBC) 4.1 3.7-10.4 [place] 56267-03-01 09:48:00 Test Item Value Reference Range Interpretation Comments RBC (test code = RBC) 3.58 4.20-5.40 [place] 725081-03-01 09:48:00 Test Item Value Reference Range Interpretation Comments Hgb (test code = Hgb) 7.1 12.0-16.0 [place] 56267-03-01 09:48:00 Test Item Value Reference Range Interpretation Comments Hct (test code = Hct) 22.5 36.0-48.0 [place] 725081-03-01 09:48:00 Test Item Value Reference Range Interpretation Comments MCV (test code = MCV) 62.8 80.0-98.0 [place] 725081-03-01 09:48:00 Test Item Value Reference Range Interpretation Comments MCH (test code = MCH) 19.8 pg 27.0-31.0 [place] 725081-03-01 09:48:00 Test Item Value Reference Range Interpretation Comments MCHC (test code = MCHC) 31.5 32.0-36.0 [place] 725081-03-01 09:48:00 Test Item Value Reference Range Interpretation Comments RDW (test code = RDW) 23.2 11.5-14.5 [place] 725081-03-01 09:48:00 Test Item Value Reference Range Interpretation Comments Platelet (test code = Platelet) 239 133-450 [facility] TylerTarsjzwVYCWOVHLXE1170-94-88 09:48:00 Test Item Value Reference Range Interpretation Comments MPV (test code = MPV) 8.4 7.4-10.4 [facility]2021-03-01 09:48:00 Test Item Value Reference Range Interpretation Comments eGFR (test code = eGFR) 127 [facility]2021-03-01 09:48:00 Test Item Value Reference Range Interpretation Comments Magnesium Lvl (test code = Magnesium 2.2 1.8-2.4 Lvl) [facility]2021-03-01 09:48:00 Test Item Value Reference Range Interpretation Comments Phosphorus (test code = Phosphorus) 3.4 2.5-4.5 [place] 725081-03-01 09:48:00 Test Item Value Reference Range Interpretation Comments Segs (test code = Segs) 56.4 45.0-75.0 [place] 56267-03-01 09:48:00 Test Item Value Reference Range Interpretation Comments Lymphocytes (test code = Lymphocytes) 32.0 20.0-40.0 [place] 725081-03-01 09:48:00 Test Item Value Reference Range Interpretation Comments Monocytes (test code = Monocytes) 7.6 2.0-12.0 [place] 725081-03-01 09:48:00 Test Item Value Reference Range Interpretation Comments Eosinophils (test code = 3.2 See_Comment [A utomated message] The Eosinophils) system which ge nerated this result tra nsmitted reference range : <=4.0. The reference r yvonne was not used to int erpret this result as normal/abnormal . [place] 725081-03-01 09:48:00 Test Item Value Reference Range Interpretation Comments Basophils (test code = 0.8 See_Comment [Aut omated message] The Basophils) system which ge nerated this result tra nsmitted reference range : <=1.0. The reference r yvonne was not used to int erpret this result as normal/abnormal . [place] 725081-03-01 09:48:00 Test Item Value Reference Range Interpretation Comments Neutrophils # (test code = Neutrophils 2.3 1.5-8.1 #) [place] 725081-03-01 09:48:00 Test Item Value Reference Range Interpretation Comments Lymphocytes # (test code = Lymphocytes 1.3 1.0-5.5 #) [facility] TylerRxykngbKFRQNRZLQH7438-07-37 09:48:00 Test Item Value Reference Range Interpretation Comments Monocytes # (test code 0.3 See_Comment [Aut omated message] The = Monocytes #) system which generated this result tra nsmitted reference range : <=0.8. The reference r yvonne was not used to int erpret this result as normal/abnormal . [place] 725081-03-01 09:48:00 Test Item Value Reference Range Interpretation Comments Eosinophils # (test code 0.1 See_Comment [A utomated message] The = Eosinophils #) system whic h generated this result tra nsmitted reference range : <=0.5. The reference r yvonne was not used to int erpret this result as normal/abnormal . [place] 725081-03-01 09:48:00 Test Item Value Reference Range Interpretation Comments Microcyte (test code = 3+ *NA*(09/14/20 3:48 Microcyte) AM) [place] 725081-03-01 09:48:00 Test Item Value Reference Range Interpretation Comments WBC (test code = WBC) 4.1 3.7-10.4 [place] 725081-03-01 09:48:00 Test Item Value Reference Range Interpretation Comments RBC (test code = RBC) 3.58 4.20-5.40 [place] 725081-03-01 09:48:00 Test Item Value Reference Range Interpretation Comments Hgb (test code = Hgb) 7.1 12.0-16.0 [place] 725081-03-01 09:48:00 Test Item Value Reference Range Interpretation Comments Hct (test code = Hct) 22.5 36.0-48.0 [facility] [id number] 09:48:00 Test Item Value Reference Range Interpretation Comments MCV (test code = MCV) 62.8 80.0-98.0 [place] 725081-03-01 09:48:00 Test Item Value Reference Range Interpretation Comments MCH (test code = MCH) 19.8 pg 27.0-31.0 [place] 725081-03-01 09:48:00 Test Item Value Reference Range Interpretation Comments MCHC (test code = MCHC) 31.5 32.0-36.0 [facility] TylerNypuhhvXKSEHBLEMY4022-16-92 09:48:00 Test Item Value Reference Range Interpretation Comments RDW (test code = RDW) 23.2 11.5-14.5 [facility] [id number] 09:48:00 Test Item Value Reference Range Interpretation Comments Platelet (test code = Platelet) 239 133-450 [facility] TylerLmbrdnkJTGEKEVNXQ4268-10-07 09:48:00 Test Item Value Reference Range Interpretation Comments MPV (test code = MPV) 8.4 7.4-10.4 [facility]2021-02-28 22:56:00 Test Item Value Reference Range Interpretation Comments Iron (test code = Iron) 12 [facility]2021-02-28 22:56:00 Test Item Value Reference Range Interpretation Comments TIBC (test code = TIBC) 311 [facility]2021-02-28 22:56:00 Test Item Value Reference Range Interpretation Comments % Satur Fe (test code = % Satur Fe) 4 [facility]2021-02-28 22:56:00 Test Item Value Reference Range Interpretation Comments Lactic Acid Lvl (test code = Lactic 1.2 0.5-2.2 Acid Lvl) [facility]ztamnu[facility]ZYOFLBPZS0924-96-11 22:56:00 Test Item Value Reference Range Interpretation Comments Coronavirus (COVID-19) Not Detected (09/13/20 OLLIE (test code = 4:56 PM) Coronavirus (COVID-19) OLLIE) [facility]2021-02-28 22:56:00 Test Item Value Reference Range Interpretation Comments Iron (test code = Iron) 12 [facility] [id number] 22:56:00 Test Item Value Reference Range Interpretation Comments TIBC (test code = TIBC) 311 [facility]2021-02-28 22:56:00 Test Item Value Reference Range Interpretation Comments % Satur Fe (test code = % Satur Fe) 4 [facility] [id number] 22:56:00 Test Item Value Reference Range Interpretation Comments Lactic Acid Lvl (test code = Lactic 1.2 0.5-2.2 Acid Lvl) [facility]jjeFAEACGNVWF2544-32-38 22:56:00 Test Item Value Reference Range Interpretation Comments Coronavirus (COVID-19) Not Detected (09/13/20 OLLIE (test code = 4:56 PM) Coronavirus (COVID-19) OLLIE) [facility] [id number] 20:59:00 Test Item Value Reference Range Interpretation Comments UA Bacteria (test code = UA Many /HPF Bacteria) [facility] [id number] 20:59:00 Test Item Value Reference Range Interpretation Comments UA Mucus (test code = UA Mucus) Many /LPF [facility] [id number] 20:59:00 Test Item Value Reference Range Interpretation Comments UA Hyal Cast (test 49 See_Comment [Automat ed message] The code = UA Hyal Cast) system which generated this result transmit afshin reference range : <=2. The reference range was not used to interpr et this result as modesto l/abnormal. [facility] [id number] 20:59:00 Test Item Value Reference Range Interpretation Comments Culture: Urine >100,000 CFU/mL Gram (test code = Negative Rods Culture: Urine) Identification And Sensitivity Pending [facility] [id number] 20:59:00 Test Item Value Reference Range Interpretation Comments UA Color (test code = Teresa *ABN*(09/13/20 UA Color) 2:59 PM) [facility] [id number] 20:59:00 Test Item Value Reference Range Interpretation Comments UA Turbidity (test code Marked *ABN*(09/13/20 = UA Turbidity) 2:59 PM) [facility] [id number] 20:59:00 Test Item Value Reference Range Interpretation Comments UA Spec Grav (test code = UA Spec 1.027 1 Grav) [facility] [id number] 20:59:00 Test Item Value Reference Range Interpretation Comments UA pH (test code = UA pH) 5.0 1 5.0-8.0 [facility] [id number] 20:59:00 Test Item Value Reference Range Interpretation Comments UA Protein (test code = UA Protein) 30 mg/dL [facility] [id number] 20:59:00 Test Item Value Reference Range Interpretation Comments UA Glucose (test code = UA Negative mg/dL Glucose) [facility] [id number] 20:59:00 Test Item Value Reference Range Interpretation Comments UA Ketones (test code = UA Negative mg/dL Ketones) [facility] [id number] 20:59:00 Test Item Value Reference Range Interpretation Comments UA Bili (test code = Negative *NA*(09/13/20 UA Bili) 2:59 PM) [facility] [id number] 20:59:00 Test Item Value Reference Range Interpretation Comments UA Blood (test code = Negative (09/13/20 2:59 UA Blood) PM) [facility] [id number] 20:59:00 Test Item Value Reference Range Interpretation Comments UA Urobilinogen (test code = UA 2.0 0.1-1.0 Urobilinogen) [facility] [id number] 20:59:00 Test Item Value Reference Range Interpretation Comments UA Nitrite (test code Positive *ABN*(09/13/20 = UA Nitrite) 2:59 PM) [facility] [id number] 20:59:00 Test Item Value Reference Range Interpretation Comments UA Leuk Est (test Moderate *ABN*(09/13/20 code = UA Leuk Est) 2:59 PM) [facility] [id number] 20:59:00 Test Item Value Reference Range Interpretation Comments UA Sq Epi (test code = UA Sq Epi) Few /LPF [facility] [id number] 20:59:00 Test Item Value Reference Range Interpretation Comments UA WBC (test code = 157 See_Comment [Automa afshin message] The UA WBC) system which ge nerated this result transmit afshin reference range : <=5. The reference range was not used to interpr et this result as modesto l/abnormal. [facility] AND [id number] 20:59:00 Test Item Value Reference Range Interpretation Comments UA RBC (test code = 18 See_Comment [Automa afshin message] The UA RBC) system which ge nerated this result transmit afshin reference range : <=2. The reference range was not used to interpr et this result as modesto l/abnormal. [facility] [id number] 20:59:00 Test Item Value Reference Range Interpretation Comments UA Color (test code = Teresa *ABN*(09/13/20 UA Color) 2:59 PM) [facility] [id number] 20:59:00 Test Item Value Reference Range Interpretation Comments UA Turbidity (test code Marked *ABN*(09/13/20 = UA Turbidity) 2:59 PM) [facility] [id number] 20:59:00 Test Item Value Reference Range Interpretation Comments UA Spec Grav (test code = UA Spec 1.027 1 Grav) [facility] [id number] 20:59:00 Test Item Value Reference Range Interpretation Comments UA pH (test code = UA pH) 5.0 1 5.0-8.0 [facility] [id number] 20:59:00 Test Item Value Reference Range Interpretation Comments UA Protein (test code = UA Protein) 30 mg/dL [facility] [id number] 20:59:00 Test Item Value Reference Range Interpretation Comments UA Glucose (test code = UA Negative mg/dL Glucose) [facility] [id number] 20:59:00 Test Item Value Reference Range Interpretation Comments UA Ketones (test code = UA Negative mg/dL Ketones) [facility] [id number] 20:59:00 Test Item Value Reference Range Interpretation Comments UA Bili (test code = Negative *NA*(09/13/20 UA Bili) 2:59 PM) [facility] [id number] 20:59:00 Test Item Value Reference Range Interpretation Comments UA Blood (test code = Negative (09/13/20 2:59 UA Blood) PM) [facility] [id number] 20:59:00 Test Item Value Reference Range Interpretation Comments UA Urobilinogen (test code = UA 2.0 0.1-1.0 Urobilinogen) [facility] [id number] 20:59:00 Test Item Value Reference Range Interpretation Comments UA Nitrite (test code Positive *ABN*(09/13/20 = UA Nitrite) 2:59 PM) [facility] [id number] 20:59:00 Test Item Value Reference Range Interpretation Comments UA Leuk Est (test Moderate *ABN*(09/13/20 code = UA Leuk Est) 2:59 PM) [facility] [id number] 20:59:00 Test Item Value Reference Range Interpretation Comments UA Sq Epi (test code = UA Sq Epi) Few /LPF [facility] [id number] 20:59:00 Test Item Value Reference Range Interpretation Comments UA WBC (test code = 157 See_Comment [Automa afshin message] The UA WBC) system which ge nerated this result transmit afshin reference range : <=5. The reference range was not used to interpr et this result as modesto l/abnormal. [facility] AND [id number] 20:59:00 Test Item Value Reference Range Interpretation Comments UA RBC (test code = 18 See_Comment [Automa afshin message] The UA RBC) system which ge nerated this result transmit afshin reference range : <=2. The reference range was not used to interpr et this result as modesto l/abnormal. [facility] AND [id number] 20:59:00 Test Item Value Reference Range Interpretation Comments UA Bacteria (test code = UA Many /HPF Bacteria) [facility] [id number] 20:59:00 Test Item Value Reference Range Interpretation Comments UA Mucus (test code = UA Mucus) Many /LPF [facility] [id number] 20:59:00 Test Item Value Reference Range Interpretation Comments UA Hyal Cast (test 49 See_Comment [Automat ed message] The code = UA Hyal Cast) system which generated this result transmit afshin reference range : <=2. The reference range was not used to interpr et this result as modesto l/abnormal. [facility] [id number] 20:59:00 Test Item Value Reference Range Interpretation Comments Culture: Urine >100,000 CFU/mL Gram (test code = Negative Rods Culture: Urine) Identification And Sensitivity Pending [facility]2021-02-28 19:51:00 Test Item Value Reference Range Interpretation Comments Glucose Lvl (test code = Glucose Lvl) 91 70-99 [facility]2021-02-28 19:51:00 Test Item Value Reference Range Interpretation Comments BUN (test code = BUN) 14 7-22 [facility]2021-02-28 19:51:00 Test Item Value Reference Range Interpretation Comments Creatinine Lvl (test code = Creatinine 0.68 0.50-1.40 Lvl) [facility]2021-02-28 19:51:00 Test Item Value Reference Range Interpretation Comments Sodium Lvl (test code = Sodium Lvl) 130 135-145 [facility]2021-02-28 19:51:00 Test Item Value Reference Range Interpretation Comments Potassium Lvl (test code = Potassium 4.1 3.5-5.1 Lvl) [facility]2021-02-28 19:51:00 Test Item Value Reference Range Interpretation Comments Chloride Lvl (test code = Chloride Lvl) 95 95-109 [facility]2021-02-28 19:51:00 Test Item Value Reference Range Interpretation Comments CO2 (test code = CO2) 32 24-32 [facility]2021-02-28 19:51:00 Test Item Value Reference Range Interpretation Comments Calcium Lvl (test code = Calcium Lvl) 8.7 8.5-10.5 [facility]2021-02-28 19:51:00 Test Item Value Reference Range Interpretation Comments Total Protein (test code = Total 7.4 6.4-8.4 Protein) [facility] [id number] 19:51:00 Test Item Value Reference Range Interpretation Comments Albumin Lvl (test code = Albumin Lvl) 3.2 3.5-5.0 [facility] [id number] 19:51:00 Test Item Value Reference Range Interpretation Comments ALT (test code = ALT) 37 See_Comment [Auto mated message] The system which ge nerated this result transmit afshin reference range : <=65. The reference range was not used to interpr et this result as modesto l/abnormal. [facility] [employer] [id number] 19:51:00 Test Item Value Reference Range Interpretation Comments AST (test code = AST) 48 See_Comment [Auto mated message] The system which ge nerated this result transmit afshin reference range : <=37. The reference range was not used to interpr et this result as modesto l/abnormal. [facility] [employer] [id number] 19:51:00 Test Item Value Reference Range Interpretation Comments Alk Phos (test code = Alk Phos) 72 39-136 [facility] [id number] 19:51:00 Test Item Value Reference Range Interpretation Comments Bili Total (test code = Bili Total) 0.4 0.2-1.3 [facility] [id number] 19:51:00 Test Item Value Reference Range Interpretation Comments AGAP (test code = AGAP) 7.1 10.0-20.0 [facility] [id number] 19:51:00 Test Item Value Reference Range Interpretation Comments B/C Ratio (test code = B/C Ratio) 21 1 6-25 [facility] [id number] 19:51:00 Test Item Value Reference Range Interpretation Comments Globulin (test code = Globulin) 4.2 2.7-4.2 [facility] [id number] 19:51:00 Test Item Value Reference Range Interpretation Comments A/G Ratio (test code = A/G Ratio) 0.8 1 0.7-1.6 [id number] 19:51:00 Test Item Value Reference Range Interpretation Comments eGFR (test code = eGFR) 114 [facility]2021-02-28 19:51:00 Test Item Value Reference Range Interpretation Comments Lipase Lvl (test code = Lipase Lvl) 4020 63-393 [facility]2021-02-28 19:51:00 Test Item Value Reference Range Interpretation Comments Ammonia (test code = Ammonia) 24.0 [facility]2021-02-28 19:51:00 Test Item Value Reference Range Interpretation Comments Lactic Acid Lvl (test code = Lactic 2.6 0.5-2.2 Acid Lvl) [place] [id number] 19:51:00 Test Item Value Reference Range Interpretation Comments S Preg (test code = S Negative *NA*(09/13/20 Preg) 1:51 PM) [place] [id number] 19:51:00 Test Item Value Reference Range Interpretation Comments WBC (test code = WBC) 7.5 3.7-10.4 [facility] TylerLtvptapFHYKLHFXEN4094-69-57 19:51:00 Test Item Value Reference Range Interpretation Comments RBC (test code = RBC) 4.01 4.20-5.40 [facility] TylerQumloxnYSMTBERVSB9462-54-03 19:51:00 Test Item Value Reference Range Interpretation Comments Hgb (test code = Hgb) 7.8 12.0-16.0 [facility] TylerDnekssgBUDOJDMCLZ5051-97-77 19:51:00 Test Item Value Reference Range Interpretation Comments Hct (test code = Hct) 24.9 36.0-48.0 [facility] TylerUfayymnWLZUYRKTIX2571-45-07 19:51:00 Test Item Value Reference Range Interpretation Comments MCV (test code = MCV) 62.2 80.0-98.0 [facility] TylerZeaksxnAQLDARULCC9441-34-93 19:51:00 Test Item Value Reference Range Interpretation Comments MCH (test code = MCH) 19.6 pg 27.0-31.0 [facility] TylerOzuvybkBOFUFRSMNK2878-76-90 19:51:00 Test Item Value Reference Range Interpretation Comments MCHC (test code = MCHC) 31.5 32.0-36.0 [facility] TylerCimtuztYYWWZQELQK6002-79-64 19:51:00 Test Item Value Reference Range Interpretation Comments RDW (test code = RDW) 22.6 11.5-14.5 [place] 725081-02-28 19:51:00 Test Item Value Reference Range Interpretation Comments Platelet (test code = Platelet) 277 133-450 [facility] TylerXygjkjyCNXKACBIDW8826-70-10 19:51:00 Test Item Value Reference Range Interpretation Comments MPV (test code = MPV) 8.1 7.4-10.4 [place] 725081-02-28 19:51:00 Test Item Value Reference Range Interpretation Comments RBC Morph (test code = See Note (09/13/20 1:51 RBC Morph) PM) [facility] TylerRgdradcWMYTKQWXAP4378-93-59 19:51:00 Test Item Value Reference Range Interpretation Comments Plt Morph (test code = Normal (09/13/20 1:51 Plt Morph) PM) [facility] TylerIoqjvjfPSNAQEJJAM7577-53-05 19:51:00 Test Item Value Reference Range Interpretation Comments Segs (test code = Segs) 75.9 45.0-75.0 [facility] TylerMcjauymYTDCRPEGJE1744-00-76 19:51:00 Test Item Value Reference Range Interpretation Comments Lymphocytes (test code = Lymphocytes) 13.6 20.0-40.0 [place] 725081-02-28 19:51:00 Test Item Value Reference Range Interpretation Comments Monocytes (test code = Monocytes) 7.4 2.0-12.0 [facility] TylerFzrgkhtKBIJGIEKSM3736-12-47 19:51:00 Test Item Value Reference Range Interpretation Comments Eosinophils (test code = 2.6 See_Comment [A utomated message] The Eosinophils) system which ge nerated this result tra nsmitted reference range : <=4.0. The reference r yvonne was not used to int erpret this result as normal/abnormal . [facility] TylerUmunkhoVTPXEYUKPL5298-60-62 19:51:00 Test Item Value Reference Range Interpretation Comments Basophils (test code = 0.5 See_Comment [Aut omated message] The Basophils) system which ge nerated this result tra nsmitted reference range : <=1.0. The reference r yvonne was not used to int erpret this result as normal/abnormal . [place] 725081-02-28 19:51:00 Test Item Value Reference Range Interpretation Comments Neutrophils # (test code = Neutrophils 5.7 1.5-8.1 #) [facility] TylerUgimykcDGGUBXQJMF1626-92-95 19:51:00 Test Item Value Reference Range Interpretation Comments Lymphocytes # (test code = Lymphocytes 1.0 1.0-5.5 #) [facility] TylerWuonecfEKPNMUVWIV0264-37-58 19:51:00 Test Item Value Reference Range Interpretation Comments Monocytes # (test code 0.6 See_Comment [Aut omated message] The = Monocytes #) system which generated this result tra nsmitted reference range : <=0.8. The reference r yvonne was not used to int erpret this result as normal/abnormal . [facility] TylerJirxihyUOMJLIHNBZ0043-53-79 19:51:00 Test Item Value Reference Range Interpretation Comments Eosinophils # (test code 0.2 See_Comment [A utomated message] The = Eosinophils #) system whic h generated this result tra nsmitted reference range : <=0.5. The reference r yvonne was not used to int erpret this result as normal/abnormal . [facility] TylerSetmloyRHPOPDYHUJ9471-25-64 19:51:00 Test Item Value Reference Range Interpretation Comments Anisocyte (test code = 2+ *ABN*(09/13/20 Anisocyte) 1:51 PM) [place] 725081-02-28 19:51:00 Test Item Value Reference Range Interpretation Comments Microcyte (test code = 2+ *ABN*(09/13/20 Microcyte) 1:51 PM) [place] 725081-02-28 19:51:00 Test Item Value Reference Range Interpretation Comments Hypochrom (test code = 1+ (09/13/20 1:51 PM) Hypochrom) [place] 050791-02-28 19:51:00 Test Item Value Reference Range Interpretation Comments Glucose Lvl (test code = Glucose Lvl) 91 70-99 [place] 050791-02-28 19:51:00 Test Item Value Reference Range Interpretation Comments BUN (test code = BUN) 14 7-22 [place] 050791-02-28 19:51:00 Test Item Value Reference Range Interpretation Comments Creatinine Lvl (test code = Creatinine 0.68 0.50-1.40 Lvl) [facility]2021-02-28 19:51:00 Test Item Value Reference Range Interpretation Comments Sodium Lvl (test code = Sodium Lvl) 130 135-145 [place] 050791-02-28 19:51:00 Test Item Value Reference Range Interpretation Comments Potassium Lvl (test code = Potassium 4.1 3.5-5.1 Lvl) [place] 050791-02-28 19:51:00 Test Item Value Reference Range Interpretation Comments Chloride Lvl (test code = Chloride Lvl) 95 95-109 [place] 050791-02-28 19:51:00 Test Item Value Reference Range Interpretation Comments CO2 (test code = CO2) 32 24-32 [place] 050791-02-28 19:51:00 Test Item Value Reference Range Interpretation Comments Calcium Lvl (test code = Calcium Lvl) 8.7 8.5-10.5 [place] 050791-02-28 19:51:00 Test Item Value Reference Range Interpretation Comments Total Protein (test code = Total 7.4 6.4-8.4 Protein) [place] 050791-02-28 19:51:00 Test Item Value Reference Range Interpretation Comments Albumin Lvl (test code = Albumin Lvl) 3.2 3.5-5.0 [place] 050791-02-28 19:51:00 Test Item Value Reference Range Interpretation Comments ALT (test code = ALT) 37 See_Comment [Auto mated message] The system which ge nerated this result transmit afshin reference range : <=65. The reference range was not used to interpr et this result as modesto l/abnormal. [place] 050791-02-28 19:51:00 Test Item Value Reference Range Interpretation Comments AST (test code = AST) 48 See_Comment [Auto mated message] The system which ge nerated this result transmit afshin reference range : <=37. The reference range was not used to interpr et this result as modesto l/abnormal. [place] 050791-02-28 19:51:00 Test Item Value Reference Range Interpretation Comments Alk Phos (test code = Alk Phos) 72 39-136 [place] 050791-02-28 19:51:00 Test Item Value Reference Range Interpretation Comments Bili Total (test code = Bili Total) 0.4 0.2-1.3 [place] 050791-02-28 19:51:00 Test Item Value Reference Range Interpretation Comments AGAP (test code = AGAP) 7.1 10.0-20.0 [facility]2021-02-28 19:51:00 Test Item Value Reference Range Interpretation Comments B/C Ratio (test code = B/C Ratio) 21 1 6-25 [place] 050791-02-28 19:51:00 Test Item Value Reference Range Interpretation Comments Globulin (test code = Globulin) 4.2 2.7-4.2 [facility]2021-02-28 19:51:00 Test Item Value Reference Range Interpretation Comments A/G Ratio (test code = A/G Ratio) 0.8 1 0.7-1.6 [place] 050791-02-28 19:51:00 Test Item Value Reference Range Interpretation Comments eGFR (test code = eGFR) 114 [place] 050791-02-28 19:51:00 Test Item Value Reference Range Interpretation Comments Lipase Lvl (test code = Lipase Lvl) 4023 59-393 [facility]2021-02-28 19:51:00 Test Item Value Reference Range Interpretation Comments Ammonia (test code = Ammonia) 24.0 [place] 050791-02-28 19:51:00 Test Item Value Reference Range Interpretation Comments Lactic Acid Lvl (test code = Lactic 2.6 0.5-2.2 Acid Lvl) [place] 38395021-02-28 19:51:00 Test Item Value Reference Range Interpretation Comments S Preg (test code = S Negative *NA*(09/13/20 Preg) 1:51 PM) [place] 725081-02-28 19:51:00 Test Item Value Reference Range Interpretation Comments WBC (test code = WBC) 7.5 3.7-10.4 [place] 725081-02-28 19:51:00 Test Item Value Reference Range Interpretation Comments RBC (test code = RBC) 4.01 4.20-5.40 [place] 725081-02-28 19:51:00 Test Item Value Reference Range Interpretation Comments Hgb (test code = Hgb) 7.8 12.0-16.0 [place] 725081-02-28 19:51:00 Test Item Value Reference Range Interpretation Comments Hct (test code = Hct) 24.9 36.0-48.0 [facility] TylerWlvwpmaOOURKEKJBF2195-87-72 19:51:00 Test Item Value Reference Range Interpretation Comments MCV (test code = MCV) 62.2 80.0-98.0 [facility] TylerHownwnvULXPAIDZLW6957-25-08 19:51:00 Test Item Value Reference Range Interpretation Comments MCH (test code = MCH) 19.6 pg 27.0-31.0 [facility] TylerVqfuqqzZXQUJBSZJU0934-59-41 19:51:00 Test Item Value Reference Range Interpretation Comments MCHC (test code = MCHC) 31.5 32.0-36.0 [facility] TylerJouxcrzBQFSJYPZSB3917-05-10 19:51:00 Test Item Value Reference Range Interpretation Comments RDW (test code = RDW) 22.6 11.5-14.5 [facility] TylerFtjtaifOLHMIWEQAS2075-32-53 19:51:00 Test Item Value Reference Range Interpretation Comments Platelet (test code = Platelet) 277 133-450 [facility] TylerXyhexdzLASFQJYEWL2275-71-72 19:51:00 Test Item Value Reference Range Interpretation Comments MPV (test code = MPV) 8.1 7.4-10.4 [facility] TylerNjmuqszGEHNSLHUXH6529-28-75 19:51:00 Test Item Value Reference Range Interpretation Comments RBC Morph (test code = See Note (09/13/20 1:51 RBC Morph) PM) [facility] TylerGatyszrZKUKAUHZVI5798-34-03 19:51:00 Test Item Value Reference Range Interpretation Comments Plt Morph (test code = Normal (09/13/20 1:51 Plt Morph) PM) [facility] TylerYutivxjSOOMGOBJFO1384-28-46 19:51:00 Test Item Value Reference Range Interpretation Comments Segs (test code = Segs) 75.9 45.0-75.0 [facility] TylerPtxatxmGIWMZMFKYO8507-72-73 19:51:00 Test Item Value Reference Range Interpretation Comments Lymphocytes (test code = Lymphocytes) 13.6 20.0-40.0 [facility] TylerSgbnbjoPUUQOLLHCJ2849-32-65 19:51:00 Test Item Value Reference Range Interpretation Comments Monocytes (test code = Monocytes) 7.4 2.0-12.0 [facility] TylerEhchzrzMFBSPTWYGT1519-26-93 19:51:00 Test Item Value Reference Range Interpretation Comments Eosinophils (test code = 2.6 See_Comment [A utomated message] The Eosinophils) system which ge nerated this result tra nsmitted reference range : <=4.0. The reference r yvonne was not used to int erpret this result as normal/abnormal . [facility] TylerUrrrnibYUKGSQCZZE6105-00-76 19:51:00 Test Item Value Reference Range Interpretation Comments Basophils (test code = 0.5 See_Comment [Aut omated message] The Basophils) system which ge nerated this result tra nsmitted reference range : <=1.0. The reference r yvonne was not used to int erpret this result as normal/abnormal . [facility] TylerBnetzarVTZHOBPIES2638-03-66 19:51:00 Test Item Value Reference Range Interpretation Comments Neutrophils # (test code = Neutrophils 5.7 1.5-8.1 #) [facility] TylerAltyimpEIXSKSDJAC5048-01-71 19:51:00 Test Item Value Reference Range Interpretation Comments Lymphocytes # (test code = Lymphocytes 1.0 1.0-5.5 #) [facility] TylerYefwkurUMHGOFTRIB8106-52-34 19:51:00 Test Item Value Reference Range Interpretation Comments Monocytes # (test code 0.6 See_Comment [Aut omated message] The = Monocytes #) system which generated this result tra nsmitted reference range : <=0.8. The reference r yvonne was not used to int erpret this result as normal/abnormal . [facility] TylerDfeakwfOXSDNDTQKU9921-71-75 19:51:00 Test Item Value Reference Range Interpretation Comments Eosinophils # (test code 0.2 See_Comment [A utomated message] The = Eosinophils #) system ic h generated this result tra nsmitted reference range : <=0.5. The reference r yvonne was not used to int erpret this result as normal/abnormal . [facility] TylerLdbmkwsPDUDRRLZCF8870-96-10 19:51:00 Test Item Value Reference Range Interpretation Comments Anisocyte (test code = 2+ *ABN*(09/13/20 Anisocyte) 1:51 PM) [facility] TylerOziqnjyECCEMPGTYV4577-32-81 19:51:00 Test Item Value Reference Range Interpretation Comments Microcyte (test code = 2+ *ABN*(09/13/20 Microcyte) 1:51 PM) [place] 725081-02-28 19:51:00 Test Item Value Reference Range Interpretation Comments Hypochrom (test code = 1+ (09/13/20 1:51 PM) Hypochrom) [facility]
--- NOTE | 2022-04-06 12:45 | RAD REPORT ---
EXAM DESCRIPTION: RAD - Elbow Right 3 View - 04/06/2022 12:37 pm CLINICAL HISTORY: PAIN COMPARISON: No comparisons FINDINGS: No fracture or dislocation seen.
--- NOTE | 2022-04-06 13:00 | RAD REPORT ---
EXAM DESCRIPTION: CT - CTHCSPWOC - 04/06/2022 12:49 pm CLINICAL HISTORY: Trauma, head and neck injury. head injury, neck pain COMPARISON: No comparisons TECHNIQUE: Axial 5 mm thick images of the head were obtained. Axial 2 mm thick images of the cervical spine were obtained with sagittal and coronal reconstruction images generated and reviewed. All CT scans are performed using dose optimization technique as appropriate and may include automated exposure control or mA/KV adjustment according to patient size. FINDINGS: CT HEAD WITHOUT CONTRAST: No acute hemorrhage, hydrocephalus or extra-axial collection is identified.Mild brain atrophy.No area s of brain edema or midline shift. The paranasal sinuses and mastoids are clear.The calvarium is intact. CT CERVICAL SPINE WITHOUT CONTRAST: No fracture or subluxation.No prevertebral soft tissues swelling is identified. IMPRESSION: No acute intracranial or cervical spine findings.
--- NOTE | 2022-04-06 13:02 | RAD REPORT ---
EXAM DESCRIPTION: CT - Abdomen Pelvis Wo Contrast - 04/06/2022 12:49 pm CLINICAL HISTORY: Abdominal pain. abdominal pain, swelling COMPARISON: Head C Spine Mpr Wo Con dated 04/06/2022; Abdomen Pelvis Wo Contrast dated 03/30/2022 TECHNIQUE: CT imaging of the abdomen and pelvis was performed without contrast. Solid organ, bowel a nd vascular assessment is limited due to lack of IV and oral contrast. All CT scans are performed using dose optimization technique as appropriate and may include automated exposure control or mA/KV adjustment according to patient size. FINDINGS: The lower lung ramirez are clear. Liver is prominent in size with diffuse fatty infiltration. Subtle nodularity of liver contour likely indicates cirrhosis.Spleen is normal sized. Cholelithiasis. Pancreas, adrenal glands and kidneys arturo w acute finding. Mild ascites is present. Thickening of the colon is noted throughout the majority of its course sugg esting portal colopathy. The osseous structures are within normal limits. IMPRESSION: Fatty liver infiltration with a early/ mild cirrhosis suspected. Mild ascites. Cholelithiasis. Portal colopathy. A limited non-contrast examination was performed as detailed.
[2022-04-06 13:53] LABS: Albumin 2.6 g/dL (3.4-5.0); Bilirubin Total 3.6 mg/dL (0.2-1.0); Protein, Total 6.5 g/dL (6.4-8.2); Troponin High Sensitivity 6.4 pg/mL (<58.9)
[2022-04-06 13:55] LABS: Potassium 2.9 mmol/L (3.5-5.1)
[2022-04-06 14:37] LABS: Absolute Lymphocytes (CBC) 1.2 K/uL (0.7-4.9); Hematocrit 26.2 % (36.0-45.0); MCV 101.4 fL (80-100); MPV 7.5 fL (7.6-11.3); RBC Red Blood Cell Count 2.59 M/uL (3.86-4.86)
[2022-04-06 14:38] LABS: SARS-CoV-2 Antigen Rapid Res Negative (Negative)
[2022-04-06] MEDS ORDERED: ONDANSETRON 4 MG/2 ML VIAL ONE (14:46)
[2022-04-06] MEDS ORDERED: POTASSIUM 25 MEQ EFFERV TAB ONE (14:46)
[2022-04-06] MEDS ORDERED: NA CHLORIDE 0.9% 500 ML ONE ×2 (14:46→15:33)
[2022-04-06] MEDS ORDERED: NA CHLORIDE 0.9% 100 ML ONE (15:33)
[2022-04-06] MEDS ORDERED: NA CHLORIDE 0.9% 1,000 ML ONE (15:33)
[2022-04-06] MEDS ORDERED: CEFEPIME 1 GM/VIAL ONE (15:33)
[2022-04-06] MEDS ORDERED: FENTANYL CITR 100 MCG/2 ML ONE (16:10)
[2022-04-06 16:21] LABS: Protime INR 1.85
--- NOTE | 2022-04-06 16:42 | EDPHYS ---
Physician Documentation [facility] Name: Divina Collazo Age: 36 yrs Sex: Female : 1985 Arrival Date: 04/06/2022 Time: 11:42 Bed 8 Private MD: JORDI Physician Marbin Corea HPI: 04/06 12:25 This 36 yrs old Female presents to ER via EMS with complaints of Abdominal Swelling, cp Abdominal Pain. 12:25 The patient presents with abdominal pain that is diffuse, abdominal distention that is cp diffuse. Onset: The symptoms/episode began/occurred chronically. The symptoms do not radiate. Associated signs and symptoms: Pertinent negatives: chest pain, constipation, diarrhea, fever, shortness of breath, vomiting. The symptoms are described as constant. Patient reports open wound to coccyx area. Historical: - Allergies: 11:51 Darvocet-N 100; ss - PMHx: 11:51 cirrhosis of liver; diabetes mellitus; Enlarged Heart; Hypertensive disorder; ss - PSHx: 11:51 section; ss - Social history:: Smoking status: Patient denies any tobacco usage or history of. ROS: 12:30 Constitutional: Negative for body aches, chills, fever, poor PO intake. cp 12:30 Eyes: Negative for injury, pain, redness, and discharge. cp 12:30 ENT: Negative for drainage from ear(s), ear pain, sore throat. 12:30 Cardiovascular: Positive for edema, Negative for chest pain, palpitations. 12:30 Respiratory: Negative for cough, shortness of breath, wheezing. 12:30 Abdomen/GI: Positive for abdominal pain, abdominal distension, Negative for vomiting, diarrhea, constipation, black/tarry stool, rectal bleeding. 12:30 Skin: Positive for of the coccyx area, open wound. 12:30 Neuro: Negative for altered mental status, headache, weakness. 12:30 All other systems are negative. Exam: 12:35 Constitutional: The patient appears in no acute distress, alert, awake, cp non-diaphoretic, non-toxic, well developed, well nourished, uncomfortable. 12:35 Head/Face: Normocephalic, atraumatic. cp 12:35 Eyes: Periorbital structures: appear normal, Conjunctiva: normal, no exudate, no injection, Sclera: no appreciated abnormality, Lids and lashes: appear normal, bilaterally. 12:35 ENT: External ear(s): are unremarkable, Nose: is normal, Mouth: Lips: moist, Oral mucosa: pink and intact, moist, Posterior pharynx: Airway: no evidence of obstruction, patent, swelling, is not appreciated, erythema, is not appreciated, exudate, is not appreciated. 12:35 Neck: ROM/movement: is normal, is supple, without pain, no range of motions limitations, no nuchal rigidity. 12:35 Chest/axilla: Inspection: normal, Palpation: is normal, no crepitus, no tenderness. 12:35 Cardiovascular: Rate: tachycardic, Rhythm: regular, Edema: pedal edema, that is moderate, JVD: is not appreciated. 12:35 Respiratory: the patient does not display signs of respiratory distress, Respirations: normal, no use of accessory muscles, no retractions, labored breathing, is not present, Breath sounds: are clear throughout, no decreased breath sounds, no stridor, no wheezing. 12:35 Back: CVA tenderness, is absent. 12:35 Skin: silver dollar size open wound with mild purulent drainage noted coccyx area, marked tenderness to palpation. 12:35 Neuro: Orientation: to person, place \T\ time. Mentation: is normal, Motor: moves all fours, strength is normal, Sensation: is normal. 15:18 Abdomen/GI: Rectal exam: Stool: sierra, guaiac negative. cp 15:20 ECG was reviewed by the Attending Physician. cp Vital Signs: 11:49 BP 102 / 52; Pulse 69; Resp 18; Temp 98.5(TE); Pulse Ox 100% on R/A; ss 12:12 BP 90 / 58; Pulse 105; Resp 18; Pulse Ox 100% on R/A; iw 14:06 BP 102 / 67; Pulse 78; Resp 18; Temp 98.2(O); Pulse Ox 92% on R/A; Weight 50.8 kg; Pain eh3 9/10; 15:13 BP 73 / 56; Pulse 93; Resp 18; Temp 98.0(O); Pulse Ox 96% on R/A; Pain 9/10; eh3 15:21 Weight 50.8 kg; ld1 16:00 BP 106 / 62; Pulse 89; Resp 18; Pulse Ox 100% on R/A; eh3 17:00 BP 94 / 58; Pulse 80; Resp 13; Pulse Ox 100% on R/A; eh3 18:00 BP 108 / 60; Pulse 78; Resp 14; Pulse Ox 100% on R/A; eh3 18:43 BP 112 / 67; Pulse 83; Resp 16; Pulse Ox 100% on R/A; eh3 MDM: 12:40 Patient medically screened. [facility] 15:30 Physician consultation: Eric Medinajen was contacted at 15:25, regarding admission, to the telemetry unit. patient's condition, wants fluids discontinued at this time. Patient has received total of 250 mL bolus. Will see patient in ED for evaluation. 15:35 Data reviewed: vital signs, nurses notes, lab test result(s), EKG, radiologic studies, cp CT scan, plain films. 15:35 Test interpretation: by ED physician or midlevel provider: ECG, plain radiologic cp studies. Counseling: I had a detailed discussion with the patient and/or guardian regarding: the historical points, exam findings, and any diagnostic results supporting the discharge/admit diagnosis, lab results, radiology results, the need for further work-up and treatment in the hospital. Response to treatment: the patient's symptoms have mildly improved after treatment. 04/06 12:17 Order name: CBC with Diff; Complete Time: 14:56 [facility] 04/06 14:56 Interpretation: Normal except: RBC 2.59; HGB 8.8; HCT 26.2; MCV 101.4; PLT 134; RDW cp 17.5; MPV 7.5. 04/06 12:17 Order name: CMP; Complete Time: 14:00 [facility] 04/06 14:00 Interpretation: Normal except: NA 133; K 2.9; CL 95; GLUC 130; BUN 4; CRE 0.53; AST 84; cp ALK 157; BILIT 3.6; ALB 2.6; GLOB 3.9; A/G 0.7. 04/06 12:17 Order name: Lipase; Complete Time: 14:00 [facility] 04/06 12:17 Order name: Troponin High Sensitivity; Complete Time: 14:00 [facility] 04/06 12:18 Order name: AMMONIA; Complete Time: 14:00 [facility] 04/06 14:00 Interpretation: Abnormal: INOCENTE 75. 04/06 13:28 Order name: UDS 04/06 13:49 Order name: Lactate; Complete Time: 14:56 04/06 14:57 Interpretation: Abnormal: LAC 5.2. 04/06 13:49 Order name: Procalcitonin; Complete Time: 15:21 04/06 13:49 Order name: Wound Culture 04/06 13:49 Order name: Blood Culture Adult (2) 04/06 13:49 Order name: CRP; Complete Time: 14:56 04/06 13:49 Order name: ESR; Complete Time: 14:56 04/06 13:52 Order name: SARS RAPID; Complete Time: 14:56 04/06 14:00 Order name: BNP 04/06 12:18 Order name: CT Head C Spine [facility] 04/06 12:18 Order name: Elbow Right 3 View XRAY [facility] 04/06 12:19 Order name: CT Abd/Pelvis - Without Cont (PO Contrast Only) [facility] 04/06 14:56 Order name: NT PRO-BNP; Complete Time: 14:56 [facility] 04/06 16:22 Order name: Protime (+INR) [facility] 04/06 16:22 Order name: PTT, Activated Partial Thromb [facility] 04/06 16:34 Order name: Acetaminophen Level [facility] 04/06 17:14 Order name: Urine Dipstick-Ancillary [facility] 04/06 17:15 Order name: Urine --Ancillary (enter results) 04/06 17:20 Order name: Urine --Ancillary [facility] 04/06 17:31 Order name: Type and Screen [facility] 04/06 18:18 Order name: Lactate Sepsis 2 HR Follow-up [facility] 04/06 12:17 Order name: IV Saline Lock; Complete Time: 14:32 [facility] 04/06 12:17 Order name: Labs collected and sent; Complete Time: 14:32 [facility] 04/06 12:17 Order name: Urine Dipstick-Ancillary (obtain specimen); Complete Time: 17:02 [facility] 04/06 12:45 Order name: RAD; Complete Time: 13:25 [facility] 04/06 13:00 Order name: CT; Complete Time: 13:25 [facility] 04/06 13:06 Order name: CT; Complete Time: 13:25 EDMS 04/06 13:28 Order name: Urine Test (obtain specimen); Complete Time: 17:02 cp 04/06 13:28 Order name: Misc. Order: have patient change into gown; Complete Time: 14:00 cp 04/06 14:02 Order name: EKG; Complete Time: 14:02 cp 04/06 14:02 Order name: EKG - Nurse/Tech; Complete Time: 15:07 cp 04/06 14:02 Order name: Labs - recollect needed: recollect lavender top; Complete Time: 14:32 bd 04/06 15:02 Order name: Vital Signs: please update to include temp; Complete Time: 15:27 cp EC:20 Rate is 97 beats/min. Rhythm is regular. [place] interval is normal. QRS interval is normal. cp QT interval is normal. T waves are Inverted in lead aVR. Interpreted by me. Reviewed by me. Administered Medications: 14:06 Drug: Zofran (Ondansetron) 4 mg Route: IVP; Site: left antecubital; eh3 15:50 Follow up: Response: Nausea is decreased eh3 14:06 Drug: NS 0.9% 500 ml Route: IV; Rate: bolus; Site: left antecubital; eh3 19:08 Follow up: IV Status: Completed infusion; IV Intake: 1000ml eh3 15:07 Drug: Potassium Effervescent Tablet 50 mEq Route: PO; eh3 15:13 Follow up: Response: No adverse reaction eh3 15:22 Not Given (Physician Discretion): NS 0.9% (30 ml/kg) 30 ml/kg IV at bolus once; Sepsis cp Protocol 15:55 CANCELLED (Duplicate Order): fentaNYL (PF) 25 mcg IVP once eh3 15:58 Drug: Cefepime 1 grams Route: IVPB; Rate: 200 ml/hr; Infused Over: 30 mins; Site: left ld1 wrist; 17:00 Follow up: Response: No adverse reaction; IV Status: Infusion continued ld1 16:54 Drug: vancoMYCIN 1 grams Route: IVPB; Infused Over: 2 hrs; Site: left wrist; ld1 19:07 Follow up: Response: No adverse reaction; IV Status: Completed infusion; IV Intake: eh3 250ml 18:51 Not Given (Pt blood pressure too loww): fentaNYL (PF) 25 mcg IVP once eh3 Disposition Summary: 04/06/22 16:41 Hospitalization Ordered Hospitalization Status: Inpatient Admission cp Provider: Eric Schaeffer cp Location: Telemetry/MedSurg (Inpatient) cp Condition: Stable cp Problem: new cp Symptoms: have improved cp Bed/Room Type: Standard cp Room Assignment: 430(04/06/22 19:47) dw Diagnosis - Cellulitis of back [any part except buttock] - coccyx cp Forms: - Medication Reconciliation Form cp - SBAR form cp Signatures: Dispatcher [employer] EDMS Angelita Valenzuela Diana RN RN dw Diomedes Echevarria PA PA jmm Smirch, Shelby RN RN ss Marbin Hurt PA PA cp Dibbern, Lauren, RN RN ld1 Yamile Beavers RN RN eh3 Corrections: (The following items were deleted from the chart) 15:28 15:18 TYPE AND SCREEN+BB.LAB.BRZ ordered. EDMS EDMS 15:28 15:18 PROTIME (+INR)+COAG.LAB.BRZ ordered. EDMS EDMS 15:28 15:18 PTT, ACTIVATED+COAG.LAB.BRZ ordered. EDMS EDMS 15:28 15:18 ACETAMINOPHEN+C.LAB.BRZ ordered. EDMS EDMS 15:55 15:55 fentaNYL (PF) 25 mcg IVP once ordered. eh3 eh3 19:47 16:41 cp dw 21:57 21:53 ECG was reviewed by the Attending Physician. cp cp
--- NOTE | 2022-04-06 16:42 | ER ---
Nurse's Notes [facility] Name: Divina Collazo Age: 36 yrs Sex: Female : 1985 Arrival Date: 04/06/2022 Time: 11:42 Bed 8 Private MD: Diagnosis: Cellulitis of back [any part except buttock]-coccyx Presentation: 04/06 11:48 Chief complaint: Patient states: I have pus and blood coming out of my feet , I have iw liver disease , last paracentesis was 2 weeks ago , I have a wound on my backside. 11:49 Chief complaint: Patient states: Pt told EMS, "I have liver failure. I want to be ss admitted.". Coronavirus screen: Client denies travel out of the [place] in the last 14 days. Ebola Screen: Patient denies exposure to infectious person. Patient denies travel to an Ebola-affected area in the 21 days before illness onset. Initial Sepsis Screen: Does the patient meet any 2 criteria? No. Patient's initial sepsis screen is negative. Initial Sepsis Screen: Does the patient have a suspected source of infection?. Risk Assessment: Do you want to hurt yourself or someone else? Patient reports no desire to harm self or others. Onset of symptoms is unknown. 11:49 Method Of Arrival: EMS: [facility] 11:49 Acuity: GABBY 3 Historical: - Allergies: 11:51 Darvocet-N 100; ss - PMHx: 11:51 cirrhosis of liver; diabetes mellitus; Enlarged Heart; Hypertensive disorder; ss - PSHx: 11:51 section; ss - Social history:: Smoking status: Patient denies any tobacco usage or history of. Screenin:13 Abuse screen: Denies threats or abuse. Denies injuries from another. Nutritional eh3 screening: very thin and frail, states "I am homeless and I don't get enough to eat". Tuberculosis screening: No symptoms or risk factors identified. Fall Risk Fall in past 12 months (25 points). Secondary diagnosis (15 points) IV access (20 points). Ambulatory Aid- None/Bed Rest/Nurse Assist (0 pts). Gait- Weak (10 pts.). Mental Status- Oriented to own ability (0 pts). Total Lange Fall Scale indicates High Risk Score (45 or more points). Fall prevention measures have been instituted. Side Rails Up X 2 Placed Close to Nursing Station Frequent Obs/Assessments Occuring As available patient and family educated on Fall Prevention Program and Strategies. Assessment: 13:45 General: Appears distressed, uncomfortable, Behavior is cooperative, appropriate for eh3 age, anxious. Pain: Complains of pain in gluteal cleft and right gluteus jesika Pain does not radiate. Pain currently is 8 out of 10 on a pain scale. Quality of pain is described as sharp, Pain began gradually, Is continuous, Alleviated by repositioning, Aggravated by increased activity, weight bearing. Neuro: Level of Consciousness is awake, alert, obeys commands, Oriented to person, place, time, situation. Cardiovascular: Capillary refill < 3 seconds Patient's skin is warm and dry. Respiratory: Airway is patent Respiratory effort is even, unlabored. GI: Abdomen is round distended, Bowel sounds present X 4 quads. Abd is non tender X 4 quads Abd is rigid X 4 quads. : No signs and/or symptoms were reported regarding the genitourinary system. 13:45 Derm: 3+ pitting edema in BLE. 10mm diameter wound in sacral area. Opaque yellow in the eh3 center, pink around perimeter. 15:00 Reassessment: Patient and/or family updated on plan of care and expected duration. Pain eh3 level reassessed. Patient is alert, oriented x 3, equal unlabored respirations, skin warm/dry/pink. 16:00 Reassessment: Patient and/or family updated on plan of care and expected duration. Pain eh3 level reassessed. Patient is alert, oriented x 3, equal unlabored respirations, skin warm/dry/pink. 17:00 Reassessment: Patient and/or family updated on plan of care and expected duration. Pain eh3 level reassessed. Patient is alert, oriented x 3, equal unlabored respirations, skin warm/dry/pink. 19:10 Reassessment: Pt is resting in bed with eyes closed, respirations are even and jb4 unlabored with no s/s of pain or distress noted. Vital Signs: 11:49 BP 102 / 52; Pulse 69; Resp 18; Temp 98.5(TE); Pulse Ox 100% on R/A; ss 12:12 BP 90 / 58; Pulse 105; Resp 18; Pulse Ox 100% on R/A; iw 14:06 BP 102 / 67; Pulse 78; Resp 18; Temp 98.2(O); Pulse Ox 92% on R/A; Weight 50.8 kg; Pain eh3 9/10; 15:13 BP 73 / 56; Pulse 93; Resp 18; Temp 98.0(O); Pulse Ox 96% on R/A; Pain 9/10; eh3 15:21 Weight 50.8 kg; ld1 16:00 BP 106 / 62; Pulse 89; Resp 18; Pulse Ox 100% on R/A; eh3 17:00 BP 94 / 58; Pulse 80; Resp 13; Pulse Ox 100% on R/A; eh3 18:00 BP 108 / 60; Pulse 78; Resp 14; Pulse Ox 100% on R/A; eh3 18:43 BP 112 / 67; Pulse 83; Resp 16; Pulse Ox 100% on R/A; eh3 ED Course: 11:42 Patient arrived in ED. am2 11:51 Triage completed. ss 11:51 Arm band placed on left wrist. ss 12:12 Diomedes Echevarria PA is PHCP. jmm 12:12 Marbin Corea MD is Attending Physician. jmm 13:11 Marbin Hurt PA is PHCP. cp 13:11 Marbin Corea MD is Attending Physician. cp 13:30 AMMONIA Sent. kc6 13:30 Troponin High Sensitivity Sent. kc6 13:30 CBC with Diff Sent. kc6 13:30 CMP Sent. kc6 13:30 Lipase Sent. kc6 13:31 Yamile Beavers, RN is Primary Nurse. eh3 13:45 Patient has correct armband on for positive identification. Placed in gown. Bed in low eh3 position. Call light in reach. Side rails up X2. Client placed on continuous cardiac and pulse oximetry monitoring. NIBP monitoring applied. Door closed. Noise minimized. Lights dimmed. Warm blanket given. Head of bed placed pt on air mattress. 13:45 Cleaned of incontinence. eh3 13:45 No provider procedures requiring assistance completed. eh3 14:12 Wound Culture Sent. ld1 14:16 SARS RAPID Sent. ld1 14:24 Inserted saline lock: 22 gauge in left wrist, using aseptic technique. Blood collected. vg1 16:40 Eric Schaeffer is Hospitalizing Provider. cp 17:05 Ramirez cath inserted, using sterile technique, 16 Fr., by ia, balloon inflated, to eh3 gravity drainage, urine specimen collected. Patient tolerated well. 19:07 Urine --Ancillary (enter results) Sent. eh3 19:12 Blood Culture Adult (2) Sent. tw5 20:40 Patient admitted, IV remains in place. tw5 Administered Medications: 14:06 Drug: Zofran (Ondansetron) 4 mg Route: IVP; Site: left antecubital; eh3 15:50 Follow up: Response: Nausea is decreased eh3 14:06 Drug: NS 0.9% 500 ml Route: IV; Rate: bolus; Site: left antecubital; eh3 19:08 Follow up: IV Status: Completed infusion; IV Intake: 1000ml eh3 15:07 Drug: Potassium Effervescent Tablet 50 mEq Route: PO; eh3 15:13 Follow up: Response: No adverse reaction eh3 15:22 Not Given (Physician Discretion): NS 0.9% (30 ml/kg) 30 ml/kg IV at bolus once; Sepsis cp Protocol 15:55 CANCELLED (Duplicate Order): fentaNYL (PF) 25 mcg IVP once eh3 15:58 Drug: Cefepime 1 grams Route: IVPB; Rate: 200 ml/hr; Infused Over: 30 mins; Site: left ld1 wrist; 17:00 Follow up: Response: No adverse reaction; IV Status: Infusion continued ld1 16:54 Drug: vancoMYCIN 1 grams Route: IVPB; Infused Over: 2 hrs; Site: left wrist; ld1 19:07 Follow up: Response: No adverse reaction; IV Status: Completed infusion; IV Intake: eh3 250ml 18:51 Not Given (Pt blood pressure too loww): fentaNYL (PF) 25 mcg IVP once eh3 Medication: 13:45 VIS not applicable for this client. eh3 Intake: 19:07 IV: 250ml; Total: 250ml. eh3 19:08 IV: 1000ml; Total: 1250ml. eh3 Outcome: 16:41 Decision to Hospitalize by Provider. cp 20:39 Admitted to Med/surg tw5 20:39 Condition: stable 20:39 Instructed on the need for admit. 20:41 Patient left the ED. tw5 Signatures: Diomedes Echevarria PA PA jmm Williams, Irene, RN RN iw Davida Thomas, RN RN ss Marbin Hurt PA PA cp Bryson, James, RN RN jb4 Divina Salazar Victoria RN RN vg1 Etta Alexandre RN RN ld1 Sulema Art tw5 Yamile Beavers RN RN eh3 Shaniqua Lorenz 6 Corrections: (The following items were deleted from the chart) 16:43 13:45 : No signs and/or symptoms were reported regarding the genitourinary system. eh3eh3
[2022-04-06] MEDS ORDERED: NA CHLORIDE 0.9% 250 ML ONE (16:47)
[2022-04-06] MEDS ORDERED: VANCOMYCIN 1 GM/VIAL ONE (16:47)
[2022-04-06 17:14] LABS: Urine Blood Negative (Negative); Urine Glucose Trace (Negative); Urine Protein Negative (Negative)
[2022-04-06 18:04] LABS: Barbiturates NEGATIVE (NEGATIVE); Benzodiazepines NEGATIVE (NEGATIVE); Cocaine NEGATIVE (NEGATIVE); METHAMPHETAM POSITIVE (NEGATIVE); Methadone NEGATIVE (NEGATIVE); Opiates NEGATIVE (NEGATIVE); Phencyclidine NEGATIVE (NEGATIVE); THC Cannibis POSITIVE (NEGATIVE)
--- NOTE | 2022-04-06 18:22 | P.HP ---
Certification for Inpatient Patient admitted to: Inpatient With expected LOS: >2 Midnights Practitioner: I am a practitioner with admitting privileges, knowledge of patient current condition, hospital course, and medical plan of care. Services: Services provided to patient in accordance with Admission requirements found in Title 42 Section 412.3 of the Code of Federal Regulations Patient History Date of Service: 04/06/22 Reason for admission: Increasing abdominal swelling. History of Present Illness: 36-year-old woman with a history of alcoholic liver cirrhosis presented to the emergency department with a complaint of increasing abdominal swelling and lower extremity swelling. Patient was hospitalized 1 week ago for abdominal pain and distention. Paracentesis was done and about 4 L drained. Had paracentesis done at [facility] 3 weeks ago where 5 L was drained. Here in the ED patient blood pressure noted to be soft with systolic in the 90s, lactic acid is elevated to 5. There is a concern for sepsis. Patient has a stage III decubitus ulcer which she developed during prolonged hospitalization at [facility] about 2 months ago. Sepsis protocol initiated in the ED, patient given to resume her normal saline bolus and antibiotics. Patient is admitted for further management. Allergies propoxyphene [From Darvocet-N] Allergy (Verified 02/01/22 05:35) Nausea/Vomiting Home Medications: ARIPiprazole [Abilify Mycite] 10 mg PO BEDTIME 02/01/22 Folic Acid 1 mg PO DAILY 02/01/22 Lactulose 30 ml PO TID 02/01/22 Mvit-Mins/Folic Acid/Soy Isofl [One-A-Day Menopause Formula Tb] 1 tab PO DAILY 02/01/22 Thiamine HCl 100 mg PO DAILY 02/01/22 Trazodone [Desyrel*] 50 mg PO BEDTIME 02/01/22 Smz./Tmp. [Bactrim Ds 800 MG/160 MG*] 1 tab PO BID 10 Days #20 tab 02/03/22 Propranolol [Inderal*] 20 mg PO BID tab 02/28/22 Furosemide [Lasix*] 20 mg PO DAILY #30 tab 03/31/22 Spironolactone [Aldactone*] 50 mg PO DAILY #30 tab 03/31/22 - Past Medical/Surgical History Diabetic: Yes -: Cirrhosis of the liver -: Type 2 Diabetes, Non-Insulin Dependent -: Hypertension -: Alcohol/opioid abuse -: Psychosocial/ Personal History: Patient lives at home with her and children. - Family History Sister Notes: Depression - Social History Alcohol use: Yes CD- Drugs: Yes Caffeine use: Yes Review of Systems Other: Except as documented, all other systems reviewed and negative. Physical Examination - Physical Exam General: Alert, In no apparent distress, Cachectic HEENT: Mucous membr. moist/pink Neck: JVD not distended Respiratory: Clear to auscultation bilaterally, Normal air movement Cardiovascular: Regular rate/rhythm, Normal S1 S2, Edema (Bilateral lower extremities) Gastrointestinal: Normal bowel sounds, No tenderness, Distended Musculoskeletal: No erythema, Swelling (Bilateral leg) Integumentary: No erythema, No cyanosis Neurological: Normal speech, Normal strength at 5/5 x4 extr Lymphatics: No axilla or inguinal lymphadenopathy - Studies Laboratory Data (last 24 hrs) 04/06/22 15:55: PT 20.6 H, INR 1.85, APTT 39.0 H 04/06/22 14:21: WBC 6.50, Hgb 8.8 L, Hct 26.2 L, Plt Count 134 L 04/06/22 13:22: Sodium 133 L, Potassium 2.9 L*, BUN 4 L, Creatinine 0.53 L, Glucose 130 H, Total Bilirubin 3.6 H, AST 84 H, ALT 33, Alkaline Phosphatase 157 H, Lipase 53 L Assessment and Plan - Problems (Diagnosis) (1) Decubitus ulcer, stage III Current Visit: Yes Status: Acute (2) Alcoholic cirrhosis of liver with ascites Current Visit: No Status: Acute (3) Anemia Current Visit: Yes Status: Acute - Plan Admit patient to the medical floor. Patient given 250 mils normal saline bolus. We will avoid more IV fluid given ascites and third spacing from liver cirrhosis. We will treat with broad-spectrum antibiotics. General surgery consulted to evaluate the decubitus ulcer. Follow cultures. Monitor H&H and transfuse as needed for hemoglobin less than 7. Spironolactone for liver cirrhosis. Ammonia is moderately elevated but patient's mental status is clear. Lactulose for hyperammonemia. - Advance Directives Does patient have a Living Will: No Does patient have a Durable POA for Healthcare: No
[2022-04-06] MEDS ORDERED: ONDANSETRON 4 MG/2 ML VIAL IV PRN (21:07)
[2022-04-06] MEDS: CEFEPIME 1 GM in NA CHLORIDE 0.9% 100 ML IV SCH (21:07)
[2022-04-06] MEDS: NA CHLORIDE 0.9% 1,000 ML IV SCH (21:07)
[2022-04-06 21:14] VITALS: BMI 18.6
[2022-04-07 01:11] LABS: Hematocrit 23.3 % (36.0-45.0); Lymphocytes % 17.4 % (15.3-44.8); MCV 100.3 fL (80-100); MPV 7.5 fL (7.6-11.3); RBC Red Blood Cell Count 2.32 M/uL (3.86-4.86)
[2022-04-07 01:25] LABS: Bilirubin Total 1.9 mg/dL (0.2-1.0); Magnesium 1.5 mg/dL (1.8-2.4); Phosphorus 2.1 mg/dL (2.5-4.9); Potassium 3.6 mmol/L (3.5-5.1); Protein, Total 5.1 g/dL (6.4-8.2)
[2022-04-07 01:53] LABS: Blood Morphology Comment NOT SEEN (NOT SEEN); Platelet Estimate ADEQ; White Blood Cell Scan OK (OK)
[2022-04-07] MEDS ORDERED: POTASSIUM CL SA 10 MEQ TAB PO ONE (01:57)
[2022-04-07] MEDS ORDERED: MAGNESIUM SULFATE 1 gm IVPB 1 GM/100 ML BAG IV ONE (01:58)
[2022-04-07] MEDS ORDERED: ALBUMIN HUMAN 25% 100 ML IV ONE (02:09)
[2022-04-07] MEDS ORDERED: VANCOMYCIN 1 GM in NA CHLORIDE 0.9% 250 ML IVPB SCH (06:00)
[2022-04-07] MEDS ORDERED: VANCOMYCIN 1 GM/VIAL ONE (07:00)
[2022-04-07] MEDS ORDERED: NA CHLORIDE 0.9% 250 ML ONE (07:04)
[2022-04-07] MEDS: POTASS/SODIUM PHOSPHATE 1 PKT POWD.PACK PO SCH ×3 (08:36→10:16)
[2022-04-07] MEDS: CEFEPIME 1 GM in NA CHLORIDE 0.9% 100 ML IV SCH (08:37)
[2022-04-07] MEDS: CEFEPIME 2 GM in NA CHLORIDE 0.9% 100 ML IV SCH ×2 (09:00→18:08)
--- NOTE | 2022-04-07 13:39 | EKG ---
Test Date: 2022-04-06 Test Time: 15:16:12 Production Material Coordinator: ARTEMIO MEASUREMENT RESULTS: Intervals: Rate: 97 IA: 112 QRSD: 78 QT: 396 QTc: 502 [place]: P: 35 IA: 112 QRS: 72 T: 68 INTERPRETIVE STATEMENTS: Normal sinus rhythm Voltage criteria for left ventricular hypertrophy Prolonged QT Abnormal ECG Compared to ECG 02/24/2022 22:52:49 Left ventricular hypertrophy now present Prolonged QT interval now present Sinus tachycardia no longer present Myocardial infarct finding no longer present Electronically Signed On 04-07-22 13:37:56 CDT by Chris Valverde
[2022-04-07] MEDS: NA CHLORIDE 0.9% 1,000 ML IV SCH ×2 (17:07→23:26)
--- NOTE | 2022-04-07 17:21 | P.PN ---
Subjective Date of Service: 04/07/22 Chief Complaint: Increasing abdominal swelling. Patient states she feels better today. Blood pressure readings have improved. No recorded fever. Physical Examination - Vital Signs Temperature: 98.2 F Blood Pressure: 119/70 Pulse: 98 Respirations: 14 Pulse Ox (%): 98 - Studies Microbiology Data (last 24 hrs): 04/06/22 15:42 Blood - Blood Anaerobic Blood Culture - Final 04/06/22 13:48 Wound - Coccyx Gram Stain - Final Assessment And Plan - Current Problems (Diagnosis) (1) Decubitus ulcer, stage III Current Visit: Yes Status: Acute (2) Alcoholic cirrhosis of liver with ascites Current Visit: No Status: Acute (3) Anemia Current Visit: Yes Status: Acute - Plan Physical Exam General: Alert, In no apparent distress, Cachectic HEENT: Anicteric sclera Neck: JVD not distended Respiratory: Clear to auscultation bilaterally, Normal air movement Cardiovascular: Regular rate/rhythm, Normal S1 S2, Edema (Bilateral lower extremities) Gastrointestinal: Normal bowel sounds, No tenderness, Distended Musculoskeletal: No erythema, Swelling (Bilateral leg) Integumentary: Stage III sacral decubitus ulcer Neurological: Normal speech, Normal strength at 5/5 x4 extr Plan: Continue broad-spectrum antibiotics. Blood cultures no growth in 24 hours Will discharge if no blood culture growth for 48 hours. Wound care team seen patient for sacral decubitus ulcer dressing. Dressing with alginate and Medihoney recommended. Hemoglobin is trending down Monitor H&H and transfuse as needed for hemoglobin less than 7. Spironolactone for liver cirrhosis. Ammonia is moderately elevated but patient's mental status is clear. Lactulose for hyperammonemia. Monitor electrolytes.
[2022-04-07] MEDS: VANCOMYCIN 1 GM in NA CHLORIDE 0.9% 250 ML IVPB SCH (18:08)
[2022-04-07] MEDS: JUVEN PACKET PO SCH (20:22)
[2022-04-07] MEDS: LACTULOSE 20 GM/30 ML UCUP PO SCH (20:22)
[2022-04-07] MEDS: ENSURE ENLIVE 237 ML CAN PO SCH (20:22)
[2022-04-08] MEDS: CEFEPIME 2 GM in NA CHLORIDE 0.9% 100 ML IV SCH ×2 (00:37→09:40)
[2022-04-08 05:15] LABS: Hematocrit 24.4 % (36.0-45.0); Lymphocytes % 21.2 % (15.3-44.8); MCV 101.1 fL (80-100); MPV 7.9 fL (7.6-11.3); RBC Red Blood Cell Count 2.41 M/uL (3.86-4.86)
[2022-04-08 05:30] LABS: Albumin 2.2 g/dL (3.4-5.0); Bilirubin Total 3.4 mg/dL (0.2-1.0); Potassium 3.7 mmol/L (3.5-5.1); Protein, Total 5.1 g/dL (6.4-8.2)
[2022-04-08] MEDS: VANCOMYCIN 1 GM in NA CHLORIDE 0.9% 250 ML IVPB SCH (05:46)
[2022-04-08] MEDS ORDERED: GLUCAGON 1 MG/VIAL IM PRN (06:28)
[2022-04-08] MEDS ORDERED: D50W 25 GM/50 ML SYRINGE IV PRN (06:28)
[2022-04-08] MEDS ORDERED: INSULIN -REGULAR HUMAN 50 UNIT/0.5 ML ML SQ SCH (07:30)
[2022-04-08] MEDS ORDERED: DEXTROSE 10%-WATER 125 ML IV PRN (08:45)
--- NOTE | 2022-04-08 08:52 | P.DS ---
Admission Date: 04/06/22 Discharge Date: 04/08/22 Disposition: DC HOME/HOME HEALTH CARE Discharge Condition: FAIR Reason for Admission: Increasing abdominal swelling. - Problems (1) Decubitus ulcer, stage III Current Visit: Yes Status: Acute (2) Alcoholic cirrhosis of liver with ascites Current Visit: No Status: Acute (3) Anemia Current Visit: Yes Status: Acute (4) Severe protein-calorie malnutrition Current Visit: Yes Status: Acute Brief History of Present Illness: 36-year-old woman with a history of alcoholic liver cirrhosis presented to the emergency department with a complaint of increasing abdominal swelling and lower extremity swelling. Patient was hospitalized 1 week ago for abdominal pain and distention. Paracentesis was done and about 4 L drained. Had paracentesis done at [facility] 3 weeks ago where 5 L was drained. Here in the ED patient blood pressure noted to be soft with systolic in the 90s, lactic acid is elevated to 5. There is a concern for sepsis. Patient has a stage III decubitus ulcer which she developed during prolonged hospitalization at [facility] about 2 months ago. Sepsis protocol initiated in the ED, patient given to resume her normal saline bolus and antibiotics. Patient was admitted for further management. Hospital Course: Patient admitted to the medical floor and started on IV antibiotics for suspected sepsis. She has a sacral decubitus ulcer which looked clean. Patient was seen by wound care team who recommended Medihoney and alginate dressing. Her blood pressure was stable throughout her hospital stay. She had no fever. Her ammonia level was elevated so she was treated with lactulose. Also treated with spironolactone for liver cirrhosis. CT scan demonstrated hepatomegaly and mild ascites. She has anemia. Hemoglobin was stable around 8, no active bleeding. Patient vitals are stable and she is deemed stable for discharge. Vital Signs/Physical Exam: Temp Pulse Resp BP Pulse Ox 97.2 F 107 H 18 133/80 93 04/08/22 04:00 04/08/22 04:00 04/08/22 04:00 04/08/22 04:00 04/08/22 04:00 General: Alert, In no apparent distress, Oriented x3, Cachectic HEENT: Mucous membr. moist/pink Neck: JVD not distended Respiratory: Clear to auscultation bilaterally, Normal air movement Cardiovascular: No edema, Regular rate/rhythm, Normal S1 S2 Gastrointestinal: Normal bowel sounds, Soft and benign, No tenderness, Distended Musculoskeletal: No swelling Integumentary: No cyanosis Neurological: Normal strength at 5/5 x4 extr Laboratory Data at Discharge: WBC 4.50 K/uL (4.3-10.9) 04/08/22 04:30 Hgb 8.3 g/dL (12.0-15.0) L 04/08/22 04:30 Hct 24.4 % (36.0-45.0) L 04/08/22 04:30 Plt Count 113 K/uL (152-406) L 04/08/22 04:30 PT 20.6 SECONDS (9.5-12.5) H 04/06/22 15:55 INR 1.85 04/06/22 15:55 APTT 39.0 SECONDS (24.3-36.9) H 04/06/22 15:55 Sodium 136 mmol/L (136-145) 04/08/22 04:30 Potassium 3.7 mmol/L (3.5-5.1) 04/08/22 04:30 BUN 6 mg/dL (7-18) L 04/08/22 04:30 Creatinine 0.32 mg/dL (0.55-1.3) L 04/08/22 04:30 Glucose 101 mg/dL (74-106) 04/08/22 04:30 Phosphorus 2.1 mg/dL (2.5-4.9) L 04/07/22 01:00 Magnesium 1.5 mg/dL (1.8-2.4) L 04/07/22 01:00 Total Bilirubin 3.4 mg/dL (0.2-1.0) H 04/08/22 04:30 AST 49 U/L (15-37) H 04/08/22 04:30 ALT 21 U/L (12-78) 04/08/22 04:30 Alkaline Phosphatase 119 U/L (45-117) H 04/08/22 04:30 Lipase 53 U/L (73-393) L 04/06/22 13:22 Home Medications: ARIPiprazole [Abilify Mycite] 10 mg PO BEDTIME 02/01/22 Folic Acid 1 mg PO DAILY 02/01/22 Mvit-Mins/Folic Acid/Soy Isofl [One-A-Day Menopause Formula Tb] 1 tab PO DAILY 02/01/22 Thiamine HCl 100 mg PO DAILY 02/01/22 Propranolol [Inderal*] 20 mg PO BID tab 02/28/22 Ensure Enlive 237 ml PO BID #60 can 04/08/22 Furosemide [Lasix*] 20 mg PO DAILY #30 tab 04/08/22 Ramirez [Ramirez*] 1 pkt PO BID #60 packet 04/08/22 Lactulose 30 ml PO TID #473 ml 04/08/22 Medihoney [Wejoney Woundcare Gel*] 1 appl TOP DAILY #1 tube 04/08/22 Spironolactone [Aldactone*] 50 mg PO DAILY #30 tab 04/08/22 New Medications: Spironolactone [Aldactone*] 50 mg PO DAILY #30 tab Ensure Enlive 237 ml PO BID #60 can Ramirez [Ramirez*] 1 pkt PO BID #60 packet Lactulose 30 ml PO TID #473 ml Furosemide [Lasix*] 20 mg PO DAILY #30 tab Medihoney [Wejoney Woundcare Gel*] 1 appl TOP DAILY #1 tube Physician Discharge Instructions: Wound care: Clean with Normal saline pat dry with gauze Cavilon to perla-area. Apply Medi-ho pam. Apply Calcium alginate apply 4 x 4 gauze and foam secure with tape. Daily and PRN off-load wound. [facility]. Diet: ADA Activity: Ad homa Followup: NONE,NONE [Primary Care Provider] - Time spent managing pt's care (in minutes): 35
[2022-04-08] MEDS ORDERED: MEDIHONEY 44 ML TOPICAL TUBE TOP SCH (09:00)
[2022-04-08] MEDS ORDERED: FUROSEMIDE 20 MG TABLET PO SCH (09:00)
[2022-04-08] MEDS ORDERED: SPIRONOLACTONE 25 MG TABLET PO SCH (09:00)
[2022-04-08] MEDS: LACTULOSE 20 GM/30 ML UCUP PO SCH (09:40)
[2022-04-08] MEDS: ENSURE ENLIVE 237 ML CAN PO SCH (09:40)
[2022-04-08] MEDS: JUVEN PACKET PO SCH (09:40)
[2022-04-08 11:28] VITALS: O2SAT 100
[2022-04-08 13:47] VITALS: BP 148/88; TEMP 98.1
== END 2022-04-08 13:00 | disposition home or self-care (01) | DRG 871 ==
LOC: ER 11:41 → ERHOLD 17:06 → 4TH 20:38
PROVIDERS: ADMIT Internal Medicine; ATTEND Internal Medicine
DX: A41.9 Sepsis, unspecified organism (principal); L89.153 Pressure ulcer of sacral region, stage 3; E43 Unspecified severe protein-calorie malnutrition; L03.312 Cellulitis of back [any part except buttock and flank]; R64 Cachexia; Z68.1 Body mass index [BMI] 19.9 or less, adult; E72.20 Disorder of urea cycle metabolism, unspecified; K70.31 Alcoholic cirrhosis of liver with ascites; I10 Essential (primary) hypertension; E11.9 Type 2 diabetes mellitus without complications; D64.9 Anemia, unspecified; R16.0 Hepatomegaly, not elsewhere classified; Z88.8 Allergy status to other drugs, medicaments and biological substances; Z79.899 Other long term (current) drug therapy; Z20.822 Contact with and (suspected) exposure to COVID-19
CPT/HCPCS: 36415; 51702; 70450; 72125; 74176; 80053; 80202; 80307; 80329; 81003; 81015; 81025; 82140; 82947; 83605; 83690; 83735; 83880; 84100; 84145; 84484; 85025; 85610; 85652; 85730; 86140; 86850; 86900; 86901; 87040; 87070; 87077; 87186; 87205; 87811; 93005; 94760; 96361; 96365; 96366; 96375; 97110; 97530; 99251; 99284; 99285; J0692; J1940; J2405; J3010; J3370; J3475; J7030; J7040; J7050; P9047